=== PATIENT | male | born 1945 | race Caucasian/White ===

== ENCOUNTER 2018-02-18 11:42 | Day surgery (SDC) | payer OTHER ==
--- NOTE | 2018-02-17 13:51 | RAD REPORT ---
EXAM DESCRIPTION: RAD - Chest Pa And Lat (2 Views) - 02/17/2018 1:45 pm CLINICAL HISTORY: Hypertension COMPARISON: None. FINDINGS: The lungs are clear. The heart is mildly to moderately enlarged. Multi lead pacer/defibril lator device is present. No displaced fractures. Anterior thoracic spondylosis. IMPRESSION: Mild cardiomegaly.
[2018-02-17 14:13] LABS: Absolute Lymphocytes (CBC) 2.4 K/uL (0.7-4.9); Absolute Monocytes 0.4 K/uL (0.1-1.3); Absolute Neutrophil 4.1 K/uL (1.8-8.0); Basophils % 0.7 % (0-1.3); Eosinophils % 2.4 % (0-4.4); Hematocrit 45.5 % (39.6-49.0); Lymphocytes % 33.3 % (15.3-44.8); MCH 31.1 pg (27.0-35.0); MCV 91.8 fL (80-100); MPV 9.5 fL (7.6-11.3); Monocytes % 6.3 % (3.3-12.3); RBC Red Blood Cell Count 4.96 M/uL (4.33-5.43)
[2018-02-17 14:38] LABS: Protime INR 1.02
[2018-02-17 14:53] LABS: Urine Appearance CLEAR; Urine Bilirubin NEGATIVE (NEG); Urine Blood NEGATIVE (NEG); Urine Color YELLOW; Urine Glucose NEGATIVE (NEG); Urine Protein NEGATIVE (NEG); Urine Specific Gravity 1.015 (1.005-1.030); Urine Urobilinogen 0.2 mg/dL (0.2-1.0); Urine pH 5.5 (5.0-7.0)
[2018-02-17 14:54] LABS: Potassium 3.2 mEq/L (3.6-5.0)
[2018-02-17 15:02] LABS: Urine Microscopic Reflex NO UMIC
--- NOTE | 2018-02-18 07:00 | EKG ---
Test Date: 2018-02-17 Test Time: 13:35:33 [employer] Truck Mounted: RUDOLPH MEASUREMENT RESULTS: Intervals: Rate: 86 MO: 104 QRSD: 204 QT: 468 QTc: 560 [place]: P: 81 MO: 104 QRS: -85 T: 32 INTERPRETIVE STATEMENTS: Electronic ventricular pacemaker Compared to ECG 01/17/2016 19:42:36 No significant changes Electronically Signed On 02-18-18 07:00:08 CDT by David Whittaker
[2018-02-18] MEDS ORDERED: GENTAMICIN 80 MG/100 ML BAG 80 MG/100 ML BAG IV ONE (12:05)
[2018-02-18] MEDS ORDERED: Ringers Lactate 1,000 ML IV ONE (12:05)
[2018-02-18] MEDS ORDERED: MIDAZOLAM HCL 2 MG/2 ML INJ ONE (13:02)
[2018-02-18] MEDS ORDERED: LIDOCAINE 2% MPF 5 ML VIAL ONE (13:02)
[2018-02-18] MEDS ORDERED: PROPOFOL 200 MG/20 ML VIAL IV ONE (13:02)
[2018-02-18] MEDS ORDERED: FENTANYL CITR 100 MCG/2 ML ONE (13:02)
[2018-02-18] MEDS ORDERED: KETOROLAC 30 MG/ML INJ ONE (13:50)
== END 2018-02-18 16:09 | disposition home or self-care (01) ==
LOC: OR 11:42
PROVIDERS: ATTEND Urology
PROC: 0VT08ZZ Resection of Prostate, Via Natural or Artificial Opening Endoscopic (ICD-10-PCS; principal; 2018-02-18 13:15)
DX: N40.1 Benign prostatic hyperplasia with lower urinary tract symptoms (principal); R35.0 Frequency of micturition; Z95.0 Presence of cardiac pacemaker; N52.9 Male erectile dysfunction, unspecified
CPT/HCPCS: 36415; 52601; 71046; 80048; 81003; 85025; 85610; 85730; 86850; 86900; 86901; 87086; 87088; 88305; 93005; J1580; J2250; J3010

== ENCOUNTER 2019-11-11 09:48 | Inpatient (IN) | payer OTHER ==
--- NOTE | 2019-11-11 10:42 | RAD REPORT ---
EXAM DESCRIPTION: CT - CTHCSPWOC - 11/11/2019 10:32 am CLINICAL HISTORY: Trauma, head and neck injury. fall COMPARISON: No comparisons TECHNIQUE: Axial 5 mm thick images of the head were obtained. Axial 2 mm thick images of the cervical spine were obtained with sagittal and coronal reconstruction images generated and reviewed. All CT scans are performed using dose optimization technique as appropriate and may include automated exposure control or mA/KV adjustment according to patient size. FINDINGS: CT HEAD WITHOUT CONTRAST: No acute hemorrhage, hydrocephalus or extra-axial collection is identified.Moderate generalized brain atrophy is present with moderate periventricular and deep white matter chronic microvascular ischemi c changes.No areas of brain edema or midline shift. The paranasal sinuses and mastoids are clear.The calvarium is intact. CT CERVICAL SPINE WITHOUT CONTRAST: No fracture or subluxation.Prominent degenerative changes present mid cervical spine, ligamentous yoana cification is noted at C3-4.No prevertebral soft tissues swelling is identified. IMPRESSION: No acute intracranial or cervical spine findings.
[2019-11-11 11:29] LABS: Absolute Lymphocytes (CBC) 0.5 K/uL (0.7-4.9); Basophils % 0.2 % (0-1.3); Hematocrit 42.8 % (39.6-49.0); Lymphocytes % 5.6 % (15.3-44.8); MPV 9.2 fL (7.6-11.3); RBC Red Blood Cell Count 4.74 M/uL (4.33-5.43)
--- NOTE | 2019-11-11 11:29 | RAD REPORT ---
EXAM DESCRIPTION: RAD - Hip Left 2 View - 11/11/2019 11:20 am CLINICAL HISTORY: Multiple falls, left hip pain COMPARISON: None. FINDINGS: AP and frogleg views of the left hip were obtained. There is no fracture or dislocation. S ignificant degenerative changes are present. There is sclerotic change to the superior acetabulum wit h marginal spurring. Joint space is narrowed. There is subtle or early flattening of the left femoral head. No degenerative cystic changes confirmed. No fracture of the left hemipelvis. Lower lumbar degenerative changes are present. No soft tissue abnormality. IMPRESSION: Moderate severity left hip joint degenerative change as detailed. No fracture or acute f inding seen.
--- NOTE | 2019-11-11 11:29 | RAD REPORT ---
EXAM DESCRIPTION: RAD - Chest Single View - 11/11/2019 11:20 am CLINICAL HISTORY: Fever COMPARISON: January 2018 TECHNIQUE: AP portable chest image was obtained 1105 hours . FINDINGS: Lung volumes are low accentuating interstitial pattern. This also creates limited assessme nt of the retrocardiac left base. Pacemaker is in place. No focal consolidation seen in the right solitario g field or upper left lung field. Heart size is enlarged. Central vasculature is magnified by shallow inspiration. No measurable pleural effusion and no pneumothorax. No acute bony abnormality seen. No acute aortic findings suspected. IMPRESSION: Limited portable imaging without evidence for pneumonia or acute cardiopulmonary finding .
[2019-11-11 11:30] LABS: Protime INR 1.27
[2019-11-11 11:47] LABS: Albumin 3.9 g/dL (3.4-5.0); Bilirubin Direct 0.3 mg/dL (0-0.2); Bilirubin Total 1.2 mg/dL (0.2-1.0); CKMB Creatine Kinase MB 8.1 ng/mL (0.3-3.6); Protein, Total 6.9 g/dL (6.4-8.2); Troponin (Emerg Dept Use Only) 0.16 ng/mL (0.0-0.045)
[2019-11-11 11:49] LABS: Potassium 2.7 mmol/L (3.5-5.1)
[2019-11-11] MEDS ORDERED: KCL 20 MEQ/100 mL IVPB 20 MEQ/100 ML BAG IV ONE (12:11)
[2019-11-11] MEDS ORDERED: NA CHLORIDE 0.9% 500 ML ONE (12:11)
[2019-11-11 12:53] LABS: Urine Blood 2+ (NEG); Urine Glucose NEGATIVE (NEG); Urine Protein 2+ (NEG); Urine Specific Gravity >1.030 (1.005-1.030)
[2019-11-11 13:02] LABS: Urine Amorphous Sediment 2+ /HPF (NONE SEEN); Urine Bacteria <20 /HPF (NONE SEEN); Urine Culture Reflex Order REFLEXED
--- NOTE | 2019-11-11 13:20 | ER ---
Nurse's Notes [facility] Name: Schuyler Farris Jr Age: 74 yrs Sex: Male : 1945 Arrival Date: 11/11/2019 Time: 09:51 Bed 18 Private MD: Diagnosis: Hypokalemia;Weakness;Fall injury;Elevated troponin;Acute Renal Failure Presentation: 11/11 09:51 Presenting complaint: EMS states: Pt has had repeated falls the past few days, states ph that his knees are "giving out" causing falls, hx of magi knee replacements, lives alone, fell last night and was unable to get up, found family on floor at 0830 this morning, c/o L low back pain, describes as spasm. Transition of care: patient was not received from another setting of care. Onset of symptoms was November 11, 2019. Risk Assessment: Do you want to hurt yourself or someone else? Patient reports no desire to harm self or others. Initial Sepsis Screen: Does the patient meet any 2 criteria? No. Patient's initial sepsis screen is negative. Does the patient have a suspected source of infection? No. Patient's initial sepsis screen is negative. Care prior to arrival: Glucose check: 107. 09:51 Method Of Arrival: EMS: [facility] [place] [facility] ph 09:51 Acuity: JOSE 3 ph Historical: - Allergies: 09:57 Bactrim; ph 09:57 Tetanus Vaccines \\T\\ Toxoid; ph 09:53 Bactrim; rb1 - Home Meds: 09:53 sertraline 25 mg oral tab 1 tab once daily [Active]; labetalol 200 mg oral tab 1 tab 2 rb1 times per day [Active]; metolazone 2.5 mg oral tab 1 tab once daily [Active]; hydrochlorothiazide 25 mg oral tab 1 tab once daily [Active]; meclizine 25 mg oral tab 1 tab two times a week [Active]; baclofen 10 mg oral tab 1 tab 3 times per day [Active]; pravastatin 80 mg oral tab 1 tab once daily [Active]; tamsulosin 0.4 mg oral cp24 1 cap once daily [Active]; amlodipine-benazepril 5-20 mg oral cap 1 cap once daily [Active]; Benigno Aspirin 325 mg oral tab 1 tab once daily [Active]; - PMHx: 09:53 Hypertension; pacemaker/defibrilator; rb1 - PSHx: 09:53 Knee surgery; pacemaker; back; rb1 - Immunization history:: Adult Immunizations up to date. - Social history:: Smoking status: Patient/guardian denies using tobacco. - Ebola Screening: : Patient negative for fever greater than or equal to 101.5 degrees Fahrenheit, and additional compatible Ebola Virus Disease symptoms. Screenin:53 Abuse screen: Denies threats or abuse. Nutritional screening: No deficits noted. rb1 Tuberculosis screening: No symptoms or risk factors identified. Fall Risk Fall in past 12 months (25 points). Secondary diagnosis (15 points) had bilateral knee replacements in the past and pt. reports that both knees give him problems.. No IV (0 pts). Ambulatory Aid- None/Bed Rest/Nurse Assist (0 pts). Gait- Normal/Bed Rest/Wheelchair (0 pts) Mental Status- Oriented to own ability (0 pts). Total Pagan Fall Scale indicates Low Risk Score (25-44 pts). Fall prevention measures have been instituted. Side Rails Up X 2 Placed close to Nursing Station 1:1 attendant Assigned to Pt. Frequent Obs/Assesments occuring As available Patient and Family Educated on Fall Prevention Program and strategies. Assessment: 09:53 General: Appears in no apparent distress. comfortable, Behavior is calm, cooperative, rb1 Denies feeling ill, Pt. reports falling last night around 2200 because his knees gave out. Denies LOC or hitting his head. . Pain: Complains of pain in left low back Pain currently is 4 out of 10 on a pain scale. Quality of pain is described as spasm. Neuro: Level of Consciousness is awake, alert, obeys commands, Oriented to person, place, time, situation. Cardiovascular: Capillary refill < 3 seconds is brisk in bilateral fingers. Respiratory: Airway is patent Respiratory effort is even, unlabored, Respiratory pattern is regular, symmetrical. GI: No signs and/or symptoms were reported involving the gastrointestinal system. : No signs and/or symptoms were reported regarding the genitourinary system. Derm: Skin is pink, warm \\T\\ dry. Musculoskeletal: Range of motion: intact in all extremities. 10:53 Reassessment: Patient appears in no apparent distress at this time. No changes from rb1 previously documented assessment. 11:38 Reassessment: Patient appears in no apparent distress at this time. Patient and/or rb1 family updated on plan of care and expected duration. Pain level reassessed. Patient is alert, oriented x 3, equal unlabored respirations, skin warm/dry/pink. Pt. is slow to respond, but is A \\T\\ O x 4. Family remains at the pt. bedside. Provider aware of pt. condition. 12:35 Reassessment: Patient appears in no apparent distress at this time. No changes from rb1 previously documented assessment. 13:30 Reassessment: Patient appears in no apparent distress at this time. Pt. is resting with rb1 eyes closed, respirations even, unlabored. Call light within reach. 14:30 Reassessment: Patient appears in no apparent distress at this time. Patient and/or rb1 family updated on plan of care and expected duration. Pain level reassessed. Patient is alert, oriented x 3, equal unlabored respirations, skin warm/dry/pink. 15:19 Reassessment: Called report to LIZ Roach. Information from the [facility] was given. All [facility] questions asked and answered. 15:22 Reassessment: Called Jatinder \\Rebel\\ [phone] to inform him that his father was going [facility] upstairs to room 407. 15:29 Reassessment: Patient appears in no apparent distress at this time. No changes from rb1 previously documented assessment. Vital Signs: 09:53 BP 160 / 83; Pulse 78; Resp 19; Temp 100.2(O); Pulse Ox 96% on R/A; Weight 123.83 kg rb1 (R); Height 6 ft. 0 in. (182.88 cm) (R); Pain 4/10; 10:45 BP 127 / 85; Pulse 80; Resp 20; Temp 99.6(O); Pulse Ox 96% ; rb1 11:38 BP 141 / 76; Pulse 73; Resp 26; Temp 99.4(O); Pulse Ox 95% on R/A; rb1 12:35 BP 136 / 52; Pulse 82; Resp 22; Pulse Ox 95% on R/A; rb1 13:30 BP 132 / 81; Pulse 79; Resp 24; Pulse Ox 96% on R/A; rb1 14:30 BP 149 / 71; Pulse 70; Resp 17; Pulse Ox 100% on R/A; rb1 15:30 BP 158 / 73; Pulse 75; Resp 23; Pulse Ox 96% on R/A; rb1 09:53 Body Mass Index 37.03 (123.83 kg, 182.88 cm) rb1 [place] Coma Score: 10:24 Eye Response: spontaneous(4). Verbal Response: oriented(5). Motor Response: obeys la1 commands(6). Total: 15. ED Course: 09:51 Patient arrived in ED. ph 09:52 Shahnaz Eugene, RN is Primary Nurse. rb1 09:53 Patient has correct armband on for positive identification. Bed in low position. Call rb1 light in reach. Side rails up X2. Pulse ox on. NIBP on. 09:53 Arm band placed on right wrist. rb1 09:56 Triage completed. ph 09:59 El Ashby [facility]C [facility] la1 09:59 Herman Byrd MD is Attending Physician. la1 10:28 Flu Sent. rb1 10:32 CT Head C Spine In Process Unspecified. EDMS 10:40 Inserted saline lock: 20 gauge in right antecubital area, using aseptic technique. rb1 Blood collected. 11:14 EKG done, by dental laboratory technician apprentice. reviewed by El EASON. at1 11:21 Chest Single View XRAY In Process Unspecified. EDMS 11:21 Hip Left 2 View XRAY In Process Unspecified. EDMS 12:45 Straight cath inserted, using sterile technique, 16 Fr. Specimen obtained. Returned rb1 anitha urine. Patient tolerated well. 13:18 Pedro Shannon MD is Hospitalizing Provider. la1 15:37 No provider procedures requiring assistance completed. rb1 15:39 Patient admitted, IV remains in place. rb1 Administered Medications: 12:15 Drug: Potassium Chloride 20 mEq Route: IV; Rate: calculated rate; Site: right rb1 antecubital; 14:10 Follow up: Response: No adverse reaction; IV Status: Completed infusion rb1 12:15 Drug: NS 0.9% 500 ml Route: IV; Rate: bolus; Site: right antecubital; rb1 12:52 Follow up: IV Status: Completed infusion rb1 Outcome: 13:19 Decision to Hospitalize by Provider. la1 15:38 Admitted to Tele accompanied by tech, via stretcher, room 407, with chart, Report rb1 called to LIZ Roach 15:38 Condition: stable 15:38 Instructed on the need for admit. 15:39 Patient left the ED. rb1 Signatures: Dispatcher [employer] EDMS Estrella Palencia, halfway house counselor EKG Tat1 El Ashby, HR OPERATIONS ADVISOR-C HR OPERATIONS ADVISOR-Cla1 Roxana Tomlinson, RN RN Shahnaz Eugene, RN RN rb1 Corrections: (The following items were deleted from the chart) 10:04 09:53 General: Appears in no apparent distress. comfortable, Behavior is calm, rb1 cooperative, Denies feeling ill, rb1 13:03 11:38 Reassessment: Patient appears in no apparent distress at this time. Patient rb1 and/or family updated on plan of care and expected duration. Pain level reassessed. Patient is alert, oriented x 3, equal unlabored respirations, skin warm/dry/pink. Family at the bedside. rb1 13: 09:53 Home Meds: sertraline oral oral; rb1 rb1 13: 09:53 Home Meds: Labetalol Oral; rb1 rb1 13: 09:53 Home Meds: metolazone oral oral; rb1 rb1 13: 09:53 Home Meds: Hydrochlorothiazide Oral; rb1 rb1 13: 09:53 Home Meds: amlodipine oral; rb1 rb1 13: 09:53 Home Meds: Meclizine Oral; rb1 rb1 13: 09:53 Home Meds: Baclofen Oral; rb1 rb1 15:38 10:40 Inserted saline lock: 22 gauge in right antecubital area, using aseptic rb1 technique. Blood collected. rb1
--- NOTE | 2019-11-11 13:20 | EDPHYS ---
Physician Documentation [facility] Name: Schuyler Farris Jr Age: 74 yrs Sex: Male : 1945 Arrival Date: 11/11/2019 Time: 09:51 Bed 18 Private MD: ED Physician Herman Byrd HPI: 11/11 10:19 This 74 yrs old Male presents to ER via EMS with complaints of Fall Injury. la1 10:19 Details of fall: The patient fell from an upright position, while standing, and struck la1 wood alejandra. Onset: The symptoms/episode began/occurred today, yesterday. 10:21 Associated injuries: The patient sustained left hip, low back area. Severity of la1 symptoms: At their worst the symptoms were moderate. The patient has experienced similar episodes in the past. Family at bedside reports that the pt has been falling a lot lately, more in the last few months but fell three times yesterday and was on the floor for multiple hours. Pt states he feels like he gets a little dizzy but mostly that he feels like "my knees just give out", pt denies pain in knees. Pt is oriented x 4 but is a little slow to respond.. Historical: - Allergies: 09:57 Bactrim; ph 09:57 Tetanus Vaccines \\T\\ Toxoid; ph 09:53 Bactrim; rb1 - Home Meds: 09:53 sertraline 25 mg oral tab 1 tab once daily [Active]; labetalol 200 mg oral tab 1 tab 2 rb1 times per day [Active]; metolazone 2.5 mg oral tab 1 tab once daily [Active]; hydrochlorothiazide 25 mg oral tab 1 tab once daily [Active]; meclizine 25 mg oral tab 1 tab two times a week [Active]; baclofen 10 mg oral tab 1 tab 3 times per day [Active]; pravastatin 80 mg oral tab 1 tab once daily [Active]; tamsulosin 0.4 mg oral cp24 1 cap once daily [Active]; amlodipine-benazepril 5-20 mg oral cap 1 cap once daily [Active]; Benigno Aspirin 325 mg oral tab 1 tab once daily [Active]; - PMHx: 09:53 Hypertension; pacemaker/defibrilator; rb1 - PSHx: 09:53 Knee surgery; pacemaker; back; rb1 - Immunization history:: Adult Immunizations up to date. - Social history:: Smoking status: Patient/guardian denies using tobacco. - Ebola Screening: : Patient negative for fever greater than or equal to 101.5 degrees Fahrenheit, and additional compatible Ebola Virus Disease symptoms. ROS: 10:23 Eyes: Negative for injury, pain, redness, and discharge, ENT: Negative for injury, la1 pain, and discharge, Neck: Negative for injury, pain, and swelling. 10:23 Cardiovascular: Negative for chest pain, palpitations, and edema, Respiratory: Negative for shortness of breath, cough, wheezing, and pleuritic chest pain, Abdomen/GI: Negative for abdominal pain, nausea, vomiting, diarrhea, and constipation. 10:23 : Negative for injury, bleeding, discharge, and swelling. 10:23 Constitutional: Positive for chills, fever. 10:23 Cardiovascular: 10:23 Back: Positive for pain at rest, of the right low back. 10:23 : 10:23 MS/extremity: Positive for pain, of the left hip. 10:23 Neuro: Positive for dizziness. Exam: 10:24 Constitutional: The patient appears alert, awake, febrile, smells of urine, la1 uncomfortable. 10:24 Head/face: Exam is negative for acute changes, chamorro signs, contusion, deformity, ecchymosis, laceration(s), raccoon eyes. 10:24 Eyes: Periorbital structures: appear normal, Pupils: equal, round, and reactive to light and accomodation, Extraocular movements: intact throughout, Nystagmus: no acute changes. 10:24 ENT: External ear(s): are unremarkable, Nose: is normal. 10:24 Neck: C-spine: no acute changes, vertebral tenderness, is not appreciated, Trachea: is midline with no obvious abnormalities, no acute changes. 10:24 Chest/axilla: Inspection: pacemaker noted. 10:24 Cardiovascular: Rate: normal, Pulses: Pulses are 3+ in right radial artery and left radial artery. 10:24 Respiratory: the patient does not display signs of respiratory distress, Respirations: normal, Breath sounds: are clear throughout, Respiratory rate: 19 10:24 Abdomen/GI: Inspection: obese Bowel sounds: normal, Palpation: abdomen is soft and non-tender, in all quadrants. 10:24 Back: pain, that is moderate, of the low back area and left low back, CVA tenderness, is absent, vertebral tenderness, is not appreciated, muscle spasm, is appreciated in the left low back. 10:24 Neuro: Orientation: to person, place, time \\T\\ situation. Mentation: able to follow commands, slow to respond, Memory: immediate memory is impaired, Cranial nerves: CN II- XII are normal as tested, Facial palsy and sensory deficits are absent. Sensation: is normal. Vital Signs: 09:53 BP 160 / 83; Pulse 78; Resp 19; Temp 100.2(O); Pulse Ox 96% on R/A; Weight 123.83 kg rb1 (R); Height 6 ft. 0 in. (182.88 cm) (R); Pain 4/10; 10:45 BP 127 / 85; Pulse 80; Resp 20; Temp 99.6(O); Pulse Ox 96% ; rb1 11:38 BP 141 / 76; Pulse 73; Resp 26; Temp 99.4(O); Pulse Ox 95% on R/A; rb1 12:35 BP 136 / 52; Pulse 82; Resp 22; Pulse Ox 95% on R/A; rb1 13:30 BP 132 / 81; Pulse 79; Resp 24; Pulse Ox 96% on R/A; rb1 14:30 BP 149 / 71; Pulse 70; Resp 17; Pulse Ox 100% on R/A; rb1 15:30 BP 158 / 73; Pulse 75; Resp 23; Pulse Ox 96% on R/A; rb1 09:53 Body Mass Index 37.03 (123.83 kg, 182.88 cm) rb1 [place] Coma Score: 10:24 Eye Response: spontaneous(4). Verbal Response: oriented(5). Motor Response: obeys la1 commands(6). Total: 15. MDM: 10:00 Patient medically screened. la1 13:17 Data reviewed: vital signs, nurses notes, EKG, radiologic studies, I have discussed the la1 patient's presentation/case with the attending Emergency Department Physician; and as a result, I will admit patient. Data interpreted: Pulse oximetry: on room air is 95 %. Interpretation: acceptable. Counseling: I had a detailed discussion with the patient and/or guardian regarding: the historical points, exam findings, and any diagnostic results supporting the discharge/admit diagnosis, lab results, the need for further work-up and treatment in the hospital. Physician consultation: Pedro Shannon MD was called at 13:17, was contacted at 13:17, regarding admission, and will see patient. 11/11 10:16 Order name: Basic Metabolic Panel; Complete Time: 12:02 11/11 10:16 Order name: Blood Culture Adult (2) 11/11 10:16 Order name: CBC with Diff 11/11 10:16 Order name: Ckmb; Complete Time: 12:02 11/11 10:16 Order name: CPK; Complete Time: 12:02 11/11 10:16 Order name: Lactate; Complete Time: 11:32 11/11 10:16 Order name: LFT's; Complete Time: 12:02 11/11 10:16 Order name: Lipase; Complete Time: 12:02 11/11 10:16 Order name: Procalcitonin; Complete Time: 12:02 11/11 10:16 Order name: Protime (+inr); Complete Time: 11:32 11/11 10:16 Order name: Ptt, Activated; Complete Time: 11:32 11/11 10:16 Order name: Troponin (emerg Dept Use Only); Complete Time: 12:02 11/11 10:16 Order name: Urine Microscopic Only; Complete Time: 13:04 11/11 10:16 Order name: Flu; Complete Time: 11:32 11/11 10:16 Order name: Accucheck; Complete Time: 11:08 11/11 10:16 Order name: Chest Single View XRAY; Complete Time: 11:32 11/11 10:16 Order name: Cardiac monitoring; Complete Time: 10:58 11/11 10:16 Order name: EKG - Nurse/Tech; Complete Time: 11:08 11/11 10:16 Order name: IV Saline Lock - Large Bore; Complete Time: 10:45 11/11 10:16 Order name: Hip Left 2 View XRAY; Complete Time: 11:32 11/11 10:20 Order name: CT Head C Spine; Complete Time: 11:05 /16 10:57 Order name: Glucose, Ancillary Testing; Complete Time: 11:05 EDVT 11/11 11:43 Order name: CBC Smear Scan EDVT 11/11 12:06 Order name: BNP ss 11/11 12:39 Order name: Urine Dipstick--Ancillary (enter results); Complete Time: 13:04 em1 11/11 13:04 Order name: Urine Culture EDVT 11/11 14:39 Order name: CONS Pharmacy Consult [facility] 11/11 10:16 Order name: Labs collected and sent; Complete Time: 10:46 [facility] 11/11 10:16 Order name: O2 Per Protocol; Complete Time: 10:28 [facility] 11/11 10:16 Order name: O2 Sat Monitoring; Complete Time: 10:28 [facility] 11/11 10:16 Order name: Urine Dipstick-Ancillary (obtain specimen); Complete Time: 12:38 [facility] 11/11 13:12 Order name: Straight Cath; Complete Time: 13:12 rb1 Administered Medications: 12:15 Drug: Potassium Chloride 20 mEq Route: IV; Rate: calculated rate; Site: right rb1 antecubital; 14:10 Follow up: Response: No adverse reaction; IV Status: Completed infusion rb1 12:15 Drug: NS 0.9% 500 ml Route: IV; Rate: bolus; Site: right antecubital; rb1 12:52 Follow up: IV Status: Completed infusion rb1 Disposition: 18:30 Co-signature as Attending Physician, Herman Byrd MD. rn Disposition: 11/11/19 13:19 Hospitalization ordered by Pedro Shannon for Inpatient Admission. Preliminary diagnosis are Hypokalemia, Weakness, Fall injury, Elevated troponin, Acute Renal Failure. - Bed requested for Telemetry/MedSurg (Inpatient). - Status is Inpatient Admission. rb1 - Condition is Stable. - Problem is new. - Symptoms are unchanged. UTI on Admission? No Signatures: Dispatcher [employer] [facility] Ita Rangel RN RN kl Nieto, Roman, MD MD rn El Ashby, SHOE DRESSER-C SHOE DRESSER-Cla1 Roxana Tomlinson RN RN ph Barber, Rebecca, RN RN rb1 Corrections: (The following items were deleted from the chart) 10:23 10:17 Head Brain Wo Cont+CT.RAD.BRZ ordered. EDVT EDVT 13: 09:53 Home Meds: sertraline oral oral; rb1 rb1 13:30 09:53 Home Meds: Labetalol Oral; rb1 rb1 13: 09:53 Home Meds: metolazone oral oral; rb1 rb1 13: 09:53 Home Meds: Hydrochlorothiazide Oral; rb1 rb1 13: 09:53 Home Meds: amlodipine oral; rb1 rb1 13: 09:53 Home Meds: Meclizine Oral; rb1 rb1 13: 09:53 Home Meds: Baclofen Oral; rb1 rb1 15:04 13:19 Hospitalization Ordered by Pedro Shannon MD for Inpatient Admission. Preliminary kl diagnosis is Hypokalemia; Weakness; Fall injury; Elevated troponin; Acute Renal Failure. Bed requested for Telemetry/MedSurg (Inpatient). Status is Inpatient Admission. Condition is Stable. Problem is new. Symptoms are unchanged. UTI on Admission? No. la1 15:39 15:04 11/11/2019 13:19 Hospitalization Ordered by Pedro Shannon MD for Inpatient rb1 Admission. Preliminary diagnosis is Hypokalemia; Weakness; Fall injury; Elevated troponin; Acute Renal Failure. Bed requested for Telemetry/MedSurg (Inpatient). Status is Inpatient Admission. Condition is Stable. Problem is new. Symptoms are unchanged. UTI on Admission? No. kl
[2019-11-11 13:24] LABS: Anisocytosis 1+; Blood Morphology Comment NOTED (NOT SEEN); Platelet Estimate DECR; Urine White Blood Cell Casts OK
[2019-11-11] MEDS ORDERED: ONDANSETRON 4 MG/2 ML VIAL IV PRN (14:35)
--- NOTE | 2019-11-11 14:40 | P.HP ---
Certification for Inpatient Patient admitted to: Observation Practitioner: I am a practitioner with admitting privileges, knowledge of patient current condition, hospital course, and medical plan of care. Services: Services provided to patient in accordance with Admission requirements found in Title 42 Section 412.3 of the Code of Federal Regulations Patient History Date of Service: 11/11/19 Reason for admission: Repeated falls History of Present Illness: Mr. Farris is 74-year-old male with a history of hypertension who was brought in by family due to repeated falls. Patient has had mechanical falls in the past. over the past 3 days, patient has had a multiple falls daily. He reported that his legs just gave out on him when he falls. He denies any prodrome. He denies any chest pain. He has had generalized weakness and 3 days of no oral intake. Patient lives alone and was found on the floor today by family . He is currently very drowsy, minimally arousable therefore history was obtained from son who is currently at bedside. Allergies sulfamethoxazole [From Bactrim] Allergy (Unverified 02/17/18 13:15) Unknown tetanus toxoid, adsorbed Allergy (Verified 02/17/18 13:15) unknown trimethoprim [From Bactrim] Allergy (Unverified 02/17/18 13:15) Unknown Home medications list reviewed: Yes (At bedside. Awaiting upload to [facility]) Home Medications: Amlodipine Besylate/Benazepril [Amlodipine-Benazepril 5-20 mg] 1 each PO [id number] 02/17/18 Labetalol HCl [Trandate] 100 mg PO BID 02/17/18 Sertraline [Zoloft] 25 mg PO DAILY 02/17/18 hydroCHLOROthiazide [Hydrodiuril] 25 mg PO DAILY 02/17/18 - Past Medical/Surgical History Diabetic: No -: Cardiomegaly -: Hypertension -: Pacemaker -: Knee replacement - Social History Smoking Status: Unknown if ever smoked Alcohol use: No CD- Drugs: No Place of Residence: Home Review of Systems is unable to be obtained (Mental status) Physical Examination - Vital Signs Blood Pressure: 160/83 Pulse: 78 Respirations: 19 Pulse Ox (%): 96 - Physical Exam General: Obese, Other (Drowsy) HEENT: Atraumatic, PERRLA Neck: Supple, Other (Large neck circumference) Respiratory: Clear to auscultation bilaterally, Diminished Cardiovascular: Normal pulses, No murmurs, Edema (Trace bilateral pitting edema) Capillary refill: <2 Seconds Gastrointestinal: Normal bowel sounds, Soft and benign, Other (Obese) Musculoskeletal: No erythema, Tenderness Integumentary: No rashes Neurological: Other (unable to evaluate. Drowsy) Lymphatics: No axilla or inguinal lymphadenopathy - Studies Laboratory Data (last 24 hrs) 11/11/19 10:45: PT 14.9 H, INR 1.27, APTT 29.2 11/11/19 10:45: WBC 8.6, Hgb 14.7, Hct 42.8, Plt Count 131 L 11/11/19 10:45: Sodium 138, Potassium 2.7 L*, BUN 23 H, Creatinine 1.34 H, Glucose 89, Total Bilirubin 1.2 H, AST 92 H, ALT 50, Alkaline Phosphatase 76, Lipase 55 L Microbiology Data (last 24 hrs): 11/11/19 10:22 Nasopharnyx Influenza Type A Antigen Screen - Final 11/11/19 10:22 Nasopharnyx Influenza Type B Antigen Screen - Final Assessment and Plan - Plan Mr. Farris is 74 y/o male who presented after he was found on the floor. patient has had repeated falls within the past 3 days. #Falls- due to generalized weakness. Denies any prodrome or LOC - CT head is unremarkable for acute intracranial pathology -PT/OT -Treat underlying etiology #Rule out acute infection-Probable UTI- UA weakly positive. Patient with low grade temp on presentation -Urine culture and blood cultures are pending. elevated procal -IV hydration -IV antibiotics pending work up -chest Xray with no evidence of acute infection. will follow closely #Acute rhabdomyolysis- after the fall, patient laid on the floor for hours, until this morning. AST elevated. - UA suggestive. Low grade temp may be 2/2 diagnosis -IV hydration -Trend CK #Hypokalemia- Replace. Check mg #Hypovolemia-poor po intake for 3 days - IV hydration -monitor clinical response #JUANCHO- prerenal azotemia 2/2 hypovolemia. Cannot rule out rhabdo as etiology - IV hydration -trend cr and avoid nephrotoxin #Thrombocytopenia- monitor. #Probably VIKTOR- check ABG to rule out CO2 retention -CPAP at night if tolerable. #Troponin elevation- he denies any chest pain. Elevation is probably due to rhabdomyolysis -Trend troponin. EKG with pace rhythm. 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 - will need outpatient follow up with his pcp. DVT ppx-lovenox Patient is full code per son at bedside. will discuss more once he is awake and able to provide more information - Advance Directives Does patient have a Living Will: No Does patient have a Durable POA for Healthcare: No - Code Status/Comfort Care Code Status Assessed: Yes (addressed with son) Code Status: Full Code
[2019-11-11 16:25] LABS: Absolute Lymphocytes (CBC) 0.5 K/uL (0.7-4.9); Basophils % 0.2 % (0-1.3); Hematocrit 40.1 % (39.6-49.0); Lymphocytes % 7.8 % (15.3-44.8); MPV 8.7 fL (7.6-11.3); RBC Red Blood Cell Count 4.46 M/uL (4.33-5.43)
[2019-11-11] MEDS: CEFTRIAXONE/SWI 1gm 1 GM/10 ML SYR IVP SCH (16:30)
[2019-11-11] MEDS: NA CHLORIDE 0.9% 1,000 ML IV SCH (16:30)
[2019-11-11 16:37] LABS: Arterial Blood Carboxyhemoglob 1.7 % (0-1.5); Blood Gas Oxyhemoglobin 91.1 % (94-97); Blood O2 Saturation 93.3 % (92-98.5)
[2019-11-11 16:46] LABS: Troponin I 0.23 ng/mL (0.0-0.045)
[2019-11-11 16:47] LABS: Magnesium 1.3 mg/dL (1.8-2.4)
[2019-11-11] MEDS ORDERED: MAGNESIUM 50% 3 GM in NA CHLORIDE 0.9% 100 ML IV ONE (18:00)
[2019-11-11] MEDS: KCL 20 MEQ/100 mL IVPB 20 MEQ/100 ML BAG IV SCH ×2 (19:25→22:15)
[2019-11-12] MEDS: KCL 20 MEQ/100 mL IVPB 20 MEQ/100 ML BAG IV SCH ×5 (00:06→15:00)
[2019-11-12 07:54] LABS: Absolute Lymphocytes (CBC) 0.8 K/uL (0.7-4.9); Basophils % 0.4 % (0-1.3); Hematocrit 39.7 % (39.6-49.0); MPV 8.8 fL (7.6-11.3); RBC Red Blood Cell Count 4.39 M/uL (4.33-5.43)
--- NOTE | 2019-11-12 08:10 | EKG ---
Test Date: 2019-11-11 Test Time: 11:08:00 Electromechanical Inspector: MIKEY MEASUREMENT RESULTS: Intervals: Rate: 81 NM: 112 QRSD: 172 QT: 452 QTc: 525 [place]: P: NM: 112 QRS: 256 T: 72 INTERPRETIVE STATEMENTS: Electronic ventricular pacemaker Compared to ECG 02/17/2018 13:35:33 No significant changes Electronically Signed On 11-12-19 08:07:39 CHEMICAL DEPENDENCY COUNSELOR by Suresh Humphries
[2019-11-12 08:39] LABS: Urine White Blood Cell Casts OK
[2019-11-12 08:40] LABS: Blood Morphology Comment NOT SEEN (NOT SEEN); Platelet Estimate ADEQ
[2019-11-12] MEDS ORDERED: POTASSIUM CL SA 10 MEQ TAB PO ONE (08:56)
[2019-11-12] MEDS: CEFTRIAXONE/SWI 1gm 1 GM/10 ML SYR IVP SCH (09:18)
[2019-11-12] MEDS: NA CHLORIDE 0.9% 1,000 ML IV SCH ×3 (09:23→19:00)
--- NOTE | 2019-11-12 10:33 | P.PN ---
Subjective Date of Service: 11/12/19 Chief Complaint: Repeated falls Patient was seen and examined at bedside. He is more awake, slept with CPAP overnight. Now with rigors and chills Physical Examination - Vital Signs Temperature: 97.9 F Blood Pressure: 151/76 Pulse: 58 Respirations: 20 Pulse Ox (%): 97 - Physical Exam General: Alert, Mild distress, Obese HEENT: Atraumatic, Normocephalic, Other (Large neck circumference) Neck: Supple Respiratory: Diminished, Inspiratory wheezes Cardiovascular: Regular rate/rhythm, Normal S1 S2, Edema Capillary refill: <2 Seconds Gastrointestinal: Normal bowel sounds, Non-distended, No ascites Musculoskeletal: No clubbing, No warmth Integumentary: No rashes, No breakdown Neurological: Normal speech - Studies Laboratory Data (last 24 hrs) 11/11/19 10:45: PT 14.9 H, INR 1.27, APTT 29.2 11/11/19 10:45: WBC 8.6, Hgb 14.7, Hct 42.8, Plt Count 131 L 11/11/19 10:45: Sodium 138, Potassium 2.7 L*, BUN 23 H, Creatinine 1.34 H, Glucose 89, Total Bilirubin 1.2 H, AST 92 H, ALT 50, Alkaline Phosphatase 76, Lipase 55 L Microbiology Data (last 24 hrs): 11/11/19 10:55 Blood - Blood Gram Stain - Final 11/11/19 10:45 Blood - Blood Gram Stain - Final 11/11/19 10:22 Nasopharnyx Influenza Type A Antigen Screen - Final 11/11/19 10:22 Nasopharnyx Influenza Type B Antigen Screen - Final Microbiology 11/11/19 10:55 Blood - Blood Gram Stain - Final 11/11/19 10:45 Blood - Blood Gram Stain - Final 11/11/19 10:22 Nasopharnyx Influenza Type A Antigen Screen - Final 11/11/19 10:22 Nasopharnyx Influenza Type B Antigen Screen - Final 11/11/19 12:32 Clean Catch Urine [place] Count - Preliminary 11/11/19 12:32 Clean Catch Urine - Preliminary <10,000 CFU/ML. No growth. 11/11/19 10:55 Blood - Blood Aerobic Blood Culture - Preliminary 11/11/19 10:55 Blood - Blood Anaerobic Blood Culture - Preliminary No growth in 24 hours. 11/11/19 10:45 Blood - Blood Aerobic Blood Culture - Preliminary 11/11/19 10:45 Blood - Blood Anaerobic Blood Culture - Preliminary No growth in 24 hours. Medications List Reviewed: Yes Assessment And Plan - Plan Mr. Farris is 74 y/o male who presented after he was found on the floor. patient has had repeated falls within the past 3 days. #Falls- due to generalized weakness/electrolyte imbalance. Denies any prodrome or LOC - CT head is unremarkable for acute intracranial pathology -PT/OT -Treat underlying etiology #GPC in clusters bacteremia- patient with rigors this a.m. await final report of blood culture -TTE completed. - UA weakly positive. Patient with low grade temp on presentation -elevated procal -IV hydration -escalate abx. -obtain CT chest; repeat blood cx in a.m #Acute rhabdomyolysis- after the fall, patient laid on the floor for hours. AST elevated. - UA suggestive. Low grade temp may be 2/2 diagnosis -IV hydration -Trend CK #Hypokalemia- Replace. mg #Hypovolemia-poor po intake for 3 days - IV hydration -monitor clinical response #JUANCHO- prerenal azotemia 2/2 hypovolemia. Cannot rule out rhabdo as etiology - IV hydration -trend cr and avoid nephrotoxin -resolved #Thrombocytopenia- monitor. #Probably VIKTOR- -CPAP at night if tolerable. #Troponin elevation- he denies any chest pain. Elevation is probably due to rhabdomyolysis -Trend troponin. EKG with pace rhythm. -Pacemaker interrogated. -cardio on consult. 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 - will need outpatient follow up with his pcp. DVT ppx-lovenox Patient is full code per son at bedside. will discuss more once he is awake and able to provide more information
[2019-11-12] MEDS ORDERED: POTASSIUM CL 60 MEQ in NA CHLORIDE 0.9% 500 ML IV SCH (11:00)
[2019-11-12] MEDS ORDERED: VANCOMYCIN 3 GM in NA CHLORIDE 0.9% 500 ML IVPB ONE (11:00)
--- NOTE | 2019-11-12 12:14 | RAD REPORT ---
EXAM DESCRIPTION: CT - Chest Angio - 11/12/2019 11:54 am CLINICAL HISTORY: R/O Pnuthe, shortness of breath COMPARISON: Thorax W/ Con dated 03/03/2016; Chest Single View dated 11/11/2019 TECHNIQUE: Dynamically enhanced 3 mm thick images of the chest were obtained during administration o f approximately 150mL Isovue 370 IV contrast. Coronal and oblique MIP reconstruction images were gene rated and reviewed. Exam utilizes a protocol to evaluate the pulmonary arterial tree. All CT scans are performed using dose optimization technique as appropriate and may include automated exposure control or mA/KV adjustment according to patient size. FINDINGS: No pulmonary emboli are identified. Far peripheral branch assessment is limited due to res piratory motion. Suspicion for pulmonary embolic disease in these branches is very low. The aorta as imaged shows no acute or suspicious finding. Cardiomegaly is present without pericardial thickening or effusion. Left ventricular myocardial hypertrophy is suspected but CT accuracy is limi alex. Follow-up can be obtained as warranted. No focal mass or consolidation. Interstitial pattern is accentuated due to the motion. A mild interst itial edema or infiltrate could be present. Patient could have mild failure or volume overload. No pl eural effusion or pleural thickening. No mediastinal or hilar suspicious masses. No chest wall masses or abnormal axillary lymphadenopathy. Benign granulomatous type calcifications are present in the subcarinal region. IMPRESSION: No pulmonary emboli identified. No focal mass or consolidation. Respiratory motion further accentuates the interstitial pattern. Mild interstitial edema, infiltrate or failure findings are not excluded. Cardiomegaly is present along with suspected left ventricular myocardial hypertrophy.
[2019-11-12] MEDS: CEFEPIME/SWI 1gm 10 ML IV SCH ×2 (13:15→20:52)
[2019-11-12] MEDS ORDERED: MECLIZINE HCL 12.5 MG TAB PO PRN (13:16)
--- NOTE | 2019-11-12 15:14 | CON ---
Date of Consultation: 11/12/[address] Shannon on 11/11/2019. I saw the patient 11/12/2019. Reason For Consultation: Weakness, history of CHF. History Of Present Illness: Mr. Farris is 74 years old. He sees Dr. Garcia at [place]. He has castellanos d a pacemaker defibrillator for about 20 years. He has a history of hypertension and dyslipidemia. According to him, he had normal coronaries. He has never had a bypass surgery. He has idiopathic ca rdiomyopathy. He came in with just severe weakness, was found to have a potassium 2.7. His magnesiu m was low. He had a creatinine of 1.34. CPK was 3235 with MB of 8.1. His pO2 was 59, pCO2 was 27, pH of 7.56. Past Medical History: As stated above. Allergies: INCLUDE SULFA AND TETANUS. Review of Systems: Positive for falling and being unable to get up for hours. Medications: At home include Flomax, Zaroxolyn, hydrochlorothiazide, Pravachol, labetalol, and Lotre l. Physical Examination: General: He appeared to be in no acute distress, but still appeared to be weak. Vital Signs: He was in a paced rhythm. Afebrile. HEENT: Negative. Neck: Supple. No bruit, lymphadenopathy, JVD, or thyromegaly. Chest: Clear to auscultation and percussion. Cardiac: Revealed a paced rhythm. No murmurs, gallops, or rubs. Abdomen: Obese, but benign. Extremities: Revealed trace edema. No clubbing. No cyanosis. Diagnostic Data: As stated earlier. Impression And Plan: 1.Elevated CPK and MB and troponin secondary to rhabdomyolysis. 2.Elevated BNP secondary to rhabdomyolysis and chronic congestive heart failure. 3.Weakness secondary to hypokalemia and hypomagnesemia. 4.Elevated creatinine. 5.Urinary tract infection. 6.Congestive heart failure status post pacemaker, automated implantable cardioverter defibrillator. 7.Hypertension, well controlled. 8.Dyslipidemia, well controlled. Mr. Farris's medications are rather . He should not be on Zaroxolyn and hydrochlorothiazid e and Flomax. The patient will be set up for orthostatic hypotension as well as will be set up for e lectrolyte abnormalities. I would hydrate him gently. I will get an echocardiogram. I will correct his potassium and magnesium. I will stop the Zaroxolyn and hydrochlorothiazide for sure. I will di scuss the case further with the patient and with Dr. Shannon. JEREMY/ROSA Voice ID: [id number] Report ID: [id number]
[2019-11-12] MEDS ORDERED: PIPER/TAZO/NS 3.375gm 3.375 GM/100 ML BAG IVPB SCH (17:00)
[2019-11-12] MEDS: TAMSULOSIN 0.4 MG SR CAP PO SCH (20:52)
[2019-11-13] MEDS: NA CHLORIDE 0.9% 1,000 ML IV SCH ×4 (03:30→17:00)
[2019-11-13 07:26] LABS: Potassium 3.1 mmol/L (3.5-5.1)
[2019-11-13] MEDS: SERTRALINE HCL 50 MG TAB PO SCH (07:57)
[2019-11-13] MEDS: ASPIRIN 81 MG CHEWABLE TABLET PO SCH (07:58)
[2019-11-13] MEDS: CEFEPIME/SWI 1gm 10 ML IV SCH ×2 (08:00→20:30)
[2019-11-13] MEDS ORDERED: VANCOMYCIN 2 GM in NA CHLORIDE 0.9% 500 ML IVPB SCH (09:00)
[2019-11-13] MEDS ORDERED: VANCOMYCIN IVPB SCH (09:00)
[2019-11-13] MEDS ORDERED: NA CHLORIDE 0.9% IVPB SCH (09:00)
[2019-11-13 11:37] LABS: Absolute Lymphocytes (CBC) 1.4 K/uL (0.7-4.9); Basophils % 0.5 % (0-1.3); Hematocrit 41.1 % (39.6-49.0); Lymphocytes % 24.8 % (15.3-44.8); MPV 9.5 fL (7.6-11.3); RBC Red Blood Cell Count 4.52 M/uL (4.33-5.43)
[2019-11-13 11:58] LABS: Blood Morphology Comment NOT SEEN (NOT SEEN); Platelet Estimate DECR
--- NOTE | 2019-11-13 13:32 | P.PN ---
Subjective Date of Service: 11/13/19 Chief Complaint: Repeated falls Subjective: Tolerating diet, Ambulating, Improving Patient was seen and examined at bedside. He is more awake and sitting on the chair. Denies any pain/new symptom. Physical Examination - Vital Signs Temperature: 97.5 F Blood Pressure: 148/62 Pulse: 62 Respirations: 20 Pulse Ox (%): 96 - Physical Exam General: Alert, In no apparent distress, Obese HEENT: Atraumatic, PERRLA, EOMI Neck: Supple, JVD not distended Respiratory: Clear to auscultation bilaterally, Normal air movement Cardiovascular: Regular rate/rhythm, Normal S1 S2 Gastrointestinal: Normal bowel sounds, No tenderness Musculoskeletal: No tenderness Integumentary: No rashes Neurological: Normal speech, Normal tone, Normal affect Lymphatics: No axilla or inguinal lymphadenopathy - Studies Laboratory Tests 11/13/19 11/13/19 11/13/19 05:43 05:43 11:21 WBC 5.8 RBC 4.52 Hgb 13.9 Plt Count 88 L Sodium 140 Potassium 3.1 L BUN 22 H Creatinine 1.08 Calcium 8.8 Creatine Kinase 3085 H* Procalcitonin 1.79 H Microbiology Data (last 24 hrs): Microbiology 11/11/19 12:32 Clean Catch Urine [place] Count - Final 11/11/19 12:32 Clean Catch Urine - Final No growth. 11/11/19 10:55 Blood - Blood Gram Stain - Final 11/11/19 10:45 Blood - Blood Gram Stain - Final 11/11/19 10:55 Blood - Blood Aerobic Blood Culture - Preliminary 11/11/19 10:55 Blood - Blood Anaerobic Blood Culture - Preliminary 11/11/19 10:45 Blood - Blood Aerobic Blood Culture - Preliminary 11/11/19 10:45 Blood - Blood Anaerobic Blood Culture - Preliminary Medications List Reviewed: Yes Assessment And Plan - Plan Mr. Farris is 74 y/o male who presented after he was found on the floor. patient has had repeated falls within the past 3 days. #Falls- due to generalized weakness/electrolyte imbalance. Denies any prodrome or LOC - CT head is unremarkable for acute intracranial pathology -PT/OT -Treat underlying etiology #GPC in clusters bacteremia- patient had rigors, now improved with vancomycin. await final report of blood culture. source is uncertain -TTE completed. report pending - UA weakly positive. Patient with low grade temp on presentation -elevated procal -IV hydration -CT chest could not exclude infiltrates. -repeat Blood cultures pending. #Acute rhabdomyolysis- after the fall, patient laid on the floor for hours. AST elevated. - UA suggestive. Low grade temp may be 2/2 diagnosis -IV hydration -Trend CK #Hypokalemia- Replace. mg #Hypovolemia-poor po intake for 3 days - IV hydration -improved #JUANCHO- prerenal azotemia 2/2 hypovolemia. Cannot rule out rhabdo as etiology - IV hydration -trend cr and avoid nephrotoxin -resolved #Thrombocytopenia- monitor. #Probably VIKTOR- -CPAP at night if tolerable. #Troponin elevation- he denies any chest pain. Elevation is probably due to rhabdomyolysis -Trend troponin. EKG with pace rhythm. -Pacemaker interrogated. -cardio on consult. 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 - will need outpatient follow up with his pcp. DVT ppx-lovenox Patient is full code per son at bedside. will discuss more once he is awake and able to provide more information Dispo-pending repeat blood culture and further work up.
[2019-11-13] MEDS: HYDRALAZINE HCL 20 MG/ML VIAL IV PRN ×2 (16:29→23:26)
[2019-11-13] MEDS ORDERED: NA CHLORIDE 0.9% 1,000 ML IV SCH (17:00)
[2019-11-13] MEDS ORDERED: FUROSEMIDE 40 MG/4 ML VIAL IV ONE (17:00)
[2019-11-13] MEDS: TAMSULOSIN 0.4 MG SR CAP PO SCH (20:30)
[2019-11-13] MEDS ORDERED: HOME MED 1 EA UNK (Pravastatin Sodium [Pravastatin Sodium] 80 MG) PO SCH (21:00)
[2019-11-13] MEDS ORDERED: ATORVASTATIN 10 MG TAB PO SCH (21:00)
[2019-11-14] MEDS: NA CHLORIDE 0.9% 1,000 ML IV SCH ×2 (04:46→05:18)
[2019-11-14 06:28] VITALS: BMI 36.3
[2019-11-14 06:41] LABS: Absolute Lymphocytes (CBC) 1.2 K/uL (0.7-4.9); Basophils % 0.5 % (0-1.3); Hematocrit 38.7 % (39.6-49.0); Lymphocytes % 26.4 % (15.3-44.8); MPV 9.7 fL (7.6-11.3); RBC Red Blood Cell Count 4.34 M/uL (4.33-5.43)
[2019-11-14 07:23] LABS: Potassium 2.7 mmol/L (3.5-5.1)
[2019-11-14] MEDS ORDERED: POTASSIUM CL 60 MEQ in NA CHLORIDE 0.9% 500 ML IV SCH (09:00)
[2019-11-14] MEDS ORDERED: LABETALOL HCL 100 MG PO SCH (09:00)
[2019-11-14] MEDS ORDERED: AMLODIPINE 5 MG TAB PO SCH (09:00)
[2019-11-14] MEDS: ASPIRIN 81 MG CHEWABLE TABLET PO SCH (09:16)
[2019-11-14] MEDS: SERTRALINE HCL 50 MG TAB PO SCH (09:16)
[2019-11-14] MEDS ORDERED: levoFLOXacin 500 MG TAB PO SCH (10:00)
[2019-11-14] MEDS ORDERED: LABETALOL HCL 100 MG TAB PO SCH (10:00)
[2019-11-14] MEDS: KCL 20 MEQ/100 mL IVPB 20 MEQ/100 ML BAG IV SCH ×3 (10:10→15:21)
--- NOTE | 2019-11-14 11:04 | P.PN ---
Subjective Date of Service: 11/14/19 Primary Care Provider: Maris Vasquez NP([place]) ; Cardiology-Dr. Ferris([place]) Chief Complaint: Repeated falls Subjective: Improving Physical Examination - Vital Signs Temperature: 97.5 F Blood Pressure: 196/66 Pulse: 66 Respirations: 17 Pulse Ox (%): 96 - Physical Exam General: Alert, In no apparent distress, Cooperative HEENT: Atraumatic Neck: Supple Respiratory: Clear to auscultation bilaterally, Normal air movement Cardiovascular: Normal pulses, Regular rate/rhythm Neurological: Normal speech, Normal strength at 5/5 x4 extr, Normal tone, Normal affect - Studies Microbiology Data (last 24 hrs): 11/11/19 10:55 Blood - Blood Aerobic Blood Culture - Final Staphylococcus Lugd[place]ensis 11/11/19 10:55 Blood - Blood Gram Stain - Final 11/11/19 10:55 Blood - Blood Anaerobic Blood Culture - Final Staphylococcus Lugdunensis 11/11/19 10:55 Blood - Blood Gram Stain - Final 11/11/19 10:45 Blood - Blood Gram Stain - Final 11/11/19 10:45 Blood - Blood Gram Stain - Final 11/11/19 12:32 Clean Catch Urine [place] Count - Final 11/11/19 12:32 Clean Catch Urine - Final No growth. Medications List Reviewed: Yes Assessment & Plan Discharge Plan: Home Plan to discharge in: 24 Hours Physician Review Additional Text: Impression: Generalized weakness secondary to bacteremia, blood culture positive Staphylococcus Increased falls with acute rhabdomyolysis Acute renal injury with hypokalemia Thrombocytopenia Obstructive sleep apnea Hypertension Hyperlipidemia BPH Depression with anxiety Plan: Generalized weakness secondary to bacteremia, blood culture positive Staphylococcus: Blood cultures reviewed. Will adjust IV antibiotic to oral Levaquin. Continue with physical therapy. Fall precautions in place. Anticipate improvement over the next 24-48 hr. Will consult social sciences lecturer for possible home health and physical therapy at discharge. Likely home as early as tomorrow. Increased falls with acute rhabdomyolysis: CPK improvement. Will hold statin medication. Continue physical therapy. Will monitor closely. Encourage oral intake. Anticipate home with home health and physical therapy at discharge Acute renal injury with hypokalemia: Renal function improved. Electrolyte protocol in place. Medications reviewed and adjusted. Thrombocytopenia: Overall stable likely reactive from bacteremia. Obstructive sleep apnea: Continue with CPAP at night. Hypertension: Home medications reviewed and restarted. Continue monitor closely. Hyperlipidemia: Continue with medication. BPH: Continue with medication. Depression with anxiety: Continue with medication. Time Spent Managing Pts Care (In Minutes): 55
--- NOTE | 2019-11-14 12:57 | P.DS ---
Admission Date: 11/12/19 Discharge Date: 11/14/19 Primary Care Provider: Maris Vasquez NP([place]) ; Cardiology-Dr. Ferris([place]) Disposition: [facility] HOME/HOME HEALTH CARE Discharge Condition: GOOD Reason for Admission: Repeated falls Consultations: Cardiology-Dr. Whittaker Procedures: CT Head: COMPARISON: No comparisons TECHNIQUE: Axial 5 mm thick images of the head were obtained. Axial 2 mm thick images of the cervical spine were obtained with sagittal and coronal reconstruction images generated and reviewed. All CT scans are performed using dose optimization technique as appropriate and may include automated exposure control or mA/KV adjustment according to patient size. FINDINGS: CT HEAD WITHOUT CONTRAST: No acute hemorrhage, hydrocephalus or extra-axial collection is identified.Moderate generalized brain atrophy is present with moderate periventricular and deep white matter chronic microvascular ischemic changes.No areas of brain edema or midline shift. The paranasal sinuses and mastoids are clear.The calvarium is intact. CT CERVICAL SPINE WITHOUT CONTRAST: No fracture or subluxation.Prominent degenerative changes present mid cervical spine, ligamentous calcification is noted at C3-4.No prevertebral soft tissues swelling is identified. IMPRESSION: No acute intracranial or cervical spine findings. CT Chest: COMPARISON: Thorax W/ Con dated 03/03/2016; Chest Single View dated 11/11/2019 TECHNIQUE: Dynamically enhanced 3 mm thick images of the chest were obtained during administration of approximately 150mL Isovue 370 IV contrast. Coronal and oblique MIP reconstruction images were generated and reviewed. Exam utilizes a protocol to evaluate the pulmonary arterial tree. All CT scans are performed using dose optimization technique as appropriate and may include automated exposure control or mA/KV adjustment according to patient size. FINDINGS: No pulmonary emboli are identified. Far peripheral branch assessment is limited due to respiratory motion. Suspicion for pulmonary embolic disease in these branches is very low. The aorta as imaged shows no acute or suspicious finding. Cardiomegaly is present without pericardial thickening or effusion. Left ventricular myocardial hypertrophy is suspected but CT accuracy is limited. Follow-up can be obtained as warranted. No focal mass or consolidation. Interstitial pattern is accentuated due to the motion. A mild interstitial edema or infiltrate could be present. Patient could have mild failure or volume overload. No pleural effusion or pleural thickening. No mediastinal or hilar suspicious masses. No chest wall masses or abnormal axillary lymphadenopathy. Benign granulomatous type calcifications are present in the subcarinal region. IMPRESSION: No pulmonary emboli identified. No focal mass or consolidation. Respiratory motion further accentuates the interstitial pattern. Mild interstitial edema, infiltrate or failure findings are not excluded. Cardiomegaly is present along with suspected left ventricular myocardial hypertrophy. Hip Xray: COMPARISON: None. FINDINGS: AP and frogleg views of the left hip were obtained. There is no fracture or dislocation. Significant degenerative changes are present. There is sclerotic change to the superior acetabulum with marginal spurring. Joint space is narrowed. There is subtle or early flattening of the left femoral head. No degenerative cystic changes confirmed. No fracture of the left hemipelvis. Lower lumbar degenerative changes are present. No soft tissue abnormality. IMPRESSION: Moderate severity left hip joint degenerative change as detailed. No fracture or acute finding seen. Medical Problem List: Generalized weakness secondary to bacteremia, blood culture positive Staphylococcus Increased falls with acute rhabdomyolysis Acute renal injury with hypokalemia Thrombocytopenia likely reactive to infection Obstructive sleep apnea Hypertension Hyperlipidemia BPH Depression with anxiety Hypokalemia likely related to diuretic therapy Brief History of Present Illness: 74-year-old male presented to the emergency room with increased falls and fatigue. Patient was found to have rhabdomyolysis with possible infection. Patient was admitted for further evaluation and treatment. Hospital Course: Patient presented with generalized weakness. He is found to have bacteremia. Blood cultures positive for Staphylococcus. Patient has significantly improved with IV fluids and antibiotic therapy. Patient has been transition to oral Levaquin. Physical therapy has ambulated patient. Patient has done well with physical therapy. Will recommend home health and physical therapy at discharge. At discharge, Patient will continue with Levaquin 500 mg daily for total of 14 days. Patient will continue with home health and physical therapy at discharge as well. Recommend to recheck blood cultures after treatment to monitor resolution. This can be done with the help of his PCP. Fall precautions in place. Recommend follow up with his PCP in 1 week to follow up this hospitalization. As mentioned above patient found to have acute rhabdomyolysis due to increased falls. Patient received IV fluids. CPK has improved. Continue oral intake. Continue with home health and physical therapy at discharge. Recommend to recheck CPK, BMP in 1-2 weeks to monitors progress. Patient had acute renal injury upon admission with hypokalemia. This was likely related to his diuretic therapy. His diuretics were discontinued. Patient received IV fluids. This has improved. At discharge will recommend to discontinue hydrochlorothiazide and Zaroxolyn. Recommend to recheck lab-BMP in 1-2 weeks to monitor his progress. Patient with hypertension. Patient was on multiple medications including diuretic therapy. Patient seen and evaluated by Cardiology. Cardiology recommended to discontinue diuretic therapies. His overall blood pressure medications have been adjusted. Labetalol was decreased. At discharge he will continue with labetalol 100 mg twice daily and Norvasc/benazepril 5/20 mg daily. At discharge he will no longer use hydrochlorothiazide and Zaroxolyn. Patient is to monitor blood pressures daily. Recommend to maintain blood pressures less 150/80. Recommend to follow up with his alley cleaner within 1 week to follow up this hospitalization. Consider checking echocardiogram as an outpatient. Patient with hyperlipidemia. Patient will continue with his current medication pravastatin 80 mg daily. Patient with BPH. At discharge he will continue the medication Flomax 0.4 mg daily. Patient with depression with anxiety. At discharge he will continue with his medication Zoloft 25 mg daily. Other medication that had been discontinued included meclizine and baclofen. This may also contribute to weakness. Patient had hypokalemia. This was likely related to his diuretic therapy. Electrolytes replaced. Diuretic therapy have been discontinued. Vital Signs/Physical Exam: Temp Pulse Resp BP Pulse Ox 97.2 F 72 17 131/64 95 11/14/19 12:00 11/14/19 12:00 11/14/19 12:00 11/14/19 12:00 11/14/19 12:00 General: Alert, In no apparent distress, Oriented x3, Cooperative HEENT: Atraumatic Neck: Supple Respiratory: Clear to auscultation bilaterally, Normal air movement Cardiovascular: Normal pulses, Regular rate/rhythm Gastrointestinal: Normal bowel sounds, Soft and benign, Non-distended, No tenderness, No masses, No rebound, No guarding Musculoskeletal: No erythema, No tenderness, No warmth Integumentary: No tenderness/swelling, No erythema, No warmth, No cyanosis Neurological: Normal speech, Normal strength at 5/5 x4 extr, Normal tone, Normal affect Laboratory Data at Discharge: WBC 4.7 K/uL (4.3-10.9) D 11/14/19 06:16 Hgb 13.4 g/dL (13.6-17.9) L 11/14/19 06:16 Hct 38.7 % (39.6-49.0) L 11/14/19 06:16 Plt Count 95 K/uL (152-406) L 11/14/19 06:16 PT 14.9 SECONDS (9.5-12.5) H 11/11/19 10:45 INR 1.27 11/11/19 10:45 APTT 29.2 SECONDS (24.3-36.9) 11/11/19 10:45 Sodium 139 mmol/L (136-145) 11/14/19 06:16 Potassium 2.7 mmol/L (3.5-5.1) L* 11/14/19 06:16 BUN 16 mg/dL (7-18) 11/14/19 06:16 Creatinine 0.89 mg/dL (0.55-1.3) 11/14/19 06:16 Glucose 97 mg/dL (74-106) 11/14/19 06:16 Magnesium 2.1 mg/dL (1.8-2.4) 11/13/19 11:21 Total Bilirubin 1.2 mg/dL (0.2-1.0) H 11/11/19 10:45 AST 92 U/L (15-37) H 11/11/19 10:45 ALT 50 U/L (12-78) 11/11/19 10:45 Alkaline Phosphatase 76 U/L (45-117) 11/11/19 10:45 Troponin I 0.22 ng/mL (0.0-0.045) H 11/12/19 07:47 Lipase 55 U/L (73-393) L 11/11/19 10:45 Home Medications: Amlodipine Besylate/Benazepril [Amlodipine-Benazepril 5-20 mg] 1 each PO [id number] 02/17/18 Labetalol HCl [Trandate] 100 mg PO BID 02/17/18 Sertraline [Zoloft*] 25 mg PO DAILY 02/17/18 hydroCHLOROthiazide [Hydrodiuril*] 25 mg PO DAILY 02/17/18 Aspirin Chewable [Aspirin Chewable*] 81 mg PO DAILY 11/11/19 Labetalol HCl [Trandate] 200 mg PO BID 11/11/19 Pravastatin Sodium 80 mg PO BEDTIME 11/11/19 Tamsulosin HCl 0.4 mg PO BEDTIME 11/11/19 metOLazone [Zaroxolyn*] 2.5 mg PO DAILY 11/11/19 levoFLOXacin [Levaquin*] 500 mg PO DAILY #12 tab 11/14/19 New Medications: levoFLOXacin [Levaquin*] 500 mg PO DAILY #12 tab Patient Discharge Instructions: 1. Recommend follow up with his PCP in 1 week to follow up this hospitalization. 2. Patient presented with generalized weakness. He is found to have bacteremia. Blood cultures positive for Staphylococcus. Patient has significantly improved with IV fluids and antibiotic therapy. Patient has been transition to oral Levaquin. Physical therapy has ambulated patient. Patient has done well with physical therapy. Will recommend home health and physical therapy at discharge. At discharge, Patient will continue with Levaquin 500 mg daily for total of 14 days. Patient will continue with home health and physical therapy at discharge as well. Recommend to recheck blood cultures after treatment to monitor resolution. This can be done with the help of his PCP. Fall precautions in place. Recommend follow up with his PCP in 1 week to follow up this hospitalization. 3. As mentioned above patient found to have acute rhabdomyolysis due to increased falls. Patient received IV fluids. CPK has improved. Continue oral intake. Continue with home health and physical therapy at discharge. Recommend to recheck CPK, BMP in 1-2 weeks to monitors progress. 4. Patient had acute renal injury upon admission with hypokalemia. This was likely related to his diuretic therapy. His diuretics were discontinued. Patient received IV fluids. This has improved. At discharge will recommend to discontinue hydrochlorothiazide and Zaroxolyn. Recommend to recheck lab-BMP in 1-2 weeks to monitor his progress. 5. Patient with hypertension. Patient was on multiple medications including diuretic therapy. Patient seen and evaluated by Cardiology. Cardiology recommended to discontinue diuretic therapies. His overall blood pressure medications have been adjusted. Labetalol was decreased. At discharge he will continue with labetalol 100 mg twice daily and Norvasc/benazepril 5/20 mg daily. At discharge he will no longer use hydrochlorothiazide and Zaroxolyn. Patient is to monitor blood pressures daily. Recommend to maintain blood pressures less 150/80. Recommend to follow up with his alley cleaner within 1 week to follow up this hospitalization. Consider checking echocardiogram as an outpatient. 6. Patient with hyperlipidemia. Patient will continue with his current medication pravastatin 80 mg daily. 7. Patient with BPH. At discharge he will continue the medication Flomax 0.4 mg daily. 8. Patient with depression with anxiety. At discharge he will continue with his medication Zoloft 25 mg daily. 9. Other medication that had been discontinued included meclizine and baclofen. This may also contribute to weakness. 10. Patient had low potassium. This was replaced. This was likely related to his diuretic therapy. His diuretics have been discontinued. Diet: AHA Activity: Fall precautions Time spent managing pt's care (in minutes): 55
[2019-11-14 13:47] VITALS: O2SAT 95
[2019-11-14 16:18] VITALS: BP 147/76; TEMP 97.4
[2019-11-14] MEDS ORDERED: ENOXAPARIN 30 MG/0.3 ML SQ SCH (17:00)
--- NOTE | 2019-11-14 21:22 | PN ---
Date of Progress Note: 11/13/2019 Mr. Farris had been admitted with severe electrolyte abnormalities including hypokalemia, hypomagnese mela, weakness. Echocardiogram actually showed a normal ejection fraction without any wall motion abn ormalities. His electrolytes have been corrected. He is now off hydrochlorothiazide and Zaroxolyn. I would continue his present regimen. When he does go home, may be have him stay off the hydrochlor othiazide and Zaroxolyn. I am not so sure if he needs much in way of diuresis with his ejection frac tion being the way it is. He will follow up with Dr. Garcia in the near future. JEREMY/ROSA Voice ID: [id number] Report ID: [id number]
[2019-11-15] MEDS ORDERED: BENAZEPRIL 20 MG TAB PO SCH (06:00)
[2019-11-15] MEDS ORDERED: HOME MED 1 EA UNK (Amlodipine Besylate/Benazepril [Amlodipine-Benazepril 5-20 Mg] 1 EACH) PO SCH (06:00)
[2019-11-15] MEDS ORDERED: AMLODIPINE 5 MG TAB PO SCH (06:00)
[2019-11-15] MEDS ORDERED: BENAZEPRIL 10 MG TAB PO SCH (06:00)
--- NOTE | 2019-11-15 08:10 | ECHO ---
HEIGHT: 6 ft 0 in WEIGHT: 268 lb 1.6 oz DATE OF STUDY: 11/12/[address]: 2-DIMENSIONAL: YES M.MODE: YES DOPPLER: YES COLOR FLOW: YES TDS: YES PORTABLE: NO DEFINITY: NO BUBBLE STUDY: NO DIAGNOSIS: CONGESTIVE HEART FAILURE, AICD CARDIAC HISTORY: CATHERIZATION: NO SURGERY: NO PROSTHETIC VALVE: NO PACEMAKER: YES MEASUREMENTS (cm) DIASTOLIC (NORMALS) SYSTOLIC (NORMALS) IVSd 1.3 (0.6-1.2) LA Diam 4.5 (1.9-4.0) LVEF 59% LVIDd 5.1 (3.5-5.7) LVIDs 3.5 (2.0-3.5) %FS 31% LVPWd 1.4 (0.6-1.2) Ao Diam 3.3 (2.0-3.7) 2 DIMENSIONAL ASSESSMENT: RIGHT ATRIUM: NORMAL LEFT ATRIUM: DILATED RIGHT VENTRICLE: NORMAL LEFT VENTRICLE: LEFT VENTRICULAR HYPERTROPHY TRICUSPID VALVE: NORMAL MITRAL VALVE: NORMAL PULMONIC VALVE: NORMAL AORTIC VALVE: NORMAL PERICARDIAL EFFUSION: NONE AORTIC ROOT: NORMAL LEFT VENTRICULAR WALL MOTION: NORMAL DOPPLER/COLOR FLOW: NORMAL COMMENTS: LEFT ATRIAL ENLARGEMENT. LEFT VENTRICULAR HYPERTROPHY. NORMAL LEFT VENTRICULAR EJECTION FRACTION. NO THROMBUS. TECHNOLOGIST: Juanita GASTELUM
== END 2019-11-14 19:13 | disposition home health service (06) | DRG 872 ==
LOC: ER 09:48 → ERHOLD 14:35 → 4TH 15:23 → OBSVTOIN 11-12 11:05
PROVIDERS: ADMIT Hospitalist; ATTEND Hospitalist
DX: R78.81 Bacteremia (principal); M62.82 Rhabdomyolysis; N17.9 Acute kidney failure, unspecified; B95.7 Other staphylococcus as the cause of diseases classified elsewhere; E87.6 Hypokalemia; E86.1 Hypovolemia; E83.42 Hypomagnesemia; D69.6 Thrombocytopenia, unspecified; G47.33 Obstructive sleep apnea (adult) (pediatric); R79.89 Other specified abnormal findings of blood chemistry; I10 Essential (primary) hypertension; G31.84 Mild cognitive impairment of uncertain or unknown etiology; N40.0 Benign prostatic hyperplasia without lower urinary tract symptoms; Z91.81 History of falling; Z88.2 Allergy status to sulfonamides; Z88.7 Allergy status to serum and vaccine
CPT/HCPCS: 36415; 51702; 70450; 71045; 71275; 72125; 80048; 80076; 80202; 81003; 81015; 82550; 82553; 82805; 82947; 83605; 83690; 83735; 83880; 84132; 84145; 84484; 85025; 85610; 85730; 87040; 87077; 87086; 87088; 87186; 87205; 87804; 93280; 93306; 94660; 94760; 96365; 96366; 97112; 97116; 97161; 97530; 99285; G0378; J0360; J0692; J0696; J1940; J3475; J7030; J7040; Q9967

== ENCOUNTER 2019-12-06 13:38 | Inpatient (IN) | payer OTHER ==
--- NOTE | 2019-12-06 15:13 | RAD REPORT ---
EXAM DESCRIPTION: RAD - Lumbar Spine 3 Views - 12/06/2019 2:58 pm CLINICAL HISTORY: PAIN COMPARISON: No comparisons FINDINGS: A three-view lumbar spine examination was performed. Lumbar bodies are normal in height and alignment. No acute compression fractures seen. Patient has si gnificant disc space narrowing at L1-2 and L2-3 with associated large anterior and lateral endplate s purs. Spurring is seen elsewhere throughout the lumbar spine. Posterior L5-S1 disc space narrowing pr esent. There are prominent facet joint degenerative changes throughout the lumbar spine. Patient like ly has spinal stenosis and foraminal stenosis in the mid and lower lumbar spine. No pars defects iden tified. IMPRESSION: Advanced lumbar spine degenerative changes are present as detailed. No acute findings id entifiable.
--- NOTE | 2019-12-06 15:14 | RAD REPORT ---
EXAM DESCRIPTION: RAD - Shoulder Left 2 View - 12/06/2019 2:58 pm CLINICAL HISTORY: PAIN, fall, left-sided shoulder pain COMPARISON: No comparisons TECHNIQUE: Internal and external rotation views of the left shoulder were obtained. FINDINGS: There is no fracture or dislocation. AC joint degenerative changes are present with modera te-sized inferiorly directed clavicle spur. Acromial humeral joint space is narrowed. No acute or gentry picious findings. Pacemaker is seen in the left upper chest. IMPRESSION: Negative two-view left shoulder examination for fracture or dislocation. Moderate severity AC joint degenerative change.
[2019-12-06 15:23] LABS: Hematocrit 36.6 % (39.6-49.0); MPV 8.8 fL (7.6-11.3); RBC Red Blood Cell Count 4.07 M/uL (4.33-5.43)
[2019-12-06 15:37] LABS: Albumin 3.3 g/dL (3.4-5.0); Bilirubin Total 1.1 mg/dL (0.2-1.0); Potassium 3.9 mmol/L (3.5-5.1); Protein, Total 6.3 g/dL (6.4-8.2); Troponin (Emerg Dept Use Only) 0.06 ng/mL (0.0-0.045)
[2019-12-06 17:02] LABS: Albumin 3.2 g/dL (3.4-5.0); Bilirubin Direct 0.3 mg/dL (0-0.2); Bilirubin Total 1.4 mg/dL (0.2-1.0); Magnesium 1.7 mg/dL (1.8-2.4); Potassium 3.7 mmol/L (3.5-5.1); Protein, Total 6.5 g/dL (6.4-8.2)
[2019-12-06 17:04] LABS: CKMB Creatine Kinase MB 16.5 ng/mL (0.3-3.6)
[2019-12-06 17:25] LABS: Absolute Lymphocytes (CBC) 0.8 K/uL (0.7-4.9); Basophils % 0.2 % (0-1.3)
[2019-12-06] MEDS ORDERED: ACETAMINOPHEN 500 MG TAB PO PRN (17:40)
[2019-12-06] MEDS ORDERED: ALBUTEROL 2.5 MG/3 ML NEB SOL NEB PRN (17:40)
[2019-12-06] MEDS ORDERED: ONDANSETRON 4 MG/2 ML VIAL IV PRN (17:40)
--- NOTE | 2019-12-06 19:15 | ER ---
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 he sustained pain on his left flank and weakness on his right leg and pain on his left shoulder. denies LOC. Bgl -111 mg/dl. Transition of care: patient was not received from another setting of care. Onset of symptoms was December 06, 2019. Risk Assessment: Do you want to hurt yourself or someone else? Patient reports no desire to harm self or others. Initial Sepsis Screen: Does the patient meet any 2 criteria? No. Patient's initial sepsis screen is negative. Does the patient have a suspected source of infection? No. Patient's initial sepsis screen is negative. Care prior to arrival: None. 14:03 Acuity: JOSE 3 [facility] 18:35 Mechanism of Injury: Fall out of chair. Trauma event details: Injury occurred in the [address] Triage Assessment: 14:32 General: Appears in no apparent distress. comfortable, Behavior is calm, cooperative. mg2 Pain:. Trauma Activation: Not Applicable Physician: ED Physician; Name: ; Notified At: ; Arrived At: Physician: General Surgeon; Name: ; Notified At: ; Arrived At: Physician: Radiology; Name: ; Notified At: ; Arrived At: Physician: Respiratory; Name: ; Notified At: ; Arrived At: Physician: Lab; Name: ; Notified At: ; Arrived At: Historical: - Allergies: 14:32 Bactrim; mg2 14:32 Tetanus Vaccines \T\ Toxoid; mg2 - Home Meds: 14:32 amlodipine-benazepril 5-20 mg Oral cap 1 cap once daily [Active]; Benigno Aspirin 325 mg mg2 Oral tab 1 tab once daily [Active]; pravastatin 80 mg Oral tab 1 tab once daily [Active]; sertraline 25 mg Oral tab 1 tab once daily [Active]; labetalol 200 mg Oral tab 1 tab 2 times per day [Active]; 18:38 baclofen 10 mg Oral tab 1 tab 3 times per day [Active]; mg2 - PMHx: 14:32 Hypertension; pacemaker/defibrilator; Hyperlipidemia; mg2 - PSHx: 14:32 back, knee and lebow sx; mg2 - Immunization history:: Flu vaccine is up to date. - Coronavirus screen:: The patient has NOT traveled to [place], [place], or [place] in the past 14 days. Proceed with normal triage process as indicated. - Social history:: Patient/guardian denies using The patient lives with family, Smoking status: Patient denies any tobacco usage or history of. Patient/guardian denies using alcohol, street drugs, IV drugs. - Immunization history: Last tetanus immunization: none per patient choice. - Family history:: not pertinent. - Ebola Screening: : No symptoms or risks identified at this time. Screenin:35 Abuse screen: Denies threats or abuse. Denies injuries from another. Nutritional mg2 screening: No deficits noted. Tuberculosis screening: No symptoms or risk factors identified. Fall risk At risk due to prior history of falls. 18:35 Fall Risk Fall in past 12 months (25 points). IV access (20 points). Ambulatory Aid- mg2 None/Bed Rest/Nurse Assist (0 pts). Gait- Normal/Bed Rest/Wheelchair (0 pts). Primary Survey: 14:35 NO uncontrolled hemorrhage observed. A: The patient is alert. Airway: patent. mg2 Breathing/Chest: Respiratory pattern: regular, Respiratory effort: spontaneous, unlabored, Breath sounds: clear, Chest inspection: symmetrical rise and fall of the chest. Circulation: Skin color: pink. Disability Alert. Exposure/Environment: All clothing and personal items were removed. Forensic evidence collection is not deemed to be indicated at this time. Items placed in patient belonging bag. There is no evidence of uncontrolled external bleeding. No obvious injuries are noted at this time. A warming method has been applied: A warm blanket has been provided to the patient. 18:34 Reassessment Airway Airway Patent Oxygen Nasal cannula Breathing/Chest Respiratory mg2 pattern Regular Respiratory effort Spontaneous Unlabored Breath sounds Clear Circulation Heart rhythm Paced Color [place] Disability Alert. Secondary Survey: 14:35 HEENT: No deficits noted. Gastrointestinal: No deficits noted. : No signs and/or mg2 symptoms were reported regarding the genitourinary system. Musculoskeletal: Reports pain in left arm, right leg and back. Assessment: 14:36 General: Appears in no apparent distress. comfortable, Behavior is calm, cooperative. mg2 Pain: Complains of pain in back and right leg and left arm. Neuro: Level of Consciousness is awake, alert, obeys commands, Oriented to person, place, time, situation. EENT: No signs and/or symptoms were reported regarding the EENT system. Cardiovascular: Capillary refill < 3 seconds Patient's skin is warm and dry. Respiratory: Airway is patent Respiratory effort is even, unlabored, Respiratory pattern is regular, symmetrical. GI: No signs and/or symptoms were reported involving the gastrointestinal system. : No signs and/or symptoms were reported regarding the genitourinary system. Derm: Skin is intact, is healthy with good turgor, Skin is pink, warm \T\ dry. normal. Musculoskeletal: Circulation, motion, and sensation intact. Capillary refill < 3 seconds. 19:02 Reassessment: Patient appears in no apparent distress at this time. Patient and/or jb4 family updated on plan of care and expected duration. Pain level reassessed. Patient is alert, oriented x 3, equal unlabored respirations, skin warm/dry/pink. Family is at the bedisde. 19:17 Reassessment: Report called to LIZ Marroquin. Pt reports back pain 08/05, provider tea notified, see MAR for orders. 19:38 Reassessment: Patient appears in no apparent distress at this time. Patient and/or jb4 family updated on plan of care and expected duration. Pain level reassessed. Patient is alert, oriented x 3, equal unlabored respirations, skin warm/dry/pink. Pt transferred to room 201 via stretcher with photo optics technician. Vital Signs: 14:31 BP 152 / 70; Pulse 86; Resp 17; Temp 98.6; Pulse Ox 100% on R/A; Height 6 ft. 0 in. mg2 (182.88 cm); 15:50 BP 146 / 74; Pulse 85; Resp 18; Pulse Ox 98% on 3 lpm NC; mg2 19:00 BP 149 / 102; Pulse 82; Resp 20; Pulse Ox 100% on 2 lpm NC; jb4 19:30 BP 154 / 94; Pulse 92; Resp 19; Temp 99.2(O); Pulse Ox 100% on 2 lpm NC; jb4 [place] Coma Score: 15:50 Eye Response: spontaneous(4). Verbal Response: oriented(5). Motor Response: obeys mg2 commands(6). Total: 15. 19:00 Eye Response: spontaneous(4). Verbal Response: oriented(5). Motor Response: obeys jb4 commands(6). Total: 15. Trauma Score (Adult): 15:50 Eye Response: spontaneous(1); Verbal Response: oriented(1); Motor Response: obeys mg2 commands(2); Systolic BP: > 89 mm Hg(4); Respiratory Rate: 10 to 29 per min(4); Juwan Score: 15; Trauma Score: 12 19:00 Eye Response: spontaneous(1); Verbal Response: oriented(1); Motor Response: obeys jb4 commands(2); Systolic BP: > 89 mm Hg(4); Respiratory Rate: 10 to 29 per min(4); [place]elle Score: 15; Trauma Score: 12 ED Course: 14:03 Patient arrived in ED. rv 14:03 Alexei Acosta MD is Attending Physician. ma2 14:28 Román Aquino RN is Primary Nurse. mg2 14:30 Inserted saline lock: 22 gauge in right antecubital area, using aseptic technique. mg2 Blood collected. 14:31 Triage completed. mg2 14:31 Arm band placed on. mg2 14:36 Patient has correct armband on for positive identification. mg2 14:36 Patient maintains SpO2 saturation greater than 95% on room air. mg2 14:36 No provider procedures requiring assistance completed. mg2 14:57 X-ray completed. Patient tolerated procedure well. Patient moved back from radiology. jb2 16:38 Joselyn Lin MD is Hospitalizing Provider. ma2 18:36 Thermoregulation: warm blanket given to patient. mg2 19:40 Patient admitted, IV remains in place. jb4 Administered Medications: 19:31 Drug: [place] 5 mg-325 mg 1 tabs Route: PO; jb4 19:31 Follow up: Response: Medication administered at discharge. jb4 Intake: 15:50 PO: 0ml; Total: 0ml. mg2 Outcome: 16:38 Decision to Hospitalize by Provider. ma2 19:40 Admitted to Med/surg accompanied by tech, via stretcher, room 201, with oxygen, with jb4 chart, Report called to LIZ Marroquin 19:40 Condition: stable 19:40 Discharge instructions given to patient, family, Instructed on the need for admit, Demonstrated understanding of instructions. 19:42 Patient's length of stay in the Emergency Department was greater than 2 hours. PT jb4 admitted.Patient's length of stay extended due to 19:44 Patient left the ED. jb4 Signatures: Eduardo Summers2 Leonard Alicea, RN RN jb4 Alexei Acosta MD MD ma2 Román Aquino, RN RN mg2 Thad Croft RN RN rv Corrections: (The following items were deleted from the chart) 19:54 19:00 BP 149 / 102; Pulse 82bpm; Resp 20bpm; Pulse Ox 100% RA; jb4 jb4
--- NOTE | 2019-12-06 19:16 | EDPHYS ---
Physician Documentation [facility] Name: Schuyler Farris Jr Age: 74 yrs Sex: Male : 1945 Arrival Date: 12/06/2019 Time: 14:03 Bed 14 Private MD: ED Physician Alexei Acosta HPI: 12/06 14:57 This 74 yrs old Male presents to ER via EMS with complaints of lower back ma2 pain. 14:57 tripped and fell setting on lower back pain . Onset: The symptoms/episode ma2 began/occurred suddenly, 1 hour(s) ago. Severity of symptoms: At their worst the symptoms were mild in the emergency department the symptoms are unchanged. The patient has experienced similar episodes in the past. Historical: - Allergies: 14:32 Bactrim; mg2 14:32 Tetanus Vaccines \T\ Toxoid; mg2 - Home Meds: 14:32 amlodipine-benazepril 5-20 mg Oral cap 1 cap once daily [Active]; Benigno Aspirin 325 mg mg2 Oral tab 1 tab once daily [Active]; pravastatin 80 mg Oral tab 1 tab once daily [Active]; sertraline 25 mg Oral tab 1 tab once daily [Active]; labetalol 200 mg Oral tab 1 tab 2 times per day [Active]; 18:38 baclofen 10 mg Oral tab 1 tab 3 times per day [Active]; mg2 - PMHx: 14:32 Hypertension; pacemaker/defibrilator; Hyperlipidemia; mg2 - PSHx: 14:32 back, knee and lebow sx; mg2 - Immunization history:: Flu vaccine is up to date. - Coronavirus screen:: The patient has NOT traveled to [place], [place], or [place] in the past 14 days. Proceed with normal triage process as indicated. - Social history:: Patient/guardian denies using The patient lives with family, Smoking status: Patient denies any tobacco usage or history of. Patient/guardian denies using alcohol, street drugs, IV drugs. - Immunization history: Last tetanus immunization: none per patient choice. - Family history:: not pertinent. - Ebola Screening: : No symptoms or risks identified at this time. ROS: 14:57 Constitutional: Negative for fever, chills, and weight loss. ma2 14:57 All other systems are negative. Exam: 14:57 Constitutional: This is a well developed, well nourished patient who is awake, alert, ma2 and in no acute distress. Head/Face: Normocephalic, atraumatic. Eyes: Pupils equal round and reactive to light, extra-ocular motions intact. Lids and lashes normal. Conjunctiva and sclera are non-icteric and not injected. Cornea within normal limits. Periorbital areas with no swelling, redness, or edema. ENT: Nares patent. No nasal discharge, no septal abnormalities noted. Tympanic membranes are normal and external auditory canals are clear. Oropharynx with no redness, swelling, or masses, exudates, or evidence of obstruction, uvula midline. Mucous membranes moist. Neck: Trachea midline, no thyromegaly or masses palpated, and no cervical lymphadenopathy. Supple, full range of motion without nuchal rigidity, or vertebral point tenderness. No Meningismus. Chest/axilla: Normal chest wall appearance and motion. Nontender with no deformity. No lesions are appreciated. Cardiovascular: Regular rate and rhythm with a normal S1 and S2. No gallops, murmurs, or rubs. Normal PMI, no JVD. No pulse deficits. Respiratory: Lungs have equal breath sounds bilaterally, clear to auscultation and percussion. No rales, rhonchi or wheezes noted. No increased work of breathing, no retractions or nasal flaring. Abdomen/GI: Soft, non-tender, with normal bowel sounds. No distension or tympany. No guarding or rebound. No evidence of tenderness throughout. Back: No spinal tenderness. No costovertebral tenderness. Full range of motion. Skin: Warm, dry with normal turgor. Normal color with no rashes, no lesions, and no evidence of cellulitis. MS/ Extremity: Pulses equal, no cyanosis. Neurovascular intact. Full, normal range of motion. Neuro: Awake and alert, GCS 15, oriented to person, place, time, and situation. Cranial nerves II-XII grossly intact. Motor strength 5/5 in all extremities. Sensory grossly intact. Cerebellar exam normal. Normal gait. Vital Signs: 14:31 BP 152 / 70; Pulse 86; Resp 17; Temp 98.6; Pulse Ox 100% on R/A; Height 6 ft. 0 in. mg2 (182.88 cm); 15:50 BP 146 / 74; Pulse 85; Resp 18; Pulse Ox 98% on 3 lpm NC; mg2 19:00 BP 149 / 102; Pulse 82; Resp 20; Pulse Ox 100% on 2 lpm NC; jb4 19:30 BP 154 / 94; Pulse 92; Resp 19; Temp 99.2(O); Pulse Ox 100% on 2 lpm NC; jb4 [place] Coma Score: 15:50 Eye Response: spontaneous(4). Verbal Response: oriented(5). Motor Response: obeys mg2 commands(6). Total: 15. 19:00 Eye Response: spontaneous(4). Verbal Response: oriented(5). Motor Response: obeys jb4 commands(6). Total: 15. Trauma Score (Adult): 15:50 Eye Response: spontaneous(1); Verbal Response: oriented(1); Motor Response: obeys mg2 commands(2); Systolic BP: > 89 mm Hg(4); Respiratory Rate: 10 to 29 per min(4); Juwan Score: 15; Trauma Score: 12 19:00 Eye Response: spontaneous(1); Verbal Response: oriented(1); Motor Response: obeys jb4 commands(2); Systolic BP: > 89 mm Hg(4); Respiratory Rate: 10 to 29 per min(4); Juwan Score: 15; Trauma Score: 12 MDM: 14:03 Patient medically screened. ma2 14:57 Differential Diagnosis spine fracture, vs disc prolapse vs muscle sprain . Data ma2 reviewed: vital signs, nurses notes. Counseling: I had a detailed discussion with the patient and/or guardian regarding: the historical points, exam findings, and any diagnostic results supporting the discharge/admit diagnosis, the presence of at least one elevated blood pressure reading (>120/80) during this emergency department visit, radiology results, the need for outpatient follow up. Response to treatment: the patient's symptoms have markedly improved after treatment. 12/06 14:07 Order name: CMP or2 12/06 14:07 Order name: CBC w/o diff or2 12/06 14:07 Order name: Troponin (emerg Dept Use Only) [facility] 12/06 15:24 Order name: CBC without Diff; Complete Time: 15:29 EDMS 12/06 15:38 Order name: Comprehensive Metabolic Panel; Complete Time: 16:02 EDMS 12/06 15:38 Order name: Troponin (Emerg Dept Use Only); Complete Time: 16:02 EDMS 12/06 16:04 Order name: Basic Metabolic Panel or2 12/06 16:04 Order name: CBC with Diff or2 12/06 16:04 Order name: Ckmb or2 12/06 16:04 Order name: CPK or2 12/06 16:04 Order name: Hepatic Function or2 12/06 16:04 Order name: Lipase [facility] 12/06 16:04 Order name: Magnesium or2 12/06 16:04 Order name: Ptt, Activated or2 12/06 14:07 Order name: Lumbar Spine (3 Views) XRAY or2 12/06 14:07 Order name: Shoulder Left (2 View) XRAY or2 12/06 15:44 Order name: RAD; Complete Time: 16:02 EDMS 12/06 15:44 Order name: RAD; Complete Time: 16:02 EDMS 12/06 16:04 Order name: EKG; Complete Time: 16:07 [facility] 12/06 16:04 Order name: Cardiac monitoring; Complete Time: 17:04 or2 12/06 16:04 Order name: EKG - Nurse/Tech; Complete Time: 17:04 or2 12/06 18:54 Order name: PTT, Activated Partial Thromb [facility] 12/06 19:04 Order name: Basic Metabolic Panel [facility] 12/06 19:04 Order name: Liver (Hepatic) Function [facility] 12/06 19:05 Order name: Creatine Phosphokinase [facility] 12/06 19:05 Order name: CKMB Creatine Kinase MB [facility] 12/06 19:05 Order name: Magnesium [facility] 12/06 19:05 Order name: Lipase [facility] 12/06 19:08 Order name: CBC with Automated Diff [facility] 12/06 16:04 Order name: IV Saline Lock; Complete Time: 17:04 or2 12/06 16:04 Order name: Labs collected and sent; Complete Time: 17:04 or2 12/06 16:04 Order name: NPO; Complete Time: 17:04 or2 12/06 16:04 Order name: O2 Per Protocol; Complete Time: 17:04 or2 12/06 16:04 Order name: O2 Sat Monitoring; Complete Time: 17:04 ma2 Administered Medications: 19:31 Drug: [place] 5 mg-325 mg 1 tabs Route: PO; jb4 19:31 Follow up: Response: Medication administered at discharge. jb4 Disposition: 12/06/19 16:38 Hospitalization ordered by Joselyn Lin for Inpatient Admission. Preliminary diagnosis are Syncope and collapse, Low back pain, Non-ST elevation (NSTEMI) myocardial infarction. - Bed requested for Telemetry/MedSurg (Inpatient). - Status is Inpatient Admission. jb4 - Condition is Stable. - Problem is new. - Symptoms are unchanged. Signatures: Dispatcher [employer] EDMS Sol Rivers James, RN RN jb4 Alexei Acosta MD MD ma2 Román Aquino RN RN mg2 Corrections: (The following items were deleted from the chart) 18:46 16:38 Hospitalization Ordered by Joselyn Lin MD for Inpatient Admission. Preliminary bd diagnosis is Syncope and collapse; Low back pain; Non-ST elevation (NSTEMI) myocardial infarction. Bed requested for Telemetry/MedSurg (Inpatient). Status is Inpatient Admission. Condition is Stable. Problem is new. Symptoms are unchanged. ma2 19:44 18:46 12/06/2019 16:38 Hospitalization Ordered by Joselyn Lin MD for Inpatient Admission. jb4 Preliminary diagnosis is Syncope and collapse; Low back pain; Non-ST elevation (NSTEMI) myocardial infarction. Bed requested for Telemetry/MedSurg (Inpatient). Status is Inpatient Admission. Condition is Stable. Problem is new. Symptoms are unchanged. bd
[2019-12-06] MEDS ORDERED: HYDROCODONE/APAP 5/325 MG TAB ONE (19:29)
[2019-12-06] MEDS: NA CHLORIDE 0.9% 1,000 ML IV SCH (20:13)
[2019-12-06] MEDS: ENOXAPARIN 40 MG/0.4 ML SQ SCH (20:13)
[2019-12-06 20:33] LABS: Urine Appearance CLOUDY; Urine Blood 3+ (NEG); Urine Color DK YELLOW; Urine Glucose NEGATIVE (NEG); Urine Protein 2+ (NEG); Urine Specific Gravity 1.025 (1.005-1.030); Urine Urobilinogen 0.2 mg/dL (0.2-1.0); Urine pH 5.5 (5.0-7.0)
[2019-12-06 20:38] LABS: Urine Bilirubin NEGATIVE (NEG); Urine Microscopic Reflex ORDER UMIC
[2019-12-06 20:49] LABS: Urine Amorphous Sediment 2+ /HPF (NONE SEEN); Urine Bacteria >50 /HPF (NONE SEEN); Urine Coarse Granular Casts 0-5 /LPF (NONE SEEN); Urine Culture Reflex Order REFLEXED; Urine Mucus 2+ /HPF (NONE SEEN)
[2019-12-06] MEDS ORDERED: MAGNESIUM SULFATE 1 gm IVPB 1 GM/100 ML BAG IV ONE (22:55)
[2019-12-06] MEDS ORDERED: POTASSIUM CL SA 10 MEQ TAB PO ONE (22:55)
[2019-12-06] MEDS: HYDROCODONE/APAP 10/325 TAB PO PRN (23:35)
--- NOTE | 2019-12-07 03:44 | HP ---
Date of Admission: 12/06/2019 Chief Complaint: Frequent falls. History Of Present Illness: This patient is a 74-year-old male who presented for frequent fall. He is a poor historian and the information is from both the patient and his son. In brief, he has a history of frequent fall, rhabdomyolysis, acute renal failure, bacteremia, hypertension, CHF, and hyperlipidemia. This patient was admitted to our service 1 month ago for weakness and fall. He was found to have rhabdomyolysis and bacteremia at that time. He was treated with IV fluids and IV antibiotics. He got better and was discharged with oral Levaquin 500 mg daily for 2 weeks. Home health with physical therapy was ordered at that time. Family reported the patient continued to experience weakness. He fell 3 times today. He did not loss consciousness. The patient said his knee was out and then he fell. He could not get up by himself. He called 911 early this morning, but he refused to go to the ED initially. He fell another 2 times and then family brought him to the emergency room. He denied fever or chills. No nausea or vomiting. No shortness of breath or chest pain. In the ED, WBC 7, and hemoglobin 12.5. Sodium 138 and potassium 3.9. Creatinine 1.27 and total CK is 4708. He was admitted for fall and rhabdomyolysis. Past Medical History: 1. Hypertension. 2. CHF. 3. Dyslipidemia. 4. Frequent fall. 5. Rhabdomyolysis. 6. Acute renal failure. 7. Bacteremia. 8. UTI. Surgical History: Knee replacement and pacemaker placement. Allergies: THE PATIENT IS ALLERGIC TO SULFA, TETANUS TOXOID, AND BACTRIM. Home Medications: Please see home medication list. Family History: Noncontributory. Social History: The patient has been living with family, with home health. No smoking. No alcohol abuse. Physical Examination: General: Patient is awake and alert, in no acute distress. HEENT: PERRLA. EOMI. Atraumatic. Neck: Supple. No JVD. Chest: Clear to auscultation. No respiratory distress. No wheezing. Heart: Normal S1, S2. Regular rhythm and rate. Pacemaker palpable. Abdomen: Soft, nontender. Bowel sounds present. No tenderness. Extremities: No edema, no cyanosis. Neuro: Patient is awake and alert. Nonfocal. Oriented x2. Skin: No rashes or eczema. Laboratory Data: WBC 7, hemoglobin 12.5, platelet 104. Sodium 138, potassium 3.9, BUN 23, creatinine 1.31, glucose 92, magnesium 1.7, CK_ 4708. Troponin 0.06. Lipase 57. Assessment And Plan: 1. Rhabdomyolysis. This is secondary to fall. The patient has a history of fall and rhabdomyolysis. We started IV hydration. We will follow CK closely. PT was ordered. This patient is not safe to stay at home. Family requested placement to [facility]. security services manager was consulted for SNF placement. 2. Frequent fall. This patient needs intense PT and he is a candidate for SNF. 3. Acute renal insufficiency, Cr 1.31. We started IV hydration. We will closely monitor. 4. Hypertension. Blood pressure is stable. We will resume home BP medications. 5. Congestive heart failure. This appears to be compensated. No fluid retention. We will closely monitor this patient. Blood culture was ordered. security services manager will be consulted for SNF placement. Family agreed with our placement. Actually, the patient's family talked to [facility] for rehab. QT/MODL Voice ID: [id number] MTDD
[2019-12-07] MEDS: NA CHLORIDE 0.9% 1,000 ML IV SCH ×4 (04:00→20:02)
[2019-12-07] MEDS: MORPHINE 2 MG/ML SYR IV PRN ×4 (04:18→23:45)
[2019-12-07] MEDS: HYDROCODONE/APAP 10/325 TAB PO PRN ×3 (05:43→20:03)
[2019-12-07 06:25] LABS: Absolute Lymphocytes (CBC) 0.7 K/uL (0.7-4.9); Basophils % 0.2 % (0-1.3); Lymphocytes % 10.1 % (15.3-44.8); MPV 9.4 fL (7.6-11.3); RBC Red Blood Cell Count 3.87 M/uL (4.33-5.43)
[2019-12-07 06:55] LABS: Albumin 3.1 g/dL (3.4-5.0); Bilirubin Total 1.1 mg/dL (0.2-1.0); Magnesium 1.9 mg/dL (1.8-2.4); Phosphorus 2.4 mg/dL (2.5-4.9); Protein, Total 6.2 g/dL (6.4-8.2); Thyroid Stimulating Hormone 1.19 uIU/mL (0.360-3.740)
--- NOTE | 2019-12-07 07:00 | RAD REPORT ---
EXAM DESCRIPTION: RAD - Chest Single View - 12/07/2019 6:50 am CLINICAL HISTORY: Left Rib pain Chest pain. COMPARISON: Chest Single View dated 11/11/2019; Chest Pa And Lat (2 Views) dated 02/17/2018; Chest Sin gle View dated 03/03/2016; CHEST SINGLE VIEW dated 01/17/2016; Shoulder Left 2 View dated 12/06/2019 FINDINGS: Portable technique limits examination quality. The lungs are underinflated resulting in vascular crowding. Small left pleural effusion suspected. Th e heart is mildly moderately enlarged in size with multilead pacer/defibrillator device present. No d isplaced fractures.
[2019-12-07 08:48] LABS: Blood Morphology Comment NOT SEEN (NOT SEEN); Platelet Estimate DECR; Urine White Blood Cell Casts OK
--- NOTE | 2019-12-07 08:49 | EKG ---
Test Date: 2019-12-06 Test Time: 16:28:20 Track Rider: MEASUREMENT RESULTS: Intervals: Rate: 87 CO: QRSD: 200 QT: 458 QTc: 551 [place]: P: 72 CO: QRS: 229 T: 37 INTERPRETIVE STATEMENTS: Atrial-sensed ventricular-paced rhythm tracking sinus rhythm Abnormal ECG Compared to ECG 11/11/2019 11:08:00 Premature atrial complexes are no longer present Electronically Signed On 12-07-19 08:49:21 [employer] by David Whittaker
[2019-12-07] MEDS: ENOXAPARIN 40 MG/0.4 ML SQ SCH (09:00)
[2019-12-07] MEDS ORDERED: HOME MED 1 EA UNK (Amlodipine Besylate/Benazepril [Amlodipine-Benazepril 5-20 Mg] 1 EACH) PO SCH (09:00)
[2019-12-07] MEDS ORDERED: AMLODIPINE 5 MG TAB PO SCH (09:00)
[2019-12-07] MEDS: POTASS/SODIUM PHOSPHATE 1 PKT POWD.PACK PO SCH ×3 (09:13→11:48)
[2019-12-07] MEDS: ASPIRIN 81 MG CHEWABLE TABLET PO SCH (09:15)
[2019-12-07] MEDS: SERTRALINE HCL 50 MG TAB PO SCH (09:15)
[2019-12-07] MEDS: BENAZEPRIL 20 MG TAB PO SCH (09:22)
[2019-12-07] MEDS: LABETALOL HCL 100 MG TAB PO SCH ×2 (09:22→20:03)
--- NOTE | 2019-12-07 14:50 | P.PN ---
Subjective Date of Service: 12/07/19 Chief Complaint: fall Subjective: No new changes (Patient complained chornic back pain) Review of Systems General: Weakness Eyes: Unremarkable ENT: Unremarkable Respiratory: Unremarkable Cardiovascular: Unremarkable Gastrointestinal: Unremarkable Musculoskeletal: Back Pain, Leg Pain Integumentary: Unremarkable Neurological: Unremarkable Physical Examination - Vital Signs Temperature: 98.4 F Blood Pressure: 153/74 Pulse: 87 Respirations: 18 Pulse Ox (%): 97 - Physical Exam General: Alert, Oriented x2, Cooperative, Mild distress HEENT: Atraumatic, Normocephalic, PERRLA, Mucous membr. moist/pink Neck: Supple, 2+ carotid pulse no bruit Respiratory: Clear to auscultation bilaterally, Normal air movement Cardiovascular: No edema, Normal pulses, Regular rate/rhythm, Normal S1 S2 Gastrointestinal: Normal bowel sounds, Soft and benign, Non-distended, No ascites Musculoskeletal: No clubbing, No swelling Integumentary: No rashes, No breakdown Neurological: Normal strength at 5/5 x4 extr, Normal tone, Sensation intact, Cranial nerves 3-12 intact, Normal affect - Studies Laboratory Data (last 24 hrs) 12/06/19 16:15: APTT 27.5 12/06/19 16:15: Sodium 136, Potassium 3.7, BUN 23 H, Creatinine 1.31 H, Glucose 92, Magnesium 1.7 L, Total Bilirubin 1.4 H, AST 147 H, ALT 43, Alkaline Phosphatase 68, Lipase 57 L 12/06/19 16:04: WBC Cancelled, Hgb Cancelled, Hct Cancelled, Plt Count Cancelled 12/06/19 15:10: WBC 7.0, Hgb 12.5 L, Hct 36.6 L, Plt Count 104 L 12/06/19 15:10: Sodium 138, Potassium 3.9, BUN 23 H, Creatinine 1.27, Glucose 96 , Total Bilirubin 1.1 H, AST 141 H, ALT 42, Alkaline Phosphatase 67 Assessment And Plan - Plan Assessment And Plan: 1. Rhabdomyolysis. This is secondary to fall. The patient has a history of fall and rhabdomyolysis. We started IV hydration. On PT. CK 4708->2734. This patient is not safe to stay at home. Family requested placement to [facility]. manager story was consulted for SNF placement. 2. Frequent fall. This patient needs intense PT and he is a candidate for SNF. manager story was consulted. 3. Acute renal insufficiency, Cr 1.31. We started IV hydration. This is improved. Cr 1.17 4. Hypertension. Blood pressure is stable. C/W home BP meds. 5. Congestive heart failure. This appears to be compensated. No fluid retention. 6. Chronic back pain. On pain med including morphine and [place]. Be cautious in the setting of fall. We will closely monitor this patient. Urine culture pending. manager story will be consulted for SNF placement. Family agreed with our placement. Actually, the patient's family talked to [facility] for rehab. Discharge Plan: [facility] Plan to discharge in: 48 Hours
[2019-12-07 17:58] VITALS: BMI 35.5
[2019-12-07] MEDS: TAMSULOSIN 0.4 MG SR CAP PO SCH (20:03)
[2019-12-08] MEDS ORDERED: HYDROMORPHONE HCL 0.5 MG/0.5 ML INJ IV ONE (00:42)
[2019-12-08] MEDS ORDERED: dexAMETHasone 10 MG/ML VIAL IV ONE (00:42)
[2019-12-08 05:50] LABS: Absolute Lymphocytes (CBC) 0.5 K/uL (0.7-4.9); Basophils % 0.1 % (0-1.3); Hematocrit 31.6 % (39.6-49.0); Lymphocytes % 7.6 % (15.3-44.8); MPV 10.1 fL (7.6-11.3); RBC Red Blood Cell Count 3.53 M/uL (4.33-5.43)
[2019-12-08 06:02] LABS: Phosphorus 2.3 mg/dL (2.5-4.9)
[2019-12-08] MEDS ORDERED: POTASS/SODIUM PHOSPHATE 1 PKT POWD.PACK PO SCH (07:00)
[2019-12-08] MEDS: NA CHLORIDE 0.9% 1,000 ML IV SCH ×2 (07:23→18:03)
[2019-12-08 07:38] LABS: Blood Morphology Comment NOT SEEN (NOT SEEN); Platelet Estimate DECR
[2019-12-08] MEDS: SERTRALINE HCL 50 MG TAB PO SCH (09:09)
[2019-12-08] MEDS: HYDROCODONE/APAP 10/325 TAB PO PRN ×2 (09:09→16:12)
[2019-12-08] MEDS: AMLODIPINE 10 MG TAB PO SCH (09:10)
[2019-12-08] MEDS: ASPIRIN 81 MG CHEWABLE TABLET PO SCH (09:10)
[2019-12-08] MEDS: BENAZEPRIL 20 MG TAB PO SCH (09:11)
[2019-12-08] MEDS: DOCUSATE NA 100 MG CAP PO SCH ×2 (09:11→21:22)
[2019-12-08] MEDS: LABETALOL HCL 100 MG TAB PO SCH ×2 (09:11→21:22)
[2019-12-08] MEDS: POTASS/SODIUM PHOSPHATE 1 PKT POWD.PACK PO SCH ×3 (09:13→11:39)
--- NOTE | 2019-12-08 10:01 | RAD REPORT ---
EXAM DESCRIPTION: CT - Abdomen Pelvis W Contrast - 12/08/2019 8:53 am CLINICAL HISTORY: left flank pain; hematoma;, history of multiple falls COMPARISON: CT ABD PELVIS W CONTRAST dated 01/17/2016 TECHNIQUE: Biphasic, helical CT imaging of the abdomen and pelvis was performed following 100 ml non -ionic IV contrast. Axial reconstruction images were obtained to evaluate the lumbar spine. Axial, sa gittal and coronal 3 mm reformatted images generated and reviewed. Oral contrast was given. All CT scans are performed using dose optimization technique as appropriate and may include automated exposure control or mA/KV adjustment according to patient size. FINDINGS: Cardiomegaly is present without pericardial effusion. Scarring is seen in the lung bases. Liver size is normal with no focal liver lesions identified. No splenomegaly. Splenic granulomatous c alcifications are present. No pancreatic abnormality seen. Gallbladder and biliary tree are also with out suspicious finding. Symmetric renal function is seen with no hydronephrosis or suspicious renal mass. Nonobstructing lou x or parenchymal calcifications are present. In the posterior lower pole left kidney a 2.6 centimeter rounded low-density mass is present. This does not have simple cyst characteristics. Attenuation jayesh ue is 48-51 Hounsfield units. No significant change between arterial and venous phase imaging. Size o f the mass has not changed since 2016 in this would strongly support a benign etiology. In the latera l upper pole left kidney an 8 millimeter exophytic masses present isointense to slightly hypointense to the parenchyma. This was approximately 5-6 mm in 2016. No bladder abnormalities. No adrenal abnorm alities. No prostate gland or seminal vesicle abnormality seen. No dilated bowel loops or bowel wall thickening. No free air, free fluid or inflammatory stranding. No hernia, mass or bulky lymphadenopathy. Arterial calcifications are present. No acute vascular finding. Reconstruction images show prominent anterior and right lateral endplate spurring involving multiple levels. Degenerative disc space narrowing at L1-2 and L2-3. There is degenerative gas in all disc lev els. Advanced facet joint degenerative changes are present. Multilevel bony foraminal stenosis is pre sent. Canal is borderline stenotic at L4-5. No compression fractures are present. No pathologic bone process. IMPRESSION: No hydronephrosis, obstructing calculus or other acute finding identified. No suspici ous finding on this study to explain left flank pain. Patient has punctate nonobstructing peer mid or calyx calculi. A 26 millimeter exophytic low-density mass posterior lower pole left kidney has not changed since 201 6. This does not have simple cyst characteristics but stability over 3 years would strongly support a benign process. A small exophytic 8 mm mass lateral upper pole left kidney is fractionally enlarged. This can be iman tored with a follow-up study in 1 year. Extensive lumbar spine bone and disc degenerative changes are present as detailed. There is no compre ssion fracture. Patient is borderline stenotic at the lower lumbar spine and has multiple levels show ing significant foraminal encroachment.
[2019-12-08] MEDS: MORPHINE 2 MG/ML SYR IV PRN (13:34)
--- NOTE | 2019-12-08 15:36 | P.PN ---
Subjective Date of Service: 12/08/19 Chief Complaint: fall Subjective: No new changes (Pt complained chronic back pain) Review of Systems General: Weakness, Malaise Eyes: Unremarkable ENT: Unremarkable Respiratory: Unremarkable Cardiovascular: Unremarkable Gastrointestinal: Abdominal Pain, Distention Genitourinary: Unremarkable Musculoskeletal: Back Pain, Leg Pain Neurological: Unremarkable Physical Examination - Vital Signs Temperature: 97.9 F Blood Pressure: 140/73 Pulse: 68 Respirations: 18 Pulse Ox (%): 94 - Physical Exam General: Alert, Oriented x3, Cooperative, Mild distress HEENT: Atraumatic, Normocephalic, PERRLA, Mucous membr. moist/pink Neck: Supple, 2+ carotid pulse no bruit, JVD not distended Respiratory: Clear to auscultation bilaterally, Normal air movement Cardiovascular: No edema, Normal pulses, Normal S1 S2, Abnormal S3 Gastrointestinal: Hypoactive, Distended Musculoskeletal: No clubbing, No swelling, Other (tenderness on the back) Integumentary: No rashes, No breakdown Neurological: Normal tone, Sensation intact, Cranial nerves 3-12 intact - Studies Imagings Data: IMPRESSION: No hydronephrosis, obstructing calculus or other acute finding identified. No suspicious finding on this study to explain left flank pain. Patient has punctate nonobstructing peer mid or calyx calculi. A 26 millimeter exophytic low-density mass posterior lower pole left kidney has not changed since 2016. This does not have simple cyst characteristics but stability over 3 years would strongly support a benign process. A small exophytic 8 mm mass lateral upper pole left kidney is fractionally enlarged. This can be monitored with a follow-up study in 1 year. Extensive lumbar spine bone and disc degenerative changes are present as detailed. There is no compression fracture. Patient is borderline stenotic at the lower lumbar spine and has multiple levels showing significant foraminal encroachment. Assessment And Plan - Plan Assessment And Plan: 1. Rhabdomyolysis. This is secondary to fall. The patient has a history of fall and rhabdomyolysis. On IV hydration. On PT. CK 4708->2734->648. This patient is not safe to stay at home. Family requested placement to [facility]. field project manager was consulted for SNF placement. 2. Frequent fall. This patient needs intense PT and he is a candidate for SNF. field project manager was consulted. 3. Acute renal insufficiency, Cr 1.31. We started IV hydration. This is improved. Cr 1.17->1.02 4. Hypertension. Blood pressure is stable. C/W home BP meds. 5. Congestive heart failure. This appears to be compensated. No fluid retention. 6. Chronic back pain. On pain med including morphine and [place]. Be cautious in the setting of fall. 7. Kidney stones. No hydronephrosis or obstruction identified 8. Lower back pain. There is extensive lumbar spine bone and the disc degenerative changes. He is on pain medications. 9. Kidney mass. No change from previous study. This is likely benign. 10. Abdominal pain. Nurse reports abdominal pain. I believe this is due to lower back discomfort. Abdominal CT is unremarkable. We will closely monitor this patient. Urine culture pending. field project manager will be consulted for SNF placement. Family agreed with our placement. Actually, the patient's family talked to [facility] for rehab.
[2019-12-08] MEDS ORDERED: LORazepam 2 MG/ML VIAL IV ONE (19:58)
[2019-12-08] MEDS: TAMSULOSIN 0.4 MG SR CAP PO SCH (21:23)
[2019-12-09] MEDS: HYDROCODONE/APAP 10/325 TAB PO PRN (06:31)
[2019-12-09 06:38] LABS: Albumin 2.5 g/dL (3.4-5.0); Bilirubin Direct 0.3 mg/dL (0-0.2); Bilirubin Total 0.9 mg/dL (0.2-1.0); Potassium 3.8 mmol/L (3.5-5.1); Protein, Total 5.6 g/dL (6.4-8.2)
[2019-12-09] MEDS ORDERED: POTASSIUM CL SA 10 MEQ TAB PO ONE (07:30)
[2019-12-09] MEDS ORDERED: POTASSIUM PHOS IN 0.9 % NACL 15 MMOL/250 ML BAG IV ONE (08:00)
[2019-12-09 08:30] VITALS: O2SAT 93
[2019-12-09] MEDS: DOCUSATE NA 100 MG CAP PO SCH (09:09)
[2019-12-09] MEDS: SERTRALINE HCL 50 MG TAB PO SCH (09:10)
[2019-12-09] MEDS: AMLODIPINE 10 MG TAB PO SCH (09:12)
[2019-12-09] MEDS: BENAZEPRIL 20 MG TAB PO SCH (09:13)
[2019-12-09] MEDS: LABETALOL HCL 100 MG TAB PO SCH (09:15)
[2019-12-09] MEDS: ASPIRIN 81 MG CHEWABLE TABLET PO SCH (09:15)
[2019-12-09] MEDS: POTASS/SODIUM PHOSPHATE 1 PKT POWD.PACK PO SCH ×2 (09:17→10:33)
[2019-12-09 12:58] VITALS: BP 134/77; TEMP 99.5
--- NOTE | 2019-12-09 12:58 | P.PN ---
Subjective Date of Service: 12/09/19 Chief Complaint: fall Subjective: No new changes, Doing well Review of Systems General: Weakness Eyes: Unremarkable ENT: Unremarkable Respiratory: Unremarkable Cardiovascular: Unremarkable Gastrointestinal: Unremarkable Genitourinary: Unremarkable Musculoskeletal: Back Pain Integumentary: Unremarkable Neurological: Unremarkable Lymphatics: Unremarkable Physical Examination - Vital Signs Temperature: 99.5 F Blood Pressure: 134/77 Pulse: 72 Respirations: 20 Pulse Ox (%): 96 - Physical Exam General: Alert, Oriented x3, Mild distress HEENT: Atraumatic, Normocephalic, PERRLA, Mucous membr. moist/pink Neck: Supple, 2+ carotid pulse no bruit, JVD not distended Respiratory: Clear to auscultation bilaterally, Normal air movement Cardiovascular: No edema, Normal pulses, Regular rate/rhythm Gastrointestinal: Hypoactive, Soft and benign, Non-distended Musculoskeletal: No clubbing, Swelling (1+) Integumentary: No rashes, No breakdown Neurological: Normal gait, Normal speech, Normal strength at 5/5 x4 extr, Normal tone External genitalia: No edema, No lesions Assessment And Plan - Plan Assessment And Plan: 1. Rhabdomyolysis. This is secondary to fall. The patient has a history of fall and rhabdomyolysis. On IV hydration. On PT. CK 4708->2734->648->normal. This patient is not safe to stay at home. product marketing programs manager was consulted for SNF placement. 2. Frequent fall. This patient needs intense PT and he is a candidate for SNF. product marketing programs manager was consulted. 3. Acute renal insufficiency, Cr 1.31. We started IV hydration. This is improved. Cr 1.17->1.02 4. Hypertension. Blood pressure is stable. C/W home BP meds. 5. Congestive heart failure. This appears to be compensated. No fluid retention. 6. Chronic back pain. On pain med including morphine and [place]. Be cautious in the setting of fall. 7. Kidney stones. No hydronephrosis or obstruction identified 8. Lower back pain. There is extensive lumbar spine bone and disc degenerative changes. He is on pain medications. 9. Kidney mass. No change from previous study. This is likely benign. 10. Abdominal pain. Nurse reports abdominal pain. I believe this is due to lower back discomfort. Abdominal CT is unremarkable. We will closely monitor this patient. Urine culture pending. product marketing programs manager will be consulted for SNF placement. Family agreed with our placement. Waiting for placement. Discharge Plan: [facility] Plan to discharge in: 24 Hours - Code Status/Comfort Care Code Status Assessed: Yes Code Status: Full Code Time Spent Managing PTS Care (In Minutes): 25
--- NOTE | 2019-12-09 14:06 | P.DS ---
Admission Date: 12/06/19 Discharge Date: 12/09/19 Disposition: TRANSFER TO SNF - MEDICAL Discharge Condition: GOOD Reason for Admission: fall Brief History of Present Illness: This patient is a 74-year-old male who presented for frequent fall. He has a history of frequent fall, rhabdomyolysis, acute renal failure, bacteremia, hypertension, CHF, and hyperlipidemia. This patient was admitted to our service 1 month ago for weakness and fall. He was found to have rhabdomyolysis and bacteremia at that time. He was treated with IV fluids and IV antibiotics. He got better and was discharged with oral Levaquin 500 mg daily for 2 weeks. Home health with physical therapy was ordered at that time. Family reported the patient continued to experience weakness. He fell 3 times today. He did not loss consciousness. The patient said his knee was out and then he fell. He could not get up by himself. He called 911 early this morning, but he refused to go to the ED initially. He fell another 2 times and then family brought him to the emergency room. He denied fever or chills. No nausea or vomiting. No shortness of breath or chest pain. In the ED, WBC 7, and hemoglobin 12.5. Sodium 138 and potassium 3.9. Creatinine 1.27 and total CK is 4708. He was admitted for fall and rhabdomyolysis. Hospital Course: Patient presented for fall. He has a history of frequent fall, rhabdomyolysis, acute renal failure, bacteremia, hypertension, CHF, and hyperlipidemia. This patient was admitted to our service 1 month ago for weakness and fall. He was found to have rhabdomyolysis and bacteremia at that time. He fell 3 times this time on the day of admission. In the ED, WBC 7, and hemoglobin 12.5. Sodium 138 and potassium 3.9. Creatinine 1.27 and total CK is 4708. He was admitted and was treated with IV fluids. Physical therapy was consulted. He is feigning better. He remains weak. He complains of lower back pain and abdominal pain. Abdominal CT demonstrates kidney mass which was found 3 years ago. Total CK returned to normal range. His renal function is back to normal. His vitals stable. He was accepted for SNF placement. There is no indication for antibiotics use at this moment. Vital Signs/Physical Exam: Temp Pulse Resp BP Pulse Ox 99.5 F 72 20 134/77 96 12/09/19 12:58 12/09/19 12:58 12/09/19 12:58 12/09/19 12:58 12/09/19 12:58 General: Alert, Oriented x3, Cooperative HEENT: Atraumatic, Normocephalic, PERRLA, Mucous membr. moist/pink Neck: Supple, 2+ carotid pulse no bruit, JVD not distended Respiratory: Clear to auscultation bilaterally, Normal air movement Cardiovascular: No edema, Normal pulses, Regular rate/rhythm, Normal S1 S2, Abnormal S3 Gastrointestinal: Hypoactive, Soft and benign Musculoskeletal: No clubbing, Swelling Integumentary: No rashes, No breakdown Neurological: Normal strength at 5/5 x4 extr, Sensation intact, Cranial nerves 3 -12 intact, Normal reflexes 2+, Abnormal strength (3/5) Laboratory Data at Discharge: WBC 6.5 K/uL (4.3-10.9) 12/08/19 05:12 Hgb 10.8 g/dL (13.6-17.9) L 12/08/19 05:12 Hct 31.6 % (39.6-49.0) L 12/08/19 05:12 Plt Count 69 K/uL (152-406) L 12/08/19 05:12 APTT 27.5 SECONDS (24.3-36.9) 12/06/19 16:15 Sodium 135 mmol/L (136-145) L 12/09/19 05:51 Potassium 3.8 mmol/L (3.5-5.1) 12/09/19 05:51 BUN 26 mg/dL (7-18) H 12/09/19 05:51 Creatinine 0.97 mg/dL (0.55-1.3) 12/09/19 05:51 Glucose 86 mg/dL (74-106) 12/09/19 05:51 Phosphorus 2.0 mg/dL (2.5-4.9) L 12/09/19 05:51 Magnesium 1.9 mg/dL (1.8-2.4) 12/07/19 05:27 Total Bilirubin 0.9 mg/dL (0.2-1.0) 12/09/19 05:51 AST 63 U/L (15-37) H 12/09/19 05:51 ALT 36 U/L (12-78) 12/09/19 05:51 Alkaline Phosphatase 58 U/L (45-117) 12/09/19 05:51 Lipase 57 U/L (73-393) L 12/06/19 16:15 Imagings Data: Abd CT : No hydronephrosis, obstructing calculus or other acute finding identified. No suspicious finding on this study to explain left flank pain. Patient has punctate nonobstructing peer mid or calyx calculi. A 26 millimeter exophytic low-density mass posterior lower pole left kidney has not changed since 2016. This does not have simple cyst characteristics but stability over 3 years would strongly support a benign process. A small exophytic 8 mm mass lateral upper pole left kidney is fractionally enlarged. This can be monitored with a follow-up study in 1 year. Extensive lumbar spine bone and disc degenerative changes are present as detailed. There is no compression fracture. Patient is borderline stenotic at the lower lumbar spine and has multiple levels showing significant foraminal encroachment. Home Medications: Amlodipine Besylate/Benazepril [Amlodipine-Benazepril 5-20 mg] 1 each PO DAILY 02/17/18 Sertraline [Zoloft*] 25 mg PO DAILY 02/17/18 Aspirin Chewable [Aspirin Chewable*] 81 mg PO DAILY 11/11/19 Labetalol HCl [Trandate] 0.5 mg PO BID 11/11/19 Pravastatin Sodium 80 mg PO BEDTIME 11/11/19 Tamsulosin HCl 0.4 mg PO BEDTIME 11/11/19 Patient Discharge Instructions: Please be compliant with physical therapy at SNF. Please follow-up PCP in 1 week after discharge from SNF. Diet: AHA Activity: Ad kal Time spent managing pt's care (in minutes): 32
== END 2019-12-09 15:48 | DRG 558 ==
LOC: ER 13:38 → ERHOLD 17:41 → 2ND 19:24
PROVIDERS: ADMIT Internal Medicine; ATTEND Internal Medicine
DX: M62.82 Rhabdomyolysis (principal); N17.9 Acute kidney failure, unspecified; N39.0 Urinary tract infection, site not specified; I10 Essential (primary) hypertension; I50.9 Heart failure, unspecified; E78.5 Hyperlipidemia, unspecified; M54.9 Dorsalgia, unspecified; N28.89 Other specified disorders of kidney and ureter; N20.0 Calculus of kidney; R29.6 Repeated falls; Z91.81 History of falling
CPT/HCPCS: 36415; 71045; 72100; 74177; 80048; 80053; 80076; 81003; 81015; 82140; 82550; 82553; 83690; 83735; 84100; 84153; 84443; 84484; 85025; 85730; 87086; 87088; 93005; 94640; 94760; 97112; 97161; 97530; 99285; J1100; J1170; J1650; J2270; J3475; J7030; Q9967

== ENCOUNTER 2019-12-10 12:39 | Emergency (ER) | payer OTHER ==
[2019-12-10 13:07] LABS: Arterial Blood Carboxyhemoglob 1.4 % (0-1.5); Blood Gas Oxyhemoglobin 91.2 % (94-97); Blood O2 Saturation 93.2 % (92-98.5)
[2019-12-10] MEDS ORDERED: IPRATROPIUM BROM 0.5MG/2.5ML ONE (13:15)
[2019-12-10] MEDS ORDERED: LEVALBUTEROL 1.25 MG/3 ML NEB ONE (13:16)
[2019-12-10] MEDS ORDERED: NA CHLORIDE 0.9% 1,000 ML ONE (13:16)
[2019-12-10 13:22] LABS: Absolute Lymphocytes (CBC) 0.7 K/uL (0.7-4.9); Basophils % 0.2 % (0-1.3); Hematocrit 33.2 % (39.6-49.0); Lymphocytes % 7.2 % (15.3-44.8); MPV 9.7 fL (7.6-11.3); RBC Red Blood Cell Count 3.72 M/uL (4.33-5.43)
[2019-12-10 13:24] LABS: Protime INR 1.49
--- NOTE | 2019-12-10 13:32 | EKG ---
Test Date: 2019-12-10 Test Time: 12:41:05 Plasterer Helper: SWG MEASUREMENT RESULTS: Intervals: Rate: 104 NH: 130 QRSD: 36 QT: 286 QTc: 376 [place]: P: 79 NH: 130 QRS: -43 T: 112 INTERPRETIVE STATEMENTS: Atrial-sensed ventricular-paced rhythm with failure to capture the ventricle Abnormal ECG Compared to ECG 12/06/2019 16:28:20 pacemaker failure now present Electronically Signed On 12-10-19 13:32:10 TECHNICAL SUPPORT CONSULTANT by David Whittaker
--- NOTE | 2019-12-10 13:38 | RAD REPORT ---
EXAM DESCRIPTION: RAD - Chest Single View - 12/10/2019 1:31 pm CLINICAL HISTORY: COUGH COMPARISON: Chest Single View dated 12/07/2019; Chest Single View dated 11/11/2019; Abdomen Pelvis W Contrast dated 12/08/2019 TECHNIQUE: AP portable chest image was obtained 12/10/2019 1:31 pm . FINDINGS: Lungs are underinflated. Cardiomegaly is present with vascular engorgement. Interstitial m arkings are prominent. No focal right lung parenchymal finding. No focal abnormality in the upper lef t lung field. Retrocardiac left base is significantly limited by the enlarged heart, supine positioni ng and portable technique. Small left pleural effusion is not excluded though a December 08 CT study showed no pleural effusion or left base in full. No pneumothorax. No acute bony abnormality seen. No acute aortic findings suspected. Left-sided defibrillator in place. IMPRESSION: Mild CHF/volume overload suspected. Chest findings are all accentuated by shallow inspir ation, portable technique and body habitus. Retrocardiac assessment is limited by the same factors.
[2019-12-10 13:48] LABS: Platelet Estimate DECR; Urine White Blood Cell Casts OK
[2019-12-10 13:49] LABS: Albumin 2.3 g/dL (3.4-5.0); Bilirubin Direct 0.6 mg/dL (0-0.2); Bilirubin Total 1.4 mg/dL (0.2-1.0); Blood Morphology Comment NOT SEEN (NOT SEEN); Magnesium 1.9 mg/dL (1.8-2.4); Platelets, Giant FEW; Potassium 3.7 mmol/L (3.5-5.1); Protein, Total 5.6 g/dL (6.4-8.2); Thyroid Stimulating Hormone 0.5 uIU/mL (0.360-3.740); Troponin (Emerg Dept Use Only) 0.09 ng/mL (0.0-0.045)
--- NOTE | 2019-12-10 14:02 | EDPHYS ---
Physician Documentation [facility] Name: Schuyler Farris Jr Age: 74 yrs Sex: Male : 1945 Arrival Date: 12/10/2019 Time: 12:43 Bed 2 Private MD: ED Physician Gabe Khanna HPI: 12/10 12:59 This 74 yrs old Male presents to ER via EMS with complaints of ams and sob. lasha 12:59 The patient has shortness of breath at rest. Onset: The symptoms/episode began/occurred lasha 1 day(s) ago. The patient's shortness of breath has no apparent modifying factors. The patient presents with a history of irregular heart beat. Context: The symptoms occur at rest. The patient presents with trouble concentrating. Historical: - Allergies: 12:49 Bactrim; em 12:49 Tetanus Vaccines \T\ Toxoid; em - PMHx: 12:49 Hyperlipidemia; Hypertension; pacemaker/defibrilator; em - Immunization history:: Adult Immunizations up to date. - Coronavirus screen:: The patient has NOT traveled to [place] in the past 14 days. The patient has NOT had contact with known/suspected case of Coronavirus?. - Social history:: Smoking status: unknown. - Family history:: not pertinent. - Ebola Screening: : Patient negative for fever greater than or equal to 101.5 degrees Fahrenheit, and additional compatible Ebola Virus Disease symptoms Patient denies exposure to infectious person Patient denies travel to an Ebola-affected area in the 21 days before illness onset No symptoms or risks identified at this time. ROS: 12:59 Constitutional: Negative for fever, chills, and weight loss, Eyes: Negative for injury, lasha pain, redness, and discharge, ENT: Negative for injury, pain, and discharge, Neck: Negative for injury, pain, and swelling, Abdomen/GI: Negative for abdominal pain, nausea, vomiting, diarrhea, and constipation, Back: Negative for injury and pain, : Negative for injury, bleeding, discharge, and swelling, MS/Extremity: Negative for injury and deformity, Skin: Negative for injury, rash, and discoloration, Psych: Negative for depression, anxiety, suicide ideation, homicidal ideation, and hallucinations, Allergy/Immunology: Negative for hives, rash, and allergies, Endocrine: Negative for neck swelling, polydipsia, polyuria, polyphagia, and marked weight changes, Hematologic/Lymphatic: Negative for swollen nodes, abnormal bleeding, and unusual bruising. 12:59 Cardiovascular: Positive for palpitations. 12:59 Respiratory: Positive for cough, shortness of breath, at rest. Exam: 12:59 Constitutional: This is a well developed, well nourished patient who is awake, alert, lasha and in no acute distress. Head/Face: Normocephalic, atraumatic. Eyes: Pupils equal round and reactive to light, extra-ocular motions intact. Lids and lashes normal. Conjunctiva and sclera are non-icteric and not injected. Cornea within normal limits. Periorbital areas with no swelling, redness, or edema. ENT: Nares patent. No nasal discharge, no septal abnormalities noted. Tympanic membranes are normal and external auditory canals are clear. Oropharynx with no redness, swelling, or masses, exudates, or evidence of obstruction, uvula midline. Mucous membranes moist. Neck: Trachea midline, no thyromegaly or masses palpated, and no cervical lymphadenopathy. Supple, full range of motion without nuchal rigidity, or vertebral point tenderness. No Meningismus. Chest/axilla: Normal chest wall appearance and motion. Nontender with no deformity. No lesions are appreciated. Abdomen/GI: Soft, non-tender, with normal bowel sounds. No distension or tympany. No guarding or rebound. No evidence of tenderness throughout. Back: No spinal tenderness. No costovertebral tenderness. Full range of motion. Male : Normal genitalia with no discharge or lesions. Skin: Warm, dry with normal turgor. Normal color with no rashes, no lesions, and no evidence of cellulitis. MS/ Extremity: Pulses equal, no cyanosis. Neurovascular intact. Full, normal range of motion. Neuro: Awake and alert, GCS 15, oriented to person, place, time, and situation. Cranial nerves II-XII grossly intact. Motor strength 5/5 in all extremities. Sensory grossly intact. Cerebellar exam normal. Normal gait. Psych: Awake, alert, with orientation to person, place and time. Behavior, mood, and affect are within normal limits. 12:59 Cardiovascular: Rate: bradycardic, Rhythm: irregularly irregular, Pulses: Pulses are 3+ in bilateral radial, brachial, femoral, popliteal, posterior tibial and and dorsalis pedis arteries.. Heart sounds: normal, Edema: 1+ edema to level of left midcalf and right midcalf, JVD: is not appreciated. Vital Signs: 12:41 BP 133 / 57; Pulse 38; Resp 34; Temp 99.1; Pulse Ox 97% on 2 lpm NC; Pain 0/10; em 14:48 BP 142 / 86; Pulse 81; Resp 18; Pulse Ox 99% on 2 lpm NC; em 15:25 BP 98 / 58; Pulse 44; Resp 22; Pulse Ox 97% on 2 lpm NC; em 15:56 BP 118 / 65; Pulse 54; Resp 19; Pulse Ox 96% on 3 lpm NC; em 16:22 BP 155 / 85; Pulse 42; Resp 21 S; Pulse Ox 99% on BiPAP; em 17:06 BP 124 / 85; Pulse 34; Resp 24; Pulse Ox 40% BiPAP; em 17:30 BP 144 / 61; Pulse 33; Resp 20; Pulse Ox 100% on 40% BiPAP; em Juwan Coma Score: 12:41 Eye Response: spontaneous(4). Verbal Response: oriented(5). Motor Response: obeys em commands(6). Total: 15. Ventilator: 16:10 Fi02: 40%; Rate: 12min; em MDM: 12:46 Patient medically screened. [facility] 13:04 Data reviewed: vital signs, nurses notes, lab test result(s), EKG, radiologic studies. [facility] 12/10 12:47 Order name: Basic Metabolic Panel 12/10 12:47 Order name: CBC with Diff 12/10 12:47 Order name: LFT's 12/10 12:47 Order name: Magnesium [facility] 12/10 12:47 Order name: NT PRO-BNP 12/10 12:47 Order name: PT-INR lasha 12/10 12:47 Order name: Troponin (emerg Dept Use Only) [facility] 12/10 12:47 Order name: Blood Culture Adult (2) [facility] 12/10 12:47 Order name: Urine Culture [facility] 12/10 12:48 Order name: TSH 12/10 12:56 Order name: ABG [facility] 12/10 13:08 Order name: ABG Arterial Blood Gas; Complete Time: 13:49 EDMS 12/10 13:24 Order name: CBC with Automated Diff; Complete Time: 14:06 EDKY 12/10 13:29 Order name: Protime (+INR); Complete Time: 13:49 EDKY 12/10 12:47 Order name: XRAY Chest (1 view) [facility] 12/10 12:47 Order name: CT Head Brain wo Cont [facility] 12/10 13:51 Order name: Basic Metabolic Panel; Complete Time: 14:06 EDKY 12/10 13:51 Order name: Liver (Hepatic) Function; Complete Time: 14:06 EDKY 12/10 13:51 Order name: Troponin (Emerg Dept Use Only); Complete Time: 14:06 EDKY 12/10 13:51 Order name: NT PRO-BNP; Complete Time: 14:06 EDKY 12/10 13:51 Order name: Magnesium; Complete Time: 14:06 EDKY 12/10 13:51 Order name: Thyroid Stimulating Hormone; Complete Time: 14:06 EDKY 12/10 13:52 Order name: CBC Smear Scan; Complete Time: 14:06 [facility] 12/10 13:56 Order name: RAD; Complete Time: 14:06 EDKY 12/10 14:21 Order name: CT; Complete Time: 14:45 EDKY 12/10 15:30 Order name: Urine Dipstick--Ancillary (enter results) 12/10 15:37 Order name: Urine Dipstick-Ancillary; Complete Time: 15:47 EDKY 12/10 15:47 Order name: BIPAP [facility] 12/10 12:47 Order name: EKG; Complete Time: 13:04 [facility] 12/10 12:47 Order name: Cardiac monitoring; Complete Time: 12:48 [facility] 12/10 12:47 Order name: EKG - Nurse/Tech; Complete Time: 12:48 [facility] 12/10 12:47 Order name: IV Saline Lock; Complete Time: 13:18 [facility] 12/10 12:47 Order name: Labs collected and sent; Complete Time: 13:18 [facility] 12/10 12:47 Order name: O2 Per Protocol; Complete Time: 12:48 [facility] 12/10 12:47 Order name: O2 Sat Monitoring; Complete Time: 12:49 [facility] 12/10 14:06 Order name: Patel; Complete Time: 14:47 [facility] Administered Medications: 13:35 Drug: NS 0.9% 1000 ml Route: IV; Rate: 125 ml/hr; Site: left antecubital; em 18:06 Follow up: IV Status: Infusion continued upon transfer em 13:35 Drug: Xopenex 2.5 mg Route: Inhalation; em 15:02 Follow up: Response: No adverse reaction em 13:35 Drug: AtroVENT Aerosol 0.5 mg Route: Inhalation; em 15:03 Follow up: Response: No adverse reaction em 14:42 Drug: Lasix 40 mg Route: IVP; Site: left antecubital; em 15:33 Follow up: Response: No adverse reaction em Disposition: 12/10/19 14:00 Transfer ordered to [facility]. Diagnosis are Dyspnea, Altered mental status, unspecified, Unspecified combined systolic (congestive) and diastolic (congestive) heart failure, Bradycardia, unspecified - pacemaker not capturing, Ventricular tachycardia, Dementia in other diseases classified elsewhere, Anemia, unspecified, Unspecified kidney failure - insufficency. - Reason for transfer: Higher level of care. - Accepting physician is nichol rodriguez md. - Condition is Fair. - Problem is new. - Symptoms have improved. Signatures: Dispatcher [employer] EDGabe Saini MD MD cha Munoz, Edgar RN RN em Corrections: (The following items were deleted from the chart) 16:29 14:00 12/10/2019 14:00 Transfer ordered to Other Acute Care Facility. Diagnosis is lasha Dyspnea; Altered mental status, unspecified; Unspecified combined systolic (congestive) and diastolic (congestive) heart failure; Bradycardia, unspecified - pacemaker not capturing. Reason for transfer: Higher level of care. Accepting physician is to [facility]. Condition is Fair. Problem is new. Symptoms have improved. [facility] 16:30 16:29 12/10/2019 14:00 Transfer ordered to Other Acute Care Facility. Diagnosis is lasha Dyspnea; Altered mental status, unspecified; Unspecified combined systolic (congestive) and diastolic (congestive) heart failure; Bradycardia, unspecified - pacemaker not capturing; Ventricular tachycardia; Dementia in other diseases classified elsewhere; Anemia, unspecified; Unspecified kidney failure - insufficency. Reason for transfer: Higher level of care. Accepting physician is to [facility]. Condition is Fair. Problem is new. Symptoms have improved. lasha 18:09 16:30 12/10/2019 14:00 Transfer ordered to [facility]. Diagnosis is em Dyspnea; Altered mental status, unspecified; Unspecified combined systolic (congestive) and diastolic (congestive) heart failure; Bradycardia, unspecified - pacemaker not capturing; Ventricular tachycardia; Dementia in other diseases classified elsewhere; Anemia, unspecified; Unspecified kidney failure - insufficency. Reason for transfer: Higher level of care. Accepting physician is nichol rodriguez md. Condition is Fair. Problem is new. Symptoms have improved. lasha
--- NOTE | 2019-12-10 14:02 | ER ---
Nurse's Notes [facility] Name: Schuyler Farris Jr Age: 74 yrs Sex: Male : 1945 Arrival Date: 12/10/2019 Time: 12:43 Bed 2 Private MD: Diagnosis: Dyspnea;Altered mental status, unspecified;Unspecified combined systolic (congestive) and diastolic (congestive) heart failure;Bradycardia, unspecified-pacemaker not capturing;Ventricular tachycardia;Dementia in other diseases classified elsewhere;Anemia, unspecified;Unspecified kidney failure-insufficency Presentation: 12/10 12:45 Presenting complaint: EMS states: called out for AMS, was last seen normal yesterday at em nursing facility, BGL 127, on scene HR in the 30s, given 1 mg of atropine x 1, A\T\O x3. Transition of care: patient was not received from another setting of care. Onset of symptoms was December 09, 2019. Risk Assessment: Do you want to hurt yourself or someone else? Patient reports no desire to harm self or others. Initial Sepsis Screen: Does the patient meet any 2 criteria? No. Patient's initial sepsis screen is negative. Does the patient have a suspected source of infection? No. Patient's initial sepsis screen is negative. Care prior to arrival: Medication(s) given: atropine 1 mg IVP. 12:45 Method Of Arrival: EMS: [facility] em 12:45 Acuity: JOSE 2 em Historical: - Allergies: 12:49 Bactrim; em 12:49 Tetanus Vaccines \T\ Toxoid; em - PMHx: 12:49 Hyperlipidemia; Hypertension; pacemaker/defibrilator; em - Immunization history:: Adult Immunizations up to date. - Coronavirus screen:: The patient has NOT traveled to [place] in the past 14 days. The patient has NOT had contact with known/suspected case of Coronavirus?. - Social history:: Smoking status: unknown. - Family history:: not pertinent. - Ebola Screening: : Patient negative for fever greater than or equal to 101.5 degrees Fahrenheit, and additional compatible Ebola Virus Disease symptoms Patient denies exposure to infectious person Patient denies travel to an Ebola-affected area in the 21 days before illness onset No symptoms or risks identified at this time. Screenin:41 Abuse screen: Denies threats or abuse. Nutritional screening: No deficits noted. em Tuberculosis screening: No symptoms or risk factors identified. Fall Risk IV access (20 points). Ambulatory Aid- None/Bed Rest/Nurse Assist (0 pts). Mental Status- Overestimates/Forgets Limitations (15 pts.). Total Pagan Fall Scale indicates Low Risk Score (25-44 pts). Side Rails Up X 2 Placed close to Nursing Station Frequent Obs/Assesments occuring. Assessment: 12:41 General: Appears distressed, uncomfortable, obese, Behavior is cooperative, drowsy. em Pain: Denies pain. Neuro: Level of Consciousness is awake, alert, obeys commands, Oriented to person, place, time. Cardiovascular: Denies chest pain, shortness of breath, Capillary refill is sluggish Rhythm is sinus bradycardia. Respiratory: Airway is patent Respiratory effort is even, labored, Respiratory pattern is tachypnea. Derm: Skin is intact, is fragile, Skin is clammy, Skin is normal, Bruising that is yellow, on right midcalf and left midcalf. Musculoskeletal: Capillary refill < 3 seconds. 14:14 Reassessment: spoke with Beth at [facility] to get information of the pt pace maker, em Francis Radha was the car icer who placed the pacemaker in [place], it is a [employer] pacemaker. 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 15:56 Reassessment: RT at bedside. em 16:20 Reassessment: V-fib on monitor, code blue called, pt pacemaker/defibrillator delivered em shock, pt back into paced rhythm that is failing to capture, Dr. Khanna at bedside, pt oriented to baseline, attempting to removed Bi-pap. 16:35 Reassessment: family at bedside. em 16:55 Reassessment: [facility] em 17:49 Reassessment: report given to [facility], [facility] concerned about pt pulling BiPAP off, em request to for pt to be intubated, Dr. Khanna at bedside, pt removed off BiPAP and placed on Venti mask, pt tolerated well. Vital Signs: 12:41 BP 133 / 57; Pulse 38; Resp 34; Temp 99.1; Pulse Ox 97% on 2 lpm NC; Pain 0/10; em 14:48 BP 142 / 86; Pulse 81; Resp 18; Pulse Ox 99% on 2 lpm NC; em 15:25 BP 98 / 58; Pulse 44; Resp 22; Pulse Ox 97% on 2 lpm NC; em 15:56 BP 118 / 65; Pulse 54; Resp 19; Pulse Ox 96% on 3 lpm NC; em 16:22 BP 155 / 85; Pulse 42; Resp 21 S; Pulse Ox 99% on BiPAP; em 17:06 BP 124 / 85; Pulse 34; Resp 24; Pulse Ox 40% BiPAP; em 17:30 BP 144 / 61; Pulse 33; Resp 20; Pulse Ox 100% on 40% BiPAP; em Juwan Coma Score: 12:41 Eye Response: spontaneous(4). Verbal Response: oriented(5). Motor Response: obeys em commands(6). Total: 15. ED Course: 12:41 Arm band placed on. em 12:41 Patient has correct armband on for positive identification. Placed in gown. Bed in low em position. Call light in reach. Side rails up X2. Adult w/ patient. classroom monitor on. Pulse ox on. NIBP on. 12:43 Patient arrived in ED. sg 12:45 Michael Mclaughlin, RN is Primary Nurse. em 12:46 Gabe Khanna MD is Attending Physician. [facility] 12:48 Triage completed. em 13:05 Inserted saline lock: 20 gauge in left antecubital area, using aseptic technique. Blood em collected. 13:05 Initial lab(s) drawn, by me, sent to lab. First set of blood cultures drawn by me. em 13:[address] Jameson called and connected with Dr. Khanna for patient consultation. eb 13:53 Left message on the Spline Rolling Machine Job Setter's cell phone at [facility] eb in attempt to transfer. 14:07 initiated a transfer with Yany the Spline Rolling Machine Job Setter from [facility]. 14:29 Dr. Khanna called and left message with Dr. Francis Cabello for patient transfer eb consultation. 14:40 Patel cath inserted, using sterile technique, 16 Fr., by me, balloon inflated, to em gravity drainage, urine specimen collected. 15:52 initiated a transfer with Adore from the [facility]. 16:07 administrative approval given by Adore Painting RN. / patient has been accepted to [facility] IMU/ Johnathon Chang has accepted the patient in transfer/ report to be called to [phone]. 18:05 No provider procedures requiring assistance completed. Patient transferred, IV remains em in place. Administered Medications: 13:35 Drug: NS 0.9% 1000 ml Route: IV; Rate: 125 ml/hr; Site: left antecubital; em 18:06 Follow up: IV Status: Infusion continued upon transfer em 13:35 Drug: Xopenex 2.5 mg Route: Inhalation; em 15:02 Follow up: Response: No adverse reaction em 13:35 Drug: AtroVENT Aerosol 0.5 mg Route: Inhalation; em 15:03 Follow up: Response: No adverse reaction em 14:42 Drug: Lasix 40 mg Route: IVP; Site: left antecubital; em 15:33 Follow up: Response: No adverse reaction em Intake: 12:30 IV: 100ml; Total: 100ml. em 12:45 IV: 10ml; Total: 110ml. em Output: 15:28 Urine: 650ml; Total: 650ml. 3 18:06 Urine: 600ml (Patel); Total: 1250ml. em Ventilator: 16:10 Fi02: 40%; Rate: 12min; em Outcome: 14:00 ER care complete, transfer ordered by . [facility] 18:05 Transferred by ground EMS to [facility], Transfer form completed. X-rays sent em w/ patient. 18:05 Condition: stable 18:05 Instructed on the need for transfer, Demonstrated understanding of instructions. 18:09 Patient left the ED. em Addendum: 12/13/2019 17:37 Addendum: Culture Results: Positive blood culture. Phone call Attempt #1 faxed culture s s report to [facility] ATTN Yeni. Signatures: Sly Reese, RN LIZ Gabe Khanna MD MD cha Munoz, Edgar, RN RN Diane España RN RN ss Herrera, Deanna [facility] Marie Rosales Corrections: (The following items were deleted from the chart) 12/10 15:32 14:48 BP 142 / 86; Pulse 81bpm; Resp 18bpm; Pulse Ox 99% RA; em em
--- NOTE | 2019-12-10 14:14 | RAD REPORT ---
EXAM DESCRIPTION: CT - Head Brain Wo Cont - 12/10/2019 2:07 pm CLINICAL HISTORY: MENTAL STATUS CHANGE COMPARISON: No comparisons TECHNIQUE: Axial 5 mm thick images of the head were obtained without IV contrast. All CT scans are performed using dose optimization technique as appropriate and may include automated exposure control or mA/KV adjustment according to patient size. FINDINGS: Motion artifacts are present limiting fine detail. No intracranial hemorrhage, mass, edema or shift of mid-line structures. No acute infarction changes seen. No cortical edema or sulcal effacement. Patient has prominent atrophy and moderately prominent chronic ischemic change. Ventricles are in proportion to the amount of volume loss. Arterial and phys iologic calcifications are present. Mastoid air cells and visualized portions of the paranasal sinuses are clear. No acute bony findings. IMPRESSION: Prominent atrophy and moderate chronic ischemic change. No acute intracranial finding.
[2019-12-10] MEDS ORDERED: FUROSEMIDE 40 MG/4 ML VIAL ONE (14:38)
[2019-12-10 15:35] LABS: Urine Blood 1+ (NEG); Urine Glucose NEGATIVE (NEG); Urine Protein 2+ (NEG); Urine Specific Gravity 1.025 (1.005-1.030); Urine pH 5.5 (5.0-7.0)
[2019-12-10 21:52] VITALS: TEMP 99.1
[2019-12-10 22:06] VITALS: BP 144/61; O2SAT 100
--- NOTE | 2019-12-10 23:35 | EKG ---
Test Date: 2019-12-10 Test Time: 12:42:12 Geopolitics Teacher: SWG MEASUREMENT RESULTS: Intervals: Rate: 49 OR: QRSD: 192 QT: 618 QTc: 558 [place]: P: OR: QRS: 38 T: -86 INTERPRETIVE STATEMENTS: Atrial-sensed ventricular-paced rhythm with failure to capture left ventricule Abnormal ECG Compared to ECG 12/10/2019 12:41:05 no significant change from previous ECG Electronically Signed On 12-10-19 23:34:21 JOURNEYMAN ELECTRICIAN by David Whittaker
== END 2019-12-10 18:09 | disposition short-term general hospital (02) ==
LOC: ER 12:39
DX: I50.40 Unspecified combined systolic (congestive) and diastolic (congestive) heart failure (principal); R41.82 Altered mental status, unspecified; R00.1 Bradycardia, unspecified; I47.2 Ventricular tachycardia; D64.9 Anemia, unspecified; N28.9 Disorder of kidney and ureter, unspecified; I10 Essential (primary) hypertension; Z88.1 Allergy status to other antibiotic agents; Z88.7 Allergy status to serum and vaccine; Z95.810 Presence of automatic (implantable) cardiac defibrillator
CPT/HCPCS: 96361; 93005 ×2; 87040 ×2; 87088; 85025; 80048; 36415; 83735; 87205 ×4; 85610; 80076; 84443; 87077 ×2; 87186 ×2; 81003; 84484; 83880; 70450; 71045; 82805; 94660; 51702; 96374; 99285; J1940; J7030; 87086

== ENCOUNTER 2020-02-21 19:40 | Emergency (ER) | payer OTHER ==
--- OUTSIDE RECORDS SUMMARY | 2020-02-21 19:48 | XMS REPORT ---
:1945 Author Organization [facility] t Address [address] [place] [address] Care Team Providers Name Role Phone SARA MANJARREZ Unavailable Unavailable Problems This patient has no known problems. Allergies, Adverse Reactions, Alerts This patient has no known allergies or adverse reactions. Medications This patient has no known medications. Encounters Start End Encounter Admission Attending Care Care Encounter Date/Time Date/Time Type Type Clinicians Facility Department ID 2019-12-10 Inpatient [facility] MED 0045 20:44:00 Results Test Description Test Time Test Comments Text Results Atomic Results Result Comments FUNGUS CULTURE + SMEAR 2020-02-15 17:03:00 Test Item Value Reference Range Comments CULTURE (BEAKER) (test code = 1095) No fungus isolated in 28 day s FUNGUS SMEAR (BEAKER) (test code = 1406) No fungi seen AFB CULTURE + SMEAR (NON-SPUTUM)2020-01-31 13:35:00 Test Item Value Reference Range Comments CULTURE (BEAKER) (test code = No acid-fast bacilli isolated 1095) in 42 days AFB SMEAR (BEAKER) (test code No acid fast bacilli seen = 994) POCT-GLUCOSE [id number] 18:11:00 Test Item Value Reference Range Comments POC-GLUCOSE METER (BEAKER) 112 mg/dL 70-110 : JIMI ALEX AT [place] [id number] [facility] (test code = 1538) [facility], 7 30: 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 leatha ID = [id number] for [place] WATTERSSTE POCT-GLUCOSE [id number] 13:57:00 Test Item Value Reference Range Comments POC-GLUCOSE METER (BEAKER) 128 mg/dL 70-110 : JIMI ALEX AT [facility] [address] [facility] (test code = 1538) [facility], 7 30: 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 leatha ID = [id number] for [place] WATTERS ELESTE [id number] 05:52:00 Test Item Value Reference Range Comments MAGNESIUM (BEAKER) (test code = 627) 2.1 mg/dL 1.6-2.6 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 Mechanic ELLY AWAN LBASIC METABOLIC [id number] 05:52:00 Test Item Value Reference Range Comments SODIUM (BEAKER) (test 148 meq/L 136-145 code = 381) POTASSIUM (BEAKER) (test 3.6 meq/L 3.5-5.1 code = 379) CHLORIDE (BEAKER) (test 119 meq/L 98-107 code = 382) CO2 (BEAKER) (test code = 24 meq/L 22-29 355) BLOOD UREA NITROGEN 23 mg/dL 7-21 (BEAKER) (test code = 354) CREATININE (BEAKER) (test 0.78 mg/dL 0.57-1.25 code = 358) GLUCOSE RANDOM (BEAKER) 123 mg/dL 70-105 (test code = 652) CALCIUM (BEAKER) (test 9.0 mg/dL 8.4-10.2 code = 697) EGFR (BEAKER) (test code 97 mL/min/1.73 sq m EST IMATED GFR IS NOT = 1092) ACCURATE CREA TININE CLEARANCE IN PRE DICTING GLOMERULAR FILTR ATION RATE. ESTIMATED GFR IS NOT APPLICABLE F OR DIALYSIS PATIENT S. 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 Mechanic ELLY AWAN LCBC (HEMOGRAM ONLY)2020-01-27 05:45:00 Test Item Value Reference Range Comments WHITE BLOOD CELL COUNT 4.4 K/ L 3.5-10.5 (BEAKER) (test code = 775) RED BLOOD CELL COUNT (BEAKER) 3.04 M/ L 4.63-6.08 (test code = 761) HEMOGLOBIN (BEAKER) (test 8.2 GM/DL 13.7-17.5 code = 410) HEMATOCRIT (BEAKER) (test 29.4 % 40.1-51.0 code = 411) MEAN CORPUSCULAR VOLUME 96.7 fL 79.0-92.2 Discorda nt MCV results (BEAKER) (test code = 753) ayan red to previous results; clinica l correlation requ ired. MEAN CORPUSCULAR HEMOGLOBIN 27.0 pg 25.7-32.2 (BEAKER) (test code = 751) MEAN CORPUSCULAR HEMOGLOBIN 27.9 GM/DL 32.3-36.5 CONC (BEAKER) (test code = 752) RED CELL DISTRIBUTION WIDTH 16.1 % 11.6-14.4 (BEAKER) (test code = 412) PLATELET COUNT (BEAKER) (test 199 K/CU MM 150-450 code = 756) MEAN PLATELET VOLUME (BEAKER) 9.2 fL 9.4-12.4 (test code = 754) NUCLEATED RED BLOOD CELLS 0 /100 WBC 0-0 (BEAKER) (test code = 413) POCT-GLUCOSE [id number] 03:55:00 Test Item Value Reference Range Comments POC-GLUCOSE METER (BEAKER) 114 mg/dL 70-110 : JIMI ALEX AT [address] (test code = 1538) [facility], 7029: 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 leatha ID = [id number] for MICHELLE DIAS POCT-GLUCOSE [id number] 18:25:00 Test Item Value Reference Range Comments POC-GLUCOSE METER (BEAKER) 88 mg/dL 70-110 : JIMI ALEX AT [address] (test code = 1538) [facility], 7029: 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 leatha ID = [id number] for EMILIANA SCHMIDT POCT-GLUCOSE [id number] 12:51:00 Test Item Value Reference Range Comments POC-GLUCOSE METER (BEAKER) 89 mg/dL 70-110 : JIMI ALEX AT [address] (test code = 1538) [facility], 7 [address]: 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 leatha ID = [id number] for [place] WATTERS BASIC METABOLIC [id number] 06:36:00 Test Item Value Reference Range Comments SODIUM (BEAKER) (test 151 meq/L 136-145 code = 381) POTASSIUM (BEAKER) (test 3.7 meq/L 3.5-5.1 code = 379) CHLORIDE (BEAKER) (test 121 meq/L 98-107 code = 382) CO2 (BEAKER) (test code = 25 meq/L 22-29 355) BLOOD UREA NITROGEN 30 mg/dL 7-21 (BEAKER) (test code = 354) CREATININE (BEAKER) (test 0.83 mg/dL 0.57-1.25 code = 358) GLUCOSE RANDOM (BEAKER) 96 mg/dL 70-105 (test code = 652) CALCIUM (BEAKER) (test 9.2 mg/dL 8.4-10.2 code = 697) EGFR (BEAKER) (test code 90 mL/min/1.73 sq m EST IMATED GFR IS NOT = 1092) ACCURATE CREA TININE CLEARANCE IN PRE DICTING GLOMERULAR FILTR ATION RATE. ESTIMATED GFR IS NOT APPLICABLE F OR DIALYSIS PATIENT S. 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 Mechanic ID - [id number] (HEMOGRAM ONLY)2020-01-26 06:35:00 Test Item Value Reference Range Comments WHITE BLOOD CELL COUNT (BEAKER) (test code = 4.5 K/ L 3.5 -10.5 775) RED BLOOD CELL COUNT (BEAKER) (test code = 761) 3.22 M/ L 4.63-6.08 HEMOGLOBIN (BEAKER) (test code = 410) 9.1 GM/DL 13.7-17.5 HEMATOCRIT (BEAKER) (test code = 411) 32.6 % 40.1-51.0 MEAN CORPUSCULAR VOLUME (BEAKER) (test code = 101.2 fL 79 .0-92.2 753) MEAN CORPUSCULAR HEMOGLOBIN (BEAKER) (test code 28.3 pg 25.7-32.2 = 751) MEAN CORPUSCULAR HEMOGLOBIN CONC (BEAKER) (test 27.9 GM/DL 32.3-36.5 code = 752) RED CELL DISTRIBUTION WIDTH (BEAKER) (test code 16.4 % 11.6-14.4 = 412) PLATELET COUNT (BEAKER) (test code = 756) 199 K/CU MM 150-45 0 MEAN PLATELET VOLUME (BEAKER) (test code = 754) 9.8 fL 9.4-12.4 NUCLEATED RED BLOOD CELLS (BEAKER) (test code = 0 /100 WBC 0-0 413) POCT-GLUCOSE [id number] 00:29:00 Test Item Value Reference Range Comments POC-GLUCOSE METER (BEAKER) 106 mg/dL 70-110 : JIMI ALEX AT [facility] [address] (test code = 1538) [place], [address]: 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 leatha ID = [id number] for TEVIN SOSA TROPONIN [id number] 18:42:00 Test Item Value Reference Range Comments TROPONIN I (BEAKER) (test code = 397) < ng/mL 0.00-0.03 Troponin I (TnI) levels must be interpreted in the context of the presenting symptoms and the clinical findings. Elevated TnI levels indicate myocardial damage, but are not specific for ischemic heart disease. Elevated TnI levels are seen in patients with other cardiac conditions (including myocarditis and congestive heart failure), and slight TnI elevations occur in patients with other conditions, including sepsis, renal failure, acidosis, acute neurological disease, and persistent tachyarrhythmia.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 Mechanic ID - DBPOCT-GLUCOSE METER 2020-01-25 15:50:00 Test Item Value Reference Range Comments POC-GLUCOSE METER ([facility]) 98 mg/dL 70-110 : JIMI WOOD AT [address] (test code = 1538) [facility], 7 30: 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 leatha ID = [id number] for DIAZ ALVAREZ POCT-GLUCOSE [id number] 12:27:00 Test Item Value Reference Range Comments POC-GLUCOSE METER ([facility]) 90 mg/dL 70-110 : JIMI WOOD AT [address] (test code = 1538) [facility], 7 [address]: 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 leatha ID = [id number] for DIAZ ALVAREZ TROPONIN [id number] 09:18:00 Test Item Value Reference Range Comments TROPONIN I ([facility]) (test code = 397) 0.05 ng/mL 0.00-0.03 Troponin I (TnI) levels must be interpreted in the context of the presenting symptoms and the clinical findings. Elevated TnI levels indicate myocardial damage, but are not specific for ischemic heart disease. Elevated TnI levels are seen in patients with other cardiac conditions (including myocarditis and congestive heart failure), and slight TnI elevations occur in patients with other conditions, including sepsis, renal failure, acidosis, acute neurological disease, and persistent tachyarrhythmia.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 Mechanic ID - ADAMARIS MCBC W/PLT COUNT & AUTO [id number] 06:21:00 Test Item Value Reference Range Comments WHITE BLOOD CELL COUNT ([facility]) (test code = 5.3 K/ L 3.5 -10.5 775) RED BLOOD CELL COUNT ([facility]) (test code = 761) 3.23 M/ L 4.63-6.08 HEMOGLOBIN (BEAKER) (test code = 410) 8.8 GM/DL 13.7-17.5 HEMATOCRIT (BEAKER) (test code = 411) 31.8 % 40.1-51.0 MEAN CORPUSCULAR VOLUME (BEAKER) (test code = 98.5 fL 79 .0-92.2 753) MEAN CORPUSCULAR HEMOGLOBIN (BEAKER) (test code 27.2 pg 25.7-32.2 = 751) MEAN CORPUSCULAR HEMOGLOBIN CONC (BEAKER) (test 27.7 GM/DL 32.3-36.5 code = 752) RED CELL DISTRIBUTION WIDTH (BEAKER) (test code 16.7 % 11.6-14.4 = 412) PLATELET COUNT (BEAKER) (test code = 756) 251 K/CU MM 150-45 0 MEAN PLATELET VOLUME (BEAKER) (test code = 754) 9.7 fL 9.4-12.4 NUCLEATED RED BLOOD CELLS (BEAKER) (test code = 0 /100 WBC 0-0 413) NEUTROPHILS RELATIVE PERCENT (BEAKER) (test code 71 % = 429) LYMPHOCYTES RELATIVE PERCENT (BEAKER) (test code 16 % = 430) MONOCYTES RELATIVE PERCENT (BEAKER) (test code = 9 % 431) EOSINOPHILS RELATIVE PERCENT (BEAKER) (test code 2 % = 432) BASOPHILS RELATIVE PERCENT (BEAKER) (test code = 1 % 437) NEUTROPHILS ABSOLUTE COUNT (BEAKER) (test code = 3.76 K/ L 1.78-5.38 670) LYMPHOCYTES ABSOLUTE COUNT (BEAKER) (test code = 0.85 K/ L 1.32-3.57 414) MONOCYTES ABSOLUTE COUNT (BEAKER) (test code = 0.49 K/ L 0 .30-0.82 415) EOSINOPHILS ABSOLUTE COUNT (BEAKER) (test code = 0.11 K/ L 0.04-0.54 416) BASOPHILS ABSOLUTE COUNT (BEAKER) (test code = 0.04 K/ L 0 .01-0.08 417) IMMATURE GRANULOCYTES-RELATIVE PERCENT (BEAKER) 2 % 0-1 (test code = 2801) BASIC METABOLIC [id number] 06:09:00 Test Item Value Reference Range Comments SODIUM (BEAKER) (test 151 meq/L 136-145 code = 381) POTASSIUM (BEAKER) (test 4.1 meq/L 3.5-5.1 Specime n slightly code = 379) hemolyzed CHLORIDE (BEAKER) (test 119 meq/L 98-107 code = 382) CO2 (BEAKER) (test code = 26 meq/L 22-29 355) BLOOD UREA NITROGEN 37 mg/dL 7-21 (BEAKER) (test code = 354) CREATININE (BEAKER) (test 0.94 mg/dL 0.57-1.25 Specim en slightly code = 358) hemolyzed GLUCOSE RANDOM (BEAKER) 116 mg/dL 70-105 (test code = 652) CALCIUM (BEAKER) (test 9.1 mg/dL 8.4-10.2 code = 697) EGFR (BEAKER) (test code 78 mL/min/1.73 sq m EST IMATED GFR IS NOT = 1092) ACCURATE CREA TININE CLEARANCE IN PRE DICTING GLOMERULAR FILTR ATION RATE. ESTIMATED GFR IS NOT APPLICABLE F OR DIALYSIS PATIENT S. 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 Mechanic ID - ADAMARIS MCREATINE KINASE (CK)2020-01-25 06:09:00 Test Item Value Reference Range Comments CREATINE KINASE TOTAL (BEAKER) (test code = 380) 30 U/L 29-200 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 Mechanic ID - ADAMARIS MRAD, CHEST, 1 VIEW, NON [id number] 01:06:00Reason for exam:->r/o ptxShould this be performed at the bedside?->YesFINAL REPORT Chest one view. Clinical history: r/o ptx Comparison: Chest radiograph 01/24/2020. Technique: A single frontal view of the chest was obtained. 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 There is a feeding tube which projects below the diaphragm. Thecardiomediastinal contours are stable. There is a moderate left pleural effusion, not significantly c hanged. There are ill-defined peripheral airspace and interstitial opacities in the right hemithorax. There is no pneumothorax. Signed: Nilton Butterfieldeport Verified Date/Time: 01/25/2020 01:06:33 [id number] 00:53:00 Test Item Value Reference Range Comments TROPONIN I (BEAKER) (test code = 397) 0.06 ng/mL 0.00-0.03 Troponin I (TnI) levels must be interpreted in the context of the presenting symptoms and the clinical findings. Elevated TnI levels indicate myocardial damage, but are not specific for ischemic heart disease. Elevated TnI levels are seen in patients with other cardiac conditions (including myocarditis and congestive heart failure), and slight TnI elevations occur in patients with other conditions, including sepsis, renal failure, acidosis, acute neurological disease, and persistent tachyarrhythmia.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 Mechanic ID - [id number] 00:41:00 Test Item Value Reference Range Comments GLUCOSE RANDOM (BEAKER) (test code = 652) 139 mg/dL 70-105 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 Mechanic ID - [id number], CHEST, 1 VIEW, NON [id number] 16:33:00Reason for exam:->r/o ptxShould this be performed at the bedside?->YesFINAL REPORT Chest dated January 24, 2020 COMPARISON: January 21, 2020 Comment: Since prior examination, there is interval improvement of the pulmonary parenchyma disease on the right. There is opacity in the left hemithorax secondary to layering pleural effusion. No pneumothorax isseen. AICD remains in place. There is interval placement of a nasogastric tube. Signed: Edilberto Gregory Verified Date/Time: 01/24/2020 16:33:08 Reading Location: [address] Radiology Reading Room POCT-GLUCOSE [id number] 15:59:00 Test Item Value Reference Range Comments POC-GLUCOSE METER (BEAKER) 130 mg/dL 70-110 : JIMI ALEX AT [address] (test code = 1538) [facility], [address]: 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 leatha ID = [id number] for TODD CRAWFORD POCT-GLUCOSE [id number] 05:13:00 Test Item Value Reference Range Comments POC-GLUCOSE METER (BEAKER) 89 mg/dL 70-110 : JIMI ALEX AT [address] (test code = 1538) [facility], [address] [address]: 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 leatha ID = [id number] for MSIBI, MNCED [place] [id number] 03:36:00 Test Item Value Reference Range Comments MAGNESIUM (BEAKER) (test code = 627) 2.3 mg/dL 1.6-2.6 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 Mechanic ID - ADAMARIS MBASIC METABOLIC [id number] 03:36:00 Test Item Value Reference Range Comments SODIUM (BEAKER) (test 149 meq/L 136-145 code = 381) POTASSIUM (BEAKER) (test 3.8 meq/L 3.5-5.1 code = 379) CHLORIDE (BEAKER) (test 113 meq/L 98-107 code = 382) CO2 (BEAKER) (test code = 31 meq/L 22-29 355) BLOOD UREA NITROGEN 38 mg/dL 7-21 (BEAKER) (test code = 354) CREATININE (BEAKER) (test 0.79 mg/dL 0.57-1.25 code = 358) GLUCOSE RANDOM (BEAKER) 114 mg/dL 70-105 (test code = 652) CALCIUM (BEAKER) (test 9.7 mg/dL 8.4-10.2 code = 697) EGFR (BEAKER) (test code 95 mL/min/1.73 sq m EST IMATED GFR IS NOT = 1092) ACCURATE CREA TININE CLEARANCE IN PRE DICTING GLOMERULAR FILTR ATION RATE. ESTIMATED GFR IS NOT APPLICABLE F OR DIALYSIS PATIENT S. 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 Mechanic ID - ADAMARIS MCBC (HEMOGRAM ONLY)2020-01-24 03:08:00 Test Item Value Reference Range Comments WHITE BLOOD CELL COUNT (BEAKER) (test code = 6.0 K/ L 3.5 -10.5 775) RED BLOOD CELL COUNT (BEAKER) (test code = 761) 3.14 M/ L 4.63-6.08 HEMOGLOBIN (BEAKER) (test code = 410) 8.9 GM/DL 13.7-17.5 HEMATOCRIT (BEAKER) (test code = 411) 30.6 % 40.1-51.0 MEAN CORPUSCULAR VOLUME (BEAKER) (test code = 97.5 fL 79 .0-92.2 753) MEAN CORPUSCULAR HEMOGLOBIN (BEAKER) (test code 28.3 pg 25.7-32.2 = 751) MEAN CORPUSCULAR HEMOGLOBIN CONC (BEAKER) (test 29.1 GM/DL 32.3-36.5 code = 752) RED CELL DISTRIBUTION WIDTH (BEAKER) (test code 16.5 % 11.6-14.4 = 412) PLATELET COUNT (BEAKER) (test code = 756) 255 K/CU MM 150-45 0 MEAN PLATELET VOLUME (BEAKER) (test code = 754) 9.7 fL 9.4-12.4 NUCLEATED RED BLOOD CELLS (BEAKER) (test code = 0 /100 WBC 0-0 413) BLOOD [id number] 19:00:00 Test Item Value Reference Range Comments CULTURE (BEAKER) (test code = 1095) No growth in 5 days CBC (HEMOGRAM ONLY)2020-01-23 03:58:00 Test Item Value Reference Range Comments WHITE BLOOD CELL COUNT (BEAKER) (test code = 5.7 K/ L 3.5 -10.5 775) RED BLOOD CELL COUNT (BEAKER) (test code = 761) 3.02 M/ L 4.63-6.08 HEMOGLOBIN (BEAKER) (test code = 410) 8.5 GM/DL 13.7-17.5 HEMATOCRIT (BEAKER) (test code = 411) 29.4 % 40.1-51.0 MEAN CORPUSCULAR VOLUME (BEAKER) (test code = 97.4 fL 79 .0-92.2 753) MEAN CORPUSCULAR HEMOGLOBIN (BEAKER) (test code 28.1 pg 25.7-32.2 = 751) MEAN CORPUSCULAR HEMOGLOBIN CONC (BEAKER) (test 28.9 GM/DL 32.3-36.5 code = 752) RED CELL DISTRIBUTION WIDTH (BEAKER) (test code 16.4 % 11.6-14.4 = 412) PLATELET COUNT (BEAKER) (test code = 756) 232 K/CU MM 150-45 0 MEAN PLATELET VOLUME (BEAKER) (test code = 754) 9.8 fL 9.4-12.4 NUCLEATED RED BLOOD CELLS (BEAKER) (test code = 0 /100 WBC 0-0 413) POCT-GLUCOSE [id number] 18:00:00 Test Item Value Reference Range Comments POC-GLUCOSE METER (BEAKER) 119 mg/dL 70-110 : JIMI ALEX AT [place] [address] [facility] (test code = 1538) [facility], 7 30: 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 leatha ID = [id number] for WILLIS BENAVIDES POCT-GLUCOSE [id number] 12:30:00 Test Item Value Reference Range Comments POC-GLUCOSE METER (BEAKER) 119 mg/dL 70-110 : JMII WOOD AT [facility] [address] [facility] (test code = 1538) [facility], [address]: 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 leatha ID = [id number] for WILLIS BENAVIDES POCT-GLUCOSE [id number] 06:24:00 Test Item Value Reference Range Comments POC-GLUCOSE METER (BEAKER) 115 mg/dL 70-110 : JIMI WOOD AT [facility] [address] [facility] (test code = 1538) [facility], 7 [address]: 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 leatha ID = [id number] for CONDONRashawn MENDOZA CBC (HEMOGRAM ONLY)2020-01-22 04:19:00 Test Item Value Reference Range Comments WHITE BLOOD CELL COUNT (BEAKER) (test code = 5.6 K/ L 3.5 -10.5 775) RED BLOOD CELL COUNT (BEAKER) (test code = 761) 2.99 M/ L 4.63-6.08 HEMOGLOBIN (BEAKER) (test code = 410) 8.4 GM/DL 13.7-17.5 HEMATOCRIT (BEAKER) (test code = 411) 28.7 % 40.1-51.0 MEAN CORPUSCULAR VOLUME (BEAKER) (test code = 96.0 fL 79 .0-92.2 753) MEAN CORPUSCULAR HEMOGLOBIN (BEAKER) (test code 28.1 pg 25.7-32.2 = 751) MEAN CORPUSCULAR HEMOGLOBIN CONC (BEAKER) (test 29.3 GM/DL 32.3-36.5 code = 752) RED CELL DISTRIBUTION WIDTH (BEAKER) (test code 16.5 % 11.6-14.4 = 412) PLATELET COUNT (BEAKER) (test code = 756) 215 K/CU MM 150-45 0 MEAN PLATELET VOLUME (BEAKER) (test code = 754) 9.7 fL 9.4-12.4 NUCLEATED RED BLOOD CELLS (BEAKER) (test code = 0 /100 WBC 0-0 413) POCT-GLUCOSE [id number] 23:58:00 Test Item Value Reference Range Comments POC-GLUCOSE METER (BEAKER) 128 mg/dL 70-110 : JIMI ALEX AT [address] (test code = 1538) [facility], [address]: 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 leatha ID = [id number] for Rashawn CONDON POCT-GLUCOSE [id number] 18:10:00 Test Item Value Reference Range Comments POC-GLUCOSE METER (BEAKER) 100 mg/dL 70-110 : JIMI ALEX AT [address] (test code = 1538) [facility], [address]: 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 leatha ID = [id number] for SANDOVAL-FR ANKLIN, AG FUNGUS CULTURE + [id number] 16:25:00 Test Item Value Reference Range Comments CULTURE (BEAKER) (test code = No fungus isolated in 28 days 1095) FUNGUS SMEAR (BEAKER) (test No fungi seen code = 1406) POCT-GLUCOSE [id number] 12:09:00 Test Item Value Reference Range Comments POC-GLUCOSE METER (BEAKER) 119 mg/dL 70-110 : JIMI ALEX AT [address] (test code = 1538) [facility], [address]: 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 leatha ID = [id number] for SANDOVAL-FR ANKLIN, AG BODY FLUID CULTURE + GRAM [id number] 11:52:00 Test Item Value Reference Range Comments CULTURE (BEAKER) (test code = 1095) No growth GRAM STAIN RESULT (BEAKER) (test code = <1+ WBCs 1123) GRAM STAIN RESULT (BEAKER) (test code = No organisms seen 09485) POCT-GLUCOSE [id number] 07:22:00 Test Item Value Reference Range Comments POC-GLUCOSE METER (BEAKER) 122 mg/dL 70-110 : JIMI ALEX AT [address] (test code = 1538) [facility], [address]: 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 leatha ID = [id number] for TAENICO POCT-GLUCOSE [id number] 06:45:00 Test Item Value Reference Range Comments POC-GLUCOSE METER (BEAKER) 103 mg/dL 70-110 : JIMI ALEX AT [address] (test code = 1538) [place], [address]: 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 leatha ID = [id number] for MSIBI, MNCED [place] BASIC METABOLIC [id number] 05:40:00 Test Item Value Reference Range Comments SODIUM (BEAKER) (test 144 meq/L 136-145 code = 381) POTASSIUM (BEAKER) (test 3.9 meq/L 3.5-5.1 code = 379) CHLORIDE (BEAKER) (test 109 meq/L 98-107 code = 382) CO2 (BEAKER) (test code = 30 meq/L 22-29 355) BLOOD UREA NITROGEN 36 mg/dL 7-21 (BEAKER) (test code = 354) CREATININE (BEAKER) (test 0.78 mg/dL 0.57-1.25 code = 358) GLUCOSE RANDOM (BEAKER) 130 mg/dL 70-105 (test code = 652) CALCIUM (BEAKER) (test 9.4 mg/dL 8.4-10.2 code = 697) EGFR (BEAKER) (test code 97 mL/min/1.73 sq m EST IMATED GFR IS NOT = 1092) ACCURATE CREA TININE CLEARANCE IN PRE DICTING GLOMERULAR FILTR ATION RATE. ESTIMATED GFR IS NOT APPLICABLE F OR DIALYSIS PATIENT S. 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 Mechanic ID - PIAYA LCBC (HEMOGRAM ONLY)2020-01-21 05:14:00 Test Item Value Reference Range Comments WHITE BLOOD CELL COUNT (BEAKER) (test code = 5.6 K/ L 3.5 -10.5 775) RED BLOOD CELL COUNT (BEAKER) (test code = 761) 2.88 M/ L 4.63-6.08 HEMOGLOBIN (BEAKER) (test code = 410) 8.0 GM/DL 13.7-17.5 HEMATOCRIT (BEAKER) (test code = 411) 27.1 % 40.1-51.0 MEAN CORPUSCULAR VOLUME (BEAKER) (test code = 94.1 fL 79 .0-92.2 753) MEAN CORPUSCULAR HEMOGLOBIN (BEAKER) (test code 27.8 pg 25.7-32.2 = 751) MEAN CORPUSCULAR HEMOGLOBIN CONC (BEAKER) (test 29.5 GM/DL 32.3-36.5 code = 752) RED CELL DISTRIBUTION WIDTH (BEAKER) (test code 16.4 % 11.6-14.4 = 412) PLATELET COUNT (BEAKER) (test code = 756) 209 K/CU MM 150-45 0 MEAN PLATELET VOLUME (BEAKER) (test code = 754) 10.1 fL 9.4-12.4 NUCLEATED RED BLOOD CELLS (BEAKER) (test code = 0 /100 WBC 0-0 413) RAD, CHEST, 1 VIEW, NON [id number] 04:32:00Reason for exam:->chfShould this be performed at the bedside?->YesFINAL REPORT Chest one view. Clinical history: chf Comparison: Chest radiograph 01/14/2020, 3:53 PM. Technique: A single frontal view of the chest was obtained. Findings:There is a right IJ pacemaker with tip in the right ventricle.The cardiac silhouette is enlarged. There are hazy bilateral airspace opacities compatible with mild pulmonary edema. There is a small left pleuraleffusion, decreased in the interval. There is no pneumothorax. Signed: Nilton Butterfield Verified Date/Time: 01/21/2020 04:32:05 POCT-GLUCOSE [id number] 23:29:00 Test Item Value Reference Range Comments POC-GLUCOSE METER (BEAKER) 125 mg/dL 70-110 : JIMI ALEX AT [facility] [id number] [facility] (test code = 1538) [facility], [address]: 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 leatha ID = [id number] for MSIBI, MNCED [place] POCT-GLUCOSE [id number] 13:27:00 Test Item Value Reference Range Comments POC-GLUCOSE METER (BEAKER) 122 mg/dL 70-110 : JIMI ALEX AT [place] [id number] [facility] (test code = 1538) [facility], [address]: 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 leatha ID = [id number] for TAENICO GIRON IVONE POCT-GLUCOSE [id number] 09:59:00 Test Item Value Reference Range Comments POC-GLUCOSE METER (BEAKER) 141 mg/dL 70-110 : JIMI ALEX AT [place] [id number] [facility] (test code = 1538) [facility], [address]: 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 leatha ID = [id number] for Rashawn CONDON [id number] 06:01:00 Test Item Value Reference Range Comments PROTIME (BEAKER) (test code = 759) 15.9 seconds 11.9-14.2 INR (BEAKER) (test code = 370) 1.3 <=5.9 PARTIAL THROMBOPLASTIN TIME (BEAKER) (test code 33.6 seconds 22.5-36.0 = 760) Effective 03/24/2019: PT Reference Range ChangeNew: 11.9-14.2 Previous: 11.7- 14.7RECOMMENDED COUMADIN/WARFARIN INR THERAPY RANGESSTANDARD DOSE: 2.0-3.0 Includes: PROPHYLAXIS for venous thrombosis, systemic embolization; TREATMENT for venous thrombosis and/or pulmonary embolus.HIGH RISK: Target INR is2.5-3.5 for patients wiht mechanical heart valves.HEPATIC FUNCTION [id number] 05:38:00 Test Item Value Reference Range Comments TOTAL PROTEIN (BEAKER) (test code = 770) 6.1 gm/dL 6.0-8.3 ALBUMIN (BEAKER) (test code = 1145) 2.3 g/dL 3.5-5.0 BILIRUBIN TOTAL (BEAKER) (test code = 377) 0.4 mg/dL 0.2-1 .2 BILIRUBIN DIRECT (BEAKER) (test code = 706) 0.3 mg/dL 0.1- 0.5 ALKALINE PHOSPHATASE (BEAKER) (test code = 346) 93 U/L 40-150 AST (SGOT) (BEAKER) (test code = 353) 21 U/L 5-34 ALT (SGPT) (BEAKER) (test code = 347) 23 U/L 6-55 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 Mechanic ID - ADAMARIS MBASIC METABOLIC [id number] 05:38:00 Test Item Value Reference Range Comments SODIUM (BEAKER) (test 140 meq/L 136-145 code = 381) POTASSIUM (BEAKER) (test 3.6 meq/L 3.5-5.1 code = 379) CHLORIDE (BEAKER) (test 106 meq/L 98-107 code = 382) CO2 (BEAKER) (test code = 28 meq/L 22-29 355) BLOOD UREA NITROGEN 36 mg/dL 7-21 (BEAKER) (test code = 354) CREATININE (BEAKER) (test 0.82 mg/dL 0.57-1.25 code = 358) GLUCOSE RANDOM (BEAKER) 141 mg/dL 70-105 (test code = 652) CALCIUM (BEAKER) (test 9.2 mg/dL 8.4-10.2 code = 697) EGFR (BEAKER) (test code 91 mL/min/1.73 sq m EST IMATED GFR IS NOT = 1092) ACCURATE CREA TININE CLEARANCE IN PRE DICTING GLOMERULAR FILTR ATION RATE. ESTIMATED GFR IS NOT APPLICABLE F OR DIALYSIS PATIENT S. 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 Mechanic ID - [place]IS [facility]2020-01-20 05:20:00 Test Item Value Reference Range Comments WHITE BLOOD CELL COUNT (BEAKER) (test code = 5.4 K/ L 3.5 -10.5 775) RED BLOOD CELL COUNT (BEAKER) (test code = 761) 2.89 M/ L 4.63-6.08 HEMOGLOBIN (BEAKER) (test code = 410) 8.2 GM/DL 13.7-17.5 HEMATOCRIT (BEAKER) (test code = 411) 26.8 % 40.1-51.0 MEAN CORPUSCULAR VOLUME (BEAKER) (test code = 92.7 fL 79 .0-92.2 753) MEAN CORPUSCULAR HEMOGLOBIN (BEAKER) (test code 28.4 pg 25.7-32.2 = 751) MEAN CORPUSCULAR HEMOGLOBIN CONC (BEAKER) (test 30.6 GM/DL 32.3-36.5 code = 752) RED CELL DISTRIBUTION WIDTH (BEAKER) (test code 16.5 % 11.6-14.4 = 412) PLATELET COUNT (BEAKER) (test code = 756) 185 K/CU MM 150-45 0 MEAN PLATELET VOLUME (BEAKER) (test code = 754) 10.3 fL 9.4-12.4 NUCLEATED RED BLOOD CELLS (BEAKER) (test code = 0 /100 WBC 0-0 413) POCT-GLUCOSE [id number] 00:05:00 Test Item Value Reference Range Comments POC-GLUCOSE METER (BEAKER) 130 mg/dL 70-110 : JIMI ALEX AT [address] (test code = 1538) [facility], [address]: 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 leatha ID = [id number] for Rashawn CONDON [id number] 16:41:00Medical Cytology Report Case: [id number] Authorizing Provider: Sara Manjarrez MD Collected: 01/18/2020 04:20 PM Ordering Location: [address] Received: 01/19/2020 09:12 AM Pathologist: Samra Coley MD Specimen: Pleural, Left PLEURAL, LEFT,FLUID (CYTOSPINS): - NEGATIVE FOR MALIGNANCY - INCREASED NEUTROPHILS PRESENT Signing Pathol ogist Direct Phone Line: [phone] signed by Samra Coely MD on 01/19/2020 at 4:41 [id number] pleural effusion; admitted on 01/17/2020 w/ history of HTN, HLD, CAD, obesity, SSS (pacemaker dependent), chronic HFrEF s/p Bi-V ICD (upgrade 2014) who presents from [facility] after aspiration event and for replacement of his pacemakerLEFT PLEURAL FLUIDReceived 800 ml brown fluidPrepared 4 cytospinsCollected: [id number]: [id number] [facility], Department of Pathology, [address] [place] [address], [facility], [address] [place] [address], [facility], [facility] of [facility]ology, [address] [place] [address], U/S, [id number] 12:40:00CELL COUNTLaterality?->LeftReason for exam:->PLEURAL EFFUSIONShould this be performed at the bedside?->YesLabs to be Ordered:- >Body Fluid Culture (w/Gram Stain, C\T\S)Labs to be Ordered:->CytologyLabs to be Ordered:->Fungal CultureLabs to be Ordered:->Glucose+LDH+ProteinLabs to beOrdered:->Other (please add comment)FINAL REPORT Exam: Ultrasound guided thoracentesis Clinical History: Left-sided Pleural Effusion Treating And Pumping Supervisor: Cassidy Parra PA-C Supervising Physician: Marvin Thompson MD Consent: Benefits and risks were explained to the patient who gave consent to the procedure. Complication: None Immediate Procedure: The patient was placed in right lateral decubitus position. Theleft posterior chest was prepped and draped in usual sterile fashion. 2% lidocaine was used as local anesthetic. Under ultrasound guidance, a thoracentesis catheter was inserted into the pleural cavity. Approximately 850 cc of serosanguineous pleural fluid was aspirated. The catheter was removed. The specimen was sent to the laboratory for further analysis. The patient tolerated the procedure well without any adverse reaction. A STAT chest x-ray was ordered. The patient left the department in stablecondition. Impression: Ultrasound guided left-sided thoracentesis. Signed: Marvin Thompson MDReportVerified Date/Time: 01/19/2020 12:40:39 Reading Location: [address] Ultrasound Reading Room E lectronically signed by: MARVIN THOMPSON on 01/19/2020 12:40 PMAPTT 2020-01-19 12:39:00 Test Item Value Reference Range Comments PARTIAL THROMBOPLASTIN TIME (BEAKER) (test code 53.1 seconds 22.5-36.0 = 760) CT, CHEST, WITHOUT [id number] 12:17:00FINAL REPORT CT Chest without contrast History: Pleural effusion Comparison: Technique: serial axial imaging was performed without intravenous contrast as per departmental protocol. Multiplanar images are reconstructed and reviewed when indicated. This CT examination is performed using one or more of the following dose reduction techniques: Automated exposure control, adjustment of the mA and /or kV according to patient size, and/or use of iterative reconstructiontechnique. Findings:No mediastinal lymphadenopathy. Calcified mediastinal and right hilar lymph nodes are consistent with previous granulomatous disease. No definite hilar enlargement. Mild cardiomegaly. Cardiac pacer in place. No pericardial effusion. No thoracic aortic aneurysm. Normal caliber of main pulmonary trunk. Patent central airways. Moderate left and small right pleural effusionsare noted. Assessment of the pulmonary parenchyma is significantly limited by patient motion. Patchy nonspecific groundglass densities are noted, with both central and peripheral involvement. Nasogastric tube terminates within the stomach. A calcified granulomata within the liver and spleen are consistent with previous granulomatous disease. There is a small stable seroma within the left anterior chest wall. No aggressive osseous lesion. Impression: 1. Moderate left and small right pleural effus ions.2. Mild cardiomegaly.3. Patchy bilateral pulmonary groundglass densities, nonspecific. This most likely represents pulmonary edema. Signed: Matthew George MDReport Verified Date/Time: 01/19/202012:17:48 Reading Location: [facility] Mammo Reading Room POCT-GLUCOSE [id number] 06:13:00 Test Item Value Reference Range Comments POC-GLUCOSE METER (BEAKER) 128 mg/dL 70-110 : J[facility] ALEX AT [facility] [address] [facility] (test code = 1538) [facility], [address]: 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 leatha ID = [id number] for RONY BETHEA [id number] 05:43:00 Test Item Value Reference Range Comments MAGNESIUM (BEAKER) (test code = 627) 1.9 mg/dL 1.6-2.6 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 Mechanic ID - ADAMARIS MBASIC METABOLIC [id number] 05:43:00 Test Item Value Reference Range Comments SODIUM (BEAKER) (test 140 meq/L 136-145 code = 381) POTASSIUM (BEAKER) (test 3.7 meq/L 3.5-5.1 code = 379) CHLORIDE (BEAKER) (test 106 meq/L 98-107 code = 382) CO2 (BEAKER) (test code = 27 meq/L 22-29 355) BLOOD UREA NITROGEN 25 mg/dL 7-21 (BEAKER) (test code = 354) CREATININE (BEAKER) (test 0.81 mg/dL 0.57-1.25 code = 358) GLUCOSE RANDOM (BEAKER) 128 mg/dL 70-105 (test code = 652) CALCIUM (BEAKER) (test 9.3 mg/dL 8.4-10.2 code = 697) EGFR (BEAKER) (test code 93 mL/min/1.73 sq m EST IMATED GFR IS NOT = 1092) ACCURATE CREA TININE CLEARANCE IN PRE DICTING GLOMERULAR FILTR ATION RATE. ESTIMATED GFR IS NOT APPLICABLE F OR DIALYSIS PATIENT S. 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 Mechanic ID - ADAMARIS MHEPATIC FUNCTION [id number] 05:43:00 Test Item Value Reference Range Comments TOTAL PROTEIN (BEAKER) (test code = 770) 5.7 gm/dL 6.0-8.3 ALBUMIN (BEAKER) (test code = 1145) 2.2 g/dL 3.5-5.0 BILIRUBIN TOTAL (BEAKER) (test code = 377) 0.4 mg/dL 0.2-1 .2 BILIRUBIN DIRECT (BEAKER) (test code = 706) 0.2 mg/dL 0.1- 0.5 ALKALINE PHOSPHATASE (BEAKER) (test code = 346) 83 U/L 40-150 AST (SGOT) (BEAKER) (test code = 353) 23 U/L 5-34 ALT (SGPT) (BEAKER) (test code = 347) 23 U/L 6-55 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 Mechanic ID - ADAMARIS MCREATINE KINASE (CK)2020-01-19 05:43:00 Test Item Value Reference Range Comments CREATINE KINASE TOTAL (BEAKER) (test code = 380) 22 U/L 29-200 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 Mechanic ID - ADAMARIS MC-REACTIVE [id number] 05:43:00 Test Item Value Reference Range Comments C-REACTIVE PROTEIN (BEAKER) (test code = 676) 9.08 mg/dL 0. 00-0.50 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 Mechanic ID - ADAMARIS [facility] (HEMOGRAM ONLY)2020-01-19 05:24:00 Test Item Value Reference Range Comments WHITE BLOOD CELL COUNT (BEAKER) (test code = 5.3 K/ L 3.5 -10.5 775) RED BLOOD CELL COUNT (BEAKER) (test code = 761) 2.74 M/ L 4.63-6.08 HEMOGLOBIN (BEAKER) (test code = 410) 7.8 GM/DL 13.7-17.5 HEMATOCRIT (BEAKER) (test code = 411) 25.5 % 40.1-51.0 MEAN CORPUSCULAR VOLUME (BEAKER) (test code = 93.1 fL 79 .0-92.2 753) MEAN CORPUSCULAR HEMOGLOBIN (BEAKER) (test code 28.5 pg 25.7-32.2 = 751) MEAN CORPUSCULAR HEMOGLOBIN CONC (BEAKER) (test 30.6 GM/DL 32.3-36.5 code = 752) RED CELL DISTRIBUTION WIDTH (BEAKER) (test code 16.4 % 11.6-14.4 = 412) PLATELET COUNT (BEAKER) (test code = 756) 164 K/CU MM 150-45 0 MEAN PLATELET VOLUME (BEAKER) (test code = 754) 10.3 fL 9.4-12.4 NUCLEATED RED BLOOD CELLS (BEAKER) (test code = 0 /100 WBC 0-0 413) [id number] 05:21:00 Test Item Value Reference Range Comments PROTIME (BEAKER) (test code = 759) 15.9 seconds 11.9-14.2 INR (BEAKER) (test code = 370) 1.3 <=5.9 PARTIAL THROMBOPLASTIN TIME (BEAKER) (test code 58.2 seconds 22.5-36.0 = 760) Effective 03/24/2019: PT Reference Range ChangeNew: 11.9-14.2 Previous: 11.7- 14.7RECOMMENDED COUMADIN/WARFARIN INR THERAPY RANGESSTANDARD DOSE: 2.0-3.0 Includes: PROPHYLAXIS for venous thrombosis, systemic embolization; TREATMENT for venous thrombosis and/or pulmonary embolus.HIGH RISK: Target INR is2.5-3.5 for patients wiht mechanical heart valves.[id number] 23:47:00 Test Item Value Reference Range Comments PARTIAL THROMBOPLASTIN TIME (BEAKER) (test code 59.5 seconds 22.5-36.0 = 760) POCT-GLUCOSE [id number] 23:37:00 Test Item Value Reference Range Comments POC-GLUCOSE METER (BEAKER) 128 mg/dL 70-110 : J[facility] ALEX AT [facility] [address] (test code = 1538) [place], [address]: 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 leatha ID = [id number] for FRANCESRONY PHILLIP BODY FLUID CELL COUNT WITH [id number] 18:12:00 Test Item Value Reference Range Comments APPEARANCE FLUID (BEAKER) (test code = 510) Slightly Cloudy Yolande r COLOR FLUID (BEAKER) (test code = 511) Juliette Colorless , Straw RBC FLUID (BEAKER) (test code = 513) [address] /cu mm <=1 ADJUSTED WBC FLUID (BEAKER) (test code = 901 /cu mm <=5 1691) LINING CELLS (BEAKER) (test code = 1590) 9 /cu mm <=1 NEUTROPHILS FLUID (BEAKER) (test code = 55 % 1656) LYMPHS FLUID (BEAKER) (test code = 488) 27 % MONO/MACROPHAGE FLUID (BEAKER) (test code = 18 % 489) EOSINOPHILS FLUID (BEAKER) (test code = 0 % 491) BASO FLUID (BEAKER) (test code = 492) 0 % CONTAINER BODY FLUID (BEAKER) (test code = EDTA Tube 2873) POCT-GLUCOSE [id number] 17:51:00 Test Item Value Reference Range Comments POC-GLUCOSE METER (BEAKER) 125 mg/dL 70-110 : J[facility] ALEX AT [facility] [address] [facility] (test code = 1538) [facility], [address]: 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 leatha ID = [id number] for AG DIAZ [id number] 17:20:00 Test Item Value Reference Range Comments PARTIAL THROMBOPLASTIN TIME (BEAKER) (test code 35.5 seconds 22.5-36.0 = 760) RAD, CHEST, 1 VIEW, NON [id number] 16:12:00Reason for exam:->post left sided thoracentesisShould this be performed at the bedside?->YesFINAL REPORT RAD, CHEST, 1 VIEW, NON DEPT INDICATION: post left sided thoracentesis COMPARISON: 10 hours prior. FINDINGS: Portable frontal view of the chest. IMPRESSION: Support Lines: No significant change. Lungs and pleura: Moderate to large left pleural-based opacity likely representing combination of pleural effusion and lung consolidation is similar to prior exam. No pne umothorax. Central pulmonary vascular congestion and bilateral interstitial opacities are stable. Low lung volumes.Heart and mediastinum: Stable contours. Additional findings: None. Signed: Alvaro Huerta MDReport Verified Date/Time: 01/18/2020 16:12:43 POCT-GLUCOSE [id number] 12:20:00 Test Item Value Reference Range Comments POC-GLUCOSE METER (BEAKER) 107 mg/dL 70-110 : JIMI ALEX AT [facility] [address] (test code = 1538) [place], [address]: 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 leatha ID = [id number] for AG DIAZ RAD, CHEST, 1 VIEW, NON [id number] 05:28:00Reason for exam:->PLEURAL EFFUSIONShould this be performed at the bedside?->NoFINAL REPORT CLINICAL INDICATION: Pleural effusion Comparison: 12/28/2019 A single view of the chest is submitted. The examination is limited by low lung volumes, rotation to the left and exclusion of the left costophrenic sulcus. The cardiac silhouette is grossly stable in its enlargement size. There is atherosclerotic calcification of the aorta. A right IJ single-lead pacemaker is in place. There is a moderate to large left pleural effusion. There is central vascular congestion. Bilateral pulmonary opacities suggest a combination of atelectasis and edema. Pneumonitis should be excluded clinically. An enteric tube traverses examination to the upper abdomen. Signed: Hiram Burton MDReport Verified Date/Time: 01/18/2020 05:28:26 CREATINE KINASE (CK)2020-01-18 04:58:00 Test Item Value Reference Range Comments CREATINE KINASE TOTAL (BEAKER) (test code = 380) 35 U/L 29-200 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 Mechanic ID - ADAMARIS MLACTATE DEHYDROGENASE (LDH)2020-01-18 04:58:00 Test Item Value Reference Range Comments LACTATE DEHYDROGENASE (BEAKER) (test code = 635) 145 U/L 125-220 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 Mechanic ID - ADAMARIS MBASIC METABOLIC [id number] 04:58:00 Test Item Value Reference Range Comments SODIUM (BEAKER) (test 137 meq/L 136-145 code = 381) POTASSIUM (BEAKER) (test 3.6 meq/L 3.5-5.1 code = 379) CHLORIDE (BEAKER) (test 105 meq/L 98-107 code = 382) CO2 (BEAKER) (test code = 26 meq/L 22-29 355) BLOOD UREA NITROGEN 20 mg/dL 7-21 (BEAKER) (test code = 354) CREATININE (BEAKER) (test 0.77 mg/dL 0.57-1.25 code = 358) GLUCOSE RANDOM (BEAKER) 108 mg/dL 70-105 (test code = 652) CALCIUM (BEAKER) (test 9.0 mg/dL 8.4-10.2 code = 697) EGFR (BEAKER) (test code 98 mL/min/1.73 sq m EST IMATED GFR IS NOT = 1092) ACCURATE CREA TININE CLEARANCE IN PRE DICTING GLOMERULAR FILTR ATION RATE. ESTIMATED GFR IS NOT APPLICABLE F OR DIALYSIS PATIENT S. 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 Mechanic ID - ADAMARIS MHEPATIC FUNCTION [id number] 04:58:00 Test Item Value Reference Range Comments TOTAL PROTEIN (BEAKER) (test code = 770) 5.7 gm/dL 6.0-8.3 ALBUMIN (BEAKER) (test code = 1145) 2.2 g/dL 3.5-5.0 BILIRUBIN TOTAL (BEAKER) (test code = 377) 0.6 mg/dL 0.2-1 .2 BILIRUBIN DIRECT (BEAKER) (test code = 706) 0.3 mg/dL 0.1- 0.5 ALKALINE PHOSPHATASE (BEAKER) (test code = 346) 65 U/L 40-150 AST (SGOT) (BEAKER) (test code = 353) 23 U/L 5-34 ALT (SGPT) (BEAKER) (test code = 347) 24 U/L 6-55 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 Mechanic ID - ADAMARIS [id number] 04:53:00 Test Item Value Reference Range Comments PROTIME (BEAKER) (test code = 759) 16.8 seconds 11.9-14.2 INR (BEAKER) (test code = 370) 1.4 <=5.9 PARTIAL THROMBOPLASTIN TIME (BEAKER) (test 102.5 seconds 22.5- 36.0 code = 760) Effective 03/24/2019: PT Reference Range ChangeNew: 11.9-14.2 Previous: 11.7- 14.7RECOMMENDED COUMADIN/WARFARIN INR THERAPY RANGESSTANDARD DOSE: 2.0-3.0 Includes: PROPHYLAXIS for venous thrombosis, systemic embolization; TREATMENT for venous thrombosis and/or pulmonary embolus.HIGH RISK: Target INR is2.5-3.5 for patients wiht mechanical heart valves.CBC (HEMOGRAM ONLY)2020-01-18 04:31:00 Test Item Value Reference Range Comments WHITE BLOOD CELL COUNT (BEAKER) (test code = 5.0 K/ L 3.5 -10.5 775) RED BLOOD CELL COUNT (BEAKER) (test code = 761) 2.76 M/ L 4.63-6.08 HEMOGLOBIN (BEAKER) (test code = 410) 7.7 GM/DL 13.7-17.5 HEMATOCRIT (BEAKER) (test code = 411) 25.3 % 40.1-51.0 MEAN CORPUSCULAR VOLUME (BEAKER) (test code = 91.7 fL 79 .0-92.2 753) MEAN CORPUSCULAR HEMOGLOBIN (BEAKER) (test code 27.9 pg 25.7-32.2 = 751) MEAN CORPUSCULAR HEMOGLOBIN CONC (BEAKER) (test 30.4 GM/DL 32.3-36.5 code = 752) RED CELL DISTRIBUTION WIDTH (BEAKER) (test code 16.4 % 11.6-14.4 = 412) PLATELET COUNT (BEAKER) (test code = 756) 170 K/CU MM 150-45 0 MEAN PLATELET VOLUME (BEAKER) (test code = 754) 9.8 fL 9.4-12.4 NUCLEATED RED BLOOD CELLS (BEAKER) (test code = 0 /100 WBC 0-0 413) POCT-GLUCOSE [id number] 00:46:00 Test Item Value Reference Range Comments POC-GLUCOSE METER (BEAKER) 107 mg/dL 70-110 : [facility]LEX AT [facility] [address] [facility] (test code = 1538[facility] [place], [address]: 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 leatha ID = [id number] for DIONISIO SHERWOOD [id number] 21:46:00 Test Item Value Reference Range Comments PARTIAL THROMBOPLASTIN TIME (BEAKER) (test code 44.2 seconds 22.5-36.0 = 760) Prior to initiating heparinPLATELET [id number] 21:38:00 Test Item Value Reference Range Comments PLATELET COUNT (BEAKER) (test code = 756) 168 K/CU MM 150-45 0 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 Mechanic ID - [id number]-GLUCOSE [id number] 18:53:00 Test Item Value Reference Range Comments POC-GLUCOSE METER (BEAKER) 119 mg/dL 70-110 : JIMI ALEX AT [address] (test code = 1538) [facility], [address]: 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 leatha ID = [id number] for WILLIS BENAVIDES FUNGUS CULTURE + [id number] 17:59:00 Test Item Value Reference Range Comments CULTURE (BEAKER) (test code = No fungus isolated in 28 days 1095) FUNGUS SMEAR (BEAKER) (test No fungi seen code = 1406) BLOOD [id number] 15:00:00 Test Item Value Reference Range Comments CULTURE (BEAKER) (test code = 1095) No growth in 5 days BLOOD [id number] 15:00:00 Test Item Value Reference Range Comments CULTURE (BEAKER) (test code = 1095) No growth in 5 days POCT-GLUCOSE [id number] 12:40:00 Test Item Value Reference Range Comments POC-GLUCOSE METER (BEAKER) 162 mg/dL 70-110 : JIMI ALEX AT [address] (test code = 1538) [facility], [address]: 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 leatha ID = [id number] for Richmond WATTERS POCT-GLUCOSE [id number] 06:25:00 Test Item Value Reference Range Comments POC-GLUCOSE METER (BEAKER) 152 mg/dL 70-110 : JIMI ALEX AT [address] (test code = 1538) [facility], [address]: 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 leatha ID = [id number] for MACIEJ BERRY CALCIUM, [id number] 05:12:00 Test Item Value Reference Range Comments CALCIUM IONIZED (BEAKER) (test code = 698) 1.24 mmol/L 1.12- 1.27 PH, BLOOD (BEAKER) (test code = 1810) 7.53 [id number] 04:42:00 Test Item Value Reference Range Comments PHOSPHORUS (BEAKER) (test code = 604) 2.9 mg/dL 2.3-4.7 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 Mechanic ID - TRAN [id number] 04:42:00 Test Item Value Reference Range Comments MAGNESIUM (BEAKER) (test code = 627) 2.2 mg/dL 1.6-2.6 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 Mechanic ID - TRAN WCOMPREHENSIVE METABOLIC [id number] 04:42:00 Test Item Value Reference Range Comments TOTAL PROTEIN (BEAKER) 6.1 gm/dL 6.0-8.3 (test code = 770) ALBUMIN (BEAKER) (test 2.0 g/dL 3.5-5.0 code = 1145) ALKALINE PHOSPHATASE 95 U/L 40-150 (BEAKER) (test code = 346) BILIRUBIN TOTAL (BEAKER) 0.5 mg/dL 0.2-1.2 (test code = 377) SODIUM (BEAKER) (test code 151 meq/L 136-145 = 381) POTASSIUM (BEAKER) (test 3.6 meq/L 3.5-5.1 code = 379) CHLORIDE (BEAKER) (test 113 meq/L 98-107 code = 382) CO2 (BEAKER) (test code = 30 meq/L 22-29 355) BLOOD UREA NITROGEN 55 mg/dL 7-21 (BEAKER) (test code = 354) CREATININE (BEAKER) (test 1.40 mg/dL 0.57-1.25 code = 358) GLUCOSE RANDOM (BEAKER) 151 mg/dL 70-105 (test code = 652) CALCIUM (BEAKER) (test 9.4 mg/dL 8.4-10.2 code = 697) AST (SGOT) (BEAKER) (test 38 U/L 5-34 code = 353) ALT (SGPT) (BEAKER) (test 30 U/L 6-55 code = 347) EGFR (BEAKER) (test code = 49 mL/min/1.73 sq m E STIMATED GFR IS NOT 1092) ACCURATE CREA TININE CLEARANCE IN PRE DICTING GLOMERULAR FILTR ATION RATE. ESTIMATED GFR IS NOT APPLICABLE F OR DIALYSIS PATIENT S. 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 Mechanic ID - TRAN [id number] 04:41:00 Test Item Value Reference Range Comments PARTIAL THROMBOPLASTIN TIME (BEAKER) (test code 72.3 seconds 22.5-36.0 = 760) CBC W/PLT COUNT & AUTO [id number] 04:27:00 Test Item Value Reference Range Comments WHITE BLOOD CELL COUNT (BEAKER) (test code = 6.9 K/ L 3.5 -10.5 775) RED BLOOD CELL COUNT (BEAKER) (test code = 761) 2.81 M/ L 4.63-6.08 HEMOGLOBIN (BEAKER) (test code = 410) 8.3 GM/DL 13.7-17.5 HEMATOCRIT (BEAKER) (test code = 411) 26.9 % 40.1-51.0 MEAN CORPUSCULAR VOLUME (BEAKER) (test code = 95.7 fL 79 .0-92.2 753) MEAN CORPUSCULAR HEMOGLOBIN (BEAKER) (test code 29.5 pg 25.7-32.2 = 751) MEAN CORPUSCULAR HEMOGLOBIN CONC (BEAKER) (test 30.9 GM/DL 32.3-36.5 code = 752) RED CELL DISTRIBUTION WIDTH (BEAKER) (test code 15.9 % 11.6-14.4 = 412) PLATELET COUNT (BEAKER) (test code = 756) 252 K/CU MM 150-45 0 MEAN PLATELET VOLUME (BEAKER) (test code = 754) 11.0 fL 9.4-12.4 NUCLEATED RED BLOOD CELLS (BEAKER) (test code = 0 /100 WBC 0-0 413) NEUTROPHILS RELATIVE PERCENT (BEAKER) (test code 78 % = 429) LYMPHOCYTES RELATIVE PERCENT (BEAKER) (test code 14 % = 430) MONOCYTES RELATIVE PERCENT (BEAKER) (test code = 5 % 431) EOSINOPHILS RELATIVE PERCENT (BEAKER) (test code 3 % = 432) BASOPHILS RELATIVE PERCENT (BEAKER) (test code = 0 % 437) NEUTROPHILS ABSOLUTE COUNT (BEAKER) (test code = 5.35 K/ L 1.78-5.38 670) LYMPHOCYTES ABSOLUTE COUNT (BEAKER) (test code = 0.94 K/ L 1.32-3.57 414) MONOCYTES ABSOLUTE COUNT (BEAKER) (test code = 0.32 K/ L 0 .30-0.82 415) EOSINOPHILS ABSOLUTE COUNT (BEAKER) (test code = 0.20 K/ L 0.04-0.54 416) BASOPHILS ABSOLUTE COUNT (BEAKER) (test code = 0.02 K/ L 0 .01-0.08 417) IMMATURE GRANULOCYTES-RELATIVE PERCENT (BEAKER) 1 % 0-1 (test code = 2801) [id number] 23:27:00 Test Item Value Reference Range Comments MAGNESIUM (BEAKER) (test code = 2.3 mg/dL 1.6-2.6 Specimen slightly hemolyzed 627) 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 Mechanic ID - PIANDRA [id number] 23:27:00 Test Item Value Reference Range Comments POTASSIUM (BEAKER) (test code = 3.5 meq/L 3.5-5.1 Specimen slightly hemolyzed 379) 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 Mechanic ID - LV LPOCT-GLUCOSE [id number] 22:08:00 Test Item Value Reference Range Comments POC-GLUCOSE METER (BEAKER) 137 mg/dL 70-110 : JIMI ALEX AT [address] (test code = 1538) [facility], 7 7029: 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 leatha ID = [id number] for MACIEJ BERRY POCT-GLUCOSE [id number] 18:25:00 Test Item Value Reference Range Comments POC-GLUCOSE METER (BEAKER) 138 mg/dL 70-110 : JIIM ALEX AT [address] (test code = 1538) [facility], 7 7029: 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 leatha ID = [id number] for [place] WATTERS BLOOD [id number] 18:00:00 Test Item Value Reference Range Comments CULTURE (BEAKER) (test code = 1095) No growth in 5 days BLOOD [id number] 18:00:00 Test Item Value Reference Range Comments CULTURE (BEAKER) (test code = 1095) No growth in 5 days POCT-GLUCOSE [id number] 12:30:00 Test Item Value Reference Range Comments POC-GLUCOSE METER (BEAKER) 165 mg/dL 70-110 : JIMI ALEX AT [address] (test code = 1538) [facility], 7 7029: 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 leatha ID = [id number] for [place] WATTERS CBC W/PLT COUNT & AUTO [id number] 05:53:00 Test Item Value Reference Range Comments WHITE BLOOD CELL COUNT (BEAKER) (test code = 6.9 K/ L 3.5 -10.5 775) RED BLOOD CELL COUNT (BEAKER) (test code = 761) 2.72 M/ L 4.63-6.08 HEMOGLOBIN (BEAKER) (test code = 410) 8.0 GM/DL 13.7-17.5 HEMATOCRIT (BEAKER) (test code = 411) 25.8 % 40.1-51.0 MEAN CORPUSCULAR VOLUME (BEAKER) (test code = 94.9 fL 79 .0-92.2 753) MEAN CORPUSCULAR HEMOGLOBIN (BEAKER) (test code 29.4 pg 25.7-32.2 = 751) MEAN CORPUSCULAR HEMOGLOBIN CONC (BEAKER) (test 31.0 GM/DL 32.3-36.5 code = 752) RED CELL DISTRIBUTION WIDTH (BEAKER) (test code 15.9 % 11.6-14.4 = 412) PLATELET COUNT (BEAKER) (test code = 756) 251 K/CU MM 150-45 0 MEAN PLATELET VOLUME (BEAKER) (test code = 754) 11.3 fL 9.4-12.4 NUCLEATED RED BLOOD CELLS (BEAKER) (test code = 0 /100 WBC 0-0 413) NEUTROPHILS RELATIVE PERCENT (BEAKER) (test code 81 % = 429) LYMPHOCYTES RELATIVE PERCENT (BEAKER) (test code 13 % = 430) MONOCYTES RELATIVE PERCENT (BEAKER) (test code = 4 % 431) EOSINOPHILS RELATIVE PERCENT (BEAKER) (test code 1 % = 432) BASOPHILS RELATIVE PERCENT (BEAKER) (test code = 0 % 437) NEUTROPHILS ABSOLUTE COUNT (BEAKER) (test code = 5.52 K/ L 1.78-5.38 670) LYMPHOCYTES ABSOLUTE COUNT (BEAKER) (test code = 0.91 K/ L 1.32-3.57 414) MONOCYTES ABSOLUTE COUNT (BEAKER) (test code = 0.29 K/ L 0 .30-0.82 415) EOSINOPHILS ABSOLUTE COUNT (BEAKER) (test code = 0.09 K/ L 0.04-0.54 416) BASOPHILS ABSOLUTE COUNT (BEAKER) (test code = 0.01 K/ L 0 .01-0.08 417) IMMATURE GRANULOCYTES-RELATIVE PERCENT (BEAKER) 1 % 0-1 (test code = 2801) COMPREHENSIVE METABOLIC [id number] 05:32:00 Test Item Value Reference Range Comments TOTAL PROTEIN (BEAKER) 6.2 gm/dL 6.0-8.3 (test code = 770) ALBUMIN (BEAKER) (test 1.9 g/dL 3.5-5.0 code = 1145) ALKALINE PHOSPHATASE 97 U/L 40-150 (BEAKER) (test code = 346) BILIRUBIN TOTAL (BEAKER) 0.7 mg/dL 0.2-1.2 (test code = 377) SODIUM (BEAKER) (test code 149 meq/L 136-145 = 381) POTASSIUM (BEAKER) (test 3.6 meq/L 3.5-5.1 code = 379) CHLORIDE (BEAKER) (test 112 meq/L 98-107 code = 382) CO2 (BEAKER) (test code = 28 meq/L 22-29 355) BLOOD UREA NITROGEN 69 mg/dL 7-21 (BEAKER) (test code = 354) CREATININE (BEAKER) (test 1.78 mg/dL 0.57-1.25 code = 358) GLUCOSE RANDOM (BEAKER) 186 mg/dL 70-105 (test code = 652) CALCIUM (BEAKER) (test 9.0 mg/dL 8.4-10.2 code = 697) AST (SGOT) (BEAKER) (test 39 U/L 5-34 code = 353) ALT (SGPT) (BEAKER) (test 26 U/L 6-55 code = 347) EGFR (BEAKER) (test code = 37 mL/min/1.73 sq m E STIMATED GFR IS NOT 1092) ACCURATE CREA TININE CLEARANCE IN PRE DICTING GLOMERULAR FILTR ATION RATE. ESTIMATED GFR IS NOT APPLICABLE F OR DIALYSIS PATIENT S. 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 Mechanic ID - TRAN [id number] 05:25:00 Test Item Value Reference Range Comments PHOSPHORUS (BEAKER) (test code = 604) 3.7 mg/dL 2.3-4.7 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 Mechanic ID - TRAN [id number] 05:25:00 Test Item Value Reference Range Comments MAGNESIUM (BEAKER) (test code = 627) 2.2 mg/dL 1.6-2.6 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 Mechanic ID Jorge MAYFIELD WB-TYPE NATRIURETIC FACTOR (BNP)2019-12-29 05:14:00 Test Item Value Reference Range Comments B-TYPE NATRIURETIC PEPTIDE (BEAKER) (test code = 562 pg/mL 0-100 700) 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 Mechanic ID - TRAN [id number] 05:02:00 Test Item Value Reference Range Comments PARTIAL THROMBOPLASTIN TIME (BEAKER) (test code 70.5 seconds 22.5-36.0 = 760) CALCIUM, [id number] 04:39:00 Test Item Value Reference Range Comments CALCIUM IONIZED (BEAKER) (test code = 698) 1.19 mmol/L 1.12- 1.27 PH, BLOOD (BEAKER) (test code = 1810) 7.50 [id number] 01:00:00 Test Item Value Reference Range Comments POTASSIUM (BEAKER) (test code = 3.2 meq/L 3.5-5.1 Specimen slightly hemolyzed 379) 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 Mechanic ID - BSPOCT-GLUCOSE [id number] 00:50:00 Test Item Value Reference Range Comments POC-GLUCOSE METER (BEAKER) 130 mg/dL 70-110 : [facility] AT [facility] [address] [facility] (test code = 1538) [facility], 7 7030: 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 leatha ID = [id number] for MACIEJ BERRY POCT-GLUCOSE [id number] 19:07:00 Test Item Value Reference Range Comments POC-GLUCOSE METER (BEAKER) 145 mg/dL 70-110 : J[facility] ALEX AT [address] (test code = 1538) [facility], 7 7030: 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 leatha ID = [id number] for LAWRENCE BOYER BASIC METABOLIC [id number] 17:36:00 Test Item Value Reference Range Comments SODIUM (BEAKER) (test 151 meq/L 136-145 code = 381) POTASSIUM (BEAKER) (test 3.0 meq/L 3.5-5.1 code = 379) CHLORIDE (BEAKER) (test 112 meq/L 98-107 code = 382) CO2 (BEAKER) (test code = 28 meq/L 22-29 355) BLOOD UREA NITROGEN 64 mg/dL 7-21 (BEAKER) (test code = 354) CREATININE (BEAKER) (test 1.89 mg/dL 0.57-1.25 code = 358) GLUCOSE RANDOM (BEAKER) 181 mg/dL 70-105 (test code = 652) CALCIUM (BEAKER) (test 9.8 mg/dL 8.4-10.2 code = 697) EGFR (BEAKER) (test code 35 mL/min/1.73 sq m EST IMATED GFR IS NOT = 1092) ACCURATE CREA TININE CLEARANCE IN PRE DICTING GLOMERULAR FILTR ATION RATE. ESTIMATED GFR IS NOT APPLICABLE F OR DIALYSIS PATIENT S. 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 Mechanic ID - [id number] 17:28:00 Test Item Value Reference Range Comments PARTIAL THROMBOPLASTIN TIME (BEAKER) (test code 87.7 seconds 22.5-36.0 = 760) [id number] 13:09:00 Test Item Value Reference Range Comments PARTIAL THROMBOPLASTIN TIME (BEAKER) (test code 84.3 seconds 22.5-36.0 = 760) BLOOD [id number] 13:00:00 Test Item Value Reference Range Comments CULTURE (BEAKER) (test code = 1095) No growth in 5 days POCT-GLUCOSE [id number] 12:25:00 Test Item Value Reference Range Comments POC-GLUCOSE METER (BEAKER) 158 mg/dL 70-110 : J[facility] ALEX AT [address] (test code = 1538) [facility], 7 [address]30: 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 leatha ID = [id number] for LAWRENCE BOYER RAD, CHEST, 1 VIEW, NON [id number] 12:22:00Reason for exam:- >intubationShould this be performed at the bedside?->YesFINAL REPORT RAD, CHEST, 1 VIEW, NON DEPT INDICATION: intubation COMPARISON: Prior day's exam FINDINGS: Portable frontal view of the chest. IMPRESSION: Support Lines: Stable. Lungs and pleura: Unchanged airspace and pleural opacities. No pneumothorax.Heart and mediastinum: Stable contours. Stable surgical changes.Additional findings: None. Signed: Madeline Casas MDReport Verified Date/Time: 12/28/2019 12:22:37 Reading Location: [facility] Radiology Reading Room BLOOD [id number] 11:00:00 Test Item Value Reference Range Comments CULTURE (BEAKER) (test code = 1095) No growth in 5 days BLOOD [id number] 10:01:00 Test Item Value Reference Range Comments CULTURE (BEAKER) From Aerobic Arron ttle Only (test code = 1095) Same organism has been isolated from cu ltures(s) of the same body site within 3 days. R epeat identification a nd susceptibility t esting performed only a fter consultation wit the [facility].Refer to previous culture of* - staphylococcus l ugdunenisi GRAM STAIN RESULT From aerobic bottle (BEAKER) (test code = only: gram positive 1123) cocci in clusters POCT-GLUCOSE [id number] 06:57:00 Test Item Value Reference Range Comments POC-GLUCOSE METER (BEAKER) 178 mg/dL 70-110 : [facility] ALEX AT [facility] [address] [facility] (test code = 1538) [facility], 7 10: 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 leatha ID = [id number] for MACIEJ BERRY BLOOD GAS, [id number] 05:21:00 Test Item Value Reference Range Comments PH ARTERIAL (BEAKER) (test code = 383) 7.54 7.35-7.45 PCO2 ARTERIAL (BEAKER) (test code = 384) 36 mmHg 35-45 PO2 ARTERIAL (BEAKER) (test code = 385) 159 mmHg 80-90 O2 SATURATION ARTERIAL (BEAKER) (test code = 386) 99.2 % 96.0-97.0 HCO3 ARTERIAL (BEAKER) (test code = 388) 30 mmol/L 21-29 BASE EXCESS ARTERIAL (BEAKER) (test code = 387) 7.0 mmol/L -2.0-3.0 PATIENT TEMPERATURE (BEAKER) (test code = 1818) 37.0 C FIO2 (BEAKER) (test code = 1819) 40.0 % [id number] 05:18:00 Test Item Value Reference Range Comments MAGNESIUM (BEAKER) (test code = 2.4 mg/dL 1.6-2.6 Specimen slightly hemolyzed 627) 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 Mechanic ID Jorge MAYFIELD [id number] 05:18:00 Test Item Value Reference Range Comments PHOSPHORUS (BEAKER) (test code 3.9 mg/dL 2.3-4.7 S pecimen slightly hemolyzed = 604) 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 Mechanic ID Jorge MAYFIELD WCOMPREHENSIVE METABOLIC [id number] 05:18:00 Test Item Value Reference Range Comments TOTAL PROTEIN (BEAKER) 6.4 gm/dL 6.0-8.3 Specimen slightly (test code = 770) hemolyzed ALBUMIN (BEAKER) (test 2.0 g/dL 3.5-5.0 Specimen slightly code = 1145) hemolyzed ALKALINE PHOSPHATASE 95 U/L 40-150 (BEAKER) (test code = 346) BILIRUBIN TOTAL (BEAKER) 0.9 mg/dL 0.2-1.2 Specime n slightly (test code = 377) hemolyzed SODIUM (BEAKER) (test code 149 meq/L 136-145 = 381) POTASSIUM (BEAKER) (test 3.4 meq/L 3.5-5.1 Specime n slightly code = 379) hemolyzed CHLORIDE (BEAKER) (test 113 meq/L 98-107 code = 382) CO2 (BEAKER) (test code = 25 meq/L 22-29 355) BLOOD UREA NITROGEN 57 mg/dL 7-21 (BEAKER) (test code = 354) CREATININE (BEAKER) (test 1.96 mg/dL 0.57-1.25 Specim en slightly code = 358) hemolyzed GLUCOSE RANDOM (BEAKER) 188 mg/dL 70-105 (test code = 652) CALCIUM (BEAKER) (test 9.3 mg/dL 8.4-10.2 code = 697) AST (SGOT) (BEAKER) (test 44 U/L 5-34 Specim en slightly code = 353) hemolyzed ALT (SGPT) (BEAKER) (test 22 U/L 6-55 Specim en slightly code = 347) hemolyzed EGFR (BEAKER) (test code = 33 mL/min/1.73 sq m E STIMATED GFR IS NOT 1092) ACCURATE CREA TININE CLEARANCE IN PRE DICTING GLOMERULAR FILTR ATION RATE. ESTIMATED GFR IS NOT APPLICABLE F OR DIALYSIS PATIENT S. 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 Mechanic ID - TRAN WCBC W/PLT COUNT & AUTO [id number] 05:17:00 Test Item Value Reference Range Comments WHITE BLOOD CELL COUNT (BEAKER) (test code = 8.4 K/ L 3.5 -10.5 775) RED BLOOD CELL COUNT (BEAKER) (test code = 761) 2.79 M/ L 4.63-6.08 HEMOGLOBIN (BEAKER) (test code = 410) 8.3 GM/DL 13.7-17.5 HEMATOCRIT (BEAKER) (test code = 411) 26.2 % 40.1-51.0 MEAN CORPUSCULAR VOLUME (BEAKER) (test code = 93.9 fL 79 .0-92.2 753) MEAN CORPUSCULAR HEMOGLOBIN (BEAKER) (test code 29.7 pg 25.7-32.2 = 751) MEAN CORPUSCULAR HEMOGLOBIN CONC (BEAKER) (test 31.7 GM/DL 32.3-36.5 code = 752) RED CELL DISTRIBUTION WIDTH (BEAKER) (test code 15.9 % 11.6-14.4 = 412) PLATELET COUNT (BEAKER) (test code = 756) 255 K/CU MM 150-45 0 MEAN PLATELET VOLUME (BEAKER) (test code = 754) 11.2 fL 9.4-12.4 NUCLEATED RED BLOOD CELLS (BEAKER) (test code = 0 /100 WBC 0-0 413) NEUTROPHILS RELATIVE PERCENT (BEAKER) (test code 85 % = 429) LYMPHOCYTES RELATIVE PERCENT (BEAKER) (test code 11 % = 430) MONOCYTES RELATIVE PERCENT (BEAKER) (test code = 3 % 431) EOSINOPHILS RELATIVE PERCENT (BEAKER) (test code 1 % = 432) BASOPHILS RELATIVE PERCENT (BEAKER) (test code = 0 % 437) NEUTROPHILS ABSOLUTE COUNT (BEAKER) (test code = 7.08 K/ L 1.78-5.38 670) LYMPHOCYTES ABSOLUTE COUNT (BEAKER) (test code = 0.90 K/ L 1.32-3.57 414) MONOCYTES ABSOLUTE COUNT (BEAKER) (test code = 0.27 K/ L 0 .30-0.82 415) EOSINOPHILS ABSOLUTE COUNT (BEAKER) (test code = 0.04 K/ L 0.04-0.54 416) BASOPHILS ABSOLUTE COUNT (BEAKER) (test code = 0.01 K/ L 0 .01-0.08 417) IMMATURE GRANULOCYTES-RELATIVE PERCENT (BEAKER) 1 % 0-1 (test code = 2801) CALCIUM, [id number] 05:05:00 Test Item Value Reference Range Comments CALCIUM IONIZED (BEAKER) (test code = 698) 1.24 mmol/L 1.12- 1.27 PH, BLOOD (BEAKER) (test code = 1810) 7.53 [id number] 05:03:00 Test Item Value Reference Range Comments PARTIAL THROMBOPLASTIN TIME (BEAKER) (test code 64.3 seconds 22.5-36.0 = 760) POCT-GLUCOSE [id number] 00:13:00 Test Item Value Reference Range Comments POC-GLUCOSE METER (BEAKER) 154 mg/dL 70-110 : JIM[facility] ALEX AT [address] (test code = 1538) [facility], 7 30: 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 leatha ID = [id number] for MACIEJ BERRY [id number] 23:38:00 Test Item Value Reference Range Comments POTASSIUM (BEAKER) (test code = 379) 3.1 meq/L 3.5-5.1 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 Mechanic ID - [id number] 23:38:00 Test Item Value Reference Range Comments MAGNESIUM (BEAKER) (test code = 627) 2.3 mg/dL 1.6-2.6 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 Mechanic ID - DBPOCT-GLUCOSE [id number] 18:39:00 Test Item Value Reference Range Comments POC-GLUCOSE METER (BEAKER) 167 mg/dL 70-110 : JIMI ALEX AT [address] (test code = 1538) [facility], 7 [address]: 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 leatha ID = [id number] for LAWRENCE BOYER CBC W/PLT COUNT & AUTO [id number] 18:12:00 Test Item Value Reference Range Comments WHITE BLOOD CELL COUNT (BEAKER) (test code = 9.5 K/ L 3.5 -10.5 775) RED BLOOD CELL COUNT (BEAKER) (test code = 761) 2.79 M/ L 4.63-6.08 HEMOGLOBIN (BEAKER) (test code = 410) 8.3 GM/DL 13.7-17.5 HEMATOCRIT (BEAKER) (test code = 411) 26.0 % 40.1-51.0 MEAN CORPUSCULAR VOLUME (BEAKER) (test code = 93.2 fL 79 .0-92.2 753) MEAN CORPUSCULAR HEMOGLOBIN (BEAKER) (test code 29.7 pg 25.7-32.2 = 751) MEAN CORPUSCULAR HEMOGLOBIN CONC (BEAKER) (test 31.9 GM/DL 32.3-36.5 code = 752) RED CELL DISTRIBUTION WIDTH (BEAKER) (test code 16.0 % 11.6-14.4 = 412) PLATELET COUNT (BEAKER) (test code = 756) 257 K/CU MM 150-45 0 MEAN PLATELET VOLUME (BEAKER) (test code = 754) 11.3 fL 9.4-12.4 NUCLEATED RED BLOOD CELLS (BEAKER) (test code = 0 /100 WBC 0-0 413) NEUTROPHILS RELATIVE PERCENT (BEAKER) (test code 84 % = 429) LYMPHOCYTES RELATIVE PERCENT (BEAKER) (test code 12 % = 430) MONOCYTES RELATIVE PERCENT (BEAKER) (test code = 3 % 431) EOSINOPHILS RELATIVE PERCENT (BEAKER) (test code 0 % = 432) BASOPHILS RELATIVE PERCENT (BEAKER) (test code = 0 % 437) NEUTROPHILS ABSOLUTE COUNT (BEAKER) (test code = 7.93 K/ L 1.78-5.38 670) LYMPHOCYTES ABSOLUTE COUNT (BEAKER) (test code = 1.09 K/ L 1.32-3.57 414) MONOCYTES ABSOLUTE COUNT (BEAKER) (test code = 0.32 K/ L 0 .30-0.82 415) EOSINOPHILS ABSOLUTE COUNT (BEAKER) (test code = 0.03 K/ L 0.04-0.54 416) BASOPHILS ABSOLUTE COUNT (BEAKER) (test code = 0.01 K/ L 0 .01-0.08 417) IMMATURE GRANULOCYTES-RELATIVE PERCENT (BEAKER) 1 % 0-1 (test code = 2801) [id number] 15:37:00 Test Item Value Reference Range Comments POTASSIUM (BEAKER) (test code = 379) 3.2 meq/L 3.5-5.1 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 Mechanic ID - [id number] 15:37:00 Test Item Value Reference Range Comments MAGNESIUM (BEAKER) (test code = 627) 2.2 mg/dL 1.6-2.6 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 Mechanic ID - BSPOCT-GLUCOSE [id number] 14:19:00 Test Item Value Reference Range Comments POC-GLUCOSE METER (BEAKER) 146 mg/dL 70-110 : [facility] AT [facility] [address] [facility] (test code = 1538) [facility], 7 99: 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 leatha ID = [id number] for LAWRENCE BOYER LACTATE DEHYDROGENASE (LDH), BODY [id number] 10:47:00 Test Item Value Reference Range Comments LACTATE DEHYDROGENASE FLUID (BEAKER) (test code = 235 U/L 634) Absence of reference range indicates that normals have not been defined.Assay performance has not been validated for this type of specimen.POCT-GLUCOSE METER 2019-12-27 06:50:00 Test Item Value Reference Range Comments POC-GLUCOSE METER (BEAKER) 155 mg/dL 70-110 : J[facility] ALEX AT [facility] [address] (test code = 1538) [facility], 7 68: 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 leatha ID = [id number] for MACIEJ BERRY BLOOD GAS, [id number] 05:55:00 Test Item Value Reference Range Comments PH ARTERIAL (BEAKER) (test code = 383) 7.54 7.35-7.45 PCO2 ARTERIAL (BEAKER) (test code = 384) 31 mmHg 35-45 PO2 ARTERIAL (BEAKER) (test code = 385) 191 mmHg 80-90 O2 SATURATION ARTERIAL (BEAKER) (test code = 386) 99.5 % 96.0-97.0 HCO3 ARTERIAL (BEAKER) (test code = 388) 26 mmol/L 21-29 BASE EXCESS ARTERIAL (BEAKER) (test code = 387) 3.4 mmol/L -2.0-3.0 PATIENT TEMPERATURE (BEAKER) (test code = 1818) 37.0 C FIO2 (BEAKER) (test code = 1819) 30.0 % CBC W/PLT COUNT & AUTO [id number] 04:59:00 Test Item Value Reference Range Comments WHITE BLOOD CELL COUNT (BEAKER) (test code = 7.9 K/ L 3.5 -10.5 775) RED BLOOD CELL COUNT (BEAKER) (test code = 761) 2.59 M/ L 4.63-6.08 HEMOGLOBIN (BEAKER) (test code = 410) 7.6 GM/DL 13.7-17.5 HEMATOCRIT (BEAKER) (test code = 411) 24.1 % 40.1-51.0 MEAN CORPUSCULAR VOLUME (BEAKER) (test code = 93.1 fL 79 .0-92.2 753) MEAN CORPUSCULAR HEMOGLOBIN (BEAKER) (test code 29.3 pg 25.7-32.2 = 751) MEAN CORPUSCULAR HEMOGLOBIN CONC (BEAKER) (test 31.5 GM/DL 32.3-36.5 code = 752) RED CELL DISTRIBUTION WIDTH (BEAKER) (test code 16.3 % 11.6-14.4 = 412) PLATELET COUNT (BEAKER) (test code = 756) 231 K/CU MM 150-45 0 MEAN PLATELET VOLUME (BEAKER) (test code = 754) 10.8 fL 9.4-12.4 NUCLEATED RED BLOOD CELLS (BEAKER) (test code = 0 /100 WBC 0-0 413) NEUTROPHILS RELATIVE PERCENT (BEAKER) (test code 84 % = 429) LYMPHOCYTES RELATIVE PERCENT (BEAKER) (test code 11 % = 430) MONOCYTES RELATIVE PERCENT (BEAKER) (test code = 3 % 431) EOSINOPHILS RELATIVE PERCENT (BEAKER) (test code 1 % = 432) BASOPHILS RELATIVE PERCENT (BEAKER) (test code = 0 % 437) NEUTROPHILS ABSOLUTE COUNT (BEAKER) (test code = 6.67 K/ L 1.78-5.38 670) LYMPHOCYTES ABSOLUTE COUNT (BEAKER) (test code = 0.86 K/ L 1.32-3.57 414) MONOCYTES ABSOLUTE COUNT (BEAKER) (test code = 0.22 K/ L 0 .30-0.82 415) EOSINOPHILS ABSOLUTE COUNT (BEAKER) (test code = 0.06 K/ L 0.04-0.54 416) BASOPHILS ABSOLUTE COUNT (BEAKER) (test code = 0.01 K/ L 0 .01-0.08 417) IMMATURE GRANULOCYTES-RELATIVE PERCENT (BEAKER) 1 % 0-1 (test code = 2801) HEMOGLOBIN AND [id number] 04:58:00 Test Item Value Reference Range Comments HEMOGLOBIN (BEAKER) (test code = 410) 7.6 GM/DL 13.7-17.5 HEMATOCRIT (BEAKER) (test code = 411) 24.1 % 40.1-51.0 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 Mechanic ID - [id number] 04:54:00 Test Item Value Reference Range Comments PARTIAL THROMBOPLASTIN TIME (BEAKER) (test code 94.7 seconds 22.5-36.0 = 760) [id number] 04:51:00 Test Item Value Reference Range Comments MAGNESIUM (BEAKER) (test code = 627) 2.3 mg/dL 1.6-2.6 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 Mechanic ID - ADAMARIS MBASIC METABOLIC [id number] 04:51:00 Test Item Value Reference Range Comments SODIUM (BEAKER) (test 147 meq/L 136-145 code = 381) POTASSIUM (BEAKER) (test 3.4 meq/L 3.5-5.1 code = 379) CHLORIDE (BEAKER) (test 114 meq/L 98-107 code = 382) CO2 (BEAKER) (test code = 25 meq/L 22-29 355) BLOOD UREA NITROGEN 64 mg/dL 7-21 (BEAKER) (test code = 354) CREATININE (BEAKER) (test 1.90 mg/dL 0.57-1.25 code = 358) GLUCOSE RANDOM (BEAKER) 166 mg/dL 70-105 (test code = 652) CALCIUM (BEAKER) (test 8.9 mg/dL 8.4-10.2 code = 697) EGFR (BEAKER) (test code 35 mL/min/1.73 sq m EST IMATED GFR IS NOT = 1092) ACCURATE CREA TININE CLEARANCE IN PRE DICTING GLOMERULAR FILTR ATION RATE. ESTIMATED GFR IS NOT APPLICABLE F OR DIALYSIS PATIENT S. 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 Mechanic ID Jorge BAILON MRAD, CHEST, 1 VIEW, NON [id number] 04:19:00Reason for exam:->intubationShould this be performed at the bedside?->YesFINAL REPORT RAD, CHEST, 1 VIEW, NON DEPT INDICATION: intubation COMPARISON: Prior day's exam FINDINGS: Portable frontal view of the chest. IMPRESSION: Support Lines: Stable. Lungs and pleura: Unchanged airspace and pleural opacities. No pneumothorax.Heart and mediastinum: Stable contours. Additional findings: None. Signed: Iraida Henley Verified Date/Time: 12/27/2019 04:19:08 POCT-GLUCOSE [id number] 00:40:00 Test Item Value Reference Range Comments POC-GLUCOSE METER (BEAKER) 136 mg/dL 70-110 : J[facility] ALEX AT [address] (test code = 1538) [facility], 7 [address]: 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 leatha ID = [id number] for AMAURY MILLER [id number] 00:20:00 Test Item Value Reference Range Comments POTASSIUM (BEAKER) (test code = 379) 3.2 meq/L 3.5-5.1 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 Mechanic ID - STACYNHEMOGLOBIN AND [id number] 00:06:00 Test Item Value Reference Range Comments HEMOGLOBIN (BEAKER) (test code = 410) 7.8 GM/DL 13.7-17.5 HEMATOCRIT (BEAKER) (test code = 411) 25.4 % 40.1-51.0 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 Mechanic ID - [id number] 23:02:00 Test Item Value Reference Range Comments PARTIAL THROMBOPLASTIN TIME (BEAKER) (test code 75.0 seconds 22.5-36.0 = 760) [id number] 18:20:00 Test Item Value Reference Range Comments POTASSIUM (BEAKER) (test code = 379) 2.9 meq/L 3.5-5.1 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 Mechanic ID - STACY [id number] 18:20:00 Test Item Value Reference Range Comments MAGNESIUM (BEAKER) (test code = 627) 2.3 mg/dL 1.6-2.6 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 Mechanic ID - STACY NPOCT-GLUCOSE [id number] 17:33:00 Test Item Value Reference Range Comments POC-GLUCOSE METER (BEAKER) 127 mg/dL 70-110 : JMII ALEX AT [address] (test code = 1538) [facility], 7 [address]: 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 leatha ID = [id number] for BARR[place] BRISENO HEMOGLOBIN AND [id number] 14:43:00 Test Item Value Reference Range Comments HEMOGLOBIN (BEAKER) (test code = 410) 7.8 GM/DL 13.7-17.5 HEMATOCRIT (BEAKER) (test code = 411) 25.0 % 40.1-51.0 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 Mechanic ID - [id number]-GLUCOSE [id number] 13:37:00 Test Item Value Reference Range Comments POC-GLUCOSE METER (BEAKER) 123 mg/dL 70-110 : JIMI ALEX AT [address] (test code = 1538) [place], [address]: 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 leatha ID = [id number] for [place] BRISENO BLOOD [id number] 12:41:00 Test Item Value Reference Range Comments CULTURE (BEAKER) (test STAPHYLOCOCCUS From Aero bic And code = 1095) LUGDUNENSIS Anaerobic Bottle s Staphylococcus lugdunensis Clindamycin (test code = 10) Erythromycin (test code = 4) Levofloxacin (test code = 22) Linezolid (test code = 40) Nitrofurantoin (test code = 23) Oxacillin (test code = 14) Rifampin (test code = 43) Tetracycline (test code = 2) Trimethoprim + Sulfamethoxazole (test code = 47) Vancomycin (test code = 13) GRAM STAIN RESULT From aerobic and (BEAKER) (test code = anaerobic bottles: 1123) gram positive cocci in clusters [id number] 09:37:00 Test Item Value Reference Range Comments PARTIAL THROMBOPLASTIN TIME (BEAKER) (test code 97.2 seconds 22.5-36.0 = 760) RAD, CHEST, 1 VIEW, NON [id number] 09:11:00Reason for exam:- >intubationShould this be performed at the bedside?->YesFINAL REPORT Chest, one view HISTORY: Respiratory failure Comparison: 12/25/2019 Findings: Lungs: Stable bibasilar airspace disease. Heart: Stable cardiomegaly. Pleura: No pleuraleffusion or pneumothorax. Bones: Unremarkable. Lines/tubes: Unchanged in position. IMPRESSION: No significant interval change. Signed: Matthew Georgeepspeedy Verified Date/Time: 12/26/2019 09:11:59 R eading Location: [address] Consult Reading Room SPUTUM CULTURE + GRAM STAIN 2019-12-26 09:01:00 Test Item Value Reference Range Comments CULTURE (BEAKER) (test code See comment = 1095) GRAM STAIN RESULT (BEAKER) 1+ WBCs (test code = 1123) GRAM STAIN RESULT (BEAKER) 0-5 epithelial cells (test code = 815835) GRAM STAIN RESULT (BEAKER) <1+ gram positive cocci in pairs (test code = 814785) GRAM STAIN RESULT (BEAKER) <1+ budding yeast (test code = 425755) GRAM STAIN RESULT (BEAKER) <1+ gram variable coccobacilli (test code = 157811) 1+ YeastNo Normal respiratory juan presentHEMOGLOBIN AND [id number] 08:11:00 Test Item Value Reference Range Comments HEMOGLOBIN (BEAKER) (test code = 410) 6.6 GM/DL 13.7-17.5 HEMATOCRIT (BEAKER) (test code = 411) 20.9 % 40.1-51.0 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 Mechanic ID - [id number]-GLUCOSE [id number] 06:39:00 Test Item Value Reference Range Comments POC-GLUCOSE METER (BEAKER) 130 mg/dL 70-110 : JIMI ALEX AT [facility] [address] [facility] (test code = 1538) [facility], [address]: 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 leatha ID = [id number] for MACIEJ BERRY BLOOD GAS, [id number] 05:05:00 Test Item Value Reference Range Comments PH ARTERIAL (BEAKER) (test code = 383) 7.51 7.35-7.45 PCO2 ARTERIAL (BEAKER) (test code = 384) 34 mmHg 35-45 PO2 ARTERIAL (BEAKER) (test code = 385) 105 mmHg 80-90 O2 SATURATION ARTERIAL (BEAKER) (test code = 386) 98.2 % 96.0-97.0 HCO3 ARTERIAL (BEAKER) (test code = 388) 26 mmol/L 21-29 BASE EXCESS ARTERIAL (BEAKER) (test code = 387) 3.0 mmol/L -2.0-3.0 PATIENT TEMPERATURE (BEAKER) (test code = 1818) 37.5 C FIO2 (BEAKER) (test code = 1819) 30.0 % [id number] 03:31:00 Test Item Value Reference Range Comments MAGNESIUM (BEAKER) (test code = 2.1 mg/dL 1.6-2.6 Specimen slightly hemolyzed 627) 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 Mechanic ID - ADAMARIS MBASIC METABOLIC [id number] 03:31:00 Test Item Value Reference Range Comments SODIUM (BEAKER) (test 148 meq/L 136-145 code = 381) POTASSIUM (BEAKER) (test 3.8 meq/L 3.5-5.1 Specime n slightly code = 379) hemolyzed CHLORIDE (BEAKER) (test 117 meq/L 98-107 code = 382) CO2 (BEAKER) (test code = 23 meq/L 22-29 355) BLOOD UREA NITROGEN 66 mg/dL 7-21 (BEAKER) (test code = 354) CREATININE (BEAKER) (test 1.72 mg/dL 0.57-1.25 Specim en slightly code = 358) hemolyzed GLUCOSE RANDOM (BEAKER) 137 mg/dL 70-105 (test code = 652) CALCIUM (BEAKER) (test 8.6 mg/dL 8.4-10.2 code = 697) EGFR (BEAKER) (test code 39 mL/min/1.73 sq m EST IMATED GFR IS NOT = 1092) ACCURATE CREA TININE CLEARANCE IN PRE DICTING GLOMERULAR FILTR ATION RATE. ESTIMATED GFR IS NOT APPLICABLE F OR DIALYSIS PATIENT S. 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 Mechanic ID - ADAMARIS [id number] 03:18:00 Test Item Value Reference Range Comments PARTIAL THROMBOPLASTIN TIME (BEAKER) (test code 79.6 seconds 22.5-36.0 = 760) CBC W/PLT COUNT & AUTO [id number] 03:06:00 Test Item Value Reference Range Comments WHITE BLOOD CELL COUNT (BEAKER) (test code = 8.6 K/ L 3.5 -10.5 775) RED BLOOD CELL COUNT (BEAKER) (test code = 761) 2.25 M/ L 4.63-6.08 HEMOGLOBIN (BEAKER) (test code = 410) 6.6 GM/DL 13.7-17.5 HEMATOCRIT (BEAKER) (test code = 411) 21.6 % 40.1-51.0 MEAN CORPUSCULAR VOLUME (BEAKER) (test code = 96.0 fL 79 .0-92.2 753) MEAN CORPUSCULAR HEMOGLOBIN (BEAKER) (test code 29.3 pg 25.7-32.2 = 751) MEAN CORPUSCULAR HEMOGLOBIN CONC (BEAKER) (test 30.6 GM/DL 32.3-36.5 code = 752) RED CELL DISTRIBUTION WIDTH (BEAKER) (test code 16.8 % 11.6-14.4 = 412) PLATELET COUNT (BEAKER) (test code = 756) 251 K/CU MM 150-45 0 MEAN PLATELET VOLUME (BEAKER) (test code = 754) 10.7 fL 9.4-12.4 NUCLEATED RED BLOOD CELLS (BEAKER) (test code = 0 /100 WBC 0-0 413) NEUTROPHILS RELATIVE PERCENT (BEAKER) (test code 85 % = 429) LYMPHOCYTES RELATIVE PERCENT (BEAKER) (test code 11 % = 430) MONOCYTES RELATIVE PERCENT (BEAKER) (test code = 3 % 431) EOSINOPHILS RELATIVE PERCENT (BEAKER) (test code 1 % = 432) BASOPHILS RELATIVE PERCENT (BEAKER) (test code = 0 % 437) NEUTROPHILS ABSOLUTE COUNT (BEAKER) (test code = 7.30 K/ L 1.78-5.38 670) LYMPHOCYTES ABSOLUTE COUNT (BEAKER) (test code = 0.91 K/ L 1.32-3.57 414) MONOCYTES ABSOLUTE COUNT (BEAKER) (test code = 0.24 K/ L 0 .30-0.82 415) EOSINOPHILS ABSOLUTE COUNT (BEAKER) (test code = 0.07 K/ L 0.04-0.54 416) BASOPHILS ABSOLUTE COUNT (BEAKER) (test code = 0.01 K/ L 0 .01-0.08 417) IMMATURE GRANULOCYTES-RELATIVE PERCENT (BEAKER) 1 % 0-1 (test code = 2801) POCT-GLUCOSE [id number] 00:00:00 Test Item Value Reference Range Comments POC-GLUCOSE METER (BEAKER) 100 mg/dL 70-110 : [facility] AT [facility] [address] [facility] (test code = 1538) [facility], 7 [address]451: 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 leatha ID = [id number] for YE WEILISBET EOSINOPHIL SMEAR, [id number] 20:38:00 Test Item Value Reference Range Comments EOSINOPHIL SMEAR, URINE (BEAKER) (test code = No EOS seen No EOS seen 1850) SODIUM, RANDOM [id number] 20:30:00 Test Item Value Reference Range Comments SODIUM URINE (BEAKER) (test code = 243) < meq/L Reference Range: No NormalsOperator ID - [id number] 20:29:00 Test Item Value Reference Range Comments PARTIAL THROMBOPLASTIN TIME (BEAKER) (test code 56.5 seconds 22.5-36.0 = 760) CREATININE, RANDOM [id number] 19:41:00 Test Item Value Reference Range Comments CREATININE URINE (BEAKER) (test code = 375) 51.6 mg/dL Reference Range: No NormalsOperator ID - KENNPROTEIN, RANDOM [id number] 19:41:00 Test Item Value Reference Range Comments PROTEIN, URINE (BEAKER) (test code = 1569) 22 mg/dL 0-14 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 Mechanic ID - [id number] 18:41:00 Test Item Value Reference Range Comments PARTIAL THROMBOPLASTIN TIME (BEAKER) (test 114.5 seconds 22.5- 36.0 code = 760) POCT-GLUCOSE [id number] 18:24:00 Test Item Value Reference Range Comments POC-GLUCOSE METER (BEAKER) 130 mg/dL 70-110 : [facility] ALEX AT [address] (test code = 1538) [facility], 7 [address]: 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 leatha ID = [id number] for Richmond WATTERSSTE BLOOD [id number] 16:17:00 Test Item Value Reference Range Comments CULTURE (BEAKER) From Anaerobic Bottle Only (test code = 1095) Coagulase neg ative Staphylococcus GRAM STAIN RESULT From anaerobic bottle (BEAKER) (test code only: gram positive = 1123) cocci in clusters BODY FLUID CULTURE + GRAM [id number] 13:20:00 Test Item Value Reference Range Comments CULTURE (BEAKER) (test code = No growth 1095) GRAM STAIN RESULT (BEAKER) (test <1+ White blood cells seen code = 1123) GRAM STAIN RESULT (BEAKER) (test No organisms seen code = 14552) POCT-GLUCOSE [id number] 12:41:00 Test Item Value Reference Range Comments POC-GLUCOSE METER (BEAKER) 143 mg/dL 70-110 : [facility] AT [facility] [address] [facility] (test code = 1538) [facility], 7 [address]: 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 leatha ID = [id number] for Richmond WATTERSSTE [id number] 12:32:00 Test Item Value Reference Range Comments PARTIAL THROMBOPLASTIN TIME (BEAKER) (test code 92.9 seconds 22.5-36.0 = 760) U/S, RENAL, [id number] 10:05:00Reason for exam:->akiFINAL REPORT Comparison: CT of the abdomen and pelvis, 12/17/2019 Discussion:Sonographic evaluation of the kidneys is performed. Exam limited by body habitus and patient's condition. The right kidney measures 13 cm in length, with cortical thickness of 1.4 cm. The left kidney measures 12.5 cm in length, with cortical thickness of 0.2 cm. There is no focal renal mass, hydronephrosis, or shadowing renal calculus. Both kidneys symmetrically mildly increased cortical echogenicity. The known left renal cyst as well as a nonobstructing bilateral renal stones are not well depicted by this ultrasound. Bladder collapsed around a Patel catheter. IMPRESSION: Mild increased renal cortical echogenicity may be due to underlying medical renal disease. No hydronephrosis bilaterally. Signed: Alberto Webster MDReport Verified Date/Time: 12/25/2019 10:05:41 Reading Location: [address] Transitional Reading Room MAGNESIUM 2019-12-25 07:22:00 Test Item Value Reference Range Comments MAGNESIUM (BEAKER) (test code = 2.4 mg/dL 1.6-2.6 Specimen slightly hemolyzed 627) 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 Mechanic ID - JEN [id number] 07:22:00 Test Item Value Reference Range Comments PHOSPHORUS (BEAKER) (test code 3.9 mg/dL 2.3-4.7 S pecimen slightly hemolyzed = 604) 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 Mechanic ID - JEN CCOMPREHENSIVE METABOLIC [id number] 07:22:00 Test Item Value Reference Range Comments TOTAL PROTEIN (BEAKER) 6.2 gm/dL 6.0-8.3 Specimen slightly (test code = 770) hemolyzed ALBUMIN (BEAKER) (test 2.0 g/dL 3.5-5.0 Specimen slightly code = 1145) hemolyzed ALKALINE PHOSPHATASE 86 U/L 40-150 (BEAKER) (test code = 346) BILIRUBIN TOTAL (BEAKER) 0.9 mg/dL 0.2-1.2 Specime n slightly (test code = 377) hemolyzed SODIUM (BEAKER) (test code 147 meq/L 136-145 = 381) POTASSIUM (BEAKER) (test 3.7 meq/L 3.5-5.1 Specime n slightly code = 379) hemolyzed CHLORIDE (BEAKER) (test 117 meq/L 98-107 code = 382) CO2 (BEAKER) (test code = 24 meq/L 22-29 355) BLOOD UREA NITROGEN 57 mg/dL 7-21 (BEAKER) (test code = 354) CREATININE (BEAKER) (test 1.63 mg/dL 0.57-1.25 Specim en slightly code = 358) hemolyzed GLUCOSE RANDOM (BEAKER) 205 mg/dL 70-105 (test code = 652) CALCIUM (BEAKER) (test 9.0 mg/dL 8.4-10.2 code = 697) AST (SGOT) (BEAKER) (test 27 U/L 5-34 Specim en slightly code = 353) hemolyzed ALT (SGPT) (BEAKER) (test 16 U/L 6-55 Specim en slightly code = 347) hemolyzed EGFR (BEAKER) (test code = 41 mL/min/1.73 sq m E STIMATED GFR IS NOT 1092) ACCURATE CREA TININE CLEARANCE IN PRE DICTING GLOMERULAR FILTR ATION RATE. ESTIMATED GFR IS NOT APPLICABLE F OR DIALYSIS PATIENT S. 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 Mechanic ID - JEN CPOCT-GLUCOSE [id number] 06:58:00 Test Item Value Reference Range Comments POC-GLUCOSE METER (BEAKER) 179 mg/dL 70-110 : [facility] AT [facility] [address] [facility] (test code = 1538) [facility], 7 62: 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 leatha ID = [id number] for KIRBY, MANUELITO RAD, CHEST, 1 VIEW, NON [id number] 06:12:00Reason for exam:- >intubationShould this be performed at the bedside?->YesFINAL REPORT RAD, CHEST, 1 VIEW, NON DEPT INDICATION: intubation COMPARISON: Prior day's exam FINDINGS: Portable frontal view of the chest. IMPRESSION: Support Lines: No significant change. Lungs and pleura: Airspace and pleural opacities are unchanged. No pneumothorax.Heart and mediastinum: Stable contours. Additional findings: None. Signed: Alvaro Huerta MDReport Verified Date/Time: 12/25/2019 06:12:41 COMPLEMENT COMPONENT [id number] 05:28:00 Test Item Value Reference Range Comments C4 COMPLEMENT (BEAKER) (test code = 394) 28 mg/dL 15-57 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 Mechanic ID - ADAMARIS MCOMPLEMENT COMPONENT [id number] 05:28:00 Test Item Value Reference Range Comments C3 COMPLEMENT (BEAKER) (test code = 393) 142 mg/dL 82-193 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 Mechanic ID - ADAMARIS MCALCIUM, [id number] 05:24:00 Test Item Value Reference Range Comments CALCIUM IONIZED (BEAKER) (test code = 698) 1.21 mmol/L 1.12- 1.27 PH, BLOOD (BEAKER) (test code = 1810) 7.50 BLOOD GAS, [id number] 05:14:00 Test Item Value Reference Range Comments PH ARTERIAL (BEAKER) (test code = 383) 7.49 7.35-7.45 PCO2 ARTERIAL (BEAKER) (test code = 384) 35 mmHg 35-45 PO2 ARTERIAL (BEAKER) (test code = 385) 165 mmHg 80-90 O2 SATURATION ARTERIAL (BEAKER) (test code = 386) 99.2 % 96.0-97.0 HCO3 ARTERIAL (BEAKER) (test code = 388) 26 mmol/L 21-29 BASE EXCESS ARTERIAL (BEAKER) (test code = 387) 2.5 mmol/L -2.0-3.0 PATIENT TEMPERATURE (BEAKER) (test code = 1818) 36.7 C FIO2 (BEAKER) (test code = 1819) 30.0 % [id number] 05:11:00 Test Item Value Reference Range Comments PARTIAL THROMBOPLASTIN TIME (BEAKER) (test code 67.7 seconds 22.5-36.0 = 760) CBC W/PLT COUNT & AUTO [id number] 05:01:00 Test Item Value Reference Range Comments WHITE BLOOD CELL COUNT (BEAKER) (test code = 10.2 K/ L 3.5 -10.5 775) RED BLOOD CELL COUNT (BEAKER) (test code = 761) 2.48 M/ L 4.63-6.08 HEMOGLOBIN (BEAKER) (test code = 410) 7.3 GM/DL 13.7-17.5 HEMATOCRIT (BEAKER) (test code = 411) 23.9 % 40.1-51.0 MEAN CORPUSCULAR VOLUME (BEAKER) (test code = 96.4 fL 79 .0-92.2 753) MEAN CORPUSCULAR HEMOGLOBIN (BEAKER) (test code 29.4 pg 25.7-32.2 = 751) MEAN CORPUSCULAR HEMOGLOBIN CONC (BEAKER) (test 30.5 GM/DL 32.3-36.5 code = 752) RED CELL DISTRIBUTION WIDTH (BEAKER) (test code 16.6 % 11.6-14.4 = 412) PLATELET COUNT (BEAKER) (test code = 756) 311 K/CU MM 150-45 0 MEAN PLATELET VOLUME (BEAKER) (test code = 754) 10.5 fL 9.4-12.4 NUCLEATED RED BLOOD CELLS (BEAKER) (test code = 0 /100 WBC 0-0 413) NEUTROPHILS RELATIVE PERCENT (BEAKER) (test code 79 % = 429) LYMPHOCYTES RELATIVE PERCENT (BEAKER) (test code 15 % = 430) MONOCYTES RELATIVE PERCENT (BEAKER) (test code = 4 % 431) EOSINOPHILS RELATIVE PERCENT (BEAKER) (test code 1 % = 432) BASOPHILS RELATIVE PERCENT (BEAKER) (test code = 0 % 437) NEUTROPHILS ABSOLUTE COUNT (BEAKER) (test code = 8.09 K/ L 1.78-5.38 670) LYMPHOCYTES ABSOLUTE COUNT (BEAKER) (test code = 1.50 K/ L 1.32-3.57 414) MONOCYTES ABSOLUTE COUNT (BEAKER) (test code = 0.44 K/ L 0 .30-0.82 415) EOSINOPHILS ABSOLUTE COUNT (BEAKER) (test code = 0.06 K/ L 0.04-0.54 416) BASOPHILS ABSOLUTE COUNT (BEAKER) (test code = 0.01 K/ L 0 .01-0.08 417) IMMATURE GRANULOCYTES-RELATIVE PERCENT (BEAKER) 1 % 0-1 (test code = 2801) POCT-GLUCOSE [id number] 01:26:00 Test Item Value Reference Range Comments POC-GLUCOSE METER (BEAKER) 150 mg/dL 70-110 : [facility] AT [facility] [address] [facility] (test code = 1538) [facility], 7 [address]: 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 leatha ID = [id number] for Isaac MARMOLEJO POCT-GLUCOSE [id number] 17:58:00 Test Item Value Reference Range Comments POC-GLUCOSE METER (BEAKER) 166 mg/dL 70-110 : [facility] AT [facility] [address] [facility] (test code = 1538) [facility], 7 [address]: 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 leatha ID = [id number] for [place] WATTERS ELESTE EEG AWAKE AND [id number] 17:26:00Reason for exam:->seizuresCH[facility] [place] [facility] REPORT DATE(s) OF TEST: 12/16/2019DATE OF REPORT: 12/16/2019ACC: [id number]: [id number] time/date: 15:16Stop time/date: 15:37ICD-10: R56.9CPT Code: 88120 HISTORY: 74 year old man with encephalopathy, intubated, cooperative. He has an infected pacemaker pocket. MEDICATIONS THAT COULD AFFECT EEG: Dilaudid TECHNICAL SUMMARY: This is a digital video EEG recorded with 32 input channels reviewed with bipolar and referential montages using the modified combinatorial system nomenclature. Patient was monitored by qualified technologists continuously. DESCRIPTION OF RECORD:During the maximally alert state a 6 Hz posterior dominant rhythm was seen that was symmetric, somewhat reactive to eye opening and poorly regulated. More anteriorly, low voltage frontocentral theta predominated. Central mu rhythm was noted at 7 Hz. Drowsiness was characterized by more slowing but stage 2 sleep was not reached. INTERICTAL EPILEPTIFORM DISCHARGES: NoneEVENTS/SEIZURES: None HV: Hyperventilation was not done. PHOTIC STIMULATION: Photic stimulation was done from 1-33 Hz; no photic driving was seen; photoparoxysmal responses were absent. VIDEO EVENTS RECORDED: None ELECTROCARDIOGRAM EVENTS: Irregular Rhythm with 2 QRS morphologies IMPRESSION: Abnormal Awake and Drowsy EEG1. Slowing of the posterior dominant rhythm2. Generalized theta slowing. CLINICAL CORRELATION: The slowing is consistent with a mild degree of encephalopathy. A nonepileptiform EEG doesnot rule out epilepsy. If the clinical suspicion of epilepsy is high, consider a repeat EEG. PaulC. Marcell M.D., FACNS, FAAN, FAESProfessor of Neurology, [facility] Samaritan HospitalDirector, [facility] Neurophysiology Lab CREATINE KINASE (CK)2019-12-24 12:26:00 Test Item Value Reference Range Comments CREATINE KINASE TOTAL (BEAKER) (test code = 380) 13 U/L 29-200 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 Mechanic ID - PIAYA LPOCT-GLUCOSE [id number] 12:11:00 Test Item Value Reference Range Comments POC-GLUCOSE METER (BEAKER) 155 mg/dL 70-110 : [facility] AT [facility] [address] [facility] (test code = 1538) [facility], 7 30: 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 leatha ID = [id number] for JANENERichmond RICARDAFish RAD, CHEST, 1 VIEW, NON [id number] 10:12:00Reason for exam:- >intubationShould this be performed at the bedside?->YesFINAL REPORT TECHNIQUE: Frontal chest radiographs dated 12/24/2019. CLINICAL HISTORY: Intubation COMPARISON STUDY: Chest radiograph dated 12/23/2019 Impression:Life support tubes and devices are stable. Lungs increased perihilar airspace opacities are suggestive of pulmonary edema. Stable left pleural effusion. No pneumothorax. Cardiomediastinal silhouette is stable in appearance. Degenerative changes are seen in the spine. Signed: Erika Pateleport Verified Date/Time: 12/24/2019 10:12:54 Reading Location: [facility] Transitional Reading Room BASIC METABOLIC [id number] 09:59:00 Test Item Value Reference Range Comments SODIUM (BEAKER) (test 147 meq/L 136-145 code = 381) POTASSIUM (BEAKER) (test 3.7 meq/L 3.5-5.1 code = 379) CHLORIDE (BEAKER) (test 115 meq/L 98-107 code = 382) CO2 (BEAKER) (test code = 24 meq/L 22-29 355) BLOOD UREA NITROGEN 63 mg/dL 7-21 (BEAKER) (test code = 354) CREATININE (BEAKER) (test 1.66 mg/dL 0.57-1.25 code = 358) GLUCOSE RANDOM (BEAKER) 203 mg/dL 70-105 (test code = 652) CALCIUM (BEAKER) (test 8.7 mg/dL 8.4-10.2 code = 697) EGFR (BEAKER) (test code 40 mL/min/1.73 sq m EST IMATED GFR IS NOT = 1092) ACCURATE CREA TININE CLEARANCE IN PRE DICTING GLOMERULAR FILTR ATION RATE. ESTIMATED GFR IS NOT APPLICABLE F OR DIALYSIS PATIENT S. 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 Mechanic ID - LV MCCOYLOOD GAS, [id number] 08:25:00 Test Item Value Reference Range Comments PH ARTERIAL (BEAKER) (test code = 383) 7.46 7.35-7.45 PCO2 ARTERIAL (BEAKER) (test code = 384) 20 mmHg 35-45 PO2 ARTERIAL (BEAKER) (test code = 385) 219 mmHg 80-90 O2 SATURATION ARTERIAL (BEAKER) (test code = 99.5 % 96. 0-97.0 386) HCO3 ARTERIAL (BEAKER) (test code = 388) 14 mmol/L 21-29 BASE EXCESS ARTERIAL (BEAKER) (test code = 387) -9.6 mmol/L -2.0-3.0 PATIENT TEMPERATURE (BEAKER) (test code = 1818) 37.1 C FIO2 (BEAKER) (test code = 1819) 45.0 % POCT-GLUCOSE [id number] 06:32:00 Test Item Value Reference Range Comments POC-GLUCOSE METER (BEAKER) 186 mg/dL 70-110 : [facility] AT [facility] [address] [facility] (test code = 1538) [place], [address]: 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 leatha ID = [id number] for Lutz, Mirand a [id number] 03:57:00 Test Item Value Reference Range Comments MAGNESIUM (BEAKER) (test code = 2.3 mg/dL 1.6-2.6 Specimen slightly hemolyzed 627) 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 Mechanic ID - LV LBASIC METABOLIC [id number] 03:57:00 Test Item Value Reference Range Comments SODIUM (BEAKER) (test 146 meq/L 136-145 code = 381) POTASSIUM (BEAKER) (test 3.8 meq/L 3.5-5.1 Specime n slightly code = 379) hemolyzed CHLORIDE (BEAKER) (test 114 meq/L 98-107 code = 382) CO2 (BEAKER) (test code = 24 meq/L 22-29 355) BLOOD UREA NITROGEN 59 mg/dL 7-21 (BEAKER) (test code = 354) CREATININE (BEAKER) (test 1.72 mg/dL 0.57-1.25 Specim en slightly code = 358) hemolyzed GLUCOSE RANDOM (BEAKER) 242 mg/dL 70-105 (test code = 652) CALCIUM (BEAKER) (test 8.9 mg/dL 8.4-10.2 code = 697) EGFR (BEAKER) (test code 39 mL/min/1.73 sq m EST IMATED GFR IS NOT = 1092) ACCURATE CREA TININE CLEARANCE IN PRE DICTING GLOMERULAR FILTR ATION RATE. ESTIMATED GFR IS NOT APPLICABLE F OR DIALYSIS PATIENT S. 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 Mechanic ELLY AWAN LLACTIC ACID, [id number] 03:44:00 Test Item Value Reference Range Comments LACTATE BLOOD ARTERIAL (2) (BEAKER) (test code = 1.9 mmol/L 0.5-2.2 2874) 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 Mechanic ELLY AWAN LCBC W/PLT COUNT & AUTO [id number] 03:40:00 Test Item Value Reference Range Comments WHITE BLOOD CELL COUNT (BEAKER) (test code = 12.0 K/ L 3.5 -10.5 775) RED BLOOD CELL COUNT (BEAKER) (test code = 761) 2.52 M/ L 4.63-6.08 HEMOGLOBIN (BEAKER) (test code = 410) 7.5 GM/DL 13.7-17.5 HEMATOCRIT (BEAKER) (test code = 411) 23.8 % 40.1-51.0 MEAN CORPUSCULAR VOLUME (BEAKER) (test code = 94.4 fL 79 .0-92.2 753) MEAN CORPUSCULAR HEMOGLOBIN (BEAKER) (test code 29.8 pg 25.7-32.2 = 751) MEAN CORPUSCULAR HEMOGLOBIN CONC (BEAKER) (test 31.5 GM/DL 32.3-36.5 code = 752) RED CELL DISTRIBUTION WIDTH (BEAKER) (test code 16.8 % 11.6-14.4 = 412) PLATELET COUNT (BEAKER) (test code = 756) 307 K/CU MM 150-45 0 MEAN PLATELET VOLUME (BEAKER) (test code = 754) 11.0 fL 9.4-12.4 NUCLEATED RED BLOOD CELLS (BEAKER) (test code = 0 /100 WBC 0-0 413) NEUTROPHILS RELATIVE PERCENT (BEAKER) (test code 82 % = 429) LYMPHOCYTES RELATIVE PERCENT (BEAKER) (test code 13 % = 430) MONOCYTES RELATIVE PERCENT (BEAKER) (test code = 4 % 431) EOSINOPHILS RELATIVE PERCENT (BEAKER) (test code 0 % = 432) BASOPHILS RELATIVE PERCENT (BEAKER) (test code = 0 % 437) NEUTROPHILS ABSOLUTE COUNT (BEAKER) (test code = 9.86 K/ L 1.78-5.38 670) LYMPHOCYTES ABSOLUTE COUNT (BEAKER) (test code = 1.49 K/ L 1.32-3.57 414) MONOCYTES ABSOLUTE COUNT (BEAKER) (test code = 0.48 K/ L 0 .30-0.82 415) EOSINOPHILS ABSOLUTE COUNT (BEAKER) (test code = 0.01 K/ L 0.04-0.54 416) BASOPHILS ABSOLUTE COUNT (BEAKER) (test code = 0.01 K/ L 0 .01-0.08 417) IMMATURE GRANULOCYTES-RELATIVE PERCENT (BEAKER) 1 % 0-1 (test code = 2801) [id number] 02:59:00 Test Item Value Reference Range Comments PARTIAL THROMBOPLASTIN TIME (BEAKER) (test code 88.1 seconds 22.5-36.0 = 760) POCT-GLUCOSE [id number] 00:23:00 Test Item Value Reference Range Comments POC-GLUCOSE METER (BEAKER) 219 mg/dL 70-110 : [facility] [address] [facility] (test code = 1538[facility] [place], [address]: 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 leatha ID = [id number] for Lutz, Mirand a [id number] 20:07:00 Test Item Value Reference Range Comments PARTIAL THROMBOPLASTIN TIME (BEAKER) (test code 70.4 seconds 22.5-36.0 = 760) PET/CT, WHOLE BODY [id number] 19:37:00FINAL REPORT PROCEDURE: FDG PET/CT for inflammation CPT CODE: 56721 INDICATION: FDG PET/CT was obtained localize persistent bacteremia of unknown COMPARISON: None PROTOCOL: 11.6 mCi of F-18 fluorodeoxyglucose (FDG) was injected intravenously via NA. Serum glucose was NA mg/dL prior to injection. Images were begun NA minutes after injection and included the vertex of the skull to the feet. Limited low-dose CT images were also obtained for attenuation correction and anatomic correlation of PET scan abnormalities. Radiographic contrast was not administered. A diagnostic CT scan with contrast agents was not performed. FINDINGS: Due to beam hardeningthe CT scan is of marginal quality. Head and Neck: No abnormal FDG activity within the visualized brain, orbits, paranasal sinuses, pharyngeal soft tissues, and thyroid gland. No FDG-avid cervical lymph nodes. Chest: There is a focus in the right superior anterior mediastinum just deep to the first rib articulation to the sternum. Another focus of increased activity is seen in the mediastinum just anterior to the right bronchus at the ada. There is consolidation, atelectasis in the left lower lobe that shows mild increase intensity. In the right lower lobe as intense focus is several millimeters in size and corresponds to the density. Increased intensity seen in the inferior aspect of the posterior basal segment. Abdomen/Pelvis: No abnormal FDG activity within the liver, gallbladder, spleen, pancreas, kidneys, adrenals, and bowel. No FDG-avid mesenteric or retroperitoneal lymph nodes. No abnormal FDG activity within the pelvis. No FDG- avid pelvic or inguinal lymph nodes. Nonspecific intestinal activity is noted. Musculoskeletal: No FDG-avid skeletal lesions. IMPRESSION: Abnormal exam. T here are two foci noted in the mediastinum increased activity in the right lower lobe consistent with inflammatory processes. Nonspecific bowel activity was seen. Focal inflammation cannot be excluded.Signed: Susan Craig Verified Date/Time: 12/23/2019 19:37:11 POCT-GLUCOSE [id number] 18:31:00 Test Item Value Reference Range Comments POC-GLUCOSE METER (BEAKER) 158 mg/dL 70-110 : [facility] AT [facility] [address] (test code = 1538) [facility], 7 7030: 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 leatha ID = [id number] for LUCY HARRIS RESPIRATORY PANEL [id number] 18:28:00 Test Item Value Reference Range Comments HUMAN METAPNEUMOVIRUS (BEAKER) (test Not detected Not detecte d, Equivocal code = 2683) RHINOVIRUS (BEAKER) (test code = 2684) Not detected Not detec alex, Equivocal INFLUENZA A (BEAKER) (test code = 2685) Not detected Not dete cted, Equivocal INFLUENZA A (NO SUBTYPE) (test code = 3606) INFLUENZA A SUBTYPE H1 (BEAKER) (test code = 2686) INFLUENZA A SUBTYPE H3 (BEAKER) (test code = 2687) INFLUENZA A SUBTYPE H1-2009 (BEAKER) (test code = 3198) INFLUENZA B (BEAKER) (test code = 2688) Not detected Not dete cted, Equivocal RESPIRATORY SYNCYTIAL VIRUS (BEAKER) Not detected Not detecte d, Equivocal (test code = 3199) PARAINFLUENZA VIRUS 1 (BEAKER) (test Not detected Not detecte d, Equivocal code = 2691) PARAINFLUENZA VIRUS 2 (BEAKER) (test Not detected Not detecte d, Equivocal code = 2692) PARAINFLUENZA VIRUS 3 (BEAKER) (test Not detected Not detecte d, Equivocal code = 2693) PARAINFLUENZA VIRUS 4 (BEAKER) (test Not detected Not detecte d, Equivocal code = 3200) ADENOVIRUS (BEAKER) (test code = 2694) Not detected Not detec alex, Equivocal CORONAVIRUS 229E (BEAKER) (test code = Not detected Not detec alex, Equivocal 3201) CORONAVIRUS HKU1 (BEAKER) (test code = Not detected Not detec alex, Equivocal 3202) CORONAVIRUS NL63 (BEAKER) (test code = Not detected Not detec alex, Equivocal 3203) CORONAVIRUS OC43 (BEAKER) (test code = Not detected Not detec alex, Equivocal 3204) BORDETELLA PERTUSSIS (BEAKER) (test Not detected Not detected , Equivocal code = 3205) CHLAMYDOPHILA PNEUMONIAE (BEAKER) (test Not detected Not dete cted, Equivocal code = 3206) MYCOPLASMA PNEUMONIAE (BEAKER) (test Not detected Not detecte d, Equivocal code = 3207) Other viruses and bacteria not targeted by this PCR panel cannot be excluded; therefore clinical correlation and follow up of serology, culture results, and other molecular studies is required. The results are not intended to be used as the sole means for clinical diagnosis or patient management decisions. This sample was tested at the [facility] Molecular Diagnostics Laboratory using the [employer] FilmArray Respiratory Panel. It is FDA cleared and has been verified and approved by the [facility] Molecular Diagnostics Laboratory for clinical use on nasopharyngeal swab specimens.The performance of the FilmArrayRP has not been established in individuals who received influenza vaccine. Recent administration ofa nasal influenza vaccine may cause false positive results for Influenza A and/orInfluenza B.POCT-GLUCOSE [id number] 15:39:00 Test Item Value Reference Range Comments POC-GLUCOSE METER ([facility]) 169 mg/dL 70-110 : Not ified RN/MD: TESTED AT (test code = 1538) [facility] [address] [facility] [place], [address]: 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 Mechanic/ Dairy Feed Mixing Operator ID = [id number] for RAHEL MENDEZ [id number] 14:46:00 Test Item Value Reference Range Comments CORTISOL, TOTAL ([facility]) (test code = 2755) 22.9 ug/dL 3.7- 19.4 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 Mechanic ID - KARL MPOCT-GLUCOSE [id number] 14:29:00 Test Item Value Reference Range Comments POC-GLUCOSE METER ([facility]) 153 mg/dL 70-110 : JIMI ALEX AT [facility] [address] (test code = 1538) [facility], [address]: 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 leatha ID = [id number] for GIL LAINEZ [id number] 14:27:00 Test Item Value Reference Range Comments PARTIAL THROMBOPLASTIN TIME ([facility]) (test code 34.9 seconds 22.5-36.0 = 760) LACTIC ACID, [id number] 14:25:00 Test Item Value Reference Range Comments LACTATE BLOOD ARTERIAL (2) ([facility]) (test code = 1.8 mmol/L 0.5-2.2 2874) 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 Mechanic ID - IBAN FHEMOGLOBIN AND [id number] 14:10:00 Test Item Value Reference Range Comments HEMOGLOBIN (AKER) (test code = 410) 8.2 GM/DL 13.7-17.5 HEMATOCRIT (BEAKER) (test code = 411) 25.7 % 40.1-51.0 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 Mechanic ID - [id number] GAS, [id number] 14:04:00 Test Item Value Reference Range Comments PH ARTERIAL (BEAKER) (test code = 383) 7.49 7.35-7.45 PCO2 ARTERIAL (BEAKER) (test code = 384) 35 mmHg 35-45 PO2 ARTERIAL (BEAKER) (test code = 385) 86 mmHg 80-90 O2 SATURATION ARTERIAL (BEAKER) (test code = 386) 97.0 % 96.0-97.0 HCO3 ARTERIAL (BEAKER) (test code = 388) 26 mmol/L 21-29 BASE EXCESS ARTERIAL (BEAKER) (test code = 387) 3.1 mmol/L -2.0-3.0 PATIENT TEMPERATURE (BEAKER) (test code = 1818) 37.7 C FIO2 (BEAKER) (test code = 1819) 45.0 % [id number] 13:21:00 Test Item Value Reference Range Comments MAGNESIUM (BEAKER) (test code = 2.2 mg/dL 1.6-2.6 Specimen slightly hemolyzed 627) 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 Mechanic ID - KARL MBASIC METABOLIC [id number] 13:21:00 Test Item Value Reference Range Comments SODIUM (BEAKER) (test 147 meq/L 136-145 code = 381) POTASSIUM (BEAKER) (test 3.8 meq/L 3.5-5.1 Specime n slightly code = 379) hemolyzed CHLORIDE (BEAKER) (test 115 meq/L 98-107 code = 382) CO2 (BEAKER) (test code = 26 meq/L 22-29 355) BLOOD UREA NITROGEN 55 mg/dL 7-21 (BEAKER) (test code = 354) CREATININE (BEAKER) (test 1.48 mg/dL 0.57-1.25 Specim en slightly code = 358) hemolyzed GLUCOSE RANDOM (BEAKER) 178 mg/dL 70-105 (test code = 652) CALCIUM (BEAKER) (test 9.0 mg/dL 8.4-10.2 code = 697) EGFR (BEAKER) (test code 46 mL/min/1.73 sq m EST IMATED GFR IS NOT = 1092) ACCURATE CREA TININE CLEARANCE IN PRE DICTING GLOMERULAR FILTR ATION RATE. ESTIMATED GFR IS NOT APPLICABLE F OR DIALYSIS PATIENT S. 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 Mechanic ID - KARL ANTONY [id number] 13:07:00 Test Item Value Reference Range Comments CULTURE (BEAKER) From Aerobic An d Anaerobic (test code = 1095) Bottles Same organism has been isolated fr om cultures(s) of t he same body site within 3 days. Repeat identific ation and susceptibility t esting performed only a fter consultation wit h the [facility] ology laboratory.Refer to previous culture of* - Staphylococcus l ugdunensis GRAM STAIN RESULT From aerobic and (BEAKER) (test code anaerobic bottles: = 1123) gram positive cocci in clusters Previously reported organism is no longer reported. Please contact the Microbiology Department for additional information.CBC W/PLT COUNT & AUTO [id number] 11:03:00 Test Item Value Reference Range Comments WHITE BLOOD CELL COUNT (BEAKER) (test code = 12.0 K/ L 3.5 -10.5 775) RED BLOOD CELL COUNT (BEAKER) (test code = 761) 2.70 M/ L 4.63-6.08 HEMOGLOBIN (BEAKER) (test code = 410) 8.0 GM/DL 13.7-17.5 HEMATOCRIT (BEAKER) (test code = 411) 25.2 % 40.1-51.0 MEAN CORPUSCULAR VOLUME (BEAKER) (test code = 93.3 fL 79 .0-92.2 753) MEAN CORPUSCULAR HEMOGLOBIN (BEAKER) (test code 29.6 pg 25.7-32.2 = 751) MEAN CORPUSCULAR HEMOGLOBIN CONC (BEAKER) (test 31.7 GM/DL 32.3-36.5 code = 752) RED CELL DISTRIBUTION WIDTH (BEAKER) (test code 16.7 % 11.6-14.4 = 412) PLATELET COUNT (BEAKER) (test code = 756) 313 K/CU MM 150-45 0 MEAN PLATELET VOLUME (BEAKER) (test code = 754) 10.9 fL 9.4-12.4 NUCLEATED RED BLOOD CELLS (BEAKER) (test code = 0 /100 WBC 0-0 413) NEUTROPHILS RELATIVE PERCENT (BEAKER) (test code 80 % = 429) LYMPHOCYTES RELATIVE PERCENT (BEAKER) (test code 16 % = 430) MONOCYTES RELATIVE PERCENT (BEAKER) (test code = 4 % 431) EOSINOPHILS RELATIVE PERCENT (BEAKER) (test code 0 % = 432) BASOPHILS RELATIVE PERCENT (BEAKER) (test code = 0 % 437) NEUTROPHILS ABSOLUTE COUNT (BEAKER) (test code = 9.58 K/ L 1.78-5.38 670) LYMPHOCYTES ABSOLUTE COUNT (BEAKER) (test code = 1.86 K/ L 1.32-3.57 414) MONOCYTES ABSOLUTE COUNT (BEAKER) (test code = 0.42 K/ L 0 .30-0.82 415) EOSINOPHILS ABSOLUTE COUNT (BEAKER) (test code = 0.02 K/ L 0.04-0.54 416) BASOPHILS ABSOLUTE COUNT (BEAKER) (test code = 0.01 K/ L 0 .01-0.08 417) IMMATURE GRANULOCYTES-RELATIVE PERCENT (BEAKER) 1 % 0-1 (test code = 2801) [id number] 11:03:00 Test Item Value Reference Range Comments PARTIAL THROMBOPLASTIN TIME (BEAKER) (test 147.2 seconds 22.5- 36.0 code = 760) URINALYSIS W/ REFLEX URINE [id number] 10:00:00 Test Item Value Reference Range Comments COLOR (BEAKER) (test code = 470) Yellow CLARITY (BEAKER) (test code = 469) Clear SPECIFIC GRAVITY UA (BEAKER) (test code = 468) 1.024 1 .001-1.035 PH UA (BEAKER) (test code = 467) 5.5 5.0-8.0 PROTEIN UA (BEAKER) (test code = 464) 20 mg/dL Negative GLUCOSE UA (BEAKER) (test code = 365) Negative Negative KETONES UA (BEAKER) (test code = 371) Negative Negative BILIRUBIN UA (BEAKER) (test code = 462) Negative Negative BLOOD UA (BEAKER) (test code = 461) Trace Negative NITRITE UA (BEAKER) (test code = 465) Negative Negative LEUKOCYTE ESTERASE UA (BEAKER) (test code = 466) Negative Negative UROBILINOGEN UA (BEAKER) (test code = 463) 4.0 mg/dL 0.2-1 .0 RBC UA (BEAKER) (test code = 519) 5 /HPF WBC UA (BEAKER) (test code = 520) 2 /HPF BACTERIA (BEAKER) (test code = 517) Occasional MUCUS (BEAKER) (test code = 1574) Occasional HYALINE CASTS (BEAKER) (test code = 514) 1 /LPF SOURCE(BEAKER) (test code = 2795) 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 Mechanic ID - [auto]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 Mechanic ID - techPOCT-GLUCOSE [id number] 09:32:00 Test Item Value Reference Range Comments POC-GLUCOSE METER (BEAKER) 181 mg/dL 70-110 : JIMI ALEX AT [address] (test code = 1538) [facility], [address]: 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 leatha ID = [id number] for Lutz, Mirand a POCT-GLUCOSE [id number] 09:27:00 Test Item Value Reference Range Comments POC-GLUCOSE METER (BEAKER) 151 mg/dL 70-110 : JIMI ALEX AT [address] (test code = 1538) [facility], [address]: 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 leatha ID = [id number] for MARMOLEJO, G ENESIS BLOOD GAS, [id number] 05:53:00 Test Item Value Reference Range Comments PH ARTERIAL (BEAKER) (test code = 383) 7.49 7.35-7.45 PCO2 ARTERIAL (BEAKER) (test code = 384) 35 mmHg 35-45 PO2 ARTERIAL (BEAKER) (test code = 385) 142 mmHg 80-90 O2 SATURATION ARTERIAL (BEAKER) (test code = 386) 99.0 % 96.0-97.0 HCO3 ARTERIAL (BEAKER) (test code = 388) 26 mmol/L 21-29 BASE EXCESS ARTERIAL (BEAKER) (test code = 387) 2.7 mmol/L -2.0-3.0 PATIENT TEMPERATURE (BEAKER) (test code = 1818) 37.0 C FIO2 (BEAKER) (test code = 1819) 45.0 % [id number] 03:27:00 Test Item Value Reference Range Comments PARTIAL THROMBOPLASTIN TIME (BEAKER) (test 119.7 seconds 22.5- 36.0 code = 760) [id number] 03:01:00 Test Item Value Reference Range Comments MAGNESIUM (BEAKER) (test code = 627) 2.4 mg/dL 1.6-2.6 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 Mechanic ID - PIAYA LBASIC METABOLIC [id number] 03:01:00 Test Item Value Reference Range Comments SODIUM (BEAKER) (test 146 meq/L 136-145 code = 381) POTASSIUM (BEAKER) (test 3.4 meq/L 3.5-5.1 code = 379) CHLORIDE (BEAKER) (test 113 meq/L 98-107 code = 382) CO2 (BEAKER) (test code = 24 meq/L 22-29 355) BLOOD UREA NITROGEN 54 mg/dL 7-21 (BEAKER) (test code = 354) CREATININE (BEAKER) (test 1.42 mg/dL 0.57-1.25 code = 358) GLUCOSE RANDOM (BEAKER) 249 mg/dL 70-105 (test code = 652) CALCIUM (BEAKER) (test 8.7 mg/dL 8.4-10.2 code = 697) EGFR (BEAKER) (test code 48 mL/min/1.73 sq m EST IMATED GFR IS NOT = 1092) ACCURATE CREA TININE CLEARANCE IN PRE DICTING GLOMERULAR FILTR ATION RATE. ESTIMATED GFR IS NOT APPLICABLE F OR DIALYSIS PATIENT S. 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 Mechanic ID - PIAYA LCBC W/PLT COUNT & AUTO [id number] 02:53:00 Test Item Value Reference Range Comments WHITE BLOOD CELL COUNT (BEAKER) (test code = 11.7 K/ L 3.5 -10.5 775) RED BLOOD CELL COUNT (BEAKER) (test code = 761) 2.36 M/ L 4.63-6.08 HEMOGLOBIN (BEAKER) (test code = 410) 6.8 GM/DL 13.7-17.5 HEMATOCRIT (BEAKER) (test code = 411) 22.4 % 40.1-51.0 MEAN CORPUSCULAR VOLUME (BEAKER) (test code = 94.9 fL 79 .0-92.2 753) MEAN CORPUSCULAR HEMOGLOBIN (BEAKER) (test code 28.8 pg 25.7-32.2 = 751) MEAN CORPUSCULAR HEMOGLOBIN CONC (BEAKER) (test 30.4 GM/DL 32.3-36.5 code = 752) RED CELL DISTRIBUTION WIDTH (BEAKER) (test code 16.6 % 11.6-14.4 = 412) PLATELET COUNT (BEAKER) (test code = 756) 311 K/CU MM 150-45 0 MEAN PLATELET VOLUME (BEAKER) (test code = 754) 11.0 fL 9.4-12.4 NUCLEATED RED BLOOD CELLS (BEAKER) (test code = 0 /100 WBC 0-0 413) NEUTROPHILS RELATIVE PERCENT (BEAKER) (test code 81 % = 429) LYMPHOCYTES RELATIVE PERCENT (BEAKER) (test code 14 % = 430) MONOCYTES RELATIVE PERCENT (BEAKER) (test code = 4 % 431) EOSINOPHILS RELATIVE PERCENT (BEAKER) (test code 0 % = 432) BASOPHILS RELATIVE PERCENT (BEAKER) (test code = 0 % 437) NEUTROPHILS ABSOLUTE COUNT (BEAKER) (test code = 9.45 K/ L 1.78-5.38 670) LYMPHOCYTES ABSOLUTE COUNT (BEAKER) (test code = 1.65 K/ L 1.32-3.57 414) MONOCYTES ABSOLUTE COUNT (BEAKER) (test code = 0.46 K/ L 0 .30-0.82 415) EOSINOPHILS ABSOLUTE COUNT (BEAKER) (test code = 0.00 K/ L 0.04-0.54 416) BASOPHILS ABSOLUTE COUNT (BEAKER) (test code = 0.01 K/ L 0 .01-0.08 417) IMMATURE GRANULOCYTES-RELATIVE PERCENT (BEAKER) 1 % 0-1 (test code = 2801) BLOOD GAS, [id number] 02:45:00 Test Item Value Reference Range Comments PH ARTERIAL (BEAKER) (test code = 383) 7.46 7.35-7.45 PCO2 ARTERIAL (BEAKER) (test code = 384) 39 mmHg 35-45 PO2 ARTERIAL (BEAKER) (test code = 385) 220 mmHg 80-90 O2 SATURATION ARTERIAL (BEAKER) (test code = 386) 99.5 % 96.0-97.0 HCO3 ARTERIAL (BEAKER) (test code = 388) 27 mmol/L 21-29 BASE EXCESS ARTERIAL (BEAKER) (test code = 387) 3.1 mmol/L -2.0-3.0 PATIENT TEMPERATURE (BEAKER) (test code = 1818) 37.5 C FIO2 (BEAKER) (test code = 1819) 60.0 % RAD, CHEST, 1 VIEW, NON [id number] 02:01:00Reason for exam:->sobShould this be performed at the bedside?->YesFINAL REPORT RAD, CHEST, 1 VIEW, NON DEPT INDICATION: sob COMPARISON: Prior day's exam FINDINGS: Portable frontal view of the chest. IMPRESSION: Support Lines: Endotracheal tube terminates 4.5 cm above the ada. Enteric tube is seen coursing inferiorly. Otherwise unchanged support apparatus.Lungs and pleura: Unchanged airspace and pleural opacities. No pneumothorax.Heart and mediastinum: Stable contours. Additional findings: None. Signed: Iraida Henley Verified Date/Time: 12/23/2019 02:01:11 BLOOD GAS, [id number] 01:19:00 Test Item Value Reference Range Comments PH ARTERIAL (BEAKER) (test code = 383) 7.63 7.35-7.45 PCO2 ARTERIAL (BEAKER) (test code = 384) 25 mmHg 35-45 PO2 ARTERIAL (BEAKER) (test code = 385) 84 mmHg 80-90 O2 SATURATION ARTERIAL (BEAKER) (test code = 386) 97.8 % 96.0-97.0 HCO3 ARTERIAL (BEAKER) (test code = 388) 25 mmol/L 21-29 BASE EXCESS ARTERIAL (BEAKER) (test code = 387) 4.0 mmol/L -2.0-3.0 PATIENT TEMPERATURE (BEAKER) (test code = 1818) 37.5 C FIO2 (BEAKER) (test code = 1819) 21.0 % POCT-GLUCOSE [id number] 23:42:00 Test Item Value Reference Range Comments POC-GLUCOSE METER (BEAKER) 135 mg/dL 70-110 : JIMI ALEX AT [facility] [address] [facility] (test code = 1538) [place], [address]: 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 leatha ID = [id number] for Lutz, Mirand a [id number] 18:51:00 Test Item Value Reference Range Comments POTASSIUM (BEAKER) (test code = 4.1 meq/L 3.5-5.1 Specimen slightly hemolyzed 379) 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 Mechanic ID - [id number] 18:44:00 Test Item Value Reference Range Comments PARTIAL THROMBOPLASTIN TIME (BEAKER) (test code 50.0 seconds 22.5-36.0 = 760) POCT-GLUCOSE [id number] 18:32:00 Test Item Value Reference Range Comments POC-GLUCOSE METER (BEAKER) 147 mg/dL 70-110 : JIMI ALEX AT [address] (test code = 1538) [facility], [address]: 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 leatha ID = [id number] for EMILIANA SCHMIDT LUCITA RAD, ABDOMEN/KUB, 1 VIEW [id number] 16:39:00Reason for exam:->tube placementShould this be performed at the bedside?->YesFINAL REPORT Abdomen date 12/22/2019 Comment: Frontal view of the abdomen demo nstrates a nasogastric tube present with tip noted in the body of the stomach. Signed: Edilberto Gregoryort Verified Date/Time: 12/22/2019 16:39:35 Reading Location: [address] Consult Reading Room POCT-GLUCOSE [id number] 12:48:00 Test Item Value Reference Range Comments POC-GLUCOSE METER (BEAKER) 141 mg/dL 70-110 : JIMI ALEX AT [address] (test code = 1538) [facility], [address]: 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 leatha ID = [id number] for ROSALIND VAN ESSA [id number] 12:34:00 Test Item Value Reference Range Comments MAGNESIUM (BEAKER) (test code = 2.3 mg/dL 1.6-2.6 Specimen slightly hemolyzed 627) 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 Mechanic ID - [id number] 12:34:00 Test Item Value Reference Range Comments POTASSIUM (BEAKER) (test code = 3.6 meq/L 3.5-5.1 Specimen slightly hemolyzed 379) 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 Mechanic ID - [id number] 12:24:00 Test Item Value Reference Range Comments PARTIAL THROMBOPLASTIN TIME (BEAKER) (test code 45.8 seconds 22.5-36.0 = 760) B-TYPE NATRIURETIC FACTOR (BNP)2019-12-22 10:25:00 Test Item Value Reference Range Comments B-TYPE NATRIURETIC PEPTIDE (BEAKER) (test code = 632 pg/mL 0-100 700) 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 Mechanic ID - DBBLOOD GAS, [id number] 10:04:00 Test Item Value Reference Range Comments PH ARTERIAL (BEAKER) (test code = 383) 7.51 7.35-7.45 PCO2 ARTERIAL (BEAKER) (test code = 384) 37 mmHg 35-45 PO2 ARTERIAL (BEAKER) (test code = 385) 152 mmHg 80-90 O2 SATURATION ARTERIAL (BEAKER) (test code = 386) 99.1 % 96.0-97.0 HCO3 ARTERIAL (BEAKER) (test code = 388) 29 mmol/L 21-29 BASE EXCESS ARTERIAL (BEAKER) (test code = 387) 5.2 mmol/L -2.0-3.0 PATIENT TEMPERATURE (BEAKER) (test code = 1818) 37.0 C FIO2 (BEAKER) (test code = 1819) 30.0 % BLOOD [id number] 10:03:00 Test Item Value Reference Range Comments CULTURE (BEAKER) (test Positive; see code = 1095) gram stain results. Clindamycin (test code = 10) Erythromycin (test code = 4) Levofloxacin (test code = 22) Linezolid (test code = 40) Nitrofurantoin (test code = 23) Oxacillin (test code = 14) Rifampin (test code = 43) Tetracycline (test code = 2) Trimethoprim + Sulfamethoxazole (test code = 47) Vancomycin (test code = 13) Ceftaroline (test code = 236) Daptomycin (test code = Susceptible 0-1 , No 59) Interpretations Established <0 or >1 CULTURE (BEAKER) (test From Aero bic And code = 1095) Anaerobic Bottle s Staphylococcus lugdunensis GRAM STAIN RESULT From aerobic and (BEAKER) (test code = anaerobic 1123) bottles: gram positive cocci in clusters BLOOD CULTURE IDENTIFICATION [id number] 10:00:00 Test Item Value Reference Range Comments LISTERIA MONOCYTOGENES (test Not detected Not detected code = 20160729) STAPHYLOCOCCUS (test code = Detected Not detected Coag ulase negative Staph 20161001) species (CoNS)- methicillin susceptibleFirst -line therapy: Cefazol in or Oxacillin (Oxaci llin preferred if SPECIAL PROJECTS MANAGER involvement) Mec A NOT DETECTEDPossible contamination. T he likelihood of pa thogenicity is increased if the organism is obse rved in multiple blood c ultures obtained from se parate venipunctures.Re ference Range: Not Detec alex STAPHYLOCOCCUS AUREUS (test Not detected Not detected code = 20161002) STREPTOCOCCUS (test code = Not detected Not detected 8298637) STREPTOCOCCUS AGALACTIAE Not detected Not detected (GROUP B) (test code = 1376025) STREPTOCOCCUS PNEUMONIAE Not detected Not detected (test code = 7624021) STREPTOCOCCUS PYOGENES (GROUP Not detected Not detected A) (test code = 0234611) ACINETOBACTER BAUMANNII (test Not detected Not detected code = 0769498) HAEMOPHILUS INFLUENZAE (test Not detected Not detected code = 7680596) NEISSERIA MENINGITIDIS (test Not detected Not detected code = 3809019) ENTEROBACTERIACEAE (test code = 0429927) ENTEROBACTER CLOACOE COMPLEX Not detected Not detected (test code = 6283171) KLEBSIELLA OXYTOCA (test code Not detected Not detected = 6105346) KLEBSIELLA PNEUMONIAE (test Not detected Not detected code = 1650) PROTEUS (test code = 3826746) SERRATIA MARCESCENS (test Not detected Not detected code = 5873787) JAMAL ALBICANS (test code = Not detected Not detected 4155901) JAMAL GLABRATA (test code = Not detected Not detected 6457109) JAMAL KRUSEI (test code = Not detected Not detected 8470317) JAMAL PARAPSILOSIS (test Not detected Not detected code = 3610817) JAMAL TROPICALIS (test code Not detected Not detected = 4468954) ESCHERICHIA COLI (test code = Not detected Not detected 5210833) METHICILLIN-RESISTANCE GENE Not detected Not detected (test code = 0423986) VANCOMYCIN-RESISTANCE GENE (test code = 9180677) CARBAPENEM-RESISTANCE GENE (test code = 8827327) ENTEROCOCCUS-BEAKER (test Not detected Not detected code = 5247584) PSEUDOMONAS AERUGINOSA-BEAKER Not detected Not detected (test code = 3719648) Other bacteria and resistance markers not targeted by this PCR panel cannot be excluded; therefore clinical correlation and follow up of serology, culture results, and other molecular studies is required. The results are not intended to be used as the sole means for clinical diagnosis or patient management decisions. This sample was tested at the [facility] Molecular Diagnostics Laboratory using the [employer] Blood Culture ID Panel. It is FDA cleared and has been verified and approved by the [facility] Molecular Diagnostics Laboratory for clinical use. This laboratory is CLIA-certified and College ofAmerican Pathologists (CAP)-accredited to perform high complexity testing.BLOOD CULTURE 2019-12-22 09:58:00 Test Item Value Reference Range Comments CULTURE (BEAKER) From Aerobic An d Anaerobic (test code = 1095) Bottles Same organism has been isolated fr om cultures(s) of t he same body site and co llection date. Repeat donta ntification and susceptibili ty testing performed only a fter consultation wit h the [facility] laboratory.Refer to previous culture of* - Staphylococcus l ugdunensis GRAM STAIN RESULT From aerobic and (BEAKER) (test code anaerobic bottles: = 1123) gram positive cocci in clusters RAD, CHEST, 1 VIEW, NON [id number] 08:26:00Reason for exam:->sobShould this be performed at the bedside?->YesFINAL REPORT RAD, CHEST, 1 VIEW, NON DEPT INDICATION: sob COMPARISON: Prior day's exam FINDINGS: Portable frontal view of the chest. IMPRESSION: Support Lines: Stable. Lungs and pleura: Unchanged airspace opacities. No pneumothorax.Heart and mediastinum: Stable contours. Stable pacer apparatus.Additional findings: None. Signed: JR Leblanc Robert MDReport Verified Date/Time: 12/22/2019 08:26:26 Reading Location: [facility] Radiology Reading Room APTT 2019-12-22 08:18:00 Test Item Value Reference Range Comments PARTIAL THROMBOPLASTIN TIME (BEAKER) (test 102.7 seconds 22.5- 36.0 code = 760) HEMOGLOBIN AND [id number] 08:01:00 Test Item Value Reference Range Comments HEMOGLOBIN (BEAKER) (test code = 410) 7.8 GM/DL 13.7-17.5 HEMATOCRIT (BEAKER) (test code = 411) 24.5 % 40.1-51.0 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 Mechanic ID - [id number] 06:31:00 Test Item Value Reference Range Comments PARTIAL THROMBOPLASTIN TIME (BEAKER) (test code 95.3 seconds 22.5-36.0 = 760) POCT-GLUCOSE [id number] 06:22:00 Test Item Value Reference Range Comments POC-GLUCOSE METER (BEAKER) 144 mg/dL 70-110 : JIMI ALEX AT [facility] [address] (test code = 1538) [place], [address]: 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 leatha ID = [id number] for LutzAda a [id number] 06:06:00 Test Item Value Reference Range Comments MAGNESIUM (BEAKER) (test code = 2.2 mg/dL 1.6-2.6 Specimen slightly hemolyzed 627) 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 Mechanic ID - ADAMARIS MBASIC METABOLIC [id number] 06:06:00 Test Item Value Reference Range Comments SODIUM (BEAKER) (test 146 meq/L 136-145 code = 381) POTASSIUM (BEAKER) (test 3.6 meq/L 3.5-5.1 Specime n slightly code = 379) hemolyzed CHLORIDE (BEAKER) (test 113 meq/L 98-107 code = 382) CO2 (BEAKER) (test code = 24 meq/L 22-29 355) BLOOD UREA NITROGEN 43 mg/dL 7-21 (BEAKER) (test code = 354) CREATININE (BEAKER) (test 1.23 mg/dL 0.57-1.25 Specim en slightly code = 358) hemolyzed GLUCOSE RANDOM (BEAKER) 150 mg/dL 70-105 (test code = 652) CALCIUM (BEAKER) (test 9.3 mg/dL 8.4-10.2 code = 697) EGFR (BEAKER) (test code 57 mL/min/1.73 sq m EST IMATED GFR IS NOT = 1092) ACCURATE CREA TININE CLEARANCE IN PRE DICTING GLOMERULAR FILTR ATION RATE. ESTIMATED GFR IS NOT APPLICABLE F OR DIALYSIS PATIENT S. 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 ID - ADAMARIS [facility] W/PLT COUNT & AUTO [id number] 04:09:00 Test Item Value Reference Range Comments WHITE BLOOD CELL COUNT (BEAKER) (test code = 13.4 K/ L 3.5 -10.5 775) RED BLOOD CELL COUNT (BEAKER) (test code = 761) 2.46 M/ L 4.63-6.08 HEMOGLOBIN (BEAKER) (test code = 410) 7.1 GM/DL 13.7-17.5 HEMATOCRIT (BEAKER) (test code = 411) 22.9 % 40.1-51.0 MEAN CORPUSCULAR VOLUME (BEAKER) (test code = 93.1 fL 79 .0-92.2 753) MEAN CORPUSCULAR HEMOGLOBIN (BEAKER) (test code 28.9 pg 25.7-32.2 = 751) MEAN CORPUSCULAR HEMOGLOBIN CONC (BEAKER) (test 31.0 GM/DL 32.3-36.5 code = 752) RED CELL DISTRIBUTION WIDTH (BEAKER) (test code 17.0 % 11.6-14.4 = 412) PLATELET COUNT (BEAKER) (test code = 756) 375 K/CU MM 150-45 0 MEAN PLATELET VOLUME (BEAKER) (test code = 754) 11.4 fL 9.4-12.4 NUCLEATED RED BLOOD CELLS (BEAKER) (test code = 0 /100 WBC 0-0 413) NEUTROPHILS RELATIVE PERCENT (BEAKER) (test code 80 % = 429) LYMPHOCYTES RELATIVE PERCENT (BEAKER) (test code 15 % = 430) MONOCYTES RELATIVE PERCENT (BEAKER) (test code = 4 % 431) EOSINOPHILS RELATIVE PERCENT (BEAKER) (test code 0 % = 432) BASOPHILS RELATIVE PERCENT (BEAKER) (test code = 0 % 437) NEUTROPHILS ABSOLUTE COUNT (BEAKER) (test code = 10.64 K/ L 1.78-5.38 670) LYMPHOCYTES ABSOLUTE COUNT (BEAKER) (test code = 1.94 K/ L 1.32-3.57 414) MONOCYTES ABSOLUTE COUNT (BEAKER) (test code = 0.55 K/ L 0 .30-0.82 415) EOSINOPHILS ABSOLUTE COUNT (BEAKER) (test code = 0.02 K/ L 0.04-0.54 416) BASOPHILS ABSOLUTE COUNT (BEAKER) (test code = 0.02 K/ L 0 .01-0.08 417) IMMATURE GRANULOCYTES-RELATIVE PERCENT (BEAKER) 2 % 0-1 (test code = 2801) POCT-GLUCOSE [id number] 00:13:00 Test Item Value Reference Range Comments POC-GLUCOSE METER (BEAKER) 122 mg/dL 70-110 : JIMI ALEX AT [facility] [address] (test code = 1538) [facility], [address]: 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 leatha ID = [id number] for Ada Lutz [id number] 23:33:00 Test Item Value Reference Range Comments PARTIAL THROMBOPLASTIN TIME (BEAKER) (test code 68.4 seconds 22.5-36.0 = 760) U/S, [id number] 19:46:00Laterality?->LeftReason for exam:- >Diagnostic samplingLabs to be Ordered:->Body Fluid Culture (w/Gram Stain, C\T\S)Body fluid cell countLabs to be Ordered:->Glucose+LDH+ProteinLabs to be Ordered:->Other (please add comment)Labs to be Ordered:->Fungal Culture FINAL REPORT Exam: Ultrasound guided thoracentesis Clinical History: Left-sided Pleural Effusion Treating And Pumping Supervisor: Cassidy Parra PA-C Supervising Physician: Luis Miguel Glover MD Consent: Benefits and risks were explained to the patient who gave consent to the procedure. Compli cation: None Immediate Procedure: The patient was placed in right lateral decubitus position. The left posterior chest was prepped and draped in usual sterile fashion. 2% lidocaine was used as local anesthetic. Under ultrasound guidance, a thoracentesis catheter was inserted into the pleural cavity. Approximately 10 cc of serosanguineous pleural fluid was aspirated. The catheter was removed. The specimen was sent to the laboratory for further analysis. The patient tolerated the procedure well without any adverse reaction. A STAT chest x-ray was ordered. The patient left the department in stable condition. Impression: Ultrasound guided left-sided thoracentesis. Signed: Luis Miguel Glover MDReport Verified Date/Time: 12/21/2019 19:46:02 Reading Location: [address] Ultrasound Reading Room BODY FLUID CELL COUNT WITH [id number] 19:01:00 Test Item Value Reference Range Comments APPEARANCE FLUID (BEAKER) (test code = 510) Bloody Yolande r COLOR FLUID (BEAKER) (test code = 511) Red Colorless , Straw RBC FLUID (BEAKER) (test code = 513) 047305 /cu mm <=1 ADJUSTED WBC FLUID (BEAKER) (test code = 799 /cu mm <=5 1691) LINING CELLS (BEAKER) (test code = 1590) 16 /cu mm <=1 NEUTROPHILS FLUID (BEAKER) (test code = 1656) 34 % LYMPHS FLUID (BEAKER) (test code = 488) 50 % MONO/MACROPHAGE FLUID (BEAKER) (test code = 16 % 489) EOSINOPHILS FLUID (BEAKER) (test code = 491) 0 % BASO FLUID (BEAKER) (test code = 492) 0 % CONTAINER BODY FLUID (BEAKER) (test code = EDTA Tube 2873) [id number] 17:13:00 Test Item Value Reference Range Comments PROTIME (BEAKER) (test code = 759) 16.5 seconds 11.9-14.2 INR (BEAKER) (test code = 370) 1.4 <=5.9 PARTIAL THROMBOPLASTIN TIME (BEAKER) (test code 30.3 seconds 22.5-36.0 = 760) Effective 03/24/2019: PT Reference Range ChangeNew: 11.9-14.2 Previous: 11.7- 14.7RECOMMENDED COUMADIN/WARFARIN INR THERAPY RANGESSTANDARD DOSE: 2.0-3.0 Includes: PROPHYLAXIS for venous thrombosis, systemic embolization; TREATMENT for venous thrombosis and/or pulmonary embolus.HIGH RISK: Target INR is2.5-3.5 for patients wiht mechanical heart valves.RAD, CHEST, 1 VIEW, NON [id number] 16:16:00Reason for exam:->post left sided thoracentesisShould this be performed at the bedside?->YesFINAL REPORT History: Status post left-sided thoracentesis Comparison: 12/19/2019 Findings: Status post thoracentesis. No pneumothorax is identified. There is mild pulmonary edema. Left lung base airspace consolidation persists. The left pleural effusion has decreased in size. The heart shadow remains enlarged. Right subclavian transvenous cardiac pacing hardware remains in place, with the lead in the region of the right ventricle. Signed: Radha Marieort Verified Date/Time: 12/21/2019 16:16:44 Reading Location: [facility] Radiology Reading Room ANAEROBIC [id number] 16:14:00 Test Item Value Reference Range Comments CULTURE (BEAKER) (test code = 1095) No anaerobes isolated PROTHROMBIN [id number] 12:46:00 Test Item Value Reference Range Comments PROTIME (BEAKER) (test code = 759) 16.3 seconds 11.9-14.2 INR (BEAKER) (test code = 370) 1.3 <=5.9 Effective 03/24/2019: PT Reference Range ChangeNew: 11.9-14.2 Previous: 11.7- 14.7RECOMMENDED COUMADIN/WARFARIN INR THERAPY RANGESSTANDARD DOSE: 2.0-3.0 Includes: PROPHYLAXIS for venous thrombosis, systemic embolization; TREATMENT for venous thrombosis and/or pulmonary embolus.HIGH RISK: Target INR is2.5-3.5 for patients wiht mechanical heart valves.POCT-GLUCOSE [id number] 12:38:00 Test Item Value Reference Range Comments POC-GLUCOSE METER (BEAKER) 138 mg/dL 70-110 : JIMI ALEX AT [facility] [address] [facility] (test code = 1538) [place], [address]: 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 leatha ID = [id number] for LAWRECNE BOYER [id number] 11:10:00 Test Item Value Reference Range Comments PROTIME (BEAKER) (test code = 759) 16.2 seconds 11.9-14.2 INR (BEAKER) (test code = 370) 1.3 <=5.9 PARTIAL THROMBOPLASTIN TIME (BEAKER) (test code 69.0 seconds 22.5-36.0 = 760) Effective 03/24/2019: PT Reference Range ChangeNew: 11.9-14.2 Previous: 11.7- 14.7RECOMMENDED COUMADIN/WARFARIN INR THERAPY RANGESSTANDARD DOSE: 2.0-3.0 Includes: PROPHYLAXIS for venous thrombosis, systemic embolization; TREATMENT for venous thrombosis and/or pulmonary embolus.HIGH RISK: Target INR is2.5-3.5 for patients wiht mechanical heart valves.SURGICALLY OBTAINED CULTURE + GRAM [id number] 08:57:00 Test Item Value Reference Range Comments CULTURE (BEAKER) (test STAPHYLOCOCCUS 1+ Staphy lococcus code = 1095) LUGDUNENSIS lugdunensis Clindamycin (test code = 10) Erythromycin (test code = 4) Levofloxacin (test code = 22) Linezolid (test code = 40) Nitrofurantoin (test code = 23) Oxacillin (test code = 14) Rifampin (test code = 43) Tetracycline (test code = 2) Trimethoprim + Sulfamethoxazole (test code = 47) Vancomycin (test code = 13) GRAM STAIN RESULT <1+ WBCs (BEAKER) (test code = 1123) GRAM STAIN RESULT <1+ gram positive (BEAKER) (test code = cocci in pairs and 165492) clusters CREATINE KINASE (CK)[id number] 05:56:00 Test Item Value Reference Range Comments CREATINE KINASE TOTAL (BEAKER) (test code = 380) 18 U/L 29-200 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 Mechanic ID - ADAMARIS [id number] 05:43:00 Test Item Value Reference Range Comments MAGNESIUM (BEAKER) (test code = 2.3 mg/dL 1.6-2.6 Specimen slightly hemolyzed 627) 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 Mechanic ID - ADAMARIS MBASIC METABOLIC [id number] 05:43:00 Test Item Value Reference Range Comments SODIUM (BEAKER) (test 146 meq/L 136-145 code = 381) POTASSIUM (BEAKER) (test 3.8 meq/L 3.5-5.1 Specime n slightly code = 379) hemolyzed CHLORIDE (BEAKER) (test 113 meq/L 98-107 code = 382) CO2 (BEAKER) (test code = 26 meq/L 22-29 355) BLOOD UREA NITROGEN 42 mg/dL 7-21 (BEAKER) (test code = 354) CREATININE (BEAKER) (test 1.15 mg/dL 0.57-1.25 Specim en slightly code = 358) hemolyzed GLUCOSE RANDOM (BEAKER) 142 mg/dL 70-105 (test code = 652) CALCIUM (BEAKER) (test 9.2 mg/dL 8.4-10.2 code = 697) EGFR (BEAKER) (test code 62 mL/min/1.73 sq m EST IMATED GFR IS NOT = 1092) ACCURATE CREA TININE CLEARANCE IN PRE DICTING GLOMERULAR FILTR ATION RATE. ESTIMATED GFR IS NOT APPLICABLE F OR DIALYSIS PATIENT S. 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 Mechanic ID - ADAMARIS MCBC W/PLT COUNT & AUTO [id number] 05:17:00 Test Item Value Reference Range Comments WHITE BLOOD CELL COUNT (BEAKER) (test code = 15.4 K/ L 3.5 -10.5 775) RED BLOOD CELL COUNT (BEAKER) (test code = 761) 2.78 M/ L 4.63-6.08 HEMOGLOBIN (BEAKER) (test code = 410) 8.1 GM/DL 13.7-17.5 HEMATOCRIT (BEAKER) (test code = 411) 26.0 % 40.1-51.0 MEAN CORPUSCULAR VOLUME (BEAKER) (test code = 93.5 fL 79 .0-92.2 753) MEAN CORPUSCULAR HEMOGLOBIN (BEAKER) (test code 29.1 pg 25.7-32.2 = 751) MEAN CORPUSCULAR HEMOGLOBIN CONC (BEAKER) (test 31.2 GM/DL 32.3-36.5 code = 752) RED CELL DISTRIBUTION WIDTH (BEAKER) (test code 16.3 % 11.6-14.4 = 412) PLATELET COUNT (BEAKER) (test code = 756) 372 K/CU MM 150-45 0 MEAN PLATELET VOLUME (BEAKER) (test code = 754) 10.7 fL 9.4-12.4 NUCLEATED RED BLOOD CELLS (BEAKER) (test code = 0 /100 WBC 0-0 413) NEUTROPHILS RELATIVE PERCENT (BEAKER) (test code 80 % = 429) LYMPHOCYTES RELATIVE PERCENT (BEAKER) (test code 13 % = 430) MONOCYTES RELATIVE PERCENT (BEAKER) (test code = 4 % 431) EOSINOPHILS RELATIVE PERCENT (BEAKER) (test code 1 % = 432) BASOPHILS RELATIVE PERCENT (BEAKER) (test code = 0 % 437) NEUTROPHILS ABSOLUTE COUNT (BEAKER) (test code = 12.33 K/ L 1.78-5.38 670) LYMPHOCYTES ABSOLUTE COUNT (BEAKER) (test code = 1.94 K/ L 1.32-3.57 414) MONOCYTES ABSOLUTE COUNT (BEAKER) (test code = 0.67 K/ L 0 .30-0.82 415) EOSINOPHILS ABSOLUTE COUNT (BEAKER) (test code = 0.08 K/ L 0.04-0.54 416) BASOPHILS ABSOLUTE COUNT (BEAKER) (test code = 0.02 K/ L 0 .01-0.08 417) IMMATURE GRANULOCYTES-RELATIVE PERCENT (BEAKER) 2 % 0-1 (test code = 2801) [id number] 05:16:00 Test Item Value Reference Range Comments PARTIAL THROMBOPLASTIN TIME (BEAKER) (test code 63.0 seconds 22.5-36.0 = 760) POCT-GLUCOSE [id number] 23:39:00 Test Item Value Reference Range Comments POC-GLUCOSE METER (BEAKER) 162 mg/dL 70-110 : JIMI ALEX AT [address] (test code = 1538) [facility], [address]: 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 leatha ID = [id number] for MICHELLE DIAS BLOOD GAS, [id number] 21:17:00 Test Item Value Reference Range Comments PH ARTERIAL (BEAKER) (test code = 383) 7.58 7.35-7.45 PCO2 ARTERIAL (BEAKER) (test code = 384) 29 mmHg 35-45 PO2 ARTERIAL (BEAKER) (test code = 385) 94 mmHg 80-90 O2 SATURATION ARTERIAL (BEAKER) (test code = 386) 98.2 % 96.0-97.0 HCO3 ARTERIAL (BEAKER) (test code = 388) 27 mmol/L 21-29 BASE EXCESS ARTERIAL (BEAKER) (test code = 387) 5.0 mmol/L -2.0-3.0 PATIENT TEMPERATURE (BEAKER) (test code = 1818) 36.7 C FIO2 (BEAKER) (test code = 1819) 21.0 % POCT-GLUCOSE [id number] 18:36:00 Test Item Value Reference Range Comments POC-GLUCOSE METER (BEAKER) 149 mg/dL 70-110 : JIMI ALEX AT [place] [id number] [facility] (test code = 1538) [facility], [address]: 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 leatha ID = [id number] for LAWRENCE BOYER [id number] 17:13:00 Test Item Value Reference Range Comments PARTIAL THROMBOPLASTIN TIME (BEAKER) (test code 72.8 seconds 22.5-36.0 = 760) POCT-GLUCOSE [id number] 12:29:00 Test Item Value Reference Range Comments POC-GLUCOSE METER (BEAKER) 179 mg/dL 70-110 : JIMI ALEX AT [facility] [address] (test code = 1538) [place], [address]: 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 leatha ID = [id number] for LAWRENCE BOYER [id number] 11:15:00 Test Item Value Reference Range Comments PARTIAL THROMBOPLASTIN TIME (BEAKER) (test code 76.4 seconds 22.5-36.0 = 760) BLOOD GAS, [id number] 10:14:00 Test Item Value Reference Range Comments PH ARTERIAL (BEAKER) (test code = 383) 7.59 7.35-7.45 PCO2 ARTERIAL (BEAKER) (test code = 384) 27 mmHg 35-45 PO2 ARTERIAL (BEAKER) (test code = 385) 67 mmHg 80-90 O2 SATURATION ARTERIAL (BEAKER) (test code = 386) 95.9 % 96.0-97.0 HCO3 ARTERIAL (BEAKER) (test code = 388) 25 mmol/L 21-29 BASE EXCESS ARTERIAL (BEAKER) (test code = 387) 3.3 mmol/L -2.0-3.0 PATIENT TEMPERATURE (BEAKER) (test code = 1818) 37.0 C FIO2 (BEAKER) (test code = 1819) 21.0 % BLOOD [id number] 09:49:00 Test Item Value Reference Range Comments CULTURE (BEAKER) From Aerobic An d Anaerobic (test code = 1095) Bottles Same organism has been isolated fr om cultures(s) of t he same body site within 3 days. Repeat identific ation and susceptibility t esting performed only a fter consultation wit the [facility] laboratory.Refer to previous culture of* - Staphlococcus shon gdunensis GRAM STAIN RESULT From aerobic and (BEAKER) (test code anaerobic bottles: = 1123) gram positive cocci in clusters BLOOD [id number] 09:49:00 Test Item Value Reference Range Comments CULTURE (BEAKER) From Aerobic An d Anaerobic (test code = 1095) Bottles Same organism has been isolated fr om cultures(s) of t he same body site within 3 days. Repeat identific ation and susceptibility t esting performed only a fter consultation wit h the [facility] laboratory.Refer to previous culture of* - Staphlococcus shon gdunensis GRAM STAIN RESULT From aerobic and (BEAKER) (test code anaerobic bottles: = 1123) gram positive cocci in clusters POCT-GLUCOSE [id number] 06:19:00 Test Item Value Reference Range Comments POC-GLUCOSE METER (BEAKER) 202 mg/dL 70-110 : JIMI ALEX AT [facility] [address] [facility] (test code = 1538) [place], [address]: 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 leatha ID = [id number] for JOSEPHINE MEYERS [id number] 04:33:00 Test Item Value Reference Range Comments PARTIAL THROMBOPLASTIN TIME (BEAKER) (test code 53.7 seconds 22.5-36.0 = 760) [id number] 04:27:00 Test Item Value Reference Range Comments MAGNESIUM (BEAKER) (test code = 627) 2.2 mg/dL 1.6-2.6 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 Mechanic ID - TRAN WBASIC METABOLIC [id number] 04:27:00 Test Item Value Reference Range Comments SODIUM (BEAKER) (test 146 meq/L 136-145 code = 381) POTASSIUM (BEAKER) (test 3.4 meq/L 3.5-5.1 code = 379) CHLORIDE (BEAKER) (test 112 meq/L 98-107 code = 382) CO2 (BEAKER) (test code = 26 meq/L 22-29 355) BLOOD UREA NITROGEN 36 mg/dL 7-21 (BEAKER) (test code = 354) CREATININE (BEAKER) (test 1.14 mg/dL 0.57-1.25 code = 358) GLUCOSE RANDOM (BEAKER) 183 mg/dL 70-105 (test code = 652) CALCIUM (BEAKER) (test 8.9 mg/dL 8.4-10.2 code = 697) EGFR (BEAKER) (test code 62 mL/min/1.73 sq m EST IMATED GFR IS NOT = 1092) ACCURATE CREA TININE CLEARANCE IN PRE DICTING GLOMERULAR FILTR ATION RATE. ESTIMATED GFR IS NOT APPLICABLE F OR DIALYSIS PATIENT S. 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 Mechanic ID - TRAN WCBC W/PLT COUNT & AUTO [id number] 04:18:00 Test Item Value Reference Range Comments WHITE BLOOD CELL COUNT (BEAKER) (test code = 14.7 K/ L 3.5 -10.5 775) RED BLOOD CELL COUNT (BEAKER) (test code = 761) 2.82 M/ L 4.63-6.08 HEMOGLOBIN (BEAKER) (test code = 410) 8.4 GM/DL 13.7-17.5 HEMATOCRIT (BEAKER) (test code = 411) 25.8 % 40.1-51.0 MEAN CORPUSCULAR VOLUME (BEAKER) (test code = 91.5 fL 79 .0-92.2 753) MEAN CORPUSCULAR HEMOGLOBIN (BEAKER) (test code 29.8 pg 25.7-32.2 = 751) MEAN CORPUSCULAR HEMOGLOBIN CONC (BEAKER) (test 32.6 GM/DL 32.3-36.5 code = 752) RED CELL DISTRIBUTION WIDTH (BEAKER) (test code 15.9 % 11.6-14.4 = 412) PLATELET COUNT (BEAKER) (test code = 756) 313 K/CU MM 150-45 0 MEAN PLATELET VOLUME (BEAKER) (test code = 754) 11.1 fL 9.4-12.4 NUCLEATED RED BLOOD CELLS (BEAKER) (test code = 0 /100 WBC 0-0 413) NEUTROPHILS RELATIVE PERCENT (BEAKER) (test code 82 % = 429) LYMPHOCYTES RELATIVE PERCENT (BEAKER) (test code 11 % = 430) MONOCYTES RELATIVE PERCENT (BEAKER) (test code = 5 % 431) EOSINOPHILS RELATIVE PERCENT (BEAKER) (test code 0 % = 432) BASOPHILS RELATIVE PERCENT (BEAKER) (test code = 0 % 437) NEUTROPHILS ABSOLUTE COUNT (BEAKER) (test code = 12.07 K/ L 1.78-5.38 670) LYMPHOCYTES ABSOLUTE COUNT (BEAKER) (test code = 1.60 K/ L 1.32-3.57 414) MONOCYTES ABSOLUTE COUNT (BEAKER) (test code = 0.67 K/ L 0 .30-0.82 415) EOSINOPHILS ABSOLUTE COUNT (BEAKER) (test code = 0.05 K/ L 0.04-0.54 416) BASOPHILS ABSOLUTE COUNT (BEAKER) (test code = 0.01 K/ L 0 .01-0.08 417) IMMATURE GRANULOCYTES-RELATIVE PERCENT (BEAKER) 2 % 0-1 (test code = 2801) POCT-GLUCOSE [id number] 23:24:00 Test Item Value Reference Range Comments POC-GLUCOSE METER (BEAKER) 160 mg/dL 70-110 : JIMI ALEX AT [facility] [address] [facility] (test code = 1538) [facility], [address]: 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 leatha ID = [id number] for JOSEPHINE MEYERS [id number] 21:10:00 Test Item Value Reference Range Comments PARTIAL THROMBOPLASTIN TIME (BEAKER) (test code 70.0 seconds 22.5-36.0 = 760) [id number] 13:55:00 Test Item Value Reference Range Comments PARTIAL THROMBOPLASTIN TIME (BEAKER) (test code 70.0 seconds 22.5-36.0 = 760) POCT-GLUCOSE [id number] 12:13:00 Test Item Value Reference Range Comments POC-GLUCOSE METER (BEAKER) 165 mg/dL 70-110 : JIMI ALEX AT [address] (test code = 1538) [facility], [address]: 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 leatha ID = [id number] for JASON URBINA RAD, CHEST, 1 VIEW, NON [id number] 11:54:00Reason for exam:- >tachypneaShould this be performed at the bedside?->YesFINAL REPORT RAD, CHEST, 1 VIEW, NON DEPT INDICATION: tachypnea COMPARISON: December 17, 2019 FINDINGS: Portable frontal view of the chest. IMPRESSION: Support Lines: Pacer device. Lungs and pleura: Left basilar atelectasis and retrocardiac airspace disease No pneumothorax.Heart and mediastinum: Stable contours. Additional findings: None. Signed: Madeline Casas MDReport Verified Date/Time: 12/19/2019 11:54:30 Reading Location: [facility] C013V Neuro Reading Room BLOOD [id number] 11:04:00 Test Item Value Reference Range Comments CULTURE (BEAKER) From Aerobic An d Anaerobic (test code = 1095) Bottles Same organism has been isolated fr om cultures(s) of t he same body site within 3 days. Repeat identific ation and susceptibility t esting performed only a fter consultation wit h the clinical [facility] laboratory.Refer to previous culture of* - Staphylococcus l ugdunensis GRAM STAIN RESULT From aerobic and (BEAKER) (test code anaerobic bottles: = 1123) gram positive cocci in clusters BLOOD [id number] 11:02:00 Test Item Value Reference Range Comments CULTURE (BEAKER) From Aerobic An d Anaerobic (test code = 1095) Bottles Same organism has been isolated fr om cultures(s) of t he same body site within 3 days. Repeat identific ation and susceptibility t esting performed only a fter consultation wit h the clinical [facility] laboratory.Refer to previous culture of* - Staphylococcus l ugdunensis GRAM STAIN RESULT From aerobic and (BEAKER) (test code anaerobic bottles: = 1123) gram positive cocci in clusters [id number] 07:08:00 Test Item Value Reference Range Comments MAGNESIUM (BEAKER) (test code = 2.2 mg/dL 1.6-2.6 Specimen slightly hemolyzed 627) 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 Mechanic ID - DBBASIC METABOLIC [id number] 07:08:00 Test Item Value Reference Range Comments SODIUM (BEAKER) (test 142 meq/L 136-145 code = 381) POTASSIUM (BEAKER) (test 3.8 meq/L 3.5-5.1 Specime n slightly code = 379) hemolyzed CHLORIDE (BEAKER) (test 112 meq/L 98-107 code = 382) CO2 (BEAKER) (test code = 22 meq/L 22-29 355) BLOOD UREA NITROGEN 36 mg/dL 7-21 (BEAKER) (test code = 354) CREATININE (BEAKER) (test 1.17 mg/dL 0.57-1.25 Specim en slightly code = 358) hemolyzed GLUCOSE RANDOM (BEAKER) 190 mg/dL 70-105 (test code = 652) CALCIUM (BEAKER) (test 8.7 mg/dL 8.4-10.2 code = 697) EGFR (BEAKER) (test code 61 mL/min/1.73 sq m EST IMATED GFR IS NOT = 1092) ACCURATE CREA TININE CLEARANCE IN PRE DICTING GLOMERULAR FILTR ATION RATE. ESTIMATED GFR IS NOT APPLICABLE F OR DIALYSIS PATIENT S. 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 Mechanic ID - [id number] 06:41:00 Test Item Value Reference Range Comments PARTIAL THROMBOPLASTIN TIME (BEAKER) (test code 63.5 seconds 22.5-36.0 = 760) CBC W/PLT COUNT & AUTO [id number] 05:29:00 Test Item Value Reference Range Comments WHITE BLOOD CELL COUNT (BEAKER) (test code = 16.7 K/ L 3.5 -10.5 775) RED BLOOD CELL COUNT (BEAKER) (test code = 761) 3.13 M/ L 4.63-6.08 HEMOGLOBIN (BEAKER) (test code = 410) 9.0 GM/DL 13.7-17.5 HEMATOCRIT (BEAKER) (test code = 411) 29.0 % 40.1-51.0 MEAN CORPUSCULAR VOLUME (BEAKER) (test code = 92.7 fL 79 .0-92.2 753) MEAN CORPUSCULAR HEMOGLOBIN (BEAKER) (test code 28.8 pg 25.7-32.2 = 751) MEAN CORPUSCULAR HEMOGLOBIN CONC (BEAKER) (test 31.0 GM/DL 32.3-36.5 code = 752) RED CELL DISTRIBUTION WIDTH (BEAKER) (test code 16.0 % 11.6-14.4 = 412) PLATELET COUNT (BEAKER) (test code = 756) 316 K/CU MM 150-45 0 MEAN PLATELET VOLUME (BEAKER) (test code = 754) 11.2 fL 9.4-12.4 NUCLEATED RED BLOOD CELLS (BEAKER) (test code = 0 /100 WBC 0-0 413) NEUTROPHILS RELATIVE PERCENT (BEAKER) (test code 82 % = 429) LYMPHOCYTES RELATIVE PERCENT (BEAKER) (test code 11 % = 430) MONOCYTES RELATIVE PERCENT (BEAKER) (test code = 5 % 431) EOSINOPHILS RELATIVE PERCENT (BEAKER) (test code 0 % = 432) BASOPHILS RELATIVE PERCENT (BEAKER) (test code = 0 % 437) NEUTROPHILS ABSOLUTE COUNT (BEAKER) (test code = 13.65 K/ L 1.78-5.38 670) LYMPHOCYTES ABSOLUTE COUNT (BEAKER) (test code = 1.80 K/ L 1.32-3.57 414) MONOCYTES ABSOLUTE COUNT (BEAKER) (test code = 0.80 K/ L 0 .30-0.82 415) EOSINOPHILS ABSOLUTE COUNT (BEAKER) (test code = 0.04 K/ L 0.04-0.54 416) BASOPHILS ABSOLUTE COUNT (BEAKER) (test code = 0.01 K/ L 0 .01-0.08 417) IMMATURE GRANULOCYTES-RELATIVE PERCENT (BEAKER) 2 % 0-1 (test code = 2801) [id number] 00:50:00 Test Item Value Reference Range Comments PARTIAL THROMBOPLASTIN TIME (BEAKER) (test code 57.8 seconds 22.5-36.0 = 760) [id number] 18:03:00 Test Item Value Reference Range Comments MAGNESIUM (BEAKER) (test code = 2.1 mg/dL 1.6-2.6 Specimen slightly hemolyzed 627) 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 Mechanic ID - [id number] 18:03:00 Test Item Value Reference Range Comments POTASSIUM (BEAKER) (test code = 3.9 meq/L 3.5-5.1 Specimen slightly hemolyzed 379) 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 Mechanic ID - [id number] 17:58:00 Test Item Value Reference Range Comments PARTIAL THROMBOPLASTIN TIME (BEAKER) (test code 50.8 seconds 22.5-36.0 = 760) HEMOGLOBIN [id number] 12:53:00 Test Item Value Reference Range Comments HEMOGLOBIN A1C (BEAKER) (test code = 368) 5.4 % 4.3-6. 1 [id number] 12:00:00 Test Item Value Reference Range Comments POTASSIUM (BEAKER) (test code = 379) 3.1 meq/L 3.5-5.1 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 Mechanic ID - IBAN [id number] 12:00:00 Test Item Value Reference Range Comments MAGNESIUM (BEAKER) (test code = 627) 2.3 mg/dL 1.6-2.6 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 ID - IBAN FBLOOD [id number] 11:19:00 Test Item Value Reference Range Comments CULTURE (BEAKER) From Aerobic An d Anaerobic (test code = 1095) Bottles Same organism has been isolated fr om cultures(s) of t he same body site and co llection date. Repeat donta ntification and susceptibili ty testing performed only a fter consultation wit h the [facility].Refer to previous culture of* - Staphylococcus l ugdunensis GRAM STAIN RESULT From aerobic and (BEAKER) (test code anaerobic bottles: = 1123) gram positive cocci in clusters BLOOD [id number] 11:17:00 Test Item Value Reference Range Comments CULTURE (BEAKER) (test STAPHYLOCOCCUS From Aero bic And code = 1095) LUGDUNENSIS Anaerobic Bottle s Staphylococcus lugdunensis Clindamycin (test code = 10) Erythromycin (test code = 4) Levofloxacin (test code = 22) Linezolid (test code = 40) Nitrofurantoin (test code = 23) Oxacillin (test code = 14) Rifampin (test code = 43) Tetracycline (test code = 2) Trimethoprim + Sulfamethoxazole (test code = 47) Vancomycin (test code = 13) GRAM STAIN RESULT From aerobic and (BEAKER) (test code = anaerobic bottles: 1123) gram positive cocci in clusters [id number] 10:51:00 Test Item Value Reference Range Comments PARTIAL THROMBOPLASTIN TIME (BEAKER) (test code 32.0 seconds 22.5-36.0 = 760) Prior to initiating heparinCBC W/PLT COUNT & AUTO [id number] 05:41:00 Test Item Value Reference Range Comments WHITE BLOOD CELL COUNT (BEAKER) (test code = 17.4 K/ L 3.5 -10.5 775) RED BLOOD CELL COUNT (BEAKER) (test code = 761) 3.36 M/ L 4.63-6.08 HEMOGLOBIN (BEAKER) (test code = 410) 9.6 GM/DL 13.7-17.5 HEMATOCRIT (BEAKER) (test code = 411) 30.8 % 40.1-51.0 MEAN CORPUSCULAR VOLUME (BEAKER) (test code = 91.7 fL 79 .0-92.2 753) MEAN CORPUSCULAR HEMOGLOBIN (BEAKER) (test code 28.6 pg 25.7-32.2 = 751) MEAN CORPUSCULAR HEMOGLOBIN CONC (BEAKER) (test 31.2 GM/DL 32.3-36.5 code = 752) RED CELL DISTRIBUTION WIDTH (BEAKER) (test code 15.6 % 11.6-14.4 = 412) PLATELET COUNT (BEAKER) (test code = 756) 249 K/CU MM 150-45 0 MEAN PLATELET VOLUME (BEAKER) (test code = 754) 11.5 fL 9.4-12.4 NUCLEATED RED BLOOD CELLS (BEAKER) (test code = 0 /100 WBC 0-0 413) NEUTROPHILS RELATIVE PERCENT (BEAKER) (test code 84 % = 429) LYMPHOCYTES RELATIVE PERCENT (BEAKER) (test code 8 % = 430) MONOCYTES RELATIVE PERCENT (BEAKER) (test code = 5 % 431) EOSINOPHILS RELATIVE PERCENT (BEAKER) (test code 0 % = 432) BASOPHILS RELATIVE PERCENT (BEAKER) (test code = 0 % 437) NEUTROPHILS ABSOLUTE COUNT (BEAKER) (test code = 14.69 K/ L 1.78-5.38 670) LYMPHOCYTES ABSOLUTE COUNT (BEAKER) (test code = 1.38 K/ L 1.32-3.57 414) MONOCYTES ABSOLUTE COUNT (BEAKER) (test code = 0.82 K/ L 0 .30-0.82 415) EOSINOPHILS ABSOLUTE COUNT (BEAKER) (test code = 0.02 K/ L 0.04-0.54 416) BASOPHILS ABSOLUTE COUNT (BEAKER) (test code = 0.02 K/ L 0 .01-0.08 417) IMMATURE GRANULOCYTES-RELATIVE PERCENT (BEAKER) 3 % 0-1 (test code = 2801) [id number] 05:03:00 Test Item Value Reference Range Comments MAGNESIUM (BEAKER) (test code = 2.1 mg/dL 1.6-2.6 Specimen slightly hemolyzed 627) 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 Mechanic ID - ADAMARIS MBASIC METABOLIC [id number] 05:03:00 Test Item Value Reference Range Comments SODIUM (BEAKER) (test 141 meq/L 136-145 code = 381) POTASSIUM (BEAKER) (test 3.5 meq/L 3.5-5.1 Specime n slightly code = 379) hemolyzed CHLORIDE (BEAKER) (test 108 meq/L 98-107 code = 382) CO2 (BEAKER) (test code = 25 meq/L 22-29 355) BLOOD UREA NITROGEN 35 mg/dL 7-21 (BEAKER) (test code = 354) CREATININE (BEAKER) (test 1.20 mg/dL 0.57-1.25 Specim en slightly code = 358) hemolyzed GLUCOSE RANDOM (BEAKER) 183 mg/dL 70-105 (test code = 652) CALCIUM (BEAKER) (test 9.0 mg/dL 8.4-10.2 code = 697) EGFR (BEAKER) (test code 59 mL/min/1.73 sq m EST IMATED GFR IS NOT = 1092) ACCURATE CREA TININE CLEARANCE IN PRE DICTING GLOMERULAR FILTR ATION RATE. ESTIMATED GFR IS NOT APPLICABLE F OR DIALYSIS PATIENT S. 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 Mechanic ID - ADAMARIS MVANCOMYCIN LEVEL, [id number] 19:14:00 Test Item Value Reference Range Comments VANCOMYCIN TROUGH (HAYDEN) (test code = 522) 10.8 ug/mL 10. 0-20.0 CT, CHEST, WITHOUT [id number] 13:42:00FINAL REPORT CT of the Chest, abdomen and pelvis dated 12/17/2019 Clinical inf ormation: pneumonia Comment: Axial images of the chest, abdomen, and pelvis were obtained from thoracic inlet to the pubic symphysis without GI or intravenous contrast. This exam was performed according to our departmental dose-optimization program, which includes automated exposure control, adjustment of the mA and/or kV according to patient size and/or use of interactive reconstruction technique. Heart is enlarged. There is small pericardial effusion. Atherosclerotic calcification is seen in the thoracic aorta and coronary arteries. Great vessels are unremarkable. No adenopathy in the mediast inum or perihilar region. Trachea and mainstem bronchi are patent. Moderate left pleural effusion is present with left lower lobe compressive atelectasis. Subsegmental atelectasis is seen in the rightlung base. The rest of the lungs are clear. No nodular, mass lesion, or airspace disease is seen. Liver and spleen are normal in size. No focal lesion is seen in the liver or the spleen. Gallbladder isdistended. No gallstone or biliary dilatation is noted. Pancreas and adrenals are unremarkable. Bothkidneys are normal in size. Several stones are seen in the left kidney measuring up to 4 mm in size.A 2 mm stone is seen in the midpole right kidney. No hydronephrosis or hydroureter is present. A 1 cm hemorrhagic cyst is seen in the midpole left kidney. A 2.5 cm hemorrhagic cyst is seen in the inferior pole left kidney. Diverticular disease is seen in the large bowel without diverticulitis. Small bowel and appendix are normal in caliber. Prostate is normal in size. The urinary bladder is contracted. Atherosclerotic calcifications is seen in the abdominal aorta, spleen mesenteric, right renal, andbilateral iliac arteries. Impression: 1. Cardiomegaly with small pericardial effusion.2. Left pleural effusion with left lower lobe compressive atelectasis.3. No pneumonia.4. Left hemorrhagic renal cysts and nonobstructive bilateral renal stones.5. Diverticulosis without diverticulitis. Signed: Edilberto Gregory MDReport Verified Date/Time: 12/17/2019 13:42:11 Reading Location: [facility] Body Reading Room CT, [id number] 13:42:00FINAL REPORT CT of the Chest, abdomen and pelvis dated 12/17/2019 Clinical information: pneumonia Comment: Axial images of the chest, abdomen, and pelvis were obtained from thoracic inlet to the pubic symphysis without GI or intravenous contrast. This exam was performed acco rding to our departmental dose-optimization program, which includes automated exposure control, adjustment of the mA and/or kV according to patient size and/or use of interactive reconstruction technique. Heart is enlarged. There is small pericardial effusion. Atherosclerotic calcification is seen in the thoracic aorta and coronary arteries. Great vessels are unremarkable. No adenopathy in the mediastinum or perihilar region. Trachea and mainstem bronchi are patent. Moderate left pleural effusion is present with left lower lobe compressive atelectasis. Subsegmental atelectasis is seen in the rightlung base. The rest of the lungs are clear. No nodular, mass lesion, or airspace disease is seen. Liver and spleen are normal in size. No focal lesion is seen in the liver or the spleen. Gallbladder isdistended. No gallstone or biliary dilatation is noted. Pancreas and adrenals are unremarkable. Bothkidneys are normal in size. Several stones are seen in the left kidney measuring up to 4 mm in size.A 2 mm stone is seen in the midpole right kidney. No hydronephrosis or hydroureter is present. A 1 cm hemorrhagic cyst is seen in the midpole left kidney. A 2.5 cm hemorrhagic cyst is seen in the inferior pole left kidney. Diverticular disease is seen in the large bowel without diverticulitis. Small bowel and appendix are normal in caliber. Prostate is normal in size. The urinary bladder is contracted. Atherosclerotic calcifications is seen in the abdominal aorta, spleen mesenteric, right renal, andbilateral iliac arteries. Impression: 1. Cardiomegaly with small pericardial effusion.2. Left pleural effusion with left lower lobe compressive atelectasis.3. No pneumonia.4. Left hemorrhagic renal cysts and nonobstructive bilateral renal stones.5. Diverticulosis without diverticulitis. Signed: Edilberto Gregory Verified Date/Time: 12/17/2019 13:42:11 Reading Location: [place] [id number] CT Body Reading Room CT, BRAIN, WITHOUT CONTRAST 2019-12-17 11:48:00FINAL REPORT CT, BRAIN, WITHOUT CONTRAST CLINICAL INDICATION: ams COMPARISON: None TECHNIQUE: Noncontrast axial CT imaging of the brain and skull. DOSE REDUCTION: Dose modulation, iterative reconstruction, and/or weight-based adjustment of the mA/kV was utilized to reduce theradiation dose to as low as reasonably achievable. FINDINGS:No intracranial hemorrhage, midline shift or mass effect. Midline structures are normally developed. Mild chronic microvascular ischemic changes of the periventricular and subcortical white matter are present. No hydrocephalus. Orbits are within normal limits. No obstructive paranasal sinus disease. ET tube and nasogastric tube IMPRESSION: No acute intracranial findings If there is persistent clinical concern for intracranial pathology, MR examination is recommended for further characterization. Signed: Madeline Casasort Verified Date/Time: 12/17/2019 11:48:34 Reading Location: [facility] C013V Neuro Reading Room RAD, CHEST, 1 VIEW, NON [id number] 10:42:00Reason for exam:->intubationFINAL REPORT CLINICAL HISTORY: intubation TECHNIQUE: 1 view of the chest. COMPARISON: 12/16/2019 IMPRESSION: An ETT and NGT appear unchanged. Left lung base pleural-parenchymal opacification is unchanged. The cardiomediastinal silhouette is magnified by technique with a pacemaker. Signed: Gil Pastor MDReport Verified Date/Time: 12/17/2019 10:42:15 Reading Location: [facility] Radiology Reading Room URINE [id number] 10:21:00 Test Item Value Reference Range Comments CULTURE (BEAKER) (test code = 1095) No growth [id number] 04:42:00 Test Item Value Reference Range Comments FERRITIN (BEAKER) (test code = 361) 4442 ng/mL 5-275 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 Mechanic ID - ADAMARIS MTSH/FREE T4 IF [id number] 04:41:00 Test Item Value Reference Range Comments THYROID STIMULATING HORMONE (BEAKER) (test code 0.72 uIU/mL 0.35-4.94 = 772) 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 Mechanic ID - ADAMARIS MVITAMIN B12 AND [id number] 04:41:00 Test Item Value Reference Range Comments VITAMIN B12 (BEAKER) (test code = 774) 767 pg/mL 213-816 FOLATE (BEAKER) (test code = 362) 5.1 ng/mL >=7.0 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 Mechanic ID - ADAMARIS BENIGNO, TIBC, % SAT. (WITHOUT FERRITIN)2019-12-17 03:47:00 Test Item Value Reference Range Comments IRON (BEAKER) (test code = 547) 21.0 ug/dL 40.0-160.0 TOTAL IRON BINDING CAPACITY (BEAKER) (test code = 115 ug/dL 250-450 769) IRON % SATURATION (2) (BEAKER) (test code = 2590) 18 % 20-55 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 Mechanic ID - ADAMARIS [id number] 03:46:00 Test Item Value Reference Range Comments MAGNESIUM (BEAKER) (test code = 627) 2.1 mg/dL 1.6-2.6 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 Mechanic ID - ADAMARIS MBASIC METABOLIC [id number] 03:46:00 Test Item Value Reference Range Comments SODIUM (BEAKER) (test 137 meq/L 136-145 code = 381) POTASSIUM (BEAKER) (test 3.7 meq/L 3.5-5.1 code = 379) CHLORIDE (BEAKER) (test 105 meq/L 98-107 code = 382) CO2 (BEAKER) (test code = 24 meq/L 22-29 355) BLOOD UREA NITROGEN 30 mg/dL 7-21 (BEAKER) (test code = 354) CREATININE (BEAKER) (test 1.15 mg/dL 0.57-1.25 code = 358) GLUCOSE RANDOM (BEAKER) 121 mg/dL 70-105 (test code = 652) CALCIUM (BEAKER) (test 8.9 mg/dL 8.4-10.2 code = 697) EGFR (BEAKER) (test code 62 mL/min/1.73 sq m EST IMATED GFR IS NOT = 1092) ACCURATE CREA TININE CLEARANCE IN PRE DICTING GLOMERULAR FILTR ATION RATE. ESTIMATED GFR IS NOT APPLICABLE F OR DIALYSIS PATIENT S. 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 Mechanic ID - ADAMARIS EPATIC FUNCTION [id number] 03:46:00 Test Item Value Reference Range Comments TOTAL PROTEIN (BEAKER) (test code = 770) 5.3 gm/dL 6.0-8.3 ALBUMIN (BEAKER) (test code = 1145) 2.1 g/dL 3.5-5.0 BILIRUBIN TOTAL (BEAKER) (test code = 377) 1.6 mg/dL 0.2-1 .2 BILIRUBIN DIRECT (BEAKER) (test code = 706) 1.1 mg/dL 0.1- 0.5 ALKALINE PHOSPHATASE (BEAKER) (test code = 346) 59 U/L 40-150 AST (SGOT) (BEAKER) (test code = 353) 29 U/L 5-34 ALT (SGPT) (BEAKER) (test code = 347) 15 U/L 6-55 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 Mechanic ID - ADAMARIS MCBC W/PLT COUNT & AUTO [id number] 03:46:00 Test Item Value Reference Range Comments WHITE BLOOD CELL COUNT (BEAKER) (test code = 13.7 K/ L 3.5 -10.5 775) RED BLOOD CELL COUNT (BEAKER) (test code = 761) 3.22 M/ L 4.63-6.08 HEMOGLOBIN (BEAKER) (test code = 410) 9.4 GM/DL 13.7-17.5 HEMATOCRIT (BEAKER) (test code = 411) 29.1 % 40.1-51.0 MEAN CORPUSCULAR VOLUME (BEAKER) (test code = 90.4 fL 79 .0-92.2 753) MEAN CORPUSCULAR HEMOGLOBIN (BEAKER) (test code 29.2 pg 25.7-32.2 = 751) MEAN CORPUSCULAR HEMOGLOBIN CONC (BEAKER) (test 32.3 GM/DL 32.3-36.5 code = 752) RED CELL DISTRIBUTION WIDTH (BEAKER) (test code 15.4 % 11.6-14.4 = 412) PLATELET COUNT (BEAKER) (test code = 756) 180 K/CU MM 150-45 0 MEAN PLATELET VOLUME (BEAKER) (test code = 754) 11.7 fL 9.4-12.4 NUCLEATED RED BLOOD CELLS (BEAKER) (test code = 0 /100 WBC 0-0 413) NEUTROPHILS RELATIVE PERCENT (BEAKER) (test code 79 % = 429) LYMPHOCYTES RELATIVE PERCENT (BEAKER) (test code 11 % = 430) MONOCYTES RELATIVE PERCENT (BEAKER) (test code = 6 % 431) EOSINOPHILS RELATIVE PERCENT (BEAKER) (test code 1 % = 432) BASOPHILS RELATIVE PERCENT (BEAKER) (test code = 0 % 437) NEUTROPHILS ABSOLUTE COUNT (BEAKER) (test code = 10.86 K/ L 1.78-5.38 670) LYMPHOCYTES ABSOLUTE COUNT (BEAKER) (test code = 1.54 K/ L 1.32-3.57 414) MONOCYTES ABSOLUTE COUNT (BEAKER) (test code = 0.80 K/ L 0 .30-0.82 415) EOSINOPHILS ABSOLUTE COUNT (BEAKER) (test code = 0.14 K/ L 0.04-0.54 416) BASOPHILS ABSOLUTE COUNT (BEAKER) (test code = 0.02 K/ L 0 .01-0.08 417) IMMATURE GRANULOCYTES-RELATIVE PERCENT (BEAKER) 2 % 0-1 (test code = 2801) PROTHROMBIN [id number] 03:35:00 Test Item Value Reference Range Comments PROTIME (BEAKER) (test code = 759) 17.6 seconds 11.9-14.2 INR (BEAKER) (test code = 370) 1.5 <=5.9 Effective 03/24/2019: PT Reference Range ChangeNew: 11.9-14.2 Previous: 11.7- 14.7RECOMMENDED COUMADIN/WARFARIN INR THERAPY RANGESSTANDARD DOSE: 2.0-3.0 Includes: PROPHYLAXIS for venous thrombosis, systemic embolization; TREATMENT for venous thrombosis and/or pulmonary embolus.HIGH RISK: Target INR is2.5-3.5 for patients wiht mechanical heart valves.LACTIC ACID, [id number] 03:28:00 Test Item Value Reference Range Comments LACTATE BLOOD VENOUS (2) 1.1 mmol/L 0.5-2.2 Specime n slightly hemolyzed (BEAKER) (test code = 2872) 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 Mechanic ID - ADAMARIS MRETICULOCYTE [id number] 03:21:00 Test Item Value Reference Range Comments RETICULOCYTE COUNT PCT (BEAKER) (test code = 575) 2.1 % 0.5-1.8 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 Mechanic ID - 6000BLOOD GAS, [id number] 03:16:00 Test Item Value Reference Range Comments PH ARTERIAL (BEAKER) (test code = 383) 7.51 7.35-7.45 PCO2 ARTERIAL (BEAKER) (test code = 384) 34 mmHg 35-45 PO2 ARTERIAL (BEAKER) (test code = 385) 154 mmHg 80-90 O2 SATURATION ARTERIAL (BEAKER) (test code = 386) 99.1 % 96.0-97.0 HCO3 ARTERIAL (BEAKER) (test code = 388) 26 mmol/L 21-29 BASE EXCESS ARTERIAL (BEAKER) (test code = 387) 3.6 mmol/L -2.0-3.0 PATIENT TEMPERATURE (BEAKER) (test code = 1818) 38.0 C FIO2 (BEAKER) (test code = 1819) 50.0 % [id number] 00:42:00 Test Item Value Reference Range Comments CORTISOL, TOTAL (BEAKER) (test code = 2755) 16.3 ug/dL 3.7- 19.4 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 Mechanic ID - BSVANCOMYCIN LEVEL, [id number] 21:12:00 Test Item Value Reference Range Comments VANCOMYCIN TROUGH (BEAKER) (test code = 522) 6.1 ug/mL 10. 0-20.0 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 Mechanic ID - [id number] 21:11:00 Test Item Value Reference Range Comments MAGNESIUM (BEAKER) (test code = 1.7 mg/dL 1.6-2.6 Specimen slightly hemolyzed 627) 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 Mechanic ID - [facility] METABOL[facility] [id number] 21:11:00 Test Item Value Reference Range Comments SODIUM (BEAKER) (test 137 meq/L 136-145 code = 381) POTASSIUM (BEAKER) (test 4.0 meq/L 3.5-5.1 Specime n slightly code = 379) hemolyzed CHLORIDE (BEAKER) (test 105 meq/L 98-107 code = 382) CO2 (BEAKER) (test code = 26 meq/L 22-29 355) BLOOD UREA NITROGEN 28 mg/dL 7-21 (BEAKER) (test code = 354) CREATININE (BEAKER) (test 1.13 mg/dL 0.57-1.25 Specim en slightly code = 358) hemolyzed GLUCOSE RANDOM (BEAKER) 111 mg/dL 70-105 (test code = 652) CALCIUM (BEAKER) (test 8.9 mg/dL 8.4-10.2 code = 697) EGFR (BEAKER) (test code 63 mL/min/1.73 sq m EST IMATED GFR IS NOT = 1092) ACCURATE CREA TININE CLEARANCE IN PRE DICTING GLOMERULAR FILTR ATION RATE. ESTIMATED GFR IS NOT APPLICABLE F OR DIALYSIS PATIENT S. 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 Mechanic ID - BSPOCT-GLUCOSE [id number] 18:34:00 Test Item Value Reference Range Comments POC-GLUCOSE METER (BEAKER) 95 mg/dL 70-110 : JIMI ALEX AT [facility] [address] [facility] (test code = 1538) [facility], [address]: 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 leatha ID = [id number] for LAWRENCE BOYER RAD, CHEST, 1 VIEW, NON [id number] 15:48:00Reason for exam:->ett placementShould this be performed at the bedside?->YesFINAL REPORT CHEST ONE VIEW HISTORY: Endotracheal tube placement COMPARISON: N one FINDINGS: Single portable AP examination of the chest was performed. Endotracheal tube tip is 5.5 cm proximal to the ada. Nasogastric tube passes below the diaphragm, with the tip not imaged. Right subclavian transvenous cardiac pacing hardware is present, with a lead in the region of the right ventricle. Right lung clear. No right pleural effusion or pneumothorax. There is increased opacity in the lower left hemithorax, obscuring the left heart border and left diaphragm, suggestive of left lung base airspace consolidation and a left pleural effusion. The cardiac shadow is partially obscured. Signed: Radha Marie MDReport Verified Date/Time: 12/16/2019 15:48:48 Reading Location: [facility] Radiology Reading Room BLOOD CULTURE IDENTIFICATION [id number] 15:32:00 Test Item Value Reference Range Comments LISTERIA MONOCYTOGENES (test Not detected Not detected code = 20160729) STAPHYLOCOCCUS (test code = Detected Not detected Coag ulase negative Staph 20161001) species (CoNS)- methicillin susceptibleFirst -line therapy: Cefazol in or Oxacillin (Oxaci llin preferred if SPECIAL PROJECTS MANAGER involvement) Mec A NOT DETECTEDPossible contamination. T he likelihood of pa thogenicity is increased if the organism is obse rved in multiple blood c ultures obtained from se parate venipunctures.Re ference Range: Not Detec alex STAPHYLOCOCCUS AUREUS (test Not detected Not detected code = 5281533) STREPTOCOCCUS (test code = Not detected Not detected 2189028) STREPTOCOCCUS AGALACTIAE Not detected Not detected (GROUP B) (test code = 2342209) STREPTOCOCCUS PNEUMONIAE Not detected Not detected (test code = 7314060) STREPTOCOCCUS PYOGENES (GROUP Not detected Not detected A) (test code = 4729552) ACINETOBACTER BAUMANNII (test Not detected Not detected code = 7816660) HAEMOPHILUS INFLUENZAE (test Not detected Not detected code = 7994462) NEISSERIA MENINGITIDIS (test Not detected Not detected code = 1583687) ENTEROBACTERIACEAE (test code Not detected Not detected = 3215986) ENTEROBACTER CLOACOE COMPLEX Not detected Not detected (test code = 2515887) KLEBSIELLA OXYTOCA (test code Not detected Not detected = 8043117) KLEBSIELLA PNEUMONIAE (test Not detected Not detected code = 1650) PROTEUS (test code = 5849601) Not detected Not detected SERRATIA MARCESCENS (test Not detected Not detected code = 5696573) JAMAL ALBICANS (test code = Not detected Not detected 3054653) JAMAL GLABRATA (test code = Not detected Not detected 9522682) JAMAL KRUSEI (test code = Not detected Not detected 6694254) JAMAL PARAPSILOSIS (test Not detected Not detected code = 3537983) JAMAL TROPICALIS (test code Not detected Not detected = 5842496) ESCHERICHIA COLI (test code = Not detected Not detected 5525114) METHICILLIN-RESISTANCE GENE Not detected Not detected (test code = 6398389) VANCOMYCIN-RESISTANCE GENE (test code = 6994254) CARBAPENEM-RESISTANCE GENE Not detected Not detected (test code = 8758535) ENTEROCOCCUS-BEAKER (test Not detected Not detected code = 6291998) PSEUDOMONAS AERUGINOSA-BEAKER Not detected Not detected (test code = 7517255) Other bacteria and resistance markers not targeted by this PCR panel cannot be excluded; therefore clinical correlation and follow up of serology, culture results, and other molecular studies is required. The results are not intended to be used as the sole means for clinical diagnosis or patient management decisions. This sample was tested at the [facility] Molecular Diagnostics Laboratory using the [employer] Blood Culture ID Panel. It is FDA cleared and has been verified and approved by the [facility] Molecular Diagnostics Laboratory for clinical use. This laboratory is CLIA-certified and College ofAmerican Pathologists (CAP)-accredited to perform high complexity testing.PHOSPHORUS 2019-12-16 15:18:00 Test Item Value Reference Range Comments PHOSPHORUS (BEAKER) (test code = 604) 4.2 mg/dL 2.3-4.7 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 Mechanic ID - BSCOMPREHENSIVE METABOLIC [id number] 15:18:00 Test Item Value Reference Range Comments TOTAL PROTEIN (BEAKER) 5.2 gm/dL 6.0-8.3 (test code = 770) ALBUMIN (BEAKER) (test 2.1 g/dL 3.5-5.0 code = 1145) ALKALINE PHOSPHATASE 63 U/L 40-150 (BEAKER) (test code = 346) BILIRUBIN TOTAL (BEAKER) 1.6 mg/dL 0.2-1.2 (test code = 377) SODIUM (BEAKER) (test code 137 meq/L 136-145 = 381) POTASSIUM (BEAKER) (test 3.1 meq/L 3.5-5.1 code = 379) CHLORIDE (BEAKER) (test 104 meq/L 98-107 code = 382) CO2 (BEAKER) (test code = 25 meq/L 22-29 355) BLOOD UREA NITROGEN 28 mg/dL 7-21 (BEAKER) (test code = 354) CREATININE (BEAKER) (test 1.19 mg/dL 0.57-1.25 code = 358) GLUCOSE RANDOM (BEAKER) 126 mg/dL 70-105 (test code = 652) CALCIUM (BEAKER) (test 9.0 mg/dL 8.4-10.2 code = 697) AST (SGOT) (BEAKER) (test 33 U/L 5-34 code = 353) ALT (SGPT) (BEAKER) (test 16 U/L 6-55 code = 347) EGFR (BEAKER) (test code = 59 mL/min/1.73 sq m E STIMATED GFR IS NOT 1092) ACCURATE CREA TININE CLEARANCE IN PRE DICTING GLOMERULAR FILTR ATION RATE. ESTIMATED GFR IS NOT APPLICABLE F OR DIALYSIS PATIENT S. 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 Mechanic ID - [id number] 15:09:00 Test Item Value Reference Range Comments AMMONIA (BEAKER) (test code = 348) 30 mol/L 18-72 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 Mechanic ID - [id number] 14:58:00 Test Item Value Reference Range Comments PROTIME (BEAKER) (test code = 759) 20.7 seconds 11.9-14.2 INR (BEAKER) (test code = 370) 1.8 <=5.9 PARTIAL THROMBOPLASTIN TIME (BEAKER) (test code 37.9 seconds 22.5-36.0 = 760) Effective 03/24/2019: PT Reference Range ChangeNew: 11.9-14.2 Previous: 11.7- 14.7RECOMMENDED COUMADIN/WARFARIN INR THERAPY RANGESSTANDARD DOSE: 2.0-3.0 Includes: PROPHYLAXIS for venous thrombosis, systemic embolization; TREATMENT for venous thrombosis and/or pulmonary embolus.HIGH RISK: Target INR is2.5-3.5 for patients wiht mechanical heart valves.[id number] 14:53:00 Test Item Value Reference Range Comments MAGNESIUM (BEAKER) (test code = 627) 1.6 mg/dL 1.6-2.6 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 Mechanic ID - BSLACTIC ACID, [id number] 14:46:00 Test Item Value Reference Range Comments LACTATE BLOOD ARTERIAL (2) (BEAKER) (test code = 1.1 mmol/L 0.5-2.2 7321) 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 Mechanic ID - BSPROTHROMBIN [id number] 14:44:00 Test Item Value Reference Range Comments PROTIME (BEAKER) (test code = 759) 20.6 seconds 11.9-14.2 INR (BEAKER) (test code = 370) 1.8 <=5.9 Effective 03/24/2019: PT Reference Range ChangeNew: 11.9-14.2 Previous: 11.7- 14.7RECOMMENDED COUMADIN/WARFARIN INR THERAPY RANGESSTANDARD DOSE: 2.0-3.0 Includes: PROPHYLAXIS for venous thrombosis, systemic embolization; TREATMENT for venous thrombosis and/or pulmonary embolus.HIGH RISK: Target INR is2.5-3.5 for patients wiht mechanical heart valves.BLOOD GAS, [id number] 14:43:00 Test Item Value Reference Range Comments PH ARTERIAL (BEAKER) (test code = 383) 7.43 7.35-7.45 PCO2 ARTERIAL (BEAKER) (test code = 384) 41 mmHg 35-45 PO2 ARTERIAL (BEAKER) (test code = 385) 102 mmHg 80-90 O2 SATURATION ARTERIAL (BEAKER) (test code = 386) 97.8 % 96.0-97.0 HCO3 ARTERIAL (BEAKER) (test code = 388) 27 mmol/L 21-29 BASE EXCESS ARTERIAL (BEAKER) (test code = 387) 2.1 mmol/L -2.0-3.0 PATIENT TEMPERATURE (BEAKER) (test code = 1818) 37.0 C FIO2 (BEAKER) (test code = 1819) 100.0 % SODIUM NA-STAT [id number] 14:43:00 Test Item Value Reference Range Comments SODIUM (BEAKER) (test code = 381) 134 meq/L 135-148 POTASSIUM-STAT [id number] 14:43:00 Test Item Value Reference Range Comments POTASSIUM (BEAKER) (test code = 379) 3.1 meq/L 3.6-5.5 GLUCOSE-STAT [id number] 14:43:00 Test Item Value Reference Range Comments GLUCOSE RANDOM (BEAKER) (test code = 652) 126 mg/dL 70-110 HGB/HCT (H&H) - STAT [id number] 14:43:00 Test Item Value Reference Range Comments HEMOGLOBIN (BEAKER) (test code = 410) 10.6 g/dL 13.0-16.8 HEMATOCRIT (BEAKER) (test code = 411) 31.0 % 40.0-50.0 CBC (HEMOGRAM ONLY)2019-12-16 14:39:00 Test Item Value Reference Range Comments WHITE BLOOD CELL COUNT 18.3 K/ L 3.5-10.5 (BEAKER) (test code = 775) RED BLOOD CELL COUNT (BEAKER) 3.40 M/ L 4.63-6.08 (test code = 761) HEMOGLOBIN (BEAKER) (test 9.9 GM/DL 13.7-17.5 code = 410) HEMATOCRIT (BEAKER) (test 30.3 % 40.1-51.0 code = 411) MEAN CORPUSCULAR VOLUME 89.1 fL 79.0-92.2 (BEAKER) (test code = 753) MEAN CORPUSCULAR HEMOGLOBIN 29.1 pg 25.7-32.2 (BEAKER) (test code = 751) MEAN CORPUSCULAR HEMOGLOBIN 32.7 GM/DL 32.3-36.5 CONC (BEAKER) (test code = 752) RED CELL DISTRIBUTION WIDTH 15.2 % 11.6-14.4 (BEAKER) (test code = 412) PLATELET COUNT (BEAKER) (test 160 K/CU MM 150-450 Di scordant result compared code = 756) to previous resu lt; clinical correlation requ ired.Patient transfused. MEAN PLATELET VOLUME (BEAKER) 11.8 fL 9.4-12.4 (test code = 754) NUCLEATED RED BLOOD CELLS 0 /100 WBC 0-0 (BEAKER) (test code = 413) CALCIUM, [id number] 14:30:00 Test Item Value Reference Range Comments CALCIUM IONIZED (BEAKER) (test code = 698) 1.22 mmol/L 1.12- 1.27 PH, BLOOD (BEAKER) (test code = 1810) 7.44 BLOOD GAS, [id number] 12:39:00 Test Item Value Reference Range Comments PH ARTERIAL (BEAKER) (test code = 383) 7.43 7.35-7.45 PCO2 ARTERIAL (BEAKER) (test code = 384) 40 mmHg 35-45 PO2 ARTERIAL (BEAKER) (test code = 385) 144 mmHg 80-90 O2 SATURATION ARTERIAL (BEAKER) (test code = 386) 99.0 % 96.0-97.0 HCO3 ARTERIAL (BEAKER) (test code = 388) 26 mmol/L 21-29 BASE EXCESS ARTERIAL (BEAKER) (test code = 387) 1.6 mmol/L -2.0-3.0 PATIENT TEMPERATURE (BEAKER) (test code = 1818) 35.9 C FIO2 (BEAKER) (test code = 1819) 60.0 % SODIUM NA-STAT [id number] 12:39:00 Test Item Value Reference Range Comments SODIUM (BEAKER) (test code = 381) 134 meq/L 135-148 POTASSIUM-STAT [id number] 12:39:00 Test Item Value Reference Range Comments POTASSIUM (BEAKER) (test code = 379) 3.3 meq/L 3.6-5.5 GLUCOSE-STAT [id number] 12:39:00 Test Item Value Reference Range Comments GLUCOSE RANDOM (BEAKER) (test code = 652) 116 mg/dL 70-110 HGB/HCT (H&H) - STAT [id number] 12:39:00 Test Item Value Reference Range Comments HEMOGLOBIN (BEAKER) (test code = 410) 10.9 g/dL 13.0-16.8 HEMATOCRIT (BEAKER) (test code = 411) 32.0 % 40.0-50.0 PROTHROMBIN [id number] 11:28:00 Test Item Value Reference Range Comments PROTIME (BEAKER) (test code = 759) 21.3 seconds 11.9-14.2 INR (BEAKER) (test code = 370) 1.9 <=5.9 Effective 03/24/2019: PT Reference Range ChangeNew: 11.9-14.2 Previous: 11.7- 14.7RECOMMENDED COUMADIN/WARFARIN INR THERAPY RANGESSTANDARD DOSE: 2.0-3.0 Includes: PROPHYLAXIS for venous thrombosis, systemic embolization; TREATMENT for venous thrombosis and/or pulmonary embolus.HIGH RISK: Target INR is2.5-3.5 for patients wiht mechanical heart valves.CALCIUM, [id number] 11:03:00 Test Item Value Reference Range Comments CALCIUM IONIZED (BEAKER) (test code = 698) 1.25 mmol/L 1.12- 1.27 PH, BLOOD (BEAKER) (test code = 1810) 7.48 BLOOD GAS, [id number] 11:03:00 Test Item Value Reference Range Comments PH ARTERIAL (BEAKER) (test code = 383) 7.48 7.35-7.45 PCO2 ARTERIAL (BEAKER) (test code = 384) 39 mmHg 35-45 PO2 ARTERIAL (BEAKER) (test code = 385) 128 mmHg 80-90 O2 SATURATION ARTERIAL (BEAKER) (test code = 386) 98.7 % 96.0-97.0 HCO3 ARTERIAL (BEAKER) (test code = 388) 28 mmol/L 21-29 BASE EXCESS ARTERIAL (BEAKER) (test code = 387) 4.6 mmol/L -2.0-3.0 PATIENT TEMPERATURE (BEAKER) (test code = 1818) 37.3 C FIO2 (BEAKER) (test code = 1819) 55.0 % SODIUM NA-STAT [id number] 11:03:00 Test Item Value Reference Range Comments SODIUM (BEAKER) (test code = 381) 134 meq/L 135-148 POTASSIUM-STAT [id number] 11:03:00 Test Item Value Reference Range Comments POTASSIUM (BEAKER) (test code = 379) 2.8 meq/L 3.6-5.5 GLUCOSE-STAT [id number] 11:03:00 Test Item Value Reference Range Comments GLUCOSE RANDOM (BEAKER) (test code = 652) 115 mg/dL 70-110 HGB/HCT (H&H) - STAT [id number] 11:03:00 Test Item Value Reference Range Comments HEMOGLOBIN (BEAKER) (test code = 410) 10.6 g/dL 13.0-16.8 HEMATOCRIT (BEAKER) (test code = 411) 31.0 % 40.0-50.0 [id number] 08:20:00 Test Item Value Reference Range Comments MAGNESIUM (BEAKER) (test code = 627) 1.7 mg/dL 1.6-2.6 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 Mechanic ID - GALAPBASIC METABOLIC [id number] 08:20:00 Test Item Value Reference Range Comments SODIUM (BEAKER) (test 136 meq/L 136-145 code = 381) POTASSIUM (BEAKER) (test 3.3 meq/L 3.5-5.1 code = 379) CHLORIDE (BEAKER) (test 102 meq/L 98-107 code = 382) CO2 (BEAKER) (test code = 24 meq/L 22-29 355) BLOOD UREA NITROGEN 25 mg/dL 7-21 (BEAKER) (test code = 354) CREATININE (BEAKER) (test 1.03 mg/dL 0.57-1.25 code = 358) GLUCOSE RANDOM (BEAKER) 114 mg/dL 70-105 (test code = 652) CALCIUM (BEAKER) (test 9.1 mg/dL 8.4-10.2 code = 697) EGFR (BEAKER) (test code 70 mL/min/1.73 sq m EST IMATED GFR IS NOT = 1092) ACCURATE CREA TININE CLEARANCE IN PRE DICTING GLOMERULAR FILTR ATION RATE. ESTIMATED GFR IS NOT APPLICABLE F OR DIALYSIS PATIENT S. 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 Mechanic ID - GALAPSpecimen slightly ictericHEPATIC FUNCTION [id number] 08:20:00 Test Item Value Reference Range Comments TOTAL PROTEIN (BEAKER) (test code = 770) 5.9 gm/dL 6.0-8.3 ALBUMIN (BEAKER) (test code = 1145) 2.4 g/dL 3.5-5.0 BILIRUBIN TOTAL (BEAKER) (test code = 377) 2.2 mg/dL 0.2-1 .2 BILIRUBIN DIRECT (BEAKER) (test code = 706) 1.2 mg/dL 0.1- 0.5 ALKALINE PHOSPHATASE (BEAKER) (test code = 346) 74 U/L 40-150 AST (SGOT) (BEAKER) (test code = 353) 36 U/L 5-34 ALT (SGPT) (BEAKER) (test code = 347) 18 U/L 6-55 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 Mechanic ID - GALAPSpecimen slightly ictericPROTHROMBIN [id number] 08:00:00 Test Item Value Reference Range Comments PROTIME (BEAKER) (test code = 759) 23.1 seconds 11.9-14.2 INR (BEAKER) (test code = 370) 2.1 <=5.9 Effective 03/24/2019: PT Reference Range ChangeNew: 11.9-14.2 Previous: 11.7- 14.7RECOMMENDED COUMADIN/WARFARIN INR THERAPY RANGESSTANDARD DOSE: 2.0-3.0 Includes: PROPHYLAXIS for venous thrombosis, systemic embolization; TREATMENT for venous thrombosis and/or pulmonary embolus.HIGH RISK: Target INR is2.5-3.5 for patients wiht mechanical heart valves.POCT-GLUCOSE [id number] 21:37:00 Test Item Value Reference Range Comments POC-GLUCOSE METER (BEAKER) 179 mg/dL 70-110 : JIMI ALEX AT [facility] [address] [facility] (test code = 1538) [facility], [address]: 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 leatha ID = [id number] for Kathy Guerra ia POCT-GLUCOSE [id number] 17:50:00 Test Item Value Reference Range Comments POC-GLUCOSE METER (BEAKER) 121 mg/dL 70-110 : JIMI ALEX AT [place] [id number] [facility] (test code = 1538) [facility], [address]30: 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 leatha ID = [id number] for LATISHA ZAVALETA BLOOD GAS, [id number] 17:25:00 Test Item Value Reference Range Comments PH ARTERIAL (BEAKER) (test code = 383) 7.55 7.35-7.45 PCO2 ARTERIAL (BEAKER) (test code = 384) 32 mmHg 35-45 PO2 ARTERIAL (BEAKER) (test code = 385) 67 mmHg 80-90 O2 SATURATION ARTERIAL (BEAKER) (test code = 386) 95.4 % 96.0-97.0 HCO3 ARTERIAL (BEAKER) (test code = 388) 28 mmol/L 21-29 BASE EXCESS ARTERIAL (BEAKER) (test code = 387) 5.3 mmol/L -2.0-3.0 PATIENT TEMPERATURE (BEAKER) (test code = 1818) 37.1 C FIO2 (BEAKER) (test code = 1819) 32.0 % EEG AWAKE AND [id number] 16:41:00Reason for exam:->amsDATE OF TEST: 12/15/19 DATE OF REPORT: 12/15/19 ACC: [id number] Start: 1603 End: 1624 CPT Code: 07011 ICD-10: R56.9 HISTORY: 74 yo male with HTN, HLD, CAD, Obesity, AVN s/p dual ppm 2007 and cardiomyopathy s/p BIV-ICD upgrade in 2015 who was transferred from [facility] for lead extraction. Patient was admitted to [facility] with change in mental status. Per son, he had positive blood clusters on that admission. He was re-admitted with changes in mental status. TECHNICAL SUMMARY: This is a digital video EEG recorded with 32 input channels reviewed with bipolar and referential montages using themodified combinatorial system nomenclature. MEDICATIONS: Heparin, influenza, pneumoc DESCRIPTIONOF RECORD: During the maximally alert state a 7-8 Hz posterior dominant rhythm was seen that was symmetric, reactive to eye opening and poorly modulated. More anteriorly, low voltage frontocentral betawas seen. There was excessive admixed theta and delta activity seen diffusely. State changes and reactivity were seen but no stage II sleep structures were seen. HV: Hyperventilation was not performed. PHOTIC STIMULATION: Flash stimulation was not performed IMPRESSION: Abnormal Awake and Drowsy EEG Continuous slow, generalized Background slow CLINICAL CORRELATION: This is an abnormal EEG supportive of a mild encephalopathy. No areas of focal dysfunction or epileptiform discharges were seen. An EEG without epileptiform discharges does not exclude the possibility of epilepsy. If the clinical suspicion for epilepsy remains, consider additional EEG recordings. Primitivo Chowdary MD, MS Neurophysiol ogasmita/Epilepsy Attending POCT-GLUCOSE [id number] 14:28:00 Test Item Value Reference Range Comments POC-GLUCOSE METER (BEAKER) 153 mg/dL 70-110 : JIMI WOOD AT [address] (test code = 1538) [facility], [address]: 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 leatha ID = [id number] for LATISHA ZAVALETA POCT-GLUCOSE [id number] 08:55:00 Test Item Value Reference Range Comments POC-GLUCOSE METER (BEAKER) 117 mg/dL 70-110 : JIMI WOOD AT [address] (test code = 1538) [facility], [address]: 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 leatha ID = [id number] for LATISHA ZAVALETA CBC W/PLT COUNT & AUTO [id number] 04:22:00 Test Item Value Reference Range Comments WHITE BLOOD CELL COUNT (BEAKER) (test code = 775) 16.2 K/ L 3.5-10.5 RED BLOOD CELL COUNT (BEAKER) (test code = 761) 3.70 M/ L 4.63-6.08 HEMOGLOBIN (BEAKER) (test code = 410) 11.0 GM/DL 13.7-17.5 HEMATOCRIT (BEAKER) (test code = 411) 31.8 % 40.1-51.0 MEAN CORPUSCULAR VOLUME (BEAKER) (test code = 85.9 fL 79 .0-92.2 753) MEAN CORPUSCULAR HEMOGLOBIN (BEAKER) (test code = 29.7 pg 25.7-32.2 751) MEAN CORPUSCULAR HEMOGLOBIN CONC (BEAKER) (test 34.6 GM/DL 32.3-36.5 code = 752) RED CELL DISTRIBUTION WIDTH (BEAKER) (test code = 14.6 % 11.6-14.4 412) PLATELET COUNT (BEAKER) (test code = 756) 88 K/CU MM 150-45 0 MEAN PLATELET VOLUME (BEAKER) (test code = 754) 12.4 fL 9.4-12.4 NUCLEATED RED BLOOD CELLS (BEAKER) (test code = 0 /100 WBC 0-0 413) NEUTROPHILS RELATIVE PERCENT (BEAKER) (test code 83 % = 429) LYMPHOCYTES RELATIVE PERCENT (BEAKER) (test code 8 % = 430) MONOCYTES RELATIVE PERCENT (BEAKER) (test code = 7 % 431) EOSINOPHILS RELATIVE PERCENT (BEAKER) (test code 0 % = 432) BASOPHILS RELATIVE PERCENT (BEAKER) (test code = 0 % 437) NEUTROPHILS ABSOLUTE COUNT (BEAKER) (test code = 13.36 K/ L 1.78-5.38 670) LYMPHOCYTES ABSOLUTE COUNT (BEAKER) (test code = 1.28 K/ L 1.32-3.57 414) MONOCYTES ABSOLUTE COUNT (BEAKER) (test code = 1.15 K/ L 0 .30-0.82 415) EOSINOPHILS ABSOLUTE COUNT (BEAKER) (test code = 0.05 K/ L 0.04-0.54 416) BASOPHILS ABSOLUTE COUNT (BEAKER) (test code = 0.03 K/ L 0 .01-0.08 417) IMMATURE GRANULOCYTES-RELATIVE PERCENT (BEAKER) 2 % 0-1 (test code = 2801) BASIC METABOLIC [id number] 03:32:00 Test Item Value Reference Range Comments SODIUM (BEAKER) (test 135 meq/L 136-145 code = 381) POTASSIUM (BEAKER) (test 3.1 meq/L 3.5-5.1 code = 379) CHLORIDE (BEAKER) (test 101 meq/L 98-107 code = 382) CO2 (BEAKER) (test code = 24 meq/L 22-29 355) BLOOD UREA NITROGEN 29 mg/dL 7-21 (BEAKER) (test code = 354) CREATININE (BEAKER) (test 1.04 mg/dL 0.57-1.25 code = 358) GLUCOSE RANDOM (BEAKER) 126 mg/dL 70-105 (test code = 652) CALCIUM (BEAKER) (test 9.1 mg/dL 8.4-10.2 code = 697) EGFR (BEAKER) (test code 69 mL/min/1.73 sq m EST IMATED GFR IS NOT = 1092) ACCURATE CREA TININE CLEARANCE IN PRE DICTING GLOMERULAR FILTR ATION RATE. ESTIMATED GFR IS NOT APPLICABLE F OR DIALYSIS PATIENT S. 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 Mechanic ID - DBSpecimen slightly ictericLIPID [id number] 03:32:00 Test Item Value Reference Range Comments TRIGLYCERIDES (BEAKER) (test code = 540) 126 mg/dL CHOLESTEROL (BEAKER) (test code = 631) 90 mg/dL HDL CHOLESTEROL (BEAKER) (test code = 976) 6 mg/dL LDL CHOLESTEROL CALCULATED (BEAKER) (test code = 59 mg/dL 633) Triglyceride Reference Range: Low Risk <150 Borderline 150-199 High Risk 200-499 Very High Risk >=500Cholesterol Reference Range: Low Risk <200 Borderline 200-239 High Risk >240HDL Cholesterol Reference Range: Low Risk >=60 High Risk <40LDL Cholesterol Reference Range: Optimal <100 Near Optimal 100-129 Borderline 130-159 High 160-189 Very High >=190 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 Mechanic ID - DBSpecimen slightly ictericHEPATIC FUNCTION PANEL 2019-12-15 03:32:00 Test Item Value Reference Range Comments TOTAL PROTEIN (BEAKER) (test code = 770) 5.7 gm/dL 6.0-8.3 ALBUMIN (BEAKER) (test code = 1145) 2.5 g/dL 3.5-5.0 BILIRUBIN TOTAL (BEAKER) (test code = 377) 2.8 mg/dL 0.2-1 .2 BILIRUBIN DIRECT (BEAKER) (test code = 706) 1.7 mg/dL 0.1- 0.5 ALKALINE PHOSPHATASE (BEAKER) (test code = 346) 71 U/L 40-150 AST (SGOT) (BEAKER) (test code = 353) 38 U/L 5-34 ALT (SGPT) (BEAKER) (test code = 347) 22 U/L 6-55 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 Mechanic ID - DBSpecimen slightly ictericPROTHROMBIN [id number] 03:09:00 Test Item Value Reference Range Comments PROTIME (BEAKER) (test code = 759) 22.9 seconds 11.9-14.2 INR (BEAKER) (test code = 370) 2.1 <=5.9 Effective 03/24/2019: PT Reference Range ChangeNew: 11.9-14.2 Previous: 11.7- 14.7RECOMMENDED COUMADIN/WARFARIN INR THERAPY RANGESSTANDARD DOSE: 2.0-3.0 Includes: PROPHYLAXIS for venous thrombosis, systemic embolization; TREATMENT for venous thrombosis and/or pulmonary embolus.HIGH RISK: Target INR is2.5-3.5 for patients wiht mechanical heart valves.
--- NOTE | 2020-02-21 20:20 | ER ---
Nurse's Notes [facility] Name: Schuyler Farris Jr Age: 74 yrs Sex: Male : 1945 Arrival Date: 02/21/2020 Time: 19:44 Bed 4 Private MD: Diagnosis: Fall from bed Presentation: 02/20 19:45 Coronavirus screen: Proceed with normal triage. Ebola Screen: Patient negative for [facility] fever greater than or equal to 101.5 degrees Fahrenheit, and additional compatible Ebola Virus Disease symptoms. Initial Sepsis Screen: Does the patient meet any 2 criteria? No. Patient's initial sepsis screen is negative. Does the patient have a suspected source of infection? No. Patient's initial sepsis screen is negative. Risk Assessment: Do you want to hurt yourself or someone else? Patient reports no desire to harm self or others. Onset of symptoms was February 21, 2020. 19:45 Method Of Arrival: EMS: [place] [address] 19:45 Acuity: JOSE 3 [facility] 19:46 Chief complaint: EMS states: "He had an unwitnessed fall today from [address], he is on blood thinners. he is reporting back pain and redness to his left side of his face. he denies LOC. he is normally un ambulatory and was up to get some juice.". 20:05 Care prior to arrival: None. Mechanism of Injury: Fall out of bed. Trauma event rr5 details: Injury occurred in the [facility], Injury occurred: [facility]. Trauma Activation: Alert Physician: ED Physician; Name: Jey; Notified At: 19:38; Arrived At: 19:38 Physician: General Surgeon; Name: ; Notified At: 19:38; Arrived At: Physician: Radiology; Name: Lesley Gordon; Notified At: 19:38; Arrived At: 19:39 Physician: Respiratory; Name: ; Notified At: 19:38; Arrived At: Physician: Lab; Name: ; Notified At: 19:38; Arrived At: Historical: - Allergies: 20:23 Bactrim; bb 20:23 Tetanus Vaccines \\T\\ Toxoid; bb - Home Meds: 20:22 aspirin 81 mg Oral chew 1 tab once daily [Active]; ipratropium-albuterol 0.5 mg-3 bb mg(2.5 mg base)/3 mL Inhl nebu as needed [Active]; lisinopril 10 mg Oral tab 1 tab once daily [Active]; metoprolol tartrate 75 mg Oral tab 1 tab 2 times per day [Active]; Namenda 5 mg oral tab daily [Active]; promethazine 25 mg Oral tab as needed [Active]; quetiapine 25 mg oral tab [Active]; Senna with Docusate Sodium 8.6-50 mg oral tab twice a day [Active]; terazosin 2 mg oral cap 1 cap once daily [Active]; Xarelto 20 mg oral tab 1 tab once daily [Active]; - PMHx: 20:22 Hyperlipidemia; Hypertension; pacemaker/defibrilator; CAD; CHF; Angina; bb - PSHx: 20:22 gastrostomy tube; pacemaker; bb - Immunization history:: Adult Immunizations up to date. - Social history:: Smoking status: Patient/guardian denies using tobacco, but has a distant history of tobacco abuse. - Immunization history: Last tetanus immunization: unknown. Screenin:31 Abuse screen: Denies threats or abuse. Denies injuries from another. Nutritional rr5 screening: No deficits noted. Tuberculosis screening: No symptoms or risk factors identified. Fall Risk Secondary diagnosis (15 points) impaired mobility, Ambulatory Aid- None/Bed Rest/Nurse Assist (0 pts). Gait- Impaired (20 pts.). Total Pagan Fall Scale indicates High Risk Score (45 or more points). Fall prevention measures have been instituted. Side Rails Up X 2 Placed Close to Nursing Station As available patient and family educated on Fall Prevention Program and Strategies. Primary Survey: 19:50 NO uncontrolled hemorrhage observed. A: The patient is alert. Airway: patent, Oxygen rr5 via nasal cannula at 2 liters per minute. Breathing/Chest: Respiratory pattern: regular, Respiratory effort: spontaneous, unlabored, Breath sounds: clear, bilaterally. Chest inspection: symmetrical rise and fall of the chest. Circulation: Heart tones present. Pulses: palpable right radial artery, right dorsalis pedis artery, left radial artery and left dorsalis pedis artery. 19:50 Disability Alert. Exposure/Environment: There is no evidence of uncontrolled external rr5 bleeding. Obvious injury(ies) are noted at this time: redness left side of the face A warming method has been applied: A warm blanket has been provided to the patient. 20:35 Reassessment Airway Airway Patent Breathing/Chest Respiratory pattern Regular rr5 Circulation Heart tones Present Pulses Palpable Color [place] Temperature Warm Dry Disability Alert. Secondary Survey: 19:50 HEENT: Head No injury/deformity Face Other redness left side of the face Eyes: No rr5 injury or deformity noted. to bilateral eyes. Ears: clear bilaterally. Nose: clear to bilateral nares. Throat: is clear with gag reflex present. Gastrointestinal: Abdomen is soft, Other PEG tube noted. : No signs and/or symptoms were reported regarding the genitourinary system. Musculoskeletal: Capillary refill < 3 seconds, abrasion right knee Reports pain in back. Assessment: 20:10 General: Appears in no apparent distress. comfortable, Behavior is calm, cooperative. rr5 Pain: Complains of pain in back Pain currently is 1 out of 10 on a pain scale. Quality of pain is described as aching, Pain began suddenly, Is intermittent. Neuro: Level of Consciousness is awake, alert, obeys commands, Oriented to person, place, time. Cardiovascular: Capillary refill < 3 seconds Patient's skin is warm and dry. Respiratory: Airway is patent Respiratory effort is even, unlabored, Respiratory pattern is regular, symmetrical. GI: PEG tube in place, clamped. Site clean. : No signs and/or symptoms were reported regarding the genitourinary system. EENT: No signs and/or symptoms were reported regarding the EENT system. Derm: redness left side face. abrasion right knee. Musculoskeletal: Capillary refill < 3 seconds. 20:30 Reassessment: Patient appears in no apparent distress at this time. report given to rr5 coral staff from [facility] and informed to arrange transport, patient is for discharge. 21:00 Reassessment: Charge nurse spoke to [facility] and son of the patient, for the rr5 follow up and to arrange transport for the patient. 22:00 Reassessment: Patient appears in no apparent distress at this time. No changes from rr5 previously documented assessment. Patient and/or family updated on plan of care and expected duration. Pain level reassessed. awaiting for transport. 23:21 Reassessment: Patient appears in no apparent distress at this time. No changes from rr5 previously documented assessment. report given ace, awake alert, breathing spontaneously, vitally stable. Vital Signs: 20:05 BP 160 / 84; Pulse 89; Resp 19 S; Temp 98.2(O); Pulse Ox 96% on R/A; Weight 90.72 kg jd3 (R); Height 6 ft. 1 in. (185.42 cm) (R); Pain 1/10; 20:30 BP 159 / 80; Pulse 85; Resp 17; Pulse Ox 100% on R/A; rr5 21:30 BP 155 / 75; Pulse 80; Resp 19; Pulse Ox 98% on 2 lpm NC; rr5 22:30 BP 151 / 80; Pulse 79; Resp 20; Temp 98; Pulse Ox 97% ; rr5 23:10 BP 153 / 89; Pulse 79; Resp 16; Temp 98.3; Pulse Ox 98% ; rr5 20:05 Body Mass Index 26.39 (90.72 kg, 185.42 cm) jd3 [place] Coma Score: 20:10 Eye Response: spontaneous(4). Verbal Response: oriented(5). Motor Response: obeys rr5 commands(6). Total: 15. 20:11 Eye Response: spontaneous(4). Verbal Response: oriented(5). Motor Response: obeys lasha commands(6). Total: 15. Trauma Score (Adult): 20:10 Eye Response: spontaneous(1); Verbal Response: oriented(1); Motor Response: obeys rr5 commands(2); Systolic BP: > 89 mm Hg(4); Respiratory Rate: 10 to 29 per min(4); Juwan Score: 15; Trauma Score: 12 ED Course: 19:44 Patient arrived in ED. bb 19:45 Gabe Khanna MD is Attending Physician. lasha 19:46 Freeman Pack RN is Primary Nurse. rr5 20:00 Inserted saline lock: 18 gauge in right antecubital area, using aseptic technique. ds4 Blood collected. 20:00 Oxygen administration via nasal cannula \\T\\ 2L/min. Thermoregulation: warm blanket given rr5 to patient. 20:05 Triage completed. jd3 20:07 Arm band placed on. jd3 20:10 Patient has correct armband on for positive identification. Placed in gown. Bed in low rr5 position. Call light in reach. Side rails up X2. radiation monitor on. Pulse ox on. NIBP on. 20:32 No provider procedures requiring assistance completed. rr5 23:21 IV discontinued, intact, bleeding controlled, No redness/swelling at site. Pressure rr5 dressing applied. Administered Medications: No medications were administered Intake: 20:37 PO: 0ml; Total: 0ml. rr5 Outcome: 20:19 Discharge ordered by MD. colby 20:37 Discharged to fdc. Report called to coral rr5 20:37 Discharge instructions given to fdc, Instructed on discharge instructions, follow up and referral plans. Demonstrated understanding of instructions, follow-up care. 21:30 Patient's length of stay in the Emergency Department was greater than 2 hours. [facility] r[facility]5 [facility] due to 23:21 Condition: stable rr5 23:24 Patient left the ED. rr5 Signatures: Gabe Khanna MD MD cha Ballard, Brenda, RN RN Pola Mota4 Curly Chahal RN RN jFreeman Richardson RN RN rr5
--- NOTE | 2020-02-21 20:20 | EDPHYS ---
Physician Documentation [facility] Name: Schuyler Farris Jr Age: 74 yrs Sex: Male : 1945 Arrival Date: 02/21/2020 Time: 19:44 Bed 4 Private MD: ED Physician Gabe Khanna HPI: 02/20 20:05 This 74 yrs old Male presents to ER via EMS with complaints of Fall Injury. lasha 20:05 Details of fall: The patient fell from a supine position, out of bed. Onset: The lasha symptoms/episode began/occurred just prior to arrival. Associated injuries: The patient sustained fall to right shoulder.nl rom is normal, denies hitting his head,neck and had no loc. Associated injuries: The patient sustained no obvious injury. Historical: - Allergies: 20:23 Bactrim; bb 20:23 Tetanus Vaccines \T\ Toxoid; bb - Home Meds: 20:22 aspirin 81 mg Oral chew 1 tab once daily [Active]; ipratropium-albuterol 0.5 mg-3 bb mg(2.5 mg base)/3 mL Inhl nebu as needed [Active]; lisinopril 10 mg Oral tab 1 tab once daily [Active]; metoprolol tartrate 75 mg Oral tab 1 tab 2 times per day [Active]; Namenda 5 mg oral tab daily [Active]; promethazine 25 mg Oral tab as needed [Active]; quetiapine 25 mg oral tab [Active]; Senna with Docusate Sodium 8.6-50 mg oral tab twice a day [Active]; terazosin 2 mg oral cap 1 cap once daily [Active]; Xarelto 20 mg oral tab 1 tab once daily [Active]; - PMHx: 20:22 Hyperlipidemia; Hypertension; pacemaker/defibrilator; CAD; CHF; Angina; bb - PSHx: 20:22 gastrostomy tube; pacemaker; bb - Immunization history:: Adult Immunizations up to date. - Social history:: Smoking status: Patient/guardian denies using tobacco, but has a distant history of tobacco abuse. - Immunization history: Last tetanus immunization: unknown. ROS: 20:10 Constitutional: Negative for fever, chills, and weight loss, Eyes: Negative for injury, lasha pain, redness, and discharge, ENT: Negative for injury, pain, and discharge, Neck: Negative for injury, pain, and swelling, Cardiovascular: Negative for chest pain, palpitations, and edema, Respiratory: Negative for shortness of breath, cough, wheezing, and pleuritic chest pain, Abdomen/GI: Negative for abdominal pain, nausea, vomiting, diarrhea, and constipation, Back: Negative for injury and pain, : Negative for injury, bleeding, discharge, and swelling, MS/Extremity: Negative for injury and deformity, Skin: Negative for injury, rash, and discoloration, Neuro: Negative for headache, weakness, numbness, tingling, and seizure, Psych: Negative for depression, anxiety, suicide ideation, homicidal ideation, and hallucinations, Allergy/Immunology: Negative for hives, rash, and allergies, Endocrine: Negative for neck swelling, polydipsia, polyuria, polyphagia, and marked weight changes, Hematologic/Lymphatic: Negative for swollen nodes, abnormal bleeding, and unusual bruising. Exam: 20:11 Constitutional: This is a well developed, well nourished patient who is awake, alert, lasha and in no acute distress. Head/Face: Normocephalic, atraumatic. Eyes: Pupils equal round and reactive to light, extra-ocular motions intact. Lids and lashes normal. Conjunctiva and sclera are non-icteric and not injected. Cornea within normal limits. Periorbital areas with no swelling, redness, or edema. ENT: Nares patent. No nasal discharge, no septal abnormalities noted. Tympanic membranes are normal and external auditory canals are clear. Oropharynx with no redness, swelling, or masses, exudates, or evidence of obstruction, uvula midline. Mucous membranes moist. Neck: Trachea midline, no thyromegaly or masses palpated, and no cervical lymphadenopathy. Supple, full range of motion without nuchal rigidity, or vertebral point tenderness. No Meningismus. Chest/axilla: Normal chest wall appearance and motion. Nontender with no deformity. No lesions are appreciated. Cardiovascular: Regular rate and rhythm with a normal S1 and S2. No gallops, murmurs, or rubs. Normal PMI, no JVD. No pulse deficits. Respiratory: Lungs have equal breath sounds bilaterally, clear to auscultation and percussion. No rales, rhonchi or wheezes noted. No increased work of breathing, no retractions or nasal flaring. Abdomen/GI: Soft, non-tender, with normal bowel sounds. No distension or tympany. No guarding or rebound. No evidence of tenderness throughout. Back: No spinal tenderness. No costovertebral tenderness. Full range of motion. Male : Normal genitalia with no discharge or lesions. Skin: Warm, dry with normal turgor. Normal color with no rashes, no lesions, and no evidence of cellulitis. MS/ Extremity: Pulses equal, no cyanosis. Neurovascular intact. Full, normal range of motion. Neuro: Awake and alert, GCS 15, oriented to person, place, time, and situation. Cranial nerves II-XII grossly intact. Motor strength 5/5 in all extremities. Sensory grossly intact. Cerebellar exam normal. Normal gait. Psych: Awake, alert, with orientation to person, place and time. Behavior, mood, and affect are within normal limits. Vital Signs: 20:05 BP 160 / 84; Pulse 89; Resp 19 S; Temp 98.2(O); Pulse Ox 96% on R/A; Weight 90.72 kg jd3 (R); Height 6 ft. 1 in. (185.42 cm) (R); Pain 1/10; 20:30 BP 159 / 80; Pulse 85; Resp 17; Pulse Ox 100% on R/A; rr5 21:30 BP 155 / 75; Pulse 80; Resp 19; Pulse Ox 98% on 2 lpm NC; rr5 22:30 BP 151 / 80; Pulse 79; Resp 20; Temp 98; Pulse Ox 97% ; rr5 23:10 BP 153 / 89; Pulse 79; Resp 16; Temp 98.3; Pulse Ox 98% ; rr5 20:05 Body Mass Index 26.39 (90.72 kg, 185.42 cm) jd3 [place] Coma Score: 20:10 Eye Response: spontaneous(4). Verbal Response: oriented(5). Motor Response: obeys rr5 commands(6). Total: 15. 20:11 Eye Response: spontaneous(4). Verbal Response: oriented(5). Motor Response: obeys lasha commands(6). Total: 15. Trauma Score (Adult): 20:10 Eye Response: spontaneous(1); Verbal Response: oriented(1); Motor Response: obeys rr5 commands(2); Systolic BP: > 89 mm Hg(4); Respiratory Rate: 10 to 29 per min(4); [place] Score: 15; Trauma Score: 12 MDM: 19:45 Patient medically screened. [facility] 20:13 Differential diagnosis: closed head injury, contusion, sprain, strain. Data reviewed: [facility] vital signs, nurses notes. ED course: pt alert and oriented x 4, denies hitting head or neck , pt is completely lucid, bed 2 feet off floor, shoulder took brunt of soft fall. pt does not want a cat scan and doesn't feel it is necessary, i agree. 20:28 Data interpreted: cardiac monitor: not applicable for this patient encounter. [facility] Administered Medications: No medications were administered Disposition: 02/21/20 20:19 Discharged to Home. Impression: Fall from bed. - Condition is Stable. - Discharge Instructions: Fall Prevention in the Home, Fall Prevention in the Home, [id number]. - Medication Reconciliation Form, Thank You Letter, Antibiotic Education, Prescription Opioid Use, SBAR form form. - Follow up: Private Physician; When: 1 - 2 days; Reason: Recheck today's complaints, Continuance of care, Re-evaluation by your physician. - Problem is new. - Symptoms have improved. Signatures: Gabe Khanna MD MD cha Ballard, Brenda, RN RN Curly Sanchez RN RN jd3 Roque, Raymond, RN RN rr5 Corrections: (The following items were deleted from the chart) 23:17 20:10 Fluid Challenge ordered. [facility] rr5 23:24 20:19 02/21/2020 20:19 Discharged to Home. Impression: Fall from bed. Condition is rr5 Stable. Forms are Medication Reconciliation Form, Thank You Letter, Antibiotic Education, Prescription Opioid Use. Follow up: Private Physician; When: 1 - 2 days; Reason: Recheck today's complaints, Continuance of care, Re-evaluation by your physician. Problem is new. Symptoms have improved. [facility]
[2020-02-21 23:38] VITALS: BP 153/89; TEMP 98.3; O2SAT 98
== END 2020-02-21 23:24 | disposition home or self-care (01) ==
LOC: ER 19:40
DX: S80.211A Abrasion, right knee, initial encounter (principal); W06.XXXA Fall from bed, initial encounter; Y93.89 Activity, other specified; Y92.122 Bedroom in nursing home as the place of occurrence of the external cause; I10 Essential (primary) hypertension; E78.5 Hyperlipidemia, unspecified; Z79.01 Long term (current) use of anticoagulants; Z79.82 Long term (current) use of aspirin; Z88.1 Allergy status to other antibiotic agents; Z88.7 Allergy status to serum and vaccine; Z95.0 Presence of cardiac pacemaker
CPT/HCPCS: 99285

== ENCOUNTER 2020-03-08 06:38 | Observation (INO) | payer OTHER ==
--- OUTSIDE RECORDS SUMMARY | 2020-03-08 06:44 | XMS REPORT | Clinical Summary ---
:1945 Author Organization [facility] Address [address] [place] [address] Care Team Providers Name Role Phone Edilberto Alcala Unavailable Allergies Active Allergy Reactions Severity Noted Date Comments Sulfamethoxazole-Trimethoprim 12/15/2019 Sulfa (Sulfonamide Antibiotics) 0 Tetanus Vaccines And Toxoid 12/15/2019 Medications Medication Sig Dispensed Refills Start End Status Date Date DAPTOmycin Inject 1,000 mg 0 12/29/19 Act keturah (CUBICIN) in intravenously 20 sodium chloride daily. (NS) NON-DEHP 50 ML IVPB ceftaroline Inject 600 mg 0 12/30/19 Acti ve (TEFLARO) MBP 600 intravenously 20 mg in 100 mL NS every 12 (twelve) hours. rivaroxaban Take 1 tablet (15 0 01/28/20 Active (XARELTO) 15 mg mg total) by 20 Tab tablet mouth 2 (two) times daily. zinc Apply 177 g 0 01/27/20 Active oxide-petrolatum topically as 20 (CRITIC-AID) 20-51 needed (perianal % Pste topical excoriation). paste furosemide (LASIX) Take 40 mg by 0 2 Discontinued 40 MG tablet mouth daily. 020 amLODIPine Take 5 mg by 0 2 Discon tinued (NORVASC) 5 MG mouth daily. 020 tablet aspirin 81 MG EC Take 81 mg by 0 2 Discontinued tablet mouth daily. 020 metoprolol Take 25 mg by 0 12/28/2 Disco ntinued (LOPRESSOR) 25 MG mouth. 020 tablet lisinopril Take 20 mg by 0 //2 Disco ntinued (PRINIVIL,ZESTRIL) mouth daily. 020 20 MG tablet pravastatin Take 20 mg by 0 12/28/2 Disc ontinued (PRAVACHOL) 20 MG mouth daily. 020 tablet sertraline Take 50 mg by 0 Disco ntinued (ZOLOFT) 25 MG mouth daily. 020 tablet traMADol (ULTRAM) Take 50 mg by 0 Discontinued 50 mg tablet mouth every 6 020 (six) hours as needed for Pain. tamsulosin Take 0.4 mg by 0 Disc ontinued (FLOMAX) 0.4 mg mouth once at 020 Cap 24 hr capsule bedtime. ondansetron Take 4 mg by 0 Disco ntinued (ZOFRAN-ODT) 4 MG mouth every 8 020 disintegrating (eight) hours as tablet needed for Nausea. acetaminophen Take 650 mg by 0 D iscontinued (TYLENOL) 325 MG mouth every 6 020 tablet (six) hours as needed for Pain. acetaminophen Take 2 tablets 0 12/29/19 E xpired (TYLENOL) 325 MG (650 mg total) by 20 020 tablet mouth every 6 (six) hours as needed for Fever for up to 30 days. aspirin 81 MG Take 1 tablet (81 30 tablet 0 12/30/19 chewable tablet mg total) by 20 020 mouth daily for 30 days. pravastatin Take 1 tablet (20 0 12/29/19 Discontinued (PRAVACHOL) 20 MG mg total) by 20 020 tablet mouth nightly for [address] 1 12 suppository 0 12/29/19 Expir ed (DULCOLAX) 10 mg suppository (10 020 suppository mg total) rectally daily as needed for up to 10 days. ceftaroline Inject 400 mg 0 12/29/19 Disc ontinued (TEFLARO) MBP 400 intravenously 20 020 mg in 100 mL NS every 12 (twelve) hours. heparin infusion Inject 150-3,500 100 mL 0 12/29/19 Discontinued 25,000 units in Units/hr 20 020 dextrose 5% (D5W) intravenously 250 mL (100 continuous. units/mL) honey 100 % Pste Apply 1 0 12/30/19 Exp ired application 20 020 topically daily for 30 days. hydrALAZINE Inject 0.5 mLs 1 mL 0 12/29/19 Exp ired (APRESOLINE) 20 (10 mg total) 20 020 mg/mL injection intravenously every 6 (six) hours as needed for up to 15 days. ipratropium-albute Take 3 mLs by 0 12/29/19 rol (DUO-NEB) 0.5 nebulization 20 020 mg-3 mg(2.5 mg every 6 (six) base)/3 mL hours for 30 nebulizer solution days. levoFLOXacin Inject 150 mLs 0 12/30/19 Di scontinued (LEVAQUIN) IVPB (750 mg total) 20 020 750 mg in dextrose intravenously 5% (D5W) 150 mL every other day. polyethylene Take 17 g by 0 12/30/19 Expi red glycol (GLYCOLAX) mouth daily for 3 20 020 17 gram packet days. senna-docusate Take 1 tablet by 0 12/29/19 (SENOKOT S) 8.6-50 mouth 2 (two) 20 020 mg per tablet times daily for 30 days. sodium chloride, Take 4 mLs by 0 12/29/19 Discontinued hypertonic, nebulization 2 20 020 (HYPER-MERRY) 7 % (two) times daily nebulizer solution for 30 days. terazosin (HYTRIN) Take 1 capsule (2 0 12/29/1912/26 2 MG capsule mg total) by 20 020 mouth nightly for 30 days. promethazine Take 1 tablet 30 tablet 0 01/27/20 Exp ired (PHENERGAN) 12.5 (12.5 mg total) 20 020 MG tablet by mouth every 6 (six) hours as needed for up to 7 days. 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 Encounters Date Type Specialty Care Team Description 01/26/2020 Surgery Gastroenterology Yesenia Crowe UPPER ENDOS COPY,MARIELENA Douglas MD 01/26/2020 Anesthesia Event Gastroenterology Peter Mcdonald MD 01/24/2020 Anesthesia Event Edilberto العراقي MD 01/24/2020 Surgery Brand Mojica, AICD GENERATO R & Niyah Maty, LEADS - INSFish COVARRUBIAS W/ GENERAL ANESTHE DEEJAY (SING/DUAL/MULT ) 01/17/2020 [facility] Cardiac Intensive Care Sara Go MD I nfection and inflammatory reaction due to cardiac device, implant, and graft, subsequent encounter; - Encounter Septic arthriti s, sternal (HCC); 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 Mediastinitis; Pleural effusio n on left; Delirium due to multiple etiologies, persistent, mixed level of activity 12/27/2019 Orders Only General Internal Medicine 12/21/2019 Orders Only Lab Sara Go MD Acute respi ratory failure with hy poxia (HCC) (Primary Dx) 12/17/2019 Outside Orders Lab Nico Frias 12/16/2019 Anesthesia Event Miguelito Cunningham, AA 12/16/2019 Surgery Sujata Kuhn MD LASER EXTRACTION,LEAD 12/15/2019 Orders Only General Internal Medicine 12/15/2019 Travel 12/14/2019 [facility] Cardiac Intensive Care Joanna Go MD Infection of pacemaker pocket, initial e ncounter (HCC); - Encounter Osmani Justice M D Staphylococcal infectious disease; 12/30/2019 [place], Acute hypoxemic respiratory failure (HCC); Tyrone Severe sepsis ( HCC); MD Tommy Infection of pa cemaker pocket, subsequent encounter; Bacteremia due to Staphylococcus; Arm DVT (deep v enous thromboembolism), acute, left (HCC); Acute respirato ry failure with hypoxia (HCC); Respiratory ignacio lure requiring intubation (HCC); Bloodstream inf ection associated with cardiovascular device, unspecified cardiovascular device type, subsequent encounter; Staph aureus in fection; Pneumonia, unsp ecified organism; Acute pulmonary edema (HCC) after 03/08/2019 Immunizations Name Dates Previously Given Next Due INFLUENZA TRIVALENT ADJUVANTED PF IM 12/15/2019 (Deferred: - per family pt already received vaccine) Pneumococcal Conjugate (Prevnar) 01/27/2020, 12/15/2019 (Def erred: - 13-Valent per family pt already received vaccine) Social History Tobacco Use Types Packs/Day Years Used Date Former Smoker Smokeless Tobacco: Never Used Alcohol Use Drinks/Week oz/Week Comments No Alcohol Habits Answer Date Recorded How often do you have a drink containing alcohol? Never 12/15/2019 How many drinks containing alcohol do you have on a typical Not asked day when you are drinking? How often do you have six or more drinks on one occasion? No t asked Sex Assigned at Date Recorded Not on file Job Start Date Occupation Industry Not on file Not on file Not on file Travel History Travel Start Travel End No recent travel history available. 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 ENGRAVER Weight 109.7 kg (241 lb 13.5 oz) 01/27/2020 7: 00 AM CDT Height 193 cm (6' 3.98") 01/27/2020 7:00 AM CDT Body Mass Index 29.45 01/27/2020 7:00 AM CDT Plan of Treatment Not on file Implants Implanted Type Area Paid Search Manager Device Shelf Model / Identifier Expiration Serial / Date Lot Ld Endocardial Df4 Act 55 [id number] - [id number] IMPLANTS Right : MEDTRONIC:CARD 11/25/2021 [id number] / Implanted: Qty: 1 on 01/24/2020 by Niyah Montilla MD Heart RHY:DISEASE MGT [id number] / Lead Tendril Sts 52cm [id number] - [id number] PACEMAKER/IC N/A: S T LOLITA 07/26/2022 / Implanted: Qty: 1 on 12/16/2019 by Sujata Kuhn MD D CHAMBER Heart MED:CARDIAC [id number] / DEVICE RHYM MGMT Lead Attain Performa 88cm [id number] - [id number] PACEMAKER/IC R ight: MEDTRONIC:CARD 11/04/2021 [id number] / Implanted: Qty: 1 on 01/24/2020 by Niyah Montilla MD D CHAMBER Heart RHY:DISEASE MGT [id number] / DEVICE Lead Pacemkr Capsur Novus 45cm [id number] - [id number] PACEMAKER/I C Right: MEDTRONIC:CARD 12/03/2021 [id number] / Implanted: Qty: 1 on 01/24/2020 by Niyah Montilla MD D CHAMBER Heart RHY:DISEASE MGT [id number] / DEVICE Crtd Claria Mri Quad Us Df4 [id number] - [id number] PACEMAKER/I C Right: MEDTRONIC:CARD 05/23/2021 [id number] / Implanted: Qty: 1 on 01/24/2020 by Niyah Montilla MD D CHAMBER Heart RHY:DISEASE MGT [id number] / DEVICE Procedures Procedure Name Priority Date/Time Associated Comments Diagnosis ARRYTHMIA IMPLANT 02/01/2020 10:41 REPORT - SCAN AM CDT CARDIAC CATH REPORT - 01/31/2020 8:40 SCAN AM CDT ARRYTHMIA IMPLANT 01/31/2020 8:40 REPORT - SCAN AM CDT RHYTHM STRIP - SCAN 01/31/2020 8:40 AM CDT POCT-GLUCOSE METER Routine 01/27/2020 5:58 Resul ts for this PM CDT procedure are i n the results section. POCT-GLUCOSE METER Routine 01/27/2020 1:44 Resul ts for this PM CDT procedure are i n the results section. MAGNESIUM Routine 01/27/2020 4:57 Results for this AM CDT procedure are i n the results section. BASIC METABOLIC PANEL Routine 01/27/2020 4:57 Re sults for this (7) AM CDT procedure are i n the results section. CBC (HEMOGRAM ONLY) Routine 01/27/2020 4:57 Resu lts for this AM CDT procedure are i n the results section. POCT-GLUCOSE METER Routine 01/27/2020 3:43 Resul ts for this AM CDT procedure are i n the results section. POCT-GLUCOSE METER Routine 01/26/2020 6:14 Resul ts for this PM CDT procedure are i n the results section. REPORT OF PROCEDURE - 01/26/2020 2:33 ENDOSCOPY URL PM CDT UPPER ENDOSCOPY,PEG 01/26/2020 2:00 Dysphagia, PM CDT unspecified type POCT-GLUCOSE METER Routine 01/26/2020 12:38 Resul ts for this PM CDT procedure are i n the results section. BASIC METABOLIC PANEL Routine 01/26/2020 5:23 Re sults for this (7) AM CDT procedure are i n the results section. CBC (HEMOGRAM ONLY) Routine 01/26/2020 5:23 Resu lts for this AM CDT procedure are i n the results section. POCT-GLUCOSE METER Routine 01/26/2020 12:16 Resul ts for this AM CDT procedure are i n the results section. ECHOCARDIOGRAM REPORT - 01/25/2020 9:10 SCAN PM CDT TROPONIN I Routine 01/25/2020 5:56 Results for this PM CDT procedure are i n the results section. POCT-GLUCOSE METER Routine 01/25/2020 3:32 Resul ts for this PM CDT procedure are i n the results section. POCT-GLUCOSE METER Routine 01/25/2020 12:14 Resul ts for this PM CDT procedure are i n the results section. CBC W/PLT COUNT & AUTO Routine 01/25/2020 5:26 R esults for this DIFFERENTIAL AM CDT procedure are i n the results section. TROPONIN I Routine 01/25/2020 5:26 Results for this AM CDT procedure are i n the results section. BASIC METABOLIC PANEL Routine 01/25/2020 5:26 Re sults for this (7) AM CDT procedure are i n the results section. CBC W/PLT COUNT & AUTO Routine 01/25/2020 5:26 R esults for this DIFFERENTIAL AM CDT procedure are i n the results section. CREATINE KINASE (CK) Routine 01/25/2020 5:26 Res ults for this AM CDT procedure are i n the results section. XR CHEST 1 VIEW Routine 01/25/2020 12:23 Results for this PORTABLE/BEDSIDE AM CDT procedure a re in the results section. GLUCOSE Routine 01/25/2020 12:12 Results for this AM CDT procedure are i n the results section. TROPONIN I Routine 01/25/2020 12:12 Results for this AM CDT procedure are i n the results section. ECG 12-LEAD Routine 01/24/2020 10:42 Results for this PM CDT procedure are i n the results section. LIMITED 2D STAT 01/24/2020 7:00 Results for this ECHOCARDIOGRAM PM CDT procedure are in the results section. XR CHEST 1 VIEW STAT 01/24/2020 4:27 Results for this PORTABLE/BEDSIDE PM CDT procedure a re in the results section. POCT-GLUCOSE METER Routine 01/24/2020 3:43 Resul ts for this PM CDT procedure are i n the results section. ECG 12-LEAD Routine 01/24/2020 3:22 PM CDT Procedure Note - Interface, External Ris In - 01/24/2020 3:25 PM CDT Ventricular Rate 77 BPM Atrial Rate 77 BPM P-R Interval 170 ms QRS Duration 172 ms Q-T Interval 488 ms QTC Calculation(Bazett) 552 ms P Westwood -6 degrees R Westwood 248 degrees T Westwood 38 degrees Electronic ventricular pacem eva When compared with ECG of 10:26, Electronic ventricular pacem eva has replaced Sinus rhythm ECG 12-LEAD STAT 01/24/2020 3:22 Results for this PM CDT procedure are i n the results section. 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 MAGNESIUM Routine 01/24/2020 2:47 Results for this AM CDT procedure are i n the results section. BASIC METABOLIC Routine 01/24/2020 2:47 Results for this PANEL (7) AM CDT procedure are i n the results section. CBC (HEMOGRAM ONLY) Routine 01/24/2020 2:47 Resu lts for this AM CDT procedure are i n the results section. CBC (HEMOGRAM ONLY) Routine 01/23/2020 3:27 Resu lts for this AM CDT procedure are i n the results section. POCT-GLUCOSE METER Routine 01/22/2020 5:48 Resul ts for this PM CDT procedure are i n the results section. POCT-GLUCOSE METER Routine 01/22/2020 12:18 Resul ts for this PM CDT procedure are i n the results section. POCT-GLUCOSE METER Routine 01/22/2020 6:11 Resul ts for this AM CDT procedure are i n the results section. CBC (HEMOGRAM ONLY) Routine 01/22/2020 3:53 Resu lts for this AM CDT procedure are i n the results section. POCT-GLUCOSE METER Routine 01/21/2020 11:45 Resul ts for this PM CDT procedure are i n the results section. POCT-GLUCOSE METER Routine 01/21/2020 5:58 Resul ts for this PM CDT procedure are i n the results section. POCT-GLUCOSE METER Routine 01/21/2020 11:57 Resul ts for this AM CDT procedure are i n the results section. POCT-GLUCOSE METER Routine 01/21/2020 6:25 Resul ts for this AM CDT procedure are i n the results section. CBC (HEMOGRAM ONLY) Routine 01/21/2020 4:42 Resu lts for this AM CDT procedure are i n the results section. BASIC METABOLIC Routine 01/21/2020 4:42 Results for this PANEL (7) AM CDT procedure are i n the results section. XR CHEST 1 VIEW Routine 01/21/2020 3:10 Results for this PORTABLE/BEDSIDE AM CDT procedure a re in the results section. POCT-GLUCOSE METER Routine 01/20/2020 11:16 Resul ts for this PM CDT procedure are i n the results section. POCT-GLUCOSE METER Routine 01/20/2020 6:20 Resul ts for this PM CDT procedure are i n the results section. POCT-GLUCOSE METER Routine 01/20/2020 1:14 Resul ts for this PM CDT procedure are i n the results section. POCT-GLUCOSE METER Routine 01/20/2020 5:33 Resul ts for this AM CDT procedure are i n the results section. CBC (HEMOGRAM ONLY) Routine 01/20/2020 4:57 Resu lts for this AM CDT procedure are i n the results section. PT/APTT Routine 01/20/2020 4:49 Results for this AM CDT procedure are i n the results section. HEPATIC FUNCTION Routine 01/20/2020 4:49 Results for this PANEL AM CDT procedure are i n the results section. BASIC METABOLIC Routine 01/20/2020 4:49 Results for this PANEL (7) AM CDT procedure are i n the results section. POCT-GLUCOSE METER Routine 01/19/2020 11:52 Resul ts for this PM CDT procedure are i n the results section. APTT Routine 01/19/2020 12:22 Results for this PM CDT procedure are i n the results section. CT CHEST WITHOUT IV Routine 01/19/2020 10:53 Resu lts for this CONTRAST AM CDT procedure are i n the results section. POCT-GLUCOSE METER Routine 01/19/2020 5:59 Resul ts for this AM CDT procedure are i n the results section. CBC (HEMOGRAM ONLY) Routine 01/19/2020 4:59 Resu lts for this AM CDT procedure are i n the results section. MAGNESIUM Routine 01/19/2020 4:59 Results for this AM CDT procedure are i n the results section. CREATINE KINASE (CK) Routine 01/19/2020 4:59 Res ults for this AM CDT procedure are i n the results section. C-REACTIVE PROTEIN Routine 01/19/2020 4:59 Resul ts for this AM CDT procedure are i n the results section. PT/APTT Routine 01/19/2020 4:59 Results for this AM CDT procedure are i n the results section. HEPATIC FUNCTION Routine 01/19/2020 4:59 Results for this PANEL AM CDT procedure are i n the results section. BASIC METABOLIC Routine 01/19/2020 4:59 Results for this PANEL (7) AM CDT procedure are i n the results section. APTT Routine 01/18/2020 11:15 Results for this PM CDT procedure are i n the results section. POCT-GLUCOSE METER Routine 01/18/2020 11:14 Resul ts for this PM CDT procedure are i n the results section. POCT-GLUCOSE METER Routine 01/18/2020 5:39 Resul ts for this PM CDT procedure are i n the results section. US THORACENTESIS Routine 01/18/2020 4:56 Results for this PM CDT procedure are i n the results section. APTT Routine 01/18/2020 4:51 Results for this PM CDT procedure are i n the results section. BLOOD CULTURE Routine 01/18/2020 4:50 Results fo r this PM CDT procedure are i n the results section. FUNGUS CULTURE + Routine 01/18/2020 4:21 Results for this SMEAR PM CDT procedure are i n the results section. BODY FLUID CULTURE + Routine 01/18/2020 4:21 Res ults for this GRAM STAIN PM CDT procedure are i n the results section. CYTOLOGY AP Routine 01/18/2020 4:20 Results for this PM CDT procedure are i n the results section. LACTATE Routine 01/18/2020 4:20 Results for this DEHYDROGENASE (LD), PM CDT procedur e are in PLEURAL FLUID the results section. PROTEIN, TOTAL, Routine 01/18/2020 4:20 Results for this PLEURAL FLUID PM CDT procedure are in the results section. GLUCOSE PLEURAL Routine 01/18/2020 4:20 Results for this FLUID PM CDT procedure are i n the results section. BODY FLUID CELL Routine 01/18/2020 4:20 Results for this COUNT WITH PM CDT procedure are i n DIFFERENTIAL the results section. XR CHEST 1 VIEW STAT 01/18/2020 3:53 Results for this PORTABLE/BEDSIDE PM CDT procedure a re in the results section. POCT-GLUCOSE METER Routine 01/18/2020 12:04 Resul ts for this PM CDT procedure are i n the results section. XR CHEST 1 VIEW Routine 01/18/2020 4:56 Results for this PORTABLE/BEDSIDE AM CDT procedure a re in the results section. CBC (HEMOGRAM ONLY) Routine 01/18/2020 4:10 Resu lts for this AM CDT procedure are i n the results section. LACTATE Routine 01/18/2020 4:10 Results for this DEHYDROGENASE (LDH) AM CDT procedur e are in the results section. CREATINE KINASE (CK) Routine 01/18/2020 4:10 Res ults for this AM CDT procedure are i n the results section. PT/APTT Routine 01/18/2020 4:10 Results for this AM CDT procedure are i n the results section. HEPATIC FUNCTION Routine 01/18/2020 4:10 Results for this PANEL AM CDT procedure are i n the results section. BASIC METABOLIC Routine 01/18/2020 4:10 Results for this PANEL (7) AM CDT procedure are i n the results section. POCT-GLUCOSE METER Routine 01/18/2020 12:34 Resul ts for this AM CDT procedure are i n the results section. APTT Routine 01/17/2020 9:22 Results for this PM CDT procedure are i n the results section. PLATELET COUNT Routine 01/17/2020 9:22 Results f or this PM CDT procedure are i n the results section. POCT-GLUCOSE METER Routine 01/17/2020 6:41 Resul ts for this PM CDT procedure are i n the results section. RHYTHM STRIP - SCAN 12/31/2019 2:21 PM DECORATIVE ENGRAVER ARRYTHMIA IMPLANT 12/31/2019 2:21 REPORT - SCAN PM DECORATIVE ENGRAVER POCT-GLUCOSE METER Routine 12/30/2019 12:28 Resul ts for this PM DECORATIVE ENGRAVER procedure are i n the results section. POCT-GLUCOSE METER Routine 12/30/2019 6:13 Resul ts for this AM DECORATIVE ENGRAVER procedure are i n the results section. CBC W/PLT COUNT & Routine 12/30/2019 4:06 Result s for this AUTO DIFFERENTIAL AM DECORATIVE ENGRAVER procedure are in the results section. APTT Routine 12/30/2019 4:06 Results for this AM DECORATIVE ENGRAVER procedure are i n the results section. PHOSPHORUS Routine 12/30/2019 4:06 Results for this AM DECORATIVE ENGRAVER procedure are i n the results section. COMPREHENSIVE Routine 12/30/2019 4:06 Results fo r this METABOLIC PANEL AM DECORATIVE ENGRAVER procedure ar e in the results section. CALCIUM, IONIZED Routine 12/30/2019 4:06 Results for this AM DECORATIVE ENGRAVER procedure are i n the results section. MAGNESIUM Routine 12/30/2019 4:06 Results for this AM DECORATIVE ENGRAVER procedure are i n the results section. CBC W/PLT COUNT & Routine 12/30/2019 4:06 Result s for this AUTO DIFFERENTIAL AM DECORATIVE ENGRAVER procedure are in the results section. POCT-GLUCOSE METER Routine 12/29/2019 9:56 Resul ts for this PM DECORATIVE ENGRAVER procedure are i n the results section. MAGNESIUM Routine 12/29/2019 9:54 Results for this PM DECORATIVE ENGRAVER procedure are i n the results section. POTASSIUM Routine 12/29/2019 9:54 Results for this PM DECORATIVE ENGRAVER procedure are i n the results section. POCT-GLUCOSE METER Routine 12/29/2019 6:13 Resul ts for this PM DECORATIVE ENGRAVER procedure are i n the results section. POCT-GLUCOSE METER Routine 12/29/2019 12:15 Resul ts for this PM DECORATIVE ENGRAVER procedure are i n the results section. APTT Routine 12/29/2019 4:22 Results for this AM DECORATIVE ENGRAVER procedure are i n the results section. CBC W/PLT COUNT & Routine 12/29/2019 4:21 Result s for this AUTO DIFFERENTIAL AM DECORATIVE ENGRAVER procedure are in the results section. B-TYPE NATRIURETIC Routine 12/29/2019 4:21 Resul ts for this FACTOR (BNP) AM DECORATIVE ENGRAVER procedure are i n the results section. PHOSPHORUS Routine 12/29/2019 4:21 Results for this AM DECORATIVE ENGRAVER procedure are i n the results section. COMPREHENSIVE Routine 12/29/2019 4:21 Results fo r this METABOLIC PANEL AM DECORATIVE ENGRAVER procedure ar e in the results section. CALCIUM, IONIZED Routine 12/29/2019 4:21 Results for this AM DECORATIVE ENGRAVER procedure are i n the results section. MAGNESIUM Routine 12/29/2019 4:21 Results for this AM DECORATIVE ENGRAVER procedure are i n the results section. CBC W/PLT COUNT & Routine 12/29/2019 4:21 Result s for this AUTO DIFFERENTIAL AM DECORATIVE ENGRAVER procedure are in the results section. POCT-GLUCOSE METER Routine 12/29/2019 12:38 Resul ts for this AM DECORATIVE ENGRAVER procedure are i n the results section. POTASSIUM Routine 12/29/2019 12:33 Results for this AM DECORATIVE ENGRAVER procedure are i n the results section. POCT-GLUCOSE METER Routine 12/28/2019 6:55 Resul ts for this PM DECORATIVE ENGRAVER procedure are i n the results section. TRANSFUSION SERVICE 12/28/2019 6:13 REPORT - SCAN PM DECORATIVE ENGRAVER APTT Routine 12/28/2019 5:08 Results for this PM DECORATIVE ENGRAVER procedure are i n the results section. BASIC METABOLIC Routine 12/28/2019 5:08 Results for this PANEL (7) PM DECORATIVE ENGRAVER procedure are i n the results section. APTT Routine 12/28/2019 12:29 Results for this PM DECORATIVE ENGRAVER procedure are i n the results section. POCT-GLUCOSE METER Routine 12/28/2019 12:10 Resul ts for this PM DECORATIVE ENGRAVER procedure are i n the results section. POCT-GLUCOSE METER Routine 12/28/2019 6:45 Resul ts for this AM DECORATIVE ENGRAVER procedure are i n the results section. CBC W/PLT COUNT & Routine 12/28/2019 4:35 Result s for this AUTO DIFFERENTIAL AM DECORATIVE ENGRAVER procedure are in the results section. BLOOD GAS, ARTERIAL Routine 12/28/2019 4:35 Resu lts for this AM DECORATIVE ENGRAVER procedure are i n the results section. APTT Routine 12/28/2019 4:35 Results for this AM DECORATIVE ENGRAVER procedure are i n the results section. PHOSPHORUS Routine 12/28/2019 4:35 Results for this AM DECORATIVE ENGRAVER procedure are i n the results section. COMPREHENSIVE Routine 12/28/2019 4:35 Results fo r this METABOLIC PANEL AM DECORATIVE ENGRAVER procedure ar e in the results section. CALCIUM, IONIZED Routine 12/28/2019 4:35 Results for this AM DECORATIVE ENGRAVER procedure are i n the results section. MAGNESIUM Routine 12/28/2019 4:35 Results for this AM DECORATIVE ENGRAVER procedure are i n the results section. CBC W/PLT COUNT & Routine 12/28/2019 4:35 Result s for this AUTO DIFFERENTIAL AM [employer] procedure are in the results section. XR CHEST 1 VIEW Routine 12/28/2019 4:16 Results for this PORTABLE/BEDSIDE AM [employer] procedure a re in the results section. POCT-GLUCOSE METER Routine 12/28/2019 12:01 Resul ts for this AM [employer] procedure are i n the results section. PREPARE STAT 12/27/2019 11:54 Results for this LEUKO-REDUCED RBC PM [employer] procedure are in the results section. POTASSIUM Routine 12/27/2019 11:14 Results for this PM [employer] procedure are i n the results section. MAGNESIUM Routine 12/27/2019 11:14 Results for this PM [employer] procedure are i n the results section. POCT-GLUCOSE METER Routine 12/27/2019 6:23 Resul ts for this PM [employer] procedure are i n the results section. TRANSFUSION SERVICE 12/27/2019 5:51 REPORT - SCAN PM [employer] CBC W/PLT COUNT & Routine 12/27/2019 5:45 Result s for this AUTO DIFFERENTIAL PM [employer] procedure are in the results section. CBC W/PLT COUNT & Routine 12/27/2019 5:45 Result s for this AUTO DIFFERENTIAL PM [employer] procedure are in the results section. MAGNESIUM Routine 12/27/2019 3:14 Results for this PM [employer] procedure are i n the results section. POTASSIUM Routine 12/27/2019 3:14 Results for this PM [employer] procedure are i n the results section. POCT-GLUCOSE METER Routine 12/27/2019 2:07 Resul ts for this PM [employer] procedure are i n the results section. ECG 12-LEAD Routine 12/27/2019 10:26 AM [employer] Procedure Note - Interface, External Ris In - 12/27/2019 10:33 AM [employer] Ventricular Rate 59 BPM Atrial Rate 85 BPM QRS Duration 196 ms Q-T Interval 514 ms QTC Calculation(Bazett) 508 ms R [place] 255 degrees T [place] 55 degrees Suspect arm lead reversal , interpretation assumes no reversal Sinus rhythm with complete h eart block and Wide QRS rhythm Non-specific intra-ventricul ar conduction block Possible Right ventricular h ypertrophy Inferior infarct , age undet ermined Anterolateral infarct , age undetermined Abnormal ECG When compared with ECG of 13:08, Wide QRS rhythm has replaced Electronic ventricular pacemaker Vent. rate has decreased BY 39 BPM ECG 12-LEAD Routine 12/27/2019 10:26 Results for this AM [employer] procedure are i n the results section. PREPARE LEUKO-REDUCED STAT 12/27/2019 7:27 Re sults for this RBC AM [employer] procedure are i n the results section. POCT-GLUCOSE METER Routine 12/27/2019 6:35 Resul ts for this AM [employer] procedure are i n the results section. CBC W/PLT COUNT & AUTO Routine 12/27/2019 4:21 R esults for this DIFFERENTIAL AM [employer] procedure are i n the results section. HEMOGLOBIN AND Routine 12/27/2019 4:21 Results f or this HEMATOCRIT AM [employer] procedure are i n the results section. APTT Routine 12/27/2019 4:21 Results for this AM [employer] procedure are i n the results section. MAGNESIUM Routine 12/27/2019 4:21 Results for this AM [employer] procedure are i n the results section. CBC W/PLT COUNT & AUTO Routine 12/27/2019 4:21 R esults for this DIFFERENTIAL AM [employer] procedure are i n the results section. BASIC METABOLIC PANEL Routine 12/27/2019 4:21 Re sults for this (7) AM [employer] procedure are i n the results section. BLOOD GAS, ARTERIAL Routine 12/27/2019 4:16 Resu lts for this AM [employer] procedure are i n the results section. XR CHEST 1 VIEW Routine 12/27/2019 3:28 Results for this PORTABLE/BEDSIDE AM [employer] procedure a re in the results section. POTASSIUM Routine 12/26/2019 11:59 Results for this PM [employer] procedure are i n the results section. HEMOGLOBIN AND Routine 12/26/2019 11:59 Results f or this HEMATOCRIT PM [employer] procedure are i n the results section. POCT-GLUCOSE METER Routine 12/26/2019 11:57 Resul ts for this PM [employer] procedure are i n the results section. APTT Routine 12/26/2019 10:22 Results for this PM [employer] procedure are i n the results section. POCT-GLUCOSE METER Routine 12/26/2019 5:21 Resul ts for this PM [employer] procedure are i n the results section. MAGNESIUM Routine 12/26/2019 5:16 Results for this PM [employer] procedure are i n the results section. POTASSIUM Routine 12/26/2019 5:16 Results for this PM [employer] procedure are i n the results section. HEMOGLOBIN AND Routine 12/26/2019 2:33 Results f or this HEMATOCRIT PM [employer] procedure are i n the results section. TRANSFUSE STAT 12/26/2019 1:49 LEUKO-REDUCED RED PM [employer] BLOOD CELLS POCT-GLUCOSE METER Routine 12/26/2019 1:20 Resul ts for this PM [employer] procedure are i n the results section. TYPE AND SCREEN, STAT 12/26/2019 9:03 Results for this AUTOMATED AM [employer] procedure are i n the results section. APTT Routine 12/26/2019 9:03 Results for this AM [employer] procedure are i n the results section. HEMOGLOBIN AND Routine 12/26/2019 7:59 Results f or this HEMATOCRIT AM [employer] procedure are i n the results section. POCT-GLUCOSE METER Routine 12/26/2019 6:18 Resul ts for this AM [employer] procedure are i n the results section. XR CHEST 1 VIEW Routine 12/26/2019 6:12 Results for this PORTABLE/BEDSIDE AM [employer] procedure a re in the results section. BLOOD GAS, ARTERIAL Routine 12/26/2019 4:03 Resu lts for this AM [employer] procedure are i n the results section. CBC W/PLT COUNT & AUTO Routine 12/26/2019 2:48 R esults for this DIFFERENTIAL AM [employer] procedure are i n the results section. APTT Routine 12/26/2019 2:48 Results for this AM [employer] procedure are i n the results section. MAGNESIUM Routine 12/26/2019 2:48 Results for this AM [employer] procedure are i n the results section. CBC W/PLT COUNT & AUTO Routine 12/26/2019 2:48 R esults for this DIFFERENTIAL AM [employer] procedure are i n the results section. BASIC METABOLIC PANEL Routine 12/26/2019 2:48 Re sults for this (7) AM [employer] procedure are i n the results section. POCT-GLUCOSE METER Routine 12/25/2019 11:49 Resul ts for this PM [employer] procedure are i n the results section. APTT Routine 12/25/2019 7:35 Results for this PM [employer] procedure are i n the results section. POCT-GLUCOSE METER Routine 12/25/2019 6:13 Resul ts for this PM [employer] procedure are i n the results section. SODIUM, RANDOM URINE Routine 12/25/2019 6:10 Res ults for this PM [employer] procedure are i n the results section. CREATININE, RANDOM Routine 12/25/2019 6:10 Resul ts for this URINE PM [employer] procedure are i n the results section. PROTEIN, RANDOM URINE Routine 12/25/2019 6:10 Re sults for this PM [employer] procedure are i n the results section. EOSINOPHIL SMEAR, Routine 12/25/2019 6:10 Result s for this URINE PM [employer] procedure are i n the results section. APTT Routine 12/25/2019 6:10 Results for this PM [employer] procedure are i n the results section. TRANSFUSION SERVICE 12/25/2019 5:51 REPORT - SCAN PM [employer] BLOOD CULTURE STAT 12/25/2019 1:24 Results fo r this PM [employer] procedure are i n the results section. BLOOD CULTURE STAT 12/25/2019 1:19 Results fo r this PM [employer] procedure are i n the results section. POCT-GLUCOSE METER Routine 12/25/2019 12:28 Resul ts for this PM [employer] procedure are i n the results section. APTT Routine 12/25/2019 12:07 Results for this PM [employer] procedure are i n the results section. POCT-GLUCOSE METER Routine 12/25/2019 6:46 Resul ts for this AM [employer] procedure are i n the results section. PHOSPHORUS Routine 12/25/2019 6:46 Results for this AM [employer] procedure are i n the results section. COMPREHENSIVE Routine 12/25/2019 6:46 Results fo r this METABOLIC PANEL AM [employer] procedure ar e in the results section. MAGNESIUM Routine 12/25/2019 6:46 Results for this AM [employer] procedure are i n the results section. US RENAL COMPLETE Routine 12/25/2019 6:31 Result s for this AM [employer] procedure are i n the results section. APTT Routine 12/25/2019 4:43 Results for this AM [employer] procedure are i n the results section. CBC W/PLT COUNT & AUTO Routine 12/25/2019 4:42 R esults for this DIFFERENTIAL AM [employer] procedure are i n the results section. COMPLEMENT COMPONENT Routine 12/25/2019 4:42 Res ults for this C4 AM [employer] procedure are i n the results section. COMPLEMENT COMPONENT Routine 12/25/2019 4:42 Res ults for this C3 AM [employer] procedure are i n the results section. CALCIUM, IONIZED Routine 12/25/2019 4:42 Results for this AM [employer] procedure are i n the results section. BLOOD GAS, ARTERIAL Routine 12/25/2019 4:42 Resu lts for this AM [employer] procedure are i n the results section. CBC W/PLT COUNT & AUTO Routine 12/25/2019 4:42 R esults for this DIFFERENTIAL AM [employer] procedure are i n the results section. XR CHEST 1 VIEW Routine 12/25/2019 2:59 Results for this PORTABLE/BEDSIDE AM [employer] procedure a re in the results section. POCT-GLUCOSE METER Routine 12/25/2019 1:15 Resul ts for this AM [employer] procedure are i n the results section. PREPARE LEUKO-REDUCED Routine 12/24/2019 11:54 Re sults for this RBC PM [employer] procedure are i n the results section. TRANSFUSION SERVICE 12/24/2019 5:52 REPORT - SCAN PM [employer] POCT-GLUCOSE METER Routine 12/24/2019 5:45 Resul ts for this PM [employer] procedure are i n the results section. EEG AWAKE AND DROWSY Routine 12/24/2019 3:37 Res ults for this PM [employer] procedure are i n the results section. SPUTUM CULTURE + GRAM Routine 12/24/2019 2:05 Re sults for this STAIN PM [employer] procedure are i n the results section. POCT-GLUCOSE METER Routine 12/24/2019 11:58 Resul ts for this AM [employer] procedure are i n the results section. XR CHEST 1 VIEW STAT 12/24/2019 9:50 Results for this PORTABLE/BEDSIDE AM [employer] procedure a re in the results section. CREATINE KINASE (CK) Add-On 12/24/2019 9:29 Res ults for this AM [employer] procedure are i n the results section. BASIC METABOLIC PANEL Routine 12/24/2019 9:29 Re sults for this (7) AM [employer] procedure are i n the results section. BLOOD CULTURE Routine 12/24/2019 9:29 Results fo r this AM [employer] procedure are i n the results section. BLOOD CULTURE Routine 12/24/2019 9:29 Results fo r this AM [employer] procedure are i n the results section. BLOOD GAS, ARTERIAL Routine 12/24/2019 7:34 Resu lts for this AM [employer] procedure are i n the results section. POCT-GLUCOSE METER Routine 12/24/2019 6:19 Resul ts for this AM [employer] procedure are i n the results section. CBC W/PLT COUNT & AUTO Routine 12/24/2019 3:24 R esults for this DIFFERENTIAL AM [employer] procedure are i n the results section. MAGNESIUM Routine 12/24/2019 3:24 Results for this AM [employer] procedure are i n the results section. CBC W/PLT COUNT & AUTO Routine 12/24/2019 3:24 R esults for this DIFFERENTIAL AM [employer] procedure are i n the results section. BASIC METABOLIC PANEL Routine 12/24/2019 3:24 Re sults for this (7) AM [employer] procedure are i n the results section. LACTIC ACID, ARTERIAL Routine 12/24/2019 3:24 Re sults for this AM [employer] procedure are i n the results section. APTT Routine 12/24/2019 2:30 Results for this AM [employer] procedure are i n the results section. POCT-GLUCOSE METER Routine 12/24/2019 12:10 Resul ts for this AM [employer] procedure are i n the results section. APTT Routine 12/23/2019 7:41 Results for this PM [employer] procedure are i n the results section. POCT-GLUCOSE METER Routine 12/23/2019 6:19 Resul ts for this PM [employer] procedure are i n the results section. P.E.T./CT WHOLE BODY Routine 12/23/2019 6:12 Res ults for this PI PM [employer] procedure are i n the results section. POCT-GLUCOSE METER Routine 12/23/2019 3:26 Resul ts for this PM [employer] procedure are i n the results section. POCT-GLUCOSE METER Routine 12/23/2019 1:45 Resul ts for this PM [employer] procedure are i n the results section. BLOOD GAS, ARTERIAL Routine 12/23/2019 1:41 Resu lts for this PM [employer] procedure are i n the results section. LACTIC ACID, ARTERIAL Routine 12/23/2019 1:38 Re sults for this PM [employer] procedure are i n the results section. HEMOGLOBIN AND Routine 12/23/2019 1:37 Results f or this HEMATOCRIT PM [employer] procedure are i n the results section. CORTISOL Routine 12/23/2019 1:37 Results for this PM [employer] procedure are i n the results section. APTT Routine 12/23/2019 1:37 Results for this PM [employer] procedure are i n the results section. RESPIRATORY PANEL SLHS Routine 12/23/2019 1:31 R esults for this PM [employer] procedure are i n the results section. MAGNESIUM Routine 12/23/2019 12:47 Results for this PM [employer] procedure are i n the results section. BASIC METABOLIC PANEL Routine 12/23/2019 12:47 Re sults for this (7) PM [employer] procedure are i n the results section. BLOOD CULTURE Routine 12/23/2019 10:51 Results fo r this AM [employer] procedure are i n the results section. CBC W/PLT COUNT & AUTO Routine 12/23/2019 10:35 R esults for this DIFFERENTIAL AM [employer] procedure are i n the results section. APTT Routine 12/23/2019 10:35 Results for this AM [employer] procedure are i n the results section. CBC W/PLT COUNT & AUTO Routine 12/23/2019 10:35 R esults for this DIFFERENTIAL AM [employer] procedure are i n the results section. BLOOD CULTURE Routine 12/23/2019 9:45 Results fo r this AM [employer] procedure are i n the results section. URINALYSIS W/ REFLEX STAT 12/23/2019 9:21 Res ults for this URINE CULTURE AM [employer] procedure are in the results section. TRANSFUSE Routine 12/23/2019 8:32 LEUKO-REDUCED RED AM [employer] BLOOD CELLS POCT-GLUCOSE METER Routine 12/23/2019 6:47 Resul ts for this AM [employer] procedure are i n the results section. BLOOD GAS, ARTERIAL STAT 12/23/2019 5:29 Resu lts for this AM [employer] procedure are i n the results section. TYPE AND SCREEN, Routine 12/23/2019 3:53 Results for this AUTOMATED AM [employer] procedure are i n the results section. CBC W/PLT COUNT & AUTO Routine 12/23/2019 2:31 R esults for this DIFFERENTIAL AM [employer] procedure are i n the results section. MAGNESIUM Routine 12/23/2019 2:31 Results for this AM [employer] procedure are i n the results section. CBC W/PLT COUNT & AUTO Routine 12/23/2019 2:31 R esults for this DIFFERENTIAL AM [employer] procedure are i n the results section. BASIC METABOLIC PANEL Routine 12/23/2019 2:31 Re sults for this (7) AM [employer] procedure are i n the results section. BLOOD GAS, ARTERIAL STAT 12/23/2019 2:25 Resu lts for this AM [employer] procedure are i n the results section. APTT Routine 12/23/2019 2:24 Results for this AM [employer] procedure are i n the results section. XR CHEST 1 VIEW STAT 12/23/2019 1:29 Results for this PORTABLE/BEDSIDE AM [employer] procedure a re in the results section. POCT-GLUCOSE METER Routine 12/23/2019 1:08 Resul ts for this AM [employer] procedure are i n the results section. BLOOD GAS, ARTERIAL STAT 12/23/2019 12:57 Resu lts for this AM [employer] procedure are i n the results section. POCT-GLUCOSE METER Routine 12/22/2019 11:30 Resul ts for this PM [employer] procedure are i n the results section. POTASSIUM Routine 12/22/2019 6:14 Results for this PM [employer] procedure are i n the results section. APTT Routine 12/22/2019 6:14 Results for this PM [employer] procedure are i n the results section. POCT-GLUCOSE METER Routine 12/22/2019 6:12 Resul ts for this PM [employer] procedure are i n the results section. XR ABDOMEN / KUB 1 Routine 12/22/2019 3:03 Resul ts for this VIEW PM [employer] procedure are i n the results section. POCT-GLUCOSE METER Routine 12/22/2019 12:36 Resul ts for this PM [employer] procedure are i n the results section. POTASSIUM Routine 12/22/2019 12:06 Results for this PM [employer] procedure are i n the results section. MAGNESIUM Routine 12/22/2019 12:06 Results for this PM [employer] procedure are i n the results section. APTT Routine 12/22/2019 12:06 Results for this PM [employer] procedure are i n the results section. BLOOD CULTURE Routine 12/22/2019 10:28 Results fo r this AM [employer] procedure are i n the results section. B-TYPE NATRIURETIC Routine 12/22/2019 9:47 Resul ts for this FACTOR (BNP) AM [employer] procedure are i n the results section. BLOOD GAS, ARTERIAL Routine 12/22/2019 9:46 Resu lts for this AM [employer] procedure are i n the results section. BLOOD CULTURE Routine 12/22/2019 9:39 Results fo r this AM [employer] procedure are i n the results section. XR CHEST 1 VIEW STAT 12/22/2019 8:21 Results for this PORTABLE/BEDSIDE AM [employer] procedure a re in the results section. APTT Routine 12/22/2019 7:56 Results for this AM [employer] procedure are i n the results section. HEMOGLOBIN AND Routine 12/22/2019 7:56 Results f or this HEMATOCRIT AM [employer] procedure are i n the results section. POCT-GLUCOSE METER Routine 12/22/2019 6:10 Resul ts for this AM [employer] procedure are i n the results section. APTT Routine 12/22/2019 6:07 Results for this AM [employer] procedure are i n the results section. MAGNESIUM Routine 12/22/2019 4:59 Results for this AM [employer] procedure are i n the results section. BASIC METABOLIC PANEL Routine 12/22/2019 4:59 Re sults for this (7) AM [employer] procedure are i n the results section. CBC W/PLT COUNT & AUTO Routine 12/22/2019 3:03 R esults for this DIFFERENTIAL AM [employer] procedure are i n the results section. CBC W/PLT COUNT & AUTO Routine 12/22/2019 3:03 R esults for this DIFFERENTIAL AM [employer] procedure are i n the results section. POCT-GLUCOSE METER Routine 12/22/2019 12:02 Resul ts for this AM [employer] procedure are i n the results section. APTT Routine 12/21/2019 11:06 Results for this PM [employer] procedure are i n the results section. GLUCOSE PLEURAL FLUID Routine 12/21/2019 5:36 Acute respirato ry Results for this PM [employer] failure with procedure are i n hypoxia (HCC) the results section. PROTEIN, BODY FLUID Routine 12/21/2019 5:36 Resu lts for this PM [employer] procedure are i n the results section. LACTATE DEHYDROGENASE Routine 12/21/2019 5:36 Re sults for this (LDH), BODY FLUID PM [employer] procedure are in the results section. FUNGUS CULTURE + STAT 12/21/2019 5:36 Results for this SMEAR PM [employer] procedure are i n the results section. BODY FLUID CULTURE + STAT 12/21/2019 5:36 Res ults for this GRAM STAIN PM [employer] procedure are i n the results section. BODY FLUID CELL COUNT Routine 12/21/2019 5:36 Re sults for this WITH DIFFERENTIAL PM [employer] procedure are in the results section. US THORACENTESIS Routine 12/21/2019 4:52 Results for this PM [employer] procedure are i n the results section. PT/APTT Routine 12/21/2019 4:50 Results for this PM [employer] procedure are i n the results section. XR CHEST 1 VIEW STAT 12/21/2019 3:21 Results for this PORTABLE/BEDSIDE PM [employer] procedure a re in the results section. POCT-GLUCOSE METER Routine 12/21/2019 12:25 Resul ts for this PM [employer] procedure are i n the results section. PROTHROMBIN TIME/INR STAT Add-on 12/21/2019 10:51 Res ults for this AM [employer] procedure are i n the results section. PT/APTT Routine 12/21/2019 10:51 Results for this AM [employer] procedure are i n the results section. CBC W/PLT COUNT & AUTO Routine 12/21/2019 4:36 R esults for this DIFFERENTIAL AM [employer] procedure are i n the results section. APTT Routine 12/21/2019 4:36 Results for this AM [employer] procedure are i n the results section. CREATINE KINASE (CK) Routine 12/21/2019 4:36 Res ults for this AM [employer] procedure are i n the results section. MAGNESIUM Routine 12/21/2019 4:36 Results for this AM [employer] procedure are i n the results section. CBC W/PLT COUNT & AUTO Routine 12/21/2019 4:36 R esults for this DIFFERENTIAL AM [employer] procedure are i n the results section. BASIC METABOLIC PANEL Routine 12/21/2019 4:36 Re sults for this (7) AM [employer] procedure are i n the results section. POCT-GLUCOSE METER Routine 12/20/2019 11:27 Resul ts for this PM [employer] procedure are i n the results section. BLOOD GAS, ARTERIAL Routine 12/20/2019 9:09 Resu lts for this PM [employer] procedure are i n the results section. POCT-GLUCOSE METER Routine 12/20/2019 6:24 Resul ts for this PM [employer] procedure are i n the results section. APTT Routine 12/20/2019 4:50 Results for this PM [employer] procedure are i n the results section. BLOOD CULTURE Routine 12/20/2019 1:13 Results fo r this PM [employer] procedure are i n the results section. POCT-GLUCOSE METER Routine 12/20/2019 11:59 Resul ts for this AM [employer] procedure are i n the results section. APTT Routine 12/20/2019 10:51 Results for this AM [employer] procedure are i n the results section. BLOOD CULTURE Routine 12/20/2019 10:47 Results fo r this IDENTIFICATION PANEL AM [employer] procedu re are in the results section. BLOOD CULTURE Routine 12/20/2019 10:47 Results fo r this AM [employer] procedure are i n the results section. BLOOD GAS, ARTERIAL Routine 12/20/2019 9:57 Resu lts for this AM [employer] procedure are i n the results section. POCT-GLUCOSE METER Routine 12/20/2019 5:41 Resul ts for this AM [employer] procedure are i n the results section. CBC W/PLT COUNT & AUTO Routine 12/20/2019 3:43 R esults for this DIFFERENTIAL AM [employer] procedure are i n the results section. APTT Routine 12/20/2019 3:43 Results for this AM [employer] procedure are i n the results section. MAGNESIUM Routine 12/20/2019 3:43 Results for this AM [employer] procedure are i n the results section. CBC W/PLT COUNT & AUTO Routine 12/20/2019 3:43 R esults for this DIFFERENTIAL AM [employer] procedure are i n the results section. BASIC METABOLIC PANEL Routine 12/20/2019 3:43 Re sults for this (7) AM [employer] procedure are i n the results section. POCT-GLUCOSE METER Routine 12/19/2019 11:13 Resul ts for this PM [employer] procedure are i n the results section. APTT Routine 12/19/2019 8:55 Results for this PM [employer] procedure are i n the results section. APTT Routine 12/19/2019 1:07 Results for this PM [employer] procedure are i n the results section. POCT-GLUCOSE METER Routine 12/19/2019 12:00 Resul ts for this PM [employer] procedure are i n the results section. XR CHEST 1 VIEW OLGA 12/19/2019 10:44 Results for this PORTABLE/BEDSIDE AM [employer] procedure a re in the results section. APTT Routine 12/19/2019 6:18 Results for this AM [employer] procedure are i n the results section. MAGNESIUM Routine 12/19/2019 6:18 Results for this AM [employer] procedure are i n the results section. BASIC METABOLIC PANEL Routine 12/19/2019 6:18 Re sults for this (7) AM [employer] procedure are i n the results section. 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 POTASSIUM Routine 12/18/2019 5:39 Results for this PM [employer]ATIVE ENGRAVER procedure are i n the results section. MAGNESIUM Routine 12/18/2019 5:39 Results for this PM [employer]ORATIVE ENGRAVER procedure are i n the results section. BLOOD CULTURE Routine 12/18/2019 1:15 Results fo r this PM [employer]ATIVE ENGRAVER procedure are i n the results section. BLOOD CULTURE Routine 12/18/2019 12:57 Results fo r this PM [employer]ATIVE ENGRAVER procedure are i n the results section. POTASSIUM Routine 12/18/2019 11:12 Results for this AM [employer]ORATIVE ENGRAVER procedure are i n the results section. MAGNESIUM Routine 12/18/2019 11:12 Results for this AM [employer]ORATIVE ENGRAVER procedure are i n the results section. 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 CBC W/PLT COUNT & AUTO Routine 12/18/2019 4:22 R esults for this DIFFERENTIAL AM [employer]ATIVE ENGRAVER procedure are i n the results section. MAGNESIUM Routine 12/18/2019 4:22 Results for this AM [employer]ORATIVE ENGRAVER procedure are i n the results section. CBC W/PLT COUNT & AUTO Routine 12/18/2019 4:22 R esults for this DIFFERENTIAL AM [employer]ATIVE ENGRAVER procedure are i n the results section. BASIC METABOLIC PANEL Routine 12/18/2019 4:22 Re sults for this (7) AM [employer]ATIVE ENGRAVER procedure are i n the results section. HEMOGLOBIN A1C Routine 12/18/2019 4:22 Results f or this AM [employer]ORATIVE ENGRAVER procedure are i n the results section. ECHOCARDIOGRAM REPORT 12/17/2019 9:22 - SCAN PM DECORATIVE ENGRAVER VENOUS DOPPLER ARM, OLGA 12/17/2019 8:10 Resu lts for this LEFT PM [employer]ORATIVE ENGRAVER procedure are i n the results section. TRANSFUSION SERVICE 12/17/2019 6:02 REPORT - SCAN PM [employer]ORATIVE ENGRAVER BLOOD CULTURE Routine 12/17/2019 3:00 Results fo r this PM DECORATIVE ENGRAVER procedure are i n the results section. BLOOD CULTURE Routine 12/17/2019 3:00 Results fo r this PM [employer]ATIVE ENGRAVER procedure are i n the results section. VANCOMYCIN LEVEL, Timed 12/17/2019 2:00 Result s for this TROUGH PM [employer]ATIVE ENGRAVER procedure are i n the results section. CT ABDOMEN/PELVIS Routine 12/17/2019 11:15 Result s for this WITHOUT IV CONTRAST AM DECORATIVE ENGRAVER procedur e are in the results section. CT CHEST WITHOUT IV Routine 12/17/2019 11:15 Resu lts for this CONTRAST AM [employer]ATIVE ENGRAVER procedure are i n the results section. CT BRAIN WITHOUT IV Routine 12/17/2019 11:15 Resu lts for this CONTRAST AM [employer]ATIVE ENGRAVER procedure are i n the results section. LIMITED 2D STAT 12/17/2019 8:25 Results for this ECHOCARDIOGRAM AM [employer]ORATIVE ENGRAVER procedure are in the results section. XR CHEST 1 VIEW Routine 12/17/2019 5:24 Results for this PORTABLE/BEDSIDE AM DECORATIVE ENGRAVER procedure a re in the results section. CBC W/PLT COUNT & AUTO Routine 12/17/2019 3:09 R esults for this DIFFERENTIAL AM [employer]ATIVE ENGRAVER procedure are i n the results section. VITAMIN B12 AND FOLATE Routine 12/17/2019 3:09 R esults for this AM DECORATIVE ENGRAVER procedure are i n the results section. RETICULOCYTE COUNT Routine 12/17/2019 3:09 Resul ts for this AM DECORATIVE ENGRAVER procedure are i n the results section. IRON, TIBC, % SAT. Routine 12/17/2019 3:09 Resul ts for this (WITHOUT FERRITIN) AM [employer]ORATIVE ENGRAVER procedure are in the results section. FERRITIN Routine 12/17/2019 3:09 Results for this AM DECORATIVE ENGRAVER procedure are i n the results section. LACTIC ACID, VENOUS Routine 12/17/2019 3:09 Resu lts for this AM [employer]ATIVE ENGRAVER procedure are i n the results section. TSH/FREE T4 IF Routine 12/17/2019 3:09 Results f or this INDICATED AM [employer]ATIVE ENGRAVER procedure are i n the results section. BLOOD GAS, ARTERIAL Routine 12/17/2019 3:09 Resu lts for this AM [employer]ATIVE ENGRAVER procedure are i n the results section. MAGNESIUM Routine 12/17/2019 3:09 Results for this AM DECORATIVE ENGRAVER procedure are i n the results section. CBC W/PLT COUNT & AUTO Routine 12/17/2019 3:09 R esults for this DIFFERENTIAL AM [employer]ATIVE ENGRAVER procedure are i n the results section. BASIC METABOLIC PANEL Routine 12/17/2019 3:09 Re sults for this (7) AM [employer]ATIVE ENGRAVER procedure are i n the results section. PROTHROMBIN TIME/INR Routine 12/17/2019 3:09 Res ults for this AM [employer]ORATIVE ENGRAVER procedure are i n the results section. HEPATIC FUNCTION PANEL Routine 12/17/2019 3:09 R esults for this AM [employer]ORATIVE ENGRAVER procedure are i n the results section. CORTISOL Routine 12/16/2019 11:34 Results for this PM [employer]ORATIVE ENGRAVER procedure are i n the results section. VANCOMYCIN LEVEL, Timed 12/16/2019 8:15 Result s for this TROUGH PM [employer]ORATIVE ENGRAVER procedure are i n the results section. MAGNESIUM Routine 12/16/2019 8:15 Results for this PM DECORATIVE ENGRAVER procedure are i n the results section. BASIC METABOLIC PANEL Routine 12/16/2019 8:15 Re sults for this (7) PM [employer]ORATIVE ENGRAVER procedure are i n the results section. POCT-GLUCOSE METER Routine 12/16/2019 6:20 Resul ts for this PM [employer]ORATIVE ENGRAVER procedure are i n the results section. TRANSFUSION SERVICE 12/16/2019 5:50 REPORT - SCAN PM DECORATIVE ENGRAVER BLOOD CULTURE Routine 12/16/2019 3:54 Results fo r this PM [employer]ORATIVE ENGRAVER procedure are i n the results section. BLOOD CULTURE Routine 12/16/2019 3:34 Results fo r this PM [employer]ATIVE ENGRAVER procedure are i n the results section. XR CHEST 1 VIEW STAT 12/16/2019 3:24 Results for this PORTABLE/BEDSIDE PM DECORATIVE ENGRAVER procedure a re in the results section. PT/APTT STAT 12/16/2019 2:38 Results for this PM [employer]ORATIVE ENGRAVER procedure are i n the results section. AMMONIA Routine 12/16/2019 2:38 Results for this PM DECORATIVE ENGRAVER procedure are i n the results section. PHOSPHORUS STAT 12/16/2019 2:33 Results for this PM DECORATIVE ENGRAVER procedure are i n the results section. COMPREHENSIVE Routine 12/16/2019 2:33 Results fo r this METABOLIC PANEL PM DECORATIVE ENGRAVER procedure ar e in the results section. HGB/HCT (H&H) - STAT STAT 12/16/2019 2:31 Res ults for this LAB PM [employer]ATIVE ENGRAVER procedure are i n the results section. GLUCOSE-STAT LAB STAT 12/16/2019 2:31 Results for this PM [employer]ORATIVE ENGRAVER procedure are i n the results section. POTASSIUM-STAT LAB STAT 12/16/2019 2:31 Resul ts for this PM [employer]ATIVE ENGRAVER procedure are i n the results section. SODIUM NA-STAT LAB STAT 12/16/2019 2:31 Resul ts for this PM [employer]ORATIVE ENGRAVER procedure are i n the results section. BLOOD GAS, ARTERIAL STAT 12/16/2019 2:31 Resu lts for this PM [employer]ORATIVE ENGRAVER procedure are i n the results section. RRL CRITICAL LABS STAT 12/16/2019 2:31 Result s for this (ABG,NA,K,H&H,GLUCOSE) PM DECORATIVE ENGRAVER proce dure are in the results section. LACTIC ACID, ARTERIAL Routine 12/16/2019 2:26 Re sults for this PM DECORATIVE ENGRAVER procedure are i n the results section. MAGNESIUM STAT 12/16/2019 2:18 Results for this PM [employer]ORATIVE ENGRAVER procedure are i n the results section. CBC (HEMOGRAM ONLY) STAT 12/16/2019 2:18 Resu lts for this PM [employer]ORATIVE ENGRAVER procedure are i n the results section. PROTHROMBIN TIME/INR Routine 12/16/2019 2:18 Res ults for this PM [employer]ORATIVE ENGRAVER procedure are i n the results section. CALCIUM, IONIZED STAT 12/16/2019 2:16 Results for this PM DECORATIVE ENGRAVER procedure are i n the results section. PREPARE LEUKO-REDUCED Routine 12/16/2019 2:01 Re sults for this RBC PM DECORATIVE ENGRAVER procedure are i n the results section. HGB/HCT (H&H) - STAT STAT 12/16/2019 12:25 Res ults for this LAB PM [employer]ATIVE ENGRAVER procedure are i n the results section. GLUCOSE-STAT LAB STAT 12/16/2019 12:25 Results for this PM DECORATIVE ENGRAVER procedure are i n the results section. POTASSIUM-STAT LAB STAT 12/16/2019 12:25 Resul ts for this PM [employer]ORATIVE ENGRAVER procedure are i n the results section. SODIUM NA-STAT LAB STAT 12/16/2019 12:25 Resul ts for this PM DECORATIVE ENGRAVER procedure are i n the results section. BLOOD GAS, ARTERIAL STAT 12/16/2019 12:25 Resu lts for this PM DECORATIVE ENGRAVER procedure are i n the results section. RRL CRITICAL LABS STAT 12/16/2019 12:25 Result s for this (ABG,NA,K,H&H,GLUCOSE) PM DECORATIVE ENGRAVER proce dure are in the results section. SURGICALLY OBTAINED OLGA 12/16/2019 12:21 Resu lts for this CULTURE + GRAM STAIN PM DECORATIVE ENGRAVER procedu re are in the results section. FUNGUS CULTURE + OLGA 12/16/2019 12:21 Results for this SMEAR PM DECORATIVE ENGRAVER procedure are i n the results section. ANAEROBIC CULTURE OLGA 12/16/2019 12:21 Result s for this PM DECORATIVE ENGRAVER procedure are i n the results section. AFB CULTURE + SMEAR OLGA 12/16/2019 12:21 Resu lts for this (NON-SPUTUM) PM DECORATIVE ENGRAVER procedure are i n the results section. HGB/HCT (H&H) - STAT STAT 12/16/2019 10:46 Res ults for this LAB AM [employer]ORATIVE ENGRAVER procedure are i n the results section. GLUCOSE-STAT LAB STAT 12/16/2019 10:46 Results for this AM DECORATIVE ENGRAVER procedure are i n the results section. POTASSIUM-STAT LAB STAT 12/16/2019 10:46 Resul ts for this AM DECORATIVE ENGRAVER procedure are i n the results section. SODIUM NA-STAT LAB STAT 12/16/2019 10:46 Resul ts for this AM DECORATIVE ENGRAVER procedure are i n the results section. BLOOD GAS, ARTERIAL STAT 12/16/2019 10:46 Resu lts for this AM DECORATIVE ENGRAVER procedure are i n the results section. PROTHROMBIN TIME/INR STAT 12/16/2019 10:46 Res ults for this AM DECORATIVE ENGRAVER procedure are i n the results section. CALCIUM, IONIZED STAT 12/16/2019 10:46 Results for this AM DECORATIVE ENGRAVER procedure are i n the results section. RRL CRITICAL LABS STAT 12/16/2019 10:46 Result s for this (ABG,NA,K,H&H,GLUCOSE) AM DECORATIVE ENGRAVER proce dure are in the results section. PROTHROMBIN TIME/INR STAT 12/16/2019 7:40 Res ults for this AM DECORATIVE ENGRAVER procedure are i n the results section. RUPERTO 12/16/2019 7:30 Illness AM DECORATIVE ENGRAVER LASER EXTRACTION,LEAD 12/16/2019 7:30 Illness AM DECORATIVE ENGRAVER MAGNESIUM Routine 12/16/2019 5:44 Results for this AM DECORATIVE ENGRAVER procedure are i n the results section. HEPATIC FUNCTION PANEL Routine 12/16/2019 5:44 R esults for this AM DECORATIVE ENGRAVER procedure are i n the results section. BASIC METABOLIC PANEL Routine 12/16/2019 5:44 Re sults for this (7) AM DEC[employer]ATIVE ENGRAVER procedure are i n the results section. POCT-GLUCOSE METER Routine 12/15/2019 9:24 Resul ts for this PM DECORATIVE ENGRAVER procedure are i n the results section. ECHOCARDIOGRAM REPORT 12/15/2019 9:23 - SCAN PM DECORATIVE ENGRAVER BLOOD GAS, ARTERIAL Routine 12/15/2019 5:12 Resu lts for this PM DECORATIVE ENGRAVER procedure are i n the results section. URINE CULTURE Routine 12/15/2019 5:10 Results fo r this PM DECORATIVE ENGRAVER procedure are i n the results section. ABORH, MANUAL STAT 12/15/2019 5:09 Results fo r this PM DECORATIVE ENGRAVER procedure are i n the results section. POCT-GLUCOSE METER Routine 12/15/2019 5:06 Resul ts for this PM DECORATIVE ENGRAVER procedure are i n the results section. EEG AWAKE AND DROWSY Routine 12/15/2019 4:24 Res ults for this PM DECORATIVE ENGRAVER procedure are i n the results section. 2D ECHO W/ DOPPLER STAT 12/15/2019 2:23 Resul ts for this (CW/PW/COLOR) PM DECORATIVE ENGRAVER procedure are in the results section. POCT-GLUCOSE METER Routine 12/15/2019 2:15 Resul ts for this PM DECORATIVE ENGRAVER procedure are i n the results section. TYPE AND SCREEN, Routine 12/15/2019 2:10 Results for this AUTOMATED PM DECORATIVE ENGRAVER procedure are i n the results section. BLOOD CULTURE Routine 12/15/2019 2:10 Results fo r this IDENTIFICATION PANEL PM DECORATIVE ENGRAVER procedu re are in the results section. BLOOD CULTURE Routine 12/15/2019 2:10 Results fo r this PM DECORATIVE ENGRAVER procedure are i n the results section. BLOOD CULTURE Routine 12/15/2019 2:10 Results fo r this PM DECORATIVE ENGRAVER procedure are i n the results section. ECG 12-LEAD Routine 12/15/2019 1:08 PM DECORATIVE ENGRAVER Procedure Note - Interface, External Ris In - 12/15/2019 1:12 PM DECORATIVE ENGRAVER Ventricular Rate 98 BPM Atrial Rate 98 BPM QRS Duration 166 ms Q-T Interval 482 ms QTC Calculation(Bazett) 615 ms P [place] 62 degrees R [place] 19 degrees T [place] 45 degrees Ventricular-paced rhythm Biventricular pacemaker dete cted Abnormal ECG No previous ECGs available ECG 12-LEAD OLGA 12/15/2019 1:08 PM DECORATIVE ENGRAVER Resu lts for this procedure are i n the results section . POCT-GLUCOSE METER Routine 12/15/2019 7:41 AM DECORATIVE ENGRAVER Results for this procedure are i n the results section . CBC W/PLT COUNT & AUTO Routine 12/15/2019 2:47 AM DECORATIVE ENGRAVER Results for this DIFFERENTIAL procedure are i n the results section . LIPID PANEL Routine 12/15/2019 2:47 AM DECORATIVE ENGRAVER Resu lts for this procedure are i n the results section . CBC W/PLT COUNT & AUTO Routine 12/15/2019 2:47 AM DECORATIVE ENGRAVER Results for this DIFFERENTIAL procedure are i n the results section . PROTHROMBIN TIME/INR Routine 12/15/2019 2:47 AM DECORATIVE ENGRAVER Results for this procedure are i n the results section . HEPATIC FUNCTION PANEL Routine 12/15/2019 2:47 AM DECORATIVE ENGRAVER Results for this procedure are i n the results section . BASIC METABOLIC PANEL (7) Routine 12/15/2019 2:47 AM DECORATIVE ENGRAVER Results for this procedure are i n the results section . after 03/08/2019 Results ARRYTHMIA IMPLANT REPORT - SCAN (02/01/2020 10:41 AM CDT)Only the most recent of 3 resultswithin the time period is included. Narrative Performed At This result has an attachment that is no t available. CARDIAC CATH REPORT - SCAN (01/31/2020 8:40 AM CDT) Narrative Performed At This result has an attachment that is no t available. RHYTHM STRIP - SCAN (01/31/2020 8:40 AM CDT)Only the most recent of2 results within the time period is included. Narrative Performed At This result has an attachment that is no t available. POC-Glucose meter (01/27/2020 5:58 PM CDT)Only the most recent of76 results within the time period is included. POC-Glucose Meter 112 (H)Comment: : TESTED 70 - 110 mg/dL [facility] [address] [place] [address] [facility], [id number]: Tire Builder Operator/Assistant Credit Manager ID = [id number] for LISBET WATTERS Specimen Blood Performing Organization Address City/State/Zipcode Phone Number [address] [phone] CENTER CBC (hemogram only) (01/27/2020 4:57 AM CDT)Only the most recent of10 results within the time period is included. WBC 4.4 3.5 - 10.5 K/L [facility] RBC 3.04 (L) 4.63 - 6.08 M/L [facility] Hemoglobin 8.2 (L) 13.7 - 17.5 GM/DL [facility] Hematocrit 29.4 (L) 40.1 - 51.0 % [facility] MCV 96.7 (H)Comment: Discordant 79.0 - 92.2 fL [facility] MCV results compared to MEDICAL CENTER previous results; clinical correlation required. MCH 27.0 25.7 - 32.2 pg [facility] MCHC 27.9 (L) 32.3 - 36.5 GM/DL [facility] RDW 16.1 (H) 11.6 - 14.4 % [facility] Platelets 199 150 - 450 K/CU MM [facility] MPV 9.2 (L) 9.4 - 12.4 fL [facility] nRBC 0 0 - 0 /100 WBC [facility] Specimen Blood Performing Organization Address City/[facility]/Zipcode Phone Number [facility] [address] [place] [phone] CENTER Magnesium (01/27/2020 4:57 AM CDT)Only the most recent of28 resultswithin the time period is included. Magnesium 2.1 1.6 - 2.6 mg/dL [facility] Specimen Blood Narrative Performed At Tire Builder Operator ID - LV Ramirez [facility] Performing Organization Address City/[facility]/Zipcode Phone Number [address] [address] [place] Basic Metabolic Panel (01/27/2020 4:57 AM CDT)Only the most recent of24 results within the time period is included. Sodium 148 (H) 136 - 145 meq/L [facility] Potassium 3.6 3.5 - 5.1 meq/L [facility] Chloride 119 (H) 98 - 107 meq/L [facility] CO2 24 22 - 29 meq/L [facility] BUN 23 (H) 7 - 21 mg/dL [facility] Creatinine 0.78 0.57 - 1.25 mg/dL [facility] Glucose 123 (H) 70 - 105 mg/dL [facility] Calcium 9.0 8.4 - 10.2 mg/dL [facility] EGFR 97Comment: ESTIMATED GFR IS mL/min/1.73 sq m [facility] NOT ACCURATE CREATININE [facility] CLEARANCE IN PREDICTING GLOMERULAR FILTRATION RATE. ESTIMATED GFR IS NOT APPLICABLE FOR DIALYSIS PATIENTS. Specimen Blood Narrative Performed At Tire Builder Operator ID - LV L [facility] Performing Organization Address City/[facility]/Zipcode Phone Number [address] [address] [place] REPORT OF PROCEDURE - ENDOSCOPY URL (01/26/2020 2:33 PM CDT) Narrative Performed At This result has an attachment that is no t available. ECHOCARDIOGRAM REPORT - SCAN (01/25/2020 9:10 PM CDT) Narrative Performed At This result has an attachment that is no t available. Troponin I (01/25/2020 5:56 PM CDT)Only the most recent of3 resultswithin the time period is included. Troponin I <0.01 0.00 - 0.03 ng/mL [facility] Specimen Blood Narrative Performed At Troponin I (TnI) levels must be interpreted [facility] in the context of the presenting symptoms and the clinical findings. Elevated TnI levels indicate myocardial damage, but are not specific for ischemic heart disease. Elevated TnI levels are seen in patients with other cardiac conditions (including myocarditis and congestive heart failure), and slight TnI elevations occur in patients with other conditions, including sepsis, renal failure, acidosis, acute neurological disease, and persistent tachyarrhythmia. Tire Builder Operator ID - DB Performing Organization Address City/State/Zipcode Phone Number [facility] [address] [place] [address] [place] CBC with platelet count + automated diff (01/25/2020 5:26 AM CDT)Only the most recent of18 resultswithin the time period is included. WBC 5.3 3.5 - 10.5 K/L [facility] H [facility] RBC 3.23 (L) 4.63 - 6.08 M/L [facility] Hemoglobin 8.8 (L) 13.7 - 17.5 GM/DL [facility] Hematocrit 31.8 (L) 40.1 - 51.0 % [facility] MCV 98.5 (H) 79.0 - 92.2 fL [facility] MCH 27.2 25.7 - 32.2 pg [facility] MCHC 27.7 (L) 32.3 - 36.5 GM/DL [facility] RDW 16.7 (H) 11.6 - 14.4 % [facility] Platelets 251 150 - 450 K/CU MM [facility] MPV 9.7 9.4 - 12.4 fL [facility] nRBC 0 0 - 0 /100 WBC [facility] % Neutros 71 % [facility] % Lymphs 16 % [facility] % Monos 9 % [facility] % Eos 2 % [facility] % Baso 1 % [facility] # Neutros 3.76 1.78 - 5.38 K/L [facility] # Lymphs 0.85 (L) 1.32 - 3.57 K/L [facility] # Monos 0.49 0.30 - 0.82 K/L [facility] # Eos 0.11 0.04 - 0.54 K/L [facility] # Baso 0.04 0.01 - 0.08 K/L [facility] Immature Granulocytes-Relative 2 (H) 0 - 1 % C HI [facility] Specimen Blood Performing Organization Address City/[facility] Phone Number [facility] [address] [place] [address] CENTER Creatine Kinase (CK) (01/25/2020 5:26 AM CDT)Only the most recent of5 results within the time period is included. Total CK 30 29 - 200 U/L [facility] Specimen Blood Narrative Performed At T[employer] Operator ELLY - ADAMARIS York [facility]ENTER Performing Organization Address City/[facility]/Zipcode Phone Number [facility] [address] [place] [phone] CENTER XR chest 1 view portable / bedside (01/25/2020 12:23 AM CDT)Only the most recent of16 resultswithin the time period is included. Specimen Narrative Performed At FINAL REPORT [facility] Chest one view. Clinical history: r/o ptx Comparison: Chest radiograph 01/24/2020. Technique: A single frontal view of the chest was obtained. Findings: There is a right-sided AICD with leads u nchanged. There is a feeding tube which projects below the diaphragm. The cardiomediastinal contours are stabl e. There is a moderate left pleural effusion, not significantly verma ged. There are ill-defined peripheral airspace and interstitial opa cities in the right hemithorax. There is no pneumothorax. Signed: Nilton Butterfield MD Report Verified Date/Time:01/25/2020 01:06:33 Procedure Note Interface, External Ris In - 01/25/2020 1:08 AM CDT FINAL REPORT Chest one view. Clinical history: r/o ptx Comparison: Chest radiograph 01/24/2020. Technique: A single frontal view of the chest was obtained. Findings: There is a right-sided AICD with leads u nchanged. There is a feeding tube which projects below the diaphragm. The cardiomediastinal contours are stabl e. There is a moderate left pleural effusion, not significantly verma ged. There are ill-defined peripheral airspace and interstitial opa cities in the right hemithorax. There is no pneumothorax. Signed: Nilton Butterfield MD Report Verified Date/Time: 01/25/2020 0 1:06:33 Performing Organization Address City/State/Zipcode Phone Number RIS Glucose (01/25/2020 12:12 AM CDT) Glucose 139 (H) 70 - 105 mg/dL [facility] Specimen Blood Narrative Performed At Tire Builder Operator ID - [id number] [facility] Performing Organization Address City/State/Zipcode Phone Number [facility] [address] [place] [address] CENTER EKG 12 lead (01/24/2020 10:42 PM CDT)Only the most recent of4 resultswithin the time period is included. Specimen Narrative Performed At Ventricular Rate 77 BPM GE MUSE Atrial Rate 77 BPM P-R Interval 172 ms QRS Duration 164 ms Q-T Interval 446 ms QTC Calculation(Bazett) 504 ms P [place] 5 degrees R [place] 249 degrees T [place] 67 degrees Atrial-sensed ventricular-paced rhythm with occasional Premature ventricular complexes Abnormal ECG Confirmed by MD Stockton Roberto ([id number]) on 2019 3:29:51 PM Procedure Note Interface, External Ris In - 01/27/2020 3:29 PM CDT Ventricular Rate 77 BPM Atrial Rate 77 BPM P-R Interval 172 ms QRS Duration 164 ms Q-T Interval 446 ms QTC Calculation(Bazett) 504 ms P [place] 5 degrees R [place] 249 degrees T [place] 67 degrees Atrial-sensed ventricular-paced rhythm w ith occasional Premature ventricular complexes Abnormal ECG Confirmed by MD Stockton Roberto ([id number]) on 01/27/2020 3:29:51 PM Performing Organization Address City/State/Zipcode Phone Number [employer] 2D Echocardiogram (01/24/2020 7:00 PM CDT) Ejection Fraction [facility] ECHO HEAR TLAB [facility] Specimen Narrative Performed At Transthoracic Echocardiography Report (T TE) [facility] ECHO HEARTLAB [facility] [facility] Demographics Patient Name Renny CHAMBERLAIN of Study 01/24/2020 [id number] Gender Male Visit Number [id number] RaceCauc [id number] Room Number [id number] Number Date of Birth1945 Referring Physician Age74 year(s) Anaesthesiologist Kristina blank Physician Fellow DEEP Rooney Procedure Type of Study TTE procedure:LIMITED 2D ECHOCARDIOGRAM (STAT) Indications:Pericardial effusion. Clinical History HGB 8.9 HCT 30.6 % ARRTHYMIA CHF DM HTN PACEMAKER Contrast Medium: New Item. Height: 76 inches Weight: 105.69 kg (233 lbs) BSA: 2.36 m^2 BMI: 28.36 kg/m^2 HR: 87 bpm BP: 124/64 mmHg Summary A trivial circumferential pericardial effusion is present . It is difficult to accurately assess LV wall motion with available views, but global systolic function is mild to moderately reduced. Left pleural effusion appears [id number] in size. Signature Findings Left Ventricle Mild concentric LV hypertrophy. It is difficult to accurately assess LV wal l motion wi th available views, but global systolic function is mild to moderately reduced. A pacemaker wire is visualized in the LV. Left AtriumLA size is mildly enlarged . Right VentricleThe right ventricular chamber size and systolic fu nction are within normal limits. A pacemaker wire is visualized in the righ t ve ntricle. Right Atrium RA size is moderately dilated. Pa cemaker wire is visualized in RA cavity. Aortic Valve Mild AoV cusp thickening. Mitral Valve Mild MV leaflet thickening. Tricuspid ValveA trace of tricuspid regurgitation. Es timated peak systolic PA pressure is can not be de termined due to inadequate TR velocity s ignal . PericardiumA trivial circumferential pericardial effusion is pr esent . IVC/SVC/PA/PV/PleuralThe estimated RA pressure by IVC dynamics 11-15mmHg . Le ft pleural effusion appears moderate-to- large in si ze. Procedure Note Interface, External Ris In - 01/25/2020 9:10 AM CDT Transthoracic Echocardiography Report (TTE) Demographics Patient Name RENE CHAMBERLAIN e of Study 01/24/2020 Gen micky Male Visit Number [id number] Rac e Ariana m Number [id number] Number Date of 1945 Ref erring Physician Age 74 year(s) Son rojelio Wilkinson Int erpreting Evie Escudero MD Fellow DEEP Dukes Procedure Type of Study TTE procedure:LIMITED 2D ECHO CARDIOGRAM (STAT) Indications:Pericardial effusion. Clinical History HGB 8.9 HCT 30.6 % ARRTHYMIA CHF DM HTN PACEMAKER Contrast Medium: New Item. Height: 76 inches Weight: 105.69 kg (233 lbs) BSA: 2.36 m^2 BMI: 28.36 kg/m^2 HR: 87 bpm BP: 124/64 mmHg Summary A trivial circumferential pericardial e ffusion is present . It is difficult to accurately assess LV wall motion with available views, but global systolic function is mild to moderately reduced. Left pleural effusion appears moderate- to-large in size. Signature Findings Left Ventricle Mild concentric LV hypertrophy. It is difficult to accurately assess LV wall motion with available v iews, but global systolic function is mild to moder ately reduced. A pacemaker wire is visualized in the LV. Left Atrium LA size is mildl y enlarged . Right Ventricle The right ventri cular chamber size and systolic function are wit hin normal limits. A pacemaker wire is visualized in the right ventricle. Right Atrium RA size is moder ately dilated. Pacemaker wire i s visualized in RA cavity. Aortic Valve Mild AoV cusp th ickening. Mitral Valve Mild MV leaflet thickening. Tricuspid Valve A trace of tricu spid regurgitation. Estimated peak s ystolic PA pressure is cannot be determined due t o inadequate TR velocity signal . Pericardium A trivial circum ferential pericardial effusion is present . IVC/SVC/PA/PV/Pleural The estimated RA pressure by IVC dynamics 11-15mmHg . Left pleural eff usion appears oswiinth-rq-[id number] in size. Performing Organization Address City/State/Zipcode Phone Number [facility] CP[facility] PT/aPTT (01/20/2020 4:49 AM CDT)Only the most recent of6 resultswithin the time period is included. Protime 15.9 (H) 11.9 - 14.2 seconds [facility] INR 1.3 <=5.9 [facility] PTT 33.6 22.5 - 36.0 seconds [facility] Specimen Blood Narrative Performed At [facility] 03/24/2019: PT Reference Range [facility] Change New: 11.9-14.2Previous: 11.7-14.7 RECOMMENDED COUMADIN/WARFARIN INR THERAPY RANGES STANDARD DOSE: 2.0-3.0Includes: PROPHYLAXIS for venous thrombosis, systemic embolization; TREATMENT for venous thrombosis and/or pulmonary embolus. HIGH RISK: Target INR is 2.5-3.5 for patients wiht mechanical heart valves. Performing Organization Address City/State/Zipcode Phone Number [address] [address] CENTER Hepatic function panel (01/20/2020 4:49 AM CDT)Only the most recent of6 results within the time period is included. Protein, Total 6.1 6.0 - 8.3 gm/dL [facility] Albumin 2.3 (L) 3.5 - 5.0 g/dL [facility] Total Bilirubin 0.4 0.2 - 1.2 mg/dL [facility] Bilirubin, Direct 0.3 0.1 - 0.5 mg/dL [facility] Alkaline Phosphatase 93 40 - 150 U/L [facility] AST 21 5 - 34 U/L [facility] ALT 23 6 - 55 U/L [facility] Specimen Blood Narrative Performed At Tire Builder Operator ID - ADAMARIS York [facility] Performing Organization Address City/State/Zipcode Phone Number [facility] [address] [place] [address] CENTER aPTT (01/19/2020 12:22 PM CDT)Only the most recent of37 resultswithin the time period is included. PTT 53.1 (H) 22.5 - 36.0 seconds [facility] Specimen Blood Performing Organization Address City/[facility]/Zipcode Phone Number [facility] [address] [place] [address] chest without IV contrast (01/19/2020 10:53 AM CDT)Only the most recent of2 resultswithin the time period is included. Specimen Narrative Performed At FINAL REPORT [facility] CT Chest without contrast History: Pleural effusion Comparison: 12/17/2019 Technique: serial axial imaging was perf ormed without intravenous contrast as per departmental protocol. Multiplanar images are reconstructed and reviewed when indicate d. This CT examination is performed using o ne or more of the following dose reduction techniques: Automated exposure control, adjustment o f the mA and /or kV according to patient size, and/or use of iterative reconstruction technique. Findings: No mediastinal lymphadenopathy.Calci fied mediastinal and right hilar lymph nodes are consistent with pr evious granulomatous disease. No definite hilar enlargement. Mild cardiomegaly. Cardiac pacer in plac e. No pericardial effusion. No thoracic aortic aneurysm.Normal caliber of main pulmonary trunk. Patent central airways.Moderate left and small right pleural effusions are noted.Assessment of th e pulmonary parenchyma is significantly limited by patient motion. Patchy nonspecific groundglass densities are noted, with cesar th central and peripheral involvement. Nasogastric tube terminates within the s tomach. A calcified granulomata within the liver and spleen are consistent with previous granulomatous disease. There is a small stable seroma within th e left anterior chest wall. No aggressive osseous lesion. Impression: 1. Moderate left and small right pleural effusions. 2. Mild cardiomegaly. 3. Patchy bilateral pulmonary groundglas s densities, nonspecific. This most likely represents pulmonary ed mary. Signed: Matthew George MD Report Verified Date/Time:01/19/2020 12:17:48 Reading Location: [facility] Mammo Reading Ro om Procedure Note Interface, External Ris In - 01/19/2020 12:20 PM CDT FINAL REPORT CT Chest without contrast History: Pleural effusion Comparison: 12/17/2019 Technique: serial axial imaging was perf ormed without intravenous contrast as per departmental protocol. Multiplanar images are reconstructed and reviewed when indicate d. This CT examination is performed using o ne or more of the following dose reduction techniques: Automated exposure control, adjustment o f the mA and /or kV according to patient size, and/or use of iterative reconstruction technique. Findings: No mediastinal lymphadenopathy. Calcifi ed mediastinal and right hilar lymph nodes are consistent with pr evious granulomatous disease. No definite hilar enlargement. Mild cardiomegaly. Cardiac pacer in plac e. No pericardial effusion. No thoracic aortic aneurysm. Normal yoana iber of main pulmonary trunk. Patent central airways. Moderate left a nd small right pleural effusions are noted. Assessment of the pulmonary parenchyma is significantly limited by patient motion. Patchy nonspecific groundglass densities are noted, with cesar th central and peripheral involvement. Nasogastric tube terminates within the s tomach. A calcified granulomata within the liver and spleen are consistent with previous granulomatous disease. There is a small stable seroma within th e left anterior chest wall. No aggressive osseous lesion. Impression: 1. Moderate left and small right pleural effusions. 2. Mild cardiomegaly. 3. Patchy bilateral pulmonary groundglas s densities, nonspecific. This most likely represents pulmonary ed mary. Signed: Matthew George MD Report Verified Date/Time: 01/19/2020 1 2:17:48 Reading Location: [facility] Mammo Reading Ro om Performing Organization Address City/State/Zipcode Phone Number RIS C-Reactive Protein (01/19/2020 4:59 AM CDT) CRP 9.08 (H) 0.00 - 0.50 mg/dL [facility] CENTER Specimen Blood Narrative Performed At Tire Builder Operator ID - ADAMARIS York [facility] ICAL CENTER Performing Organization Address City/State/Zipcode Phone Number [facility] [address] [place] [address] CENTER US thoracentesis (01/18/2020 4:56 PM CDT)Only the most recent of2 resultswithin the time period is included. Specimen Narrative Performed At FINAL REPORT [facility] Exam:Ultrasound guided thoracentesis Clinical History:Left-sided Pleural Effusion Contact Center Assistant: Cassidy Parra PA-C Supervising Physician: Jaylen Newton Consent:Benefits and risks were expl ained to the patient who gave consent to the procedure. Complication:None Immediate Procedure:The patient was placed in right lateral decubitus position. The left posterior chest was p repped and draped in usual sterile fashion. 2% lidocaine was used a s local anesthetic. Under ultrasound guidance, a thoracentesis cat heter was inserted into the pleural cavity. Approximately 850 cc of serosanguineous pleural fluid was aspirated. The catheter was removed. The specimen was sent to the laboratory for further analysis. The pat ient tolerated the procedure well without any adverse reaction. A STA T chest x-ray was ordered. The patient left the department in stabl e condition. Impression:Ultrasound guided left-si ded thoracentesis. Signed: Marvin Thompson MD Report Verified Date/Time:01/19/2020 12:40:39 Reading Location: [facility] [id number] [facility] Reading Room Procedure Note Interface, External Ris In - 01/19/2020 12:42 PM CDT FINAL REPORT Exam: Ultrasound guided thoracentesis Clinical History: Left-sided Pleural Ef fusion Contact Center Assistant: Cassidy Parra PA-C Supervising Physician: Jaylen Newton Consent: Benefits and risks were explai dacia to the patient who gave consent to the procedure. Complication: None Immediate Procedure: The patient was placed in [facility] lateral decubitus position. The left posterior chest was p repped and draped in usual sterile fashion. 2% lidocaine was used a s local anesthetic. Under ultrasound guidance, a thoracentesis cat heter was inserted into the pleural cavity. Approximately 850 cc of serosanguineous pleural fluid was aspirated. The catheter was removed. The specimen was sent to the laboratory for further analysis. The pat ient tolerated the procedure well without any adverse reaction. A STA T chest x-ray was ordered. The patient left the department in stabl e condition. Impression: Ultrasound guided left-side d thoracentesis. Signed: Marvin Thompson MD Report Verified Date/Time: 01/19/2020 1 2:40:39 Reading Location: [facility] [id number] [facility] Reading Room Performing Organization Address City/[facility] Phone Number [facility] Blood Culture - Routine (Right Venipuncture) (01/18/2020 4:50 PM CDT)Only the most recent of19 resultswithin the time period is included. Result No growth in 5 days [facility] Specimen Blood Performing Organization Address [facility] Phone Number [address] [address] [place] Body fluid culture + gram stain (01/18/2020 4:21 PM CDT)Only the most recent of 2 resultswithin the time period is included. Result No growth [facility] Gram Stain Result <1+ WBCs [facility] Gram Stain Result No organisms seen [facility] Specimen Body Fluid Performing Organization Address [facility] Phone Number [address] [address] [place] Fungus culture + smear (01/18/2020 4:21 PM CDT)Only the most recent of3 resultswithin the time period is included. Result No fungus isolated in 28 days [facility] Fungus Smear No fungi seen [facility] Specimen Body Fluid Performing Organization Address [facility] Phone Number [facility] MED[facility] [address] [place] [address] CENTER Protein, Total, Pleural Fluid (01/18/2020 4:20 PM CDT) PROTEIN, TOTAL, PLEURAL FLUID 3.5 [facility] Specimen Body Fluid Performing Organization Address [facility] Phone Number [facility] [place] [address] [facility] [id number] Lactate Dehydrogenase (LD), Pleural Fluid (01/18/2020 4:20 PM CDT) Lactate Dehydrogenase 134 See Note: U/L [facility] (LD), Pleural Fluid Comment: [facility] Reference Range: TRANSUDATE:<113 EXUDATE: >113 Specimen Body Fluid Narrative Performed At Performing Lab [facility] EZ [facility] [employer] [address] [place] [address] Winter Encinas MD, PhD, SUZETTE Performing Organization Address [facility] Phone Number [facility] [place] [place] [address] [facility] [id number] [address] Glucose Pleural Fluid (01/18/2020 4:20 PM CDT)Only the most recent of2 results within the time period is included. Glucose, Pleural Fluid 99 mg/dL [facility] Comment: [facility]PORATED Reference range approximates that found in serum . Specimen Body Fluid Narrative Performed At Performing Lab [facility] E[facility] [employer] [address] [place] [address] Winter Encinas MD, PhD, SUZETTE Performing Organization Address [facility] Number [facility] [employer] [place] [address] [facility] [id number] [address] Body fluid cell count with differential (01/18/2020 4:20 PM CDT)Only the most recent of2 resultswithin the time period is included. Appearance Slightly Cloudy (A) Clear [facility] Color Anitha (A) Colorless, Straw [facility] RBCs 29,000 (H) <=1 /cu mm [facility] Adjusted WBC Count 901 (H) <=5 /cu mm [facility] Lining Cells 9 (H) <=1 /cu mm [facility] % Segs 55 % [facility] % Lymphs 27 % [facility] % Monos 18 % [facility] % Eos 0 % [facility] % Baso 0 % [facility] Container Body Fluid EDTA Tube [facility] Specimen Body Fluid Performing Organization Address City/State/Zipcode Phone Number [facility] [address] [place] [address] CENTER Cytology (01/18/2020 4:20 PM CDT) Case Report Medical Cytology Report Case: [id number] [facility] Authorizing Provider:Sara Farfan MD Collected: 01/18/2020 04:20 PM [facility] [address]ing [address]: [address]:01/19/2020 09:12 AM Pathologist: Samra Coley MD Specimen:Pleural, Left DIAGNOSIS PLEURAL, LEFT, FLUID (CYTOSPINS): [facility] - NEGATIVE FOR MALIGNANCY [facility] - INCREASED NEUTROPHILS PRESENT Signing Pathologist Direct Phone Line: CPT Code(s) 8[address]81 [facility] ER CLINICAL DATA Left pleural effusion; [facility] admitted on 01/17/2020 w/ [facility] history of HTN, HLD, CAD, obesity, SSS (pacemaker dependent), chronic HFrEF s/p Bi-V ICD (upgrade 2015) who presents from [facility] after aspiration event and for replacement of his pacemaker SPECIMEN SOURCE LEFT PLEURAL FLUID [facility] ER GROSS DESCRIPTION Received 800 ml brown fluid [facility] Prepared 4 cytospins [facility] Collected: [id number] Received: [id number] STATEMENT OF ADEQUACY Satisfactory [facility] ER Gross assessment was [facility] performed at [place], Department of [facility] Pathology, [address] [place] [address], Technical component was [facility] performed at [place], Department of [facility] Pathology, [address] [place] [address], Professional component was [facility] performed at [place], Department of [facility] Pathology, [address] [place] [address], Specimen Body Fluid Performing Organization Address City/[facility] Phone Number [address] [address] [place] Lactate dehydrogenase (LDH) (01/18/2020 4:10 AM CDT) LDH 145 125 - 220 U/L [facility] Specimen Blood Narrative Performed At Tire Builder Operator ID - ADAMARIS M [facility] Performing Organization Address City/[facility] Phone Number [address] [address] [place] Platelet count (01/17/2020 9:22 PM CDT) Platelets 168 150 - 450 K/CU MM [facility] Specimen Blood Narrative Performed At Tire Builder Operator ID - [id number] [facility] Performing Organization Address City/[facility] Phone Number [address] [address] [place] Calcium, Ionized (12/30/2019 4:06 AM DECORATIVE ENGRAVER)Only the most recent of6 resultswithin the time period is included. Calcium, Ion 1.24 1.12 - 1.27 mmol/L [facility] pH, Blood 7.53 [facility] Specimen Blood Performing Organization Address City/State/Zipcode Phone Number [facility] [address] [place] [address] CENTER Phosphorus (12/30/2019 4:06 AM DECORATIVE ENGRAVER)Only the most recent of5 resultswithin the time period is included. Phosphorus 2.9 2.3 - 4.7 mg/dL [facility] Specimen Blood Narrative Performed At Tire Builder Operator ID - TRAN Hutchison [facility] Performing Organization Address City/State/Zipcode Phone Number [facility] [address] [place] [address] [place] Comprehensive metabolic panel (12/30/2019 4:06 AM DECORATIVE ENGRAVER)Only the most recent of5 resultswithin the time period is included. Protein, Total 6.1 6.0 - 8.3 gm/dL [facility] Albumin 2.0 (L) 3.5 - 5.0 g/dL [facility] Alkaline Phosphatase 95 40 - 150 U/L [facility] ER Total Bilirubin 0.5 0.2 - 1.2 mg/dL [facility] Sodium 151 (H) 136 - 145 meq/L [facility] Potassium 3.6 3.5 - 5.1 meq/L [facility] Chloride 113 (H) 98 - 107 meq/L [facility] CO2 30 (H) 22 - 29 meq/L [facility] BUN 55 (H) 7 - 21 mg/dL [facility] Creatinine 1.40 (H) 0.57 - 1.25 mg/dL [facility] Glucose 151 (H) 70 - 105 mg/dL [facility] Calcium 9.4 8.4 - 10.2 mg/dL [facility] ER AST 38 (H) 5 - 34 U/L [facility] ER ALT 30 6 - 55 U/L [facility] ER EGFR 49Comment: ESTIMATED GFR mL/min/1.73 sq m [facility] IS NOT ACCURATE [facility] CREATININE CLEARANCE IN PREDICTING GLOMERULAR FILTRATION RATE. ESTIMATED GFR IS NOT APPLICABLE FOR DIALYSIS PATIENTS. Specimen Blood Narrative Performed At Tire Builder Operator ID - TRAN W [facility] Performing Organization Address City/[facility]/Zipcode Phone Number [address] [address] [place] Potassium (12/29/2019 9:54 PM DECORATIVE ENGRAVER)Only the most recent of10 resultswithin the time period is included. Potassium 3.5Comment: Specimen slightly 3.5 - 5.1 meq/L [facility] hemolyzed [facility] Specimen Blood Narrative Performed At Tire Builder Operator ID - LV L [facility] Performing Organization Address City/[facility]/Zipcode Phone Number [address] [address] [place] B-type Natriuretic Factor (BNP) (12/29/2019 4:21 AM DECORATIVE ENGRAVER)Only the most recent of 2 resultswithin the time period is included. BNP 562 (H) 0 - 100 pg/mL [facility] Specimen Blood Narrative Performed At Tire Builder Operator ID - TRAN W [facility] Performing Organization Address City/[facility]/Zipcode Phone Number [address] [address] [place] TRANSFUSION SERVICE REPORT - SCAN (12/28/2019 6:13 PM DECORATIVE ENGRAVER)Only the most recent of6 resultswithin the time period is included. Narrative Performed At This result has an attachment that is no t available. Blood gas, arterial (12/28/2019 4:35 AM DECORATIVE ENGRAVER)Only the most recent of17 results within the time period is included. pH, Arterial 7.54 (H) 7.35 - 7.45 [facility] pCO2, Arterial 36 35 - 45 mmHg [facility] pO2, Arterial 159 (H) 80 - 90 mmHg [facility] O2 Sat, Arterial 99.2 (H) 96.0 - 97.0 % [facility] HCO3, Arterial 30 (H) 21 - 29 mmol/L [facility] Base Excess, Arterial 7.0 (H) -2.0 - 3.0 mmol/L [facility] Patient Temperature 37.0 C [facility] FIO2 40.0 % [facility] Specimen Blood, Arterial Performing Organization Address [facility] Phone [place] [address] CENTER Prepare Leuko-Red RBC (12/27/2019 11:54 PM DECORATIVE ENGRAVER)Only the most recent of4 results within the time period is included. CROSSMATCH COMPATIBLE SAFETRACE TX Unit ABO O Pos SAFETRACE TX UNIT NUMBER [id number] SAFETRACE TX Status TX_TIMEINCHART SAFETRACE TX Blood Bank Product RED BLOOD CELLS SAFETRACE TX PRODUCT CODE [id number] [place]ACE [place] Specimen Other Performing Organization Address [facility] Phone Number SAFETRACE TX Hemoglobin and hematocrit (12/27/2019 4:21 AM DECORATIVE ENGRAVER)Only the most recent of6 resultswithin the time period is included. Hemoglobin 7.6 (L) 13.7 - 17.5 GM/DL [facility] Hematocrit 24.1 (L) 40.1 - 51.0 % [facility] Specimen Blood Narrative Performed At Tire Builder Operator ID - [id number] [facility] Performing Organization Address City/[facility] Phone Number [address] [address] CENTER Transfuse Leuko-Red RBC (12/26/2019 1:49 PM DECORATIVE ENGRAVER)Only the most recent of4 resultswithin the time period is included.Type and screen, automated (12/26/2019 9:03 AM DECORATIVE ENGRAVER)Only the most recent of3 resultswithin the time period is included. ABO/RH AUTOMATED (BEAKER) O POSITIVE [facility] Ab Scrn NEGATIVE [facility] Specimen Blood Performing Organization Address [facility] Phone Number [address] [address] Sodium, random urine (12/25/2019 6:10 PM DECORATIVE ENGRAVER) Sodium Urine <20 meq/L [facility] Specimen Urine Narrative Performed At Reference Range: No Normals [facility] Tire Builder Operator ID - KONRAD Performing Organization Address [facility] Phone Number [address] [address] [place] Protein, random urine (12/25/2019 6:10 PM DECORATIVE ENGRAVER) Protein, Urine 22 (H) 0 - 14 mg/dL [facility] Specimen Urine Narrative Performed At Tire Builder Operator ELLY SILVESTRE [facility] Performing Organization Address City/[facility] Phone Number [address] [address] CENTER Creatinine, random urine (12/25/2019 6:10 PM DECORATIVE ENGRAVER) Creatinine, Ur 51.6 mg/dL [facility] Specimen Urine Narrative Performed At Reference Range: No Normals [facility] Tire Builder Operator ID - KONRAD Performing Organization Address [facility]/Zipcode Phone Number [address] [address] CENTER Eosinophil smear (12/25/2019 6:10 PM DECORATIVE ENGRAVER) Eosinophil Smear No EOS seen No EOS seen [facility] Specimen Urine Performing Organization Address City/State/Zipcode Phone Number GLORIA [facility] [address] [place] [address] [place] US renal complete (12/25/2019 6:31 AM DECORATIVE ENGRAVER) Specimen Narrative Performed At FINAL REPORT RIS Comparison: CT of the abdomen and pelvis , 12/17/2019 Discussion: Sonographic evaluation of the kidneys is performed. Exam limited by body habitus and patient's condition. The right kidney measures 13 cm in lengt h, with cortical thickness of 1.4 cm. The left kidney measures 12.5 cm in length, with cortical thickness of 0.2 cm. There is no focal r enal mass, hydronephrosis, or shadowing renal calculus. Both kidneys s ymmetrically mildly increased cortical echogenicity. The known left re nal cyst as well as a nonobstructing bilateral renal stones ar e not well depicted by this ultrasound. Bladder collapsed around a Patel cathete r. IMPRESSION: Mild increased renal cortical echogenici ty may be due to underlying medical renal disease. No hydronephrosis bilaterally. Signed: Alberto Webster MD Report Verified Date/Time:12/25/2019 10:05:41 Reading Location: [address] Reading Room Procedure Note Interface, External Ris In - 12/25/2019 10:07 AM DECORATIVE ENGRAVER FINAL REPORT Comparison: CT of the abdomen and pelvis , 12/17/2019 Discussion: Sonographic evaluation of the kidneys is performed. Exam limited by body habitus and patient's condition. The right kidney measures 13 cm in lengt h, with cortical thickness of 1.4 cm. The left kidney measures 12.5 cm in length, with cortical thickness of 0.2 cm. There is no focal r enal mass, hydronephrosis, or shadowing renal calculus. Both kidneys s ymmetrically mildly increased cortical echogenicity. The known left re nal cyst as well as a nonobstructing bilateral renal stones ar e not well depicted by this ultrasound. Bladder collapsed around a Patel cathete r. IMPRESSION: Mild increased renal cortical echogenici ty may be due to underlying medical renal disease. No hydronephrosis bilaterally. Signed: Alberto Webster MD Report Verified Date/Time: 12/25/2019 1 0:05:41 Reading Location: [address] Reading Room Performing Organization Address City/State/Zipcode Phone Number RIS Complement Component C3 (12/25/2019 4:42 AM DECORATIVE ENGRAVER) C3 Complement 142 82 - 193 mg/dL [facility] Specimen Blood Narrative Performed At Tire Builder Operator [facility] Jaylen [facility] Performing Organization Address City/[facility]/Zipcode Phone Number [address] [address] CENTER Complement Component C4 (12/25/2019 4:42 AM DECORATIVE ENGRAVER) C4 Complement 28 15 - 57 mg/dL [facility] Specimen Blood Narrative Performed At Tire Builder Operator ID - ADAMARIS York [facility] Performing Organization Address City/[facility]code Phone Number [address] [address] CENTER EEG AWAKE AND DROWSY (12/24/2019 3:37 PM DECORATIVE ENGRAVER) Specimen Narrative Performed At [facility] EEG REPORT GE RIS DATE(s) OF TEST: 12/16/2019 DATE OF REPORT: 12/16/2019 ACC: [id number] EMU [id number] Start time/date: 15:16 Stop time/date: 15:37 ICD-10: R56.9 CPT Code: 12581 HISTORY:74 year old man with encepha lopathy, intubated, cooperative.He has an infected pacem eva pocket. MEDICATIONS THAT COULD AFFECT EEG: Margaret culver TECHNICAL SUMMARY: This is a digital video EEG recorded wit h 32 input channels reviewed with bipolar and referential montages us ing the modified combinatorial system nomenclature. Patient was monitored by qualified techn ologists continuously. DESCRIPTION OF RECORD: During the maximally alert state a 6 Hz posterior dominant rhythm was seen that was symmetric, somewhat reacti ve to eye opening and poorly regulated.More anteriorly, low volta ge frontocentral theta predominated. Central mu rhythm was note d at 7 Hz.Drowsiness was characterized by more slowing but stage 2 sleep was no t reached. INTERICTAL EPILEPTIFORM DISCHARGES: None EVENTS/SEIZURES: None HV: Hyperventilation was not done. PHOTIC STIMULATION: Photic stimulation w as done from 1-33 Hz; no photic driving was seen; photoparoxysmal responses were absent. VIDEO EVENTS RECORDED: None ELECTROCARDIOGRAM EVENTS: Irregular Rhyt hm with 2 QRS morphologies IMPRESSION: Abnormal Awake and Drowsy EE G 1.Slowing of the posterior d ominant rhythm 2.Generalized theta slowing. CLINICAL CORRELATION:The slowing is consistent with a mild degree of encephalopathy.A nonepileptiform EEG does not r ule out epilepsy. If the clinical suspicion of epilepsy is high, conside r a repeat EEG. Stanley Jean-Baptiste M.D., FACFAHAD, FAAN, PHONG S Professor of Neurology, [facility] Director, [facility] Comprehensiv e Epilepsy Center Head, Micah [facility] Neurophysiology [facility] Procedure Note Interface, External Ris In - 12/24/2019 5:26 PM DECORATIVE ENGRAVER [facility] EEG REPORT DATE(s) OF TEST: 12/16/2019 DATE OF REPORT: 12/16/2019 ACC: [id number] [facility] [id number] Start time/date: 15:16 Stop time/date: 15:37 ICD-10: R56.9 CPT Code: 34037 HISTORY: 74 year old man with encephalo panda, intubated, cooperative. He has an infected pacemak er pocket. MEDICATIONS THAT COULD AFFECT EEG: Dil audid TECHNICAL SUMMARY: This is a digital video EEG recorded wit h 32 input channels reviewed with bipolar and referential montages us ing the modified combinatorial system nomenclature. Patient was monitored by qualified techn ologists continuously. DESCRIPTION OF RECORD: During the maximally alert state a 6 Hz posterior dominant rhythm was seen that was symmetric, somewhat reacti ve to eye opening and poorly regulated. More anteriorly, low voltage frontocentral theta predominated. Central mu rhythm was note d at 7 Hz. Drowsiness was characterized by more slowing but stage 2 sleep was not reached. INTERICTAL EPILEPTIFORM DISCHARGES: None EVENTS/SEIZURES: None HV: Hyperventilation was not done. PHOTIC STIMULATION: Photic stimulation w as done from 1-33 Hz; no photic driving was seen; photoparoxysmal responses were absent. VIDEO EVENTS RECORDED: None ELECTROCARDIOGRAM EVENTS: Irregular Rhyt hm with 2 QRS morphologies IMPRESSION: Abnormal Awake and Drowsy EE G 1. Slowing of the posterior dominan t rhythm 2. Generalized theta slowing. CLINICAL CORRELATION: The slowing is co nsistent with a mild degree of encephalopathy. A nonepileptiform EE G does not rule out epilepsy. If the clinical suspicion of epilepsy is high, consider a repeat EEG. Stanley Jean-Baptiste M.D., FACFAHAD, DAVIDN, PHONG S Professor of Neurology, [facility] Director, [facility] Epilepsy Center Head, Micah [facility] Neurophysiology Lab Performing Organization Address City/[facility]/Zipcode Phone Number GE RIS Sputum Culture + Gram Stain (12/24/2019 2:05 PM DECORATIVE ENGRAVER) Result See comment [facility] Gram Stain Result 1+ WBCs [facility] Gram Stain Result 0-5 epithelial cells [facility] Gram Stain Result <1+ gram positive cocci in [facility] Gram Stain Result <1+ budding yeast [facility] Gram Stain Result <1+ gram variable coccobacilli [facility] Specimen Sputum Narrative Performed At 1+ Yeast [facility] No Normal respiratory juan present Performing Organization Address City/[facility]/Zipcode Phone Number [facility] [address] [place] [address] CENTER Lactic Acid, Arterial (12/24/2019 3:24 AM DECORATIVE ENGRAVER)Only the most recent of3 results within the time period is included. Lactate, Art 1.9 0.5 - 2.2 mmol/L [facility] Specimen Blood, Arterial Narrative Performed At Tire Builder Operator ID - LV Ramirez [facility] Performing Organization Address City/State/Zipcode Phone Number [facility] [address] [place] [address] CENTER NM PET/CT Whole Body Initial (12/23/2019 6:12 PM DECORATIVE ENGRAVER) Specimen Narrative Performed At FINAL REPORT [employer] PROCEDURE: FDG PET/CT for inflam mation CPT CODE:30492 INDICATION:FDG PET/CT was ob tained localize persistent bacteremia of unknown COMPARISON: None PROTOCOL:11.6 mCi of F-18 fluorodeoxygluco se (FDG) was injected intravenously via NA.Serum glucose w as NA mg/dL prior to injection. Images were begun NA minutes after injec tion and included the vertex of the skull to the feet.Limited low -dose CT images were also obtained for attenuation correction and anatomic correlation of PET scan abnormalities. Radiographic contras t was not administered. A diagnostic CT scan with contrast agents was not performed. FINDINGS: Due to beam hardening the CT scan is of marginal quality. Head and Neck: No abnormal FDG activity within the visualized brain, orbits, paranasal sinuses, pharyngeal so ft tissues, and thyroid gland. No FDG-avid cervical lymph nodes. Chest: There is a focus in the right sup erior anterior mediastinum just deep to the first rib articulation to the sternum. Another focus of increased activity is seen in the med iastinum just anterior to the right bronchus at the ada. There is c onsolidation, atelectasis in the left lower lobe that shows mild incr ease intensity. In the right lower lobe as intense focus is several m illimeters in size and corresponds to the density. Increased in tensity seen in the inferior aspect of the posterior basal segment. Abdomen/Pelvis: No abnormal FDG activity within the liver, gallbladder, spleen, pancreas, kidneys, adrenals, and bowel. No FDG-avid mesenteric or retroperitoneal l ymph nodes. No abnormal FDG activity within the pelvis. No FDG-avid pelvic or inguinal lymph nodes. Nonspecific intestinal activity i s noted. Musculoskeletal: No FDG-avid skeletal le sions. IMPRESSION: Abnormal exam. There are two foci noted in the mediasti num increased activity in the right lower lobe consistent with inflamm atory processes. Nonspecific bowel activity was seen. Foc al inflammation cannot be excluded. Signed: Susan Craig MD Report Verified Date/Time:12/23/2019 19:37:11 Procedure Note Interface, External Ris In - 12/23/2019 7:39 PM DECORATIVE ENGRAVER FINAL REPORT PROCEDURE: FDG PET/CT for inflammati on CPT CODE: 24815 INDICATION: FDG PET/CT was obtained localize persistent bacteremia of unknown COMPARISON: None PROTOCOL: 11.6 mCi of F-18 fluorode oxyglucose (FDG) was injected intravenously via NA. Serum glucose was NA mg/dL prior to injection. Images were begun NA minutes after injec tion and included the vertex of the skull to the feet. Limited low-d ose CT images were also obtained for attenuation correction and anatomic correlation of PET scan abnormalities. Radiographic contras t was not administered. A diagnostic CT scan with contrast agents was not performed. FINDINGS: Due to beam hardening the CT scan is of marginal quality. Head and Neck: No abnormal FDG activity within the visualized brain, orbits, paranasal sinuses, pharyngeal so ft tissues, and thyroid gland. No FDG-avid cervical lymph nodes. Chest: There is a focus in the right sup erior anterior mediastinum just deep to the first rib articulation to the sternum. Another focus of increased activity is seen in the med iastinum just anterior to the right bronchus at the ada. There is c onsolidation, atelectasis in the left lower lobe that shows mild incr ease intensity. In the right lower lobe as intense focus is several m illimeters in size and corresponds to the density. Increased in tensity seen in the inferior aspect of the posterior basal segment. Abdomen/Pelvis: No abnormal FDG activity within the liver, gallbladder, spleen, pancreas, kidneys, adrenals, and bowel. No FDG-avid mesenteric or retroperitoneal l ymph nodes. No abnormal FDG activity within the pelvis. No FDG-avid pelvic or inguinal lymph nodes. Nonspecific intestinal activity i s noted. Musculoskeletal: No FDG-avid skeletal le sions. IMPRESSION: Abnormal exam. There are two foci noted in the mediasti num increased activity in the right lower lobe consistent with inflamm atory processes. Nonspecific bowel activity was seen. Foc al inflammation cannot be excluded. Signed: Susan Craig MD Report Verified Date/Time: 12/23/2019 1 9:37:11 Performing Organization Address City/State/Zipcode Phone Number GE RIS Cortisol (12/23/2019 1:37 PM DECORATIVE ENGRAVER)Only the most recent of2 resultswithin the time period is included. Cortisol, Total 22.9 (H) 3.7 - 19.4 ug/dL [facility] Specimen Blood Narrative Performed At Tire Builder Operator ID - KARL M [facility] Performing Organization Address City/[facility]/Zipcode Phone Number [place] [id number] [place] [address] CENTER Respiratory Panel [facility] (12/23/2019 1:31 PM DECORATIVE ENGRAVER) Human Metapneumovirus Not detected Not detected, [facility] [employer] [facility] Rhinovirus Not detected Not detected, [facility] [employer] [facility] Influenza A Not detected Not detected, [facility] [employer] [facility] INFLUENZA A (NO SUBTYPE) [facility] Influenza A subtype H1 [facility] Influenza A Subtype H3 [facility] Influenza A Subtype H1-2009 [facility] Influenza B Not detected Not detected, [facility] [employer] [facility] Respiratory Syncytial Virus Not detected Not detected, [facility] [employer] [facility] Parainfluenza Virus 1 Not detected Not detected, [facility] [employer] [facility] Parainfluenza Virus 2 Not detected Not detected, [facility] [employer] [facility] Parainfluenza virus 3 Not detected Not detected, [facility] [employer] [facility] Parainfluenza Virus 4 Not detected Not detected, [facility] [employer] [facility] Adenovirus Not detected Not detected, [facility] [employer] [facility] Coronavirus 229E Not detected Not detected, [facility] [employer] [facility] Coronavirus HKU1 Not detected Not detected, [facility] [employer] [facility] Coronavirus NL63 Not detected Not detected, [facility] [employer] [facility] Coronavirus OC43 Not detected Not detected, [facility] Equ[employer]ocal [facility] Bordetella Pertussis Not detected Not detected, [facility] Chlamydophila Pneumoniae Not detected Not detected, [facility] [employer] [facility] Mycoplasma Pneumoniae Not detected Not detected, [facility] [employer] [facility] Specimen Nasopharyngeal Narrative Performed At Other viruses and bacteria not targeted by [facility] this PCR panel cannot be excluded; therefore clinical correlation and follow up of serology, culture results, and other molecular studies is required. The results are not intended to be used as the sole means for clinical diagnosis or patient management decisions. This sample was tested at the [facility] Molecular Diagnostics Laboratory using the [employer] FilmArray Respiratory Panel. It is FDA cleared and has been verified and approved by the [facility] Molecular Diagnostics Laboratory for clinical use on nasopharyngeal swab specimens. The performance of the FilmArray RP has not been established in individuals who received influenza vaccine.Recent administration of a nasal influenza vaccine may cause false positive results for Influenza A and/or Influenza B. Performing Organization Address City/State/Zipcode Phone Number [facility] [address] [place] [address] CENTER Urinalysis w/Microscopic + Reflex to Culture (12/23/2019 9:21 AM DECORATIVE ENGRAVER) Color, UA Yellow [facility] Clarity, UA Clear [facility] Specific [place], UA 1.024 1.001 - 1.035 [facility] pH, UA 5.5 5.0 - 8.[address] [facility] Protein, UA 20 mg/dL (A) Negative [facility] Glucose, UA Negative Negative [facility] Ketones[facility] UA Negative Negative [facility] Bilirubin, UA Negative Negative [facility] Blood, UA Trace (A) Negative [facility] Nitrite, UA Negative Negative [facility] Leukocytes, UA Negative Negative [facility] Urobilinogen, UA 4.0 (H) 0.2 - 1.0 mg/dL [facility] RBC, UA 5 /HPF [facility] WBC, UA 2 /HPF [facility] Bacteria, UA Occasional [facility] Mucus Occasional [facility] Hyaline Casts, UA 1 /LPF [facility] Specimen Source [facility] Specimen Urine Narrative Performed At Tire Builder Operator ID - [auto] [facility] Tire Builder Operator ID - tech Performing Organization Address City/State/Zipcode Phone Number [facility] [address] [place] [address] CENTER XR abdomen / KUB 1 view (12/22/2019 3:03 PM DECORATIVE ENGRAVER) Specimen Narrative Performed At FINAL REPORT GE RIS Abdomen date 12/22/2019 Comment:Frontal view of the abdomen demonstrates a nasogastric tube present with tip noted in the body of th e stomach. Signed: Edilberto Gregory MD Report Verified Date/Time:12/22/2019 16:39:35 Reading Location: [address] Room Procedure Note Interface, External Ris In - 12/22/2019 4:41 PM DECORATIVE ENGRAVER FINAL REPORT Abdomen date 12/22/2019 Comment: Frontal view of the abdomen de monstrates a nasogastric tube present with tip noted in the body of th e stomach. Signed: Edilberto Gregory MD Report Verified Date/Time: 12/22/2019 1 6:39:35 Reading Location: [address] Room Performing Organization Address City/[facility] Phone Number RIS Protein, body fluid (12/21/2019 5:36 PM DECORATIVE ENGRAVER) Protein, Fluid 2.3 g/dL [facility] Specimen Body Fluid Narrative Performed At This result has an attachment that is no t available. Absence of reference range indicates that normals have not been defined. [facility] Assay performance has not been validated for this type of specimen. Performing Organization Address [facility] Phone Number [facility] [address] [place] [address] Lactate dehydrogenase (LDH), body fluid (12/21/2019 5:36 PM DECORATIVE ENGRAVER) LDH, Fluid 235 U/L [facility] [id number] Specimen Body Fluid Narrative Performed At This result has an attachment that is no t available. Absence of reference range indicates that normals have not been defined. [facility] Assay performance has not been validated for this type of specimen. Performing Organization Address [facility] Hospitalcori Phone Number [facility] [address] [place] [address] Prothrombin time/INR (12/21/2019 10:51 AM DECORATIVE ENGRAVER)Only the most recent of6 results within the time period is included. Protime 16.3 (H) 11.9 - 14.2 seconds [facility] INR 1.3 <=5.9 [facility] Specimen Blood Narrative Performed At Effective 03/24/2019: PT Reference Range [facility] Change New: 11.9-14.2Previous: 11.7-14.7 RECOMMENDED COUMADIN/WARFARIN INR THERAPY RANGES STANDARD DOSE: 2.0-3.0Includes: PROPHYLAXIS for venous thrombosis, systemic embolization; TREATMENT for venous thrombosis and/or pulmonary embolus. HIGH RISK: Target INR is 2.5-3.5 for patients wiht mechanical heart valves. Performing Organization Address City/State/Zipcode Phone Number [facility] [address] [place] [address] CENTER Blood Culture Panel(BioFire) (12/20/2019 10:47 AM DECORATIVE ENGRAVER)Only the most recent of2 resultswithin the time period is included. [place] MONOCYTOGENES Not detected Not detected [facility] STAPHYLOCOCCUS Detected (A) Not detected [facility] Comment: [facility] Coagulase negative Staph species (CoNS)- methici llin susceptible CENTER First-line therapy: Cefazoli n or Oxacillin (Oxacillin preferred if GENERAL SURGERY PHYSICIAN ASSISTANT involvement) MecA NOT DETECTED Possible contamination. The likelihood of pathogenicity is increased if the organism is observed in multiple blood cultures obtained from separate venipunctures. Reference Range: Not Detected STAPHYLOCOCCUS AUREUS Not detected Not detected [facility] Streptococcus Not detected Not detected [facility] STREPTOCOCCUS AGALACTIAE Not detected Not detected [facility] (GROUP B) [facility] STREPTOCOCCUS PNEUMONIAE Not detected Not detected [facility] Streptococcus pyogenes (Group Not detected Not detected [facility] A) [facility] ACINETOBACTER BAUMANNII Not detected Not detected [facility] HAEMOPHILUS INFLUENZAE Not detected Not detected [facility] NEISSERIA MENINGITIDIS Not detected Not detected [facility] ENTEROBACTERIACEAE [facility] ENTEROBACTER CLOACOE COMPLEX Not detected Not detected [facility] KLEBSIELLA OXYTOCA Not detected Not detected [facility] KLEBSIELLA PNEUMONIAE Not detected Not detected [facility] PROTEUS [facility] SERRATIA MARCESCENS Not detected Not detected [facility] JAMAL ALBICANS Not detected Not detected [facility] JAMAL GLABRATA Not detected Not detected [facility] JAMAL KRUSEI Not detected Not detected [facility] JAMAL PARAPSILOSIS Not detected Not detected [facility] JAMAL TROPICALIS Not detected Not detected [facility] ESCHERICHIA COLI Not detected Not detected [facility] METHICILLIN-RESISTANCE GENE Not detected Not detected [facility] VANCOMYCIN-RESISTANCE GENE [facility] CARBAPENEM-RESISTANCE GENE [facility] ENTEROCOCCUS Not detected Not detected [facility] PSEUDOMONAS AERUGINOSA Not detected Not detected [facility] Specimen Blood Narrative Performed At Other bacteria and resistance markers not [facility] targeted by this PCR panel cannot be excluded; therefore clinical correlation and follow up of serology, culture results, and other molecular studies is required. The results are not intended to be used as the sole means for clinical diagnosis or patient management decisions. This sample was tested at the [facility] Molecular Diagnostics Laboratory using the [employer]zing[employer] Blood Culture ID Panel. It is FDA cleared and has been verified and approved by the [facility] Molecular Diagnostics Laboratory for clinical use. This laboratory is CLIA-certified and [employer] [place] [employer] (CAP)-accredited to perform high complexity testing. Performing Organization Address City/State/Zipcode Phone Number [facility] [address] [place], [place] [phone] CENTER PERIPHERAL VASCULAR REPORT - SCAN (12/18/2019 9:22 PM DECORATIVE ENGRAVER) Narrative Performed At This result has an attachment that is no t available. Hemoglobin A1c (12/18/2019 4:22 AM DECORATIVE ENGRAVER) Hemoglobin A1C 5.4 4.3 - 6.1 % [facility] Specimen Blood Performing Organization Address City/State/Zipcode Phone Number [place] [phone] [place] [address] CENTER ECHOCARDIOGRAM REPORT - SCAN (12/17/2019 9:22 PM DECORATIVE ENGRAVER) Narrative Performed At This result has an attachment that is no t available. Venous doppler arm, left (12/17/2019 8:10 PM DECORATIVE ENGRAVER) Ejection Fraction [facility] ECHO HEAR TLAB [facility] Specimen Impressions Performed At [facility] ECHO HEARTLAB [facility] Left Impression 1. There is total echolucent deep venous obstruction in the jugular vein. 2. There is no deep venous obstruction in the subclavian, axillary, brachial or radial veins where visualized. 3. The ulnar veins are not visualized. 4. There is total echolucent superficial venous obstruction in the cephalic vein. 5. The superficial basilic vein is not v isualized. Conclusions Summary Venous duplex imaging and compression of the left upper extremity was performed. The veins were difficult to visualize due to edema and patient left arm movement. The left deep venous system was positive with acute thrombosis. The left superficial venous system was positive with acute thrombus. Signature Velocities are measured in cm/s ; Diameters are measured in cm Narrative Performed At PV LAB - Upper Extremities Veins [facility] ECHO HEARTLAB [facility] Demographics Patient Renny Bone of Study 12/17/2019 Age 74 Visit [id number] GenderMale Date of 1945 Referring Peter Montenegro Room Number 6107 Physician LAMONTE Anaesthesiologist Ana Lilia Dyer, RITCHIETPhysician MD Procedure Type of Study: Veins: Upper Extremities Veins, VENOUS DOPPLER ARM, LEFT. Indications for Study:Swelling. Patient Status:OLGA. Study Location:Portable. Technical Quality:Technically Difficult. - Results were reported to:LIZ tian @ 20:10. Risk Factors History of Disease + + + + !Diagnosis!Butch e!Comments ! + + + + !History/Risk Factors:!12/17/2019!Left upper arm swelling ! ! !!Left chest AICD ! + + + + Procedure Note Interface, External Ris In - 12/18/2019 8:45 AM DECORATIVE ENGRAVER PV LAB - Upper Extremities Veins Demographics Patient Name RENE CHAMBERLAIN te of Study 12/17/2019 e 74 Visit Number [id number] Ge nder Male Accession Number [id number] Da te of 1945 Referring Peter Montenegro [facility] Number [id number] Physician LAMONTE Anaesthesiologist Ana Lilia Gregory In terpreting Melony Dyer RVT Ph ysician Procedure Type of Study: Veins: Upper Extremities Veins, VENOUS DOPPLER ARM, LEFT. Indications for Study:Swelling. Patient Status:OLGA. Study Location:Portable. Technical Quality:Technically Difficult. - Results were reported to:RN Eda @ 20:10. Risk Factors History of Disease + + + + !Diagnosis !Date ! Comments ! + + + + !History/Risk Factors: !12/17/2019! Left upper arm swelling ! ! ! ! Left chest AICD ! + + + + Impressions Left Impression 1. There is total echolucent deep venous obstruction in the jugular vein. 2. There is no deep venous obstruction i n the subclavian, axillary, brachial or radial veins where visualized. 3. The ulnar veins are not visualized. 4. There is total echolucent superficial venous obstruction in the cephalic vein. 5. The superficial basilic vein is not v isualized. Conclusions Summary Venous duplex imaging and compression o f the left upper extremity was performed. The veins were difficult to visualize due to edema and patient left arm movement. The left deep venous system was positive with acute thrombosis. The left superficial venous system was positive with acute thrombus. Signature Velocities are measured in cm/s ; Diamet ers are measured in cm Performing Organization Address City/State/Zipcode Phone Number [facility] ECHO HEARTLAB [facility] Vancomycin level, trough (12/17/2019 2:00 PM DECORATIVE ENGRAVER)Only the most recent of2 resultswithin the time period is included. Vancomycin Tr 10.8 10.0 - 20.0 ug/mL [facility] Specimen Blood Performing Organization Address City/[facility]/Zipcode Phone Number [facility] [address] [place] [address] brain without IV contrast (12/17/2019 11:15 AM DECORATIVE ENGRAVER) Specimen Narrative Performed At FINAL REPORT [employer] [facility] CT, BRAIN, WITHOUT CONTRAST CLINICAL INDICATION:ams COMPARISON: None TECHNIQUE:Noncontrast axial CT imagi ng of the brain and skull. DOSE REDUCTION: Dose modulation, iterati ve reconstruction, and/or weight-based adjustment of the mA/kV was utilized to reduce the radiation dose to as low as reasonably a chievable. FINDINGS: No intracranial hemorrhage, midline shif t or mass effect. Midline structures are normally developed. Mild chronic microvascular ischemic changes of the periventricular and subcortical white matter are present. No hydrocephalus. Orbits are within normal limits. No obstructive paranasal sinus disease. ET tube and nasogastric tube IMPRESSION: No acute intracranial findings If there is persistent clinical concern for intracranial pathology, MR examination is recommended for furthe r characterization. Signed: Madeline Casas MD Report Verified Date/Time:12/17/2019 11:48:34 Reading Location: [facility] [address] [place] [address] Procedure Note Interface, External Ris In - 12/17/2019 11:50 AM DECORATIVE ENGRAVER FINAL REPORT CT, BRAIN, WITHOUT CONTRAST CLINICAL INDICATION: ams COMPARISON: None TECHNIQUE: Noncontrast axial CT imaging of the brain and skull. DOSE REDUCTION: Dose modulation, iterati ve reconstruction, and/or weight-based adjustment of the mA/kV was utilized to reduce the radiation dose to as low as reasonably a chievable. FINDINGS: No intracranial hemorrhage, midline shif t or mass effect. Midline structures are normally developed. Mild chronic microvascular ischemic changes of the periventricular and subcortical white matter are present. No hydrocephalus. Orbits are within normal limits. No obstructive paranasal sinus disease. ET tube and nasogastric tube IMPRESSION: No acute intracranial findings If there is persistent clinical concern for intracranial pathology, MR examination is recommended for furthe r characterization. Signed: Madeline Casas MD Report Verified Date/Time: 12/17/2019 1 1:48:34 Reading Location: [facility] [address] [place] [address] Performing Organization Address City/State/Zipcode Phone Number [employer] CT abdomen/pelvis without iv contrast (12/17/2019 11:15 AM DECORATIVE ENGRAVER) Specimen Narrative Performed At FINAL REPORT [employer] CT of the Chest, abdomen and pelvis date d 12/17/2019 Clinical information: pneumonia Comment:Axial images of the chest, a bdomen, and pelvis were obtained from thoracic inlet to the pubi c symphysis without GI or intravenous contrast. This exam was performed according to our departmental dose-optimization program, which include s automated exposure control, adjustment of the mA and/or kV according to patient size and/or use of interactive reconstruction technique. Heart is enlarged. There is small perica rdial effusion. Atherosclerotic calcification is seen in the thoracic aorta and coronary arteries. Great vessels are unr emarkable. No adenopathy in the mediastinum or perihilar region. Tra abisai and mainstem bronchi are patent. Moderate left pleural effusion is presen t with left lower lobe compressive atelectasis. Subsegmental at electasis is seen in the right lung base. The rest of the lungs a re clear. No nodular, mass lesion, or airspace disease is seen. Liver and spleen are normal in size. No focal lesion is seen in the liver or the spleen. Gallbladder is dist ended. No gallstone or biliary dilatation is noted. Pancreas an d adrenals are unremarkable. Both kidneys are normal in size. Several stones are seen in the left kidney measuring up to 4 mm in size. A 2 mm stone is seen in the midpole right kidney. No hydronephrosis or hydroureter is present. A 1 cm hemorrhagic cyst is seen in the mid pole left kidney. A 2.5 cm hemorrhagic cyst is seen in the inferior pole left kidney. Diverticular disease is seen in the larg e bowel without diverticulitis. Small bowel and appendix are normal in caliber. Prostate is normal in size. The urinary bladder is contracted. Atherosclerotic calcifications is seen i n the abdominal aorta, spleen mesenteric, right renal, and bilateral i liac arteries. Impression: 1. Cardiomegaly with small pericardial e ffusion. 2. Left pleural effusion with left lower lobe compressive atelectasis. 3. No pneumonia. 4. Left hemorrhagic renal cysts and nono bstructive bilateral renal stones. 5. Diverticulosis without diverticulitis . Signed: Edilberto Gregory MD Report Verified Date/Time:12/17/2019 13:42:11 Reading Location: [facility] C013Y CT Body R [facility] Room Procedure Note Interface, External Ris In - 12/17/2019 2:54 PM DECORATIVE ENGRAVER FINAL REPORT CT of the Chest, abdomen and pelvis date d 12/17/2019 Clinical information: pneumonia Comment: Axial images of the chest, abd omen, and pelvis were obtained from thoracic inlet to the pubi c symphysis without GI or intravenous contrast. This exam was performed according to our departmental dose-optimization program, which include s automated exposure control, adjustment of the mA and/or kV according to patient size and/or use of interactive reconstruction technique. Heart is enlarged. There is small perica rdial effusion. Atherosclerotic calcification is seen in the thoracic aorta and coronary arteries. Great vessels are unr emarkable. No adenopathy in the mediastinum or perihilar region. Tra abisai and mainstem bronchi are patent. Moderate left pleural effusion is presen t with left lower lobe compressive atelectasis. Subsegmental at electasis is seen in the right lung base. The rest of the lungs a re clear. No nodular, mass lesion, or airspace disease is seen. Liver and spleen are normal in size. No focal lesion is seen in the liver or the spleen. Gallbladder is dist ended. No gallstone or biliary dilatation is noted. Pancreas an d adrenals are unremarkable. Both kidneys are normal in size. Several stones are seen in the left kidney measuring up to 4 mm in size. A 2 mm stone is seen in the midpole right kidney. No hydronephrosis or hydroureter is present. A 1 cm hemorrhagic cyst is seen in the mid pole left kidney. A 2.5 cm hemorrhagic cyst is seen in the inferior pole left kidney. Diverticular disease is seen in the larg e bowel without diverticulitis. Small bowel and appendix are normal in caliber. Prostate is normal in size. The urinary bladder is contracted. Atherosclerotic calcifications is seen i n the abdominal aorta, spleen mesenteric, right renal, and bilateral i liac arteries. Impression: 1. Cardiomegaly with small pericardial e ffusion. 2. Left pleural effusion with left lower lobe compressive atelectasis. 3. No pneumonia. 4. Left hemorrhagic renal cysts and nono bstructive bilateral renal stones. 5. Diverticulosis without diverticulitis . Signed: Edilberto Gregory MD Report Verified Date/Time: 12/17/2019 1 3:42:11 Reading Location: [facility] B1 C013Y CT Body R ding Room Performing Organization Address City/State/Zipcode Phone Number [employer] 2D Echocardiogram (12/17/2019 8:25 AM DECORATIVE ENGRAVER) Ejection Fraction [facility] ECHO HEAR TLAB [email or web address] [facility] Specimen Narrative Performed At Transthoracic Echocardiography Report (T TE) [facility] ECHO HEARTLAB [employer] [facility] Demographics Patient RENE Bone Date of Study 12/17/2019 Male Visit [id number] Room Number 6107 Number Date of 1945Referring Physician Freddie ADAME Age 74 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 Difficult to assess segmental wall motion; overall LV systolic function appears at least moderately reduced based on available views. A trivial circumferential pericardial effusion is present . Signature Findings Left Ventricle The left ventricle is chamber size (by PSLAX di mension) is normal (male - LVIDd 4.2-5.8 cm) . Mi ld concentric LV hypertrophy. Difficult to assess se gmental wall motion; overall LV systolic function ap pears at least moderately reduced based on av ailable views. Left AtriumLA size is mildly enlarged (35-41 ml/m2) . Right VentricleRV chamber size is moderately enlarged . Gl obal RV systolic function is depressed . Right Atrium RA size is dilated. Aortic Valve Mild AoV cusp thickening. Mitral Valve Mild MV leaflet thickening. Tricuspid ValveUnable to estimate peak systolic PA pressure; in adequate TR velocity signal. Pulmonic Valve PV is not well visualized. AortaAortic root size (SInus of Valsalva diameter) i s no rmal . PericardiumA trivial circumferential pericardial effusion is pr esent . IVC/SVC/PA/PV/PleuralA left pleural effusion is noted. Chambers/Structures Left Atrium LA Dimension: 3.95 cmLA Area: 29.49 cm^2 LA Volume: 98.04 ml LA Vol. 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 Difficult to assess segmental wall drea on; overall LV systolic function appears at least moderately reduced bas ed on available views. A trivial circumferential pericardial e ffusion is present . Signature Findings Left Ventricle The left ventric le is chamber size (by PSLAX dimension) is no rmal (male - LVIDd 4.2-5.8cm) . Mild concentric LV hypertrophy. Difficult to assess segmental wall m otion; overall LV systolic function appears at least moderately reduced based on available views. Left Atrium LA size is mildl y enlarged (35-41 ml/m2) . Right Ventricle RV chamber size is moderately enlarged . Global RV systol ic function is depressed . Right Atrium RA size is dilat ed. Aortic Valve Mild AoV cusp th ickening. Mitral Valve Mild MV leaflet thickening. Tricuspid Valve Unable to estima te peak systolic PA pressure; inadequate TR ve locity signal. Pulmonic Valve PV is not well v isualized. Aorta Aortic root size (SInus of Valsalva diameter) is normal . Pericardium A trivial circum ferential pericardial effusion is present . IVC/SVC/PA/PV/Pleural A left pleural e ffusion is noted. Chambers/Structures Left Atrium LA Dimension: 3.95 cm LA Area: 29.49 cm^2 LA Volume: 98.04 ml LA Vol. Index: 41 ml/m^2 Left Ventricle LVIDd: 4.82 cm LV Septum Diastolic: 1.34 cm LV PW Diastolic: 1.29 cm Aorta Ao Root S of Mary.: 3.93 cm Performing Organization Address [facility] Phone Number [facility] CPA Vitamin B12 and Folate (12/17/2019 3:09 AM DECORATIVE ENGRAVER) Vitamin B12 767 213 - 816 pg/mL [facility] Folate 5.1 (L) >=7.0 ng/mL [facility] Specimen Blood Narrative Performed At Tire Builder Operator ID - ADAMARIS York [facility] Performing Organization Address [facility] Phone Number [address] [address] CENTER TSH/Free T4 If Indicated (12/17/2019 3:09 AM DECORATIVE ENGRAVER) TSH 0.72 0.35 - 4.94 uIU/mL [facility] Specimen Blood Narrative Performed At Tire Builder Operator ID - ADAMARIS York [facility] Performing Organization Address [facility] Phone Number [facility] [address] [place] [address] CENTER Iron, TIBC, % sat. (without ferritin) (12/17/2019 3:09 AM DECORATIVE ENGRAVER) Iron 21.0 (L) 40.0 - 160.0 ug/dL [facility] TIBC 115 (L) 250 - 450 ug/dL [facility] Iron % Saturation 18 (L) 20 - 55 % [facility] Specimen Blood Narrative Performed At Tire Builder Operator ID - ADAMARIS M [facility] Performing Organization Address City/State/Zipcode Phone Number [address] [address] [place] Lactic acid, venous (12/17/2019 3:09 AM DECORATIVE ENGRAVER) Lactate, Venous 1.1Comment: Specimen 0.5 - 2.2 mmol/L [facility] slightly hemolyzed [facility] Specimen Blood Narrative Performed At Tire Builder Operator ID - ADAMARIS M [facility] Performing Organization Address City/[facility] Phone Number [address] [address] [place] Reticulocyte count (12/17/2019 3:09 AM DECORATIVE ENGRAVER) % Retic 2.1 (H) 0.5 - 1.8 % [facility] Specimen Blood Narrative Performed At Tire Builder Operator ID - [id number] [facility] Performing Organization Address City/[facility]/Zipcode Phone Number [address] [address] CENTER Ferritin (12/17/2019 3:09 AM DECORATIVE ENGRAVER) Ferritin 4,442 (H) 5 - 275 ng/mL [facility] Specimen Blood Narrative Performed At Tire Builder Operator ID - ADAMARIS M [facility] Performing Organization Address City/[facility]/Zipcode Phone Number [address] [phone] [place] Ammonia (12/16/2019 2:38 PM DECORATIVE ENGRAVER) Ammonia 30 18 - 72 mol/L [facility] Specimen Blood Narrative Performed At Tire Builder Operator ID - BS [facility] Performing Organization Address [facility] Phone Number [address] [address] [place] Potassium-Stat Lab (12/16/2019 2:31 PM DECORATIVE ENGRAVER)Only the most recent of3 results within the time period is included. Potassium 3.1 (L) 3.6 - 5.5 meq/L [facility] Specimen Blood, Arterial Performing Organization Address [facility] [place] [address] [facility] Sodium Na-Stat Lab (12/16/2019 2:31 PM DECORATIVE ENGRAVER)Only the most recent of3 results within the time period is included. Sodium 134 (L) 135 - 148 meq/L [facility] Specimen Blood, Arterial Performing Organization Address [facility] Phone Number [address] [address] [facility] Glucose-Stat Lab (12/16/2019 2:31 PM DECORATIVE ENGRAVER)Only the most recent of3 resultswithin the time period is included. Glucose 126 (H) 70 - 110 mg/dL [facility] Specimen Blood, Arterial Performing Organization Address [facility] Phone Number [address] [address] [facility] HGB/HCT (H&H)-Stat Lab (12/16/2019 2:31 PM DECORATIVE ENGRAVER)Only the most recent of3 resultswithin the time period is included. Hemoglobin 10.6 (L) 13.0 - 16.8 g/dL [facility] Hematocrit 31.0 (L) 40.0 - 50.0 % [facility] Specimen Blood, Arterial Performing Organization Address City/[facility]/Zipcode Phone Number [address] [address] CENTER AFB culture + smear (non-sputum) (12/16/2019 12:21 PM DECORATIVE ENGRAVER) Result No acid-fast bacilli isolated in [facility] 42 days CENTER AFB Smear No acid fast bacilli seen [facility] Specimen Wound Performing Organization Address [facility] Phone Number [address] [address] [facility] Anaerobic culture (12/16/2019 12:21 PM DECORATIVE ENGRAVER) Result No anaerobes isolated [facility] Specimen Wound Performing Organization Address [facility] Phone Number [address] [address] CENTER Surgically obtained culture + gram stain (12/16/2019 12:21 PM DECORATIVE ENGRAVER) Result 1+ Staphylococcus lugdunensis [facility] Gram Stain Result <1+ WBCs [facility] Gram Stain Result <1+ gram positive cocci in [facility] pairs and clusters MEDICAL CENTE R Specimen Wound Organism Antibiotic Method Susceptibility Staphylococcus lugdunensis Clindamycin Resis tant Staphylococcus lugdunensis Erythromycin >=8: Resistant Staphylococcus lugdunensis Levofloxacin <=0.1 2: Susceptible Staphylococcus lugdunensis Linezolid 1: Mccloud sceptible Staphylococcus lugdunensis Oxacillin 2: Mccloud sceptible Staphylococcus lugdunensis Rifampin <=0.5 : Susceptible Staphylococcus lugdunensis Tetracycline >=16: Resistant Staphylococcus lugdunensis Trimethoprim + Sulfamethoxazole <=10: Susceptible Staphylococcus lugdunensis Vancomycin <=0.5 : Susceptible Performing Organization Address [facility] Phone Number [facility] [address] [place] [address] CENTER ECHOCARDIOGRAM REPORT - SCAN (12/15/2019 9:23 PM DECORATIVE ENGRAVER) Narrative Performed At This result has an attachment that is no t available. Urine culture (12/15/2019 5:10 PM DECORATIVE ENGRAVER) Result No growth [facility] Specimen Urine Performing Organization Address City/[facility]/Zipcode Phone Number [facility] [address] [place] [address] CENTER ABORH, manual (12/15/2019 5:09 PM DECORATIVE ENGRAVER) ABO Grouping O [facility] Rh Factor POS [facility] Specimen Blood Performing Organization Address City/[facility]/Zipcode Phone Number [facility] [address] [place], [place] [id number] EEG AWAKE AND DROWSY (12/15/2019 4:24 PM DECORATIVE ENGRAVER) Specimen Narrative Performed At DATE OF TEST: 12/15/19 GE RIS DATE OF REPORT: 12/15/19 ACC: [id number] Start: 1603 End: 1624 CPT Code: 59599 ICD-10: R56.9 HISTORY: 74 yo male with HTN, HLD, CAD, Obesity, AVN s/p dual ppm 2006 and cardiomyopathy s/p BIV-ICD upgrade in who was transferred from [facility] for lead extraction. Patient was ad [facility] with change in mental status. Per son, maurice cobb had positive blood clusters on that admission. He was re-admitted wi th changes in mental status. TECHNICAL SUMMARY: This is a digital video EEG recorded wit h 32 input channels reviewed with bipolar and referential montages us ing the modified combinatorial system nomenclature. MEDICATIONS: Heparin, influenza, pneumoc DESCRIPTION OF RECORD: During the maximally alert state a 7-8 H z posterior dominant rhythm was seen that was symmetric, reactive to eye opening and poorly modulated. More anteriorly, low voltage frontocentral beta was seen. There was excessive admixed theta and de lta activity seen diffusely. State changes and reactivity were seen b ut no stage II sleep structures were seen. HV: Hyperventilation was not performed. PHOTIC STIMULATION: Flash stimulation wa s not performed IMPRESSION: Abnormal Awake and Drowsy EE G Continuous slow, generalized Background slow CLINICAL CORRELATION: This is an abnorma l EEG supportive of a mild encephalopathy. No areas of focal dysfun ction or epileptiform discharges were seen. An EEG without epi leptiform discharges does not exclude the possibility of epilepsy. If the clinical suspicion for epilepsy remains, consider additional EE G recordings. Primitivo Chowdary MD, MS Neurophysiology/Epilepsy Attending Procedure Note Interface, External Ris In - 12/15/2019 4:41 PM DECORATIVE ENGRAVER DATE OF TEST: 12/15/19 DATE OF REPORT: 12/15/19 ACC: [id number] Start: 1603 End: 1624 CPT Code: 63384 ICD-10: R56.9 HISTORY: 74 yo male with HTN, HLD, CAD, Obesity, AVN s/p dual ppm 2006 and cardiomyopathy s/p BIV-ICD upgrade in who was transferred from [facility] for lead extraction. Patient was ad m[facility] with change in mental status. Per son, maurice cobb had positive blood clusters on that admission. He was re-admitted wi th changes in mental status. TECHNICAL SUMMARY: This is a digital video EEG recorded wit h 32 input channels reviewed with bipolar and referential montages us ing the modified combinatorial system nomenclature. MEDICATIONS: Heparin, influenza, pneumoc DESCRIPTION OF RECORD: During the maximally alert state a 7-8 H z posterior dominant rhythm was seen that was symmetric, reactive to eye opening and poorly modulated. More anteriorly, low voltage frontocentral beta was seen. There was excessive admixed theta and de lta activity seen diffusely. State changes and reactivity were seen b ut no stage II sleep structures were seen. HV: Hyperventilation was not performed. PHOTIC STIMULATION: Flash stimulation wa s not performed IMPRESSION: Abnormal Awake and Drowsy EE G Continuous slow, generalized Background slow CLINICAL CORRELATION: This is an abnorma l EEG supportive of a mild encephalopathy. No areas of focal dysfun ction or epileptiform discharges were seen. An EEG without epi leptiform discharges does not exclude the possibility of epilepsy. If the clinical suspicion for epilepsy remains, consider additional EE G recordings. Primitivo Chowdary MD, MS Neurophysiology/Epilepsy Attending Performing Organization Address City/State/Zipcode Phone Number GE RIS 2D Echo W/Doppler(CW/PW/Color) (12/15/2019 2:23 PM DECORATIVE ENGRAVER) Ejection Fraction [facility] ECHO HEAR TLAB [facility] Specimen Narrative Performed At Transthoracic Echocardiography Report (T TE) [facility] ECHO [facility]LAB [facility] Demographics Patient Name Renny CHAMBERLAIN of Study 12/15/2019 [id number] GenderMal e Visit Number [id number] RaceCauc [id number] m Number [id number] Number Date of Birth1945 Referring Physician Niyah Mojica MD Age74 year(s) Anaesthesiologist Kenton Byrd ms [facility] AnalysDanna Hatch,InterpretingStajay Gore [facility] Physician Procedure Type of Study TTE procedure:2DECHO W DOPPLER(CW/PW/COLOR) (STAT) Indications:Endocarditis. 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 Height: 72 inches Weight: 136.08 kg (300 lbs) BSA: 2.53 m^2 BMI: 40.69 kg/m^2 HR: 93 bpm BP: 134/90 mmHg Summary 1. Normal LV size. LV function appears mildly reduced (40-44%). Septal motion is abnormal, likely related to conduction abnormality . The other segments are mildly hypokinetic. 2. Normal RV size and function. 3. Unable to estimate peak systolic PA pressure. 4. The estimated RA pressure by IVC dynamics 5-10mmHg . Previous Study No prior studies available for comparis on. Signature Findings Technical Quality: Technically difficult exam. Left Ventricle LV endocardium is partially visualized with IV ul trasound enhancing agent. The left ventr icle is ch anitha size (by vol index) is normal (mal e - LVED vo l - 34-74ml/m2). Mild concentric LV hype rtrophy. Se ptal motion is abnormal, likely related to co nduction abnormality . The other segment s are mi ldly hypokinetic. Global LV systolic fun ction mi ldly reduced . Estimated LVEF by qualita tive as sessment is mildly reduced (40-44%) . De gree of di astolic dysfunction (LAP assessment) is in conclusive due to arrhythmia . Left AtriumLA is incompletely visualized, size based on l inear me asurement. LA size is mildly enlarged . Right VentricleThe right ventricular chamber size and systolic fu nction are within normal limits. RV pacing wire is visualized . Right Atrium RA size is normal. RA pacing wire is visualized . Aortic Valve Mild AoV cusp thickening. No evidence of aortic regurgitation. Mitral Valve Mild MV leaflet thickening. Tr jose rafael mitral regurgitation. Tricuspid ValveNormal TV structure and function by available view s an d Doppler. Un able to estimate peak systolic PA pressu re; in adequate TR velocity signal. Pulmonic Valve Normal PV structure and function by limited views an d Doppler. AortaAortic root size (Sinus of Valsalva diameter) i s mi ldly dilated. 4.1 cm PericardiumNo pericardial effusion is visualized. IVC/SVC/PA/PV/PleuralThe estimated RA pressure by IVC dynamics 5-10mmHg . Chambers/Structures Left Atrium LA Dimension: 4.57 cm Left Ventricle LVIDd: 5.44 cm LV Septum Diastolic: 1.29 cm LV PW Diastolic: 1.5 cm LVEDV Hendricks's:135.2 ml LVEDVI: 53 ml/m^2 LVOT Diameter: 2.54 cm Aorta Ao Root S of Mary.: 4.15 cm Doppler/Quantitative Measurements Aortic Valve Peak Velocity: 1.41 m/sMean Velocity: 1.01 m/s Peak Gradient: 7.99 mmHg Mean Gradient: 4.56 mmHg AV Area (continuity): 3.91 cm^2 AV VTI: 19.88 cm AV DVI: 0.77 LVOT Peak Velocity: 1.04 m/s Peak Gradient: 4.33 mmHg Mean Velocity: 0.73 m/s Mean Gradient: 2.44 mmHg LVOT Diameter: 2.54 cmLVOT VTI: 15.33 cm LVOT Area: 5.07 cm^2LVOT SV:77.64 ml LVOT CO: 7.22 l/min LVOT CI: 2.85 l/min/m^2 Procedure Note Interface, External Ris In - 12/15/2019 6:11 PM DECORATIVE ENGRAVER Transthoracic Echocardiography Report (TTE) Demographics Patient Name RENE CHAMBERLAIN Date of Study 12/15/2019 Gender Male Visit Number [id number] [address] [place] [address] Number Date of 1945 Referri Physician Niyah Mojica MD Age 74 year(s) 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 Height: 72 inches Weight: 136.08 kg (300 lbs) BSA: 2.53 m^2 BMI: 40.69 kg/m^2 HR: 93 bpm BP: 134/90 mmHg Summary 1. Normal LV size. LV function appears mildly reduced (40-44%). Septal motion is abnormal, likely related to c onduction abnormality . The other segments are mildly hypokinetic. 2. Normal RV size and function. 3. Unable to estimate peak systolic PA pressure. 4. The estimated RA pressure by IVC dyn amics 5-10mmHg . Previous Study No prior studies available for comparis on. Signature Findings Technical Quality: Technically difficult exam. Left Ventricle LV endocardium i s partially visualized with IV ultrasound enhan cing agent. The left ventricle is chamber size (by vol index) is normal (male - LVED vol - 34-74ml/m2 ). Mild concentric LV hypertrophy. Septal motion is abnormal, likely related to conduction abnor mality . The other segments are mildly hypokinet ic. Global LV systolic function mildly reduced . Estimated LVEF by qualitative assessment is mi ldly reduced (40-44%) . Degree of diastolic dysfun ction (LAP assessment) is inconclusive due to arrhythmia . Left Atrium LA is incomplete ly visualized, size based on linear measurement. LA size is mildl y enlarged . Right Ventricle The right ventri cular chamber size and systolic function are wit hin normal limits. RV pacing wire i s visualized . Right Atrium RA size is karen l. RA pacing wire i s visualized . Aortic Valve Mild AoV cusp th ickening. No evidence of a ortic regurgitation. Mitral Valve Mild MV leaflet thickening. Trace mitral reg urgitation. Tricuspid Valve Normal TV struct ure and function by available views and Doppler. Unable to estima te peak systolic PA pressure; inadequate TR ve locity signal. Pulmonic Valve Normal PV struct ure and function by limited views and Doppler. Aorta Aortic root size (Sinus of Valsalva diameter) is mildly dilated. 4.1 cm Pericardium No pericardial e ffusion is visualized. IVC/SVC/PA/PV/Pleural The estimated RA pressure by IVC dynamics 5-10mmHg . Chambers/Structures Left Atrium LA Dimension: 4.57 cm Left Ventricle LVIDd: 5.44 cm LV Septum Diastolic: 1.29 cm LV PW Diastolic: 1.5 cm LVEDV Hendricks's:135.2 ml LVEDVI: 53 ml/m^2 LVOT Diameter: 2.54 cm Aorta Ao Root S of Mary.: 4.15 cm Doppler/Quantitative Measurements Aortic Valve Peak Velocity: 1.41 m/s Mean Velocity: 1.01 m/s Peak Gradient: 7.99 mmHg Mean Gradient: 4.56 mmHg AV Area (continuity): 3.91 cm^2 AV VTI: 19.88 cm AV DVI: 0.77 LVOT Peak Velocity: 1.04 m/s Pea k Gradient: 4.33 mmHg Mean Velocity: 0.73 m/s Yessica n Gradient: 2.44 mmHg LVOT Diameter: 2.54 cm LVO T VTI: 15.33 cm LVOT Area: 5.07 cm^2 LVO T SV:77.64 ml LVOT CO: 7.22 l/min LVO T CI: 2.85 l/min/m^2 Performing Organization Address City/[facility] Phone Number [facility] ECHO HEARTLAB [facility]ACS Lipid panel (12/15/2019 2:47 AM DECORATIVE ENGRAVER) Triglycerides 126 mg/dL [facility] Cholesterol 90 mg/dL [facility] HDL 6 mg/dL [facility] LDL Calculated 59 mg/dL [facility] Specimen Blood Narrative Performed At Triglyceride Reference Range: [facility] Low Risk <150 [id number] High Risk 200-499 Very High Risk>=500 Cholesterol Reference Range: Low Risk <200 Lsiqhrptck240-127 High Risk>240 HDL Cholesterol Reference Range: Low Risk >=60 High Risk <40 LDL Cholesterol Reference Range: Optimal<100 Near Sdeiabj714-809 [id number] Djnd100-656 Very High >=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 Performing Organization Address City/State/Zipcode Phone Number [facility] [address] [place] [address] CENTER after 03/08/2019 Insurance Payer Benefit Plan / Group Subscriber ID Type Phone A ddress MEDICARE MEDICARE A B xxxxxxxxxxx Medicare MCR GENERIC MEDICARE xxxxxxxxx [place] SUPPLEMENT/INDIVIDUAL SUPPLEMENT Advance Directives For more information, please contact:[place] [address] [address] [place], [place] [phone] Code Status Date Activated Date Inactivated Comments DNAR 01/17/2020 7:31 PM 01/28/2020 11:20 AM This code status was determined by: Child Has the consent form been signed? No Have you Written ACP Note: No Full Code 01/17/2020 7:30 PM 01/17/2020 7:31 PM This code status was determined by: Patient DNAR 12/26/2019 7:26 PM 12/30/2019 5:25 PM This code status was determined by: Child Has the consent form been signed? No son is not here Have you Written ACP Note: Yes in progress n ote Full Code 12/15/2019 12:46 AM 12/26/2019 7:26 PM This code status was determined by: Patient
--- OUTSIDE RECORDS SUMMARY | 2020-03-08 06:46 | XMS REPORT | Continuity of Care Document ---
:1945 Author Organization [facility] Care Team Providers Name Role Phone KAY Francis Anne Unavailable Unavailable Insurance Providers Payer name Policy type / Policy ID Covered constitution party ID Policy Hol micky Coverage type MEDICARE PRIMARY MEDICARE [place]: [place] BENEFIT FUND (SECONDARY ON Encounters Encounter Performer Location Date Office Visit Dolly Francis APRN [facility] [place] [facility] ardi[facility] Jul 18, 2014 Allergies, Adverse Reactions, Alerts Type Substance Reaction Status Drug allergy BACTRIM welps, itchiness Active Drug allergy TETANUS TOXOID unknown Active Problems Problem Effective Dates Problem Status CORONARY ARTERY DISEASE Active HYPERTENSION Active HYPERLIPIDEMIA Active PACEMAKER, PERMANENT Aug 03, 2012 Active PRE-OPERATIVE CARDIOVASCULAR EXAMINATION Dec 20, 2013 Inactive ATRIOVENTRICULAR BLOCK, COMPLETE Dec 20, 2013 Active DYSPNEA ON EXERTION Active ASBESTOSIS Jul 07, 2014 Active BODY MASS INDEX 37.0-37.9, ADULT Jul 07, 2014 Active CARDIOMYOPATHY Jul 08, 2014 Active Procedures Date Description Comments Aug 03, 2012 smoking status former smoker Dec 20, 2013 smoking status former smoker Jul 07, 2014 smoking status Former smoker Jul 18, 2014 smoking status Former smoker Medications Medication Instructions Start Date Status PRAVASTATIN SODIUM 40 MG TABS Take two tabs by mouth once Active daily TERAZOSIN HCL 10 MG CAPS Take one tab daily Acti ve LOVAZA 1 GM CAPS Take one tab twice daily Active LOTREL 10-40 MG CAPS Take one tab daily Active HYDROCHLOROTHIAZIDE 25 MG TABS Take one tab daily Active ASPIRIN 81 MG TABS Take one tab by mouth every day Dec 20, 2013 Active ZOLOFT 25 MG TABS one daily Active LABETALOL HCL 200 MG TABS Take 1 tab by mouth twice daily Jun Active PLAVIX 75 MG TABS Take one tab daily (on hold) Dec 20, 2013 I nactive TAMSULOSIN HCL 0.4 MG CAPS 1 tab q hs Jul 18, 2014 Activ e Vital Signs Date Description Test Result Dec 20, 2013 weight E&M - 3141-9 WEIGHT 271 lb Dec 20, 2013 height E&M - 8302-2 HEIGHT 72 in Dec 20, 2013 blood pressure, systolic, sitting, left arm BP S YS SIT L 130 mm Hg Dec 20, 2013 blood pressure, diastolic, sitting, left arm BP KAMALJIT SIT L 80 mm Hg Dec 20, 2013 pulse rate, sitting, left PULSE SIT L 60 /mi n Dec 20, 2013 blood pressure, systolic - 8480-6 BP SYSTOLIC 130 mm Hg Dec 20, 2013 pulse rate E&M - 8867-4 PULSE RATE 60 /min Dec 20, 2013 blood pressure, diastolic - 8462-4 BP DIASTOLIC 80 mm Hg Jul 07, 2014 weight E&M - 3141-9 WEIGHT 274 lb Jul 07, 2014 blood pressure, systolic, sitting, left arm BP S YS SIT L 140 mm Hg Jul 07, 2014 blood pressure, diastolic, sitting, left arm BP KAMALJIT SIT L 90 mm Hg Jul 07, 2014 pulse rate, sitting, left PULSE SIT L 60 /mi n Jul 07, 2014 respiratory rate E&M - 9279-1 RESP RATE 20 /min Jul 07, 2014 temperature E&M TEMPERATURE 98.7 deg f Jul 07, 2014 blood pressure, systolic - 8480-6 BP SYSTOLIC 140 mm Hg Jul 07, 2014 pulse rate E&M - 8867-4 PULSE RATE 60 /min Jul 07, 2014 blood pressure, diastolic - 8462-4 BP DIASTOLIC 90 mm Hg Jul 18, 2014 weight E&M - 3141-9 WEIGHT 266 lb Jul 18, 2014 blood pressure, systolic, sitting, right arm BP SYS SIT R 157 null Jul 18, 2014 blood pressure, diastolic, sitting, right arm BP KAMALJIT SIT R 87 mmHg Jul 18, 2014 blood pressure, systolic, sitting, left arm BP S YS SIT L 154 mm Hg Jul 18, 2014 blood pressure, diastolic, sitting, left arm BP KAMALJIT SIT L 92 mm Hg Jul 18, 2014 pulse rate, sitting, left PULSE SIT L 59 /mi n Jul 18, 2014 pulse rate, sitting, right PULSE SIT R 60 /m in Jul 18, 2014 temperature E&M TEMPERATURE 97.9 deg f Jul 18, 2014 respiratory rate E&M - 9279-1 RESP RATE 16 /min Jul 18, 2014 blood pressure, systolic - 8480-6 BP SYSTOLIC 157 mm Hg Jul 18, 2014 pulse rate E&M - 8867-4 PULSE RATE 59 /min Jul 18, 2014 blood pressure, diastolic - 8462-4 BP DIASTOLIC 87 mm Hg Results Date Description Test Name Value Reference Interpretation Sta tus Jul 07, 2014 hemoglobin, blood HGB 14.1 g/dL 12.3-17.3 Jul 07, 2014 hematocrit, blood HCT 41.2 % 36.7-50.5 Sep 16, 2010 prostate specific PSA 1.45 ng/mL antigen Jul 07, 2014 sodium, serum SODIUM 141 mmol/L 135-143 Jul 07, 2014 potassium, serum POTASSIUM 3.8 mmol/L 3.3-5.0 Jul 07, 2014 urea nitrogen, BUN 15 mg/dL 10-22 blood Jul 07, 2014 creatinine, serum CREATININE 0.96 mg/dL 0.46-1.20 Jul 07, 2014 calcium, serum CALCIUM 10.1 mg/dL 8.6-9.8 High
--- OUTSIDE RECORDS SUMMARY | 2020-03-08 06:46 | XMS REPORT | Continuity of Care Document ---
:1945 Author Organization [facility] Care Team Providers Name Role Phone KAY Francis Anne Unavailable Unavailable Insurance Providers Payer name Policy type / Policy ID Covered alliance party ID Policy Hol micky Coverage type MEDICARE PRIMARY MEDICARE [place]: [employer] BENEFIT FUND (SECONDARY ON Encounters Encounter Performer Location Date Lab Report Dolly Francis APRN [facility] [place] Jul 07, 2014 Allergies, Adverse Reactions, Alerts Type Substance Reaction Status Drug allergy BACTRIM Active Drug allergy TETANUS TOXOID Active Problems Problem Effective Dates Problem Status CORONARY ARTERY DISEASE Active HYPERTENSION Active HYPERLIPIDEMIA Active PACEMAKER, PERMANENT Aug 03, 2012 Active PRE-OPERATIVE CARDIOVASCULAR EXAMINATION Dec 20, 2013 Inactive ATRIOVENTRICULAR BLOCK, COMPLETE Dec 20, 2013 Active DYSPNEA ON EXERTION Active ASBESTOSIS Jul 07, 2014 Active BODY MASS INDEX 37.0-37.9, ADULT Jul 07, 2014 Active Procedures Date Description Comments Aug 03, 2012 smoking status former smoker Dec 20, 2013 smoking status former smoker Jul 07, 2014 smoking status Former smoker Medications Medication [...] (on hold) Dec 20, 2013 I nactive Vital Signs Date Description Test Result Dec [...] - 8462-4 BP DIASTOLIC 90 mm Hg Results Date Description Test Name [...]
--- OUTSIDE RECORDS SUMMARY | 2020-03-08 06:46 | XMS REPORT | Continuity of Care Document ---
:[address] [facility] Care Team Providers Name Role Phone MD Radha, Francis Unavailable Unavailable Insurance Providers Payer name Policy type / Policy ID Covered democrat ID Policy Hol micky Coverage type MEDICARE PRIMARY MEDIC[place]: [employer] BENEFIT FUND (SECONDARY ON Encounters Encounter Performer Location Date Office Visit Francis Garcia MD [facility] [place] May 08, 2015 Cardiology Allergies, Adverse Reactions, Alerts Type Substance Reaction Status Drug allergy BACTRIM welps, itchiness Active Drug allergy TETANUS TOXOID unknown Active Problems Problem Effective Dates Problem Status CORONARY ARTERY DISEASE Active HYPERTENSION Active HYPERLIPIDEMIA Active MECHANICAL COMPLICATION DUE TO AUTOMATIC IMPLANTABLE May 04, 2015 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 PRE-OPERATIVE CARDIOVASCULAR EXAMINATION Dec 20, 2013 Inactive [...] Jul 18, 2014 smoking status Former smoker Jul 08, 2014 echocardiogram, complete Complete Oct 17, 2014 smoking status Former smoker Apr 24, 2015 echocardiogram, complete Complete May 01, 2015 smoking status Former smoker May 08, 2015 smoking status Former smoker Medications Medication Instructions Start Date Status LOVAZA 1 GM CAPS Take one tab twice daily Active ASPIRIN 81 MG TABS Take one tab by mouth every day Dec 20, 2013 Active ZOLOFT 25 MG TABS one daily Active LABETALOL HCL 200 MG TABS Take 1 tab by mouth twice daily Jun Active PLAVIX 75 MG TABS Take one tab daily (on hold) Dec 20, 2013 I nactive METOLAZONE 2.5 MG TABS 1/2 TAB PO DAILY Aug 25, 2014 Active HYDROCHLOROTHIAZIDE 25 MG TABS Take one tab daily Inactive LOTREL 5-20 MG CAPS one by mouth daily Apr 24, 2015 Active HYDROCHLOROTHIAZIDE 25 MG TABS one daily Apr 26, 2015 A ctive SPIRONOLACTONE 25 MG TABS 1 tablet daily Apr 24, 2015 Inacti ve FUROSEMIDE 40 MG TABS one by mouth daily Apr 24, 2015 Inactiv e PRAVASTATIN SODIUM 80 MG TABS one by mouth daily at bedtime Apr 30, 2015 Active TAMSULOSIN HCL 0.4 MG CAPS 1 tablet at bedtime Jul 18, 2014 A ctive TERAZOSIN HCL 10 MG CAPS Take one tab daily Inac tive Vital Signs Date Description Test Result Dec [...] - 8462-4 BP DIASTOLIC 87 mm Hg Oct 17, 2014 weight E&M - 3141-9 WEIGHT 268 lb Oct 17, 2014 temperature E&M TEMPERATURE 98.1 deg f Oct 17, 2014 blood pressure, systolic, sitting, left arm BP S YS SIT L 150 mm Hg Oct 17, 2014 blood pressure, diastolic, sitting, left arm BP KAMALJIT SIT L 87 mm Hg Oct 17, 2014 pulse rate, sitting, left PULSE SIT L 63 /mi n Oct 17, 2014 pulse rate, sitting, right PULSE SIT R 60 /m in Oct 17, 2014 blood pressure, diastolic, sitting, right arm BP KAMALJIT SIT R 89 mmHg Oct 17, 2014 blood pressure, systolic, sitting, right arm BP SYS SIT R 138 null Oct 17, 2014 blood pressure, systolic - 8480-6 BP SYSTOLIC 138 mm Hg Oct 17, 2014 pulse rate E&M - 8867-4 PULSE RATE 63 /min Oct 17, 2014 blood pressure, diastolic - 8462-4 BP DIASTOLIC 89 mm Hg Apr 17, 2015 weight E&M - 3141-9 WEIGHT 267 lb Apr 24, 2015 weight E&M - 3141-9 WEIGHT 271 lb Apr 24, 2015 pulse rate, sitting, left PULSE SIT L 60 /mi n Apr 24, 2015 pulse rate, sitting, right PULSE SIT R 60 /m in Apr 24, 2015 blood pressure, systolic, sitting, left arm BP S YS SIT L 171 mm Hg Apr 24, 2015 blood pressure, diastolic, sitting, left arm BP KAMALJIT SIT L 109 mm Hg Apr 24, 2015 blood pressure, systolic, sitting, right arm BP SYS SIT R 171 null Apr 24, 2015 blood pressure, diastolic, sitting, right arm BP KAMALIJT SIT R 104 mmHg Apr 24, 2015 temperature E&M TEMPERATURE 97.9 deg f Apr 24, 2015 blood pressure, systolic - 8480-6 BP SYSTOLIC 171 mm Hg Apr 24, 2015 pulse rate E&M - 8867-4 PULSE RATE 60 /min Apr 24, 2015 blood pressure, diastolic - 8462-4 BP DIASTOLIC 104 mm Hg May 01, 2015 weight E&M - 3141-9 WEIGHT 270 lb May 01, 2015 temperature E&M TEMPERATURE 98.0 deg f May 01, 2015 blood pressure, systolic, sitting, right arm BP SYS SIT R 143 null May 01, 2015 blood pressure, diastolic, sitting, right arm BP KAMALJIT SIT R 80 mmHg May 01, 2015 pulse rate, sitting, right PULSE SIT R 60 /m in May 01, 2015 blood pressure, systolic - 8480-6 BP SYSTOLIC 143 mm Hg May 01, 2015 pulse rate E&M - 8867-4 PULSE RATE 60 /min May 01, 2015 blood pressure, diastolic - 8462-4 BP DIASTOLIC 80 mm Hg May 08, 2015 weight E&M - 3141-9 WEIGHT 272 lb May 08, 2015 temperature E&M TEMPERATURE 97.8 deg f May 08, 2015 blood pressure, systolic, sitting, right arm BP SYS SIT R 140 null May 08, 2015 blood pressure, diastolic, sitting, right arm BP KAMALJIT SIT R 86 mmHg May 08, 2015 blood pressure, systolic, sitting, left arm BP S YS SIT L 138 mm Hg May 08, 2015 blood pressure, diastolic, sitting, left arm BP KAMALJIT SIT L 74 mm Hg May 08, 2015 pulse rate, sitting, right PULSE SIT R 67 /m in May 08, 2015 blood pressure, systolic - 8480-6 BP SYSTOLIC 140 mm Hg May 08, 2015 pulse rate E&M - 8867-4 PULSE RATE 67 /min May 08, 2015 blood pressure, diastolic - 8462-4 BP DIASTOLIC 86 mm Hg Results Date Description Test Name Value Reference Interpretation Sta tus Jul 07, hemoglobin, blood HGB 14.1 g/dL 12.3-17.3 2013Jul 07, hematocrit, blood HCT 41.2 % 36.7-50.5 2013Apr 24, hemoglobin, blood HGB 14.7 g/dL 12.3-17.3 2014Apr 24, hematocrit, blood HCT 43.9 % 36.7-50.5 2014Sep 16, prostate specific PSA 1.45 ng/mL 2009Jul 07, sodium, serum SODIUM 141 mmol/L [phone] Jul 07, potassium, serum POTASSIUM 3.8 mmol/L 3.3-5.0 2013Jul 07, urea nitrogen, blood BUN 15 mg/dL -2013Jul 07, creatinine, serum CREATININE 0.96 mg/dL 0.46-1.20 2013Jul 07, calcium, serum CALCIUM 10.1 mg/dL 8.6-9.8 High 2013Sep 09, sodium, serum SODIUM 144 mmol/L 135-143 High 2013Sep 09, potassium, serum POTASSIUM 3.6 mmol/L 3.3-5.0 2013Sep 09, urea nitrogen, blood BUN 19 mg/dL -2013Sep 09, creatinine, serum CREATININE 1.09 mg/dL 0.46-1.20 2013Sep 09, calcium, serum CALCIUM 10.8 mg/dL 8.6-9.8 High 2013Apr 24, sodium, serum SODIUM 139 mmol/L [phone] Apr 24, potassium, serum POTASSIUM 3.5 mmol/L 3.3-5.0 2014Apr 24, urea nitrogen, blood BUN 21 mg/dL -2014Apr 24, creatinine, serum CREATININE 0.97 mg/dL 0.46-1.20 2014Apr 24, calcium, serum CALCIUM 10.1 mg/dL 8.6-9.8 High 2014Apr 24, cholesterol, serum CHOLESTEROL 179 mg/dl [phone] Apr 24, HDL cholesterol, HDL 45 mg/dl 26-62 2014Apr 24, LDL cholesterol, LDL 119 mg/dl 0-130 2014Apr 24, albumin, serum ALBUMIN 4.4 g/dL 3.5-5.0 2014Apr 24, alkaline phosphatase, ALK PHOS 59 U/L 32-96 2014Apr 24, aspartate SGOT (AST) 24 U/L 10-42 2014 aminotransferase (SGOT), serum Apr 24, alanine SGPT (ALT) 20 U/L -43 2014 aminotransferase (SGPT), serum Apr 24, magnesium, serum MAGNESIUM 1.9 mg/dL 1.9-2.5 2014May 01, sodium, serum SODIUM 139 mmol/L [phone] May 01, potassium, serum POTASSIUM 3.3 mmol/L 3.3-5.0 2014May 01, urea nitrogen, blood BUN 28 mg/dL -22 High 2014May 01, creatinine, serum CREATININE 1.01 mg/dL 0.46-1.20 2015 Bennie 06, calcium, serum CALCIUM 9.9 mg/dL 8.6-9.8 High 2014Apr 24, international INR 1.05 null 0.8-1.5 2014 normalized ratio (INR) Apr 24, PTT patient PTT PATIENT 27.6 s 22.0-36.0 2014
--- OUTSIDE RECORDS SUMMARY | 2020-03-08 06:46 | XMS REPORT | Continuity of Care Document ---
:1945 Author Organization [facility] Care Team Providers Name Role Phone KAY Francis Anne Unavailable Unavailable Insurance Providers Payer name Policy type / Policy ID Covered libertarian ID Policy Hol micky Coverage type MEDICARE PRIMARY MEDIC[place]: [employer] BENEFIT FUND (SECONDARY ON Encounters Encounter Performer Location Date Lab Report Dolly Francis APRN [facility] May 04, 2014 Allergies, Adverse Reactions, Alerts Type Substance Reaction Status Drug allergy BACTRIM Active Drug allergy TETANUS TOXOID Active Problems Problem Effective Dates Problem Status CORONARY ARTERY DISEASE Active HYPERTENSION Active HYPERLIPIDEMIA Active PACEMAKER, PERMANENT Aug 03, 2012 Active PRE-OPERATIVE CARDIOVASCULAR EXAMINATION Dec 20, 2013 Active ATRIOVENTRICULAR BLOCK, COMPLETE Dec 20, 2013 Active DYSPNEA ON EXERTION Active Procedures Date Description Comments Aug 03, 2012 smoking status former smoker Dec 20, 2013 smoking status former smoker Medications Medication Instructions Start Date Status PRAVASTATIN SODIUM 40 MG TABS Take two tabs by mouth once daily Active SERTRALINE HCL 50 MG TABS Take one tab daily Act [place]ur[place] TERAZOSIN HCL 10 MG CAPS Take one tab daily Acti ve LOVAZA 1 GM CAPS Take one tab twice daily Active LOTREL 10-40 MG CAPS Take one tab daily Active HYDROCHLOROTHIAZIDE 25 MG TABS Take one tab daily Active LABETALOL HCL 200 MG TABS Take 1/2 tab by mouth twice daily Active PLAVIX 75 MG TABS Take one tab daily (on hold) Dec 20, 2013 A ctive ASPIRIN 81 MG TABS Take one tab by mouth every day Dec 20, 2013 Active (on hold) Vital Signs Date Description Test Result Dec 20, 2013 weight E&M WEIGHT 271 lb Dec 20, 2013 height E&M HEIGHT 72 in Dec 20, 2013 blood pressure, systolic, sitting, left arm BP S YS SIT L 130 mm Hg Dec 20, 2013 blood pressure, diastolic, sitting, left arm BP KAMALJIT SIT L 80 mm Hg Dec 20, 2013 pulse rate, sitting, left PULSE SIT L 60 /mi n Dec 20, 2013 blood pressure, systolic BP SYSTOLIC 130 mm Hg Dec 20, 2013 pulse rate E&M PULSE RATE 60 /min Dec 20, 2013 blood pressure, diastolic BP DIASTOLIC 80 mm Hg Results Date Description Test Name Value Reference Interpretation [facility] Sep 16, 2010 prostate specific PSA 1.45 ng/mL antigen
--- OUTSIDE RECORDS SUMMARY | 2020-03-08 06:46 | XMS REPORT | Continuity of Care Document ---
:1945 Author Organization [employer] Care Team Providers Name Role Phone [employer] Unavailable Un available Problems Problem Status Onset Classification Date Comments Sourc e Date Reported NON CAPTURED Active PACEMAKER 020 [place] MECHANICAL Active Condition 05/08/2015 Medic al COMPLICATION DUE TO 015 Group AUTOMATIC IMPLANTABLE CARDIAC DEFIBRILLATOR CARDIOMYOPATHY Active Condition 05/08/2015 [facility] edical 014 Group Cardiomyopathy Active Problem 12/30/2019 Data migra alex from [facility] on 05/31/15. Medical (disorder) 014 Data migrated from [facility] on 03/25/15. Group,[facility] ASBESTOSIS Active Condition 05/08/2015 Medic al 014 Group BODY MASS INDEX Active Condition 05/08/2015 Medical 37.0-37.9, ADULT 014 [place] up Asbestosis Active Problem 12/30/2019 Data Medic al (disorder) 014 migrated Group, from [employer] on 03/25/15. Body mass index 30+ Active Problem 12/30/2019 Data Medical - obesity (finding) 014 migrated Group, from [employer] [facility] [place] on 03/25/15. Discharge 05/06/2014 [place] Diagnosis: 014 [place] Dizziness DIZZINESS Active [place] 014 [place] PRE-OPERATIVE Inactive Condition 05/08/2015 [facility] dical CARDIOVASCULAR 014 Group EXAMINATION ATRIOVENTRICULAR Active Condition 05/08/2015 Medical BLOCK, COMPLETE 014 Grou p Complete Active Problem 12/30/2019 Data migrated from [employer] on 05/31/15. Medical atrioventricular 014 Data migrated from [employer] on 03/25/15. Group, block (disorder) [place] Preoperative Resolved Problem 12/30/2019 Data migrate d from [employer] on 05/13/15. Medical cardiovascular 014 Data migrated f rom [employer] on 05/12/15. Group, examination s t (procedure) Patient with Resolved Problem 12/30/2019 Data migrate d from [employer] on 05/31/15. Medical cardiac pacemaker 012 Data migrate d from [employer] on 05/03/15. Group, (finding) [facility] PACEMAKER, Active Condition 05/01/2015 Medic al PERMANENT 007 Group CORONARY ARTERY Active Condition 05/08/2015 Medical DISEASE Group HYPERTENSION Active Condition 05/08/2015 Med ical Group HYPERLIPIDEMIA Active Condition 05/08/2015 M edical Group DYSPNEA ON EXERTION Active Condition 05/08/2015 Medical Group Biventricular Active Problem 12/30/2019 [facility] dical automatic Group, implantable [facility] t cardioverter defibrillator present (finding) Atherosclerosis of Active Problem 12/30/2019 Data Medical coronary artery migrated ARIANNA Rubin (disorder) from [employer] [facility] on 03/25/15. Dyspnea on exertion Active Problem 12/30/2019 Data migrated from [employer] on 05/31/15. Medical (finding) Data migrated from [employer] on 03/25/15. Group,[facility] Essential Active Problem 12/30/2019 Medica l hypertension Group,M H (disorder) [place] ,[facility] Hypertensive Resolved Problem 12/30/2019 Med ical disorder, systemic [place], arterial (disorder) [place],[facility] Hyperlipidemia Active Problem 12/30/2019 Data migra alex from [employer] on 05/31/15. Medical (disorder) Data migrated from [employer] on 03/25/15. Group, [place] Rhythm from Resolved Problem 12/30/2019 Medi yoana artificial pacing Gr oup, (finding) [place], [facility] ILLNESS, Active UNSPECIFIED [facility] Medications Medication Details Route Status Patient Ordering Order Source Instructions Provider Date Aspirin 81 MG Enteric 81 mg = 1 Active 12/15/ Coated Tablet tab, PO, 2019 [facility] Daily, 0 Refill(s) pravastatin 20 mg 80 mg = 4 Active 12/15/ oral tablet tab, PO, 2019 [facility] Bedtime, 0 Refill(s) sertraline 25 mg oral 50 mg = 2 Active tablet tab, PO, 2019 [facility] Daily, 0 Refill(s) tamsulosin 0.4 mg 0.4 mg = 1 oral capsule cap, PO, 2019 [facility] Bedtime, 0 Refill(s) Acetaminophen 325 MG 100.4 F, 0 Oral Tablet Refill(s) 2019 [facility] amLODIPine 5 mg oral 5 mg = 1 tablet tab, PO, 2019 [facility] Daily, 0 Refill(s) cyclobenzaprine 10 mg 10 mg = 1 Active oral tablet tab, PO, 2019 [facility] Q8H, PRN Muscle Spasms, 0 Refill(s) Docusate Sodium 100 100 mg = 1 H MG Oral Capsule cap, PO, 2019 [facility] BID, 0 Refill(s) Furosemide 40 MG Oral 40 mg = 1 Tablet tab, PO, 2019 [facility] Daily, 0 Refill(s) lisinopril 20 mg oral 20 mg = 1 tablet tab, PO, 2019 [facility] Daily, 0 Refill(s) metoprolol tartrate 25 mg = 1 25 mg oral tablet tab, PO, 2019 [facility] Q12H, 0 Refill(s) metroNIDAZOLE 500 mg = Active intravenous solution 100 mL, 2019 [facility] IVPB, ABXQ8H, 0 Refill(s) ondansetron 2 mg/mL 4 mg = 2 injectable solution mL, IVP, 2019 [facility] Q8H, PRN Nausea & Vomiting, 0 Refill(s) tramadol 50 mg = 1 Active hydrochloride 50 MG tab, PO, 2019 [facility] Oral Tablet Q6H, PRN Pain Score 1-3, 0 Refill(s) cefepime Notes: No Longer (Same As: 2019 [facility] Maxipime) MEDICATION WASTE Product Size: 1000 mg Product Wasted: ___ mg Flagyl Notes: No Longer (Same as: 2019 [facility] Flagyl) Avoid alcohol. Tylenol Notes: Do No Longer not exceed [address] 4 gm/day. (Same as: Tylenol) Potassium Chloride Notes: Inactive (Same as: 2019 [facility] ) "Do Not Crush" Give with food and full glass of water For patients unable to swallow tablet, dissolve in one half glass of water. Allow about 2 minutes for the tablets to disintegrat e. Stir before giving to prepare slurry and administer. Please exclude Patient&#82 17;s with feeding tube less than 14 [place] (Dobhoff, J-tube etc) and pediatric and patients. Potassium Chloride Notes: Inactive (Same as: [facility] ) "Do Not Crush" Give with food and full glass of water For patients unable to swallow tablet, dissolve in one half glass of water. Allow about 2 minutes for the tablets to disintegrat e. Stir before giving to prepare slurry and administer. Please exclude Patient&#82 17;s with feeding tube less than 14 [place] (Dobhoff, J-tube etc) and pediatric and patients. Lasix Notes: No Longer (Same as: 2019 [facility] Lasix) May cause GI upset. Give with food or milk. Potassium Chloride Notes: Inactive (Same as: 2019 [facility] ) "Do Not Crush" Give with food and full glass of water For patients unable to swallow tablet, dissolve in one half glass of water. Allow about 2 minutes for the tablets to disintegrat e. Stir before giving to prepare slurry and administer. Please exclude Patient&#82 17;s with feeding tube less than 14 [place] (Dobhoff, J-tube etc) and pediatric and patients. tramadol Notes: Not No Longer hydrochloride 50 MG to exceed Active 2019 [facility] Oral Tablet 400mg/day. (Same As: Ultram) Flexeril Notes: No Longer (Same As: 2019 [facility] Flexeril) metoprolol tartrate 25 mg, No Longer Route: PO, 2019 [facility] Drug form: TAB, BID, Dosing Weight 122.955, kg, Start date: 12/12/19 9:00:00 DOOR PERSON, Duration: 30 day, Stop date: 01/10/20 17:00:00 CDT metoprolol tartrate Notes: No Longer (Same as: 2019 [facility] Lopressor) Pravastatin Notes: No Longer (Same as: 2019 [facility] Pravachol) tamsulosin Notes: No Longer (Same As: 2019 [facility] Flomax) "Do Not Crush" Lasix Notes: Inactive (Same as: 2019 [facility] Lasix) MEDICATION WASTE Product Size: 40 mg Product Wasted: ___ mg Amlodipine 5 MG / 1 cap, No Longer Benazepril Route: PO, 2019 [facility] hydrochloride 20 MG Drug Form: Oral Capsule CAP, Dosing Weight 122.955, kg, Daily, Start date: 12/11/19 9:00:00 DOOR PERSON, Duration: 30 day, Stop date: 01/09/20 9:00:00 CDT Aspirin 81 MG Enteric Notes: Do No Longer Coated Tablet not crush [facility] or chew. (Same As: Ecotrin) Sertraline Notes: No Longer (Same as: 2019 [facility] Zoloft) Docusate Notes: No Longer (Same as: 2019 [facility] Colace) (Do Not Crush) amLODIPine Notes: No Longer (Same as: 2019 [facility] Norvasc) lisinopril Notes: No Longer (Same as: 2019 [facility] Prinivil, Zestril) Acetaminophen 325 MG Notes: No Longer H / Hydrocodone (Same as: 2019 [facility] Bitartrate 5 MG Oral Louisa Tablet [Louisa 5/325] 325/5) Do not exceed 4gm/day of acetaminoph en. Dextrose 50% Syringe 12.5 gm, 25 No Longer 12/11 (D50W) mL, Route: 2019 [facility] IVP, Drug Form: INJ, Dosing Weight 122.955, kg, PRN, PRN Blood Glucose Results, Start date: 12/10/19 22:10:00 DOOR PERSON, Duration: 30 day, Stop date: 01/09/20 23:09:00 CDT, 0 Glucagon 1 mg, No Longer Route: IM, 2019 [facility] Drug form: PDR/INJ, PRN, Dosing Weight 122.955, kg, PRN Blood Glucose Results, Start date: 12/10/19 22:10:00 DOOR PERSON, Duration: 30 day, Stop date: 01/09/20 23:09:00 CDT, 0 Ondansetron Notes: No Longer (Same as: 2019 [facility] Zofran) MEDICATION WASTE Product Size: 4 mg Product Wasted: ___ mg BD Normal Saline Notes: Same No Longer H Flush as: BD 2019 [facility] Posiflush Sterile Sodium Chloride 0.9% 250 mL, No Longer H IV Route: 2019 [facility] IVPB, Start date: 12/10/19 21:33:00 DOOR PERSON, Duration: 30 day, Stop date: 01/09/20 22:32:00 CDT, PRN Line Flush, 0 Cephalexin 500 MG 500 mg = 1 Active Medical Oral Capsule [Keflex] cap, PO, 2019 [place] QID, X 7 day, # 28 cap, 0 Refill(s), [facility]: [id number] Metolazone 2.5 MG 2.5 mg = 1 Active Medical Oral Tablet tab, PO, 2018 Group Daily, # 30 tab, 3 Refill(s), Pharmacy: [id number] Metolazone 2.5 MG 2.5 mg = 1 No Longer M H Medical Oral Tablet tab, PO, Active 2018 Group Daily, # 30 tab, 3 Refill(s), Pharmacy: [id number] Metolazone 2.5 MG 2.5 mg = 1 Active Medical Oral Tablet tab, PO, 2018 Group Daily, # 30 tab, 6 Refill(s), Pharmacy: [id number] labetalol 100 mg oral 100 mg = 1 Active Medical tablet tab, PO, 2018 Group BID, # 60 tab, 3 Refill(s), other magnesium oxide 400 400 mg = 1 Active H Medical mg oral tablet tab, PO, 2018 Group BID, 0 Refill(s) Hydrochlorothiazide 25 mg, PO, Active H Medical Daily, 0 2018 Group Refill(s) Garlic Oil oral 1,000 mg =, Active M edical capsule PO, Daily, 2017 Group TAKES 1-2 TABLET, 0 Refill(s) Naproxen sodium 220 220 mg = 1 Active H Medical MG Oral Capsule cap, PO, 2017 Group [Aleve] PRN, 0 Refill(s) TERAZOSIN HCL 10 MG Take one No Longer 05/08/ M H Medical CAPS tab daily Active 2014 Group PRAVASTATIN SODIUM 80 one by Active Medical MG TABS mouth daily 2014 Group at bedtime HYDROCHLOROTHIAZIDE one daily Active Medical 25 MG TABS 2014 Group HYDROCHLOROTHIAZIDE one daily Active Medical 25 MG TABS 2014 Group LOTREL 10-40 MG CAPS Take one Active Medical tab daily 2014 Group SPIRONOLACTONE 25 MG 1 tablet No Longer Medical TABS daily Active 2014 Group FUROSEMIDE 40 MG TABS one by Inactive M H Medical mouth daily 2014 Group LOTREL 5-20 MG CAPS one by Active [facility] edical mouth daily 2014 Group SPIRONOLACTONE 25 MG 1 tablet No Longer Medical TABS daily Active 2014 Group FUROSEMIDE 40 MG TABS one by Inactive H Medical mouth daily 2014 Group METOLAZONE 2.5 MG 1/2 TAB PO Active Medical TABS DAILY 2013 Group HYDROCHLOROTHIAZIDE Take one No Longer 08/25/ M H Medical 25 MG TABS tab daily Active 2013 Group METOLAZONE 2.5 MG 1/2 TAB PO Active Medical TABS DAILY 2013 Group METOLAZONE 2.5 MG 1/2 TAB PO Active Medical TABS DAILY 2013 Group HYDROCHLOROTHIAZIDE Take one No Longer 08/25/ M H Medical 25 MG TABS tab daily Active 2013 Group TAMSULOSIN HCL 0.4 MG 1 tablet at Active Medical CAPS bedtime 2013 Group LABETALOL HCL 200 MG Take 1 tab Active Medical TABS by mouth 2013 Group twice daily LABETALOL HCL 200 MG Take 1 tab Active Medical TABS by mouth 2013 Group twice daily tamsulosin 0.4 mg 0 Refill(s) Active [place] oral capsule 2013 [place] sertraline 25 mg oral 0 Refill(s) Active [place] tablet 2013 [place] pravastatin 80 mg 0 Refill(s) Active [place] oral tablet 2013 [place] Lov[place] 0 Refill(s) Active [place] 2013 [place] labetalol 200 mg oral 0 Refill(s) Active [place] tablet 2013 [place] Hydrochlorothiazide 0 Refill(s) Active [place] 2013 [place] Aspirin 81 MG Enteric 0 Refill(s) Active [place] Coated Tablet 2013 [place] Amlodipine 5 MG / 0 Refill(s) Active [place] Benazepril 2013 [place] hydrochloride 20 MG Oral Capsule Aleve 0 Refill(s) Active [place] 2013 [place] Saline Flush 0.9% Notes: Inactive [place] [facility] (Same as: 2013 [place] BD Posiflush) ASPIRIN 81 MG TABS Take one Active 12/20/ MH M edical tab by 2013 Group mouth every day PLAVIX 75 MG TABS Take one No Longer 12/20/ Medical tab daily Active 2013 Group (on hold) PLAVIX 75 MG TABS Take one No Longer 12/20/ Medical tab daily Active 2013 Group (on hold) PRAVASTATIN SODIUM 40 Take two Active M H Medical MG TABS tabs by Group mouth once daily TERAZOSIN HCL 10 MG Take one Active MH Medical CAPS tab daily Group LOVAZA 1 GM CAPS Take one Active MH Med ical tab twice Group daily LOTREL 10-40 MG CAPS Take one Active MH Medical tab daily Group HYDROCHLOROTHIAZIDE Take one Active MH Medical 25 MG TABS tab daily Group ZOLOFT 25 MG TABS one daily Active M edical Group SERTRALINE HCL 50 MG Take one Active MH Medical TABS tab daily Group LOVAZA 1 GM CAPS Take one Active MH Med ical tab twice Group daily LABETALOL HCL 200 MG Take 1/2 Active Medical TABS tab by Group mouth twice daily LOTREL 10-40 MG CAPS Take one Active MH Medical tab daily Group Allergies, Adverse Reactions, Alerts Substance Category Reaction Severity Reaction Status Date Comments S ource type Reported BACTRIM Drug BACTRIM MH allergy Medical Group TETANUS Drug TETANUS TOXOID allergy TOXOID Medical Group sulfamethox Assertion Itching Drug Active Data azole-trime allergy migrated Med ical thoprim<sup from [employer] Grou p >1</sup> [employer] on 02/24/15. Originally documented as BACTRIM. welps, itchiness tetanus Assertion Unsure Drug Active Data toxoid<sup> allergy migrated Med ical 2</sup> from [employer] on 02/24/15. Originally documented as TETANUS TOXOID. unknown Bactrim Assertion Rash Drug Active allergy Medical Group Immunizations Immunization Date Given Site Status Last Updated Comments [facility] r[facility] pneumococcal 12/15/2019 Not Given Med ical 13-valent vaccine Gr oup, [place] influenza virus 12/15/2019 Not Given Medical vaccine, Group, inactivated [place] t Results Order Name Results Value Reference Date Interpretation Comments [facility] Range CHEM PANEL Glucose Lvl 109 70 - 99 12/13 [place] CHEM PANEL BUN 36 7 - 22 12/13 [place] CHEM PANEL Creatinine 1.20 0.50 - 12/13 Lvl 1.40 [place] CHEM PANEL Sodium Lvl 134 135 - 145 12/13 [place] CHEM PANEL Potassium 3.2 3.5 - 5.1 12/13 MH Lvl /2019 [place] CHEM PANEL Chloride Lvl 100 95 - 109 12/13 [place] CHEM PANEL CO2 25 24 - 32 12/13 [facility] CHEM PANEL Calcium Lvl 9.6 8.5 - 10.5 12/13 [facility] CHEM PANEL AGAP 12.2 10.0 - 12/13 MH 20.0 [facility] CHEM PANEL eGFR 58 12/13 Result Comment: The [facility] eGFR is calculated using the CKD-EPI formula. In most young, healthy individuals the eGFR will be >90 mL/min/1.73m2 . The eGFR declines with age. An eGFR of 60-89 may be normal in some populations, particularly the elderly, for whom the CKD-EPI formula has not been extensively validated. Use of the eGFR is not recommended in the following populations:< br/>
Megan viduals with unstable creatinine concentration s, including patients and those with serious co-morbid conditions.<b r/>
Patie nts with extremes in muscle mass or diet.

The data above are obtained from the National Kidney Disease Education Program (NKDEP) which additionally recommends that when the eGFR is used in patients with extremes of body mass index for purposes of drug dosing, the eGFR should be multiplied by the estimated BMI. CHEM PANEL Magnesium 1.9 1.8 - 2.4 / MH Lvl /2019 [facility] HEMATOLOGY WBC 12.2 3.7 - 10.4 12/13 /2019 [facility] HEMATOLOGY RBC 4.03 4.70 - 12/13 MH 6.10 [facility] HEMATOLOGY Hgb 11.9 14.0 - 12/13 MH 18.0 /2019 [facility] HEMATOLOGY Hct 35.8 42.0 - 12/13 MH 54.0 /2019 [facility] HEMATOLOGY MCV 89.0 80.0 - 12/13 MH 94.0 /2019 [facility] HEMATOLOGY MCH 29.6 27.0 - 12/13 MH 31.0 /2019 [facility] MCHC 33.2 32.0 - 12/13 MH 36.0 /2019 [facility] HEMATOLOGY RDW 14.9 11.5 - 12/13 MH 14.5 [facility] HEMATOLOGY Platelet 105 133 - 450 12/13 /2019 [facility] HEMATOLOGY MPV 9.7 7.4 - 10.4 12/13 /2019 [facility] HEMATOLOGY Segs 86.4 45.0 - 12/13 MH 75.0 [facility] HEMATOLOGY Lymphocytes 7.3 20.0 - 12/13 MH 40.0 [facility] HEMATOLOGY Monocytes 5.1 2.0 - 12.0 12/13 /2019 [facility] HEMATOLOGY Eosinophils 0.2 0.0 - 4.0 12/13 /2019 [facility] HEMATOLOGY Basophils 1.0 0.0 - 1.0 12/13 /2019 [facility] HEMATOLOGY Neutrophils 10.5 1.5 - 8.1 12/13 MH # /2019 [facility] HEMATOLOGY Lymphocytes 0.9 1.0 - 5.5 12/13 MH # /2019 [facility] HEMATOLOGY Monocytes # 0.6 0.0 - 0.8 12/13 /2019 [facility] HEMATOLOGY Basophils # 0.1 0.0 - 0.2 12/13 /2019 [facility] SPECIAL Hgb A1C 5.4 <=5.6 % 12/13 CHEMISTRY /2019 [facility] CHEM PANEL Glucose Lvl 120 70 - 99 12/12 /2019 [facility] CHEM PANEL BUN 37 7 - 22 12/12 [facility] CHEM PANEL Creatinine 1.20 0.50 - 12/12 MH Lvl 1.40 [facility] CHEM PANEL Sodium Lvl 135 135 - 145 12/12 [facility] CHEM PANEL Potassium 2.7 3.5 - 5.1 12/12 Result MH Lvl /2019 Comment: [facility] Critical Result(s) called Beatris _ at 12/12/2019 16:50 by js. Read back OK. CHEM PANEL Chloride Lvl 100 95 - 109 12/12 [facility] CHEM PANEL CO2 31 24 - 32 12/12 [facility] CHEM PANEL AGAP 6.7 10.0 - 12/12 MH 20.0 [facility] CHEM PANEL Calcium Lvl 9.4 8.5 - 10.5 12/12 [facility] CHEM PANEL eGFR 58 12/12 Result Comment: The [facility] eGFR is calculated using the CKD-EPI formula. In most young, healthy individuals the eGFR will be >90 mL/min/1.73m2 . The eGFR declines with age. An eGFR of 60-89 may be normal in some populations, particularly the elderly, for whom the CKD-EPI formula has not been extensively validated. Use of the eGFR is not recommended in the following populations:< br/>
Megan viduals with unstable creatinine concentration s, including patients and those with serious co-morbid conditions.<b r/>
Patie nts with extremes in muscle mass or diet.

The data above are obtained from the National Kidney Disease Education Program (NKDEP) which additionally recommends that when the eGFR is used in patients with extremes of body mass index for purposes of drug dosing, the eGFR should be multiplied by the estimated BMI. CHEM PANEL Ammonia 14.0 <=45.0 12/12 MH uMol/L /2019 [facility] HEMATOLOGY WBC 11.3 3.7 - 10.4 12/12 [facility] HEMATOLOGY RBC 4.04 4.70 - 12/12 MH 6.10 [facility] HEMATOLOGY Hgb 11.9 14.0 - 12/12 MH 18.0 [facility] HEMATOLOGY Hct 35.9 42.0 - 12/12 MH 54.0 [facility] HEMATOLOGY MCV 88.8 80.0 - 12/12 MH 94.0 [facility] HEMATOLOGY MCH 29.5 27.0 - 12/12 MH 31.0 [facility] HEMATOLOGY MCHC 33.2 32.0 - 12/12 MH 36.0 [facility] HEMATOLOGY RDW 14.7 11.5 - 12/12 MH 14.5 [facility] HEMATOLOGY Platelet 123 133 - 450 12/12 [facility] HEMATOLOGY MPV 9.8 7.4 - 10.4 12/12 [facility] HEMATOLOGY RBC Morph Normal Normal 12/12 (12/12/19 3:50 PM) /2019 [facility] est HEMATOLOGY Plt Morph Normal Normal 12/12 (12/12/19 3:50 PM) /2019 [facility] est HEMATOLOGY Segs 84.7 45.0 - 12/12 MH 75.0 /2019 [facility] HEMATOLOGY Lymphocytes 7.4 20.0 - 12/12 MH 40.0 /2019 [facility] HEMATOLOGY Monocytes 7.6 2.0 - 12.0 12/12 [facility] HEMATOLOGY Eosinophils 0.3 0.0 - 4.0 12/12 [facility] HEMATOLOGY Basophils 0.0 0.0 - 1.0 12/12 [facility] HEMATOLOGY Neutrophils 9.6 1.5 - 8.1 12/12 MH # /2019 [facility] HEMATOLOGY Lymphocytes 0.8 1.0 - 5.5 12/12 MH # /2019 [facility] HEMATOLOGY Monocytes # 0.9 0.0 - 0.8 12/12 [facility] HEMATOLOGY Eosinophils 0.0 0.0 - 0.5 12/12 MH # /2019 [facility] HEMATOLOGY Basophils # 0.0 0.0 - 0.2 12/12 [facility] Culture: No Growth 12/12 Urine [facility] URINE AND UA Turbidity Slight Clear 12/12 STOOL *ABN* [facility] (12/11/19 8:55 PM) URINE AND UA Spec Grav 1.010 <=1.030 12/12 STOOL [facility] URINE AND UA pH 5.0 5.0 - 8.0 12/12 STOOL [facility] URINE AND UA Protein Negative Negative 12/12 STOOL mg/dL mg/dL [facility] URINE AND UA Glucose Negative Negative 12/12 STOOL mg/dL mg/dL [facility] URINE AND UA Ketones Trace Negative 12/12 STOOL mg/dL mg/dL [facility] URINE AND UA Bili Negative Negative 12/12 STOOL *NA* [facility] (12/11/19 8:55 PM) URINE AND UA Blood Large Negative 12/12 STOOL *ABN* [facility] (12/11/19 8:55 PM) URINE AND UA 4.0 0.1 - 1.0 12/12 STOOL Urobilinogen [facility] URINE AND UA Nitrite Negative Negative 12/12 STOOL (12/11/19 8:55 PM) [facility] est URINE AND UA Leuk Est Negative Negative 12/12 STOOL (12/11/19 8:55 PM) [facility] est URINE AND UA WBC 14 0 - 5 12/12 STOOL [facility] URINE AND UA RBC >182 0 - 2 12/12 STOOL [facility] URINE AND UA Bacteria Occasional None Seen 12/12 STOOL /HPF /HPF [facility] URINE AND UA Mucus Few /LPF None Seen 12/12 STOOL /LPF [facility] URINE AND UA Hyal Cast 1 0 - 2 12/12 STOOL [facility] URINE AND UA Sq Epi None Seen 12/12 STOOL [facility] URINE AND UA Color Yellow 12/12 STOOL [facility] CARDIAC BNP 705 <=100 12/11 ENZYMES pg/mL [facility] CHEM PANEL Glucose Lvl 92 70 - 99 12/11 [facility] CHEM PANEL BUN 29 7 - 22 12/11 [facility] CHEM PANEL Creatinine 1.00 0.50 - 12/11 Lvl 1.40 [facility] CHEM PANEL Sodium Lvl 138 135 - 145 12/11 MH [facility] CHEM PANEL Potassium 3.6 3.5 - 5.1 12/11 Lvl /2019 [facility] CHEM PANEL Chloride Lvl 107 95 - 109 12/11 [facility] CHEM PANEL CO2 21 24 - 32 12/11 MH [facility] CHEM PANEL Calcium Lvl 9.8 8.5 - 10.5 12/11 [facility] CHEM PANEL Total 5.8 6.4 - 8.4 12/11 Protein [facility] CHEM PANEL Albumin Lvl 2.3 3.5 - 5.0 12/11 [facility] CHEM PANEL ALT 34 0 - 65 12/11 MH [facility] CHEM PANEL AST 50 0 - 37 12/11 MH [facility] CHEM PANEL Alk Phos 73 39 - 136 12/11 MH [facility] CHEM PANEL Bili Total 1.2 0.2 - 1.3 12/11 MH [facility] CHEM PANEL AGAP 13.6 10.0 - 02 MH 20.0 /2019 [facility] CHEM PANEL B/C Ratio 29 6 - 25 12/11 MH [facility] CHEM PANEL Globulin 3.5 2.7 - 4.2 12/11 [facility] CHEM PANEL A/G Ratio 0.7 0.7 - 1.6 12/11 [facility] CHEM PANEL eGFR 73 12/11 Result Comment: The [facility] eGFR is calculated using the CKD-EPI formula. In most young, healthy individuals the eGFR will be >90 mL/min/1.73m2 . The eGFR declines with age. An eGFR of 60-89 may be normal in some populations, particularly the elderly, for whom the CKD-EPI formula has not been extensively validated. Use of the eGFR is not recommended in the following populations:< br/>
Megan viduals with unstable creatinine concentration s, including patients and those with serious co-morbid conditions.<b r/>
Patie nts with extremes in muscle mass or diet.

The data above are obtained from the National Kidney Disease Education Program (NKDEP) which additionally recommends that when the eGFR is used in patients with extremes of body mass index for purposes of drug dosing, the eGFR should be multiplied by the estimated BMI. HEMATOLOGY WBC 7.8 3.7 - 10.4 12/11 [facility] HEMATOLOGY RBC 3.88 4.70 - 12/11 MH 6.10 /2019 [facility] HEMATOLOGY Hgb 11.6 14.0 - 12/11 MH 18.0 [facility] HEMATOLOGY Hct 35.3 42.0 - 12/11 MH 54.0 [facility] HEMATOLOGY MCV 91.0 80.0 - 12/11 MH 94.0 [facility] HEMATOLOGY MCH 30.0 27.0 - 12/11 MH 31.0 /2019 [facility] HEMATOLOGY MCHC 33.0 32.0 - 12/11 MH 36.0 [facility] HEMATOLOGY RDW 14.7 11.5 - 12/11 MH 14.5 /2020 [facility] HEMATOLOGY Platelet 117 133 - 450 12/11 [facility] HEMATOLOGY MPV 10.1 7.4 - 10.4 12/11 [facility] HEMATOLOGY Segs 81.9 45.0 - 02 MH 75.0 /2019 [facility] HEMATOLOGY Lymphocytes 10.8 20.0 - 12/11 MH 40.0 /2019 [facility] HEMATOLOGY Monocytes 6.9 2.0 - 12.0 12/11 [facility] HEMATOLOGY Eosinophils 0.2 0.0 - 4.0 12/11 [facility] HEMATOLOGY Basophils 0.2 0.0 - 1.0 12/11 [place] HEMATOLOGY Neutrophils 6.4 1.5 - 8.1 12/11 [place] HEMATOLOGY Lymphocytes 0.8 1.0 - 5.5 12/11 [facility] HEMATOLOGY Monocytes # 0.5 0.0 - 0.8 12/11 [place] HEMATOLOGY Eosinophils 0.0 0.0 - 0.5 12/11 [place] HEMATOLOGY Basophils # 0.0 0.0 - 0.2 12/11 [place] Chemistry SODIUM 139 135 - 143 05/01 Group Chemistry POTASSIUM 3.3 3.3 - 5.0 05/01 Group Chemistry BUN 28 10 - 05/01 Group Chemistry CREATININE 1.01 0.46 - 05/01 Medical 1. Group Chemistry CALCIUM 9.9 8.6 - 9.8 05/01 Group Chemistry SODIUM 139 135 - 143 04/24 Group Chemistry POTASSIUM 3.5 3.3 - 5.0 04/24 Group Chemistry BUN 21 10 - 04/24 Group Chemistry CREATININE 0.97 0.46 - 04/24 Medical . Group Chemistry CALCIUM 10.1 8.6 - 9.8 04/24 Group Chemistry CHOLESTEROL 179 120 - 200 04/24 Group Chemistry HDL 45 26 - 62 04/24 Group Chemistry LDL 119 0 - 130 04/24 Group Chemistry ALBUMIN 4.4 3.5 - 5.0 04/24 Group Chemistry ALK PHOS 59 32 - 96 04/24 Group Chemistry SGOT (AST) 24 10 - 42 04/24 Group Chemistry SGPT (ALT) 20 11 - 43 04/24 Group Chemistry MAGNESIUM 1.9 1.9 - 2.5 04/24 Group Coagulatio INR 1.05 0.8 - 1.5 04/24 Group Coagulatio PTT PATIENT 27.6 22.0 - 04/24 Medica l n 36.0 /2014 Group Coagulatio INR 1.05 0.8 - 1.5 04/24 Group Coagulatio PTT PATIENT 27.6 22.0 - 04/24 Medica l n 36.0 /2014 Group Hematology HGB 14.7 12.3 - 04/24 Medical 17. Group Hematology HCT 43.9 36.7 - 04/24 Medical 50. Group Chemistry SODIUM 144 135 - 143 09/09 Group Chemistry POTASSIUM 3.6 3.3 - 5.0 09/09 Group Chemistry SODIUM 144 135 - 143 09/09 Group Chemistry POTASSIUM 3.6 3.3 - 5.0 09/09 Group Chemistry BUN 19 10 - 22 09/09 Group Chemistry CREATININE 1.09 0.46 - 09/09 Medical 1. Group Chemistry CALCIUM 10.8 8.6 - 9.8 09/09 Group Chemistry SODIUM 141 135 - 143 07/07 Group Chemistry POTASSIUM 3.8 3.3 - 5.0 07/07 Group Chemistry SODIUM 141 135 - 143 07/07 Group Chemistry POTASSIUM 3.8 3.3 - 5.0 07/07 Group Chemistry BUN 15 10 - 22 07/07 Group Chemistry CREATININE 0.96 0.46 - 07/07 Medical 1. Group Chemistry CALCIUM 10.1 8.6 - 9.8 07/07 Group Hematology HGB 14.1 12.3 - 07/07 Medical 17. Group Hematology HCT 41.2 36.7 - 07/07 Medical 50. Group CARDIAC CK MB Index 1.3 0.0 - 2.5 05/03 [place] [facility] CARDIAC Troponin-I 0.02 0.00 - 07 [place] [facility] 0.40 /2013 [facility] CARDIAC CK MB 1.9 0.5 - 3.6 05/03 [place] [facility] CARDIAC Total CK 149 12 - 191 05/03 [place] CHEM PANEL eGFR 68 05/03 <sup>1</sup>R [place] Comment: The eGFR is calculated using the CKD-EPI formula. In most young, healthy individuals the eGFR will be >90 mL/min/1.73m2 . The eGFR declines with age. An eGFR of 60-89 may be normal in some populations, particularly the elderly, for whom the CKD-EPI formula has not been extensively validated. Use of the eGFR is not recommended in the following populations:& lt;br/>
I ndividuals with unstable creatinine concentration s, including patients and those with serious co-morbid conditions.<b r/>
Patie nts with extremes in muscle mass or diet.

The data above are obtained from the National Kidney Disease Education Program (NKDEP) which additionally recommends that when the eGFR is used in patients with extremes of body mass index for purposes of drug dosing, the eGFR should be multiplied by the estimated BMI. CHEM PANEL Sodium Lvl 142 135 - 145 / MH [place] CHEM PANEL Creatinine 1.1 0.5 - 1.4 05/03 [facility] [place] CHEM PANEL BUN 18 7 - 22 05/03 [place] CHEM PANEL Glucose Lvl 90 70 - 99 05/03 <sup>2</sup>I [facility] [place] nterpret[facility] Data: Adult reference range values reflect the clinical guidelines
of the [place] [employer]. CHEM PANEL AGAP 9.4 10.0 - 0708 MH [place] 20.0 [place] CHEM PANEL Calcium Lvl 9.5 8.5 - 10.5 / MH [place] CHEM PANEL Chloride Lvl 107 95 - 109 / [facility] [place] CHEM PANEL CO2 29 24 - 32 / MH [place] CHEM PANEL Potassium 3.4 3.5 - 5.1 /08 [facility] [place] HEMATOLOGY Basophils 0.7 0.0 - 1.0 07/08 [facility] [place] HEMATOLOGY Eosinophils 3.3 0.0 - 4.0 07/08 [facility] [place] HEMATOLOGY Monocytes 8.1 2.0 - 12.0 07/08 [facility] [place] HEMATOLOGY Lymphocytes 31.7 20.0 - 07/08 MH [place] 40.0 /2013 [place] HEMATOLOGY Segs 56.2 45.0 - 07/08 MH [place] 75.0 /2014 [place] HEMATOLOGY Basophils # 0.0 0.0 - 0.2 07/08 [facility] [place] HEMATOLOGY Eosinophils 0.2 0.0 - 0.5 07/08 MH [place] # /2013 [facility] HEMATOLOGY Monocytes # 0.5 0.0 - 0.8 07/ [place] /2013 [facility] HEMATOLOGY Lymphocytes 1.8 1.0 - 5.5 / [place] # /2013 [facility] HEMATOLOGY Segs-Bands # 3.1 1.5 - 8.1 05/03 [place] /2013 [facility] HEMATOLOGY PT 12.9 12.0 - 07/08 [place] 14.7 /2013 [facility] HEMATOLOGY INR 0.98 0.85 - 07/08 <sup>3</sup>I [place] 1.17 /2013 nterpretive [facility] Data: RECOMMENDED RANGES FOR PROTIME INR:
2.0-3.0 for most medical and surgical thromboemboli c states.
2.5-3.5 for artificial heart valves and recurrent embolism.<br/ >
INR SHOULD BE USED ONLY FOR PATIENTS ON STABLE ANTICOAGULANT THERAPY. HEMATOLOGY PTT 28.7 22.9 - 07/08 <sup>4</sup>I [place] 35.8 /2013 nterpretive [facility] Data: Heparin Therapeutic Range: 57 - 92 [facility] HEMATOLOGY Hgb 13.9 14.0 - 07/08 [place] 18.0 /2013 [facility] HEMATOLOGY MCV 91.8 80.0 - 07/08 [place] 94.0 /2013 [facility] HEMATOLOGY Hct 40.8 42.0 - 07/08 [place] 54.0 /2013 [facility] HEMATOLOGY WBC 5.6 3.7 - 10.4 /08 [place] /2013 [facility] HEMATOLOGY RBC 4.45 4.70 - /08 [place] 6.10 /2013 [facility] HEMATOLOGY MCH 31.2 27.0 - 07/08 [place] 31.0 /2013 [facility] HEMATOLOGY RDW 13.2 11.5 - 07/08 [place] 14.5 /2013 [facility] HEMATOLOGY MCHC 34.0 32.0 - 07/08 [place] 36.0 /2013 [facility] HEMATOLOGY Platelet 174 133 - 450 / Sugar [facility] HEMATOLOGY MPV 8.8 7.4 - 10.4 /08 [place] /2013 [facility] Chemistry PSA 1.45 09/16 /2009 Group Chemistry PSA 1.45 09/16 Group Chemistry PSA 1.45 09/16 Group Pathology Reports No Data Provided for This Section Diagnostic Reports Report Value Date Source Chest 1view DX PROCEDURE INFORMATION: 12/13/2019 [facility] est Exam: XR Chest, 1 View Exam date and time: 12/13/2019 2:09 PM Age: 74 years old Clinical indication: Other: Hypoxemia; Additiona l info: Hypoxemia/hypoxemia TECHNIQUE: Imaging protocol: XR of the chest Views: 1 view. COMPARISON: CHEST 1VIEW DX 12/11/2019 7:11 AM FINDINGS: Tubes, catheters and devices: Multi lead left subclavian transvenous pacemaker is in the right heart. Lungs: Mild decreased lung volumes. No right-angel ed consolidation. The retrocardiac portion of the left lung base is ob scured by atelectasis or infiltrate. Pleural space: Opacity in the left lung base is similar to previous exam. The possibility of small effusion is not excluded. N o pneumothorax. Heart/Mediastinum: Cardiac silhouette enlarged. Vasculature: Calcific atherosclerosis of the aor tic arch. Bones/joints: Unremarkable. Other findings: The patient is rotated to the le ft. Shallow inspiration. IMPRESSION: 1. Cardiomegaly. 2. Leftward rotation. 3. Persistent retrocardiac atelectasis or infilt rate on the left. Small effusion not excluded. 4. Pacemaker. Ridge Graham MD On 12/13/2019 14:47:39; VR-SSM [id number] Spine thoracolumbar 2 PROCEDURE INFORMATION: 12/11/2019 [facility] views DX Exam: XR Thoracic Spine, 2 Views Exam date and time: 12/11/2019 2:40 PM Age: 74 years old Clinical indication: /pain TECHNIQUE: Imaging protocol: XR of the thoracic spine, 2 vi ews. Views: AP and Lateral COMPARISON: No relevant prior studies available. FINDINGS: Vertebrae: Mild degenerative disc space narrowin g in several of the mid and lower thoracic disc levels. Vertebral body heigh ts are normal. No acute fracture. The pedicles and endplates are maintai dacia. Soft tissues: No widening of the paraspinous sof t tissue stripe. IMPRESSION: No acute abnormality Alonso Nick MD On 12/11/2019 18:18:18; VR-EGEIB [id number] Spine cervical series DX PROCEDURE INFORMATION: 12/11/2019 [facility] Exam: XR Cervical Spine, 2 or 3 Views Exam date and time: 12/11/2019 2:40 PM Age: 74 years old Clinical indication: /pain TECHNIQUE: Imaging protocol: XR of the cervical spine, 2 or 3 views. Views: AP Lateral Odontoid 3 views COMPARISON: No relevant prior studies available. FINDINGS: Evaluation of the lower cervical spine is very limited due to interference from the patient's shoulders. No gross malalignm ent on lateral and oblique views. Normal disc space and vertebral body heig hts see 1 through C5. IMPRESSION: Limited study, consider CT for further evaluatio n Alonso Nick MD On 12/11/2019 16:21:50; VR-EGEIB [id number] Knee 1-2 Views PROCEDURE INFORMATION: 12/11/2019 [facility] est unilateral DX Exam: XR Right Knee Exam date and time: 12/11/2019 2:40 PM Age: 74 years old Clinical indication: /pain TECHNIQUE: Imaging protocol: XR Right knee. Views: 1 or 2 views. AP and Lateral COMPARISON: No relevant prior studies available. FINDINGS: A total right knee prosthesis is noted in good alignment without loosening or fracture around the components. No evidence of k nee joint effusion. IMPRESSION: No acute finding Alonso Nick MD On 12/11/2019 15:51:54; VR-EGEIB [id number] Brain wo contrast CT Radiation Dose CTDIVOL = 0 (mGy): DLP = 958.83 (mGy-cm) 12/11/2019 [facility] PROCEDURE INFORMATION: Exam: CT Head Without Contrast Exam date and time: 12/11/2019 10:19 AM Age: 74 years old Clinical indication: Altered mental status/memor y loss; Additional info: /altered mental status. TECHNIQUE: Imaging protocol: Computed tomography of the hea d without contrast. Total DLP: 958.83 mGy-cm Radiation optimization: All CT scans at this facility use at least one of these dose optimization techniques: automated exposure control; mA and/or kV adjustment per patient size (includes targeted e xams where dose is matched to clinical indication); or iterative reconstructio n. COMPARISON: No relevant prior studies available. FINDINGS: Brain: No acute territorial infarct or i ntracranial hemorrhage. No mass effect or midline shift. Diffuse cerebral atrophy and a dvanced severe chronic small vessel ischemic change. Ventricles: No ventriculomegaly. Bones/joints: No acute displaced fracture. Sinuses: Mild mucoperiosteal thickening in the ethmoid sinus. No fluid levels. Mastoid air cells: Visualized mastoid air cells are well aerated. Soft tissues: Unremarkable. IMPRESSION: No acute territorial infarct or intracranial hem orrhage detected. COMMENT: If there is further clinical concern for intracr anial pathology, MRI of the brain may be performed for further assessment. Jake Crowe MD On 12/11/2019 10:59:18; VR-JNG [id number] Chest 1view DX PROCEDURE INFORMATION: 12/11/2019 [facility] est Exam: XR Chest, 1 View Exam date and time: 12/11/2019 7:11 AM Age: 74 years old Clinical indication: Shortness of breath; Additi onal info: /sob TECHNIQUE: Imaging protocol: XR of the chest Views: 1 view. COMPARISON: No relevant prior studies available. IMPRESSION: A 4 lead left subclavian pacemaker is seen with the leads in satisfactory position (2 right ventricular, right atrial and coronary sinus leads). The cardiac silhouette is enlarged with pulm onary venous congestion. There is mild left basilar opacity consistent with com pressive atelectasis in the left lower lobe and/or a small effusion . The lungs and pleural spaces are otherwise clear. There are no acute osseous abnormalities. Derek Membreno MD On 12/11/2019 08:19:20; VR-KO [id number] Chest 2 views DX PROCEDURE: [facility]: Hypertension. Comparison: Chest radiograph 05/03/2014. FINDINGS: The chest shows normal lung volumes without interstitial or airspace opacities, pleural effusions or pneumothorax. The cardiac silhouette is en larged. A left subclavian pacemaker is noted. Degenerative change involves the thoracic spine. IMPRESSION: 1. No chest radiographic evidence of acute cardi opulmonary disease. [id number] Consultation Notes No Data Provided for This Section Discharge Summaries No Data Provided for This Section History and Physicals No Data Provided for This Section Vital Signs Vital Sign Value Date Comments Source Heart Rate 98 12/15/2019 [facility] Respitory Rate 20 12/15/2019 [facility] Systolic (mm Hg) 155 12/15/2019 [facility] t Diastolic (mm Hg) 88 12/15/[address] [facility] [address] Heart Rate 91 12/14/2019 [facility] Respitory Rate 20 12/14/2019 [facility] Systolic (mm Hg) 126 12/14/2019 [facility] t Diastolic (mm Hg) 79 12/14/[address] [facility] [address] Heart Rate 73 12/14/2019 [facility] Respitory Rate 20 12/14/2019 [facility] Systolic (mm Hg) 109 12/14/2019 [facility] t Diastolic (mm Hg) 67 12/14/[address] [facility] [address] Temperature Oral (F) 99.9 F 12/11/2019 [facility] Temperature Oral (F) 99.7 F 12/11/2019 [facility] Temperature Oral (F) 98.9 F 12/11/2019 [facility] Height 182.88 cm 12/11/2019 [facility] Weight 122.955 12/11/2019 [facility] BMI Calculated 36.76 12/11/2019 [facility] Weight 126.023 02/11/2019 [facility] BMI Calculated 37.68 02/11/2019 [facility] Height 182.88 cm 02/11/2019 [facility] Systolic (mm Hg) 121 02/11/2019 [facility] Diastolic (mm Hg) 76 02/11/2019 [facility] Temperature Oral (F) 98.2 F 02/11/2019 [facility] Heart Rate 60 02/11/2019 [facility] BMI Calculated 37.51 02/04/2019 [facility] Weight 125.455 02/04/2019 [facility] Height 182.88 cm 02/04/2019 [facility] Heart Rate 62 02/04/2019 [facility] Temperature Oral (F) 98.6 F 02/04/2019 [facility] Systolic (mm Hg) 115 02/04/2019 [facility] Diastolic (mm Hg) 70 02/04/2019 [facility] BMI Calculated 36.83 01/12/2018 [facility] Weight 123.182 01/12/2018 [facility] Height 182.88 cm 01/12/2018 [facility] Systolic (mm Hg) 122 01/12/2018 [facility] Diastolic (mm Hg) 70 01/12/2018 [facility] Heart Rate 62 01/12/2018 [facility] Temperature Oral (F) 98.0 F 01/12/2018 [facility] Weight 272 05/08/2015 [facility] Temperature Oral (F) 97.8 F 05/08/2015 [facility] Systolic (mm Hg) 140 05/08/2015 [facility] Diastolic (mm Hg) 86 05/08/2015 [facility] Heart Rate 67 05/08/2015 [facility] Weight 270 05/01/2015 [facility] Temperature Oral (F) 98.0 F 05/01/2015 [facility] Systolic (mm Hg) 143 05/01/2015 [facility] Diastolic (mm Hg) 80 05/01/2015 [facility] Heart Rate 60 05/01/2015 [facility] Weight 271 04/24/2015 [facility] Heart Rate 60 04/24/2015 [facility] Systolic (mm Hg) 171 04/24/2015 [facility] Diastolic (mm Hg) 109 04/24/2015 [facility] Temperature Oral (F) 97.9 F 04/24/2015 [facility] Weight 267 04/17/2015 [facility] Weight 268 10/17/2014 [facility] Temperature Oral (F) 98.1 F 10/17/2014 [facility] Systolic (mm Hg) 150 10/17/2014 [facility] Diastolic (mm Hg) 87 10/17/2014 [facility] Heart Rate 63 10/17/2014 [facility] Weight 266 07/18/2014 [facility] Systolic (mm Hg) 157 07/18/2014 [facility] Diastolic (mm Hg) 87 07/18/2014 [facility] Heart Rate 59 07/18/2014 [facility] Temperature Oral (F) 97.9 F 07/18/2014 [facility] Respitory Rate 16 07/18/2014 [facility] Weight 274 07/07/2014 [facility] Systolic (mm Hg) 140 07/07/2014 [facility] Diastolic (mm Hg) 90 07/07/2014 [facility] Heart Rate 60 07/07/2014 [facility] Respitory Rate 20 07/07/2014 [facility] Temperature Oral (F) 98.7 F 07/07/2014 [facility] Diastolic (mm Hg) 88 05/03/2014 [place] Heart Rate 62 05/03/2014 [facility] Respitory Rate 16 05/03/2014 [place] Systolic (mm Hg) 156 05/03/2014 [place] Weight 76.818 05/03/2014 [facility] BMI Calculated 22.97 05/03/2014 [place] Height 182.88 cm 05/03/2014 [place] Systolic (mm Hg) 162 05/03/2014 [place] Respitory Rate 16 05/03/2014 [place] Heart Rate 60 05/03/2014 [place] Diastolic (mm Hg) 87 05/03/2014 [place] Temperature Oral (F) 98.1 F 05/03/2014 [place] Weight 271 12/20/2013 [facility] Height 72 12/20/2013 [facility] Systolic (mm Hg) 130 12/20/2013 [facility] Diastolic (mm Hg) 80 12/20/2013 [facility] Heart Rate 60 12/20/2013 [facility] Encounters Location Location Encounter Encounter Reason Attending ADM DC Stat us Source Details Type Number For Provider Date Date Visit [facility] [id number] Derek James 05/03 05/03 Poppy Smith Emergency /2013 [facility] Lab Report [id number] Dolly 05/04 05/04 [facility] [address] [facility], Medical Medical [employer] [facility] - [place] [facility] Lab Report [id number] Dolly 07/07 07/07 [facility] [address] [facility], Medical Medical [employer] [facility] - [place] [facility] South Office [id number] Dolly 07/18 07/18 [place] Medical Visit [address], [facility] APRN [facility] Cardiology [facility] Lab Report [id number] Dolly09/09 [place] Medical [address], /2013 Medica l [facility] [employer] [facility] Cardiology [facility] South Office [id number] Dolly 10/17 10/17 [place] Medical Visit [address], [facility] [employer] [facility] Cardiology [facility] South Office [id number] Francis 04/17 04/17 [place] Medical Visit 4900 Radha, /2014 [facility] MD Group Cardiology [facility] [place] Lab Report [id number] Francis 04/24 04/24 [place] [facility] 5090 Radha, /2014 [facility] MD Group Cardiology [facility] South Office [id number] Francis 04/24 04/24 [place] Medical Visit 2160 Radha, [facility]enn[facility] MD Group Cardiology [facility] Lab Report [id number] Francis 05/01 05/01 [place] Medical 4520 Radha, Dennys [facility] MD Group Cardiology [facility] Office [id number] Francis 05/08 05/08 [place] Medical Visit 1680 Radha, Dennys [facility] MD Group Cardiology Outpatient [id number] FRANCIS 07/31 [facility] [id number] FRANCIS10/30 [facility] Outpatient [id number] FRANCIS10/31 [facility] [place] Outpatient [id number] 05/06 [facility] [place] Outpatient [id number] O[place] DAN 09/02 [facility] MAZEL [facility] Outpatient [id number] FRANCIS08/18 Active [facility] [place] [facility] Phone [id number] 10/01 10/03 Cardiology Message /2016 [facility] Outpatient [id number] 01/12 [facility] [place] [facility] Outpatient [id number] Francis 01/12 01/13 Cardiology Radha /2017 [facility] Outside [id number] 02/04 02/06 Cardiology Medical /2017 [facility] Outpatient [id number] FRANCIS02/09 Active [facility] Luis [facility] Ambulatory [id number] Francis 02/09 02/09 Cardiology Pre-Reg Radha /2017 Med ical [facility] Outpatient [id number] FRANCIS02/16 [facility] [place] [facility] Ambulatory [id number] Francis02/16 Cardiology Pre-Reg Radha /2017 Med ical [facility] MG Phone [id number] 03/03 03/05 Cardiology Message /2017 [facility] Outpatient [id number] FRANCIS 03/16 [facility] [place] [facility] Outpatient [id number] Francis 03/16 03/17 Cardiology Radha /2017 [facility] Phone [id number] 05/12 05/14 Cardiology Message /2017 [facility] Phone [id number] 09/02 09/04 Cardiology Message /2017 [facility] Outpatient [id number] Francis 02/04 Active [facility] Radha [facility] Outpatient [id number] NURSE 02/04 Active [facility] VISIT /2018 [place] [facility] Outpatient [id number] Francis 02/04 02/05 Cardiology Radha /2018 [facility] Outpatient [id number] Francis 02/04 02/05 Radiology Radha /2018 [facility] Outpatient [id number] Fracnis 02/11 Active [facility] Radha Luis [facility] Outpatient [id number] Francis 02/11 02/12 Cardiology Radha /2018 [facility] Phone [id number] 02/26 02/28 Cardiology Message /2018 Medic [facility] Outside [id number] 08/03 08/05 Cardiology Medical /2018 Medic al [facility] MG Outside [id number] 11/01 11/03 Cardiology Medical /2019 Medic al [facility] Phone [phone] 12/10 12/12 Cardiology Message /2019 Medic al [facility] Inpatient [id number] [facility] 12/11 12/15 [facility] Outpatient [id number] L Dolly 12/27 Active [facility] [place] [facility] Ambulatory [id number] L Dolly 12/27 12/27 Cardiology Pre-Reg Mazel /2019 Medic al [facility] Procedures Procedure Code Date Perfomer Comments Source Cryotherapy to skin [id number] 01/08/2018 multiple MH Me dical lesion<sup>1</sup> lesions on Group, MH his face. [facility] Implantation of [id number] 05/04/2015 3.0 years Medica l cardioverter remain - Group, defibrillator with dependent. [place] three electrode leads<sup>2</sup> Implantation of [id number] 05/04/2015 3.0 years MH Medica l cardioverter remain - Group defibrillator with dependent. three electrode leads<sup>1</sup> echocardiogram, 12330 07/08/2014 Complete Medica l complete Group Cardiac [id number] 2009 Medical catheterization, Group, left [facility] heart<sup>3</sup> Implantation of [id number] Medica l defibrillator Group,[facility] Knee joint [id number] Medical operation Group,[facility], Ethel Miscellaneous [id number] Lumbar spine Medica l operations<sup>4</s Group ,MH up> [facility] Cardiac [id number] 2009 Medical catheterization, Group left heart<sup>2</sup> Miscellaneous [id number] Lumbar spine Medica l operations<sup>3</s Group up> Miscellaneous [id number] 1Lumbar spine Ethel operations<sup>1</s up> Assessment and Plan Assessment and Plan Date Source Extracted from:Title: EP progress note 12/15/2019 Jaylen Lyn Karin Author: Sujata Kuhn MD Date: 12/14/19 Impression and Plan 1. Biv ICD -elevated RV threshold. Currently Biv pa leta at maximum output. awaiting to be transferred to medical center for possible laser lead extraction. 2. Altered mental status 3. Back pain 4. Fever: started empiric Abx. Will need ID consult after tr adalgisa. Plan of Care No Data Provided for This Section Social History Social History Date Source Social History TypeResponse 12/11/2019 [facility] Alcohol Current, Type Beer. Frequency: 1-2 time s per year. Alcohol use interferes with work or home: No. Drinks more than intended: No. Others hurt by drinking: No. Ready to change: No. Household alcohol concerns: No. Employment/School Status: Retired. Exercise 1 Substance Abuse Use: None. Smoking Status Former smoker; Previous treatment: None; Ready to change: Yes; Concerns about tobacco use in household: Yes; Exposure to Tobacco Smoke None; Cigarette Smoking Last 365 Days No; Reg Smoking Cessation Cou nseling No; Started at age: [age]; Stopped at age: 49; entered on: 12/10/19 1no regular exercise. Social History TypeResponse 12/11/2019 [facility] Alcohol Current, Type Beer. Frequency: 1-2 time s per year. Alcohol use interferes with work or home: No. Drinks more than intended: No. Others hurt by drinking: No. Ready to change: No. Household alcohol concerns: No. Employment/School Status: Retired. Exercise 1 Substance Abuse Use: None. Smoking Status Former smoker; Previous treatment: None; Ready to change: Yes; Concerns about tobacco use in household: Yes; Exposure to Tobacco Smoke None; Cigarette Smoking Last 365 Days No; Reg Smoking Cessation Cou nseling No; Started at age: 18.0; Stopped at age: 49; entered on: 12/10/19 1no regular exercise. Social History TypeResponse 05/03/2014 Poppy cobian Smoking Status Never smoker, Exposure to Tobacco Smoke None, Cigarette Smoking Last 365 Days No, Reg Smoking Cessation Counseling No Family History No Data Provided for This Section Advance Directives No Data Provided for This Section Functional Status No Data Provided for This Section
--- OUTSIDE RECORDS SUMMARY | 2020-03-08 06:47 | XMS REPORT | Continuity of Care Document ---
:1945 Author Organization [facility] Care Team Providers Name Role Phone MD Radha, Francis Unavailable Unavailable Insurance Providers Payer name Policy type / Policy ID Covered alliance party ID Policy Hol micky Coverage type MEDICARE PRIMARY MEDICARE B-[place]: [employer] BENEFIT FUND (SECONDARY ON Encounters Encounter Performer Location Date Lab Report Francis Garcia MD [facility] [place] Apr 24, 2015 Allergies, Adverse Reactions, Alerts Type Substance Reaction [...] Oct 17, 2014 smoking status Former smoker Medications Medication [...] q hs Jul 18, 2014 Activ e METOLAZONE 2.5 MG TABS 1/2 TAB PO DAILY Aug 25, 2014 Active HYDROCHLOROTHIAZIDE 25 MG TABS Take one tab daily Inactive LOTREL 10-40 MG CAPS Take one tab daily Apr 24, 2015 Active SPIRONOLACTONE 25 MG TABS 1 tablet daily Apr 24, 2015 Active FUROSEMIDE 40 MG TABS one by mouth daily Apr 24, 2015 Active Vital Signs Date Description Test Result Dec 20, 2013 weight Fish&Jaylen - 3141-9 WEIGHT 271 lb Dec 20, 2013 height E&Jaylen - 8302-2 HEIGHT 72 in Dec 20, [...] 80 mm Hg Jul 07, 2014 weight Fish&Jaylen - 3141-9 WEIGHT 274 lb Jul 07, [...] 90 mm Hg Jul 18, 2014 weight Fish&Jaylen - 3141-9 WEIGHT 266 lb Jul 18, [...] 89 mm Hg Apr 17, 2015 weight E&Jaylen - 3141-9 WEIGHT 267 lb Apr 24, [...] blood pressure, diastolic, sitting, left arm BP KAMLAJIT SIT L 109 mm Hg Apr 24, 2015 blood pressure, systolic, sitting, right arm BP SYS SIT R 171 null Apr 24, 2015 blood pressure, diastolic, sitting, right arm BP KAMALJIT SIT R 104 mmHg Apr 24, 2015 temperature E&M TEMPERATURE 97.9 deg f Apr 24, 2015 blood pressure, systolic - 8480-6 BP SYSTOLIC 171 mm Hg Apr 24, 2015 pulse rate E&M - 8867-4 PULSE RATE 60 /min Apr 24, 2015 blood pressure, diastolic - 8462-4 BP DIASTOLIC 104 mm Hg Results Date Description Test Name Value Reference Interpretation Sta tus Jul 07, hemoglobin, blood HGB 14.1 g/dL 12.3-17.3 2013Jul 07, hematocrit, blood HCT 41.2 % 36.7-50.5 2013Apr 24, hemoglobin, blood HGB 14.7 g/dL 12.3-17.3 2014Apr 24, hematocrit, blood HCT 43.9 % 36.7-50.5 2014Sep 16, prostate specific PSA 1.45 ng/mL 2009Jul 07, sodium, serum SODIUM 141 mmol/L [phone] Jul 07, potassium, serum POTASSIUM 3.8 mmol/L [...] 2013Apr 24, sodium, serum SODIUM 139 mmol/L [phone] Apr 24, potassium, serum POTASSIUM 3.5 mmol/L 3.3-5.0 2014Apr 24, urea nitrogen, blood BUN 21 mg/dL -2014Apr 24, creatinine, serum CREATININE 0.97 mg/dL 0.46-1.20 2014Apr 24, calcium, serum CALCIUM 10.1 mg/dL 8.6-9.8 High 2014Apr 24, cholesterol, serum CHOLESTEROL 179 mg/dl [phone] Apr 24, HDL cholesterol, HDL 45 mg/dl 26-62 2014Apr 24, LDL cholesterol, LDL 119 mg/dl 0-130 2014Apr 24, albumin, serum ALBUMIN 4.4 g/dL 3.5-5.0 2014Apr 24, alkaline phosphatase, ALK PHOS 59 U/L 32-96 2014Apr 24, aspartate SGOT (AST) 24 U/L 10-42 2014 aminotransferase (SGOT), serum Apr 24, alanine SGPT (ALT) 20 U/L 2014 aminotransferase (SGPT), serum Apr 24, magnesium, serum MAGNESIUM 1.9 mg/dL 1.9-2.5 2014Apr 24, international INR 1.05 null 0.8-1.5 2014 normalized ratio (INR) Apr 24, PTT patient PTT PATIENT 27.6 s 22.0-36.0 2014
--- OUTSIDE RECORDS SUMMARY | 2020-03-08 06:47 | XMS REPORT | Continuity of Care Document ---
:1945 Author Organization [facility] Care Team Providers Name Role Phone MD Radha, Francis Unavailable Unavailable Insurance Providers Payer name Policy type / Policy ID Covered green party ID Policy Hol micky Coverage type MEDICARE PRIMARY MEDICARE B-[place]: [employer] BENEFIT FUND (SECONDARY ON Encounters Encounter Performer Location Date Office Visit Francis Garcia MD [facility] [place] Apr 24, 2015 Cardiology Allergies, Adverse Reactions, Alerts Type [...] 07, 2014 urea nitrogen, BUN 15 mg/dL 08-17 blood Jul 07, 2014 creatinine, serum CREATININE 0.96 mg/dL 0.46-1.20 Jul 07, 2014 calcium, serum CALCIUM 10.1 mg/dL 8.6-9.8 High Sep 09, 2014 sodium, serum SODIUM 144 mmol/L 135-143 High Sep 09, 2014 potassium, serum POTASSIUM 3.6 mmol/L 3.3-5.0 Sep 09, 2014 urea nitrogen, BUN 19 mg/dL 08-17 blood Sep 09, 2014 creatinine, serum CREATININE 1.09 mg/dL 0.46-1.20 Sep 09, 2014 calcium, serum CALCIUM 10.8 mg/dL 8.6-9.8 High
--- OUTSIDE RECORDS SUMMARY | 2020-03-08 06:47 | XMS REPORT | Continuity of Care Document ---
:1945 Author Organization [facility] Care Team Providers Name Role Phone MD Radha, Francis Unavailable Unavailable Insurance Providers Payer name Policy type / Policy ID Covered green party ID Policy Hol micky Coverage type MEDICARE PRIMARY MEDICARE B-[place]: [employer] BENEFIT FUND (SECONDARY ON Encounters Encounter Performer Location Date Office Visit Francis Garcia MD [facility] [place] Apr 17, 2015 Cardiology Allergies, Adverse Reactions, Alerts Type [...] MG CAPS Take one tab daily Active ASPIRIN 81 [...] MG TABS Take one tab daily Inactive Vital Signs Date Description Test Result Dec 20, 2013 weight Jose - 3141-9 WEIGHT 271 lb Dec 20, [...] weight E&M - 3141-9 WEIGHT 267 lb Results Date Description Test Name Value Reference [...]
--- OUTSIDE RECORDS SUMMARY | 2020-03-08 06:47 | XMS REPORT | Continuity of Care Document ---
:1945 Author Organization [facility] Care Team Providers Name Role Phone KAY Francis Anne Unavailable Unavailable Insurance Providers Payer name Policy type / Policy ID Covered green party ID Policy Hol micky Coverage type MEDICARE PRIMARY MEDICARE B-[place]: [employer] BENEFIT FUND (SECONDARY ON Encounters Encounter Performer Location Date Lab Report Dolly Francis APRN [facility] Medical Harsh Fragoso ardiology Sep 09, 2014 Allergies, Adverse Reactions, Alerts Type Substance [...] smoker Jul 08, 2014 echocardiogram, complete Complete Medications Medication Instructions Start Date Status PRAVASTATIN [...] 90 mm Hg Jul 18, 2014 weight E&Jaylen - 3141-9 WEIGHT 266 lb Jul 18, [...]
--- OUTSIDE RECORDS SUMMARY | 2020-03-08 06:48 | XMS REPORT | Summary of Care ---
:1945 Author Organization [facility] Cardiology [place] Address [address] 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 Coronary atherosclerosis7 Active Dyspnea on exertion8, 9 Active Essential hypertension(Confirmed) Active HTN - Hypertension(Confirmed) Resolved Suilkcuenhwhbm84, 11 Active Hypertensive bkvdellb37, 13 Active Pacemaker rhythm(Confirmed) Resolved Patient with cardiac srvrefnyz09, 15 08/03/12 Resolved Preoperative cardiovascular 12/20/13 Resolved lvsssqdmyey68, 17 1Data migrated from [employer] on 03/25/15.2Data migrated from [employer] on 03/25/15.3Data migrated from [employer] on 05/31/15.4Data migrated from [employer] on 03/25/15.5Data migrated from [employer] on 05/31/15.6Data migrated from [employer] on 03/25/15.7Data migrated from [employer] on 03/25/15.8Data migrated from [employer] on 05/31/15.9Data migrated from [employer] on 03/25/15.10Data migrated from [employer] on 05/31/15.11Data migrated from [employer] on 03/25/15.12Data migrated from [employer] on 05/31/15.13Data migrated from [employer] on 03/25/15.14Data migrated from [employer] on 05/31/15.15Data migrated from [employer] on 05/03/15.16Data migrated from [employer] on 05/13/15.17Data migrated from [employer] on 05/12/15. Allergies, Adverse Reactions, Alerts Substance Reaction Severity Status sulfamethoxazole-trimethoprim1 Itching A ctive tetanus toxoid2 Unsure Active Bactrim Rash Active 1Data migrated from [employer] on 02/24/15. Originally documented as BACTRIM. welps, ydpzymosk8Gvcr migrated from [employer] on 02/24/15. Originally documented as TETANUS TOXOID. unknown Medications No data available for this section Results No data available for this section Immunizations No data available for this section Procedures Procedure Date Related Diagnosis Body Site Implantation of cardioverter defibrillator with 05/04/15 three electrode leads1 Cardiac catheterization, left heart2 Implantation of defibrillator Knee joint operation Miscellaneous operations3 13.0 years remain - dependent.535260Ppqpvx spine Social History Social History Type Response Exercise 1 Employment/School Status: Retired. Alcohol Current, Type Beer. Frequen cy: 1-2 times per year. Smoking Status Former smoker; Previous dajuan tment: None; Ready to change: No; Concerns about tobacco use i n household: No; Exposure to Tobacco Smoke None; Cigarette Smokin g Last 365 Days No; Reg Smoking Cessation Counseling No; Sta rted at age: 18.0; Stopped at age: 49; 1no regular exercise. Assessment and Plan No data available for this section
--- OUTSIDE RECORDS SUMMARY | 2020-03-08 06:48 | XMS REPORT | Summary of Care ---
:1945 Author Organization [facility] Cardiology [place] Address [address] [place] [address]- Encounter HQ Rowan_jodee(FIN) [id number] Date(s): 09/02/18 - 09/03/18 [facility] [address] 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 Originally documented as BACTRIM. welps, obbqzlcie0Octq migrated from [employer] on 02/24/15. Originally documented as TETANUS TOXOID. unknown Medications metolazone 2.5 mg oral tablet 2.5 mg = 1 tab, PO, Daily, # 30 tab, 3 Refill(s), Pharmacy: [facility]/pharmacy #[id number] Start Date: 09/02/18 Status: Ordered Results No data available for this section Immunizations No data available for this section Procedures Procedure Date Related Diagnosis Body Site Status Cryotherapy to skin lesion1 01/08/18 Completed Implantation of cardioverter 05/04/15 Completed defibrillator with three electrode leads2 Cardiac catheterization, left heart3 Completed Implantation of defibrillator Completed Knee joint operation Complet ed Miscellaneous operations4 Co mpleted 1multiple lesions on his face.23.0 years remain - dependent.341842Nkubvh spine Social History Social History Type Response Exercise 1 Employment/School Status: Retired. Alcohol Current, Type Beer. Frequen cy: 1-2 times per year. Smoking Status Former smoker; Previous dajuan tment: None; Ready to change: No; Concerns about tobacco use in household: No; Exposure to Tobacco Smoke None; Cigarette Smoking Last 365 Days No; Reg Smoking Cessation Counseling No; Sta rted at age: 18.0; Stopped a t age: 49; entered on: 02/11/19 1no regular exercise. Assessment and Plan No data available for this section
--- OUTSIDE RECORDS SUMMARY | 2020-03-08 06:48 | XMS REPORT | Continuity of Care Document ---
:1945 Author Organization [facility] Care Team Providers Name Role Phone MD Radha, Francis Unavailable Unavailable Insurance Providers Payer name Policy type / Policy ID Covered green party ID Policy Hol micky Coverage type MEDICARE PRIMARY MEDICARE B-[place]: [employer] BENEFIT FUND (SECONDARY ON Encounters Encounter Performer Location Date Lab Report Francis Garcia MD [facility] [place] Cardiology May 01, 2015 Allergies, Adverse Reactions, Alerts Type Substance Reaction Status Drug allergy BACTRIM welps, itchiness Active Drug allergy TETANUS TOXOID unknown Active Problems Problem Effective Dates Problem Status CORONARY ARTERY DISEASE Active HYPERTENSION Active HYPERLIPIDEMIA Active PACEMAKER, PERMANENT March 03, 2007 Active PRE-OPERATIVE CARDIOVASCULAR EXAMINATION Dec 20, 2013 [...] May 01, 2015 smoking status Former smoker Medications Medication Instructions Start Date Status TERAZOSIN HCL 10 MG CAPS Take one [...] MG TABS Take one tab daily Inactive PRAVASTATIN SODIUM 80 MG TABS one by mouth daily Apr 30, 2015 Active LOTREL 5-20 MG CAPS one by mouth daily Apr 24, 2015 Active HYDROCHLOROTHIAZIDE 25 MG TABS one daily Apr 26, 2015 A ctive SPIRONOLACTONE 25 MG TABS 1 tablet daily Apr 24, 2015 Inacti ve FUROSEMIDE 40 MG TABS one by mouth daily Apr 24, 2015 Inactiv e Vital Signs Date Description Test Result [...] - 8462-4 BP DIASTOLIC 80 mm Hg Results Date Description Test Name Value Reference Interpretation Sta Jul 07, hemoglobin, blood HGB 14.1 g/dL 12.3-17.3 2013Jul 07, hematocrit, blood HCT 41.2 % 36.7-50.5 2013Apr 24, hemoglobin, blood HGB 14.7 g/dL 12.3-17.3 2014Apr 24, hematocrit, blood HCT 43.9 % 36.7-50.5 2014Sep 16, prostate specific PSA 1.45 ng/mL 2009 antigen Jul 07, sodium, serum SODIUM 141 mmol/L [phone] Jul 07, potassium, serum POTASSIUM 3.8 mmol/L 3.3-5.0 2013Jul 07, urea nitrogen, blood BUN 15 mg/dL 08-17Jul 07, creatinine, serum CREATININE 0.96 mg/dL 0.46-1.20 [...] 2013Apr 24, sodium, serum SODIUM 139 mmol/L [phone] Apr 24, potassium, serum POTASSIUM 3.5 mmol/L 3.3-5.0 2014Apr 24, urea nitrogen, blood BUN 21 mg/dL 10-2014Apr 24, creatinine, serum CREATININE 0.97 mg/dL 0.46-1.20 2014Apr 24, calcium, serum CALCIUM 10.1 mg/dL 8.6-9.8 High 2014Apr 24, cholesterol, serum CHOLESTEROL 179 mg/dl [phone] Apr 24, HDL cholesterol, HDL 45 mg/dl 26-62 2014Apr 24, LDL cholesterol, LDL 119 mg/dl 0-130 2014Apr 24, albumin, serum ALBUMIN 4.4 g/dL 3.5-5.0 2014Apr 24, alkaline phosphatase, ALK PHOS 59 U/L 32-96 2014Apr 24, aspartate SGOT (AST) 24 U/L -42 2014 aminotransferase (SGOT), serum Apr 24, alanine SGPT (ALT) 20 U/L 43 2014 aminotransferase (SGPT), serum Apr 24, magnesium, serum MAGNESIUM 1.9 mg/dL 1.9-2.5 2014May 01, sodium, serum SODIUM 139 mmol/L [phone] May 01, potassium, serum POTASSIUM 3.3 mmol/L 3.3-5.0 2014May 01, urea nitrogen, blood BUN 28 mg/dL 10-22 High 2014May 01, creatinine, serum CREATININE 1.01 mg/dL 0.46-1.20 2014May 01, calcium, serum CALCIUM 9.9 mg/dL 8.6-9.8 High 2014Apr 24, international INR 1.05 null 0.8-1.5 2014 normalized ratio (INR) Apr 24, PTT patient PTT PATIENT 27.6 s 22.0-36.0 2014
--- OUTSIDE RECORDS SUMMARY | 2020-03-08 06:48 | XMS REPORT | Continuity of Care Document ---
:1945 Author Organization [facility] Care Team Providers Name Role Phone KAY Francis Anne Unavailable Unavailable Insurance Providers Payer name Policy type / Policy ID Covered green party ID Policy Hol micky Coverage type MEDICARE PRIMARY MEDICARE B-[place]: [employer] BENEFIT FUND (SECONDARY ON Encounters Encounter Performer Location Date Office Visit Dolly Francis APRN [facility] Medical Harsh Fragoso ardiology Oct 17, 2014 Allergies, Adverse Reactions, Alerts Type Substance [...] - 8462-4 BP DIASTOLIC 89 mm Hg Results Date Description Test Name [...]
--- OUTSIDE RECORDS SUMMARY | 2020-03-08 06:49 | XMS REPORT | Summary of Care ---
:1945 Author Organization [facility] Address [address] [place] [id number] Encounter HQ Luz Maria(CHARLIE) [id number] Date(s): 12/10/19 - 12/14/[address] [address]- Discharge Disposition: Acute Care Attending Physician: Dragan Crowe MD Admitting Physician: Dragan Crowe MD Vital Signs Most recent to oldest 1 2 3 [Reference Range]: Height 182.88 cm (12/10/19 8:49 PM) Current Weight 125.909 kg 121.6 kg 122 kg (12/14/19 4:00 AM) (12/13/19 4:14 AM) (12/12/19 5:1 1 AM) Temperature Oral [96.4-99.1 99.9 DegF 99.7 DegF 98.9 DegF DegF] *HI* *HI* (12/11/19 12:00 A M) (12/11/19 8:26 AM) (12/11/19 3:51 AM) Blood Pressure [90-140/60-90 155/88 mmHg 126/79 mmHg 109 /67 mmHg mmHg] *HI* (12/14/19 4:00 PM) (12/14/19 12:00 PM) (12/14/19 8:00 PM) Respiratory Rate [14-20 BRMIN] 20 BRMIN 20 BRMIN 2 0 BRMIN (12/14/19 8:00 PM) (12/14/19 4:00 PM) (12/14/19 12: 00 PM) Peripheral Pulse Rate [60-100 98 bpm 91 bpm 73 bpm bpm] (12/14/19 8:00 PM) (12/14/19 4:00 PM) (12/14/19 12: 00 PM) Weight 122.955 kg (12/10/19 8:49 PM) Body Mass Index 36.76 m2 (12/10/19 8:49 PM) Problem List Condition Effective Dates Status Health Status Informant Asbestosis1 07/07/14 Active 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 Originally documented as BACTRIM. welps, [id number] migrated from [facility] on 02/24/15. Originally documented as TETANUS TOXOID. unknown Medications acetaminophen 325 mg oral tablet 325 mg = 1 tab, PO, Q6H, PRN Pain 1-3/Temp > 100.4 F, 0 Refill(s) Start Date: 12/14/19 Status: OrderedamLODIPine 5 mg, 1 tab, Route: PO, Drug form: TAB, Daily, Start date: 12/11/19 9:00:00 PRODUCTION CONTROL SCHEDULER, Duration: 30 day, Stop date: 01/09/20 9:00:00 CDT, 0 Notes: (Same as: Norvasc) Start Date: 12/11/19 Stop Date: 12/15/19 Status: DiscontinuedamLODIPine 5 mg oral tablet 5 mg = 1 tab, PO, Daily, 0 Refill(s) Start Date: 12/14/19 Status: OrderedamLODIPine-benazepril 5 mg-20 mg oral capsule 1 cap, Route: PO, Drug Form: CAP, Dosing Weight 122.955, kg, Daily, Start date: 12/11/19 9:00:00 PRODUCTION CONTROL SCHEDULER, Duration: 30 day, Stop date: 01/09/20 9:00:00 CDT Start Date: 12/11/19 Stop Date: 12/10/19 Status: Deletedaspirin 81 mg tablet, enteric coated 81 mg, 1 tab, Route: PO, Drug form: ECTAB, Daily, Dosing Weight 122.955, kg, Start date: 12/11/19 9:00:00 PRODUCTION CONTROL SCHEDULER, Duration: 30 day, Stop date: 01/09/20 9:00:00 CDT, 0 Notes: Do not crush or chew.(Same As: Ecotrin) Start Date: 12/11/19 Stop Date: 12/15/19 Status: Discontinuedaspirin 81 mg tablet, enteric coated 81 mg = 1 tab, PO, Daily, 0 Refill(s) Start Date: 12/14/19 Status: OrderedBD Normal Saline Flush 10 mL, Route: IVP, Drug Form: INJ, PRN, PRN Line Flush, Start date: 12/10/19 21:33:00 PRODUCTION CONTROL SCHEDULER, Duration:30 day, Stop date: 01/09/20 22:32:00 CDT, 0 Notes: Same as: BD Posiflush Sterile Start Date: 12/10/19 Stop Date: 12/15/19 Status: Discontinuedcefepime + Sodium Chloride 0.9% IV 100 mL 1 gm, Route: IVPB, ABXQ8H, Dosing Weight 122.955, kg, (CrCl >/= 60 ml/min), Start date: 12/13/19 20:00:00 PRODUCTION CONTROL SCHEDULER, Duration: 7 day, Stop date: 12/20/19 12:00:00 PRODUCTION CONTROL SCHEDULER, ABX Indication: Pneumonia, 0 Notes: (Same As: Maxipime) MEDICATION WASTE Product Size: 1000 mgProduct Wasted: ___ mg Start Date: 12/13/19 Stop Date: 12/15/19 Status: Discontinuedcyclobenzaprine 10 mg oral tablet 10 mg = 1 tab, PO, Q8H, PRN Muscle Spasms, 0 Refill(s) Start Date: 12/14/19 Status: OrderedDextrose 50% Syringe (D50W) 12.5 gm, 25 mL, Route: IVP, Drug Form: INJ, Dosing Weight 122.955, kg, PRN, PRN Blood Glucose Results, Start date: 12/10/19 22:10:00 PRODUCTION CONTROL SCHEDULER, Duration: 30 day, Stop date: 01/09/20 23:09:00 CDT, 0 Start Date: 12/10/19 Stop Date: 12/15/19 Status: DiscontinuedDextrose 50% Syringe (D50W) 25 gm, 50 mL, Route: IVP, Drug Form: INJ, Dosing Weight 122.955, kg, PRN, PRN Blood Glucose Results,Start date: 12/10/19 22:10:00 PRODUCTION CONTROL SCHEDULER, Duration: 30 day, Stop date: 01/09/20 23:09:00 CDT, 0 Start Date: 12/10/19 Stop Date: 12/15/19 Status: Discontinueddocusate 100 mg, 1 cap, Route: PO, Drug form: CAP, BID, Dosing Weight 122.955, kg, Start date: 12/11/19 9:00:00 PRODUCTION CONTROL SCHEDULER, Duration: 30 day, Stop date: 01/09/20 17:00:00 CDT, 0 Notes: (Same as: Colace) (Do Not Crush) Start Date: 12/11/19 Stop Date: 12/15/19 Status: Discontinueddocusate sodium 100 mg oral capsule 100 mg = 1 cap, PO, BID, 0 Refill(s) Start Date: 12/14/19 Status: OrderedFlagyl 500 mg, 100 mL, Route: IVPB, Drug form: INJ, ABXQ8H, Dosing Weight 122.955, kg, Start date: 12/13/2019:00:00 PRODUCTION CONTROL SCHEDULER, Duration: 7 day, Stop date: 12/20/19 12:00:00 PRODUCTION CONTROL SCHEDULER, ABX Indication: Pneumonia, 0 Notes: (Same as: Flagyl) Avoid alcohol. Start Date: 12/13/19 Stop Date: 12/15/19 Status: DiscontinuedFlexeril 10 mg, 1 tab, Route: PO, Drug form: TAB, Q8H, Dosing Weight 122.955, kg, PRN Muscle Spasms, Start date: 12/12/19 16:07:00 PRODUCTION CONTROL SCHEDULER, Duration: 30 day, Stop date: 01/11/20 16:06:00 CDT, 0 Notes: (Same As: Flexeril) Start Date: 12/12/19 Stop Date: 12/15/19 Status: Discontinuedfurosemide 40 mg oral tablet 40 mg = 1 tab, PO, Daily, 0 Refill(s) Start Date: 12/14/19 Status: Orderedglucagon 1 mg, Route: IM, Drug form: PDR/INJ, PRN, Dosing Weight 122.955, kg, PRN Blood Glucose Results, Start date: 12/10/19 22:10:00 PRODUCTION CONTROL SCHEDULER, Duration: 30 day, Stop date: 01/09/20 23:09:00 CDT, 0 Start Date: 12/10/19 Stop Date: 12/15/19 Status: DiscontinuedLasix 40 mg, 4 mL, Route: IV, Drug form: INJ, ONCE, Dosing Weight 122.955, kg, Start date: 12/11/19 11:49:00 PRODUCTION CONTROL SCHEDULER, Stop date: 12/11/19 11:49:00 PRODUCTION CONTROL SCHEDULER, 0 Notes: (Same as: Lasix) MEDICATION WASTE Product Size: 40 mgProduct Wasted: ___ mg Start Date: 12/11/19 Stop Date: 12/11/19 Status: CompletedLasix 40 mg, 1 tab, Route: PO, Drug form: TAB, Daily, Dosing Weight 122.955, kg, Start date: 12/12/19 17:45:00 PRODUCTION CONTROL SCHEDULER, Duration: 30 day, Stop date: 01/11/20 9:00:00 CDT, 0 Notes: (Same as: Lasix) May cause GI upset. Give with food or milk. Start Date: 12/12/19 Stop Date: 12/15/19 Status: Discontinuedlisinopril 20 mg, 1 tab, Route: PO, Drug form: TAB, Daily, Start date: 12/11/19 9:00:00 PRODUCTION CONTROL SCHEDULER, Duration: 30 day, Stop date: 01/09/20 9:00:00 CDT, 0 Notes: (Same as: Prinivil, Zestril) Start Date: 12/11/19 Stop Date: 12/15/19 Status: Discontinuedlisinopril 20 mg oral tablet 20 mg = 1 tab, PO, Daily, 0 Refill(s) Start Date: 12/14/19 Status: Orderedmetoprolol tartrate 25 mg, Route: PO, Drug form: TAB, BID, Dosing Weight 122.955, kg, Start date: 12/12/19 9:00:00 PRODUCTION CONTROL SCHEDULER, Duration: 30 day, Stop date: 01/10/20 17:00:00 CDT Start Date: 12/12/19 Stop Date: 12/11/19 Status: Canceledmetoprolol tartrate 25 mg, 1 tab, Route: PO, Drug form: TAB, Q12H, Dosing Weight 122.955, kg, Start date: 12/11/19 22:00:00 PRODUCTION CONTROL SCHEDULER, Duration: 30 day, Stop date: 01/10/20 21:00:00 CDT, 0 Notes: (Same as: Lopressor) Start Date: 12/11/19 Stop Date: 12/15/19 Status: Discontinuedmetoprolol tartrate 25 mg oral tablet 25 mg = 1 tab, PO, Q12H, 0 Refill(s) Start Date: 12/14/19 Status: OrderedmetroNIDAZOLE intravenous solution 500 mg = 100 mL, IVPB, ABXQ8H, 0 Refill(s) Start Date: 12/14/19 Status: OrderedNorco 5/325 oral tablet 1 tab, Route: PO, Drug Form: TAB, Dosing Weight 122.955, kg, Q4H, PRN Pain Score 1-3, Start date: 12/10/19 22:14:00 PRODUCTION CONTROL SCHEDULER, Duration: 30 day, Stop date: 01/09/20 22:13:00 CDT, 0 Notes: (Same as: [place] 325/5) Do not exceed 4gm/day of acetaminophen. Start Date: 12/10/19 Stop Date: 12/13/19 Status: Discontinuedondansetron 4 mg, 2 mL, Route: IVP, Drug form: INJ, Q8H, Dosing Weight 122.955, kg, PRN Nausea & Vomiting, Start date: 12/10/19 22:10:00 PRODUCTION CONTROL SCHEDULER, Duration: 30 day, Stop date: 01/09/20 22:09:00 CDT, 0 Notes: (Same as: Marcial) MEDICATION WASTE Product Size: 4 mgProduct Wasted: ___ mg Start Date: 12/10/19 Stop Date: 12/15/19 Status: Discontinuedondansetron 2 mg/mL injectable solution 4 mg = 2 mL, IVP, Q8H, PRN Nausea & Vomiting, 0 Refill(s) Start Date: 12/14/19 Status: Orderedpotassium chloride 40 mEq, 2 tab, Route: PO, Drug form: ERTAB, ONCE, Dosing Weight 122.955, kg, Start date: 12/13/19 12:08:00 PRODUCTION CONTROL SCHEDULER, Stop date: 12/13/19 12:08:00 PRODUCTION CONTROL SCHEDULER, 0 Notes: (Same as: K-Dur )"Do Not Crush" Give with food and full glass of waterFor patients unable to swallow tablet, dissolve in one half glass of water. Allow about 2 minutes for the tablets to disintegrate. Stir before giving to prepare slurry and administer.Please exclude Patients with feedingtube less than 14 [place] (Dobhoff, J-tube etc) and pediatric and patients. Start Date: 12/13/19 Stop Date: 12/13/19 Status: Completedpotassium chloride 40 mEq, 2 tab, Route: PO, Drug form: ERTAB, ONCE, Dosing Weight 122.955, kg, Priority: STAT, Start date: 12/12/19 17:23:00 PRODUCTION CONTROL SCHEDULER, Stop date: 12/12/19 17:23:00 PRODUCTION CONTROL SCHEDULER, 0 Notes: (Same as: K-Dur )"Do Not Crush" Give with food and full glass of waterFor patients unable to swallow tablet, dissolve in one half glass of water. Allow about 2 minutes for the tablets to disintegrate. Stir before giving to prepare slurry and administer.Please exclude Patients with feedingtube less than 14 [place] (Dobhoff, J-tube etc) and pediatric and patients. Start Date: 12/12/19 Stop Date: 12/12/19 Status: Completedpotassium chloride 40 mEq, 2 tab, Route: PO, Drug form: ERTAB, ONCE, Dosing Weight 122.955, kg, Start date: 12/12/19 22:00:00 PRODUCTION CONTROL SCHEDULER, Stop date: 12/12/19 22:00:00 PRODUCTION CONTROL SCHEDULER, 0 Notes: (Same as: K-Dur )"Do Not Crush" Give with food and full glass of waterFor patients unable to swallow tablet, dissolve in one half glass of water. Allow about 2 minutes for the tablets to disintegrate. Stir before giving to prepare slurry and administer.Please exclude Patients with feedingtube less than 14 [place] (Dobhoff, J-tube etc) and pediatric and patients. Start Date: 12/12/19 Stop Date: 12/12/19 Status: Completedpravastatin 80 mg, 4 tab, Route: PO, Drug form: TAB, Bedtime, Dosing Weight 122.955, kg, Start date: 12/11/19 21:00:00 PRODUCTION CONTROL SCHEDULER, Duration: 30 day, Stop date: 01/09/20 21:00:00 CDT, 0 Notes: (Same as: Pravachol) Start Date: 12/11/19 Stop Date: 12/15/19 Status: Discontinuedpravastatin 20 mg oral tablet 80 mg = 4 tab, PO, Bedtime, 0 Refill(s) Start Date: 12/14/19 Status: Orderedsertraline 50 mg, 2 tab, Route: PO, Drug form: TAB, Daily, Dosing Weight 122.955, kg, Start date: 12/11/19 9:00:00 PRODUCTION CONTROL SCHEDULER, Duration: 30 day, Stop date: 01/09/20 9:00:00 CDT, 0 Notes: (Same as: Zoloft) Start Date: 12/11/19 Stop Date: 12/15/19 Status: Discontinuedsertraline 25 mg oral tablet 50 mg = 2 tab, PO, Daily, 0 Refill(s) Start Date: 12/14/19 Status: OrderedSodium Chloride 0.9% IV 250 mL, Route: IVPB, Start date: 12/10/19 21:33:00 PRODUCTION CONTROL SCHEDULER, Duration: 30 day, Stop date: 01/09/20 22:32:00 CDT, PRN Line Flush, 0 Start Date: 12/10/19 Stop Date: 12/15/19 Status: Discontinuedtamsulosin 0.4 mg, 1 cap, Route: PO, Drug form: CAP, Bedtime, Dosing Weight 122.955, kg, Start date: 12/11/19 21:00:00 PRODUCTION CONTROL SCHEDULER, Duration: 30 day, Stop date: 01/09/20 21:00:00 CDT, 0 Notes: (Same As: Flomax) "Do Not Crush" Start Date: 12/11/19 Stop Date: 12/15/19 Status: Discontinuedtamsulosin 0.4 mg oral capsule 0.4 mg = 1 cap, PO, Bedtime, 0 Refill(s) Start Date: 12/14/19 Status: Orderedtramadol 50 mg oral tablet 50 mg = 1 tab, PO, Q6H, PRN Pain Score 1-3, 0 Refill(s) Start Date: 12/14/19 Status: Orderedtramadol 50 mg oral tablet 50 mg, 1 tab, Route: PO, Drug form: TAB, Q6H, Dosing Weight 122.955, kg, PRN Pain Score 1-3, Start date: 12/12/19 16:07:00 PRODUCTION CONTROL SCHEDULER, Duration: 30 day, Stop date: 01/11/20 16:06:00 CDT, 0 Notes: Not to exceed 400mg/day. (Same As: Ultram) Start Date: 12/12/19 Stop Date: 12/15/19 Status: DiscontinuedTylenol 325 mg, 1 tab, Route: PO, Drug form: TAB, Q6H, Dosing Weight 122.955, kg, PRN Pain 1-3/Temp > 100.4 F, Start date: 12/13/19 19:32:00 PRODUCTION CONTROL SCHEDULER, Duration: 30 day, Stop date: 01/12/20 19:31:00 CDT, 0 Notes: Do not exceed 4 gm/day. (Same as: Tylenol) Start Date: 12/13/19 Stop Date: 12/15/19 Status: Discontinued Results Most recent to oldest 1 2 3 [Reference Range]: Neutrophils # [1.5-8.1 10.5 K/CMM 9.6 K/CMM 6.4 K/CMM K/CMM] *HI* *HI* (12/11/19 4:14 AM ) (12/13/19 5:51 AM) (12/12/19 3:50 PM) Lymphocytes # [1.0-5.5 0.9 K/CMM 0.8 K/CMM 0.8 K/CMM K/CMM] *LOW* *LOW* *LOW* (12/13/19 5:51 AM) (12/12/19 3:50 PM) (12/11/19 4:1 4 AM) Monocytes # [0.0-0.8 K/CMM] 0.6 K/CMM 0.9 K/CMM 0.5 K/CMM (12/13/19 5:51 AM) *HI* (12/11/19 4:14 AM) (12/12/19 3:50 PM) Eosinophils # [0.0-0.5 0.0 K/CMM 0.0 K/CMM K/CMM] (12/12/19 3:50 PM) (12/11/19 4:14 AM) Basophils # [0.0-0.2 K/CMM] 0.1 K/CMM 0.0 K/CMM 0.0 K/CMM (12/13/19 5:51 AM) (12/12/19 3:50 PM) (12/11/19 4:1 4 AM) BNP [<=100 pg/mL] 705 pg/mL *HI* (12/11/19 4:14 AM) Plt Morph [Normal] Normal (12/12/19 3:50 PM) eGFR 58 mL/min/1.73m2 1 58 mL/min/1.73m2 2 73 mL/min/ 1.73m2 3 *NA* *NA* *NA* (12/13/19 5:51 AM) (12/12/19 3:50 PM) (12/11/19 4:1 4 AM) A/G Ratio [0.7-1.6] 0.7 (12/11/19 4:14 AM) Albumin Lvl [3.5-5.0 g/dL] 2.3 g/dL *LOW* (12/11/19 4:14 AM) Alk Phos [39-136 unit/L] 73 unit/L (12/11/19 4:14 AM) ALT [0-65 unit/L] 34 unit/L (12/11/19 4:14 AM) Ammonia [<=45.0 uMol/L] 14.0 uMol/L (12/12/19 3:50 PM) AGAP [10.0-20.0 mEq/L] 12.2 mEq/L 6.7 mEq/L 13.6 mEq/ L (12/13/19 5:51 AM) *LOW* (12/11/19 4:14 AM) (12/12/19 3:50 PM) AST [0-37 unit/L] 50 unit/L *HI* (12/11/19 4:14 AM) B/C Ratio [6-25] 29 *HI* (12/11/19 4:14 AM) Basophils [0.0-1.0 %] 1.0 % 0.0 % 0.2 % (12/13/19 5:51 AM) (12/12/19 3:50 PM) (12/11/19 4:1 4 AM) BUN [7-22 mg/dL] 36 mg/dL 37 mg/dL 29 mg/dL *HI* *HI* *HI* (12/13/19 5:51 AM) (12/12/19 3:50 PM) (12/11/19 4:1 4 AM) Calcium Lvl [8.5-10.5 mg/dL] 9.6 mg/dL 9.4 mg/dL 9.8 mg/dL (12/13/19 5:51 AM) (12/12/19 3:50 PM) (12/11/19 4:1 4 AM) Chloride Lvl [95-109 mEq/L] 100 mEq/L 100 mEq/L 107 mEq/L (12/13/19 5:51 AM) (12/12/19 3:50 PM) (12/11/19 4:1 4 AM) CO2 [24-32 mEq/L] 25 mEq/L 31 mEq/L 21 mEq/L (12/13/19 5:51 AM) (12/12/19 3:50 PM) *LOW* (12/11/19 4:14 AM ) Creatinine Lvl [0.50-1.40 1.20 mg/dL 1.20 mg/dL 1.00 m g/dL mg/dL] (12/13/19 5:51 AM) (12/12/19 3:50 PM) (12/11/19 4:1 4 AM) Eosinophils [0.0-4.0 %] 0.2 % 0.3 % 0.2 % (12/13/19 5:51 AM) (12/12/19 3:50 PM) (12/11/19 4:1 4 AM) Globulin [2.7-4.2 g/dL] 3.5 g/dL (12/11/19 4:14 AM) Glucose Lvl [70-99 mg/dL] 109 mg/dL 120 mg/dL 92 mg/ dL *HI* *HI* (12/11/19 4:14 AM ) (12/13/19 5:51 AM) (12/12/19 3:50 PM) Hct [42.0-54.0 %] 35.8 % 35.9 % 35.3 % *LOW* *LOW* *LOW* (12/13/19 5:51 AM) (12/12/19 3:50 PM) (12/11/19 4:1 4 AM) Hgb [14.0-18.0 g/dL] 11.9 g/dL 11.9 g/dL 11.6 g/dL *LOW* *LOW* *LOW* (12/13/19 5:51 AM) (12/12/19 3:50 PM) (12/11/19 4:1 4 AM) Hgb A1C [<=5.6 %] 5.4 % (12/13/19 5:51 AM) Potassium Lvl [3.5-5.1 3.2 mEq/L 2.7 mEq/L 4 3.6 mEq/L mEq/L] *LOW* *CRIT* (12/11/19 4:14 AM ) (12/13/19 5:51 AM) (12/12/19 3:50 PM) Lymphocytes [20.0-40.0 %] 7.3 % 7.4 % 10.8 % *LOW* *LOW* *LOW* (12/13/19 5:51 AM) (12/12/19 3:50 PM) (12/11/19 4:1 4 AM) MCH [27.0-31.0 pg] 29.6 pg 29.5 pg 30.0 pg (12/13/19 5:51 AM) (12/12/19 3:50 PM) (12/11/19 4:1 4 AM) MCHC [32.0-36.0 g/dL] 33.2 g/dL 33.2 g/dL 33.0 g/dL (12/13/19 5:51 AM) (12/12/19 3:50 PM) (12/11/19 4:1 4 AM) MCV [80.0-94.0 fL] 89.0 fL 88.8 fL 91.0 fL (12/13/19 5:51 AM) (12/12/19 3:50 PM) (12/11/19 4:1 4 AM) Magnesium Lvl [1.8-2.4 1.9 mg/dL mg/dL] (12/13/19 5:51 AM) Monocytes [2.0-12.0 %] 5.1 % 7.6 % 6.9 % (12/13/19 5:51 AM) (12/12/19 3:50 PM) (12/11/19 4:1 4 AM) MPV [7.4-10.4 fL] 9.7 fL 9.8 fL 10.1 fL (12/13/19 5:51 AM) (12/12/19 3:50 PM) (12/11/19 4:1 4 AM) Sodium Lvl [135-145 mEq/L] 134 mEq/L 135 mEq/L 138 m Eq/L *LOW* (12/12/19 3:50 PM) (12/11/19 4:14 AM) (12/13/19 5:51 AM) Platelet [133-450 K/CMM] 105 K/CMM 123 K/CMM 117 K/C MM *LOW* *LOW* *LOW* (12/13/19 5:51 AM) (12/12/19 3:50 PM) (12/11/19 4:1 4 AM) Segs [45.0-75.0 %] 86.4 % 84.7 % 81.9 % *HI* *HI* *HI* (12/13/19 5:51 AM) (12/12/19 3:50 PM) (12/11/19 4:1 4 AM) Total Protein [6.4-8.4 g/dL] 5.8 g/dL *LOW* (12/11/19 4:14 AM) RBC [4.70-6.10 M/CMM] 4.03 M/CMM 4.04 M/CMM 3.88 M/CMM *LOW* *LOW* *LOW* (12/13/19 5:51 AM) (12/12/19 3:50 PM) (12/11/19 4:1 4 AM) RBC Morph [Normal] Normal (12/12/19 3:50 PM) RDW [11.5-14.5 %] 14.9 % 14.7 % 14.7 % *HI* *HI* *HI* (12/13/19 5:51 AM) (12/12/19 3:50 PM) (12/11/19 4:1 4 AM) Bili Total [0.2-1.3 mg/dL] 1.2 mg/dL (12/11/19 4:14 AM) UA Bacteria [None Seen /HPF] Occasional /HPF *NA* (12/11/19 8:55 PM) UA Bili [Negative] Negative *NA* (12/11/19 8:55 PM) UA Blood [Negative] Large *ABN* (12/11/19 8:55 PM) UA Color Yellow *NA* (12/11/19 8:55 PM) UA Glucose [Negative mg/dL] Negative mg/dL *NA* (12/11/19 8:55 PM) UA Hyal Cast [0-2 /LPF] 1 /LPF (12/11/19 8:55 PM) UA Ketones [Negative mg/dL] Trace mg/dL *ABN* (12/11/19 8:55 PM) UA Leuk Est [Negative] Negative (12/11/19 8:55 PM) UA Mucus [None Seen /LPF] Few /LPF *NA* (12/11/19 8:55 PM) UA Nitrite [Negative] Negative (12/11/19 8:55 PM) UA pH [5.0-8.0] 5.0 (12/11/19 8:55 PM) UA Protein [Negative mg/dL] Negative mg/dL (12/11/19 8:55 PM) UA RBC [0-2 /HPF] >182 /HPF *HI* (12/11/19 8:55 PM) UA Spec Grav [<=1.030] 1.010 (12/11/19 8:55 PM) UA Sq Epi None Seen *NA* (12/11/19 8:55 PM) UA Turbidity [Clear] Slight *ABN* (12/11/19 8:55 PM) UA Urobilinogen [0.1-1.0 4.0 mg/dL mg/dL] *HI* (12/11/19 8:55 PM) UA WBC [0-5 /HPF] 14 /HPF *HI* (12/11/19 8:55 PM) WBC [3.7-10.4 K/CMM] 12.2 K/CMM 11.3 K/CMM 7.8 K/CMM *HI* *HI* (12/11/19 4:14 AM ) (12/13/19 5:51 AM) (12/12/19 3:50 PM) 1Result Comment: The eGFR is calculated using the CKD-EPI formula. In most young, healthy individualsthe eGFR will be >90 mL/min/1.73m2. The eGFR declines with age. An eGFR of 60-89 may be normal insome populations, particularly the elderly, for whom the CKD-EPI formula has not been extensively validated. Use of the eGFR is not recommended in the following populations: Individuals with unstable creatinine concentrations, including patients and those with serious co-morbid conditions. Patients with extremes in muscle mass or diet. The data above are obtained from the National Kidney Disease Education Program (NKDEP) which additionally recommends that when the eGFR is used in patients with extremes of body mass index for purposesof drug dosing, the eGFR should be multiplied by the estimated BMI.2Result Comment: The eGFR is calculated using the CKD-EPI formula. In most young, healthy individualsthe eGFR will be >90 mL/min/1.73m2. The eGFR declines with age. An eGFR of 60-89 may be normal insome populations, particularly the elderly, for whom the CKD-EPI formula has not been extensively validated. Use of the eGFR is not recommended in the following populations: Individuals with unstable creatinine concentrations, including patients and those with serious co-morbid conditions. Patients with extremes in muscle mass or diet. The data above are obtained from the National Kidney Disease Education Program (NKDEP) which additionally recommends that when the eGFR is used in patients with extremes of body mass index for purposesof drug dosing, the eGFR should be multiplied by the estimated BMI.3Result Comment: The eGFR is calculated using the CKD-EPI formula. In most young, healthy individualsthe eGFR will be >90 mL/min/1.73m2. The eGFR declines with age. An eGFR of 60-89 may be normal insome populations, particularly the elderly, for whom the CKD-EPI formula has not been extensively validated. Use of the eGFR is not recommended in the following populations: Individuals with unstable creatinine concentrations, including patients and those with serious co-morbid conditions. Patients with extremes in muscle mass or diet. The data above are obtained from the National Kidney Disease Education Program (NKDEP) which additionally recommends that when the eGFR is used in patients with extremes of body mass index for purposesof drug dosing, the eGFR should be multiplied by the estimated BMI.4Result Comment: Critical Result(s) called Beatris _ at 12/12/2019 16:50 by js. Read back OK.Microbiology Reports TEST:Culture: Urine STATUS:Auth (Verified) BODY SITE: SOURCE:Urine, Clean Catch COLLECTED DATE/TIME:12/12/19 7:54 AMFINAL REPORTNo Growth Immunizations Not Given Vaccine Date Status Refusal Reason pneumococcal 13-valent vaccine 12/14/19 Not Given P arent Or Guardian Refuses influenza virus vaccine, inactivated 12/14/19 Not Given Parent Or Guardian Refuses Procedures Procedure Date Related Diagnosis Body Site Status Cryotherapy to skin lesion1 01/08/18 Completed Implantation of cardioverter 05/04/15 Completed defibrillator with three electrode leads2 Cardiac catheterization, left heart3 Completed Implantation of defibrillator Completed Knee joint operation Complet ed Miscellaneous operations4 Co mpleted 1multiple lesions on his face.23.0 years remain - dependent.[id number] spine Social History Social History Type Response Alcohol Current, Type Beer. Frequen cy: 1-2 times per year. Alcohol use interferes with work or home : No. Drinks more than intended: No. Others hurt by drinking: No . Ready to change: No. Household alcohol concerns: No. Employment/School Status: Retired. Exercise 1 Substance Abuse Use: None. Smoking Status Former smoker; Previous dajuan tment: None; Ready to change: Yes; Concerns about tobacco use in household: Yes; Exposure to Tobacco Smoke None; Cigarette Smoking Last 365 Days No; Reg Smoking Cessation Counseling No; S [age]ed [age] age: 18.0; Stopped at age: 49; entered on: 12/10/19 1no regular exercise. Assessment and Plan Extracted from: Title: EP progress note Author: Sujata Kuhn MD Date: 12/14/19 Impression and Plan 1. Biv ICD -elevated RV threshold. Currently Biv pa leta at maximum output. awaiting to be transferred to medical center for possible laser lead extraction. 2. Altered mental status 3. Back pain 4. Fever: started empiric Abx. Will need ID consult after transfer.
--- OUTSIDE RECORDS SUMMARY | 2020-03-08 06:49 | XMS REPORT | Summary of Care ---
:1945 Author Organization [facility] Cardiology [place] Address [address] 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 Originally documented as BACTRIM. welps, xfjqjnagf5Zyoh migrated from [employer] on 02/24/15. Originally [...] lesions on his face.23.0 years remain - dependent.[id number] spine Social History Social History Type Response [...] Stopped a t age: 49; entered on: 01/12/18 1no regular exercise. Assessment and Plan No data available for this section
--- OUTSIDE RECORDS SUMMARY | 2020-03-08 06:49 | XMS REPORT | Summary of Care ---
:1945 Author Organization [facility] Cardiology [place] Address [address] 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 Originally documented as BACTRIM. welps, sflctnrma3Vtzh migrated from [employer] on 02/24/15. Originally [...] lesions on his face.23.0 years remain - dependent.[id number] spine Social History Social History Type Response [...]
--- OUTSIDE RECORDS SUMMARY | 2020-03-08 06:49 | XMS REPORT | Summary of Care ---
:1945 Author Organization [facility] Cardiology [place] Address [address] [place] [address]- Encounter HQ Leolar_jodee(FIN) [id number] Date(s): 02/16/18 - 02/16/18 [facility] Cardiology [place] [address] [place] [address] [phone] Attending Physician: Francis Garcia MD Vital Signs [...] Essential hypertension(Confirmed) Active HTN - Hypertension(Confirmed) Resolved Snhsnlznicoruk44, 11 Active Hypertensive fdkevblo39, 13 Active Pacemaker rhythm(Confirmed) Resolved Patient with cardiac , 15 08/03/12 Resolved Preoperative cardiovascular 12/20/13 Resolved kazhsolbhrp80, 17 1Data migrated from [employer] on [...] on 02/24/15. Originally documented as BACTRIM. welps, lhcbprdxe6Rmzv migrated from [employer] on 02/24/15. Originally [...] lesions on his face.23.0 years remain - dependent.[id number] spine Social History Social History Type Response [...]
--- OUTSIDE RECORDS SUMMARY | 2020-03-08 06:49 | XMS REPORT | Summary of Care ---
:1945 Author Organization [facility] Cardiology [place] Address [address] [place] [address]- Encounter HQ Dotntr_jodee(FIN) [id number] Date(s): 12/10/19 - 12/11/19 [facility] [address] 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 Originally documented as BACTRIM. welps, rbhfgpkde3Dqfi migrated from [employer] on 02/24/15. Originally [...] lesions on his face.23.0 years remain - dependent.[id number] spine Social History Social History Type Response [...] 12/10/19 1no regular exercise. Assessment and Plan No data available for this section
--- OUTSIDE RECORDS SUMMARY | 2020-03-08 06:49 | XMS REPORT | Summary of Care ---
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 Originally documented as BACTRIM. welps, expfrtcyt5Bwzz migrated from [employer] on 02/24/15. Originally [...] lesions on his face.23.0 years remain - dependent.[id number] spine Social History Social History Type Response [...]
--- OUTSIDE RECORDS SUMMARY | 2020-03-08 06:49 | XMS REPORT | Summary of Care ---
:1945 Author Organization [facility] Cardiology [place] Address [address] [place] [address]- Encounter HQ Rowan_jodee(FIN) [id number] Date(s): 03/16/18 - 03/16/18 [facility] [address] [place] [address] [phone] Discharge Disposition: Home or Self Care Attending Physician: Francis Garcia MD Vital Signs [...] Essential hypertension(Confirmed) Active HTN - Hypertension(Confirmed) Resolved Bpszrctihrpcpz69, 11 Active Hypertensive ubrtyovy54, 13 Active Pacemaker rhythm(Confirmed) Resolved Patient with cardiac vvnoagkeu24, 15 08/03/12 Resolved Preoperative cardiovascular 12/20/13 Resolved wdwxcbddkxy90, 17 1Data migrated from [employer] on [...] on 02/24/15. Originally documented as BACTRIM. welps, vnlmgxrcv3Ufag migrated from [employer] on 02/24/15. Originally [...] lesions on his face.23.0 years remain - dependent.[id number] spine Social History Social History Type Response [...]
--- OUTSIDE RECORDS SUMMARY | 2020-03-08 06:50 | XMS REPORT | Summary of Care ---
:1945 Author Organization [facility] Cardiology [place] Address 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 Originally documented as BACTRIM. welps, ztdspaddu7Hvyx migrated from [employer] on 02/24/15. Originally documented as TETANUS TOXOID. unknown Medications metolazone 2.5 mg oral tablet 2.5 mg = 1 tab, PO, Daily, # 30 tab, 6 Refill(s), Pharmacy: [facility]/pharmacy #[id number] Start Date: 03/03/18 Status: Ordered Results No data available for [...] lesions on his face.23.0 years remain - dependent.[id number] spine Social History Social History Type Response [...]
--- OUTSIDE RECORDS SUMMARY | 2020-03-08 06:50 | XMS REPORT | Summary of Care ---
:1945 Author Organization [facility] Cardiology [place] Address [address] [place] [address]- Encounter HQ Dotntr_jodee(FIN) [id number] Date(s): 08/03/19 - 08/04/19 [facility] [address] 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 Originally documented as BACTRIM. welps, jtmlirqil5Capr migrated from [employer] on 02/24/15. Originally [...] lesions on his face.23.0 years remain - dependent.[id number] spine Social History Social History Type Response Alcohol Current, Type Beer. Frequen cy: 1-2 times per year. Employment/School Status: Retired. Exercise 1 Smoking Status Former smoker; Previous dajuan tment: [...]
--- OUTSIDE RECORDS SUMMARY | 2020-03-08 06:50 | XMS REPORT | Summary of Care ---
:1945 Author Organization [facility] Cardiology [place] Address [address] 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 Originally documented as BACTRIM. welps, olydisrvc5Fnvp migrated from [employer] on 02/24/15. Originally documented as TETANUS TOXOID. unknown Medications metolazone 2.5 mg oral tablet 2.5 mg = 1 tab, PO, Daily, # 30 tab, 6 Refill(s), Pharmacy: [facility]/pharmacy #[id number] Start Date: 03/03/18 Status: Ordered [...] lesions on his face.23.0 years remain - dependent.[id number] spine Social History Social History Type Response [...]
--- OUTSIDE RECORDS SUMMARY | 2020-03-08 06:51 | XMS REPORT | Summary of Care ---
:1945 Author Organization [facility] Cardiology [place] Address [address] [place] [address]- Encounter HQ Luz Maria(FIN) [id number] Date(s): 01/12/18 - 01/12/18 [facility] Cardiology [place] [address] [place] [address] [phone] Discharge Disposition: Home or Self Care Attending Physician: Francis Garcia MD Vital Signs Most recent to oldest [Reference Range]: 1 Height 182.88 cm (01/12/18 11:06 AM) Temperature Oral [96.4-99.1 DegF] 98.0 DegF (01/12/18 11:06 AM) Blood Pressure [90-140/60-90 mmHg] 122/70 mmHg (01/12/18 11:06 AM) Peripheral Pulse Rate [60-100 bpm] 62 bpm (01/12/18 11:06 AM) Weight 123.182 kg (01/12/18 11:06 AM) Body Mass Index 36.83 m2 (01/12/18 11:06 AM) Problem List Condition Effective Dates Status Health Status Informant Asbestosis1 07/07/14 Active 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 on 03/25/15.2Data migrated from [employer] on [...] on 02/24/15. Originally documented as BACTRIM. welps, sgmcnyrez4Jhwi migrated from [employer] on 02/24/15. Originally documented as TETANUS TOXOID. unknown Medications Aleve 220 mg oral capsule 220 mg = 1 cap, PO, PRN, 0 Refill(s) Start Date: 01/12/18 Status: OrderedGarlic Oil oral capsule 1,000 mg =, PO, Daily, TAKES 1-2 TABLET, 0 Refill(s) Start Date: 01/12/18 Status: Orderedhydrochlorothiazide 25 mg, PO, Daily, 0 Refill(s) Start Date: 01/12/18 Status: Orderedlabetalol 100 mg oral tablet 100 mg = 1 tab, PO, BID, # 60 tab, 3 Refill(s), other Start Date: 01/12/18 Stop Date: 05/12/18 Status: Orderedmagnesium oxide 400 mg oral tablet 400 mg = 1 tab, PO, BID, 0 Refill(s) Start Date: 01/12/18 Status: Ordered Results No data available for [...] lesions on his face.23.0 years remain - dependent.[id number] spine Social History Social History Type Response [...]
--- OUTSIDE RECORDS SUMMARY | 2020-03-08 06:51 | XMS REPORT | Summary of Care ---
:1945 Author Organization [facility] Radiology [place] Address [address] [address]- Encounter HQ Leolar_jodee(FIN) [id number] Date(s): 02/04/19 - 02/04/19 [facility] Radiology [place] [address] [place] [address] [phone] Discharge Disposition: Home or Self Care Attending [...] Essential hypertension(Confirmed) Active HTN - Hypertension(Confirmed) Resolved Bdfzwdporqxamk17, 11 Active Hypertensive , 13 Active Pacemaker rhythm(Confirmed) Resolved Patient with cardiac gvtndaepu15, 15 08/03/12 Resolved Preoperative cardiovascular 12/20/13 Resolved timybbzxoeo57, 17 1Data migrated from [employer] on [...] on 02/24/15. Originally documented as BACTRIM. welps, krzghlbpx0Gbjj migrated from [employer] on 02/24/15. Originally [...] lesions on his face.23.0 years remain - dependent.[id number] spine Social History Social History Type Response [...] Stopped a t age: 49; entered on: 02/04/19 1no regular exercise. Assessment and Plan No data available for this section
--- OUTSIDE RECORDS SUMMARY | 2020-03-08 06:51 | XMS REPORT | Summary of Care ---
:1945 Author Organization [facility] Cardiology [place] Address [address] 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 Originally documented as BACTRIM. welps, vxddomdkl5Qbcm migrated from [employer] on 02/24/15. Originally [...] lesions on his face.23.0 years remain - dependent.[id number] spine Social History Social History Type Response [...]
--- OUTSIDE RECORDS SUMMARY | 2020-03-08 06:51 | XMS REPORT | Summary of Care ---
:1945 Author Organization [facility] Cardiology [place] Address [address] [place] [address]- Encounter HQ Luz Maria(FIN) [id number] Date(s): 02/04/19 - 02/04/19 [facility] Cardiology [place] [address] 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 Originally documented as BACTRIM. welps, mltnaqgpy9Mzfo migrated from [employer] on 02/24/15. Originally documented as TETANUS TOXOID. unknown Medications Keflex 500 mg oral capsule 500 mg = 1 cap, PO, QID, X 7 day, # 28 cap, 0 Refill(s), Pharmacy: [facility]/pharmacy #[id number] Start Date: 02/04/19 Stop Date: 02/11/19 Status: Ordered Results No data available for [...] lesions on his face.23.0 years remain - dependent.[id number] spine Social History Social History Type Response [...]
--- OUTSIDE RECORDS SUMMARY | 2020-03-08 06:52 | XMS REPORT | Summary of Care ---
:1945 Author Organization [facility] Cardiology [place] Address [address] [place] [address]- Encounter HQ Rowan_jodee(FIN) [id number] Date(s): 12/28/19 - 12/28/19 [facility] Cardiology [place] [address] 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 Originally documented as BACTRIM. welps, tgkpeeftj3Ryjj migrated from [employer] on 02/24/15. Originally documented as TETANUS TOXOID. unknown Medications No data available for this section Results No data available for this section Immunizations Not Given Vaccine Date Status Refusal [...] lesions on his face.23.0 years remain - dependent.[id number] spine Social History Social History Type Response [...]
--- OUTSIDE RECORDS SUMMARY | 2020-03-08 06:52 | XMS REPORT | Summary of Care ---
:1945 Author Organization [facility] Cardiology [place] Address [address] [address]- Encounter HQ Dotntr_jodee(FIN) [id number] Date(s): 11/01/19 - 11/02/19 [facility] [address] 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 Originally documented as BACTRIM. welps, ssrtkdwhr6Ogql migrated from [employer] on 02/24/15. Originally [...] lesions on his face.23.0 years remain - dependent.[id number] spine Social History Social History Type Response [...]
--- OUTSIDE RECORDS SUMMARY | 2020-03-08 06:52 | XMS REPORT | Summary of Care ---
:1945 Author Encounter DANIEL Loera(CHARLIE) [id number] Date(s): 05/03/14 - 05/03/14 [facility] [address] Discharge Diagnosis: Dizziness Discharge Disposition: Home Physician Attending: Derek James MD Reason for Visit DIZZINESS Vital Signs Most recent to oldest [Reference Range]: 1 2 Height 182.88 cm (05/03/14 9:25 AM) Temperature Oral [96.4-99.1 DegF] 98.1 DegF (05/03/14 9:25 AM) Systolic Blood Pressure [90-140 mmHg] 156 mmHg 16 2 mmHg *HI* *HI* (05/03/14 11:50 AM) (05/03/14 9:25 AM) Diastolic Blood Pressure [60-90 mmHg] 88 mmHg 87 mmHg (05/03/14 11:50 AM) (05/03/14 9:25 AM) Respiratory Rate [14-20 BRMIN] 16 BRMIN 16 BRMIN (05/03/14 11:50 AM) (05/03/14 9:25 AM) Peripheral Pulse Rate [60-100 bpm] 62 bpm 60 bp m (05/03/14 11:50 AM) (05/03/14 9:25 AM) Weight 76.818 kg (05/03/14 9:25 AM) Body Mass Index 22.97 m2 (05/03/14 9:25 AM) Problem List Condition Effective Dates Status Health Status Informant Essential hypertension(Confirmed) Active HTN - Hypertension(Confirmed) Resolved Pacemaker rhythm(Confirmed) Resolved Allergies, Adverse Reactions, Alerts Substance Reaction Severity Status Bactrim Active Medications Aleve 0 Refill(s) Start Date: 05/03/14 Status: OrderedamLODIPine-benazepril 5 mg-20 mg oral capsule 0 Refill(s) Start Date: 05/03/14 Status: Orderedaspirin 81 mg tablet, enteric coated 0 Refill(s) Start Date: 05/03/14 Status: Orderedhydrochlorothiazide 0 Refill(s) Start Date: 05/03/14 Status: Orderedlabetalol 200 mg oral tablet 0 Refill(s) Start Date: 05/03/14 Status: OrderedLovaza 0 Refill(s) Start Date: 05/03/14 Status: Orderedpravastatin 80 mg oral tablet 0 Refill(s) Start Date: 05/03/14 Status: OrderedSaline Flush 0.9% 5 mL, Route: IVP, Drug Form: INJ, Dosing Weight 76.818, kg, PRN, PRN Line Flush, Start date: 05/03/14 9:39:00, Duration: 30 day, Stop date: 06/02/14 9:38:00 Notes: (Same as: BD Posiflush) Start Date: 05/03/14 Stop Date: 05/03/14 Status: Discontinuedsertraline 25 mg oral tablet 0 Refill(s) Start Date: 05/03/14 Status: Orderedtamsulosin 0.4 mg oral capsule 0 Refill(s) Start Date: 05/03/14 Status: Ordered Results ELECTROLYTES Most recent to oldest [Reference Range]: 1 Sodium Lvl [135-145 mEq/L] 142 mEq/L (05/03/14 9:45 AM) Potassium Lvl [3.5-5.1 mEq/L] 3.4 mEq/L *LOW* (05/03/14 9:45 AM) Chloride Lvl [95-109 mEq/L] 107 mEq/L (05/03/14 9:45 AM) CO2 [24-32 mEq/L] 29 mEq/L (05/03/14 9:45 AM) AGAP [10.0-20.0 mEq/L] 9.4 mEq/L *LOW* (05/03/14 9:45 AM) CHEM PANEL Most recent to oldest [Reference Range]: 1 Creatinine Lvl [0.5-1.4 mg/dL] 1.1 mg/dL (05/03/14 9:45 AM) eGFR 68 mL/min/1.73m2 1 *NA* (05/03/14 9:45 AM) BUN [7-22 mg/dL] 18 mg/dL (05/03/14 9:45 AM) Glucose Lvl [70-99 mg/dL] 90 mg/dL 2 (05/03/14 9:45 AM) Calcium Lvl [8.5-10.5 mg/dL] 9.5 mg/dL (05/03/14 9:45 AM) 1Result Comment: The eGFR is calculated using [...] eGFR should be multiplied by the estimated BMI.2Interpretive Data: Adult reference range values reflect the clinical guidelines of the [place] [employer].CARDIAC ENZYMES Most recent to oldest [Reference Range]: 1 Total CK [12-191 unit/L] 149 unit/L (05/03/14 9:45 AM) CK MB [0.5-3.6 ng/mL] 1.9 ng/mL (05/03/14 9:45 AM) CK MB Index [0.0-2.5] 1.3 (05/03/14 9:45 AM) Troponin-I [0.00-0.40 ng/mL] 0.02 ng/mL (05/03/14 9:45 AM) HEMATOLOGY Most recent to oldest [Reference Range]: 1 WBC [3.7-10.4 K/CMM] 5.6 K/CMM (05/03/14 9:45 AM) RBC [4.70-6.10 M/CMM] 4.45 M/CMM *LOW* (05/03/14 9:45 AM) Hgb [14.0-18.0 g/dL] 13.9 g/dL *LOW* (05/03/14 9:45 AM) Hct [42.0-54.0 %] 40.8 % *LOW* (05/03/14 9:45 AM) MCV [80.0-94.0 fL] 91.8 fL (05/03/14 9:45 AM) MCH [27.0-31.0 pg] 31.2 pg *HI* (05/03/14 9:45 AM) MCHC [32.0-36.0 g/dL] 34.0 g/dL (05/03/14 9:45 AM) RDW [11.5-14.5 %] 13.2 % (05/03/14 9:45 AM) Platelet [133-450 K/CMM] 174 K/CMM (05/03/14 9:45 AM) MPV [7.4-10.4 fL] 8.8 fL (05/03/14 9:45 AM) Segs [45.0-75.0 %] 56.2 % (05/03/14 9:45 AM) Lymphocytes [20.0-40.0 %] 31.7 % (05/03/14 9:45 AM) Monocytes [2.0-12.0 %] 8.1 % (05/03/14 9:45 AM) Eosinophils [0.0-4.0 %] 3.3 % (05/03/14 9:45 AM) Basophils [0.0-1.0 %] 0.7 % (05/03/14 9:45 AM) Segs-Bands # [1.5-8.1 K/CMM] 3.1 K/CMM (05/03/14 9:45 AM) Lymphocytes # [1.0-5.5 K/CMM] 1.8 K/CMM (05/03/14 9:45 AM) Monocytes # [0.0-0.8 K/CMM] 0.5 K/CMM (05/03/14 9:45 AM) Eosinophils # [0.0-0.5 K/CMM] 0.2 K/CMM (05/03/14 9:45 AM) Basophils # [0.0-0.2 K/CMM] 0.0 K/CMM (05/03/14 9:45 AM) PT [12.0-14.7 seconds] 12.9 seconds (05/03/14 9:45 AM) INR [0.85-1.17] 0.98 3 (05/03/14 9:45 AM) PTT [22.9-35.8 seconds] 28.7 seconds 4 (05/03/14 9:45 AM) 3Interpretive Data: RECOMMENDED RANGES FOR PROTIME INR: 2.0-3.0 for most medical and surgical thromboembolic states. 2.5-3.5 for artificial heart valves and recurrent embolism. INR SHOULD BE USED ONLY FOR PATIENTS ON STABLE ANTICOAGULANT THERAPY.4 Interpretive Data: Heparin Therapeutic Range: 57 - 92 Seconds Medications Administered During Your Visit No data available for this section Immunizations No data available for this section Procedures Procedure Type Body Site Date of Procedure Related Diagno sis Knee joint operation Miscellaneous operations1 1Lumbar spine Social History Social History Type Response Smoking Status Never smoker, Exposure to To bacco Smoke None, Cigarette Smoking Last 365 Days No, Reg Jono g Cessation Counseling No
--- OUTSIDE RECORDS SUMMARY | 2020-03-08 06:52 | XMS REPORT | Summary of Care ---
:1945 Author Organization [facility] Cardiology [place] Address [address] [place] [address]- Encounter HQ Dotntr_jodee(FIN) [id number] Date(s): 05/12/18 - 05/13/18 [facility] 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 Originally documented as BACTRIM. welps, [id number] migrated from [employer] on 02/24/15. Originally documented as TETANUS TOXOID. unknown Medications metolazone 2.5 mg oral tablet 2.5 mg = 1 tab, PO, Daily, # 30 tab, 3 Refill(s), Pharmacy: [facility]/pharmacy #[id number] Start Date: 05/12/18 Stop Date: 09/02/18 Status: Completed Results No data available for this section [...] lesions on his face.23.0 years remain - dependent.[id number] spine Social History Social History Type Response [...]
--- OUTSIDE RECORDS SUMMARY | 2020-03-08 06:52 | XMS REPORT | Summary of Care ---
:1945 Author Organization [facility] Cardiology [place] Address [address] [place] [address]- Encounter HQ Luz Maria(FIN) [id number] Date(s): 02/11/19 - 02/11/19 [facility] Cardiology [place] [address] 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) Body mass index 30+ - obesity2 07/07/14 Active Cardiomyopathy(Confirmed)3, 4 07/08/14 Active Complete atrioventricular block5, 6 12/20/13 Active Coronary atherosclerosis7 Active Dyspnea on exertion8, 9 Active Essential hypertension(Confirmed) Active HTN - Hypertension(Confirmed) Resolved Drslxdmaxsvqsz71, 11 Active Hypertensive ritvpvzg47, 13 Active Pacemaker rhythm(Confirmed) Resolved Patient with cardiac dkhsvatbl15, 15 08/03/12 Resolved Preoperative cardiovascular 12/20/13 Resolved [id number], 17 1Data migrated from [employer] on 03/25/15.2Data migrated from [employer] on [...] on 02/24/15. Originally documented as BACTRIM. welps, [id number] migrated from [employer] on 02/24/15. Originally documented as TETANUS TOXOID. unknown Medications No Known Medications Results No data available for this section [...] lesions on his face.23.0 years remain - dependent.[id number] spine Social History Social History Type Response [...]
--- OUTSIDE RECORDS SUMMARY | 2020-03-08 06:59 | XMS REPORT ---
:1945 Author Organization [facility] t Address [address] [place] [address] Care Team Providers Name Role Phone SARA MANJARREZ Attending Clinician Unavailable Oumou Francis Attending Clinician Dragan Crowe Attending Clinician Margaret Garcia Attending Clinician Jessica James Attending Clinician JOSSELINE Admitting Clinician Unavailable Tresa Crowe Admitting Clinician Problems This patient has no known problems. Allergies, Adverse Reactions, Alerts This patient has no known allergies or adverse reactions. Medications This patient has no known medications. Procedures This patient has no known procedures. Encounters Start End Encounter Admission Attending Care Care Encounter Source Date/Time Date/Time Type Type Clinicians Facility Department ID 2019-12-10 Inpatient [facility] MED [id number] [facility] W 20:44:00 2019-12-28 2019-12-28 Outpatient Oumou Francis MG [facility] [id number] Memoria 11:15:00 11:15:00 Dolly Smith 2019-12-10 2019-12-14 [facility] [id number] MH 20:44:00 23:10:[address] [facility] l 2019-12-10 2019-12-11 Outpatient [facility] [id number] Memoria 14:46:01 23:59:59 10 oumou Smith 2019-11-01 2019-11-02 Outpatient [facility] [id number] Memoria 09:36:18 23:59:59 09 oumou Smith 2019-08-03 2019-08-04 Outpatient [facility] [id number] Memoria 09:21:35 23:59:59 08 oumou Smith 2019-02-26 2019-02-27 Outpatient [facility] [id number] Memoria 14:14:03 23:59:59 07 oumou Smith 2019-02-11 2019-02-11 Outpatient Radha, [facility] [id number] Memoria 09:00:00 23:59:59 Francis Robles 12 oumou Smith 2019-02-04 2019-02-04 Outpatient Radha, [facility] [id number] Memoria 09:00:00 23:59:59 Francis Robles 11 oumou Smith 2019-02-04 2019-02-04 Outpatient Radha, [facility] [id number] Memoria 08:00:00 23:59:59 Francis Robles 10 oumou Smith 2018-09-02 2018-09-03 Outpatient [facility] [id number] Memoria 09:04:00 23:59:59 06 oumou Smith 2018-05-12 2018-05-13 Outpatient [facility] [id number] Memoria 12:14:00 23:59:59 05 oumou Smith 2018-03-16 2018-03-16 Outpatient Radha, [facility] [id number] Memoria 09:00:00 23:59:59 Francis Robles 09 oumou Smith 2018-03-03 2018-03-04 Outpatient [facility] [id number] Memoria 12:09:00 23:59:59 04 oumou Smith 2018-03-03 2018-03-04 Outpatient [facility] [id number] Memoria 12:09:00 23:59:59 04 oumou Smith 2018-02-16 2018-02-16 Outpatient Radha, [facility] [id number] Memoria 10:30:00 10:30:00 Francis Robles 06 oumou Smith 2018-02-09 2018-02-09 Outpatient Radha, [facility] [id number] Memoria 11:00:00 11:00:00 Francis Robles 08 oumou Smith 2018-02-04 2018-02-05 Outpatient [facility] [id number] Memoria 10:59:00 23:59:59 03 oumou Smith 2018-02-04 2018-02-05 Outpatient [facility] [id number] Memoria 10:59:00 23:59:59 03 oumou Smith 2018-01-12 2018-01-12 Outpatient Radha [facility] [id number] Memoria 11:00:00 23:59:59 Francis Robles 07 oumou Smith 2017-10-01 2017-10-02 Outpatient [facility] [id number] Memoria 13:38:00 23:59:59 02 oumou Smith 2014-05-03 2014-05-03 [facility] [id number] 09:25:00 11:51:00 [place] 01 Results Test Description Test Time Test Comments Results Result Comments Source FUNGUS CULTURE + SMEAR 2020-02-15 17:03:00 Test Item Value Reference Range Interpretation Comme nts CULTURE (BEAKER) (test code = 1095) No fungus isolated in 28 days FUNGUS SMEAR (BEAKER) (test code = 1406) No fungi seen AFB CULTURE + SMEAR (NON-SPUTUM)2020-01-31 13:35:00 Test Item Value Reference Range Interpretation Comments CULTURE (BEAKER) (test No acid-fast bacilli code = 1095) isolated in 42 days AFB SMEAR (BEAKER) No acid fast bacilli (test code = 994) seen POCT-GLUCOSE [id number] 18:11:00 Test Item Value Reference Range Interpretation Comments POC-GLUCOSE METER 112 mg/dL 70-110 H : TESTED A T [facility] 6720 (BEAKER) (test code = [email or web address] [facility], 1538) 41427: Choir Singer/Techni lars ID = [id number] for HE RNANDEZ, LISBET POCT-GLUCOSE [id number] 13:57:00 Test Item Value Reference Range Interpretation Comments POC-GLUCOSE METER 128 mg/dL 70-110 H : TESTED A T [facility] 6720 (BEAKER) (test code = [facility] Parature [facility], 1538) 39201: Choir Singer/Techni lars ID = [id number] for HE RNANDEZ, LISBET [id number] 05:52:00 Test Item Value Reference Range Interpretation Comments MAGNESIUM (BEAKER) (test code = 2.1 mg/dL 1.6-2.6 627) Choir Singer ID - LV LBASIC METABOLIC [id number] 05:52:00 Test Item Value Reference Range Interpretation Comments SODIUM (BEAKER) 148 meq/L 136-145 H (test code = 381) POTASSIUM (BEAKER) 3.6 meq/L 3.5-5.1 (test code = 379) CHLORIDE (BEAKER) 119 meq/L 98-107 H (test code = 382) CO2 (BEAKER) (test 24 meq/L 22-29 code = 355) BLOOD UREA NITROGEN 23 mg/dL 7-21 H (BEAKER) (test code = 354) CREATININE (BEAKER) 0.78 mg/dL 0.57-1.25 (test code = 358) GLUCOSE RANDOM 123 mg/dL 70-105 H (BEAKER) (test code = 652) CALCIUM (BEAKER) 9.0 mg/dL 8.4-10.2 (test code = 697) EGFR (BEAKER) (test 97 mL/min/1.73 ESTIMA NINA GFR IS code = 1092) sq m NOT ACCURATE CREATININE CLEARANCE IN PREDICTING GLOMERULAR FILTRATION RATE . ESTIMATED GFR I S NOT APPLICABLE FOR DIALYSIS PATIEN TS. Choir Singer ID - PIAYA LCBC (HEMOGRAM ONLY)2020-01-27 05:45:00 Test Item Value Reference Range Interpretation Comments WHITE BLOOD CELL COUNT 4.4 K/ L 3.5-10.5 (BEAKER) (test code = 775) RED BLOOD CELL COUNT 3.04 M/ L 4.63-6.08 L (BEAKER) (test code = 761) HEMOGLOBIN (BEAKER) 8.2 GM/DL 13.7-17.5 L (test code = 410) HEMATOCRIT (BEAKER) 29.4 % 40.1-51.0 L (test code = 411) MEAN CORPUSCULAR 96.7 fL 79.0-92.2 H Discordant MCV VOLUME (BEAKER) (test result s compared to code = 753) previous result s; clinical correl ation required. MEAN CORPUSCULAR 27.0 pg 25.7-32.2 HEMOGLOBIN (BEAKER) (test code = 751) MEAN CORPUSCULAR 27.9 GM/DL 32.3-36.5 L HEMOGLOBIN CONC (BEAKER) (test code = 752) RED CELL DISTRIBUTION 16.1 % 11.6-14.4 H WIDTH (BEAKER) (test code = 412) PLATELET COUNT 199 K/CU MM 150-450 (BEAKER) (test code = 756) MEAN PLATELET VOLUME 9.2 fL 9.4-12.4 L (BEAKER) (test code = 754) NUCLEATED RED BLOOD 0 /100 WBC 0-0 CELLS (BEAKER) (test code = 413) POCT-GLUCOSE [id number] 03:55:00 Test Item Value Reference Range Interpretation Comments POC-GLUCOSE METER 114 mg/dL 70-110 H : TESTED A T [facility] 6720 (BEAKER) (test code = [facility], 1538) 23869: Choir Singer/Techni lars ID = [id number] for MICHELLE MATHIS POCT-GLUCOSE [id number] 18:25:00 Test Item Value Reference Range Interpretation Comments POC-GLUCOSE METER 88 mg/dL 70-110 : TESTED A T [facility] 6720 (BEAKER) (test code = [facility], 1538) 07531: Choir Singer/Techni lars ID = [id number] for CRISTIN BROOKS POCT-GLUCOSE [id number] 12:51:00 Test Item Value Reference Range Interpretation Comments POC-GLUCOSE METER 89 mg/dL 70-110 : TESTED A T [facility] 6720 (BEAKER) (test code = [facility], 1538) 05162: Choir Singer/Techni lars ID = [id number] for LISBET SOUZA BASIC METABOLIC [id number] 06:36:00 Test Item Value Reference Range Interpretation Comments SODIUM (BEAKER) 151 meq/L 136-145 H (test code = 381) POTASSIUM (BEAKER) 3.7 meq/L 3.5-5.1 (test code = 379) CHLORIDE (BEAKER) 121 meq/L 98-107 H (test code = 382) CO2 (BEAKER) (test 25 meq/L 22-29 code = 355) BLOOD UREA NITROGEN 30 mg/dL 7-21 H (BEAKER) (test code = 354) CREATININE (BEAKER) 0.83 mg/dL 0.57-1.25 (test code = 358) GLUCOSE RANDOM 96 mg/dL 70-105 (BEAKER) (test code = 652) CALCIUM (BEAKER) 9.2 mg/dL 8.4-10.2 (test code = 697) EGFR (BEAKER) (test 90 mL/min/1.73 ESTIMA NINA GFR IS code = 1092) sq m NOT ACCURATE CREATININE CLEARANCE IN PREDICTING GLOMERULAR FILTRATION RATE . ESTIMATED GFR I S NOT APPLICABLE FOR DIALYSIS PATIEN TS. Choir Singer ID - [id number] (HEMOGRAM ONLY)2020-01-26 06:35:00 Test Item Value Reference Range Interpretation Comments WHITE BLOOD CELL COUNT (BEAKER) 4.5 K/ L 3.5-10.5 (test code = 775) RED BLOOD CELL COUNT (BEAKER) 3.22 M/ L 4.63-6.08 L (test code = 761) HEMOGLOBIN (BEAKER) (test code = 9.1 GM/DL 13.7-17.5 L 410) HEMATOCRIT (BEAKER) (test code = 32.6 % 40.1-51.0 L 411) MEAN CORPUSCULAR VOLUME (BEAKER) 101.2 fL 79.0-92.2 H (test code = 753) MEAN CORPUSCULAR HEMOGLOBIN 28.3 pg 25.7-32.2 (BEAKER) (test code = 751) MEAN CORPUSCULAR HEMOGLOBIN CONC 27.9 GM/DL 32.3-36.5 L (BEAKER) (test code = 752) RED CELL DISTRIBUTION WIDTH 16.4 % 11.6-14.4 H (BEAKER) (test code = 412) PLATELET COUNT (BEAKER) (test 199 K/CU MM 150-450 code = 756) MEAN PLATELET VOLUME (BEAKER) 9.8 fL 9.4-12.4 (test code = 754) NUCLEATED RED BLOOD CELLS 0 /100 WBC 0-0 (BEAKER) (test code = 413) POCT-GLUCOSE [id number] 00:29:00 Test Item Value Reference Range Interpretation Comments POC-GLUCOSE METER 106 mg/dL 70-110 : TESTED A T [facility] 6720 (BEAKER) (test code [facility], = 1538) 51271: Choir Singer/Techni lars ID = [id number] for CARLOS WHITE TROPONIN [id number] 18:42:00 Test Item Value Reference Range Interpretation Comments TROPONIN I (BEAKER) (test code = [...] failure, acidosis, acute neurological disease, and persistent tachyarrhythmia.Choir Singer ID - DBPOCT-GLUCOSE METER 2020-01-25 15:50:00 Test Item Value Reference Range Interpretation Comments POC-GLUCOSE METER 98 mg/dL 70-110 : TESTED A T [facility] 6720 (BEAKER) (test code = [facility], 1538) 31751: Choir Singer/Techni lars ID = [id number] for DANIELLE HDIAZ POCT-GLUCOSE [id number] 12:27:00 Test Item Value Reference Range Interpretation Comments POC-GLUCOSE METER 90 mg/dL 70-110 : TESTED A T [facility] 6720 (BEAKER) (test code = [facility], 1538) 74526: Choir Singer/Techni lars ID = [id number] for DANIELLE HDIAZ TROPONIN [id number] 09:18:00 Test Item Value Reference Range Interpretation Comments TROPONIN I (BEAKER) (test code = 0.05 ng/mL 0.00-0.03 H 397) Troponin I (TnI) levels must be interpreted [...] failure, acidosis, acute neurological disease, and persistent tachyarrhythmia.Choir Singer ID - ADAMARIS MCBC W/PLT COUNT & AUTO [id number] 06:21:00 Test Item Value Reference Range Interpretation Comments WHITE BLOOD CELL COUNT (BEAKER) 5.3 K/ L 3.5-10.5 (test code = 775) RED BLOOD CELL COUNT (BEAKER) 3.23 M/ L 4.63-6.08 L (test code = 761) HEMOGLOBIN (BEAKER) (test code = 8.8 GM/DL 13.7-17.5 L 410) HEMATOCRIT (BEAKER) (test code = 31.8 % 40.1-51.0 L 411) MEAN CORPUSCULAR VOLUME (BEAKER) 98.5 fL 79.0-92.2 H (test code = 753) MEAN CORPUSCULAR HEMOGLOBIN 27.2 pg 25.7-32.2 (BEAKER) (test code = 751) MEAN CORPUSCULAR HEMOGLOBIN CONC 27.7 GM/DL 32.3-36.5 L (BEAKER) (test code = 752) RED CELL DISTRIBUTION WIDTH 16.7 % 11.6-14.4 H (BEAKER) (test code = 412) PLATELET COUNT (BEAKER) (test 251 K/CU MM 150-450 code = 756) MEAN PLATELET VOLUME (BEAKER) 9.7 fL 9.4-12.4 (test code = 754) NUCLEATED RED BLOOD CELLS 0 /100 WBC 0-0 (BEAKER) (test code = 413) NEUTROPHILS RELATIVE PERCENT 71 % (BEAKER) (test code = 429) LYMPHOCYTES RELATIVE PERCENT 16 % (BEAKER) (test code = 430) MONOCYTES RELATIVE PERCENT 9 % (BEAKER) (test code = 431) EOSINOPHILS RELATIVE PERCENT 2 % (BEAKER) (test code = 432) BASOPHILS RELATIVE PERCENT 1 % (BEAKER) (test code = 437) NEUTROPHILS ABSOLUTE COUNT 3.76 K/ L 1.78-5.38 (BEAKER) (test code = 670) LYMPHOCYTES ABSOLUTE COUNT 0.85 K/ L 1.32-3.57 L (BEAKER) (test code = 414) MONOCYTES ABSOLUTE COUNT (BEAKER) 0.49 K/ L 0.30-0.82 (test code = 415) EOSINOPHILS ABSOLUTE COUNT 0.11 K/ L 0.04-0.54 (BEAKER) (test code = 416) BASOPHILS ABSOLUTE COUNT (BEAKER) 0.04 K/ L 0.01-0.08 (test code = 417) IMMATURE GRANULOCYTES-RELATIVE 2 % 0-1 H PERCENT (BEAKER) (test code = 2801) BASIC METABOLIC [id number] 06:09:00 Test Item Value Reference Range Interpretation Comments SODIUM (BEAKER) 151 meq/L 136-145 H (test code = 381) POTASSIUM (BEAKER) 4.1 meq/L 3.5-5.1 Specimen slightly (test code = 379) hemolyzed CHLORIDE (BEAKER) 119 meq/L 98-107 H (test code = 382) CO2 (BEAKER) (test 26 meq/L 22-29 code = 355) BLOOD UREA NITROGEN 37 mg/dL 7-21 H (BEAKER) (test code = 354) CREATININE (BEAKER) 0.94 mg/dL 0.57-1.25 Specimen slightly (test code = 358) hemolyzed GLUCOSE RANDOM 116 mg/dL 70-105 H (BEAKER) (test code = 652) CALCIUM (BEAKER) 9.1 mg/dL 8.4-10.2 (test code = 697) EGFR (BEAKER) (test 78 mL/min/1.73 ESTIMA NINA GFR IS code = 1092) sq m NOT ACCURATE CREATININE CLEARANCE IN PREDICTING GLOMERULAR FILTRATION RATE . ESTIMATED GFR I S NOT APPLICABLE FOR DIALYSIS PATIEN TS. Choir Singer ID - ADAMARIS MCREATINE KINASE (CK)2020-01-25 06:09:00 Test Item Value Reference Range Interpretation Comments CREATINE KINASE TOTAL (BEAKER) (test 30 U/L 29-200 code = 380) Choir Singer ID - ADAMARIS MRAD, CHEST, 1 VIEW, NON [id number] 01:06:00Reason for exam:->r/o ptxShould this be performed [...] hemithorax. There is no pneumothorax. Signed: Nilton Butterfieldepspeedy Verified Date/Time: 01/25/2020 01:06:33 [id number] 00:53:00 Test Item Value Reference Range Interpretation Comments TROPONIN I (BEAKER) (test code = 0.06 ng/mL 0.00-0.03 H 397) Troponin I (TnI) levels must be interpreted [...] failure, acidosis, acute neurological disease, and persistent tachyarrhythmia.Choir Singer ID - [id number] 00:41:00 Test Item Value Reference Range Interpretation Comments GLUCOSE RANDOM (BEAKER) (test code 139 mg/dL 70-105 H = 652) Choir Singer ID - [id number], CHEST, 1 VIEW, NON [id number] 16:33:00Reason for exam:->r/o ptxShould this be performed [...] Gregory Verified Date/Time: 01/24/2020 16:33:08 Reading Location: [address] Radiology Reading Room POCT-GLUCOSE [id number] 15:59:00 Test Item Value Reference Range Interpretation Comments POC-GLUCOSE METER 130 mg/dL 70-110 H : TESTED A T [facility] 6720 ([employer]) (test code = [facility] Parature [facility], 1538) 72218: Choir Singer/Techni lars ID = [id number] for BA TTAD, TODD POCT-GLUCOSE [id number] 05:13:00 Test Item Value Reference Range Interpretation Comments POC-GLUCOSE METER 89 mg/dL 70-110 : TESTED A T [facility] 6720 ([employer]) (test code = [facility] Parature [facility], 1538) 91012: Choir Singer/Techni lars ID = [id number] for MSIB I, MNCEDISI [id number] 03:36:00 Test Item Value Reference Range Interpretation Comments MAGNESIUM (BEAKER) (test code = 2.3 mg/dL 1.6-2.6 627) Choir Singer ELLY BAILON MBASIC METABOLIC [id number] 03:36:00 Test Item Value Reference Range Interpretation Comments SODIUM (BEAKER) 149 meq/L 136-145 H (test code = 381) POTASSIUM (BEAKER) 3.8 meq/L 3.5-5.1 (test code = 379) CHLORIDE (BEAKER) 113 meq/L 98-107 H (test code = 382) CO2 (BEAKER) (test 31 meq/L 22-29 H code = 355) BLOOD UREA NITROGEN 38 mg/dL 7-21 H (BEAKER) (test code = 354) CREATININE (BEAKER) 0.79 mg/dL 0.57-1.25 (test code = 358) GLUCOSE RANDOM 114 mg/dL 70-105 H (BEAKER) (test code = 652) CALCIUM (BEAKER) 9.7 mg/dL 8.4-10.2 (test code = 697) EGFR (BEAKER) (test 95 mL/min/1.73 ESTIMA NINA GFR IS code = 1092) sq m NOT ACCURATE CREATININE CLEARANCE IN PREDICTING GLOMERULAR FILTRATION RATE . ESTIMATED GFR I S NOT APPLICABLE FOR DIALYSIS PATIEN TS. Choir Singer ELLY BAILON MCBC (HEMOGRAM ONLY)2020-01-24 03:08:00 Test Item Value Reference Range Interpretation Comments WHITE BLOOD CELL COUNT (BEAKER) 6.0 K/ L 3.5-10.5 (test code = 775) RED BLOOD CELL COUNT (BEAKER) 3.14 M/ L 4.63-6.08 L (test code = 761) HEMOGLOBIN (BEAKER) (test code = 8.9 GM/DL 13.7-17.5 L 410) HEMATOCRIT (BEAKER) (test code = 30.6 % 40.1-51.0 L 411) MEAN CORPUSCULAR VOLUME (BEAKER) 97.5 fL 79.0-92.2 H (test code = 753) MEAN CORPUSCULAR HEMOGLOBIN 28.3 pg 25.7-32.2 (BEAKER) (test code = 751) MEAN CORPUSCULAR HEMOGLOBIN CONC 29.1 GM/DL 32.3-36.5 L (BEAKER) (test code = 752) RED CELL DISTRIBUTION WIDTH 16.5 % 11.6-14.4 H (BEAKER) (test code = 412) PLATELET COUNT (BEAKER) (test 255 K/CU MM 150-450 code = 756) MEAN PLATELET VOLUME (BEAKER) 9.7 fL 9.4-12.4 (test code = 754) NUCLEATED RED BLOOD CELLS 0 /100 WBC 0-0 (BEAKER) (test code = 413) BLOOD [id number] 19:00:00 Test Item Value Reference Range Interpretation Comments CULTURE (BEAKER) (test No growth in 5 days code = 1095) CBC (HEMOGRAM ONLY)2020-01-23 03:58:00 Test Item Value Reference Range Interpretation Comments WHITE BLOOD CELL COUNT (BEAKER) 5.7 K/ L 3.5-10.5 (test code = 775) RED BLOOD CELL COUNT (BEAKER) 3.02 M/ L 4.63-6.08 L (test code = 761) HEMOGLOBIN (BEAKER) (test code = 8.5 GM/DL 13.7-17.5 L 410) HEMATOCRIT (BEAKER) (test code = 29.4 % 40.1-51.0 L 411) MEAN CORPUSCULAR VOLUME (BEAKER) 97.4 fL 79.0-92.2 H (test code = 753) MEAN CORPUSCULAR HEMOGLOBIN 28.1 pg 25.7-32.2 (BEAKER) (test code = 751) MEAN CORPUSCULAR HEMOGLOBIN CONC 28.9 GM/DL 32.3-36.5 L (BEAKER) (test code = 752) RED CELL DISTRIBUTION WIDTH 16.4 % 11.6-14.4 H (BEAKER) (test code = 412) PLATELET COUNT (BEAKER) (test 232 K/CU MM 150-450 code = 756) MEAN PLATELET VOLUME (BEAKER) 9.8 fL 9.4-12.4 (test code = 754) NUCLEATED RED BLOOD CELLS 0 /100 WBC 0-0 (BEAKER) (test code = 413) POCT-GLUCOSE [id number] 18:00:00 Test Item Value Reference Range Interpretation Comments POC-GLUCOSE METER 119 mg/dL 70-110 H : TESTED A T [facility] 6720 (BEAKER) (test code = [facility], 1538) 61327: Choir Singer/Techni lars ID = [id number] for NUNO LL, WILLIS POCT-GLUCOSE [id number] 12:30:00 Test Item Value Reference Range Interpretation Comments POC-GLUCOSE METER 119 mg/dL 70-110 H : TESTED A T [facility] 6720 (BEAKER) (test code = [facility], 1538) 54856: Choir Singer/Techni lars ID = [id number] for NUNO LL, WILLIS POCT-GLUCOSE [id number] 06:24:00 Test Item Value Reference Range Interpretation Comments POC-GLUCOSE METER 115 mg/dL 70-110 H : TESTED A T [facility] 6720 (BEAKER) (test code = [facility], 1538) 29891: Choir Singer/Techni lars ID = [id number] for PIERRE DEL ROSARIO CBC (HEMOGRAM ONLY)2020-01-22 04:19:00 Test Item Value Reference Range Interpretation Comments WHITE BLOOD CELL COUNT (BEAKER) 5.6 K/ L 3.5-10.5 (test code = 775) RED BLOOD CELL COUNT (BEAKER) 2.99 M/ L 4.63-6.08 L (test code = 761) HEMOGLOBIN (BEAKER) (test code = 8.4 GM/DL 13.7-17.5 L 410) HEMATOCRIT (BEAKER) (test code = 28.7 % 40.1-51.0 L 411) MEAN CORPUSCULAR VOLUME (BEAKER) 96.0 fL 79.0-92.2 H (test code = 753) MEAN CORPUSCULAR HEMOGLOBIN 28.1 pg 25.7-32.2 (BEAKER) (test code = 751) MEAN CORPUSCULAR HEMOGLOBIN CONC 29.3 GM/DL 32.3-36.5 L (BEAKER) (test code = 752) RED CELL DISTRIBUTION WIDTH 16.5 % 11.6-14.4 H (BEAKER) (test code = 412) PLATELET COUNT (BEAKER) (test 215 K/CU MM 150-450 code = 756) MEAN PLATELET VOLUME (BEAKER) 9.7 fL 9.4-12.4 (test code = 754) NUCLEATED RED BLOOD CELLS 0 /100 WBC 0-0 (BEAKER) (test code = 413) POCT-GLUCOSE [id number] 23:58:00 Test Item Value Reference Range Interpretation Comments POC-GLUCOSE METER 128 mg/dL 70-110 H : TESTED A T [facility] 6720 (BEAKER) (test code = [facility], 1538) 86281: Choir Singer/Techni lars ID = [id number] for PIERRE DEL ROSARIO POCT-GLUCOSE [id number] 18:10:00 Test Item Value Reference Range Interpretation Comments POC-GLUCOSE METER 100 mg/dL 70-110 : TESTED A T [facility] 6720 (BEAKER) (test code = [facility], 1538) 99160: Choir Singer/Techni lars ID = [id number] for SANDOVAL-JESSEE SEBLE, AG FUNGUS CULTURE + [id number] 16:25:00 Test Item Value Reference Range Interpretation Comments CULTURE (BEAKER) (test No fungus isolated in code = 1095) 28 days FUNGUS SMEAR ([facility]) No fungi seen (test code = 1406) POCT-GLUCOSE [id number] 12:09:00 Test Item Value Reference Range Interpretation Comments POC-GLUCOSE METER 119 mg/dL 70-110 H : TESTED A T [facility] 6720 (BEAKER) (test code = [facility], 153) 15914: Choir Singer/Techni lars ID = [id number] for SANDOVAL-JESSEE SKINNER, AG BODY FLUID CULTURE + GRAM [id number] 11:52:00 Test Item Value Reference Range Interpretation Comments CULTURE (BEAKER) (test code No growth = 1095) GRAM STAIN RESULT (BEAKER) <1+ WBCs (test code = 1123) GRAM STAIN RESULT (BEAKER) No organisms seen (test code = 79630) POCT-GLUCOSE [id number] 07:22:00 Test Item Value Reference Range Interpretation Comments POC-GLUCOSE METER 122 mg/dL 70-110 H : TESTED A T [facility] 6720 (BEAKER) (test code = [facility], 1538) 91704: Choir Singer/Techni lars ID = [id number] for YUSEF LOWE POCT-GLUCOSE [id number] 06:45:00 Test Item Value Reference Range Interpretation Comments POC-GLUCOSE METER 103 mg/dL 70-110 : TESTED A T [facility] 6720 (BEAKER) (test code = [place], 1538) 44632: Choir Singer/Techni lars ID = [id number] for JUSTINA CHAU BASIC METABOLIC [id number] 05:40:00 Test Item Value Reference Range Interpretation Comments SODIUM (BEAKER) 144 meq/L 136-145 (test code = 381) POTASSIUM (BEAKER) 3.9 meq/L 3.5-5.1 (test code = 379) CHLORIDE (BEAKER) 109 meq/L 98-107 H (test code = 382) CO2 (BEAKER) (test 30 meq/L 22-29 H code = 355) BLOOD UREA NITROGEN 36 mg/dL 7-21 H (BEAKER) (test code = 354) CREATININE (BEAKER) 0.78 mg/dL 0.57-1.25 (test code = 358) GLUCOSE RANDOM 130 mg/dL 70-105 H (BEAKER) (test code = 652) CALCIUM (BEAKER) 9.4 mg/dL 8.4-10.2 (test code = 697) EGFR (BEAKER) (test 97 mL/min/1.73 ESTIMA NINA GFR IS code = 1092) sq m NOT ACCURATE CREATININE CLEARANCE IN PREDICTING GLOMERULAR FILTRATION RATE . ESTIMATED GFR I S NOT APPLICABLE FOR DIALYSIS PATIEN TS. Choir Singer ID - [id number] (HEMOGRAM ONLY)2020-01-21 05:14:00 Test Item Value Reference Range Interpretation Comments WHITE BLOOD CELL COUNT (BEAKER) 5.6 K/ L 3.5-10.5 (test code = 775) RED BLOOD CELL COUNT (BEAKER) 2.88 M/ L 4.63-6.08 L (test code = 761) HEMOGLOBIN (BEAKER) (test code = 8.0 GM/DL 13.7-17.5 L 410) HEMATOCRIT (BEAKER) (test code = 27.1 % 40.1-51.0 L 411) MEAN CORPUSCULAR VOLUME (BEAKER) 94.1 fL 79.0-92.2 H (test code = 753) MEAN CORPUSCULAR HEMOGLOBIN 27.8 pg 25.7-32.2 (BEAKER) (test code = 751) MEAN CORPUSCULAR HEMOGLOBIN CONC 29.5 GM/DL 32.3-36.5 L (BEAKER) (test code = 752) RED CELL DISTRIBUTION WIDTH 16.4 % 11.6-14.4 H (BEAKER) (test code = 412) PLATELET COUNT (BEAKER) (test 209 K/CU MM 150-450 code = 756) MEAN PLATELET VOLUME (BEAKER) 10.1 fL 9.4-12.4 (test code = 754) NUCLEATED RED BLOOD CELLS 0 /100 WBC 0-0 (BEAKER) (test code = 413) RAD, CHEST, 1 VIEW, NON [id number] 04:32:00Reason for exam:->chfShould this be performed at [...] Nilton Butterfield Verified Date/Time: 01/21/2020 04:32:05 POCT-GLUCOSE [id number] 23:29:00 Test Item Value Reference Range Interpretation Comments POC-GLUCOSE METER 125 mg/dL 70-110 H : TESTED A T [facility] ([employer]) (test [facility] = [facility], 1538) [id number]: Choir Singer/Techni lars ID = [id number] for MS IBI, MNCEDISI POCT-GLUCOSE [id number] 13:27:00 Test Item Value Reference Range Interpretation Comments POC-GLUCOSE METER 122 mg/dL 70-110 H : TESTED A T [facility] 67[facility] ([employer]) (test code = [facility], 1538) [id number]: Choir Singer/Techni lars ID = [id number] for DE YUSEF JUAREZ POCT-GLUCOSE [id number] 09:59:00 Test Item Value Reference Range Interpretation Comments POC-GLUCOSE METER 141 mg/dL 70-110 H : TESTED A T [facility] (BEAKER) (test code = [place], 1538) [id number]: Choir Singer/Techni lars ID = [id number] for PIERRE DEL ROSARIO [id number] 06:01:00 Test Item Value Reference Range Interpretation Comments PROTIME (BEAKER) (test code = 15.9 seconds 11.9-14.2 H 759) INR (BEAKER) (test code = 370) 1.3 <=5.9 PARTIAL THROMBOPLASTIN TIME 33.6 seconds 22.5-36.0 (BEAKER) (test code = 760) Effective 03/24/2019: PT Reference Range ChangeNew: 11.9-14.2 Previous: 11.7- 14.7RECOMMENDED COUMADIN/WARFARIN INR THERAPY RANGESSTANDARD DOSE: 2.0-3.0 Includes: PROPHYLAXIS for venous thrombosis, systemic embolization; TREATMENT for venous thrombosis and/or pulmonary embolus.HIGH RISK: Target INR is2.5-3.5 for patients wiht mechanical heart valves.HEPATIC FUNCTION [id number] 05:38:00 Test Item Value Reference Range Interpretation Comments TOTAL PROTEIN (BEAKER) (test code = 6.1 gm/dL 6.0-8.3 770) ALBUMIN (BEAKER) (test code = 1145) 2.3 g/dL 3.5-5.0 L BILIRUBIN TOTAL (BEAKER) (test code 0.4 mg/dL 0.2-1.2 = 377) BILIRUBIN DIRECT (BEAKER) (test 0.3 mg/dL 0.1-0.5 code = 706) ALKALINE PHOSPHATASE (BEAKER) (test 93 U/L 40-150 code = 346) AST (SGOT) (BEAKER) (test code = 21 U/L 5-34 353) ALT (SGPT) (BEAKER) (test code = 23 U/L 6-55 347) Choir Singer ID - ADAMARIS MBASIC METABOLIC [id number] 05:38:00 Test Item Value Reference Range Interpretation Comments SODIUM (BEAKER) 140 meq/L 136-145 (test code = 381) POTASSIUM (BEAKER) 3.6 meq/L 3.5-5.1 (test code = 379) CHLORIDE (BEAKER) 106 meq/L 98-107 (test code = 382) CO2 (BEAKER) (test 28 meq/L 22-29 code = 355) BLOOD UREA NITROGEN 36 mg/dL 7-21 H (BEAKER) (test code = 354) CREATININE (BEAKER) 0.82 mg/dL 0.57-1.25 (test code = 358) GLUCOSE RANDOM 141 mg/dL 70-105 H (BEAKER) (test code = 652) CALCIUM (BEAKER) 9.2 mg/dL 8.4-10.2 (test code = 697) EGFR (BEAKER) (test 91 mL/min/1.73 ESTIMA NINA GFR IS code = 1092) sq m NOT ACCURATE CREATININE CLEARANCE IN PREDICTING GLOMERULAR FILTRATION RATE . ESTIMATED GFR I S NOT APPLICABLE FOR DIALYSIS PATIEN TS. Choir Singer ID - ADAMARIS MC (HEMOGRAM ONLY)2020-01-20 05:20:00 Test Item Value Reference Range Interpretation Comments WHITE BLOOD CELL COUNT (BEAKER) 5.4 K/ L 3.5-10.5 (test code = 775) RED BLOOD CELL COUNT (BEAKER) 2.89 M/ L 4.63-6.08 L (test code = 761) HEMOGLOBIN (BEAKER) (test code = 8.2 GM/DL 13.7-17.5 L 410) HEMATOCRIT (BEAKER) (test code = 26.8 % 40.1-51.0 L 411) MEAN CORPUSCULAR VOLUME (BEAKER) 92.7 fL 79.0-92.2 H (test code = 753) MEAN CORPUSCULAR HEMOGLOBIN 28.4 pg 25.7-32.2 (BEAKER) (test code = 751) MEAN CORPUSCULAR HEMOGLOBIN CONC 30.6 GM/DL 32.3-36.5 L (BEAKER) (test code = 752) RED CELL DISTRIBUTION WIDTH 16.5 % 11.6-14.4 H (BEAKER) (test code = 412) PLATELET COUNT (BEAKER) (test 185 K/CU MM 150-450 code = 756) MEAN PLATELET VOLUME (BEAKER) 10.3 fL 9.4-12.4 (test code = 754) NUCLEATED RED BLOOD CELLS 0 /100 WBC 0-0 (BEAKER) (test code = 413) POCT-GLUCOSE [id number] 00:05:00 Test Item Value Reference Range Interpretation Comments POC-GLUCOSE METER 130 mg/dL 70-110 H : TESTED A T [facility] [address] ([place]) (test code = [place] [facility], 1538) [address]: Choir Singer/Techni lars ID = [id number] for PIERRE DEL ROSARIO [id number] 16:41:00Medical Cytology Report Case: [id number] Authorizing Provider: Sara Manjarrez MD Collected: 01/18/2020 04:20 PM Ordering Location: [address] Received: 01/19/2020 09:12 AM Pathologist: Samra Coley MD Specimen: Pleural, Left PLEURAL, LEFT,FLUID (CYTOSPINS): - NEGATIVE FOR MALIGNANCY - INCREASED NEUTROPHILS PRESENT Signing Pathol ogist Direct Phone Line: [phone] signed by Samra Coley MD on 01/19/2020 at 4:41 [id number] pleural effusion; admitted on 01/17/2020 w/ history of HTN, HLD, CAD, obesity, SSS (pacemaker dependent), chronic HFrEF s/p Bi-V ICD (upgrade 2014) who presents from [facility] after aspiration event and for replacement of his pacemakerLEFT PLEURAL FLUIDReceived 800 ml brown fluidPrepared 4 cytospinsCollected: [id number]: [id number] [facility], Department of Pathology, [address] [place] [address], TcqvieUniversity of California, [facility], [facility] of [facility], [address] [place] [address], XcuphmUniversity of California, [facility], Department of Pathology, [address] [place] [address], G/S, [id number] 12:40:00CELL COUNTLaterality?->LeftReason for exam:->PLEURAL EFFUSIONShould this be performed at the bedside?->YesLabs to be Ordered:- >Body Fluid Culture (w/Gram Stain, C\T\S)Labs to be Ordered:->CytologyLabs to be Ordered:->Fungal CultureLabs to be Ordered:->Glucose+LDH+ProteinLabs to beOrdered:->Other (please add comment)FINAL REPORT Exam: Ultrasound guided thoracentesis Clinical History: Left-sided Pleural Effusion Long Term Care Phlebotomist: Cassidy Parra PA-C Supervising Physician: Marvin Thompson [...] Thompson MDReportVerified Date/Time: 01/19/2020 12:40:39 Reading Location: [address] Ultrasound Reading Room E lectronically signed by: MARVIN THOMPSON on 01/19/2020 12:40 PMAPTT 2020-01-19 12:39:00 Test Item Value Reference Range Interpretation Comments PARTIAL THROMBOPLASTIN TIME 53.1 seconds 22.5-36.0 H (BEAKER) (test code = 760) CT, CHEST, WITHOUT [id number] 12:17:00FINAL REPORT CT Chest without contrast History: [...] George MDReport Verified Date/Time: 01/19/202012:17:48 Reading Location: [facility] Reading Room POCT-GLUCOSE [id number] 06:13:00 Test Item Value Reference Range Interpretation Comments POC-GLUCOSE METER 128 mg/dL 70-110 H : TESTED A T [facility] 67[address] (BEAKER) (test code = [facility], 1538) [address]: Choir Singer/Techni lars ID = [id number] for RONY MTZ [id number] 05:43:00 Test Item Value Reference Range Interpretation Comments MAGNESIUM (BEAKER) (test code = 1.9 mg/dL 1.6-2.6 627) Choir Singer ID - ADAMARIS MBASIC METABOLIC [id number] 05:43:00 Test Item Value Reference Range Interpretation Comments SODIUM (BEAKER) 140 meq/L 136-145 (test code = 381) POTASSIUM (BEAKER) 3.7 meq/L 3.5-5.1 (test code = 379) CHLORIDE (BEAKER) 106 meq/L 98-107 (test code = 382) CO2 (BEAKER) (test 27 meq/L 22-29 code = 355) BLOOD UREA NITROGEN 25 mg/dL 7-21 H (BEAKER) (test code = 354) CREATININE (BEAKER) 0.81 mg/dL 0.57-1.25 (test code = 358) GLUCOSE RANDOM 128 mg/dL 70-105 H (BEAKER) (test code = 652) CALCIUM (BEAKER) 9.3 mg/dL 8.4-10.2 (test code = 697) EGFR (BEAKER) (test 93 mL/min/1.73 ESTIMA NINA GFR IS code = 1092) sq m NOT ACCURATE CREATININE CLEARANCE IN PREDICTING GLOMERULAR FILTRATION RATE . ESTIMATED GFR I S NOT APPLICABLE FOR DIALYSIS PATIEN TS. Choir Singer ID - ADAMARIS EPATIC FUNCTION [id number] 05:43:00 Test Item Value Reference Range Interpretation Comments TOTAL PROTEIN (BEAKER) (test code = 5.7 gm/dL 6.0-8.3 L 770) ALBUMIN (BEAKER) (test code = 1145) 2.2 g/dL 3.5-5.0 L BILIRUBIN TOTAL (BEAKER) (test code 0.4 mg/dL 0.2-1.2 = 377) BILIRUBIN DIRECT (BEAKER) (test 0.2 mg/dL 0.1-0.5 code = 706) ALKALINE PHOSPHATASE (BEAKER) (test 83 U/L 40-150 code = 346) AST (SGOT) (BEAKER) (test code = 23 U/L 5-34 353) ALT (SGPT) (BEAKER) (test code = 23 U/L 6-55 347) Choir Singer ID - ADAMARIS MCREATINE KINASE (CK)2020-01-19 05:43:00 Test Item Value Reference Range Interpretation Comments CREATINE KINASE TOTAL (BEAKER) (test 22 U/L 29-200 L code = 380) Choir Singer ID - ADAMARIS MC-REACTIVE [id number] 05:43:00 Test Item Value Reference Range Interpretation Comments C-REACTIVE PROTEIN (BEAKER) (test 9.08 mg/dL 0.00-0.50 H code = 676) Choir Singer ID - ADAMARIS MCBC (HEMOGRAM ONLY)2020-01-19 05:24:00 Test Item Value Reference Range Interpretation Comments WHITE BLOOD CELL COUNT (BEAKER) 5.3 K/ L 3.5-10.5 (test code = 775) RED BLOOD CELL COUNT (BEAKER) 2.74 M/ L 4.63-6.08 L (test code = 761) HEMOGLOBIN (BEAKER) (test code = 7.8 GM/DL 13.7-17.5 L 410) HEMATOCRIT (BEAKER) (test code = 25.5 % 40.1-51.0 L 411) MEAN CORPUSCULAR VOLUME (BEAKER) 93.1 fL 79.0-92.2 H (test code = 753) MEAN CORPUSCULAR HEMOGLOBIN 28.5 pg 25.7-32.2 (BEAKER) (test code = 751) MEAN CORPUSCULAR HEMOGLOBIN CONC 30.6 GM/DL 32.3-36.5 L (BEAKER) (test code = 752) RED CELL DISTRIBUTION WIDTH 16.4 % 11.6-14.4 H (BEAKER) (test code = 412) PLATELET COUNT (BEAKER) (test 164 K/CU MM 150-450 code = 756) MEAN PLATELET VOLUME (BEAKER) 10.3 fL 9.4-12.4 (test code = 754) NUCLEATED RED BLOOD CELLS 0 /100 WBC 0-0 (BEAKER) (test code = 413) [id number] 05:21:00 Test Item Value Reference Range Interpretation Comments PROTIME (BEAKER) (test code = 15.9 seconds 11.9-14.2 H 759) INR (BEAKER) (test code = 370) 1.3 <=5.9 PARTIAL THROMBOPLASTIN TIME 58.2 seconds 22.5-36.0 H (BEAKER) (test code = 760) Effective 03/24/2019: PT Reference Range ChangeNew: 11.9-14.2 Previous: 11.7- 14.7RECOMMENDED COUMADIN/WARFARIN INR THERAPY RANGESSTANDARD DOSE: 2.0-3.0 Includes: PROPHYLAXIS for venous thrombosis, systemic embolization; TREATMENT for venous thrombosis and/or pulmonary embolus.HIGH RISK: Target INR is2.5-3.5 for patients wiht mechanical heart valves.[id number] 23:47:00 Test Item Value Reference Range Interpretation Comments PARTIAL THROMBOPLASTIN TIME 59.5 seconds 22.5-36.0 H (BEAKER) (test code = 760) POCT-GLUCOSE [id number] 23:37:00 Test Item Value Reference Range Interpretation Comments POC-GLUCOSE METER 128 mg/dL 70-110 H : [facility] ([facility]AKER[facility] (test code = [place], 1538) [address]: Choir Singer/Techni lars ID = [id number] for UE MARTI, RONY BODY FLUID CELL COUNT WITH [id number] 18:12:00 Test Item Value Reference Range Interpretation Comments APPEARANCE FLUID (BEAKER) Slightly Cloudy Clear A (test code = 510) COLOR FLUID (BEAKER) (test Juliette Colorless, Straw A code = 511) RBC FLUID (BEAKER) (test 12276 /cu mm <=1 H code = 513) ADJUSTED WBC FLUID (BEAKER) 901 /cu mm <=5 H (test code = 1691) LINING CELLS (BEAKER) (test 9 /cu mm <=1 H code = 1590) NEUTROPHILS FLUID (BEAKER) 55 % (test code = 1656) LYMPHS FLUID (BEAKER) (test 27 % code = 488) MONO/MACROPHAGE FLUID 18 % (BEAKER) (test code = 489) EOSINOPHILS FLUID (BEAKER) 0 % (test code = 491) BASO FLUID (BEAKER) (test 0 % code = 492) CONTAINER BODY FLUID EDTA Tube (BEAKER) (test code = 2873) POCT-GLUCOSE [id number] 17:51:00 Test Item Value Reference Range Interpretation Comments POC-GLUCOSE METER 125 mg/dL 70-110 H : [facility] ([place]AKER) (test code = [facility], 1538) [address]: Choir Singer/Techni lars ID = [id number] for AG ROBINS [id number] 17:20:00 Test Item Value Reference Range Interpretation Comments PARTIAL THROMBOPLASTIN TIME 35.5 seconds 22.5-36.0 (BEAKER) (test code = 760) RAD, CHEST, 1 VIEW, NON [id number] 16:12:00Reason for exam:->post left sided thoracentesisShould this [...] Huerta MDReport Verified Date/Time: 01/18/2020 16:12:43 POCT-GLUCOSE [id number] 12:20:00 Test Item Value Reference Range Interpretation Comments POC-GLUCOSE METER 107 mg/dL 70-110 : TESTED A T [facility] 67[address] (BEAKER) (test code = [place], 1538) [address]: Choir Singer/Techni lars ID = [id number] for AG ROBINS, CHEST, 1 VIEW, NON [id number] 05:28:00Reason for exam:->PLEURAL EFFUSIONShould this be performed [...] (CK)2020-01-18 04:58:00 Test Item Value Reference Range Interpretation Comments CREATINE KINASE TOTAL (BEAKER) (test 35 U/L 29-200 code = 380) Choir Singer ID - ADAMARIS MLACTATE DEHYDROGENASE (LDH)2020-01-18 04:58:00 Test Item Value Reference Range Interpretation Comments LACTATE DEHYDROGENASE (BEAKER) (test 145 U/L 125-220 code = 635) Choir Singer ID - ADAMARIS MBASIC METABOLIC [id number] 04:58:00 Test Item Value Reference Range Interpretation Comments SODIUM (BEAKER) 137 meq/L 136-145 (test code = 381) POTASSIUM (BEAKER) 3.6 meq/L 3.5-5.1 (test code = 379) CHLORIDE (BEAKER) 105 meq/L 98-107 (test code = 382) CO2 (BEAKER) (test 26 meq/L 22-29 code = 355) BLOOD UREA NITROGEN 20 mg/dL 7-21 (BEAKER) (test code = 354) CREATININE (BEAKER) 0.77 mg/dL 0.57-1.25 (test code = 358) GLUCOSE RANDOM 108 mg/dL 70-105 H (BEAKER) (test code = 652) CALCIUM (BEAKER) 9.0 mg/dL 8.4-10.2 (test code = 697) EGFR (BEAKER) (test 98 mL/min/1.73 ESTIMA NINA GFR IS code = 1092) sq m NOT ACCURATE CREATININE CLEARANCE IN PREDICTING GLOMERULAR FILTRATION RATE . ESTIMATED GFR I S NOT APPLICABLE FOR DIALYSIS PATIEN TS. Choir Singer ID - ADAMARIS MHEPATIC FUNCTION [id number] 04:58:00 Test Item Value Reference Range Interpretation Comments TOTAL PROTEIN (BEAKER) (test code = 5.7 gm/dL 6.0-8.3 L 770) ALBUMIN (BEAKER) (test code = 1145) 2.2 g/dL 3.5-5.0 L BILIRUBIN TOTAL (BEAKER) (test code 0.6 mg/dL 0.2-1.2 = 377) BILIRUBIN DIRECT (BEAKER) (test 0.3 mg/dL 0.1-0.5 code = 706) ALKALINE PHOSPHATASE (BEAKER) (test 65 U/L 40-150 code = 346) AST (SGOT) (BEAKER) (test code = 23 U/L 5-34 353) ALT (SGPT) (BEAKER) (test code = 24 U/L 6-55 347) Choir Singer ID - ADAMARIS MPT/[id number] 04:53:00 Test Item Value Reference Range Interpretation Comments PROTIME (BEAKER) (test code = 16.8 seconds 11.9-14.2 H 759) INR (BEAKER) (test code = 370) 1.4 <=5.9 PARTIAL THROMBOPLASTIN TIME 102.5 seconds 22.5-36.0 H (BEAKER) (test code = 760) Effective 03/24/2019: PT Reference Range ChangeNew: 11.9-14.2 Previous: 11.7- 14.7RECOMMENDED COUMADIN/WARFARIN INR THERAPY RANGESSTANDARD DOSE: 2.0-3.0 Includes: PROPHYLAXIS for venous thrombosis, systemic embolization; TREATMENT for venous thrombosis and/or pulmonary embolus.HIGH RISK: Target INR is2.5-3.5 for patients wiht mechanical heart valves.CBC (HEMOGRAM ONLY)2020-01-18 04:31:00 Test Item Value Reference Range Interpretation Comments WHITE BLOOD CELL COUNT (BEAKER) 5.0 K/ L 3.5-10.5 (test code = 775) RED BLOOD CELL COUNT (BEAKER) 2.76 M/ L 4.63-6.08 L (test code = 761) HEMOGLOBIN (BEAKER) (test code = 7.7 GM/DL 13.7-17.5 L 410) HEMATOCRIT (BEAKER) (test code = 25.3 % 40.1-51.0 L 411) MEAN CORPUSCULAR VOLUME (BEAKER) 91.7 fL 79.0-92.2 (test code = 753) MEAN CORPUSCULAR HEMOGLOBIN 27.9 pg 25.7-32.2 (BEAKER) (test code = 751) MEAN CORPUSCULAR HEMOGLOBIN CONC 30.4 GM/DL 32.3-36.5 L (BEAKER) (test code = 752) RED CELL DISTRIBUTION WIDTH 16.4 % 11.6-14.4 H (BEAKER) (test code = 412) PLATELET COUNT (BEAKER) (test 170 K/CU MM 150-450 code = 756) MEAN PLATELET VOLUME (BEAKER) 9.8 fL 9.4-12.4 (test code = 754) NUCLEATED RED BLOOD CELLS 0 /100 WBC 0-0 (BEAKER) (test code = 413) POCT-GLUCOSE [id number] 00:46:00 Test Item Value Reference Range Interpretation Comments POC-GLUCOSE METER 107 mg/dL 70-110 : TESTED A T [facility] 6720 (BEAKER) (test code [facility], = 1538) [address]: Choir Singer/Techni lars ID = [id number] for ISI IBARRA SAQIB [id number] 21:46:00 Test Item Value Reference Range Interpretation Comments PARTIAL THROMBOPLASTIN TIME 44.2 seconds 22.5-36.0 H (BEAKER) (test code = 760) Prior to initiating heparinPLATELET [id number] 21:38:00 Test Item Value Reference Range Interpretation Comments PLATELET COUNT (BEAKER) (test 168 K/CU MM 150-450 code = 756) Choir Singer ID - [id number]-GLUCOSE [id number] 18:53:00 Test Item Value Reference Range Interpretation Comments POC-GLUCOSE METER 119 mg/dL 70-110 H : TESTED A T [facility] 6720 (BEAKER) (test code = [facility], 153) [address]: Choir Singer/Techni lars ID = [id number] for NUNO LL, WILLIS FUNGUS CULTURE + [id number] 17:59:00 Test Item Value Reference Range Interpretation Comments CULTURE (BEAKER) (test No fungus isolated in code = 1095) 28 days FUNGUS SMEAR (BEAKER) No fungi seen (test code = 1406) BLOOD [id number] 15:00:00 Test Item Value Reference Range Interpretation Comments CULTURE (BEAKER) (test No growth in 5 days code = 1095) BLOOD [id number] 15:00:00 Test Item Value Reference Range Interpretation Comments CULTURE (BEAKER) (test No growth in 5 days code = 1095) POCT-GLUCOSE [id number] 12:40:00 Test Item Value Reference Range Interpretation Comments POC-GLUCOSE METER 162 mg/dL 70-110 H : TESTED A T [facility] 6720 (BEAKER) (test code = [facility], 153) [address]: Choir Singer/Techni lars ID = [id number] for HE OSEASNDEZ, LISBET POCT-GLUCOSE [id number] 06:25:00 Test Item Value Reference Range Interpretation Comments POC-GLUCOSE METER 152 mg/dL 70-110 H : TESTED A T [facility] 6720 (BEAKER) (test code = [facility], 153) [address]: Choir Singer/Techni lars ID = [id number] for JAMAL RAINALISBET CALCIUM, [id number] 05:12:00 Test Item Value Reference Range Interpretation Comments CALCIUM IONIZED (BEAKER) (test 1.24 mmol/L 1.12-1.27 code = 698) PH, BLOOD (BEAKER) (test code = 7.53 1810) [id number] 04:42:00 Test Item Value Reference Range Interpretation Comments PHOSPHORUS (BEAKER) (test code = 2.9 mg/dL 2.3-4.7 604) Choir Singer ELLY [place] [id number] 04:42:00 Test Item Value Reference Range Interpretation Comments MAGNESIUM (BEAKER) (test code = 2.2 mg/dL 1.6-2.6 627) Choir Singer ID Jorge [place] WCOMPREHENSIVE METABOLIC [id number] 04:42:00 Test Item Value Reference Range Interpretation Comments TOTAL PROTEIN 6.1 gm/dL 6.0-8.3 (BEAKER) (test code = 770) ALBUMIN (BEAKER) 2.0 g/dL 3.5-5.0 L (test code = 1145) ALKALINE PHOSPHATASE 95 U/L 40-150 (BEAKER) (test code = 346) BILIRUBIN TOTAL 0.5 mg/dL 0.2-1.2 (BEAKER) (test code = 377) SODIUM (BEAKER) (test 151 meq/L 136-145 H code = 381) POTASSIUM (BEAKER) 3.6 meq/L 3.5-5.1 (test code = 379) CHLORIDE (BEAKER) 113 meq/L 98-107 H (test code = 382) CO2 (BEAKER) (test 30 meq/L 22-29 H code = 355) BLOOD UREA NITROGEN 55 mg/dL 7-21 H (BEAKER) (test code = 354) CREATININE (BEAKER) 1.40 mg/dL 0.57-1.25 H (test code = 358) GLUCOSE RANDOM 151 mg/dL 70-105 H (BEAKER) (test code = 652) CALCIUM (BEAKER) 9.4 mg/dL 8.4-10.2 (test code = 697) AST (SGOT) (BEAKER) 38 U/L 5-34 H (test code = 353) ALT (SGPT) (BEAKER) 30 U/L 6-55 (test code = 347) EGFR (BEAKER) (test 49 mL/min/1.73 ESTIMA NINA GFR IS code = 1092) sq m NOT ACCURATE CREATININE CLEARANCE IN PREDICTING GLOMERULAR FILTRATION RATE . ESTIMATED GFR I S NOT APPLICABLE FOR DIALYSIS PATIEN TS. Choir Singer ID - TRAN [id number] 04:41:00 Test Item Value Reference Range Interpretation Comments PARTIAL THROMBOPLASTIN TIME 72.3 seconds 22.5-36.0 H (BEAKER) (test code = 760) CBC W/PLT COUNT & AUTO [id number] 04:27:00 Test Item Value Reference Range Interpretation Comments WHITE BLOOD CELL COUNT (BEAKER) 6.9 K/ L 3.5-10.5 (test code = 775) RED BLOOD CELL COUNT (BEAKER) 2.81 M/ L 4.63-6.08 L (test code = 761) HEMOGLOBIN (BEAKER) (test code = 8.3 GM/DL 13.7-17.5 L 410) HEMATOCRIT (BEAKER) (test code = 26.9 % 40.1-51.0 L 411) MEAN CORPUSCULAR VOLUME (BEAKER) 95.7 fL 79.0-92.2 H (test code = 753) MEAN CORPUSCULAR HEMOGLOBIN 29.5 pg 25.7-32.2 (BEAKER) (test code = 751) MEAN CORPUSCULAR HEMOGLOBIN CONC 30.9 GM/DL 32.3-36.5 L (BEAKER) (test code = 752) RED CELL DISTRIBUTION WIDTH 15.9 % 11.6-14.4 H (BEAKER) (test code = 412) PLATELET COUNT (BEAKER) (test 252 K/CU MM 150-450 code = 756) MEAN PLATELET VOLUME (BEAKER) 11.0 fL 9.4-12.4 (test code = 754) NUCLEATED RED BLOOD CELLS 0 /100 WBC 0-0 (BEAKER) (test code = 413) NEUTROPHILS RELATIVE PERCENT 78 % (BEAKER) (test code = 429) LYMPHOCYTES RELATIVE PERCENT 14 % (BEAKER) (test code = 430) MONOCYTES RELATIVE PERCENT 5 % (BEAKER) (test code = 431) EOSINOPHILS RELATIVE PERCENT 3 % (BEAKER) (test code = 432) BASOPHILS RELATIVE PERCENT 0 % (BEAKER) (test code = 437) NEUTROPHILS ABSOLUTE COUNT 5.35 K/ L 1.78-5.38 (BEAKER) (test code = 670) LYMPHOCYTES ABSOLUTE COUNT 0.94 K/ L 1.32-3.57 L (BEAKER) (test code = 414) MONOCYTES ABSOLUTE COUNT (BEAKER) 0.32 K/ L 0.30-0.82 (test code = 415) EOSINOPHILS ABSOLUTE COUNT 0.20 K/ L 0.04-0.54 (BEAKER) (test code = 416) BASOPHILS ABSOLUTE COUNT (BEAKER) 0.02 K/ L 0.01-0.08 (test code = 417) IMMATURE GRANULOCYTES-RELATIVE 1 % 0-1 PERCENT (BEAKER) (test code = 2801) [id number] 23:27:00 Test Item Value Reference Range Interpretation Comments MAGNESIUM (BEAKER) 2.3 mg/dL 1.6-2.6 Specimen slightly (test code = 627) hemolyzed Choir Singer ID - PIAYA [id number] 23:27:00 Test Item Value Reference Range Interpretation Comments POTASSIUM (BEAKER) 3.5 meq/L 3.5-5.1 Specimen slightly (test code = 379) hemolyzed Choir Singer ID - LV LPOCT-GLUCOSE [id number] 22:08:00 Test Item Value Reference Range Interpretation Comments POC-GLUCOSE METER 137 mg/dL 70-110 H : TESTED A T [facility] 6720 (BEAKER) (test code = [facility], 1538) [address]: Choir Singer/Techni lars ID = [id number] for MACIEJ BERRY POCT-GLUCOSE [id number] 18:25:00 Test Item Value Reference Range Interpretation Comments POC-GLUCOSE METER 138 mg/dL 70-110 H : TESTED A T [facility] 6720 (BEAKER) (test code = [facility], 1538) [address]: Choir Singer/Techni lars ID = [id number] for LISBET KRAMER BLOOD [id number] 18:00:00 Test Item Value Reference Range Interpretation Comments CULTURE (BEAKER) (test No growth in 5 days code = 1095) BLOOD [id number] 18:00:00 Test Item Value Reference Range Interpretation Comments CULTURE (BEAKER) (test No growth in 5 days code = 1095) POCT-GLUCOSE [id number] 12:30:00 Test Item Value Reference Range Interpretation Comments POC-GLUCOSE METER 165 mg/dL 70-110 H : TESTED A T [facility] 6720 (BEAKER) (test code = [facility], 1538) [id number]: Choir Singer/Techni lars ID = [id number] for LISBET KRAMER CBC W/PLT COUNT & AUTO [id number] 05:53:00 Test Item Value Reference Range Interpretation Comments WHITE BLOOD CELL COUNT (BEAKER) 6.9 K/ L 3.5-10.5 (test code = 775) RED BLOOD CELL COUNT (BEAKER) 2.72 M/ L 4.63-6.08 L (test code = 761) HEMOGLOBIN (BEAKER) (test code = 8.0 GM/DL 13.7-17.5 L 410) HEMATOCRIT (BEAKER) (test code = 25.8 % 40.1-51.0 L 411) MEAN CORPUSCULAR VOLUME (BEAKER) 94.9 fL 79.0-92.2 H (test code = 753) MEAN CORPUSCULAR HEMOGLOBIN 29.4 pg 25.7-32.2 (BEAKER) (test code = 751) MEAN CORPUSCULAR HEMOGLOBIN CONC 31.0 GM/DL 32.3-36.5 L (BEAKER) (test code = 752) RED CELL DISTRIBUTION WIDTH 15.9 % 11.6-14.4 H (BEAKER) (test code = 412) PLATELET COUNT (BEAKER) (test 251 K/CU MM 150-450 code = 756) MEAN PLATELET VOLUME (BEAKER) 11.3 fL 9.4-12.4 (test code = 754) NUCLEATED RED BLOOD CELLS 0 /100 WBC 0-0 (BEAKER) (test code = 413) NEUTROPHILS RELATIVE PERCENT 81 % (BEAKER) (test code = 429) LYMPHOCYTES RELATIVE PERCENT 13 % (BEAKER) (test code = 430) MONOCYTES RELATIVE PERCENT 4 % (BEAKER) (test code = 431) EOSINOPHILS RELATIVE PERCENT 1 % (BEAKER) (test code = 432) BASOPHILS RELATIVE PERCENT 0 % (BEAKER) (test code = 437) NEUTROPHILS ABSOLUTE COUNT 5.52 K/ L 1.78-5.38 H (BEAKER) (test code = 670) LYMPHOCYTES ABSOLUTE COUNT 0.91 K/ L 1.32-3.57 L (BEAKER) (test code = 414) MONOCYTES ABSOLUTE COUNT (BEAKER) 0.29 K/ L 0.30-0.82 L (test code = 415) EOSINOPHILS ABSOLUTE COUNT 0.09 K/ L 0.04-0.54 (BEAKER) (test code = 416) BASOPHILS ABSOLUTE COUNT (BEAKER) 0.01 K/ L 0.01-0.08 (test code = 417) IMMATURE GRANULOCYTES-RELATIVE 1 % 0-1 PERCENT (BEAKER) (test code = 2801) COMPREHENSIVE METABOLIC [id number] 05:32:00 Test Item Value Reference Range Interpretation Comments TOTAL PROTEIN 6.2 gm/dL 6.0-8.3 (BEAKER) (test code = 770) ALBUMIN (BEAKER) 1.9 g/dL 3.5-5.0 L (test code = 1145) ALKALINE PHOSPHATASE 97 U/L 40-150 (BEAKER) (test code = 346) BILIRUBIN TOTAL 0.7 mg/dL 0.2-1.2 (BEAKER) (test code = 377) SODIUM (BEAKER) (test 149 meq/L 136-145 H code = 381) POTASSIUM (BEAKER) 3.6 meq/L 3.5-5.1 (test code = 379) CHLORIDE (BEAKER) 112 meq/L 98-107 H (test code = 382) CO2 (BEAKER) (test 28 meq/L 22-29 code = 355) BLOOD UREA NITROGEN 69 mg/dL 7-21 H (BEAKER) (test code = 354) CREATININE (BEAKER) 1.78 mg/dL 0.57-1.25 H (test code = 358) GLUCOSE RANDOM 186 mg/dL 70-105 H (BEAKER) (test code = 652) CALCIUM (BEAKER) 9.0 mg/dL 8.4-10.2 (test code = 697) AST (SGOT) (BEAKER) 39 U/L 5-34 H (test code = 353) ALT (SGPT) (BEAKER) 26 U/L 6-55 (test code = 347) EGFR (BEAKER) (test 37 mL/min/1.73 ESTIMA NINA GFR IS code = 1092) sq m NOT ACCURATE CREATININE CLEARANCE IN PREDICTING GLOMERULAR FILTRATION RATE . ESTIMATED GFR I S NOT APPLICABLE FOR DIALYSIS PATIEN TS. Choir Singer ID - TRAN [id number] 05:25:00 Test Item Value Reference Range Interpretation Comments PHOSPHORUS (BEAKER) (test code = 3.7 mg/dL 2.3-4.7 604) Choir Singer ID - TRAN [id number] 05:25:00 Test Item Value Reference Range Interpretation Comments MAGNESIUM (BEAKER) (test code = 2.2 mg/dL 1.6-2.6 627) Choir Singer ID Jorge [place]FIELD WB-TYPE NATRIURETIC FACTOR (BNP)2019-12-29 05:14:00 Test Item Value Reference Range Interpretation Comments B-TYPE NATRIURETIC PEPTIDE (BEAKER) 562 pg/mL 0-100 H (test code = 700) Choir Singer ID - TRAN [id number] 05:02:00 Test Item Value Reference Range Interpretation Comments PARTIAL THROMBOPLASTIN TIME 70.5 seconds 22.5-36.0 H (BEAKER) (test code = 760) CALCIUM, [id number] 04:39:00 Test Item Value Reference Range Interpretation Comments CALCIUM IONIZED (BEAKER) (test 1.19 mmol/L 1.12-1.27 code = 698) PH, BLOOD (BEAKER) (test code = 7.50 1810) [id number] 01:00:00 Test Item Value Reference Range Interpretation Comments POTASSIUM (BEAKER) 3.2 meq/L 3.5-5.1 L Specimen slightly (test code = 379) hemolyzed Choir Singer ID - EKATERINAOCT-GLUCOSE [id number] 00:50:00 Test Item Value Reference Range Interpretation Comments POC-GLUCOSE METER 130 mg/dL 70-110 H : TESTED A T [facility] 6720 (BEAKER) (test code = [facility], 1538) 0[address]: Choir Singer/Techni lars ID = [id number] for MACIEJ BERRY POCT-GLUCOSE [id number] 19:07:00 Test Item Value Reference Range Interpretation Comments POC-GLUCOSE METER 145 mg/dL 70-110 H : TESTED A T [facility] 6720 (BEAKER) (test code = [facility], 1538) 09605: Choir Singer/Techni lars ID = [id number] for CAROL ANN OSEGUERA BASIC METABOLIC [id number] 17:36:00 Test Item Value Reference Range Interpretation Comments SODIUM (BEAKER) 151 meq/L 136-145 H (test code = 381) POTASSIUM (BEAKER) 3.0 meq/L 3.5-5.1 L (test code = 379) CHLORIDE (BEAKER) 112 meq/L 98-107 H (test code = 382) CO2 (BEAKER) (test 28 meq/L 22-29 code = 355) BLOOD UREA NITROGEN 64 mg/dL 7-21 H (BEAKER) (test code = 354) CREATININE (BEAKER) 1.89 mg/dL 0.57-1.25 H (test code = 358) GLUCOSE RANDOM 181 mg/dL 70-105 H (BEAKER) (test code = 652) CALCIUM (BEAKER) 9.8 mg/dL 8.4-10.2 (test code = 697) EGFR (BEAKER) (test 35 mL/min/1.73 ESTIMA NINA GFR IS code = 1092) sq m NOT ACCURATE CREATININE CLEARANCE IN PREDICTING GLOMERULAR FILTRATION RATE . ESTIMATED GFR I S NOT APPLICABLE FOR DIALYSIS PATIEN TS. Choir Singer ID - [id number] 17:28:00 Test Item Value Reference Range Interpretation Comments PARTIAL THROMBOPLASTIN TIME 87.7 seconds 22.5-36.0 H (BEAKER) (test code = 760) [id number] 13:09:00 Test Item Value Reference Range Interpretation Comments PARTIAL THROMBOPLASTIN TIME 84.3 seconds 22.5-36.0 H (BEAKER) (test code = 760) BLOOD [id number] 13:00:00 Test Item Value Reference Range Interpretation Comments CULTURE (BEAKER) (test No growth in 5 days code = 1095) POCT-GLUCOSE [id number] 12:25:00 Test Item Value Reference Range Interpretation Comments POC-GLUCOSE METER 158 mg/dL 70-110 H : TESTED A T [facility] 6720 (BEAKER) (test code = [facility], 1538) 27[address]: Choir Singer/Techni lars ID = [id number] for AG ADELADONRLAWRENCECAROL ANN RAD, CHEST, 1 VIEW, NON [id number] 12:22:00Reason for exam:- >intubationShould this be performed at the bedside?->YesFINAL REPORT RAD, CHEST, 1 VIEW, NON DEPT INDICATION: intubation COMPARISON: Prior day's exam FINDINGS: Portable frontal view of the chest. IMPRESSION: Support Lines: Stable. Lungs and pleura: Unchanged airspace and pleural opacities. No pneumothorax.Heart and mediastinum: Stable contours. Stable surgical changes.Additional findings: None. Signed: Madeline Casas MDReport Verified Date/Time: 12/28/2019 12:22:37 [facility] BLOOD [id number] 11:00:00 Test Item Value Reference Range Interpretation Comments CULTURE (BEAKER) (test No growth in 5 days code = 1095) BLOOD [id number] 10:01:00 Test Item Value Reference Range Interpretation Comments CULTURE (BEAKER) A From Aerobi c Bottle (test code = Only Same organ ism has 1095) been isolated f rom cultures(s) of the same body site within 3 days. Repeat identification and susceptibility testing performed only after consultation wi the clinical microb iology laboratory.Refe r to previous cultur e of* - staphylococcus lugdunenisi GRAM STAIN From aerobic RESULT (BEAKER) bottle only: (test code = gram positive 1123) cocci in clusters POCT-GLUCOSE [id number] 06:57:00 Test Item Value Reference Range Interpretation Comments POC-GLUCOSE METER 178 mg/dL 70-110 H : TESTED A T [facility] 6720 (BEAKER) (test code = [facility], 1538) [id number]: Choir Singer/Techni lars ID = [id number] for MACIEJ BERRY BLOOD GAS, [id number] 05:21:00 Test Item Value Reference Range Interpretation Comments PH ARTERIAL (BEAKER) (test code = 7.54 7.35-7.45 H 383) PCO2 ARTERIAL (BEAKER) (test code 36 mmHg 35-45 = 384) PO2 ARTERIAL (BEAKER) (test code = 159 mmHg 80-90 H 385) O2 SATURATION ARTERIAL (BEAKER) 99.2 % 96.0-97.0 H (test code = 386) HCO3 ARTERIAL (BEAKER) (test code 30 mmol/L 21-29 H = 388) BASE EXCESS ARTERIAL (BEAKER) 7.0 mmol/L -2.0-3.0 H (test code = 387) PATIENT TEMPERATURE (BEAKER) (test 37.0 C code = 1818) FIO2 (BEAKER) (test code = 1819) 40.0 % [id number] 05:18:00 Test Item Value Reference Range Interpretation Comments MAGNESIUM (BEAKER) 2.4 mg/dL 1.6-2.6 Specimen slightly (test code = 627) hemolyzed Choir Singer ID Jorge MAYFIELD [id number] 05:18:00 Test Item Value Reference Range Interpretation Comments PHOSPHORUS (BEAKER) 3.9 mg/dL 2.3-4.7 Specimen slightly (test code = 604) hemolyzed Choir Singer ID - TRAN WCOMPREHENSIVE METABOLIC [id number] 05:18:00 Test Item Value Reference Range Interpretation Comments TOTAL PROTEIN 6.4 gm/dL 6.0-8.3 Specimen sligh tly (BEAKER) (test code = hemoly zed 770) ALBUMIN (BEAKER) 2.0 g/dL 3.5-5.0 L Specimen sl ightly (test code = 1145) hemolyzed ALKALINE PHOSPHATASE 95 U/L 40-150 (BEAKER) (test code = 346) BILIRUBIN TOTAL 0.9 mg/dL 0.2-1.2 Specimen sli ghtly (BEAKER) (test code = hemoly zed 377) SODIUM (BEAKER) (test 149 meq/L 136-145 H code = 381) POTASSIUM (BEAKER) 3.4 meq/L 3.5-5.1 L Specimen slightly (test code = 379) hemolyzed CHLORIDE (BEAKER) 113 meq/L 98-107 H (test code = 382) CO2 (BEAKER) (test 25 meq/L 22-29 code = 355) BLOOD UREA NITROGEN 57 mg/dL 7-21 H (BEAKER) (test code = 354) CREATININE (BEAKER) 1.96 mg/dL 0.57-1.25 H Specimen slightly (test code = 358) hemolyzed GLUCOSE RANDOM 188 mg/dL 70-105 H (BEAKER) (test code = 652) CALCIUM (BEAKER) 9.3 mg/dL 8.4-10.2 (test code = 697) AST (SGOT) (BEAKER) 44 U/L 5-34 H Specimen slightly (test code = 353) hemolyzed ALT (SGPT) (BEAKER) 22 U/L 6-55 Specimen slightly (test code = 347) hemolyzed EGFR (BEAKER) (test 33 mL/min/1.73 ESTIMA NINA GFR IS code = 1092) sq m NOT ACCURATE CREATININE CLEARANCE IN PREDICTING GLOMERULAR FILTRATION RATE . ESTIMATED GFR I S NOT APPLICABLE FOR DIALYSIS PATIEN TS. Choir Singer ID - TRAN WCBC W/PLT COUNT & AUTO [id number] 05:17:00 Test Item Value Reference Range Interpretation Comments WHITE BLOOD CELL COUNT (BEAKER) 8.4 K/ L 3.5-10.5 (test code = 775) RED BLOOD CELL COUNT (BEAKER) 2.79 M/ L 4.63-6.08 L (test code = 761) HEMOGLOBIN (BEAKER) (test code = 8.3 GM/DL 13.7-17.5 L 410) HEMATOCRIT (BEAKER) (test code = 26.2 % 40.1-51.0 L 411) MEAN CORPUSCULAR VOLUME (BEAKER) 93.9 fL 79.0-92.2 H (test code = 753) MEAN CORPUSCULAR HEMOGLOBIN 29.7 pg 25.7-32.2 (BEAKER) (test code = 751) MEAN CORPUSCULAR HEMOGLOBIN CONC 31.7 GM/DL 32.3-36.5 L (BEAKER) (test code = 752) RED CELL DISTRIBUTION WIDTH 15.9 % 11.6-14.4 H (BEAKER) (test code = 412) PLATELET COUNT (BEAKER) (test 255 K/CU MM 150-450 code = 756) MEAN PLATELET VOLUME (BEAKER) 11.2 fL 9.4-12.4 (test code = 754) NUCLEATED RED BLOOD CELLS 0 /100 WBC 0-0 (BEAKER) (test code = 413) NEUTROPHILS RELATIVE PERCENT 85 % (BEAKER) (test code = 429) LYMPHOCYTES RELATIVE PERCENT 11 % (BEAKER) (test code = 430) MONOCYTES RELATIVE PERCENT 3 % (BEAKER) (test code = 431) EOSINOPHILS RELATIVE PERCENT 1 % (BEAKER) (test code = 432) BASOPHILS RELATIVE PERCENT 0 % (BEAKER) (test code = 437) NEUTROPHILS ABSOLUTE COUNT 7.08 K/ L 1.78-5.38 H (BEAKER) (test code = 670) LYMPHOCYTES ABSOLUTE COUNT 0.90 K/ L 1.32-3.57 L (BEAKER) (test code = 414) MONOCYTES ABSOLUTE COUNT (BEAKER) 0.27 K/ L 0.30-0.82 L (test code = 415) EOSINOPHILS ABSOLUTE COUNT 0.04 K/ L 0.04-0.54 (BEAKER) (test code = 416) BASOPHILS ABSOLUTE COUNT (BEAKER) 0.01 K/ L 0.01-0.08 (test code = 417) IMMATURE GRANULOCYTES-RELATIVE 1 % 0-1 PERCENT (BEAKER) (test code = 2801) CALCIUM, [id number] 05:05:00 Test Item Value Reference Range Interpretation Comments CALCIUM IONIZED (BEAKER) (test 1.24 mmol/L 1.12-1.27 code = 698) PH, BLOOD (BEAKER) (test code = 7.53 1810) [id number] 05:03:00 Test Item Value Reference Range Interpretation Comments PARTIAL THROMBOPLASTIN TIME 64.3 seconds 22.5-36.0 H (BEAKER) (test code = 760) POCT-GLUCOSE [id number] 00:13:00 Test Item Value Reference Range Interpretation Comments POC-GLUCOSE METER 154 mg/dL 70-110 H : TESTED A T [facility] 6720 (BEAKER) (test code = [facility], 1538) 99476: Choir Singer/Techni lars ID = [id number] for MACIEJ BERRY [id number] 23:38:00 Test Item Value Reference Range Interpretation Comments POTASSIUM (BEAKER) (test code = 3.1 meq/L 3.5-5.1 L 379) Choir Singer ID - [id number] 23:38:00 Test Item Value Reference Range Interpretation Comments MAGNESIUM (BEAKER) (test code = 2.3 mg/dL 1.6-2.6 627) Choir Singer ID - DBPOCT-GLUCOSE [id number] 18:39:00 Test Item Value Reference Range Interpretation Comments POC-GLUCOSE METER 167 mg/dL 70-110 H : TESTED A T [facility] 6720 (BEAKER) (test code = [facility], 1538) 35490: Choir Singer/Techni lars ID = [id number] for AG UILAR CAROL ANN CBC W/PLT COUNT & AUTO [id number] 18:12:00 Test Item Value Reference Range Interpretation Comments WHITE BLOOD CELL COUNT (BEAKER) 9.5 K/ L 3.5-10.5 (test code = 775) RED BLOOD CELL COUNT (BEAKER) 2.79 M/ L 4.63-6.08 L (test code = 761) HEMOGLOBIN (BEAKER) (test code = 8.3 GM/DL 13.7-17.5 L 410) HEMATOCRIT (BEAKER) (test code = 26.0 % 40.1-51.0 L 411) MEAN CORPUSCULAR VOLUME (BEAKER) 93.2 fL 79.0-92.2 H (test code = 753) MEAN CORPUSCULAR HEMOGLOBIN 29.7 pg 25.7-32.2 (BEAKER) (test code = 751) MEAN CORPUSCULAR HEMOGLOBIN CONC 31.9 GM/DL 32.3-36.5 L (BEAKER) (test code = 752) RED CELL DISTRIBUTION WIDTH 16.0 % 11.6-14.4 H (BEAKER) (test code = 412) PLATELET COUNT (BEAKER) (test 257 K/CU MM 150-450 code = 756) MEAN PLATELET VOLUME (BEAKER) 11.3 fL 9.4-12.4 (test code = 754) NUCLEATED RED BLOOD CELLS 0 /100 WBC 0-0 (BEAKER) (test code = 413) NEUTROPHILS RELATIVE PERCENT 84 % (BEAKER) (test code = 429) LYMPHOCYTES RELATIVE PERCENT 12 % (BEAKER) (test code = 430) MONOCYTES RELATIVE PERCENT 3 % (BEAKER) (test code = 431) EOSINOPHILS RELATIVE PERCENT 0 % (BEAKER) (test code = 432) BASOPHILS RELATIVE PERCENT 0 % (BEAKER) (test code = 437) NEUTROPHILS ABSOLUTE COUNT 7.93 K/ L 1.78-5.38 H (BEAKER) (test code = 670) LYMPHOCYTES ABSOLUTE COUNT 1.09 K/ L 1.32-3.57 L (BEAKER) (test code = 414) MONOCYTES ABSOLUTE COUNT (BEAKER) 0.32 K/ L 0.30-0.82 (test code = 415) EOSINOPHILS ABSOLUTE COUNT 0.03 K/ L 0.04-0.54 L (BEAKER) (test code = 416) BASOPHILS ABSOLUTE COUNT (BEAKER) 0.01 K/ L 0.01-0.08 (test code = 417) IMMATURE GRANULOCYTES-RELATIVE 1 % 0-1 PERCENT (BEAKER) (test code = 2801) [id number] 15:37:00 Test Item Value Reference Range Interpretation Comments POTASSIUM (BEAKER) (test code = 3.2 meq/L 3.5-5.1 L 379) Choir Singer ID - [id number] 15:37:00 Test Item Value Reference Range Interpretation Comments MAGNESIUM (BEAKER) (test code = 2.2 mg/dL 1.6-2.6 627) Choir Singer ID - BSPOCT-GLUCOSE [id number] 14:19:00 Test Item Value Reference Range Interpretation Comments POC-GLUCOSE METER 146 mg/dL 70-110 H : TESTED A T [facility] 6720 (BEAKER) (test code = [facility], 1538) 66869: Choir Singer/Techni lars ID = [id number] for AG CAROL ANN LOPEZ LACTATE DEHYDROGENASE (LDH), BODY [id number] 10:47:00 Test Item Value Reference Range Interpretation Comments LACTATE DEHYDROGENASE FLUID (BEAKER) 235 U/L (test code = 634) Absence of reference range indicates that normals have not been defined.Assay performance has not been validated for this type of specimen.POCT-GLUCOSE METER 2019-12-27 06:50:00 Test Item Value Reference Range Interpretation Comments POC-GLUCOSE METER 155 mg/dL 70-110 H : TESTED A T [facility] 6720 (BEAKER) (test code = [facility], 1538) 27128: Choir Singer/Techni lars ID = [id number] for MACIEJ BERRY BLOOD GAS, [id number] 05:55:00 Test Item Value Reference Range Interpretation Comments PH ARTERIAL (BEAKER) (test code = 7.54 7.35-7.45 H 383) PCO2 ARTERIAL (BEAKER) (test code 31 mmHg 35-45 L = 384) PO2 ARTERIAL (BEAKER) (test code = 191 mmHg 80-90 H 385) O2 SATURATION ARTERIAL (BEAKER) 99.5 % 96.0-97.0 H (test code = 386) HCO3 ARTERIAL (BEAKER) (test code 26 mmol/L 21-29 = 388) BASE EXCESS ARTERIAL (BEAKER) 3.4 mmol/L -2.0-3.0 H (test code = 387) PATIENT TEMPERATURE (BEAKER) (test 37.0 C code = 1818) FIO2 (BEAKER) (test code = 1819) 30.0 % CBC W/PLT COUNT & AUTO [id number] 04:59:00 Test Item Value Reference Range Interpretation Comments WHITE BLOOD CELL COUNT (BEAKER) 7.9 K/ L 3.5-10.5 (test code = 775) RED BLOOD CELL COUNT (BEAKER) 2.59 M/ L 4.63-6.08 L (test code = 761) HEMOGLOBIN (BEAKER) (test code = 7.6 GM/DL 13.7-17.5 L 410) HEMATOCRIT (BEAKER) (test code = 24.1 % 40.1-51.0 L 411) MEAN CORPUSCULAR VOLUME (BEAKER) 93.1 fL 79.0-92.2 H (test code = 753) MEAN CORPUSCULAR HEMOGLOBIN 29.3 pg 25.7-32.2 (BEAKER) (test code = 751) MEAN CORPUSCULAR HEMOGLOBIN CONC 31.5 GM/DL 32.3-36.5 L (BEAKER) (test code = 752) RED CELL DISTRIBUTION WIDTH 16.3 % 11.6-14.4 H (BEAKER) (test code = 412) PLATELET COUNT (BEAKER) (test 231 K/CU MM 150-450 code = 756) MEAN PLATELET VOLUME (BEAKER) 10.8 fL 9.4-12.4 (test code = 754) NUCLEATED RED BLOOD CELLS 0 /100 WBC 0-0 (BEAKER) (test code = 413) NEUTROPHILS RELATIVE PERCENT 84 % (BEAKER) (test code = 429) LYMPHOCYTES RELATIVE PERCENT 11 % (BEAKER) (test code = 430) MONOCYTES RELATIVE PERCENT 3 % (BEAKER) (test code = 431) EOSINOPHILS RELATIVE PERCENT 1 % (BEAKER) (test code = 432) BASOPHILS RELATIVE PERCENT 0 % (BEAKER) (test code = 437) NEUTROPHILS ABSOLUTE COUNT 6.67 K/ L 1.78-5.38 H (BEAKER) (test code = 670) LYMPHOCYTES ABSOLUTE COUNT 0.86 K/ L 1.32-3.57 L (BEAKER) (test code = 414) MONOCYTES ABSOLUTE COUNT (BEAKER) 0.22 K/ L 0.30-0.82 L (test code = 415) EOSINOPHILS ABSOLUTE COUNT 0.06 K/ L 0.04-0.54 (BEAKER) (test code = 416) BASOPHILS ABSOLUTE COUNT (BEAKER) 0.01 K/ L 0.01-0.08 (test code = 417) IMMATURE GRANULOCYTES-RELATIVE 1 % 0-1 PERCENT (BEAKER) (test code = 2801) HEMOGLOBIN AND [id number] 04:58:00 Test Item Value Reference Range Interpretation Comments HEMOGLOBIN (BEAKER) (test code = 7.6 GM/DL 13.7-17.5 L 410) HEMATOCRIT (BEAKER) (test code = 24.1 % 40.1-51.0 L 411) Choir Singer ID - [id number] 04:54:00 Test Item Value Reference Range Interpretation Comments PARTIAL THROMBOPLASTIN TIME 94.7 seconds 22.5-36.0 H (BEAKER) (test code = 760) [id number] 04:51:00 Test Item Value Reference Range Interpretation Comments MAGNESIUM (BEAKER) (test code = 2.3 mg/dL 1.6-2.6 627) Choir Singer ID - ADAAMRIS MBASIC METABOLIC [id number] 04:51:00 Test Item Value Reference Range Interpretation Comments SODIUM (BEAKER) 147 meq/L 136-145 H (test code = 381) POTASSIUM (BEAKER) 3.4 meq/L 3.5-5.1 L (test code = 379) CHLORIDE (BEAKER) 114 meq/L 98-107 H (test code = 382) CO2 (BEAKER) (test 25 meq/L 22-29 code = 355) BLOOD UREA NITROGEN 64 mg/dL 7-21 H (BEAKER) (test code = 354) CREATININE (BEAKER) 1.90 mg/dL 0.57-1.25 H (test code = 358) GLUCOSE RANDOM 166 mg/dL 70-105 H (BEAKER) (test code = 652) CALCIUM (BEAKER) 8.9 mg/dL 8.4-10.2 (test code = 697) EGFR (BEAKER) (test 35 mL/min/1.73 ESTIMA NINA GFR IS code = 1092) sq m NOT ACCURATE CREATININE CLEARANCE IN PREDICTING GLOMERULAR FILTRATION RATE . ESTIMATED GFR I S NOT APPLICABLE FOR DIALYSIS PATIEN TS. Choir Singer ID - ADAMARIS MRAD, CHEST, 1 VIEW, NON [id number] 04:19:00Reason for exam:->intubationShould this be performed at the bedside?->YesFINAL REPORT RAD, CHEST, 1 VIEW, NON DEPT INDICATION: intubation COMPARISON: Prior day's exam FINDINGS: Portable frontal view of the chest. IMPRESSION: Support Lines: Stable. Lungs and pleura: Unchanged airspace and pleural opacities. No pneumothorax.Heart and mediastinum: Stable contours. Additional findings: None. Signed: Iraida Henleyeport Verified Date/Time: 12/27/2019 04:19:08 POCT-GLUCOSE [id number] 00:40:00 Test Item Value Reference Range Interpretation Comments POC-GLUCOSE METER 136 mg/dL 70-110 H : TESTED A T [facility] 6720 (BEAKER) (test code [facility], = 1538) [id number]: Choir Singer/Techni lars ID = [id number] for MADELEINE CAMARENA [id number] 00:20:00 Test Item Value Reference Range Interpretation Comments POTASSIUM (BEAKER) (test code = 3.2 meq/L 3.5-5.1 L 379) Choir Singer ID - KENNHEMOGLOBIN AND [id number] 00:06:00 Test Item Value Reference Range Interpretation Comments HEMOGLOBIN (BEAKER) (test code = 7.8 GM/DL 13.7-17.5 L 410) HEMATOCRIT (BEAKER) (test code = 25.4 % 40.1-51.0 L 411) Choir Singer ID - [id number] 23:02:00 Test Item Value Reference Range Interpretation Comments PARTIAL THROMBOPLASTIN TIME 75.0 seconds 22.5-36.0 H (BEAKER) (test code = 760) [id number] 18:20:00 Test Item Value Reference Range Interpretation Comments POTASSIUM (BEAKER) (test code = 2.9 meq/L 3.5-5.1 L 379) Choir Singer ID - STACY [id number] 18:20:00 Test Item Value Reference Range Interpretation Comments MAGNESIUM (BEAKER) (test code = 2.3 mg/dL 1.6-2.6 627) Choir Singer ID - STACY NPOCT-GLUCOSE [id number] 17:33:00 Test Item Value Reference Range Interpretation Comments POC-GLUCOSE METER 127 mg/dL 70-110 H : TESTED A T [facility] 6720 (BEAKER) (test code = [facility], 1538) 86380: Choir Singer/Techni lars ID = [id number] for [place] CULVER HEMOGLOBIN AND [id number] 14:43:00 Test Item Value Reference Range Interpretation Comments HEMOGLOBIN (BEAKER) (test code = 7.8 GM/DL 13.7-17.5 L 410) HEMATOCRIT (BEAKER) (test code = 25.0 % 40.1-51.0 L 411) Choir Singer ID - 6000POCT-GLUCOSE [id number] 13:37:00 Test Item Value Reference Range Interpretation Comments POC-GLUCOSE METER 123 mg/dL 70-110 H : TESTED A T [facility] 6720 (BEAKER) (test code = [facility], 1538) 04522: Choir Singer/Techni lars ID = [id number] for [place] CULVER BLOOD [id number] 12:41:00 Test Item Value Reference Interpretation Comments Range CULTURE (BEAKER) STAPHYLOCOCCUS A From Aero bic And (test code = 1095) LUGDUNENSIS Anaerobic Bottles Staphylococcus lugdunensis Clindamycin (test R code = 10) Erythromycin (test R code = 4) Levofloxacin (test S code = 22) Linezolid (test code S = 40) Nitrofurantoin (test S code = 23) Oxacillin (test code S = 14) Rifampin (test code = S 43) Tetracycline (test R code = 2) Trimethoprim + S Sulfamethoxazole (test code = 47) Vancomycin (test code S = 13) GRAM STAIN RESULT From aerobic and (BEAKER) (test code = anaerobic bottles: 1123) gram positive cocci in clusters [id number] 09:37:00 Test Item Value Reference Range Interpretation Comments PARTIAL THROMBOPLASTIN TIME 97.2 seconds 22.5-36.0 H (BEAKER) (test code = 760) RAD, CHEST, 1 VIEW, NON [id number] 09:11:00Reason for exam:- >intubationShould this be performed at the bedside?->YesFINAL REPORT Chest, one view HISTORY: Respiratory failure Comparison: 12/25/2019 Findings: Lungs: Stable bibasilar airspace disease. Heart: Stable cardiomegaly. Pleura: No pleuraleffusion or pneumothorax. Bones: Unremarkable. Lines/tubes: Unchanged in position. IMPRESSION: No significant interval change. Signed: Matthew Georgeepspeedy Verified Date/Time: 12/26/2019 09:11:59 R eading Location: [facility] C013X Ortho Consult Reading Room SPUTUM CULTURE + GRAM STAIN 2019-12-26 09:01:00 Test Item Value Reference Range Interpretation Comments CULTURE (BEAKER) See comment (test code = 1095) GRAM STAIN RESULT 1+ WBCs (BEAKER) (test code = 1123) GRAM STAIN RESULT 0-5 epithelial cells (BEAKER) (test code = 195904) GRAM STAIN RESULT <1+ gram positive cocci (BEAKER) (test code in pairs = 487697) GRAM STAIN RESULT <1+ budding yeast (BEAKER) (test code = 031197) GRAM STAIN RESULT <1+ gram variable (BEAKER) (test code coccobacilli = 531416) 1+ YeastNo Normal respiratory juan presentHEMOGLOBIN AND [id number] 08:11:00 Test Item Value Reference Range Interpretation Comments HEMOGLOBIN (BEAKER) (test code = 6.6 GM/DL 13.7-17.5 L 410) HEMATOCRIT (BEAKER) (test code = 20.9 % 40.1-51.0 L 411) Choir Singer ID - 6000POCT-GLUCOSE [id number] 06:39:00 Test Item Value Reference Range Interpretation Comments POC-GLUCOSE METER 130 mg/dL 70-110 H : TESTED A T [facility] 6720 (BEAKER) (test code = [place], 1538) 36901: Choir Singer/Techni lars ID = [id number] for YE , WEIPING BLOOD GAS, [id number] 05:05:00 Test Item Value Reference Range Interpretation Comments PH ARTERIAL (BEAKER) (test code = 7.51 7.35-7.45 H 383) PCO2 ARTERIAL (BEAKER) (test code 34 mmHg 35-45 L = 384) PO2 ARTERIAL (BEAKER) (test code = 105 mmHg 80-90 H 385) O2 SATURATION ARTERIAL (BEAKER) 98.2 % 96.0-97.0 H (test code = 386) HCO3 ARTERIAL (BEAKER) (test code 26 mmol/L 21-29 = 388) BASE EXCESS ARTERIAL (BEAKER) 3.0 mmol/L -2.0-3.0 (test code = 387) PATIENT TEMPERATURE (BEAKER) (test 37.5 C code = 1818) FIO2 (BEAKER) (test code = 1819) 30.0 % [id number] 03:31:00 Test Item Value Reference Range Interpretation Comments MAGNESIUM (BEAKER) 2.1 mg/dL 1.6-2.6 Specimen slightly (test code = 627) hemolyzed Choir Singer ID - ADAMARIS MBASIC METABOLIC [id number] 03:31:00 Test Item Value Reference Range Interpretation Comments SODIUM (BEAKER) 148 meq/L 136-145 H (test code = 381) POTASSIUM (BEAKER) 3.8 meq/L 3.5-5.1 Specimen slightly (test code = 379) hemolyzed CHLORIDE (BEAKER) 117 meq/L 98-107 H (test code = 382) CO2 (BEAKER) (test 23 meq/L 22-29 code = 355) BLOOD UREA NITROGEN 66 mg/dL 7-21 H (BEAKER) (test code = 354) CREATININE (BEAKER) 1.72 mg/dL 0.57-1.25 H Specimen slightly (test code = 358) hemolyzed GLUCOSE RANDOM 137 mg/dL 70-105 H (BEAKER) (test code = 652) CALCIUM (BEAKER) 8.6 mg/dL 8.4-10.2 (test code = 697) EGFR (BEAKER) (test 39 mL/min/1.73 ESTIMA NINA GFR IS code = 1092) sq m NOT ACCURATE CREATININE CLEARANCE IN PREDICTING GLOMERULAR FILTRATION RATE . ESTIMATED GFR I S NOT APPLICABLE FOR DIALYSIS PATIEN TS. Choir Singer ID - ADAMARIS [id number] 03:18:00 Test Item Value Reference Range Interpretation Comments PARTIAL THROMBOPLASTIN TIME 79.6 seconds 22.5-36.0 H (BEAKER) (test code = 760) CBC W/PLT COUNT & AUTO [id number] 03:06:00 Test Item Value Reference Range Interpretation Comments WHITE BLOOD CELL COUNT (BEAKER) 8.6 K/ L 3.5-10.5 (test code = 775) RED BLOOD CELL COUNT (BEAKER) 2.25 M/ L 4.63-6.08 L (test code = 761) HEMOGLOBIN (BEAKER) (test code = 6.6 GM/DL 13.7-17.5 L 410) HEMATOCRIT (BEAKER) (test code = 21.6 % 40.1-51.0 L 411) MEAN CORPUSCULAR VOLUME (BEAKER) 96.0 fL 79.0-92.2 H (test code = 753) MEAN CORPUSCULAR HEMOGLOBIN 29.3 pg 25.7-32.2 (BEAKER) (test code = 751) MEAN CORPUSCULAR HEMOGLOBIN CONC 30.6 GM/DL 32.3-36.5 L (BEAKER) (test code = 752) RED CELL DISTRIBUTION WIDTH 16.8 % 11.6-14.4 H (BEAKER) (test code = 412) PLATELET COUNT (BEAKER) (test 251 K/CU MM 150-450 code = 756) MEAN PLATELET VOLUME (BEAKER) 10.7 fL 9.4-12.4 (test code = 754) NUCLEATED RED BLOOD CELLS 0 /100 WBC 0-0 (BEAKER) (test code = 413) NEUTROPHILS RELATIVE PERCENT 85 % (BEAKER) (test code = 429) LYMPHOCYTES RELATIVE PERCENT 11 % (BEAKER) (test code = 430) MONOCYTES RELATIVE PERCENT 3 % (BEAKER) (test code = 431) EOSINOPHILS RELATIVE PERCENT 1 % (BEAKER) (test code = 432) BASOPHILS RELATIVE PERCENT 0 % (BEAKER) (test code = 437) NEUTROPHILS ABSOLUTE COUNT 7.30 K/ L 1.78-5.38 H (BEAKER) (test code = 670) LYMPHOCYTES ABSOLUTE COUNT 0.91 K/ L 1.32-3.57 L (BEAKER) (test code = 414) MONOCYTES ABSOLUTE COUNT (BEAKER) 0.24 K/ L 0.30-0.82 L (test code = 415) EOSINOPHILS ABSOLUTE COUNT 0.07 K/ L 0.04-0.54 (BEAKER) (test code = 416) BASOPHILS ABSOLUTE COUNT (BEAKER) 0.01 K/ L 0.01-0.08 (test code = 417) IMMATURE GRANULOCYTES-RELATIVE 1 % 0-1 PERCENT (BEAKER) (test code = 2801) POCT-GLUCOSE [id number] 00:00:00 Test Item Value Reference Range Interpretation Comments POC-GLUCOSE METER 100 mg/dL 70-110 : [facility] (BEAKER) (test code = [facility], 153) [id number]: Choir Singer/Techni lars ID = [id number] for YE , WEIPING EOSINOPHIL SMEAR, [id number] 20:38:00 Test Item Value Reference Range Interpretation Comments EOSINOPHIL SMEAR, URINE (BEAKER) No EOS seen No EOS seen (test code = 1851) SODIUM, RANDOM [id number] 20:30:00 Test Item Value Reference Range Interpretation Comments SODIUM URINE (BEAKER) (test code = < meq/L 243) Reference Range: No NormalsOperator ID - [id number] 20:29:00 Test Item Value Reference Range Interpretation Comments PARTIAL THROMBOPLASTIN TIME 56.5 seconds 22.5-36.0 H (BEAKER) (test code = 760) CREATININE, RANDOM [id number] 19:41:00 Test Item Value Reference Range Interpretation Comments CREATININE URINE (BEAKER) (test 51.6 mg/dL code = 375) Reference Range: No NormalsOperator ID - KENNPROTEIN, RANDOM [id number] 19:41:00 Test Item Value Reference Range Interpretation Comments PROTEIN, URINE (BEAKER) (test code = 22 mg/dL 0-14 H 1569) Choir Singer ID - [id number] 18:41:00 Test Item Value Reference Range Interpretation Comments PARTIAL THROMBOPLASTIN TIME 114.5 seconds 22.5-36.0 H (BEAKER) (test code = 760) POCT-GLUCOSE [id number] 18:24:00 Test Item Value Reference Range Interpretation Comments POC-GLUCOSE METER 130 mg/dL 70-110 H : TESTED A T [facility] 6720 (BEAKER) (test code = [facility], 153) [address]: Choir Singer/Techni lars ID = [id number] for LISBET KRAMER BLOOD [id number] 16:17:00 Test Item Value Reference Range Interpretation Comments CULTURE A From Anaerobic Bottle (BEAKER) (test Only Coagulas e code = 1095) negative Staphylococcus GRAM STAIN From anaerobic RESULT (BEAKER) bottle only: gram (test code = positive cocci in 1123) clusters BODY FLUID CULTURE + GRAM [id number] 13:20:00 Test Item Value Reference Range Interpretation Comments CULTURE (BEAKER) (test No growth code = 1095) GRAM STAIN RESULT <1+ White blood cells (BEAKER) (test code = seen 1123) GRAM STAIN RESULT No organisms seen (BEAKER) (test code = 72779) POCT-GLUCOSE [id number] 12:41:00 Test Item Value Reference Range Interpretation Comments POC-GLUCOSE METER 143 mg/dL 70-110 H : TESTED A T [facility] 6720 (BEAKER) (test code = [place] [facility], 1538) [address]: Choir Singer/Techni lars ID = [id number] for LISBET KRAMER [id number] 12:32:00 Test Item Value Reference Range Interpretation Comments PARTIAL THROMBOPLASTIN TIME 92.9 seconds 22.5-36.0 H (BEAKER) (test code = 760) U/S, RENAL, [id number] 10:05:00Reason for exam:->akiFINAL REPORT Comparison: CT of [...] disease. No hydronephrosis bilaterally. Signed: Alberto Webster [facility] Verified Date/Time: 12/25/2019 10:05:41 Reading Location: [facility] B1 C013T Transitional Reading Room MAGNESIUM 2019-12-25 07:22:00 Test Item Value Reference Range Interpretation Comments MAGNESIUM (BEAKER) 2.4 mg/dL 1.6-2.6 Specimen slightly (test code = 627) hemolyzed Choir Singer ID - JEN [id number] 07:22:00 Test Item Value Reference Range Interpretation Comments PHOSPHORUS (BEAKER) 3.9 mg/dL 2.3-4.7 Specimen slightly (test code = 604) hemolyzed Choir Singer ID - JEN CCOMPREHENSIVE METABOLIC [id number] 07:22:00 Test Item Value Reference Range Interpretation Comments TOTAL PROTEIN 6.2 gm/dL 6.0-8.3 Specimen sligh tly (BEAKER) (test code = hemoly zed 770) ALBUMIN (BEAKER) 2.0 g/dL 3.5-5.0 L Specimen sl ightly (test code = 1145) hemolyzed ALKALINE PHOSPHATASE 86 U/L 40-150 (BEAKER) (test code = 346) BILIRUBIN TOTAL 0.9 mg/dL 0.2-1.2 Specimen sli ghtly (BEAKER) (test code = hemoly zed 377) SODIUM (BEAKER) (test 147 meq/L 136-145 H code = 381) POTASSIUM (BEAKER) 3.7 meq/L 3.5-5.1 Specimen slightly (test code = 379) hemolyzed CHLORIDE (BEAKER) 117 meq/L 98-107 H (test code = 382) CO2 (BEAKER) (test 24 meq/L 22-29 code = 355) BLOOD UREA NITROGEN 57 mg/dL 7-21 H (BEAKER) (test code = 354) CREATININE (BEAKER) 1.63 mg/dL 0.57-1.25 H Specimen slightly (test code = 358) hemolyzed GLUCOSE RANDOM 205 mg/dL 70-105 H (BEAKER) (test code = 652) CALCIUM (BEAKER) 9.0 mg/dL 8.4-10.2 (test code = 697) AST (SGOT) (BEAKER) 27 U/L 5-34 Specimen slightly (test code = 353) hemolyzed ALT (SGPT) (BEAKER) 16 U/L 6-55 Specimen slightly (test code = 347) hemolyzed EGFR (BEAKER) (test 41 mL/min/1.73 ESTIMA NINA GFR IS code = 1092) sq m NOT ACCURATE CREATININE CLEARANCE IN PREDICTING GLOMERULAR FILTRATION RATE . ESTIMATED GFR I S NOT APPLICABLE FOR DIALYSIS PATIEN TS. Choir Singer ID - JEN CPOCT-GLUCOSE [id number] 06:58:00 Test Item Value Reference Range Interpretation Comments POC-GLUCOSE METER 179 mg/dL 70-110 H : TESTED A T [facility] 6720 (BEAKER) (test code = [place] [facility], 1538) [address]: Choir Singer/Techni lars ID = [id number] for NAZARIO KIRBY ISOL RAD, CHEST, 1 VIEW, NON [id number] 06:12:00Reason for exam:- >intubationShould this be performed [...] MDReport Verified Date/Time: 12/25/2019 06:12:41 COMPLEMENT COMPONENT [id number] 05:28:00 Test Item Value Reference Range Interpretation Comments C4 COMPLEMENT (BEAKER) (test code = 28 mg/dL 15-57 394) Choir Singer ID - ADAMARIS MCOMPLEMENT COMPONENT [id number] 05:28:00 Test Item Value Reference Range Interpretation Comments C3 COMPLEMENT (BEAKER) (test code = 142 mg/dL 82-193 393) Choir Singer ID - ADAMARIS MCALCIUM, [id number] 05:24:00 Test Item Value Reference Range Interpretation Comments CALCIUM IONIZED (BEAKER) (test 1.21 mmol/L 1.12-1.27 code = 698) PH, BLOOD (BEAKER) (test code = 7.50 1810) BLOOD GAS, [id number] 05:14:00 Test Item Value Reference Range Interpretation Comments PH ARTERIAL (BEAKER) (test code = 7.49 7.35-7.45 H 383) PCO2 ARTERIAL (BEAKER) (test code 35 mmHg 35-45 = 384) PO2 ARTERIAL (BEAKER) (test code = 165 mmHg 80-90 H 385) O2 SATURATION ARTERIAL (BEAKER) 99.2 % 96.0-97.0 H (test code = 386) HCO3 ARTERIAL (BEAKER) (test code 26 mmol/L 21-29 = 388) BASE EXCESS ARTERIAL (BEAKER) 2.5 mmol/L -2.0-3.0 (test code = 387) PATIENT TEMPERATURE (BEAKER) (test 36.7 C code = 1818) FIO2 (BEAKER) (test code = 1819) 30.0 % [id number] 05:11:00 Test Item Value Reference Range Interpretation Comments PARTIAL THROMBOPLASTIN TIME 67.7 seconds 22.5-36.0 H (BEAKER) (test code = 760) CBC W/PLT COUNT & AUTO [id number] 05:01:00 Test Item Value Reference Range Interpretation Comments WHITE BLOOD CELL COUNT (BEAKER) 10.2 K/ L 3.5-10.5 (test code = 775) RED BLOOD CELL COUNT (BEAKER) 2.48 M/ L 4.63-6.08 L (test code = 761) HEMOGLOBIN (BEAKER) (test code = 7.3 GM/DL 13.7-17.5 L 410) HEMATOCRIT (BEAKER) (test code = 23.9 % 40.1-51.0 L 411) MEAN CORPUSCULAR VOLUME (BEAKER) 96.4 fL 79.0-92.2 H (test code = 753) MEAN CORPUSCULAR HEMOGLOBIN 29.4 pg 25.7-32.2 (BEAKER) (test code = 751) MEAN CORPUSCULAR HEMOGLOBIN CONC 30.5 GM/DL 32.3-36.5 L (BEAKER) (test code = 752) RED CELL DISTRIBUTION WIDTH 16.6 % 11.6-14.4 H (BEAKER) (test code = 412) PLATELET COUNT (BEAKER) (test 311 K/CU MM 150-450 code = 756) MEAN PLATELET VOLUME (BEAKER) 10.5 fL 9.4-12.4 (test code = 754) NUCLEATED RED BLOOD CELLS 0 /100 WBC 0-0 (BEAKER) (test code = 413) NEUTROPHILS RELATIVE PERCENT 79 % (BEAKER) (test code = 429) LYMPHOCYTES RELATIVE PERCENT 15 % (BEAKER) (test code = 430) MONOCYTES RELATIVE PERCENT 4 % (BEAKER) (test code = 431) EOSINOPHILS RELATIVE PERCENT 1 % (BEAKER) (test code = 432) BASOPHILS RELATIVE PERCENT 0 % (BEAKER) (test code = 437) NEUTROPHILS ABSOLUTE COUNT 8.09 K/ L 1.78-5.38 H (BEAKER) (test code = 670) LYMPHOCYTES ABSOLUTE COUNT 1.50 K/ L 1.32-3.57 (BEAKER) (test code = 414) MONOCYTES ABSOLUTE COUNT (BEAKER) 0.44 K/ L 0.30-0.82 (test code = 415) EOSINOPHILS ABSOLUTE COUNT 0.06 K/ L 0.04-0.54 (BEAKER) (test code = 416) BASOPHILS ABSOLUTE COUNT (BEAKER) 0.01 K/ L 0.01-0.08 (test code = 417) IMMATURE GRANULOCYTES-RELATIVE 1 % 0-1 PERCENT (BEAKER) (test code = 2801) POCT-GLUCOSE [id number] 01:26:00 Test Item Value Reference Range Interpretation Comments POC-GLUCOSE METER 150 mg/dL 70-110 H : TESTED A T [facility] 6720 (BEAKER) (test code = [facility], 1538) [address]: Choir Singer/Techni lars ID = [id number] for RONNY AQUINO LAMIN POCT-GLUCOSE [id number] 17:58:00 Test Item Value Reference Range Interpretation Comments POC-GLUCOSE METER 166 mg/dL 70-110 H : TESTED A T [facility] 6720 (BEAKER) (test code = [facility], 1538) [address]: Choir Singer/Techni lars ID = [id number] for ZAC LISBET COBURN EEG AWAKE AND [id number] 17:26:00Reason for exam:->[facility] DATE(s) OF TEST: 12/16/2019DATE OF REPORT: 12/16/2019ACC: [id number]: 20-0325Start time/date: 15:16Stop time/date: 15:37ICD-10: R56.9CPT Code: 30668 HISTORY: 74 year old man with encephalopathy, [...] Marcell M.D., FACNS, FAAN, FAESProfessor of Neurology, [facility] Memorial HospitalDirector, [facility] CenterHealthsouth [facility] CREATINE KINASE (CK)2019-12-24 12:26:00 Test Item Value Reference Range Interpretation Comments CREATINE KINASE TOTAL (NICOLEAKER) (test 13 U/L 29-200 L code = 380) Choir Singer ID - PIAYA LPOCT-GLUCOSE [id number] 12:11:00 Test Item Value Reference Range Interpretation Comments POC-GLUCOSE METER 155 mg/dL 70-110 H : TESTED A T [facility] 6720 (HAYDEN) (test code = [place], 6544) [address]: Choir Singer/Techni lars ID = [id number] for LISBET KRAMER RAD, CHEST, 1 VIEW, NON [id number] 10:12:00Reason for exam:- >intubationShould this be performed [...] are seen in the spine. Signed: Erika Patel MDReport Verified Date/Time: 12/24/2019 10:12:54 Reading Location: [address] Transitional Reading Room BASIC METABOLIC [id number] 09:59:00 Test Item Value Reference Range Interpretation Comments SODIUM (BEAKER) 147 meq/L 136-145 H (test code = 381) POTASSIUM (BEAKER) 3.7 meq/L 3.5-5.1 (test code = 379) CHLORIDE (BEAKER) 115 meq/L 98-107 H (test code = 382) CO2 (BEAKER) (test 24 meq/L 22-29 code = 355) BLOOD UREA NITROGEN 63 mg/dL 7-21 H (BEAKER) (test code = 354) CREATININE (BEAKER) 1.66 mg/dL 0.57-1.25 H (test code = 358) GLUCOSE RANDOM 203 mg/dL 70-105 H (BEAKER) (test code = 652) CALCIUM (BEAKER) 8.7 mg/dL 8.4-10.2 (test code = 697) EGFR (BEAKER) (test 40 mL/min/1.73 ESTIMA NINA GFR IS code = 1092) sq m NOT ACCURATE CREATININE CLEARANCE IN PREDICTING GLOMERULAR FILTRATION RATE . ESTIMATED GFR I S NOT APPLICABLE FOR DIALYSIS PATIEN TS. Choir Singer ID - PIAYA LBLOOD GAS, [id number] 08:25:00 Test Item Value Reference Range Interpretation Comments PH ARTERIAL (BEAKER) (test code = 7.46 7.35-7.45 H 383) PCO2 ARTERIAL (BEAKER) (test code 20 mmHg 35-45 LL = 384) PO2 ARTERIAL (BEAKER) (test code 219 mmHg 80-90 H = 385) O2 SATURATION ARTERIAL (BEAKER) 99.5 % 96.0-97.0 H (test code = 386) HCO3 ARTERIAL (BEAKER) (test code 14 mmol/L 21-29 L = 388) BASE EXCESS ARTERIAL (BEAKER) -9.6 mmol/L -2.0-3.0 L (test code = 387) PATIENT TEMPERATURE (BEAKER) 37.1 C (test code = 1818) FIO2 (BEAKER) (test code = 1819) 45.0 % POCT-GLUCOSE [id number] 06:32:00 Test Item Value Reference Range Interpretation Comments POC-GLUCOSE METER 186 mg/dL 70-110 H : [facility] (BEAKER) (test code = [place], 1538) [address]: Choir Singer/Techni lars ID = [id number] for Co bb, Genesis [id number] 03:57:00 Test Item Value Reference Range Interpretation Comments MAGNESIUM (BEAKER) 2.3 mg/dL 1.6-2.6 Specimen slightly (test code = 627) hemolyzed Choir Singer ID - LV LBASIC METABOLIC [id number] 03:57:00 Test Item Value Reference Range Interpretation Comments SODIUM (BEAKER) 146 meq/L 136-145 H (test code = 381) POTASSIUM (BEAKER) 3.8 meq/L 3.5-5.1 Specimen slightly (test code = 379) hemolyzed CHLORIDE (BEAKER) 114 meq/L 98-107 H (test code = 382) CO2 (BEAKER) (test 24 meq/L 22-29 code = 355) BLOOD UREA NITROGEN 59 mg/dL 7-21 H (BEAKER) (test code = 354) CREATININE (BEAKER) 1.72 mg/dL 0.57-1.25 H Specimen slightly (test code = 358) hemolyzed GLUCOSE RANDOM 242 mg/dL 70-105 H (BEAKER) (test code = 652) CALCIUM (BEAKER) 8.9 mg/dL 8.4-10.2 (test code = 697) EGFR (BEAKER) (test 39 mL/min/1.73 ESTIMA NINA GFR IS code = 1092) sq m NOT ACCURATE CREATININE CLEARANCE IN PREDICTING GLOMERULAR FILTRATION RATE . ESTIMATED GFR I S NOT APPLICABLE FOR DIALYSIS PATIEN TS. Choir Singer ID - LV LLACTIC ACID, [id number] 03:44:00 Test Item Value Reference Range Interpretation Comments LACTATE BLOOD ARTERIAL (2) 1.9 mmol/L 0.5-2.2 (BEAKER) (test code = 2874) Choir Singer ID - LV LCBC W/PLT COUNT & AUTO [id number] 03:40:00 Test Item Value Reference Range Interpretation Comments WHITE BLOOD CELL COUNT (BEAKER) 12.0 K/ L 3.5-10.5 H (test code = 775) RED BLOOD CELL COUNT (BEAKER) 2.52 M/ L 4.63-6.08 L (test code = 761) HEMOGLOBIN (BEAKER) (test code = 7.5 GM/DL 13.7-17.5 L 410) HEMATOCRIT (BEAKER) (test code = 23.8 % 40.1-51.0 L 411) MEAN CORPUSCULAR VOLUME (BEAKER) 94.4 fL 79.0-92.2 H (test code = 753) MEAN CORPUSCULAR HEMOGLOBIN 29.8 pg 25.7-32.2 (BEAKER) (test code = 751) MEAN CORPUSCULAR HEMOGLOBIN CONC 31.5 GM/DL 32.3-36.5 L (BEAKER) (test code = 752) RED CELL DISTRIBUTION WIDTH 16.8 % 11.6-14.4 H (BEAKER) (test code = 412) PLATELET COUNT (BEAKER) (test 307 K/CU MM 150-450 code = 756) MEAN PLATELET VOLUME (BEAKER) 11.0 fL 9.4-12.4 (test code = 754) NUCLEATED RED BLOOD CELLS 0 /100 WBC 0-0 (BEAKER) (test code = 413) NEUTROPHILS RELATIVE PERCENT 82 % (BEAKER) (test code = 429) LYMPHOCYTES RELATIVE PERCENT 13 % (BEAKER) (test code = 430) MONOCYTES RELATIVE PERCENT 4 % (BEAKER) (test code = 431) EOSINOPHILS RELATIVE PERCENT 0 % (BEAKER) (test code = 432) BASOPHILS RELATIVE PERCENT 0 % (BEAKER) (test code = 437) NEUTROPHILS ABSOLUTE COUNT 9.86 K/ L 1.78-5.38 H (BEAKER) (test code = 670) LYMPHOCYTES ABSOLUTE COUNT 1.49 K/ L 1.32-3.57 (BEAKER) (test code = 414) MONOCYTES ABSOLUTE COUNT (BEAKER) 0.48 K/ L 0.30-0.82 (test code = 415) EOSINOPHILS ABSOLUTE COUNT 0.01 K/ L 0.04-0.54 L (BEAKER) (test code = 416) BASOPHILS ABSOLUTE COUNT (BEAKER) 0.01 K/ L 0.01-0.08 (test code = 417) IMMATURE GRANULOCYTES-RELATIVE 1 % 0-1 PERCENT (BEAKER) (test code = 2801) [id number] 02:59:00 Test Item Value Reference Range Interpretation Comments PARTIAL THROMBOPLASTIN TIME 88.1 seconds 22.5-36.0 H (BEAKER) (test code = 760) POCT-GLUCOSE [id number] 00:23:00 Test Item Value Reference Range Interpretation Comments POC-GLUCOSE METER 219 mg/dL 70-110 H : [facility] (BEAKER) (test code = [facility], 1538) [address]: Choir Singer/Techni lras ID = [id number] for Genesis Potts [id number] 20:07:00 Test Item Value Reference Range Interpretation Comments PARTIAL THROMBOPLASTIN TIME 70.4 seconds 22.5-36.0 H (BEAKER) (test code = 760) PET/CT, WHOLE BODY [id number] 19:37:00FINAL REPORT PROCEDURE: FDG PET/CT for inflammation CPT CODE: 33830 INDICATION: FDG PET/CT was obtained localize persistent [...] Focal inflammation cannot be excluded.Signed: Susan Craig MDReport Verified Date/Time: 12/23/2019 19:37:11 POCT-GLUCOSE [id number] 18:31:00 Test Item Value Reference Range Interpretation Comments POC-GLUCOSE METER 158 mg/dL 70-110 H : TESTED A T [facility] 6720 (BEAKER) (test code = [place] [facility], 1538) [address]: Choir Singer/Techni lars ID = [id number] for NICOLE BONI LUCY RESPIRATORY PANEL [id number] 18:28:00 Test Item Value Reference Range Interpretation Comments HUMAN METAPNEUMOVIRUS Not detected Not detected, (BEAKER) (test code = 2683) Equivocal RHINOVIRUS (BEAKER) (test Not detected Not detected, code = 2684) Equivocal INFLUENZA A (BEAKER) (test Not detected Not detected, code = 2685) Equivocal INFLUENZA A (NO SUBTYPE) (test code = 3606) INFLUENZA A SUBTYPE H1 (BEAKER) (test code = 2686) INFLUENZA A SUBTYPE H3 (BEAKER) (test code = 2687) INFLUENZA A SUBTYPE H1-2009 (BEAKER) (test code = 3198) INFLUENZA B (BEAKER) (test Not detected Not detected, code = 2688) Equivocal RESPIRATORY SYNCYTIAL VIRUS Not detected Not detected, (BEAKER) (test code = 3199) Equivocal PARAINFLUENZA VIRUS 1 Not detected Not detected, (BEAKER) (test code = 2691) Equivocal PARAINFLUENZA VIRUS 2 Not detected Not detected, (BEAKER) (test code = 2692) Equivocal PARAINFLUENZA VIRUS 3 Not detected Not detected, (BEAKER) (test code = 2693) Equivocal PARAINFLUENZA VIRUS 4 Not detected Not detected, (BEAKER) (test code = 3200) Equivocal ADENOVIRUS (BEAKER) (test Not detected Not detected, code = 2694) Equivocal CORONAVIRUS 229E (BEAKER) Not detected Not detected, (test code = 3201) Equivocal CORONAVIRUS HKU1 (BEAKER) Not detected Not detected, (test code = 3202) Equivocal CORONAVIRUS NL63 (BEAKER) Not detected Not detected, (test code = 3203) Equivocal CORONAVIRUS OC43 (BEAKER) Not detected Not detected, (test code = 3204) Equivocal BORDETELLA PERTUSSIS Not detected Not detected, (BEAKER) (test code = 3205) Equivocal CHLAMYDOPHILA PNEUMONIAE Not detected Not detected, (BEAKER) (test code = 3206) Equivocal MYCOPLASMA PNEUMONIAE Not detected Not detected, (BEAKER) (test code = 3207) Equivocal Other viruses and bacteria not targeted by this PCR panel cannot be excluded; therefore clinical correlation and follow up of serology, culture results, and other molecular studies is required. The results are not intended to be used as the sole means for clinical diagnosis or patient management decisions. This sample was tested at the [facility] Molecular Diagnostics Laboratory using the [employer] Communication[employer] Respiratory Panel. It is FDA cleared and has been verified and approved by the [facility]ostics [facility] for clinical use on nasopharyngeal swab specimens.The performance of the FilmArrayRP has not been established in individuals who received influenza vaccine. Recent administration ofa nasal influenza vaccine may cause false positive results for Influenza A and/orInfluenza B.POCT-GLUCOSE [id number] 15:39:00 Test Item Value Reference Range Interpretation Comments POC-GLUCOSE METER 169 mg/dL 70-110 H : Notified RN/MD: ([place]DEN) (test code = TESTED AT [facility] 6720 1538) [facility], [address]: Choir Singer/Techni lars ID = [id number] for RAHEL SALMON [id number] 14:46:00 Test Item Value Reference Range Interpretation Comments CORTISOL, TOTAL (BEAKER) (test 22.9 ug/dL 3.7-19.4 H code = 2755) Choir Singer ID - KARL MPOCT-GLUCOSE [id number] 14:29:00 Test Item Value Reference Range Interpretation Comments POC-GLUCOSE METER 153 mg/dL 70-110 H : TESTED A T [facility] 6720 (BEAKER) (test code = [place] [facility], 1538) [address]: Choir Singer/Techni lars ID = [id number] for BLAIRE AMES [id number] 14:27:00 Test Item Value Reference Range Interpretation Comments PARTIAL THROMBOPLASTIN TIME 34.9 seconds 22.5-36.0 (BEAKER) (test code = 760) LACTIC ACID, [id number] 14:25:00 Test Item Value Reference Range Interpretation Comments LACTATE BLOOD ARTERIAL (2) 1.8 mmol/L 0.5-2.2 (BEAKER) (test code = 2874) Choir Singer ID - IBAN FHEMOGLOBIN AND [id number] 14:10:00 Test Item Value Reference Range Interpretation Comments HEMOGLOBIN (BEAKER) (test code = 8.2 GM/DL 13.7-17.5 L 410) HEMATOCRIT (BEAKER) (test code = 25.7 % 40.1-51.0 L 411) Choir Singer ID - 6000BLOOD GAS, [id number] 14:04:00 Test Item Value Reference Range Interpretation Comments PH ARTERIAL (BEAKER) (test code = 7.49 7.35-7.45 H 383) PCO2 ARTERIAL (BEAKER) (test code 35 mmHg 35-45 = 384) PO2 ARTERIAL (BEAKER) (test code = 86 mmHg 80-90 385) O2 SATURATION ARTERIAL (BEAKER) 97.0 % 96.0-97.0 (test code = 386) HCO3 ARTERIAL (BEAKER) (test code 26 mmol/L 21-29 = 388) BASE EXCESS ARTERIAL (BEAKER) 3.1 mmol/L -2.0-3.0 H (test code = 387) PATIENT TEMPERATURE (BEAKER) (test 37.7 C code = 1818) FIO2 (BEAKER) (test code = 1819) 45.0 % [id number] 13:21:00 Test Item Value Reference Range Interpretation Comments MAGNESIUM (BEAKER) 2.2 mg/dL 1.6-2.6 Specimen slightly (test code = 627) hemolyzed Choir Singer ID - KARL MBASIC METABOLIC [id number] 13:21:00 Test Item Value Reference Range Interpretation Comments SODIUM (BEAKER) 147 meq/L 136-145 H (test code = 381) POTASSIUM (BEAKER) 3.8 meq/L 3.5-5.1 Specimen slightly (test code = 379) hemolyzed CHLORIDE (BEAKER) 115 meq/L 98-107 H (test code = 382) CO2 (BEAKER) (test 26 meq/L 22-29 code = 355) BLOOD UREA NITROGEN 55 mg/dL 7-21 H (BEAKER) (test code = 354) CREATININE (BEAKER) 1.48 mg/dL 0.57-1.25 H Specimen slightly (test code = 358) hemolyzed GLUCOSE RANDOM 178 mg/dL 70-105 H (BEAKER) (test code = 652) CALCIUM (BEAKER) 9.0 mg/dL 8.4-10.2 (test code = 697) EGFR (BEAKER) (test 46 mL/min/1.73 ESTIMA NINA GFR IS code = 1092) sq m NOT ACCURATE CREATININE CLEARANCE IN PREDICTING GLOMERULAR FILTRATION RATE . ESTIMATED GFR I S NOT APPLICABLE FOR DIALYSIS PATIEN TS. Choir Singer ID - KARL MBLOOD [id number] 13:07:00 Test Item Value Reference Range Interpretation Comments CULTURE A From Aerobic An d (BEAKER) (test Anaerobic Bot tles Same code = 1095) organism has be en isolated from cultures(s) of the same body site within 3 days. Repeat identification and susceptibility testing performed only after consultation wi the clinical microb iology laboratory.Refe r to previous cultur e of* - Staphylococcus lugdunensis GRAM STAIN From aerobic and RESULT (BEAKER) anaerobic (test code = bottles: gram 1123) positive cocci in clusters Previously reported organism is no longer reported. Please contact the Microbiology Department for additional information.CBC W/PLT COUNT & AUTO [id number] 11:03:00 Test Item Value Reference Range Interpretation Comments WHITE BLOOD CELL COUNT (BEAKER) 12.0 K/ L 3.5-10.5 H (test code = 775) RED BLOOD CELL COUNT (BEAKER) 2.70 M/ L 4.63-6.08 L (test code = 761) HEMOGLOBIN (BEAKER) (test code = 8.0 GM/DL 13.7-17.5 L 410) HEMATOCRIT (BEAKER) (test code = 25.2 % 40.1-51.0 L 411) MEAN CORPUSCULAR VOLUME (BEAKER) 93.3 fL 79.0-92.2 H (test code = 753) MEAN CORPUSCULAR HEMOGLOBIN 29.6 pg 25.7-32.2 (BEAKER) (test code = 751) MEAN CORPUSCULAR HEMOGLOBIN CONC 31.7 GM/DL 32.3-36.5 L (BEAKER) (test code = 752) RED CELL DISTRIBUTION WIDTH 16.7 % 11.6-14.4 H (BEAKER) (test code = 412) PLATELET COUNT (BEAKER) (test 313 K/CU MM 150-450 code = 756) MEAN PLATELET VOLUME (BEAKER) 10.9 fL 9.4-12.4 (test code = 754) NUCLEATED RED BLOOD CELLS 0 /100 WBC 0-0 (BEAKER) (test code = 413) NEUTROPHILS RELATIVE PERCENT 80 % (BEAKER) (test code = 429) LYMPHOCYTES RELATIVE PERCENT 16 % (BEAKER) (test code = 430) MONOCYTES RELATIVE PERCENT 4 % (BEAKER) (test code = 431) EOSINOPHILS RELATIVE PERCENT 0 % (BEAKER) (test code = 432) BASOPHILS RELATIVE PERCENT 0 % (BEAKER) (test code = 437) NEUTROPHILS ABSOLUTE COUNT 9.58 K/ L 1.78-5.38 H (BEAKER) (test code = 670) LYMPHOCYTES ABSOLUTE COUNT 1.86 K/ L 1.32-3.57 (BEAKER) (test code = 414) MONOCYTES ABSOLUTE COUNT (BEAKER) 0.42 K/ L 0.30-0.82 (test code = 415) EOSINOPHILS ABSOLUTE COUNT 0.02 K/ L 0.04-0.54 L (BEAKER) (test code = 416) BASOPHILS ABSOLUTE COUNT (BEAKER) 0.01 K/ L 0.01-0.08 (test code = 417) IMMATURE GRANULOCYTES-RELATIVE 1 % 0-1 PERCENT (BEAKER) (test code = 2801) [id number] 11:03:00 Test Item Value Reference Range Interpretation Comments PARTIAL THROMBOPLASTIN TIME 147.2 seconds 22.5-36.0 H (BEAKER) (test code = 760) URINALYSIS W/ REFLEX URINE [id number] 10:00:00 Test Item Value Reference Range Interpretation Comments COLOR (BEAKER) (test code = 470) Yellow CLARITY (BEAKER) (test code = 469) Clear SPECIFIC GRAVITY UA (BEAKER) (test 1.024 1.001-1.035 code = 468) PH UA (BEAKER) (test code = 467) 5.5 5.0-8.0 PROTEIN UA (BEAKER) (test code = 20 mg/dL Negative A 464) GLUCOSE UA (BEAKER) (test code = Negative Negative 365) KETONES UA (BEAKER) (test code = Negative Negative 371) BILIRUBIN UA (BEAKER) (test code = Negative Negative 462) BLOOD UA (BEAKER) (test code = Trace Negative A 461) NITRITE UA (BEAKER) (test code = Negative Negative 465) LEUKOCYTE ESTERASE UA (BEAKER) Negative Negative (test code = 466) UROBILINOGEN UA (BEAKER) (test 4.0 mg/dL 0.2-1.0 H code = 463) RBC UA (BEAKER) (test code = 519) 5 /HPF WBC UA (BEAKER) (test code = 520) 2 /HPF BACTERIA (BEAKER) (test code = Occasional 517) MUCUS (BEAKER) (test code = 1574) Occasional HYALINE CASTS (BEAKER) (test code 1 /LPF = 514) SOURCE(BEAKER) (test code = 2795) Choir Singer ID - [auto]Choir Singer ID - techPOCT-GLUCOSE [id number] 09:32:00 Test Item Value Reference Range Interpretation Comments POC-GLUCOSE METER 181 mg/dL 70-110 H : TESTED A T [facility] 6720 (BEAKER) (test code = [place], 1538) [id number]: Choir Singer/Techni lars ID = [id number] for Co bb [employer] POCT-GLUCOSE [id number] 09:27:00 Test Item Value Reference Range Interpretation Comments POC-GLUCOSE METER 151 mg/dL 70-110 H : TESTED A T [facility] 6720 (BEAKER) (test code = [place], 1538) [id number]: Choir Singer/Techni lars ID = [id number] for LAMIN POSADA BLOOD GAS, [id number] 05:53:00 Test Item Value Reference Range Interpretation Comments PH ARTERIAL (BEAKER) (test code = 7.49 7.35-7.45 H 383) PCO2 ARTERIAL (BEAKER) (test code 35 mmHg 35-45 = 384) PO2 ARTERIAL (BEAKER) (test code = 142 mmHg 80-90 H 385) O2 SATURATION ARTERIAL (BEAKER) 99.0 % 96.0-97.0 H (test code = 386) HCO3 ARTERIAL (BEAKER) (test code 26 mmol/L 21-29 = 388) BASE EXCESS ARTERIAL (BEAKER) 2.7 mmol/L -2.0-3.0 (test code = 387) PATIENT TEMPERATURE (BEAKER) (test 37.0 C code = 1818) FIO2 (BEAKER) (test code = 1819) 45.0 % [id number] 03:27:00 Test Item Value Reference Range Interpretation Comments PARTIAL THROMBOPLASTIN TIME 119.7 seconds 22.5-36.0 H (BEAKER) (test code = 760) [id number] 03:01:00 Test Item Value Reference Range Interpretation Comments MAGNESIUM (BEAKER) (test code = 2.4 mg/dL 1.6-2.6 627) Choir Singer ID - PIAYA LBASIC METABOLIC [id number] 03:01:00 Test Item Value Reference Range Interpretation Comments SODIUM (BEAKER) 146 meq/L 136-145 H (test code = 381) POTASSIUM (BEAKER) 3.4 meq/L 3.5-5.1 L (test code = 379) CHLORIDE (BEAKER) 113 meq/L 98-107 H (test code = 382) CO2 (BEAKER) (test 24 meq/L 22-29 code = 355) BLOOD UREA NITROGEN 54 mg/dL 7-21 H (BEAKER) (test code = 354) CREATININE (BEAKER) 1.42 mg/dL 0.57-1.25 H (test code = 358) GLUCOSE RANDOM 249 mg/dL 70-105 H (BEAKER) (test code = 652) CALCIUM (BEAKER) 8.7 mg/dL 8.4-10.2 (test code = 697) EGFR (BEAKER) (test 48 mL/min/1.73 ESTIMA NINA GFR IS code = 1092) sq m NOT ACCURATE CREATININE CLEARANCE IN PREDICTING GLOMERULAR FILTRATION RATE . ESTIMATED GFR I S NOT APPLICABLE FOR DIALYSIS PATIEN TS. Choir Singer ID - PIAYA LCBC W/PLT COUNT & AUTO [id number] 02:53:00 Test Item Value Reference Range Interpretation Comments WHITE BLOOD CELL COUNT (BEAKER) 11.7 K/ L 3.5-10.5 H (test code = 775) RED BLOOD CELL COUNT (BEAKER) 2.36 M/ L 4.63-6.08 L (test code = 761) HEMOGLOBIN (BEAKER) (test code = 6.8 GM/DL 13.7-17.5 L 410) HEMATOCRIT (BEAKER) (test code = 22.4 % 40.1-51.0 L 411) MEAN CORPUSCULAR VOLUME (BEAKER) 94.9 fL 79.0-92.2 H (test code = 753) MEAN CORPUSCULAR HEMOGLOBIN 28.8 pg 25.7-32.2 (BEAKER) (test code = 751) MEAN CORPUSCULAR HEMOGLOBIN CONC 30.4 GM/DL 32.3-36.5 L (BEAKER) (test code = 752) RED CELL DISTRIBUTION WIDTH 16.6 % 11.6-14.4 H (BEAKER) (test code = 412) PLATELET COUNT (BEAKER) (test 311 K/CU MM 150-450 code = 756) MEAN PLATELET VOLUME (BEAKER) 11.0 fL 9.4-12.4 (test code = 754) NUCLEATED RED BLOOD CELLS 0 /100 WBC 0-0 (BEAKER) (test code = 413) NEUTROPHILS RELATIVE PERCENT 81 % (BEAKER) (test code = 429) LYMPHOCYTES RELATIVE PERCENT 14 % (BEAKER) (test code = 430) MONOCYTES RELATIVE PERCENT 4 % (BEAKER) (test code = 431) EOSINOPHILS RELATIVE PERCENT 0 % (BEAKER) (test code = 432) BASOPHILS RELATIVE PERCENT 0 % (BEAKER) (test code = 437) NEUTROPHILS ABSOLUTE COUNT 9.45 K/ L 1.78-5.38 H (BEAKER) (test code = 670) LYMPHOCYTES ABSOLUTE COUNT 1.65 K/ L 1.32-3.57 (BEAKER) (test code = 414) MONOCYTES ABSOLUTE COUNT (BEAKER) 0.46 K/ L 0.30-0.82 (test code = 415) EOSINOPHILS ABSOLUTE COUNT 0.00 K/ L 0.04-0.54 L (BEAKER) (test code = 416) BASOPHILS ABSOLUTE COUNT (BEAKER) 0.01 K/ L 0.01-0.08 (test code = 417) IMMATURE GRANULOCYTES-RELATIVE 1 % 0-1 PERCENT (BEAKER) (test code = 2801) BLOOD GAS, [id number] 02:45:00 Test Item Value Reference Range Interpretation Comments PH ARTERIAL (BEAKER) (test code = 7.46 7.35-7.45 H 383) PCO2 ARTERIAL (BEAKER) (test code 39 mmHg 35-45 = 384) PO2 ARTERIAL (BEAKER) (test code = 220 mmHg 80-90 H 385) O2 SATURATION ARTERIAL (BEAKER) 99.5 % 96.0-97.0 H (test code = 386) HCO3 ARTERIAL (BEAKER) (test code 27 mmol/L 21-29 = 388) BASE EXCESS ARTERIAL (BEAKER) 3.1 mmol/L -2.0-3.0 H (test code = 387) PATIENT TEMPERATURE (BEAKER) (test 37.5 C code = 1818) FIO2 (BEAKER) (test code = 1819) 60.0 % RAD, CHEST, 1 VIEW, NON [id number] 02:01:00Reason for exam:->sobShould this be performed at [...] Henley Verified Date/Time: 12/23/2019 02:01:11 BLOOD GAS, [id number] 01:19:00 Test Item Value Reference Range Interpretation Comments PH ARTERIAL (BEAKER) (test code = 7.63 7.35-7.45 HH 383) PCO2 ARTERIAL (BEAKER) (test code 25 mmHg 35-45 L = 384) PO2 ARTERIAL (BEAKER) (test code = 84 mmHg 80-90 385) O2 SATURATION ARTERIAL (BEAKER) 97.8 % 96.0-97.0 H (test code = 386) HCO3 ARTERIAL (BEAKER) (test code 25 mmol/L 21-29 = 388) BASE EXCESS ARTERIAL (BEAKER) 4.0 mmol/L -2.0-3.0 H (test code = 387) PATIENT TEMPERATURE (BEAKER) (test 37.5 C code = 1818) FIO2 (BEAKER) (test code = 1819) 21.0 % POCT-GLUCOSE [id number] 23:42:00 Test Item Value Reference Range Interpretation Comments POC-GLUCOSE METER 135 mg/dL 70-110 H : TESTED A T [facility] 6720 (BEAKER) (test code = [facility], 1538) [id number]: Choir Singer/Techni lars ID = [id number] for Co bb, [employer] [id number] 18:51:00 Test Item Value Reference Range Interpretation Comments POTASSIUM (BEAKER) 4.1 meq/L 3.5-5.1 Specimen slightly (test code = 379) hemolyzed Choir Singer ID - [id number] 18:44:00 Test Item Value Reference Range Interpretation Comments PARTIAL THROMBOPLASTIN TIME 50.0 seconds 22.5-36.0 H (BEAKER) (test code = 760) POCT-GLUCOSE [id number] 18:32:00 Test Item Value Reference Range Interpretation Comments POC-GLUCOSE METER 147 mg/dL 70-110 H : TESTED A T [facility] 6720 (BEAKER) (test code = [facility], 1538) [address]: Choir Singer/Techni lars ID = [id number] for PE BECKI, CRISTIN RAD, ABDOMEN/KUB, 1 VIEW [id number] 16:39:00Reason for exam:->tube placementShould this be performed at the bedside?->YesFINAL REPORT Abdomen date 12/22/2019 Comment: Frontal view of the abdomen demo nstrates a nasogastric tube present with tip noted in the body of the stomach. Signed: Edilberto Gregory MDReport Verified Date/Time: 12/22/2019 16:39:35 Reading Location: [address] Consult Reading Room POCT-GLUCOSE [id number] 12:48:00 Test Item Value Reference Range Interpretation Comments POC-GLUCOSE METER 141 mg/dL 70-110 H : TESTED A T [facility] 6720 (BEAKER) (test code = [place], 1538) [address]: Choir Singer/Techni lars ID = [id number] for AG CAROL ANN LOPEZ [id number] 12:34:00 Test Item Value Reference Range Interpretation Comments MAGNESIUM (BEAKER) 2.3 mg/dL 1.6-2.6 Specimen slightly (test code = 627) hemolyzed Choir Singer ID - [id number] 12:34:00 Test Item Value Reference Range Interpretation Comments POTASSIUM (BEAKER) 3.6 meq/L 3.5-5.1 Specimen slightly (test code = 379) hemolyzed Choir Singer ID - [id number] 12:24:00 Test Item Value Reference Range Interpretation Comments PARTIAL THROMBOPLASTIN TIME 45.8 seconds 22.5-36.0 H (BEAKER) (test code = 760) B-TYPE NATRIURETIC FACTOR (BNP)2019-12-22 10:25:00 Test Item Value Reference Range Interpretation Comments B-TYPE NATRIURETIC PEPTIDE (BEAKER) 632 pg/mL 0-100 H (test code = 700) Choir Singer ID - DBBLOOD GAS, [id number] 10:04:00 Test Item Value Reference Range Interpretation Comments PH ARTERIAL (BEAKER) (test code = 7.51 7.35-7.45 H 383) PCO2 ARTERIAL (BEAKER) (test code 37 mmHg 35-45 = 384) PO2 ARTERIAL (BEAKER) (test code = 152 mmHg 80-90 H 385) O2 SATURATION ARTERIAL (BEAKER) 99.1 % 96.0-97.0 H (test code = 386) HCO3 ARTERIAL (BEAKER) (test code 29 mmol/L 21-29 = 388) BASE EXCESS ARTERIAL (BEAKER) 5.2 mmol/L -2.0-3.0 H (test code = 387) PATIENT TEMPERATURE (BEAKER) (test 37.0 C code = 1818) FIO2 (BEAKER) (test code = 1819) 30.0 % BLOOD [id number] 10:03:00 Test Item Value Reference Range Interpretation Comments CULTURE (BEAKER) Positive; see A (test code = 1095) gram stain results. Clindamycin (test R code = 10) Erythromycin (test R code = 4) Levofloxacin (test S code = 22) Linezolid (test code S = 40) Nitrofurantoin (test S code = 23) Oxacillin (test code R = 14) Rifampin (test code S = 43) Tetracycline (test R code = 2) Trimethoprim + S Sulfamethoxazole (test code = 47) Vancomycin (test S code = 13) Ceftaroline (test code = 236) Daptomycin (test Susceptible 0-1 , S code = 59) No Interpretations Established <0 or >1 CULTURE (BEAKER) A From Aerobi c And (test code = 1095) Anaerobic Bottles Staphylococcus lugdunensis GRAM STAIN RESULT From aerobic (BEAKER) (test code and anaerobic = 1123) bottles: gram positive cocci in clusters BLOOD CULTURE IDENTIFICATION [id number] 10:00:00 Test Item Value Reference Interpretation Comments Range LISTERIA MONOCYTOGENES Not detected Not detected (test code = 20160729) STAPHYLOCOCCUS (test Detected Not detected A Coagula se negative code = 20161001) Staph specie s (CoNS)- methici llin susceptibleFirs t-seble e therapy: Cefa zolin or Oxacillin (Oxacillin pref erred if CLOTH MERC[employer]IZING SUPERVISOR involvem ent) MecA NOT DETECTEDPossibl e contamination. The likelihood of pathogenicity i s increased if th e organism is obs erved in multiple blo od cultures obtain ed from separate venipunctures.R efere nce Range: Not Detected STAPHYLOCOCCUS AUREUS Not detected Not detected (test code = 20161002) STREPTOCOCCUS (test Not detected Not detected code = 20161003) STREPTOCOCCUS Not detected Not detected AGALACTIAE (GROUP B) (test code = 1236782) STREPTOCOCCUS Not detected Not detected PNEUMONIAE (test code = 3738561) STREPTOCOCCUS PYOGENES Not detected Not detected (GROUP A) (test code = 1095971) ACINETOBACTER BAUMANNII Not detected Not detected (test code = 6827505) HAEMOPHILUS INFLUENZAE Not detected Not detected (test code = 8827588) NEISSERIA MENINGITIDIS Not detected Not detected (test code = 6375355) ENTEROBACTERIACEAE (test code = 0236227) ENTEROBACTER CLOACOE Not detected Not detected COMPLEX (test code = 3451362) KLEBSIELLA OXYTOCA Not detected Not detected (test code = 7072728) KLEBSIELLA PNEUMONIAE Not detected Not detected (test code = 1650) PROTEUS (test code = 8022300) SERRATIA MARCESCENS Not detected Not detected (test code = 2067615) JAMAL ALBICANS (test Not detected Not detected code = 5690587) JAMAL GLABRATA (test Not detected Not detected code = 6889242) JAMAL KRUSEI (test Not detected Not detected code = 6227464) JAMAL PARAPSILOSIS Not detected Not detected (test code = 5379894) JAMAL TROPICALIS Not detected Not detected (test code = 7421541) ESCHERICHIA COLI (test Not detected Not detected code = 3571040) METHICILLIN-RESISTANCE Not detected Not detected GENE (test code = 1025824) VANCOMYCIN-RESISTANCE GENE (test code = 3188390) CARBAPENEM-RESISTANCE GENE (test code = 0512110) ENTEROCOCCUS-BEAKER Not detected Not detected (test code = 5164377) PSEUDOMONAS Not detected Not detected AERUGINOSA-BEAKER (test code = 5631424) Other bacteria and resistance markers not targeted by this PCR panel cannot be excluded; therefore clinical correlation and follow up of serology, culture results, and other molecular studies is required. The results are not intended to be used as the sole means for clinical diagnosis or patient management decisions. This sample was tested at the [facility] using the [employer] Blood Culture ID Panel. It is FDA cleared and has been verified and approved by the [facility] for clinical use. This laboratory is CLIA-certified and College ofAmerican Pathologists (CAP)-accredited to perform high complexity testing.BLOOD CULTURE 2019-12-22 09:58:00 Test Item Value Reference Range Interpretation Comments CULTURE A From Aerobic An d (BEAKER) (test Anaerobic Bot tles Same code = 1095) organism has be en isolated from cultures(s) of the same body site and collection date . Repeat identifi cation and susceptibil ity testing perform ed only after consultat ion with the [facility].Refe r to previous cultur e of* - Staphylococcus lugdunensis GRAM STAIN From aerobic and RESULT (BEAKER) anaerobic (test code = bottles: gram 1123) positive cocci in clusters RAD, CHEST, 1 VIEW, NON [id number] 08:26:00Reason for exam:->sobShould this be performed at the bedside?->YesFINAL REPORT RAD, CHEST, 1 VIEW, NON DEPT INDICATION: sob COMPARISON: Prior day's exam FINDINGS: Portable frontal view of the chest. IMPRESSION: Support Lines: Stable. Lungs and pleura: Unchanged airspace opacities. No pneumothorax.Heart and mediastinum: Stable contours. Stable pacer apparatus.Additional findings: None. Signed: JR Leblanc Robert MDReport Verified Date/Time: 12/22/2019 08:26:26 Reading Location: [facility] Radiology Reading Room APTT 2019-12-22 08:18:00 Test Item Value Reference Range Interpretation Comments PARTIAL THROMBOPLASTIN TIME 102.7 seconds 22.5-36.0 H (BEAKER) (test code = 760) HEMOGLOBIN AND [id number] 08:01:00 Test Item Value Reference Range Interpretation Comments HEMOGLOBIN (BEAKER) (test code = 7.8 GM/DL 13.7-17.5 L 410) HEMATOCRIT (BEAKER) (test code = 24.5 % 40.1-51.0 L 411) Choir Singer ID - [id number] 06:31:00 Test Item Value Reference Range Interpretation Comments PARTIAL THROMBOPLASTIN TIME 95.3 seconds 22.5-36.0 H (BEAKER) (test code = 760) POCT-GLUCOSE [id number] 06:22:00 Test Item Value Reference Range Interpretation Comments POC-GLUCOSE METER 144 mg/dL 70-110 H : TESTED A T [facility] 6720 (BEAKER) (test code = [place], 1538) [address]: Choir Singer/Techni lars ID = [id number] for Co bb, [employer] [id number] 06:06:00 Test Item Value Reference Range Interpretation Comments MAGNESIUM (BEAKER) 2.2 mg/dL 1.6-2.6 Specimen slightly (test code = 627) hemolyzed Choir Singer ID - ADAMARIS MBASIC METABOLIC [id number] 06:06:00 Test Item Value Reference Range Interpretation Comments SODIUM (BEAKER) 146 meq/L 136-145 H (test code = 381) POTASSIUM (BEAKER) 3.6 meq/L 3.5-5.1 Specimen slightly (test code = 379) hemolyzed CHLORIDE (BEAKER) 113 meq/L 98-107 H (test code = 382) CO2 (BEAKER) (test 24 meq/L 22-29 code = 355) BLOOD UREA NITROGEN 43 mg/dL 7-21 H (BEAKER) (test code = 354) CREATININE (BEAKER) 1.23 mg/dL 0.57-1.25 Specimen slightly (test code = 358) hemolyzed GLUCOSE RANDOM 150 mg/dL 70-105 H (BEAKER) (test code = 652) CALCIUM (BEAKER) 9.3 mg/dL 8.4-10.2 (test code = 697) EGFR (BEAKER) (test 57 mL/min/1.73 ESTIMA NINA GFR IS code = 1092) sq m NOT ACCURATE CREATININE CLEARANCE IN PREDICTING GLOMERULAR FILTRATION RATE . ESTIMATED GFR I S NOT APPLICABLE FOR DIALYSIS PATIEN TS. Choir Singer ID - ADAMARIS MCBC W/PLT COUNT & AUTO [id number] 04:09:00 Test Item Value Reference Range Interpretation Comments WHITE BLOOD CELL COUNT (BEAKER) 13.4 K/ L 3.5-10.5 H (test code = 775) RED BLOOD CELL COUNT (BEAKER) 2.46 M/ L 4.63-6.08 L (test code = 761) HEMOGLOBIN (BEAKER) (test code = 7.1 GM/DL 13.7-17.5 L 410) HEMATOCRIT (BEAKER) (test code = 22.9 % 40.1-51.0 L 411) MEAN CORPUSCULAR VOLUME (BEAKER) 93.1 fL 79.0-92.2 H (test code = 753) MEAN CORPUSCULAR HEMOGLOBIN 28.9 pg 25.7-32.2 (BEAKER) (test code = 751) MEAN CORPUSCULAR HEMOGLOBIN CONC 31.0 GM/DL 32.3-36.5 L (BEAKER) (test code = 752) RED CELL DISTRIBUTION WIDTH 17.0 % 11.6-14.4 H (BEAKER) (test code = 412) PLATELET COUNT (BEAKER) (test 375 K/CU MM 150-450 code = 756) MEAN PLATELET VOLUME (BEAKER) 11.4 fL 9.4-12.4 (test code = 754) NUCLEATED RED BLOOD CELLS 0 /100 WBC 0-0 (BEAKER) (test code = 413) NEUTROPHILS RELATIVE PERCENT 80 % (BEAKER) (test code = 429) LYMPHOCYTES RELATIVE PERCENT 15 % (BEAKER) (test code = 430) MONOCYTES RELATIVE PERCENT 4 % (BEAKER) (test code = 431) EOSINOPHILS RELATIVE PERCENT 0 % (BEAKER) (test code = 432) BASOPHILS RELATIVE PERCENT 0 % (BEAKER) (test code = 437) NEUTROPHILS ABSOLUTE COUNT 10.64 K/ L 1.78-5.38 H (BEAKER) (test code = 670) LYMPHOCYTES ABSOLUTE COUNT 1.94 K/ L 1.32-3.57 (BEAKER) (test code = 414) MONOCYTES ABSOLUTE COUNT (BEAKER) 0.55 K/ L 0.30-0.82 (test code = 415) EOSINOPHILS ABSOLUTE COUNT 0.02 K/ L 0.04-0.54 L (BEAKER) (test code = 416) BASOPHILS ABSOLUTE COUNT (BEAKER) 0.02 K/ L 0.01-0.08 (test code = 417) IMMATURE GRANULOCYTES-RELATIVE 2 % 0-1 H PERCENT (BEAKER) (test code = 2801) POCT-GLUCOSE [id number] 00:13:00 Test Item Value Reference Range Interpretation Comments POC-GLUCOSE METER 122 mg/dL 70-110 H : [facility] (BEAKER) (test code = [place], 1538) [address]: Choir Singer/Techni lars ID = [id number] for Co [employer] carson [id number] 23:33:00 Test Item Value Reference Range Interpretation Comments PARTIAL THROMBOPLASTIN TIME 68.4 seconds 22.5-36.0 H (BEAKER) (test code = 760) U/S, [id number] 19:46:00Laterality?->LeftReason for exam:- >Diagnostic samplingLabs to be Ordered:->Body Fluid Culture (w/Gram Stain, C\T\S)Body fluid cell countLabs to be Ordered:->Glucose+LDH+ProteinLabs to be Ordered:->Other (please add comment)Labs to be Ordered:->Fungal Culture FINAL REPORT Exam: Ultrasound guided thoracentesis Clinical History: Left-sided Pleural Effusion Long Term Care Phlebotomist: Cassidy Parra PA-C Supervising Physician: Luis Miguel [...] MDReport Verified Date/Time: 12/21/2019 19:46:02 Reading Location: [address] Ultrasound Reading Room BODY FLUID CELL COUNT WITH [id number] 19:01:00 Test Item Value Reference Range Interpretation Comments APPEARANCE FLUID (BEAKER) Bloody Clear A (test code = 510) COLOR FLUID (BEAKER) (test Red Colorless, Straw A code = 511) RBC FLUID (BEAKER) (test code 238137 /cu mm <=1 H = 513) ADJUSTED WBC FLUID (BEAKER) 799 /cu mm <=5 H (test code = 1691) LINING CELLS (BEAKER) (test 16 /cu mm <=1 H code = 1590) NEUTROPHILS FLUID (BEAKER) 34 % (test code = 1656) LYMPHS FLUID (BEAKER) (test 50 % code = 488) MONO/MACROPHAGE FLUID (BEAKER) 16 % (test code = 489) EOSINOPHILS FLUID (BEAKER) 0 % (test code = 491) BASO FLUID (BEAKER) (test code 0 % = 492) CONTAINER BODY FLUID (BEAKER) EDTA Tube (test code = 2873) [id number] 17:13:00 Test Item Value Reference Range Interpretation Comments PROTIME (BEAKER) (test code = 16.5 seconds 11.9-14.2 H 759) INR (BEAKER) (test code = 370) 1.4 <=5.9 PARTIAL THROMBOPLASTIN TIME 30.3 seconds 22.5-36.0 (BEAKER) (test code = 760) Effective 03/24/2019: PT Reference Range ChangeNew: 11.9-14.2 Previous: 11.7- 14.7RECOMMENDED COUMADIN/WARFARIN INR THERAPY RANGESSTANDARD DOSE: 2.0-3.0 Includes: PROPHYLAXIS for venous thrombosis, systemic embolization; TREATMENT for venous thrombosis and/or pulmonary embolus.HIGH RISK: Target INR is2.5-3.5 for patients wiht mechanical heart valves.RAD, CHEST, 1 VIEW, NON [id number] 16:16:00Reason for exam:->post left sided thoracentesisShould this [...] region of the right ventricle. Signed: Radha Marie MDReport Verified Date/Time: 12/21/2019 16:16:44 Reading Location: [facility] Radiology Reading Room ANAEROBIC [id number] 16:14:00 Test Item Value Reference Range Interpretation Comments CULTURE (BEAKER) (test No anaerobes isolated code = 1095) PROTHROMBIN [id number] 12:46:00 Test Item Value Reference Range Interpretation Comments PROTIME (BEAKER) (test code = 16.3 seconds 11.9-14.2 H 759) INR (BEAKER) (test code = 370) 1.3 <=5.9 Effective 03/24/2019: PT Reference Range ChangeNew: 11.9-14.2 Previous: 11.7- 14.7RECOMMENDED COUMADIN/WARFARIN INR THERAPY RANGESSTANDARD DOSE: 2.0-3.0 Includes: PROPHYLAXIS for venous thrombosis, systemic embolization; TREATMENT for venous thrombosis and/or pulmonary embolus.HIGH RISK: Target INR is2.5-3.5 for patients wiht mechanical heart valves.POCT-GLUCOSE [id number] 12:38:00 Test Item Value Reference Range Interpretation Comments POC-GLUCOSE METER 138 mg/dL 70-110 H : TESTED A T [facility] 6720 (BEAKER) (test code = [address] [facility], 1538) [id number]: Choir Singer/Techni lars ID = [id number] for MIKEY CHAPMANDONDiamond CAROL ANN PT/[id number] 11:10:00 Test Item Value Reference Range Interpretation Comments PROTIME (BEAKER) (test code = 16.2 seconds 11.9-14.2 H 759) INR (BEAKER) (test code = 370) 1.3 <=5.9 PARTIAL THROMBOPLASTIN TIME 69.0 seconds 22.5-36.0 H (BEAKER) (test code = 760) Effective 03/24/2019: PT Reference Range ChangeNew: 11.9-14.2 Previous: 11.7- 14.7RECOMMENDED COUMADIN/WARFARIN INR THERAPY RANGESSTANDARD DOSE: 2.0-3.0 Includes: PROPHYLAXIS for venous thrombosis, systemic embolization; TREATMENT for venous thrombosis and/or pulmonary embolus.HIGH RISK: Target INR is2.5-3.5 for patients wiht mechanical heart valves.SURGICALLY OBTAINED CULTURE + GRAM [id number] 08:57:00 Test Item Value Reference Interpretation Comments Range CULTURE (BEAKER) STAPHYLOCOCCUS A 1+ Staphy lococcus (test code = 1095) GWENDOLYN nagel is Clindamycin (test R code = 10) Erythromycin (test R code = 4) Levofloxacin (test S code = 22) Linezolid (test code S = 40) Nitrofurantoin (test S code = 23) Oxacillin (test code S = 14) Rifampin (test code = S 43) Tetracycline (test R code = 2) Trimethoprim + S Sulfamethoxazole (test code = 47) Vancomycin (test code S = 13) GRAM STAIN RESULT <1+ WBCs (BEAKER) (test code = 1123) GRAM STAIN RESULT <1+ gram positive (BEAKER) (test code = cocci in pairs and [id number]) clusters CREATINE KINASE (CK)2019-12-21 05:56:00 Test Item Value Reference Range Interpretation Comments CREATINE KINASE TOTAL (BEAKER) (test 18 U/L 29-200 L code = 380) Choir Singer ID - ADAMARIS [id number] 05:43:00 Test Item Value Reference Range Interpretation Comments MAGNESIUM (BEAKER) 2.3 mg/dL 1.6-2.6 Specimen slightly (test code = 627) hemolyzed Choir Singer ID - ADAMARIS MBASIC METABOLIC [id number] 05:43:00 Test Item Value Reference Range Interpretation Comments SODIUM (BEAKER) 146 meq/L 136-145 H (test code = 381) POTASSIUM (BEAKER) 3.8 meq/L 3.5-5.1 Specimen slightly (test code = 379) hemolyzed CHLORIDE (BEAKER) 113 meq/L 98-107 H (test code = 382) CO2 (BEAKER) (test 26 meq/L 22-29 code = 355) BLOOD UREA NITROGEN 42 mg/dL 7-21 H (BEAKER) (test code = 354) CREATININE (BEAKER) 1.15 mg/dL 0.57-1.25 Specimen slightly (test code = 358) hemolyzed GLUCOSE RANDOM 142 mg/dL 70-105 H (BEAKER) (test code = 652) CALCIUM (BEAKER) 9.2 mg/dL 8.4-10.2 (test code = 697) EGFR (BEAKER) (test 62 mL/min/1.73 ESTIMA NINA GFR IS code = 1092) sq m NOT ACCURATE CREATININE CLEARANCE IN PREDICTING GLOMERULAR FILTRATION RATE . ESTIMATED GFR I S NOT APPLICABLE FOR DIALYSIS PATIEN TS. Choir Singer ID - ADAMARIS [facility] W/PLT COUNT & AUTO [id number] 05:17:00 Test Item Value Reference Range Interpretation Comments WHITE BLOOD CELL COUNT (BEAKER) 15.4 K/ L 3.5-10.5 H (test code = 775) RED BLOOD CELL COUNT (BEAKER) 2.78 M/ L 4.63-6.08 L (test code = 761) HEMOGLOBIN (BEAKER) (test code = 8.1 GM/DL 13.7-17.5 L 410) HEMATOCRIT (BEAKER) (test code = 26.0 % 40.1-51.0 L 411) MEAN CORPUSCULAR VOLUME (BEAKER) 93.5 fL 79.0-92.2 H (test code = 753) MEAN CORPUSCULAR HEMOGLOBIN 29.1 pg 25.7-32.2 (BEAKER) (test code = 751) MEAN CORPUSCULAR HEMOGLOBIN CONC 31.2 GM/DL 32.3-36.5 L (BEAKER) (test code = 752) RED CELL DISTRIBUTION WIDTH 16.3 % 11.6-14.4 H (BEAKER) (test code = 412) PLATELET COUNT (BEAKER) (test 372 K/CU MM 150-450 code = 756) MEAN PLATELET VOLUME (BEAKER) 10.7 fL 9.4-12.4 (test code = 754) NUCLEATED RED BLOOD CELLS 0 /100 WBC 0-0 (BEAKER) (test code = 413) NEUTROPHILS RELATIVE PERCENT 80 % (BEAKER) (test code = 429) LYMPHOCYTES RELATIVE PERCENT 13 % (BEAKER) (test code = 430) MONOCYTES RELATIVE PERCENT 4 % (BEAKER) (test code = 431) EOSINOPHILS RELATIVE PERCENT 1 % (BEAKER) (test code = 432) BASOPHILS RELATIVE PERCENT 0 % (BEAKER) (test code = 437) NEUTROPHILS ABSOLUTE COUNT 12.33 K/ L 1.78-5.38 H (BEAKER) (test code = 670) LYMPHOCYTES ABSOLUTE COUNT 1.94 K/ L 1.32-3.57 (BEAKER) (test code = 414) MONOCYTES ABSOLUTE COUNT (BEAKER) 0.67 K/ L 0.30-0.82 (test code = 415) EOSINOPHILS ABSOLUTE COUNT 0.08 K/ L 0.04-0.54 (BEAKER) (test code = 416) BASOPHILS ABSOLUTE COUNT (BEAKER) 0.02 K/ L 0.01-0.08 (test code = 417) IMMATURE GRANULOCYTES-RELATIVE 2 % 0-1 H PERCENT (BEAKER) (test code = 2801) [id number] 05:16:00 Test Item Value Reference Range Interpretation Comments PARTIAL THROMBOPLASTIN TIME 63.0 seconds 22.5-36.0 H (BEAKER) (test code = 760) POCT-GLUCOSE [id number] 23:39:00 Test Item Value Reference Range Interpretation Comments POC-GLUCOSE METER 162 mg/dL 70-110 H : TESTED A T [facility] 6720 (BEAKER) (test code = [facility], 1538) [id number]: Choir Singer/Techni lars ID = [id number] for MICHELLE MATHIS BLOOD GAS, [id number] 21:17:00 Test Item Value Reference Range Interpretation Comments PH ARTERIAL (BEAKER) (test code = 7.58 7.35-7.45 H 383) PCO2 ARTERIAL (BEAKER) (test code 29 mmHg 35-45 L = 384) PO2 ARTERIAL (BEAKER) (test code = 94 mmHg 80-90 H 385) O2 SATURATION ARTERIAL (BEAKER) 98.2 % 96.0-97.0 H (test code = 386) HCO3 ARTERIAL (BEAKER) (test code 27 mmol/L 21-29 = 388) BASE EXCESS ARTERIAL (BEAKER) 5.0 mmol/L -2.0-3.0 H (test code = 387) PATIENT TEMPERATURE (BEAKER) (test 36.7 C code = 1818) FIO2 (BEAKER) (test code = 1819) 21.0 % POCT-GLUCOSE [id number] 18:36:00 Test Item Value Reference Range Interpretation Comments POC-GLUCOSE METER 149 mg/dL 70-110 H : TESTED A T [facility] 6720 (BEAKER) (test code = [facility], 1538) [id number]: Choir Singer/Techni lars ID = [id number] for CAROL ANN OSEGUERA [id number] 17:13:00 Test Item Value Reference Range Interpretation Comments PARTIAL THROMBOPLASTIN TIME 72.8 seconds 22.5-36.0 H (BEAKER) (test code = 760) POCT-GLUCOSE [id number] 12:29:00 Test Item Value Reference Range Interpretation Comments POC-GLUCOSE METER 179 mg/dL 70-110 H : TESTED A T [facility] 6720 (BEAKER) (test code = [place], 1538) [id number]: Choir Singer/Techni lars ID = [id number] for CAROL ANN OSEGUERA [id number] 11:15:00 Test Item Value Reference Range Interpretation Comments PARTIAL THROMBOPLASTIN TIME 76.4 seconds 22.5-36.0 H (BEAKER) (test code = 760) BLOOD GAS, [id number] 10:14:00 Test Item Value Reference Range Interpretation Comments PH ARTERIAL (BEAKER) (test code = 7.59 7.35-7.45 H 383) PCO2 ARTERIAL (BEAKER) (test code 27 mmHg 35-45 L = 384) PO2 ARTERIAL (BEAKER) (test code = 67 mmHg 80-90 L 385) O2 SATURATION ARTERIAL (BEAKER) 95.9 % 96.0-97.0 L (test code = 386) HCO3 ARTERIAL (BEAKER) (test code 25 mmol/L 21-29 = 388) BASE EXCESS ARTERIAL (BEAKER) 3.3 mmol/L -2.0-3.0 H (test code = 387) PATIENT TEMPERATURE (BEAKER) (test 37.0 C code = 1818) FIO2 (BEAKER) (test code = 1819) 21.0 % BLOOD [id number] 09:49:00 Test Item Value Reference Range Interpretation Comments CULTURE A From Aerobic An d (BEAKER) (test Anaerobic Bot tles Same code = 1095) organism has be en isolated from cultures(s) of the same body site within 3 days. Repeat identification and susceptibility testing performed only after consultation wi the clinical microb iology laboratory.Refe r to previous cultur e of* - Staphlococcus lugdunensis GRAM STAIN From aerobic and RESULT (BEAKER) anaerobic (test code = bottles: gram 1123) positive cocci in clusters BLOOD [id number] 09:49:00 Test Item Value Reference Range Interpretation Comments CULTURE A From Aerobic An d (BEAKER) (test Anaerobic Bot tles Same code = 1095) organism has be en isolated from cultures(s) of the same body site within 3 days. Repeat identification and susceptibility testing performed only after consultation wi the clinical microb iology laboratory.Refe r to previous cultur e of* - Staphlococcus lugdunensis GRAM STAIN From aerobic and RESULT (BEAKER) anaerobic (test code = bottles: gram 1123) positive cocci in clusters POCT-GLUCOSE [id number] 06:19:00 Test Item Value Reference Range Interpretation Comments POC-GLUCOSE METER 202 mg/dL 70-110 H : TESTED A T [facility] 6720 (BEAKER) (test code = [place], 1538) [id number]: Choir Singer/Techni lars ID = [id number] for AL I, JOSEPHINE [id number] 04:33:00 Test Item Value Reference Range Interpretation Comments PARTIAL THROMBOPLASTIN TIME 53.7 seconds 22.5-36.0 H (BEAKER) (test code = 760) [id number] 04:27:00 Test Item Value Reference Range Interpretation Comments MAGNESIUM (BEAKER) (test code = 2.2 mg/dL 1.6-2.6 627) Choir Singer ID - TRAN WBASIC METABOLIC [id number] 04:27:00 Test Item Value Reference Range Interpretation Comments SODIUM (BEAKER) 146 meq/L 136-145 H (test code = 381) POTASSIUM (BEAKER) 3.4 meq/L 3.5-5.1 L (test code = 379) CHLORIDE (BEAKER) 112 meq/L 98-107 H (test code = 382) CO2 (BEAKER) (test 26 meq/L 22-29 code = 355) BLOOD UREA NITROGEN 36 mg/dL 7-21 H (BEAKER) (test code = 354) CREATININE (BEAKER) 1.14 mg/dL 0.57-1.25 (test code = 358) GLUCOSE RANDOM 183 mg/dL 70-105 H (BEAKER) (test code = 652) CALCIUM (BEAKER) 8.9 mg/dL 8.4-10.2 (test code = 697) EGFR (BEAKER) (test 62 mL/min/1.73 ESTIMA NINA GFR IS code = 1092) sq m NOT ACCURATE CREATININE CLEARANCE IN PREDICTING GLOMERULAR FILTRATION RATE . ESTIMATED GFR I S NOT APPLICABLE FOR DIALYSIS PATIEN TS. Choir Singer ID - TRAN WCBC W/PLT COUNT & AUTO [id number] 04:18:00 Test Item Value Reference Range Interpretation Comments WHITE BLOOD CELL COUNT (BEAKER) 14.7 K/ L 3.5-10.5 H (test code = 775) RED BLOOD CELL COUNT (BEAKER) 2.82 M/ L 4.63-6.08 L (test code = 761) HEMOGLOBIN (BEAKER) (test code = 8.4 GM/DL 13.7-17.5 L 410) HEMATOCRIT (BEAKER) (test code = 25.8 % 40.1-51.0 L 411) MEAN CORPUSCULAR VOLUME (BEAKER) 91.5 fL 79.0-92.2 (test code = 753) MEAN CORPUSCULAR HEMOGLOBIN 29.8 pg 25.7-32.2 (BEAKER) (test code = 751) MEAN CORPUSCULAR HEMOGLOBIN CONC 32.6 GM/DL 32.3-36.5 (BEAKER) (test code = 752) RED CELL DISTRIBUTION WIDTH 15.9 % 11.6-14.4 H (BEAKER) (test code = 412) PLATELET COUNT (BEAKER) (test 313 K/CU MM 150-450 code = 756) MEAN PLATELET VOLUME (BEAKER) 11.1 fL 9.4-12.4 (test code = 754) NUCLEATED RED BLOOD CELLS 0 /100 WBC 0-0 (BEAKER) (test code = 413) NEUTROPHILS RELATIVE PERCENT 82 % (BEAKER) (test code = 429) LYMPHOCYTES RELATIVE PERCENT 11 % (BEAKER) (test code = 430) MONOCYTES RELATIVE PERCENT 5 % (BEAKER) (test code = 431) EOSINOPHILS RELATIVE PERCENT 0 % (BEAKER) (test code = 432) BASOPHILS RELATIVE PERCENT 0 % (BEAKER) (test code = 437) NEUTROPHILS ABSOLUTE COUNT 12.07 K/ L 1.78-5.38 H (BEAKER) (test code = 670) LYMPHOCYTES ABSOLUTE COUNT 1.60 K/ L 1.32-3.57 (BEAKER) (test code = 414) MONOCYTES ABSOLUTE COUNT (BEAKER) 0.67 K/ L 0.30-0.82 (test code = 415) EOSINOPHILS ABSOLUTE COUNT 0.05 K/ L 0.04-0.54 (BEAKER) (test code = 416) BASOPHILS ABSOLUTE COUNT (BEAKER) 0.01 K/ L 0.01-0.08 (test code = 417) IMMATURE GRANULOCYTES-RELATIVE 2 % 0-1 H PERCENT (BEAKER) (test code = 2801) POCT-GLUCOSE [id number] 23:24:00 Test Item Value Reference Range Interpretation Comments POC-GLUCOSE METER 160 mg/dL 70-110 H : TESTED A T [facility] 6720 (BEAKER) (test code = [facility], 1538) [id number]: Choir Singer/Techni lars ID = [id number] for JOSEPHINE MUSE [id number] 21:10:00 Test Item Value Reference Range Interpretation Comments PARTIAL THROMBOPLASTIN TIME 70.0 seconds 22.5-36.0 H (BEAKER) (test code = 760) [id number] 13:55:00 Test Item Value Reference Range Interpretation Comments PARTIAL THROMBOPLASTIN TIME 70.0 seconds 22.5-36.0 H (BEAKER) (test code = 760) POCT-GLUCOSE [id number] 12:13:00 Test Item Value Reference Range Interpretation Comments POC-GLUCOSE METER 165 mg/dL 70-110 H : TESTED A T [facility] 6720 (BEAKER) ([facility] = 1538) [id number]: Choir Singer/Techni lars ID = [id number] for FAHAD SILVA RAD, CHEST, 1 VIEW, NON [id number] 11:54:00Reason for exam:- >tachypneaShould this be performed at the bedside?->YesFINAL REPORT RAD, CHEST, 1 VIEW, NON DEPT INDICATION: tachypnea COMPARISON: December 17, 2019 FINDINGS: Portable frontal view of the chest. IMPRESSION: Support Lines: Pacer device. Lungs and pleura: Left basilar atelectasis and retrocardiac airspace disease No pneumothorax.Heart and mediastinum: Stable contours. Additional findings: None. Signed: Madeline Casas MDRes Verified Date/Time: 12/19/2019 11:54:30 Reading Location: [address] Neuro Reading Room BLOOD [id number] 11:04:00 Test Item Value Reference Range Interpretation Comments CULTURE A From Aerobic An d (BEAKER) (test Anaerobic Bot tles Same code = 1095) organism has be en isolated from cultures(s) of the same body site within 3 days. Repeat identification and susceptibility testing performed only after consultation wi the clinical microb iology laboratory.Refe r to previous cultur e of* - Staphylococcus lugdunensis GRAM STAIN From aerobic and RESULT (BEAKER) anaerobic (test code = bottles: gram 1123) positive cocci in clusters BLOOD [id number] 11:02:00 Test Item Value Reference Range Interpretation Comments CULTURE A From Aerobic An d (BEAKER) (test Anaerobic Bot tles Same code = 1095) organism has be en isolated from cultures(s) of the same body site within 3 days. Repeat identification and susceptibility testing performed only after consultation wi the clinical microb iology laboratory.Refe r to previous cultur e of* - Staphylococcus lugdunensis GRAM STAIN From aerobic and RESULT (BEAKER) anaerobic (test code = bottles: gram 1123) positive cocci in clusters [id number] 07:08:00 Test Item Value Reference Range Interpretation Comments MAGNESIUM (BEAKER) 2.2 mg/dL 1.6-2.6 Specimen slightly (test code = 627) hemolyzed Choir Singer ID - DBBASIC METABOLIC [id number] 07:08:00 Test Item Value Reference Range Interpretation Comments SODIUM (BEAKER) 142 meq/L 136-145 (test code = 381) POTASSIUM (BEAKER) 3.8 meq/L 3.5-5.1 Specimen slightly (test code = 379) hemolyzed CHLORIDE (BEAKER) 112 meq/L 98-107 H (test code = 382) CO2 (BEAKER) (test 22 meq/L 22-29 code = 355) BLOOD UREA NITROGEN 36 mg/dL 7-21 H (BEAKER) (test code = 354) CREATININE (BEAKER) 1.17 mg/dL 0.57-1.25 Specimen slightly (test code = 358) hemolyzed GLUCOSE RANDOM 190 mg/dL 70-105 H (BEAKER) (test code = 652) CALCIUM (BEAKER) 8.7 mg/dL 8.4-10.2 (test code = 697) EGFR (BEAKER) (test 61 mL/min/1.73 ESTIMA NINA GFR IS code = 1092) sq m NOT ACCURATE CREATININE CLEARANCE IN PREDICTING GLOMERULAR FILTRATION RATE . ESTIMATED GFR I S NOT APPLICABLE FOR DIALYSIS PATIEN TS. Choir Singer ID - [id number] 06:41:00 Test Item Value Reference Range Interpretation Comments PARTIAL THROMBOPLASTIN TIME 63.5 seconds 22.5-36.0 H (BEAKER) (test code = 760) CBC W/PLT COUNT & AUTO [id number] 05:29:00 Test Item Value Reference Range Interpretation Comments WHITE BLOOD CELL COUNT (BEAKER) 16.7 K/ L 3.5-10.5 H (test code = 775) RED BLOOD CELL COUNT (BEAKER) 3.13 M/ L 4.63-6.08 L (test code = 761) HEMOGLOBIN (BEAKER) (test code = 9.0 GM/DL 13.7-17.5 L 410) HEMATOCRIT (BEAKER) (test code = 29.0 % 40.1-51.0 L 411) MEAN CORPUSCULAR VOLUME (BEAKER) 92.7 fL 79.0-92.2 H (test code = 753) MEAN CORPUSCULAR HEMOGLOBIN 28.8 pg 25.7-32.2 (BEAKER) (test code = 751) MEAN CORPUSCULAR HEMOGLOBIN CONC 31.0 GM/DL 32.3-36.5 L (BEAKER) (test code = 752) RED CELL DISTRIBUTION WIDTH 16.0 % 11.6-14.4 H (BEAKER) (test code = 412) PLATELET COUNT (BEAKER) (test 316 K/CU MM 150-450 code = 756) MEAN PLATELET VOLUME (BEAKER) 11.2 fL 9.4-12.4 (test code = 754) NUCLEATED RED BLOOD CELLS 0 /100 WBC 0-0 (BEAKER) (test code = 413) NEUTROPHILS RELATIVE PERCENT 82 % (BEAKER) (test code = 429) LYMPHOCYTES RELATIVE PERCENT 11 % (BEAKER) (test code = 430) MONOCYTES RELATIVE PERCENT 5 % (BEAKER) (test code = 431) EOSINOPHILS RELATIVE PERCENT 0 % (BEAKER) (test code = 432) BASOPHILS RELATIVE PERCENT 0 % (BEAKER) (test code = 437) NEUTROPHILS ABSOLUTE COUNT 13.65 K/ L 1.78-5.38 H (BEAKER) (test code = 670) LYMPHOCYTES ABSOLUTE COUNT 1.80 K/ L 1.32-3.57 (BEAKER) (test code = 414) MONOCYTES ABSOLUTE COUNT (BEAKER) 0.80 K/ L 0.30-0.82 (test code = 415) EOSINOPHILS ABSOLUTE COUNT 0.04 K/ L 0.04-0.54 (BEAKER) (test code = 416) BASOPHILS ABSOLUTE COUNT (BEAKER) 0.01 K/ L 0.01-0.08 (test code = 417) IMMATURE GRANULOCYTES-RELATIVE 2 % 0-1 H PERCENT (BEAKER) (test code = 2801) [id number] 00:50:00 Test Item Value Reference Range Interpretation Comments PARTIAL THROMBOPLASTIN TIME 57.8 seconds 22.5-36.0 H (BEAKER) (test code = 760) [id number] 18:03:00 Test Item Value Reference Range Interpretation Comments MAGNESIUM (BEAKER) 2.1 mg/dL 1.6-2.6 Specimen slightly (test code = 627) hemolyzed Choir Singer ID - [id number] 18:03:00 Test Item Value Reference Range Interpretation Comments POTASSIUM (BEAKER) 3.9 meq/L 3.5-5.1 Specimen slightly (test code = 379) hemolyzed Choir Singer ID - [id number] 17:58:00 Test Item Value Reference Range Interpretation Comments PARTIAL THROMBOPLASTIN TIME 50.8 seconds 22.5-36.0 H (BEAKER) (test code = 760) HEMOGLOBIN [id number] 12:53:00 Test Item Value Reference Range Interpretation Comments HEMOGLOBIN A1C (BEAKER) (test code = 5.4 % 4.3-6.1 368) [id number] 12:00:00 Test Item Value Reference Range Interpretation Comments POTASSIUM (BEAKER) (test code = 3.1 meq/L 3.5-5.1 L 379) Choir Singer ID - IBAN [id number] 12:00:00 Test Item Value Reference Range Interpretation Comments MAGNESIUM (BEAKER) (test code = 2.3 mg/dL 1.6-2.6 627) Choir Singer ID - IBAN FBLOOD [id number] 11:19:00 Test Item Value Reference Range Interpretation Comments CULTURE A From Aerobic An d (BEAKER) (test Anaerobic Bot tles Same code = 1095) organism has be en isolated from cultures(s) of the same body site and collection date . Repeat identifi cation and susceptibil ity testing perform ed only after consultat ion with the [facility] microbiology laboratory.Refe r to previous cultur e of* - Staphylococcus lugdunensis GRAM STAIN From aerobic and RESULT (BEAKER) anaerobic (test code = bottles: gram 1123) positive cocci in clusters BLOOD [id number] 11:17:00 Test Item Value Reference Interpretation Comments Range CULTURE (BEAKER) STAPHYLOCOCCUS A From Aero bic And (test code = 1095) LUGDUNENSIS Anaerobic Bottles Staphylococcus lugdunensis Clindamycin (test R code = 10) Erythromycin (test R code = 4) Levofloxacin (test S code = 22) Linezolid (test code S = 40) Nitrofurantoin (test S code = 23) Oxacillin (test code S = 14) Rifampin (test code = S 43) Tetracycline (test R code = 2) Trimethoprim + S Sulfamethoxazole (test code = 47) Vancomycin (test code S = 13) GRAM STAIN RESULT From aerobic and (BEAKER) (test code = anaerobic bottles: 1123) gram positive cocci in clusters [id number] 10:51:00 Test Item Value Reference Range Interpretation Comments PARTIAL THROMBOPLASTIN TIME 32.0 seconds 22.5-36.0 (BEAKER) (test code = 760) Prior to initiating heparinCBC W/PLT COUNT & AUTO [id number] 05:41:00 Test Item Value Reference Range Interpretation Comments WHITE BLOOD CELL COUNT (BEAKER) 17.4 K/ L 3.5-10.5 H (test code = 775) RED BLOOD CELL COUNT (BEAKER) 3.36 M/ L 4.63-6.08 L (test code = 761) HEMOGLOBIN (BEAKER) (test code = 9.6 GM/DL 13.7-17.5 L 410) HEMATOCRIT (BEAKER) (test code = 30.8 % 40.1-51.0 L 411) MEAN CORPUSCULAR VOLUME (BEAKER) 91.7 fL 79.0-92.2 (test code = 753) MEAN CORPUSCULAR HEMOGLOBIN 28.6 pg 25.7-32.2 (BEAKER) (test code = 751) MEAN CORPUSCULAR HEMOGLOBIN CONC 31.2 GM/DL 32.3-36.5 L (BEAKER) (test code = 752) RED CELL DISTRIBUTION WIDTH 15.6 % 11.6-14.4 H (BEAKER) (test code = 412) PLATELET COUNT (BEAKER) (test 249 K/CU MM 150-450 code = 756) MEAN PLATELET VOLUME (BEAKER) 11.5 fL 9.4-12.4 (test code = 754) NUCLEATED RED BLOOD CELLS 0 /100 WBC 0-0 (BEAKER) (test code = 413) NEUTROPHILS RELATIVE PERCENT 84 % (BEAKER) (test code = 429) LYMPHOCYTES RELATIVE PERCENT 8 % (BEAKER) (test code = 430) MONOCYTES RELATIVE PERCENT 5 % (BEAKER) (test code = 431) EOSINOPHILS RELATIVE PERCENT 0 % (BEAKER) (test code = 432) BASOPHILS RELATIVE PERCENT 0 % (BEAKER) (test code = 437) NEUTROPHILS ABSOLUTE COUNT 14.69 K/ L 1.78-5.38 H (BEAKER) (test code = 670) LYMPHOCYTES ABSOLUTE COUNT 1.38 K/ L 1.32-3.57 (BEAKER) (test code = 414) MONOCYTES ABSOLUTE COUNT (BEAKER) 0.82 K/ L 0.30-0.82 (test code = 415) EOSINOPHILS ABSOLUTE COUNT 0.02 K/ L 0.04-0.54 L (BEAKER) (test code = 416) BASOPHILS ABSOLUTE COUNT (BEAKER) 0.02 K/ L 0.01-0.08 (test code = 417) IMMATURE GRANULOCYTES-RELATIVE 3 % 0-1 H PERCENT (BEAKER) (test code = 2801) [id number] 05:03:00 Test Item Value Reference Range Interpretation Comments MAGNESIUM (BEAKER) 2.1 mg/dL 1.6-2.6 Specimen slightly (test code = 627) hemolyzed Choir Singer ID - ADAMARIS MBASIC METABOLIC [id number] 05:03:00 Test Item Value Reference Range Interpretation Comments SODIUM (BEAKER) 141 meq/L 136-145 (test code = 381) POTASSIUM (BEAKER) 3.5 meq/L 3.5-5.1 Specimen slightly (test code = 379) hemolyzed CHLORIDE (BEAKER) 108 meq/L 98-107 H (test code = 382) CO2 (BEAKER) (test 25 meq/L 22-29 code = 355) BLOOD UREA NITROGEN 35 mg/dL 7-21 H (BEAKER) (test code = 354) CREATININE (BEAKER) 1.20 mg/dL 0.57-1.25 Specimen slightly (test code = 358) hemolyzed GLUCOSE RANDOM 183 mg/dL 70-105 H (BEAKER) (test code = 652) CALCIUM (BEAKER) 9.0 mg/dL 8.4-10.2 (test code = 697) EGFR (BEAKER) (test 59 mL/min/1.73 ESTIMA NINA GFR IS code = 1092) sq m NOT ACCURATE CREATININE CLEARANCE IN PREDICTING GLOMERULAR FILTRATION RATE . ESTIMATED GFR I S NOT APPLICABLE FOR DIALYSIS PATIEN TS. Choir Singer ID - ADAMARIS MVANCOMYCIN LEVEL, [id number] 19:14:00 Test Item Value Reference Range Interpretation Comments VANCOMYCIN TROUGH (BEAKER) (test 10.8 ug/mL 10.0-20.0 code = 522) CT, CHEST, WITHOUT [id number] 13:42:00FINAL REPORT CT of the Chest, abdomen [...] MDReport Verified Date/Time: 12/17/2019 13:42:11 Reading Location: [facility] C013Y CT Body Reading Room CT, [id number] 13:42:00FINAL REPORT CT of the Chest, abdomen [...] Gregory Verified Date/Time: 12/17/2019 13:42:11 Reading Location: [address] Body Reading Room CT, BRAIN, WITHOUT [...] Casasort Verified Date/Time: 12/17/2019 11:48:34 Reading Location: [facility] C013V Neuro Reading Room RAD, CHEST, 1 VIEW, NON [id number] 10:42:00Reason for exam:->intubationFINAL REPORT CLINICAL HISTORY: intubation TECHNIQUE: 1 view of the chest. COMPARISON: 12/16/2019 IMPRESSION: An ETT and NGT appear unchanged. Left lung base pleural-parenchymal opacification is unchanged. The cardiomediastinal silhouette is magnified by technique with a pacemaker. Signed: Gil Pastor MDReport Verified Date/Time: 12/17/2019 10:42:15 Reading Location: [facility] Radiology Reading Room URINE [id number] 10:21:00 Test Item Value Reference Range Interpretation Comments CULTURE (BEAKER) (test code = 1095) No growth [id number] 04:42:00 Test Item Value Reference Range Interpretation Comments FERRITIN (BEAKER) (test code = 4442 ng/mL 5-275 H 361) Choir Singer ID - ADAMARIS MTSH/FREE T4 IF [id number] 04:41:00 Test Item Value Reference Range Interpretation Comments THYROID STIMULATING HORMONE 0.72 uIU/mL 0.35-4.94 (BEAKER) (test code = 772) Choir Singer ID - ADAMARIS MVITAMIN B12 AND [id number] 04:41:00 Test Item Value Reference Range Interpretation Comments VITAMIN B12 (BEAKER) (test code = 767 pg/mL 213-816 774) FOLATE (BEAKER) (test code = 362) 5.1 ng/mL >=7.0 L Choir Singer ID - ADAMARIS BENIGNO, TIBC, % SAT. (WITHOUT FERRITIN)2019-12-17 03:47:00 Test Item Value Reference Range Interpretation Comments IRON (BEAKER) (test code = 547) 21.0 ug/dL 40.0-160.0 L TOTAL IRON BINDING CAPACITY 115 ug/dL 250-450 L (BEAKER) (test code = 769) IRON % SATURATION (2) (BEAKER) 18 % 20-55 L (test code = 2590) Choir Singer ID - ADAMARIS [id number] 03:46:00 Test Item Value Reference Range Interpretation Comments MAGNESIUM (BEAKER) (test code = 2.1 mg/dL 1.6-2.6 627) Choir Singer ID - ADAMARIS MBASIC METABOLIC [id number] 03:46:00 Test Item Value Reference Range Interpretation Comments SODIUM (BEAKER) 137 meq/L 136-145 (test code = 381) POTASSIUM (BEAKER) 3.7 meq/L 3.5-5.1 (test code = 379) CHLORIDE (BEAKER) 105 meq/L 98-107 (test code = 382) CO2 (BEAKER) (test 24 meq/L 22-29 code = 355) BLOOD UREA NITROGEN 30 mg/dL 7-21 H (BEAKER) (test code = 354) CREATININE (BEAKER) 1.15 mg/dL 0.57-1.25 (test code = 358) GLUCOSE RANDOM 121 mg/dL 70-105 H (BEAKER) (test code = 652) CALCIUM (BEAKER) 8.9 mg/dL 8.4-10.2 (test code = 697) EGFR (BEAKER) (test 62 mL/min/1.73 ESTIMA NINA GFR IS code = 1092) sq m NOT ACCURATE CREATININE CLEARANCE IN PREDICTING GLOMERULAR FILTRATION RATE . ESTIMATED GFR I S NOT APPLICABLE FOR DIALYSIS PATIEN TS. Choir Singer ID - ADAMARIS EPATIC FUNCTION [id number] 03:46:00 Test Item Value Reference Range Interpretation Comments TOTAL PROTEIN (BEAKER) (test code = 5.3 gm/dL 6.0-8.3 L 770) ALBUMIN (BEAKER) (test code = 1145) 2.1 g/dL 3.5-5.0 L BILIRUBIN TOTAL (BEAKER) (test code 1.6 mg/dL 0.2-1.2 H = 377) BILIRUBIN DIRECT (BEAKER) (test 1.1 mg/dL 0.1-0.5 H code = 706) ALKALINE PHOSPHATASE (BEAKER) (test 59 U/L 40-150 code = 346) AST (SGOT) (BEAKER) (test code = 29 U/L 5-34 353) ALT (SGPT) (BEAKER) (test code = 15 U/L 6-55 347) Choir Singer ID - ADAMARIS [facility] W/PLT COUNT & AUTO [id number] 03:46:00 Test Item Value Reference Range Interpretation Comments WHITE BLOOD CELL COUNT (BEAKER) 13.7 K/ L 3.5-10.5 H (test code = 775) RED BLOOD CELL COUNT (BEAKER) 3.22 M/ L 4.63-6.08 L (test code = 761) HEMOGLOBIN (BEAKER) (test code = 9.4 GM/DL 13.7-17.5 L 410) HEMATOCRIT (BEAKER) (test code = 29.1 % 40.1-51.0 L 411) MEAN CORPUSCULAR VOLUME (BEAKER) 90.4 fL 79.0-92.2 (test code = 753) MEAN CORPUSCULAR HEMOGLOBIN 29.2 pg 25.7-32.2 (BEAKER) (test code = 751) MEAN CORPUSCULAR HEMOGLOBIN CONC 32.3 GM/DL 32.3-36.5 (BEAKER) (test code = 752) RED CELL DISTRIBUTION WIDTH 15.4 % 11.6-14.4 H (BEAKER) (test code = 412) PLATELET COUNT (BEAKER) (test 180 K/CU MM 150-450 code = 756) MEAN PLATELET VOLUME (BEAKER) 11.7 fL 9.4-12.4 (test code = 754) NUCLEATED RED BLOOD CELLS 0 /100 WBC 0-0 (BEAKER) (test code = 413) NEUTROPHILS RELATIVE PERCENT 79 % (BEAKER) (test code = 429) LYMPHOCYTES RELATIVE PERCENT 11 % (BEAKER) (test code = 430) MONOCYTES RELATIVE PERCENT 6 % (BEAKER) (test code = 431) EOSINOPHILS RELATIVE PERCENT 1 % (BEAKER) (test code = 432) BASOPHILS RELATIVE PERCENT 0 % (BEAKER) (test code = 437) NEUTROPHILS ABSOLUTE COUNT 10.86 K/ L 1.78-5.38 H (BEAKER) (test code = 670) LYMPHOCYTES ABSOLUTE COUNT 1.54 K/ L 1.32-3.57 (BEAKER) (test code = 414) MONOCYTES ABSOLUTE COUNT (BEAKER) 0.80 K/ L 0.30-0.82 (test code = 415) EOSINOPHILS ABSOLUTE COUNT 0.14 K/ L 0.04-0.54 (BEAKER) (test code = 416) BASOPHILS ABSOLUTE COUNT (BEAKER) 0.02 K/ L 0.01-0.08 (test code = 417) IMMATURE GRANULOCYTES-RELATIVE 2 % 0-1 H PERCENT (BEAKER) (test code = 2801) PROTHROMBIN [id number] 03:35:00 Test Item Value Reference Range Interpretation Comments PROTIME (BEAKER) (test code = 17.6 seconds 11.9-14.2 H 759) INR (BEAKER) (test code = 370) 1.5 <=5.9 Effective 03/24/2019: PT Reference Range ChangeNew: 11.9-14.2 Previous: 11.7- 14.7RECOMMENDED COUMADIN/WARFARIN INR THERAPY RANGESSTANDARD DOSE: 2.0-3.0 Includes: PROPHYLAXIS for venous thrombosis, systemic embolization; TREATMENT for venous thrombosis and/or pulmonary embolus.HIGH RISK: Target INR is2.5-3.5 for patients wiht mechanical heart valves.LACTIC ACID, [id number] 03:28:00 Test Item Value Reference Range Interpretation Comments LACTATE BLOOD VENOUS 1.1 mmol/L 0.5-2.2 Specime n slightly (2) (BEAKER) (test hemolyzed code = 2872) Choir Singer ID - ADAMARIS MRETICULOCYTE [id number] 03:21:00 Test Item Value Reference Range Interpretation Comments RETICULOCYTE COUNT PCT (BEAKER) (test 2.1 % 0.5-1.8 H code = 575) Choir Singer ID - 6000BLOOD GAS, [id number] 03:16:00 Test Item Value Reference Range Interpretation Comments PH ARTERIAL (BEAKER) (test code = 7.51 7.35-7.45 H 383) PCO2 ARTERIAL (BEAKER) (test code 34 mmHg 35-45 L = 384) PO2 ARTERIAL (BEAKER) (test code = 154 mmHg 80-90 H 385) O2 SATURATION ARTERIAL (BEAKER) 99.1 % 96.0-97.0 H (test code = 386) HCO3 ARTERIAL (BEAKER) (test code 26 mmol/L = 388) BASE EXCESS ARTERIAL (BEAKER) 3.6 mmol/L -2.0-3.0 H (test code = 387) PATIENT TEMPERATURE (BEAKER) (test 38.0 C code = 1818) FIO2 (BEAKER) (test code = 1819) 50.0 % [id number] 00:42:00 Test Item Value Reference Range Interpretation Comments CORTISOL, TOTAL (BEAKER) (test 16.3 ug/dL 3.7-19.4 code = 1462) Choir Singer ID - BSVANCOMYCIN LEVEL, [id number] 21:12:00 Test Item Value Reference Range Interpretation Comments VANCOMYCIN TROUGH (BEAKER) (test 6.1 ug/mL 10.0-20.0 L code = 522) Choir Singer ID - [id number] 21:11:00 Test Item Value Reference Range Interpretation Comments MAGNESIUM (BEAKER) 1.7 mg/dL 1.6-2.6 Specimen slightly (test code = 627) hemolyzed Choir Singer ID - BSBASIC METABOLIC [id number] 21:11:00 Test Item Value Reference Range Interpretation Comments SODIUM (BEAKER) 137 meq/L 136-145 (test code = 381) POTASSIUM (BEAKER) 4.0 meq/L 3.5-5.1 Specimen slightly (test code = 379) hemolyzed CHLORIDE (BEAKER) 105 meq/L 98-107 (test code = 382) CO2 (BEAKER) (test 26 meq/L 22-29 code = 355) BLOOD UREA NITROGEN 28 mg/dL 7-21 H (BEAKER) (test code = 354) CREATININE (BEAKER) 1.13 mg/dL 0.57-1.25 Specimen slightly (test code = 358) hemolyzed GLUCOSE RANDOM 111 mg/dL 70-105 H (BEAKER) (test code = 652) CALCIUM (BEAKER) 8.9 mg/dL 8.4-10.2 (test code = 697) EGFR (BEAKER) (test 63 mL/min/1.73 ESTIMA NINA GFR IS code = 1092) sq m NOT ACCURATE CREATININE CLEARANCE IN PREDICTING GLOMERULAR FILTRATION RATE . ESTIMATED GFR I S NOT APPLICABLE FOR DIALYSIS PATIEN TS. Choir Singer ID - BSPOCT-GLUCOSE [id number] 18:34:00 Test Item Value Reference Range Interpretation Comments POC-GLUCOSE METER 95 mg/dL 70-110 : TESTED A T [facility] 6720 (BEAKER) (test code = [place], 1538) [id number]: Choir Singer/Techni lars ID = [id number] for AKIKO LAR, CAROL ANN RAD, CHEST, 1 VIEW, NON [id number] 15:48:00Reason for exam:->ett placementShould this be performed [...] MDReport Verified Date/Time: 12/16/2019 15:48:48 Reading Location: [facility] Radiology Reading Room BLOOD CULTURE IDENTIFICATION [id number] 15:32:00 Test Item Value Reference Interpretation Comments Range LISTERIA MONOCYTOGENES Not detected Not detected (test code = 20160729) STAPHYLOCOCCUS (test Detected Not detected A Coagula se negative code = 20161001) Staph specie s (CoNS)- methici llin susceptibleFirs t-seble e therapy: Cefa zolin or Oxacillin (Oxacillin pref erred if CLOTH MERCERIZING SUPERVISOR involvem ent) MecA NOT DETECTEDPossibl e contamination. The likelihood of pathogenicity i s increased if th e organism is obs erved in multiple blo od cultures obtain ed from separate venipunctures.R efere nce Range: Not Detected STAPHYLOCOCCUS AUREUS Not detected Not detected (test code = 20161002) STREPTOCOCCUS (test Not detected Not detected code = 1401127) STREPTOCOCCUS Not detected Not detected AGALACTIAE (GROUP B) (test code = 7683367) STREPTOCOCCUS Not detected Not detected PNEUMONIAE (test code = 6912079) STREPTOCOCCUS PYOGENES Not detected Not detected (GROUP A) (test code = 2470402) ACINETOBACTER BAUMANNII Not detected Not detected (test code = 6524226) HAEMOPHILUS INFLUENZAE Not detected Not detected (test code = 3024172) NEISSERIA MENINGITIDIS Not detected Not detected (test code = 3666995) ENTEROBACTERIACEAE Not detected Not detected (test code = 6886697) ENTEROBACTER CLOACOE Not detected Not detected COMPLEX (test code = 7762417) KLEBSIELLA OXYTOCA Not detected Not detected (test code = 2747453) KLEBSIELLA PNEUMONIAE Not detected Not detected (test code = 0) PROTEUS (test code = Not detected Not detected 2155986) SERRATIA MARCESCENS Not detected Not detected (test code = 7690526) JAMAL ALBICANS (test Not detected Not detected code = 1486904) JAMAL GLABRATA (test Not detected Not detected code = 4469698) JAMAL KRUSEI (test Not detected Not detected code = 5769523) JAMAL PARAPSILOSIS Not detected Not detected (test code = 8935340) JAMAL TROPICALIS Not detected Not detected (test code = 1060211) ESCHERICHIA COLI (test Not detected Not detected code = 4101765) METHICILLIN-RESISTANCE Not detected Not detected GENE (test code = 4115825) VANCOMYCIN-RESISTANCE GENE (test code = 3709907) CARBAPENEM-RESISTANCE Not detected Not detected GENE (test code = 3716253) ENTEROCOCCUS-BEAKER Not detected Not detected (test code = 7277645) PSEUDOMONAS Not detected Not detected AERUGINOSA-BEAKER (test code = 5915918) Other bacteria and resistance markers not targeted by this PCR panel cannot be excluded; therefore clinical correlation and follow up of serology, culture results, and other molecular studies is required. The results are not intended to be used as the sole means for clinical diagnosis or patient management decisions. This sample was tested at the [facility] using the [employer] Blood Culture ID Panel. It is FDA cleared and has been verified and approved by the [facility] for clinical use. This laboratory is CLIA-certified and College ofAmerican Pathologists (CAP)-accredited to perform high complexity testing.PHOSPHORUS 2019-12-16 15:18:00 Test Item Value Reference Range Interpretation Comments PHOSPHORUS (BEAKER) (test code = 4.2 mg/dL 2.3-4.7 604) Choir Singer ID - BSCOMPREHENSIVE METABOLIC [id number] 15:18:00 Test Item Value Reference Range Interpretation Comments TOTAL PROTEIN 5.2 gm/dL 6.0-8.3 L (BEAKER) (test code = 770) ALBUMIN (BEAKER) 2.1 g/dL 3.5-5.0 L (test code = 1145) ALKALINE PHOSPHATASE 63 U/L 40-150 (BEAKER) (test code = 346) BILIRUBIN TOTAL 1.6 mg/dL 0.2-1.2 H (BEAKER) (test code = 377) SODIUM (BEAKER) (test 137 meq/L 136-145 code = 381) POTASSIUM (BEAKER) 3.1 meq/L 3.5-5.1 L (test code = 379) CHLORIDE (BEAKER) 104 meq/L 98-107 (test code = 382) CO2 (BEAKER) (test 25 meq/L 22-29 code = 355) BLOOD UREA NITROGEN 28 mg/dL 7-21 H (BEAKER) (test code = 354) CREATININE (BEAKER) 1.19 mg/dL 0.57-1.25 (test code = 358) GLUCOSE RANDOM 126 mg/dL 70-105 H (BEAKER) (test code = 652) CALCIUM (BEAKER) 9.0 mg/dL 8.4-10.2 (test code = 697) AST (SGOT) (BEAKER) 33 U/L 5-34 (test code = 353) ALT (SGPT) (BEAKER) 16 U/L 6-55 (test code = 347) EGFR (BEAKER) (test 59 mL/min/1.73 ESTIMA NINA GFR IS code = 1092) sq m NOT ACCURATE CREATININE CLEARANCE IN PREDICTING GLOMERULAR FILTRATION RATE . ESTIMATED GFR I S NOT APPLICABLE FOR DIALYSIS PATIEN TS. Choir Singer ID - [id number] 15:09:00 Test Item Value Reference Range Interpretation Comments AMMONIA (BEAKER) (test code = 348) 30 mol/L 18-72 Choir Singer ID - [id number] 14:58:00 Test Item Value Reference Range Interpretation Comments PROTIME (BEAKER) (test code = 20.7 seconds 11.9-14.2 H 759) INR (BEAKER) (test code = 370) 1.8 <=5.9 PARTIAL THROMBOPLASTIN TIME 37.9 seconds 22.5-36.0 H (BEAKER) (test code = 760) Effective 03/24/2019: PT Reference Range ChangeNew: 11.9-14.2 Previous: 11.7- 14.7RECOMMENDED COUMADIN/WARFARIN INR THERAPY RANGESSTANDARD DOSE: 2.0-3.0 Includes: PROPHYLAXIS for venous thrombosis, systemic embolization; TREATMENT for venous thrombosis and/or pulmonary embolus.HIGH RISK: Target INR is2.5-3.5 for patients wiht mechanical heart valves.[id number] 14:53:00 Test Item Value Reference Range Interpretation Comments MAGNESIUM (BEAKER) (test code = 1.6 mg/dL 1.6-2.6 627) Choir Singer ID - BSLACTIC ACID, [id number] 14:46:00 Test Item Value Reference Range Interpretation Comments LACTATE BLOOD ARTERIAL (2) 1.1 mmol/L 0.5-2.2 (BEAKER) (test code = 2874) Choir Singer ID - BSPROTHROMBIN [id number] 14:44:00 Test Item Value Reference Range Interpretation Comments PROTIME (BEAKER) (test code = 20.6 seconds 11.9-14.2 H 759) INR (BEAKER) (test code = 370) 1.8 <=5.9 Effective 03/24/2019: PT Reference Range ChangeNew: 11.9-14.2 Previous: 11.7- 14.7RECOMMENDED COUMADIN/WARFARIN INR THERAPY RANGESSTANDARD DOSE: 2.0-3.0 Includes: PROPHYLAXIS for venous thrombosis, systemic embolization; TREATMENT for venous thrombosis and/or pulmonary embolus.HIGH RISK: Target INR is2.5-3.5 for patients wiht mechanical heart valves.BLOOD GAS, [id number] 14:43:00 Test Item Value Reference Range Interpretation Comments PH ARTERIAL (BEAKER) (test code = 7.43 7.35-7.45 383) PCO2 ARTERIAL (BEAKER) (test code 41 mmHg 35-45 = 384) PO2 ARTERIAL (BEAKER) (test code = 102 mmHg 80-90 H 385) O2 SATURATION ARTERIAL (BEAKER) 97.8 % 96.0-97.0 H (test code = 386) HCO3 ARTERIAL (BEAKER) (test code 27 mmol/L 21-29 = 388) BASE EXCESS ARTERIAL (BEAKER) 2.1 mmol/L -2.0-3.0 (test code = 387) PATIENT TEMPERATURE (BEAKER) (test 37.0 C code = 1818) FIO2 (BEAKER) (test code = 1819) 100.0 % SODIUM NA-STAT [id number] 14:43:00 Test Item Value Reference Range Interpretation Comments SODIUM (BEAKER) (test code = 381) 134 meq/L 135-148 L POTASSIUM-STAT [id number] 14:43:00 Test Item Value Reference Range Interpretation Comments POTASSIUM (BEAKER) (test code = 3.1 meq/L 3.6-5.5 L 379) GLUCOSE-STAT [id number] 14:43:00 Test Item Value Reference Range Interpretation Comments GLUCOSE RANDOM (BEAKER) (test code 126 mg/dL 70-110 H = 652) HGB/HCT (H&H) - STAT [id number] 14:43:00 Test Item Value Reference Range Interpretation Comments HEMOGLOBIN (BEAKER) (test code = 10.6 g/dL 13.0-16.8 L 410) HEMATOCRIT (BEAKER) (test code = 31.0 % 40.0-50.0 L 411) CBC (HEMOGRAM ONLY)2019-12-16 14:39:00 Test Item Value Reference Range Interpretation Comments WHITE BLOOD CELL COUNT 18.3 K/ L 3.5-10.5 H (BEAKER) (test code = 775) RED BLOOD CELL COUNT 3.40 M/ L 4.63-6.08 L (BEAKER) (test code = 761) HEMOGLOBIN (BEAKER) 9.9 GM/DL 13.7-17.5 L (test code = 410) HEMATOCRIT (BEAKER) 30.3 % 40.1-51.0 L (test code = 411) MEAN CORPUSCULAR 89.1 fL 79.0-92.2 VOLUME (BEAKER) (test code = 753) MEAN CORPUSCULAR 29.1 pg 25.7-32.2 HEMOGLOBIN (BEAKER) (test code = 751) MEAN CORPUSCULAR 32.7 GM/DL 32.3-36.5 HEMOGLOBIN CONC (BEAKER) (test code = 752) RED CELL DISTRIBUTION 15.2 % 11.6-14.4 H WIDTH (BEAKER) (test code = 412) PLATELET COUNT 160 K/CU MM 150-450 Discordant re sult (BEAKER) (test code = compar ed to previous 756) result; clinica l correlation required.Patien t transfused. MEAN PLATELET VOLUME 11.8 fL 9.4-12.4 (BEAKER) (test code = 754) NUCLEATED RED BLOOD 0 /100 WBC 0-0 CELLS (BEAKER) (test code = 413) CALCIUM, [id number] 14:30:00 Test Item Value Reference Range Interpretation Comments CALCIUM IONIZED (BEAKER) (test 1.22 mmol/L 1.12-1.27 code = 698) PH, BLOOD (BEAKER) (test code = 7.44 1810) BLOOD GAS, [id number] 12:39:00 Test Item Value Reference Range Interpretation Comments PH ARTERIAL (BEAKER) (test code = 7.43 7.35-7.45 383) PCO2 ARTERIAL (BEAKER) (test code 40 mmHg 35-45 = 384) PO2 ARTERIAL (BEAKER) (test code = 144 mmHg 80-90 H 385) O2 SATURATION ARTERIAL (BEAKER) 99.0 % 96.0-97.0 H (test code = 386) HCO3 ARTERIAL (BEAKER) (test code 26 mmol/L 21-29 = 388) BASE EXCESS ARTERIAL (BEAKER) 1.6 mmol/L -2.0-3.0 (test code = 387) PATIENT TEMPERATURE (BEAKER) (test 35.9 C code = 1818) FIO2 (BEAKER) (test code = 1819) 60.0 % SODIUM NA-STAT [id number] 12:39:00 Test Item Value Reference Range Interpretation Comments SODIUM (BEAKER) (test code = 381) 134 meq/L 135-148 L POTASSIUM-STAT [id number] 12:39:00 Test Item Value Reference Range Interpretation Comments POTASSIUM (BEAKER) (test code = 3.3 meq/L 3.6-5.5 L 379) GLUCOSE-STAT [id number] 12:39:00 Test Item Value Reference Range Interpretation Comments GLUCOSE RANDOM (BEAKER) (test code 116 mg/dL 70-110 H = 652) HGB/HCT (H&H) - STAT [id number] 12:39:00 Test Item Value Reference Range Interpretation Comments HEMOGLOBIN (BEAKER) (test code = 10.9 g/dL 13.0-16.8 L 410) HEMATOCRIT (BEAKER) (test code = 32.0 % 40.0-50.0 L 411) PROTHROMBIN [id number] 11:28:00 Test Item Value Reference Range Interpretation Comments PROTIME (BEAKER) (test code = 21.3 seconds 11.9-14.2 H 759) INR (BEAKER) (test code = 370) 1.9 <=5.9 Effective 03/24/2019: PT Reference Range ChangeNew: 11.9-14.2 Previous: 11.7- 14.7RECOMMENDED COUMADIN/WARFARIN INR THERAPY RANGESSTANDARD DOSE: 2.0-3.0 Includes: PROPHYLAXIS for venous thrombosis, systemic embolization; TREATMENT for venous thrombosis and/or pulmonary embolus.HIGH RISK: Target INR is2.5-3.5 for patients wiht mechanical heart valves.CALCIUM, [id number] 11:03:00 Test Item Value Reference Range Interpretation Comments CALCIUM IONIZED (BEAKER) (test 1.25 mmol/L 1.12-1.27 code = 698) PH, BLOOD (BEAKER) (test code = 7.48 1810) BLOOD GAS, [id number] 11:03:00 Test Item Value Reference Range Interpretation Comments PH ARTERIAL (BEAKER) (test code = 7.48 7.35-7.45 H 383) PCO2 ARTERIAL (BEAKER) (test code 39 mmHg 35-45 = 384) PO2 ARTERIAL (BEAKER) (test code = 128 mmHg 80-90 H 385) O2 SATURATION ARTERIAL (BEAKER) 98.7 % 96.0-97.0 H (test code = 386) HCO3 ARTERIAL (BEAKER) (test code 28 mmol/L 21-29 = 388) BASE EXCESS ARTERIAL (BEAKER) 4.6 mmol/L -2.0-3.0 H (test code = 387) PATIENT TEMPERATURE (BEAKER) (test 37.3 C code = 1818) FIO2 (BEAKER) (test code = 1819) 55.0 % SODIUM NA-STAT [id number] 11:03:00 Test Item Value Reference Range Interpretation Comments SODIUM (BEAKER) (test code = 381) 134 meq/L 135-148 L POTASSIUM-STAT [id number] 11:03:00 Test Item Value Reference Range Interpretation Comments POTASSIUM (BEAKER) (test code = 2.8 meq/L 3.6-5.5 L 379) GLUCOSE-STAT [id number] 11:03:00 Test Item Value Reference Range Interpretation Comments GLUCOSE RANDOM (BEAKER) (test code 115 mg/dL 70-110 H = 652) HGB/HCT (H&H) - STAT [id number] 11:03:00 Test Item Value Reference Range Interpretation Comments HEMOGLOBIN (BEAKER) (test code = 10.6 g/dL 13.0-16.8 L 410) HEMATOCRIT (BEAKER) (test code = 31.0 % 40.0-50.0 L 411) [id number] 08:20:00 Test Item Value Reference Range Interpretation Comments MAGNESIUM (BEAKER) (test code = 1.7 mg/dL 1.6-2.6 627) Choir Singer ID - GALAPBASIC METABOLIC [id number] 08:20:00 Test Item Value Reference Range Interpretation Comments SODIUM (BEAKER) 136 meq/L 136-145 (test code = 381) POTASSIUM (BEAKER) 3.3 meq/L 3.5-5.1 L (test code = 379) CHLORIDE (BEAKER) 102 meq/L 98-107 (test code = 382) CO2 (BEAKER) (test 24 meq/L 22-29 code = 355) BLOOD UREA NITROGEN 25 mg/dL 7-21 H (BEAKER) (test code = 354) CREATININE (BEAKER) 1.03 mg/dL 0.57-1.25 (test code = 358) GLUCOSE RANDOM 114 mg/dL 70-105 H (BEAKER) (test code = 652) CALCIUM (BEAKER) 9.1 mg/dL 8.4-10.2 (test code = 697) EGFR (BEAKER) (test 70 mL/min/1.73 ESTIMA NINA GFR IS code = 1092) sq m NOT ACCURATE CREATININE CLEARANCE IN PREDICTING GLOMERULAR FILTRATION RATE . ESTIMATED GFR I S NOT APPLICABLE FOR DIALYSIS PATIEN TS. Choir Singer ID - GALAPSpecimen slightly ictericHEPATIC FUNCTION [id number] 08:20:00 Test Item Value Reference Range Interpretation Comments TOTAL PROTEIN (BEAKER) (test code = 5.9 gm/dL 6.0-8.3 L 770) ALBUMIN (BEAKER) (test code = 1145) 2.4 g/dL 3.5-5.0 L BILIRUBIN TOTAL (BEAKER) (test code 2.2 mg/dL 0.2-1.2 H = 377) BILIRUBIN DIRECT (BEAKER) (test 1.2 mg/dL 0.1-0.5 H code = 706) ALKALINE PHOSPHATASE (BEAKER) (test 74 U/L 40-150 code = 346) AST (SGOT) (BEAKER) (test code = 36 U/L 5-34 H 353) ALT (SGPT) (BEAKER) (test code = 18 U/L 6-55 347) Choir Singer ID - Rosleyn colón ictericPROTHROMBIN [id number] 08:00:00 Test Item Value Reference Range Interpretation Comments PROTIME (BEAKER) (test code = 23.1 seconds 11.9-14.2 H 759) INR (BEAKER) (test code = 370) 2.1 <=5.9 Effective 03/24/2019: PT Reference Range ChangeNew: 11.9-14.2 Previous: 11.7- 14.7RECOMMENDED COUMADIN/WARFARIN INR THERAPY RANGESSTANDARD DOSE: 2.0-3.0 Includes: PROPHYLAXIS for venous thrombosis, systemic embolization; TREATMENT for venous thrombosis and/or pulmonary embolus.HIGH RISK: Target INR is2.5-3.5 for patients wiht mechanical heart valves.POCT-GLUCOSE [id number] 21:37:00 Test Item Value Reference Range Interpretation Comments POC-GLUCOSE METER 179 mg/dL 70-110 H : TESTED A T [facility] 6720 (BEAKER) (test code = Cancer [facility], 1538) [id number]: Choir Singer/Techni lars ID = [id number] for Catrachita Villanueva POCT-GLUCOSE [id number] 17:50:00 Test Item Value Reference Range Interpretation Comments POC-GLUCOSE METER 121 mg/dL 70-110 H : TESTED A T [facility] 6720 (BEAKER) (test code = [employer] [facility], 1538) [address]: Choir Singer/Techni lars ID = [id number] for LATISHA WELCH BLOOD GAS, [id number] 17:25:00 Test Item Value Reference Range Interpretation Comments PH ARTERIAL (BEAKER) (test code = 7.55 7.35-7.45 H 383) PCO2 ARTERIAL (BEAKER) (test code 32 mmHg 35-45 L = 384) PO2 ARTERIAL (BEAKER) (test code = 67 mmHg 80-90 L 385) O2 SATURATION ARTERIAL (BEAKER) 95.4 % 96.0-97.0 L (test code = 386) HCO3 ARTERIAL (BEAKER) (test code 28 mmol/L = 388) BASE EXCESS ARTERIAL (BEAKER) 5.3 mmol/L -2.0-3.0 H (test code = 387) PATIENT TEMPERATURE (BEAKER) (test 37.1 C code = 1818) FIO2 (BEAKER) (test code = 1819) 32.0 % EEG AWAKE AND [id number] 16:41:00Reason for exam:->amsDATE OF TEST: 12/15/19 DATE OF REPORT: 12/15/19 ACC: [id number] Start: 1603 End: 1624 CPT Code: 11370 ICD-10: R56.9 HISTORY: 74 yo male with HTN, HLD, CAD, Obesity, AVN s/p dual ppm 2007 and cardiomyopathy s/p BIV-ICD upgrade in 2014 who was transferred from [facility] for lead extraction. Patient was admitted to [facility] with change in mental status. Per [...] EEG recordings. Primitivo Chowdary MD, MS Neurophysiol ogy/Epilepsy Attending POCT-GLUCOSE [id number] 14:28:00 Test Item Value Reference Range Interpretation Comments POC-GLUCOSE METER 153 mg/dL 70-110 H : TESTED A T [facility] 6720 (BEAKER) (test code = [employer] [facility], 1538) [id number]: Choir Singer/Techni lars ID = [id number] for LATISHA WELCH POCT-GLUCOSE [id number] 08:55:00 Test Item Value Reference Range Interpretation Comments POC-GLUCOSE METER 117 mg/dL 70-110 H : TESTED A T [facility] 6720 (BEAKER) (test code = [employer] [facility], 1538) [id number]: Choir Singer/Techni alrs ID = [id number] for LATISHA WELCH CBC W/PLT COUNT & AUTO [id number] 04:22:00 Test Item Value Reference Range Interpretation Comments WHITE BLOOD CELL COUNT (BEAKER) 16.2 K/ L 3.5-10.5 H (test code = 775) RED BLOOD CELL COUNT (BEAKER) 3.70 M/ L 4.63-6.08 L (test code = 761) HEMOGLOBIN (BEAKER) (test code = 11.0 GM/DL 13.7-17.5 L 410) HEMATOCRIT (BEAKER) (test code = 31.8 % 40.1-51.0 L 411) MEAN CORPUSCULAR VOLUME (BEAKER) 85.9 fL 79.0-92.2 (test code = 753) MEAN CORPUSCULAR HEMOGLOBIN 29.7 pg 25.7-32.2 (BEAKER) (test code = 751) MEAN CORPUSCULAR HEMOGLOBIN CONC 34.6 GM/DL 32.3-36.5 (BEAKER) (test code = 752) RED CELL DISTRIBUTION WIDTH 14.6 % 11.6-14.4 H (BEAKER) (test code = 412) PLATELET COUNT (BEAKER) (test code 88 K/CU MM 150-450 L = 756) MEAN PLATELET VOLUME (BEAKER) 12.4 fL 9.4-12.4 (test code = 754) NUCLEATED RED BLOOD CELLS (BEAKER) 0 /100 WBC 0-0 (test code = 413) NEUTROPHILS RELATIVE PERCENT 83 % (BEAKER) (test code = 429) LYMPHOCYTES RELATIVE PERCENT 8 % (BEAKER) (test code = 430) MONOCYTES RELATIVE PERCENT 7 % (BEAKER) (test code = 431) EOSINOPHILS RELATIVE PERCENT 0 % (BEAKER) (test code = 432) BASOPHILS RELATIVE PERCENT 0 % (BEAKER) (test code = 437) NEUTROPHILS ABSOLUTE COUNT 13.36 K/ L 1.78-5.38 H (BEAKER) (test code = 670) LYMPHOCYTES ABSOLUTE COUNT 1.28 K/ L 1.32-3.57 L (BEAKER) (test code = 414) MONOCYTES ABSOLUTE COUNT (BEAKER) 1.15 K/ L 0.30-0.82 H (test code = 415) EOSINOPHILS ABSOLUTE COUNT 0.05 K/ L 0.04-0.54 (BEAKER) (test code = 416) BASOPHILS ABSOLUTE COUNT (BEAKER) 0.03 K/ L 0.01-0.08 (test code = 417) IMMATURE GRANULOCYTES-RELATIVE 2 % 0-1 H PERCENT (BEAKER) (test code = 2801) BASIC METABOLIC [id number] 03:32:00 Test Item Value Reference Range Interpretation Comments SODIUM (BEAKER) 135 meq/L 136-145 L (test code = 381) POTASSIUM (BEAKER) 3.1 meq/L 3.5-5.1 L (test code = 379) CHLORIDE (BEAKER) 101 meq/L 98-107 (test code = 382) CO2 (BEAKER) (test 24 meq/L 22-29 code = 355) BLOOD UREA NITROGEN 29 mg/dL 7-21 H (BEAKER) (test code = 354) CREATININE (BEAKER) 1.04 mg/dL 0.57-1.25 (test code = 358) GLUCOSE RANDOM 126 mg/dL 70-105 H (BEAKER) (test code = 652) CALCIUM (BEAKER) 9.1 mg/dL 8.4-10.2 (test code = 697) EGFR (BEAKER) (test 69 mL/min/1.73 ESTIMA NINA GFR IS code = 1092) sq m NOT ACCURATE CREATININE CLEARANCE IN PREDICTING GLOMERULAR FILTRATION RATE . ESTIMATED GFR I S NOT APPLICABLE FOR DIALYSIS PATIEN TS. Choir Singer ID - DBSpecimen slightly ictericLIPID [id number] 03:32:00 Test Item Value Reference Range Interpretation Comments TRIGLYCERIDES (BEAKER) (test code = 126 mg/dL 540) CHOLESTEROL (BEAKER) (test code = 90 mg/dL 631) HDL CHOLESTEROL (BEAKER) (test code 6 mg/dL = 976) LDL CHOLESTEROL CALCULATED (BEAKER) 59 mg/dL (test code = 633) Triglyceride Reference Range: Low Risk <150 Borderline 150-199 High Risk 200-499 Very High Risk >=500Cholesterol Reference Range: Low Risk <200 Borderline 200-239 High Risk >240HDL Cholesterol Reference Range: Low Risk >=60 High Risk <40LDL Cholesterol Reference Range: Optimal <100 Near Optimal 100-129 Borderline 130-159 High 160-189 Very High >=190 Choir Singer ID - DBSpecimen slightly ictericHEPATIC FUNCTION PANEL 2019-12-15 03:32:00 Test Item Value Reference Range Interpretation Comments TOTAL PROTEIN (BEAKER) (test code = 5.7 gm/dL 6.0-8.3 L 770) ALBUMIN (BEAKER) (test code = 1145) 2.5 g/dL 3.5-5.0 L BILIRUBIN TOTAL (BEAKER) (test code 2.8 mg/dL 0.2-1.2 H = 377) BILIRUBIN DIRECT (BEAKER) (test 1.7 mg/dL 0.1-0.5 H code = 706) ALKALINE PHOSPHATASE (BEAKER) (test 71 U/L 40-150 code = 346) AST (SGOT) (BEAKER) (test code = 38 U/L 5-34 H 353) ALT (SGPT) (BEAKER) (test code = 22 U/L 6-55 347) Choir Singer ID - DBSpecimen slightly ictericPROTHROMBIN TIME/[id number] 03:09:00 Test Item Value Reference Range Interpretation Comments PROTIME (BEAKER) (test code = 22.9 seconds 11.9-14.2 H 759) INR (BEAKER) (test code = 370) 2.1 <=5.9 Effective 03/24/2019: PT Reference Range ChangeNew: 11.9-14.2 Previous: 11.7- 14.7RECOMMENDED COUMADIN/WARFARIN INR THERAPY RANGESSTANDARD DOSE: 2.0-3.0 Includes: PROPHYLAXIS for venous thrombosis, systemic embolization; TREATMENT for venous thrombosis and/or pulmonary embolus.HIGH RISK: Target INR is2.5-3.5 for patients wiht mechanical heart valves.
--- NOTE | 2020-03-08 09:35 | ER ---
Nurse's Notes [facility] Name: Schuyler Farris Jr Age: 74 yrs Sex: Male : 1945 Arrival Date: 03/08/2020 Time: 06:39 Bed 7 Private MD: Diagnosis: Gastrostomy complications-displaced gastrostomy tube Presentation: 03/08 06:40 Chief complaint: EMS states: "we picked up the pt from [facility] and was jd3 told he has a displaced G tube upon morning rounds. they were unsure when the tube was displaced. they reported that he has only had the G tube for about 3 weeks.". Coronavirus screen: Proceed with normal triage. Ebola Screen: Patient negative for fever greater than or equal to 101.5 degrees Fahrenheit, and additional compatible Ebola Virus Disease symptoms. Initial Sepsis Screen: Does the patient meet any 2 criteria? No. Patient's initial sepsis screen is negative. Does the patient have a suspected source of infection? No. Patient's initial sepsis screen is negative. Risk Assessment: Do you want to hurt yourself or someone else? Patient reports no desire to harm self or others. Onset of symptoms was March 08, 2020. Transition of care: patient was received from another setting of care (long-term care facility), [facility]. 06:40 Method Of Arrival: EMS: [facility] jd3 06:40 Acuity: JOSE 3 jd3 Historical: - Allergies: 06:47 Bactrim; jd3 06:47 Tetanus Vaccines \\T\\ Toxoid; jd3 - Home Meds: 06:49 aspirin 81 mg Oral chew 1 tab once daily [Active]; ipratropium-albuterol 0.5 mg-3 jd3 mg(2.5 mg base)/3 mL Inhl nebu as needed [Active]; lisinopril 10 mg Oral tab 1 tab once daily [Active]; metoprolol tartrate 75 mg Oral tab 1 tab 2 times per day [Active]; Namenda 5 mg Oral tab daily [Active]; promethazine 25 mg Oral tab as needed [Active]; quetiapine 25 mg Oral tab [Active]; Senna with Docusate Sodium 8.6-50 mg Oral tab twice a day [Active]; terazosin 2 mg Oral cap 1 cap once daily [Active]; Xarelto 20 mg Oral tab 1 tab once daily [Active]; - PMHx: 06:47 Hyperlipidemia; pacemaker/defibrilator; Hypertension; CAD; Angina; CHF; jd3 - PSHx: 06:47 gastrostomy tube; pacemaker; jd3 - Immunization history:: Adult Immunizations unknown. - Social history:: Smoking status: Patient/guardian denies using tobacco, but has a distant history of tobacco abuse. Screenin:57 Abuse screen: Denies threats or abuse. Nutritional screening: No deficits noted. jd3 Tuberculosis screening: No symptoms or risk factors identified. Fall Risk Fall in past 12 months (25 points). Mental Status- Overestimates/Forgets Limitations (15 pts.). Total Pagan Fall Scale indicates Low Risk Score (25-44 pts). Fall prevention measures have been instituted. Side Rails Up X 2 Placed close to Nursing Station Frequent Obs/Assesments occuring. Assessment: 06:48 Reassessment: Spoke with day nurse Michell HILL at [facility], reports night ea shift was not sure of the time, the g tube came out and is unable to locate the size of he G tube that was in place. 06:57 Reassessment: Spoke with Michell HILL, reports the will fax the records of the GI doctor olga who placed the tube. 07:45 Reassessment: Patient appears in no apparent distress at this time. No changes from hb previously documented assessment. Patient and/or family updated on plan of care and expected duration. Pain level reassessed. 08:45 Reassessment: Patient appears in no apparent distress at this time. No changes from hb previously documented assessment. Patient and/or family updated on plan of care and expected duration. Pain level reassessed. 10:00 Reassessment: Patient appears in no apparent distress at this time. No changes from tw2 previously documented assessment. Patient and/or family updated on plan of care and expected duration. Pain level reassessed. 11:03 Reassessment: Patient appears in no apparent distress at this time. No changes from tw2 previously documented assessment. Patient and/or family updated on plan of care and expected duration. Pain level reassessed. Vital Signs: 06:45 BP 162 / 109; Pulse 73; Resp 18 S; Temp 97.9(TE); Pulse Ox 97% on R/A; Weight 99.79 kg jd3 (R); Height 6 ft. 0 in. (182.88 cm) (R); Pain 0/10; 07:30 BP 164 / 106; Pulse 85; Resp 16; Pulse Ox 99% on R/A; hb 09:00 BP 168 / 108; Pulse 74; Resp 15; Pulse Ox 99% on R/A; hb 10:00 BP 160 / 77; Pulse 62; Resp 17; Pulse Ox 97% on R/A; tw2 11:02 BP 170 / 86; Pulse 68; Resp 17; Pulse Ox 96% on R/A; tw2 06:45 Body Mass Index 29.84 (99.79 kg, 182.88 cm) jd3 ED Course: 06:39 Patient arrived in ED. sg 06:45 Triage completed. jd3 06:46 Arm band placed on. jd3 06:53 Boaz Geiger PA is PHCP. jr8 06:53 Herman Byrd MD is Attending Physician. jr8 06:57 Patient has correct armband on for positive identification. Placed in gown. Bed in low jd3 position. Call light in reach. Side rails up X2. Pulse ox on. NIBP on. 09:34 Cong Gibson MD is Hospitalizing Provider. jr8 11:04 No provider procedures requiring assistance completed. tw2 Administered Medications: No medications were administered Outcome: 09:34 Decision to Hospitalize by Provider. jr8 11:04 Admitted to Med/surg accompanied by nurse, accompanied by tech, via stretcher, room tw2 204, on monitor, with chart. 11:04 Condition: stable 11:04 Instructed on the need for admit. 12:39 Patient left the ED. Signatures: Sly Reese RN RN Boaz Geiger PA PA jr8 Helen Parikh RN RN Tania Howard RN RN tw2 Isa Long RN RN ea Davies, Jonathon, RN RN jd3 Corrections: (The following items were deleted from the chart) 06:50 06:40 Chief complaint: EMS states: "we picked up the pt from [facility] jd3 and was told he has a displaced G tube upon morning rounds. they were unsure when the tube was displaced. they reported that he has only had the G tube for about 3 weeks." jd3
--- NOTE | 2020-03-08 09:35 | EDPHYS ---
Physician Documentation [facility] Name: Schuyler Farris Jr Age: 74 yrs Sex: Male : 1945 Arrival Date: 03/08/2020 Time: 06:39 Bed 7 Private MD: ED Physician Herman Byrd HPI: 03/08 06:57 This 74 yrs old Male presents to ER via EMS with complaints of Problem With jr8 Feeding Tube. 06:57 Patient accidently pulled gastrostomy tube at some point in the middle of the night. jr8 Was sent this morning after [facility] found that it was out. Patient had it placed about 3 weeks ago per staff at [facility]. Severity of symptoms: At their worst the symptoms were mild. It is unknown whether or not the patient has had similar symptoms in the past. The patient has not recently seen a physician. Historical: - Allergies: 06:47 Bactrim; jd3 06:47 Tetanus Vaccines \T\ Toxoid; jd3 - Home Meds: 06:49 aspirin 81 mg Oral chew 1 tab once daily [Active]; ipratropium-albuterol 0.5 mg-3 jd3 mg(2.5 mg base)/3 mL Inhl nebu as needed [Active]; lisinopril 10 mg Oral tab 1 tab once daily [Active]; metoprolol tartrate 75 mg Oral tab 1 tab 2 times per day [Active]; Namenda 5 mg Oral tab daily [Active]; promethazine 25 mg Oral tab as needed [Active]; quetiapine 25 mg Oral tab [Active]; Senna with Docusate Sodium 8.6-50 mg Oral tab twice a day [Active]; terazosin 2 mg Oral cap 1 cap once daily [Active]; Xarelto 20 mg Oral tab 1 tab once daily [Active]; - PMHx: 06:47 Hyperlipidemia; pacemaker/defibrilator; Hypertension; CAD; Angina; CHF; jd3 - PSHx: 06:47 gastrostomy tube; pacemaker; jd3 - Immunization history:: Adult Immunizations unknown. - Social history:: Smoking status: Patient/guardian denies using tobacco, but has a distant history of tobacco abuse. ROS: 06:57 Unable to obtain ROS due to baseline dementia. jr8 Exam: 06:57 Eyes: Pupils equal round and reactive to light, extra-ocular motions intact. Lids and jr8 lashes normal. Conjunctiva and sclera are non-icteric and not injected. Cornea within normal limits. Periorbital areas with no swelling, redness, or edema. ENT: Nares patent. No nasal discharge, no septal abnormalities noted. Tympanic membranes are normal and external auditory canals are clear. Oropharynx with no redness, swelling, or masses, exudates, or evidence of obstruction, uvula midline. Mucous membranes moist. Respiratory: Lungs have equal breath sounds bilaterally, clear to auscultation and percussion. No rales, rhonchi or wheezes noted. No increased work of breathing, no retractions or nasal flaring. Skin: Warm, dry with normal turgor. Normal color with no rashes, no lesions, and no evidence of cellulitis. MS/ Extremity: Pulses equal, no cyanosis. Neurovascular intact. Full, normal range of motion. 06:57 Constitutional: This is a well developed, well nourished patient who is awake, alert, and in no acute distress. Cardiovascular: Regular rate and rhythm with a normal S1 and S2. No gallops, murmurs, or rubs. Normal PMI, no JVD. No pulse deficits. 06:57 Abdomen/GI: Inspection: obese ostomy site present mid left upper abdomen. No signs of infections present , Bowel sounds: active, all quadrants, Palpation: abdomen is soft and non-tender, in all quadrants. 06:57 Neuro: Orientation: to person, place, Mentation: able to follow commands, confused, Cranial nerves: CN I not tested, CN II- XII are normal as tested, extraocular movements are intact, Facial palsy and sensory deficits are absent. Motor: moves all fours, Sensation: no obvious gross deficits, seizure activity, is not displayed by the patient, Abnormal movements: there are no abnormal movements. Vital Signs: 06:45 BP 162 / 109; Pulse 73; Resp 18 S; Temp 97.9(TE); Pulse Ox 97% on R/A; Weight 99.79 kg jd3 (R); Height 6 ft. 0 in. (182.88 cm) (R); Pain 0/10; 07:30 BP 164 / 106; Pulse 85; Resp 16; Pulse Ox 99% on R/A; hb 09:00 BP 168 / 108; Pulse 74; Resp 15; Pulse Ox 99% on R/A; hb 10:00 BP 160 / 77; Pulse 62; Resp 17; Pulse Ox 97% on R/A; tw2 11:02 BP 170 / 86; Pulse 68; Resp 17; Pulse Ox 96% on R/A; tw2 06:45 Body Mass Index 29.84 (99.79 kg, 182.88 cm) jd3 MDM: 06:53 Patient medically screened. jr8 06:53 ED course: unable to pass gastrostomy tube into stomach. Tube keeps tunneling under jr8 subcutaneous tissue . 06:57 Data reviewed: vital signs, nurses notes. Data interpreted: Pulse oximetry: on room air jr8 is 97 %. Interpretation: normal. 08:27 ED course: Still waiting on Dr. Luevano to call us back. Have called three times. jr8 Talked to office staff who is suppose to be getting a hold of him . 09:28 ED course: We have called [facility] twice requesting information as to where patient had jr8 gastrostomy placed. Best they could tell us is somewhere in [place]. That they received him from a [facility] but unknown where he had tube placed. Stated that they will continue to look for more information . 09:33 ED course: Talked to Dr. Gibson who sees patient. Will admit here and have GI see jr8 patient . 03/08 10:03 Order name: CONS Physician Consult EDMS Administered Medications: No medications were administered Disposition: 03/08/20 09:34 Hospitalization ordered by Cong Gibson for Observation. Preliminary diagnosis is Gastrostomy complications - displaced gastrostomy tube . - Bed requested for Telemetry/MedSurg (observation). - Status is Observation. hb - Condition is Stable. - Problem is new. - Symptoms are unchanged. Addendum: 03/11/2020 06:59 Co-signature as Attending Physician, Herman Byrd MD. r n Signatures: Dispatcher [employer] EDMS Ita Rangel RN Herman Cerrato MD MD rn Roszak, Josh, PA PA jr8 Helen Parikh RN RN Curly Chahal RN RN jd3 Corrections: (The following items were deleted from the chart) 03/08 10:44 09:34 Hospitalization Ordered by Cong Gibson MD for Observation. Preliminary diagnosis kl is Gastrostomy complications - displaced gastrostomy tube . Bed requested for Telemetry/MedSurg (observation). Status is Observation. Condition is Stable. Problem is new. Symptoms are unchanged. jr8 12:39 10:44 03/08/2020 09:34 Hospitalization Ordered by Cong Gibson MD for Observation. hb Preliminary diagnosis is Gastrostomy complications - displaced gastrostomy tube . Bed requested for Telemetry/MedSurg (observation). Status is Observation. Condition is Stable. Problem is new. Symptoms are unchanged. kl
--- NOTE | 2020-03-08 10:04 | P.HP ---
Certification for Inpatient Patient admitted to: Inpatient With expected LOS: >2 Midnights Patient will require the following post-hospital care: None Practitioner: I am a practitioner with admitting privileges, knowledge of patient current condition, hospital course, and medical plan of care. Services: Services provided to patient in accordance with Admission requirements found in Title 42 Section 412.3 of the Code of Federal Regulations Patient History Date of Service: 03/08/20 Primary Care Provider: Paige Reason for admission: PEG tube removal History of Present Illness: Patient is a senior living patient of [facility], in [facility]. He has a history of htn, idiopathic chf with a pacemaker. He has some dementia and dysphagia. Recieves most of his pills and nutrition through his gastric tube. Unfortunately the patient pulled his tube out sometime yesterday. We are not sure at what time. He was sent to the ER where he was seen by Pierre Jensen. He was unable to replace the tube. This is understandable as usually after 20min of being pulled it is very difficult to replace the tube. As the patient recieves all his nutrition and medication through the tube it would not be chand to do the replacement as an outpatient. Will admit the patient for gastrectomy tube replacement Allergies sulfamethoxazole [From Bactrim] Allergy (Verified 12/06/19 20:11) Itching/Hives/Rash tetanus toxoid, adsorbed Allergy (Verified 12/06/19 20:11) unknown trimethoprim [From Bactrim] Allergy (Verified 12/06/19 20:11) Itching/Hives/Rash Home Medications: Amlodipine Besylate/Benazepril [Amlodipine-Benazepril 5-20 mg] 1 each PO DAILY 02/17/18 Sertraline [Zoloft*] 25 mg PO DAILY 02/17/18 Aspirin Chewable [Aspirin Chewable*] 81 mg PO DAILY 11/11/19 Labetalol HCl [Trandate] 0.5 mg PO BID 11/11/19 Pravastatin Sodium 80 mg PO BEDTIME 11/11/19 Tamsulosin HCl 0.4 mg PO BEDTIME 11/11/19 - Past Medical/Surgical History Diabetic: No -: Cardiomegaly -: Hypertension -: Pacemaker -: HLD -: Pacemaker -: Knee replacement -: back sx -: elbow sx left - Family History parents Notes: none as per pt - Social History Alcohol use: No CD- Drugs: No Caffeine use: Yes Review of Systems is unable to be obtained Physical Examination - Physical Exam General: In no apparent distress, Demented (somewhat difficult to wake. however he seems to be at his baseline when awoken) HEENT: Atraumatic, PERRLA, Mucous membr. moist/pink, EOMI, Sclerae nonicteric Neck: Supple, 2+ carotid pulse no bruit, No LAD, Without JVD or thyroid abnormality Respiratory: Clear to auscultation bilaterally, Normal air movement Cardiovascular: Regular rate/rhythm, Normal S1 S2 Gastrointestinal: Normal bowel sounds, No tenderness, Other (patient has the site of his former gastric tube. Closed with clean margins. No tenderness. ) Musculoskeletal: No tenderness Integumentary: No rashes Neurological: Normal gait, Normal speech, Normal strength at 5/5 x4 extr, Normal tone, Normal affect Lymphatics: No axilla or inguinal lymphadenopathy Assessment and Plan - Problems (Diagnosis) (1) PEG (percutaneous endoscopic gastrostomy) adjustment/replacement/removal Current Visit: Yes Status: Acute Plan: will consult Dr. Luevano. See if he can replace the gastric tube in the endoscopy suite (2) CHF (congestive heart failure), NYHA class II Current Visit: Yes Status: Acute Plan: Patient is stable. Will continue home medications. Qualifiers: Congestive heart failure type: systolic Congestive heart failure chr onicity: chronic Qualified Code(s): I50.22 - Chronic systolic (congestive) heart failure (3) HTN (hypertension) Current Visit: Yes Status: Acute Plan: Will monitor and adjust medications. He has not been very well controlled in the past Qualifiers: Hypertension type: essential hypertension Qualified Code(s): I10 - Essential (primary) hypertension (4) Dementia Current Visit: Yes Status: Acute Plan: Patient has waxing and waning mentation. This has been increasing his decline. He has been having difficulty complying with PT. Is asking for pain meds regularly. He is mostly bed bound. Which is worsening his prognosis. Qualifiers: Dementia type: Alzheimer's disease Alzheimer's disease onset: late-onset Dementia behavioral disturbance: without behavioral disturbance Qualified Code(s): G30.1 - Alzheimer's disease with late onset; F02.80 - Dementia in other diseases classified elsewhere without behavioral disturbance (5) Protein-energy malnutrition Current Visit: Yes Status: Acute Plan: Patient was put in the senior living after repeated falls. He has been mostly bed bound. We are working on getting him to transfer. The patient is a fall risk and an aspiration risk. Will hold off on PT at this point. May order it after the gastrectomy tube is placed Qualifiers: Protein-calorie malnutrition severity: severe Qualified Code(s): E43 - Unspecified severe protein-calorie malnutrition (6) Diabetes 1.5, managed as type 2 Current Visit: Yes Status: Acute Plan: Patient has been having normal sugars. He is currently on no medications. Considering he is not eating most likely this is due to malnutrion. We can keep him on a low dose sliding scale and do accuchecks q8 hours. Discharge Plan: Jail Plan to discharge in: 48 Hours - Advance Directives Does patient have a Living Will: Yes Does patient have a Durable POA for Healthcare: Yes - Code Status/Comfort Care Code Status Assessed: No Critical Care: No Time Spent Managing Pts Care (In Minutes): 45
[2020-03-08] MEDS ORDERED: GLUCAGON 1 MG/VIAL IM PRN (12:41)
[2020-03-08] MEDS ORDERED: ONDANSETRON 4 MG/2 ML VIAL IV PRN (12:41)
[2020-03-08] MEDS ORDERED: D50W 25 GM/50 ML SYRINGE/VIAL IV PRN (12:41)
[2020-03-08] MEDS ORDERED: MORPHINE 2 MG/ML SYR IV PRN (12:41)
[2020-03-08] MEDS: INSULIN -REGULAR HUMAN 50 UNIT/0.5 ML ML SQ SCH ×3 (12:41→21:00)
[2020-03-08] MEDS: D5 0.45 NS 1,000 ML IV SCH (13:07)
[2020-03-08] MEDS ORDERED: CEFAZOLIN/SWI 1gm 1 GM/10 ML SYR IVP SCH (13:15)
[2020-03-08] MEDS: HYDRALAZINE HCL 20 MG/ML VIAL IV PRN (16:33)
[2020-03-08] MEDS: ENOXAPARIN 40 MG/0.4 ML SQ SCH (16:35)
[2020-03-08 18:34] VITALS: BMI 29.8
[2020-03-09] MEDS: HYDRALAZINE HCL 20 MG/ML VIAL IV PRN ×4 (00:21→20:26)
[2020-03-09] MEDS: D5 0.45 NS 1,000 ML IV SCH ×3 (03:46→16:47)
[2020-03-09 05:39] LABS: Absolute Lymphocytes (CBC) 1.4 K/uL (0.7-4.9); Hematocrit 31.2 % (39.6-49.0); Lymphocytes % 22.4 % (15.3-44.8)
[2020-03-09 05:41] LABS: Protime INR 1.26
[2020-03-09 05:59] LABS: BUN Blood Urea Nitrogen 12 mg/dL (7-18); Bicarbonate 24 mmol/L (21-32); Glucose Level 120 mg/dL (74-106); Sodium Level 144 mmol/L (136-145)
[2020-03-09] MEDS: INSULIN -REGULAR HUMAN 50 UNIT/0.5 ML ML SQ SCH ×4 (06:00→18:00)
[2020-03-09 06:01] LABS: Potassium 2.8 mmol/L (3.5-5.1)
[2020-03-09] MEDS: KCL 20 MEQ/100 mL IVPB 20 MEQ/100 ML BAG IV SCH ×4 (08:23→22:09)
--- NOTE | 2020-03-09 08:35 | P.PN ---
Subjective Date of Service: 03/09/20 Primary Care Provider: Paige Chief Complaint: PEG tube removal Subjective: New changes (Patient has low potassium) Review of Systems 10-point ROS is otherwise unremarkable Physical Examination - Vital Signs Temperature: 98.4 F Blood Pressure: 180/87 Pulse: 76 Respirations: 20 Pulse Ox (%): 95 - Physical Exam General: Alert, In no apparent distress HEENT: Atraumatic, PERRLA, EOMI Neck: Supple, JVD not distended Respiratory: Clear to auscultation bilaterally, Normal air movement Cardiovascular: Regular rate/rhythm, Normal S1 S2 Gastrointestinal: Normal bowel sounds, No tenderness Musculoskeletal: No tenderness Integumentary: No rashes Neurological: Normal speech, Normal tone, Normal affect Lymphatics: No axilla or inguinal lymphadenopathy Assessment & Plan - Problems (Diagnosis) (1) PEG (percutaneous endoscopic gastrostomy) adjustment/replacement/removal Current Visit: Yes Status: Acute Plan: will consult Dr. Luevano. See if he can replace the gastric tube in the endoscopy suite 03/09 Patient is scheduled for peg replacement today Will replace the potassium (2) CHF (congestive heart failure), NYHA class II Current Visit: Yes Status: Chronic Plan: Patient is stable. Will continue home medications. No pedal edema noted Qualifiers: Congestive heart failure type: systolic Congestive heart failure chronicity: chronic Qualified Code(s): I50.22 - Chronic systolic (congestive) heart failure (3) HTN (hypertension) Current Visit: Yes Status: Acute Plan: Will monitor and adjust medications. He has not been very well controlled in the past Qualifiers: Hypertension type: essential hypertension Qualified Code(s): I10 - Essential (primary) hypertension (4) Dementia Current Visit: Yes Status: Acute Plan: Patient has waxing and waning mentation. This has been increasing his decline. He has been having difficulty complying with PT. Is asking for pain meds regularly. He is mostly bed bound. Which is worsening his prognosis. Qualifiers: Dementia type: Alzheimer's disease Alzheimer's disease onset: late-onset Dementia behavioral disturbance: without behavioral disturbance Qualified Code (s): G30.1 - Alzheimer's disease with late onset; F02.80 - Dementia in other diseases classified elsewhere without behavioral disturbance (5) Protein-energy malnutrition Current Visit: Yes Status: Acute Plan: Patient was put in the [facility] after repeated falls. He has been mostly bed bound. We are working on getting him to transfer. The patient is a fall risk and an aspiration risk. Will hold off on PT at this point. May order it after the gastrectomy tube is placed Qualifiers: Protein-calorie malnutrition severity: severe Qualified Code(s): E43 - Unspecified severe protein-calorie malnutrition (6) Diabetes 1.5, managed as type 2 Current Visit: Yes Status: Acute Plan: Patient has been having normal sugars. He is currently on no medications. Considering he is not eating most likely this is due to malnutrion. We can keep him on a low dose sliding scale and do accuchecks q8 hours. Discharge Plan: Assisted Plan to discharge in: 24 Hours - Code Status/Comfort Care Code Status Assessed: No Code Status: Full Code Physician Review: Patient Assessed, Agree with Above Assessment and Plan Critical Care: No Time Spent Managing Pts Care (In Minutes): 20
[2020-03-09] MEDS ORDERED: CEFAZOLIN/SWI 1gm 1 GM/10 ML SYR ONE (14:26)
[2020-03-09] MEDS ORDERED: NA CHLORIDE 0.9% 500 ML ONE (14:26)
[2020-03-09] MEDS ORDERED: LIDOCAINE 1% MPF 30 ML VIAL ONE (14:37)
[2020-03-09] MEDS ORDERED: propofoL 200 MG/20 ML VIAL IV ONE ×2 (14:37)
[2020-03-09] MEDS: ENOXAPARIN 40 MG/0.4 ML SQ SCH (15:51)
[2020-03-10] MEDS: KCL 20 MEQ/100 mL IVPB 20 MEQ/100 ML BAG IV SCH (00:01)
[2020-03-10] MEDS: D5 0.45 NS 1,000 ML IV SCH (04:41)
[2020-03-10] MEDS: INSULIN -REGULAR HUMAN 50 UNIT/0.5 ML ML SQ SCH ×3 (06:00→12:00)
[2020-03-10 06:28] LABS: BUN Blood Urea Nitrogen 10 mg/dL (7-18); Bicarbonate 22 mmol/L (21-32); Glucose Level 106 mg/dL (74-106); Potassium 3.5 mmol/L (3.5-5.1); Sodium Level 144 mmol/L (136-145)
[2020-03-10] MEDS ORDERED: Pantoprazole (granules) 40 MG/BLIST PACKET FT SCH (07:30)
[2020-03-10] MEDS: HYDRALAZINE HCL 20 MG/ML VIAL IV PRN (07:44)
[2020-03-10] MEDS ORDERED: KCL 20 MEQ/100 mL IVPB 20 MEQ/100 ML BAG IV SCH (08:00)
[2020-03-10 08:51] VITALS: O2SAT 95
[2020-03-10] MEDS ORDERED: hydrOXYzine HCL 25 MG TAB PO PRN (09:23)
--- NOTE | 2020-03-10 09:32 | P.DS ---
Admission Date: 03/08/20 Discharge Date: 03/10/20 Primary Care Provider: Paige Disposition: TRANSFER TO [facility] Discharge Condition: GOOD Reason for Admission: PEG tube removal - Problems (1) PEG (percutaneous endoscopic gastrostomy) adjustment/replacement/removal Current Visit: Yes Status: Acute (2) CHF (congestive heart failure), NYHA class II Current Visit: Yes Status: Chronic Qualifiers: Congestive heart failure type: systolic Congestive heart failure chronicity: chronic Qualified Code(s): I50.22 - Chronic systolic (congestive) heart failure (3) HTN (hypertension) Current Visit: Yes Status: Acute Qualifiers: Hypertension type: essential hypertension Qualified Code(s): I10 - Essential (primary) hypertension (4) Dementia Current Visit: Yes Status: Acute Qualifiers: Dementia type: Alzheimer's disease Alzheimer's disease onset: late-onset Dementia behavioral disturbance: without behavioral disturbance Qualified Code(s): G30.1 - Alzheimer's disease with late onset; F02.80 - Dementia in other diseases classified elsewhere without behavioral disturbance (5) Protein-energy malnutrition Current Visit: Yes Status: Acute Qualifiers: Protein-calorie malnutrition severity: severe Qualified Code(s): E43 - Unspecified severe protein-calorie malnutrition (6) Diabetes 1.5, managed as type 2 Current Visit: Yes Status: Acute Brief History of Present Illness: Patient is a snf patient of [facility]. He has a history of htn, idiopathic chf with a pacemaker. He has some dementia and dysphagia. Recieves most of his pills and nutrition through his gastric tube. Unfortunately the patient pulled his tube out sometime yesterday. We are not sure at what time. He was sent to the ER where he was seen by Pierre Jensen. He was unable to replace the tube. This is understandable as usually after 20min of being pulled it is very difficult to replace the tube. As the patient recieves all his nutrition and medication through the tube it would not be chand to do the replacement as an outpatient. Will admit the patient for gastrectomy tube replacement Hospital Course: Patient was admitted for Peg replacement. He had some hypokalemia. Which was easily corrected. Dr. Luong was able to replace his tube. The patients son was concerned about another surgery. So I did have a discussion with him. Of course he has a right to his concerns. All surgical procedures have risk. However Mr Farris has failed numerous swallow studies with speech therapy. Therefore it would be more dangerous for him to take pills and feeding orally. He is doing well this morning. Only complaints of some tenderness and generalized itching. Will start him on tube feedings. If he does well we can send him back to [facility] Vital Signs/Physical Exam: Temp Pulse Resp BP Pulse Ox 97.4 F 81 18 152/75 H 93 03/10/20 04:00 03/10/20 04:00 03/10/20 04:00 03/10/20 04:00 03/10/20 04:00 General: Alert, In no apparent distress HEENT: Atraumatic, PERRLA, EOMI Neck: Supple, JVD not distended Respiratory: Clear to auscultation bilaterally, Normal air movement Cardiovascular: Regular rate/rhythm, Normal S1 S2 Gastrointestinal: Normal bowel sounds, No tenderness Musculoskeletal: No tenderness Integumentary: No rashes Neurological: Normal speech, Normal tone, Normal affect Lymphatics: No axilla or inguinal lymphadenopathy Laboratory Data at Discharge: WBC 6.0 K/uL (4.3-10.9) 03/09/20 05:06 Hgb 10.1 g/dL (13.6-17.9) L 03/09/20 05:06 Hct 31.2 % (39.6-49.0) L 03/09/20 05:06 Plt Count 255 K/uL (152-406) 03/09/20 05:06 PT 14.8 SECONDS (9.5-12.5) H 03/09/20 05:06 INR 1.26 03/09/20 05:06 APTT 29.2 SECONDS (24.3-36.9) 03/09/20 05:06 Sodium 144 mmol/L (136-145) 03/10/20 05:34 Potassium 3.5 mmol/L (3.5-5.1) 03/10/20 05:34 BUN 10 mg/dL (7-18) 03/10/20 05:34 Creatinine 0.76 mg/dL (0.55-1.3) 03/10/20 05:34 Glucose 106 mg/dL (74-106) 03/10/20 05:34 Home Medications: Aspirin Chewable [Aspirin Chewable*] 81 mg FT DAILY 11/11/19 Buspirone HCl [Buspar] 10 mg FT BID 03/08/20 Cephalexin [Keflex*] 500 mg FT DAILY 03/08/20 Lisinopril [Zestril] 10 mg FT DAILY 03/08/20 Melatonin 6 mg FT BEDTIME 03/08/20 Memantine HCl [Namenda*] 5 mg FT DAILY 03/08/20 Metoprolol Tartrate [Lopressor*] 75 mg FT BID 03/08/20 Nut.tx.gluc Intol,Lf,Soy/Fiber [Glucerna 1.5 Ben Liquid] 60 ml FT CONT 03/08/20 Nystatin 1 tab FT BID 03/08/20 Quetiapine [Seroquel*] 12.5 mg FT BID 03/08/20 Rivaroxaban [Xarelto*] 20 mg FT DAILY 03/08/20 Sennosides/Docusate Sodium [Senna-Docusate Sodium Tablet] 1 tab FT BID 03/08/20 Terazosin HCl 2 mg FT BEDTIME 03/08/20 Tramadol HCl [Ultram] 50 mg PO Q6HP PRN 5 Days #20 tablet 03/10/20 New Medications: Tramadol HCl [Ultram] 50 mg PO Q6HP PRN 5 Days #20 tablet PRN Reason: Pain Scale 5-7 (Moderate) Diet: tube feedings of glucerna 237ml 5times a day Activity: Fall precautions Time spent managing pt's care (in minutes): 30
[2020-03-10] MEDS: GLUCERNA 1.5 CAL 1,000 ML BOT FT SCH ×2 (09:49→13:19)
[2020-03-10] MEDS ORDERED: TRAMADOL HCL 50 MG TAB PO PRN (10:12)
[2020-03-10 12:27] VITALS: BP 111/60; TEMP 98.1
[2020-03-10] MEDS ORDERED: GLUCERNA 1.5 CAL 1,000 ML BOT RTH SCH (15:00)
--- NOTE | 2020-03-10 23:49 | OP ---
Surgeon: Sanjay Luevano MD Procedure To Be Performed: Esophagogastroduodenoscopy with PEG placement. Performing Physician: Sanjay Luevano MD Indication For Procedure: Failure to thrive, dysphagia. Patient pulled out PEG tube. Plan For Anesthesia: Monitored anesthesia care. Complexity: High due to nature of the procedure. Technique: After obtaining informed consent and explaining risks and complications to the patient's healthcare proxy, which include, but are not limited to bleeding, infection, perforation, and anesthe caleb complication, patient was placed in a supine position and sedation was given. Scope was advanced into the mouth and carefully guided up to the second portion of the duodenum, and then gradually sco pe withdrawn while carefully examining the mucosa. After the completion of this examination, PEG tub e was placed, this as detailed below. After completion of examination and therapeutic maneuvers, sco pe withdrawn and procedure terminated in a safe manner. Findings: Esophagus: No gross lesions seen in the upper and mid esophagus. In the distal esophagus , a small hiatal hernia was seen. Stomach; minimal patchy erythema seen in the antrum. In the body, the site of the old PEG was seen. There was some scar tissue visualized, but no evidence of patent stoma. New site for PEG tube placement was identified with good transillumination and one-to-one pre ssure. Then, using a pull guidewire technique and under aseptic precautions and using lidocaine, 4 c c of 1% lidocaine as an anesthetic. [employer] PEG tube was placed via pull guidewi re technique. Position was confirmed with re-endoscopy, external bumper was at 4 cm. Duodenum, the bulb, and second portion appeared normal. Complications: None. Tolerance To Anesthesia: Excellent. Postoperative Diagnoses: Hiatal hernia, mild gastritis, status post PEG placement. Plan: We will add PPI to the current regimen, can restart feeding tomorrow. Keep head of bed elevat ed. Abdominal binder to prevent self removal. US/MODL Voice ID: [id number] Report ID: [id number]
== END 2020-03-10 15:10 ==
LOC: ER 06:38 → SUPCPDRO 06:38 → ERHOLD 10:01 → 2ND 11:18
PROVIDERS: ADMIT Internal Medicine; ATTEND Internal Medicine
PROC: 0DH63UZ Insertion of Feeding Device into Stomach, Percutaneous Approach (ICD-10-PCS; principal; 2020-03-08)
DX: Z43.1 Encounter for attention to gastrostomy (principal); I10 Essential (primary) hypertension; I50.22 Chronic systolic (congestive) heart failure; Z95.0 Presence of cardiac pacemaker; E78.5 Hyperlipidemia, unspecified; G30.1 Alzheimer's disease with late onset; F02.80 Dementia in other diseases classified elsewhere, unspecified severity, without behavioral disturbance, psychotic disturbance, mood disturbance, and anxiety; E43 Unspecified severe protein-calorie malnutrition; Z68.29 Body mass index [BMI] 29.0-29.9, adult; E13.9 Other specified diabetes mellitus without complications; R13.10 Dysphagia, unspecified; E87.6 Hypokalemia; R62.7 Adult failure to thrive; Z11.59 Encounter for screening for other viral diseases
CPT/HCPCS: 43246; 85025; 80048 ×2; 36415 ×3; 84132 ×2; 85610; 82947 ×8; 85730; 83036; 99285; U0002; J0360 ×6; J2704 ×2; J2270; J0690; G0378 ×5; J7799 ×4; J7040

== ENCOUNTER 2020-07-04 11:23 | Emergency (ER) | payer OTHER ==
[2020-07-04] MEDS ORDERED: NA CHLORIDE 0.9% 500 ML ONE (11:59)
--- OUTSIDE RECORDS SUMMARY | 2020-07-04 11:59 | XMS REPORT | Clinical Summary ---
:1945 Author Organization [facility] Address [address] [place] [address] Care Team Providers Name Role Phone Edilberto [...] tablet lisinopril Take 20 mg by 0 /2 Disco ntinued (PRINIVIL,ZESTRIL) mouth daily. 020 20 MG tablet pravastatin Take 20 mg by 0 2 Disc ontinued (PRAVACHOL) 20 MG mouth daily. [...] W/ GENERAL ANESTHE DEEJAY (SING/DUAL/MULT ) 01/17/2020 [facility] Sara Go MD I [...] Only General Internal Medicine 12/15/2019 Travel 12/14/2019 [facility] Joanna Go MD Infection [...] ecified organism; Acute pulmonary edema (HCC) after 07/04/2019 Immunizations Name Dates Previously Given Next Due [...] Inhaled Oxygen Concentration 40% 12/30/2019 8:48 AM SALES PROJECT COORDINATOR Weight 109.7 kg (241 lb 13.5 oz) 01/27/2020 7: 00 AM CDT Height 193 cm (6' 3.98") 01/27/2020 7:00 AM CDT Body Mass Index 29.45 01/27/2020 7:00 AM CDT Plan of Treatment Not on file Implants Implanted Type Area Purchasing Internship Device Shelf Model / Identifier Expiration Serial / Date Lot Ld Endocardial Df4 Act 55 [id number] - [id number] IMPLANTS Right : MEDTRONIC:CARD 11/25/2021 [id number] / Implanted: Qty: 1 on 01/24/2020 by Niyah Montilla MD Heart RHY:DISEASE MGT [id number] / Lead Tendril Sts 52cm [id number] - [id number] PACEMAKER/IC N/A: S T LOLITA 07/26/2022 / Implanted: Qty: 1 on 12/16/2019 by Sujata Kuhn MD D CHAMBER Heart MED:CARDIAC [id number] / DEVICE RHYM MGMT Lead Attain Performa 88cm [id number] - [id number] PACEMAKER/IC R ight: MEDTRONIC:CARD 11/04/2021 [id number] / Implanted: Qty: 1 on 01/24/2020 by Niyah Montilla MD D CHAMBER Heart RHY:DISEASE MGT [id number] / DEVICE Lead Pacemkr Capsur Novus 45cm [id number] - [id number] PACEMAKER/I C Right: MEDTRONIC:CARD 12/03/2021 [id number] / Implanted: Qty: 1 on 01/24/2020 by Niyah Montilla MD D CHAMBER Heart RHY:DISEASE MGT [id number] / DEVICE Crtd Claria Mri Quad Us Df4 [id number] - [id number] PACEMAKER/I C Right: MEDTRONIC:CARD 05/23/2021 [id number] / Implanted: Qty: 1 on 01/24/2020 by Niyah Montilla MD D CHAMBER Heart RHY:DISEASE MGT [id number] / DEVICE Procedures Procedure Name Priority Date/Time [...] 488 ms QTC Calculation(Bazett) 552 ms P [place] -6 degrees R [place] 248 degrees T [place] 38 degrees Electronic ventricular pacem eva When [...] RHYTHM STRIP - SCAN 12/31/2019 2:21 PM SALES PROJECT COORDINATOR ARRYTHMIA IMPLANT 12/31/2019 2:21 REPORT - SCAN PM SALES PROJECT COORDINATOR POCT-GLUCOSE METER Routine 12/30/2019 12:28 Resul ts for this PM SALES PROJECT COORDINATOR procedure are i n the results section. POCT-GLUCOSE METER Routine 12/30/2019 6:13 Resul ts for this AM SALES PROJECT COORDINATOR procedure are i n the results section. CBC W/PLT COUNT & Routine 12/30/2019 4:06 Result s for this AUTO DIFFERENTIAL AM SALES PROJECT COORDINATOR procedure are in the results section. APTT Routine 12/30/2019 4:06 Results for this AM SALES PROJECT COORDINATOR procedure are i n the results section. PHOSPHORUS Routine 12/30/2019 4:06 Results for this AM SALES PROJECT COORDINATOR procedure are i n the results section. COMPREHENSIVE Routine 12/30/2019 4:06 Results fo r this METABOLIC PANEL AM SALES PROJECT COORDINATOR procedure ar e in the results section. CALCIUM, IONIZED Routine 12/30/2019 4:06 Results for this AM SALES PROJECT COORDINATOR procedure are i n the results section. MAGNESIUM Routine 12/30/2019 4:06 Results for this AM SALES PROJECT COORDINATOR procedure are i n the results section. CBC W/PLT COUNT & Routine 12/30/2019 4:06 Result s for this AUTO DIFFERENTIAL AM SALES PROJECT COORDINATOR procedure are in the results section. POCT-GLUCOSE METER Routine 12/29/2019 9:56 Resul ts for this PM SALES PROJECT COORDINATOR procedure are i n the results section. MAGNESIUM Routine 12/29/2019 9:54 Results for this PM SALES PROJECT COORDINATOR procedure are i n the results section. POTASSIUM Routine 12/29/2019 9:54 Results for this PM SALES PROJECT COORDINATOR procedure are i n the results section. POCT-GLUCOSE METER Routine 12/29/2019 6:13 Resul ts for this PM SALES PROJECT COORDINATOR procedure are i n the results section. POCT-GLUCOSE METER Routine 12/29/2019 12:15 Resul ts for this PM SALES PROJECT COORDINATOR procedure are i n the results section. APTT Routine 12/29/2019 4:22 Results for this AM SALES PROJECT COORDINATOR procedure are i n the results section. CBC W/PLT COUNT & Routine 12/29/2019 4:21 Result s for this AUTO DIFFERENTIAL AM SALES PROJECT COORDINATOR procedure are in the results section. B-TYPE NATRIURETIC Routine 12/29/2019 4:21 Resul ts for this FACTOR (BNP) AM SALES PROJECT COORDINATOR procedure are i n the results section. PHOSPHORUS Routine 12/29/2019 4:21 Results for this AM SALES PROJECT COORDINATOR procedure are i n the results section. COMPREHENSIVE Routine 12/29/2019 4:21 Results fo r this METABOLIC PANEL AM SALES PROJECT COORDINATOR procedure ar e in the results section. CALCIUM, IONIZED Routine 12/29/2019 4:21 Results for this AM SALES PROJECT COORDINATOR procedure are i n the results section. MAGNESIUM Routine 12/29/2019 4:21 Results for this AM SALES PROJECT COORDINATOR procedure are i n the results section. CBC W/PLT COUNT & Routine 12/29/2019 4:21 Result s for this AUTO DIFFERENTIAL AM SALES PROJECT COORDINATOR procedure are in the results section. POCT-GLUCOSE METER Routine 12/29/2019 12:38 Resul ts for this AM SALES PROJECT COORDINATOR procedure are i n the results section. POTASSIUM Routine 12/29/2019 12:33 Results for this AM SALES PROJECT COORDINATOR procedure are i n the results section. POCT-GLUCOSE METER Routine 12/28/2019 6:55 Resul ts for this PM SALES PROJECT COORDINATOR procedure are i n the results section. TRANSFUSION SERVICE 12/28/2019 6:13 REPORT - SCAN PM SALES PROJECT COORDINATOR APTT Routine 12/28/2019 5:08 Results for this PM SALES PROJECT COORDINATOR procedure are i n the results section. BASIC METABOLIC Routine 12/28/2019 5:08 Results for this PANEL (7) PM SALES PROJECT COORDINATOR procedure are i n the results section. APTT Routine 12/28/2019 12:29 Results for this PM SALES PROJECT COORDINATOR procedure are i n the results section. POCT-GLUCOSE METER Routine 12/28/2019 12:10 Resul ts for this PM SALES PROJECT COORDINATOR procedure are i n the results section. POCT-GLUCOSE METER Routine 12/28/2019 6:45 Resul ts for this AM SALES PROJECT COORDINATOR procedure are i n the results section. CBC W/PLT COUNT & Routine 12/28/2019 4:35 Result s for this AUTO DIFFERENTIAL AM SALES PROJECT COORDINATOR procedure are in the results section. BLOOD GAS, ARTERIAL Routine 12/28/2019 4:35 Resu lts for this AM SALES PROJECT COORDINATOR procedure are i n the results section. APTT Routine 12/28/2019 4:35 Results for this AM SALES PROJECT COORDINATOR procedure are i n the results section. PHOSPHORUS Routine 12/28/2019 4:35 Results for this AM SALES PROJECT COORDINATOR procedure are i n the results section. COMPREHENSIVE Routine 12/28/2019 4:35 Results fo r this METABOLIC PANEL AM SALES PROJECT COORDINATOR procedure ar e in the results section. CALCIUM, IONIZED Routine 12/28/2019 4:35 Results for this AM SALES PROJECT COORDINATOR procedure are i n the results section. MAGNESIUM Routine 12/28/2019 4:35 Results for this AM SALES PROJECT COORDINATOR procedure are i n the results section. CBC W/PLT COUNT & Routine 12/28/2019 4:35 Result s for this AUTO DIFFERENTIAL AM SALES PROJECT COORDINATOR procedure are in the results section. XR CHEST 1 VIEW Routine 12/28/2019 4:16 Results for this PORTABLE/BEDSIDE AM SALES PROJECT COORDINATOR procedure a re in the results section. POCT-GLUCOSE METER Routine 12/28/2019 12:01 Resul ts for this AM SALES PROJECT COORDINATOR procedure are i n the results section. PREPARE STAT 12/27/2019 11:54 Results for this LEUKO-REDUCED RBC PM SALES PROJECT COORDINATOR procedure are in the results section. POTASSIUM Routine 12/27/2019 11:14 Results for this PM SALES PROJECT COORDINATOR procedure are i n the results section. MAGNESIUM Routine 12/27/2019 11:14 Results for this PM SALES PROJECT COORDINATOR procedure are i n the results section. POCT-GLUCOSE METER Routine 12/27/2019 6:23 Resul ts for this PM SALES PROJECT COORDINATOR procedure are i n the results section. TRANSFUSION SERVICE 12/27/2019 5:51 REPORT - SCAN PM SALES PROJECT COORDINATOR CBC W/PLT COUNT & Routine 12/27/2019 5:45 Result s for this AUTO DIFFERENTIAL PM SALES PROJECT COORDINATOR procedure are in the results section. CBC W/PLT COUNT & Routine 12/27/2019 5:45 Result s for this AUTO DIFFERENTIAL PM SALES PROJECT COORDINATOR procedure are in the results section. MAGNESIUM Routine 12/27/2019 3:14 Results for this PM SALES PROJECT COORDINATOR procedure are i n the results section. POTASSIUM Routine 12/27/2019 3:14 Results for this PM SALES PROJECT COORDINATOR procedure are i n the results section. POCT-GLUCOSE METER Routine 12/27/2019 2:07 Resul ts for this PM SALES PROJECT COORDINATOR procedure are i n the results section. ECG 12-LEAD Routine 12/27/2019 10:26 AM SALES PROJECT COORDINATOR Procedure Note - Interface, External Ris In - 12/27/2019 10:33 AM SALES PROJECT COORDINATOR Ventricular Rate 59 BPM Atrial Rate 85 BPM QRS Duration 196 ms Q-T Interval 514 ms QTC Calculation(Bazett) 508 ms R [place] 255 degrees T [place] 55 degrees Suspect arm lead reversal , [...] Routine 12/27/2019 10:26 Results for this AM SALES PROJECT COORDINATOR procedure are i n the results section. PREPARE LEUKO-REDUCED STAT 12/27/2019 7:27 Re sults for this RBC AM SALES PROJECT COORDINATOR procedure are i n the results section. POCT-GLUCOSE METER Routine 12/27/2019 6:35 Resul ts for this AM SALES PROJECT COORDINATOR procedure are i n the results section. CBC W/PLT COUNT & AUTO Routine 12/27/2019 4:21 R esults for this DIFFERENTIAL AM SALES PROJECT COORDINATOR procedure are i n the results section. HEMOGLOBIN AND Routine 12/27/2019 4:21 Results f or this HEMATOCRIT AM SALES PROJECT COORDINATOR procedure are i n the results section. APTT Routine 12/27/2019 4:21 Results for this AM SALES PROJECT COORDINATOR procedure are i n the results section. MAGNESIUM Routine 12/27/2019 4:21 Results for this AM SALES PROJECT COORDINATOR procedure are i n the results section. CBC W/PLT COUNT & AUTO Routine 12/27/2019 4:21 R esults for this DIFFERENTIAL AM SALES PROJECT COORDINATOR procedure are i n the results section. BASIC METABOLIC PANEL Routine 12/27/2019 4:21 Re sults for this (7) AM SALES PROJECT COORDINATOR procedure are i n the results section. BLOOD GAS, ARTERIAL Routine 12/27/2019 4:16 Resu lts for this AM SALES PROJECT COORDINATOR procedure are i n the results section. XR CHEST 1 VIEW Routine 12/27/2019 3:28 Results for this PORTABLE/BEDSIDE AM SALES PROJECT COORDINATOR procedure a re in the results section. POTASSIUM Routine 12/26/2019 11:59 Results for this PM SALES PROJECT COORDINATOR procedure are i n the results section. HEMOGLOBIN AND Routine 12/26/2019 11:59 Results f or this HEMATOCRIT PM SALES PROJECT COORDINATOR procedure are i n the results section. POCT-GLUCOSE METER Routine 12/26/2019 11:57 Resul ts for this PM SALES PROJECT COORDINATOR procedure are i n the results section. APTT Routine 12/26/2019 10:22 Results for this PM SALES PROJECT COORDINATOR procedure are i n the results section. POCT-GLUCOSE METER Routine 12/26/2019 5:21 Resul ts for this PM SALES PROJECT COORDINATOR procedure are i n the results section. MAGNESIUM Routine 12/26/2019 5:16 Results for this PM SALES PROJECT COORDINATOR procedure are i n the results section. POTASSIUM Routine 12/26/2019 5:16 Results for this PM SALES PROJECT COORDINATOR procedure are i n the results section. HEMOGLOBIN AND Routine 12/26/2019 2:33 Results f or this HEMATOCRIT PM SALES PROJECT COORDINATOR procedure are i n the results section. TRANSFUSE STAT 12/26/2019 1:49 LEUKO-REDUCED RED PM SALES PROJECT COORDINATOR BLOOD CELLS POCT-GLUCOSE METER Routine 12/26/2019 1:20 Resul ts for this PM SALES PROJECT COORDINATOR procedure are i n the results section. TYPE AND SCREEN, STAT 12/26/2019 9:03 Results for this AUTOMATED AM SALES PROJECT COORDINATOR procedure are i n the results section. APTT Routine 12/26/2019 9:03 Results for this AM SALES PROJECT COORDINATOR procedure are i n the results section. HEMOGLOBIN AND Routine 12/26/2019 7:59 Results f or this HEMATOCRIT AM SALES PROJECT COORDINATOR procedure are i n the results section. POCT-GLUCOSE METER Routine 12/26/2019 6:18 Resul ts for this AM SALES PROJECT COORDINATOR procedure are i n the results section. XR CHEST 1 VIEW Routine 12/26/2019 6:12 Results for this PORTABLE/BEDSIDE AM SALES PROJECT COORDINATOR procedure a re in the results section. BLOOD GAS, ARTERIAL Routine 12/26/2019 4:03 Resu lts for this AM SALES PROJECT COORDINATOR procedure are i n the results section. CBC W/PLT COUNT & AUTO Routine 12/26/2019 2:48 R esults for this DIFFERENTIAL AM SALES PROJECT COORDINATOR procedure are i n the results section. APTT Routine 12/26/2019 2:48 Results for this AM SALES PROJECT COORDINATOR procedure are i n the results section. MAGNESIUM Routine 12/26/2019 2:48 Results for this AM SALES PROJECT COORDINATOR procedure are i n the results section. CBC W/PLT COUNT & AUTO Routine 12/26/2019 2:48 R esults for this DIFFERENTIAL AM SALES PROJECT COORDINATOR procedure are i n the results section. BASIC METABOLIC PANEL Routine 12/26/2019 2:48 Re sults for this (7) AM SALES PROJECT COORDINATOR procedure are i n the results section. POCT-GLUCOSE METER Routine 12/25/2019 11:49 Resul ts for this PM SALES PROJECT COORDINATOR procedure are i n the results section. APTT Routine 12/25/2019 7:35 Results for this PM SALES PROJECT COORDINATOR procedure are i n the results section. POCT-GLUCOSE METER Routine 12/25/2019 6:13 Resul ts for this PM SALES PROJECT COORDINATOR procedure are i n the results section. SODIUM, RANDOM URINE Routine 12/25/2019 6:10 Res ults for this PM SALES PROJECT COORDINATOR procedure are i n the results section. CREATININE, RANDOM Routine 12/25/2019 6:10 Resul ts for this URINE PM SALES PROJECT COORDINATOR procedure are i n the results section. PROTEIN, RANDOM URINE Routine 12/25/2019 6:10 Re sults for this PM SALES PROJECT COORDINATOR procedure are i n the results section. EOSINOPHIL SMEAR, Routine 12/25/2019 6:10 Result s for this URINE PM SALES PROJECT COORDINATOR procedure are i n the results section. APTT Routine 12/25/2019 6:10 Results for this PM SALES PROJECT COORDINATOR procedure are i n the results section. TRANSFUSION SERVICE 12/25/2019 5:51 REPORT - SCAN PM SALES PROJECT COORDINATOR BLOOD CULTURE STAT 12/25/2019 1:24 Results fo r this PM SALES PROJECT COORDINATOR procedure are i n the results section. BLOOD CULTURE STAT 12/25/2019 1:19 Results fo r this PM SALES PROJECT COORDINATOR procedure are i n the results section. POCT-GLUCOSE METER Routine 12/25/2019 12:28 Resul ts for this PM SALES PROJECT COORDINATOR procedure are i n the results section. APTT Routine 12/25/2019 12:07 Results for this PM SALES PROJECT COORDINATOR procedure are i n the results section. POCT-GLUCOSE METER Routine 12/25/2019 6:46 Resul ts for this AM SALES PROJECT COORDINATOR procedure are i n the results section. PHOSPHORUS Routine 12/25/2019 6:46 Results for this AM SALES PROJECT COORDINATOR procedure are i n the results section. COMPREHENSIVE Routine 12/25/2019 6:46 Results fo r this METABOLIC PANEL AM SALES PROJECT COORDINATOR procedure ar e in the results section. MAGNESIUM Routine 12/25/2019 6:46 Results for this AM SALES PROJECT COORDINATOR procedure are i n the results section. US RENAL COMPLETE Routine 12/25/2019 6:31 Result s for this AM SALES PROJECT COORDINATOR procedure are i n the results section. APTT Routine 12/25/2019 4:43 Results for this AM SALES PROJECT COORDINATOR procedure are i n the results section. CBC W/PLT COUNT & AUTO Routine 12/25/2019 4:42 R esults for this DIFFERENTIAL AM SALES PROJECT COORDINATOR procedure are i n the results section. COMPLEMENT COMPONENT Routine 12/25/2019 4:42 Res ults for this C4 AM SALES PROJECT COORDINATOR procedure are i n the results section. COMPLEMENT COMPONENT Routine 12/25/2019 4:42 Res ults for this C3 AM SALES PROJECT COORDINATOR procedure are i n the results section. CALCIUM, IONIZED Routine 12/25/2019 4:42 Results for this AM SALES PROJECT COORDINATOR procedure are i n the results section. BLOOD GAS, ARTERIAL Routine 12/25/2019 4:42 Resu lts for this AM SALES PROJECT COORDINATOR procedure are i n the results section. CBC W/PLT COUNT & AUTO Routine 12/25/2019 4:42 R esults for this DIFFERENTIAL AM SALES PROJECT COORDINATOR procedure are i n the results section. XR CHEST 1 VIEW Routine 12/25/2019 2:59 Results for this PORTABLE/BEDSIDE AM SALES PROJECT COORDINATOR procedure a re in the results section. POCT-GLUCOSE METER Routine 12/25/2019 1:15 Resul ts for this AM SALES PROJECT COORDINATOR procedure are i n the results section. PREPARE LEUKO-REDUCED Routine 12/24/2019 11:54 Re sults for this RBC PM SALES PROJECT COORDINATOR procedure are i n the results section. TRANSFUSION SERVICE 12/24/2019 5:52 REPORT - SCAN PM SALES PROJECT COORDINATOR POCT-GLUCOSE METER Routine 12/24/2019 5:45 Resul ts for this PM SALES PROJECT COORDINATOR procedure are i n the results section. EEG AWAKE AND DROWSY Routine 12/24/2019 3:37 Res ults for this PM SALES PROJECT COORDINATOR procedure are i n the results section. SPUTUM CULTURE + GRAM Routine 12/24/2019 2:05 Re sults for this STAIN PM SALES PROJECT COORDINATOR procedure are i n the results section. POCT-GLUCOSE METER Routine 12/24/2019 11:58 Resul ts for this AM SALES PROJECT COORDINATOR procedure are i n the results section. XR CHEST 1 VIEW STAT 12/24/2019 9:50 Results for this PORTABLE/BEDSIDE AM SALES PROJECT COORDINATOR procedure a re in the results section. CREATINE KINASE (CK) Add-On 12/24/2019 9:29 Res ults for this AM SALES PROJECT COORDINATOR procedure are i n the results section. BASIC METABOLIC PANEL Routine 12/24/2019 9:29 Re sults for this (7) AM SALES PROJECT COORDINATOR procedure are i n the results section. BLOOD CULTURE Routine 12/24/2019 9:29 Results fo r this AM SALES PROJECT COORDINATOR procedure are i n the results section. BLOOD CULTURE Routine 12/24/2019 9:29 Results fo r this AM SALES PROJECT COORDINATOR procedure are i n the results section. BLOOD GAS, ARTERIAL Routine 12/24/2019 7:34 Resu lts for this AM SALES PROJECT COORDINATOR procedure are i n the results section. POCT-GLUCOSE METER Routine 12/24/2019 6:19 Resul ts for this AM SALES PROJECT COORDINATOR procedure are i n the results section. CBC W/PLT COUNT & AUTO Routine 12/24/2019 3:24 R esults for this DIFFERENTIAL AM SALES PROJECT COORDINATOR procedure are i n the results section. MAGNESIUM Routine 12/24/2019 3:24 Results for this AM SALES PROJECT COORDINATOR procedure are i n the results section. CBC W/PLT COUNT & AUTO Routine 12/24/2019 3:24 R esults for this DIFFERENTIAL AM SALES PROJECT COORDINATOR procedure are i n the results section. BASIC METABOLIC PANEL Routine 12/24/2019 3:24 Re sults for this (7) AM SALES PROJECT COORDINATOR procedure are i n the results section. LACTIC ACID, ARTERIAL Routine 12/24/2019 3:24 Re sults for this AM SALES PROJECT COORDINATOR procedure are i n the results section. APTT Routine 12/24/2019 2:30 Results for this AM SALES PROJECT COORDINATOR procedure are i n the results section. POCT-GLUCOSE METER Routine 12/24/2019 12:10 Resul ts for this AM SALES PROJECT COORDINATOR procedure are i n the results section. APTT Routine 12/23/2019 7:41 Results for this PM SALES PROJECT COORDINATOR procedure are i n the results section. POCT-GLUCOSE METER Routine 12/23/2019 6:19 Resul ts for this PM SALES PROJECT COORDINATOR procedure are i n the results section. P.E.T./CT WHOLE BODY Routine 12/23/2019 6:12 Res ults for this PI PM SALES PROJECT COORDINATOR procedure are i n the results section. POCT-GLUCOSE METER Routine 12/23/2019 3:26 Resul ts for this PM SALES PROJECT COORDINATOR procedure are i n the results section. POCT-GLUCOSE METER Routine 12/23/2019 1:45 Resul ts for this PM SALES PROJECT COORDINATOR procedure are i n the results section. BLOOD GAS, ARTERIAL Routine 12/23/2019 1:41 Resu lts for this PM SALES PROJECT COORDINATOR procedure are i n the results section. LACTIC ACID, ARTERIAL Routine 12/23/2019 1:38 Re sults for this PM SALES PROJECT COORDINATOR procedure are i n the results section. HEMOGLOBIN AND Routine 12/23/2019 1:37 Results f or this HEMATOCRIT PM SALES PROJECT COORDINATOR procedure are i n the results section. CORTISOL Routine 12/23/2019 1:37 Results for this PM SALES PROJECT COORDINATOR procedure are i n the results section. APTT Routine 12/23/2019 1:37 Results for this PM SALES PROJECT COORDINATOR procedure are i n the results section. RESPIRATORY PANEL SLHS Routine 12/23/2019 1:31 R esults for this PM SALES PROJECT COORDINATOR procedure are i n the results section. MAGNESIUM Routine 12/23/2019 12:47 Results for this PM SALES PROJECT COORDINATOR procedure are i n the results section. BASIC METABOLIC PANEL Routine 12/23/2019 12:47 Re sults for this (7) PM SALES PROJECT COORDINATOR procedure are i n the results section. BLOOD CULTURE Routine 12/23/2019 10:51 Results fo r this AM SALES PROJECT COORDINATOR procedure are i n the results section. CBC W/PLT COUNT & AUTO Routine 12/23/2019 10:35 R esults for this DIFFERENTIAL AM SALES PROJECT COORDINATOR procedure are i n the results section. APTT Routine 12/23/2019 10:35 Results for this AM SALES PROJECT COORDINATOR procedure are i n the results section. CBC W/PLT COUNT & AUTO Routine 12/23/2019 10:35 R esults for this DIFFERENTIAL AM SALES PROJECT COORDINATOR procedure are i n the results section. BLOOD CULTURE Routine 12/23/2019 9:45 Results fo r this AM SALES PROJECT COORDINATOR procedure are i n the results section. URINALYSIS W/ REFLEX STAT 12/23/2019 9:21 Res ults for this URINE CULTURE AM SALES PROJECT COORDINATOR procedure are in the results section. TRANSFUSE Routine 12/23/2019 8:32 LEUKO-REDUCED RED AM SALES PROJECT COORDINATOR BLOOD CELLS POCT-GLUCOSE METER Routine 12/23/2019 6:47 Resul ts for this AM SALES PROJECT COORDINATOR procedure are i n the results section. BLOOD GAS, ARTERIAL STAT 12/23/2019 5:29 Resu lts for this AM SALES PROJECT COORDINATOR procedure are i n the results section. TYPE AND SCREEN, Routine 12/23/2019 3:53 Results for this AUTOMATED AM SALES PROJECT COORDINATOR procedure are i n the results section. CBC W/PLT COUNT & AUTO Routine 12/23/2019 2:31 R esults for this DIFFERENTIAL AM SALES PROJECT COORDINATOR procedure are i n the results section. MAGNESIUM Routine 12/23/2019 2:31 Results for this AM SALES PROJECT COORDINATOR procedure are i n the results section. CBC W/PLT COUNT & AUTO Routine 12/23/2019 2:31 R esults for this DIFFERENTIAL AM SALES PROJECT COORDINATOR procedure are i n the results section. BASIC METABOLIC PANEL Routine 12/23/2019 2:31 Re sults for this (7) AM SALES PROJECT COORDINATOR procedure are i n the results section. BLOOD GAS, ARTERIAL STAT 12/23/2019 2:25 Resu lts for this AM SALES PROJECT COORDINATOR procedure are i n the results section. APTT Routine 12/23/2019 2:24 Results for this AM SALES PROJECT COORDINATOR procedure are i n the results section. XR CHEST 1 VIEW STAT 12/23/2019 1:29 Results for this PORTABLE/BEDSIDE AM SALES PROJECT COORDINATOR procedure a re in the results section. POCT-GLUCOSE METER Routine 12/23/2019 1:08 Resul ts for this AM SALES PROJECT COORDINATOR procedure are i n the results section. BLOOD GAS, ARTERIAL STAT 12/23/2019 12:57 Resu lts for this AM SALES PROJECT COORDINATOR procedure are i n the results section. POCT-GLUCOSE METER Routine 12/22/2019 11:30 Resul ts for this PM SALES PROJECT COORDINATOR procedure are i n the results section. POTASSIUM Routine 12/22/2019 6:14 Results for this PM SALES PROJECT COORDINATOR procedure are i n the results section. APTT Routine 12/22/2019 6:14 Results for this PM SALES PROJECT COORDINATOR procedure are i n the results section. POCT-GLUCOSE METER Routine 12/22/2019 6:12 Resul ts for this PM SALES PROJECT COORDINATOR procedure are i n the results section. XR ABDOMEN / KUB 1 Routine 12/22/2019 3:03 Resul ts for this VIEW PM SALES PROJECT COORDINATOR procedure are i n the results section. POCT-GLUCOSE METER Routine 12/22/2019 12:36 Resul ts for this PM SALES PROJECT COORDINATOR procedure are i n the results section. POTASSIUM Routine 12/22/2019 12:06 Results for this PM SALES PROJECT COORDINATOR procedure are i n the results section. MAGNESIUM Routine 12/22/2019 12:06 Results for this PM SALES PROJECT COORDINATOR procedure are i n the results section. APTT Routine 12/22/2019 12:06 Results for this PM SALES PROJECT COORDINATOR procedure are i n the results section. BLOOD CULTURE Routine 12/22/2019 10:28 Results fo r this AM SALES PROJECT COORDINATOR procedure are i n the results section. B-TYPE NATRIURETIC Routine 12/22/2019 9:47 Resul ts for this FACTOR (BNP) AM SALES PROJECT COORDINATOR procedure are i n the results section. BLOOD GAS, ARTERIAL Routine 12/22/2019 9:46 Resu lts for this AM SALES PROJECT COORDINATOR procedure are i n the results section. BLOOD CULTURE Routine 12/22/2019 9:39 Results fo r this AM SALES PROJECT COORDINATOR procedure are i n the results section. XR CHEST 1 VIEW STAT 12/22/2019 8:21 Results for this PORTABLE/BEDSIDE AM SALES PROJECT COORDINATOR procedure a re in the results section. APTT Routine 12/22/2019 7:56 Results for this AM SALES PROJECT COORDINATOR procedure are i n the results section. HEMOGLOBIN AND Routine 12/22/2019 7:56 Results f or this HEMATOCRIT AM SALES PROJECT COORDINATOR procedure are i n the results section. POCT-GLUCOSE METER Routine 12/22/2019 6:10 Resul ts for this AM SALES PROJECT COORDINATOR procedure are i n the results section. APTT Routine 12/22/2019 6:07 Results for this AM SALES PROJECT COORDINATOR procedure are i n the results section. MAGNESIUM Routine 12/22/2019 4:59 Results for this AM SALES PROJECT COORDINATOR procedure are i n the results section. BASIC METABOLIC PANEL Routine 12/22/2019 4:59 Re sults for this (7) AM SALES PROJECT COORDINATOR procedure are i n the results section. CBC W/PLT COUNT & AUTO Routine 12/22/2019 3:03 R esults for this DIFFERENTIAL AM SALES PROJECT COORDINATOR procedure are i n the results section. CBC W/PLT COUNT & AUTO Routine 12/22/2019 3:03 R esults for this DIFFERENTIAL AM SALES PROJECT COORDINATOR procedure are i n the results section. POCT-GLUCOSE METER Routine 12/22/2019 12:02 Resul ts for this AM SALES PROJECT COORDINATOR procedure are i n the results section. APTT Routine 12/21/2019 11:06 Results for this PM SALES PROJECT COORDINATOR procedure are i n the results section. GLUCOSE PLEURAL FLUID Routine 12/21/2019 5:36 Acute respirato ry Results for this PM SALES PROJECT COORDINATOR failure with procedure are i n hypoxia (HCC) the results section. PROTEIN, BODY FLUID Routine 12/21/2019 5:36 Resu lts for this PM SALES PROJECT COORDINATOR procedure are i n the results section. LACTATE DEHYDROGENASE Routine 12/21/2019 5:36 Re sults for this (LDH), BODY FLUID PM SALES PROJECT COORDINATOR procedure are in the results section. FUNGUS CULTURE + STAT 12/21/2019 5:36 Results for this SMEAR PM SALES PROJECT COORDINATOR procedure are i n the results section. BODY FLUID CULTURE + STAT 12/21/2019 5:36 Res ults for this GRAM STAIN PM SALES PROJECT COORDINATOR procedure are i n the results section. BODY FLUID CELL COUNT Routine 12/21/2019 5:36 Re sults for this WITH DIFFERENTIAL PM SALES PROJECT COORDINATOR procedure are in the results section. US THORACENTESIS Routine 12/21/2019 4:52 Results for this PM SALES PROJECT COORDINATOR procedure are i n the results section. PT/APTT Routine 12/21/2019 4:50 Results for this PM SALES PROJECT COORDINATOR procedure are i n the results section. XR CHEST 1 VIEW STAT 12/21/2019 3:21 Results for this PORTABLE/BEDSIDE PM SALES PROJECT COORDINATOR procedure a re in the results section. POCT-GLUCOSE METER Routine 12/21/2019 12:25 Resul ts for this PM SALES PROJECT COORDINATOR procedure are i n the results section. PROTHROMBIN TIME/INR STAT Add-on 12/21/2019 10:51 Res ults for this AM SALES PROJECT COORDINATOR procedure are i n the results section. PT/APTT Routine 12/21/2019 10:51 Results for this AM SALES PROJECT COORDINATOR procedure are i n the results section. CBC W/PLT COUNT & AUTO Routine 12/21/2019 4:36 R esults for this DIFFERENTIAL AM SALES PROJECT COORDINATOR procedure are i n the results section. APTT Routine 12/21/2019 4:36 Results for this AM SALES PROJECT COORDINATOR procedure are i n the results section. CREATINE KINASE (CK) Routine 12/21/2019 4:36 Res ults for this AM SALES PROJECT COORDINATOR procedure are i n the results section. MAGNESIUM Routine 12/21/2019 4:36 Results for this AM SALES PROJECT COORDINATOR procedure are i n the results section. CBC W/PLT COUNT & AUTO Routine 12/21/2019 4:36 R esults for this DIFFERENTIAL AM SALES PROJECT COORDINATOR procedure are i n the results section. BASIC METABOLIC PANEL Routine 12/21/2019 4:36 Re sults for this (7) AM SALES PROJECT COORDINATOR procedure are i n the results section. POCT-GLUCOSE METER Routine 12/20/2019 11:27 Resul ts for this PM SALES PROJECT COORDINATOR procedure are i n the results section. BLOOD GAS, ARTERIAL Routine 12/20/2019 9:09 Resu lts for this PM SALES PROJECT COORDINATOR procedure are i n the results section. POCT-GLUCOSE METER Routine 12/20/2019 6:24 Resul ts for this PM SALES PROJECT COORDINATOR procedure are i n the results section. APTT Routine 12/20/2019 4:50 Results for this PM SALES PROJECT COORDINATOR procedure are i n the results section. BLOOD CULTURE Routine 12/20/2019 1:13 Results fo r this PM SALES PROJECT COORDINATOR procedure are i n the results section. POCT-GLUCOSE METER Routine 12/20/2019 11:59 Resul ts for this AM SALES PROJECT COORDINATOR procedure are i n the results section. APTT Routine 12/20/2019 10:51 Results for this AM SALES PROJECT COORDINATOR procedure are i n the results section. BLOOD CULTURE Routine 12/20/2019 10:47 Results fo r this IDENTIFICATION PANEL AM SALES PROJECT COORDINATOR procedu re are in the results section. BLOOD CULTURE Routine 12/20/2019 10:47 Results fo r this AM SALES PROJECT COORDINATOR procedure are i n the results section. BLOOD GAS, ARTERIAL Routine 12/20/2019 9:57 Resu lts for this AM SALES PROJECT COORDINATOR procedure are i n the results section. POCT-GLUCOSE METER Routine 12/20/2019 5:41 Resul ts for this AM SALES PROJECT COORDINATOR procedure are i n the results section. CBC W/PLT COUNT & AUTO Routine 12/20/2019 3:43 R esults for this DIFFERENTIAL AM SALES PROJECT COORDINATOR procedure are i n the results section. APTT Routine 12/20/2019 3:43 Results for this AM SALES PROJECT COORDINATOR procedure are i n the results section. MAGNESIUM Routine 12/20/2019 3:43 Results for this AM SALES PROJECT COORDINATOR procedure are i n the results section. CBC W/PLT COUNT & AUTO Routine 12/20/2019 3:43 R esults for this DIFFERENTIAL AM SALES PROJECT COORDINATOR procedure are i n the results section. BASIC METABOLIC PANEL Routine 12/20/2019 3:43 Re sults for this (7) AM SALES PROJECT COORDINATOR procedure are i n the results section. POCT-GLUCOSE METER Routine 12/19/2019 11:13 Resul ts for this PM SALES PROJECT COORDINATOR procedure are i n the results section. APTT Routine 12/19/2019 8:55 Results for this PM SALES PROJECT COORDINATOR procedure are i n the results section. APTT Routine 12/19/2019 1:07 Results for this PM SALES PROJECT COORDINATOR procedure are i n the results section. POCT-GLUCOSE METER Routine 12/19/2019 12:00 Resul ts for this PM SALES PROJECT COORDINATOR procedure are i n the results section. XR CHEST 1 VIEW OLGA 12/19/2019 10:44 Results for this PORTABLE/BEDSIDE AM SALES PROJECT COORDINATOR procedure a re in the results section. APTT Routine 12/19/2019 6:18 Results for this AM SALES PROJECT COORDINATOR procedure are i n the results section. MAGNESIUM Routine 12/19/2019 6:18 Results for this AM SALES PROJECT COORDINATOR procedure are i n the results section. BASIC METABOLIC PANEL Routine 12/19/2019 6:18 Re sults for this (7) AM SALES PROJECT COORDINATOR procedure are i n the results section. CBC W/PLT COUNT & AUTO Routine 12/19/2019 5:15 R esults for this DIFFERENTIAL AM SALES PROJECT COORDINATOR procedure are i n the results section. CBC W/PLT COUNT & AUTO Routine 12/19/2019 5:15 R esults for this DIFFERENTIAL AM SALES PROJECT COORDINATOR procedure are i n the results section. APTT Routine 12/19/2019 12:23 Results for this AM SALES PROJECT COORDINATOR procedure are i n the results section. PERIPHERAL VASCULAR 12/18/2019 9:22 REPORT - SCAN PM SALES PROJECT COORDINATOR APTT Routine 12/18/2019 5:39 Results for this PM SALES PROJECT COORDINATOR procedure are i n the results section. POTASSIUM Routine 12/18/2019 5:39 Results for this PM SALES PROJECT COORDINATOR procedure are i n the results section. MAGNESIUM Routine 12/18/2019 5:39 Results for this PM SALES PROJECT COORDINATOR procedure are i n the results section. BLOOD CULTURE Routine 12/18/2019 1:15 Results fo r this PM SALES PROJECT COORDINATOR procedure are i n the results section. BLOOD CULTURE Routine 12/18/2019 12:57 Results fo r this PM SALES PROJECT COORDINATOR procedure are i n the results section. POTASSIUM Routine 12/18/2019 11:12 Results for this AM SALES PROJECT COORDINATOR procedure are i n the results section. MAGNESIUM Routine 12/18/2019 11:12 Results for this AM SALES PROJECT COORDINATOR procedure are i n the results section. APTT Routine 12/18/2019 10:30 Results for this AM SALES PROJECT COORDINATOR procedure are i n the results section. CBC W/PLT COUNT & AUTO Routine 12/18/2019 4:22 R esults for this DIFFERENTIAL AM SALES PROJECT COORDINATOR procedure are i n the results section. MAGNESIUM Routine 12/18/2019 4:22 Results for this AM SALES PROJECT COORDINATOR procedure are i n the results section. CBC W/PLT COUNT & AUTO Routine 12/18/2019 4:22 R esults for this DIFFERENTIAL AM SALES PROJECT COORDINATOR procedure are i n the results section. BASIC METABOLIC PANEL Routine 12/18/2019 4:22 Re sults for this (7) AM SALES PROJECT COORDINATOR procedure are i n the results section. HEMOGLOBIN A1C Routine 12/18/2019 4:22 Results f or this AM SALES PROJECT COORDINATOR procedure are i n the results section. ECHOCARDIOGRAM REPORT 12/17/2019 9:22 - SCAN PM SALES PROJECT COORDINATOR VENOUS DOPPLER ARM, OLGA 12/17/2019 8:10 Resu lts for this LEFT PM SALES PROJECT COORDINATOR procedure are i n the results section. TRANSFUSION SERVICE 12/17/2019 6:02 REPORT - SCAN PM SALES PROJECT COORDINATOR BLOOD CULTURE Routine 12/17/2019 3:00 Results fo r this PM SALES PROJECT COORDINATOR procedure are i n the results section. BLOOD CULTURE Routine 12/17/2019 3:00 Results fo r this PM SALES PROJECT COORDINATOR procedure are i n the results section. VANCOMYCIN LEVEL, Timed 12/17/2019 2:00 Result s for this TROUGH PM SALES PROJECT COORDINATOR procedure are i n the results section. CT ABDOMEN/PELVIS Routine 12/17/2019 11:15 Result s for this WITHOUT IV CONTRAST AM SALES PROJECT COORDINATOR procedur e are in the results section. CT CHEST WITHOUT IV Routine 12/17/2019 11:15 Resu lts for this CONTRAST AM SALES PROJECT COORDINATOR procedure are i n the results section. CT BRAIN WITHOUT IV Routine 12/17/2019 11:15 Resu lts for this CONTRAST AM SALES PROJECT COORDINATOR procedure are i n the results section. LIMITED 2D STAT 12/17/2019 8:25 Results for this ECHOCARDIOGRAM AM SALES PROJECT COORDINATOR procedure are in the results section. XR CHEST 1 VIEW Routine 12/17/2019 5:24 Results for this PORTABLE/BEDSIDE AM SALES PROJECT COORDINATOR procedure a re in the results section. CBC W/PLT COUNT & AUTO Routine 12/17/2019 3:09 R esults for this DIFFERENTIAL AM SALES PROJECT COORDINATOR procedure are i n the results section. VITAMIN B12 AND FOLATE Routine 12/17/2019 3:09 R esults for this AM SALES PROJECT COORDINATOR procedure are i n the results section. RETICULOCYTE COUNT Routine 12/17/2019 3:09 Resul ts for this AM SALES PROJECT COORDINATOR procedure are i n the results section. IRON, TIBC, % SAT. Routine 12/17/2019 3:09 Resul ts for this (WITHOUT FERRITIN) AM SALES PROJECT COORDINATOR procedure are in the results section. FERRITIN Routine 12/17/2019 3:09 Results for this AM SALES PROJECT COORDINATOR procedure are i n the results section. LACTIC ACID, VENOUS Routine 12/17/2019 3:09 Resu lts for this AM SALES PROJECT COORDINATOR procedure are i n the results section. TSH/FREE T4 IF Routine 12/17/2019 3:09 Results f or this INDICATED AM SALES PROJECT COORDINATOR procedure are i n the results section. BLOOD GAS, ARTERIAL Routine 12/17/2019 3:09 Resu lts for this AM SALES PROJECT COORDINATOR procedure are i n the results section. MAGNESIUM Routine 12/17/2019 3:09 Results for this AM SALES PROJECT COORDINATOR procedure are i n the results section. CBC W/PLT COUNT & AUTO Routine 12/17/2019 3:09 R esults for this DIFFERENTIAL AM SALES PROJECT COORDINATOR procedure are i n the results section. BASIC METABOLIC PANEL Routine 12/17/2019 3:09 Re sults for this (7) AM SALES PROJECT COORDINATOR procedure are i n the results section. PROTHROMBIN TIME/INR Routine 12/17/2019 3:09 Res ults for this AM SALES PROJECT COORDINATOR procedure are i n the results section. HEPATIC FUNCTION PANEL Routine 12/17/2019 3:09 R esults for this AM SALES PROJECT COORDINATOR procedure are i n the results section. CORTISOL Routine 12/16/2019 11:34 Results for this PM SALES PROJECT COORDINATOR procedure are i n the results section. VANCOMYCIN LEVEL, Timed 12/16/2019 8:15 Result s for this TROUGH PM SALES PROJECT COORDINATOR procedure are i n the results section. MAGNESIUM Routine 12/16/2019 8:15 Results for this PM SALES PROJECT COORDINATOR procedure are i n the results section. BASIC METABOLIC PANEL Routine 12/16/2019 8:15 Re sults for this (7) PM SALES PROJECT COORDINATOR procedure are i n the results section. POCT-GLUCOSE METER Routine 12/16/2019 6:20 Resul ts for this PM SALES PROJECT COORDINATOR procedure are i n the results section. TRANSFUSION SERVICE 12/16/2019 5:50 REPORT - SCAN PM SALES PROJECT COORDINATOR BLOOD CULTURE Routine 12/16/2019 3:54 Results fo r this PM SALES PROJECT COORDINATOR procedure are i n the results section. BLOOD CULTURE Routine 12/16/2019 3:34 Results fo r this PM SALES PROJECT COORDINATOR procedure are i n the results section. XR CHEST 1 VIEW STAT 12/16/2019 3:24 Results for this PORTABLE/BEDSIDE PM SALES PROJECT COORDINATOR procedure a re in the results section. PT/APTT STAT 12/16/2019 2:38 Results for this PM SALES PROJECT COORDINATOR procedure are i n the results section. AMMONIA Routine 12/16/2019 2:38 Results for this PM SALES PROJECT COORDINATOR procedure are i n the results section. PHOSPHORUS STAT 12/16/2019 2:33 Results for this PM SALES PROJECT COORDINATOR procedure are i n the results section. COMPREHENSIVE Routine 12/16/2019 2:33 Results fo r this METABOLIC PANEL PM SALES PROJECT COORDINATOR procedure ar e in the results section. HGB/HCT (H&H) - STAT STAT 12/16/2019 2:31 Res ults for this LAB PM SALES PROJECT COORDINATOR procedure are i n the results section. GLUCOSE-STAT LAB STAT 12/16/2019 2:31 Results for this PM SALES PROJECT COORDINATOR procedure are i n the results section. POTASSIUM-STAT LAB STAT 12/16/2019 2:31 Resul ts for this PM SALES PROJECT COORDINATOR procedure are i n the results section. SODIUM NA-STAT LAB STAT 12/16/2019 2:31 Resul ts for this PM SALES PROJECT COORDINATOR procedure are i n the results section. BLOOD GAS, ARTERIAL STAT 12/16/2019 2:31 Resu lts for this PM SALES PROJECT COORDINATOR procedure are i n the results section. RRL CRITICAL LABS STAT 12/16/2019 2:31 Result s for this (ABG,NA,K,H&H,GLUCOSE) PM SALES PROJECT COORDINATOR proce dure are in the results section. LACTIC ACID, ARTERIAL Routine 12/16/2019 2:26 Re sults for this PM SALES PROJECT COORDINATOR procedure are i n the results section. MAGNESIUM STAT 12/16/2019 2:18 Results for this PM SALES PROJECT COORDINATOR procedure are i n the results section. CBC (HEMOGRAM ONLY) STAT 12/16/2019 2:18 Resu lts for this PM SALES PROJECT COORDINATOR procedure are i n the results section. PROTHROMBIN TIME/INR Routine 12/16/2019 2:18 Res ults for this PM SALES PROJECT COORDINATOR procedure are i n the results section. CALCIUM, IONIZED STAT 12/16/2019 2:16 Results for this PM SALES PROJECT COORDINATOR procedure are i n the results section. PREPARE LEUKO-REDUCED Routine 12/16/2019 2:01 Re sults for this RBC PM SALES PROJECT COORDINATOR procedure are i n the results section. HGB/HCT (H&H) - STAT STAT 12/16/2019 12:25 Res ults for this LAB PM SALES PROJECT COORDINATOR procedure are i n the results section. GLUCOSE-STAT LAB STAT 12/16/2019 12:25 Results for this PM SALES PROJECT COORDINATOR procedure are i n the results section. POTASSIUM-STAT LAB STAT 12/16/2019 12:25 Resul ts for this PM SALES PROJECT COORDINATOR procedure are i n the results section. SODIUM NA-STAT LAB STAT 12/16/2019 12:25 Resul ts for this PM SALES PROJECT COORDINATOR procedure are i n the results section. BLOOD GAS, ARTERIAL STAT 12/16/2019 12:25 Resu lts for this PM SALES PROJECT COORDINATOR procedure are i n the results section. RRL CRITICAL LABS STAT 12/16/2019 12:25 Result s for this (ABG,NA,K,H&H,GLUCOSE) PM SALES PROJECT COORDINATOR proce dure are in the results section. SURGICALLY OBTAINED OLGA 12/16/2019 12:21 Resu lts for this CULTURE + GRAM STAIN PM SALES PROJECT COORDINATOR procedu re are in the results section. FUNGUS CULTURE + OLGA 12/16/2019 12:21 Results for this SMEAR PM SALES PROJECT COORDINATOR procedure are i n the results section. ANAEROBIC CULTURE OLGA 12/16/2019 12:21 Result s for this PM SALES PROJECT COORDINATOR procedure are i n the results section. AFB CULTURE + SMEAR OLGA 12/16/2019 12:21 Resu lts for this (NON-SPUTUM) PM SALES PROJECT COORDINATOR procedure are i n the results section. HGB/HCT (H&H) - STAT STAT 12/16/2019 10:46 Res ults for this LAB AM SALES PROJECT COORDINATOR procedure are i n the results section. GLUCOSE-STAT LAB STAT 12/16/2019 10:46 Results for this AM SALES PROJECT COORDINATOR procedure are i n the results section. POTASSIUM-STAT LAB STAT 12/16/2019 10:46 Resul ts for this AM SALES PROJECT COORDINATOR procedure are i n the results section. SODIUM NA-STAT LAB STAT 12/16/2019 10:46 Resul ts for this AM SALES PROJECT COORDINATOR procedure are i n the results section. BLOOD GAS, ARTERIAL STAT 12/16/2019 10:46 Resu lts for this AM SALES PROJECT COORDINATOR procedure are i n the results section. PROTHROMBIN TIME/INR STAT 12/16/2019 10:46 Res ults for this AM SALES PROJECT COORDINATOR procedure are i n the results section. CALCIUM, IONIZED STAT 12/16/2019 10:46 Results for this AM SALES PROJECT COORDINATOR procedure are i n the results section. RRL CRITICAL LABS STAT 12/16/2019 10:46 Result s for this (ABG,NA,K,H&H,GLUCOSE) AM SALES PROJECT COORDINATOR proce dure are in the results section. PROTHROMBIN TIME/INR STAT 12/16/2019 7:40 Res ults for this AM SALES PROJECT COORDINATOR procedure are i n the results section. RUPERTO 12/16/2019 7:30 Illness AM SALES PROJECT COORDINATOR LASER EXTRACTION,LEAD 12/16/2019 7:30 Illness AM SALES PROJECT COORDINATOR MAGNESIUM Routine 12/16/2019 5:44 Results for this AM SALES PROJECT COORDINATOR procedure are i n the results section. HEPATIC FUNCTION PANEL Routine 12/16/2019 5:44 R esults for this AM SALES PROJECT COORDINATOR procedure are i n the results section. BASIC METABOLIC PANEL Routine 12/16/2019 5:44 Re sults for this (7) AM SALES PROJECT COORDINATOR procedure are i n the results section. POCT-GLUCOSE METER Routine 12/15/2019 9:24 Resul ts for this PM SALES PROJECT COORDINATOR procedure are i n the results section. ECHOCARDIOGRAM REPORT 12/15/2019 9:23 - SCAN PM SALES PROJECT COORDINATOR BLOOD GAS, ARTERIAL Routine 12/15/2019 5:12 Resu lts for this PM SALES PROJECT COORDINATOR procedure are i n the results section. URINE CULTURE Routine 12/15/2019 5:10 Results fo r this PM SALES PROJECT COORDINATOR procedure are i n the results section. ABORH, MANUAL STAT 12/15/2019 5:09 Results fo r this PM SALES PROJECT COORDINATOR procedure are i n the results section. POCT-GLUCOSE METER Routine 12/15/2019 5:06 Resul ts for this PM SALES PROJECT COORDINATOR procedure are i n the results section. EEG AWAKE AND DROWSY Routine 12/15/2019 4:24 Res ults for this PM SALES PROJECT COORDINATOR procedure are i n the results section. 2D ECHO W/ DOPPLER STAT 12/15/2019 2:23 Resul ts for this (CW/PW/COLOR) PM SALES PROJECT COORDINATOR procedure are in the results section. POCT-GLUCOSE METER Routine 12/15/2019 2:15 Resul ts for this PM SALES PROJECT COORDINATOR procedure are i n the results section. TYPE AND SCREEN, Routine 12/15/2019 2:10 Results for this AUTOMATED PM SALES PROJECT COORDINATOR procedure are i n the results section. BLOOD CULTURE Routine 12/15/2019 2:10 Results fo r this IDENTIFICATION PANEL PM SALES PROJECT COORDINATOR procedu re are in the results section. BLOOD CULTURE Routine 12/15/2019 2:10 Results fo r this PM SALES PROJECT COORDINATOR procedure are i n the results section. BLOOD CULTURE Routine 12/15/2019 2:10 Results fo r this PM SALES PROJECT COORDINATOR procedure are i n the results section. ECG 12-LEAD Routine 12/15/2019 1:08 PM SALES PROJECT COORDINATOR Procedure Note - Interface, External Ris In - 12/15/2019 1:12 PM SALES PROJECT COORDINATOR Ventricular Rate 98 BPM Atrial Rate 98 BPM QRS Duration 166 ms Q-T Interval 482 ms QTC Calculation(Bazett) 615 ms P [place] 62 degrees R [place] 19 degrees T [place] 45 degrees Ventricular-paced rhythm Biventricular pacemaker dete cted Abnormal ECG No previous ECGs available ECG 12-LEAD OLGA 12/15/2019 1:08 PM SALES PROJECT COORDINATOR Resu lts for this procedure are i n the results section . POCT-GLUCOSE METER Routine 12/15/2019 7:41 AM SALES PROJECT COORDINATOR Results for this procedure are i n the results section . CBC W/PLT COUNT & AUTO Routine 12/15/2019 2:47 AM SALES PROJECT COORDINATOR Results for this DIFFERENTIAL procedure are i n the results section . LIPID PANEL Routine 12/15/2019 2:47 AM SALES PROJECT COORDINATOR Resu lts for this procedure are i n the results section . CBC W/PLT COUNT & AUTO Routine 12/15/2019 2:47 AM SALES PROJECT COORDINATOR Results for this DIFFERENTIAL procedure are i n the results section . PROTHROMBIN TIME/INR Routine 12/15/2019 2:47 AM SALES PROJECT COORDINATOR Results for this procedure are i n the results section . HEPATIC FUNCTION PANEL Routine 12/15/2019 2:47 AM SALES PROJECT COORDINATOR Results for this procedure are i n the results section . BASIC METABOLIC PANEL (7) Routine 12/15/2019 2:47 AM SALES PROJECT COORDINATOR Results for this procedure are i n the results section . after 07/04/2019 Results ARRYTHMIA IMPLANT REPORT - SCAN (02/01/2020 [...] (H)Comment: : TESTED 70 - 110 mg/dL [facility] [address] [place] [address] [facility] [employer], [id number]: City Tax Auditor/Senior Planning Analyst ID = [id number] for LISBET WATTERS Specimen Blood Performing Organization Address City/State/Zipcode Phone Number [address] [phone] CENTER CBC (hemogram only) (01/27/2020 4:57 AM CDT)Only the most recent of10 results within the time period is included. WBC 4.4 3.5 - 10.5 K/L [facility] RBC 3.04 (L) 4.63 - 6.08 M/L [facility] Hemoglobin 8.2 (L) 13.7 - 17.5 GM/DL [facility] Hematocrit 29.4 (L) 40.1 - 51.0 % [facility] MCV 96.7 (H)Comment: Discordant 79.0 - 92.2 fL [facility] MCV results compared to MEDICAL CENTER previous results; clinical correlation required. MCH 27.0 25.7 - 32.2 pg [facility] MCHC 27.9 (L) 32.3 - 36.5 GM/DL [facility] RDW 16.1 (H) 11.6 - 14.4 % [facility] Platelets 199 150 - 450 K/CU MM [facility] MPV 9.2 (L) 9.4 - 12.4 fL [facility] [place] nRBC 0 0 - 0 /100 WBC [facility] Specimen Blood Performing Organization Address City/[facility]/Zipcode Phone Number [facility] [address] [place] [address] CENTER Magnesium (01/27/2020 4:57 AM CDT)Only the most recent of28 resultswithin the time period is included. Magnesium 2.1 1.6 - 2.6 mg/dL [facility] Specimen Blood Narrative Performed At City Tax Auditor ID - LV Ramirez [facility] Performing Organization Address City/[facility]/Zipcode Phone Number [address] [address] [place] Basic Metabolic Panel (01/27/2020 4:57 AM CDT)Only the most recent of24 results within the time period is included. Sodium 148 (H) 136 - 145 meq/L [facility] Potassium 3.6 3.5 - 5.1 meq/L [facility] Chloride 119 (H) 98 - 107 meq/L [facility] CO2 24 22 - 29 meq/L [facility] BUN 23 (H) 7 - 21 mg/dL [facility] Creatinine 0.78 0.57 - 1.25 mg/dL [facility] Glucose 123 (H) 70 - 105 mg/dL [facility] Calcium 9.0 8.4 - 10.2 mg/dL [facility] EGFR 97Comment: ESTIMATED GFR IS mL/min/1.73 sq m [facility] NOT ACCURATE CREATININE [facility] CLEARANCE IN PREDICTING GLOMERULAR FILTRATION RATE. ESTIMATED GFR IS NOT APPLICABLE FOR DIALYSIS PATIENTS. Specimen Blood Narrative Performed At City Tax Auditor ID - LV L [facility] Performing Organization Address City/[facility]/Zipcode Phone Number [address] [address] [place] REPORT OF PROCEDURE - ENDOSCOPY URL (01/26/2020 [...] Troponin I <0.01 0.00 - 0.03 ng/mL [facility] Specimen Blood Narrative Performed At Troponin I (TnI) levels must be interpreted [facility] in the context of the presenting symptoms and the clinical findings. Elevated TnI levels indicate myocardial damage, but are not specific for ischemic heart disease. Elevated TnI levels are seen in patients with other cardiac conditions (including myocarditis and congestive heart failure), and slight TnI elevations occur in patients with other conditions, including sepsis, renal failure, acidosis, acute neurological disease, and persistent tachyarrhythmia. City Tax Auditor ID - DB Performing Organization Address City/State/Zipcode Phone Number [facility] [address] [place] [address] [place] CBC with platelet count + automated diff (01/25/2020 5:26 AM CDT)Only the most recent of18 resultswithin the time period is included. WBC 5.3 3.5 - 10.5 K/L [facility] H [facility] RBC 3.23 (L) 4.63 - 6.08 M/L [facility] Hemoglobin 8.8 (L) 13.7 - 17.5 GM/DL [facility] Hematocrit 31.8 (L) 40.1 - 51.0 % [facility] MCV 98.5 (H) 79.0 - 92.2 fL [facility] MCH 27.2 25.7 - 32.2 pg [facility] MCHC 27.7 (L) 32.3 - 36.5 GM/DL [facility] RDW 16.7 (H) 11.6 - 14.4 % [facility] Platelets 251 150 - 450 K/CU MM [facility] MPV 9.7 9.4 - 12.4 fL [facility] nRBC 0 0 - 0 /100 WBC [facility] % Neutros 71 % [facility] % Lymphs 16 % [facility] % Monos 9 % [facility] % Eos 2 % [facility] % Baso 1 % [facility] # Neutros 3.76 1.78 - 5.38 K/L [facility] # Lymphs 0.85 (L) 1.32 - 3.57 K/L [facility] # Monos 0.49 0.30 - 0.82 K/L [facility] # Eos 0.11 0.04 - 0.54 K/L [facility] # Baso 0.04 0.01 - 0.08 K/L [facility] Immature Granulocytes-Relative 2 (H) 0 - 1 % C HI [facility] Specimen Blood Performing Organization Address City/[facility] Phone Number [facility] [address] [place] [address] CENTER Creatine Kinase (CK) (01/25/2020 5:26 AM CDT)Only the most recent of5 results within the time period is included. Total CK 30 29 - 200 U/L [facility] Specimen Blood Narrative Performed At City Tax Auditor ELLY - ADAMARIS York [facility] MED ICAL CENTER Performing Organization Address City/[facility]/Zipcode Phone Number [facility] [address] [place] [address] CENTER XR chest 1 view portable / bedside (01/25/2020 12:23 AM CDT)Only the most recent of16 resultswithin the time period is included. Specimen Narrative Performed At FINAL REPORT [facility] Chest one view. Clinical history: r/o [...] Glucose 139 (H) 70 - 105 mg/dL [facility] Specimen Blood Narrative Performed At City Tax Auditor ID - [id number] [facility] Performing Organization Address City/State/Zipcode Phone Number [facility] [address] [place] [address] CENTER EKG 12 lead (01/24/2020 10:42 PM CDT)Only the most recent of4 resultswithin the time period is included. Specimen Narrative Performed At Ventricular Rate 77 BPM GE MUSE Atrial Rate 77 BPM P-R Interval 172 ms QRS Duration 164 ms Q-T Interval 446 ms QTC Calculation(Bazett) 504 ms P [place] 5 degrees R [place] 249 degrees T [place] 67 degrees Atrial-sensed ventricular-paced rhythm with occasional Premature ventricular complexes Abnormal ECG Confirmed by MD Stockton Roberto ([id number]) on 2019 3:29:51 PM Procedure Note Interface, External Ris In - 01/27/2020 3:29 PM CDT Ventricular Rate 77 BPM Atrial Rate 77 BPM P-R Interval 172 ms QRS Duration 164 ms Q-T Interval 446 ms QTC Calculation(Bazett) 504 ms P [place] 5 degrees R [place] 249 degrees T [place] 67 degrees Atrial-sensed ventricular-paced rhythm w ith occasional Premature ventricular complexes Abnormal ECG Confirmed by MD Stockton Roberto ([id number]) on 01/27/2020 3:29:51 PM Performing Organization Address City/State/Zipcode Phone Number GE MUSE Limited 2D Echocardiogram (01/24/2020 7:00 PM CDT) Ejection Fraction [facility] ECHO HEAR TLAB MKCKESSON [facility] Specimen Narrative Performed At Transthoracic Echocardiography Report (T TE) [facility] ECHO HEARTLAB MKCKESSON [facility] Demographics Patient Name Renny CHAMBERLAIN of Study 01/24/2020 [id number] Gender Male Visit Number [id number] RaceCauc [id number] Room Number 6108 Number Date of Birth1945 Referring Physician Age74 year(s) 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 Left pleural effusion appears [id number] in size. Signature Findings Left Ventricle Mild [...] Study 01/24/2020 Gen micky Male Visit Number [id number] Rac e Ariana m Number [id number] Number [...] 11-15mmHg . Left pleural eff usion appears [id number] in size. Performing Organization Address City/State/Zipcode Phone Number [facility] ECHO HEARTLAB MKCKESSON CPACS PT/aPTT (01/20/2020 4:49 AM CDT)Only the most recent of6 resultswithin the time period is included. Protime 15.9 (H) 11.9 - 14.2 seconds [facility] INR 1.3 <=5.9 [facility] PTT 33.6 22.5 - 36.0 seconds [facility] Specimen Blood Narrative Performed At [facility] 03/24/2019: PT Reference Range [facility] Change New: 11.9-14.2Previous: 11.7-14.7 RECOMMENDED COUMADIN/WARFARIN INR THERAPY RANGES STANDARD DOSE: 2.0-3.0Includes: PROPHYLAXIS for venous thrombosis, systemic embolization; TREATMENT for venous thrombosis and/or pulmonary embolus. HIGH RISK: Target INR is 2.5-3.5 for patients wiht mechanical heart valves. Performing Organization Address City/State/Zipcode Phone Number [address] [address] C[place] Hepatic function panel (01/20/2020 4:49 AM CDT)Only the most recent of6 results within the time period is included. Protein, Total 6.1 6.0 - 8.3 gm/dL [facility] Albumin 2.3 (L) 3.5 - 5.0 g/dL [facility] Total Bilirubin 0.4 0.2 - 1.2 mg/dL [facility] Bilirubin, Direct 0.3 0.1 - 0.5 mg/dL [facility] Alkaline Phosphatase 93 40 - 150 U/L [facility] AST 21 5 - 34 U/L [facility] ALT 23 6 - 55 U/L [facility] Specimen Blood Narrative Performed At City Tax Auditor ID - ADAMARIS York [facility] CENTER Performing Organization Address City/State/Zipcode Phone Number [facility] [address] [place] [address] CENTER aPTT (01/19/2020 12:22 PM CDT)Only the most recent of37 resultswithin the time period is included. PTT 53.1 (H) 22.5 - 36.0 seconds [facility] Specimen Blood Performing Organization Address City/[facility]/Zipcode Phone Number [facility] [address] [place] [address] chest without IV contrast (01/19/2020 10:53 AM CDT)Only the most recent of2 resultswithin the time period is included. Specimen Narrative Performed At FINAL REPORT [facility] CT Chest without contrast History: Pleural effusion [...] MD Report Verified Date/Time:01/19/2020 12:17:48 Reading Location: [facility] Mammo Reading Ro om Procedure Note Interface, [...] Verified Date/Time: 01/19/2020 1 2:17:48 Reading Location: [facility] Mammo Reading Ro om Performing Organization Address City/State/Zipcode Phone Number RIS C-Reactive Protein (01/19/2020 4:59 AM CDT) CRP 9.08 (H) 0.00 - 0.50 mg/dL [facility] CENTER Specimen Blood Narrative Performed At City Tax Auditor ID - ADAMARIS York [facility] ICAL CENTER Performing Organization Address City/State/Zipcode Phone Number [facility] [address] [place] [address] CENTER US thoracentesis (01/18/2020 4:56 PM CDT)Only the most recent of2 resultswithin the time period is included. Specimen Narrative Performed At FINAL REPORT [facility] Exam:Ultrasound guided thoracentesis Clinical History:Left-sided Pleural Effusion Contact Lens Blocker And Cutter: Cassidy Parra PA-C Supervising Physician: Jaylen Newton [...] MD Report Verified Date/Time:01/19/2020 12:40:39 Reading Location: [facility] [id number] [facility] Reading Room Procedure Note Interface, External Ris In - 01/19/2020 12:42 PM CDT FINAL REPORT Exam: Ultrasound guided thoracentesis Clinical History: Left-sided Pleural Ef fusion Contact Lens Blocker And Cutter: Cassidy Parra PA-C Supervising Physician: Jaylen Newton Consent: Benefits and risks were explai dacia to the patient who gave consent to the procedure. Complication: None Immediate Procedure: The [facility] in [facility] lateral decubitus position. The left posterior chest [...] Verified Date/Time: 01/19/2020 1 2:40:39 Reading Location: [facility] [id number] [facility] Reading Room Performing Organization Address City/[facility] Phone Number [facility] Blood Culture - Routine (Right Venipuncture) (01/18/2020 4:50 PM CDT)Only the most recent of19 resultswithin the time period is included. Result No growth in 5 days [facility] Specimen Blood Performing Organization Address [facility] Phone Number [address] [address] [place] Body fluid culture + gram stain (01/18/2020 4:21 PM CDT)Only the most recent of 2 resultswithin the time period is included. Result No growth [facility] Gram Stain Result <1+ WBCs [facility] Gram Stain Result No organisms seen [facility] Specimen Body Fluid Performing Organization Address [facility] Phone Number [address] [address] [place] Fungus culture + smear (01/18/2020 4:21 PM CDT)Only the most recent of3 resultswithin the time period is included. Result No fungus isolated in [address] [facility] Fungus Smear No fungi seen [facility] Specimen Body Fluid Performing Organization Address [facility] Phone Number [facility] MEDICAL [address] [place] [address] CENTER Protein, Total, Pleural Fluid (01/18/2020 4:20 PM CDT) PROTEIN, TOTAL, PLEURAL FLUID 3.5 QU [facility] Specimen Body Fluid Performing Organization Address [facility] Phone Number [facility] [place] [place] [address] [facility] [address] Lactate Dehydrogenase (LD), Pleural Fluid (01/18/2020 4:20 PM CDT) Lactate Dehydrogenase 134 See Note: U/L [facility] (LD), Pleural Fluid Comment: INC[facility]PORATED Reference Range: TRANSUDATE:<113 EXUDATE: >113 Specimen Body Fluid Narrative Performed At Performing Lab [facility] [employer] [address] [address] [place] [address] Winter Encinas MD, PhD, SUZETTE Performing Organization Address [facility] Phone Number [facility] [place] [place] [address] INCORPORATED [address] [employer] [employer] Glucose Pleural Fluid (01/18/2020 4:20 PM CDT)Only the most recent of2 results within the time period is included. Glucose, Pleural Fluid 99 mg/dL [facility] Comment: INCORPORATED Reference range approximates that found in serum . Specimen Body Fluid Narrative Performed At Performing Lab [facility] [employer] [address] [address] [place] [address] Winter Encinas MD, PhD, SUZETTE Performing Organization Address [facility] Number [facility] [place] [place] [address] [employer]OR[address]ATED [address] [employer] Body fluid cell count with differential (01/18/2020 4:20 PM CDT)Only the most recent of2 resultswithin the time period is included. Appearance Slightly Cloudy (A) Clear [facility] Color Anitha (A) Colorless, Straw [facility] RBCs 29,000 (H) <=1 /cu mm [facility] Adjusted WBC Count 901 (H) <=5 /cu mm [facility] HEALTH [facility] Lining Cells 9 (H) <=1 /cu mm [facility] % Segs 55 % [facility] % Lymphs 27 % [facility] % Monos 18 % [facility] % Eos 0 % [facility] % Baso 0 % [facility] Container Body Fluid EDTA Tube [facility] Specimen Body Fluid Performing Organization Address City/State/Zipcode Phone Number [facility] [address] [place] [address] CENTER Cytology (01/18/2020 4:20 PM CDT) Case Report Medical Cytology Report Case: [id number] [facility] Authorizing Provider:Sara Farfan MD Collected: 01/18/2020 04:20 PM [facility] Order[address]: [address]:01/19/2020 09:12 AM Pathologist: Samra Coley MD Specimen:Pleural, Left DIAGNOSIS PLEURAL, LEFT, FLUID (CYTOSPINS): [facility] - NEGATIVE FOR MALIGNANCY [facility] - INCREASED NEUTROPHILS PRESENT Signing Pathologist Direct Phone Line: CPT Code(s) 60594 [facility] ER CLINICAL DATA Left pleural effusion; [facility] admitted on 01/17/2020 w/ [facility] history of HTN, HLD, CAD, obesity, SSS (pacemaker dependent), chronic HFrEF s/p Bi-V ICD (upgrade 2015) who presents from [facility] after aspiration event and for replacement of his pacemaker SPECIMEN SOURCE LEFT PLEURAL FLUID [facility] ER GROSS DESCRIPTION Received 800 ml brown fluid [facility] Prepared 4 cytospins [facility] Collected: [id number] Received: [id number] STATEMENT OF ADEQUACY Satisfactory [facility] ER Gross assessment was [facility] performed at [place], Department of [facility] MEDIC[facility] Pathology, [address] [place] [address], Technical component was [facility] performed at [place], Department of [facility] Pathology, [address] [place] [address], Professional component was [facility] performed at [place], Department of [facility] Pathology, [address] [place] [address], Specimen Body Fluid Performing Organization Address City/[facility] Centercode Phone Number [address] [address] [place] Lactate dehydrogenase (LDH) (01/18/2020 4:10 AM CDT) LDH 145 125 - 220 U/L [facility] Specimen Blood Narrative Performed At City Tax Auditor ID - ADAMARIS M [facility] Performing Organization Address City/[facility] Centercode Phone Number [address] [address] [place] Platelet count (01/17/2020 9:22 PM CDT) Platelets 168 150 - 450 K/CU MM [facility] Specimen Blood Narrative Performed At City Tax Auditor ID - [id number] [facility] Performing Organization Address City/[facility] Cent[facility]ode Phone Number [address] [address] [place] Calcium, Ionized (12/30/2019 4:06 AM SALES PROJECT COORDINATOR)Only the most recent of6 resultswithin the time period is included. Calcium, Ion 1.24 1.12 - 1.27 mmol/L [facility] pH, Blood 7.53 [facility] Specimen Blood Performing Organization Address City/State/Zipcode Phone Number [facility] [address] [place] [address] CENTER Phosphorus (12/30/2019 4:06 AM SALES PROJECT COORDINATOR)Only the most recent of5 resultswithin the time period is included. Phosphorus 2.9 2.3 - 4.7 mg/dL [facility] Specimen Blood Narrative Performed At City Tax Auditor ID - TRAN [place] [facility] Performing Organization Address City/State/Zipcode Phone Number [facility] [address] [place] [address] [place] Comprehensive metabolic panel (12/30/2019 4:06 AM SALES PROJECT COORDINATOR)Only the most recent of5 resultswithin the time period is included. Protein, Total 6.1 6.0 - 8.3 gm/dL [facility] ER Albumin 2.0 (L) 3.5 - 5.0 g/dL [facility]TH [facility] ER Alkaline Phosphatase 95 40 - 150 U/L [facility] ER Total Bilirubin 0.5 0.2 - 1.2 mg/dL [facility] ER Sodium 151 (H) 136 - 145 meq/L [facility] Potassium 3.6 3.5 - 5.1 meq/L [facility] Chloride 113 (H) 98 - 107 meq/L [facility] ER CO2 30 (H) 22 - 29 meq/L [facility] ER BUN 55 (H) 7 - 21 mg/dL [facility] Creatinine 1.40 (H) 0.57 - 1.25 mg/dL [facility] ER Glucose 151 (H) 70 - 105 mg/dL [facility] ER Calcium 9.4 8.4 - 10.2 mg/dL [facility] H [facility] MEDICAL [facility] ER AST 38 (H) 5 - 34 U/L [facility] HE ALTH [facility] ER ALT 30 6 - 55 U/L [facility] HE ALTH [facility] ER EGFR 49Comment: ESTIMATED GFR mL/min/1.73 sq m [facility] IS NOT ACCURATE [facility] CREATININE CLEARANCE IN PREDICTING GLOMERULAR FILTRATION RATE. ESTIMATED GFR IS NOT APPLICABLE FOR DIALYSIS PATIENTS. Specimen Blood Narrative Performed At City Tax Auditor ID - TRAN W [facility] Performing Organization Address City/[facility]/Zipcode Phone Number [address] [address] [place] Potassium (12/29/2019 9:54 PM SALES PROJECT COORDINATOR)Only the most recent of10 resultswithin the time period is included. Potassium 3.5Comment: Specimen slightly 3.5 - 5.1 meq/L [facility] hemolyzed [facility] Specimen Blood Narrative Performed At City Tax Auditor ID - LV L [facility] Performing Organization Address City/[facility]/Zipcode Phone Number [address] [address] [place] B-type Natriuretic Factor (BNP) (12/29/2019 4:21 AM SALES PROJECT COORDINATOR)Only the most recent of 2 resultswithin the time period is included. BNP 562 (H) 0 - 100 pg/mL [facility] Specimen Blood Narrative Performed At City Tax Auditor ID - TRAN W [facility] Performing Organization Address City/[facility]/Zipcode Phone Number [address] [address] [place] TRANSFUSION SERVICE REPORT - SCAN (12/28/2019 6:13 PM SALES PROJECT COORDINATOR)Only the most recent of6 resultswithin the time period is included. Narrative Performed At This result has an attachment that is no t available. Blood gas, arterial (12/28/2019 4:35 AM SALES PROJECT COORDINATOR)Only the most recent of17 results within the time period is included. pH, Arterial 7.54 (H) 7.35 - 7.45 [facility] pCO2, Arterial 36 35 - 45 mmHg [facility] pO2, Arterial 159 (H) 80 - 90 mmHg [facility] O2 Sat, Arterial 99.2 (H) 96.0 - 97.0 % [facility] HCO3, Arterial 30 (H) 21 - 29 mmol/L [facility] Base Excess, Arterial 7.0 (H) -2.0 - 3.0 mmol/L [facility] Patient Temperature 37.0 C [facility] FIO2 40.0 % [facility] Specimen Blood, Arterial Performing Organization Address [facility] [place] [address] CENTER Prepare Leuko-Red RBC (12/27/2019 11:54 PM SALES PROJECT COORDINATOR)Only the most recent of4 results within the time period is included. CROSSMATCH COMPATIBLE SAFETRACE TX Unit ABO O Pos SAFETRACE TX UNIT NUMBER [id number] SAFETRACE TX Status TX_TIMEINCHART SAFETRACE TX Blood Bank Product RED BLOOD CELLS SAFETRACE TX PRODUCT CODE [id number] SAFETRACE TX Specimen Other Performing Organization Address [facility] Phone Number SAFETRACE TX Hemoglobin and hematocrit (12/27/2019 4:21 AM SALES PROJECT COORDINATOR)Only the most recent of6 resultswithin the time period is included. Hemoglobin 7.6 (L) 13.7 - 17.5 GM/DL [facility] Hematocrit 24.1 (L) 40.1 - 51.0 % [facility] Specimen Blood Narrative Performed At City Tax Auditor ID - [id number] [facility] Performing Organization Address City/[facility] Cent[facility]ode Phone Number [address] [address] CENTER Transfuse Leuko-Red RBC (12/26/2019 1:49 PM SALES PROJECT COORDINATOR)Only the most recent of4 resultswithin the time period is included.Type and screen, automated (12/26/2019 9:03 AM SALES PROJECT COORDINATOR)Only the most recent of3 resultswithin the time period is included. ABO/RH AUTOMATED (BEAKER) O POSITIVE [facility] Ab Scrn NEGATIVE [facility] Specimen Blood Performing Organization Address [facility] Centercode Phone Number [address] [address] Sodium, random urine (12/25/2019 6:10 PM SALES PROJECT COORDINATOR) Sodium Urine <20 meq/L [facility] Specimen Urine Narrative Performed At Reference Range: No Normals [facility] City Tax Auditor ID - KONRAD Performing Organization Address [facility] Centercode Phone Number [address] [address] [place] Protein, random urine (12/25/2019 6:10 PM SALES PROJECT COORDINATOR) Protein, Urine 22 (H) 0 - 14 mg/dL [facility] Specimen Urine Narrative Performed At City Tax Auditor ELLY SILVESTRE [facility] Performing Organization Address City/[facility] Centercode Phone Number [address] [address] CENTER Creatinine, random urine (12/25/2019 6:10 PM SALES PROJECT COORDINATOR) Creatinine, Ur 51.6 mg/dL [facility] Specimen Urine Narrative Performed At Reference Range: No Normals [facility] City Tax Auditor ID - KONRAD Performing Organization Address [facility]/Zipcode Phone Number [address] [address] CENTER Eosinophil smear (12/25/2019 6:10 PM SALES PROJECT COORDINATOR) Eosinophil Smear No EOS seen No EOS seen [facility] Specimen Urine Performing Organization Address City/State/Zipcode Phone Number [facility] [address] [place] [address] [place] US renal complete (12/25/2019 6:31 AM SALES PROJECT COORDINATOR) Specimen Narrative Performed At FINAL REPORT RIS [...] MD Report Verified Date/Time:12/25/2019 10:05:41 Reading Location: [address] Reading Room Procedure Note Interface, External Ris In - 12/25/2019 10:07 AM SALES PROJECT COORDINATOR FINAL REPORT Comparison: CT of the abdomen [...] Verified Date/Time: 12/25/2019 1 0:05:41 Reading Location: [address] Reading Room Performing Organization Address City/State/Zipcode Phone Number RIS Complement Component C3 (12/25/2019 4:42 AM SALES PROJECT COORDINATOR) C3 Complement 142 82 - 193 mg/dL [facility] Specimen Blood Narrative Performed At City Tax Auditor [facility] Jaylen [facility] Performing Organization Address City/[facility]/Zipcode Phone Number [address] [address] CENTER Complement Component C4 (12/25/2019 4:42 AM SALES PROJECT COORDINATOR) C4 Complement 28 15 - 57 mg/dL [facility] Specimen Blood Narrative Performed At City Tax Auditor ID - ADAMARIS York [facility] Performing Organization Address City/[facility] Centercode Phone Number [address] [address] CENTER EEG AWAKE AND DROWSY (12/24/2019 3:37 PM SALES PROJECT COORDINATOR) Specimen Narrative Performed At [facility] EEG REPORT GE RIS DATE(s) OF TEST: 12/16/2019 DATE OF REPORT: 12/16/2019 ACC: [id number] [id number] Start time/date: 15:16 Stop time/date: 15:37 ICD-10: R56.9 CPT Code: 51566 HISTORY:74 year old man with encepha lopathy, [...] FACFAHAD, FAAN, PHONG S Professor of Neurology, [facility] Director, [facility] Comprehensiv e Epilepsy Center Head, Micah Matias Neurophysiology Lab Procedure Note Interface, External Ris In - 12/24/2019 5:26 PM SALES PROJECT COORDINATOR [facility] EEG REPORT DATE(s) OF TEST: 12/16/2019 DATE OF REPORT: 12/16/2019 ACC: [id number] [facility] [id number] Start time/date: 15:16 Stop time/date: 15:37 ICD-10: R56.9 CPT Code: 50564 HISTORY: 74 year old man with encephalo [...] FACFAHAD, DAVIDN, PHONG S Professor of Neurology, [facility] Director, [facility] Epilepsy Center Head, Micah [facility] Neurophysiology Lab Performing Organization Address City/[facility]/Zipcode Phone Number GE RIS Sputum Culture + Gram Stain (12/24/2019 2:05 PM SALES PROJECT COORDINATOR) Result See comment [facility] Gram Stain Result 1+ WBCs [facility] Gram Stain Result 0-5 epithelial cells [facility] Gram Stain Result <1+ gram positive cocci in [facility] Gram Stain Result <1+ budding yeast [facility] Gram Stain Result <1+ gram variable coccobacilli [facility] Specimen Sputum Narrative Performed At 1+ Yeast [facility] No Normal respiratory juan present Performing Organization Address City/[facility]/Zipcode Phone Number [facility] [address] [place] [address] CENTER Lactic Acid, Arterial (12/24/2019 3:24 AM SALES PROJECT COORDINATOR)Only the most recent of3 results within the time period is included. Lactate, Art 1.9 0.5 - 2.2 mmol/L [facility] Specimen Blood, Arterial Narrative Performed At City Tax Auditor ID - LV Ramirez [facility] Performing Organization Address City/State/Zipcode Phone Number [facility] [address] [place] [address] CENTER NM PET/CT Whole Body Initial (12/23/2019 6:12 PM SALES PROJECT COORDINATOR) Specimen Narrative Performed At FINAL REPORT Krossover PROCEDURE: FDG PET/CT for inflam mation CPT CODE:78827 INDICATION:FDG PET/CT was ob tained localize persistent [...] External Ris In - 12/23/2019 7:39 PM SALES PROJECT COORDINATOR FINAL REPORT PROCEDURE: FDG PET/CT for inflammati on CPT CODE: 34721 INDICATION: FDG PET/CT was obtained localize persistent [...] Number GE RIS Cortisol (12/23/2019 1:37 PM SALES PROJECT COORDINATOR)Only the most recent of2 resultswithin the time period is included. Cortisol, Total 22.9 (H) 3.7 - 19.4 ug/dL [facility] Specimen Blood Narrative Performed At City Tax Auditor ID - KARL M [facility] Performing Organization Address City/[facility]/Zipcode Phone Number [place] [phone] [place] [address] CENTER Respiratory Panel [facility] (12/23/2019 1:31 PM SALES PROJECT COORDINATOR) Human Metapneumovirus Not detected Not detected, [facility] [employer] [facility] Rhinovirus Not detected Not detected, [facility] [employer] [facility] MED[facility] Influenza A Not detected Not detected, [facility] [employer] [facility] MED[facility] INFLUENZA A (NO SUBTYPE) [facility] Influ[facility] A subtype H1 [facility] MED[facility] Influenza A [facility]type H3 [facility] MEDICAL [facility] Influenza A Subtype H1-2009 [facility] MEDICAL [facility] Influenza B Not detected Not detected, [facility] [employer] [facility] Respiratory Syncytial Virus Not detected Not detected, [facility] [employer] [facility] MED[facility] Parainfluenza Virus 1 Not detected Not detected, [facility] [employer] [facility] Parainfluenza Virus 2 Not detected Not detected, [facility] [employer] [facility] Parainfluenza virus 3 Not detected Not detected, [facility] [employer] [facility] Parainfluenza Virus 4 Not detected Not detected, [facility] [employer] [facility] Adenovirus Not detected Not detected, [facility] [employer] [facility] Coronavirus 229E Not detected Not detected, [facility] [employer] [facility] Coronavirus HKU1 Not detected Not detected, [facility] [employer] [facility] Coronavirus NL63 Not detected Not detected, [facility] [employer] [facility] Coronavirus OC43 Not detected Not detected, [facility] Bordetella Pertussis Not detected Not detected, [facility] Chlamydophila Pneumoniae Not detected Not detected, [facility] [employer] [facility] Mycoplasma Pneumoniae Not detected Not detected, [facility] [employer] [facility] Specimen Nasopharyngeal Narrative Performed At Other viruses and bacteria not targeted by [facility] this PCR panel cannot be excluded; therefore clinical correlation and follow up of serology, culture results, and other molecular studies is required. The results are not intended to be used as the sole means for clinical diagnosis or patient management decisions. This sample was tested at the [facility] using the [employer] FilmArray Respiratory Panel. It is FDA cleared and has been verified and approved by the [facility] for clinical use on nasopharyngeal swab specimens. The performance of the FilmArray RP has not been established in individuals who received influenza vaccine.Recent administration of a nasal influenza vaccine may cause false positive results for Influenza A and/or Influenza B. Performing Organization Address City/State/Zipcode Phone Number [facility] [address] [place] [address] CENTER Urinalysis w/Microscopic + Reflex to Culture (12/23/2019 9:21 AM SALES PROJECT COORDINATOR) Color, UA Yellow [facility] Clarity, UA Clear [facility] Specific [place], UA 1.024 1.001 - 1.035 [facility] pH, UA 5.5 5.0 - 8.0 [facility] Protein, UA 20 mg/dL (A) Negative [facility] Glucose, UA Negative Negative [facility] Ketones, UA Negative Negative [facility] Bilirubin, UA Negative Negative [facility] Blood, UA Trace (A) Negative [facility] Nitrite, UA Negative Negative [facility] Leukocytes, UA Negative Negative [facility] Urobilinogen, UA 4.0 (H) 0.2 - 1.0 mg/dL [facility] RBC, UA 5 /HPF [facility] WBC, UA 2 /HPF [facility] Bacteria, UA Occasional [facility] Mucus Occasional [facility] Hyaline Casts, UA 1 /LPF [facility] Specimen Source [facility] Specimen Urine Narrative Performed At City Tax Auditor ID - [auto] [facility] City Tax Auditor ID - tech Performing Organization Address City/State/Zipcode Phone Number [facility] [address] [place] [address] CENTER XR abdomen / KUB 1 view (12/22/2019 3:03 PM SALES PROJECT COORDINATOR) Specimen Narrative Performed At FINAL REPORT GE RIS Abdomen date 12/22/2019 Comment:Frontal view of the abdomen demonstrates a nasogastric tube present with tip noted in the body of th e stomach. Signed: Edilberto Gregory MD Report Verified Date/Time:12/22/2019 16:39:35 Reading Location: [address] Room Procedure Note Interface, External Ris In - 12/22/2019 4:41 PM SALES PROJECT COORDINATOR FINAL REPORT Abdomen date 12/22/2019 Comment: Frontal view of the abdomen de monstrates a nasogastric tube present with tip noted in the body of th e stomach. Signed: Edilberto Gregory MD Report Verified Date/Time: 12/22/2019 1 6:39:35 Reading Location: [address] Room Performing Organization Address City/[facility] Centercode Phone Number RIS Protein, body fluid (12/21/2019 5:36 PM SALES PROJECT COORDINATOR) Protein, Fluid 2.3 g/dL [facility] [employer] TORY Specimen Body Fluid Narrative Performed At This result has an attachment that is no t available. Absence of reference range indicates that normals have not been defined. [facility] Assay performance has not been validated for this type of specimen. Performing Organization Address [facility] Centercode Phone Number [facility] [address] [place] [address] Lactate dehydrogenase (LDH), body fluid (12/21/2019 5:36 PM SALES PROJECT COORDINATOR) LDH, Fluid 235 U/L [facility] [employer] Specimen Body Fluid Narrative Performed At This result has an attachment that is no t available. Absence of reference range indicates that normals have not been defined. [facility] Assay performance has not been validated for this type of specimen. Performing Organization Address [facility] Centercoal Phone Number [facility] [address] [address] Prothrombin time/INR (12/21/2019 10:51 AM SALES PROJECT COORDINATOR)Only the most recent of6 results within the time period is included. Protime 16.3 (H) 11.9 - 14.2 seconds [facility] INR 1.3 <=5.9 [facility] Specimen Blood Narrative Performed At Effective 03/24/2019: PT Reference Range [facility] Change New: 11.9-14.2Previous: 11.7-14.7 RECOMMENDED COUMADIN/WARFARIN INR THERAPY RANGES STANDARD DOSE: 2.0-3.0Includes: PROPHYLAXIS for venous thrombosis, systemic embolization; TREATMENT for venous thrombosis and/or pulmonary embolus. HIGH RISK: Target INR is 2.5-3.5 for patients wiht mechanical heart valves. Performing Organization Address City/State/Zipcode Phone Number [facility] [address] [place] [address] CENTER Blood Culture Panel(BioFire) (12/20/2019 10:47 AM SALES PROJECT COORDINATOR)Only the most recent of2 resultswithin the time period is included. LISTERIA MONOCYTOGENES Not detected Not detected [facility] STAPHYLOCOCCUS Detected (A) Not detected [facility] Comment: [facility] Coagulase negative Staph species (CoNS)- methici llin susceptible CENTER First-line therapy: Cefazoli n or Oxacillin (Oxacillin preferred if CHARGE ACCOUNT IDENTIFICATION CLERK involvement) MecA NOT DETECTED Possible contamination. The likelihood of pathogenicity is increased if the organism is observed in multiple blood cultures obtained from separate venipunctures. Reference Range: Not Detected STAPHYLOCOCCUS AUREUS Not detected Not detected [facility] Streptococcus Not detected Not detected [facility] STREPTOCOCCUS AGALACTIAE Not detected Not detected [facility] (GROUP B) [facility] STREPTOCOCCUS PNEUMONIAE Not detected Not detected [facility] Streptococcus pyogenes (Group Not detected Not detected [facility] A) [facility] ACINETOBACTER BAUMANNII Not detected Not detected [facility] HAEMOPHILUS INFLUENZAE Not detected Not detected [facility] NEISSERIA MENINGITIDIS Not detected Not detected [facility] ENTEROBACTERIACEAE [facility] ENTEROBACTER CLOACOE COMPLEX Not detected Not detected [facility] KLEBSIELLA OXYTOCA Not detected Not detected [facility] KLEBSIELLA PNEUMONIAE Not detected Not detected [facility] PROTEUS [facility] SERRATIA MARCESCENS Not detected Not detected [facility] JAMAL ALBICANS Not detected Not detected [facility] JAMAL GLABRATA Not detected Not detected [facility] JAMAL KRUSEI Not detected Not detected [facility] JAMAL PARAPSILOSIS Not detected Not detected [facility] JAMAL TROPICALIS Not detected Not detected [facility] ESCHERICHIA COLI Not detected Not detected [facility] METHICILLIN-RESISTANCE GENE Not detected Not detected [facility] VANCOMYCIN-RESISTANCE GENE [facility] CARBAPENEM-RESISTANCE GENE [facility] ENTEROCOCCUS Not detected Not detected [facility] PSEUDOMONAS AERUGINOSA Not detected Not detected [facility] Specimen Blood Narrative Performed At Other bacteria and resistance markers not [facility] targeted by this PCR panel cannot be excluded; therefore clinical correlation and follow up of serology, culture results, and other molecular studies is required. The results are not intended to be used as the sole means for clinical diagnosis or patient management decisions. This sample was tested at the [facility] using the [employer] Blood Culture ID Panel. It is FDA cleared and has been verified and approved by the [facility] for clinical use. This laboratory is CLIA-certified and [employer] (CAP)-accredited to perform high complexity testing. Performing Organization Address City/State/Zipcode Phone Number [facility] [address] [place], [place] [phone] CENTER PERIPHERAL VASCULAR REPORT - SCAN (12/18/2019 9:22 PM SALES PROJECT COORDINATOR) Narrative Performed At This result has an attachment that is no t available. Hemoglobin A1c (12/18/2019 4:22 AM SALES PROJECT COORDINATOR) Hemoglobin A1C 5.4 4.3 - 6.1 % [facility] Specimen Blood Performing Organization Address City/State/Zipcode Phone Number [place] [address] [phone] [place] [address] CENTER ECHOCARDIOGRAM REPORT - SCAN (12/17/2019 9:22 PM SALES PROJECT COORDINATOR) Narrative Performed At This result has an attachment that is no t available. Venous doppler arm, left (12/17/2019 8:10 PM SALES PROJECT COORDINATOR) Ejection Fraction [facility] ECHO HEAR TLAB [facility] Specimen Impressions Performed At [facility] ECHO HEARTLAB [facility] Left Impression 1. There is [...] At PV LAB - Upper Extremities Veins [facility] ECHO HEARTLAB [facility] Demographics Patient Renny Bone of Study 12/17/2019 Age 74 Visit [id number] GenderMale Date of 1945 Referring Peter Montenegro Room Number 6107 Physician LAMONTE Model Engine Mechanic Ana Lilia Dyer, RITCHIETPhysician MD Procedure Type [...] External Ris In - 12/18/2019 8:45 AM SALES PROJECT COORDINATOR PV LAB - Upper Extremities Veins Demographics Patient Name RENE CHAMBERLAIN te of Study 12/17/2019 e 74 Visit Number [id number] Ge nder Male Accession Number [id number] Da te of 1945 Referring Peter Montenegro [facility] Number [id number] Physician LAMONTE Model Engine Mechanic Ana Lilia Gregory In terpreting Melony Dyer [...] CPACS Vancomycin level, trough (12/17/2019 2:00 PM SALES PROJECT COORDINATOR)Only the most recent of2 resultswithin the time period is included. Vancomycin Tr 10.8 10.0 - 20.0 ug/mL [facility] Specimen Blood Performing Organization Address City/[facility]/Zipcode Phone Number [facility] [address] [place] [address] brain without IV contrast (12/17/2019 11:15 AM SALES PROJECT COORDINATOR) Specimen Narrative Performed At FINAL REPORT [email or web address] [facility] CT, BRAIN, WITHOUT CONTRAST CLINICAL INDICATION:ams COMPARISON: [...] MD Report Verified Date/Time:12/17/2019 11:48:34 Reading Location: [facility] [address] [place] [address] Procedure Note Interface, External Ris In - 12/17/2019 11:50 AM SALES PROJECT COORDINATOR FINAL REPORT CT, BRAIN, WITHOUT CONTRAST CLINICAL [...] Verified Date/Time: 12/17/2019 1 1:48:34 Reading Location: [facility] [address] [place] [address] Performing Organization Address City/State/Zipcode Phone Number [facility] CT abdomen/pelvis without iv contrast (12/17/2019 11:15 AM SALES PROJECT COORDINATOR) Specimen Narrative Performed At FINAL REPORT [facility] CT of the Chest, abdomen and pelvis [...] MD Report Verified Date/Time:12/17/2019 13:42:11 Reading Location: [facility] C013Y CT Body R [facility] Room Procedure Note Interface, External Ris In - 12/17/2019 2:54 PM SALES PROJECT COORDINATOR FINAL REPORT CT of the Chest, abdomen [...] Verified Date/Time: 12/17/2019 1 3:42:11 Reading Location: [facility] B1 C013Y [address] Body R ding Room Performing Organization Address City/State/Zipcode Phone Number [employer] 2D Echocardiogram (12/17/2019 8:25 AM SALES PROJECT COORDINATOR) Ejection Fraction [facility] ECHO HEAR TLAB [facility] Specimen Narrative Performed At Transthoracic Echocardiography Report (T TE) [facility] ECHO HEARTLAB [facility] [employer] [facility] Demographics Patient RENE Bone Date of Study 12/17/2019 Male Visit [id number] Room Number 6107 Number Date of 1945Referring Physician Freddie ADAME Age 74 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 Clinical History HGB 9.4 HCT 29.1 % HTN, HLD, CAD, OBESITY, AVN DUAL PPM (2006), SUPERVISOR TAPING, BIV-ICD UPGRADE 2015 Height: 72 inches Weight: [...] External Ris In - 12/17/2019 12:21 PM SALES PROJECT COORDINATOR Transthoracic Echocardiography Report (TTE) Demographics Patient Name RENE CHAMBERLAIN Date of S jim 12/17/2019 Gender Male Visit Number [id number] Race Room Numb er 6107 Number Date of 1945 Referring Physician Freddie ADAME Age 74 year(s) Sonograph er Kenton Olivier [facility] Sidewalk Repairer Adan Alaniz Interpret ing Jake Flor MD Physician Procedure Type of Study TTE procedure:LIMITED 2D ECHO CARDIOGRAM (STAT) Indications:Suspected Pericardial condit ions. Clinical History HGB 9.4 HCT 29.1 % HTN, HLD, CAD, OBESITY, AVN DUAL PPM (15 05), SUPERVISOR TAPING, BIV-ICD UPGRADE 2014 Height: 72 inches Weight: [...] of Mary.: 3.93 cm Performing Organization Address [facility] Phone Number [facility] CPA Vitamin B12 and Folate (12/17/2019 3:09 AM SALES PROJECT COORDINATOR) Vitamin B12 767 213 - 816 pg/mL [facility] Folate 5.1 (L) >=7.0 ng/mL [facility] Specimen Blood Narrative Performed At City Tax Auditor ID - ADAMARIS [place] [facility] Performing Organization Address [facility] Phone Number [address] [address] CENTER TSH/Free T4 If Indicated (12/17/2019 3:09 AM SALES PROJECT COORDINATOR) TSH 0.72 0.35 - 4.94 uIU/mL [facility] Specimen Blood Narrative Performed At City Tax Auditor ID - ADAMARIS [place] [facility] Performing Organization Address [facility] Phone Number [facility] [address] [place] [address] CENTER Iron, TIBC, % sat. (without ferritin) (12/17/2019 3:09 AM SALES PROJECT COORDINATOR) Iron 21.0 (L) 40.0 - 160.0 ug/dL [facility] TIBC 115 (L) 250 - 450 ug/dL [facility] Iron % Saturation 18 (L) 20 - 55 % [facility] Specimen Blood Narrative Performed At City Tax Auditor ID - ADAMARIS M [facility] Performing Organization Address City/State/Zipcode Phone Number [address] [address] [place] Lactic acid, venous (12/17/2019 3:09 AM SALES PROJECT COORDINATOR) Lactate, Venous 1.1Comment: Specimen 0.5 - 2.2 mmol/L [facility] slightly hemolyzed [facility] R Specimen Blood Narrative Performed At City Tax Auditor ID - ADAMARIS M [facility] Performing Organization Address City/[facility] Phone Number [address] [address] [place] Reticulocyte count (12/17/2019 3:09 AM SALES PROJECT COORDINATOR) % Retic 2.1 (H) 0.5 - 1.8 % [facility] Specimen Blood Narrative Performed At City Tax Auditor ID - [id number] [facility] Performing Organization Address City/[facility]/Zipcode Phone Number [address] [address] CENTER Ferritin (12/17/2019 3:09 AM SALES PROJECT COORDINATOR) Ferritin 4,442 (H) 5 - 275 ng/mL [facility] Specimen Blood Narrative Performed At City Tax Auditor ID - ADAMARIS M [facility] Performing Organization Address City/[facility]/Zipcode Phone Number [address] [id number] [place] Ammonia (12/16/2019 2:38 PM SALES PROJECT COORDINATOR) Ammonia 30 18 - 72 mol/L [facility] Specimen Blood Narrative Performed At City Tax Auditor ID - BS [facility] Performing Organization Address [facility] Phone Number [address] [address] [place] Potassium-Stat Lab (12/16/2019 2:31 PM SALES PROJECT COORDINATOR)Only the most recent of3 results within the time period is included. Potassium 3.1 (L) 3.6 - 5.5 meq/L [facility] Specimen Blood, Arterial Performing Organization Address [facility] [place] [address] [place] Sodium Na-Stat Lab (12/16/2019 2:31 PM SALES PROJECT COORDINATOR)Only the most recent of3 results within the time period is included. Sodium 134 (L) 135 - 148 meq/L [facility] Specimen Blood, Arterial Performing Organization Address [facility] Phone Number [address] [address] [place] Glucose-Stat Lab (12/16/2019 2:31 PM SALES PROJECT COORDINATOR)Only the most recent of3 resultswithin the time period is included. Glucose 126 (H) 70 - 110 mg/dL [facility] Specimen Blood, Arterial Performing Organization Address [facility] Phone Number [address] [address] [place] HGB/HCT (H&H)-Stat Lab (12/16/2019 2:31 PM SALES PROJECT COORDINATOR)Only the most recent of3 resultswithin the time period is included. Hemoglobin 10.6 (L) 13.0 - 16.8 g/dL [facility] Hematocrit 31.0 (L) 40.0 - 50.0 % [facility] Specimen Blood, Arterial Performing Organization Address City/[facility]/Zipcode Phone Number [address] [address] CENTER AFB culture + smear (non-sputum) (12/16/2019 12:21 PM SALES PROJECT COORDINATOR) Result No acid-fast bacilli isolated in [facility] 42 days CENTER AFB Smear No acid fast bacilli seen [facility] Specimen Wound Performing Organization Address [facility] Phone Number [address] [address] [place] Anaerobic culture (12/16/2019 12:21 PM SALES PROJECT COORDINATOR) Result No anaerobes isolated [facility] Specimen Wound Performing Organization Address [facility] Phone Number [address] [address] CENTER Surgically obtained culture + gram stain (12/16/2019 12:21 PM SALES PROJECT COORDINATOR) Result 1+ Staphylococcus lugdunensis [facility] Gram Stain Result <1+ WBCs [facility] Gram Stain Result <1+ gram positive cocci in [facility] pairs and clusters MEDICAL [...] Vancomycin <=0.5 : Susceptible Performing Organization Address [facility] Cent[facility]ode Phone Number [facility] [address] [place] [address] CENTER ECHOCARDIOGRAM REPORT - SCAN (12/15/2019 9:23 PM SALES PROJECT COORDINATOR) Narrative Performed At This result has an attachment that is no t available. Urine culture (12/15/2019 5:10 PM SALES PROJECT COORDINATOR) Result No growth [facility] Specimen Urine Performing Organization Address City/[facility]/Zipcode Phone Number [facility] [address] [place] [address] CENTER ABORH, manual (12/15/2019 5:09 PM SALES PROJECT COORDINATOR) ABO Grouping O [facility] Rh Factor POS [facility] Specimen Blood Performing Organization Address City/[facility]/Zipcode Phone Number [facility] [address] [place], [place] [id number] EEG AWAKE AND DROWSY (12/15/2019 4:24 PM SALES PROJECT COORDINATOR) Specimen Narrative Performed At DATE OF TEST: 12/15/19 GE RIS DATE OF REPORT: 12/15/19 ACC: [id number] Start: 1603 End: 1624 CPT Code: 55669 ICD-10: R56.9 HISTORY: 74 yo male with HTN, HLD, CAD, Obesity, AVN s/p dual ppm 2006 and cardiomyopathy s/p BIV-ICD upgrade in who was transferred from [email or web address] for lead extraction. Patient was ad mitted to [facility] with change in mental status. Per [...] External Ris In - 12/15/2019 4:41 PM SALES PROJECT COORDINATOR DATE OF TEST: 12/15/19 DATE OF REPORT: 12/15/19 ACC: [id number] Start: 1603 End: 1624 CPT Code: 44501 ICD-10: R56.9 HISTORY: 74 yo male with HTN, HLD, CAD, Obesity, AVN s/p dual ppm 2006 and cardiomyopathy s/p BIV-ICD upgrade in who was transferred from [facility] [[email or web address] for lead extraction. Patient was ad mitted to [facility] with change in mental status. Per [...] RIS 2D Echo W/Doppler(CW/PW/Color) (12/15/2019 2:23 PM SALES PROJECT COORDINATOR) Ejection Fraction [facility] ECHO HEAR TLAB [facility] Specimen Narrative Performed At Transthoracic Echocardiography Report (T TE) [facility] Demographics Patient Name Renny CHAMBERLAIN of Study 12/15/2019 [id number] GenderMal e Visit Number [id number] [place]uc [id number] m Number 1430 Number Date of Birth1945 Referring Physician Niyah Mojica MD Age74 year(s) 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, HTN, HLD, CAD, OBESITY, AVN, DUAL P [...] T CI: 2.85 l/min/m^2 Performing Organization Address City/[facility] Phone Number [facility] CPACS Lipid panel (12/15/2019 2:47 AM SALES PROJECT COORDINATOR) Triglycerides 126 mg/dL [facility] Cholesterol 90 mg/dL [facility] HDL 6 mg/dL [facility] LDL Calculated 59 mg/dL [facility] Specimen Blood Narrative Performed At Triglyceride Reference Range: [facility] Low Risk <150 [id number] High Risk 200-499 Very High Risk>=500 Cholesterol Reference Range: Low Risk <200 [id number] High Risk>240 HDL Cholesterol Reference Range: Low Risk >=60 High Risk <40 LDL Cholesterol Reference Range: Optimal<100 Near [id number] Pkspvocmto213-256 [id number] Very High >=190 City Tax Auditor ID - DB Specimen slightly icteric Performing Organization Address City/State/Zipcode Phone Number [facility] [address] [place] [address] CENTER after 07/04/2019 Insurance Payer Benefit Plan / Group Subscriber ID Type Phone A ddress MEDICARE MEDICARE A B xxxxxxxxxxx Medicare MCR GENERIC MEDICARE xxxxxxxxx [employer] SUPPLEMENT/INDIVIDUAL SUPPLEMENT Advance Directives For more information, please contact:[place] [address] [place], [place] [phone] Code Status Date Activated Date Inactivated Comments [...]
--- OUTSIDE RECORDS SUMMARY | 2020-07-04 12:01 | XMS REPORT | Continuity of Care Document ---
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 Medical (disorder) 014 Data migrated from [employer] on 03/25/15. Group, [place] CARDIOMYOPATHY Active Condition 05/08/2015 [facility] edical 014 Group Asbestosis Active Problem 12/30/2019 Data Medic al (disorder) 014 migrated Group, from [employer] on 03/25/15. Body mass index 30+ Active Problem 12/30/2019 Data Medical - obesity (finding) 014 migrated Group, from [facility] on 03/25/15. ASBESTOSIS Active Condition 05/08/2015 Medic al 014 Group BODY MASS INDEX Active Condition 05/08/2015 Medical 37.0-37.9, ADULT 014 Apple up Discharge 05/06/2014 [place] Diagnosis: 014 [place] Dizziness DIZZINESS Active [place] 014 [place] Complete Active Problem 12/30/2019 Data migrated from [employer] on 05/31/15. Medical atrioventricular 014 Data migrated from [employer] on 03/25/15. Group, block (disorder) [place] [facility] Preoperative Resolved Problem 12/30/2019 Data migrate d from [employer] on 05/13/15. Medical cardiovascular 014 Data migrated f rom [employer] on 05/12/15. Group, examination [place] t (procedure) PRE-OPERATIVE Inactive Condition 05/08/2015 [facility] dical CARDIOVASCULAR 014 Group EXAMINATION ATRIOVENTRICULAR Active Condition 05/08/2015 Medical BLOCK, COMPLETE 014 Grou p Patient with Resolved Problem 12/30/2019 Data migrate d from [employer] on 05/31/15. Medical cardiac pacemaker 012 Data migrate d from [employer] on 05/03/15. Group, (finding) [facility] PACEMAKER, Active Condition 05/01/2015 Medic al PERMANENT 007 Group Biventricular Active Problem 12/30/2019 [facility] dical automatic Group, implantable [facility] t cardioverter defibrillator present (finding) Atherosclerosis of Active Problem 12/30/2019 Data Medical coronary artery migrated [place], (disorder) from [employer] [facility] Centricity on 03/25/15. Dyspnea on exertion Active Problem 12/30/2019 Data migrated from [employer] on 05/31/15. Medical (finding) Data migrated from [employer] on 03/25/15. Group,[facility] Essential Active Problem 12/30/2019 Medica l hypertension Group,M H (disorder) [place] ,[facility] Hypertensive Resolved Problem 12/30/2019 Med ical disorder, systemic G roup, arterial (disorder) [place],[facility] Hyperlipidemia Active Problem 12/30/2019 Data migra alex from [employer] [facility] on 05/31/15. Medical (disorder) Data migrated from [employer] on 03/25/15. Group,[facility] Rhythm from Resolved Problem 12/30/2019 Medi yoana artificial pacing Gr lul, (finding) [facility], M [facility] CORONARY ARTERY Active Condition 05/08/2015 Medical DISEASE Group HYPERTENSION Active Condition 05/08/2015 Med ical Group HYPERLIPIDEMIA Active Condition 05/08/2015 M edical Group DYSPNEA ON EXERTION Active Condition 05/08/2015 Medical Group ILLNESS, Active UNSPECIFIED [facility] Medications Medication Details Route Status Patient Ordering Order Source Instructions Provider Date Aspirin 81 MG Enteric 81 mg = 1 Active 12/15/ Coated Tablet tab, PO, 2019 [facility] Daily, 0 Refill(s) pravastatin 20 mg 80 mg = 4 Active oral tablet tab, PO2019 [facility] Bedtime, 0 Refill(s) sertraline 25 mg oral 50 mg = 2 Active tablet tab, PO, 2019 [facility] Daily, 0 Refill(s) tamsulosin 0.4 mg 0.4 mg = 1 oral capsule cap, PO, 2019 [facility] Bedtime, 0 Refill(s) Acetaminophen 325 MG 100.4 F, 0 Oral Tablet Refill(s) 2019 [facility] amLODIPine 5 mg oral 5 mg = 1 tablet tab, PO, 2019 [facility] Daily, 0 Refill(s) cyclobenzaprine 10 mg 10 mg = 1 Active oral tablet tab, PO, 2019 [facility] Q8H, PRN Muscle Spasms, 0 Refill(s) Docusate Sodium 100 100 mg = 1 H MG Oral Capsule cap, PO, 2019 [facility] BID, 0 Refill(s) Furosemide 40 MG Oral 40 mg = 1 Tablet tab, PO, 2019 [facility] Daily, 0 Refill(s) lisinopril 20 mg oral 20 mg = 1 tablet tab, PO, 2019 [facility] Daily, 0 Refill(s) metoprolol tartrate 25 mg = 1 25 mg oral tablet tab, PO, 2019 [facility] Q12H, 0 Refill(s) metroNIDAZOLE 500 mg = Active intravenous solution 100 mL, 2019 [facility] IVPB, ABXQ8H, 0 Refill(s) ondansetron 2 mg/mL 4 mg = 2 injectable solution mL, IVP, 2019 [facility] Q8H, PRN Nausea & Vomiting, 0 Refill(s) tramadol 50 mg = 1 Active hydrochloride 50 MG tab, PO, 2019 [facility] Oral Tablet Q6H, PRN Pain Score 1-3, 0 Refill(s) cefepime Notes: No Longer (Same As: 2019 [facility] Maxipime) MEDICATION WASTE Product Size: 1000 mg Product Wasted: ___ mg Flagyl Notes: No Longer (Same as: 2019 [facility] Flagyl) Avoid alcohol. Tylenol Notes: Do No Longer not exceed [address] 4 gm/day. (Same as: Tylenol) Potassium Chloride Notes: Inactive (Same as: 2019 [facility] ) "Do Not Crush" Give with food and full glass of water For patients unable to swallow tablet, dissolve in one half glass of water. Allow about 2 minutes for the tablets to disintegrat e. Stir before giving to prepare slurry and administer. Please exclude Patient&#82 17;s with feeding tube less than 14 [place] (Dobhoff, J-tube etc) and pediatric and patients. Potassium Chloride Notes: Inactive (Same as: 2019 [facility] "Do Not Crush" Give with food and full glass of water For patients unable to swallow tablet, dissolve in one half glass of water. Allow about 2 minutes for the tablets to disintegrat e. Stir before giving to prepare slurry and administer. Please exclude Patient&#82 17;s with feeding tube less than 14 [place] (Dobhoff, J-tube etc) and pediatric and patients. Lasix Notes: No Longer (Same as: 2019 [facility] Lasix) May cause GI upset. Give with food or milk. Potassium Chloride Notes: Inactive (Same as: 2019 [facility] ) "Do Not Crush" Give with food and full glass of water For patients unable to swallow tablet, dissolve in one half glass of water. Allow about 2 minutes for the tablets to disintegrat e. Stir before giving to prepare slurry and administer. Please exclude Patient&#82 17;s with feeding tube less than 14 [place] (Dobhoff, J-tube etc) and pediatric and patients. tramadol Notes: Not No Longer hydrochloride 50 MG to exceed Active 2019 [facility] Oral Tablet 400mg/day. (Same As: Ultram) Flexeril Notes: No Longer (Same As: 2019 [facility] Flexeril) metoprolol tartrate 25 mg, No Longer Route: PO, 2019 [facility] Drug form: TAB, BID, Dosing Weight 122.955, kg, Start date: 12/12/19 9:00:00 CLAIMS COUNSEL, Duration: 30 day, Stop date: 01/10/20 17:00:00 CDT metoprolol tartrate Notes: No Longer (Same as: 2019 [facility] Lopressor) Pravastatin Notes: No Longer (Same as: 2019 [facility] Pravachol) tamsulosin Notes: No Longer (Same As: 2019 [facility] Flomax) "Do Not Crush" Lasix Notes: Inactive (Same as: 2019 [facility] Lasix) MEDICATION WASTE Product Size: 40 mg Product Wasted: ___ mg Amlodipine 5 MG / 1 cap, No Longer Benazepril Route: PO, 2019 [facility] hydrochloride 20 MG Drug Form: Oral Capsule CAP, Dosing Weight 122.955, kg, Daily, Start date: 12/11/19 9:00:00 CLAIMS COUNSEL, Duration: 30 day, Stop date: 01/09/20 9:00:00 CDT Aspirin 81 MG Enteric Notes: Do No Longer Coated Tablet not crush [facility] or [facility]w. (Same As: Ecotrin) Sertraline Notes: No Longer (Same as: 2019 [facility] Zoloft) Docusate Notes: No Longer (Same as: 2019 [facility] Colace) (Do Not Crush) amLODIPine Notes: No Longer (Same as: 2019 [facility] Norvasc) lisinopril Notes: No Longer (Same as: 2019 [facility] Prinivil, Zestril) Acetaminophen 325 MG Notes: No Longer H / Hydrocodone (Same as: [facility] Bitartrate 5 MG Oral [place] Tablet [[place] 5/325] 325/5) Do not exceed 4gm/day of acetaminoph en. Dextrose 50% Syringe 12.5 gm, 25 No Longer 12/11 (D50W) mL, Route: 2019 [facility] IVP, Drug Form: INJ, Dosing Weight 122.955, kg, PRN, PRN Blood Glucose Results, Start date: 12/10/19 22:10:00 CLAIMS COUNSEL, Duration: 30 day, Stop date: 01/09/20 23:09:00 CDT, 0 Glucagon 1 mg, No Longer Route: IM, 2019 [facility] Drug form: PDR/INJ, PRN, Dosing Weight 122.955, kg, PRN Blood Glucose Results, Start date: 12/10/19 22:10:00 CLAIMS COUNSEL, Duration: 30 day, Stop date: 01/09/20 23:09:00 CDT, 0 Ondansetron Notes: No Longer (Same as: 2019 [facility] Zofran) MEDICATION WASTE Product Size: 4 mg Product Wasted: ___ mg BD Normal Saline Notes: Same No Longer H Flush as: BD 2019 [facility] Posiflush Sterile Sodium Chloride 0.9% 250 mL, No Longer H IV Route: 2019 [facility] IVPB, Start date: 12/10/19 21:33:00 CLAIMS COUNSEL, Duration: 30 day, Stop date: 01/09/20 22:32:00 [...] LOTREL 5-20 MG CAPS one by Active [facility] edical mouth daily 2014 Group SPIRONOLACTONE 25 [...] ZOLOFT 25 MG TABS one daily Active MH M edical Group SERTRALINE HCL 50 MG Take one Active MH Medical TABS tab daily Group LOVAZA 1 GM CAPS Take one Active MH Med ical tab twice Group daily LABETALOL HCL 200 MG Take 1/2 Active MH Medical TABS tab by Group mouth twice daily LOTREL 10-40 MG CAPS Take one Active MH Medical tab daily Group Allergies, Adverse Reactions, Alerts Substance Category Reaction Severity Reaction Status Date Comments S ource type Reported sulfamethox Assertion Itching Drug Active Data MH azole-trime allergy migrated Med ical thoprim<sup from GE Grou p >1</sup> Cent[facility]ity on 02/24/15. Originally documented as BACTRIM. welps, itchiness tetanus Assertion Unsure Drug Active Data toxoid<sup> allergy migrated Med ical 2</sup> from Group [facility] on 02/24/15. Originally documented as TETANUS TOXOID. unknown Bactrim Assertion Rash Drug Active allergy Medical Group BACTRIM Drug BACTRIM allergy Medical Group TETANUS Drug TETANUS TOXOID allergy TOXOID Medical Group Immunizations Immunization Date Given Site [...] Sodium Lvl 134 135 - 145 12/13 [facility] CHEM PANEL Potassium 3.2 3.5 - 5.1 12/13 [facility] [place] CHEM PANEL Chloride Lvl 100 95 - 109 12/13 [facility] CHEM PANEL CO2 25 24 - 32 12/13 [facility] CHEM PANEL Calcium Lvl 9.6 8.5 - 10.5 12/13 [facility] CHEM PANEL AGAP 12.2 10.0 - 12/13 MH 20.0 [facility] CHEM PANEL eGFR 58 12/13 Result Comment: The [facility] eGFR is calculated using the CKD-EPI formula. [...] 1.8 - 2.4 / MH Lvl /2019 [facility] HEMATOLOGY WBC 12.2 3.7 - 10.4 12/13 /2019 [facility] HEMATOLOGY RBC 4.03 4.70 - 12/13 MH 6.10 [facility] HEMATOLOGY Hgb 11.9 14.0 - 12/13 MH 18.0 /2019 [facility] HEMATOLOGY Hct 35.8 42.0 - 12/13 MH 54.0 /2019 [facility] HEMATOLOGY MCV 89.0 80.0 - 12/13 MH 94.0 /2019 [facility] HEMATOLOGY MCH 29.6 27.0 - 12/13 MH 31.0 /2019 [facility] MCHC 33.2 32.0 - 12/13 MH 36.0 /2019 [facility] HEMATOLOGY RDW 14.9 11.5 - 12/13 MH 14.5 [facility] HEMATOLOGY Platelet 105 133 - 450 12/13 /2019 [facility] HEMATOLOGY MPV 9.7 7.4 - 10.4 12/13 /2019 [facility] HEMATOLOGY Segs 86.4 45.0 - 12/13 MH 75.0 [facility] HEMATOLOGY Lymphocytes 7.3 20.0 - 12/13 MH 40.0 [facility] HEMATOLOGY Monocytes 5.1 2.0 - 12.0 12/13 /2019 [facility] HEMATOLOGY Eosinophils 0.2 0.0 - 4.0 12/13 /2019 [facility] HEMATOLOGY Basophils 1.0 0.0 - 1.0 12/13 /2019 [facility] HEMATOLOGY Neutrophils 10.5 1.5 - 8.1 12/13 MH # /2019 [facility] HEMATOLOGY Lymphocytes 0.9 1.0 - 5.5 12/13 MH # /2019 [facility] HEMATOLOGY Monocytes # 0.6 0.0 - 0.8 12/13 /2019 [facility] HEMATOLOGY Basophils # 0.1 0.0 - 0.2 12/13 /2019 [facility] SPECIAL Hgb A1C 5.4 <=5.6 % 12/13 CHEMISTRY /2019 [facility] CHEM PANEL Glucose Lvl 120 70 - 99 12/12 /2019 [facility] CHEM PANEL BUN 37 7 - 22 12/12 [facility] CHEM PANEL Creatinine 1.20 0.50 - 12/12 MH Lvl 1.40 [facility] CHEM PANEL Sodium Lvl 135 135 - 145 12/12 [facility] CHEM PANEL Potassium 2.7 3.5 - 5.1 12/12 Result MH Lvl /2019 Comment: [facility] Critical Result(s) called Beatris _ at 12/12/2019 16:50 by js. Read back OK. CHEM PANEL Chloride Lvl 100 95 - 109 12/12 [facility] CHEM PANEL CO2 31 24 - 32 12/12 [facility] CHEM PANEL AGAP 6.7 10.0 - 12/12 MH 20.0 [facility] CHEM PANEL Calcium Lvl 9.4 8.5 - 10.5 12/12 [facility] CHEM PANEL eGFR 58 12/12 Result Comment: The [facility] eGFR is calculated using the CKD-EPI formula. [...] Ammonia 14.0 <=45.0 12/12 MH uMol/L /2019 [facility] HEMATOLOGY WBC 11.3 3.7 - 10.4 12/12 [facility] HEMATOLOGY RBC 4.04 4.70 - 12/12 MH 6.10 [facility] HEMATOLOGY Hgb 11.9 14.0 - 12/12 MH 18.0 [facility] HEMATOLOGY Hct 35.9 42.0 - 12/12 MH 54.0 [facility] HEMATOLOGY MCV 88.8 80.0 - 12/12 MH 94.0 [facility] HEMATOLOGY MCH 29.5 27.0 - 12/12 MH 31.0 [facility] HEMATOLOGY MCHC 33.2 32.0 - 12/12 MH 36.0 [facility] HEMATOLOGY RDW 14.7 11.5 - 12/12 MH 14.5 [facility] HEMATOLOGY Platelet 123 133 - 450 12/12 [facility] HEMATOLOGY MPV 9.8 7.4 - 10.4 12/12 [facility] HEMATOLOGY RBC Morph Normal Normal 12/12 (12/12/19 3:50 PM) /2019 [facility] est HEMATOLOGY Plt Morph Normal Normal 12/12 (12/12/19 3:50 PM) /2019 [facility] est HEMATOLOGY Segs 84.7 45.0 - 12/12 MH 75.0 /2019 [facility] HEMATOLOGY Lymphocytes 7.4 20.0 - 12/12 MH 40.0 /2019 [facility] HEMATOLOGY Monocytes 7.6 2.0 - 12.0 12/12 [facility] HEMATOLOGY Eosinophils 0.3 0.0 - 4.0 12/12 [facility] HEMATOLOGY Basophils 0.0 0.0 - 1.0 12/12 [facility] HEMATOLOGY Neutrophils 9.6 1.5 - 8.1 12/12 MH # /2019 [facility] HEMATOLOGY Lymphocytes 0.8 1.0 - 5.5 12/12 MH # /2019 [facility] HEMATOLOGY Monocytes # 0.9 0.0 - 0.8 12/12 [facility] HEMATOLOGY Eosinophils 0.0 0.0 - 0.5 12/12 MH # /2019 [facility] HEMATOLOGY Basophils # 0.0 0.0 - 0.2 12/12 [facility] Culture: No Growth 12/12 Urine [facility] URINE AND UA Turbidity Slight Clear 12/12 STOOL *ABN* [facility] (12/11/19 8:55 PM) URINE AND UA Spec Grav 1.010 <=1.030 12/12 STOOL [facility] URINE AND UA pH 5.0 5.0 - 8.0 12/12 STOOL [facility] URINE AND UA Protein Negative Negative 12/12 STOOL mg/dL mg/dL [facility] URINE AND UA Glucose Negative Negative 12/12 STOOL mg/dL mg/dL [facility] URINE AND UA Ketones Trace Negative 12/12 STOOL mg/dL mg/dL [facility] URINE AND UA Bili Negative Negative 12/12 STOOL *NA* [facility] (12/11/19 8:55 PM) URINE AND UA Blood Large Negative 12/12 STOOL *ABN* [facility] (12/11/19 8:55 PM) URINE AND UA 4.0 0.1 - 1.0 12/12 STOOL Urobilinogen [facility] URINE AND UA Nitrite Negative Negative 12/12 STOOL (12/11/19 8:55 PM) [facility] est URINE AND UA Leuk Est Negative Negative 12/12 STOOL (12/11/19 8:55 PM) [facility] est URINE AND UA WBC 14 0 - 5 12/12 STOOL [facility] URINE AND UA RBC >182 0 - 2 12/12 STOOL [facility] URINE AND UA Bacteria Occasional None Seen 12/12 STOOL /HPF /HPF [facility] URINE AND UA Mucus Few /LPF None Seen 12/12 STOOL /LPF [facility] URINE AND UA Hyal Cast 1 0 - 2 12/12 STOOL [facility] URINE AND UA Sq Epi None Seen 12/12 STOOL [facility] URINE AND UA Color Yellow 12/12 STOOL [facility] CARDIAC BNP 705 <=100 12/11 ENZYMES pg/mL [facility] CHEM PANEL Glucose Lvl 92 70 - 99 12/11 [facility] CHEM PANEL BUN 29 7 - 22 12/11 [facility] CHEM PANEL Creatinine 1.00 0.50 - 12/11 Lvl 1.40 [facility] CHEM PANEL Sodium Lvl 138 135 - 145 12/11 MH [facility] CHEM PANEL Potassium 3.6 3.5 - 5.1 12/11 Lvl /2019 [facility] CHEM PANEL Chloride Lvl 107 95 - 109 12/11 [facility] CHEM PANEL CO2 21 24 - 32 12/11 MH [facility] CHEM PANEL Calcium Lvl 9.8 8.5 - 10.5 12/11 [facility] CHEM PANEL Total 5.8 6.4 - 8.4 12/11 Protein [facility] CHEM PANEL Albumin Lvl 2.3 3.5 - 5.0 12/11 [facility] CHEM PANEL ALT 34 0 - 65 12/11 MH [facility] CHEM PANEL AST 50 0 - 37 12/11 MH [facility] CHEM PANEL Alk Phos 73 39 - 136 12/11 MH [facility] CHEM PANEL Bili Total 1.2 0.2 - 1.3 12/11 MH [facility] CHEM PANEL AGAP 13.6 10.0 - 02 MH 20.0 /2019 [facility] CHEM PANEL B/C Ratio 29 6 - 25 12/11 MH [facility] CHEM PANEL Globulin 3.5 2.7 - 4.2 12/11 [facility] CHEM PANEL A/G Ratio 0.7 0.7 - 1.6 12/11 [facility] CHEM PANEL eGFR 73 12/11 Result Comment: The [facility] eGFR is calculated using the CKD-EPI formula. [...] HEMATOLOGY WBC 7.8 3.7 - 10.4 12/11 [facility] HEMATOLOGY RBC 3.88 4.70 - 12/11 MH 6.10 /2019 [facility] HEMATOLOGY Hgb 11.6 14.0 - 12/11 MH 18.0 [facility] HEMATOLOGY Hct 35.3 42.0 - 12/11 MH 54.0 [facility] HEMATOLOGY MCV 91.0 80.0 - 12/11 MH 94.0 [facility] HEMATOLOGY MCH 30.0 27.0 - 12/11 MH 31.0 /2019 [facility] HEMATOLOGY MCHC 33.0 32.0 - 12/11 MH 36.0 [facility] HEMATOLOGY RDW 14.7 11.5 - 12/11 MH 14.5 /2020 [facility] HEMATOLOGY Platelet 117 133 - 450 12/11 [facility] HEMATOLOGY MPV 10.1 7.4 - 10.4 12/11 [facility] HEMATOLOGY Segs 81.9 45.0 - 02 MH 75.0 /2019 [facility] HEMATOLOGY Lymphocytes 10.8 20.0 - 12/11 MH 40.0 /2019 [facility] HEMATOLOGY Monocytes 6.9 2.0 - 12.0 12/11 [facility] HEMATOLOGY Eosinophils 0.2 0.0 - 4.0 12/11 [facility] HEMATOLOGY Basophils 0.2 0.0 - 1.0 12/11 [facility] HEMATOLOGY Neutrophils 6.4 1.5 - 8.1 12/11 [facility] HEMATOLOGY Lymphocytes 0.8 1.0 - 5.5 12/11 [facility] HEMATOLOGY Monocytes # 0.5 0.0 - 0.8 [...] 1.3 0.0 - 2.5 05/03 [facility]ZYM[facility] CARDIAC Troponin-I 0.02 0.00 - 07 [facility] ENZYMES 0.40 /2013 [facility] CARDIAC CK MB 1.9 0.5 - 3.6 05/03 [facility] ENZYMES [facility] CARDIAC Total CK 149 12 - 191 [...] - 99 05/03 <sup>2</sup>I MH [place] nterpretive [facility] Data: Adult reference range values reflect the clinical guidelines
of the [place] [employer]. CHEM PANEL AGAP 9.4 10.0 [...] 0.5 07/08 MH S[place] r # /2013 [facility] HEMATOLOGY Monocytes # 0.5 0.0 - 0.8 07/ [place] r /2013 [facility] HEMATOLOGY Lymphocytes 1.8 1.0 - 5.5 / [place] # /2013 [facility] HEMATOLOGY Segs-Bands # 3.1 1.5 - 8.1 05/03 [place] ar /2013 [facility] HEMATOLOGY PT 12.9 12.0 - 07/08 [place] 14.7 /2013 [facility] HEMATOLOGY INR 0.98 0.85 - 07/08 <sup>3</sup>I [place] r 1.17 /2013 nterpretive [facility] Data: RECOMMENDED RANGES FOR PROTIME INR:
2.0-3.0 for most medical and surgical thromboemboli c states.
2.5-3.5 for artificial heart valves and recurrent embolism.<br/ >
INR SHOULD BE USED ONLY FOR PATIENTS ON STABLE ANTICOAGULANT THERAPY. HEMATOLOGY PTT 28.7 22.9 - 07/08 <sup>4</sup>I S[place] r 35.8 /2013 nterpretive [facility] Data: Heparin Therapeutic Range: 57 - 92 Seconds HEMATOLOGY Hgb 13.9 14.0 - 07/08 [facility] 18.0 /2013 [facility] HEMATOLOGY MCV 91.8 80.0 - 07/08 [facility] 94.0 /2013 [facility] HEMATOLOGY Hct 40.8 42.0 - 07/08 [facility] 54.0 /2013 [facility] HEMATOLOGY WBC 5.6 3.7 - 10.4 /08 [place] /2013 [facility] HEMATOLOGY RBC 4.45 4.70 - /08 [facility] 6.10 /2013 [facility] HEMATOLOGY MCH 31.2 27.0 - 07/08 [facility] 31.0 /2013 [facility] HEMATOLOGY RDW 13.2 11.5 - 07/08 [facility] 14.5 /2013 [facility] HEMATOLOGY MCHC 34.0 32.0 - 07/08 [facility] 36.0 /2013 [facility] HEMATOLOGY Platelet 174 133 - 450 / Sugar [facility] HEMATOLOGY MPV 8.8 7.4 - 10.4 /08 [place] /2013 [facility] Chemistry PSA 1.45 09/16 /2009 Group Chemistry PSA 1.45 09/16 Group Chemistry PSA 1.45 09/16 Group Pathology Reports No Data Provided for This Section Diagnostic Reports Report Value Date Source Chest 1view DX PROCEDURE INFORMATION: 12/13/2019 [facility] est Exam: XR Chest, 1 [...] Ridge Graham MD On 12/13/2019 14:47:39; VR-SSM [id number] Spine thoracolumbar 2 PROCEDURE INFORMATION: 12/11/2019 [facility] views DX Exam: XR Thoracic Spine, [...] Alonso Nick MD On 12/11/2019 18:18:18; VR-EGEIB [id number] Spine cervical series DX PROCEDURE INFORMATION: 12/11/2019 [facility] Exam: XR Cervical Spine, 2 or [...] Alonso Nick MD On 12/11/2019 16:21:50; VR-EGEIB [id number] Knee 1-2 Views PROCEDURE INFORMATION: 12/11/2019 [facility] est unilateral DX Exam: XR [...] Alonso Nick MD On 12/11/2019 15:51:54; VR-EGEIB [id number] Brain wo contrast CT Radiation Dose CTDIVOL = 0 (mGy): DLP = 958.83 (mGy-cm) 12/11/2019 [facility] PROCEDURE INFORMATION: Exam: CT Head Without [...] Jake Crowe MD On 12/11/2019 10:59:18; VR-JNG [id number] Chest 1view DX PROCEDURE INFORMATION: 12/11/2019 [facility] est Exam: XR Chest, 1 [...] Derek Membreno MD On 12/11/2019 08:19:20; VR-KO [id number] Chest 2 views DX PROCEDURE: Chest Radiograph. 02/04/2019 [facility] Clinical Indication: Hypertension. Comparison: Chest radiograph 05/03/2014. FINDINGS: The chest shows normal lung volumes without interstitial or airspace opacities, pleural effusions or pneumothorax. The cardiac silhouette is en larged. A left subclavian pacemaker is noted. Degenerative change involves the thoracic spine. IMPRESSION: 1. No chest radiographic evidence of acute cardi opulmonary disease. [id number] Consultation Notes No Data Provided for This Section Discharge Summaries No Data Provided for This Section History and Physicals No Data Provided for This Section Vital Signs Vital Sign Value Date Comments Source Heart Rate 98 12/15/2019 [facility] Respitory Rate 20 12/15/2019 [facility] Systolic (mm Hg) 155 12/15/2019 [facility] t Diastolic (mm Hg) 88 12/15/[address] [facility] [address] Heart Rate 91 12/14/2019 [facility] Respitory Rate 20 12/14/2019 [facility] Systolic (mm Hg) 126 12/14/2019 [facility] t Diastolic (mm Hg) 79 12/14/[address] [facility] [address] Heart Rate 73 12/14/2019 [facility] Respitory Rate 20 12/14/2019 [facility] Systolic (mm Hg) 109 12/14[facility] [facility] Diastolic (mm Hg) 67 12/14/2019 [facility] st Temperature Oral (F) 99.9 F 12/11/2019 [place] Temperature Oral (F) 99.7 F 12/11/2019 [place] Temperature Oral (F) 98.9 F 12/11/2019 [place] Height 182.88 cm 12/11/2019 [facility] Weight 122.955 12/11/2019 [facility] BMI Calculated 36.76 12/11/2019 [facility] Weight 126.023 02/11/2019 [facility] Grou p [...] [place] and Heart Rate 62 05/03/2014 [place] Respitory Rate 16 05/03/2014 [place] Systolic (mm Hg) 156 05/03/2014 [place] Weight 76.818 05/03/2014 [place] BMI Calculated 22.97 05/03/2014 [place] Height 182.88 cm 05/03/2014 [place] Systolic (mm Hg) 162 05/03/2014 [place] Resp[place] Rate 16 05/03/2014 [place] Heart Rate 60 05/03/2014 [place] Diastolic (mm Hg) 87 05/03/2014 [place] [...] Type Number For Provider Date Date Visit [facility] [id number] Derek James 05/03 05/03 Poppy Smith Emergency /2013 [facility] [place] [facility] Lab Report [id number] Dolly 05/04 05/04 [facility] [address] [facility], Medical Medical [facility] [employer] [facility] [place] [facility] Lab Report [id number] Dolly 07/07 07/07 [facility] [address] [facility], Medical Medical [employer] [facility] [place] [facility] [place] Office [id number] Dolly 07/18 07/18 [place] Medical Visit [address], [facility] APRN Group Cardiology [facility] Lab Report [id number] Dolly09/09 [place] Medical 58[address], /2013 Medica l [facility]arsh STRIP CUTTER Group Cardiology [facility] South Office [id number] Dolly 10/17 10/17 [place] Medical Visit 8470 Maz[place], [facility] STRIP CUTTER Group Cardiology [facility] South Office [id number] Francis 04/17 04/17 [place] Medical Visit 4900 Radha, /2014 [facility] MD Group Cardiology [facility] [place] Lab Report [id number] Francis 04/24 04/24 [place] 5090 Radha, /2014 [facility]enn[facility] MD Group Cardiology [facility] [place] Office [id number] Francis 04/24 04/24 [place] Medical Visit 2160 Radha, Dennys [facility] MD Group Cardiology [facility] Lab Report [id number] Francis 05/01 05/01 [place] Medical 4520 Radha, Dennys [facility] MD Group Cardiology [facility] Office [id number] Francis 05/08 05/08 [place] Medical Visit 1680 Radha, Dennys [facility] MD Group Cardiology Outpatient [id number] FRANCIS 07/31 [facility] [place] Outpatient [id number] FRANCIS10/30 [facility] Outpatient [id number] FRANCIS10/31 [facility] [place] Outpatient [id number] 05/06 [facility] [place] Outpatient [id number] [place] DAN 09/02 [facility] MAZEL [place] Outpatient [id number] FRANCIS08/18 Active [facility] RADHA Luis [facility] Phone [id number] 10/01 10/03 Cardiology Message /2016 Medic al [facility] Outpatient [id number] 01/12 [facility] [place] [facility] Outpatient [id number] Francis 01/12 01/13 Cardiology Radha /2017 Medi yoana [facility] MG Outside [id number] 02/04 02/06 Cardiology Medical /2017 Medic al [employer] [facility] Outpatient [id number] FRANCIS02/09 [facility] RADHA [place] [facility] Ambulatory [id number] Francis 02/09 02/09 Cardiology Pre-Reg Radha /2017 Med ical [facility] Outpatient [id number] FRANCIS02/16 Active [facility] RADHA Luis [facility] Ambulatory [id number] Francis02/16 Cardiology Pre-Reg Radha /2017 Med ical [facility] MG Phone [id number] 03/03 03/05 Cardiology Message /2017 [facility] [employer] Outpatient [id number] FRANCIS 03/16 [facility] RADHA [place] [facility] Outpatient [id number] Francis 03/16 03/17 Cardiology Radha /2017 Medi yoana [employer] [facility] Phone [id number] 05/12 05/14 Cardiology Message /2017 Medic al [facility] Phone [id number] 09/02 09/04 Cardiology Message /2017 Medic [facility] [employer] [facility] Outpatient [id number] Francis 02/04 Active [facility] Radha Luis Outpatient [id number] NURSE 02/04 Active [facility] VISIT /2018 [place] [facility] Outpatient [id number] Francis 02/04 02/05 Cardiology Radha /2018 Medi yoana [employer] [facility] Outpatient [id number] Francis 02/04 02/05 Radiology Radha /2018 Medic [facility] [employer] [facility] Outpatient [id number] Francis 02/[address] [facility] Radha [place] [facility] Outpatient [id number] Francis 02/11 02/12 Cardiology Radha /2018 Medi yoana [employer] [facility] Phone [id number] 02/26 02/28 Cardiology Message /2018 Medic al [facility] Outside [id number] 08/03 08/05 Cardiology Medical /2018 Medic al [facility] Outside [id number] 11/01 11/03 Cardiology Medical /2019 Medic al [employer] [facility] Phone [id number] 12/10 12/12 Cardiology Message /2019 Medic [facility] [employer] [facility] Inpatient [id number] [employer] 12/11 12/15 [facility] Outpatient [id number] L Dolly 12/[address] [facility] Mazel Luis [facility] Ambulatory [id number] L Dolly 12/27 12/27 Cardiology Pre-Reg Mazel /2019 Medic al [facility] Procedures Procedure Code Date Perfomer Comments Source Cryotherapy to skin [id number] 01/08/2018 multiple [facility] Me dical lesion<sup>1</sup> lesions on Group, MH his face. [facility] Implantation of [id number] 05/04/2015 3.0 years Medica l cardioverter remain - Group, defibrillator with dependent. [place] three electrode leads<sup>2</sup> Implantation of [id number] 05/04/2015 3.0 years MH Medica l cardioverter remain - Group defibrillator with dependent. three electrode leads<sup>1</sup> echocardiogram, [id number] 07/08/2014 Complete Medica l complete Group Cardiac [id number] 2009 Medical catheterization, Group, left [facility] heart<sup>3</sup> Implantation of [id number] Medica l defibrillator Group,[facility] Knee joint [id number] Medical operation Group,[facility], [place] Miscellaneous [id number] Lumbar spine Medica l operations<sup>4</s Group ,MH up> [facility] Cardiac [id number] 2009 Medical catheterization, Group left heart<sup>2</sup> Miscellaneous [id number] Lumbar spine Medica l operations<sup>3</s Group up> Miscellaneous [id number] 1Lumbar spine [place] operations<sup>1</s up> Assessment and Plan Assessment and [...] 1no regular exercise. Social History TypeResponse 12/11/2019 [facility] Alcohol Current, Type Beer. Frequency: 1-2 [...]
--- OUTSIDE RECORDS SUMMARY | 2020-07-04 12:10 | XMS REPORT | Continuity of Care Document ---
:1945 Author Organization [facility] t Address [address] [place] [address] [address]. [address] [place] [address] Care Team Providers Name Role Phone SARA MANJARREZ Attending Clinician Unavailable Josseline VIZCARRA, Sara Attending Clinician Tamara VIZCARRA, Peter Sanderson Attending Clinician Misael Crowe MD Attending Clinician Toney العراقي MD Attending Clinician Maty Montilla MD Attending Clinician [phone] Vinh VIZCARRA Attending Clinician Tommy Driscoll MD Attending Clinician Penny Attending Clinician Rodriguez Attending Clinician Unavailable Joanna Olivia Attending Clinician Unavailable Bam VIZCARRA Attending Clinician Tresa Crowe Attending Clinician Margaret Garcia Attending Clinician Jessica James Attending Clinician JOSSELINE Admitting Clinician Unavailable Tresa Crowe Admitting Clinician Payers Payer Name Policy Policy Number Effective Expiration Source Type Date Date MEDICAREMEDICARE A xxxxxxxxxxx [facility] Problems Condition Condition Condition Status Onset Resolution Last Treating Co mments Source Name Details Category Date Date Treatment Clinician Date 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 MECHANICAL Condition Active 2015-05-08 Memoria COMPLICATI 05-04 11:44:02 l ON DUE TO 00:00: Luis AUTOMATIC MECHANICAL 00 IMPLANTABL COMPLICATI E CARDIAC ON DUE TO DEFIBRILLA AUTOMATIC TOR IMPLANTABL E CARDIAC DEFIBRILLA TOR Active 05/04/2015 [facility] Cardiomyop Problem Active 2019-12-30 M emoria athy 07-08 22:35:18 l (disorder) 00:00: Kameron n Cardiomyop 00 athy (disorder) Active 07/08/2014 Problem 12/30/2019 Data migrated from GE Centricity on 05/31/15.Butch a migrated from GE Bactestcity on 03/25/15. [facility] Condition Active 2015-05-08 Memoria ATHY 07-08 11:44:02 l 00:00: [place] CARDIOMYOP 00 ATHY Active 07/08/2014 Condition 5 [facility] Group Asbestosis Problem Active 2019-12-30 M emoria (disorder) 07-07 22:35:18 l 00:00: Luis Asbestosis 00 (disorder) Active 07/07/2014 Problem 12/30/2019 Data migrated from GE [employer] on 03/25/15. [facility] Body mass Problem Active 2019-12-30 Me moria index 30+ 9-11 22:35:18 l - obesity Body 00:00: Luis (finding) mass index 00 30+ - obesity (finding) Active 07/07/2014 Problem 12/30/2019 Data migrated from FindIt on 03/25/15. Medical Group,[facility] ASBESTOSIS Condition Active 2015-05-08 Memoria 9-11 11:44:02 l 00:00: Luis ASBESTOSIS 00 Active 07/07/2014 Condition 5 [facility] BODY MASS Condition Active 2015-05-08 Memoria INDEX 9-11 11:44:02 l 37.0-37.9, BODY 00:00: Kameron n ADULT MASS INDEX 00 37.0-37.9, ADULT Active 07/07/2014 [facility] 5 [facility] DIZZINESS Diagnosis Active 2014-05-03 Memoria 7-08 11:52:00 l 00:00: [place] DIZZINESS 00 Active 05/03/2014 [place] Complete Problem Active 2019-12-30 Mem oria atrioventr 2-24 22:35:18 l icular Complete 00:00: Kameron n block atrioventr 00 (disorder) icular block (disorder) Active 12/20/2013 Problem 12/30/2019 Data migrated from FindIt on 05/31/15.Butch a migrated from FindIt on 03/25/15. Medical Group,[facility] ATRIOVENTR Condition Active 2015-05-08 Memoria ICULAR 2-24 11:44:02 l BLOCK, 00:00: [place] COMPLETE ATRIOVENTR 00 ICULAR BLOCK, COMPLETE Active 12/20/2013 Condition 5 [facility] PACEMAKER, Condition Active 2015-05-01 Memoria PERMANENT 03-03 09:14:00 l 00:00: Luis PACEMAKER, 00 PERMANENT Active 03/03/2007 Condition 5 [facility] Group Hypertensi Problem Resolve 2019-12-30 Memoria ve d 22:35:18 l disorder, Luis systemic Hypertensi arterial ve (disorder) disorder, systemic arterial (disorder) Resolved Problem 12/30/2019 Medical Group,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 [facility] Dyspnea on Problem Active 2019-12-30 M emoria exertion 22:35:18 l (finding) Dyspnea Herm natasha on exertion (finding) Active Problem 12/30/2019 Data migrated from GE Centric[employer] on 05/31/15.Butch a migrated from [employer] on 03/25/15. [facility] Essential Problem Active 2019-12-30 Me moria hypertensi 22:35:18 l on [place] (disorder) Essential hypertensi on (disorder) Active Problem 12/30/2019 Medical Group,[facility] [place] Hyperlipid Problem Active 2019-12-30 M emoria emia 22:35:18 l (disorder) Kameron n Hyperlipid emia (disorder) Active Problem 12/30/2019 Data migrated from [employer] on 05/31/15.Butch a migrated from [employer] on 03/25/15. [facility] CORONARY Condition Active 2015-05-08 M emoria ARTERY 11:44:02 l DISEASE CORONARY Cata nn ARTERY DISEASE Active Condition 05/08/2015 Medical Group HYPERTENSI Condition Active 2015-05-08 Memoria ON 11:44:02 l [place] HYPERTENSI ON Active Condition 05/08/2015 Medical Group HYPERLIPID Condition Active 2015-05-08 Memoria EMIA 11:44:02 l [place] HYPERLIPID EMIA Active Condition 05/08/2015 Medical Group DYSPNEA ON Condition Active 2015-05-08 Memoria EXERTION 11:44:02 l DYSPNEA [place] ON EXERTION Active Condition 05/08/2015 Medical Group ILLNESS, Diagnosis Active 2019-12-20 M emoria UNSPECIFIE 21:58:00 l D ILLNESS, Kameron n UNSPECIFIE D Active [facility] Discharge Problem 2014-05-06 2014-05-06 Memoria Diagnosis: 7-08 03:20:30 03:20:30 l Dizziness 05:00: Luis Discharge 00 Diagnosis: Dizziness 05/03/2014 05/06/2014 [place] History of Past Illness Condition Condition Condition Status Onset Resolution Last Treating Co mments Source Name Details Category Date Date Treatment Clinician Date Preoperati Problem Resolve 2019-12-30 2019-12-30 Memoria ve d 2-24 22:35:18 22:35:18 l cardiovasc 00:00: Kameron huang ular Preoperati 00 examinatio ve n cardiovasc (procedure ular ) examinatio n (procedure ) Resolved 12/20/2013 Problem 12/30/2019 Data migrated from [employer] on 05/13/15.Da ta migrated from [employer] on 05/12/15. Medical Group,[facility] Patient Problem Resolve 2011-102019-12-30 2019-12-30 Memoria with d 0-08 22:35:18 22:35:18 l cardiac Patient 00:00: Kameron huang pacemaker with 00 (finding) cardiac pacemaker (finding) Resolved 08/03/2012 Problem 12/30/2019 Data migrated from [employer] on 05/31/15.Butch a migrated from [employer] Cent[employer] on 05/03/15. Medical Group,[facility] PRE-OPERAT Condition Inactiv 2015-05-08 2015-05-08 Memoria HAYLEY e 24 11:44:02 11:44:02 l CARDIOVASC 00:00: Kameron huang ULAR PRE-OPERAT 00 EXAMINATIO HAYLEY N CARDIOVASC ULAR EXAMINATIO N Inactive 12/20/2013 Condition 5 [facility] Allergies, Adverse Reactions, Alerts Allergy Allergy Status Severity Reaction(s) Onset Inactive Treating Comm ents Source Name Type Date Date Clinician Sulfamet Propensi Active [facility] hoxazole ty to 2-19 [facility] - -Trimeth adverse 00:00: Medical oprim reaction 00 Center s Sulfa Propensi Active 2020-[address] [facility] (Sulfona ty to 219 [facility] - mide adverse 00:00: Medical Antibiot reaction 00 Center ics) s Tetanus Propensi Active 2020-[address] [facility] [address] Vaccines ty to 2-19 [facility] - And adverse 00:00: Medical Toxoid reaction 00 Center s tetanus tetanus Active Memoria toxoid<s toxoid<s l up>2</parker up>2</parker Kameron n p> p> Bactrim Bactrim Active Memoria l Luis BACTRIM BACTRIM Active Memoria l Luis TETANUS TETANUS Active Memoria TOXOID TOXOID l [place] Social History Social Habit Start Date Stop Date Quantity Comments Source History [facility] Alcohol [facility] Std Drinks [facility] History [facility] Alcohol [facility] Binge [facility] Sex Assigned At [facility] History [facility] Alcohol 2019-12-15 2019-12-[address] [facility] - Frequency 00:00:00 00:00:00 [facility] Social History 2019-12-11 2019-12-11 [facility] 03:44:19 03:44:19 Smoking Status Start Date Stop Date Source Former smoker 2020-02-01 00:00:00 2020-02-01 00:00:00 [facility] Medications Ordered Filled Start Stop Current Ordering Indication Dosage Frequency Signature Comments Components Source Medication Medication Date Date Medication? Clinician (SIG) Name Name rivaroxaban 2019- Yes 15mg Q.5D Take [address] [facility] (XARELTO) 4-03 tablet (15 Luke s - 15 mg Tab 00:00: mg total) Med ical tablet 00 by mouth 2 Center (two) times daily. zinc 2019-0 Yes 177g Apply [address] [facility] [address] oxide-bautista 4-02 g [facility] - latum 00:00: topically Medical (CRITIC-AID [address] ) 20-51 % (perianal Pste excoriatio topical n). paste promethazin 2019-0 2020- No 12.5mg Take [address] e 4-02 04-09 tablet [facility] - (PHENERGAN) 00:00: 23:59 (12.5 mg M edical 12.5 MG 00 :00 total) by Center tablet mouth every 6 (six) hours as needed for up to 7 days. ceftaroline 2019-0 Yes 600mg Inject [address] (TEFLARO) 3-05 mg [facility] - MBP 600 mg 00:00: intravenou M edical in 100 mL 00 sly every Cente r NS 12 (twelve) hours. aspirin 81 0 2020- No 81mg QD Take [address] [facility] [address] MG chewable 12-29 tablet (81 L ukes - tablet 00:00: 23:59 mg total) Medic al 00 :00 by mouth Center daily for 30 days. honey 100 % 2019- No 1{appli QD Apply [address] [facility] Pste 12-29 cation} applicatio [facility] - 00:00: 23:59 n Medical 00 :00 topically Center daily for 30 days. levoFLOXaci 2019- No 750mg Inject [address] n 12-29-02 mLs (750 [facility] - (LEVAQUIN) 00:00: 00:00 mg total) M edical IVPB 750 mg 00 :00 intravenou Ce nter in dextrose sly every 5% (D5W) other day. 150 mL polyethylen 2019- No 17g QD Take [address] e glycol 12-29-08 by mouth [facility] - (GLYCOLAX) 00:00: 23:59 daily for M edical 17 gram 00 :00 3 days. [place] packet furosemide 2019- No 40mg QD Take [address] (LASIX) 40 12-28-04 by mouth Luke s - MG tablet 14:54: 00:00 daily. Medic al 31 :00 [place] amLODIPine 2020- No 5mg QD Take [address] (NORVASC) 5 12-28-04 by mouth Pinky es - MG tablet 14:54: 00:00 daily. Medic al 31 :00 [place] aspirin 81 2019-0 2020- No 81mg QD Take [address] MG EC 12-28-04 by mouth [facility] - tablet 14:54: 00:00 daily. Medical 31 :00 [place] metoprolol 2019-0 2020- No 25mg Take [address] [facility] (LOPRESSOR) 12-28-04 by mouth. Raul kes - 25 MG 14:54: 00:00 Medical tablet 31 :00 [place] lisinopril 2020- No 20mg QD Take [address] [facility] (PRINIVIL,Z 12-28-04 by mouth Pinky es - ESTRIL) 20 14:54: 00:00 daily. Medi yoana MG tablet 31 :00 [place] pravastatin 2020- No 20mg QD Take [address] [facility] (PRAVACHOL) 12-28-04 by mouth Pinky es - 20 MG 14:54: 00:00 daily. Medical tablet 31 :00 [place] sertraline 0 2020- No 50mg QD Take [address] (ZOLOFT) 25 12-28-04 by mouth Pinky es - MG tablet 14:54: 00:00 daily. Medic al 31 :00 [place] traMADol 2020- No 50mg Take [address] (ULTRAM) 50 12-28-04 by mouth Pinky es - mg tablet 14:54: 00:00 every 6 Medi yoana 31 :00 (six) Center hours as needed for Pain. tamsulosin 2020- No .4mg Take 0.[address] (FLOMAX) 12-28 03-04 mg by [facility] - 0.4 mg Cap 14:54: 00:00 mouth once Medical 24 hr 31 :00 at Center capsule bedtime. ondansetron 2019- No 4mg Take [address] [facility] (ZOFRAN-ODT 12-28-04 by mouth Pinky es - ) 4 MG 14:54: 00:00 every 8 Medical disintegrat 31 :00 (eight) Cente r ing tablet hours as needed for Nausea. acetaminoph 2019- No 650mg Take [address] en - 03-04 mg by [facility] - (TYLENOL) 14:54: 00:00 mouth Medica l 325 MG 31 :00 every 6 Center tablet (six) hours as needed for Pain. DAPTOmycin 2019-0 Yes 1000mg Q24H Inject [facility] (CUBICIN) 3-04 1,000 mg [facility] - in sodium 00:00: intravenou Me dical chloride 00 sly daily. Cente r (NS) NON-DEHP 50 ML IVPB acetaminoph 2019-0 2020- No 650mg Take [address] en 3-04 04-03 tablets [facility] - (TYLENOL) 00:00: 23:59 (650 mg Medi yoana 325 MG 00 :00 total) by Center tablet mouth every 6 (six) hours as needed for Fever for up to 30 days. ipratropium 2019- No 3mL Take [address] -albuterol 12-28-03 by Michael - (DUO-NEB) 00:00: 23:59 nebulizati M edical 0.5 mg-3 00 :00 on every 6 Cente r mg(2.5 mg (six) base)/3 mL hours for nebulizer 30 days. solution senna-docus 2019- No 1{tbl} Q.5D Take [address] ate 12-28- tablet by Michael - (SENOKOT S) 00:00: 23:59 mouth 2 Me dical 8.6-50 mg 00 :00 (two) Center per tablet times daily for 30 days. terazosin 2019- No 2mg QD Take 1 [facility] (HYTRIN) 2 12-28 capsule (2 Raul kes - MG capsule 00:00: 23:59 mg total) M edical 00 :00 by mouth Center nightly for 30 days. pravastatin 2019- No 20mg QD Take [address] [facility] (PRAVACHOL) 12-28 tablet (20 L ukes - 20 MG 00:00: 00:00 mg total) Medica l tablet 00 :00 by mouth Center nightly for 30 days. heparin 2019- No 150U/h Inject [facility] t infusion 12-28 150-3,500 Raulkes - 25,000 00:00: 00:00 Units/hr Medica l units in 00 :00 intravenou Cente r dextrose 5% sly (D5W) 250 continuous mL (100 . units/mL) sodium 2019-2019- No 4mL Q.5D Take [address] [facility] chloride, 12-28 by Michael - hypertonic, 00:00: 00:00 nebulizati Medical (HYPER-MERRY) 00 :00 on 2 (two) Ce nter 7 % times nebulizer daily for solution 30 days. hydrALAZINE 2019- No 10mg Inject 0.[address] (APRESOLINE 12-28 03-19 mLs (10 mg L ukes - ) 20 mg/mL 00:00: 23:59 total) Medi yoana injection 00 :00 intravenou Cent er sly every 6 (six) hours as needed for up to 15 days. bisacodyl 2020-0 2020- No 10mg Place [address] [facility] (DULCOLAX) 3- 03-14 suppositor Raul kes - 10 mg 00:00: 23:59 y (10 mg Medical suppository 00 :00 total) Center rectally daily as needed for up to 10 days. ceftaroline 2020-0 2020- No 400mg Inject [address] (TEFLARO) 3- 03-05 mg [facility] - MBP 400 mg 00:00: 00:00 intravenou Medical in 100 mL 00 :00 sly every Cente r NS 12 (twelve) hours. Aspirin 81 2020-0 Yes 81 mg = 1 Me moria MG Enteric 2-19 tab, PO, l Coated 01:34: Daily, 0 Luis Tablet 00 Refill(s) pravastatin 2020-0 Yes 80 mg = 4 M emoria 20 mg oral 2-19 tab, PO, l tablet 01:34: Bedtime, 0 Cata nn 00 Refill(s) sertraline 2020-0 Yes 50 mg = 2 Me moria 25 mg oral 2-19 tab, PO, l tablet 01:34: Daily, 0 Luis 00 Refill(s) tamsulosin 2020-0 Yes 0.4 mg = 1 M emoria 0.4 mg oral 2-19 cap, PO, l capsule 01:34: Bedtime, 0 Herm natasha 00 Refill(s) Acetaminoph 2020-0 Yes 100.4 F, M emoria en 325 MG 2-19 0 l Oral Tablet 01:34: Refill(s) H ermann 00 amLODIPine 2020-0 Yes 5 mg = 1 Mem oria 5 mg oral 2-19 tab, PO, l tablet 01:34: Daily, 0 [place] 00 Refill(s) cyclobenzap 2020-0 Yes 10 mg = 1 M emoria rine 10 mg 2-19 tab, PO, l oral tablet 01:34: Q8H, PRN He rmann 00 Muscle Spasms, 0 Refill(s) Docusate 2020-0 Yes 100 mg = 1 Mem oria Sodium 100 2-19 cap, PO, l MG Oral 01:34: BID, 0 [place] Capsule 00 Refill(s) Furosemide 2020-0 Yes 40 mg = 1 Me moria 40 MG Oral 2-19 tab, PO, l Tablet 01:34: Daily, 0 [place] 00 Refill(s) lisinopril 2020-0 Yes 20 mg = 1 Me moria 20 mg oral 2-19 tab, PO, l tablet 01:34: Daily, 0 Luis 00 Refill(s) metoprolol 2020-0 Yes 25 mg = 1 Me moria tartrate 25 2-19 tab, PO, l mg oral 01:34: Q12H, 0 Luis tablet 00 Refill(s) metroNIDAZO 2020-0 Yes 500 mg = Me moria LE 2-19 100 mL, l intravenous 01:34: IVPB, Cata nn solution 00 ABXQ8H, 0 Refill(s) ondansetron 2020-0 Yes 4 mg = 2 Me moria 2 mg/mL 2-19 mL, IVP, l injectable 01:34: Q8H, PRN Her bui solution 00 Nausea & Vomiting, 0 Refill(s) tramadol 2019-0 Yes 50 mg = 1 Mike richelle hydrochlori 2-19 tab, PO, l de 50 MG 01:34: Q6H, PRN Cata nn Oral Tablet 00 Pain Score 1-3, 0 Refill(s) cefepime 2019-0 No Notes: Memoria 2-18 (Same As: l 02:00: Maxipime) Luis MEDICATION WASTE Product Size: 1000 mg Product Wasted: ___ mg Flagyl 2019-0 No Notes: Memoria 2-18 (Same as: l 02:00: Flagyl) [place] 00 Avoid alcohol. Tylenol 2019-0 No Notes: Do Memor ia 2-18 not exceed l 01:32: 4 gm/day. [place] (Same as: Tylenol) Potassium 2019-0 No Notes: Memori a Chloride 2-17 (Same as: l 18:08: K-Dur 20) Luis 00 "Do Not Crush" Give with food and full glass of water For patients unable to swallow tablet, dissolve in one half glass of water. Allow about 2 minutes for the tablets to disintegra te. Stir before giving to prepare slurry and administer . Please exclude Patient s with feeding tube less than 14 [place] (Dwain J-tube etc) and pediatric and patients. Potassium 2020-0 No Notes: Memori a Chloride 2-17 (Same as: l 04:00: K-Dur 20) "Do Not Crush" Give with food and full glass of water For patients unable to swallow tablet, dissolve in one half glass of water. Allow about 2 minutes for the tablets to disintegra te. Stir before giving to prepare slurry and administer . Please exclude Patient s with feeding tube less than 14 [place] (Dobhoff, J-tube etc) and pediatric and patients. Lasix 2020-0 No Notes: Memoria 2-16 (Same as: l 23:45: Lasix) May cause GI upset. Give with food or milk. Potassium 2020-0 No Notes: Memori a Chloride 2-16 (Same as: l 23:23: K-Dur 20) "Do Not Crush" Give with food and full glass of water For patients unable to swallow tablet, dissolve in one half glass of water. Allow about 2 minutes for the tablets to disintegra te. Stir before giving to prepare slurry and administer . Please exclude Patient s with feeding tube less than 14 [place] (Dobhoff, J-tube etc) and pediatric and patients. tramadol 2019-0 No Notes: Not Mem oria hydrochlori 2-16 to exceed l de 50 MG 22:07: 400mg/day. 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 OPERATOR, Duration: 30 day, Stop date: 01/10/20 17:00:00 CDT metoprolol 2019-0 No Notes: Memor ia tartrate 2-16 (Same as: l 04:00: Lopressor) Pravastatin 2019-0 No Notes: Mike richelle 2-16 (Same as: l 03:00: Pravachol) tamsulosin 2019-0 No Notes: Memor ia 2-16 (Same As: l 03:00: Flomax) Luis "Do Not Crush" Lasix 0 No Notes: Memoria 2-15 (Same as: l 17:49: Lasix) Luis MEDICATION WASTE Product Size: 40 mg Product Wasted: ___ mg Amlodipine 0 No 1 cap, Memor ia 5 MG / 2-15 Route: PO, l Benazepril 15:00: Drug Form: H ermann hydrochlori 00 CAP, de 20 MG Dosing Oral Weight Capsule 122.955, kg, Daily, Start date: 12/11/19 9:00:00 ROSS FURNACE OPERATOR, Duration: 30 day, Stop date: 01/09/20 9:00:00 CDT Aspirin 81 0 No Notes: Do Me moria MG Enteric 2-15 not crush l Coated 15:00: or chew. Luis Tablet 00 (Same As: Ecotrin) Sertraline No Notes: Memor ia 2-15 (Same as: l 15:00: Zoloft) Luis Docusate 0 No Notes: Memoria 2-15 (Same as: l 15:00: Colace) [place] (Do Not Crush) amLODIPine No Notes: Memor ia 2-15 (Same as: l 15:00: Norvasc) [place] lisinopril 0 No Notes: Memor ia 2-15 (Same as: l 15:00: Prinivil, [place] 00 Zestril) Acetaminoph No Notes: Mike richelle en 325 MG / 2-15 (Same as: l Hydrocodone 04:14: [place] Cata nn Bitartrate 00 325/5) Do 5 MG Oral not exceed Tablet 4gm/day of [[place] acetaminop 5/325] hen. Dextrose No 12.5 gm, Memor ia 50% Syringe 2-15 25 mL, l (D50W) 04:10: Route: [place] 00 IVP, Drug Form: INJ, Dosing Weight 122.955, kg, PRN, PRN Blood Glucose Results, Start date: 12/10/19 22:10:00 ROSS FURNACE OPERATOR, Duration: 30 day, Stop date: 01/09/20 23:09:00 CDT, 0 Glucagon 2020-0 No 1 mg, Memoria 2-15 Route: IM, l 04:10: Drug form: PDR/INJ, PRN, Dosing Weight 122.955, kg, PRN Blood Glucose Results, Start date: 12/10/19 22:10:00 ROSS FURNACE OPERATOR, Duration: 30 day, Stop date: 01/09/20 23:09:00 CDT, 0 Ondansetron 2019-0 No Notes: Mike richelle 2-15 (Same as: l 04:10: Zofran) MEDICATION WASTE Product Size: 4 mg Product Wasted: ___ mg BD Normal 2019-0 No Notes: Memori a Saline 2-15 Same as: l Flush 03:33: BD Posiflush Sterile Sodium 2019-0 No 250 mL, Memoria Chloride 2-15 Route: l 0.9% IV 03:33: IVPB, Start date: 12/10/19 21:33:00 ROSS FURNACE OPERATOR, Duration: 30 day, Stop date: 01/09/20 22:32:00 CDT, PRN Line Flush, 0 Cephalexin Yes 500 mg = 1 M emoria 500 MG Oral 4-11 cap, PO, l Capsule 13:43: QID, X 7 Kameron n [Keflex] 00 day, # 28 cap, 0 Refill(s), Pharmacy: [id number] Metolazone 2017- Yes 2.5 mg = 1 M emoria 2.5 MG Oral 1-07 tab, PO, l Tablet 15:10: Daily, # 30 tab, 3 Refill(s), Pharmacy: [id number] Metolazone 2017- No 2.5 mg = 1 M emoria 2.5 MG Oral 7-17 tab, PO, l Tablet 17:38: Daily, # 30 tab, 3 Refill(s), Pharmacy: [id number] Metolazone 2017- Yes 2.5 mg = 1 M emoria 2.5 MG Oral 5-08 tab, PO, l Tablet 17:57: Daily, # 30 tab, 6 Refill(s), Pharmacy: [id number] labetalol Yes 100 mg = 1 Me moria 100 mg oral 3-19 tab, PO, l tablet 17:14: BID, # 60 Kameron n 00 tab, 3 Refill(s), other magnesium Yes 400 mg = 1 Me moria oxide 400 3-19 tab, PO, l mg oral 16:37: BID, 0 [place] tablet 00 Refill(s) Hydrochloro Yes 25 mg, PO, Memoria thiazide 3-19 Daily, 0 l 16:36: Refill(s) [place] Garlic Oil Yes 1,000 mg Mem oria oral 3-19 =, PO, l capsule 16:35: Daily, Luis 00 TAKES 1-2 TABLET, 0 Refill(s) Naproxen Yes 220 mg = 1 Mem oria sodium 220 3-19 cap, PO, l MG Oral 16:15: PRN, 0 [place] Capsule 00 Refill(s) [Aleve] LOVAZA 1 GM Yes Take one Me moria CAPS 7-13 tab twice l 11:44: daily Luis ZOLOFT 25 Yes one daily Mem oria MG TABS 7-13 l 11:44: Luis TERAZOSIN No Take one Mike richelle HCL 10 MG 7-13 tab daily l CAPS 00:00: TERAZOSIN Yes Take one Mike richelle HCL 10 MG 7-06 tab daily l CAPS 09:14: PRAVASTATIN Yes one by Mike richelle SODIUM 80 7-05 mouth l MG TABS 00:00: daily at Kameron bedtime HYDROCHLORO Yes one daily M emoria THIAZIDE 25 7-01 l MG TABS 00:00: HYDROCHLORO Yes one daily M emoria THIAZIDE 25 7-01 l MG TABS 00:00: PRAVASTATIN Yes Take two Me moria SODIUM 40 6-29 tabs by l MG TABS 11:03: mouth once Herm natasha daily LOTREL Yes Take one Memoria 10-40 MG 6-29 tab daily l CAPS 00:00: SPIRONOLACT No 1 tablet Me moria ONE 25 MG 6-29 daily l TABS 00:00: FUROSEMIDE 2014-0 No one by Memor ia 40 MG TABS 6-29 mouth l 00:00: daily LOTREL 5-20 2014-0 Yes one by Mike richelle MG CAPS 6-29 mouth l 00:00: daily SPIRONOLACT 2014-0 No 1 tablet Me moria ONE 25 MG 6-29 daily l TABS 00:00: FUROSEMIDE 2014-0 No one by Memor ia 40 MG TABS 6-29 mouth l 00:00: daily LOTREL Yes Take one Memoria 10-40 MG 6-22 tab daily l CAPS 08:21: LOTREL 2013-10 Yes Take one Memoria 10-40 MG 2-22 tab daily l CAPS 08:47: METOLAZONE 2013-10 Yes 1/2 TAB PO M emoria 2.5 MG TABS 0-30 DAILY l 00:00: HYDROCHLORO 2013-10 No Take one Me moria THIAZIDE 25 0-30 tab daily l MG TABS 00:00: METOLAZONE 2013-10 Yes 1/2 TAB PO M emoria 2.5 MG TABS 0-30 DAILY l 00:00: METOLAZONE 2013-10 Yes 1/2 TAB PO M emoria 2.5 MG TABS 0-30 DAILY l 00:00: HYDROCHLORO 2013-10 No Take one Me moria THIAZIDE 25 0-30 tab daily l MG TABS 00:00: HYDROCHLORO 2013-0 Yes Take one Me moria THIAZIDE 25 9-22 tab daily l MG TABS 09:50: TAMSULOSIN 2013- Yes 1 tablet Mem oria HCL 0.4 MG 9-22 at bedtime l CAPS 00:00: LABETALOL 0 Yes Take 1 tab Me moria HCL 200 MG 9-11 by mouth l TABS 00:00: twice daily LABETALOL 2013-0 Yes Take 1 tab Me moria HCL 200 MG 9-11 by mouth l TABS 00:00: twice daily SERTRALINE 2013-0 Yes Take one Mem oria HCL 50 MG 7-09 tab daily l TABS 06:16: LOVAZA 1 GM Yes Take one Me moria CAPS 7-09 tab twice l 06:16: daily Luis 00 LABETALOL Yes Take 1/2 Mike richelle HCL 200 MG 7-09 tab by l TABS 06:16: mouth Suring twice daily tamsulosin Yes 0 Memoria 0.4 mg oral 7-08 Refill(s) l capsule 15:19: sertraline Yes 0 Memoria 25 mg oral 7-08 Refill(s) l tablet 15:19: pravastatin Yes 0 Memori a 80 mg oral 7-08 Refill(s) l tablet 15:19: Lovaza Yes 0 Memoria 7-08 Refill(s) l 15:19: labetalol Yes 0 [facility] 200 mg oral 7-08 Refill(s) l tablet 15:19: Hydrochloro Yes 0 Memori a thiazide 7-08 Refill(s) l 15:18: Aspirin 81 Yes 0 Memoria MG Enteric 7-08 Refill(s) l Coated 15:18: Tablet 00 Amlodipine Yes 0 Memoria 5 MG / 7-08 Refill(s) l Benazepril 15:18: hydrochlori 00 de 20 MG Oral Capsule Aleve Yes 0 Memoria 7-08 Refill(s) l 15:17: Saline No Notes: Memoria Flush 0.9% 708 (Same as: l 14:39: BD Posiflush) ASPIRIN 81 Yes Take one Mem oria MG TABS 2-24 tab by l 00:00: mouth Suring 00 every day PLAVIX 75 No Take one Mike richelel MG TABS 2-24 tab daily l 00:00: (on hold) PLAVIX 75 No Take one Mike richelle MG TABS 2-24 tab daily l 00:00: (on hold) Immunizations Ordered Immunization Filled Immunization Date Status Commen ts Source Name Name Pneumococcal 2020-01-[address] [facility] Vital Signs Vital Name Observation Time Observation Value Comments Source Systolic blood 2020-01-27 23:30:00 136 mm[Hg] [facility] Diastolic blood 2020-01-27 23:30:00 78 mm[Hg] [facility] Heart rate 2020-01-27 23:30:00 63 /min [facility] Respiratory rate 2020-01-27 23:30:00 15 /min [facility] Oxygen saturation in 2020-01-27 23:30:00 98 /min [facility] - Arterial blood by Medical Ce nter Pulse oximetry Body temperature 2020-01-27 19:00:00 36.67 Reji [facility] Body height 2020-01-27 07:00:00 193 cm [facility] Body weight Measured 2020-01-27 07:00:00 109.7 kg [facility] BMI 2020-01-27 07:00:00 29.45 kg/m2 [facility] Heart Rate 2019-12-15 02:00:00 [facility] Respitory Rate 2019-12-15 02:00:00 Memori al Luis Systolic (mm Hg) 2019-12-15 02:00:00 Mike rial [place] Diastolic (mm Hg) 2019-12-15 02:00:00 Mem orial Luis Heart Rate 2019-12-14 22:00:00 [facility] Respitory Rate 2019-12-14 22:00:00 Memori al Luis Systolic (mm Hg) 2019-12-14 22:00:00 Mike rial Suring Diastolic (mm Hg) 2019-12-14 22:00:00 Mem orial [facility]uring Heart Rate 2019-12-14 18:00:00 [facility] Respitory Rate 2019-12-14 18:00:00 Memori al [facility]uring Systolic (mm Hg) 2019-12-14 18:00:00 Mike rial Suring Diastolic (mm Hg) 2019-12-14 18:00:00 Mem orial Luis Temperature Oral (F) 2019-12-11 14:26:00 99.9 F [facility] Temperature Oral (F) 2019-12-11 09:51:00 99.7 F [facility] Temperature Oral (F) 2019-12-11 06:00:00 98.9 F [facility] Height 2019-12-11 02:49:00 182.88 cm [facility] Weight 2019-12-11 02:49:00 [facility] BMI Calculated 2019-12-11 02:49:00 Memori al Luis Weight 2019-02-11 13:55:00 [facility] BMI Calculated 2019-02-11 13:55:00 Memori al Luis Height 2019-02-11 13:55:00 182.88 cm [facility] Systolic (mm Hg) 2019-02-11 13:55:00 Mike rial Luis Diastolic (mm Hg) 2019-02-11 13:55:00 Mem orial Luis Temperature Oral (F) 2019-02-11 13:55:00 98.2 F [facility] Heart Rate 2019-02-11 13:55:00 [facility] BMI Calculated 2019-02-04 13:05:00 Robinaori al Suring Weight 2019-02-04 13:05:00 [facility] Height 2019-02-04 13:05:00 182.88 cm [facility] Heart Rate 2019-02-04 13:05:00 [facility] Temperature Oral (F) 2019-02-04 13:05:00 98.6 F [facility] Systolic (mm Hg) 2019-02-04 13:05:00 Mike rial Suring Diastolic (mm Hg) 2019-02-04 13:05:00 Mem orial Suring BMI Calculated 2018-01-12 16:06:00 Robinaori al Luis Weight 2018-01-12 16:06:00 [facility] Height 2018-01-12 16:06:00 182.88 cm [facility] Systolic (mm Hg) 2018-01-12 16:06:00 Mike rial Suring Diastolic (mm Hg) 2018-01-12 16:06:00 Mem orial Luis Heart Rate 2018-01-12 16:06:00 [facility] Temperature Oral (F) 2018-01-12 16:06:00 98.0 F [facility] Weight 2015-05-08 16:44:02 [facility] Temperature Oral (F) 2015-05-08 16:44:02 97.8 F [facility] Systolic (mm Hg) 2015-05-08 16:44:02 Mike rial Suring Diastolic (mm Hg) 2015-05-08 16:44:02 Mem orial Luis Heart Rate 2015-05-08 16:44:02 [facility] Weight 2015-05-01 12:43:22 [facility] Temperature Oral (F) 2015-05-01 12:43:22 98.0 F [facility] Systolic (mm Hg) 2015-05-01 12:43:22 Mike rial Luis Diastolic (mm Hg) 2015-05-01 12:43:22 Mem orial Suring Heart Rate 2015-05-01 12:43:22 [facility] Weight 2015-04-24 13:12:52 [facility] Heart Rate 2015-04-24 13:12:52 [facility] Systolic (mm Hg) 2015-04-24 13:12:52 Mike rial Luis Diastolic (mm Hg) 2015-04-24 13:12:52 Mem orial Suring Temperature Oral (F) 2015-04-24 13:12:52 97.9 F [facility] Weight 2015-04-17 13:21:41 [facility] Weight 2014-10-17 14:47:31 [facility] Temperature Oral (F) 2014-10-17 14:47:31 98.1 F [facility] Systolic (mm Hg) 2014-10-17 14:47:31 Mike rial Luis Diastolic (mm Hg) 2014-10-17 14:47:31 Mem orial Suring Heart Rate 2014-10-17 14:47:31 [facility] Weight 2014-07-18 14:50:00 [facility] Systolic (mm Hg) 2014-07-18 14:50:00 Mike rial Suring Diastolic (mm Hg) 2014-07-18 14:50:00 Mem orial Suring Heart Rate 2014-07-18 14:50:00 [facility] Temperature Oral (F) 2014-07-18 14:50:00 97.9 F [facility] Respitory Rate 2014-07-18 14:50:00 Memori al Suring Weight 2014-07-07 15:11:22 [facility] Systolic (mm Hg) 2014-07-07 15:11:22 Mike rial Luis Diastolic (mm Hg) 2014-07-07 15:11:22 Mem orial Luis Heart Rate 2014-07-07 15:11:22 [facility] Respitory Rate 2014-07-07 15:11:22 Memori al Suring Temperature Oral (F) 2014-07-07 15:11:22 98.7 F [facility] Diastolic (mm Hg) 2014-05-03 16:50:00 Mem orial Luis Heart Rate 2014-05-03 16:50:00 [facility] Respitory Rate 2014-05-03 16:50:00 Memori al Suring Systolic (mm Hg) 2014-05-03 16:50:00 Mike rial Luis Weight 2014-05-03 14:25:00 [facility] BMI Calculated 2014-05-03 14:25:00 Memori al Suring Height 2014-05-03 14:25:00 182.88 cm [facility] Systolic (mm Hg) 2014-05-03 14:25:00 Mike rial Suring Respitory Rate 2014-05-03 14:25:00 Memori al Suring Heart Rate 2014-05-03 14:25:00 [facility] Diastolic (mm Hg) 2014-05-03 14:25:00 Mem orial Luis Temperature Oral (F) 2014-05-03 14:25:00 98.1 F [facility] Weight 2013-12-20 17:14:00 [facility] Height 2013-12-20 17:14:00 [facility] Systolic (mm Hg) 2013-12-20 17:14:00 Mike rial Luis Diastolic (mm Hg) 2013-12-20 17:14:00 Mem orial Suring Heart Rate 2013-12-20 17:14:00 [facility] Procedures Procedure Date / Time Performing Clinician Source Performed ARRYTHMIA IMPLANT REPORT 2020-02-01 10:41:12 Provider, Default [facility] CARDIAC CATH REPORT - 2020-01-31 08:40:25 Provider, Default [facility] - [facility] Center ARRYTHMIA IMPLANT REPORT 2020-01-31 08:40:23 Provider, Default [facility] RHYTHM STRIP - SCAN 2020-01-31 08:40:18 Provider, Default [facility] POCT-GLUCOSE METER 2020-01-27 17:58:00 Sara Manjarrez [facility] POCT-GLUCOSE METER 2020-01-27 13:44:00 Josseline merly [facility] CBC (HEMOGRAM ONLY) 2020-01-27 04:57:00 Sara Manjarrez [facility] BASIC METABOLIC PANEL (7) 2020-01-27 04:57:00 Lyn Phipps [facility] MAGNESIUM 2020-01-27 04:57:00 Lyn Phipps [facility] POCT-GLUCOSE METER 2020-01-27 03:43:00 Josseline merly [facility] POCT-GLUCOSE METER 2020-01-26 18:14:00 Josseline [facility] REPORT OF PROCEDURE - 2020-01-26 14:33:29 [facility] UPPER ENDOSCOPY,PEG 2020-01-26 14:00:00 Yesenia Crowe [facility] POCT-GLUCOSE METER 2020-01-26 12:38:00 Sara Manjarrez [facility] CBC (HEMOGRAM ONLY) 2020-01-26 05:23:00 Sara Manjarrez [facility] BASIC METABOLIC PANEL (7) 2020-01-26 05:23:00 Sara Manjarrez [facility] POCT-GLUCOSE METER 2020-01-26 00:16:00 Josseline merly [facility] ECHOCARDIOGRAM REPORT - 2020-01-25 21:10:30 Provider, Donna [facility] TROPONIN I 2020-01-25 17:56:00 Josseline merly [facility] POCT-GLUCOSE METER 2020-01-25 15:32:00 Josseline [facility] POCT-GLUCOSE METER 2020-01-25 12:14:00 Josseline [facility] CREATINE KINASE (CK) 2020-01-25 05:26:00 Karuna Weeks [facility] BASIC METABOLIC PANEL (7) 2020-01-25 05:26:00 Sara Manjarrez [facility] TROPONIN I 2020-01-25 05:26:00 Sara Manjarrez [facility] CBC W/PLT COUNT & AUTO 2020-01-25 05:26:00 Sara Manjarrez [facility] XR CHEST 1 VIEW 2020-01-25 00:23:00 Niyah Montilla [facility] - PORTABLE/BEDSIDE [facility] TROPONIN I 2020-01-25 00:12:00 Sara Manjarrez [facility] GLUCOSE 2020-01-25 00:12:00 Sara Manjarrez [facility] ECG 12-LEAD 2020-01-24 22:42:36 Sunday Mojica Niyah [facility] LIMITED 2D ECHOCARDIOGRAM 2020-01-24 19:00:54 Russell Montilla [facility] XR CHEST 1 VIEW 2020-01-24 16:27:00 Niyha Montilla [facility] - PORTABLE/BEDSIDE [facility] POCT-GLUCOSE METER 2020-01-24 15:43:00 Sara Manjarrez [facility] ECG 12-LEAD 2020-01-24 15:22:15 Unknown, Hl7 Doctor [facility] AICD GENERATOR & LEADS - 2020-01-24 10:46:00 Phan Montilla cia [facility] - INSERTION W/ GENERAL [facility] ter ANESTHESIA (SING/DUAL/MULT) POCT-GLUCOSE METER 2020-01-24 04:52:00 Sara Manjarrez [facility] CBC (HEMOGRAM ONLY) 2020-01-24 02:47:00 Sara Manjarrez [facility] BASIC METABOLIC PANEL (7) 2020-01-24 02:47:00 Juanita Almodovar [facility] MAGNESIUM 2020-01-24 02:47:00 Scooby Juanita Amish [facility] CBC (HEMOGRAM ONLY) 2020-01-23 03:27:00 Josseline [facility] POCT-GLUCOSE METER 2020-01-22 17:48:00 Josseline [facility] POCT-GLUCOSE METER 2020-01-22 12:18:00 Josseline, [facility] POCT-GLUCOSE METER 2020-01-22 06:11:00 Josseline [facility] CBC (HEMOGRAM ONLY) 2020-01-22 03:53:00 Josseline [facility] POCT-GLUCOSE METER 2020-01-21 23:45:00 Josseline [facility] POCT-GLUCOSE METER 2020-01-21 17:58:00 Josseline [facility] POCT-GLUCOSE METER 2020-01-21 11:57:00 Josseline [facility] POCT-GLUCOSE METER 2020-01-21 06:25:00 Josseline, [facility] BASIC METABOLIC PANEL (7) 2020-01-21 04:42:00 Sara Manjarrez [facility] CBC (HEMOGRAM ONLY) 2020-01-21 04:42:00 Josseline [facility] XR CHEST 1 VIEW 2020-01-21 03:10:00 [facility] POCT-GLUCOSE METER 2020-01-20 23:16:00 Josseline [facility] POCT-GLUCOSE METER 2020-01-20 18:20:00 Josseline, [facility] POCT-GLUCOSE METER 2020-01-20 13:14[facility]SE [facility] 2020-01-20 05:33:00 Josseline [facility] CBC (HEMOGRAM ONLY) 2020-01-20 04:57:00 Josseline [facility] BASIC METABOLIC PANEL (7) 2020-01-20 04:49:00 Sara Manjarrez [facility] HEPATIC FUNCTION PANEL 2020-01-20 04:49:00 [facility] 2020-01-20 04:49:00 Josseline [facility] POCT-GLUCOSE METER 2020-01-19 23:52:00 Josseline [facility] APTT 2020-01-19 12:22:[address] [facility] CT CHEST WITHOUT IV 2020-01-19 10:53:00 Narendra [facility] POCT-GLUCOSE METER 2020-01-19 05:59:00 Josseline [facility] BASIC METABOLIC PANEL (7) 2020-01-19 04:59:00 Sara Manjarrez [facility] HEPATIC FUNCTION PANEL 2020-01-19 04:59:00 Josseline [facility] PT/APTT 2020-01-19 04:59:00 Josseline [facility] C-REACTIVE PROTEIN 2020-01-19 04:59:00 Narendra [facility] CREATINE KINASE (CK) 2020-01-19 04:59:00 Narendra [facility] MAGNESIUM 2020-01-19 04:59:00 Josseline [facility] CBC (HEMOGRAM ONLY) 2020-01-19 04:59:00 Josseline [facility] APTT 2020-01-18 23:15:00 Josseline [facility] POCT-GLUCOSE METER 2020-01-18 23:14:00 Josseline [facility] POCT-GLUCOSE METER 2020-01-18 17:39:00 [facility] THORACENTESIS 2020-01-18 16:56:00 Josseline [facility] APTT 2020-01-18 16:51:00 Sara Manjarrez [facility] BLOOD CULTURE 2020-01-18 16:50:00 Ajith Mackey [facility] BODY FLUID CULTURE + GRAM 2020-01-18 16:21:00 Sara Manjarrez [facility] FUNGUS CULTURE + SMEAR 2020-01-18 16:21:00 [facility] BODY FLUID CELL COUNT 2020-01-18 16:20:00 Sara Manjarrez [facility] WITH DIFFERENTIAL [facility] Center GLUCOSE PLEURAL FLUID 2020-01-18 16:20:00 [facility] PROTEIN, TOTAL, PLEURAL 2020-01-18 16:20:00 [facility] LACTATE DEHYDROGENASE 2020-01-18 16:20:00 Sara Manjarrez [facility] (LD), PLEURAL FLUID Medical [facility] er CYTOLOGY 2020-01-18 16:20:00 Sara Manjarrez [facility] XR CHEST 1 VIEW 2020-01-18 15:53:00 Cassidy Parra [facility] - PORTABLE/BEDSIDE [facility] POCT-GLUCOSE METER 2020-01-18 12:04:00 Sara Manjarrez [facility] XR CHEST 1 VIEW 2020-01-18 04:56:00 Sara Manjarrez [facility] PORTABLE/BEDSIDE [facility] BASIC METABOLIC PANEL (7) 2020-01-18 04:10:00 Sara Manjarrez [facility] HEPATIC FUNCTION PANEL 2020-01-18 04:10:00 Sara Manjarrez [facility] PT/APTT 2020-01-18 04:10:00 [facility] CREATINE KINASE (CK) 2020-01-18 04:10:00 Josseline [facility] LACTATE DEHYDROGENASE 2020-01-18 04:10:00 Sara Manjarrez [facility] ([facility]) [facility] CBC (HEMOGRAM ONLY) 2020-01-18 04:10:00 Sara Manjarrez [facility] POCT-GLUCOSE METER 2020-01-18 00:34:00 Josseline [facility] PLATELET COUNT 2020-01-17 21:22:00 Josseline [facility] APTT 2020-01-17 21:22:00 Josseline [facility] POCT-GLUCOSE METER 2020-01-17 18:41:00 Josseline [facility] RHYTHM STRIP - SCAN 2019-12-31 14:21:46 Provider, Default [facility] ARRYTHMIA IMPLANT REPORT 2019-12-31 14:21:35 Provider, Default [facility] POCT-GLUCOSE METER 2019-12-30 12:28:00 [facility] POCT-GLUCOSE METER 2019-12-30 06:13:00 Americo [facility] MAGNESIUM 2019-12-30 04:06:00 Carmen [facility] CALCIUM, IONIZED 2019-12-30 04:06:00 [facility] COMPREHENSIVE METABOLIC 2019-12-30 04:06:00 [facility] PHOSPHORUS 2019-12-30 04:06:00 [facility] APTT 2019-12-30 04:06:00 Dylan Leach [facility] CBC W/PLT COUNT & AUTO 2019-12-30 04:06:00 Carmen [facility] POCT-GLUCOSE METER 2019-12-29 21:56:00 Americo [facility] POTASSIUM 2019-12-29 21:54:00 Carmen [facility] MAGNESIUM 2019-12-29 21:54:00 Carmen [facility] POCT-GLUCOSE METER 2019-12-29 18:13:00 Tyrone Driscoll [facility] POCT-GLUCOSE METER 2019-12-29 12:15:00 Tyrone Driscoll [facility] APTT 2019-12-29 04:22:00 Dylan Leach [facility] MAGNESIUM 2019-12-29 04:21:00 Carmen [facility] CALCIUM, IONIZED 2019-12-29 04:21:[address] [facility] COMPREHENSIVE METABOLIC 2019-12-29 04:21:[address] [facility] PHOSPHORUS 2019-12-29 04:21:00 [facility]co [facility] B-TYPE NATRIURETIC FACTOR 2019-12-29 04:21:00 Francesco [facility] (BNP) [facility] CBC W/PLT COUNT & AUTO 2019-12-29 04:21:00 Carmen [facility] DIFFERENTIAL [facility] POCT-GLUCOSE METER 2019-12-29 00:38:00 Tyrone Driscoll [facility] POTASSIUM 2019-12-29 00:33:00 Carmen [facility] POCT-GLUCOSE METER 2019-12-28 18:55:00 Americo [facility] TRANSFUSION SERVICE 2019-12-28 18:13:35 Jai [facility] REPORT - SCAN [facility] BASIC METABOLIC PANEL (7) 2019-12-28 17:08:00 Peter Montenegro [facility] APTT 2019-12-28 17:08:00 Hany [facility] APTT 2019-12-28 12:29:00 Hany [facility] POCT-GLUCOSE METER 2019-12-28 12:10:00 Americo [facility] POCT-GLUCOSE METER 2019-12-28 06:45:00 Osmani Justice [facility] MAGNESIUM 2019-12-28 04:35:00 Carmen [facility] CALCIUM, IONIZED 2019-12-28 04:35:[address] [facility] COMPREHENSIVE METABOLIC 2019-12-28 04:35:[address] [facility] PHOSPHORUS 2019-12-28 04:35:00 [facility] 2019-12-28 04:35:00 Dylan Leach [facility] BLOOD GAS, ARTERIAL 2019-12-28 04:35:[address] [facility] CBC W/PLT COUNT & AUTO 2019-12-28 04:35:00 Carmen [facility] DIFFERENTIAL [facility] XR CHEST 1 VIEW 2019-12-28 04:16:00 Carmen [facility] - PORTABLE/BEDSIDE [facility] POCT-GLUCOSE METER 2019-12-28 00:01:00 Osmani Justice [facility] PREPARE LEUKO-REDUCED RBC 2019-12-27 23:54:00 Kacy Whelan CH, I [facility] MAGNESIUM 2019-12-27 23:14:00 Carmen [facility] POTASSIUM 2019-12-27 23:14:00 Carmen [facility] POCT-GLUCOSE METER 2019-12-27 18:23:00 Osmani Justice [facility] TRANSFUSION SERVICE 2019-12-27 17:51:23 Jai, Donna [facility] REPORT - SCAN Scanning [facility] CBC W/PLT COUNT & AUTO 2019-12-27 17:45:[address] [facility] DIFFERENTIAL [facility] POTASSIUM 2019-12-27 15:14:00 Carmen [facility] MAGNESIUM 2019-12-27 15:14:00 Carmen [facility] POCT-GLUCOSE METER 2019-12-27 14:07:00 Osmani Justice [facility] ECG 12-LEAD 2019-12-27 10:26:23 Unknown, Hl7 Doctor [facility] PREPARE LEUKO-REDUCED RBC 2019-12-27 07:27:00 Kacy Whelan [facility] POCT-GLUCOSE METER 2019-12-27 06:35:00 Osmani Justice [facility] BASIC METABOLIC PANEL (7) 2019-12-27 04:21:00 Joyce Morales [facility] MAGNESIUM 2019-12-27 04:21:00 [facility] 2019-12-27 04:21:00 Hany [facility] HEMOGLOBIN AND HEMATOCRIT 2019-12-27 04:21:00 Kacy Whelan [facility] CBC W/PLT COUNT & AUTO 2019-12-27 04:21:00 [facility] BLOOD GAS, ARTERIAL 2019-12-27 04:16:00 Osmani Justice [facility] XR CHEST 1 VIEW 2019-12-27 03:28:00 [facility] HEMOGLOBIN AND HEMATOCRIT 2019-12-26 23:59:00 Kacy Whelan [facility] POTASSIUM 2019-12-26 23:59:00 [facility] POCT-GLUCOSE METER 2019-12-26 23:57:00 Osmani Justice [facility] APTT 2019-12-26 22:22:00 Dylan Leach [facility] POCT-GLUCOSE METER 2019-12-26 17:21:00 Osmani Justice [facility] POTASSIUM 2019-12-26 17:16:00 [facility]UM 2019-12-26 17:16:00 Carmen [facility] HEMOGLOBIN AND HEMATOCRIT 2019-12-26 14:33:00 [facility] TRANSFUSE LEUKO-REDUCED 2019-12-26 13:49:29 Tip [facility] RED BLOOD CELLS [facility] POCT-GLUCOSE METER 2019-12-26 13:20:00 Vinh [facility] APTT 2019-12-26 09:03:00 Hany [facility] TYPE AND SCREEN, 2019-12-26 09:03:00 Tip [facility] AUTOMATED [facility] HEMOGLOBIN AND HEMATOCRIT 2019-12-26 07:59:00 Tip [facility] POCT-GLUCOSE METER 2019-12-26 06:18:00 Vinh [facility] XR CHEST 1 VIEW 2019-12-26 06:12:00 Carmen [facility] PORTABLE/BEDSIDE [facility] BLOOD GAS, ARTERIAL 2019-12-26 04:03:00 Carmen [facility] BASIC METABOLIC PANEL (7) 2019-12-26 02:48:00 Joyce Morales [facility] MAGNESIUM 2019-12-26 02:48:00 Carmen [facility] APTT 2019-12-26 02:48:00 Hany [facility] CBC W/PLT COUNT & AUTO 2019-12-26 02:48:00 [facility] DIFFERENTIAL [facility] POCT-GLUCOSE METER 2019-12-25 23:49:00 Vinh [facility] APTT 2019-12-25 19:35:00 Hany [facility] POCT-GLUCOSE METER 2019-12-25 18:13:00 Vinh [facility] APTT 2019-12-25 18:10:00 Hany [facility] EOSINOPHIL SMEAR, URINE 2019-12-25 18:10:00 Toney Alicea [facility] PROTEIN, RANDOM URINE 2019-12-25 18:10:00 Toney Alicea [facility] CREATININE, RANDOM URINE 2019-12-25 18:10:00 Toney Alicea [facility] SODIUM, RANDOM URINE 2019-12-25 18:10:00 Toney Alicea [facility] TRANSFUSION SERVICE 2019-12-25 17:51:33 Jai [facility] BLOOD CULTURE 2019-12-25 13:24:00 Tip [facility] BLOOD CULTURE 2019-12-25 13:19:00 Tip [facility] POCT-GLUCOSE METER 2019-12-25 12:28:00 Osmani Justice [facility] APTT 2019-12-25 12:07:00 Hany [facility] MAGNESIUM 2019-12-25 06:46:00 Carmen [facility] COMPREHENSIVE METABOLIC 2019-12-25 06:46:[address] [facility] PHOSPHORUS 2019-12-25 06:46:00 Francesco [facility] POCT-GLUCOSE METER 2019-12-25 06:46:00 Osmani Justice [facility] US RENAL COMPLETE 2019-12-25 06:31:00 Francesco [facility] APTT 2019-12-25 04:43:00 Hany [facility] BLOOD GAS, ARTERIAL 2019-12-25 04:42:00 Carmen [facility] CALCIUM, IONIZED 2019-12-25 04:42:[address] [facility] COMPLEMENT COMPONENT C4 2019-12-25 04:42:00 [facility] CBC W/PLT COUNT & AUTO 2019-12-25 04:42:00 Carmen [facility] XR CHEST 1 VIEW 2019-12-25 02:59:00 Joyce Morales [facility] [facility] - PORTABLE/BEDSIDE [facility] POCT-GLUCOSE METER 2019-12-25 01:15:00 Osmani Justice [facility] PREPARE LEUKO-REDUCED RBC 2019-12-24 23:54:00 Richmond Montano [facility] TRANSFUSION SERVICE 2019-12-24 17:52:21 Donna Vergara [facility] - SCAN [facility] POCT-GLUCOSE METER 2019-12-24 17:45:00 Vinh [facility] EEG AWAKE AND DROWSY 2019-12-24 15:37:00 Sara Manjarrez [facility] SPUTUM CULTURE + GRAM 2019-12-24 14:05:[address] [facility] STAIN [facility] POCT-GLUCOSE METER 2019-12-24 11:58:00 Osmani Justice [facility] XR CHEST 1 VIEW 2019-12-24 09:50:[address] [facility] PORTABLE/BEDSIDE [facility] BLOOD CULTURE 2019-12-24 09:29:00 Carmen [facility] BASIC METABOLIC PANEL (7) 2019-12-24 09:29:00 Joyce Morales [facility] CREATINE KINASE (CK) 2019-12-24 09:29:00 Cristela De Jesus [facility] BLOOD GAS, ARTERIAL 2019-12-24 07:34:00 Carmen [facility] POCT-GLUCOSE METER 2019-12-24 06:19:00 Vinh [facility] LACTIC ACID, ARTERIAL 2019-12-24 03:24:00 Carmen [facility] BASIC METABOLIC PANEL (7) 2019-12-24 03:24:00 Joyce Morales [facility] MAGNESIUM 2019-12-24 03:24:00 [place], [facility] CBC W/PLT COUNT & AUTO 2019-12-24 03:24:00 Carmen [facility] APTT 2019-12-24 02:30:00 Hany [facility] POCT-GLUCOSE METER 2019-12-24 00:10:00 Vinh [facility] APTT 2019-12-23 19:41:00 Hany [facility] POCT-GLUCOSE METER 2019-12-23 18:19:00 iVnh [facility] P.E.T./CT WHOLE BODY PI 2019-12-23 18:12:00 [facility] POCT-[facility]SE METER 2019-12-23 15:26:00 Vinh [facility] POCT-GLUCOSE METER 2019-12-23 13:45:00 Vinh [facility] BLOOD GAS, ARTERIAL 2019-12-23 13:41:00 Carmen [facility] LACTIC ACID, ARTERIAL 2019-12-23 13:38:00 Carmen [facility] APTT 2019-12-23 13:37:00 Hany [facility] CORTISOL 2019-12-23 13:37:00 Carmen [facility] HEMOGLOBIN AND HEMATOCRIT 2019-12-23 13:37:00 Joyce Morales [facility] RESPIRATORY PANEL [facility] 2019-12-23 13:31:00 MaritodaNelly ag [facility] BASIC METABOLIC PANEL (7) 2019-12-23 12:47:00 Joyce Morales [facility] MAGNESIUM 2019-12-23 12:47:00 Carmen [facility] BLOOD CULTURE 2019-12-23 10:51:00 [facility] 2019-12-23 10:35:00 Dylan Leach [facility] CBC W/PLT COUNT & AUTO 2019-12-23 10:35:00 Joyce Morales [facility] DIFFERENTIAL [facility] BLOOD CULTURE 2019-12-23 09:45:00 Natty [facility] URINALYSIS W/ REFLEX 2019-12-23 09:21:00 Natty [facility] URINE CULTURE [facility] TRANSFUSE LEUKO-REDUCED 2019-12-23 08:32:45 [facility] - RED BLOOD CELLS [facility] POCT-GLUCOSE METER 2019-12-23 06:47:00 Osmani Justice [facility] BLOOD GAS, ARTERIAL 2019-12-23 05:29:00 Tyrone Hernandez [facility] TYPE AND SCREEN, 2019-12-23 03:53:00 Charmaine [facility] es - AUTOMATED [facility] BASIC METABOLIC PANEL (7) 2019-12-23 02:31:00 Joyce Morales [facility] MAGNESIUM 2019-12-23 02:31:00 Joyce Morales [facility] CBC W/PLT COUNT & AUTO 2019-12-23 02:31:00 [facility] DI[facility]ENTIAL [facility] BLOOD GAS, ARTERIAL 2019-12-23 02:25:00 Charmaine [facility] APTT 2019-12-23 02:24:00 [facility] XR CHEST 1 VIEW 2019-12-23 01:29:00 Charmaine [facility] - PORTABLE/BEDSIDE [facility] POCT-GLUCOSE METER 2019-12-23 01:08:00 Osmani Justice [facility] BLOOD GAS, ARTERIAL 2019-12-23 00:57:00 Charmaine [facility] POCT-GLUCOSE METER 2019-12-22 23:30:00 Osmani Justice [facility] APTT 2019-12-22 18:14:00 Hany [facility] POTASSIUM 2019-12-22 18:14:00 Carmen [facility] POCT-GLUCOSE METER 2019-12-22 18:12:00 Osmani Justice [facility] XR ABDOMEN / KUB 1 VIEW 2019-12-22 15:03:00 Carmen [facility] POCT-GLUCOSE METER 2019-12-22 12:36:00 Osmani Justice [facility] APTT 2019-12-22 12:06:00 Hany [facility] MAGNESIUM 2019-12-22 12:06:[address] [facility] 2019-12-22 12:06:00 Carmen [facility] BLOOD CULTURE 2019-12-22 10:28:00 Maxi [facility] B-TYPE NATRIURETIC FACTOR 2019-12-22 09:47:00 Joyce Morales [facility] (BNP) [facility] BLOOD GAS, ARTERIAL 2019-12-22 09:46:00 [facility] BLO[facility] 2019-12-22 09:39:00 Maxi [facility] XR CHEST 1 VIEW 2019-12-22 08:21:00 [facility] HEMOGLOBIN AND HEMATOCRIT 2019-12-22 07:56:00 Joyce Morales [facility] APTT 2019-12-22 07:56:00 [facility] POCT-GLUCOSE METER 2019-12-22 06:10:00 Josseline, Amer [facility] APTT 2019-12-22 06:07:00 Hany [facility] BASIC METABOLIC PANEL (7) 2019-12-22 04:59:00 Joyce Morales [facility] MAGNESIUM 2019-12-22 04:59:00 [facility] W/PLT COUNT & AUTO 2019-12-22 03:03:00 [facility] POCT-GLUCOSE METER 2019-12-22 00:02:00 Sara Manjarrez [facility] APTT 2019-12-21 23:06:00 Hany [facility] BODY FLUID CELL COUNT 2019-12-21 17:36:00 [facility] BODY FLUID CULTURE + GRAM 2019-12-21 17:36:[address] [facility] STAIN [facility] FUNGUS CULTURE + SMEAR 2019-12-21 17:36:00 [facility] LACTATE DEHYDROGENASE 2019-12-21 17:36:00 Sara Manjarrez [facility] (LDH)[facility] PROTEIN, BODY FLUID 2019-12-21 17:36:00 Sara Manjarrez [facility] GLUCOSE PLEURAL FLUID 2019-12-21 17:36:00 Sara Manjarrez [facility] US THORACENTESIS 2019-12-21 16:52:00 Johnson Luz [facility] PT/APTT 2019-12-21 16:50:00 Osmani Justice [facility] XR CHEST 1 VIEW 2019-12-21 15:21:00 Cassidy Parra [facility] - PORTABLE/BEDSIDE [facility] POCT-GLUCOSE METER 2019-12-21 12:25:00 Sara Manjarrez [facility] PROTHROMBIN TIME/INR 2019-12-21 10:51:00 Osmani Justice [facility] BASIC METABOLIC PANEL (7) 2019-12-21 04:36:00 Joyce Morales [facility] MAGNESIUM 2019-12-21 04:36:[address] [facility] CREATINE KINASE (CK) 2019-12-21 04:36:00 Woc-HallieSaranya hallman [facility] APTT 2019-12-21 04:36:00 Hany [facility] CBC W/PLT COUNT & AUTO 2019-12-21 04:36:00 [facility] POCT-GLUCOSE METER 2019-12-20 23:27:00 Sara Manjarrez [facility] BLOOD GAS, ARTERIAL 2019-12-20 21:09:00 Tye Weinberg [facility] POCT-GLUCOSE METER 2019-12-20 18:24:00 Sara Manjarrez [facility] APTT 2019-12-20 16:50:00 Hany [facility] BLOOD CULTURE 2019-12-20 13:13:00 Maxi [facility] POCT-GLUCOSE METER 2019-12-20 11:59:00 Sara Manjarrez [facility] APTT 2019-12-20 10:51:00 Hany [facility] BLOOD CULTURE 2019-12-20 10:47:00 Maxi [facility] BLOOD CULTURE 2019-12-20 10:47:[address] [facility] [address] BLOOD GAS, ARTERIAL 2019-12-20 09:57:00 Dylan Leach [facility] POCT-GLUCOSE METER 2019-12-20 05:41:00 Josseline merly [facility] BASIC METABOLIC PANEL (7) 2019-12-20 03:43:00 Joyce Morales [facility] MAGNESIUM 2019-12-20 03:43:00 Joyce Morales [facility] APTT 2019-12-20 03:43:00 Hany [facility] CBC W/PLT COUNT & AUTO 2019-12-20 03:43:00 Joyce Morales [facility] DIFFERENTIAL [facility] POCT-GLUCOSE METER 2019-12-19 23:13:00 Sara Manjarrez [facility] APTT 2019-12-19 20:55:00 Hany [facility] APTT 2019-12-19 13:07:00 Hany [facility] POCT-GLUCOSE METER 2019-12-19 12:00:00 Sara Manjarrez [facility] XR CHEST 1 VIEW 2019-12-19 10:44:00 Tyrone Driscoll [facility] - PORTABLE/BEDSIDE [facility] BASIC METABOLIC PANEL (7) 2019-12-19 06:18:00 Joyce Morales [facility] MAGNESIUM 2019-12-19 06:18:00 Linda Moralesolette [facility] APTT 2019-12-19 06:18:00 Hany [facility] CBC W/PLT COUNT & AUTO 2019-12-19 05:15:00 Joyce Morales [facility] DIFFERENTIAL [facility] APTT 2019-12-19 00:23:00 Hany [facility] PERIPHERAL VASCULAR 2019-12-18 21:22:05 Donna Vergara [facility] REPORT SCAN [facility] MAGNESIUM 2019-12-18 17:39:00 Joyce Morales [facility] POTASSIUM 2019-12-18 17:39:[address] [facility] 2019-12-18 17:39:00 Quiambao [facility] BLOOD CULTURE 2019-12-18 13:15:[address] [facility] BLOOD CULTURE 2019-12-18 12:57:[address] [facility] MAGNESIUM 2019-12-18 11:12:00 Carmen [facility] POTASSIUM 2019-12-18 11:12:00 Carmen [facility] APTT 2019-12-18 10:30:00 Hany [facility] HEMOGLOBIN A1C 2019-12-18 04:22:00 Carmen [facility] BASIC METABOLIC PANEL (7) 2019-12-18 04:22:00 Joyce Morales [facility] MAGNESIUM 2019-12-18 04:22:00 Carmen [facility] CBC W/PLT COUNT & AUTO 2019-12-18 04:22:00 Carmen [facility] ECHOCARDIOGRAM REPORT - 2019-12-17 21:22:31 Provider, Default [facility] VENOUS DOPPLER ARM, LEFT 2019-12-17 20:10:00 [facility] TRANSFUSION SERVICE 2019-12-17 18:02:27 Provider, Default [facility] BLOOD CULTURE 2019-12-17 15:00:00 KondaNelly ag [facility] VANCOMYCIN LEVEL, TROUGH 2019-12-17 14:00:00 Kym Geronimo [facility] CT BRAIN WITHOUT IV 2019-12-17 11:15:00 Sara Manjarrez [facility] CT CHEST WITHOUT IV 2019-12-17 11:15:00 Sara Manjarrez [facility] CT ABDOMEN/PELVIS WITHOUT 2019-12-17 11:15:[address] [facility] LIMITED 2D ECHOCARDIOGRAM 2019-12-17 08:25:06 Freddie Garcia I [facility] XR CHEST 1 VIEW 2019-12-17 05:24:00 [facility]/BEDSIDE [facility] HEPATIC FUNCTION PANEL 2019-12-17 03:09:00 Sara Manjarrez [facility] PROTHROMBIN TIME/INR 2019-12-17 03:09:00 Sara Manjarrez [facility] BASIC METABOLIC PANEL (7) 2019-12-17 03:09:00 Joyce Morales [facility] MAGNESIUM 2019-12-17 03:09:00 Carmen [facility] BLOOD GAS, ARTERIAL 2019-12-17 03:09:00 Carmen [facility] TSH/FREE T4 IF INDICATED 2019-12-17 03:09:00 Joyce Morales [facility] LACTIC ACID, VENOUS 2019-12-17 03:09:00 Carmen [facility] FERRITIN 2019-12-17 03:09:00 Michael [facility] IRON, TIBC, % SAT. 2019-12-17 03:09:00 [facility]UL[facility] 2019-12-17 03:09:00 [facility] B12 AND FOLATE 2019-12-17 03:09:00 Michael [facility] CBC W/PLT COUNT & AUTO 2019-12-17 03:09:00 Carmen [facility] CORTISOL 2019-12-16 23:34:00 Carmen [facility] BASIC METABOLIC PANEL (7) 2019-12-16 20:15:00 Joyce Morales [facility] MAGNESIUM 2019-12-16 20:15:00 Carmen, Joyce [facility] VANCOMYCIN LEVEL, TROUGH 2019-12-16 20:15:00 rAt-Saranya Sterling [facility] POCT-GLUCOSE METER 2019-12-16 18:20:00 Josseline [facility] TRANSFUSION SERVICE 2019-12-16 17:50:27 Donna Vergara [facility] REPORT - SCAN Scanning [facility] BLOOD CULTURE 2019-12-16 15:54:00 Freddie Garcia [facility] BLOOD CULTURE 2019-12-16 15:34:00 Radha [facility] XR CHEST 1 VIEW 2019-12-16 15:24:00 Mehrdad Gillespie [facility] PORTABLE/BEDSIDE Medical Center AMMONIA 2019-12-16 14:38:00 Josseline [facility] PT/APTT 2019-12-16 14:38:00 Mehrdad Gillespie [facility] COMPREHENSIVE METABOLIC 2019-12-16 14:33:00 Mehrdad Gillespie [facility] PHOSPHORUS 2019-12-16 14:33:00 Mehrdad Gillespie [facility] BLOOD GAS, ARTERIAL 2019-12-16 14:31:00 Mehrdad Gillespie [facility] SODIUM NA-STAT LAB 2019-12-16 14:31:00 Mehrdad Gillespie [facility] POTASSIUM-STAT LAB 2019-12-16 14:31:00 Mehrdad Gillespie [facility] GLUCOSE-STAT LAB 2019-12-16 14:31:00 Mehrdad Gillespie [facility] HGB/HCT (H&H) - STAT LAB 2019-12-16 14:31:00 Mehrdad Gillespie [facility] LACTIC ACID, ARTERIAL 2019-12-16 14:26:00 Mehrdad Gillespie [facility] PROTHROMBIN TIME/INR 2019-12-16 14:18:00 [facility] ([facility] ONLY[facility] 2019-12-16 14:18:00 Mehrdad Gillespie [facility] MAGNESIUM 2019-12-16 14:18:00 Mehrdad Gillespie [facility] CALCIUM, IONIZED 2019-12-16 14:16:00 Mehrdad Gillespie [facility] PREPARE LEUKO-REDUCED RBC 2019-12-16 14:01:00 Freddie Garcia [facility] BLOOD GAS, ARTERIAL 2019-12-16 12:25:39 Jake Neal [facility] SODIUM NA-STAT LAB 2019-12-16 12:25:39 Jake Neal [facility] POTASSIUM-STAT LAB 2019-12-16 12:25:39 Jake Neal [facility] GLUCOSE-STAT LAB 2019-12-16 12:25:39 Jake Neal [facility] HGB/HCT (H&H) - STAT LAB 2019-12-16 12:25:39 Jake Neal [facility] AFB CULTURE + SMEAR 2019-12-16 12:21:26 [facility] (NON-SPUTUM) [facility] ANAEROBIC CULTURE 2019-12-16 12:21:26 [facility] FUNGUS CULTURE + SMEAR 2019-12-16 12:21:26 Kuhn [facility] SURGICALLY OBTAINED 2019-12-16 12:21:26 Kuhn [facility] - CULTURE + GRAM STAIN [facility] [address] CALCIUM, IONIZED 2019-12-16 10:46:12 Jake Neal [facility] PROTHROMBIN TIME/INR 2019-12-16 10:46:12 Jake Neal [facility] BLOOD GAS, ARTERIAL 2019-12-16 10:46:12 Jake Neal [facility] SODIUM NA-STAT LAB 2019-12-16 10:46:12 Jake Neal [facility] POTASSIUM-STAT LAB 2019-12-16 10:46:12 Jake Neal [facility] GLUCOSE-STAT LAB 2019-12-16 10:46:12 Creo, Jake Perfecto [facility] HGB/HCT (H&H) - STAT LAB 2019-12-16 10:46:12 Jake Neal to [facility] PROTHROMBIN TIME/INR 2019-12-16 07:40:00 Jake Neal C [facility] LASER EXTRACTION,LEAD 2019-12-16 07:30:00 Sujata Kuhn [facility] RUPERTO 2019-12-16 07:30:00 Sujata Kuhn [facility] BASIC METABOLIC PANEL (7) 2019-12-16 05:44:00 Sara Manjarrez [facility] HEPATIC FUNCTION PANEL 2019-12-16 05:44:00 Sara Manjarrez [facility] MAGNESIUM 2019-12-16 05:44:00 Josseline [facility] POCT-GLUCOSE METER 2019-12-15 21:24:00 Josseline [facility] ECHOCARDIOGRAM REPORT - 2019-12-15 21:23:08 Donna Vergara [facility] BLOOD GAS, ARTERIAL 2019-12-15 17:12:00 Josseline [facility] URINE CULTURE 2019-12-15 17:10:00 Josseline merly [facility] ABORH, MANUAL 2019-12-15 17:09:00 Juanita Davis [facility] POCT-GLUCOSE METER 2019-12-15 17:06:00 Josseline merly [facility] EEG AWAKE AND DROWSY 2019-12-15 16:24:00 Josseline, merly [facility] 2D ECHO W/ DOPPLER 2019-12-15 14:23:52 Niyah Montilla [facility] (CW/PW/COLOR) [facility] POCT-GLUCOSE METER 2019-12-15 14:15:00 Josseline merly [facility] BLOOD CULTURE 2019-12-15 14:10:00 Niyah Montilla [facility] BLOOD CULTURE 2019-12-15 14:10:00 Niyah Montilla [facility] - IDENTIFICATION PANEL [facility] ter TYPE AND SCREEN, 2019-12-15 14:10:00 Niyah Montilla [facility] - AUTOMATED [facility] ECG 12-LEAD 2019-12-15 13:08:00 Unknown, Hl7 Doctor [facility] POCT-GLUCOSE METER 2019-12-15 07:41:00 Sara Manjarrez [facility] BASIC METABOLIC PANEL (7) 2019-12-15 02:47:00 Sara Manjarrez I [facility] HEPATIC FUNCTION PANEL 2019-12-15 02:47:00 Sara Manjarrez [facility] PROTHROMBIN TIME/INR 2019-12-15 02:47:00 Josseline merly [facility] LIPID PANEL 2019-12-15 02:47:00 Sara Manjarrez [facility] CBC W/PLT COUNT & AUTO 2019-12-15 02:47:00 Sara Manjarrez [facility] Cryotherapy to skin 2018-01-08 05:00:00 [facility] lesion<sup>1</sup> Implantation of 2015-05-04 05:00:00 [facility] cardioverter defibrillator with three electrode leads<sup>2</sup> echocardiogram, complete 2014-07-08 05:00:00 Mem orial Luis Cardiac catheterization, Elijah coello Luis left heart<sup>3</sup> Implantation of [facility] defibrillator Knee joint operation [facility] Miscellaneous [facility] Suring operations<sup>4</sup> Encounters Start End Encounter Admission Attending Care Care Encounter Source Date/Time Date/Time Type Type Clinicians Facility Department ID 2019-12-10 Inpatient SW MED [id number] [facility] W 20:44:00 2019-12-28 2019-12-28 Outpatient James Francis [facility] [id number] 11:15:00 11:15:00 [place] 2019-12-10 2019-12-14 [id number] 20:44:00 23:10:[address] 2019-12-10 2019-12-11 Outpatient [facility] [id number] 14:46:01 23:59:59 10 2019-11-01 2019-11-02 Outpatient [facility] [id number] 09:36:18 23:59:59 09 2019-08-03 2019-08-04 Outpatient [facility] [id number] 09:21:35 23:59:59 08 2019-02-26 2019-02-27 Outpatient [facility] [id number] 14:14:03 23:59:59 07 2019-02-11 2019-02-11 Outpatient Radha, [facility] [id number] 09:00:00 23:59:59 Francis Robles 12 2019-02-04 2019-02-04 Outpatient Radha, [facility] [id number] 09:00:00 23:59:59 Francis Robles 2019-02-04 2019-02-04 Outpatient Radha, [facility] [id number] 08:00:00 23:59:59 Francis Robles 10 2018-09-02 2018-09-03 Outpatient [facility] [id number] 09:04:00 23:59:59 06 2018-05-12 2018-05-13 Outpatient [facility] [id number] 12:14:00 23:59:59 05 2018-03-16 2018-03-16 Outpatient Radha, [facility] [id number] 09:00:00 23:59:59 Francis Robles 2018-03-03 2018-03-04 Outpatient [facility] [id number] 12:09:00 23:59:59 04 2018-03-03 2018-03-04 Outpatient [facility] [id number] 12:09:00 23:59:59 04 2018-02-16 2018-02-16 Outpatient Radha, [facility] [id number] 10:30:00 10:30:00 Francis Robles 06 2018-02-09 2018-02-09 Outpatient Radha, [facility] [id number] 11:00:00 11:00:00 Francis Robles 08 2018-02-04 2018-02-05 Outpatient [facility] [id number] 10:59:00 23:59:59 03 2018-02-04 2018-02-05 Outpatient [facility] [id number] 10:59:00 23:59:59 03 2018-01-12 2018-01-12 Outpatient Radha [facility] [id number] 11:00:00 23:59:59 Francis Robles 2017-10-01 2017-10-02 Outpatient [facility] [id number] 13:38:00 23:59:59 02 2014-05-03 2014-05-03 Outpatient Radha James [facility] [id number] 09:25:00 11:51:00 [place] 01 Results Test Description Test Time Test Comments Results Result Comments Source Fungus culture + smear 2020-02-15 17:03:00 Test Item Value Reference Range Interpretation Comme nts Result (test code = 6463-4) No fungus isolated in 28 days Fungus Smear (test code = 1406) No fungi seen [facility] [id number] 17:03:00 Test Item Value Reference Range Interpretation Comments CULTURE (BEAKER) (test No fungus isolated in code = 1095) 28 days FUNGUS SMEAR (BEAKER) No fungi seen (test code = 1406) AFB culture + smear (non-sputum)2020-01-31 13:35:00 Test Item Value Reference Range Interpretation Comments Result (test code = No acid-fast bacilli 6463-4) isolated in 42 days AFB Smear (test code = No acid fast bacilli 61908-4) seen [facility] + SMEAR (NON-SPUTUM)2020-01-31 13:35:00 Test Item Value Reference Range Interpretation Comments CULTURE (BEAKER) (test No acid-fast bacilli code = 1095) isolated in 42 days AFB SMEAR (BEAKER) No acid fast bacilli (test code = 994) seen POC-Glucose [id number] 18:11:00 Test Item Value Reference Range Interpretation Comments POC-Glucose Meter (test 112 mg/dL 70-110 H : TE STED AT [facility] code = 1538) [address] [facility], 770 30: Truck Bench Mechanic/Techni lars ID = [id number] for MADELINE WATTERS ESTEFANIA Lab Interpretation (test Abnormal code = 25318-9) [facility] [id number] 18:11:00 Test Item Value Reference Range Interpretation Comments POC-GLUCOSE METER 112 mg/dL 70-110 H : TESTED A T [facility] 6720 ([place]) (test code = PITER Fields [facility], 1538) [address]: Truck Bench Mechanic/Techni lars ID = [id number] for LISBET KRAMER EKG 12 [id number] 15:29:52Interface, External Ris In - 01/27/2020 3:29 PM CDTVentricular Rate 77 BPMAtrial Rate 77 BPMP-R Interval 172 msQRS Duration 164 msQ-T Interval 446 msQTC Calculation(Bazett) 504 msP Manson 5 degreesR Manson 249 degreesT Manson 67 degreesAtrial-sensed ventricular-paced rhythm with occasional Premature ventricular complexesAbnormal ECGConfirmed by MD Stockton Roberto ([id number]) on 01/27/2020 3:29:51 [facility] [id number] 13:57:00 Test Item Value Reference Range Interpretation Comments POC-GLUCOSE METER 128 mg/dL 70-110 H : TESTED A T [facility] 6720 ([place]) (test code = [address] [place], 1538) [address]: Truck Bench Mechanic/Techni lars ID = [id number] for LISBET KRAMER Basic Metabolic [id number] 05:52:00 Test Item Value Reference Range Interpretation Comments Sodium (test code = 148 meq/L 136-145 H 2951-2) Potassium (test code = 3.6 meq/L 3.5-5.1 2823-3) Chloride (test code = 119 meq/L 98-107 H 2075-0) CO2 (test code = 24 meq/L 22-29 2028-9) BUN (test code = 23 mg/dL 7-21 H 3094-0) Creatinine (test code 0.78 mg/dL 0.57-1.25 = 2160-0) Glucose (test code = 123 mg/dL 70-105 H 2345-7) Calcium (test code = 9.0 mg/dL 8.4-10.2 77741-4) EGFR (test code = 97 mL/min/1.73 sq m [facility] [address]-6) NOT ACCURATE CREATININE CLEARANCE IN PREDICTING GLOMERULAR FILTRATION RATE . ESTIMATED GFR I S NOT APPLICABLE FOR DIALYSIS PATIENTS. DMITRIY (test code = DMITRIY) Truck Bench Mechanic ID - LV L Lab Interpretation Abnormal (test code = 79204-6) [facility]2020-04-02 05:52:00 Test Item Value Reference Range Interpretation Comments Magnesium (test code = 2.1 mg/dL 1.6-2.6 81099-6) DMITRIY (test code = DMITRIY) Truck Bench Mechanic ID - LV L Lab Interpretation (test Normal code = 60807-2) [facility]2020-04-02 05:52:00 Test Item Value Reference Range Interpretation Comments MAGNESIUM (BEAKER) (test code = 2.1 mg/dL 1.6-2.6 627) Truck Bench Mechanic ID - LV LBASIC METABOLIC [id number] 05:52:00 Test Item Value Reference Range Interpretation [...] S NOT APPLICABLE FOR DIALYSIS PATIEN TS. Truck Bench Mechanic ID - PIAYA LCBC (hemogram only)2020-01-27 05:45:00 Test Item Value Reference Range Interpretation Comments WBC (test code = 6690-2) 4.4 3.5- 10.5 K/L RBC (test code = 789-8) 3.04 4.63- 6.08 M/L L MCHC (test code = 786-4) 27.9 32.3- 36.5 GM/DL L Hematocrit (test code = 29.4 % 40.1-51 L 4544-3) MCV (test code = 787-2) 96.7 fL 79-92.2 H Disc ordant MCV results compare d to previous result s; clinical correl ation required. MCH (test code = 785-6) 27.0 pg 25.7-32.2 RDW (test code = 788-0) 16.1 % 11.6-14.4 H Platelets (test code = 199 150- 450 K/CU MM 777-3) MPV (test code = 9.2 fL 9.4-12.4 L 91413-6) nRBC (test code = 413) 0 0- 0 /100 WBC Lab Interpretation (test Abnormal code = 12247-0) [facility] (HEMOGRAM ONLY)2020-01-27 05:45:00 Test Item Value Reference [...] CELLS (BEAKER) (test code = 413) POCT-GLUCOSE [id number] 03:55:00 Test Item Value Reference Range Interpretation Comments POC-GLUCOSE METER 114 mg/dL 70-110 H : TESTED A T [facility] 6720 (BEAKER) (test code = [facility], 1538) 20327: Truck Bench Mechanic/Techni lars ID = [id number] for MICHELLE MATHIS POCT-GLUCOSE [id number] 18:25:00 Test Item Value Reference Range Interpretation Comments POC-GLUCOSE METER 88 mg/dL 70-110 : TESTED A T [facility] 6720 (BEAKER) (test code = [facility], 1538) 71582: Truck Bench Mechanic/Techni lars ID = [id number] for TRINY EDGAREMILIANALE POCT-GLUCOSE [id number] 12:51:00 Test Item Value Reference Range Interpretation Comments POC-GLUCOSE METER 89 mg/dL 70-110 : TESTED A T [facility] 6720 (BEAKER) (test code = [facility], 1538) 39910: Truck Bench Mechanic/Techni lars ID = [id number] for NÉSTORLISBET LICONA BASIC METABOLIC [id number] 06:36:00 Test Item Value Reference Range Interpretation [...] S NOT APPLICABLE FOR DIALYSIS PATIEN TS. Truck Bench Mechanic ID - LMCBC (HEMOGRAM ONLY)2020-01-26 06:35:00 [...] 0-0 (BEAKER) (test code = 413) POCT-GLUCOSE [id number] 00:29:00 Test Item Value Reference Range Interpretation Comments POC-GLUCOSE METER 106 mg/dL 70-110 : [facility] (test code [facility], = 1538) 29290: Truck Bench Mechanic/Techni lars ID = [id number] for CARLOS WHITE Troponin [id number] 18:42:00 Test Item Value Reference Range Interpretation Comments Troponin I (test code = <0.01 0-0.03 27850-2) DMITRIY (test code = DMITRIY) Troponin I (TnI) levels must be interpreted [...] failure, acidosis, acute neurological disease, and persistent tachyarrhythmia.Opera tor ID - DB Lab Interpretation (test Normal code = 09317-9) [facility] CenterTR[facility]IT[facility] [id number] 18:42:00 Test Item Value Reference Range Interpretation [...] failure, acidosis, acute neurological disease, and persistent tachyarrhythmia.Truck Bench Mechanic ID - DBPOCT-GLUCOSE METER 2020-01-25 15:50:00 Test Item Value Reference Range Interpretation Comments POC-GLUCOSE METER 98 mg/dL 70-110 : TESTED A T [facility] 6720 (BEAKER) (test code = [facility], 1538) 47872: Truck Bench Mechanic/Techni lars ID = [id number] for DANIELLE H, DIAZ POCT-GLUCOSE [id number] 12:27:00 Test Item Value Reference Range Interpretation Comments POC-GLUCOSE METER 90 mg/dL 70-110 : TESTED A T [facility] 6720 (BEAKER) (test code = [facility], 1538) 72397: Truck Bench Mechanic/Techni lars ID = [id number] for DANIELLE H, DIAZ TROPONIN [id number] 09:18:00 Test Item Value Reference Range Interpretation [...] failure, acidosis, acute neurological disease, and persistent tachyarrhythmia.Truck Bench Mechanic ID - ADAMARIS MLimited 2D [id number] 09:10:49Ejection FractionSLEH ECHO HEARTLAB MKCKESSON CPACSInterface, External Ris In - 01/25/2020 9:10 AM CDTTransthoracic Echocardiography Report (TTE) Demographics Patient Name RENE CHAMBERLAIN Dateof Study 01/24/2020 Gender Male Visit Number [id number] Race Room Number 6108 Number Date of 1945 Referring Physician Age 74 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 It is difficult to accurately assess LV wall motion with available views, but global systolic function is mild to moderately reduced. Left pleural effusion appears tpbgmfsk-pz-jvomx in size. Signature ---- Findings Left Ventricle Mild concentric LV hypertrophy. It is difficult to accurately assess LV wall motion with available views,but global systolic function is mild to moderately reduced. A pacemaker wire is visualized in the LV. Left Atrium LA size is mildly enlarged .Right Ventricle The right ventricular chamber size and systolic function are within normal limits. A pacemaker wire is visualized in the right ventricle. Right Atrium RA size is moderately dilated. Pacemaker wire is visualized in RA cavity. Aortic Valve Mild AoV cusp thickening. Mi tral Valve Mild MV leaflet thickening. Tricuspid Valve A trace of tricuspid regurgitation. Estimated peak systolic PA pressure is cannot be determined due to inadequate TR velocity signal . Pericardium A trivial circumferential pericardial effusion is present . IVC/SVC/PA/PV/Pleural The estimated RA pressure by IVC dynamics 11-15mmHg . Left pleural effusion appears bqjdyjdn-uw-inteq in size.[facility] CenterCBC with platelet count + automated [id number] 06:21:00 Test Item Value Reference Range Interpretation Comments WBC (test code = 6690-2) 5.3 3.5- 10.5 K/L RBC (test code = 789-8) 3.23 4.63- 6.08 M/L L MCHC (test code = 786-4) 27.7 32.3- 36.5 GM/DL L Hematocrit (test code = 4544-3) 31.8 % 40.1-51 L MCV (test code = 787-2) 98.5 fL 79-92.2 H MCH (test code = 785-6) 27.2 pg 25.7-32.2 RDW (test code = 788-0) 16.7 % 11.6-14.4 H Platelets (test code = 777-3) 251 150- 450 K/CU MM MPV (test code = 93283-8) 9.7 fL 9.4-12.4 nRBC (test code = 413) 0 0- 0 /100 WBC % Neutros (test code = 429) 71 % % Lymphs (test code = 430) 16 % % Monos (test code = 431) 9 % % Eos (test code = 432) 2 % % Baso (test code = 437) 1 % # Neutros (test code = 670) 3.76 1.78- 5.38 K/L # Lymphs (test code = 414) 0.85 1.32- 3.57 K/L L # Monos (test code = 415) 0.49 0.30- 0.82 K/L # Eos (test code = 416) 0.11 0.04- 0.54 K/L # Baso (test code = 417) 0.04 0.01- 0.08 K/L Immature Granulocytes-Relative 2 % 0-1 H (test code = 2801) Lab Interpretation (test code = Abnormal 81100-3) [facility] W/PLT COUNT & AUTO [id number] 06:21:00 Test Item Value Reference Range Interpretation [...] H PERCENT (BEAKER) (test code = 2801) Creatine Kinase (CK)2020-01-25 06:09:00 Test Item Value Reference Range Interpretation Comments Total CK (test code = 30 U/L 29-200 2157-6) DMITRIY (test code = DMITRIY) Truck Bench Mechanic ID - ADAMARIS M Lab Interpretation (test Normal code = 21832-2) [facility] METABOLIC [id number] 06:09:00 Test Item Value Reference Range Interpretation [...] S NOT APPLICABLE FOR DIALYSIS PATIEN TS. Truck Bench Mechanic ID - ADAMARIS MCREATINE KINASE (CK)2020-01-25 06:09:00 Test Item Value Reference Range Interpretation Comments CREATINE KINASE TOTAL (BEAKER) (test 30 U/L 29-200 code = 380) Truck Bench Mechanic ID - ADAMARIS MRAD, CHEST, 1 VIEW, NON [id number] 01:06:00Reason for exam:->r/o ptxShould this be performed [...] no pneumothorax. Signed: Nilton Butterfield Verified Date/Time: 01/25/2020 01:06:33 XR chest 1 view portable / [id number] 01:06:00Interface, External Ris In - 01/25/2020 1:08 AM CDTFINAL REPORT Chest one view. Clinical history: r/o ptx Comparison: Chest radiograph 01/24/2020. Technique: A single frontal view of the chest was obtained. 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 There is a feeding tube which projects below the diaphragm. The cardiomediastinal contours are stable. There is a moderate left pleural effusion, not significantly changed. There are ill-defined peripheral airspace and interstitial opacities in the right hemithorax. There is no pneumothorax. Signed: Nilton Butterfield Verified Date/Time: 01/25/2020 01:06:33 [facility] [id number] 00:53:00 Test Item Value Reference Range Interpretation [...] failure, acidosis, acute neurological disease, and persistent tachyarrhythmia.Truck Bench Mechanic ID - [id number] 00:41:00 Test Item Value Reference Range Interpretation Comments Glucose (test code = 139 mg/dL 70-105 H 2345-7) DMITRIY (test code = DMITRIY) Truck Bench Mechanic ID - [id number] Lab Interpretation (test Abnormal code = 02975-6) [facility] CenterGLUCOSE2020-03-31 00:41:00 Test Item Value Reference Range Interpretation Comments GLUCOSE RANDOM (BEAKER) (test code 139 mg/dL 70-105 H = 652) Truck Bench Mechanic ID - [id number], CHEST, 1 VIEW, NON [id number] 16:33:00Reason for exam:->r/o ptxShould this be performed [...] Gregory Verified Date/Time: 01/24/2020 16:33:08 Reading Location: [address] Radiology Reading Room POCT-GLUCOSE [id number] 15:59:00 Test Item Value Reference Range Interpretation Comments POC-GLUCOSE METER 130 mg/dL 70-110 H : TESTED A T [facility] 6720 (BEAKER) (test code = [facility] [place], 1538) 49619: Truck Bench Mechanic/Techni lars ID = [id number] for TODD THURSTON POCT-GLUCOSE [id number] 05:13:00 Test Item Value Reference Range Interpretation Comments POC-GLUCOSE METER 89 mg/dL 70-110 : TESTED A T [facility] 6720 (BEAKER) (test code = [facility], 1538) 18948: Truck Bench Mechanic/Techni lars ID = [id number] for MSIB IJERAMIEISI [id number] 03:36:00 Test Item Value Reference Range Interpretation Comments MAGNESIUM (BEAKER) (test code = 2.3 mg/dL 1.6-2.6 627) Truck Bench Mechanic ID - ADAMARIS MBASIC METABOLIC [id number] 03:36:00 Test Item Value Reference Range Interpretation [...] S NOT APPLICABLE FOR DIALYSIS PATIEN TS. Truck Bench Mechanic ID - ADAMARIS MCBC (HEMOGRAM ONLY)2020-01-24 [...] WBC 0-0 (BEAKER) (test code = 413) Blood Culture - Routine (Right Venipuncture)2020-01-23 19:00:00 Test Item Value Reference Range Interpretation Comments Result (test code = No growth in 5 days 6463-4) [facility] CenterBLOOD [id number] 19:00:00 Test Item Value Reference Range Interpretation [...] 0-0 (BEAKER) (test code = 413) POCT-GLUCOSE [id number] 18:00:00 Test Item Value Reference Range Interpretation Comments POC-GLUCOSE METER 119 mg/dL 70-110 H : TESTED A T [facility] 6720 (BEAKER) (test code = [facility], 1538) 94946: Truck Bench Mechanic/Techni lars ID = [id number] for NUNO LL, WILLIS POCT-GLUCOSE [id number] 12:30:00 Test Item Value Reference Range Interpretation Comments POC-GLUCOSE METER 119 mg/dL 70-110 H : TESTED A T [facility] 6720 (BEAKER) (test code = [facility], 1538) 34424: Truck Bench Mechanic/Techni lars ID = [id number] for NUNO LL, WILLIS POCT-GLUCOSE [id number] 06:24:00 Test Item Value Reference Range Interpretation Comments POC-GLUCOSE METER 115 mg/dL 70-110 H : TESTED A T [facility] 6720 (BEAKER) (test code = [facility], 1538) 69584: Truck Bench Mechanic/Techni lars ID = [id number] for DO ZAVALETAPIERRE CBC (HEMOGRAM ONLY)2020-01-22 04:19:00 Test Item Value [...] 0-0 (BEAKER) (test code = 413) POCT-GLUCOSE [id number] 23:58:00 Test Item Value Reference Range Interpretation Comments POC-GLUCOSE METER 128 mg/dL 70-110 H : TESTED A T [facility] 6720 (BEAKER) (test code = [facility], 1538) 67095: Truck Bench Mechanic/Techni lars ID = [id number] for PIERRE DEL ROSARIO POCT-GLUCOSE [id number] 18:10:00 Test Item Value Reference Range Interpretation Comments POC-GLUCOSE METER 100 mg/dL 70-110 : TESTED A T [facility] 6720 (BEAKER) (test code = [facility], 1538) 58610: Truck Bench Mechanic/Techni lars ID = [id number] for AG ROBINS Lactate Dehydrogenase (LD), Pleural [id number] 16:41:00 Test Item Value Reference Range Interpretation Comments Lactate 134 U/L See Note: Reference Dehydrogenase (LD), Range:TR ANSUDATE Pleural Fluid (test : <113E XUDATE: code = 44363-4) >113 DMITRIY (test code = Performing Lab DMITRIY) [employer] [address] [place] [address] Winter Encinas MD, PhD, SUZETTE [facility] CenterGlucose Pleural [id number] 16:35:00 Test Item Value Reference Range Interpretation Comments Glucose, 99 mg/dL Reference rang e Pleural Fluid approximates t hat (test code = found in serum. 2346-5) DMITRIY (test code Performing Lab = DMITRIY) EZ [employer] [place] [address] [place] [address] Winter Encinas MD, PhD, SUZETTE [facility] CenterFUNGUS CULTURE + [id number] 16:25:00 Test Item Value Reference Range Interpretation Comments CULTURE (BEAKER) (test No fungus isolated in code = 1095) 28 days FUNGUS SMEAR (BEAKER) No fungi seen (test code = 1406) POCT-GLUCOSE [id number] 12:09:00 Test Item Value Reference Range Interpretation Comments POC-GLUCOSE METER 119 mg/dL 70-110 H : TESTED A T [facility] 6720 (BEAKER) (test code = [facility], 153) 24647: Truck Bench Mechanic/Techni lars ID = [id number] for AG ROBINS Body fluid culture + gram [id number] 11:52:00 Test Item Value Reference Range Interpretation Comments Result (test code = 6463-4) No growth Gram Stain Result (test No organisms seen code = 1123) [facility] CenterBODY FLUID CULTURE + GRAM [id number] 11:52:00 Test Item Value Reference Range Interpretation Comments CULTURE (BEAKER) (test code No growth = 1095) GRAM STAIN RESULT (BEAKER) <1+ WBCs (test code = 1123) GRAM STAIN RESULT (BEAKER) No organisms seen (test code = 97866) POCT-GLUCOSE [id number] 07:22:00 Test Item Value Reference Range Interpretation Comments POC-GLUCOSE METER 122 mg/dL 70-110 H : TESTED A T [facility] 6720 (BEAKER) (test code = [facility], 1538) 32770: Truck Bench Mechanic/Techni lars ID = [id number] for DE YUSEF JUAREZ POCT-GLUCOSE [id number] 06:45:00 Test Item Value Reference Range Interpretation Comments POC-GLUCOSE METER 103 mg/dL 70-110 : TESTED A T [facility] 6720 (BEAKER) (test code = [facility], 1538) 91491: Truck Bench Mechanic/Techni lars ID = [id number] for MS IBI, MNCEDISI BASIC METABOLIC [id number] 05:40:00 Test Item Value Reference Range Interpretation [...] S NOT APPLICABLE FOR DIALYSIS PATIEN TS. Truck Bench Mechanic ID - PIAYA LCBC (HEMOGRAM ONLY)2020-01-21 [...] = 413) RAD, CHEST, 1 VIEW, NON [id number] 04:32:00Reason for exam:->chfShould this be performed at [...] Nilton Butterfield Verified Date/Time: 01/21/2020 04:32:05 POCT-GLUCOSE [id number] 23:29:00 Test Item Value Reference Range Interpretation Comments POC-GLUCOSE METER 125 mg/dL 70-110 H : TESTED A T [facility] 6720 (BEAKER) (test code = [facility], 1538) 96438: Truck Bench Mechanic/Techni lars ID = [id number] for MS JUSTINA DE LEÓN POCT-GLUCOSE [id number] 13:27:00 Test Item Value Reference Range Interpretation Comments POC-GLUCOSE METER 122 mg/dL 70-110 H : TESTED A T [facility] 6720 (BEAKER) (test code = [facility], 1538) 42243: Truck Bench Mechanic/Techni lars ID = [id number] for YUSEF LOWE POCT-GLUCOSE [id number] 09:59:00 Test Item Value Reference Range Interpretation Comments POC-GLUCOSE METER 141 mg/dL 70-110 H : TESTED A T [facility] 6720 (BEAKER) (test code = [facility], 1538) 40138: Truck Bench Mechanic/Techni lars ID = [id number] for PIERRE ZAVALETA [id number] 06:01:00 Test Item Value Reference Range Interpretation Comments Protime (test code = 15.9 11.9- 14.2 H 5902-2) seconds INR (test code = 1.3 <=5.9 6301-6) PTT (test code = 33.6 22.5- 36.0 00720-7) seconds DMITRIY (test code = DMITRIY) Effective 03/24/2019: PT Reference Range ChangeNew: 11.9-14.2 Previous: 11.7-14.7 RECOMMENDED COUMADIN/WARFARIN INR THERAPY RANGESSTANDARD DOSE: 2.0-3.0 Includes: PROPHYLAXIS for venous thrombosis, systemic embolization; TREATMENT for venous thrombosis and/or pulmonary embolus.HIGH RISK: Target INR is 2.5-3.5 for patients wiht mechanical heart valves. Lab Interpretation Abnormal (test code = 51767-4) [facility] CenterPT/[id number] 06:01:00 Test Item Value Reference Range Interpretation [...] INR is2.5-3.5 for patients wiht mechanical heart valves.Hepatic function [id number] 05:38:00 Test Item Value Reference Range Interpretation Comments Protein, Total (test code 6.1 6.0- 8.3 gm/dL = 2885-2) Albumin (test code = 2.3 g/dL 3.5-5 L 37227-4) Total Bilirubin (test code 0.4 mg/dL 0.2-1.2 = 1975-2) Bilirubin, Direct (test 0.3 mg/dL 0.1-0.5 code = 1968-7) Alkaline Phosphatase (test 93 U/L 40-150 code = 6768-6) AST (test code = 1920-8) 21 U/L 5-34 ALT (test code = 1742-6) 23 U/L 6-55 DMITRIY (test code = DMITRIY) Truck Bench Mechanic ID - ADAMARIS [place] Lab Interpretation (test Abnormal code = 20105-7) [facility] CenterHEPATIC FUNCTION [id number] 05:38:00 Test Item Value Reference Range Interpretation [...] (test code = 23 U/L 6-55 347) Truck Bench Mechanic ELLY - ADAMARIS MBASIC METABOLIC [id number] 05:38:00 Test Item Value Reference Range Interpretation [...] S NOT APPLICABLE FOR DIALYSIS PATIEN TS. Truck Bench Mechanic ID - ADAMARIS MCBC (HEMOGRAM ONLY)2020-01-20 05:20:00 Test Item Value Reference [...] 0-0 (BEAKER) (test code = 413) POCT-GLUCOSE [id number] 00:05:00 Test Item Value Reference Range Interpretation Comments POC-GLUCOSE METER 130 mg/dL 70-110 H : [facility]ED [facility] T [facility] (test code = [facility] [place] 1538) 95218: Truck Bench Mechanic/Techni lars ID = [id number] for PIERRE DEL ROSARIO [id number] 16:41:00 Test Item Value Reference Range Interpretation Comments Case Report (test code Medical Cytology = 104) Report Case: [id number] Authorizing Provider: Sara Manjarrez MD Collected: 01/18/2020 04:20 PM Ordering Location: [address] Received: 01/19/2020 09:12 AM Pathologist: Samra Coley MD Specimen: Pleural, Left DIAGNOSIS (test code = l1tltORuRVWme5gbORPrnE 3220) FuZzEwMzNcZnRuYmpcdWMx ZEnkmjFrREahe3FpL7MqEk AwMFxhbnNpXGRlZmxhbmcx ELNpPMX1fdJkJAUcBWpaDU LyKUcwTh6adDLlnHnbRmSx XWHxn0azjpTFykhreDp5q5 vrEJMbAcW3tHVtJIxlF9rn lbBfpUMcWOHzHMm9wR65JD JimT8vaFBmMDoucfRcEsB9 AEwoJVSiNgU1DRCgiZVkII BiS2ikCGIqBUqeLUOeUTiw qSOiPOI4bZnuc4A1aETheU FtrZczJpNqPzBvTWUIe9Nw CWw9aYhzF9ScRSVnMhW1xW QgUGFyYWdyYXBoIEZvbnQ7 uQ04XBgivqL4pYTes9Ley0 2eq618xV5dkLYeAEN8ZSRy MZWqeDNcHHGwNEL3HXNbkD CuE1i1XuLkzDHwI9I5AjDw fOYnJ4Q6UeEdwMGeY8I5Fa KqvNPxMMRmtOZiNr2exDXe cIFchr4dyy82HTQ0h7CtzT vxLJO1QEO7MaBjDo3qmGDo ABWlLC2jBkXehTXnFIUyxj 27qHwxHEcprwJqfM4fXnMg FOGlyHBvZKMvDZ8pmNMyJM PscQ0kpghfHKTsRxKoubal WKFwgPrcfsObVp3puGvpVZ D2ESlkI5ezwH8sEcO4NEwm M8gfxF5sNXe9ZGqpaZU4LU DjcX8dJN9pwbwbf7ojRgOd ZF3duzjfs9mdOhRaMF7gnz r8a9bnThFaCJ3tuxely3vd NzIwXGhlYWRlcnkwXGZvb3 CljwftSGSms2RtP6JazIly S87jlUeiN44mRSCywHqlxS 8zvQvlpB4qNoMkHfJnIHey bFxwbGFpblxmMVxmczIwXG fkqmxuXLLrMSiyN7dsZxAo NSYrqSedILhoy7CpCTNgDB ZzMjAgUExFVVJBTCwgTEVG QNpaBfqTOGDwIVCQGY0MTB zRXlp2ANAwwgYsQMDyZM7U E2VAYMXYIGBNZiINDUeLU8 5BTkNZIFxwYXIgICAgLSBJ TkNSRUFTRUQgTkVVVFJPUE rFZVDkCNVEF4XRGRzcBFC9 c3obbORlWVCftJVzDIMsMV xhbnNpXGRlZmxhbmcxMDMz CUU9hwAfTQYdZYgcCLSzKO leLi9wvKFqgFiwWeUcGIFq j5rmpuOEvogdhPs0s0cdFI IyGeP4vXXkFFglK9htrxTp kOFdXAChQXl1cL87EOLimU 5guHAfVXysvmEwYoR9GIrx PMQzNdF7JTWmgEAgGURlO1 xyZWQwXGdyZWVuMFxibHVl XJG7sBvrm2F5kYKtdOUytR mtIlKbGgZqAsLTu9CsBFw0 sHofW8NyLDXvNqV6zJClTU HqRCizHSAtQQXpmbL2jG24 WIbggmK9pYYmh4Uhn12dw6 70tQ2vaAYvMPR4TEWlWRUk vLJbANOjATA0XXVjtWPjF7 jcQZZxJQ2vqxvbAKcgWVuj KRJikWR6GUXdlDGoS1WgVN YfDWliRIAvsfw1NoJmAw2j fHEhxUhuKTpgg6ksf3lpcN AfVlk3UXBiWkZrSpqvPVgi f3Piw8aoPFAefp9sIMV0aW CueNizn2E0bDZbCEGmpONy HZVxHE3yeJHyUFSgaN9kjp xjXHBnYnJkcmhlYWRccGdi uuHzQg5ogQhuOMB6GEynX5 nrlF1fOaO3OGydA2vxzO2r KQg7PIedSLZgfHP0kmH1RZ XsoJIrE3DmdQ2eLWDjWQ8g rwc9u8yeRFJ2APlbIPLcLl U9pzY4NYOrqWNmEGEnnKvx ZQkdg859VFA4CgEdTXNze0 XxG5NruQwqW10qaQizH24v YDDfsCfcfK7zfNzzeQ8zLm ToVpKqXFfsnGwvAK8rCRHy V8tskNKlGKVbMKFjF8akTy MlcR2mjKhdFVkjceWeCBAa Waj3IOEwdYZgIUOhAyb3JF KhCVXsH99koonyJSP7pT3r t5ilw0HhMNeeGKA6XAQxy7 6wOSazezQ3OVlpFc2mJqXq QXV9GMmvtFKzoS0= CPT Code(s) (test code w2yrlYBqDVCjxLHbKcGhMG = 3357) WwZKFuy4niYVCzgBPjCiWj MzNcZnRuYmpcdWMxXGRlZm Vjc1sdy031rSEjr9ecGWDb KqO0tKYuKQXnrAWfB965d1 wip6eyjcNwxJQ5JFQnPSR0 PAuqxeQzchG6DPljlZAgFj T5YYlfbvMvRVygwoJnhkPc Dqj1SFZhZ665NMI8tTlfi6 ppSBB0TARfQTXcPfUxVe3y xIQmX115UBMvNNNISCKqeY k9PQRhkvArnyVfqOVMz026 X118u9fyHWFbxlDsdHaZzn cuc2nuQ388LSNjeMGekmYr GlGoHKGkeGAdeEK5LNLzVK 0lzoqfNdWjCB5hhcpgHxBo LE1guug3IkDnVA7xcccwHu UgQOowLTVftclwMCNbf4Ot efppYT5iA3Rar4X8bU7ksH RxNCQunTBcXjVyZUIryw2q zESpIPfod3AoETX3lhT4mZ LfmMPhHOGxJV62Mqzmi0Fp AysbJMC5DPJxdhNsl0Sne2 idAtSiusUxX1zlD7WfHXXm LIOkMXNnBoXfdhWaw3Obj4 JsxWTfdYg0v0anFAPrDQWh cSgfe5qdQGE5HFXkI9J0uN Tef3nbBBhxIFUkdZF0fubq GUgxRAGuqsB4ixhnGBivIH EqaNG9tonbNUtzSWLaXqG6 zvryWXbbDVJqBRZ0PGfnj2 67PSZ4EMrfVdryFMygSSAp bmNvbnRccGduZGVjXHBsYW luXHBsYWluXGYwXGZzMjRc rQthtTftuO5yOpKsWcBhYS sdXI8jHRPeA0pivPIrFMNb LNEvR8guGfBjgZ5qbMohGN cxnxPhEAe0OSF9RHUers9= CLINICAL DATA (test h5rksDMzEEXvpJTtBlSuUO code = 3355) KwSSPry9aeGTTtkBTbXdSg MzNcZnRuYmpcdWMxXGRlZm Mjx0urm767vUYdw6ahNZFo KcG6qIAlOMJfaUJuC954LI SzQHsxl3nxh1ShEXPeoGUf d6Y5RMKOssfjiHl2rWwwB8 4en0H7HqclS5ojKALeRSTn K4BeIT6fCHXkJar4TZG2PK W7MPXtYYSbW3CfOC9aACOk yRVvDNo5f5qhxWubXUYmUG S4d9gyOScujvZcGD6pxl0x mYr7v5qiudKkNVGgJVGbzN BFTVBsD3YxqSapGe8kcNe3 mToaMseuFPO4Pap4FA9yra 91qml9oCizIDDvrcspBeC3 IIvnYOLllrskTZu9IDmdWY JnbDcyMFxtYXJncjcyMFxt YXJndDcyMFxtYXJnYjcyMF jfPZVjCTQ6FCryg080XLI0 UQvov1gei0upqMCkWju9LX LfZrCqXqfnXBvgt8Kve9xx YHWnnj8cEWP2vRRcvPure6 Y0vCTgOLVbcZHrikNoWBDa RmT4TPgzHG9jhp97ZLGvZC B1sn7foVFhrEqfbvQekJVs WZxyB6VdGZYsl601LASuB8 HsSPEop1C5dmPlHjThHYUu tIJ1evA7PYXvCIw4eXLzuo U9tdBhiHNeY7wruR47EvBu cPGbP4ZduH51EwDjyONkV8 FnwB19EkUinDBfS4MfcL93 GoSljLQdYARwrSAgWz3hfV UhdIRiw3KotBAmZJuhI22w z371RDFqyvWkE0bthFCghh igsPSrmzeeVUtkqmN2EPMn XHBsYWluXGYxXGZzMjBcbG FuZzEwMzNcaGljaFxmMVxk MzCoPFJwDCuxT8jmBnHbQt VrRLZGQVF4HHZxRHGxDJeq GWDwjEMdp524AHi+YWRtaX I4VYFnn22dTi1jGc1uUDWe YK09ZkZxjOF9g7S9OW0xCK nPOugaEVnLZLUZBCBbNB7h ZXNpdHksIFNTUyAocGFjZW 4fk9OjUFNomTIxLDJyoMon PDTuhs3rsCMqZCXqPAPxmr 3bQYTxQXXiWAPYRIu6zQze YWRlIDIwMTUpIHdobyBwcm DsDZ12qeXlgs4lJRqvufFu GPWnKS0xuDc8AOsoPPU6AP IgYXNwaXJhdGlvbiBldmVu cCSyouLxMx0xOZSoaTklU7 SpMI18DA2kJEydqyEoANSu bWFrZXJccGFyfQ== SPECIMEN SOURCE (test r8nfhMDqNDEskHNqHeYhBW code = 3377) PsDNIfu5akFERboVBfIuDh MzNcZnRuYmpcdWMxXGRlZm Tje9hvm493xEOki6udDMRc BsP9yQKvEVDsgNDqP236m0 apg2qebbKllXX2SKTaKTI8 IKqjcyDucxO4FIfkcFYxYj X1VTubszGoPPuirqNfwcXu Qli4VYMqP307IYJ2tBlor9 rxNVL4GHPjGFNzNcAvHn0o cYMyH793FNMgPNHMUXBufO u0KMImeiOlukHtxJOPv691 X996m3juQRJmsnMkuTeGko xjg8pvG877XDOvbESmjmUo JrCdGEJmjSGyxBN1BQAjIJ 1lnotkDkAdKF7ejslkMoCo LK1eakx8AxJyQZ1wpuqwHm EmKXppOLJllbijQRPgg5Zj odofAB2bF8Wom4R5iK4whU OcYQPqtUNrLmFcMKRssb5j iBLaHDgwb4RmZVP9ztQ7zO QarHZwHPBhZF22Choft5Qw EykxFMZ6RTUaxpOlx3Ykm3 apElGpatSlK1ocW4PgIMVv RLGfIYHsUoKnncJpb1Cwc6 RsxHNaoCd4m9jnANOhLZRp aUbng5uaGIL8OPGcV4K4wO Bmc1pjLQslGPBidRB9hhxj VZrzKAJerzG7nzrwHCpdAZ KacAW0xdjfSGycAHHtWmU4 womlIEazYKQyWIF4ZZddf1 08KZS6YRkuAmteNNkuYIQc bmNvbnRccGduZGVjXHBsYW luXHBsYWluXGYwXGZzMjRc fFydsHfugJ1dEcTcLbNiVG qcZT9uVJMrA8scmPAeQJJn XSYxR7wbIrJcqG3ieUnjCA xmczIwIExFRlQgUExFVVJB TCBGTFVJRFxwYXJ9 GROSS DESCRIPTION (test h1oxrLXkZPQkxITyQzMxJE code = 3366) SlJLMnv6xbHPYdiFGdPgTr MzNcZnRuYmpcdWMxXGRlZm Bzj7csb485pJQex0bhDOCu GaO5jHPxISQrcOAuN671ZH BvZReil0ohb6WrJWRiaMXx y3A3FNUYhevuzBm9rKhpV4 5ea9G1NfejO5gtQPGaNKAt K7UyUZ2uOPTbLzq9ZLM2JA D3IGBpPNIgB6EfLC4iLXWl yRHpIGh8g2crmXrzJOPcRW O6a3gxYHxrxnQcFB5vij2y xUr4m3cohsLgUWWcAOOwvK REJJMvM4FkxFibLd7afRo3 dOpnKvofJHF1Cky8RZ4knf 15wrz7fDuvYBVmcmkqQrU2 UZliHVWqiqztFLy3JYmjHX JnbDcyMFxtYXJncjcyMFxt YXJndDcyMFxtYXJnYjcyMF hoQPCwEJK6HCgqh839FBY8 UZzze8vxy9fjbIVwAsq7LW FqBjMoWksgSZppw2Cmy6mu CMBsgo9kYBE9eUIcgLuog6 W5iLIuRKPvzPRlizIpSPBq MsD8QUgbST8pqo48LATdGJ N5yz2rfRWufXxntuBjdSLn LJtlX5BvZQMok361PIWgB0 JwPFXxk6J0qtAvUjTsJGNy kBI1tnK2DUWhCTm1eOQgvs M4ifOhsIXxF8phbK89NpNz tIOjN2AzlV40BoXpyZMnY8 BriY07NbJqvTFrA3NqaI65 LpZvhTEtTDRgeMMeHl0fvF QprJHfs4CqxQRuRNwtR82u c243MWAwuxBtK9zmiTFmlo ookEEwzfcoPEqixeR4BTMg XHBsYWluXGYxXGZzMjJcbG FuZzEwMzNcaGljaFxmMVxk TgHgXAYlNBsbN3toWpUzRf HcAoWIQNEmqWQjYIL0RVHn iHzbZgSgy61vNkq1wFPhyC TgNWLmMAXjoiElGWXvT9y7 k2CqgQ2lOFRfmaYTz9grFU T8MAC3HYRgYlFbJUtaCUQw KhPnTGr1WVA9XSRjRkNnDT xwYXJ9 STATEMENT OF ADEQUACY Satisfactory (test code = 2757) Gross assessment was [facility] performed at ([facility], = 2777) Department of Pathology, [address] [place] [address], Technical component was [facility] performed at ([facility], = 6385) Department of Pathology, [address] [place] [address] 34027, Professional component [facility] was performed at ([facility], code = 2779) Department of Pathology, [address] [place] [address], [facility] 16:41:00Medical Cytology Report Case: [id number] Aut horizing Provider: Sara Manjarrez MD Collected: 01/18/2020 04:20 PM Ordering Location: [address] Received: 01/19/2020 09:12 AM Pathologist: Samra Coley MD Specimen: Pleural, Left PLEURAL, LEFT,FLUID (CYTOSPINS): - NEGATIVE FOR MALIGNANCY - INCREASED NEUTROPHILS PRESENT Signing Pathologist Direct Phone Line: [phone] signed by Samra Coley MD on 01/19/2020 at 4:41 [id number] pleural effusion; admitted on 01/17/2020 w/ history of HTN, HLD, CAD, obesity, SSS (pacemaker dependent), chronic HFrEF s/p Bi-V ICD (upgrade 2014) who presents from [facility] after aspiration event and for replacement of his pacemakerLEFT PLEURAL FLUIDReceived 800 ml brown fluidPrepared 4 cytospinsCollected: [id number]: [id number] [facility], Department of Pathology, [address] [place] [address], [facility], Department of Pathology, [address] [place] [address], [facility]qfjvnBakersfield [facility], Department of Pathology, [address] [place] [address], C/S, [id number] 12:40:00CELL COUNTLaterality?->LeftReason for exam:->PLEURAL EFFUSIONShould this be performed at the bedside?->YesLabs to be Ordered:- >Body Fluid Culture (w/Gram Stain, C\\T\\S)Labs to be Ordered:->CytologyLabs to be Ordered:->Fungal CultureLabs to be Ordered:- >Glucose+LDH+ProteinLabs to beOrdered:->Other (please add comment)FINAL REPORT Exam: Ultrasound guided thoracentesis Clinical History: Left-sided Pleural Effusion Aviation Survival Technician: Cassidy Parra PA-C Supervising Physician: Gregorio Thompson MD Consent: Benefits and risks were explained to the patient who gave consent to the procedure. Complication: None Immediate Procedure: The patient was placed in right lateral decubitus position. Theleft posterior chest was prepped and draped in usual sterile fashion. 2% lidocaine was used as localanesthetic. Under ultrasound guidance, a thoracentesis catheter was [...] stablecondition. Impression: Ultrasound guided left-sided thoracentesis. Signed: Gregorio Thompson Verified Date/Time: 01/19/2020 12:40:39 Reading Location: [address] Ultrasound Reading Room [id number] 12:40:00Interface, External Ris In - 01/19/2020 12:42 PM CDTFINAL REPORT Exam: Ultrasound guided thoracentesis Clinical History: Left-sided Pleural Effusion Aviation Survival Technician: Cassidy Parra PA-C Supervising Physician: Gregorio Thompson MD Consent: Benefits and risks were explained tothe patient who gave consent to the procedure. Complication: None Immediate Procedure: The patientwas placed in right lateral decubitus position. The left posterior chest was prepped and draped in usual sterile fashion. 2% lidocaine was used as local anesthetic. Under ultrasound guidance, a thoracentesis catheter was inserted into the pleural cavity. Approximately 850 cc of serosanguineous pleuralfluid was aspirated. The catheter was removed. The specimen was sent to the laboratory for further analysis. The patient tolerated the procedure well without any adverse reaction. A STAT chest x-ray was ordered. The patient left the department in stable condition. Impression: Ultrasound guided left-sided thoracentesis. Signed: Gregorio Thompson MDRes Verified Date/Time: 01/19/2020 12:40:39 ReadingLocation: [place] [id number] Ultrasound Reading Room [facility] [id number] 12:39:00 Test Item Value Reference Range Interpretation Comments PTT (test code = 65680-3) 53.1 22.5- 36.0 seconds H Lab Interpretation (test code = Abnormal 19021-3) [facility] 12:39:00 Test Item Value Reference Range Interpretation Comments PARTIAL THROMBOPLASTIN TIME 53.1 seconds 22.5-36.0 H (BEAKER) (test code = 760) CT, CHEST, WITHOUT [id number] 12:17:00FINAL REPORT CT Chest without contrast History: [...] George MDReport Verified Date/Time: 01/19/202012:17:48 Reading Location: [facility] Mammo Reading Room CT chest without IV [id number] 12:17:00Interface, External Ris In - 01/19/2020 12:[address] Chest without contrast History: Pleural effusion Comparison: 12/17/2019 Technique: serial axial imaging was performed without intravenous contrast as per departmental protocol. Multiplanar images are reconstructed and reviewed when indicated. This CT examination is performed using one or more of the followingdose reduction techniques: Automated exposure control, adjustment of the mA and /or kV according to patient size, and/or use of iterative reconstruction technique. Findings:No mediastinal lymphadenopathy. Calcified mediastinal and right hilar lymph nodes are consistent with previous granulomatous disease. No definite hilar enlargement. Mild cardiomegaly. Cardiac pacer in place. No pericardial effusion. No thoracic aortic aneurysm. Normal caliber of main pulmonary trunk. Patent central airways. Moderate left and small right pleural effusions are noted. Assessment [...] 1. Moderate left and small right pleural effusions.2. Mild cardiomegaly.3. Patchy bilateral pulmonary groundglass densities, nonspecific. This most likely represents pulmonary edema. Signed: Matthew George [facility]epfult[facility] Verified Date/Time: 01/19/2020 12:17:48 Reading Location: [facility] Mammo Reading [facility] [id number] 06:13:00 Test Item Value Reference Range Interpretation Comments POC-GLUCOSE METER 128 mg/dL 70-110 H : TESTED A T [facility] 6720 (BEAKER) (test code = [address] [facility], 1538) [address]: Truck Bench Mechanic/Techni lars ID = [id number] for RONY MTZ C-Reactive [id number] 05:43:00 Test Item Value Reference Range Interpretation Comments CRP (test code = 676) 9.08 mg/dL 0-0.5 H DMITRIY (test code = DMITRIY) Truck Bench Mechanic ID - ADAMARIS [place] Lab Interpretation (test Abnormal code = 93468-3) [facility] 05:43:00 Test Item Value Reference Range Interpretation Comments MAGNESIUM (BEAKER) (test code = 1.9 mg/dL 1.6-2.6 627) Truck Bench Mechanic ID - ADAMARIS MBASIC METABOLIC [id number] 05:43:00 Test Item Value Reference Range Interpretation [...] S NOT APPLICABLE FOR DIALYSIS PATIEN TS. Truck Bench Mechanic ID Jorge BAILON MHEPATIC FUNCTION [id number] 05:43:00 Test Item Value Reference Range Interpretation [...] (test code = 23 U/L 6-55 347) Truck Bench Mechanic ID - ADAMARIS MCREATINE KINASE (CK)2020-01-19 05:43:00 Test Item Value Reference Range Interpretation Comments CREATINE KINASE TOTAL (BEAKER) (test 22 U/L 29-200 L code = 380) Truck Bench Mechanic ID - ADAMARIS MC-REACTIVE [id number] 05:43:00 Test Item Value Reference Range Interpretation Comments C-REACTIVE PROTEIN (BEAKER) (test 9.08 mg/dL 0.00-0.50 H code = 676) Truck Bench Mechanic ID - ADAMARIS MCBC (HEMOGRAM ONLY)2020-01-19 [...] WBC 0-0 (BEAKER) (test code = 413) [id number] 05:21:00 Test Item Value Reference Range Interpretation [...] INR is2.5-3.5 for patients wiht mechanical heart valves.[id number] 23:47:00 Test Item Value Reference Range Interpretation Comments PARTIAL THROMBOPLASTIN TIME 59.5 seconds 22.5-36.0 H (NICOLEAKER) (test code = 760) POCT-GLUCOSE [id number] 23:37:00 Test Item Value Reference Range Interpretation Comments POC-GLUCOSE METER 128 mg/dL 70-110 H : TESTED A T [facility] 6720 (HAYDEN) (test code = [place], 1538) [address]: Truck Bench Mechanic/Techni lars ID = [id number] for UE MARTI, RONY Protein, Total, Pleural [id number] 22:11:00 Test Item Value Reference Range Interpretation Comments PROTEIN, TOTAL, PLEURAL FLUID (test 3.5 code = 2882-9) [facility] Center[facility] fluid cell count with [id number] 18:12:00 Test Item Value Reference Range Interpretation Comments Appearance (test code = Slightly Cloudy Clear A 9335-1) Color (test code = 6824-7) Juliette Colorless, Straw A RBCs (test code = 46117-6) 10709 <=1 /cu mm H Adjusted WBC Count (test 901 <=5 /cu mm H code = 63110-4) Lining Cells (test code = 9 <=1 /cu mm H 35368-3) % Segs (test code = 34526-2) 55 % % Lymphs (test code = 27 % 75974-1) % Monos (test code = 18 % 46204-6) % Eos (test code = 91056-5) 0 % % Baso (test code = 75117-6) 0 % Container Body Fluid (test EDTA Tube code = 2873) Lab Interpretation (test Abnormal code = 42592-5) [facility] CenterBODY FLUID CELL COUNT WITH [id number] 18:12:00 Test Item Value Reference Range Interpretation Comments APPEARANCE FLUID (BEAKER) Slightly Cloudy Clear A (test code = 510) COLOR FLUID (BEAKER) (test Juliette Colorless, Straw A code = 511) RBC FLUID (BEAKER) (test 01654 /cu mm <=1 H code = 513) [...] Tube (BEAKER) (test code = 2873) POCT-GLUCOSE [id number] 17:51:00 Test Item Value Reference Range Interpretation Comments POC-GLUCOSE METER 125 mg/dL 70-110 H : TESTED A T [facility] 6720 (BEAKER) (test code = [place] [facility], 1538) 52602: Truck Bench Mechanic/Techni lars ID = [id number] for AG ROBINS [id number] 17:20:00 Test Item Value Reference Range Interpretation Comments PARTIAL THROMBOPLASTIN TIME 35.5 seconds 22.5-36.0 (BEAKER) (test code = 760) RAD, CHEST, 1 VIEW, NON [id number] 16:12:00Reason for exam:->post left sided thoracentesisShould this [...] Huerta MDReport Verified Date/Time: 01/18/2020 16:12:43 POCT-GLUCOSE [id number] 12:20:00 Test Item Value Reference Range Interpretation Comments POC-GLUCOSE METER 107 mg/dL 70-110 : TESTED A T [facility] 6720 (BEAKER) (test code = [place], 1538) 85[address]: Truck Bench Mechanic/Techni lars ID = [id number] for AG ROBINS, CHEST, 1 VIEW, NON [id number] 05:28:00Reason for exam:->PLEURAL EFFUSIONShould this be performed [...] Hiram Burton MDReport Verified Date/Time: 01/18/2020 05:28:26 Lactate dehydrogenase (LDH)2020-01-18 04:58:00 Test Item Value Reference Range Interpretation Comments LDH (test code = 2532-0) 145 U/L 125-220 DMITRIY (test code = DMITRIY) Truck Bench Mechanic ID - ADAMARIS [place] Lab Interpretation (test Normal code = 52473-4) [facility] CenterCREATINE KINASE (CK)2020-01-18 04:58:00 Test Item Value Reference Range Interpretation Comments CREATINE KINASE TOTAL (BEAKER) (test 35 U/L 29-200 code = 380) Truck Bench Mechanic ELLY BAILON MLACTATE DEHYDROGENASE (LDH)2020-01-18 04:58:00 Test Item Value Reference Range Interpretation Comments LACTATE DEHYDROGENASE (BEAKER) (test 145 U/L 125-220 code = 635) Truck Bench Mechanic ID - ADAMARIS MBASIC METABOLIC [id number] 04:58:00 Test Item Value Reference Range Interpretation [...] S NOT APPLICABLE FOR DIALYSIS PATIEN TS. Truck Bench Mechanic ID - ADAMARIS MHEPATIC FUNCTION [id number] 04:58:00 Test Item Value Reference Range Interpretation [...] (test code = 24 U/L 6-55 347) Truck Bench Mechanic ID - ADAMARIS [id number] 04:53:00 Test Item Value Reference Range Interpretation [...] 0-0 (BEAKER) (test code = 413) POCT-GLUCOSE [id number] 00:46:00 Test Item Value Reference Range Interpretation Comments POC-GLUCOSE METER 107 mg/dL 70-110 : TESTED A T [facility] 6720 (BEAKER) (test code [facility], = 1538) 40405: Truck Bench Mechanic/Techni lars ID = [id number] for SAQIB BAKER [id number] 21:46:00 Test Item Value Reference Range Interpretation Comments PARTIAL THROMBOPLASTIN TIME 44.2 seconds 22.5-36.0 H (BEAKER) (test code = 760) Prior to initiating heparinPlatelet [id number] 21:38:00 Test Item Value Reference Range Interpretation Comments Platelets (test code = 168 150- 450 K/CU MM 777-3) DMITRIY (test code = DMITRIY) Truck Bench Mechanic ID - [id number] Lab Interpretation (test Normal code = 49147-9) [facility] CenterPLATELET [id number] 21:38:00 Test Item Value Reference Range Interpretation Comments PLATELET COUNT (BEAKER) (test 168 K/CU MM 150-450 code = 756) Truck Bench Mechanic ID - [id number]-GLUCOSE [id number] 18:53:00 Test Item Value Reference Range Interpretation Comments POC-GLUCOSE METER 119 mg/dL 70-110 H : TESTED A T [facility] 6720 (BEAKER) (test code = [facility], 1538) 05851: Truck Bench Mechanic/Techni lars ID = [id number] for WILLIS OREILLY FUNGUS CULTURE + [id number] 17:59:00 Test Item Value Reference Range Interpretation Comments CULTURE (BEAKER) (test No fungus isolated in code = 1095) 28 days FUNGUS SMEAR (BEAKER) No fungi seen (test code = 1406) BLOOD [id number] 15:00:00 Test Item Value Reference Range Interpretation Comments CULTURE (BEAKER) (test No growth in 5 days code = 1095) BLOOD [id number] 15:00:00 Test Item Value Reference Range Interpretation Comments CULTURE (BEAKER) (test No growth in 5 days code = 1095) POCT-GLUCOSE [id number] 12:40:00 Test Item Value Reference Range Interpretation Comments POC-GLUCOSE METER 162 mg/dL 70-110 H : TESTED A T [facility] 6720 (BEAKER) (test code = [facility], 1538) 59714: Truck Bench Mechanic/Techni lars ID = [id number] for LISBET KRAMER POCT-GLUCOSE [id number] 06:25:00 Test Item Value Reference Range Interpretation Comments POC-GLUCOSE METER 152 mg/dL 70-110 H : TESTED A T [facility] 6720 (BEAKER) (test code = [place], 1538) 79[address]: Truck Bench Mechanic/Techni lars ID = [id number] for MACIEJ BERRY Calcium, [id number] 05:12:00 Test Item Value Reference Range Interpretation Comments Calcium, Ion (test code = 1993-3) 1.24 mmol/L 1.12-1.27 pH, Blood (test code = 16635-6) 7.53 [facility], [id number] 05:12:00 Test Item Value Reference Range Interpretation Comments CALCIUM IONIZED (BEAKER) (test 1.24 mmol/L 1.12-1.27 code = 698) PH, BLOOD (BEAKER) (test code = 7.53 1810) Comprehensive metabolic [id number] 04:42:00 Test Item Value Reference Range Interpretation Comments Protein, Total (test 6.1 6.0- 8.3 gm/dL code = 2885-2) Albumin (test code = 2.0 g/dL 3.5-5 L 26209-9) Alkaline Phosphatase 95 U/L 40-150 (test code = 6768-6) Total Bilirubin (test 0.5 mg/dL 0.2-1.2 code = 1975-2) Sodium (test code = 151 meq/L 136-145 H 2951-2) Potassium (test code = 3.6 meq/L 3.5-5.1 2823-3) Chloride (test code = 113 meq/L 98-107 H 2075-0) CO2 (test code = 30 meq/L 22-29 H 2028-9) BUN (test code = 55 mg/dL 7-21 H 3094-0) Creatinine (test code 1.40 mg/dL 0.57-1.25 H = 2160-0) Glucose (test code = 151 mg/dL 70-105 H 2345-7) Calcium (test code = 9.4 mg/dL 8.4-10.2 97092-6) AST (test code = 38 U/L 5-34 H 1920-8) ALT (test code = 30 U/L 6-55 1742-6) EGFR (test code = 49 mL/min/1.73 [place] [address]-2) NOT ACCURATE CREATININE CLEARANCE IN PREDICTING GLOMERULAR FILTRATION RATE . ESTIMATED GFR I S NOT APPLICABLE FOR DIALYSIS PATIENTS. DMITRIY (test code = DMITRIY) Truck Bench Mechanic ID Jorge MAYFIELD W Lab Interpretation Abnormal (test code = 71824-6) [facility] CenterPhosphorus2020-03-[facility] 04:42:00 Test Item Value Reference Range Interpretation Comments Phosphorus (test code = 2.9 mg/dL 2.3-4.7 2777-1) DMITRIY (test code = DMITRIY) Truck Bench Mechanic ID Jorge MAYFIELD W Lab Interpretation (test Normal code = 81427-8) [facility] CenterPHOSPHORUS2020-03-05 04:42:00 Test Item Value Reference Range Interpretation Comments PHOSPHORUS (BEAKER) (test code = 2.9 mg/dL 2.3-4.7 604) Truck Bench Mechanic ID Jorge MAYFIELD [id number] 04:42:00 Test Item Value Reference Range Interpretation Comments MAGNESIUM (BEAKER) (test code = 2.2 mg/dL 1.6-2.6 627) Truck Bench Mechanic ID Jorge MAYFIELD WCOMPREHENSIVE METABOLIC [id number] 04:42:00 Test Item Value Reference Range Interpretation [...] S NOT APPLICABLE FOR DIALYSIS PATIEN TS. Truck Bench Mechanic ID - TRAN [id number] 04:41:00 Test Item Value Reference Range Interpretation Comments PARTIAL THROMBOPLASTIN TIME 72.3 seconds 22.5-36.0 H (BEAKER) (test code = 760) CBC W/PLT COUNT & AUTO [id number] 04:27:00 Test Item Value Reference Range Interpretation [...] 0-1 PERCENT (BEAKER) (test code = 2801) [id number] 23:27:00 Test Item Value Reference Range Interpretation Comments Potassium (test code = 3.5 meq/L 3.5-5.1 Speci men 2823-3) slightly hemolyzed DMITRIY (test code = DMITRIY) Truck Bench Mechanic ID - PIAYA L Lab Interpretation Normal (test code = 87009-7) [facility] CenterMAGNESIUM2020-03-04 23:27:00 Test Item Value Reference Range Interpretation Comments MAGNESIUM (BEAKER) 2.3 mg/dL 1.6-2.6 Specimen slightly (test code = 627) hemolyzed Truck Bench Mechanic ID - PIAYA [id number] 23:27:00 Test Item Value Reference Range Interpretation Comments POTASSIUM (BEAKER) 3.5 meq/L 3.5-5.1 Specimen slightly (test code = 379) hemolyzed Truck Bench Mechanic ID - SANAAYA LPOCT-GLUCOSE [id number] 22:08:00 Test Item Value Reference Range Interpretation Comments POC-GLUCOSE METER 137 mg/dL 70-110 H : TESTED A T [facility] 6720 (BEAKER) (test code = [facility], 1538) 95103: Truck Bench Mechanic/Techni lars ID = [id number] for MACIEJ BERRY POCT-GLUCOSE [id number] 18:25:00 Test Item Value Reference Range Interpretation Comments POC-GLUCOSE METER 138 mg/dL 70-110 H : TESTED A T [facility] 6720 (BEAKER) (test code = [facility], 1538) 14413: Truck Bench Mechanic/Techni lars ID = [id number] for MARCELLUS KRAMERE BLOOD [id number] 18:00:00 Test Item Value Reference Range Interpretation Comments CULTURE (BEAKER) (test No growth in 5 days code = 1095) BLOOD [id number] 18:00:00 Test Item Value Reference Range Interpretation Comments CULTURE (BEAKER) (test No growth in 5 days code = 1095) POCT-GLUCOSE [id number] 12:30:00 Test Item Value Reference Range Interpretation Comments POC-GLUCOSE METER 165 mg/dL 70-110 H : TESTED A T [facility] 6720 (BEAKER) (test code = [facility], 1538) 38998: Truck Bench Mechanic/Techni lars ID = [id number] for REJI KRAMERESTE CBC W/PLT COUNT & AUTO [id number] 05:53:00 Test Item Value Reference Range Interpretation [...] (BEAKER) (test code = 2801) COMPREHENSIVE METABOLIC [id number] 05:32:00 Test Item Value Reference Range Interpretation [...] S NOT APPLICABLE FOR DIALYSIS PATIEN TS. Truck Bench Mechanic ID Jorge MAYFIELD [id number] 05:25:00 Test Item Value Reference Range Interpretation Comments PHOSPHORUS (BEAKER) (test code = 3.7 mg/dL 2.3-4.7 604) Truck Bench Mechanic ID - TRAN [id number] 05:25:00 Test Item Value Reference Range Interpretation Comments MAGNESIUM (BEAKER) (test code = 2.2 mg/dL 1.6-2.6 627) Truck Bench Mechanic ID Jorge MAYFIELD WB-type Natriuretic Factor (BNP)2019-12-29 05:14:00 Test Item Value Reference Range Interpretation Comments BNP (test code = 76280-1) 562 pg/mL 0-100 H DMITRIY (test code = DMITRIY) Truck Bench Mechanic ID Jorge MAYFIELD W Lab Interpretation (test Abnormal code = 78646-6) [facility] CenterB-[facility] NATRIURETIC FACTOR (BNP)2019-12-29 05:14:00 Test Item Value Reference Range Interpretation Comments B-TYPE NATRIURETIC PEPTIDE (BEAKER) 562 pg/mL 0-100 H (test code = 700) Truck Bench Mechanic ID Jorge TRAN [id number] 05:02:00 Test Item Value Reference Range Interpretation Comments PARTIAL THROMBOPLASTIN TIME 70.5 seconds 22.5-36.0 H (BEAKER) (test code = 760) CALCIUM, [id number] 04:39:00 Test Item Value Reference Range Interpretation Comments CALCIUM IONIZED (BEAKER) (test 1.19 mmol/L 1.12-1.27 code = 698) PH, BLOOD (BEAKER) (test code = 7.50 1810) [id number] 01:00:00 Test Item Value Reference Range Interpretation Comments POTASSIUM (BEAKER) 3.2 meq/L 3.5-5.1 L Specimen slightly (test code = 379) hemolyzed Truck Bench Mechanic ID - BSPOCT-GLUCOSE [id number] 00:50:00 Test Item Value Reference Range Interpretation Comments POC-GLUCOSE METER 130 mg/dL 70-110 H : TESTED A T [facility] 6720 (BEAKER) (test code = [facility] [employer] [facility], 1538) 80565: Truck Bench Mechanic/Techni lars ID = [id number] for MACIEJ BERRY POCT-GLUCOSE [id number] 19:07:00 Test Item Value Reference Range Interpretation Comments POC-GLUCOSE METER 145 mg/dL 70-110 H : TESTED A T [facility] 6720 (BEAKER) (test code = [employer] [facility], 1538) 39614: Truck Bench Mechanic/Techni lars ID = [id number] for AG CAROL ANN LOPEZ BASIC METABOLIC [id number] 17:36:00 Test Item Value Reference Range Interpretation [...] S NOT APPLICABLE FOR DIALYSIS PATIEN TS. Truck Bench Mechanic ID - [id number] 17:28:00 Test Item Value Reference Range Interpretation Comments PARTIAL THROMBOPLASTIN TIME 87.7 seconds 22.5-36.0 H (BEAKER) (test code = 760) [id number] 13:09:00 Test Item Value Reference Range Interpretation Comments PARTIAL THROMBOPLASTIN TIME 84.3 seconds 22.5-36.0 H (BEAKER) (test code = 760) BLOOD [id number] 13:00:00 Test Item Value Reference Range Interpretation Comments CULTURE (BEAKER) (test No growth in 5 days code = 1095) POCT-GLUCOSE [id number] 12:25:00 Test Item Value Reference Range Interpretation Comments POC-GLUCOSE METER 158 mg/dL 70-110 H : TESTED A T [facility] 6720 (BEAKER) (test code = [place], 1538) 17786: Truck Bench Mechanic/Techni lars ID = [id number] for AG CAROL ANN LOPEZ RAD, CHEST, 1 VIEW, NON [id number] 12:22:00Reason for exam:- >intubationShould this be performed at the bedside?->YesFINAL REPORT RAD, CHEST, 1 VIEW, NON DEPT INDICATION: intubation COMPARISON: Prior day's exam FINDINGS: Portable frontal view of the chest. IMPRESSION: Support Lines: Stable. Lungs and pleura: Unchanged airspace and pleural opacities. No pneumothorax.Heart and mediastinum: Stable contours. Stable surgical changes.Additional findings: None. Signed: Madeline Casasepspeedy Verified Date/Time: 12/28/2019 12:22:37 Reading Location: [facility] Radiology Reading Room BLOOD [id number] 11:00:00 Test Item Value Reference Range Interpretation Comments CULTURE (BEAKER) (test No growth in 5 days code = 1095) BLOOD [id number] 10:01:00 Test Item Value Reference Range Interpretation [...] gram positive 1123) cocci in clusters POCT-GLUCOSE [id number] 06:57:00 Test Item Value Reference Range Interpretation Comments POC-GLUCOSE METER 178 mg/dL 70-110 H : TESTED A T [facility] 6720 (BEAKER) (test code = PITER Fields [facility], 1538) 42866: Truck Bench Mechanic/Techni lars ID = [id number] for MACIEJ BERRY Blood gas, [id number] 05:21:00 Test Item Value Reference Range Interpretation Comments pH, Arterial (test code = 2744-1) 7.54 7.35-7.45 H pCO2, Arterial (test code = 36 35- 45 mmHg 2018-8) pO2, Arterial (test code = 2703-7) 159 80- 90 mmHg H O2 Sat, Arterial (test code = 99.2 % 96-97 H 2708-6) HCO3, Arterial (test code = 30 mmol/L 21-29 H 1960-4) Base Excess, Arterial (test code = 7.0 mmol/L -2-3 H 1925-7) Patient Temperature (test code = 37.0 C 8310-5) FIO2 (test code = 1819) 40 % Lab Interpretation (test code = Abnormal 08907-6) [facility], [id number] 05:21:00 Test Item Value Reference Range Interpretation [...] (BEAKER) (test code = 1819) 40.0 % [id number] 05:18:00 Test Item Value Reference Range Interpretation Comments MAGNESIUM (BEAKER) 2.4 mg/dL 1.6-2.6 Specimen slightly (test code = 627) hemolyzed Truck Bench Mechanic ID - TRAN [id number] 05:18:00 Test Item Value Reference Range Interpretation Comments PHOSPHORUS (BEAKER) 3.9 mg/dL 2.3-4.7 Specimen slightly (test code = 604) hemolyzed Truck Bench Mechanic ID - TRAN WCOMPREHENSIVE METABOLIC [id number] 05:18:00 Test Item Value Reference Range Interpretation [...] S NOT APPLICABLE FOR DIALYSIS PATIEN TS. Truck Bench Mechanic ID - TRAN WCBC W/PLT COUNT & AUTO [id number] 05:17:00 Test Item Value Reference Range Interpretation [...] PERCENT (BEAKER) (test code = 2801) CALCIUM, [id number] 05:05:00 Test Item Value Reference Range Interpretation Comments CALCIUM IONIZED (BEAKER) (test 1.24 mmol/L 1.12-1.27 code = 698) PH, BLOOD (BEAKER) (test code = 7.53 1810) [id number] 05:03:00 Test Item Value Reference Range Interpretation Comments PARTIAL THROMBOPLASTIN TIME 64.3 seconds 22.5-36.0 H (BEAKER) (test code = 760) POCT-GLUCOSE [id number] 00:13:00 Test Item Value Reference Range Interpretation Comments POC-GLUCOSE METER 154 mg/dL 70-110 H : TESTED A T [facility] 6720 (BEAKER) (test code = [place], 1538) [address]: Truck Bench Mechanic/Techni lars ID = [id number] for JAMAL MACIEJ Prepare Leuko-Red [id number] 23:54:00 Test Item Value Reference Range Interpretation Comments CROSSMATCH (test code = 2264) COMPATIBLE Unit ABO (test code = O Pos 1378231) UNIT NUMBER (test code = [id number] 934-0) Status (test code = 4046673) TX_TIMEINCHART Blood Bank Product (test code RED BLOOD CELLS = 2263) PRODUCT CODE (test code = L4898D22 933-2) [facility] Center[facility]OTASSIUM2020-[facility]-02 23:38:00 Test Item Value Reference Range Interpretation Comments POTASSIUM (BEAKER) (test code = 3.1 meq/L 3.5-5.1 L 379) Truck Bench Mechanic ID - [id number] 23:38:00 Test Item Value Reference Range Interpretation Comments MAGNESIUM (BEAKER) (test code = 2.3 mg/dL 1.6-2.6 627) Truck Bench Mechanic ID - DBPOCT-GLUCOSE [id number] 18:39:00 Test Item Value Reference Range Interpretation Comments POC-GLUCOSE METER 167 mg/dL 70-110 H : TESTED A T [facility] 6720 (BEAKER) (test code = [place], 1538) [address]: Truck Bench Mechanic/Techni lars ID = [id number] for AG UILAR, CAROL ANN CBC W/PLT COUNT & AUTO [id number] 18:12:00 Test Item Value Reference Range Interpretation [...] 0-1 PERCENT (BEAKER) (test code = 2801) [id number] 15:37:00 Test Item Value Reference Range Interpretation Comments POTASSIUM (BEAKER) (test code = 3.2 meq/L 3.5-5.1 L 379) Truck Bench Mechanic ID - [id number] 15:37:00 Test Item Value Reference Range Interpretation Comments MAGNESIUM (BEAKER) (test code = 2.2 mg/dL 1.6-2.6 627) Truck Bench Mechanic ID - BSPOCT-GLUCOSE [id number] 14:19:00 Test Item Value Reference Range Interpretation Comments POC-GLUCOSE METER 146 mg/dL 70-110 H : TESTED A T [facility] 6720 (BEAKER) (test code = PITER Fields [facility], 1538) 26352: Truck Bench Mechanic/Techni lars ID = [id number] for AG ADELALARNOMANA Lactate dehydrogenase (LDH), body [id number] 10:47:00 Test Item Value Reference Range Interpretation Comments LDH, Fluid (test 235 U/L code = 58917-3) DMITRIY (test code = Absence of reference DMITRIY) range indicates that normals have not been defined.Assay performance has not been validated for this type of specimen. [facility] CenterLACTATE DEHYDROGENASE (LDH), BODY [id number] 10:47:00 Test Item Value Reference Range Interpretation Comments LACTATE DEHYDROGENASE FLUID (BEAKER) 235 U/L (test code = 634) Absence of reference range indicates that normals have not been defined.Assay performance has not been validated for this type of specimen.POCT-GLUCOSE METER 2019-12-27 06:50:00 Test Item Value Reference Range Interpretation Comments POC-GLUCOSE METER 155 mg/dL 70-110 H : TESTED A T [facility] 6720 (BEAKER) (test code = [place], 1538) 46077: Truck Bench Mechanic/Techni lars ID = [id number] for MACIEJ BERRY BLOOD GAS, [id number] 05:55:00 Test Item Value Reference Range Interpretation [...] 30.0 % CBC W/PLT COUNT & AUTO [id number] 04:59:00 Test Item Value Reference Range Interpretation [...] 0-1 PERCENT (BEAKER) (test code = 2801) Hemoglobin and [id number] 04:58:00 Test Item Value Reference Range Interpretation Comments Hemoglobin (test code = 7.6 13.7- 17.5 GM/DL L 786-4) Hematocrit (test code = 24.1 % 40.1-51 L 4544-3) DMITRIY (test code = DMITRIY) Truck Bench Mechanic ID - [id number] Lab Interpretation (test Abnormal code = 88484-1) [facility] CenterHEMOGLOBIN AND [id number] 04:58:00 Test Item Value Reference Range Interpretation Comments HEMOGLOBIN (BEAKER) (test code = 7.6 GM/DL 13.7-17.5 L 410) HEMATOCRIT (BEAKER) (test code = 24.1 % 40.1-51.0 L 411) Truck Bench Mechanic ID - [id number] 04:54:00 Test Item Value Reference Range Interpretation Comments PARTIAL THROMBOPLASTIN TIME 94.7 seconds 22.5-36.0 H (BEAKER) (test code = 760) [id number] 04:51:00 Test Item Value Reference Range Interpretation Comments MAGNESIUM (BEAKER) (test code = 2.3 mg/dL 1.6-2.6 627) Truck Bench Mechanic ID - ADAMARIS MBASIC METABOLIC [id number] 04:51:00 Test Item Value Reference Range Interpretation [...] S NOT APPLICABLE FOR DIALYSIS PATIEN TS. Truck Bench Mechanic ID - ADAMARIS MRAD, CHEST, 1 VIEW, NON [id number] 04:19:00Reason for exam:->intubationShould this be performed at the bedside?->YesFINAL REPORT RAD, CHEST, 1 VIEW, NON DEPT INDICATION: intubation COMPARISON: Prior day's exam FINDINGS: Portable frontal view of the chest. IMPRESSION: Support Lines: Stable. Lungs and pleura: Unchanged airspace and pleural opacities. No pneumothorax.Heart and mediastinum: Stable contours. Additional findings: None. Signed: Iraida Henleyeport Verified Date/Time: 12/27/2019 04:19:08 POCT-GLUCOSE [id number] 00:40:00 Test Item Value Reference Range Interpretation Comments POC-GLUCOSE METER 136 mg/dL 70-110 H : TESTED A T [facility] 6720 (BEAKER) (test code NAE [facility], = 1538) 49786: Truck Bench Mechanic/Techni lars ID = [id number] for MADELEINE CAMARENA [id number] 00:20:00 Test Item Value Reference Range Interpretation Comments POTASSIUM (BEAKER) (test code = 3.2 meq/L 3.5-5.1 L 379) Truck Bench Mechanic ID - STACYNHEMOGLOBIN AND [id number] 00:06:00 Test Item Value Reference Range Interpretation Comments HEMOGLOBIN (BEAKER) (test code = 7.8 GM/DL 13.7-17.5 L 410) HEMATOCRIT (BEAKER) (test code = 25.4 % 40.1-51.0 L 411) Truck Bench Mechanic ID - [id number] 23:02:00 Test Item Value Reference Range Interpretation Comments PARTIAL THROMBOPLASTIN TIME 75.0 seconds 22.5-36.0 H (BEAKER) (test code = 760) [id number] 18:20:00 Test Item Value Reference Range Interpretation Comments POTASSIUM (BEAKER) (test code = 2.9 meq/L 3.5-5.1 L 379) Truck Bench Mechanic ID - STACY [id number] 18:20:00 Test Item Value Reference Range Interpretation Comments MAGNESIUM (BEAKER) (test code = 2.3 mg/dL 1.6-2.6 627) Truck Bench Mechanic ID - STACY NPOCT-GLUCOSE [id number] 17:33:00 Test Item Value Reference Range Interpretation Comments POC-GLUCOSE METER 127 mg/dL 70-110 H : TESTED A T [facility] 6720 (BEAKER) (test code = PITER Fields [facility], 1538) 34387: Truck Bench Mechanic/Techni lars ID = [id number] for BARR[place] CULVER HEMOGLOBIN AND [id number] 14:43:00 Test Item Value Reference Range Interpretation Comments HEMOGLOBIN (BEAKER) (test code = 7.8 GM/DL 13.7-17.5 L 410) HEMATOCRIT (BEAKER) (test code = 25.0 % 40.1-51.0 L 411) Truck Bench Mechanic ID - [id number]-GLUCOSE [id number] 13:37:00 Test Item Value Reference Range Interpretation Comments POC-GLUCOSE METER 123 mg/dL 70-110 H : [facility] (BEAKER) (test code = [place], 1538) 17688: Truck Bench Mechanic/Techni lars ID = [id number] for B[place] CULVER BLOOD [id number] 12:41:00 Test Item Value Reference Interpretation Comments [...] bottles: 1123) gram positive cocci in clusters Type and screen, [id number] 09:51:00 Test Item Value Reference Range Interpretation Comments ABO/RH AUTOMATED (BEAKER) (test O POSITIVE code = 2260) Ab Scrn (test code = 890-4) NEGATIVE [facility] 09:37:00 Test Item Value Reference Range Interpretation Comments PARTIAL THROMBOPLASTIN TIME 97.2 seconds 22.5-36.0 H (BEAKER) (test code = 760) RAD, CHEST, 1 VIEW, NON [id number] 09:11:00Reason for exam:- >intubationShould this be performed at the bedside?->YesFINAL REPORT Chest, one view HISTORY: Respiratory failure Comparison: 12/25/2019 Findings: Lungs: Stable bibasilar airspace disease. Heart: Stable cardiomegaly. Pleura: No pleuraleffusion or pneumothorax. Bones: Unremarkable. Lines/tubes: Unchanged in position. IMPRESSION: No significant interval change. Signed: Matthew George MDReport Verified Date/Time: 12/26/2019 09:11:59 R eading Location: [facility] B1 C013X Ortho Consult Reading Room Sputum Culture + Gram Stain 2019-12-26 09:01:00 Test Item Value Reference Range Interpretation Comments Result (test code = See comment 6463-4) Gram Stain Result <1+ gram variable (test code = 1123) coccobacilli DMITRIY (test code = 1+ YeastNo Normal DMITRIY) respiratory juan present [facility]AM [id number] 09:01:00 Test Item Value Reference Range Interpretation Comments CULTURE (BEAKER) See comment (test code = 1095) GRAM STAIN RESULT 1+ WBCs (BEAKER) (test code = 1123) GRAM STAIN RESULT 0-5 epithelial cells (BEAKER) (test code = 645524) GRAM STAIN RESULT <1+ gram positive cocci (BEAKER) (test code in pairs = 311259) GRAM STAIN RESULT <1+ budding yeast (BEAKER) (test code = 510499) GRAM STAIN RESULT <1+ gram variable (BEAKER) (test code coccobacilli = 358678) 1+ YeastNo Normal respiratory juan presentHEMOGLOBIN AND [id number] 08:11:00 Test Item Value Reference Range Interpretation Comments HEMOGLOBIN (BEAKER) (test code = 6.6 GM/DL 13.7-17.5 L 410) HEMATOCRIT (BEAKER) (test code = 20.9 % 40.1-51.0 L 411) Truck Bench Mechanic ID - [id number]-GLUCOSE [id number] 06:39:00 Test Item Value Reference Range Interpretation Comments POC-GLUCOSE METER 130 mg/dL 70-110 H : [facility] (BEAKER) (test code = [place], 1538) 13527: Truck Bench Mechanic/Techni lars ID = [id number] for MACIEJ BERRY BLOOD GAS, [id number] 05:05:00 Test Item Value Reference Range Interpretation [...] (BEAKER) (test code = 1819) 30.0 % [id number] 03:31:00 Test Item Value Reference Range Interpretation Comments MAGNESIUM (BEAKER) 2.1 mg/dL 1.6-2.6 Specimen slightly (test code = 627) hemolyzed Truck Bench Mechanic ID - ADAMARIS MBASIC METABOLIC [id number] 03:31:00 Test Item Value Reference Range Interpretation [...] S NOT APPLICABLE FOR DIALYSIS PATIEN TS. Truck Bench Mechanic ID - ADAMARIS [id number] 03:18:00 Test Item Value Reference Range Interpretation Comments PARTIAL THROMBOPLASTIN TIME 79.6 seconds 22.5-36.0 H (BEAKER) (test code = 760) CBC W/PLT COUNT & AUTO [id number] 03:06:00 Test Item Value Reference Range Interpretation [...] % 0-1 PERCENT (BEAKER) (test code = 6991) POCT-GLUCOSE [id number] 00:00:00 Test Item Value Reference Range Interpretation Comments POC-GLUCOSE METER 100 mg/dL 70-110 : TESTED A T [facility] 6720 (BEAKER) (test code = [place], 1538) 68200: Truck Bench Mechanic/Techni lars ID = [id number] for MACIEJ BERRY Eosinophil [id number] 20:38:00 Test Item Value Reference Range Interpretation Comments Eosinophil Smear (test code = No EOS seen No EOS seen 00843-3) Lab Interpretation (test code = Normal 93228-6) [facility] CenterEOSINOPHIL SMEAR, [id number] 20:38:00 Test Item Value Reference Range Interpretation Comments EOSINOPHIL SMEAR, URINE (BEAKER) No EOS seen No EOS seen (test code = 1851) Sodium, random [id number] 20:30:00 Test Item Value Reference Range Interpretation Comments Sodium Urine (test <20 meq/L code = 2955-3) DMITRIY (test code = Reference Range: No DMITRIY) NormalsOperator ID - KONRAD [facility] HospitalODIUM, RANDOM [id number] 20:30:00 Test Item Value Reference Range Interpretation Comments SODIUM URINE (BEAKER) (test code = < meq/L 243) Reference Range: No NormalsOperator ID - [id number] 20:29:00 Test Item Value Reference Range Interpretation Comments PARTIAL THROMBOPLASTIN TIME 56.5 seconds 22.5-36.0 H (BEAKER) (test code = 760) Creatinine, random [id number] 19:41:00 Test Item Value Reference Range Interpretation Comments Creatinine, Ur 51.6 mg/dL (test code = 2161-8) DMITRIY (test code = Reference Range: No DMITRIY) NormalsOperator ID - KONRAD [facility] CenterProtein, random [id number] 19:41:00 Test Item Value Reference Range Interpretation Comments Protein, Urine (test code 22 mg/dL 0-14 H = 2888-6) DMITRIY (test code = DMITRIY) Truck Bench Mechanic ID - KONRAD Lab Interpretation (test Abnormal code = 59874-6) [facility] CenterCREATININE, RANDOM [id number] 19:41:00 Test Item Value Reference Range Interpretation Comments CREATININE URINE (BEAKER) (test 51.6 mg/dL code = 375) Reference Range: No NormalsOperator ID - KENNPROTEIN, RANDOM [id number] 19:41:00 Test Item Value Reference Range Interpretation Comments PROTEIN, URINE (BEAKER) (test code = 22 mg/dL 0-14 H 1569) Truck Bench Mechanic ID - [id number] 18:41:00 Test Item Value Reference Range Interpretation Comments PARTIAL THROMBOPLASTIN TIME 114.5 seconds 22.5-36.0 H (BEAKER) (test code = 760) POCT-GLUCOSE [id number] 18:24:00 Test Item Value Reference Range Interpretation Comments POC-GLUCOSE METER 130 mg/dL 70-110 H : TESTED A T [facility] 6720 (BEAKER) (test code = [facility], 1538) 96474: Truck Bench Mechanic/Techni lars ID = [id number] for ZAC FAROOQNDANASTASIA, LISBET BLOOD [id number] 16:17:00 Test Item Value Reference Range Interpretation Comments CULTURE A From Anaerobic Bottle (BEAKER) (test Only Coagulas e code = 1095) negative Staphylococcus GRAM STAIN From anaerobic RESULT (BEAKER) bottle only: gram (test code = positive cocci in 1123) clusters BODY FLUID CULTURE + GRAM [id number] 13:20:00 Test Item Value Reference Range Interpretation Comments CULTURE (BEAKER) (test No growth code = 1095) GRAM STAIN RESULT <1+ White blood cells (BEAKER) (test code = seen 1123) GRAM STAIN RESULT No organisms seen (BEAKER) (test code = 76118) POCT-GLUCOSE [id number] 12:41:00 Test Item Value Reference Range Interpretation Comments POC-GLUCOSE METER 143 mg/dL 70-110 H : TESTED A T [facility] 6720 (BEAKER) (test code = [facility], 1538) 18227: Truck Bench Mechanic/Techni lars ID = [id number] for ZAC RNANDANASTASIA, LISBET [id number] 12:32:00 Test Item Value Reference Range Interpretation Comments PARTIAL THROMBOPLASTIN TIME 92.9 seconds 22.5-36.0 H (BEAKER) (test code = 760) U/S, RENAL, [id number] 10:05:00Reason for exam:->akiFINAL REPORT Comparison: CT of [...] MDReport Verified Date/Time: 12/25/2019 10:05:41 Reading Location: [facility] C0[facility] Transitional Reading Room US renal [id number] 10:05:00Interface, External Ris In - 12/25/2019 10:07 AM CSTFINAL REPORT Comparison:CT of the abdomen and pelvis, 12/17/2019 Discussion: Sonographic evaluation of the kidneys [...] cortical echogenicity may be due to underlying medicalrenal disease. No hydronephrosis bilaterally. Signed: Alberto Webster MDReport Verified Date/Time: 12/25/2019 10:05:41 Reading Location: [facility] C0[facility] Transitional Reading Room [facility] CenterMAGNESIUM2020-02-29 07:22:00 Test Item Value Reference Range Interpretation Comments MAGNESIUM (BEAKER) 2.4 mg/dL 1.6-2.6 Specimen slightly (test code = 627) hemolyzed Truck Bench Mechanic ID - JEN [id number] 07:22:00 Test Item Value Reference Range Interpretation Comments PHOSPHORUS (BEAKER) 3.9 mg/dL 2.3-4.7 Specimen slightly (test code = 604) hemolyzed Truck Bench Mechanic ID - JEN CCOMPREHENSIVE METABOLIC [id number] 07:22:00 Test Item Value Reference Range Interpretation [...] slightly (test code = 347) hemolyzed EGFR (HAYDEN) (test 41 mL/min/1.73 ESTIMA NINA GFR IS code = 1092) sq m NOT ACCURATE CREATININE CLEARANCE IN PREDICTING GLOMERULAR FILTRATION RATE . ESTIMATED GFR I S NOT APPLICABLE FOR DIALYSIS PATIEN TS. Truck Bench Mechanic ID - JEN CPOCT-GLUCOSE [id number] 06:58:00 Test Item Value Reference Range Interpretation Comments POC-GLUCOSE METER 179 mg/dL 70-110 H : TESTED A T [facility] 6720 ([place]AYDEN) (test code = PITER Fields [facility], 1538) 50098: Truck Bench Mechanic/Techni lars ID = [id number] for KIRBY, MAR ISOL RAD, CHEST, 1 VIEW, NON [id number] 06:12:00Reason for exam:- >intubationShould this be performed at the bedside?->YesFINAL REPORT RAD, CHEST, 1 VIEW, NON DEPT INDICATION: intubation COMPARISON: Prior day's exam FINDINGS: Portable frontal view of the chest. IMPRESSION: Support Lines: No significant change. Lungs and pleura: Airspace and pleural opacities are unchanged. No pneumothorax.Heart and mediastinum: Stable contours. Additional findings: None. Signed: Alvaro Huerta MDReport Verified Date/Time: 12/25/2019 06:12:41 Complement Component [id number] 05:28:00 Test Item Value Reference Range Interpretation Comments C4 Complement (test code = 28 mg/dL 15-57 92243-7) DMITRIY (test code = DMITRIY) Truck Bench Mechanic ID - ADAMARIS M Lab Interpretation (test Normal code = 78586-2) [facility] CenterComplement Component [id number] 05:28:00 Test Item Value Reference Range Interpretation Comments C3 Complement (test code = 142 mg/dL 82-193 4487-5) DMITRIY (test code = DMITRIY) Truck Bench Mechanic ID - ADAMARIS M Lab Interpretation (test Normal code = 10734-8) [facility] CenterCOMPLEMENT COMPONENT [id number] 05:28:00 Test Item Value Reference Range Interpretation Comments C4 COMPLEMENT (HAYDEN) (test code = 28 mg/dL 15-57 394) Truck Bench Mechanic ID - ADAMARIS MCOMPLEMENT COMPONENT [id number] 05:28:00 Test Item Value Reference Range Interpretation Comments C3 COMPLEMENT (BEAKER) (test code = 142 mg/dL 82-193 393) Truck Bench Mechanic ID - ADAMARIS MCALCIUM, [id number] 05:24:00 Test Item Value Reference Range Interpretation Comments CALCIUM IONIZED (BEAKER) (test 1.21 mmol/L 1.12-1.27 code = 698) PH, BLOOD (BEAKER) (test code = 7.50 1810) BLOOD GAS, [id number] 05:14:00 Test Item Value Reference Range Interpretation [...] (BEAKER) (test code = 1819) 30.0 % [id number] 05:11:00 Test Item Value Reference Range Interpretation Comments PARTIAL THROMBOPLASTIN TIME 67.7 seconds 22.5-36.0 H (BEAKER) (test code = 760) CBC W/PLT COUNT & AUTO [id number] 05:01:00 Test Item Value Reference Range Interpretation [...] PERCENT (BEAKER) (test code = 2801) POCT-GLUCOSE [id number] 01:26:00 Test Item Value Reference Range Interpretation Comments POC-GLUCOSE METER 150 mg/dL 70-110 H : TESTED Joanna Luque [facility] 6720 (BEAKER) (test code = [place], 1538) 16952: Truck Bench Mechanic/Techni lars ID = [id number] for LAMIN POSADA POCT-GLUCOSE [id number] 17:58:00 Test Item Value Reference Range Interpretation Comments POC-GLUCOSE METER 166 mg/dL 70-110 H : TESTED Joanna Luque [facility] 6720 ([place]) (test code = [place], 1538) 728[address]: Truck Bench Mechanic/Techni lars ID = [id number] for LISBET KRAMER EEG AWAKE AND [id number] 17:26:00Reason for exam:->[facility]uresCH[facility] DATE(s) OF TEST: 12/16/2019DATE OF REPORT: 12/16/2019ACC: [id number] time/date: 15:16Stop time/date: 15:37ICD-10: R56.9CPT Code: 59775 HISTORY: 74 year old man with encephalopathy, [...] Marcell M.D., FACNS, FAAN, FAESProfessor of Neurology, [facility]aritan HospitalDirector, [facility] Epilepsy CenterOhio Valley HospitalMicah [facility] EEG AWAKE AND [id number] 17:26:00Interface, External Ris In - 12/24/2019 5:26 PM [facility] EEG REPORT DATE(s) OF TEST: 12/16/2019DATE OF REPORT: 12/16/2019ACC: [id number] time/date: 15:16Stop time/date: 15:37ICD-10: R56.9CPT Code: 26736 HISTORY: 74 year old man with encephalopathy, intubated, cooperative. He has an infected pacemaker pocket. MEDICATIONS THAT COULD AFFECT EEG: Dilaudid TECHNICAL S UMMARY: This is a digital video EEG recorded [...] predominated. Central mu rhythm was noted at 7Hz. Drowsiness was characterized by more slowing but stage 2 sleep was not reached. INTERICTALEPILEPTIFORM DISCHARGES: NoneEVENTS/SEIZURES: None HV: Hyperventilation was not done. PHOTIC STIMULATION: Photic stimulation was done from 1-33 Hz; no photic driving was seen; photoparoxysmal responses were absent. VIDEO EVENTS RECORDED: None ELECTROCARDIOGRAM EVENTS: Irregular Rhythm with 2 QRSmorphologies IMPRESSION: Abnormal Awake and Drowsy EEG1. Slowing of the posterior dominant rhythm2. Generalized theta slowing. CLINICAL CORRELATION: The slowing is consistent with a mild degree of encephalopathy. A nonepileptiform EEG does not rule out epilepsy. If the clinical suspicion of epilepsy is high, consider a repeat EEG. Stanley Jean-Baptiste M.D., FACNS, FAAN, FAESProfessor ofNeurology, [facility] of [facility] HospitalDirector, [facility] Comprehensive Epilepsy CenterMicah Hair Neurophysiology Lab [facility] AngelesCREATINE KINASE (CK)2019-12-24 12:26:00 Test Item Value Reference Range Interpretation Comments CREATINE KINASE TOTAL (BEAKER) (test 13 U/L 29-200 L code = 380) Truck Bench Mechanic ID - PIAYA LPOCT-GLUCOSE [id number] 12:11:00 Test Item Value Reference Range Interpretation Comments POC-GLUCOSE METER 155 mg/dL 70-110 H : TESTED Joanna Luque [facility] 6720 (BEAKER) (test code = [place], 1538) 07371: Truck Bench Mechanic/Techni lars ID = [id number] for LISBET KRAMER RAD, CHEST, 1 VIEW, NON [id number] 10:12:00Reason for exam:- >intubationShould this be performed [...] [place] Verified Date/Time: 12/24/2019 10:12:54 Reading Location: [address] Transitional Reading Room BASIC METABOLIC [id number] 09:59:00 Test Item Value Reference Range Interpretation [...] S NOT APPLICABLE FOR DIALYSIS PATIEN TS. Truck Bench Mechanic ID Jorge MCCOYLOOD GAS, [id number] 08:25:00 Test Item Value Reference Range Interpretation [...] (test code = 1819) 45.0 % POCT-GLUCOSE [id number] 06:32:00 Test Item Value Reference Range Interpretation Comments POC-GLUCOSE METER 186 mg/dL 70-110 H : TESTED A T [facility] 6720 (BEAKER) (test code = PITER Fields [facility], 1538) [address]: Truck Bench Mechanic/Techni lars ID = [id number] for Co bb, Genesis [id number] 03:57:00 Test Item Value Reference Range Interpretation Comments MAGNESIUM (BEAKER) 2.3 mg/dL 1.6-2.6 Specimen slightly (test code = 627) hemolyzed Truck Bench Mechanic ID - LV LBASIC METABOLIC [id number] 03:57:00 Test Item Value Reference Range Interpretation [...] S NOT APPLICABLE FOR DIALYSIS PATIEN TS. Truck Bench Mechanic ID - LV LLactic Acid, [id number] 03:44:00 Test Item Value Reference Range Interpretation Comments Lactate, Art (test code = 1.9 mmol/L 0.5-2.2 2874) DMITRIY (test code = DMITRIY) Truck Bench Mechanic ID - LV L Lab Interpretation (test Normal code = 38770-1) [facility], [id number] 03:44:00 Test Item Value Reference Range Interpretation Comments LACTATE BLOOD ARTERIAL (2) 1.9 mmol/L 0.5-2.2 (BEAKER) (test code = 2874) Truck Bench Mechanic ID - LV LCBC W/PLT COUNT & AUTO [id number] 03:40:00 Test Item Value Reference Range Interpretation [...] 0-1 PERCENT (BEAKER) (test code = 2801) [id number] 02:59:00 Test Item Value Reference Range Interpretation Comments PARTIAL THROMBOPLASTIN TIME 88.1 seconds 22.5-36.0 H (BEAKER) (test code = 760) POCT-GLUCOSE [id number] 00:23:00 Test Item Value Reference Range Interpretation Comments POC-GLUCOSE METER 219 mg/dL 70-110 H : TESTED A T [facility] 6720 (BEAKER) (test code = [place], 1538) [address]: Truck Bench Mechanic/Techni lars ID = [id number] for Genesis Potts [id number] 20:07:00 Test Item Value Reference Range Interpretation Comments PARTIAL THROMBOPLASTIN TIME 70.4 seconds 22.5-36.0 H (BEAKER) (test code = 760) PET/CT, WHOLE BODY [id number] 19:37:00FINAL REPORT PROCEDURE: FDG PET/CT for inflammation CPT CODE: 61397 INDICATION: FDG PET/CT was obtained localize persistent [...] Susan Craig MDReport Verified Date/Time: 12/23/2019 19:37:11 NM PET/CT Whole Body [id number] 19:37:00Interface, External Ris In - 12/23/2019 7:39 PM CSTFINAL REPORT PROCEDURE: FDG PET/CT for inflammation CPT CODE: 52569 INDICATION: FDG PET/CT was obtained localize persistent bacteremia of unknown COMPARISON: None PROTOCOL: 11.6 mCi of F-18 fluorodeoxyglucose (FDG) was injected intravenously via NA. Serum glucose was NA mg/dL prior to injection. Imageswere begun NA minutes after injection and included [...] of the posterior basal segment. Abdomen/Pelvis: No abnormalFDG activity within the liver, gallbladder, spleen, pancreas, kidneys, adrenals, and bowel. No FDG-avid mesenteric or retroperitoneal lymph nodes. No abnormal FDG activity within the pelvis. No FDG-avid pelvic or inguinal lymph nodes. Nonspecific intestinal activity is noted. Musculoskeletal: No FDG-avid skeletal lesions. IMPRESSION: Abnormal exam. There are two foci noted in the mediastinum increased activity in the right lower lobe consistent with inflammatory processes. Nonspecific bowel activity was seen. Focal inflammation cannot be excluded. Signed: Susan Craig MDReport Verified Date/Time: 12/23/2019 19:37:11 [facility]CT[facility] [id number] 18:31:00 Test Item Value Reference Range Interpretation Comments POC-GLUCOSE METER 158 mg/dL 70-110 H : TESTED A T [facility] 6720 (BEAKER) (test code = [place], 1538) [address]: Truck Bench Mechanic/Techni lars ID = [id number] for LUCY HENDRIX Respiratory Panel [id number] 18:28:00 Test Item Value Reference Range Interpretation Comments Human Metapneumovirus Not detected Not detected, (test code = 03835-5) Equivocal Rhinovirus (test code = Not detected Not detected, 23703-5) Equivocal INFLUENZA A (NO Not detected Not detected, SUBTYPE) (test code = Equivocal 67734-8) Influenza A subtype H1 (test code = 64739-4) Influenza A Subtype H3 (test code = 47381-4) Influenza A Subtype H1-2009 (test code = 71485-6) Influenza B (test code Not detected Not detected, = 20527-4) Equivocal Respiratory Syncytial Not detected Not detected, Virus (test code = Equivocal 71783-4) Parainfluenza Virus 1 Not detected Not detected, (test code = 98508-5) Equivocal Parainfluenza Virus 2 Not detected Not detected, (test code = 35846-4) Equivocal Parainfluenza virus 3 Not detected Not detected, (test code = 30497-8) Equivocal Parainfluenza Virus 4 Not detected Not detected, (test code = 82569-2) Equivocal Adenovirus (test code = Not detected Not detected, 50490-4) Equivocal Coronavirus 229E (test Not detected Not detected, code = 73230-6) Equivocal Coronavirus HKU1 (test Not detected Not detected, code = 08046-9) Equivocal Coronavirus NL63 (test Not detected Not detected, code = 48264-2) Equivocal Coronavirus OC43 (test Not detected Not detected, code = 39231-8) Equivocal Bordetella Pertussis Not detected Not detected, (test code = 22097-5) Equivocal Chlamydophila Not detected Not detected, Pneumoniae (test code = Equivocal 46217-7) Mycoplasma Pneumoniae Not detected Not detected, (test code = 04770-5) Equivocal DMITRIY (test code = DMITRIY) Other viruses and bacteria not targeted by this PCR panel cannot be excluded; therefore clinical correlation and follow up of serology, culture results, and other molecular studies is required. The results are not intended to be used as the sole means for clinical diagnosis or patient management decisions. This sample was tested at the [facility]ostics Laboratory using the Bio[employer] FilmArray Respiratory Panel. It is FDA cleared and has been verified and approved by the [facility] for clinical use on nasopharyngeal swab specimens. The performance of the FilmArray RP has not been established in individuals who received influenza vaccine. Recent administration of a nasal influenza vaccine may cause false positive results for Influenza A and/orInfluenza B. [facility] [id number] 18:28:00 Test Item Value Reference Range Interpretation [...] Equivocal MYCOPLASMA PNEUMONIAE Not detected Not detected, (NICOLEAKER) (test code = 3207) Equivocal Other viruses and bacteria not targeted by this PCR panel cannot be excluded; therefore clinical correlation and follow up of serology, culture results, and other molecular studies is required. The results are not intended to be used as the sole means for clinical diagnosis or patient management decisions. This sample was tested at the [facility] Diagnostics Laboratory using the [employer] FilmArray Respiratory Panel. It is FDA cleared and has been verified and approved by the [facility] for clinical use on nasopharyngeal swab specimens.The performance of the FilmArrayRP has not been established in individuals who received influenza vaccine. Recent administration ofa nasal influenza vaccine may cause false positive results for Influenza A and/orInfluenza B.POCT-GLUCOSE [id number] 15:39:00 Test Item Value Reference Range Interpretation Comments POC-GLUCOSE METER 169 mg/dL 70-110 H : Notified RN/MD: (HAYDEN) (test code = TESTED AT [place] [address] 1537) [facility], [address]: Truck Bench Mechanic/Techni lars ID = [id number] for RAHEL SALMON [id number] 14:46:00 Test Item Value Reference Range Interpretation Comments Cortisol, Total (test code 22.9 ug/dL 3.7-19.4 H = 2755) DMITRIY (test code = DMITRIY) Truck Bench Mechanic ID - KARL M Lab Interpretation (test Abnormal code = 52473-9) [facility] CenterCORTISOL2020-02-27 14:46:00 Test Item Value Reference Range Interpretation Comments CORTISOL, TOTAL (HAYDEN) (test 22.9 ug/dL 3.7-19.4 H code = 2755) Truck Bench Mechanic ID - KARL MPOCT-GLUCOSE [id number] 14:29:00 Test Item Value Reference Range Interpretation Comments POC-GLUCOSE METER 153 mg/dL 70-110 H : TESTED A T [facility] 67 [facility] (test code = PITER Fields [facility], 153) [address]: Truck Bench Mechanic/Techni lars ID = [id number] for KRYSTIN PHILIPPEDANIELE MarshallBLAIRE [id number] 14:27:00 Test Item Value Reference Range Interpretation Comments PARTIAL THROMBOPLASTIN TIME 34.9 seconds 22.5-36.0 (HAYDEN) (test code = 760) LACTIC ACID, [id number] 14:25:00 Test Item Value Reference Range Interpretation Comments LACTATE BLOOD ARTERIAL (2) 1.8 mmol/L 0.5-2.2 (BEAKER) (test code = 2874) Truck Bench Mechanic ID - IBAN FHEMOGLOBIN AND [id number] 14:10:00 Test Item Value Reference Range Interpretation Comments HEMOGLOBIN (BEAKER) (test code = 8.2 GM/DL 13.7-17.5 L 410) HEMATOCRIT (BEAKER) (test code = 25.7 % 40.1-51.0 L 411) Truck Bench Mechanic ID - JanBLOOD GAS, [id number] 14:04:00 Test Item Value Reference Range Interpretation [...] (BEAKER) (test code = 1819) 45.0 % [id number] 13:21:00 Test Item Value Reference Range Interpretation Comments MAGNESIUM (BEAKER) 2.2 mg/dL 1.6-2.6 Specimen slightly (test code = 627) hemolyzed Truck Bench Mechanic ID - KARL MBASIC METABOLIC [id number] 13:21:00 Test Item Value Reference Range Interpretation [...] S NOT APPLICABLE FOR DIALYSIS PATIEN TS. Truck Bench Mechanic ID - KARL ANTONY [id number] 13:07:00 Test Item Value Reference Range Interpretation Comments CULTURE A From Aerobic An d (BEAKER) (test Anaerobic Bot tles Same code = 1095) organism has be en isolated from cultures(s) of the same body site within 3 days. Repeat identification and susceptibility testing performed only after consultation wi th the clinical microb iology laboratory.Refe r to previous cultur e of* - Staphylococcus lugdunensis GRAM STAIN From aerobic and RESULT (BEAKER) anaerobic (test code = bottles: gram 1123) positive cocci in clusters Previously reported organism is no longer reported. Please contact the Microbiology Department for additional information.CBC W/PLT COUNT & AUTO [id number] 11:03:00 Test Item Value Reference Range Interpretation [...] 0-1 PERCENT (BEAKER) (test code = 2801) [id number] 11:03:00 Test Item Value Reference Range Interpretation Comments PARTIAL THROMBOPLASTIN TIME 147.2 seconds 22.5-36.0 H (BEAKER) (test code = 760) Urinalysis w/Microscopic + Reflex to [id number] 10:00:00 Test Item Value Reference Range Interpretation Comments Color, UA (test code = Yellow 5778-6) Clarity, UA (test code = Clear 5767-9) Specific [place], UA 1.024 1.001-1.035 (test code = 5811-5) pH, UA (test code = 5.5 5.0-8.0 5803-2) Protein, UA (test code = 20 mg/dL Negative A 64385-4) Glucose, UA (test code = Negative Negative 365) Ketones, UA (test code = Negative Negative 2514-8) Bilirubin, UA (test code Negative Negative = 86194-1) Blood, UA (test code = Trace Negative A 59508-3) Nitrite, UA (test code = Negative Negative 5802-4) Leukocytes, UA (test code Negative Negative = 5799-2) Urobilinogen, UA (test 4.0 mg/dL 0.2-1 H code = 44581-1) RBC, UA (test code = 5 /HPF 63898-1) WBC, UA (test code = 2 /HPF 5821-4) Bacteria, UA (test code = Occasional 71325-9) Mucus (test code = Occasional 8247-9) Hyaline Casts, UA (test 1 /LPF code = 12169-6) Specimen Source (test code = 2795) DMITRIY (test code = DMITRIY) Truck Bench Mechanic ID - [auto]Truck Bench Mechanic ID - tech Lab Interpretation (test Abnormal code = 35560-2) [facility] CenterURINALYSIS W/ REFLEX URINE [id number] 10:00:00 Test Item Value Reference Range Interpretation [...] = 514) SOURCE(BEAKER) (test code = 2795) Truck Bench Mechanic ID - [auto]Truck Bench Mechanic ID - techPOCT-GLUCOSE [id number] 09:32:00 Test Item Value Reference Range Interpretation Comments POC-GLUCOSE METER 181 mg/dL 70-110 H : TESTED A T [facility] 6720 (BEAKER) (test code = [facility] [place], 1538) [address]: Truck Bench Mechanic/Techni lars ID = [id number] for Co Genesis carson POCT-GLUCOSE [id number] 09:27:00 Test Item Value Reference Range Interpretation Comments POC-GLUCOSE METER 151 mg/dL 70-110 H : TESTED A T [facility] 6720 (BEAKER) (test code = [facility], 1538) [address]: Truck Bench Mechanic/Techni lars ID = [id number] for AR MILES, LAMIN BLOOD GAS, [id number] 05:53:00 Test Item Value Reference Range Interpretation [...] (BEAKER) (test code = 1819) 45.0 % [id number] 03:27:00 Test Item Value Reference Range Interpretation Comments PARTIAL THROMBOPLASTIN TIME 119.7 seconds 22.5-36.0 H (BEAKER) (test code = 760) [id number] 03:01:00 Test Item Value Reference Range Interpretation Comments MAGNESIUM (BEAKER) (test code = 2.4 mg/dL 1.6-2.6 627) Truck Bench Mechanic ID - LV LBASIC METABOLIC [id number] 03:01:00 Test Item Value Reference Range Interpretation [...] S NOT APPLICABLE FOR DIALYSIS PATIEN TS. Truck Bench Mechanic ID - PIAYA LCBC W/PLT COUNT & AUTO [id number] 02:53:00 Test Item Value Reference Range Interpretation [...] (BEAKER) (test code = 2801) BLOOD GAS, [id number] 02:45:00 Test Item Value Reference Range Interpretation [...] 60.0 % RAD, CHEST, 1 VIEW, NON [id number] 02:01:00Reason for exam:->sobShould this be performed at [...] Henley Verified Date/Time: 12/23/2019 02:01:11 BLOOD GAS, [id number] 01:19:00 Test Item Value Reference Range Interpretation [...] (test code = 1819) 21.0 % POCT-GLUCOSE [id number] 23:42:00 Test Item Value Reference Range Interpretation Comments POC-GLUCOSE METER 135 mg/dL 70-110 H : [facility] (BE[facility]ER[facility] (test code = [place], 1538) [address]: Truck Bench Mechanic/Techni lars ID = [id number] for Co bb, Genesis [id number] 18:51:00 Test Item Value Reference Range Interpretation Comments POTASSIUM (BEAKER) 4.1 meq/L 3.5-5.1 Specimen slightly (test code = 379) hemolyzed Truck Bench Mechanic ID - [id number] 18:44:00 Test Item Value Reference Range Interpretation Comments PARTIAL THROMBOPLASTIN TIME 50.0 seconds 22.5-36.0 H (BEAKER) (test code = 760) POCT-GLUCOSE [id number] 18:32:00 Test Item Value Reference Range Interpretation Comments POC-GLUCOSE METER 147 mg/dL 70-110 H : TESTED A T [facility] 6720 (HAYDEN) (test code = [place] [facility], 1538) [address]: Truck Bench Mechanic/Techni lars ID = [id number] for PE BECKICRISTIN RAD, ABDOMEN/KUB, 1 VIEW [id number] 16:39:00Reason for exam:->tube placementShould this be performed at the bedside?->YesFINAL REPORT Abdomen date 12/22/2019 Comment: Frontal view of the abdomen demo nstrates a nasogastric tube present with tip noted in the body of the stomach. Signed: Edilberto Gregoryeport Verified Date/Time: 12/22/2019 16:39:35 Reading Location: [address] Consult Reading Room XR abdomen / KUB 1 [id number] 16:39:00 Interface, External Ris In - 12/22/2019 4:41 PM CSTFINAL REPORT Abdomen date12/22/2019 Comment: Frontal view of the abdomen demonstrates a nasogastric tube present with tip noted in the body of the stomach. Signed: Edilberto Gregoryort Verified Date/Time: 12/22/2019 16:39:35 R eading Location: [facility] C013W Consult Reading Room Electronically signed by: EDILBERTO GREGORY M.D.on 12/22/2019 04:39 [facility] [id number] 12:48:00 Test Item Value Reference Range Interpretation Comments POC-GLUCOSE METER 141 mg/dL 70-110 H : TESTED A T [facility] 6720 (BEPARESH) (test code = [place], 1538) [address]: Truck Bench Mechanic/Techni lars ID = [id number] for AG LAWRENCE LOPEZESSA [id number] 12:34:00 Test Item Value Reference Range Interpretation Comments MAGNESIUM (BEAKER) 2.3 mg/dL 1.6-2.6 Specimen slightly (test code = 627) hemolyzed Truck Bench Mechanic ID - [id number] 12:34:00 Test Item Value Reference Range Interpretation Comments POTASSIUM (BEAKER) 3.6 meq/L 3.5-5.1 Specimen slightly (test code = 379) hemolyzed Truck Bench Mechanic ID - [id number] 12:24:00 Test Item Value Reference Range Interpretation Comments PARTIAL THROMBOPLASTIN TIME 45.8 seconds 22.5-36.0 H (BEAKER) (test code = 760) Protein, body [id number] 12:20:00 Test Item Value Reference Range Interpretation Comments Protein, Fluid (test 2.3 g/dL code = 2881-1) DMITRIY (test code = Absence of reference DMITRIY) range indicates that normals have not been defined.Assay performance has not been validated for this type of specimen. [facility] CenterB-TYPE NATRIURETIC FACTOR (BNP)2019-12-22 10:25:00 Test Item Value Reference Range Interpretation Comments B-TYPE NATRIURETIC PEPTIDE (BEAKER) 632 pg/mL 0-100 H (test code = 700) Truck Bench Mechanic ID - DBBLOOD GAS, [id number] 10:04:00 Test Item Value Reference Range Interpretation [...] (test code = 1819) 30.0 % BLOOD [id number] 10:03:00 Test Item Value Reference Range Interpretation [...] 1123) bottles: gram positive cocci in clusters Blood Culture Panel([employer])2019-12-22 10:00:00 Test Item Value Reference Interpretation Comments Range LISTERIA MONOCYTOGENES Not detected Not detected (test code = 98638-6) STAPHYLOCOCCUS (test Detected Not detected A Coagula se negative code = 86877-9) Staph specie s (CoNS)- methici llin susceptibleFirs t-li ne therapy: Cefazolin or Oxacillin (Oxacillin preferred if CN S involvement) Me cA NOT DETECTEDPossibl e contamination. The likelihood of pathogenicity i s increased if th e organism is observed in multiple blood cultures obtain ed from separate venipunctures.R efer ence Range: Not Detected STAPHYLOCOCCUS AUREUS Not detected Not detected (test code = 33734-7) Streptococcus (test Not detected Not detected code = 72475-3) STREPTOCOCCUS Not detected Not detected AGALACTIAE (GROUP B) (test code = 10211-6) STREPTOCOCCUS Not detected Not detected PNEUMONIAE (test code = 49361-1) Streptococcus pyogenes Not detected Not detected (Group A) (test code = 28751-5) ACINETOBACTER Not detected Not detected BAUMANNII (test code = 32221-2) HAEMOPHILUS INFLUENZAE Not detected Not detected (test code = 57823-1) NEISSERIA MENINGITIDIS Not detected Not detected (test code = 05432-8) ENTEROBACTERIACEAE (test code = 86426-4) ENTEROBACTER CLOACOE Not detected Not detected COMPLEX (test code = 21797-9) KLEBSIELLA OXYTOCA Not detected Not detected (test code = 77873-5) KLEBSIELLA PNEUMONIAE Not detected Not detected (test code = 66834-4) PROTEUS (test code = 98618-9) SERRATIA MARCESCENS Not detected Not detected (test code = 41319-8) JAMAL ALBICANS (test Not detected Not detected code = 87126-7) JAMAL GLABRATA (test Not detected Not detected code = 85279-3) JAMAL KRUSEI (test Not detected Not detected code = 32314-8) JAMAL PARAPSILOSIS Not detected Not detected (test code = 10852-0) JAMAL TROPICALIS Not detected Not detected (test code = 47982-8) ESCHERICHIA COLI (test Not detected Not detected code = 30549-2) METHICILLIN-RESISTANCE Not detected Not detected GENE (test code = 20993-4) VANCOMYCIN-RESISTANCE GENE (test code = 10317-5) CARBAPENEM-RESISTANCE GENE (test code = 83629-8) ENTEROCOCCUS (test Not detected Not detected code = 05025-6) PSEUDOMONAS AERUGINOSA Not detected Not detected (test code = 37889-0) DMITRIY (test code = DMITRIY) Other bacteria and resistance markers not targeted by this PCR panel cannot be excluded; therefore clinical correlation and follow up of serology, culture results, and other molecular studies is required. The results are not intended to be used as the sole means for clinical diagnosis or patient management decisions. This sample was tested at the [facility] Diagnostics Laboratory using the DestinationRXArray Blood Culture ID Panel. It is FDA cleared and has been verified and approved by the [facility] for clinical use. This laboratory is CLIA-certified and [employer] (CAP)-accredited to perform high complexity testing. Lab Interpretation Abnormal (test code = 79046-9) [facility] CenterBLOOD CULTURE IDENTIFICATION [id number] 10:00:00 Test Item Value Reference Interpretation Comments Range LISTERIA MONOCYTOGENES Not detected Not detected (test code = 5630240) STAPHYLOCOCCUS (test Detected Not detected A Coagula se negative code = 5988777) Staph specie s (CoNS)- methici llin susceptibleFirs t-seble e therapy: Cefa zolin or Oxacillin (Oxacillin pref erred if SIDE STITCHING MACHINE OPERATOR involvem ent) MecA NOT DETECTEDPossibl e contamination. The likelihood of pathogenicity i s increased if th e organism is obs erved in multiple blo od cultures obtain ed from separate venipunctures.R efere nce Range: Not Detected STAPHYLOCOCCUS AUREUS Not detected Not detected (test code = 3666153) STREPTOCOCCUS (test Not detected Not detected code = 2689841) STREPTOCOCCUS Not detected Not detected AGALACTIAE (GROUP B) (test code = 6648000) STREPTOCOCCUS Not detected Not detected PNEUMONIAE (test code = 7051293) STREPTOCOCCUS PYOGENES Not detected Not detected (GROUP A) (test code = 6081564) ACINETOBACTER BAUMANNII Not detected Not detected (test code = 3835355) HAEMOPHILUS INFLUENZAE Not detected Not detected (test code = 9178652) NEISSERIA MENINGITIDIS Not detected Not detected (test code = 8699507) ENTEROBACTERIACEAE (test code = 7588262) ENTEROBACTER CLOACOE Not detected Not detected COMPLEX (test code = 6958278) KLEBSIELLA OXYTOCA Not detected Not detected (test code = 9398961) KLEBSIELLA PNEUMONIAE Not detected Not detected (test code = 1650) PROTEUS (test code = 1016652) SERRATIA MARCESCENS Not detected Not detected (test code = 7251074) JAMAL ALBICANS (test Not detected Not detected code = 0110694) JAMAL GLABRATA (test Not detected Not detected code = 7999892) JAMAL KRUSEI (test Not detected Not detected code = 5768358) JAMAL PARAPSILOSIS Not detected Not detected (test code = 4158637) JAMAL TROPICALIS Not detected Not detected (test code = 2427583) ESCHERICHIA COLI (test Not detected Not detected code = 2110574) METHICILLIN-RESISTANCE Not detected Not detected GENE (test code = 0570054) VANCOMYCIN-RESISTANCE GENE (test code = 1861523) CARBAPENEM-RESISTANCE GENE (test code = 0198619) ENTEROCOCCUS-BEAKER Not detected Not detected (test code = 2265047) PSEUDOMONAS Not detected Not detected AERUGINOSA-BEAKER (test code = 2128096) Other bacteria and resistance markers not targeted by this PCR panel cannot be excluded; therefore clinical correlation and follow up of serology, culture results, and other molecular studies is required. The results are not intended to be used as the sole means for clinical diagnosis or patient management decisions. This sample was tested at the [facility]ostics Laboratory using the [employer] Blood Culture ID Panel. It is FDA cleared and has been verified and approved by the [facility] for clinical use. [...] ed only after consultat ion with the [facility] microbiology laboratory.Refe r to previous cultur e of* - Staphylococcus lugdunensis GRAM STAIN From aerobic and RESULT (BEAKER) anaerobic (test code = bottles: gram 1123) positive cocci in clusters RAD, CHEST, 1 VIEW, NON [id number] 08:26:00Reason for exam:->sobShould this be performed at the bedside?->YesFINAL REPORT RAD, CHEST, 1 VIEW, NON DEPT INDICATION: sob COMPARISON: Prior day's exam FINDINGS: Portable frontal view of the chest. IMPRESSION: Support Lines: Stable. Lungs and pleura: Unchanged airspace opacities. No pneumothorax.Heart and mediastinum: Stable contours. Stable pacer apparatus.Additional findings: None. Signed: JR Deana, Carlos Eduardo Holt Verified Date/Time: 12/22/2019 08:26:26 Reading Location: [facility] Radiology Reading Room APTT 2019-12-22 08:18:00 Test Item Value Reference Range Interpretation Comments PARTIAL THROMBOPLASTIN TIME 102.7 seconds 22.5-36.0 H (BEAKER) (test code = 760) HEMOGLOBIN AND [id number] 08:01:00 Test Item Value Reference Range Interpretation Comments HEMOGLOBIN (BEAKER) (test code = 7.8 GM/DL 13.7-17.5 L 410) HEMATOCRIT (BEAKER) (test code = 24.5 % 40.1-51.0 L 411) Truck Bench Mechanic ID - [id number] 06:31:00 Test Item Value Reference Range Interpretation Comments PARTIAL THROMBOPLASTIN TIME 95.3 seconds 22.5-36.0 H (BEAKER) (test code = 760) POCT-GLUCOSE [id number] 06:22:00 Test Item Value Reference Range Interpretation Comments POC-GLUCOSE METER 144 mg/dL 70-110 H : TESTED A T [facility] 6720 (BEAKER) (test code = [place], 1538) [address]: Truck Bench Mechanic/Techni lars ID = [id number] for [employer] casron [id number] 06:06:00 Test Item Value Reference Range Interpretation Comments MAGNESIUM (BEAKER) 2.2 mg/dL 1.6-2.6 Specimen slightly (test code = 627) hemolyzed Truck Bench Mechanic ID - ADAMARIS MBASIC METABOLIC [id number] 06:06:00 Test Item Value Reference Range Interpretation [...] S NOT APPLICABLE FOR DIALYSIS PATIEN TS. Truck Bench Mechanic ID - ADAMARIS MCBC W/PLT COUNT & AUTO [id number] 04:09:00 Test Item Value Reference Range Interpretation [...] 0-1 H PERCENT (BEAKER) (test code = 2807) POCT-GLUCOSE [id number] 00:13:00 Test Item Value Reference Range Interpretation Comments POC-GLUCOSE METER 122 mg/dL 70-110 H : TESTED A T [facility] 6720 (BEAKER) (test code = [place], 1538) [address]: Truck Bench Mechanic/Techni lars ID = [id number] for Co [employer] carson [id number] 23:33:00 Test Item Value Reference Range Interpretation Comments PARTIAL THROMBOPLASTIN TIME 68.4 seconds 22.5-36.0 H (BEAKER) (test code = 760) U/S, [id number] 19:46:00Laterality?->LeftReason for exam:- >Diagnostic samplingLabs to be Ordered:->Body Fluid Culture (w/Gram Stain, C\\T\\S)Body fluid cell countLabs to be Ordered:->Glucose+LDH+ProteinLabs to be Ordered:->Other (please add comment)Labs to be Ordered:->Fungal Culture FINAL REPORT Exam: Ultrasound guided thoracentesis Clinical History: Left-sided Pleural Effusion Aviation Survival Technician: Cassidy Parra PA-C Supervising Physician: Luis Miguel [...] MDReport Verified Date/Time: 12/21/2019 19:46:02 Reading Location: [address] Ultrasound Reading Room BODY FLUID CELL COUNT WITH [id number] 19:01:00 Test Item Value Reference Range Interpretation Comments APPEARANCE FLUID (BEAKER) Bloody Clear A (test code = 510) COLOR FLUID (BEAKER) (test Red Colorless, Straw A code = 511) RBC FLUID (BEAKER) (test code 203006 /cu mm <=1 H = 513) ADJUSTED [...] (BEAKER) EDTA Tube (test code = 2873) PT/[id number] 17:13:00 Test Item Value Reference Range Interpretation [...] mechanical heart valves.RAD, CHEST, 1 VIEW, NON [id number] 16:16:00Reason for exam:->post left sided thoracentesisShould this [...] MDReport Verified Date/Time: 12/21/2019 16:16:44 Reading Location: [facility] Radiology Reading Room Anaerobic [id number] 16:14:00 Test Item Value Reference Range Interpretation Comments Result (test code = No anaerobes isolated 6463-4) [facility] [id number] 16:14:00 Test Item Value Reference Range Interpretation Comments CULTURE (BEAKER) (test No anaerobes isolated code = 1095) Prothrombin time/[id number] 12:46:00 Test Item Value Reference Range Interpretation Comments Protime (test code = 16.3 11.9- 14.2 H 5902-2) seconds INR (test code = 1.3 <=5.9 6301-6) DMITRIY (test code = DMITRIY) Effective 03/24/2019: PT Reference Range ChangeNew: 11.9-14.2 Previous: 11.7-14.7 RECOMMENDED COUMADIN/WARFARIN INR THERAPY RANGESSTANDARD DOSE: 2.0-3.0 Includes: PROPHYLAXIS for venous thrombosis, systemic embolization; TREATMENT for venous thrombosis and/or pulmonary embolus.HIGH RISK: Target INR is 2.5-3.5 for patients wiht mechanical heart valves. Lab Interpretation Abnormal (test code = 01626-5) [facility] CenterPROTHROMBIN TIME/[id number] 12:46:00 Test Item Value Reference Range Interpretation [...] is2.5-3.5 for patients wiht mechanical heart valves.POCT-GLUCOSE [id number] 12:38:00 Test Item Value Reference Range Interpretation Comments POC-GLUCOSE METER 138 mg/dL 70-110 H : TESTED A T [facility] 6720 (BEAKER) (test code = [place], 1538) [address]: Truck Bench Mechanic/Techni lars ID = [id number] for CAROL ANN OSEGUERA PT/[id number] 11:10:00 Test Item Value Reference Range Interpretation [...] mechanical heart valves.SURGICALLY OBTAINED CULTURE + GRAM [id number] 08:57:00 Test Item Value Reference Interpretation Comments Range CULTURE (BEAKER) STAPHYLOCOCCUS A 1+ Staphy lococcus (test code = 1095) RAULGDUNENSIS deepaunens is Clindamycin (test R code = 10) [...] (test code = cocci in pairs and 838986) clusters CREATINE KINASE (CK)2019-12-21 05:56:00 Test Item Value Reference Range Interpretation Comments CREATINE KINASE TOTAL (BEAKER) (test 18 U/L 29-200 L code = 380) Truck Bench Mechanic ID - ADAMARIS [id number] 05:43:00 Test Item Value Reference Range Interpretation Comments MAGNESIUM (BEAKER) 2.3 mg/dL 1.6-2.6 Specimen slightly (test code = 627) hemolyzed Truck Bench Mechanic ID - ADAMARIS MBASIC METABOLIC [id number] 05:43:00 Test Item Value Reference Range Interpretation [...] S NOT APPLICABLE FOR DIALYSIS PATIEN TS. Truck Bench Mechanic ID - ADAMARIS MCBC W/PLT COUNT & AUTO [id number] 05:17:00 Test Item Value Reference Range Interpretation [...] H PERCENT (BEAKER) (test code = 2801) [id number] 05:16:00 Test Item Value Reference Range Interpretation Comments PARTIAL THROMBOPLASTIN TIME 63.0 seconds 22.5-36.0 H (BEAKER) (test code = 760) POCT-GLUCOSE [id number] 23:39:00 Test Item Value Reference Range Interpretation Comments POC-GLUCOSE METER 162 mg/dL 70-110 H : [facility] ([facility]ER) (test [facility] = [facility], 1538) [address]: Truck Bench Mechanic/Techni lars ID = [id number] for MICHELLE MATHIS BLOOD GAS, [id number] 21:17:00 Test Item Value Reference Range Interpretation [...] (test code = 1819) 21.0 % POCT-GLUCOSE [id number] 18:36:00 Test Item Value Reference Range Interpretation Comments POC-GLUCOSE METER 149 mg/dL 70-110 H : TESTED A T [facility] 6720 (BEAKER) (test code = [facility], 1538) [address]: Truck Bench Mechanic/Techni lars ID = [id number] for AG UILAR CAROL ANN [id number] 17:13:00 Test Item Value Reference Range Interpretation Comments PARTIAL THROMBOPLASTIN TIME 72.8 seconds 22.5-36.0 H (BEAKER) (test code = 760) POCT-GLUCOSE [id number] 12:29:00 Test Item Value Reference Range Interpretation Comments POC-GLUCOSE METER 179 mg/dL 70-110 H : TESTED A T [facility] 6720 (BEAKER) (test code = [facility], 1538) [address]: Truck Bench Mechanic/Techni lars ID = [id number] for AG UILAR CAROL ANN [id number] 11:15:00 Test Item Value Reference Range Interpretation Comments PARTIAL THROMBOPLASTIN TIME 76.4 seconds 22.5-36.0 H (BEAKER) (test code = 760) BLOOD GAS, [id number] 10:14:00 Test Item Value Reference Range Interpretation [...] (test code = 1819) 21.0 % BLOOD [id number] 09:49:00 Test Item Value Reference Range Interpretation [...] gram 1123) positive cocci in clusters BLOOD [id number] 09:49:00 Test Item Value Reference Range Interpretation [...] gram 1123) positive cocci in clusters POCT-GLUCOSE [id number] 06:19:00 Test Item Value Reference Range Interpretation Comments POC-GLUCOSE METER 202 mg/dL 70-110 H : TESTED A T [facility] 6720 [facility] (test code = [place] Fields [facility], 1538) [address]: Truck Bench Mechanic/Techni lars ID = [id number] for AL I, JOSEPHINE [id number] 04:33:00 Test Item Value Reference Range Interpretation Comments PARTIAL THROMBOPLASTIN TIME 53.7 seconds 22.5-36.0 H (BEAKER) (test code = 760) [id number] 04:27:00 Test Item Value Reference Range Interpretation Comments MAGNESIUM (BEAKER) (test code = 2.2 mg/dL 1.6-2.6 627) Truck Bench Mechanic ID - TRAN WBASIC METABOLIC [id number] 04:27:00 Test Item Value Reference Range Interpretation [...] S NOT APPLICABLE FOR DIALYSIS PATIEN TS. Truck Bench Mechanic ID - TRAN WCBC W/PLT COUNT & AUTO [id number] 04:18:00 Test Item Value Reference Range Interpretation [...] PERCENT (BEAKER) (test code = 2801) POCT-GLUCOSE [id number] 23:24:00 Test Item Value Reference Range Interpretation Comments POC-GLUCOSE METER 160 mg/dL 70-110 H : TESTED A T [facility] 6720 (BEAKER) (test code = [place], 1538) [address]: Truck Bench Mechanic/Techni lars ID = [id number] for AL JOSEPHINE Max [id number] 21:10:00 Test Item Value Reference Range Interpretation Comments PARTIAL THROMBOPLASTIN TIME 70.0 seconds 22.5-36.0 H (BEAKER) (test code = 760) [id number] 13:55:00 Test Item Value Reference Range Interpretation Comments PARTIAL THROMBOPLASTIN TIME 70.0 seconds 22.5-36.0 H (BEAKER) (test code = 760) POCT-GLUCOSE [id number] 12:13:00 Test Item Value Reference Range Interpretation Comments POC-GLUCOSE METER 165 mg/dL 70-110 H : TESTED A T [facility] 6720 (BEAKER) (test code [facility], = 1538) [address]: Truck Bench Mechanic/Techni lars ID = [id number] for FAHAD SILVA RAD, CHEST, 1 VIEW, NON [id number] 11:54:00Reason for exam:- >tachypneaShould this be performed at the bedside?->YesFINAL REPORT RAD, CHEST, 1 VIEW, NON DEPT INDICATION: tachypnea COMPARISON: December 17, 2019 FINDINGS: Portable frontal view of the chest. IMPRESSION: Support Lines: Pacer device. Lungs and pleura: Left basilar atelectasis and retrocardiac airspace disease No pneumothorax.Heart and mediastinum: Stable contours. Additional findings: None. Signed: Madeline Casas Verified Date/Time: 12/19/2019 11:54:30 Reading Location: [address] Neuro Reading Room BLOOD [id number] 11:04:00 Test Item Value Reference Range Interpretation [...] gram 1123) positive cocci in clusters BLOOD [id number] 11:02:00 Test Item Value Reference Range Interpretation [...] bottles: gram 1123) positive cocci in clusters [id number] 07:08:00 Test Item Value Reference Range Interpretation Comments MAGNESIUM (BEAKER) 2.2 mg/dL 1.6-2.6 Specimen slightly (test code = 627) hemolyzed Truck Bench Mechanic ID - DBBASIC METABOLIC [id number] 07:08:00 Test Item Value Reference Range Interpretation [...] S NOT APPLICABLE FOR DIALYSIS PATIEN TS. Truck Bench Mechanic ID - [id number] 06:41:00 Test Item Value Reference Range Interpretation Comments PARTIAL THROMBOPLASTIN TIME 63.5 seconds 22.5-36.0 H (BEAKER) (test code = 760) CBC W/PLT COUNT & AUTO [id number] 05:29:00 Test Item Value Reference Range Interpretation [...] H PERCENT (BEAKER) (test code = 2801) [id number] 00:50:00 Test Item Value Reference Range Interpretation Comments PARTIAL THROMBOPLASTIN TIME 57.8 seconds 22.5-36.0 H (BEAKER) (test code = 760) [id number] 18:03:00 Test Item Value Reference Range Interpretation Comments MAGNESIUM (BEAKER) 2.1 mg/dL 1.6-2.6 Specimen slightly (test code = 627) hemolyzed Truck Bench Mechanic ID - [id number] 18:03:00 Test Item Value Reference Range Interpretation Comments POTASSIUM (BEAKER) 3.9 meq/L 3.5-5.1 Specimen slightly (test code = 379) hemolyzed Truck Bench Mechanic ID - [id number] 17:58:00 Test Item Value Reference Range Interpretation Comments PARTIAL THROMBOPLASTIN TIME 50.8 seconds 22.5-36.0 H (BEAKER) (test code = 760) Hemoglobin [id number] 12:53:00 Test Item Value Reference Range Interpretation Comments Hemoglobin A1C (test code = 4548-4) 5.4 % 4.3-6.1 Lab Interpretation (test code = Normal 74348-6) [facility] CenterHEMOGLOBIN [id number] 12:53:00 Test Item Value Reference Range Interpretation Comments HEMOGLOBIN A1C (BEAKER) (test code = 5.4 % 4.3-6.1 368) [id number] 12:00:00 Test Item Value Reference Range Interpretation Comments POTASSIUM (BEAKER) (test code = 3.1 meq/L 3.5-5.1 L 379) Truck Bench Mechanic ID - IBAN [id number] 12:00:00 Test Item Value Reference Range Interpretation Comments MAGNESIUM (BEAKER) (test code = 2.3 mg/dL 1.6-2.6 627) Truck Bench Mechanic ID - IBAN FBLOOD [id number] 11:19:00 Test Item Value Reference Range Interpretation Comments CULTURE A From Aerobic An d (BEAKER) (test Anaerobic Bot tles Same code = 1095) organism has be en isolated from cultures(s) of the same body site and collection date . Repeat identifi cation and susceptibil ity testing perform ed only after consultat ion with the [facility] microbiology laboratory.Refe r to previous cultur e of* - Staphylococcus lugdunensis GRAM STAIN From aerobic and RESULT (BEAKER) anaerobic (test code = bottles: gram 1123) positive cocci in clusters BLOOD [id number] 11:17:00 Test Item Value Reference Interpretation Comments [...] 13) GRAM STAIN RESULT From aerobic and (NICOLEAKER) (test code = anaerobic bottles: 1123) gram positive cocci in clusters [id number] 10:51:00 Test Item Value Reference Range Interpretation Comments PARTIAL THROMBOPLASTIN TIME 32.0 seconds 22.5-36.0 (BEAKER) (test code = 760) Prior to initiating heparinVenous doppler arm, [id number] 08:45:05Ejection FractionSLEH ECHO HEARTLAB MKCKESSON CPACS Left Impression1. There is total echolucent deepvenous obstruction in the jugular vein.2. There is no deep venous obstruction in the subclavian, axillary, brachialor radial veins where visualized.3. The ulnar veins are not visualized.4. There is total echolucent superficial venous obstruction in the cephalicvein.5. The superficial basilic vein is not visualized. Conclusions Summary Venous duplex imaging and compression of the left upper extremity was performed. The veins were difficult to visualize due to edema and patient left arm movement. The left deep venous system was positive with acute thrombosis. The left superficial venous system waspositive with acute thrombus. Signature --- Velocities are measured in cm/s ; Diameters are measured in cm Interface, External Ris In - 12/18/2019 8:45 AM CSTPV LAB - Upper Extremities Veins Demographics Patient Name RENE CHAMBERLAIN Date of Study 12/17/2019 Age 74 Visit Number [id number] Gender Male Accession Number [id number] Date of 1945 Referring Peter Montenegro Room Number 6107 Physician LAMONTE Equipment Superintendent Ana Lilia Gregory Interpreting Melony Dyer T Physician ProcedureType of Study: Veins: Upper Extremities Veins, VENOUS DOPPLER ARM, LEFT. Indications for Study:Swelling.Patient Status:OLGA.Study Location:Portable.Technical Quality:Technically Difficult. - Results were reported to:LIZ Veras @ 20:10.Risk FactorsHistory of Disease+ + + +!Diagnosis !Date !Comments !+ + + +!H istory/Risk Factors: !12/17/2019!Left upper arm swelling !! ! !Left chest AICD !+ + + +ImpressionsLeft Impression1. There is total echolucent deep venous obstruction in the jugular vein.2. There is no deep venous obstruction in the subclavian, axillary, brachialorradial veins where visualized.3. The ulnar veins are not visualized.4. There is total echolucent superficial venous obstruction in the cephalicvein.5. The superficial basilic vein is not visualized. Conclusions Summary Venous duplex imaging and compression of the left upper extremity was performed. The veins were difficult to visualize due to edema and patient left arm movement. The left deep venous system was positive with acute thrombosis. The left superficial venous system was positive with acute thrombus. Signature Velocities are measured in cm/s ; Diameters are measuredin [facility] W/PLT COUNT & AUTO [id number] 05:41:00 Test Item Value Reference Range Interpretation [...] H PERCENT (BEAKER) (test code = 2801) [id number] 05:03:00 Test Item Value Reference Range Interpretation Comments MAGNESIUM (BEAKER) 2.1 mg/dL 1.6-2.6 Specimen slightly (test code = 627) hemolyzed Truck Bench Mechanic ID - ADAMARIS MBASIC METABOLIC [id number] 05:03:00 Test Item Value Reference Range Interpretation [...] S NOT APPLICABLE FOR DIALYSIS PATIEN TS. Truck Bench Mechanic ID - ADAMARIS MVancomycin level, [id number] 19:14:00 Test Item Value Reference Range Interpretation Comments Vancomycin Tr (test code = 4092-3) 10.8 ug/mL 10-20 Lab Interpretation (test code = Normal 22702-7) [facility] CenterVANCOMYCIN LEVEL, [id number] 19:14:00 Test Item Value Reference Range Interpretation Comments VANCOMYCIN TROUGH (BEAKER) (test 10.8 ug/mL 10.0-20.0 code = 522) CT, CHEST, WITHOUT [id number] 13:42:00FINAL REPORT CT of the Chest, abdomen [...] Date/Time: 12/17/2019 13:42:11 Reading Location: [facility] C0[facility] CT Body Reading Room CT, [id number] 13:42:00FINAL REPORT CT of the Chest, abdomen [...] Date/Time: 12/17/2019 13:42:11 Reading Location: [facility] C013Y CT Body Reading Room CT abdomen/pelvis without iv [id number] 13:42:00Interface, External Ris In - 12/17/2019 2:[address] of the Chest, abdomen and [...] technique. Heart is enlarged. There is small pericardialeffusion. Atherosclerotic calcification is seen in the thoracic aorta and coronary arteries. Great vessels are unremarkable. No adenopathy in the mediastinum or perihilar region. Trachea and mainstem bronchi are patent. Moderate left pleural effusion is present with left lower lobe compressive atelectasis. Subsegmental atelectasis is seen in the right lung base. The rest of the lungs are clear. No nodular, mass lesion, or airspace disease is seen. Liver and spleen are normal in size. No focal lesion is seen in the liver or the spleen. Gallbladder is distended. No gallstone or biliary dilatation isnoted. Pancreas and adrenals are unremarkable. Both kidneys are normal in size. Several stones are seen in the left kidney measuring up to 4 mm in size. A 2 mm stone is seen in the midpole right kidney. No hydronephrosis or hydroureter is present. A 1 cm hemorrhagic cyst is seen in the midpole left kid javed. A 2.5 cm hemorrhagic cyst is seen in the inferior pole left kidney. Diverticular disease is seen in the large bowel without diverticulitis. Small bowel and appendix are normal in caliber. Prostateis normal in size. The urinary bladder is contracted. Atherosclerotic calcifications is seen in the abdominal aorta, spleen mesenteric, right renal, and bilateral iliac arteries. Impression: 1. Cardiomegaly with small pericardial effusion.2. Left pleural effusion with left lower lobe compressive atelectasis.3. No pneumonia.4. Left hemorrhagic renal cysts and nonobstructive bilateral renal stones.5. Diverticulosis without diverticulitis. 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 Difficult to assess segmental wall motion; overall LV systolic function appears at least moderately reduced based on available views. A trivial circumferential pericardial effusion is present . Signature Findings Left Ventricle The left ventricle is chamber size (by PSLAX dimension) is normal (male - LVIDd 4.2-5.8cm) . Mild concentric LV hypertrophy. Difficult to assess segmental wall motion; overall LV systolic function appears atleast moderately reduced based on available views. Left Atrium LAsize is mildly enlarged (35-41 ml/m2) . Right Ventricle RV chamber size is moderately enlarged . Global RV systolic function is depressed . Right Atrium RA size is dilated. Aortic Valve Mild AoV cusp thickening. Mitral Valve Mild MV leafle t thickening. Tricuspid Valve Unable to estimate peak systolic PA pressure; inadequate TR velocity signal. Pulmonic Valve PV is not well visualized. Aorta Aortic root size (SInus of Valsalva diameter) is normal . Pericardium A trivial circumferential pericardial effusion is present . IV C/SVC/PA/PV/Pleural A left pleural effusion is noted. Chambers/Structures Left Atrium LA Dimension: 3.95 cm LA Area: 29.49 cm^2 LA Volume: 98.04 ml LA Vol. Index: 41 ml/m^2 Left Ventricle LVIDd: 4.82 cm LV Septum Diastolic: 1.34 cm LV PW Diastolic: 1.29 cm Aorta Ao Root S of Mary.: 3.93 [facility] [id number] 11:48:00FINAL REPORT CT, BRAIN, WITHOUT CONTRAST CLINICAL [...] disease. ET tube and nasogastric tube IMPRESSION: N o acute intracranial findings If there is persistent clinical concern for intracranial pathology, MRexamination is recommended for further characterization. Signed: Madeline Casas Verified Date/Time: 12/17/2019 11:48:34 Reading Location: [address] Neuro Reading Room [facility] brain without IV [id number] 11:48:00Interface, External Ris In - 12/17/2019 11:[address], BRAIN, WITHOUT CONTRAST CLINICAL INDICATION: ams COMPARISON: None TECHNIQUE: Noncontrast axial CT imaging of the brain and skull. DOSE REDUCTION: Dose modulation, iterative reconstruction, and/or weight-based adjustment of the mA/kV was utilized to reduce the radiation dose to as low as reasonably achievable. FINDINGS:No intracranial hemorrhage, midline shift or mass effect. Midline structures are normallydeveloped. Mild chronic microvascular ischemic changes of the periventricular and subcortical white matter are present. No hydrocephalus. Orbits are within normal limits. No obstructive paranasal sinusdisease. ET tube and nasogastric tube IMPRESSION: No acute intracranial findings If there is persistent clinical concern for intracranial pathology, MR examination is recommended for further characterization. Signed: Madeline Casas Verified Date/Time: 12/17/2019 11:48:34 Reading Location: [facility] C013 Neuro Reading Room 11:48 [facility], NON DEPT 2019-12-17 10:42:00Reason for exam:->intubationFINAL REPORT CLINICAL HISTORY: intubation TECHNIQUE: 1 view of the chest. COMP ARISON: 12/16/2019 IMPRESSION: An ETT and NGT appear unchanged. Left lung base pleural-parenchymal opacification is unchanged. The cardiomediastinal silhouette is magnified by technique with a pacemaker. Signed: Gil Pastor MDReport Verified Date/Time: 12/17/2019 10:42:15 Reading Location: [facility] Radiology Reading Room Urine [id number] 10:21:00 Test Item Value Reference Range Interpretation Comments Result (test code = 6463-4) No growth [facility] CenterURINE [id number] 10:21:00 Test Item Value Reference Range Interpretation Comments CULTURE (BEAKER) (test code = 1095) No growth [id number] 04:42:00 Test Item Value Reference Range Interpretation Comments Ferritin (test code = 4442 ng/mL 5-275 H 2276-4) DMITRIY (test code = DMITRIY) Truck Bench Mechanic ID - ADAMARIS M Lab Interpretation (test Abnormal code = 88847-4) [facility] CenterFERRITIN2020-02-21 04:42:00 Test Item Value Reference Range Interpretation Comments FERRITIN (BEAKER) (test code = 4442 ng/mL 5-275 H 361) Truck Bench Mechanic ID - ADAMARIS MTSH/Free T4 If [id number] 04:41:00 Test Item Value Reference Range Interpretation Comments TSH (test code = 68142-5) 0.72 0.35- 4.94 uIU/mL DMITRIY (test code = DMITRIY) Truck Bench Mechanic ID - ADAMARIS M Lab Interpretation (test Normal code = 85107-8) [facility] CenterVitamin B12 and [id number] 04:41:00 Test Item Value Reference Range Interpretation Comments Vitamin B12 (test code = 767 pg/mL 124-503 7807-9) Folate (test code = 5.1 ng/mL >=7.0 L 2284-8) DMITRIY (test code = DMITRIY) Truck Bench Mechanic ID - ADAMARIS M Lab Interpretation (test Abnormal code = 62472-8) [facility] CenterTSH/FREE T4 IF [id number] 04:41:00 Test Item Value Reference Range Interpretation Comments THYROID STIMULATING HORMONE 0.72 uIU/mL 0.35-4.94 (BEAKER) (test code = 772) Truck Bench Mechanic ID Jorge BAILON MVITAMIN B12 AND [id number] 04:41:00 Test Item Value Reference Range Interpretation Comments VITAMIN B12 (BEAKER) (test code = 767 pg/mL 213-816 774) FOLATE (BEAKER) (test code = 362) 5.1 ng/mL >=7.0 L Truck Bench Mechanic ID - ADAMARIS Jamie, TIBC, % sat. (without ferritin)2019-12-17 03:47:00 Test Item Value Reference Range Interpretation Comments Iron (test code = 2498-4) 21.0 ug/dL 40-160 L TIBC (test code = 2500-7) 115 ug/dL 250-450 L Iron % Saturation (test 18 % 20-55 L code = 2502-3) DMITRIY (test code = DMITRIY) Truck Bench Mechanic ID Jorge BAILON M Lab Interpretation (test Abnormal code = 01825-0) [facility], TIBC, % SAT. (WITHOUT FERRITIN)2019-12-17 03:47:00 Test Item Value Reference Range Interpretation Comments IRON (BEAKER) (test code = 547) 21.0 ug/dL 40.0-160.0 L TOTAL IRON BINDING CAPACITY 115 ug/dL 250-450 L (BEAKER) (test code = 769) IRON % SATURATION (2) (BEAKER) 18 % 20-55 L (test code = 2590) Truck Bench Mechanic ID - ADAMARIS [id number] 03:46:00 Test Item Value Reference Range Interpretation Comments MAGNESIUM (BEAKER) (test code = 2.1 mg/dL 1.6-2.6 627) Truck Bench Mechanic ID - ADAMARIS MBASIC METABOLIC [id number] 03:46:00 Test Item Value Reference Range Interpretation [...] S NOT APPLICABLE FOR DIALYSIS PATIEN TS. Truck Bench Mechanic ID - ADAMARIS EPATIC FUNCTION [id number] 03:46:00 Test Item Value Reference Range Interpretation [...] (test code = 15 U/L 6-55 347) Truck Bench Mechanic ID - ADAMARIS MCBC W/PLT COUNT & AUTO [id number] 03:46:00 Test Item Value Reference Range Interpretation [...] PERCENT (BEAKER) (test code = 2801) PROTHROMBIN [id number] 03:35:00 Test Item Value Reference Range Interpretation [...] INR is2.5-3.5 for patients wiht mechanical heart valves.Lactic acid, [id number] 03:28:00 Test Item Value Reference Range Interpretation Comments Lactate, Venous (test 1.1 mmol/L 0.5-2.2 Specim en code = 2872) slightly hemolyzed DMITRIY (test code = DMITRIY) Truck Bench Mechanic ID - ADAMARIS M Lab Interpretation Normal (test code = 38248-9) [facility] [id number] 03:28:00 Test Item Value Reference Range Interpretation Comments LACTATE BLOOD VENOUS 1.1 mmol/L 0.5-2.2 Specime n slightly (2) (BEAKER) (test hemolyzed code = 2872) Truck Bench Mechanic ID - ADAMARIS MReticulocyte [id number] 03:21:00 Test Item Value Reference Range Interpretation Comments % Retic (test code = 2.1 % 0.5-1.8 H 19341-2) DMITRIY (test code = DMITRIY) Truck Bench Mechanic ID - [id number] Lab Interpretation (test Abnormal code = 99298-8) [facility]RETICULOCYTE [id number] 03:21:00 Test Item Value Reference Range Interpretation Comments RETICULOCYTE COUNT PCT (BEAKER) (test 2.1 % 0.5-1.8 H code = 575) Truck Bench Mechanic ID - 6000BLOOD GAS, [id number] 03:16:00 Test Item Value Reference Range Interpretation [...] 21-29 = 388) BASE EXCESS ARTERIAL (BEAKER) 3.6 mmol/L -2.0-3.0 H (test code = 387) PATIENT TEMPERATURE (BEAKER) (test 38.0 C code = 1818) FIO2 (BEAKER) (test code = 1819) 50.0 % [id number] 00:42:00 Test Item Value Reference Range Interpretation Comments CORTISOL, TOTAL (BEAKER) (test 16.3 ug/dL 3.7-19.4 code = 2755) Truck Bench Mechanic ID - BSVANCOMYCIN LEVEL, [id number] 21:12:00 Test Item Value Reference Range Interpretation Comments VANCOMYCIN TROUGH (BEAKER) (test 6.1 ug/mL 10.0-20.0 L code = 522) Truck Bench Mechanic ID - [id number] 21:11:00 Test Item Value Reference Range Interpretation Comments MAGNESIUM (BEAKER) 1.7 mg/dL 1.6-2.6 Specimen slightly (test code = 627) hemolyzed Truck Bench Mechanic ID - BSBASIC METABOLIC [id number] 21:11:00 Test Item Value Reference Range Interpretation [...] S NOT APPLICABLE FOR DIALYSIS PATIEN TS. Truck Bench Mechanic ID - BSPOCT-GLUCOSE [id number] 18:34:00 Test Item Value Reference Range Interpretation Comments POC-GLUCOSE METER 95 mg/dL 70-110 : TESTED A T [facility] 6720 (BEAKER) (test code = [place], 1538) [address]: Truck Bench Mechanic/Techni lars ID = [id number] for AKIKO LAR, CAROL ANN RAD, CHEST, 1 VIEW, NON [id number] 15:48:00Reason for exam:->ett placementShould this be performed [...] MDReport Verified Date/Time: 12/16/2019 15:48:48 Reading Location: [facility] Radiology Reading Room BLOOD CULTURE IDENTIFICATION [id number] 15:32:00 Test Item Value Reference Interpretation Comments Range LISTERIA MONOCYTOGENES Not detected Not detected (test code = 20160729) STAPHYLOCOCCUS (test Detected Not detected A Coagula se negative code = 20161001) Staph specie s (CoNS)- methici llin susceptibleFirs t-seble e therapy: Cefa zolin or Oxacillin (Oxacillin pref erred if SIDE STITCHING MACHINE OPERATOR involvem ent) MecA NOT DETECTEDPossibl e contamination. The likelihood of pathogenicity i s increased if th e organism is obs erved in multiple blo od cultures obtain ed from separate venipunctures.R efere nce Range: Not Detected STAPHYLOCOCCUS AUREUS Not detected Not detected (test code = 0440227) STREPTOCOCCUS (test Not detected Not detected code = 8879909) STREPTOCOCCUS Not detected Not detected AGALACTIAE (GROUP B) (test code = 5358667) STREPTOCOCCUS Not detected Not detected PNEUMONIAE (test code = 8159478) STREPTOCOCCUS PYOGENES Not detected Not detected (GROUP A) (test code = 6625765) ACINETOBACTER BAUMANNII Not detected Not detected (test code = 8119261) HAEMOPHILUS INFLUENZAE Not detected Not detected (test code = 6263805) NEISSERIA MENINGITIDIS Not detected Not detected (test code = 1160204) ENTEROBACTERIACEAE Not detected Not detected (test code = 2263180) ENTEROBACTER CLOACOE Not detected Not detected COMPLEX (test code = 6501748) KLEBSIELLA OXYTOCA Not detected Not detected (test code = 6066169) KLEBSIELLA PNEUMONIAE Not detected Not detected (test code = 1650) PROTEUS (test code = Not detected Not detected 0293467) SERRATIA MARCESCENS Not detected Not detected (test code = 3897072) JAMAL ALBICANS (test Not detected Not detected code = 7362473) JAMAL GLABRATA (test Not detected Not detected code = 0884718) JAMAL KRUSEI (test Not detected Not detected code = 0586771) JAMAL PARAPSILOSIS Not detected Not detected (test code = 7405640) JAMAL TROPICALIS Not detected Not detected (test code = 8717301) ESCHERICHIA COLI (test Not detected Not detected code = 3966448) METHICILLIN-RESISTANCE Not detected Not detected GENE (test code = 7968153) VANCOMYCIN-RESISTANCE GENE (test code = 9009611) CARBAPENEM-RESISTANCE Not detected Not detected GENE (test code = 0969286) ENTEROCOCCUS-BEAKER Not detected Not detected (test code = 6879859) PSEUDOMONAS Not detected Not detected AERUGINOSA-BEAKER (test code = 4463145) Other bacteria and resistance markers not targeted by this PCR panel cannot be excluded; therefore clinical correlation and follow up of serology, culture results, and other molecular studies is required. The results are not intended to be used as the sole means for clinical diagnosis or patient management decisions. This sample was tested at the [facility] using the [employer] Blood Culture ID Panel. It is FDA cleared and has been verified and approved by the [facility] for clinical use. This laboratory is CLIA-certified and College ofAmerican Pathologists (CAP)-accredited to perform high complexity testing.PHOSPHORUS 2019-12-16 15:18:00 Test Item Value Reference Range Interpretation Comments PHOSPHORUS (BEAKER) (test code = 4.2 mg/dL 2.3-4.7 604) Truck Bench Mechanic ID - BSCOMPREHENSIVE METABOLIC [id number] 15:18:00 Test Item Value Reference Range Interpretation [...] S NOT APPLICABLE FOR DIALYSIS PATIEN TS. Truck Bench Mechanic ID - [id number] 15:09:00 Test Item Value Reference Range Interpretation Comments Ammonia (test code = 30 18- 72 mol/L 51748-0) DMITRIY (test code = DMITRIY) Truck Bench Mechanic ID - BS Lab Interpretation (test Normal code = 66367-3) [facility] 15:09:00 Test Item Value Reference Range Interpretation Comments AMMONIA (BEAKER) (test code = 348) 30 mol/L 18-72 Truck Bench Mechanic ID - BSPT/[id number] 14:58:00 Test Item Value Reference Range Interpretation [...] INR is2.5-3.5 for patients wiht mechanical heart valves.[id number] 14:53:00 Test Item Value Reference Range Interpretation Comments MAGNESIUM (BEAKER) (test code = 1.6 mg/dL 1.6-2.6 627) Truck Bench Mechanic ID - BSLACTIC ACID, [id number] 14:46:00 Test Item Value Reference Range Interpretation Comments LACTATE BLOOD ARTERIAL (2) 1.1 mmol/L 0.5-2.2 (BEAKER) (test code = 2874) Truck Bench Mechanic ID - BSPROTHROMBIN TIME/[id number] 14:44:00 Test Item Value Reference Range Interpretation [...] INR is2.5-3.5 for patients wiht mechanical heart valves.HGB/HCT (H&H)-Stat [id number] 14:43:00 Test Item Value Reference Range Interpretation Comments Hemoglobin (test code = 786-4) 10.6 g/dL 13-16.8 L Hematocrit (test code = 4544-3) 31.0 % 40-50 L Lab Interpretation (test code = Abnormal 58781-5) [facility] [id number] 14:43:00 Test Item Value Reference Range Interpretation Comments Glucose (test code = 2345-7) 126 mg/dL 70-110 H Lab Interpretation (test code = Abnormal 22182-5) [facility] [id number] 14:43:00 Test Item Value Reference Range Interpretation Comments Sodium (test code = 2951-2) 134 meq/L 135-148 L Lab Interpretation (test code = Abnormal 52230-2) [facility]Potassium[facility]Stat [id number] 14:43:00 Test Item Value Reference Range Interpretation Comments Potassium (test code = 2823-3) 3.1 meq/L 3.6-5.5 L Lab Interpretation (test code = Abnormal 93240-6) [facility] CenterBLOOD GAS, [id number] 14:43:00 Test Item Value Reference Range Interpretation [...] code = 1819) 100.0 % SODIUM NA-STAT [id number] 14:43:00 Test Item Value Reference Range Interpretation Comments SODIUM (BEAKER) (test code = 381) 134 meq/L 135-148 L POTASSIUM-STAT [id number] 14:43:00 Test Item Value Reference Range Interpretation Comments POTASSIUM (BEAKER) (test code = 3.1 meq/L 3.6-5.5 L 379) GLUCOSE-STAT [id number] 14:43:00 Test Item Value Reference Range Interpretation Comments GLUCOSE RANDOM (BEAKER) (test code 126 mg/dL 70-110 H = 652) HGB/HCT (H&H) - STAT [id number] 14:43:00 Test Item Value Reference Range Interpretation [...] CELLS (BEAKER) (test code = 413) CALCIUM, [id number] 14:30:00 Test Item Value Reference Range Interpretation Comments CALCIUM IONIZED (BEAKER) (test 1.22 mmol/L 1.12-1.27 code = 698) PH, BLOOD (BEAKER) (test code = 7.44 1810) BLOOD GAS, [id number] 12:39:00 Test Item Value Reference Range Interpretation [...] code = 1819) 60.0 % SODIUM NA-STAT [id number] 12:39:00 Test Item Value Reference Range Interpretation Comments SODIUM (BEAKER) (test code = 381) 134 meq/L 135-148 L POTASSIUM-STAT [id number] 12:39:00 Test Item Value Reference Range Interpretation Comments POTASSIUM (BEAKER) (test code = 3.3 meq/L 3.6-5.5 L 379) GLUCOSE-STAT [id number] 12:39:00 Test Item Value Reference Range Interpretation Comments GLUCOSE RANDOM (BEAKER) (test code 116 mg/dL 70-110 H = 652) HGB/HCT (H&H) - STAT [id number] 12:39:00 Test Item Value Reference Range Interpretation Comments HEMOGLOBIN (BEAKER) (test code = 10.9 g/dL 13.0-16.8 L 410) HEMATOCRIT (BEAKER) (test code = 32.0 % 40.0-50.0 L 411) PROTHROMBIN [id number] 11:28:00 Test Item Value Reference Range Interpretation [...] is2.5-3.5 for patients wiht mechanical heart valves.CALCIUM, [id number] 11:03:00 Test Item Value Reference Range Interpretation Comments CALCIUM IONIZED (BEAKER) (test 1.25 mmol/L 1.12-1.27 code = 698) PH, BLOOD (BEAKER) (test code = 7.48 1810) BLOOD GAS, [id number] 11:03:00 Test Item Value Reference Range Interpretation [...] code = 1819) 55.0 % SODIUM NA-STAT [id number] 11:03:00 Test Item Value Reference Range Interpretation Comments SODIUM (BEAKER) (test code = 381) 134 meq/L 135-148 L POTASSIUM-STAT [id number] 11:03:00 Test Item Value Reference Range Interpretation Comments POTASSIUM (BEAKER) (test code = 2.8 meq/L 3.6-5.5 L 379) GLUCOSE-STAT [id number] 11:03:00 Test Item Value Reference Range Interpretation Comments GLUCOSE RANDOM (BEAKER) (test code 115 mg/dL 70-110 H = 652) HGB/HCT (H&H) - STAT [id number] 11:03:00 Test Item Value Reference Range Interpretation Comments HEMOGLOBIN (BEAKER) (test code = 10.6 g/dL 13.0-16.8 L 410) HEMATOCRIT (BEAKER) (test code = 31.0 % 40.0-50.0 L 411) [id number] 08:20:00 Test Item Value Reference Range Interpretation Comments MAGNESIUM (BEAKER) (test code = 1.7 mg/dL 1.6-2.6 627) Truck Bench Mechanic ID - GALAPBASIC METABOLIC [id number] 08:20:00 Test Item Value Reference Range Interpretation [...] S NOT APPLICABLE FOR DIALYSIS PATIEN TS. Truck Bench Mechanic ID - GALAPSpecimen slightly ictericHEPATIC FUNCTION [id number] 08:20:00 Test Item Value Reference Range Interpretation [...] (test code = 18 U/L 6-55 347) Truck Bench Mechanic ID - GALAPSpecimen slightly ictericPROTHROMBIN TIME/[id number] 08:00:00 Test Item Value Reference Range Interpretation [...] is2.5-3.5 for patients wiht mechanical heart valves.POCT-GLUCOSE [id number] 21:37:00 Test Item Value Reference Range Interpretation Comments POC-GLUCOSE METER 179 mg/dL 70-110 H : TESTED A T [facility] 6720 (BEAKER) (test code = [employer] [facility], 1538) [address]: Truck Bench Mechanic/Techni lars ID = [id number] for Catrachita Villanueva POCT-GLUCOSE [id number] 17:50:00 Test Item Value Reference Range Interpretation Comments POC-GLUCOSE METER 121 mg/dL 70-110 H : TESTED A T [facility] 6720 (BEAKER) (test code = [employer] [place], 1538) [address]: Truck Bench Mechanic/Techni lars ID = [id number] for LATISHA WELCH, [id number] 17:45:00 Test Item Value Reference Range Interpretation Comments ABO Grouping (test code = 2588) O Rh Factor (test code = 2589) POS [facility] CenterBL[facility], [id number] 17:25:00 Test Item Value Reference Range Interpretation [...] 21-29 = 388) BASE EXCESS ARTERIAL (BEAKER) 5.3 mmol/L -2.0-3.0 H (test code = 387) PATIENT TEMPERATURE (BEAKER) (test 37.1 C code = 1818) FIO2 (BEAKER) (test code = 1819) 32.0 % 2D Echo W/Doppler(CW/PW/Color)2019-12-15 16:42:26Ejection FractionSLEH ECHO HEARTLAB MKCKESSON CPACSInterface, External Ris In - 12/15/2019 6:11 PM C STTransthoracic Echocardiography Report (TTE) Demographics Patient Name RENE CHAMBERLAIN Date of Study 12/15/2019 Gender Male Visit Number [id number] Race Room Number 1430 Number Date of 1945 Referring Physician Niyah Mojica MD Age 74 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 Normal LV size. LVfunction appears mildly reduced (40-44%). Septal motion is abnormal, likely related to conduction abnormality . The other segments are mildly hypokinetic. 2. Normal RV size and function. 3. Unable toestimate peak systolic PA pressure. 4. The estimated RA pressure by IVC dynamics 5-10mmHg . Previous Study No prior studies available for comparison. Signature Electronically signed by Doris Gore MD(Interpreting physician)on 12/15/2019 06:11 PM Findings Mann hnical Quality: Technically difficult exam. Left Ventricle LV endocardium is partially visualized with IV ultrasound enhancing agent. The left ventricle is chamber size (by vol index) is normal (male - LVED vol - 34-74ml/m2).Mild concentric LV hypertrophy. Septal motion is abnormal, likely related to conduction abnormality . The other segments are mildly hypokinetic. Global LV systolic function mildly reduced . Estimated LVEF by qualitative assessment is mildly reduced (40-44%) . Degree of diastolic dysfunction (LAP assessment) is inconclusive due to arrhythmia . Left Atrium LA is incompletely visualized, size based on linear measurement. LA size is mildly enlarged . Right Ventricle The right ventricular chamber size and systolic function are within normal limits. RV pacing wire is visualized . Right Atrium RA size is normal. RA pacing wire is visualized . Aortic Valve Mild AoV cusp thickening. No evidence of aortic regurgitation. Mitral Valve Mild MV leaflet thickening. Trace mitral regurgitation. Tricuspid Valve Normal TV structure andfunction by available views and Doppler. Unable to estimate peak systolic PA pressure; inadequate TR velocity signal. Pulmonic Valve Normal PV structure and function by limited views and Doppler. Aorta Aortic root size (Sinus of Valsalva diameter) is mildly dilated. 4.1 cm Pericardium No pericardial effusion is visualized. IVC/SVC/PA/PV/Pleural The estimated RA pressure [...] Mean Gradient: 2.44 mmHg LVOT Diameter: 2.54 cm LVOT VTI: 15.33 cm LVOT Area: 5.07 cm^2 LVOT SV:77.64 ml LVOT CO: 7.22 l/min LVOT CI: 2.85 l/min/m^2[facility] AWAKE AND [id number] 16:41:00Reason for exam:->amsDATE OF TEST: 12/15/19 DATE OF REPORT: 12/15/19 ACC: [id number] Start: 1603 End: 1624 CPT Code: 84250 ICD-10: R56.9 HISTORY: 74 yo male with HTN, HLD, CAD, Obesity, AVN s/p dual ppm 2007 and cardiomyopathy s/p BIV-ICD upgrade in 2014 who was transferred from [facility] for lead extraction. Patient was admitted to [facility] with change in mental status. Per [...] Primitivo Chowdary MD, MS Neurophysiol ogy/Epilepsy Attending EEG AWAKE AND [id number] 16:41:00Interface, External Ris In - 12/15/2019 4:41 PM CSTDATE OF TEST: 12/15/19 DATE OF REPORT: 12/15/19 ACC: [id number] Start: 1603 End: 1624 CPT Code: 56407 ICD-10: R56.9 HISTORY: 74 yo male with HTN, HLD,CAD, Obesity, AVN s/p dual ppm 2007 and cardiomyopathy s/p BIV-ICD upgrade in 2014 who was transferred from [facility] for lead extraction. Patient was admitted to [facility] with change in mental status. Per son, he had positive blood clusters on that admission. He was re-admitted with changes in mental status. TECHNICAL SUMMARY: This is a digital video EEG recorded with 32 input channels reviewed with bipolar and referential montages using the modified combinatorial system nomenclature. MEDICATIONS: Heparin, [...] additional EEG recordings. Primitivo Chowdary MD, MS Neurophysiology/Epilepsy Attending [facility] AngelesPO[facility]GLU[facility]SE [id number] 14:28:00 Test Item Value Reference Range Interpretation Comments POC-GLUCOSE METER 153 mg/dL 70-110 H : TESTED A T [facility] 6720 (BEAKER) (test code = [employer] [facility], 1538) [address]: Truck Bench Mechanic/Techni lars ID = [id number] for LATI NKHUSHBOOA POCT-GLUCOSE [id number] 08:55:00 Test Item Value Reference Range Interpretation Comments POC-GLUCOSE METER 117 mg/dL 70-110 H : TESTED A T [facility] 6720 (BEAKER) (test code = [employer] [facility], 1538) [address]: Truck Bench Mechanic/Techni lars ID = [id number] for LATI N, LATISHA CBC W/PLT COUNT & AUTO [id number] 04:22:00 Test Item Value Reference Range Interpretation [...] H PERCENT (BEAKER) (test code = 2801) Lipid [id number] 03:32:00 Test Item Value Reference Range Interpretation Comments Triglycerides (test 126 mg/dL code = 2571-8) Cholesterol (test code 90 mg/dL = 2093-3) HDL (test code = 6 mg/dL 2085-9) LDL Calculated (test 59 mg/dL code = 40024-4) DMITRIY (test code = DMITRIY) Triglyceride Reference Range: Low Risk <150 Borderline 150-199 High Risk 200-499 Very High Risk >=500 Cholesterol Reference Range: Low Risk <200 Borderline 200-239 High Risk >240 HDL Cholesterol Reference Range: Low Risk >=60 High Risk <40 LDL Cholesterol Reference Range: Optimal <100 Near Optimal 100-129 Borderline 130-159 High 160-189 Very High >=190 Truck Bench Mechanic ID - DBSpecimen slightly icteric [facility] METABOLIC [id number] 03:32:00 Test Item Value Reference Range Interpretation [...] S NOT APPLICABLE FOR DIALYSIS PATIEN TS. Truck Bench Mechanic ID - DBSpecimen slightly ictericLIPID [id number] 03:32:00 Test Item Value Reference Range Interpretation [...] Borderline 130-159 High 160-189 Very High >=190 Truck Bench Mechanic ID - DBSpecimen slightly ictericHEPATIC FUNCTION [...] (test code = 22 U/L 6-55 347) Truck Bench Mechanic ID - DBSpecimen slightly ictericPROTHROMBIN TIME/[id number] 03:09:00 Test Item Value Reference Range Interpretation [...] INR is2.5-3.5 for patients wiht mechanical heart valves.CHEM [id number] 11:51:37412 [facility]annCHEM [id number] 11:51:0036[facility]annCHEM PANEL 2019-12-13 11:51:001.20[facility]annCHEM FDSJX7367-10-57 11:51:61986Dtahahcr HermannCHEM ZBUOL9776-75-04 11:51:003.2[facility]annCHEM CKETT1231-12-08 11:51:55544Smkiqlpa HermannCHEM PHNMT5633-49-01 11:51:0025[facility] HermannCHEM JANRD4513-25-00 11:51:009.6[facility]annCHEM FQANK4121-56-50 11:51:0012.2 [facility]annCHEM [id number] 11:51:0058[facility]annCHEM PANEL 2019-12-13 11:51:001.9[facility] DezvhnlBCDHWSOTAB5578-65-39 11:51:0012.2[facility] JgauhbqOXYWIDNFUH0435-43-70 11:51:004.03[facility] IdebqucPTORJDBXHD4316-33-85 11:51:0011.9[facility] YfkdmaqVALQSVDKRA2719-58-58 11:51:0035.8[facility] Suring UFBVOHAPFL1959-67-37 11:51:0089.0[facility] DhzogcoKRKONCJCNC3618-86-95 11:51:00 Test Item Value Reference Range Interpretation Comments MCH (test code = MCH) 29.6 pg 27.0-31.0 [facility] TqoxbwvXTMVGXTLWV9485-43-47 11:51:0033.2[facility]annHEMATOLOGY 2019-12-13 11:51:0014.9[facility] LjhezjtMJAFUXMAUL6723-94-06 11:51:40272Jwdaysnb OgzmfraHPRHDSKXUW9599-21-60 11:51:009.7[facility] JfwyfqtHHXFYIVCBS8129-52-45 11:51:0086.4[facility] PtqwxllTACUWXIYSH1606-36-09 11:51:007.3[facility] Luis UMNDBJPJDP2377-72-73 11:51:005.1[facility] DhgvlseKJCMQGGHEL0231-12-40 11:51:000.2 [facility] BrofenoIHUHJYUFCN5128-05-38 11:51:001.0[facility]annHEMATOLOGY 2019-12-13 11:51:0010.5[facility] GspcynrXMBFUTRXPQ4904-90-48 11:51:000.9[facility] CovyjiyEFRENGSTBH6157-89-72 11:51:000.6[facility] JcoiwqeFVFINYWDLT1539-32-44 11:51:000.1[facility] HermannSPECIAL MFZGQXRNN0576-34-30 11:51:005.4[facility] HermannCHEM QQLNK4023-97-67 21:50:17254Ymqexvpu HermannCHEM LTTOV4569-30-50 21:50:0037[facility] HermannCHEM GDZDS4581-12-26 21:50:001.20[facility] HermannCHEM RQZPB0118-09-29 21:50:15596Czbhvwgp HermannCHEM EIMFW0224-10-36 21:50:002.7 [facility]annCHEM EWKBZ7964-28-45 21:50:01448Uvvcaaqj HermannCHEM PANEL 2019-12-12 21:50:0031[facility] HermannCHEM VOUHT3264-35-73 21:50:006.7[facility] HermannCHEM DVMDL1556 21:50:009.4[facility] HermannCHEM CDXFG7276-89-64 21:50:0058[facility] HermannCHEM ZNFBT2665-74-33 21:50:0014.0[facility] Suring BOAULKOTVI4851-27-90 21:50:0011.3[facility] CpvjsjiDYQWOKCBTY9141-83-18 21:50:00 4.04[facility] LmqvupxJRNGGALFWH7096-42-22 21:50:0011.9[facility] HermannHEMATOLOGY 2019-12-12 21:50:0035.9[facility] DhtolhhKJHLRVBGZK8817-13-48 21:50:0088.8[facility] MgoxuoyGFTRLNAVCW3232-32-16 21:50:00 Test Item Value Reference Range Interpretation Comments MCH (test code = MCH) 29.5 pg 27.0-31.0 Memorial HqmhwmqJJADSVWKZB8167-88-46 21:50:0033.2[facility]annHEMATOLOGY 2019-12-12 21:50:0014.7[facility] GowstwnHVGCIPFZQQ0550-31-47 21:50:16196Lwqofmez EqwpaebGDVEHSHZGB0475-35-25 21:50:009.8[facility] KglngxtQQFICQGTMN5293-91-99 21:50:00Normal (12/12/19 3:50 PM)[facility] UifyffgHMFETGYFWT2177-99-10 21:50:00 Normal (12/12/19 3:50 PM)[facility] YmshdaaSMURPLPETV7990-30-08 21:50:0084.7 [facility] UtuxvieCXAWUKTHEG2159-29-64 21:50:007.4[facility] HermannHEMATOLOGY 2019-12-12 21:50:007.6[facility] YkxdobdKTVICOEFJK9190-42-33 21:50:000.3[facility] IasulfjBIPSSEJMWC2126-97-29 21:50:000.0[facility] AywymejJAQXBWPHBX2889-82-35 21:50:009.6[facility] FxzmplvRUDONYJWTJ6987-71-60 21:50:000.8[facility] XRVNKMEPHF9802-71-53 21:50:000.9[facility] TnitcfmBTEIOTQSPP1938-96-67 21:50:000.0 [facility] VntgdlnYLTPWFZZBQ4696-31-90 21:50:000.0[facility] 2019-12-12 02:55:00Slight *ABN*(12/11/19 8:55 PM)[facility] 2019-12-12 02:55:00 Test Item Value Reference Range Interpretation Comments UA Spec Grav (test code = UA Spec 1.010 1 Grav) [facility] JRTNX9964-65-56 02:55:00 Test Item Value Reference Range Interpretation Comments UA pH (test code = UA pH) 5.0 1 5.0-8.0 [facility] HSUQN2440-03-67 02:55:00Negative *NA*(12/11/19 8:55 PM) [facility] VELSG3175-32-59 02:55:00Large *ABN*(12/11/19 8:55 PM) [facility] JJXEJ2633-42-94 02:55:004.0[facility] VOANF4178-18-35 02:55:00Negative (12/11/19 8:55 PM)[facility] KJSFK4216-06-14 02:55:00Negative (12/11/19 8:55 PM)[facility] MCPKU6975-10-47 02:55:0014[facility] VCODM0636-55-73 02:55:00 >182[facility] LMYGU0355-63-19 02:55:001[facility] CARDIAC VOHXQWQ8030-68-99 10:14:29379Gixforgw HermannCHEM ZWXUY3082-88-53 10:14:0092[facility]annCHEM DIIPQ8763-77-44 10:14:0029[facility]annCHEM KWQEG2466-52-87 10:14:001.00[facility]annCHEM FXKPB7151-10-35 10:14:15530 [facility] DVESA6651-53-25 10:14:003.6[facility]annCHEM PANEL 2019-12-11 10:14:62051Kegmzdve HermannCHEM RAQFN4762-39-59 10:14:0021[facility]annCHE[facility] CQEIW1877-61-17 10:14:009.8[facility]annCHE[facility] FWASF7254-62-82 10:14:005.8[facility]annCHEM IXNZW5293-77-24 10:14:002.3[facility]annCHEM RDBMH4539-45-12 10:14:0034[facility]annCHEM UNIOV4221-46-91 10:14:0050 [facility] XYGQP2601-72-70 10:14:0073[facility]annCHEM PANEL 2019-12-11 10:14:001.2[facility]annCHEM ESYUB1787-25-05 10:14:0013.6[facility]annCHEM TYHUN9188-50-96 10:14:00 Test Item Value Reference Range Interpretation Comments B/C Ratio (test code = B/C Ratio) 29 1 6-25 [facility] UWGAX1480-90-59 10:14:003.5[facility]annCHEM PANEL 2019-12-11 10:14:00 Test Item Value Reference Range Interpretation Comments A/G Ratio (test code = A/G Ratio) 0.7 1 0.7-1.6 [facility] VIPKF8764-99-70 10:14:0073[facility]annHEMATOLOGY 2019-12-11 10:14:007.8[facility] TkvczxbHABZCRCBKC0740-44-75 10:14:003.88[facility] RlwrarsDPLOJBHDJC4872-89-07 10:14:0011.6[facility] ElbjwtmDREZYOMRPU3306-49-66 10:14:0035.3[facility] BllryyxUOLNRZLHVE6649-53-08 10:14:0091.0[facility] OLFYONTMLQ7276-58-49 10:14:00 Test Item Value Reference Range Interpretation Comments MCH (test code = MCH) 30.0 pg 27.0-31.0 [facility] GgukkxuZTOBEZJSRK9665-30-34 10:14:0033.0[facility]annHEMATOLOGY 2019-12-11 10:14:0014.7[facility] XeulsnkRVGVDANBJL9066-19-36 10:14:37632Euegtmjc OrgckktBSXZHCOOBP3172-56-87 10:14:0010.1[facility] KgpbjawHCIVMFFUSH2706-49-10 10:14:0081.9[facility] AxafwmgUYZBRMRHZF1339-71-61 10:14:0010.8[facility] GROITOIXPZ3624-99-25 10:14:006.9[facility] FvwsnmkCNQLTUZRRG9391-02-21 10:14:000.2 [facility] VmvcbqsCQNBHQVWRZ2195-74-20 10:14:000.2[facility]annHEMATOLOGY 2019-12-11 10:14:006.4[facility] QqekcyxRNGPZEEEZY4836-65-98 10:14:000.8[facility] NzyytmnQRSNRPSLBQ9184-28-51 10:14:000.5[facility] KmacdpzFJDAXLDHYD4022-46-58 10:14:000.0[facility] BbveuzaFYLHHQKWRB0564-51-53 10:14:000.0[facility] Luis Ktmtdgddn0868-83-33 14:14:20950Zqsqexxy UvvtxdeVomvopcgm6603-26-42 14:14:003.3 [facility] DkpycphIyujrjtfj9375-18-19 14:14:0028[facility] HermannChemistry 2015-05-01 14:14:001.01[facility] GaloynmXtagiaafx7656-04-09 14:14:009.9[facility] CwonagxTkvqihzvi1924-06-32 16:03:15535Teryxpiz WlzmsvpAtfoqvgod2365-44-36 16:03:003.5[facility] CnhiwqsDbtsnclyk6928-89-14 16:03:0021[facility] Mtfabfkfa5535-16-71 16:03:000.97[facility] ZdxruywFdaowrhuf2690-79-85 16:03:0010.1 [facility] OdyefqnWgmdcjrfe1734-10-63 16:03:78179Mqigjcmz HermannChemistry 2015-04-24 16:03:0045[facility] KpfebzmPnjwqazeo4572-31-94 16:03:66694Qvyzmemb DktxskhSldizmimt7565-11-93 16:03:004.4[facility] EmcqpqdHlfgyhigv8387-88-14 16:03:0059[facility] BwbypiiUnegwnglt4323-24-98 16:03:0024[facility] Bwbcykxaf8437-09-14 16:03:0020[facility] OidfyaxNsizxmehz0230-36-77 16:03:001.9 [facility] CqddfmgHsnzvnzahoh6585-54-46 16:03:00 Test Item Value Reference Range Interpretation Comments INR (test code = INR) 1.05 1 0.8-1.5 [facility] HwlumkqMkvpcjnvkne8925-88-37 16:03:00 Test Item Value Reference Range Interpretation Comments PTT PATIENT (test code = PTT PATIENT) 27.6 s 22.0-36.0 [facility] UqaxkdhGxciwfwdffz1015-70-31 16:03:00 Test Item Value Reference Range Interpretation Comments INR (test code = INR) 1.05 1 0.8-1.5 [facility] KiukbopVmbpltwclvj6019-44-12 16:03:00 Test Item Value Reference Range Interpretation Comments PTT PATIENT (test code = PTT PATIENT) 27.6 s 22.0-36.0 [facility] ByqwsbqYhllvgzyqx3177-44-87 16:03:0014.7[facility] HermannHematology 2015-04-24 16:03:0043.9[facility] FfbsywcMubvgldbm2934-18-27 16:27:59901Tpfclknr ZlojfpkGdpttbmvu0112-06-94 16:27:003.6[facility] DsdfimtZzfpwvtnh3406-20-17 16:27:26241Lwlpcfzf MrpabujWjpnmrcua1756-08-85 16:27:003.6[facility] Yqsygekop9315-82-53 16:27:0019[facility] WvjiptaVoysqycjp3005-60-91 16:27:001.09 [facility] RhiythkBjvlofvhm9887-35-44 16:27:0010.8[facility] HermannChemistry 2014-07-07 16:17:32155Gsjpkocu CudczcgHgrsbirbz1553-27-26 16:17:003.8[facility] CumwehuAftsqthgu2405-74-97 16:17:30540Kejvtiya AedmbupTcpbfdnna4967-94-71 16:17:003.8[facility] SkmfftnEvfdlufbm8112-34-99 16:17:0015[facility] Slzgxpjbu9755-77-04 16:17:000.96[facility] IttvgwkTpwyopxsx9353-55-71 16:17:0010.1 [facility] BkueazlUvykdgczxu2030-81-64 16:17:0014.1[facility] HermannHematology 2014-07-07 16:17:0041.2[facility] HermannCARDIAC GZBDDFB1763-51-33 14:45:001.3 [facility]annCARDIAC PJBQMRZ2323-65-17 14:45:000.02[facility]annCARDIAC HLSOYOL9419-72-27 14:45:001.9[facility]annCARDIAC WDBCYRT1913-49-35 14:45:00 149[facility] HermannCHEM OZJZJ5671-40-93 14:45:0068[facility] HermannCHEM PANEL 2014-05-03 14:45:14098Yzxohqwf HermannCHEM KCQNE1171-27-10 14:45:001.1[facility] HermannCHEM KUACR0162-53-98 14:45:0018[facility] HermannCHEM SQHKU9682-58-91 14:45:0090[facility] HermannCHEM DSPHE4658-35-79 14:45:009.4[facility] HermannCHEM JAOKT2431-32-60 14:45:009.5[facility] HermannCHEM QMWWF7199-04-26 14:45:69006 [facility]annCHEM IVSRG1531-52-59 14:45:0029[facility]annCHEM PANEL 2014-05-03 14:45:003.4[facility] BndbuasUGIIFSSDOT0788-24-91 14:45:000.7[facility] NkulrskWNUACFXMKL4601-93-29 14:45:003.3[facility] JvbhmajKHKJFZCNIN7415-36-10 14:45:008.1[facility] TyhcnanESKWVNCHCR4887-07-57 14:45:0031.7[facility] KERMVZCIIC8249-47-75 14:45:0056.2[facility] VeavifaHXPTCASNFL6903-16-91 14:45:00 0.0[facility] VreajfnKZHBGGXREK2021-59-71 14:45:000.2[facility] HermannHEMATOLOGY 2014-05-03 14:45:000.5[facility] XmtnlrbATWEGQTQNI1496-23-68 14:45:001.8[facility] ZsrjmaiINUVPZCWHI9275-44-62 14:45:003.1[facility] GeycbfdGSZUOKQDIG2904-07-63 14:45:00 Test Item Value Reference Range Interpretation Comments PT (test code = PT) 12.9 s 12.0-14.7 [facility] ZahadnxTSULZDTECR2242-34-57 14:45:000.98[facility] HermannHEMATOLOGY 2014-05-03 14:45:00 Test Item Value Reference Range Interpretation Comments PTT (test code = PTT) 28.7 s 22.9-35.8 [facility] JzhpzutYYCTVPZLEP2035-02-52 14:45:0013.9[facility] HermannHEMATOLOGY 2014-05-03 14:45:0091.8[facility] BbgjpfkYFCZYVKBZF1953-92-38 14:45:0040.8[facility] DvsnsdfSDTDXEAPUH3412-94-42 14:45:005.6[facility] BlmlubvGGLNKQXVYM1008-81-07 14:45:004.45[facility] WmhlrlxBNPACVAFCO7297-02-87 14:45:00 Test Item Value Reference Range Interpretation Comments MCH (test code = MCH) 31.2 pg 27.0-31.0 [facility] PbtpnhqAZNBTYKXUU0145-21-49 14:45:0013.2[facility] HermannHEMATOLOGY 2014-05-03 14:45:0034.0[facility] AahgdznRKMDNEOQMI0031-89-18 14:45:36735Llqbcphk ThgiukuGHLUBVFCMP6988-65-62 14:45:008.8[facility] DjxttfzSmujmfzwe4572-67-07 22:30:481.45[facility] HiyytpnClzpinoqn0230-34-04 22:30:481.45[facility] Xgmgadpzx4639-83-27 22:30:481.45[facility]
[2020-07-04 12:18] LABS: Absolute Lymphocytes (CBC) 1.5 K/uL (0.7-4.9); Basophils % 0.6 % (0-1.3); Hematocrit 37.4 % (39.6-49.0); Lymphocytes % 18.7 % (15.3-44.8); MPV 8.1 fL (7.6-11.3); RBC Red Blood Cell Count 4.36 M/uL (4.33-5.43)
[2020-07-04 12:25] LABS: Protime INR 1.11
[2020-07-04 12:42] LABS: Potassium 3.9 mmol/L (3.5-5.1); Troponin (Emerg Dept Use Only) 0.04 ng/mL (0.0-0.045)
[2020-07-04 13:20] LABS: Urine Bacteria NONE SEEN /HPF (NONE SEEN); Urine Culture Reflex Order NOT NEEDED
[2020-07-04 13:21] LABS: Urine Blood TRACE (NEG); Urine Glucose NEGATIVE (NEG); Urine Protein NEGATIVE (NEG); Urine Specific Gravity 1.015 (1.005-1.030)
--- NOTE | 2020-07-04 13:40 | RAD REPORT ---
EXAM DESCRIPTION: RAD - Chest Single View - 07/04/2020 1:32 pm CLINICAL HISTORY: COUGH, weakness, hypotension, history of CHF and coronary artery disease COMPARISON: Portable December 10 TECHNIQUE: AP portable chest image was obtained 07/04/2020 1:32 pm . FINDINGS: Lung volumes are low accentuating the baseline interstitial pattern. Calcified granuloma s een in the medial right lung base. Heart size is upper normal. Pericardial fat pads accentuate the he art size along with the affects of shallow inspiration. Patient is left-sided pacemaker has been removed with a right-sided defibrillator/pacemaker now in pl jose rafael. No measurable pleural effusion and no pneumothorax. No acute bony abnormality seen. No acute aor tic findings suspected. IMPRESSION: Limited shallow inspiration chest without peripheral mass or consolidation. No significant failure or volume overload findings.
--- NOTE | 2020-07-04 14:29 | EDPHYS ---
Physician Documentation [facility] Name: Schuyler Farris Jr Age: 74 yrs Sex: Male : 1945 Arrival Date: 07/04/2020 Time: 11:28 Bed 8 Private MD: ED Physician Herman Byrd HPI: 07/04 13:10 This 74 yrs old Male presents to ER via EMS with complaints of General rn Weakness, Hypotension. 13:10 Reports generalized weakness, told by [facility] that has low blood pressure, reports rn eating and drinking ok, no fever/cough/chest pain/abd pain/vomiting/diarrhea/urinary symptoms. No intervention by EMS, and BP improved. . Onset: The symptoms/episode began/occurred today. Severity of symptoms: At their worst the symptoms were moderate in the emergency department the symptoms have improved. It is unknown whether or not the patient has had similar symptoms in the past. Historical: - Allergies: 11:37 Bactrim; jr10 11:37 Tetanus Vaccines \T\ Toxoid; jr10 - PMHx: 11:37 Angina; CAD; CHF; Hyperlipidemia; Hypertension; pacemaker/defibrilator; jr10 - Immunization history:: Adult Immunizations up to date. - Social history:: Smoking status: unknown. - Family history:: not pertinent. - Hospitalizations: : No recent hospitalization is reported. ROS: 13:10 Constitutional: Negative for fever, chills, and weight loss, Eyes: Negative for injury, rn pain, redness, and discharge, Cardiovascular: Negative for chest pain, palpitations, and edema, Respiratory: Negative for shortness of breath, wheezing, and pleuritic chest pain, Abdomen/GI: Negative for abdominal pain, nausea, vomiting, diarrhea, and constipation, Back: Negative for injury and pain, : Negative for injury, bleeding, discharge, and swelling, MS/Extremity: Negative for injury and deformity, Skin: Negative for injury, rash, and discoloration, Neuro: Negative for headache, numbness, tingling, and seizure. Exam: 13:10 Constitutional: This is a well developed, well nourished patient who is awake, alert, rn and in no acute distress. Head/Face: Normocephalic, atraumatic. Cardiovascular: Regular rate and rhythm. No pulse deficits. Respiratory: No increased work of breathing, no retractions or nasal flaring. Abdomen/GI: soft, non-tender Skin: Warm, dry MS/ Extremity: Pulses equal, no cyanosis. Neuro: Awake and alert, GCS 15 14:26 ECG was reviewed by the Attending Physician. rn Vital Signs: 11:33 BP 128 / 68; Pulse 80; Resp 22; Pulse Ox 99% on 2 lpm NC; Weight 95.25 kg; Pain 0/10; jr10 12:38 BP 118 / 77; Pulse 77; Resp 17; Temp 98.7(O); Pulse Ox 100% on 2 lpm NC; jr10 13:19 BP 131 / 89; Pulse 78; Resp 22; Pulse Ox 98% ; jr10 15:01 BP 127 / 75; Pulse 82; Resp 20; Pulse Ox 100% on 1 lpm NC; jr10 15:59 BP 133 / 86; Pulse 75; Resp 22; Pulse Ox 99% on R/A; jr10 16:36 BP 118 / 99; Pulse 71; Resp 22; Pulse Ox 96% on R/A; jr10 MDM: 11:28 Patient medically screened. rn 14:26 Differential Diagnosis COVID, dehydration, UTI, sepsis, pneumonia. Data reviewed: vital rn signs, nurses notes, lab test result(s), EKG, radiologic studies, plain films, and as a result, I will discharge patient. Counseling: I had a detailed discussion with the patient and/or guardian regarding: the historical points, exam findings, and any diagnostic results supporting the discharge/admit diagnosis, lab results, radiology results, the need for outpatient follow up, to return to the emergency department if symptoms worsen or persist or if there are any questions or concerns that arise at home. Response to treatment: the patient's symptoms have markedly improved after treatment, the patient's condition has returned to base line, the patient is now symptom free, patient is well hydrated. and as a result, I will discharge patient. Special discussion: I discussed with the patient/guardian in detail that at this point there is no indication for admission to the hospital. It is understood, however, that if the symptoms persist or worsen the patient needs to return immediately for re-evaluation. ED course: Pt states feels much better after fluids, neg procal and lactate, no acute findings on UA or cxr, no COVID contacts, but sent anyway. States feels good and would like to go back to [facility]. Return precautions given and understood. . 07/04 11:31 Order name: Urine Culture rn 07/04 11:31 Order name: Basic Metabolic Panel; Complete Time: 13:56 rn 07/04 11:31 Order name: Blood Culture Adult (2) rn 07/04 11:31 Order name: CBC with Diff; Complete Time: 13:56 rn 07/04 11:31 Order name: Lactate; Complete Time: 13:56 rn 07/04 11:31 Order name: Procalcitonin; Complete Time: 13:56 rn 07/04 11:31 Order name: Protime (+inr); Complete Time: 13:56 rn 07/04 11:31 Order name: Ptt, Activated; Complete Time: 13:56 rn 07/04 11:31 Order name: Troponin (emerg Dept Use Only); Complete Time: 13:56 rn 07/04 11:31 Order name: Urine Microscopic Only; Complete Time: 13:56 rn 07/04 11:31 Order name: Chest Single View XRAY; Complete Time: 13:56 rn 07/04 11:31 Order name: COVID-19 rn 07/04 13:08 Order name: Urine Dipstick--Ancillary (enter results); Complete Time: 13:56 em1 07/04 11:31 Order name: Cardiac monitoring; Complete Time: 11:43 rn 07/04 11:31 Order name: EKG - Nurse/Tech; Complete Time: 12:11 rn 07/04 11:31 Order name: IV Saline Lock - Large Bore; Complete Time: 12:23 rn 07/04 11:31 Order name: Labs collected and sent; Complete Time: 12:11 rn 07/04 11:31 Order name: O2 Per Protocol; Complete Time: 11:43 rn 07/04 11:31 Order name: O2 Sat Monitoring; Complete Time: 11:44 rn 07/04 11:31 Order name: Urine Dipstick-Ancillary (obtain specimen); Complete Time: 13:04 rn 07/04 13:25 Order name: EKG Electrocardiogram EDMS EC:26 Rate is 80 beats/min. Rhythm is regular. QRS interval is prolonged. T waves are Normal. rn No ST changes noted. Clinical impression: Ventricular pacemaker. Interpreted by me. Reviewed by me. Administered Medications: 12:23 Drug: NS 0.9% 500 ml Route: IV; Rate: bolus; Site: left antecubital; jr10 12:57 Follow up: Response: No adverse reaction; IV Status: Completed infusion jr10 Disposition: 07/04/20 14:28 Discharged to Home. Impression: Hypotension, unspecified, Dehydration. - Condition is Stable. - Discharge Instructions: Dehydration, Adult, Hypotension. - Medication Reconciliation Form, Thank You Letter, Antibiotic Education, Prescription Opioid Use, SBAR form form. - Follow up: Private Physician; When: As needed; Reason: Recheck today's complaints, Re-evaluation by your physician. - Problem is new. - Symptoms have improved. Signatures: Dispatcher [employer] EDMS Herman Byrd MD MD rn Rivera, Jessica, RN RN jr10 Corrections: (The following items were deleted from the chart) 13:36 11:31 Accucheck ordered. rn jr10 17:09 14:28 07/04/2020 14:28 Discharged to Home. Impression: Hypotension, unspecified; jr10 Dehydration. Condition is Stable. Forms are Medication Reconciliation Form, Thank You Letter, Antibiotic Education, Prescription Opioid Use. Follow up: Private Physician; When: As needed; Reason: Recheck today's complaints, Re-evaluation by your physician. Problem is new. Symptoms have improved. rn
--- NOTE | 2020-07-04 14:29 | ER ---
Nurse's Notes [facility] Name: Schuyler Farris Jr Age: 74 yrs Sex: Male : 1945 Arrival Date: 07/04/2020 Time: 11:28 Bed 8 Private MD: Diagnosis: Hypotension, unspecified;Dehydration Presentation: 07/04 11:33 Chief complaint: EMS states: pt presents via EMS from [facility] with reports of jr10 generalized weakness and hypotension. Coronavirus screen: Client denies travel out of the [place] in the last 14 days. At this time, the client does not indicate any symptoms associated with coronavirus-19. Ebola Screen: No symptoms or risks identified at this time. Initial Sepsis Screen: Does the patient meet any 2 criteria? RR > 20 per min. No. Patient's initial sepsis screen is negative. Does the patient have a suspected source of infection? No. Patient's initial sepsis screen is negative. Risk Assessment: Do you want to hurt yourself or someone else? Patient reports no desire to harm self or others. Onset of symptoms was July 04, 2020. 11:33 Method Of Arrival: EMS: [facility] jr10 11:33 Acuity: JOSE 3 jr10 Historical: - Allergies: 11:37 Bactrim; jr10 11:37 Tetanus Vaccines \T\ Toxoid; jr10 - PMHx: 11:37 Angina; CAD; CHF; Hyperlipidemia; Hypertension; pacemaker/defibrilator; jr10 - Immunization history:: Adult Immunizations up to date. - Social history:: Smoking status: unknown. - Family history:: not pertinent. - Hospitalizations: : No recent hospitalization is reported. Screenin:38 Abuse screen: Denies threats or abuse. Denies injuries from another. Nutritional jr10 screening: No deficits noted. Tuberculosis screening: No symptoms or risk factors identified. Fall Risk Fall in past 12 months (25 points). Secondary diagnosis (15 points) impaired mobility, IV access (20 points). Ambulatory Aid- None/Bed Rest/Nurse Assist (0 pts). Gait- Weak (10 pts.). Mental Status- Overestimates/Forgets Limitations (15 pts.). Assessment: 11:39 General: Appears in no apparent distress. Behavior is calm, cooperative, appropriate jr10 for age. Pain: Denies pain. Neuro: No deficits noted. Level of Consciousness is awake, alert, obeys commands, Oriented to Appropriate for age. Cardiovascular: No deficits noted. Denies chest pain, palpitations, shortness of breath, Patient's skin is warm and dry. Pulses are all present. Edema is absent. Rhythm is atrial pacer. Respiratory: No deficits noted. Reports cough that is productive, Airway is patent Respiratory effort is even, unlabored, Respiratory pattern is regular, tachypnea Breath sounds are clear bilaterally. Denies shortness of breath pain with respiration, pain with cough. GI: No signs and/or symptoms were reported involving the gastrointestinal system. Abdomen is PEG tube noted to mid-abd; pt reports that it was placed earlier this year, unsure why, denies hx of CVA; reports that he enjoys food by mouth at present Patient currently denies diarrhea, nausea, vomiting. : No deficits noted. No signs and/or symptoms were reported regarding the genitourinary system. EENT: No deficits noted. No signs and/or symptoms were reported regarding the EENT system. Derm: No deficits noted. No signs and/or symptoms reported regarding the dermatologic system. Musculoskeletal: No deficits noted. Reports weakness in generalized. 13:00 Reassessment: Patient and/or family updated on plan of care and expected duration. Pain jr10 level reassessed. Patient is alert, oriented x 3, equal unlabored respirations, skin warm/dry/pink. 14:30 Reassessment: Patient and/or family updated on plan of care and expected duration. Pain jr10 level reassessed. Patient is alert, oriented x 3, equal unlabored respirations, skin warm/dry/pink. spoke with pt about d/c plans, awaiting transportation to be set up by [facility]-way facility. 14:57 Reassessment: Spoke with Angeline JOHNSON of [facility] and she stated that she would call and have [facility] come and get the pt but it could be hours. 15:08 Reassessment: The social studies department chair from [facility] and she was asking about transportation to get the pt back to the [place]. Informed her that he does not meet requirements for us to send him back to the half-way and they will have to arrange transportation. I gave her the phone numbers to [facility] and [facility]. 15:41 Reassessment: Spoke with GAVINO at [facility], to follow up with transportation for the pt. Transferred me to another number with no answer. 15:43 Reassessment: Spoke with Rodri El at [facility] and she stated that [facility] will come to get the pt. Vital Signs: 11:33 BP 128 / 68; Pulse 80; Resp 22; Pulse Ox 99% on 2 lpm NC; Weight 95.25 kg; Pain 0/10; jr10 12:38 BP 118 / 77; Pulse 77; Resp 17; Temp 98.7(O); Pulse Ox 100% on 2 lpm NC; jr10 13:19 BP 131 / 89; Pulse 78; Resp 22; Pulse Ox 98% ; jr10 15:01 BP 127 / 75; Pulse 82; Resp 20; Pulse Ox 100% on 1 lpm NC; jr10 15:59 BP 133 / 86; Pulse 75; Resp 22; Pulse Ox 99% on R/A; jr10 16:36 BP 118 / 99; Pulse 71; Resp 22; Pulse Ox 96% on R/A; jr10 ED Course: 11:28 Patient arrived in ED. rn 11:28 Herman Byrd MD is Attending Physician. rn 11:33 Janet Osullivan, LIZ is Primary Nurse. jr10 11:36 Triage completed. jr10 11:38 Arm band placed on right wrist. jr10 11:39 Patient has correct armband on for positive identification. Bed in low position. Call jr10 light in reach. Side rails up X2. monitoring manager on. Pulse ox on. NIBP on. 12:20 Inserted saline lock: 20 gauge in left antecubital area, using aseptic technique. IV is jr10 patent, is intact, with fluids infusing freely, with good blood return, Flushed. 12:37 No provider procedures requiring assistance completed. jr10 13:32 Chest Single View XRAY In Process Unspecified. EDMS 13:37 Urine collected: straight cath specimen, clear. Straight cath inserted, using sterile mh5 technique, 16 Fr. Specimen obtained. 13:38 Urine Culture Sent. [facility] 17:08 IV discontinued, intact, bleeding controlled, No redness/swelling at site. Pressure jr10 dressing applied. Administered Medications: 12:23 Drug: NS 0.9% 500 ml Route: IV; Rate: bolus; Site: left antecubital; jr10 12:57 Follow up: Response: No adverse reaction; IV Status: Completed infusion jr10 Outcome: 14:28 Discharge ordered by . rn 17:08 Discharged to half-way. via [facility] jr10 17:08 Condition: stable 17:08 Discharge instructions given to patient, EMS, Instructed on discharge instructions, follow up and referral plans. Demonstrated understanding of instructions, follow-up care. 17:09 Patient left the ED. jr10 Signatures: Dispatcher [employer] EDDoris Wynn RN RN sv Nieto, Roman, MD MD rn Martinez, Maria [facility] Janet Osullivan RN RN jr10 Corrections: (The following items were deleted from the chart) 12:41 12:38 BP 118 / 77; Pulse 77bpm; Resp 17bpm; Pulse Ox 100% 2 lpm Nasal Cannula; jr10 jr10 16:04 15:41 Reassessment: Spoke with DON at [facility], to follow up with transportation for the sv pt. sv
--- NOTE | 2020-07-04 19:59 | EKG ---
Test Date: 2020-07-04 Test Time: 11:38:23 Attorney Recruiter: RADHIKA MEASUREMENT RESULTS: Intervals: Rate: 80 CO: 180 QRSD: 180 QT: 468 QTc: 539 [place]: P: -13 CO: 180 QRS: 267 T: 64 INTERPRETIVE STATEMENTS: Electronic ventricular pacemaker Compared to ECG 12/10/2019 12:42:12 Atrial-sensed ventricular-paced complex(es) or rhythm no longer present Failure to Capture no longer present Electronically Signed On 07-04-20 19:59:14 CDT by Suresh Humphries
[2020-07-04 20:28] VITALS: TEMP 98.7
[2020-07-04 20:32] VITALS: BP 118/99; O2SAT 96
== END 2020-07-04 17:09 | disposition home or self-care (01) ==
LOC: ER 11:23
DX: E86.0 Dehydration (principal); Z20.828 Contact with and (suspected) exposure to other viral communicable diseases; I95.9 Hypotension, unspecified; Z95.0 Presence of cardiac pacemaker; Z88.1 Allergy status to other antibiotic agents; Z88.7 Allergy status to serum and vaccine
CPT/HCPCS: 93005; 87040 ×2; 87088; 85025; 87086; 80048; 36415; 87205; 85610; 83605; 85730; 84484; 84145; 71045; 51702; 96360; 99284; U0002; J7040; 81003; 81015

== ENCOUNTER 2020-07-08 09:32 | Inpatient (IN) | payer OTHER ==
--- OUTSIDE RECORDS SUMMARY | 2020-07-08 09:37 | XMS REPORT | Clinical Summary ---
:1945 Author Organization [facility] Address [address] [place] [address] Care Team Providers Name Role Phone Edilberto [...] W/ GENERAL ANESTHE DEEJAY (SING/DUAL/MULT ) 01/17/2020 [facility] Sara Go MD [...] Only General Internal Medicine 12/15/2019 Travel 12/14/2019 [facility] Joanna Go MD [...] ecified organism; Acute pulmonary edema (HCC) after 07/08/2019 Immunizations Name Dates Previously Given Next Due [...] Inhaled Oxygen Concentration 40% 12/30/2019 8:48 AM SCIENTIFIC SOFTWARE ENGINEER Weight 109.7 kg (241 lb 13.5 oz) 01/27/2020 7: 00 AM CDT Height 193 cm (6' 3.98") 01/27/2020 7:00 AM CDT Body Mass Index 29.45 01/27/2020 7:00 AM CDT Plan of Treatment Health Maintenance Due Date Last Done Comments MEDICARE ANNUAL WELLNESS (YEAR 2 or FIRST YEAR if no 05/28/2006 IPPE) PNEUMOCOCCAL 65+ LOW/MEDIUM RISK (1 of 2 - PCV13) 2008 INFLUENZA VACCINE (#1) 2020 Implants Implanted Type Area Metal Filer Device Shelf Model / Identifier Expiration Serial / Date Lot Ld Endocardial Df4 Act 55 [id number] - [id number] IMPLANTS Right : [employer]:CARD 11/25/2021 [id number] / Implanted: Qty: 1 on 01/24/2020 by Niyah Montilla MD Heart RHY:DISEASE MGT [id number] / Lead Tendril Sts 52cm [id number] - [id number] PACEMAKER/IC N/A: S T LOLITA 07/26/2022 / Implanted: Qty: 1 on 12/16/2019 by Sujata Kuhn MD D CHAMBER Heart MED:CARDIAC [id number] / DEVICE RHYM MGMT Lead Attain Performa 88cm [id number] - [id number] PACEMAKER/IC R ight: MEDTR[employer]:CARD 11/04/2021 [id number] / Implanted: Qty: 1 on 01/24/2020 by Niyah Montilla MD D CHAMBER Heart RHY:DISEASE MGT [id number] / DEVICE Lead Pacemkr [place] 45cm [id number] - [id number] PACEMAKER/I C Right: MEDTR[employer]IC:CARD 12/03/2021 [id number] / Implanted: Qty: 1 on 01/24/2020 by Niayh Montilla MD D CHAMBER Heart RHY:DISEASE MGT [id number] / DEVICE Crtd Claria Mri Quad Us Df4 [id number] - [id number] PACEMAKER/I C Right: [employer]:CARD 05/23/2021 [id number] / Implanted: Qty: 1 on 01/24/2020 by Niyah Montilla MD D CHAMBER Heart RHY:DISEASE MGT [id number] / DEVICE Procedures Procedure Name Priority Date/Time [...] 488 ms QTC Calculation(Bazett) 552 ms P [place] -6 degrees R [place] 248 degrees T [place] 38 degrees Electronic ventricular pacem eva When [...] RHYTHM STRIP - SCAN 12/31/2019 2:21 PM SCIENTIFIC SOFTWARE ENGINEER ARRYTHMIA IMPLANT 12/31/2019 2:21 REPORT - SCAN PM SCIENTIFIC SOFTWARE ENGINEER POCT-GLUCOSE METER Routine 12/30/2019 12:28 Resul ts for this PM SCIENTIFIC SOFTWARE ENGINEER procedure are i n the results section. POCT-GLUCOSE METER Routine 12/30/2019 6:13 Resul ts for this AM SCIENTIFIC SOFTWARE ENGINEER procedure are i n the results section. CBC W/PLT COUNT & Routine 12/30/2019 4:06 Result s for this AUTO DIFFERENTIAL AM SCIENTIFIC SOFTWARE ENGINEER procedure are in the results section. APTT Routine 12/30/2019 4:06 Results for this AM SCIENTIFIC SOFTWARE ENGINEER procedure are i n the results section. PHOSPHORUS Routine 12/30/2019 4:06 Results for this AM SCIENTIFIC SOFTWARE ENGINEER procedure are i n the results section. COMPREHENSIVE Routine 12/30/2019 4:06 Results fo r this METABOLIC PANEL AM SCIENTIFIC SOFTWARE ENGINEER procedure ar e in the results section. CALCIUM, IONIZED Routine 12/30/2019 4:06 Results for this AM SCIENTIFIC SOFTWARE ENGINEER procedure are i n the results section. MAGNESIUM Routine 12/30/2019 4:06 Results for this AM SCIENTIFIC SOFTWARE ENGINEER procedure are i n the results section. CBC W/PLT COUNT & Routine 12/30/2019 4:06 Result s for this AUTO DIFFERENTIAL AM SCIENTIFIC SOFTWARE ENGINEER procedure are in the results section. POCT-GLUCOSE METER Routine 12/29/2019 9:56 Resul ts for this PM SCIENTIFIC SOFTWARE ENGINEER procedure are i n the results section. MAGNESIUM Routine 12/29/2019 9:54 Results for this PM SCIENTIFIC SOFTWARE ENGINEER procedure are i n the results section. POTASSIUM Routine 12/29/2019 9:54 Results for this PM SCIENTIFIC SOFTWARE ENGINEER procedure are i n the results section. POCT-GLUCOSE METER Routine 12/29/2019 6:13 Resul ts for this PM SCIENTIFIC SOFTWARE ENGINEER procedure are i n the results section. POCT-GLUCOSE METER Routine 12/29/2019 12:15 Resul ts for this PM SCIENTIFIC SOFTWARE ENGINEER procedure are i n the results section. APTT Routine 12/29/2019 4:22 Results for this AM SCIENTIFIC SOFTWARE ENGINEER procedure are i n the results section. CBC W/PLT COUNT & Routine 12/29/2019 4:21 Result s for this AUTO DIFFERENTIAL AM SCIENTIFIC SOFTWARE ENGINEER procedure are in the results section. B-TYPE NATRIURETIC Routine 12/29/2019 4:21 Resul ts for this FACTOR (BNP) AM SCIENTIFIC SOFTWARE ENGINEER procedure are i n the results section. PHOSPHORUS Routine 12/29/2019 4:21 Results for this AM SCIENTIFIC SOFTWARE ENGINEER procedure are i n the results section. COMPREHENSIVE Routine 12/29/2019 4:21 Results fo r this METABOLIC PANEL AM SCIENTIFIC SOFTWARE ENGINEER procedure ar e in the results section. CALCIUM, IONIZED Routine 12/29/2019 4:21 Results for this AM SCIENTIFIC SOFTWARE ENGINEER procedure are i n the results section. MAGNESIUM Routine 12/29/2019 4:21 Results for this AM SCIENTIFIC SOFTWARE ENGINEER procedure are i n the results section. CBC W/PLT COUNT & Routine 12/29/2019 4:21 Result s for this AUTO DIFFERENTIAL AM SCIENTIFIC SOFTWARE ENGINEER procedure are in the results section. POCT-GLUCOSE METER Routine 12/29/2019 12:38 Resul ts for this AM SCIENTIFIC SOFTWARE ENGINEER procedure are i n the results section. POTASSIUM Routine 12/29/2019 12:33 Results for this AM SCIENTIFIC SOFTWARE ENGINEER procedure are i n the results section. POCT-GLUCOSE METER Routine 12/28/2019 6:55 Resul ts for this PM SCIENTIFIC SOFTWARE ENGINEER procedure are i n the results section. TRANSFUSION SERVICE 12/28/2019 6:13 REPORT - SCAN PM SCIENTIFIC SOFTWARE ENGINEER APTT Routine 12/28/2019 5:08 Results for this PM SCIENTIFIC SOFTWARE ENGINEER procedure are i n the results section. BASIC METABOLIC Routine 12/28/2019 5:08 Results for this PANEL (7) PM SCIENTIFIC SOFTWARE ENGINEER procedure are i n the results section. APTT Routine 12/28/2019 12:29 Results for this PM SCIENTIFIC SOFTWARE ENGINEER procedure are i n the results section. POCT-GLUCOSE METER Routine 12/28/2019 12:10 Resul ts for this PM SCIENTIFIC SOFTWARE ENGINEER procedure are i n the results section. POCT-GLUCOSE METER Routine 12/28/2019 6:45 Resul ts for this AM SCIENTIFIC SOFTWARE ENGINEER procedure are i n the results section. CBC W/PLT COUNT & Routine 12/28/2019 4:35 Result s for this AUTO DIFFERENTIAL AM SCIENTIFIC SOFTWARE ENGINEER procedure are in the results section. BLOOD GAS, ARTERIAL Routine 12/28/2019 4:35 Resu lts for this AM SCIENTIFIC SOFTWARE ENGINEER procedure are i n the results section. APTT Routine 12/28/2019 4:35 Results for this AM SCIENTIFIC SOFTWARE ENGINEER procedure are i n the results section. PHOSPHORUS Routine 12/28/2019 4:35 Results for this AM SCIENTIFIC SOFTWARE ENGINEER procedure are i n the results section. COMPREHENSIVE Routine 12/28/2019 4:35 Results fo r this METABOLIC PANEL AM SCIENTIFIC SOFTWARE ENGINEER procedure ar e in the results section. CALCIUM, IONIZED Routine 12/28/2019 4:35 Results for this AM SCIENTIFIC SOFTWARE ENGINEER procedure are i n the results section. MAGNESIUM Routine 12/28/2019 4:35 Results for this AM SCIENTIFIC SOFTWARE ENGINEER procedure are i n the results section. CBC W/PLT COUNT & Routine 12/28/2019 4:35 Result s for this AUTO DIFFERENTIAL AM SCIENTIFIC SOFTWARE ENGINEER procedure are in the results section. XR CHEST 1 VIEW Routine 12/28/2019 4:16 Results for this PORTABLE/BEDSIDE AM SCIENTIFIC SOFTWARE ENGINEER procedure a re in the results section. POCT-GLUCOSE METER Routine 12/28/2019 12:01 Resul ts for this AM SCIENTIFIC SOFTWARE ENGINEER procedure are i n the results section. PREPARE STAT 12/27/2019 11:54 Results for this LEUKO-REDUCED RBC PM SCIENTIFIC SOFTWARE ENGINEER procedure are in the results section. POTASSIUM Routine 12/27/2019 11:14 Results for this PM SCIENTIFIC SOFTWARE ENGINEER procedure are i n the results section. MAGNESIUM Routine 12/27/2019 11:14 Results for this PM SCIENTIFIC SOFTWARE ENGINEER procedure are i n the results section. POCT-GLUCOSE METER Routine 12/27/2019 6:23 Resul ts for this PM SCIENTIFIC SOFTWARE ENGINEER procedure are i n the results section. TRANSFUSION SERVICE 12/27/2019 5:51 REPORT - SCAN PM SCIENTIFIC SOFTWARE ENGINEER CBC W/PLT COUNT & Routine 12/27/2019 5:45 Result s for this AUTO DIFFERENTIAL PM SCIENTIFIC SOFTWARE ENGINEER procedure are in the results section. CBC W/PLT COUNT & Routine 12/27/2019 5:45 Result s for this AUTO DIFFERENTIAL PM SCIENTIFIC SOFTWARE ENGINEER procedure are in the results section. MAGNESIUM Routine 12/27/2019 3:14 Results for this PM SCIENTIFIC SOFTWARE ENGINEER procedure are i n the results section. POTASSIUM Routine 12/27/2019 3:14 Results for this PM SCIENTIFIC SOFTWARE ENGINEER procedure are i n the results section. POCT-GLUCOSE METER Routine 12/27/2019 2:07 Resul ts for this PM SCIENTIFIC SOFTWARE ENGINEER procedure are i n the results section. ECG 12-LEAD Routine 12/27/2019 10:26 AM SCIENTIFIC SOFTWARE ENGINEER Procedure Note - Interface, External Ris In - 12/27/2019 10:33 AM SCIENTIFIC SOFTWARE ENGINEER Ventricular Rate 59 BPM Atrial Rate 85 BPM QRS Duration 196 ms Q-T Interval 514 ms QTC Calculation(Bazett) 508 ms R [place] 255 degrees T [place] 55 degrees Suspect arm lead reversal , [...] Routine 12/27/2019 10:26 Results for this AM SCIENTIFIC SOFTWARE ENGINEER procedure are i n the results section. PREPARE LEUKO-REDUCED STAT 12/27/2019 7:27 Re sults for this RBC AM SCIENTIFIC SOFTWARE ENGINEER procedure are i n the results section. POCT-GLUCOSE METER Routine 12/27/2019 6:35 Resul ts for this AM SCIENTIFIC SOFTWARE ENGINEER procedure are i n the results section. CBC W/PLT COUNT & AUTO Routine 12/27/2019 4:21 R esults for this DIFFERENTIAL AM SCIENTIFIC SOFTWARE ENGINEER procedure are i n the results section. HEMOGLOBIN AND Routine 12/27/2019 4:21 Results f or this HEMATOCRIT AM SCIENTIFIC SOFTWARE ENGINEER procedure are i n the results section. APTT Routine 12/27/2019 4:21 Results for this AM SCIENTIFIC SOFTWARE ENGINEER procedure are i n the results section. MAGNESIUM Routine 12/27/2019 4:21 Results for this AM SCIENTIFIC SOFTWARE ENGINEER procedure are i n the results section. CBC W/PLT COUNT & AUTO Routine 12/27/2019 4:21 R esults for this DIFFERENTIAL AM SCIENTIFIC SOFTWARE ENGINEER procedure are i n the results section. BASIC METABOLIC PANEL Routine 12/27/2019 4:21 Re sults for this (7) AM SCIENTIFIC SOFTWARE ENGINEER procedure are i n the results section. BLOOD GAS, ARTERIAL Routine 12/27/2019 4:16 Resu lts for this AM SCIENTIFIC SOFTWARE ENGINEER procedure are i n the results section. XR CHEST 1 VIEW Routine 12/27/2019 3:28 Results for this PORTABLE/BEDSIDE AM SCIENTIFIC SOFTWARE ENGINEER procedure a re in the results section. POTASSIUM Routine 12/26/2019 11:59 Results for this PM SCIENTIFIC SOFTWARE ENGINEER procedure are i n the results section. HEMOGLOBIN AND Routine 12/26/2019 11:59 Results f or this HEMATOCRIT PM SCIENTIFIC SOFTWARE ENGINEER procedure are i n the results section. POCT-GLUCOSE METER Routine 12/26/2019 11:57 Resul ts for this PM SCIENTIFIC SOFTWARE ENGINEER procedure are i n the results section. APTT Routine 12/26/2019 10:22 Results for this PM SCIENTIFIC SOFTWARE ENGINEER procedure are i n the results section. POCT-GLUCOSE METER Routine 12/26/2019 5:21 Resul ts for this PM SCIENTIFIC SOFTWARE ENGINEER procedure are i n the results section. MAGNESIUM Routine 12/26/2019 5:16 Results for this PM SCIENTIFIC SOFTWARE ENGINEER procedure are i n the results section. POTASSIUM Routine 12/26/2019 5:16 Results for this PM SCIENTIFIC SOFTWARE ENGINEER procedure are i n the results section. HEMOGLOBIN AND Routine 12/26/2019 2:33 Results f or this HEMATOCRIT PM SCIENTIFIC SOFTWARE ENGINEER procedure are i n the results section. TRANSFUSE STAT 12/26/2019 1:49 LEUKO-REDUCED RED PM SCIENTIFIC SOFTWARE ENGINEER BLOOD CELLS POCT-GLUCOSE METER Routine 12/26/2019 1:20 Resul ts for this PM SCIENTIFIC SOFTWARE ENGINEER procedure are i n the results section. TYPE AND SCREEN, STAT 12/26/2019 9:03 Results for this AUTOMATED AM SCIENTIFIC SOFTWARE ENGINEER procedure are i n the results section. APTT Routine 12/26/2019 9:03 Results for this AM SCIENTIFIC SOFTWARE ENGINEER procedure are i n the results section. HEMOGLOBIN AND Routine 12/26/2019 7:59 Results f or this HEMATOCRIT AM SCIENTIFIC SOFTWARE ENGINEER procedure are i n the results section. POCT-GLUCOSE METER Routine 12/26/2019 6:18 Resul ts for this AM SCIENTIFIC SOFTWARE ENGINEER procedure are i n the results section. XR CHEST 1 VIEW Routine 12/26/2019 6:12 Results for this PORTABLE/BEDSIDE AM SCIENTIFIC SOFTWARE ENGINEER procedure a re in the results section. BLOOD GAS, ARTERIAL Routine 12/26/2019 4:03 Resu lts for this AM SCIENTIFIC SOFTWARE ENGINEER procedure are i n the results section. CBC W/PLT COUNT & AUTO Routine 12/26/2019 2:48 R esults for this DIFFERENTIAL AM SCIENTIFIC SOFTWARE ENGINEER procedure are i n the results section. APTT Routine 12/26/2019 2:48 Results for this AM SCIENTIFIC SOFTWARE ENGINEER procedure are i n the results section. MAGNESIUM Routine 12/26/2019 2:48 Results for this AM SCIENTIFIC SOFTWARE ENGINEER procedure are i n the results section. CBC W/PLT COUNT & AUTO Routine 12/26/2019 2:48 R esults for this DIFFERENTIAL AM SCIENTIFIC SOFTWARE ENGINEER procedure are i n the results section. BASIC METABOLIC PANEL Routine 12/26/2019 2:48 Re sults for this (7) AM SCIENTIFIC SOFTWARE ENGINEER procedure are i n the results section. POCT-GLUCOSE METER Routine 12/25/2019 11:49 Resul ts for this PM SCIENTIFIC SOFTWARE ENGINEER procedure are i n the results section. APTT Routine 12/25/2019 7:35 Results for this PM SCIENTIFIC SOFTWARE ENGINEER procedure are i n the results section. POCT-GLUCOSE METER Routine 12/25/2019 6:13 Resul ts for this PM SCIENTIFIC SOFTWARE ENGINEER procedure are i n the results section. SODIUM, RANDOM URINE Routine 12/25/2019 6:10 Res ults for this PM SCIENTIFIC SOFTWARE ENGINEER procedure are i n the results section. CREATININE, RANDOM Routine 12/25/2019 6:10 Resul ts for this URINE PM SCIENTIFIC SOFTWARE ENGINEER procedure are i n the results section. PROTEIN, RANDOM URINE Routine 12/25/2019 6:10 Re sults for this PM SCIENTIFIC SOFTWARE ENGINEER procedure are i n the results section. EOSINOPHIL SMEAR, Routine 12/25/2019 6:10 Result s for this URINE PM SCIENTIFIC SOFTWARE ENGINEER procedure are i n the results section. APTT Routine 12/25/2019 6:10 Results for this PM SCIENTIFIC SOFTWARE ENGINEER procedure are i n the results section. TRANSFUSION SERVICE 12/25/2019 5:51 REPORT - SCAN PM SCIENTIFIC SOFTWARE ENGINEER BLOOD CULTURE STAT 12/25/2019 1:24 Results fo r this PM SCIENTIFIC SOFTWARE ENGINEER procedure are i n the results section. BLOOD CULTURE STAT 12/25/2019 1:19 Results fo r this PM SCIENTIFIC SOFTWARE ENGINEER procedure are i n the results section. POCT-GLUCOSE METER Routine 12/25/2019 12:28 Resul ts for this PM SCIENTIFIC SOFTWARE ENGINEER procedure are i n the results section. APTT Routine 12/25/2019 12:07 Results for this PM SCIENTIFIC SOFTWARE ENGINEER procedure are i n the results section. POCT-GLUCOSE METER Routine 12/25/2019 6:46 Resul ts for this AM SCIENTIFIC SOFTWARE ENGINEER procedure are i n the results section. PHOSPHORUS Routine 12/25/2019 6:46 Results for this AM SCIENTIFIC SOFTWARE ENGINEER procedure are i n the results section. COMPREHENSIVE Routine 12/25/2019 6:46 Results fo r this METABOLIC PANEL AM SCIENTIFIC SOFTWARE ENGINEER procedure ar e in the results section. MAGNESIUM Routine 12/25/2019 6:46 Results for this AM SCIENTIFIC SOFTWARE ENGINEER procedure are i n the results section. US RENAL COMPLETE Routine 12/25/2019 6:31 Result s for this AM SCIENTIFIC SOFTWARE ENGINEER procedure are i n the results section. APTT Routine 12/25/2019 4:43 Results for this AM SCIENTIFIC SOFTWARE ENGINEER procedure are i n the results section. CBC W/PLT COUNT & AUTO Routine 12/25/2019 4:42 R esults for this DIFFERENTIAL AM SCIENTIFIC SOFTWARE ENGINEER procedure are i n the results section. COMPLEMENT COMPONENT Routine 12/25/2019 4:42 Res ults for this C4 AM SCIENTIFIC SOFTWARE ENGINEER procedure are i n the results section. COMPLEMENT COMPONENT Routine 12/25/2019 4:42 Res ults for this C3 AM SCIENTIFIC SOFTWARE ENGINEER procedure are i n the results section. CALCIUM, IONIZED Routine 12/25/2019 4:42 Results for this AM SCIENTIFIC SOFTWARE ENGINEER procedure are i n the results section. BLOOD GAS, ARTERIAL Routine 12/25/2019 4:42 Resu lts for this AM SCIENTIFIC SOFTWARE ENGINEER procedure are i n the results section. CBC W/PLT COUNT & AUTO Routine 12/25/2019 4:42 R esults for this DIFFERENTIAL AM SCIENTIFIC SOFTWARE ENGINEER procedure are i n the results section. XR CHEST 1 VIEW Routine 12/25/2019 2:59 Results for this PORTABLE/BEDSIDE AM SCIENTIFIC SOFTWARE ENGINEER procedure a re in the results section. POCT-GLUCOSE METER Routine 12/25/2019 1:15 Resul ts for this AM SCIENTIFIC SOFTWARE ENGINEER procedure are i n the results section. PREPARE LEUKO-REDUCED Routine 12/24/2019 11:54 Re sults for this RBC PM SCIENTIFIC SOFTWARE ENGINEER procedure are i n the results section. TRANSFUSION SERVICE 12/24/2019 5:52 REPORT - SCAN PM SCIENTIFIC SOFTWARE ENGINEER POCT-GLUCOSE METER Routine 12/24/2019 5:45 Resul ts for this PM SCIENTIFIC SOFTWARE ENGINEER procedure are i n the results section. EEG AWAKE AND DROWSY Routine 12/24/2019 3:37 Res ults for this PM SCIENTIFIC SOFTWARE ENGINEER procedure are i n the results section. SPUTUM CULTURE + GRAM Routine 12/24/2019 2:05 Re sults for this STAIN PM SCIENTIFIC SOFTWARE ENGINEER procedure are i n the results section. POCT-GLUCOSE METER Routine 12/24/2019 11:58 Resul ts for this AM SCIENTIFIC SOFTWARE ENGINEER procedure are i n the results section. XR CHEST 1 VIEW STAT 12/24/2019 9:50 Results for this PORTABLE/BEDSIDE AM SCIENTIFIC SOFTWARE ENGINEER procedure a re in the results section. CREATINE KINASE (CK) Add-On 12/24/2019 9:29 Res ults for this AM SCIENTIFIC SOFTWARE ENGINEER procedure are i n the results section. BASIC METABOLIC PANEL Routine 12/24/2019 9:29 Re sults for this (7) AM SCIENTIFIC SOFTWARE ENGINEER procedure are i n the results section. BLOOD CULTURE Routine 12/24/2019 9:29 Results fo r this AM SCIENTIFIC SOFTWARE ENGINEER procedure are i n the results section. BLOOD CULTURE Routine 12/24/2019 9:29 Results fo r this AM SCIENTIFIC SOFTWARE ENGINEER procedure are i n the results section. BLOOD GAS, ARTERIAL Routine 12/24/2019 7:34 Resu lts for this AM SCIENTIFIC SOFTWARE ENGINEER procedure are i n the results section. POCT-GLUCOSE METER Routine 12/24/2019 6:19 Resul ts for this AM SCIENTIFIC SOFTWARE ENGINEER procedure are i n the results section. CBC W/PLT COUNT & AUTO Routine 12/24/2019 3:24 R esults for this DIFFERENTIAL AM SCIENTIFIC SOFTWARE ENGINEER procedure are i n the results section. MAGNESIUM Routine 12/24/2019 3:24 Results for this AM SCIENTIFIC SOFTWARE ENGINEER procedure are i n the results section. CBC W/PLT COUNT & AUTO Routine 12/24/2019 3:24 R esults for this DIFFERENTIAL AM SCIENTIFIC SOFTWARE ENGINEER procedure are i n the results section. BASIC METABOLIC PANEL Routine 12/24/2019 3:24 Re sults for this (7) AM SCIENTIFIC SOFTWARE ENGINEER procedure are i n the results section. LACTIC ACID, ARTERIAL Routine 12/24/2019 3:24 Re sults for this AM SCIENTIFIC SOFTWARE ENGINEER procedure are i n the results section. APTT Routine 12/24/2019 2:30 Results for this AM SCIENTIFIC SOFTWARE ENGINEER procedure are i n the results section. POCT-GLUCOSE METER Routine 12/24/2019 12:10 Resul ts for this AM SCIENTIFIC SOFTWARE ENGINEER procedure are i n the results section. APTT Routine 12/23/2019 7:41 Results for this PM SCIENTIFIC SOFTWARE ENGINEER procedure are i n the results section. POCT-GLUCOSE METER Routine 12/23/2019 6:19 Resul ts for this PM SCIENTIFIC SOFTWARE ENGINEER procedure are i n the results section. P.E.T./CT WHOLE BODY Routine 12/23/2019 6:12 Res ults for this PI PM SCIENTIFIC SOFTWARE ENGINEER procedure are i n the results section. POCT-GLUCOSE METER Routine 12/23/2019 3:26 Resul ts for this PM SCIENTIFIC SOFTWARE ENGINEER procedure are i n the results section. POCT-GLUCOSE METER Routine 12/23/2019 1:45 Resul ts for this PM SCIENTIFIC SOFTWARE ENGINEER procedure are i n the results section. BLOOD GAS, ARTERIAL Routine 12/23/2019 1:41 Resu lts for this PM SCIENTIFIC SOFTWARE ENGINEER procedure are i n the results section. LACTIC ACID, ARTERIAL Routine 12/23/2019 1:38 Re sults for this PM SCIENTIFIC SOFTWARE ENGINEER procedure are i n the results section. HEMOGLOBIN AND Routine 12/23/2019 1:37 Results f or this HEMATOCRIT PM SCIENTIFIC SOFTWARE ENGINEER procedure are i n the results section. CORTISOL Routine 12/23/2019 1:37 Results for this PM SCIENTIFIC SOFTWARE ENGINEER procedure are i n the results section. APTT Routine 12/23/2019 1:37 Results for this PM SCIENTIFIC SOFTWARE ENGINEER procedure are i n the results section. RESPIRATORY PANEL SLHS Routine 12/23/2019 1:31 R esults for this PM SCIENTIFIC SOFTWARE ENGINEER procedure are i n the results section. MAGNESIUM Routine 12/23/2019 12:47 Results for this PM SCIENTIFIC SOFTWARE ENGINEER procedure are i n the results section. BASIC METABOLIC PANEL Routine 12/23/2019 12:47 Re sults for this (7) PM SCIENTIFIC SOFTWARE ENGINEER procedure are i n the results section. BLOOD CULTURE Routine 12/23/2019 10:51 Results fo r this AM SCIENTIFIC SOFTWARE ENGINEER procedure are i n the results section. CBC W/PLT COUNT & AUTO Routine 12/23/2019 10:35 R esults for this DIFFERENTIAL AM SCIENTIFIC SOFTWARE ENGINEER procedure are i n the results section. APTT Routine 12/23/2019 10:35 Results for this AM SCIENTIFIC SOFTWARE ENGINEER procedure are i n the results section. CBC W/PLT COUNT & AUTO Routine 12/23/2019 10:35 R esults for this DIFFERENTIAL AM SCIENTIFIC SOFTWARE ENGINEER procedure are i n the results section. BLOOD CULTURE Routine 12/23/2019 9:45 Results fo r this AM SCIENTIFIC SOFTWARE ENGINEER procedure are i n the results section. URINALYSIS W/ REFLEX STAT 12/23/2019 9:21 Res ults for this URINE CULTURE AM SCIENTIFIC SOFTWARE ENGINEER procedure are in the results section. TRANSFUSE Routine 12/23/2019 8:32 LEUKO-REDUCED RED AM SCIENTIFIC SOFTWARE ENGINEER BLOOD CELLS POCT-GLUCOSE METER Routine 12/23/2019 6:47 Resul ts for this AM SCIENTIFIC SOFTWARE ENGINEER procedure are i n the results section. BLOOD GAS, ARTERIAL STAT 12/23/2019 5:29 Resu lts for this AM SCIENTIFIC SOFTWARE ENGINEER procedure are i n the results section. TYPE AND SCREEN, Routine 12/23/2019 3:53 Results for this AUTOMATED AM SCIENTIFIC SOFTWARE ENGINEER procedure are i n the results section. CBC W/PLT COUNT & AUTO Routine 12/23/2019 2:31 R esults for this DIFFERENTIAL AM SCIENTIFIC SOFTWARE ENGINEER procedure are i n the results section. MAGNESIUM Routine 12/23/2019 2:31 Results for this AM SCIENTIFIC SOFTWARE ENGINEER procedure are i n the results section. CBC W/PLT COUNT & AUTO Routine 12/23/2019 2:31 R esults for this DIFFERENTIAL AM SCIENTIFIC SOFTWARE ENGINEER procedure are i n the results section. BASIC METABOLIC PANEL Routine 12/23/2019 2:31 Re sults for this (7) AM SCIENTIFIC SOFTWARE ENGINEER procedure are i n the results section. BLOOD GAS, ARTERIAL STAT 12/23/2019 2:25 Resu lts for this AM SCIENTIFIC SOFTWARE ENGINEER procedure are i n the results section. APTT Routine 12/23/2019 2:24 Results for this AM SCIENTIFIC SOFTWARE ENGINEER procedure are i n the results section. XR CHEST 1 VIEW STAT 12/23/2019 1:29 Results for this PORTABLE/BEDSIDE AM SCIENTIFIC SOFTWARE ENGINEER procedure a re in the results section. POCT-GLUCOSE METER Routine 12/23/2019 1:08 Resul ts for this AM SCIENTIFIC SOFTWARE ENGINEER procedure are i n the results section. BLOOD GAS, ARTERIAL STAT 12/23/2019 12:57 Resu lts for this AM [employer] procedure are i n the results section. POCT-GLUCOSE METER Routine 12/22/2019 11:30 Resul ts for this PM [employer] SOFTWARE [employer] procedure are i n the results section. POTASSIUM Routine 12/22/2019 6:14 Results for this PM [employer] procedure are i n the results section. APTT Routine 12/22/2019 6:14 Results for this PM [employer] procedure are i n the results section. POCT-GLUCOSE METER Routine 12/22/2019 6:12 Resul ts for this PM [employer] procedure are i n the results section. XR ABDOMEN / KUB 1 Routine 12/22/2019 3:03 Resul ts for this VIEW PM [employer] procedure are i n the results section. POCT-GLUCOSE METER Routine 12/22/2019 12:36 Resul ts for this PM [employer] procedure are i n the results section. POTASSIUM Routine 12/22/2019 12:06 Results for this PM [employer] procedure are i n the results section. MAGNESIUM Routine 12/22/2019 12:06 Results for this PM [employer] procedure are i n the results section. APTT Routine 12/22/2019 12:06 Results for this PM [employer] procedure are i n the results section. BLOOD CULTURE Routine 12/22/2019 10:28 Results fo r this AM [employer] procedure are i n the results section. B-TYPE NATRIURETIC Routine 12/22/2019 9:47 Resul ts for this FACTOR (BNP) AM [employer] procedure are i n the results section. BLOOD GAS, ARTERIAL Routine 12/22/2019 9:46 Resu lts for this AM [employer] procedure are i n the results section. BLOOD CULTURE Routine 12/22/2019 9:39 Results fo r this AM [employer] procedure are i n the results section. XR CHEST 1 VIEW STAT 12/22/2019 8:21 Results for this PORTABLE/BEDSIDE AM [employer] procedure a re in the results section. APTT Routine 12/22/2019 7:56 Results for this AM [employer] procedure are i n the results section. HEMOGLOBIN AND Routine 12/22/2019 7:56 Results f or this HEMATOCRIT AM [employer] procedure are i n the results section. POCT-GLUCOSE METER Routine 12/22/2019 6:10 Resul ts for this AM [employer] procedure are i n the results section. APTT Routine 12/22/2019 6:07 Results for this AM [employer] procedure are i n the results section. MAGNESIUM Routine 12/22/2019 4:59 Results for this AM [employer] procedure are i n the results section. BASIC METABOLIC PANEL Routine 12/22/2019 4:59 Re sults for this (7) AM [employer] procedure are i n the results section. CBC W/PLT COUNT & AUTO Routine 12/22/2019 3:03 R esults for this DIFFERENTIAL AM [employer] procedure are i n the results section. CBC W/PLT COUNT & AUTO Routine 12/22/2019 3:03 R esults for this DIFFERENTIAL AM [employer] procedure are i n the results section. POCT-GLUCOSE METER Routine 12/22/2019 12:02 Resul ts for this AM [employer] procedure are i n the results section. APTT Routine 12/21/2019 11:06 Results for this PM [employer] procedure are i n the results section. GLUCOSE PLEURAL FLUID Routine 12/21/2019 5:36 Acute respirato ry Results for this PM [employer] failure with procedure are i n hypoxia (HCC) the results section. PROTEIN, BODY FLUID Routine 12/21/2019 5:36 Resu lts for this PM [employer] procedure are i n the results section. LACTATE DEHYDROGENASE Routine 12/21/2019 5:36 Re sults for this (LDH), BODY FLUID PM [employer] procedure are in the results section. FUNGUS CULTURE + STAT 12/21/2019 5:36 Results for this SMEAR PM [employer] procedure are i n the results section. BODY FLUID CULTURE + STAT 12/21/2019 5:36 Res ults for this GRAM STAIN PM [employer] procedure are i n the results section. BODY FLUID CELL COUNT Routine 12/21/2019 5:36 Re sults for this WITH DIFFERENTIAL PM [employer] procedure are in the results section. US THORACENTESIS Routine 12/21/2019 4:52 Results for this PM [employer] procedure are i n the results section. PT/APTT Routine 12/21/2019 4:50 Results for this PM [employer] procedure are i n the results section. XR CHEST 1 VIEW STAT 12/21/2019 3:21 Results for this PORTABLE/BEDSIDE PM [employer] procedure a re in the results section. POCT-GLUCOSE METER Routine 12/21/2019 12:25 Resul ts for this PM [employer] procedure are i n the results section. PROTHROMBIN TIME/INR STAT Add-on 12/21/2019 10:51 Res ults for this AM [employer] procedure are i n the results section. PT/APTT Routine 12/21/2019 10:51 Results for this AM [employer] procedure are i n the results section. CBC W/PLT COUNT & AUTO Routine 12/21/2019 4:36 R esults for this DIFFERENTIAL AM [employer] procedure are i n the results section. APTT Routine 12/21/2019 4:36 Results for this AM [employer] procedure are i n the results section. CREATINE KINASE (CK) Routine 12/21/2019 4:36 Res ults for this AM [employer] procedure are i n the results section. MAGNESIUM Routine 12/21/2019 4:36 Results for this AM [employer] procedure are i n the results section. CBC W/PLT COUNT & AUTO Routine 12/21/2019 4:36 R esults for this DIFFERENTIAL AM [employer] procedure are i n the results section. BASIC METABOLIC PANEL Routine 12/21/2019 4:36 Re sults for this (7) AM [employer] procedure are i n the results section. POCT-GLUCOSE METER Routine 12/20/2019 11:27 Resul ts for this PM [employer] procedure are i n the results section. BLOOD GAS, ARTERIAL Routine 12/20/2019 9:09 Resu lts for this PM [employer] procedure are i n the results section. POCT-GLUCOSE METER Routine 12/20/2019 6:24 Resul ts for this PM [employer] procedure are i n the results section. APTT Routine 12/20/2019 4:50 Results for this PM [employer] procedure are i n the results section. BLOOD CULTURE Routine 12/20/2019 1:13 Results fo r this PM [employer] procedure are i n the results section. POCT-GLUCOSE METER Routine 12/20/2019 11:59 Resul ts for this AM [employer] procedure are i n the results section. APTT Routine 12/20/2019 10:51 Results for this AM [employer] procedure are i n the results section. BLOOD CULTURE Routine 12/20/2019 10:47 Results fo r this IDENTIFICATION PANEL AM [employer] SOFTWARE [employer]INE[employer] procedu re are in the results section. BLOOD CULTURE Routine 12/20/2019 10:47 Results fo r this AM [employer] procedure are i n the results section. BLOOD GAS, ARTERIAL Routine 12/20/2019 9:57 Resu lts for this AM [employer] procedure are i n the results section. POCT-GLUCOSE METER Routine 12/20/2019 5:41 Resul ts for this AM [employer] procedure are i n the results section. CBC W/PLT COUNT & AUTO Routine 12/20/2019 3:43 R esults for this DIFFERENTIAL AM [employer] procedure are i n the results section. APTT Routine 12/20/2019 3:43 Results for this AM [employer] procedure are i n the results section. MAGNESIUM Routine 12/20/2019 3:43 Results for this AM [employer] procedure are i n the results section. CBC W/PLT COUNT & AUTO Routine 12/20/2019 3:43 R esults for this DIFFERENTIAL AM [employer] procedure are i n the results section. BASIC METABOLIC PANEL Routine 12/20/2019 3:43 Re sults for this (7) AM [employer] procedure are i n the results section. POCT-GLUCOSE METER Routine 12/19/2019 11:13 Resul ts for this PM [employer] procedure are i n the results section. APTT Routine 12/19/2019 8:55 Results for this PM [employer] procedure are i n the results section. APTT Routine 12/19/2019 1:07 Results for this PM [employer] procedure are i n the results section. POCT-GLUCOSE METER Routine 12/19/2019 12:00 Resul ts for this PM [employer] procedure are i n the results section. XR CHEST 1 VIEW OLGA 12/19/2019 10:44 Results for this PORTABLE/BEDSIDE AM [employer]INE[employer] procedure a re in the results section. APTT Routine 12/19/2019 6:18 Results for this AM [employer] procedure are i n the results section. MAGNESIUM Routine 12/19/2019 6:18 Results for this AM [employer] procedure are i n the results section. BASIC METABOLIC PANEL Routine 12/19/2019 6:18 Re sults for this (7) AM [employer] procedure are i n the results section. CBC W/PLT COUNT & AUTO Routine 12/19/2019 5:15 R esults for this DIFFERENTIAL AM [employer] procedure are i n the results section. CBC W/PLT COUNT & AUTO Routine 12/19/2019 5:15 R esults for this DIFFERENTIAL AM [employer] procedure are i n the results section. APTT Routine 12/19/2019 12:23 Results for this AM [employer] procedure are i n the results section. 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 POTASSIUM Routine 12/18/2019 5:39 Results for this PM [employer] procedure are i n the results section. MAGNESIUM Routine 12/18/2019 5:39 Results for this PM [employer] procedure are i n the results section. BLOOD CULTURE Routine 12/18/2019 1:15 Results fo r this PM [employer] procedure are i n the results section. BLOOD CULTURE Routine 12/18/2019 12:57 Results fo r this PM [employer] procedure are i n the results section. POTASSIUM Routine 12/18/2019 11:12 Results for this AM [employer]INE[employer] procedure are i n the results section. MAGNESIUM Routine 12/18/2019 11:12 Results for this AM [employer] procedure are i n the results section. APTT Routine 12/18/2019 10:30 Results for this AM [employer]INE[employer] procedure are i n the results section. CBC W/PLT COUNT & AUTO Routine 12/18/2019 4:22 R esults for this DIFFERENTIAL AM [employer] procedure are i n the results section. MAGNESIUM Routine 12/18/2019 4:22 Results for this AM [employer] SOFTWARE [employer] procedure are i n the results section. CBC W/PLT COUNT & AUTO Routine 12/18/2019 4:22 R esults for this DIFFERENTIAL AM [employer] procedure are i n the results section. BASIC METABOLIC PANEL Routine 12/18/2019 4:22 Re sults for this (7) AM [employer] procedure are i n the results section. HEMOGLOBIN A1C Routine 12/18/2019 4:22 Results f or this AM [employer] procedure are i n the results section. ECHOCARDIOGRAM REPORT 12/17/2019 9:22 - SCAN PM [employer] SOFTWARE ENGINEER VENOUS DOPPLER ARM, OLGA 12/17/2019 8:10 Resu lts for this LEFT PM [employer] ENGINEER procedure are i n the results section. TRANSFUSION SERVICE 12/17/2019 6:02 REPORT - SCAN PM [employer] SOFTWARE ENGINEER BLOOD CULTURE Routine 12/17/2019 3:00 Results fo r this PM [employer] procedure are i n the results section. BLOOD CULTURE Routine 12/17/2019 3:00 Results fo r this PM [employer] SOFTWARE [employer] procedure are i n the results section. VANCOMYCIN LEVEL, Timed 12/17/2019 2:00 Result s for this TROUGH PM [employer] procedure are i n the results section. CT ABDOMEN/PELVIS Routine 12/17/2019 11:15 Result s for this WITHOUT IV CONTRAST AM [employer]INE[employer] procedur e are in the results section. CT CHEST WITHOUT IV Routine 12/17/2019 11:15 Resu lts for this CONTRAST AM [employer]INE[employer] procedure are i n the results section. CT BRAIN WITHOUT IV Routine 12/17/2019 11:15 Resu lts for this CONTRAST AM [employer] procedure are i n the results section. LIMITED 2D STAT 12/17/2019 8:25 Results for this ECHOCARDIOGRAM AM [employer] SOFTWARE [employer]INEER procedure are in the results section. XR CHEST 1 VIEW Routine 12/17/2019 5:24 Results for this PORTABLE/BEDSIDE AM [employer] SOFTWARE [employer]INE[employer] procedure a re in the results section. CBC W/PLT COUNT & AUTO Routine 12/17/2019 3:09 R esults for this DIFFERENTIAL AM [employer] procedure are i n the results section. VITAMIN B12 AND FOLATE Routine 12/17/2019 3:09 R esults for this AM [employer] procedure are i n the results section. RETICULOCYTE COUNT Routine 12/17/2019 3:09 Resul ts for this AM [employer] procedure are i n the results section. IRON, TIBC, % SAT. Routine 12/17/2019 3:09 Resul ts for this (WITHOUT FERRITIN) AM [employer] procedure are in the results section. FERRITIN Routine 12/17/2019 3:09 Results for this AM [employer] procedure are i n the results section. LACTIC ACID, VENOUS Routine 12/17/2019 3:09 Resu lts for this AM [employer] procedure are i n the results section. TSH/FREE T4 IF Routine 12/17/2019 3:09 Results f or this INDICATED AM [employer] procedure are i n the results section. BLOOD GAS, ARTERIAL Routine 12/17/2019 3:09 Resu lts for this AM [employer] procedure are i n the results section. MAGNESIUM Routine 12/17/2019 3:09 Results for this AM [employer] procedure are i n the results section. CBC W/PLT COUNT & AUTO Routine 12/17/2019 3:09 R esults for this DIFFERENTIAL AM [employer] procedure are i n the results section. BASIC METABOLIC PANEL Routine 12/17/2019 3:09 Re sults for this (7) AM [employer] procedure are i n the results section. PROTHROMBIN TIME/INR Routine 12/17/2019 3:09 Res ults for this AM [employer] procedure are i n the results section. HEPATIC FUNCTION PANEL Routine 12/17/2019 3:09 R esults for this AM [employer] ENG[employer] procedure are i n the results section. CORTISOL Routine 12/16/2019 11:34 Results for this PM [employer] procedure are i n the results section. VANCOMYCIN LEVEL, Timed 12/16/2019 8:15 Result s for this TROUGH PM [employer] procedure are i n the results section. MAGNESIUM Routine 12/16/2019 8:15 Results for this PM [employer]INE[employer] procedure are i n the results section. BASIC METABOLIC PANEL Routine 12/16/2019 8:15 Re sults for this (7) PM [employer] procedure are i n the results section. POCT-GLUCOSE METER Routine 12/16/2019 6:20 Resul ts for this PM [employer] procedure are i n the results section. TRANSFUSION SERVICE 12/16/2019 5:50 REPORT - SCAN PM [employer] SOFTWARE ENGINEER BLOOD CULTURE Routine 12/16/2019 3:54 Results fo r this PM [employer]INE[employer] procedure are i n the results section. BLOOD CULTURE Routine 12/16/2019 3:34 Results fo r this PM [employer] procedure are i n the results section. XR CHEST 1 VIEW STAT 12/16/2019 3:24 Results for this PORTABLE/BEDSIDE PM [employer]INE[employer] procedure a re in the results section. PT/APTT STAT 12/16/2019 2:38 Results for this PM [employer] procedure are i n the results section. AMMONIA Routine 12/16/2019 2:38 Results for this PM [employer]INE[employer] procedure are i n the results section. PHOSPHORUS STAT 12/16/2019 2:33 Results for this PM [employer] procedure are i n the results section. COMPREHENSIVE Routine 12/16/2019 2:33 Results fo r this METABOLIC PANEL PM [employer] procedure ar e in the results section. HGB/HCT (H&H) - STAT STAT 12/16/2019 2:31 Res ults for this LAB PM [employer] procedure are i n the results section. GLUCOSE-STAT LAB STAT 12/16/2019 2:31 Results for this PM [employer]INE[employer] procedure are i n the results section. POTASSIUM-STAT LAB STAT 12/16/2019 2:31 Resul ts for this PM [employer]INE[employer] procedure are i n the results section. SODIUM NA-STAT LAB STAT 12/16/2019 2:31 Resul ts for this PM [employer]INE[employer] procedure are i n the results section. BLOOD GAS, ARTERIAL STAT 12/16/2019 2:31 Resu lts for this PM [employer] procedure are i n the results section. RRL CRITICAL LABS STAT 12/16/2019 2:31 Result s for this (ABG,NA,K,H&H,GLUCOSE) PM [employer]INE[employer] proce dure are in the results section. LACTIC ACID, ARTERIAL Routine 12/16/2019 2:26 Re sults for this PM [employer] procedure are i n the results section. MAGNESIUM STAT 12/16/2019 2:18 Results for this PM [employer] procedure are i n the results section. CBC (HEMOGRAM ONLY) STAT 12/16/2019 2:18 Resu lts for this PM [employer] procedure are i n the results section. PROTHROMBIN TIME/INR Routine 12/16/2019 2:18 Res ults for this PM [employer] procedure are i n the results section. CALCIUM, IONIZED STAT 12/16/2019 2:16 Results for this PM [employer] procedure are i n the results section. PREPARE LEUKO-REDUCED Routine 12/16/2019 2:01 Re sults for this RBC PM [employer] procedure are i n the results section. HGB/HCT (H&H) - STAT STAT 12/16/2019 12:25 Res ults for this LAB PM [employer] procedure are i n the results section. GLUCOSE-STAT LAB STAT 12/16/2019 12:25 Results for this PM [employer] procedure are i n the results section. POTASSIUM-STAT LAB STAT 12/16/2019 12:25 Resul ts for this PM [employer] procedure are i n the results section. SODIUM NA-STAT LAB STAT 12/16/2019 12:25 Resul ts for this PM [employer]INE[employer] procedure are i n the results section. BLOOD GAS, ARTERIAL STAT 12/16/2019 12:25 Resu lts for this PM [employer]INE[employer] procedure are i n the results section. RRL CRITICAL LABS STAT 12/16/2019 12:25 Result s for this (ABG,NA,K,H&H,GLUCOSE) PM [employer]INE[employer] proce dure are in the results section. SURGICALLY OBTAINED OLGA 12/16/2019 12:21 Resu lts for this CULTURE + GRAM STAIN PM [employer]INE[employer] procedu re are in the results section. FUNGUS CULTURE + OLGA 12/16/2019 12:21 Results for this SMEAR PM [employer]INE[employer] procedure are i n the results section. ANAEROBIC CULTURE OLGA 12/16/2019 12:21 Result s for this PM [employer] SOFTWARE ENGINEER procedure are i n the results section. AFB CULTURE + SMEAR OLGA 12/16/2019 12:21 Resu lts for this (NON-SPUTUM) PM [employer] SOFTWARE ENGINE[employer] procedure are i n the results section. HGB/HCT (H&H) - STAT STAT 12/16/2019 10:46 Res ults for this LAB AM [employer] procedure are i n the results section. GLUCOSE-STAT LAB STAT 12/16/2019 10:46 Results for this AM [employer] procedure are i n the results section. POTASSIUM-STAT LAB STAT 12/16/2019 10:46 Resul ts for this AM [employer] procedure are i n the results section. SODIUM NA-STAT LAB STAT 12/16/2019 10:46 Resul ts for this AM [employer] procedure are i n the results section. BLOOD GAS, ARTERIAL STAT 12/16/2019 10:46 Resu lts for this AM [employer] procedure are i n the results section. PROTHROMBIN TIME/INR STAT 12/16/2019 10:46 Res ults for this AM [employer] procedure are i n the results section. CALCIUM, IONIZED STAT 12/16/2019 10:46 Results for this AM [employer] procedure are i n the results section. RRL CRITICAL LABS STAT 12/16/2019 10:46 Result s for this (ABG,NA,K,H&H,GLUCOSE) AM [employer] proce dure are in the results section. PROTHROMBIN TIME/INR STAT 12/16/2019 7:40 Res ults for this AM [employer] SOFTWARE [employer]INE[employer] procedure are i n the results section. RUPERTO 12/16/2019 7:30 Illness AM [employer] SOFTWARE ENGINEER LASER EXTRACTION,LEAD 12/16/2019 7:30 Illness AM [employer] SOFTWARE ENGINEER MAGNESIUM Routine 12/16/2019 5:44 Results for this AM [employer] SOFTWARE ENGINEER procedure are i n the results section. HEPATIC FUNCTION PANEL Routine 12/16/2019 5:44 R esults for this AM [employer] SOFTWARE ENGINE[employer] procedure are i n the results section. BASIC METABOLIC PANEL Routine 12/16/2019 5:44 Re sults for this (7) AM [employer] procedure are i n the results section. POCT-GLUCOSE METER Routine 12/15/2019 9:24 Resul ts for this PM [employer]INE[employer] procedure are i n the results section. ECHOCARDIOGRAM REPORT 12/15/2019 9:23 - SCAN PM [employer] SOFTWARE ENGINEER BLOOD GAS, ARTERIAL Routine 12/15/2019 5:12 Resu lts for this PM [employer] SOFTWARE [employer]INE[employer] procedure are i n the results section. URINE CULTURE Routine 12/15/2019 5:10 Results fo r this PM [employer] ENGINE[employer] procedure are i n the results section. ABORH, MANUAL STAT 12/15/2019 5:09 Results fo r this PM [employer] procedure are i n the results section. POCT-GLUCOSE METER Routine 12/15/2019 5:06 Resul ts for this PM [employer] procedure are i n the results section. EEG AWAKE AND DROWSY Routine 12/15/2019 4:24 Res ults for this PM [employer] ENG[employer] procedure are i n the results section. 2D ECHO W/ DOPPLER STAT 12/15/2019 2:23 Resul ts for this (CW/PW/COLOR) PM [employer] procedure are in the results section. POCT-GLUCOSE METER Routine 12/15/2019 2:15 Resul ts for this PM [employer] ENG[employer] procedure are i n the results section. TYPE AND SCREEN, Routine 12/15/2019 2:10 Results for this AUTOMATED PM [employer] SOFTWARE ENGINE[employer] procedure are i n the results section. BLOOD CULTURE Routine 12/15/2019 2:10 Results fo r this IDENTIFICATION PANEL PM [employer] SOFTWARE [employer]INE[employer] procedu re are in the results section. BLOOD CULTURE Routine 12/15/2019 2:10 Results fo r this PM [employer]INE[employer] procedure are i n the results section. BLOOD CULTURE Routine 12/15/2019 2:10 Results fo r this PM [employer] SOFTWARE ENGINE[employer] procedure are i n the results section. ECG 12-LEAD Routine 12/15/2019 1:08 PM [employer]IFIC SOFTWARE ENGINEER Procedure Note - Interface, External Ris In - 12/15/2019 1:12 PM [employer] SOFTWARE ENGINEER Ventricular Rate 98 BPM Atrial Rate 98 BPM QRS Duration 166 ms Q-T Interval 482 ms QTC Calculation(Bazett) 615 ms P [place] 62 degrees R [place] 19 degrees T [place] 45 degrees Ventricular-paced rhythm Biventricular pacemaker dete cted Abnormal ECG No previous ECGs available ECG 12-LEAD OLGA 12/15/2019 1:08 PM [employer]IFIC SOFTWARE ENGINEER Resu lts for this procedure are i n the results section . POCT-GLUCOSE METER Routine 12/15/2019 7:41 AM [employer] SOFTWARE ENGINEER Results for this procedure are i n the results section . CBC W/PLT COUNT & AUTO Routine 12/15/2019 2:47 AM [employer] SOFTWARE ENGINEER Results for this DIFFERENTIAL procedure are i n the results section . LIPID PANEL Routine 12/15/2019 2:47 AM [employer] SOFTWARE ENGINEER Resu lts for this procedure are i n the results section . CBC W/PLT COUNT & AUTO Routine 12/15/2019 2:47 AM [employer] SOFTWARE ENGINEER Results for this DIFFERENTIAL procedure are i n the results section . PROTHROMBIN TIME/INR Routine 12/15/2019 2:47 AM [employer] SOFTWARE ENGINEER Results for this procedure are i n the results section . HEPATIC FUNCTION PANEL Routine 12/15/2019 2:47 AM [employer] SOFTWARE ENGINEER Results for this procedure are i n the results section . BASIC METABOLIC PANEL (7) Routine 12/15/2019 2:47 AM [employer]IFIC SOFTWARE ENGINEER Results for this procedure are i n the results section . after 07/08/2019 Results ARRYTHMIA IMPLANT REPORT - SCAN (02/01/2020 [...] (H)Comment: : TESTED 70 - 110 mg/dL [facility] AT [address], [id number]: Ice [employer] Vendor/[employer] Professor ID = [id number] for LISBET WATTERS Specimen Blood Performing Organization Address [facility] Hospital/Zipcode Phone Number [address] [phone] CENTER CBC (hemogram only) (01/27/2020 4:57 AM CDT)Only the most recent of10 results within the time period is included. WBC 4.4 3.5 - 10.5 K/L [facility] RBC 3.04 (L) 4.63 - 6.08 M/L [facility] Hemoglobin 8.2 (L) 13.7 - 17.5 GM/DL [facility] Hematocrit 29.4 (L) 40.1 - 51.0 % [facility] MCV 96.7 (H)Comment: Discordant 79.0 - 92.2 fL [facility] MCV results compared to MEDICAL CENTER previous results; clinical correlation required. MCH 27.0 25.7 - 32.2 pg [facility] MCHC 27.9 (L) 32.3 - 36.5 GM/DL [facility] RDW 16.1 (H) 11.6 - 14.4 % [facility] Platelets 199 150 - 450 K/CU MM [facility] MPV 9.2 (L) 9.4 - 12.4 fL [facility] nRBC 0 0 - 0 /100 WBC [facility] Specimen Blood Performing Organization Address City/[facility]/Zipcode Phone Number [facility] [address] [place] [address] CENTER Magnesium (01/27/2020 4:57 AM CDT)Only the most recent of28 resultswithin the time period is included. Magnesium 2.1 1.6 - 2.6 mg/dL [facility] Specimen Blood Narrative Performed At Ice Cream Vendor ID - PIAYA L [facility] Performing Organization Address City/[facility]/Zipcode Phone Number [address] [address] CENTER Basic Metabolic Panel (01/27/2020 4:57 AM CDT)Only the most recent of24 results within the time period is included. Sodium 148 (H) 136 - 145 meq/L [facility] Potassium 3.6 3.5 - 5.1 meq/L [facility] Chloride 119 (H) 98 - 107 meq/L [facility] CO2 24 22 - 29 meq/L [facility] BUN 23 (H) 7 - 21 mg/dL [facility] Creatinine 0.78 0.57 - 1.25 mg/dL [facility] Glucose 123 (H) 70 - 105 mg/dL [facility] Calcium 9.0 8.4 - 10.2 mg/dL [facility] EGFR 97Comment: ESTIMATED GFR IS mL/min/1.73 sq m [facility] NOT ACCURATE CREATININE [facility] CLEARANCE IN PREDICTING GLOMERULAR FILTRATION RATE. ESTIMATED GFR IS NOT APPLICABLE FOR DIALYSIS PATIENTS. Specimen Blood Narrative Performed At Ice Cream Vendor ID - PIAYA L [facility] MED ICAL [facility]ENTER Performing Organization Address City/State/Zipcode Phone Number [facility] [address] [place] [address] CENTER REPORT OF PROCEDURE - ENDOSCOPY URL (01/26/2020 [...] Troponin I <0.01 0.00 - 0.03 ng/mL [facility] Specimen Blood Narrative Performed At Troponin I (TnI) levels must be interpreted [facility] in the context of the [...] acidosis, acute neurological disease, and persistent tachyarrhythmia. Ice Cream Vendor ID - [id number] Performing Organization Address [facility]/Zipcode Phone Number [address] [address] CENTER CBC with platelet count + automated diff (01/25/2020 5:26 AM CDT)Only the most recent of18 resultswithin the time period is included. WBC 5.3 3.5 - 10.5 K/L [facility] RBC 3.23 (L) 4.63 - 6.08 M/L [facility] Hemoglobin 8.8 (L) 13.7 - 17.5 GM/DL [facility] Hematocrit 31.8 (L) 40.1 - 51.0 % [facility] MCV 98.5 (H) 79.0 - 92.2 fL [facility] MCH 27.2 25.7 - 32.2 pg [facility] MCHC 27.7 (L) 32.3 - 36.5 GM/DL [facility] RDW 16.7 (H) 11.6 - 14.4 % [facility] Platelets 251 150 - 450 K/CU MM [facility] MPV 9.7 9.4 - 12.4 fL [facility] nRBC 0 0 - 0 /100 WBC [facility] % Neutros 71 % [facility] % Lymphs 16 % [facility] % Monos 9 % [facility] % Eos 2 % [facility] % Baso 1 % [facility] # Neutros 3.76 1.78 - 5.38 K/L [facility] # Lymphs 0.85 (L) 1.32 - 3.57 K/L [facility] # Monos 0.49 0.30 - 0.82 K/L [facility] # Eos 0.11 0.04 - 0.54 K/L [facility] # Baso 0.04 0.01 - 0.08 K/L [facility] Immature Granulocytes-Relative 2 (H) 0 - 1 % C HI [facility] Specimen Blood Performing Organization Address City/State/Zipcode Phone Number [facility] [address] [place] [address] CENTER Creatine Kinase (CK) (01/25/2020 5:26 AM CDT)Only the most recent of5 results within the time period is included. Total CK 30 29 - 200 U/L [facility] CENTER Specimen Blood Narrative Performed At Ice Cream Vendor ID - ADAMARIS Berkowitz [facility] Performing Organization Address City/State/Zipcode Phone Number [facility] MEDICAL [address] [place] [address] CENTER XR chest 1 view portable / bedside (01/25/2020 12:23 AM CDT)Only the most recent of16 resultswithin the time period is included. Specimen Narrative Performed At FINAL REPORT GE RIS Chest one view. Clinical history: r/o ptx [...] Glucose 139 (H) 70 - 105 mg/dL [facility] Specimen Blood Narrative Performed At Ice Cream Vendor ID - [id number] [facility]AL [facility] Performing Organization Address City/State/Zipcode Phone Number [facility] MEDICAL [address] [place] [address] CENTER EKG 12 lead (01/24/2020 10:42 PM CDT)Only the most recent of4 resultswithin the time period is included. Specimen Narrative Performed At Ventricular Rate 77 BPM GE MUSE Atrial Rate 77 BPM P-R Interval 172 ms QRS Duration 164 ms Q-T Interval 446 ms QTC Calculation(Bazett) 504 ms P [place] 5 degrees R [place] 249 degrees T [place] 67 degrees Atrial-sensed ventricular-paced rhythm with occasional Premature ventricular complexes Abnormal ECG Confirmed by MD Stockton Roberto ([id number]) on 2019 3:29:51 PM Procedure Note Interface, External Ris In - 01/27/2020 3:29 PM CDT Ventricular Rate 77 BPM Atrial Rate 77 BPM P-R Interval 172 ms QRS Duration 164 ms Q-T Interval 446 ms QTC Calculation(Bazett) 504 ms P [place] 5 degrees R [place] 249 degrees T [place] 67 degrees Atrial-sensed ventricular-paced rhythm w ith occasional Premature ventricular complexes Abnormal ECG Confirmed by MD Stockton Roberto ([id number]) on 01/27/2020 3:29:51 PM Performing Organization Address City/[facility] Phone Number GE MUSE Limited 2D Echocardiogram (01/24/2020 7:00 PM CDT) Ejection Fraction [facility] ECHO HEAR TLAB [facility] Specimen Narrative Performed At Transthoracic Echocardiography Report (T TE) [facility] ECHO HEARTLAB [facility] Demographics Patient Name Renny CHAMBERLAIN of Study 01/24/2020 [id number] Gender Male Visit Number [id number] [id number] [id number] Room Number [id number] Number Date of Birth1945 Referring Physician Age74 year(s) Graphics Coordinator Abed Minh Jacquelyn blank Physician Fellow DEEP Rooney Procedure Type [...] to moderately reduced. Left pleural effusion appears ewdalypm-td-vteop in size. Signature Findings Left Ventricle Mild [...] Report (TTE) Demographics Patient Name RENE CHAMBERLAIN of Study 01/24/2020 Gen micky Male Visit Number [id number] Rac e Ariana berkowitz Number [id number] Number Date of 1945 Ref [...] 11-15mmHg . Left pleural eff usion appears efaivksi-ze-antuh in size. Performing Organization Address [facility] Centercotx Phone Number [facility] ECHO HEARTLAB MKCKESSON CPACS PT/aPTT (01/20/2020 4:49 AM CDT)Only the most recent of6 resultswithin the time period is included. Protime 15.9 (H) 11.9 - 14.2 seconds [facility] INR 1.3 <=5.9 [facility] PTT 33.6 22.5 - 36.0 seconds [facility] Specimen Blood Narrative Performed At [facility] 03/24/2019: PT Reference Range [facility] Change New: 11.9-14.2Previous: 11.7-14.7 RECOMMENDED COUMADIN/WARFARIN INR THERAPY RANGES STANDARD DOSE: 2.0-3.0Includes: PROPHYLAXIS for venous thrombosis, systemic embolization; TREATMENT for venous thrombosis and/or pulmonary embolus. HIGH RISK: Target INR is 2.5-3.5 for patients wiht mechanical heart valves. Performing Organization Address [facility] Centercotx Phone Number [address] [address] CENTER Hepatic function panel (01/20/2020 4:49 AM CDT)Only the most recent of6 results within the time period is included. Protein, Total 6.1 6.0 - 8.3 gm/dL [facility] Albumin 2.3 (L) 3.5 - 5.0 g/dL [facility] Total Bilirubin 0.4 0.2 - 1.2 mg/dL [facility] Bilirubin, Direct 0.3 0.1 - 0.5 mg/dL [facility] Alkaline Phosphatase 93 40 - 150 U/L [facility] AST 21 5 - 34 U/L [facility] ALT 23 6 - 55 U/L [facility] Specimen Blood Narrative Performed At Ice Cream Vendor ID - ADAMARIS M [facility]AL [facility] Performing Organization Address City/[facility]/Zipcode Phone Number [address] [address] CENTER aPTT (01/19/2020 12:22 PM CDT)Only the most recent of37 resultswithin the time period is included. PTT 53.1 (H) 22.5 - 36.0 seconds [facility] Specimen Blood Performing Organization Address City/[facility] Centercode Phone Number [address] chest without IV contrast (01/19/2020 10:53 AM CDT)Only the most recent of2 resultswithin the time period is included. Specimen Narrative Performed At FINAL REPORT [facility] CT Chest without contrast History: Pleural effusion [...] MD Report Verified Date/Time:01/19/2020 12:17:48 Reading Location: [facility] Mammo Reading Ro om Procedure Note Interface, [...] Verified Date/Time: 01/19/2020 1 2:17:48 Reading Location: [facility] Mammo Reading Ro om Performing Organization Address City/State/Zipcode Phone Number [facility] C-Reactive Protein (01/19/2020 4:59 AM CDT) CRP 9.08 (H) 0.00 - 0.50 mg/dL [facility] Specimen Blood Narrative Performed At Ice Cream Vendor ID - ADAMARIS Berkowitz [facility] Performing Organization Address City/[facility]/Zipcode Phone Number [facility] MED[facility] [address] [place] [address] CENTER US thoracentesis (01/18/2020 4:56 PM CDT)Only the most recent of2 resultswithin the time period is included. Specimen Narrative Performed At FINAL REPORT [employer] Exam:Ultrasound guided thoracentesis Clinical History:Left-sided Pleural Effusion Contact Representative: Cassidy Parra PA-C Supervising Physician: Jaylen Newton [...] MD Report Verified Date/Time:01/19/2020 12:40:39 Reading Location: [facility] P006J [facility] Reading Room Procedure Note Interface, External Ris In - 01/19/2020 12:42 PM CDT FINAL REPORT Exam: Ultrasound guided thoracentesis Clinical History: Left-sided Pleural Ef fusion Contact Representative: Cassidy Parra PA-C Supervising Physician: Jaylen Newton Consent: Benefits and risks were explai dacia to the patient who gave consent to the procedure. Complication: None Immediate Procedure: The patient was placed in [facility] lateral decubitus position. The left posterior [...] Verified Date/Time: 01/19/2020 1 2:40:39 Reading Location: [facility] P006J [facility] Reading Room Performing Organization Address City/[facility] Phone Number [facility] Blood Culture - Routine (Right Venipuncture) (01/18/2020 4:50 PM CDT)Only the most recent of19 resultswithin the time period is included. Result No growth in 5 days [facility] Specimen Blood Performing Organization Address [facility] Centercotx Phone Number [address] [address] CENTER Body fluid culture + gram stain (01/18/2020 4:21 PM CDT)Only the most recent of 2 resultswithin the time period is included. Result No growth [facility] Gram Stain Result <1+ WBCs [facility] Gram Stain Result No organisms seen [facility] Specimen Body Fluid Performing Organization Address [facility] Centercotx Phone Number [address] [address] CENTER Fungus culture + smear (01/18/2020 4:21 PM CDT)Only the most recent of3 resultswithin the time period is included. Result No fungus isolated in 28 days [facility] Fungus Smear No fungi seen [facility] Specimen Body Fluid Performing Organization Address City/[facility] Centercode Phone Number [facility] [address] [place] [address] CENTER Protein, Total, Pleural Fluid (01/18/2020 4:20 PM CDT) PROTEIN, TOTAL, PLEURAL FLUID 3.5 [facility] Specimen Body Fluid Performing Organization Address [facility]ercotx Phone Number [facility] [place] [address] [address] [facility] Lactate Dehydrogenase (LD), Pleural Fluid (01/18/2020 4:20 PM CDT) Lactate Dehydrogenase 134 See Note: U/L [facility] (LD), Pleural Fluid Comment: [facility] Reference Range: TRANSUDATE:<113 EXUDATE: >113 Specimen Body Fluid Narrative Performed At Performing Lab [facility] [employer] [id number] [place] [address] Winter Encinas MD, PhD, SUZETTE Performing Organization Address [facility] Phone Number [facility] [employer] [place] [address] [address] Glucose Pleural Fluid (01/18/2020 4:20 PM CDT)Only the most recent of2 results within the time period is included. Glucose, Pleural Fluid 99 mg/dL [facility] Comment: [facility]POR[facility] Reference range approximates that found in serum . Specimen Body Fluid Narrative Performed At Performing Lab [facility] [employer] [address] [place] [address] Winter Encinas MD, PhD, SUZETTE Performing Organization Address [facility] Phone Number [facility] [employer] [place] [address] [facility] [address] Body fluid cell count with differential (01/18/2020 4:20 PM CDT)Only the most recent of2 resultswithin the time period is included. Appearance Slightly Cloudy (A) Clear [facility] Color Anitha (A) Colorless, Straw [facility] H [facility] RBCs 29,000 (H) <=1 /cu mm [facility] Adjusted WBC Count 901 (H) <=5 /cu mm [facility] Lining Cells 9 (H) <=1 /cu mm [facility] % Segs 55 % [facility] % Lymphs 27 % [facility] % Monos 18 % [facility] % Eos 0 % [facility] % Baso 0 % [facility] Container Body Fluid EDTA Tube [facility] Specimen Body Fluid Performing Organization Address City/State/Zipcode Phone Number [address] [address] CENTER Cytology (01/18/2020 4:20 PM CDT) Case Report Medical Cytology Report Case: [id number] [facility] Authorizing Provider:Sara Farfan MD Collected: 01/18/2020 04:20 PM [facility] Ordering Location: [address]:01/19/2020 09:12 AM Pathologist: Samra Coley MD Specimen:Pleural, Left DIAGNOSIS PLEURAL, LEFT, FLUID (CYTOSPINS): [facility] - NEGATIVE FOR MALIGNANCY [facility] - INCREASED NEUTROPHILS PRESENT Signing Pathologist Direct Phone Line: CPT Code(s) 18294 [facility] CLINICAL DATA Left pleural effusion; [facility] admitted on 01/17/2020 w/ [facility] CENTER history of HTN, HLD, CAD, obesity, SSS (pacemaker dependent), chronic HFrEF s/p Bi-V ICD (upgrade 2014) who presents from [facility] after aspiration event and for replacement of his pacemaker SPECIMEN SOURCE LEFT PLEURAL FLUID [facility] ER GROSS DESCRIPTION Received 800 ml brown fluid [facility] Prepared 4 cytospins [facility] Collected: [id number] Received: 850360 STATEMENT OF ADEQUACY Satisfactory [facility] Gross assessment was [facility] C HI [facility] performed at [place], Department of [facility], [address] [place] [address], Technical component was [facility] performed at [place], Department of [facility] Pathology, [address] [place] [address], Professional component was [facility] performed at [place], Department of [facility] Pathology, [address] [place] [address], Specimen Body Fluid Performing Organization Address City/[facility] Centercode Phone Number [address] [address] [place] Lactate dehydrogenase (LDH) (01/18/2020 4:10 AM CDT) LDH 145 125 - 220 U/L [facility] Specimen Blood Narrative Performed At Ice Cream Vendor ID - ADAMARIS M [facility] Performing Organization Address City/[facility] Centercode Phone Number [address] [address] [place] Platelet count (01/17/2020 9:22 PM CDT) Platelets 168 150 - 450 K/CU MM [facility] Specimen Blood Narrative Performed At Ice Cream Vendor ID - [id number] [facility] Performing Organization Address [facility]/Zipcode Phone Number [address] [address] CENTER Calcium, Ionized (12/30/2019 4:06 AM [employer]INE[employer])Only the most recent of6 resultswithin the time period is included. Calcium, Ion 1.24 1.12 - 1.27 mmol/L [facility] pH, Blood 7.53 [facility] Specimen Blood Performing Organization Address City/[facility]/Zipcode Phone Number [address] [address] CENTER Phosphorus (12/30/2019 4:06 AM SCIENTIFIC SOFTWARE ENGINEER)Only the most recent of5 resultswithin the time period is included. Phosphorus 2.9 2.3 - 4.7 mg/dL [facility] Specimen Blood Narrative Performed At Ice Cream Vendor ID - TRAN [place] [facility]ENTER Performing Organization Address City/State/Zipcode Phone Number [address] [address] CENTER Comprehensive metabolic panel (12/30/2019 4:06 AM SCIENTIFIC SOFTWARE ENGINEER)Only the most recent of5 resultswithin the time period is included. Protein, Total 6.1 6.0 - 8.3 gm/dL [facility] ER Albumin 2.0 (L) 3.5 - 5.0 g/dL [facility] ER Alkaline Phosphatase 95 40 - 150 U/L [facility] Total Bilirubin 0.5 0.2 - 1.2 mg/dL [facility] Sodium 151 (H) 136 - 145 meq/L [facility] ER Potassium 3.6 3.5 - 5.1 meq/L [facility] ER Chloride 113 (H) 98 - 107 meq/L [facility] ER CO2 30 (H) 22 - 29 meq/L [facility] ER BUN 55 (H) 7 - 21 mg/dL [facility] ER Creatinine 1.40 (H) 0.57 - 1.25 mg/dL [facility] ER Glucose 151 (H) 70 - 105 mg/dL [facility] ER Calcium 9.4 8.4 - 10.2 mg/dL [facility] H [facility] ER AST 38 (H) 5 - 34 U/L [facility] ER ALT 30 6 - 55 U/L [facility] ER EGFR 49Comment: ESTIMATED GFR mL/min/1.[address] [facility] IS NOT ACCURATE [facility] CREATININE CLEARANCE IN PREDICTING GLOMERULAR FILTRATION RATE. ESTIMATED GFR IS NOT APPLICABLE FOR DIALYSIS PATIENTS. Specimen Blood Narrative Performed At Ice Cream Vendor ID - TRAN W [facility] Performing Organization Address City/[facility]/Zipcode Phone Number [address] [address] CENTER Potassium (12/29/2019 9:54 PM SCIENTIFIC SOFTWARE ENGINEER)Only the most recent of10 resultswithin the time period is included. Potassium 3.5Comment: Specimen slightly 3.5 - 5.1 meq/L [facility] hemolyzed [facility] Specimen Blood Narrative Performed At Ice Cream Vendor ID - SANAANDRA L [facility] Performing Organization Address City/[facility] Centercode Phone Number [address] [address] CENTER B-type Natriuretic Factor (BNP) (12/29/2019 4:21 AM SCIENTIFIC SOFTWARE ENGINEER)Only the most recent of 2 resultswithin the time period is included. BNP 562 (H) 0 - 100 pg/mL [facility] Specimen Blood Narrative Performed At Ice Cream Vendor ID - TRAN W [facility] Performing Organization Address City/[facility]/Zipcode Phone Number [address] [address] [place] TRANSFUSION SERVICE REPORT - SCAN (12/28/2019 6:13 PM SCIENTIFIC SOFTWARE ENGINEER)Only the most recent of6 resultswithin the time period is included. Narrative Performed At This result has an attachment that is no t available. Blood gas, arterial (12/28/2019 4:35 AM SCIENTIFIC SOFTWARE ENGINEER)Only the most recent of17 results within the time period is included. pH, Arterial 7.54 (H) 7.35 - 7.45 [facility] pCO2, Arterial 36 35 - 45 mmHg [facility] pO2, Arterial 159 (H) 80 - 90 mmHg [facility] O2 Sat, Arterial 99.2 (H) 96.0 - 97.0 % [facility] HCO3, Arterial 30 (H) 21 - 29 mmol/L [facility] Base Excess, Arterial 7.0 (H) -2.0 - 3.0 mmol/L [facility] Patient Temperature 37.0 C [facility] FIO2 40.0 % [facility] Specimen Blood, Arterial Performing Organization Address City/[facility]/Zipcode Phone Number [address] [address] CENTER Prepare Leuko-Red RBC (12/27/2019 11:54 PM SCIENTIFIC SOFTWARE ENGINEER)Only the most recent of4 results within the time period is included. CROSSMATCH COMPATIBLE SAFETRACE TX Unit ABO O Pos SAFETRACE TX UNIT NUMBER [id number] SAFETRACE TX Status TX_TIMEINCHART SAFETRACE TX Blood Bank Product RED BLOOD CELLS SAFETRACE TX PRODUCT CODE [id number] [place] Specimen Other Performing Organization Address City/[facility]/Zipcode Phone Number SAFETRACE TX Hemoglobin and hematocrit (12/27/2019 4:21 AM SCIENTIFIC SOFTWARE ENGINEER)Only the most recent of6 resultswithin the time period is included. Hemoglobin 7.6 (L) 13.7 - 17.5 GM/DL [facility] Hematocrit 24.1 (L) 40.1 - 51.0 % [facility] Specimen Blood Narrative Performed At Ice Cream Vendor ID - [id number] [facility] Performing Organization Address [facility] Phone Number [address] [address] CENTER Transfuse Leuko-Red RBC (12/26/2019 1:49 PM SCIENTIFIC SOFTWARE ENGINEER)Only the most recent of4 resultswithin the time period is included.Type and screen, automated (12/26/2019 9:03 AM SCIENTIFIC SOFTWARE ENGINEER)Only the most recent of3 resultswithin the time period is included. ABO/RH AUTOMATED (BEAKER) O POSITIVE [facility] Ab Scrn NEGATIVE [facility] Specimen Blood Performing Organization Address [facility] Phone Number [address] [address] Sodium, random urine (12/25/2019 6:10 PM SCIENTIFIC SOFTWARE ENGINEER) Sodium Urine <20 meq/L [facility] Specimen Urine Narrative Performed At Reference Range: No Normals [facility] Ice Cream Vendor ID - KONRAD Performing Organization Address [facility] Phone Number [address] [address] CENTER Protein, random urine (12/25/2019 6:10 PM SCIENTIFIC SOFTWARE ENGINEER) Protein, Urine 22 (H) 0 - 14 mg/dL [facility] Specimen Urine Narrative Performed At Ice Cream Vendor ID - KONRAD [facility] Performing Organization Address [facility] Phone Number [address] [address] CENTER Creatinine, random urine (12/25/2019 6:10 PM SCIENTIFIC SOFTWARE ENGINEER) Creatinine, Ur 51.6 mg/dL [facility] Specimen Urine Narrative Performed At Reference Range: No Normals [facility] Ice Cream Vendor ID - KONRAD Performing Organization Address City/[facility]/Zipcode Phone Number [facility] [address] [place] [id number] [place] Eosinophil smear (12/25/2019 6:10 PM SCIENTIFIC SOFTWARE ENGINEER) Eosinophil Smear No EOS seen No EOS seen [facility] Specimen Urine Performing Organization Address City/[facility]/Zipcode Phone Number [address] [phone] [place] US renal complete (12/25/2019 6:31 AM SCIENTIFIC SOFTWARE ENGINEER) Specimen Narrative Performed At FINAL REPORT [facility] Comparison: CT of the abdomen and pelvis [...] MD Report Verified Date/Time:12/25/2019 10:05:41 Reading Location: [facility] B1 C013T [facility] Reading Room Procedure Note Interface, External Ris In - 12/25/2019 10:07 AM SCIENTIFIC SOFTWARE ENGINEER FINAL REPORT Comparison: CT of the abdomen [...] Verified Date/Time: 12/25/2019 1 0:05:41 Reading Location: [address] Reading Room Performing Organization Address City/[facility]/Zipcode Phone Number [facility] Complement Component C3 (12/25/2019 4:42 AM SCIENTIFIC SOFTWARE ENGINEER) C3 Complement 142 82 - 193 mg/dL [facility] Specimen Blood Narrative Performed At Ice Cream Vendor ID - [facility] Performing Organization Address City/[facility]/Zipcode Phone Number [address] [address] [place] Complement Component C4 (12/25/2019 4:42 AM SCIENTIFIC SOFTWARE ENGINEER) C4 Complement 28 15 - 57 mg/dL [facility] Specimen Blood Narrative Performed At Ice Cream Vendor ID [facility] Performing Organization Address [facility]/Zipcode Phone Number [address] [address] CENTER EEG AWAKE AND DROWSY (12/24/2019 3:37 PM SCIENTIFIC SOFTWARE ENGINEER) Specimen Narrative Performed At [facility] EEG REPORT GE RIS DATE(s) OF TEST: 12/16/2019 DATE OF REPORT: 12/16/2019 ACC: [id number] [id number] Start time/date: 15:16 Stop time/date: 15:37 ICD-10: R56.9 CPT Code: 36250 HISTORY:74 year old man with encepha lopathy, intubated, cooperative.He has an infected pacem eva pocket. MEDICATIONS THAT COULD AFFECT EEG: D ilaudid TECHNICAL SUMMARY: This is a digital video [...] FACFAHAD, FAAN, PHONG S Professor of Neurology, [facility] Medicine Director, [facility] e Epilepsy Center Head, [facility] Neuro[facility] Lab Procedure Note Interface, External Ris In - 12/24/2019 5:26 PM SCIENTIFIC SOFTWARE ENGINEER [facility] EEG REPORT DATE(s) OF TEST: 12/16/2019 DATE OF REPORT: 12/16/2019 ACC: [id number] [facility] [id number] Start time/date: 15:16 Stop time/date: 15:37 ICD-10: R56.9 CPT Code: 59348 HISTORY: 74 year old man with encephalo [...] repeat EEG. Stanley Jean-Baptiste M.D., FACNS, FAAN, PHONG S Professor of Neurology, [facility] Medicine Director, [facility] Epilepsy [place] Head, [facility] Neurophysiology Lab Performing Organization Address City/State/Zipcode Phone Number GE RIS Sputum Culture + Gram Stain (12/24/2019 2:05 PM SCIENTIFIC SOFTWARE ENGINEER) Result See comment [facility] Gram Stain Result 1+ WBCs [facility] Gram Stain Result 0-[address] [facility] Gram Stain Result <1+ gram positive cocci in [facility] Gram Stain Result <1+ budding yeast [facility] Gram Stain Result <1+ gram variable coccobacilli [facility] Specimen Sputum Narrative Performed At 1+ Yeast [facility] No Normal respiratory juan present Performing Organization Address City/State/Zipcode Phone Number [facility] [address] [place] [address] [place] Lactic Acid, Arterial (12/24/2019 3:24 AM SCIENTIFIC SOFTWARE ENGINEER)Only the most recent of3 results within the time period is included. Lactate, Art 1.9 0.5 - 2.2 mmol/L [facility] Specimen Blood, Arterial Narrative Performed At Ice Cream Vendor ID - SANAANDRA L [facility] ICAL [place] Performing Organization Address City/[facility]/Zipcode Phone Number [facility] [address] [place] [address] [place] NM PET/CT Whole Body Initial (12/23/2019 6:12 PM SCIENTIFIC SOFTWARE ENGINEER) Specimen Narrative Performed At FINAL REPORT [facility] PROCEDURE: FDG PET/CT for inflam mation CPT CODE:78482 INDICATION:FDG PET/CT was ob tained localize persistent [...] External Ris In - 12/23/2019 7:39 PM SCIENTIFIC SOFTWARE ENGINEER FINAL REPORT PROCEDURE: FDG PET/CT for inflammati on CPT CODE: 74220 INDICATION: FDG PET/CT was obtained localize persistent [...] 9:37:11 Performing Organization Address City/State/Zipcode Phone Number [facility] Cortisol (12/23/2019 1:37 PM SCIENTIFIC SOFTWARE ENGINEER)Only the most recent of2 resultswithin the time period is included. Cortisol, Total 22.9 (H) 3.7 - 19.4 ug/dL [facility] Specimen Blood Narrative Performed At Ice Cream Vendor ID - KARL M [facility] Performing Organization Address City/State/Zipcode Phone Number [place] [phone] [place] [address] CENTER Respiratory Panel [facility] (12/23/2019 1:31 PM SCIENTIFIC SOFTWARE ENGINEER) Human Metapneumovirus Not detected Not detected, [facility] Equivocal [facility] MEDICAL [facility] ER Rhinovirus Not detected Not detected, [facility] Equivocal [facility] MEDICAL [facility] ER Influenza A Not detected Not detected, [facility] Equivocal [facility] ER INFLUENZA A (NO SUBTYPE) [facility] ER Influenza A subtype H1 [facility] MED[facility] ER Influenza A [facility]type H3 [facility] MEDICAL [facility] ER Influenza A Subtype H1-2009 [facility] MEDICAL [facility] ER Influenza B Not detected Not detected, [facility] Equivocal [facility] MEDICAL [facility] ER Respiratory Syncytial Virus Not detected Not detected, [facility] Equivocal [facility] ER Parainfluenza Virus 1 Not detected Not detected, [facility] Equivocal [facility] Parainfluenza Virus 2 Not detected Not detected, [facility] Equivocal [facility] Parainfluenza virus 3 Not detected Not detected, [facility] Equ[employer]ocal [facility] Parainfluenza Virus 4 Not detected Not detected, [facility] Equ[employer]ocal [facility] Adenovirus Not detected Not detected, [facility] Equivocal [facility] Coronavirus 229E Not detected Not detected, [facility] Equivocal [facility] Coronavirus HKU1 Not detected Not detected, [facility] Equivocal [facility] Coronavirus NL63 Not detected Not detected, [facility] Equivocal [facility] Coronavirus OC43 Not detected Not detected, [facility] Equivocal [facility] Bordetella Pertussis Not detected Not detected, [facility] Equivocal [facility] Chlamydophila Pneumoniae Not detected Not detected, [facility] Equivocal [facility] Mycoplasma Pneumoniae Not detected Not detected, [facility] Equivocal [facility] Specimen Nasopharyngeal Narrative Performed At Other viruses and bacteria not targeted by [facility] this PCR panel cannot be excluded; therefore clinical correlation and follow up of serology, culture results, and other molecular studies is required. The results are not intended to be used as the sole means for clinical diagnosis or patient management decisions. This sample was tested at the [facility] Molecular Diagnostics Laboratory using the [employer] FilmArray Respiratory Panel. It is FDA cleared and has been verified and approved by the [facility] Molecular Diagnostics Laboratory for clinical use on nasopharyngeal swab specimens. The performance of the FilmArray RP has not been established in individuals who received influenza vaccine.Recent administration of a nasal influenza vaccine may cause false positive results for Influenza A and/or Influenza B. Performing Organization Address City/State/Zipcode Phone Number [facility] [address] [place] [address] CENTER Urinalysis w/Microscopic + Reflex to Culture (12/23/2019 9:21 AM SCIENTIFIC SOFTWARE ENGINEER) Color, UA Yellow [facility] Clarity, UA Clear [facility] Specific [place], UA 1.024 1.001 - 1.035 [facility] pH, UA 5.5 5.0 - 8.0 [facility] Protein, UA 20 mg/dL (A) Negative [facility] Glucose, UA Negative Negative [facility] Ketones, UA Negative Negative [facility] Bilirubin, UA Negative Negative [facility] Blood, UA Trace (A) Negative [facility] Nitrite, UA Negative Negative [facility] Leukocytes, UA Negative Negative [facility] Urobilinogen, UA 4.0 (H) 0.2 - 1.0 mg/dL [facility] RBC, UA 5 /HPF [facility] WBC, UA 2 /HPF [facility] Bacteria, UA Occasional [facility] Mucus Occasional [facility] Hyaline Casts, UA 1 /LPF [facility] Specimen Source [facility] Specimen Urine Narrative Performed At Ice Cream Vendor ID - [auto] [facility] Ice Cream Vendor ID - tech Performing Organization Address City/State/Zipcode Phone Number [facility] [address] [place] [address] CENTER XR abdomen / KUB 1 view (12/22/2019 3:03 PM SCIENTIFIC SOFTWARE ENGINEER) Specimen Narrative Performed At FINAL REPORT GE RIS Abdomen date 12/22/2019 Comment:Frontal view of the abdomen demonstrates a nasogastric tube present with tip noted in the body of th e stomach. Signed: Edilberto Gregory MD Report Verified Date/Time:12/22/2019 16:39:35 Reading Location: [facility] B1 C013W Consult R eading Room Procedure Note Interface, External Ris In - 12/22/2019 4:41 PM SCIENTIFIC SOFTWARE ENGINEER FINAL REPORT Abdomen date 12/22/2019 Comment: Frontal view of the abdomen de monstrates a nasogastric tube present with tip noted in the body of th e stomach. Signed: Edilberto Gregory MD Report Verified Date/Time: 12/22/2019 1 6:39:35 Reading Location: [facility] B1 C013W Consult R eading Room Performing Organization Address City/[facility] Phone Number GE RIS Protein, body fluid (12/21/2019 5:36 PM SCIENTIFIC SOFTWARE ENGINEER) Protein, Fluid 2.3 g/dL [facility] Peer[employer] TORY Specimen Body Fluid Narrative Performed At This result has an attachment that is no t available. Absence of reference range indicates that normals have not been defined. [facility] Assay performance has not been validated for this type of specimen. Performing Organization Address City/[facility] Phone Number [facility] [address] [place] [address] Lactate dehydrogenase (LDH), body fluid (12/21/2019 5:36 PM SCIENTIFIC SOFTWARE ENGINEER) LDH, Fluid 235 U/L [facility] [employer] TOR Specimen Body Fluid Narrative Performed At This result has an attachment that is no t available. Absence of reference range indicates that normals have not been defined. [facility] Assay performance has not been validated for this type of specimen. Performing Organization Address [facility] Cent[facility]ode Phone Number [facility] [address] [place] [address] Prothrombin time/INR (12/21/2019 10:51 AM SCIENTIFIC SOFTWARE ENGINEER)Only the most recent of6 results within the time period is included. Protime 16.3 (H) 11.9 - 14.2 seconds [facility] INR 1.3 <=5.9 [facility] Specimen Blood Narrative Performed At Effective 03/24/2019: PT Reference Range [facility] Change New: 11.9-14.2Previous: 11.7-14.7 RECOMMENDED COUMADIN/WARFARIN INR THERAPY RANGES STANDARD DOSE: 2.0-3.0Includes: PROPHYLAXIS for venous thrombosis, systemic embolization; TREATMENT for venous thrombosis and/or pulmonary embolus. HIGH RISK: Target INR is 2.5-3.5 for patients wiht mechanical heart valves. Performing Organization Address City/State/Zipcode Phone Number [facility] [address] [place] [address] CENTER Blood Culture Panel(BioFire) (12/20/2019 10:47 AM SCIENTIFIC SOFTWARE ENGINEER)Only the most recent of2 resultswithin the time period is included. [place]ISTERIA MONOCYTOGENES Not detected Not detected [facility] STAPHYLOCOCCUS Detected (A) Not detected [facility] Comment: [facility] Coagulase negative Staph species (CoNS)- methici llin susceptible CENTER First-line therapy: Cefazoli n or Oxacillin (Oxacillin preferred if CHAPLAINCY involvement) MecA NOT DETECTED Possible contamination. The likelihood of pathogenicity is increased if the organism is observed in multiple blood cultures obtained from separate venipunctures. Reference Range: Not Detected STAPHYLOCOCCUS AUREUS Not detected Not detected [facility] Streptococcus Not detected Not detected [facility] STREPTOCOCCUS AGALACTIAE Not detected Not detected [facility] (GROUP B) [facility] STREPTOCOCCUS PNEUMONIAE Not detected Not detected [facility] Streptococcus pyogenes (Group Not detected Not detected [facility] A) [facility] ACINETOBACTER BAUMANNII Not detected Not detected [facility] HAEMOPHILUS INFLUENZAE Not detected Not detected [facility] NEISSERIA MENINGITIDIS Not detected Not detected [facility] ENTEROBACTERIACEAE [facility] ENTEROBACTER CLOACOE COMPLEX Not detected Not detected [facility] KLEBSIELLA OXYTOCA Not detected Not detected [facility] KLEBSIELLA PNEUMONIAE Not detected Not detected [facility] PROTEUS [facility] SERRATIA MARCESCENS Not detected Not detected [facility] JAMAL ALBICANS Not detected Not detected [facility] JAMAL GLABRATA Not detected Not detected [facility] JAMAL KRUSEI Not detected Not detected [facility] JAMAL PARAPSILOSIS Not detected Not detected [facility] JAMAL TROPICALIS Not detected Not detected [facility] ESCHERICHIA COLI Not detected Not detected [facility] METHICILLIN-RESISTANCE GENE Not detected Not detected [facility] VANCOMYCIN-RESISTANCE GENE [facility] CARBAPENEM-RESISTANCE GENE [facility] ENTEROCOCCUS Not detected Not detected [facility] PSEUDOMONAS AERUGINOSA Not detected Not detected [facility] Specimen Blood Narrative Performed At Other bacteria and resistance markers not [facility] targeted by this PCR panel cannot be excluded; therefore clinical correlation and follow up of serology, culture results, and other molecular studies is required. The results are not intended to be used as the sole means for clinical diagnosis or patient management decisions. This sample was tested at the [facility] Molecular Diagnostics Laboratory using the [employer] FilmArray Blood Culture ID Panel. It is FDA cleared and has been verified and approved by the [facility] Molecular Diagnostics Laboratory for clinical use. This laboratory is CLIA-certified and [employer] (CAP)-accredited to perform high complexity testing. Performing Organization Address City/State/Zipcode Phone Number [facility] [address] [place] [address] CENTER PERIPHERAL VASCULAR REPORT - SCAN (12/18/2019 9:22 PM SCIENTIFIC SOFTWARE ENGINEER) Narrative Performed At This result has an attachment that is no t available. Hemoglobin A1c (12/18/2019 4:22 AM SCIENTIFIC SOFTWARE ENGINEER) Hemoglobin A1C 5.4 4.3 - 6.1 % [facility] Specimen Blood Performing Organization Address City/State/Zipcode Phone Number [facility] [address] [place] [address] CENTER ECHOCARDIOGRAM REPORT - SCAN (12/17/2019 9:22 PM SCIENTIFIC SOFTWARE ENGINEER) Narrative Performed At This result has an attachment that is no t available. Venous doppler arm, left (12/17/2019 8:10 PM SCIENTIFIC SOFTWARE ENGINEER) Ejection Fraction [facility] ECHO HEAR TLAB [facility] Specimen Impressions Performed At [facility] ECHO HEARTLAB [facility] Left Impression 1. There is total echolucent [...] At PV LAB - Upper Extremities Veins [facility] ECHO HEARTLAB MK[facility]ON [facility] Demographics Patient Renny Bone of Study 12/17/2019 Age 74 Visit [id number] GenderMale Date of 1945 Referring Peter Montenegro Room Number [id number] Physician LAMONTE Graphics Coordinator Ana Lilia GregoryInterpreAlfonso Ferrer MD Procedure Type of Study: Veins: Upper [...] External Ris In - 12/18/2019 8:45 AM SCIENTIFIC SOFTWARE ENGINEER PV LAB - Upper Extremities Veins Demographics Patient Name RENE CHAMBERLAIN Da te of Study 12/17/2019 Ag e 74 Visit Number [id number] Ge nder Male Accession Number [id number] Da te of 1945 Referring Peter Montenegro om Number [id number] Physician LAMONTE Graphics Coordinator Ana Lilia Gregory In terpreting Melony Dyer RVT Ph ysician Procedure Type of Study: Veins: Upper Extremities Veins, VENOUS DOPPLER ARM, LEFT. Indications for Study:Swelling. Patient Status:OLGA. Study Location:Portable. Technical Quality:Technically Difficult. - Results were reported to:LIZ Veras @ 20:10. Risk Factors History of Disease [...] are measured in cm Performing Organization Address City/[facility] Cent[facility]ode Phone Number [facility] ECHO HEARTLAB [facility]ACS Vancomycin level, trough (12/17/2019 2:00 PM SCIENTIFIC SOFTWARE ENGINEER)Only the most recent of2 resultswithin the time period is included. Vancomycin Tr 10.8 10.0 - 20.0 ug/mL [facility] Specimen Blood Performing Organization Address City/[facility] [place] [address] brain without IV contrast (12/17/2019 11:15 AM SCIENTIFIC SOFTWARE ENGINEER) Specimen Narrative Performed At FINAL REPORT [facility], BRAIN, WITHOUT CONTRAST CLINICAL INDICATION:ams COMPARISON: [...] MD Report Verified Date/Time:12/17/2019 11:48:34 Reading Location: [facility] C013[facility] Procedure Note Interface, External Ris In - 12/17/2019 11:50 AM SCIENTIFIC SOFTWARE ENGINEER FINAL REPORT CT, BRAIN, WITHOUT CONTRAST CLINICAL [...] Verified Date/Time: 12/17/2019 1 1:48:34 Reading Location: [facility] [address] [place] [address] Performing Organization Address City/State/Zipcode Phone Number [facility] CT abdomen/pelvis without iv contrast (12/17/2019 11:15 AM SCIENTIFIC SOFTWARE ENGINEER) Specimen Narrative Performed At FINAL REPORT [facility] CT of the Chest, abdomen and pelvis [...] MD Report Verified Date/Time:12/17/2019 13:42:11 Reading Location: [facility] C013Y CT Body R [facility] Room Procedure Note Interface, External Ris In - 12/17/2019 2:54 PM SCIENTIFIC SOFTWARE ENGINEER FINAL REPORT CT of the Chest, abdomen [...] Verified Date/Time: 12/17/2019 1 3:42:11 Reading Location: [facility] B1 C013Y CT Body R eading Room Performing Organization Address City/State/Zipcode Phone Number [employer] 2D Echocardiogram (12/17/2019 8:25 AM SCIENTIFIC SOFTWARE ENGINEER) Ejection Fraction [facility] ECHO HEAR TLAB [employer] [facility] Specimen Narrative Performed At Transthoracic Echocardiography Report (T TE) [facility] ECHO HEARTLAB MKCKESSON CPA Demographics Patient NameRENE CHAMBERLAIN Date of Study 12/17/2019 Male Visit [id number] Room Number [id number] Number Date of 1945Referring Physician Freddie ADAME Age 74 year(s)Graphics Coordinator Kenton Olivier [facility] Germination Worker Adan YipJomarina Flor MD Physician Procedure Type of Study TTE procedure:LIMITED 2D ECHOCARDIOGRAM (STAT) Indications:Suspected Pericardial condit ions. 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, BIV-ICD UPGRADE 2014 Height: 72 inches Weight: [...] External Ris In - 12/17/2019 12:21 PM SCIENTIFIC SOFTWARE ENGINEER Transthoracic Echocardiography Report (TTE) Demographics Patient Name RENE CHAMBERLAIN Date of S sierrady 12/17/2019 Gender Male Visit Number [id number] Race Room Numb er 6107 Number Date of 1945 Referring Physician Freddie ADAME Age 74 year(s) Sonograph er Kenton [facility] Germination Worker Adan Alaniz Interpret ing Jake Flor MD Physician Procedure Type of Study TTE procedure:LIMITED 2D ECHO CARDIOGRAM (STAT) Indications:Suspected Pericardial condit ions. 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 Folate 5.1 (L) >=7.0 ng/mL [facility] Specimen Blood Narrative Performed At Ice Cream Vendor ID - ADAMARIS [facility] Performing Organization Address City/State/Zipcode Phone Number [facility] [address] [place] [address] CENTER TSH/Free T4 If Indicated (12/17/2019 3:09 AM SCIENTIFIC SOFTWARE ENGINEER) TSH 0.72 0.35 - 4.94 uIU/mL [facility] Specimen Blood Narrative Performed At Ice Cream Vendor ID - ADAMARIS M [facility] Performing Organization Address City/[facility]/Zipcode Phone Number [address] [address] CENTER Iron, TIBC, % sat. (without ferritin) (12/17/2019 3:09 AM SCIENTIFIC SOFTWARE ENGINEER) Iron 21.0 (L) 40.0 - 160.0 ug/dL [facility] TIBC 115 (L) 250 - 450 ug/dL [facility] Iron % Saturation 18 (L) 20 - 55 % [facility] Specimen Blood Narrative Performed At Ice Cream Vendor ID - ADAMARIS Berkowitz [facility] Performing Organization Address City/[facility] Cent[facility] Phone Number [address] [address] CENTER Lactic acid, venous (12/17/2019 3:09 AM SCIENTIFIC SOFTWARE ENGINEER) Lactate, Venous 1.1Comment: Specimen 0.5 - 2.2 mmol/L [facility] slightly hemolyzed [facility] R Specimen Blood Narrative Performed At Ice Cream Vendor ID - ADAMARIS Berkowitz [facility] Performing Organization Address City/[facility] Centercode Phone Number [address] [address] CENTER Reticulocyte count (12/17/2019 3:09 AM SCIENTIFIC SOFTWARE ENGINEER) % Retic 2.1 (H) 0.5 - 1.8 % [facility] Specimen Blood Narrative Performed At Ice Cream Vendor ID - [id number] [facility] Performing Organization Address City/[facility]/Zipcode Phone Number [address] [address] CENTER Ferritin (12/17/2019 3:09 AM SCIENTIFIC SOFTWARE ENGINEER) Ferritin 4,442 (H) 5 - 275 ng/mL [facility] Specimen Blood Narrative Performed At Ice Cream Vendor ID - ADAMARIS Berkowitz [facility] Performing Organization Address City/[facility]/Zipcode Phone Number [address] [address] [place] Ammonia (12/16/2019 2:38 PM SCIENTIFIC SOFTWARE ENGINEER) Ammonia 30 18 - 72 mol/L [facility] Specimen Blood Narrative Performed At Ice Cream Vendor ID - BS [facility] Performing Organization Address City/[facility] Centercotx Phone Number [address] [address] [place] Potassium-Stat Lab (12/16/2019 2:31 PM SCIENTIFIC SOFTWARE ENGINEER)Only the most recent of3 results within the time period is included. Potassium 3.1 (L) 3.6 - 5.5 meq/L [facility] Specimen Blood, Arterial Performing Organization Address [facility] Phone Number [address] [address] [place] Sodium Na-Stat Lab (12/16/2019 2:31 PM SCIENTIFIC SOFTWARE ENGINEER)Only the most recent of3 results within the time period is included. Sodium 134 (L) 135 - 148 meq/L [facility] Specimen Blood, Arterial Performing Organization Address City/[facility] Phone Number [address] [address] [place] Glucose-Stat Lab (12/16/2019 2:31 PM SCIENTIFIC SOFTWARE ENGINEER)Only the most recent of3 resultswithin the time period is included. Glucose 126 (H) 70 - 110 mg/dL [facility] Specimen Blood, Arterial Performing Organization Address City/[facility] Cent[facility]x Phone Number [address] [address] [place] HGB/HCT (H&H)-Stat Lab (12/16/2019 2:31 PM SCIENTIFIC SOFTWARE ENGINEER)Only the most recent of3 resultswithin the time period is included. Hemoglobin 10.6 (L) 13.0 - 16.8 g/dL [facility] Hematocrit 31.0 (L) 40.0 - 50.0 % [facility] Specimen Blood, Arterial Performing Organization Address City/[facility]/Zipcode Phone Number [address] [address] CENTER AFB culture + smear (non-sputum) (12/16/2019 12:21 PM SCIENTIFIC SOFTWARE ENGINEER) Result No acid-fast bacilli isolated in [facility] 42 days CENTER AFB Smear No acid fast bacilli seen [facility] Specimen Wound Performing Organization Address City/[facility]/Zipcode Phone Number [address] [address] [place] Anaerobic culture (12/16/2019 12:21 PM SCIENTIFIC SOFTWARE ENGINEER) Result No anaerobes isolated [facility] Specimen Wound Performing Organization Address City/[facility] Centercode Phone Number [address] [address] [place] Surgically obtained culture + gram stain (12/16/2019 12:21 PM SCIENTIFIC SOFTWARE ENGINEER) Result 1+ Staphylococcus lugdunensis [facility] I [facility] Gram Stain Result <1+ WBCs [facility] Gram Stain Result <1+ gram positive cocci in [facility] pairs and clusters [facility]ICAL [facility]ENT[facility] R Specimen [...] Vancomycin <=0.5 : Susceptible Performing Organization Address City/[facility]/Zipcode Phone Number [address] [address] CENTER ECHOCARDIOGRAM REPORT - SCAN (12/15/2019 9:23 PM SCIENTIFIC SOFTWARE ENGINEER) Narrative Performed At This result has an attachment that is no t available. Urine culture (12/15/2019 5:10 PM SCIENTIFIC SOFTWARE ENGINEER) Result No growth [facility] Specimen Urine Performing Organization Address [facility] Centercode Phone Number [address] [address] CENTER ABORH, manual (12/15/2019 5:09 PM SCIENTIFIC SOFTWARE ENGINEER) ABO Grouping O [facility] Rh Factor POS [facility] Specimen Blood Performing Organization Address City/[facility] Centercode Phone Number [address] [address] EEG AWAKE AND DROWSY (12/15/2019 4:24 PM SCIENTIFIC SOFTWARE ENGINEER) Specimen Narrative Performed At DATE OF TEST: 12/15/19 GE RIS DATE OF REPORT: 12/15/19 ACC: [id number] Start: 1603 End: 1624 CPT Code: 14677 ICD-10: R56.9 HISTORY: 74 yo male with HTN, HLD, CAD, Obesity, AVN s/p dual ppm 2006 and cardiomyopathy s/p BIV-ICD upgrade in who was transferred from [facility] for lead extraction. Patient was ad mitted to [facility] with change in mental status. Per [...] External Ris In - 12/15/2019 4:41 PM SCIENTIFIC SOFTWARE ENGINEER DATE OF TEST: 12/15/19 DATE OF REPORT: 12/15/19 ACC: [id number] Start: 1603 End: 1624 CPT Code: 79444 ICD-10: R56.9 HISTORY: 74 yo male with HTN, HLD, CAD, Obesity, AVN s/p dual ppm 2006 and cardiomyopathy s/p BIV-ICD upgrade in who was transferred from [facility] for lead extraction. Patient was ad mitted to [facility] with change in mental status. Per [...] Attending Performing Organization Address City/State/Zipcode Phone Number [employer] 2D Echo W/Doppler(CW/PW/Color) (12/15/2019 2:23 PM SCIENTIFIC SOFTWARE ENGINEER) Ejection Fraction [facility] ECHO HEAR TLAB [employer]CK[employer]ycle[employer]ON [facility] Specimen Narrative Performed At Transthoracic Echocardiography Report (T TE) [facility] ECHO HEARTLAB [facility] Demographics Patient Name Renny CHAMBERLAIN of Study 12/15/2019 [id number] GenderMal e Visit Number [id number] RaceCauc [id number] m Number 1430 Number Date of Birth1945 Referring Physician Niyah Mojica MD Age74 year(s) Graphics Coordinator Kenton Byrd ms [facility] AnalysDanna Hatch,InterpretingSouth [place], [place] Physician Procedure Type of Study TTE procedure:2DECHO W DOPPLER(CW/PW/COLOR) (STAT) Indications:Endocarditis. 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 Cholesterol 90 mg/dL [facility] HDL 6 mg/dL [facility] LDL Calculated 59 mg/dL [facility] Specimen Blood Narrative Performed At Triglyceride Reference Range: [facility] Low Risk <150 [id number] High Risk 200-499 Very High Risk>=500 Cholesterol Reference Range: Low Risk <200 [id number] High Risk>240 HDL Cholesterol Reference Range: Low Risk >=60 High Risk <40 LDL Cholesterol Reference Range: Optimal<100 Near [id number] Very High >=190 Ice Cream Vendor ID - [id number] Specimen slightly icteric Performing Organization Address [facility] Centercode Phone Number [facility] [address] [place] [address] CENTER after 07/08/2019 Insurance Payer Benefit Plan / Group Subscriber ID Type Phone A ddress MEDICARE MEDICARE A B xxxxxxxxxxx Medicare MCR GENERIC MEDICARE xxxxxxxxx Medigap SUPPLEMENT/INDIVIDUAL SUPPLEMENT Advance Directives For more information, please contact:[address] [phone] Code Status Date Activated Date Inactivated Comments [...]
--- OUTSIDE RECORDS SUMMARY | 2020-07-08 09:38 | XMS REPORT | Continuity of Care Document ---
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 Medical (disorder) 014 Data migrated from [facility] on 03/25/15. Group, [place] CARDIOMYOPATHY Active Condition 05/08/2015 [facility] edical 014 Group Asbestosis Active Problem 12/30/2019 Data Medic al (disorder) 014 migrated Group, from [facility] on 03/25/15. Body mass index 30+ Active Problem 12/30/2019 Data Medical - obesity (finding) 014 migrated Group, from [employer] [facility] on 03/25/15. ASBESTOSIS Active Condition 05/08/2015 Medic al 014 Group BODY MASS INDEX Active Condition 05/08/2015 Medical 37.0-37.9, ADULT 014 Apple up Discharge 05/06/2014 [place] Diagnosis: 014 Land Dizziness DIZZINESS Active [place] 014 [place] Complete Active Problem 12/30/2019 Data migrated from [facility] on 05/31/15. Medical atrioventricular 014 Data migrated from [facility] on 03/25/15. Group, block (disorder) [place] Preoperative Resolved Problem 12/30/2019 Data migrate d from [employer] [facility] on 05/13/15. Medical cardiovascular 014 Data migrated f rom [facility] on 05/12/15. Group, examination [place] t (procedure) PRE-OPERATIVE Inactive Condition 05/08/2015 [facility] dical CARDIOVASCULAR 014 Group EXAMINATION ATRIOVENTRICULAR Active Condition 05/08/2015 Medical BLOCK, COMPLETE 014 Grou p Patient with Resolved Problem 12/30/2019 Data migrate d from [employer] [facility] on 05/31/15. Medical cardiac pacemaker 012 Data migrate d from [employer] [facility] on 05/03/15. Group, (finding) [facility] PACEMAKER, Active Condition 05/01/2015 Medic al PERMANENT 007 Group Biventricular Active Problem 12/30/2019 [facility] dical automatic Group, [facility] cardio[facility]ill[facility] present (finding) Atherosclerosis of Active Problem 12/30/2019 Data Medical coronary artery migrated [place], (disorder) from [employer] [facility] on 03/25/15. Dyspnea on exertion Active Problem 12/30/2019 Data migrated from [facility] on 05/31/15. Medical (finding) Data migrated from [employer] on 03/25/15. Group,[facility] Essential Active Problem 12/30/2019 Medica l hypertension Group,M H (disorder) [place] [facility] Hypertensive Resolved Problem 12/30/2019 Med ical disorder, systemic G roup, arterial (disorder) [place],[facility] Hyperlipidemia Active Problem 12/30/2019 Data migra alex from [employer] [facility] on 05/31/15. Medical (disorder) Data migrated from [facility] on 03/25/15. Group,[facility] Rhythm from Resolved Problem 12/30/2019 Medi yoana artificial pacing Gr lul, (finding) [facility], [facility] CORONARY ARTERY Active Condition 05/08/2015 Medical DISEASE Group HYPERTENSION Active Condition 05/08/2015 Med ical Group HYPERLIPIDEMIA Active Condition 05/08/2015 M edical Group DYSPNEA ON EXERTION Active Condition 05/08/2015 Medical Group ILLNESS, Active UNSPECIFIED [facility] Medications Medication Details Route Status Patient Ordering Order Source Instructions Provider Date Aspirin 81 MG Enteric 81 mg = 1 Active 12/15/ Coated Tablet tab, PO, 2019 [facility] Daily, 0 Refill(s) pravastatin 20 mg 80 mg = 4 Active oral tablet tab, PO2019 [facility] Bedtime, 0 Refill(s) sertraline 25 mg oral 50 mg = 2 Active tablet tab, PO, 2019 [facility] Daily, 0 Refill(s) tamsulosin 0.4 mg 0.4 mg = 1 oral capsule cap, PO, 2019 [facility] Bedtime, 0 Refill(s) Acetaminophen 325 MG 100.4 F, 0 Oral Tablet Refill(s) 2019 [facility] amLODIPine 5 mg oral 5 mg = 1 tablet tab, PO, 2019 [facility] Daily, 0 Refill(s) cyclobenzaprine 10 mg 10 mg = 1 Active oral tablet tab, PO, 2019 [facility] Q8H, PRN Muscle Spasms, 0 Refill(s) Docusate Sodium 100 100 mg = 1 H MG Oral Capsule cap, PO, 2019 [facility] BID, 0 Refill(s) Furosemide 40 MG Oral 40 mg = 1 Tablet tab, PO, 2019 [facility] Daily, 0 Refill(s) lisinopril 20 mg oral 20 mg = 1 tablet tab, PO, 2019 [facility] Daily, 0 Refill(s) metoprolol tartrate 25 mg = 1 25 mg oral tablet tab, PO, 2019 [facility] Q12H, 0 Refill(s) metroNIDAZOLE 500 mg = Active intravenous solution 100 mL, 2019 [facility] IVPB, ABXQ8H, 0 Refill(s) ondansetron 2 mg/mL 4 mg = 2 injectable solution mL, IVP, 2019 [facility] Q8H, PRN Nausea & Vomiting, 0 Refill(s) tramadol 50 mg = 1 Active hydrochloride 50 MG tab, PO, 2019 [facility] Oral Tablet Q6H, PRN Pain Score 1-3, 0 Refill(s) cefepime Notes: No Longer (Same As: 2019 [facility] Maxipime) MEDICATION WASTE Product Size: 1000 mg Product Wasted: ___ mg Flagyl Notes: No Longer (Same as: 2019 [facility] Flagyl) Avoid alcohol. Tylenol Notes: Do No Longer not exceed [address] 4 gm/day. (Same as: Tylenol) Potassium Chloride Notes: Inactive (Same as: 2019 [facility] ) "Do Not Crush" Give with food and full glass of water For patients unable to swallow tablet, dissolve in one half glass of water. Allow about 2 minutes for the tablets to disintegrat e. Stir before giving to prepare slurry and administer. Please exclude Patient&#82 17;s with feeding tube less than 14 [place] (Dobhoff, J-tube etc) and pediatric and patients. Potassium Chloride Notes: Inactive ([facility]: [facility] "Do Not Crush" Give with food and full glass of water For patients unable to swallow tablet, dissolve in one half glass of water. Allow about 2 minutes for the tablets to disintegrat e. Stir before giving to prepare slurry and administer. Please exclude Patient&#82 17;s with feeding tube less than 14 [place] (Dobhoff, J-tube etc) and pediatric and patients. Lasix Notes: No Longer (Same as: 2019 [facility] Lasix) May cause GI upset. Give with food or milk. Potassium Chloride Notes: Inactive (Same as: 2019 [facility] ) "Do Not Crush" Give with food and full glass of water For patients unable to swallow tablet, dissolve in one half glass of water. Allow about 2 minutes for the tablets to disintegrat e. Stir before giving to prepare slurry and administer. Please exclude Patient&#82 17;s with feeding tube less than 14 [place] (Dobhoff, J-tube etc) and pediatric and patients. tramadol Notes: Not No Longer hydrochloride 50 MG to exceed Active 2019 [facility] Oral Tablet 400mg/day. (Same As: Ultram) Flexeril Notes: No Longer (Same As: 2019 [facility] Flexeril) metoprolol tartrate 25 mg, No Longer Route: PO, 2019 [facility] Drug form: TAB, BID, Dosing Weight 122.955, kg, Start date: 12/12/19 9:00:00 GUIDE VISITOR, Duration: 30 day, Stop date: 01/10/20 17:00:00 CDT metoprolol tartrate Notes: No Longer (Same as: 2019 [facility] Lopressor) Pravastatin Notes: No Longer (Same as: 2019 [facility] Pravachol) tamsulosin Notes: No Longer (Same As: 2019 [facility] Flomax) "Do Not Crush" Lasix Notes: Inactive (Same as: 2019 [facility] Lasix) MEDICATION WASTE Product Size: 40 mg Product Wasted: ___ mg Amlodipine 5 MG / 1 cap, No Longer Benazepril Route: PO, 2019 [facility] hydrochloride 20 MG Drug Form: Oral Capsule CAP, Dosing Weight 122.955, kg, Daily, Start date: 12/11/19 9:00:00 GUIDE VISITOR, Duration: 30 day, Stop date: 01/09/20 9:00:00 CDT Aspirin 81 MG Enteric Notes: Do No Longer Coated Tablet not crush [facility] or [facility]. (Same As: Ecotrin) Sertraline Notes: No Longer (Same as: 2019 [facility] Zoloft) Docusate Notes: No Longer (Same as: 2019 [facility] Colace) (Do Not Crush) amLODIPine Notes: No Longer (Same as: 2019 [facility] Norvasc) lisinopril Notes: No Longer (Same as: 2019 [facility] Prinivil, Zestril) Acetaminophen 325 MG Notes: No Longer H / Hydrocodone (Same as: 2019 [facility] t Bitartrate 5 MG Oral Winslow Tablet [Winslow 5/325] 325/5) Do not exceed 4gm/day of acetaminoph en. Dextrose 50% Syringe 12.5 gm, 25 No Longer 12/11 (D50W) mL, Route: 2019 [facility] IVP, Drug Form: INJ, Dosing Weight 122.955, kg, PRN, PRN Blood Glucose Results, Start date: 12/10/19 22:10:00 GUIDE VISITOR, Duration: 30 day, Stop date: 01/09/20 23:09:00 CDT, 0 Glucagon 1 mg, No Longer Route: IM, 2019 [facility] Drug form: PDR/INJ, PRN, Dosing Weight 122.955, kg, PRN Blood Glucose Results, Start date: 12/10/19 22:10:00 GUIDE VISITOR, Duration: 30 day, Stop date: 01/09/20 23:09:00 CDT, 0 Ondansetron Notes: No Longer (Same as: 2019 [facility] Zofran) MEDICATION WASTE Product Size: 4 mg Product Wasted: ___ mg BD Normal Saline Notes: Same No Longer H Flush as: BD 2019 [facility] Posiflush Sterile Sodium Chloride 0.9% 250 mL, No Longer H IV Route: 2019 [facility] IVPB, Start date: 12/10/19 21:33:00 GUIDE VISITOR, Duration: 30 day, Stop date: 01/09/20 22:32:00 [...] LOTREL 5-20 MG CAPS one by Active [facility] edical mouth daily 2014 Group SPIRONOLACTONE [...] Sodium Lvl 134 135 - 145 12/13 [facility] CHEM PANEL Potassium 3.2 3.5 - 5.1 12/13 Lvl [place] CHEM PANEL Chloride Lvl 100 95 - 109 12/13 [facility] CHEM PANEL CO2 25 24 - 32 12/13 [facility] CHEM PANEL Calcium Lvl 9.6 8.5 - 10.5 12/13 [facility] CHEM PANEL AGAP 12.2 10.0 - 12/13 MH 20.0 [facility] CHEM PANEL eGFR 58 12/13 Result Comment: The [facility] eGFR is calculated using the CKD-EPI [...] 1.8 - 2.4 / MH Lvl /2019 [facility] HEMATOLOGY WBC 12.2 3.7 - 10.4 12/13 /2019 [facility] HEMATOLOGY RBC 4.03 4.70 - 12/13 MH 6.10 [facility] HEMATOLOGY Hgb 11.9 14.0 - 12/13 MH 18.0 /2019 [facility] HEMATOLOGY Hct 35.8 42.0 - 12/13 MH 54.0 /2019 [facility] HEMATOLOGY MCV 89.0 80.0 - 12/13 MH 94.0 /2019 [facility] HEMATOLOGY MCH 29.6 27.0 - 12/13 MH 31.0 /2019 [facility] MCHC 33.2 32.0 - 12/13 MH 36.0 /2019 [facility] HEMATOLOGY RDW 14.9 11.5 - 12/13 MH 14.5 [facility] HEMATOLOGY Platelet 105 133 - 450 12/13 /2019 [facility] HEMATOLOGY MPV 9.7 7.4 - 10.4 12/13 /2019 [facility] HEMATOLOGY Segs 86.4 45.0 - 12/13 MH 75.0 [facility] HEMATOLOGY Lymphocytes 7.3 20.0 - 12/13 MH 40.0 [facility] HEMATOLOGY Monocytes 5.1 2.0 - 12.0 12/13 /2019 [facility] HEMATOLOGY Eosinophils 0.2 0.0 - 4.0 12/13 /2019 [facility] HEMATOLOGY Basophils 1.0 0.0 - 1.0 12/13 /2019 [facility] HEMATOLOGY Neutrophils 10.5 1.5 - 8.1 12/13 MH # /2019 [facility] HEMATOLOGY Lymphocytes 0.9 1.0 - 5.5 12/13 MH # /2019 [facility] HEMATOLOGY Monocytes # 0.6 0.0 - 0.8 12/13 /2019 [facility] HEMATOLOGY Basophils # 0.1 0.0 - 0.2 12/13 /2019 [facility] SPECIAL Hgb A1C 5.4 <=5.6 % 12/13 CHEMISTRY /2019 [facility] CHEM PANEL Glucose Lvl 120 70 - 99 12/12 /2019 [facility] CHEM PANEL BUN 37 7 - 22 12/12 [facility] CHEM PANEL Creatinine 1.20 0.50 - 12/12 MH Lvl 1.40 [facility] CHEM PANEL Sodium Lvl 135 135 - 145 12/12 [facility] CHEM PANEL Potassium 2.7 3.5 - 5.1 12/12 Result MH Lvl /2019 Comment: [facility] Critical Result(s) called Beatris _ at 12/12/2019 16:50 by js. Read back OK. CHEM PANEL Chloride Lvl 100 95 - 109 12/12 [facility] CHEM PANEL CO2 31 24 - 32 12/12 [facility] CHEM PANEL AGAP 6.7 10.0 - 12/12 MH 20.0 [facility] CHEM PANEL Calcium Lvl 9.4 8.5 - 10.5 12/12 [facility] CHEM PANEL eGFR 58 12/12 Result Comment: The [facility] eGFR is calculated using the CKD-EPI [...] Ammonia 14.0 <=45.0 12/12 MH uMol/L /2019 [facility] HEMATOLOGY WBC 11.3 3.7 - 10.4 12/12 [facility] HEMATOLOGY RBC 4.04 4.70 - 12/12 MH 6.10 [facility] HEMATOLOGY Hgb 11.9 14.0 - 12/12 MH 18.0 [facility] HEMATOLOGY Hct 35.9 42.0 - 12/12 MH 54.0 [facility] HEMATOLOGY MCV 88.8 80.0 - 12/12 MH 94.0 [facility] HEMATOLOGY MCH 29.5 27.0 - 12/12 MH 31.0 [facility] HEMATOLOGY MCHC 33.2 32.0 - 12/12 MH 36.0 [facility] HEMATOLOGY RDW 14.7 11.5 - 12/12 MH 14.5 [facility] HEMATOLOGY Platelet 123 133 - 450 12/12 [facility] HEMATOLOGY MPV 9.8 7.4 - 10.4 12/12 [facility] HEMATOLOGY RBC Morph Normal Normal 12/12 (12/12/19 3:50 PM) /2019 [facility] est HEMATOLOGY Plt Morph Normal Normal 12/12 (12/12/19 3:50 PM) /2019 [facility] est HEMATOLOGY Segs 84.7 45.0 - 12/12 MH 75.0 /2019 [facility] HEMATOLOGY Lymphocytes 7.4 20.0 - 12/12 MH 40.0 /2019 [facility] HEMATOLOGY Monocytes 7.6 2.0 - 12.0 12/12 [facility] HEMATOLOGY Eosinophils 0.3 0.0 - 4.0 12/12 [facility] HEMATOLOGY Basophils 0.0 0.0 - 1.0 12/12 [facility] HEMATOLOGY Neutrophils 9.6 1.5 - 8.1 12/12 MH # /2019 [facility] HEMATOLOGY Lymphocytes 0.8 1.0 - 5.5 12/12 MH # /2019 [facility] HEMATOLOGY Monocytes # 0.9 0.0 - 0.8 12/12 [facility] HEMATOLOGY Eosinophils 0.0 0.0 - 0.5 12/12 MH # /2019 [facility] HEMATOLOGY Basophils # 0.0 0.0 - 0.2 12/12 [facility] Culture: No Growth 12/12 Urine [facility] URINE AND UA Turbidity Slight Clear 12/12 STOOL *ABN* [facility] (12/11/19 8:55 PM) URINE AND UA Spec Grav 1.010 <=1.030 12/12 STOOL [facility] URINE AND UA pH 5.0 5.0 - 8.0 12/12 STOOL [facility] URINE AND UA Protein Negative Negative 12/12 STOOL mg/dL mg/dL [facility] URINE AND UA Glucose Negative Negative 12/12 STOOL mg/dL mg/dL [facility] URINE AND UA Ketones Trace Negative 12/12 STOOL mg/dL mg/dL [facility] URINE AND UA Bili Negative Negative 12/12 STOOL *NA* [facility] (12/11/19 8:55 PM) URINE AND UA Blood Large Negative 12/12 STOOL *ABN* [facility] (12/11/19 8:55 PM) URINE AND UA 4.0 0.1 - 1.0 12/12 STOOL Urobilinogen [facility] URINE AND UA Nitrite Negative Negative 12/12 STOOL (12/11/19 8:55 PM) [facility] est URINE AND UA Leuk Est Negative Negative 12/12 STOOL (12/11/19 8:55 PM) [facility] est URINE AND UA WBC 14 0 - 5 12/12 STOOL [facility] URINE AND UA RBC >182 0 - 2 12/12 STOOL [facility] URINE AND UA Bacteria Occasional None Seen 12/12 STOOL /HPF /HPF [facility] URINE AND UA Mucus Few /LPF None Seen 12/12 STOOL /LPF [facility] URINE AND UA Hyal Cast 1 0 - 2 12/12 STOOL [facility] URINE AND UA Sq Epi None Seen 12/12 STOOL [facility] URINE AND UA Color Yellow 12/12 STOOL [facility] CARDIAC BNP 705 <=100 12/11 ENZYMES pg/mL [facility] CHEM PANEL Glucose Lvl 92 70 - 99 12/11 [facility] CHEM PANEL BUN 29 7 - 22 12/11 [facility] CHEM PANEL Creatinine 1.00 0.50 - 12/11 Lvl 1.40 [facility] CHEM PANEL Sodium Lvl 138 135 - 145 12/11 MH [facility] CHEM PANEL Potassium 3.6 3.5 - 5.1 12/11 Lvl /2019 [facility] CHEM PANEL Chloride Lvl 107 95 - 109 12/11 [facility] CHEM PANEL CO2 21 24 - 32 12/11 MH [facility] CHEM PANEL Calcium Lvl 9.8 8.5 - 10.5 12/11 [facility] CHEM PANEL Total 5.8 6.4 - 8.4 12/11 Protein [facility] CHEM PANEL Albumin Lvl 2.3 3.5 - 5.0 12/11 [facility] CHEM PANEL ALT 34 0 - 65 12/11 MH [facility] CHEM PANEL AST 50 0 - 37 12/11 MH [facility] CHEM PANEL Alk Phos 73 39 - 136 12/11 MH [facility] CHEM PANEL Bili Total 1.2 0.2 - 1.3 12/11 MH [facility] CHEM PANEL AGAP 13.6 10.0 - 02 MH 20.0 /2019 [facility] CHEM PANEL B/C Ratio 29 6 - 25 12/11 MH [facility] CHEM PANEL Globulin 3.5 2.7 - 4.2 12/11 [facility] CHEM PANEL A/G Ratio 0.7 0.7 - 1.6 12/11 [facility] CHEM PANEL eGFR 73 12/11 Result Comment: The [facility] eGFR is calculated using the CKD-EPI [...] HEMATOLOGY WBC 7.8 3.7 - 10.4 12/11 [facility] HEMATOLOGY RBC 3.88 4.70 - 12/11 MH 6.10 /2019 [facility] HEMATOLOGY Hgb 11.6 14.0 - 12/11 MH 18.0 [facility] HEMATOLOGY Hct 35.3 42.0 - 12/11 MH 54.0 [facility] HEMATOLOGY MCV 91.0 80.0 - 12/11 MH 94.0 [facility] HEMATOLOGY MCH 30.0 27.0 - 12/11 MH 31.0 /2019 [facility] HEMATOLOGY MCHC 33.0 32.0 - 12/11 MH 36.0 [facility] HEMATOLOGY RDW 14.7 11.5 - 12/11 MH 14.5 /2020 [facility] HEMATOLOGY Platelet 117 133 - 450 12/11 [facility] HEMATOLOGY MPV 10.1 7.4 - 10.4 12/11 [facility] HEMATOLOGY Segs 81.9 45.0 - 02 MH 75.0 /2019 [facility] HEMATOLOGY Lymphocytes 10.8 20.0 - 12/11 MH 40.0 /2019 [facility] HEMATOLOGY Monocytes 6.9 2.0 - 12.0 12/11 [facility] HEMATOLOGY Eosinophils 0.2 0.0 - 4.0 12/11 [facility] HEMATOLOGY Basophils 0.2 0.0 - 1.0 12/11 [place] HEMATOLOGY Neutrophils 6.4 1.5 - 8.1 12/11 [place] HEMATOLOGY Lymphocytes 0.8 1.0 - 5.5 12/11 [facility] HEMATOLOGY Monocytes # 0.5 0.0 - [...] 0.0 - 2.5 05/03 [place] ENZYMES [facility] CARDIAC Troponin-I 0.02 0.00 - 07 [place] ENZYMES 0.40 /2013 [facility] CARDIAC CK MB 1.9 0.5 - 3.6 05/03 [place] ENZYMES [facility] CARDIAC Total CK 149 12 - 191 [...] 99 05/03 <sup>2</sup>I MH [place] nterpretive [facility] Data: Adult reference range values reflect the clinical guidelines
of the [place] [employer]. CHEM PANEL AGAP 9.4 10.0 [...] 07/08 MH [place] r # /2013 [facility] HEMATOLOGY Monocytes # 0.5 0.0 - 0.8 07/ [place] r /2013 [facility] HEMATOLOGY Lymphocytes 1.8 1.0 - 5.5 / [place] # /2013 [facility] HEMATOLOGY Segs-Bands # 3.1 1.5 - 8.1 05/03 [place] ar /2013 [facility] HEMATOLOGY PT 12.9 12.0 - 07/08 [place] 14.7 /2013 [facility] HEMATOLOGY INR 0.98 0.85 - 07/08 <sup>3</sup>I [place] r 1.17 /2013 nterpretive [facility] Data: RECOMMENDED RANGES FOR PROTIME INR:
2.0-3.0 for most medical and surgical thromboemboli c states.
2.5-3.5 for artificial heart valves and recurrent embolism.<br/ >
INR SHOULD BE USED ONLY FOR PATIENTS ON STABLE ANTICOAGULANT THERAPY. HEMATOLOGY PTT 28.7 22.9 - 07/08 <sup>4</sup>I [place] r 35.8 /2013 nterpretive [facility] Data: Heparin Therapeutic Range: 57 - 92 Seconds HEMATOLOGY Hgb 13.9 14.0 - 07/08 [place] 18.0 /2013 [facility] HEMATOLOGY MCV 91.8 80.0 - 07/08 [place] 94.0 /2013 [facility] HEMATOLOGY Hct 40.8 42.0 - 07/08 [place] 54.0 /2013 [facility] HEMATOLOGY WBC 5.6 3.7 - 10.4 /08 [place] /2013 [facility] HEMATOLOGY RBC 4.45 4.70 - /08 [place] 6.10 /2013 [facility] HEMATOLOGY MCH 31.2 27.0 - 07/08 [place] 31.0 /2013 [facility] HEMATOLOGY RDW 13.2 11.5 - 07/08 [place] 14.5 /2013 [facility] HEMATOLOGY MCHC 34.0 32.0 - 07/08 [place] 36.0 /2013 [facility] HEMATOLOGY Platelet 174 133 - 450 / Sugar [facility] HEMATOLOGY MPV 8.8 7.4 - 10.4 /08 [place] /2013 [facility] Chemistry PSA 1.45 09/16 /2009 Group Chemistry PSA 1.45 09/16 Group Chemistry PSA 1.45 09/16 Group Pathology Reports No Data Provided for This Section Diagnostic Reports Report Value Date Source Chest 1view DX PROCEDURE INFORMATION: 12/13/2019 [facility] est Exam: XR Chest, 1 [...] Ridge Graham MD On 12/13/2019 14:47:39; VR-SSM [id number] Spine thoracolumbar 2 PROCEDURE INFORMATION: 12/11/2019 [facility] views DX Exam: XR Thoracic Spine, 2 [...] Alonso Nick MD On 12/11/2019 18:18:18; VR-EGEIB [id number] Spine cervical series DX PROCEDURE INFORMATION: 12/11/2019 [facility] Exam: XR Cervical Spine, 2 or 3 [...] Alonso Nick MD On 12/11/2019 16:21:50; VR-EGEIB [id number] Knee 1-2 Views PROCEDURE INFORMATION: 12/11/2019 [facility] est unilateral DX Exam: XR [...] Alonso Nick MD On 12/11/2019 15:51:54; VR-EGEIB [id number] Brain wo contrast CT Radiation Dose CTDIVOL = 0 (mGy): DLP = 958.83 (mGy-cm) 12/11/2019 [facility] PROCEDURE INFORMATION: Exam: CT Head Without Contrast [...] Jake Crowe MD On 12/11/2019 10:59:18; VR-JNG [id number] Chest 1view DX PROCEDURE INFORMATION: 12/11/2019 [facility] est Exam: XR Chest, 1 [...] Derek Membreno MD On 12/11/2019 08:19:20; VR-KO [id number] Chest 2 views DX PROCEDURE: [facility]: Hypertension. Comparison: Chest radiograph 05/03/2014. FINDINGS: The chest shows normal lung volumes without interstitial or airspace opacities, pleural effusions or pneumothorax. The cardiac silhouette is en larged. A left subclavian pacemaker is noted. Degenerative change involves the thoracic spine. IMPRESSION: 1. No chest radiographic evidence of acute cardi opulmonary disease. [id number] Consultation Notes No Data Provided for This Section Discharge Summaries No Data Provided for This Section History and Physicals No Data Provided for This Section Vital Signs Vital Sign Value Date Comments Source Heart Rate 98 12/15/2019 [facility] Respitory Rate 20 12/15/2019 [facility] Systolic (mm Hg) 155 12/15/2019 [facility] t Diastolic (mm Hg) 88 12/15/2019 [facility] [place] [facility] Heart Rate 91 12/14/2019 [facility] [facility] Respitory Rate 20 12/14/2019 [facility] Systolic (mm Hg) 126 12/14/2019 [facility] t Diastolic (mm Hg) 79 12/14/2019 [facility] [place] [facility] Heart Rate 73 12/14/2019 [facility] Respitory Rate 20 12/14/2019 [facility] Systolic (mm Hg) 109 12/14/2019 [facility] t Diastolic (mm Hg) 67 12/14/2019 [facility] [place] [facility] Temperature Oral (F) 99.9 F 12/11/2019 [facility] Temperature Oral (F) 99.7 F 12/11/2019 [facility] Temperature Oral (F) 98.9 F 12/11/2019 [facility] Height 182.88 cm 12/11/2019 [facility] Weight 122.955 12/11/2019 [facility] BMI Calculated 36.76 12/11/2019 [facility] Weight 126.023 02/11/2019 [facility] BMI [...] [place] [facility] Heart Rate 62 05/03/2014 [place] Respitory Rate 16 05/03/2014 [place] Systolic (mm Hg) 156 05/03/2014 [place] Weight 76.818 05/03/2014 [place] BMI Calculated 22.97 05/03/2014 [place] [facility] Height 182.88 cm 05/03/2014 [place] Systolic (mm Hg) 162 05/03/2014 [place] Rate 16 05/03/2014 [place] Heart Rate 60 05/03/2014 [place] Diastolic (mm Hg) 87 05/03/2014 [place] [...] Type Number For Provider Date Date Visit [facility] [id number] Derek James 05/03 05/03 Poppy Smith Emergency /2013 [facility] [place] [facility] Lab Report [id number] Dolly 05/04 05/04 [facility] [address] [facility], Medical Medical [employer] - [place] [facility] Lab Report [id number] Dolly 07/07 07/07 [facility] 1440 [facility], Medical Medical [employer] Group - [place] [facility] South Office [id number] Dolly 07/18 07/18 [place] Medical Visit [address], [facility] APRN Group Cardiology [facility] Lab Report [id number] Dolly09/09 [place] Medical 58[address], /2013 Medica l Harsh [employer] Group Cardiology [facility] South Office [id number] Dolly 10/17 10/17 [place] Medical Visit 8470 Mazel, [facility] [employer] Group Cardiology [facility] South Office [id number] Francis 04/17 04/17 [place] Medical Visit 4900 Radha, /2014 Dennys [facility] MD Group Cardiology [facility] [place] Lab Report [id number] Francis 04/24 04/24 [place] 5090 Radha, /2014 Dennys [facility] MD Group Cardiology [facility] [place] Office [id number] Francis 04/24 04/24 [place] Medical Visit 2160 Radha, Dennys [facility] MD Group Cardiology [facility] Lab Report [id number] Francis 05/01 05/01 [place] Medical 4520 Radha, Dennys House MD Group Cardiology [facility] Office [id number] Francis 05/08 05/08 [place] Medical Visit 1680 Radha, Dennys [facility] MD Group Cardiology Outpatient [id number] FRANCIS 07/31 [facility] Outpatient [id number] FRANCIS10/30 [facility] Mcgraws Outpatient [id number] FRANCIS10/31 [facility] RAD[facility] Outpatient [id number] 05/06 [facility] RADHA Mcgraws Outpatient [id number] [place] DAN 09/02 [facility] MAZEL Luis Outpatient [id number] FRANCIS08/18 [facility] RADHA Luis [facility] Phone [id number] 10/01 10/03 Cardiology Message /2016 [facility] [place] [facility] Outpatient [id number] 01/12 [facility] RADHA Luis [facility] Outpatient [id number] Francis 01/12 01/13 Cardiology Radha /2017 [facility] [place] [facility] MG Outside [id number] 02/04 02/06 Cardiology Medical /2017 [facility] [place] [facility] Outpatient [id number] FRANCIS02/09 [facility] RADHA Luis [facility] Ambulatory [id number] Francis 02/09 02/09 Cardiology Pre-Reg Radha /2017 Med [facility] [place] [facility] Outpatient [id number] FRANCIS02/16 [facility] RADHA Mcgraws [facility] Ambulatory [id number] Francis02/16 Cardiology Pre-Reg Radha /2017 Med [facility] [place] [facility] MG Phone [id number] 03/03 03/05 Cardiology Message /2017 [facility] Outpatient [id number] FRANCIS 03/16 [facility] RADHA Mcgraws [facility] Outpatient [id number] Francis 03/16 03/17 Cardiology Radha /2017 [facility]i [facility] Phone [id number] 05/12 05/14 Cardiology Message /2017 [facility] [place] [facility] Phone [id number] 09/02 09/04 Cardiology Message /2017 [facility] [place] [facility] Outpatient [id number] Francis 02/04 [facility] Radha Mcgraws Outpatient [id number] NURSE 02/04 [facility] VISIT /2018 Mcgraws [facility] Outpatient [id number] Francis 02/04 02/05 Cardiology Radha /2018 [facility] [place] [facility] Outpatient [id number] Francis 02/04 02/05 Radiology Radha /2018 [facility] [place] [facility] Outpatient [id number] Francis 02/11 Active [facility] Radha Mcgraws [facility] Outpatient [id number] Francis 02/11 02/12 Cardiology Radha /2018 [facility] [place] [facility] Phone [id number] 02/26 02/28 Cardiology Message /2018 [facility] [place] MG Outside [id number] 08/03 08/05 Cardiology Medical /2018 [facility] [place] [facility] MG Outside [id number] 11/01 11/03 Cardiology Medical /2019 [facility] [place] [facility] Phone [id number] 12/10 12/12 Cardiology Message /2019 [facility] Inpatient [id number] [facility] 12/11 12/15 [facility] [place] /2019 [facility] Outpatient [id number] L Dolly 12/27 Active [facility] Mazel Luis [facility] Ambulatory [id number] L Dolly 12/27 12/27 Cardiology Pre-Reg Mazel /2019 [facility] [place] [facility] Procedures Procedure Code Date Perfomer Comments Source Cryotherapy to skin [id number] 01/08/2018 multiple [facility] Me dical lesion<sup>1</sup> lesions on Group, MH his face. [facility] Implantation of [id number] 05/04/2015 3.0 years Medica l cardioverter remain - Group, defibrillator with dependent. [place] three electrode leads<sup>2</sup> Implantation of [id number] 05/04/2015 3.0 years MH Medica l cardioverter remain - Group defibrillator with dependent. three electrode leads<sup>1</sup> echocardiogram, [id number] 07/08/2014 Complete Medica l complete Group Cardiac [id number] 2009 Medical catheterization, Group, left [facility] heart<sup>3</sup> Implantation of [id number] Medica l defibrillator Group,[facility] Knee joint [id number] Medical operation Group,[facility], [place] Miscellaneous [id number] Lumbar spine Medica l operations<sup>4</s Group ,MH up> [facility] Cardiac [id number] 2009 Medical catheterization, Group left heart<sup>2</sup> Miscellaneous [id number] Lumbar spine Medica l operations<sup>3</s Group up> Miscellaneous [id number] 1Lumbar spine [place] operations<sup>1</s up> Assessment and Plan Assessment and [...] 1no regular exercise. Social History TypeResponse 12/11/2019 [facility] Alcohol Current, Type Beer. Frequency: 1-2 time [...]
--- OUTSIDE RECORDS SUMMARY | 2020-07-08 09:48 | XMS REPORT | Continuity of Care Document ---
:1945 Author Organization [facility] t Address [address] [place] [address] [address] [place] [address] Care Team Providers Name Role Phone SARA MANJARREZ Attending Clinician Unavailable Josseline VIZCARRA, Sara Attending Clinician Tamara VIZCARRA, Peter Sanderson Attending Clinician Amrita VIZCARRA, Misael Attending Clinician Toney العراقي MD Attending Clinician Sunday Mojica MD, Maty Attending Clinician [phone] Vinh VIZCARRA Attending Clinician Tommy Driscoll MD Attending Clinician Penny Attending Clinician Rodriguez Attending Clinician Unavailable Joanna Olivia Attending Clinician Unavailable Bam VIZCARRA Attending Clinician Tresa Crowe Attending Clinician Margaret Garcia Attending Clinician Jessica James Attending Clinician JOSSELINE Admitting Clinician Unavailable Tresa Crowe Admitting Clinician Payers Payer Name Policy Policy Number Effective Expiration Source Type Date Date [facility]EDIC[facility] Problems Condition Condition Condition Status Onset Resolution Last Treating Co mments Source Name Details Category Date Date Treatment Clinician Date 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 3-23 Ratna kes - is is 00:00: Medical 00 [...] NON Diagnosis Active 2019-12-20 Mem oria CAPTURED -14 21:58:00 l PACEMAKER NON 00:00: Luis CAPTURED 00 PACEMAKER Active 12/10/2019 [facility] MECHANICAL Condition Active 2015-05-08 Memoria COMPLICATI [...] 07/08/2014 Problem 12/30/2019 Data migrated from [employer] on 05/31/15.Butch a migrated from [employer] on 03/25/15. [facility] CARDI[facility] Condition Active 2015-05-08 Memoria ATHY 07-08 11:44:02 l 00:00: [place] CARDIOMYOP 00 ATHY Active 07/08/2014 Condition 5 Medical Group Asbestosis Problem Active 2019-12-30 M emoria (disorder) 07-07 22:35:18 l 00:00: Luis Asbestosis 00 (disorder) Active 07/07/2014 Problem 12/30/2019 Data migrated from [employer] on 03/25/15. [facility] Body mass Problem Active 2019-12-30 Me moria index 30+ 9- 22:35:18 l - obesity Body 00:00: Luis (finding) mass index 00 30+ - obesity (finding) Active 07/07/2014 Problem 12/30/2019 Data migrated from [employer] on 03/25/15. Medical Group,[facility] ASBESTOSIS Condition Active 2015-05-08 Memoria 9-11 11:44:02 l 00:00: [place] ASBESTOSIS 00 Active 07/07/2014 Condition 5 Medical Group BODY MASS Condition Active 2015-05-08 Memoria INDEX 9- 11:44:02 l 37.0-37.9, BODY 00:00: Kamer[place] n ADULT MASS INDEX 00 37.0-37.9, ADULT Active 07/07/2014 Condition 5 Medical Group DIZZINESS Diagnosis Active 2014-05-03 Memoria 05-03 11:52:00 l 00:00: [place] DIZZINESS 00 Active 05/03/2014 [place] Complete Problem Active 2019-12-30 Mem oria atrioventr 2-24 22:35:18 l icular Complete 00:00: Kameron n block atrioventr 00 (disorder) icular block (disorder) Active 12/20/2013 Problem 12/30/2019 Data migrated from [employer] on 05/31/15.Butch a migrated from [employer] on 03/25/15. Medical Group,[facility] ATRIOVENTR Condition Active 2015-05-08 Memoria ICULAR 2-24 11:44:02 l BLOCK, 00:00: Luis COMPLETE ATRIOVENTR 00 ICULAR BLOCK, COMPLETE Active 12/20/2013 Condition 5 Medical Group PACEMAKER, Condition Active 2015-05-01 Memoria PERMANENT 03-03 09:14:00 l 00:00: [place] PACEMAKER, 00 PERMANENT Active 03/03/2007 Condition 5 Medical Group Hypertensi Problem Resolve 2019-12-30 Memoria ve d 22:35:18 l disorder, Luis systemic Hypertensi arterial ve (disorder) disorder, systemic arterial (disorder) Resolved Problem 12/30/2019 Medical Group,[facility], [place] Rhythm Problem Resolve 2019-12-30 Mike richelle from d 22:35:18 l artificial Rhythm Herm natasha pacing from (finding) artificial pacing (finding) Resolved Problem 12/30/2019 Medical Group,[facility] [place] 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 [facility] Dyspnea on Problem Active 2019-12-30 M emoria exertion 22:35:18 l (finding) Dyspnea Herm natasha on exertion (finding) Active Problem 12/30/2019 Data migrated from [employer] on 05/31/15.Butch a migrated from [employer] on 03/25/15. [facility] Essential Problem Active 2019-12-30 Me moria hypertensi 22:35:18 l on [place] (disorder) Essential hypertensi on (disorder) Active Problem 12/30/2019 Medical Group,[facility] [place] Hyperlipid Problem Active 2019-12-30 M emoria emia 22:35:18 l (disorder) [place] n Hyperlipid emia (disorder) Active Problem 12/30/2019 Data migrated from [employer] on 05/31/15.Butch a migrated from [employer] on 03/25/15. [facility] CORONARY Condition Active 2015-05-08 M emoria ARTERY 11:44:02 l DISEASE CORONARY Cata nn ARTERY DISEASE Active Condition 05/08/2015 Medical Group HYPERTENSI Condition Active 2015-05-08 Memoria ON 11:44:02 l [place] HYPERTENSI ON Active Condition 05/08/2015 Medical Group HYPERLIPID Condition Active 2015-05-08 Memoria EMIA 11:44:02 l Luis HYPERLIPID EMIA Active Condition 05/08/2015 Medical Group DYSPNEA ON Condition Active 2015-05-08 Memoria EXERTION 11:44:02 l DYSPNEA Luis ON EXERTION Active Condition 05/08/2015 Medical Group ILLNESS, Diagnosis Active 2019-12-20 M emoria UNSPECIFIE 21:58:00 l D ILLNESS, [place]ameron n UNSPECIFIE D Active [facility] Discharge Problem 2014-05-06 2014-05-06 Memoria Diagnosis: 7-08 03:20:30 03:20:30 l Dizziness 05:00: [place] Discharge 00 Diagnosis: Dizziness 05/03/2014 05/06/2014 [facility] History of Past Illness Condition Condition Condition [...] migrated from [employer] on 05/12/15. Medical Group,[facility] Patient Problem Resolve 2011-102019-12-30 2019-12-30 Memoria with d 0-08 22:35:18 22:35:18 l cardiac Patient 00:00: Kameron huang pacemaker with 00 (finding) cardiac pacemaker (finding) Resolved 08/03/2012 Problem 12/30/2019 Data migrated from [employer] on 05/31/15.Butch a migrated from [employer] on 05/03/15. Medical Group,[facility] PRE-OPERAT Condition Inactiv 2015-05-08 2015-05-08 Memoria HAYLEY e - 11:44:02 11:44:02 l CARDIOVASC 00:00: Kameron huang [...] reaction 00 Center s Sulfa Propensi Active [facility] (Sulfona ty to 2-19 [facility] - mide adverse 00:00: Medical Antibiot reaction 00 Center ics) s Tetanus Propensi Active 2020-[address] [facility] [address] Vaccines ty to 2-19 [facility] - And adverse 00:00: Medical Toxoid reaction 00 Center s tetanus tetanus Active Memoria toxoid<s toxoid<s l up>2</parker up>2</parker K[place] n p> p> Bactrim Bactrim Active Memoria l [place] BACTRIM BACTRIM Active Memoria l [place] TETANUS TETANUS Active Memoria TOXOID TOXOID l Luis Social History Social Habit Start Date Stop Date Quantity Comments Source History [facility] Alcohol [facility] Std Drinks [facility] History [place] Alcohol [facility] - Binge [facility] Sex Assigned At [facility] History SDOH Alcohol 2019-12-15 2019-12-[address] [facility] - Frequency 00:00:00 00:00:00 [facility] Social History 2019-12-11 2019-12-11 [facility] 03:44:19 03:44:19 Smoking Status Start Date Stop Date Source Former smoker 2020-02-01 00:00:00 2020-02-01 00:00:00 [facility] Social [facility] Medications Ordered Filled Start Stop Current Ordering Indication Dosage Frequency Signature Comments Components Source Medication Medication Date Date Medication? Clinician (SIG) Name Name rivaroxaban 2020-0 Yes 15mg Q.5D Take [address] [facility] (XARELTO) 4-03 tablet (15 [facility] - 15 mg Tab 00:00: mg total) Med ical tablet 00 by mouth 2 Center (two) times daily. zinc 2020-0 Yes 177g Apply [address] [facility] oxide-bautista 4-02 g [facility] - latum 00:00: topically Medical (CRITIC-AID [address] ) 20-51 % (perianal Pste excoriatio topical n). paste promethazin 2020-0 2020- No 12.5mg Take [address] e 4-02 04-09 tablet [facility] - (PHENERGAN) 00:00: 23:59 (12.5 mg M edical 12.5 MG 00 :00 total) by Center tablet mouth every 6 (six) hours as needed for up to 7 days. ceftaroline 2020-0 Yes 600mg Inject [address] (TEFLARO) 3-05 mg [facility] - MBP 600 mg 00:00: intravenou M edical in 100 mL 00 sly every Cente r NS 12 (twelve) hours. aspirin 81 2019- No 81mg QD Take [address] [facility] [facility] [...] No 750mg Inject [address] [facility] n 12-29 mLs (750 [facility] - (LEVAQUIN) 00:00: 00:00 mg total) M edical IVPB 750 mg 00 :00 intravenou Ce nter in dextrose sly every 5% (D5W) other day. 150 mL polyethylen 2019- No 17g QD Take [address] [facility] e glycol 12-29-08 by mouth [facility] - (GLYCOLAX) 00:00: 23:59 daily for M edical 17 gram 00 :00 3 days. [place] packet furosemide 2019- No 40mg QD Take [address] [facility] (LASIX) 40 12-28-04 by mouth Luke s - MG tablet 14:54: 00:00 daily. Medic al 31 :00 [place] amLODIPine 2019- No 5mg QD Take [address] (NORVASC) 5 12-28-04 by mouth Pinky es - MG tablet 14:54: 00:00 daily. Medic al 31 :00 Center aspirin 81 2020- No 81mg QD Take [address] MG EC 12-28-04 by mouth [facility] - tablet 14:54: 00:00 daily. Medical 31 :00 Center metoprolol 2019- No 25mg Take [address] [facility] (LOPRESSOR) 12-28-04 by mouth. Ratna kes - 25 MG 14:54: 00:00 Medical tablet 31 :00 [place] lisinopril 2020- No 20mg QD Take [address] [facility] (PRINIVIL,Z 12-28-04 by mouth Pinky es - ESTRIL) 20 14:54: 00:00 daily. Medi yoana MG tablet 31 :00 [place] pravastatin 2019-0 2020- No 20mg QD Take [address] [facility] (PRAVACHOL) 12-28 03-04 by mouth Pinky es - 20 MG 14:54: 00:00 daily. Medical tablet 31 :00 [place] sertraline 2019-0 2020- No 50mg QD Take [address] [facility] (ZOLOFT) 25 12-28-04 by mouth Pinky es - MG tablet 14:54: 00:00 daily. Medic al 31 :00 [place] traMADol 2019-0 2020- No 50mg Take [address] (ULTRAM) 50 12-28-04 by mouth Pinky es - mg tablet 14:54: 00:00 every 6 Medi yoana 31 :00 (six) Center hours as needed for Pain. tamsulosin 2019-0 2020- No .4mg Take 0.[address] (FLOMAX) - 03-04 mg by [facility] - 0.4 mg Cap 14:54: 00:00 mouth once Medical 24 hr 31 :00 at Center capsule bedtime. ondansetron 0 2020- No 4mg Take [address] [facility] (ZOFRAN-ODT 12-28-04 by mouth Pinky es - ) 4 MG 14:54: 00:00 every 8 Medical disintegrat 31 :00 (eight) Cente r ing tablet hours as needed for Nausea. acetaminoph 2019-0 2020- No 650mg Take [address] en - 03-04 mg by [facility] - (TYLENOL) 14:54: 00:00 mouth Medica l 325 MG 31 :00 every 6 Center tablet (six) hours as needed for Pain. DAPTOmycin 2020-0 Yes 1000mg Q24H Inject [facility] (CUBICIN) [...] Q.5D Take [address] ate 12-28 tablet by Michael - (SENOKOT S) 00:00: 23:59 mouth 2 Me dical 8.6-50 mg 00 :00 (two) Center per tablet times daily for 30 days. terazosin 2019- No 2mg QD Take 1 [facility] (HYTRIN) 2 12-28- capsule (2 Ratna kes - MG capsule 00:00: 23:59 mg total) M edical 00 :00 by mouth Center nightly for 30 days. pravastatin 2019- No 20mg QD Take [address] [facility] (PRAVACHOL) 12-28- tablet (20 L ukes - 20 MG 00:00: 00:00 mg total) Medica l tablet 00 :00 by mouth Center nightly for 30 days. heparin 2019-2019- No 150U/h Inject [facility] infusion 12-28 150-3,500 [facility] - 25,000 00:00: 00:00 Units/hr Medica l [...] [address] [facility] (DULCOLAX) 3- 03-14 suppositor Ratna kes - 10 mg 00:00: 23:59 y (10 mg Medical suppository 00 :00 total) Center rectally daily as needed for up to 10 days. ceftaroline 2020-0 2020- No 400mg Inject [address] (TEFLARO) 3-04 03-05 mg [facility] - MBP 400 mg 00:00: 00:00 intravenou Medical in 100 mL 00 :00 sly every Cente r NS 12 (twelve) hours. Aspirin 81 2020-0 Yes 81 mg = 1 Me moria MG Enteric 2-19 tab, PO, l Coated 01:34: Daily, 0 [place] Tablet 00 Refill(s) pravastatin 2020-0 Yes 80 [...] tab, PO, l tablet 01:34: Daily, 0 [place] 00 Refill(s) cyclobenzap 2020-0 Yes 10 mg = 1 M emoria rine 10 mg 2-19 tab, PO, l oral tablet 01:34: Q8H, PRN He rmann 00 Muscle Spasms, 0 Refill(s) Docusate 2020-0 Yes 100 mg = 1 Mem oria Sodium 100 2-19 cap, PO, l MG Oral 01:34: BID, 0 [place] Capsule 00 Refill(s) Furosemide 2020-0 Yes 40 mg = 1 Me moria 40 MG Oral 2-19 tab, PO, l Tablet 01:34: Daily, 0 [place] 00 Refill(s) lisinopril 2020-0 Yes 20 mg [...] Memoria 2-18 (Same As: l 02:00: Maxipime) MEDICATION WASTE Product Size: 1000 mg Product Wasted: ___ mg Flagyl 2019-0 No Notes: Memoria 2-18 (Same as: l 02:00: Flagyl) Avoid alcohol. Tylenol 2019-0 No Notes: Do Memor ia 2-18 not exceed l 01:32: 4 gm/day. Luis (Same as: Tylenol) Potassium 2019-0 No Notes: Memori a Chloride 2-17 (Same as: l 18:08: K-Dur 20) [place] 00 "Do Not Crush" Give with food and full glass of water For patients unable to swallow tablet, dissolve in one half glass of water. Allow about 2 minutes for the tablets to disintegra te. Stir before giving to prepare slurry and administer . Please exclude Patient s with feeding tube less than 14 Sami (Dobhoff, J-tube etc) and pediatric and patients. Potassium 2019-0 No Notes: Memori a Chloride [...] s with feeding tube less than 14 Sami (Dobhoff, J-tube etc) and pediatric and patients. Lasix 2019-0 No Notes: Memoria 2-16 (Same as: l 23:45: Lasix) May cause GI upset. Give with food or milk. Potassium 2019-0 No Notes: Memori a Chloride 2-16 (Same [...] s with feeding tube less than 14 Sami (Dobhoff, J-tube etc) and pediatric and patients. tramadol No Notes: Not Mem oria hydrochlori 2-16 to exceed l de 50 MG 22:07: 400mg/day. Her bui Oral Tablet 00 (Same As: Ultram) Flexeril No Notes: Memoria 2-16 (Same As: l 22:07: Flexeril) metoprolol No 25 mg, Memor ia tartrate 2-16 Route: PO, l 15:00: Drug form: TAB, BID, Dosing Weight 122.955, kg, Start date: 12/12/19 9:00:00 [employer], Duration: 30 day, Stop date: 01/10/20 17:00:00 CDT metoprolol No Notes: Memor ia tartrate 2-16 (Same as: l 04:00: Lopressor) Pravastatin No Notes: Mike richelle 2-16 (Same as: l 03:00: Pravachol) tamsulosin No Notes: Memor ia 2-16 (Same As: l 03:00: Flomax) Luis 00 "Do Not Crush" Lasix 2019-0 No Notes: Memoria 2-15 (Same as: l 17:49: Lasix) [place] MEDICATION WASTE Product Size: 40 mg Product Wasted: ___ mg Amlodipine 2019-0 No 1 cap, Memor ia 5 MG / 2-15 Route: PO, l Benazepril 15:00: Drug Form: H ermann hydrochlori 00 CAP, de 20 MG Dosing Oral Weight Capsule 122.955, kg, Daily, Start date: 12/11/19 9:00:00 [employer] MANAGER, Duration: 30 day, Stop date: 01/09/20 9:00:00 CDT Aspirin 81 0 No Notes: Do Me moria MG Enteric 2-15 not crush l Coated 15:00: or chew. [place] Tablet 00 (Same As: Ecotrin) Sertraline No Notes: Memor ia 2-15 (Same as: l 15:00: Zoloft) Luis Docusate 0 No Notes: Memoria 2-15 (Same as: l 15:00: Colace) Luis (Do Not Crush) amLODIPine No Notes: Memor ia 2-15 (Same as: l 15:00: Norvasc) [place] lisinopril 0 No Notes: Memor ia 2-15 (Same as: l 15:00: Prinivil, Luis 00 Zestril) Acetaminoph 0 No Notes: Mike richelle en 325 MG / 2-15 (Same as: l Hydrocodone 04:14: [place] Cata nn Bitartrate 00 325/5) Do 5 MG Oral not exceed Tablet 4gm/day of [[place] acetaminop 5/325] hen. Dextrose No 12.5 gm, Memor ia 50% Syringe 2-15 25 mL, l (D50W) 04:10: Route: [place] 00 IVP, Drug Form: INJ, Dosing Weight 122.955, kg, PRN, PRN Blood Glucose Results, Start date: 12/10/19 22:10:00 [employer]GER, Duration: 30 day, Stop date: 01/09/20 23:09:00 CDT, 0 Glucagon 2020-0 No 1 mg, Memoria 2-15 Route: IM, l 04:10: Drug form: PDR/INJ, PRN, Dosing Weight 122.955, kg, PRN Blood Glucose Results, Start date: 12/10/19 22:10:00 [employer] MANAGER, Duration: 30 day, Stop date: 01/09/20 23:09:00 CDT, 0 Ondansetron 2019- No Notes: Mike richelle 2-15 (Same as: l 04:10: Zofran) MEDICATION WASTE Product Size: 4 mg Product Wasted: ___ mg BD Normal 2019-0 No Notes: Memori a Saline 2-15 Same as: l Flush 03:33: BD Posiflush Sterile Sodium 2019- No 250 mL, Memoria Chloride 2-15 Route: l 0.9% IV 03:33: IVPB, Start date: 12/10/19 21:33:00 [employer] MA[employer]GER, Duration: 30 day, Stop date: 01/09/20 22:32:00 CDT, PRN Line Flush, 0 Cephalexin Yes 500 mg = 1 M emoria 500 MG Oral 4-11 cap, PO, l Capsule 13:43: QID, X 7 Kameron n [Keflex] 00 day, # 28 cap, 0 Refill(s), Pharmacy: [id number] Metolazone 2017-10 Yes 2.5 mg = 1 M emoria 2.5 MG Oral 1-07 tab, PO, l Tablet 15:10: Daily, # 30 tab, 3 Refill(s), [facility]acy: [id number] Metolazone 2017- No 2.5 mg = 1 M emoria 2.5 MG Oral 7-17 tab, PO, l Tablet 17:38: Daily, # 30 tab, 3 Refill(s), Pharmacy: [id number] Metolazone 2017- Yes 2.5 mg = 1 M emoria 2.5 MG Oral 5-08 tab, PO, l Tablet 17:57: Daily, # [place] 00 30 tab, 6 Refill(s), Pharmacy: [id number] labetalol Yes 100 mg = 1 Me moria 100 mg oral 3-19 tab, PO, l tablet 17:14: BID, # 60 Kameron n 00 tab, 3 Refill(s), other magnesium Yes 400 mg = 1 Me moria oxide 400 3-19 tab, PO, l mg oral 16:37: BID, 0 Luis tablet 00 Refill(s) Hydrochloro Yes 25 mg, PO, Memoria thiazide 3-19 Daily, 0 l 16:36: Refill(s) [place] Garlic Oil Yes 1,000 mg Mem oria oral 3-19 =, PO, l capsule 16:35: Daily, Luis 00 TAKES 1-2 TABLET, 0 Refill(s) Naproxen Yes 220 mg = 1 Mem oria sodium 220 3-19 cap, PO, l MG Oral 16:15: PRN, 0 Luis Capsule 00 Refill(s) [Aleve] LOVAZA 1 GM Yes Take one Me moria CAPS 7-13 tab twice l 11:44: daily Luis ZOLOFT 25 Yes one daily Mem oria MG TABS 7-13 l 11:44: [place] TERAZOSIN No Take one Mike richelle HCL [...] THIAZIDE 25 7-01 l MG TABS 00:00: Luis 00 PRAVASTATIN Yes Take two Me moria SODIUM 40 6-29 tabs by l MG TABS 11:03: mouth once Herm natasha daily LOTREL Yes Take one Memoria 10-40 MG 6-29 tab daily l CAPS 00:00: SPIRONOLACT No 1 tablet Me moria ONE 25 MG 6-29 daily l TABS 00:00: [place] 00 FUROSEMIDE 2014-0 No one by Memor ia 40 MG TABS 6-29 mouth l 00:00: daily LOTREL 5-20 2014-0 Yes one by Mike richelle MG CAPS 6-29 mouth l 00:00: daily SPIRONOLACT 2014-0 No 1 tablet Me moria ONE 25 MG 6-29 daily l TABS 00:00: FUROSEMIDE 2014-0 No one by Memor ia 40 MG TABS 6-29 mouth l 00:00: daily LOTREL 0 Yes Take one Memoria 10-40 MG 6-22 [...] tab daily l MG TABS 00:00: HYDROCHLORO 0 Yes Take one Me moria THIAZIDE 25 9-22 tab daily l MG TABS 09:50: TAMSULOSIN 2013- Yes 1 tablet Mem oria HCL 0.4 MG 9-22 at bedtime l CAPS 00:00: LABETALOL Yes Take 1 tab Me moria HCL 200 MG 9-11 by mouth l TABS 00:00: twice daily LABETALOL 2013- Yes Take 1 tab Me moria HCL 200 MG 9-11 by mouth l TABS 00:00: twice daily SERTRALINE 2013- Yes Take one Mem oria HCL 50 MG 7-09 tab daily l TABS 06:16: LOVAZA 1 GM Yes Take one Me moria CAPS 7-09 tab twice l 06:16: daily Luis 00 LABETALOL Yes Take 1/2 Mike richelle HCL 200 MG 7-09 tab by l TABS 06:16: mouth Luis twice daily tamsulosin Yes 0 Memoria 0.4 mg oral 7-08 Refill(s) l capsule 15:19: [place] 00 sertraline Yes 0 Memoria 25 mg oral 7-08 Refill(s) l tablet 15:19: [place] 00 pravastatin Yes 0 Memori a 80 mg oral 7-08 Refill(s) l tablet 15:19: [place] 00 Lovaza Yes 0 Memoria 7-08 Refill(s) l 15:19: Luis 00 labetalol Yes 0 Memoria 200 mg oral 7-08 Refill(s) l tablet 15:19: Luis 00 Hydrochloro Yes 0 Memori a thiazide 7-08 Refill(s) l 15:18: Luis 00 Aspirin 81 Yes 0 Memoria MG Enteric 7-08 Refill(s) l Coated 15:18: Tablet 00 Amlodipine Yes 0 Memoria 5 MG / 7-08 Refill(s) l Benazepril 15:18: hydrochlori 00 de 20 MG Oral Capsule Aleve Yes 0 Memoria 7-08 Refill(s) l 15:17: 00 Saline No Notes: Memoria Flush 0.9% 708 (Same as: l 14:39: BD Posiflush) ASPIRIN 81 Yes Take one Mem oria MG TABS 2-24 tab by l 00:00: mouth [place] 00 every day PLAVIX 75 No Take one Mike richelle MG TABS 2-24 tab daily l 00:00: (on hold) Luis PLAVIX 75 No Take one Mike richelle MG TABS 2-24 tab daily l 00:00: (on hold) Immunizations Ordered Immunization Filled Immunization Date Status Commen ts Source Name Name Pneumococcal 2020-01-[address] [facility] (Pre[facility]ar) [facility] Vital Signs Vital Name Observation Time Observation Value Comments Source Systolic blood 2020-01-27 23:30:00 136 mm[Hg] [facility] Diastolic blood 2020-01-27 23:30:00 78 mm[Hg] [facility] Heart rate 2020-01-27 23:30:00 63 /min [facility] Respiratory rate 2020-01-27 23:30:00 15 /min [facility] Oxygen saturation in 2020-01-27 23:30:00 98 /min [facility] - Arterial blood by Medical Ce nter Pulse oximetry Body temperature 2020-01-27 19:00:00 36.67 Reji [facility] Body height 2020-01-27 07:00:00 193 cm [facility] Body weight Measured 2020-01-27 07:00:00 109.7 kg [facility] BMI 2020-01-27 07:00:00 29.45 kg/m2 [facility] Heart Rate 2019-12-15 02:00:00 [facility] Respitory Rate 2019-12-15 02:00:00 Memori al Luis Systolic (mm Hg) 2019-12-15 02:00:00 Mike rial [place] Diastolic (mm Hg) 2019-12-15 02:00:00 Mem orial [place] Heart Rate 2019-12-14 22:00:00 [facility] Luis Respitory Rate 2019-12-14 22:00:00 Memori al Luis Systolic (mm Hg) 2019-12-14 22:00:00 Mike rial [place] Diastolic (mm Hg) 2019-12-14 22:00:00 Mem orial Luis Heart Rate 2019-12-14 18:00:00 [facility] Luis Respitory Rate 2019-12-14 18:00:00 Memori al Luis Systolic (mm Hg) 2019-12-14 18:00:00 Mike rial Luis Diastolic (mm Hg) 2019-12-14 18:00:00 Mem orial [place] Temperature Oral (F) 2019-12-11 14:26:00 99.9 F [facility] Luis Temperature Oral (F) 2019-12-11 09:51:00 99.7 F [facility] Luis Temperature Oral (F) 2019-12-11 06:00:00 98.9 F [facility] [place] Height 2019-12-11 02:49:00 182.88 cm [facility] [place] Weight 2019-12-11 02:49:00 [facility] Luis BMI Calculated 2019-12-11 02:49:00 Memori al Luis Weight 2019-02-11 13:55:00 [facility] [place] BMI Calculated 2019-02-11 13:55:00 Memori al [place] Height 2019-02-11 13:55:00 182.88 cm [facility] [place] Systolic (mm Hg) 2019-02-11 13:55:00 Mike rial [place] Diastolic (mm Hg) 2019-02-11 13:55:00 Mem orial Luis Temperature Oral (F) 2019-02-11 13:55:00 98.2 F [facility] [place] Heart Rate 2019-02-11 13:55:00 [facility] Luis BMI Calculated 2019-02-04 13:05:00 Memori al [place] Weight 2019-02-04 13:05:00 [facility] [place] Height 2019-02-04 13:05:00 182.88 cm [facility] [place] Heart Rate 2019-02-04 13:05:00 [facility] [place] Temperature Oral (F) 2019-02-04 13:05:00 98.6 F [facility] Luis Systolic (mm Hg) 2019-02-04 13:05:00 Mike rial [place] Diastolic (mm Hg) 2019-02-04 13:05:00 Mem orial Luis BMI Calculated 2018-01-12 16:06:00 Memori al Luis Weight 2018-01-12 16:06:00 [facility] Luis Height 2018-01-12 16:06:00 182.88 cm [facility] Luis Systolic (mm Hg) 2018-01-12 16:06:00 Mike rial [place] Diastolic (mm Hg) 2018-01-12 16:06:00 Mem orial Luis Heart Rate 2018-01-12 16:06:00 [facility] Luis Temperature Oral (F) 2018-01-12 16:06:00 98.0 F [facility] [place] Weight 2015-05-08 16:44:02 [facility] [place] Temperature Oral (F) 2015-05-08 16:44:02 97.8 F [facility] [place] Systolic (mm Hg) 2015-05-08 16:44:02 Mike rial [place] Diastolic (mm Hg) 2015-05-08 16:44:02 Mem orial [place] Heart Rate 2015-05-08 16:44:02 [facility] [place] Weight 2015-05-01 12:43:22 [facility] Luis Temperature Oral (F) 2015-05-01 12:43:22 98.0 F [facility] [place] Systolic (mm Hg) 2015-05-01 12:43:22 Mike rial Luis Diastolic (mm Hg) 2015-05-01 12:43:22 Mem orial [place] Heart Rate 2015-05-01 12:43:22 [facility] Luis Weight 2015-04-24 13:12:52 [facility] [place] Heart Rate 2015-04-24 13:12:52 [facility] Luis Systolic (mm Hg) 2015-04-24 13:12:52 Mike rial Luis Diastolic (mm Hg) 2015-04-24 13:12:52 Mem orial [place] Temperature Oral (F) 2015-04-24 13:12:52 97.9 F [facility] Luis Weight 2015-04-17 13:21:41 [facility] [place] Weight 2014-10-17 14:47:31 [facility] Luis Temperature Oral (F) 2014-10-17 14:47:31 98.1 F Memorial [place] Systolic (mm Hg) 2014-10-17 14:47:31 Mike rial Luis Diastolic (mm Hg) 2014-10-17 14:47:31 Mem orial Luis Heart Rate 2014-10-17 14:47:31 [facility] [place] Weight 2014-07-18 14:50:00 [facility] [place] Systolic (mm Hg) 2014-07-18 14:50:00 Mike rial [place] Diastolic (mm Hg) 2014-07-18 14:50:00 Mem orial [place] Heart Rate 2014-07-18 14:50:00 [facility] Temperature Oral (F) 2014-07-18 14:50:00 97.9 F [facility] Respitory Rate 2014-07-18 14:50:00 Memori al Luis Weight 2014-07-07 15:11:22 [facility] Systolic (mm Hg) 2014-07-07 15:11:22 Mike rial [place] Diastolic (mm Hg) 2014-07-07 15:11:22 Mem orial Luis Heart Rate 2014-07-07 15:11:22 [facility] [place] Respitory Rate 2014-07-07 15:11:22 Memori al [place] Temperature Oral (F) 2014-07-07 15:11:22 98.7 F [facility] [place] Diastolic (mm Hg) 2014-05-03 16:50:00 Mem orial [place] Heart Rate 2014-05-03 16:50:00 [facility] Respitory Rate 2014-05-03 16:50:00 Memori al [place] Systolic (mm Hg) 2014-05-03 16:50:00 Mike rial [place] Weight 2014-05-03 14:25:00 [facility] BMI Calculated 2014-05-03 14:25:00 Memori al Luis Height 2014-05-03 14:25:00 182.88 cm [facility] [place] Systolic (mm Hg) 2014-05-03 14:25:00 Mike rial Luis Respitory Rate 2014-05-03 14:25:00 Memori al Luis Heart Rate 2014-05-03 14:25:00 [facility] Diastolic (mm Hg) 2014-05-03 14:25:00 Mem orial [place] Temperature Oral (F) 2014-05-03 14:25:00 98.1 F [facility] Weight 2013-12-20 17:14:00 [facility] [place] Height 2013-12-20 17:14:00 [facility] Systolic (mm Hg) 2013-12-20 17:14:00 Mike rial [place] Diastolic (mm Hg) 2013-12-20 17:14:00 Mem orial Luis Heart Rate 2013-12-20 17:14:00 [facility] Procedures Procedure Date / Time Performing Clinician Source Performed ARRYTHMIA IMPLANT REPORT 2020-02-01 10:41:12 Provider, Default [facility] CARDIAC CATH REPORT - 2020-01-31 08:40:25 Provider, Default [facility] SCAN [facility] ARRYTHMIA IMPLANT REPORT 2020-01-31 08:40:23 Provider, Default [facility] RHYTHM STRIP - SCAN 2020-01-31 08:40:18 Provider, Default [facility] POCT-GLUCOSE METER 2020-01-27 17:58:00 Sara Manjarrez [facility] POCT-GLUCOSE METER 2020-01-27 13:44:00 Sara Manjarrez [facility] CBC (HEMOGRAM ONLY) 2020-01-27 04:57:00 Sara Manjarrez [facility] BASIC METABOLIC PANEL (7) 2020-01-27 04:57:00 Lyn Phipps [facility] MAGNESIUM 2020-01-27 04:57:00 Moise Lyn Gillen [facility] POCT-GLUCOSE METER 2020-01-27 03:43:00 Josseline merly [facility] POCT-GLUCOSE METER 2020-01-26 18:14:00 Josseline [facility] REPORT OF PROCEDURE - 2020-01-26 14:33:29 Yesenia Crowe [facility] ENDOSCOPY [facility] UPPER ENDOSCOPY,PEG 2020-01-26 14:00:00 Amrita [facility] POCT-GLUCOSE METER 2020-01-26 12:38:00 Sara Manjarrez [facility] CBC (HEMOGRAM ONLY) 2020-01-26 05:23:00 Josseline merly [facility] BASIC METABOLIC PANEL (7) 2020-01-26 05:23:00 Sara Manjarrez [facility] POCT-GLUCOSE METER 2020-01-26 00:16:00 Josseline merly [facility] ECHOCARDIOGRAM REPORT - 2020-01-25 21:10:30 Provider, Default [facility] TROPONIN I 2020-01-25 17:56:00 Josseline merly [place] POCT-GLUCOSE METER 2020-01-25 15:32:00 Josseline, [facility] POCT-GLUCOSE METER 2020-01-25 12:14:00 Josseline, [facility] CREATINE KINASE (CK) 2020-01-25 05:26:00 Karuna Weeks [place] BASIC METABOLIC PANEL (7) 2020-01-25 05:26:00 Sara Manjarrez CH, I [facility] TROPONIN I 2020-01-25 05:26:00 Sara Manjarrez [place] CBC W/PLT COUNT & AUTO 2020-01-25 05:26:00 Sara Manjarrez [facility] XR CHEST 1 VIEW 2020-01-25 00:23:00 Niyah Montilla [facility] - PORTABLE/BEDSIDE [facility] TROPONIN I 2020-01-25 00:12:00 Sara Manjarrez [place] GLUCOSE 2020-01-25 00:12:00 Sara Manjarrez [place] ECG 12-LEAD 2020-01-24 22:42:36 Sunday Mojica Niyah [facility] LIMITED 2D ECHOCARDIOGRAM 2020-01-24 19:00:54 Russell Montilla [facility] XR CHEST 1 VIEW 2020-01-24 16:27:00 Niyah Montilla [facility] - PORTABLE/BEDSIDE [facility] POCT-GLUCOSE METER 2020-01-24 15:43:00 Sara Manjarrez [facility] ECG 12-LEAD 2020-01-24 15:22:15 Unknown, Hl7 Doctor [facility] AICD GENERATOR & LEADS - 2020-01-24 10:46:00 Phan Montilla cia [facility] - INSERTION W/ GENERAL [facility] ter ANESTHESIA (SING/DUAL/MULT) POCT-GLUCOSE METER 2020-01-24 04:52:00 Sara Manjarrez [facility] CBC (HEMOGRAM ONLY) 2020-01-24 02:47:00 Sara Manjarrez [facility] BASIC METABOLIC PANEL (7) 2020-01-24 02:47:00 Juanita Almodovar [place] MAGNESIUM 2020-01-24 02:47:00 Scooby Juanita Amish [facility] CBC (HEMOGRAM ONLY) 2020-01-23 03:27:00 Josseline [facility] POCT-GLUCOSE METER 2020-01-22 17:48:00 Josseline [facility] POCT-GLUCOSE METER 2020-01-22 12:18:00 Josseline [facility] POCT-GLUCOSE METER 2020-01-22 06:11:00 Josseline [facility] CBC (HEMOGRAM ONLY) 2020-01-22 03:53:00 Josseline [facility] POCT-GLUCOSE METER 2020-01-21 23:45:00 Josseline [facility] POCT-GLUCOSE METER 2020-01-21 17:58:00 Josseline [facility] POCT-GLUCOSE METER 2020-01-21 11:57:00 Josseline [facility] POCT-GLUCOSE METER 2020-01-21 06:25:00 Josseline [facility] BASIC METABOLIC PANEL (7) 2020-01-21 04:42:00 Sara Manjarrez [facility] CBC (HEMOGRAM ONLY) 2020-01-21 04:42:00 Josseline [facility] XR CHEST 1 VIEW 2020-01-21 03:10:00 [facility] [place] POCT-GLUCOSE METER 2020-01-20 23:16:00 Josseline [facility] POCT-GLUCOSE METER 2020-01-20 18:20:00 Josseline [facility] POCT-GLUCOSE METER 2020-01-20 13:14:00 Josseline [facility] POCT-GLUCOSE METER 2020-01-20 05:33:00 Josseline, [facility] CBC (HEMOGRAM ONLY) 2020-01-20 04:57:00 Josseline [facility] BASIC METABOLIC PANEL (7) 2020-01-20 04:49:00 Sara Manjarrez [facility] HEPATIC FUNCTION PANEL 2020-01-20 04:49:00 [facility]APTT 2020-01-20 04:49:00 Josseline [facility] POCT-GLUCOSE METER 2020-01-19 23:52:00 Josseline [facility] APTT 2020-01-19 12:22:00 Josseline [facility] CHEST WITHOUT IV 2020-01-19 10:53:00 Narendra [facility] POCT-GLUCOSE METER 2020-01-19 05:59:00 Josseline [facility] BASIC METABOLIC PANEL (7) 2020-01-19 04:59:00 Sara Manjarrez [facility] HEPATIC FUNCTION PANEL 2020-01-19 04:59:00 [facility] PT/APTT 2020-01-19 04:59:00 Josseline [facility] C-REACTIVE PROTEIN 2020-01-19 04:59:00 Narendra [facility] CREATINE KINASE (CK) 2020-01-19 04:59:00 Narendra [facility] MAGNESIUM 2020-01-19 04:59:00 Josseline [facility] CBC (HEMOGRAM ONLY) 2020-01-19 04:59:00 Josseline [facility] APTT 2020-01-18 23:15:00 Josseline [facility] POCT-GLUCOSE METER 2020-01-18 23:14:00 Josseline [facility] POCT-GLUCOSE METER 2020-01-18 17:39:00 Josseline [facility] US THORACENTESIS 2020-01-18 16:56:00 Josseline [facility] APTT 2020-01-18 16:51:00 Josseline [facility] BLOOD CULTURE 2020-01-18 16:50:00 Ajith Mackey [place] BODY FLUID CULTURE + GRAM 2020-01-18 16:21:00 Sara Manjarrez [facility] FUNGUS CULTURE + SMEAR 2020-01-18 16:21:00 [facility] B[facility] CELL COUNT 2020-01-18 16:20:00 Sara Manjarrez [facility] WITH DIFFERENTIAL [facility] GLUCOSE PLEURAL FLUID 2020-01-18 16:20:00 [facility] PROTEIN, TOTAL, PLEURAL 2020-01-18 16:20:00 Josseline [facility] LACTATE DEHYDROGENASE 2020-01-18 16:20:00 Sara Manjarrez [facility] (LD) PLEURAL FLUID [facility] CYTOLOGY 2020-01-18 16:20:00 [facility] 1 VIEW 2020-01-18 15:53:00 Cassidy Parra [facility] - PORTABLE/BEDSIDE [facility] POCT-GLUCOSE METER 2020-01-18 12:04:00 [facility] 2020-01-18 04:56:00 Sara Manjarrez [facility] PORTABLE/BEDSIDE [facility] BASIC METABOLIC PANEL (7) 2020-01-18 04:10:00 Sara Manjarrez [facility] HEPATIC FUNCTION PANEL 2020-01-18 04:10:00 Sara Manjarrez [facility] PT/APTT 2020-01-18 04:10:00 Sara Manjarrez [place] CREATINE KINASE (CK) 2020-01-18 04:10:00 Josseline [facility] LACTATE DEHYDROGENASE 2020-01-18 04:10:00 [facility] CBC (HEMOGRAM ONLY) 2020-01-18 04:10:00 Sara Manjarrez [facility] POCT-GLUCOSE METER 2020-01-18 00:34:00 Josseline, [facility] PLATELET COUNT 2020-01-17 21:22:00 Josseline [facility] APTT 2020-01-17 21:22:00 Josseline [facility] POCT-GLUCOSE METER 2020-01-17 18:41:00 Josseline [facility] RHYTHM STRIP - SCAN 2019-12-31 14:21:46 Provider, Default [facility] ARRYTHMIA IMPLANT REPORT 2019-12-31 14:21:35 Provider, Default C [facility] POCT-GLUCOSE METER 2019-12-30 12:28:00 [facility] POCT-[facility]UCOSE METER 2019-12-30 06:13:00 Americo [facility] MAGNESIUM 2019-12-30 04:06:00 Carmen [facility] CALCIUM, IONIZED 2019-12-30 04:06:00 [facility] COMPREHENSIVE METABOLIC 2019-12-30 04:06:00 [facility] PHOSPHORUS 2019-12-30 04:06:00 [facility] APTT 2019-12-30 04:06:00 Dylan Leach [facility] CBC W/PLT COUNT & AUTO 2019-12-30 04:06:00 Carmen [facility] DIFFERENTIAL [facility] [place] POCT-GLUCOSE METER 2019-12-29 21:56:00 Americo [facility] POTASSIUM 2019-12-29 21:54:00 Carmen [facility] MAGNESIUM 2019-12-29 21:54:00 Carmen [facility] POCT-GLUCOSE METER 2019-12-29 18:13:00 Americo [facility] POCT-GLUCOSE METER 2019-12-29 12:15:00 Tyrone Driscoll [facility] APTT 2019-12-29 04:22:00 [facility] MAGNESIUM 2019-12-29 04:21:00 Carmen [facility] CALCIUM, IONIZED 2019-12-29 04:21:00 Francesco [facility] COMPREHENSIVE METABOLIC 2019-12-29 04:21:00 Francesco [facility] PHOSPHORUS 2019-12-29 04:21:00 Francesco [facility] B-TYPE NATRIURETIC FACTOR 2019-12-29 04:21:00 [facility] ([facility] CBC W/PLT COUNT & AUTO 2019-12-29 04:21:00 Carmen [facility] DIFFERENTIAL [facility] [place] POCT-GLUCOSE METER 2019-12-29 00:38:00 Tyrone Driscoll [facility] POTASSIUM 2019-12-29 00:33:00 Carmen [facility] POCT-GLUCOSE METER 2019-12-28 18:55:00 [facility]en [facility] TRANSFUSION SERVICE 2019-12-28 18:13:35 aJi [facility] REPORT - SCAN Scanning [facility] BASIC METABOLIC PANEL (7) 2019-12-28 17:08:00 Peter Montenegro CH [facility] APTT 2019-12-28 17:08:00 Dylan Leach [facility] APTT 2019-12-28 12:29:00 Hany [facility] POCT-GLUCOSE METER 2019-12-28 12:10:00 Americo [facility] POCT-GLUCOSE METER 2019-12-28 06:45:00 Osmani Justice [facility] MAGNESIUM 2019-12-28 04:35:00 Carmen [facility] CALCIUM, IONIZED 2019-12-28 04:35:00 Francesco [facility] COMPREHENSIVE METABOLIC 2019-12-28 04:35:00 Francesco [facility] PHOSPHORUS 2019-12-28 04:35:00 Francesco [facility] APTT 2019-12-28 04:35:00 Dylan Leach [facility] BLOOD GAS, ARTERIAL 2019-12-28 04:35:00 Tyrone Driscoll [facility] CBC W/PLT COUNT & AUTO 2019-12-28 04:35:00 Carmen [facility] DIFFERENTIAL [facility] [place] XR CHEST 1 VIEW 2019-12-28 04:16:00 Carmen [facility] PORTABLE/BEDSIDE [facility] [place] POCT-GLUCOSE METER 2019-12-28 00:01:00 Osmani Justice [facility] PREPARE LEUKO-REDUCED RBC 2019-12-27 23:54:00 Kacy Whelan CH, I [facility] MAGNESIUM 2019-12-27 23:14:00 Carmen [facility] POTASSIUM 2019-12-27 23:14:00 Carmen [facility] POCT-GLUCOSE METER 2019-12-27 18:23:00 Osmani Justice [facility] TRANSFUSION SERVICE 2019-12-27 17:51:23 Donna Vregara [facility] - REPORT - SCAN [facility] CBC W/PLT COUNT & AUTO 2019-12-27 17:45:[address] [facility] DIFFERENTIAL [facility] POTASSIUM 2019-12-27 15:14:00 Carmen [facility] MAGNESIUM 2019-12-27 15:14:00 Carmen [facility] POCT-GLUCOSE METER 2019-12-27 14:07:00 Osmani Justice [facility] ECG 12-LEAD 2019-12-27 10:26:23 Unknown, Hl7 [facility] PREPARE LEUKO-REDUCED RBC 2019-12-27 07:27:00 Kacy Whelan [facility] POCT-GLUCOSE METER 2019-12-27 06:35:00 Osmani Justice [facility] BASIC METABOLIC PANEL (7) 2019-12-27 04:21:[address] [facility] MAGNESIUM 2019-12-27 04:21:00 [facility] APTT 2019-12-27 04:21:00 Quiambreji [facility] HEMOGLOBIN AND HEMATOCRIT 2019-12-27 04:21:00 Kacy Whelan [facility] CBC W/PLT COUNT & AUTO 2019-12-27 04:21:00 [facility] BLOOD GAS, ARTERIAL 2019-12-27 04:16:00 Osmani Justice [facility] XR CHEST 1 VIEW 2019-12-27 03:28:00 [facility] [place] HEMOGLOBIN AND HEMATOCRIT 2019-12-26 23:59:00 Kacy Whelan [facility] POTASSIUM 2019-12-26 23:59:00 [facility] POCT-GLUCOSE METER 2019-12-26 23:57:00 Osmani Justice [facility] APTT 2019-12-26 22:22:00 Hany [facility] POCT-GLUCOSE METER 2019-12-26 17:21:00 Osmani Justice [facility] POTASSIUM 2019-12-26 17:16:[address] [facility] MAGNESIUM 2019-12-26 17:16:00 Carmen [facility] HEMOGLOBIN AND HEMATOCRIT 2019-12-26 14:33:00 Tip, [facility] TRANSFUSE LEUKO-REDUCED 2019-12-26 13:49:29 Tip [facility] RED BLOOD CELLS [facility] POCT-GLUCOSE METER 2019-12-26 13:20:00 Vinh [facility] APTT 2019-12-26 09:03:00 Hany [facility] TYPE AND SCREEN, 2019-12-26 09:03:00 Tip [facility] AUTOMATED [facility] HEMOGLOBIN AND HEMATOCRIT 2019-12-26 07:59:00 Tip [facility] POCT-GLUCOSE METER 2019-12-26 06:18:00 Vinh [facility] XR CHEST 1 VIEW 2019-12-26 06:12:00 Carmen [facility] PORTABLE/BEDSIDE [facility] [place] BLOOD GAS, ARTERIAL 2019-12-26 04:03:00 Carmen [facility] BASIC METABOLIC PANEL (7) 2019-12-26 02:48:00 Joyce Morales [facility] MAGNESIUM 2019-12-26 02:48:00 Carmen [facility] APTT 2019-12-26 02:48:00 Hany [facility] CBC W/PLT COUNT & AUTO 2019-12-26 02:48:00 Carmen [facility] DIFFERENTIAL [facility] [place] POCT-GLUCOSE METER 2019-12-25 23:49:00 Vinh [facility] APTT 2019-12-25 19:35:00 Hany [facility] POCT-GLUCOSE METER 2019-12-25 18:13:00 Vinh [facility] APTT 2019-12-25 18:10:00 Hany [facility] EOSINOPHIL SMEAR, URINE 2019-12-25 18:10:00 Toney Alicea CH, I [facility] PROTEIN, RANDOM URINE 2019-12-25 18:10:00 Toney Alicea [facility] CREATININE, RANDOM URINE 2019-12-25 18:10:00 Toney Alicea [facility] SODIUM, RANDOM URINE 2019-12-25 18:10:00 Toney Alicea [facility] TRANSFUSION SERVICE 2019-12-25 17:51:33 Jai [facility] BLOOD CULTURE 2019-12-25 13:24:00 Tip [facility] BLOOD CULTURE 2019-12-25 13:19:00 Tip [facility] POCT-GLUCOSE METER 2019-12-25 12:28:00 Vinh [facility] APTT 2019-12-25 12:07:00 Hany [facility] MAGNESIUM 2019-12-25 06:46:00 Carmen [facility] COMPREHENSIVE METABOLIC 2019-12-25 06:46:00 Francesco [facility] PHOSPHORUS 2019-12-25 06:46:00 Francesco [facility] POCT-GLUCOSE METER 2019-12-25 06:46:00 Osmani Justice [facility] US RENAL COMPLETE 2019-12-25 06:31:00 Francesco [facility] APTT 2019-12-25 04:43:00 Hany [facility] BLOOD GAS, ARTERIAL 2019-12-25 04:42:00 Carmen [facility] CALCIUM, IONIZED 2019-12-25 04:42:00 Francesco [facility] COMPLEMENT COMPONENT C4 2019-12-25 04:42:00 Francesco [facility] CBC W/PLT COUNT & AUTO 2019-12-25 04:42:[address] [facility] XR CHEST 1 VIEW 2019-12-25 02:59:00 Joyce Morales [facility] - PORTABLE/BEDSIDE [facility] [place] POCT-GLUCOSE METER 2019-12-25 01:15:00 Osmani Justice [facility] PREPARE LEUKO-REDUCED RBC 2019-12-24 23:54:[address] [facility] TRANSFUSION SERVICE 2019-12-24 17:52:21 Donna Vergara [facility] REPORT - SCAN [facility] POCT-GLUCOSE METER 2019-12-24 17:45:00 Osmani Justice [facility] EEG AWAKE AND DROWSY 2019-12-24 15:37:00 Sara Manjarrez [place] SPUTUM CULTURE + GRAM 2019-12-24 14:05:00 Joyce Morales [facility] POCT-GLUCOSE METER 2019-12-24 11:58:00 Osmani Justice [facility] XR CHEST 1 VIEW 2019-12-24 09:50:00 Joyce Morales [facility] PORTABLE/BEDSIDE [facility] [place] BLOOD CULTURE 2019-12-24 09:29:00 Carmen [facility] BASIC METABOLIC PANEL (7) 2019-12-24 09:29:[address] [facility] CREATINE KINASE (CK) 2019-12-24 09:29:00 Cristela De Jesus [place] BLOOD GAS, ARTERIAL 2019-12-24 07:34:00 [facility] POCT-GLUCOSE METER 2019-12-24 06:19:00 Vinh [facility] LACTIC ACID, ARTERIAL 2019-12-24 03:24:00 Carmen [facility] BASIC METABOLIC PANEL (7) 2019-12-24 03:24:[address] [facility] MAGNESIUM 2019-12-24 03:24:00 Carmen [facility] CBC W/PLT COUNT & AUTO 2019-12-24 03:24:[address] [facility] APTT 2019-12-24 02:30:00 Hany [facility] POCT-GLUCOSE METER 2019-12-24 00:10:00 Vinh [facility] APTT 2019-12-23 19:41:00 Hany [facility] POCT-GLUCOSE METER 2019-12-23 18:19:00 Vinh [facility] P.E.T./CT WHOLE BODY PI 2019-12-23 18:12:00 Vinh [facility] POCT-GLUCOSE METER 2019-12-23 15:26:00 [facility] POCT-GLUCOSE METER 2019-12-23 13:45:00 Vinh [facility] BLOOD GAS, ARTERIAL 2019-12-23 13:41:00 Carmen [facility] LACTIC ACID, ARTERIAL 2019-12-23 13:38:00 Carmen [facility] APTT 2019-12-23 13:37:00 Hany [facility] CORTISOL 2019-12-23 13:37:[address] [facility] HEMOGLOBIN AND HEMATOCRIT 2019-12-23 13:37:[address] [facility] RESPIRATORY PANEL [facility] 2019-12-23 13:31:00 MaritodaNelly ag [facility] BASIC METABOLIC PANEL (7) 2019-12-23 12:47:00 Joyce Morales [facility] MAGNESIUM 2019-12-23 12:47:00 Carmen [facility] BLOOD CULTURE 2019-12-23 10:51:00 Gudavalli, [facility] APTT 2019-12-23 10:35:00 Dylan Leach [facility] CBC W/PLT COUNT & AUTO 2019-12-23 10:35:00 Joyce Morales [facility] DIFFERENTIAL [facility] [place] BLOOD CULTURE 2019-12-23 09:45:00 Natty [facility] URINALYSIS W/ REFLEX 2019-12-23 09:21:00 Natty [facility] URINE CULTURE [facility] TRANSFUSE LEUKO-REDUCED 2019-12-23 08:32:45 [facility] - RED BLOOD CELLS [facility] POCT-GLUCOSE METER 2019-12-23 06:47:00 Osmani Justice [facility] BLOOD GAS, ARTERIAL 2019-12-23 05:29:00 Tyrone Hernandez [facility] TYPE AND SCREEN, 2019-12-23 03:53:00 Charmaine [facility] es - AUTOMATED [facility] BASIC METABOLIC PANEL (7) 2019-12-23 02:31:[address] [facility] MAGNESIUM 2019-12-23 02:31:[address] [facility] CBC W/PLT COUNT & AUTO 2019-12-23 02:31:00 [facility] [place] BLOOD GAS, ARTERIAL 2019-12-23 02:25:00 Charmaine [facility] APTT 2019-12-23 02:24:00 [facility] XR CHEST 1 VIEW 2019-12-23 01:29:00 Charmaine [facility] - PORTABLE/BEDSIDE [facility] POCT-GLUCOSE METER 2019-12-23 01:08:00 Osmani Justice [facility] BLOOD GAS, ARTERIAL 2019-12-23 00:57:00 [facility] POCT-GLUCOSE METER 2019-12-22 23:30:00 Osmani Justice [facility] APTT 2019-12-22 18:14:00 Hany [facility] POTASSIUM 2019-12-22 18:14:00 Carmen [facility] POCT-GLUCOSE METER 2019-12-22 18:12:00 Osmani Justice [facility] XR ABDOMEN / KUB 1 VIEW 2019-12-22 15:03:00 Carmen [facility] POCT-GLUCOSE METER 2019-12-22 12:36:00 Osmani Justice [facility] APTT 2019-12-22 12:06:00 Hany [facility] MAGNESIUM 2019-12-22 12:06:[address] [facility] POTASSIUM 2019-12-22 12:06:00 Carmen [facility] BLOOD CULTURE 2019-12-22 10:28:00 Maxi Portneuf [facility] B-TYPE NATRIURETIC FACTOR 2019-12-22 09:47:00 Joyce Morales [facility] (BNP) [facility] ([place], [place]) BLOOD GAS, ARTERIAL 2019-12-22 09:46:00 Carmen [facility] BLOOD CULTURE 2019-12-22 09:39:00 Maxi [facility] XR CHEST 1 VIEW 2019-12-22 08:21:00 [facility] ([place], [place]) HEMOGLOBIN AND HEMATOCRIT 2019-12-22 07:56:[address] [facility] APTT 2019-12-22 07:56[facility] POCT-[facility]SE METER 2019-12-22 06:10:00 Sara Manjarrez [facility] APTT 2019-12-22 06:07:00 Dylan Leach [facility] BASIC METABOLIC PANEL (7) 2019-12-22 04:59:[address] [facility] MAGNESIUM 2019-12-22 04:59:[address] [facility] CBC W/PLT COUNT & AUTO 2019-12-22 03:03:00 [facility] ([place], [place]) POCT-GLUCOSE METER 2019-12-22 00:02:00 Sara Manjarrez [facility] APTT 2019-12-21 23:06:00 Hany [facility] BODY FLUID CELL COUNT 2019-12-21 17:36:00 [facility] WITH DIFFERENTIAL [facility] BODY FLUID CULTURE + GRAM 2019-12-21 17:36:00 [facility] FUNGUS CULTURE + SMEAR 2019-12-21 17:36:00 [facility] LACTATE DEHYDROGENASE 2019-12-21 17:36:00 Sara Manjarrez [facility] (LDH)[facility] PROTEIN, BODY FLUID 2019-12-21 17:36:00 Sara Manjarrez [facility] GLUCOSE PLEURAL FLUID 2019-12-21 17:36:00 Sara Manjarrez [place] US THORACENTESIS 2019-12-21 16:52:00 Johnson Luz [facility] PT/APTT 2019-12-21 16:50:00 Osmani Justice [place] [facility] XR CHEST 1 VIEW 2019-12-21 15:21:00 Cassidy Parra [facility] - PORTABLE/BEDSIDE [facility] POCT-GLUCOSE METER 2019-12-21 12:25:00 Sara Manjarrez [facility] PROTHROMBIN TIME/INR 2019-12-21 10:51:00 Osmani Justice [facility] BASIC METABOLIC PANEL (7) 2019-12-21 04:36:[address] [facility] MAGNESIUM 2019-12-21 04:36:00 Carmen [facility] CREATINE KINASE (CK) 2019-12-21 04:36:00 Worichmond-Saranya Sterling [facility] APTT 2019-12-21 04:36:00 Hany [facility] CBC W/PLT COUNT & AUTO 2019-12-21 04:36:00 [facility] POCT-GLUCOSE METER 2019-12-20 23:27:00 Josseline [facility] BLOOD GAS, ARTERIAL 2019-12-20 21:09:00 Tye Weinberg [facility] POCT-GLUCOSE METER 2019-12-20 18:24:00 Josseline [facility] APTT 2019-12-20 16:50:00 Hany [facility] BLOOD CULTURE 2019-12-20 13:13:00 Maxi [facility] POCT-GLUCOSE METER 2019-12-20 11:59:00 Josseline [facility] APTT 2019-12-20 10:51:00 Hany [facility] BLOOD CULTURE 2019-12-20 10:47:00 Maxi [facility] BLOOD CULTURE 2019-12-20 10:47:[address] [facility] [address] BLOOD GAS, ARTERIAL 2019-12-20 09:57:00 Dylan Leach [facility] POCT-GLUCOSE METER 2019-12-20 05:41:00 Josseline [facility] BASIC METABOLIC PANEL (7) 2019-12-20 03:43:[address] [facility] MAGNESIUM 2019-12-20 03:43:[address] [facility] APTT 2019-12-20 03:43:00 Hany [facility] CBC W/PLT COUNT & AUTO 2019-12-20 03:43:00 Joyce Morales [facility] DIFFERENTIAL [facility] ([place], [place]) POCT-GLUCOSE METER 2019-12-19 23:13:00 Sara Manjarrez [facility] APTT 2019-12-19 20:55:00 Hany [facility] APTT 2019-12-19 13:07:00 Hany [facility] POCT-GLUCOSE METER 2019-12-19 12:00:00 Sara Manjarrez [facility] XR CHEST 1 VIEW 2019-12-19 10:44:00 Tyrone Driscoll [facility] - PORTABLE/BEDSIDE [facility] BASIC METABOLIC PANEL (7) 2019-12-19 06:18:[address] [facility] MAGNESIUM 2019-12-19 06:18:00 Carmen [facility] APTT 2019-12-19 06:18:00 Hany [facility] CBC W/PLT COUNT & AUTO 2019-12-19 05:15:00 Joyce Morales [facility] DIFFERENTIAL [facility] ([place], [place]) APTT 2019-12-19 00:23:00 Hany [facility] PERIPHERAL VASCULAR 2019-12-18 21:22:05 Donna Vergara [facility] REPORT - SCAN [facility] MAGNESIUM 2019-12-18 17:39:[address] [facility] POTASSIUM 2019-12-18 17:39:00 [facility] APTT 2019-12-18 17:39:00 Quchio [facility] BLOOD CULTURE 2019-12-18 13:15:00 Jesus Muir [facility] BLOOD CULTURE 2019-12-18 12:57:00 Nicko Gentile [facility] [facility] MAGNESIUM 2019-12-18 11:12:00 Carmen [facility] POTASSIUM 2019-12-18 11:12:00 Carmen [facility] APTT 2019-12-18 10:30:00 Hany [facility] HEMOGLOBIN A1C 2019-12-18 04:22:00 Carmen [facility] BASIC METABOLIC PANEL (7) 2019-12-18 04:22:00 Joyce Morales [facility] MAGNESIUM 2019-12-18 04:22:00 Carmen [facility] CBC W/PLT COUNT & AUTO 2019-12-18 04:22:[address] [facility] ECHOCARDIOGRAM REPORT - 2019-12-17 21:22:31 Provider, Default [facility] VENOUS DOPPLER ARM, LEFT 2019-12-17 20:10:00 Peter Montenegro [facility] TRANSFUSION SERVICE 2019-12-17 18:02:27 Provider, Default [facility] BLOOD CULTURE 2019-12-17 15:00:00 MaritodaNelly ag [facility] VANCOMYCIN LEVEL, TROUGH 2019-12-17 14:00:[address] [place] [address] BRAIN WITHOUT IV 2019-12-17 11:15:00 Sara Manjarrez [facility] CHEST WITHOUT IV 2019-12-17 11:15:00 Sara Manjarrez [facility] CT ABDOMEN/PELVIS WITHOUT 2019-12-17 11:15:00 Randolph Driscoll [facility] - IV CONTRAST [facility] LIMITED 2D ECHOCARDIOGRAM 2019-12-17 08:25:06 RadhaFreddie I [facility] XR CHEST 1 VIEW 2019-12-17 05:24:00 [facility]IDE [facility] ([place], [place]) HEPATIC FUNCTION PANEL 2019-12-17 03:09:00 [facility]/INR 2019-12-17 03:09:00 Josseline [facility] BASIC METABOLIC PANEL (7) 2019-12-17 03:09:[address] [facility] MAGNESIUM 2019-12-17 03:09:00 Carmen [facility] BLOOD GAS, ARTERIAL 2019-12-17 03:09:00 Carmen [facility] TSH/FREE T4 IF INDICATED 2019-12-17 03:09:00 Joyce Morales [facility] LACTIC ACID, VENOUS 2019-12-17 03:09:00 Carmen [facility] FERRITIN 2019-12-17 03:09:00 [facility] IRON, TIBC, % SAT. 2019-12-17 03:09:00 [facility] RETICULOCYTE COUNT 2019-12-17 03:09:00 [facility] VITAMIN B12 AND FOLATE 2019-12-17 03:09:00 Michael [facility] CBC W/PLT COUNT & AUTO 2019-12-17 03:09:00 Carmen [facility] DIFFERENTIAL [facility] ([place], [place]) CORTISOL 2019-12-16 23:34:00 Carmen [facility] BASIC METABOLIC PANEL (7) 2019-12-16 20:15:[address] [facility] MAGNESIUM 2019-12-16 20:15:[address] [facility] VANCOMYCIN LEVEL, TROUGH 2019-12-16 20:15:00 Worichmond-Saranya Sterling [facility] POCT-GLUCOSE METER 2019-12-16 18:20:00 Josseline [facility] TRANSFUSION SERVICE 2019-12-16 17:50:27 ProviderDonna [facility] REPORT - SCAN Scanning [facility] BLOOD CULTURE 2019-12-16 15:54:00 Freddie Garcia [facility] BLOOD CULTURE 2019-12-16 15:34:00 Freddie Garcia [place] XR CHEST 1 VIEW 2019-12-16 15:24:00 Mehrdad Gillespie [facility] PORTABLE/BEDSIDE Medical Center AMMONIA 2019-12-16 14:38:00 Josseline [facility] PT/APTT 2019-12-16 14:38:00 Mehrdad Gillespie [facility] COMPREHENSIVE METABOLIC 2019-12-16 14:33:[address] [facility] PHOSPHORUS 2019-12-16 14:33:00 Mehrdad Gillespie [facility] [facility] BLOOD GAS, ARTERIAL 2019-12-16 14:31:00 Mehrdad Gillespie [facility] SODIUM NA-STAT LAB 2019-12-16 14:31:00 Mehrdad Gillespie [facility] POTASSIUM-STAT LAB 2019-12-16 14:31:00 Mehrdad Gillespie [facility] [facility] GLUCOSE-STAT LAB 2019-12-16 14:31:00 Mehrdad Gillespie [facility] HGB/HCT (H&H) - STAT LAB 2019-12-16 14:31:00 Mehrdad Gillespie [facility] LACTIC ACID, ARTERIAL 2019-12-16 14:26:00 Mehrdad Gillespie [facility] PROTHROMBIN TIME/INR 2019-12-16 14:18:00 [facility] (HEMO[facility] ONLY) 2019-12-16 14:18:00 Mehrdad Gillespie [facility] MAGNESIUM 2019-12-16 14:18:00 Mehrdad Gillespie [facility] CALCIUM, IONIZED 2019-12-16 14:16:00 Mehrdad Gillespie [facility] PREPARE LEUKO-REDUCED RBC 2019-12-16 14:01:00 Freddie Garcia [facility] BLOOD GAS, ARTERIAL 2019-12-16 12:25:39 Jake Neal [facility] SODIUM NA-STAT LAB 2019-12-16 12:25:39 CreJake jennings [facility] [facility] POTASSIUM-STAT LAB 2019-12-16 12:25:39 Jake Neal [facility] GLUCOSE-STAT LAB 2019-12-16 12:25:39 Jake Neal [facility] HGB/HCT (H&H) - STAT LAB 2019-12-16 12:25:39 Jake Neal [facility] [employer] CULTURE + SMEAR 2019-12-16 12:21:[address] Kuhn [facility] (NON-SPUTUM) [facility] ANAEROBIC CULTURE 2019-12-16 12:21:26 [facility] FUNGUS CULTURE + SMEAR 2019-12-16 12:21:26 Bam [facility] SURGICALLY OBTAINED 2019-12-16 12:21:26 Bam [facility] - CULTURE + GRAM STAIN Medical [facility] ter CALCIUM, IONIZED 2019-12-16 10:46:12 Jake Neal [facility] PROTHROMBIN TIME/INR 2019-12-16 10:46:12 Jake Neal [facility] BLOOD GAS, ARTERIAL 2019-12-16 10:46:12 Jake Neal [facility] SODIUM NA-STAT LAB 2019-12-16 10:46:12 Jake Neal [facility] POTASSIUM-STAT LAB 2019-12-16 10:46:12 Jake Neal [facility] GLUCOSE-STAT LAB 2019-12-16 10:46:12 Jake Neal [facility] HGB/HCT (H&H) - STAT LAB 2019-12-16 10:46:12 Jake Neal to [facility] PROTHROMBIN TIME/INR 2019-12-16 07:40:00 Jake Neal C [facility] LASER EXTRACTION,LEAD 2019-12-16 07:30:00 Sujata Kuhn [place] [facility] RUPERTO 2019-12-16 07:30:00 Sujata Kuhn [facility] BASIC METABOLIC PANEL (7) 2019-12-16 05:44:00 Sara Manjarrez [facility] HEPATIC FUNCTION PANEL 2019-12-16 05:44:00 Sara Manjarrez [facility] MAGNESIUM 2019-12-16 05:44:00 Sara Manjarrez [facility] POCT-GLUCOSE METER 2019-12-15 21:24:00 Josseline merly [facility] ECHOCARDIOGRAM REPORT - 2019-12-15 21:23:08 Provider, Donna SIN [facility] BLOOD GAS, ARTERIAL 2019-12-15 17:12:00 [facility]INE C[facility]URE 2019-12-15 17:10:00 Sara Manjarrez [place] ABORH, MANUAL 2019-12-15 17:09:00 Juanita Davis [facility] POCT-GLUCOSE METER 2019-12-15 17:06:00 Sara Manjarrez [facility] EEG AWAKE AND DROWSY 2019-12-15 16:24:00 Josseline merly [place] 2D ECHO W/ DOPPLER 2019-12-15 14:23:52 Niyah Montilla [facility] (CW/PW/COLOR) [facility] POCT-GLUCOSE METER 2019-12-15 14:15:00 Sara Manjarrez [facility] BLOOD CULTURE 2019-12-15 14:10:00 Niyah Montilla [facility] BLOOD CULTURE 2019-12-15 14:10:00 Niyah Montilla [facility] - IDENTIFICATION PANEL [facility] ter TYPE AND SCREEN, 2019-12-15 14:10:00 Niyah Montilla [facility] - AUTOMATED [facility] ECG 12-LEAD 2019-12-15 13:08:00 Unknown, Hl7 [facility] POCT-GLUCOSE METER 2019-12-15 07:41:00 Sara Manjarrez [facility] BASIC METABOLIC PANEL (7) 2019-12-15 02:47:00 Sara Manjarrez I [facility] HEPATIC FUNCTION PANEL 2019-12-15 02:47:00 Sara Manjarrez [facility] PROTHROMBIN TIME/INR 2019-12-15 02:47:00 Sara Manjarrez [facility] LIPID PANEL 2019-12-15 02:47:00 Sara Manjarrez [facility] CBC W/PLT COUNT & AUTO 2019-12-15 02:47:00 Saar Manjarrez [facility] Cryotherapy to skin 2018-01-08 05:00:00 [facility] lesion<sup>1</sup> Implantation of 2015-05-04 05:00:00 [facility] cardioverter defibrillator with three electrode leads<sup>2</sup> echocardiogram, complete 2014-07-08 05:00:00 [facility] orial [place] Cardiac catheterization, [facility] l [place] left heart<sup>3</sup> [facility] Knee joint operation [facility] Miscellaneous [facility] operations<sup>4</sup> Plan of Care Planned Activity Planned Date Details Comments Source Future Scheduled 2020-06-27 INFLUENZA VACCINE (#1) [facility] 00:[facility]:00 [code = INFLUENZA Medical Ce nter VACCINE (#1)] Future Scheduled 2008 PNEUMOCOCCAL [address] Test 00:00:00 LOW/MEDIUM RISK (1 of [facility] 2 - PCV13) [code = PNEUMOCOCCAL 65+ LOW/MEDIUM RISK (1 of 2 - PCV13)] Future Scheduled 2006-05-[address] [facility] - Test 00:00:00 WELLNESS (YEAR 2 or Medical Center FIRST YEAR if no IPPE) [code = MEDICARE ANNUAL WELLNESS (YEAR 2 or FIRST YEAR if no IPPE)] Encounters Start End Encounter Admission Attending Care Care Encounter Source Date/Time Date/Time Type Type Clinicians Facility Department ID 2019-12-10 Inpatient [facility] MED [id number] [facility] W 20:44:00 2019-12-28 2019-12-28 Outpatient James Francis [facility] [id number] 11:15:00 11:15:00 Dolly 13 2019-12-10 2019-12-14 [id number] 20:44:00 23:10:00 Dragan Goeloc 2019-12-10 2019-12-11 Outpatient [facility] [id number] 14:46:01 23:59:59 10 2019-11-01 2019-11-02 Outpatient [facility] [id number] 09:36:18 23:59:59 09 2019-08-03 2019-08-04 Outpatient [facility] [id number] 09:21:35 23:59:59 08 2019-02-26 2019-02-27 Outpatient [facility] [id number] 14:14:03 23:59:59 07 2019-02-11 2019-02-11 Outpatient Radha, [facility] [id number] 09:00:00 23:59:59 Francis Robles 12 2019-02-04 2019-02-04 Outpatient Radha, [facility] [id number] 09:00:00 23:59:59 Francis Robles 11 2019-02-04 2019-02-04 Outpatient Radha, [facility] [id number] 08:00:00 23:59:59 Francis Robles 10 2018-09-02 2018-09-03 Outpatient [facility] [id number] 09:04:00 23:59:59 06 2018-05-12 2018-05-13 Outpatient [facility] [id number] 12:14:00 23:59:59 05 2018-03-16 2018-03-16 Outpatient Radha, [facility] [id number] 09:00:00 23:59:59 Francis Robles 09 2018-03-03 2018-03-04 Outpatient [facility] [id number] 12:09:00 23:59:59 04 2018-03-03 2018-03-04 Outpatient [facility] [id number] 12:09:00 23:59:59 04 2018-02-16 2018-02-16 [facility] [id number] 10:30:00 10:30:00 Francis D 2018-02-09 2018-02-09 Outpatient Radha [facility] [id number] 11:00:00 11:00:00 Francis D 2018-02-04 2018-02-05 Outpatient [facility] [id number] 10:59:00 23:59:59 03 2018-02-04 2018-02-05 Outpatient [facility] [id number] 10:59:00 23:59:59 03 2018-01-12 2018-01-12 Outpatient Radha [facility] [id number] 11:00:00 23:59:59 Francis D 2017-10-01 2017-10-02 Outpatient [facility] [id number] 13:38:00 23:59:59 02 2014-05-03 2014-05-03 [id number] 09:25:00 11:51:00 Jessica 01 Results Test Description Test Time Test Comments Results Result Comments Source Fungus culture + smear 2020-02-15 17:03:00 Test Item Value Reference Range Interpretation Comme nts Result (test code = 6463-4) No fungus isolated in 28 days Fungus Smear (test code = 1406) No fungi seen [place] [facility] + [id number] 17:03:00 Test Item Value Reference Range Interpretation [...] (test code = No acid fast bacilli 81956-0) seen [facility] C[facility] + SMEAR (NON-SPUTUM)2020-01-31 13:35:00 Test Item Value Reference Range Interpretation Comments CULTURE ([facility]) (test No acid-fast bacilli code = 1095) isolated in 42 days AFB SMEAR ([facility]) No acid fast bacilli (test code = 994) seen POC-Glucose [id number] 18:11:00 Test Item Value Reference Range Interpretation Comments POC-Glucose Meter (test 112 mg/dL 70-110 H : TE STED AT [facility] code = 1538) [address] [facility], 770 30: Enterprise Software Developer/Techni lars ID = [id number] for MADELINE WATTERS ESTEFANIA Lab Interpretation (test Abnormal code = 31485-3) [place] [facility]POCT-GLUCOSE [id number] 18:11:00 Test Item Value Reference Range Interpretation Comments POC-GLUCOSE METER 112 mg/dL 70-110 H : [facility]) (test code = [facility], 1538) 07699: Enterprise Software Developer/Techni lars ID = [id number] for LISBET KRAMER EKG 12 [id number] 15:29:52Interface, External Ris In - 01/27/2020 3:29 PM CDTVentricular Rate 77 BPMAtrial Rate 77 BPMP-R Interval 172 msQRS Duration 164 msQ-T Interval 446 msQTC Calculation([place]ett) 504 msP [place] 5 degreesR [place] 249 degreesT [place] 67 degreesAtrial-sensed ventricular-paced rhythm with occasional Premature ventricular complexesAbnormal ECGConfirmed by MD Stockton Roberto ([id number]) on 01/27/2020 3:29:51 [facility] [id number] 13:57:00 Test Item Value Reference Range Interpretation Comments POC-GLUCOSE METER 128 mg/dL 70-110 H : TESTED A T [facility] 6720 [facility] (test code = [facility], 1538) 47233: Enterprise Software Developer/Techni lars ID = [id number] for LISBET KRAMER Basic Metabolic [id number] 05:52:00 Test Item Value Reference Range Interpretation Comments Sodium (test code = 148 meq/L 136-145 H 2951-2) Potassium (test code = 3.6 meq/L 3.5-5.1 2823-3) Chloride (test code = 119 meq/L 98-107 H 2075-0) CO2 (test code = 24 meq/L 22-29 8-9) BUN (test code = 23 mg/dL 7-21 H 3094-0) Creatinine (test code 0.78 mg/dL 0.57-1.25 = 2160-0) Glucose (test code = 123 mg/dL 70-105 H 2345-7) Calcium (test code = 9.0 mg/dL 8.4-10.2 66463-8) EGFR (test code = 97 mL/min/1.73 [place] [address]-2) NOT ACCURATE CREATININE CLEARANCE IN PREDICTING GLOMERULAR FILTRATION RATE . ESTIMATED GFR I S NOT APPLICABLE FOR DIALYSIS PATIENTS. DMITRIY (test code = DMITRIY) Enterprise Software Developer ID - PIAYA L Lab Interpretation Abnormal (test code = 10774-6) [facility] 05:52[facility]00 Test Item Value Reference Range Interpretation Comments Magnesium (test code = 2.1 mg/dL 1.6-2.6 66490-3) DMITRIY (test code = DMITRIY) Enterprise Software Developer ID - PIAYA L Lab Interpretation (test Normal code = 18505-0) [facility]2020-04-02 05:52:00 Test Item Value Reference Range Interpretation Comments MAGNESIUM (BEAKER) (test code = 2.1 mg/dL 1.6-2.6 627) Enterprise Software Developer ID - PIAYA LBASIC METABOLIC [id number] 05:52:00 Test Item Value Reference Range Interpretation Comments SODIUM (BEAKER) 148 meq/L 136-145 H (test code = 381) POTASSIUM (BEAKER) 3.6 meq/L 3.5-5.1 (test code = 379) CHLORIDE (BEAKER) 119 meq/L 98-107 H (test code = 382) CO2 (BEAKER) (test 24 meq/L -29 code = 355) BLOOD UREA NITROGEN 23 [...] S NOT APPLICABLE FOR DIALYSIS PATIEN TS. Enterprise Software Developer ID - PIAYA [facility] (hemogram only)2020-01-27 05:45:00 Test Item Value Reference [...] (test code = 9.2 fL 9.4-12.4 L 83174-1) nRBC (test code = 413) 0 0- 0 /100 WBC Lab Interpretation (test Abnormal code = 83790-4) [facility] (HEMOGRAM ONLY)2020-01-27 05:45:00 Test Item Value Reference [...] CELLS (BEAKER) (test code = 413) POCT-GLUCOSE [id number] 03:55:00 Test Item Value Reference Range Interpretation Comments POC-GLUCOSE METER 114 mg/dL 70-110 H : TESTED A T [facility] 6720 (BEAKER) (test code = [facility], 153) 71111: Enterprise Software Developer/Techni lars ID = [id number] for MICHELLE MATHIS POCT-GLUCOSE [id number] 18:25:00 Test Item Value Reference Range Interpretation Comments POC-GLUCOSE METER 88 mg/dL 70-110 : TESTED A T [facility] 6720 (BEAKER) (test code = [facility], 1538) 94509: Enterprise Software Developer/Techni lars ID = [id number] for CRISTIN BROOKS POCT-GLUCOSE [id number] 12:51:00 Test Item Value Reference Range Interpretation Comments POC-GLUCOSE METER 89 mg/dL 70-110 : TESTED A T [facility] 6720 (BEAKER) (test code = [facility], 1538) 83948: Enterprise Software Developer/Techni lars ID = [id number] for LISBET SOUZA BASIC METABOLIC [id number] 06:36:00 Test Item Value Reference Range Interpretation [...] S NOT APPLICABLE FOR DIALYSIS PATIEN TS. Enterprise Software Developer ID - [id number] (HEMOGRAM ONLY)2020-01-26 06:35:00 Test [...] 0-0 (BEAKER) (test code = 413) POCT-GLUCOSE [id number] 00:29:00 Test Item Value Reference Range Interpretation Comments POC-GLUCOSE METER 106 mg/dL 70-110 : TESTED A T [facility] 6720 (BEAKER) (test code [facility], = 1538) 94658: Enterprise Software Developer/Techni lars ID = [id number] for CARLOS WHITE Troponin [id number] 18:42:00 Test Item Value Reference Range Interpretation Comments Troponin I (test code = <0.01 0-0.03 43708-6) DMITRIY (test code = DMITRIY) Troponin I [...] DB Lab Interpretation (test Normal code = 25905-9) [facility] ValleyTROPONIN [id number] 18:42:00 Test Item Value Reference Range Interpretation [...] failure, acidosis, acute neurological disease, and persistent tachyarrhythmia.Enterprise Software Developer ID - DBPOCT-GLUCOSE METER 2020-01-25 15:50:00 Test Item Value Reference Range Interpretation Comments POC-GLUCOSE METER 98 mg/dL 70-110 : TESTED A T [facility] 6720 (BEAKER) (test code = [facility], 1538) 53974: Enterprise Software Developer/Techni lars ID = [id number] for DIAZ LAST POCT-GLUCOSE [id number] 12:27:00 Test Item Value Reference Range Interpretation Comments POC-GLUCOSE METER 90 mg/dL 70-110 : TESTED A T [facility] 6720 (BEAKER) (test code = [facility], 1538) 04353: Enterprise Software Developer/Techni lars ID = [id number] for DIAZ LAST TROPONIN [id number] 09:18:00 Test Item Value Reference Range Interpretation Comments TROPONIN I (HAYDEN) (test code = 0.05 ng/mL 0.00-0.03 H [...] failure, acidosis, acute neurological disease, and persistent tachyarrhythmia.Enterprise Software Developer ID - ADAMARIS Howard 2D [id number] 09:10:49Ejection FractionSSAINT [facility] ECHO HEARTLAB MKCKESSON CPACSInterface, External Ris In - 01/25/2020 9:10 AM CDTTransthoracic Echocardiography Report (TTE) Demographics Patient Name RENE CHAMBERLAIN Dateof Study 01/24/2020 Gender Male Visit Number [id number] Race Room Number 6108 Number Date of 1945 Referring Physician Age 74 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 Left pleural effusion appears cgoknngo-nj-ongnn in size. Signature ---- Findings Left Ventricle [...] dynamics 11-15mmHg . Left pleural effusion appears utthgxbf-nm-aelwo in size.[facility] with platelet count + automated [id number] 06:21:00 Test Item Value Reference Range Interpretation [...] 450 K/CU MM MPV (test code = 26395-5) 9.7 fL 9.4-12.4 nRBC (test code = [...] 2801) Lab Interpretation (test code = Abnormal 47576-1) [facility] W/PLT COUNT & AUTO [id number] 06:21:00 Test Item Value Reference Range Interpretation [...] 29-200 2157-6) DMITRIY (test code = DMITRIY) Enterprise Software Developer ID - ADAMARIS M Lab Interpretation (test Normal code = 16942-4) [facility] ValleyBASI METABOLIC [id number] 06:09:00 Test Item Value Reference Range Interpretation [...] hemolyzed GLUCOSE RANDOM 116 mg/dL 70-105 H (HAYDEN) (test code = 652) CALCIUM (NICOLEAKER) 9.1 mg/dL 8.4-10.2 (test code = 697) EGFR (HAYDEN) (test 78 mL/min/1.73 ESTIMA NINA GFR IS code = 1092) sq m NOT ACCURATE CREATININE CLEARANCE IN PREDICTING GLOMERULAR FILTRATION RATE . ESTIMATED GFR I S NOT APPLICABLE FOR DIALYSIS PATIEN TS. Enterprise Software Developer ID - ADAMARIS MCREATINE KINASE (CK)2020-01-25 06:09:00 Test Item Value Reference Range Interpretation Comments CREATINE KINASE TOTAL (HAYDEN) (test 30 U/L 29-200 code = 380) Enterprise Software Developer ID - ADAMARIS MRAD, CHEST, 1 VIEW, NON [id number] 01:06:00Reason for exam:->r/o ptxShould this be performed [...] Signed: Nilton Butterfieldeport Verified Date/Time: 01/25/2020 01:06:33 XR chest 1 view portable / [id number] 01:06:00Interface, External Ris In - 01/25/2020 1:08 [...] There is no pneumothorax. Signed: Nilton Butterfield MDRepspeedy Verified Date/Time: 01/25/2020 01:06:33 [id number] 00:53:00 Test Item Value Reference Range Interpretation [...] failure, acidosis, acute neurological disease, and persistent tachyarrhythmia.Enterprise Software Developer ID - [id number] 00:41:00 Test Item Value Reference Range Interpretation Comments Glucose (test code = 139 mg/dL 70-105 H 2345-7) DMITRIY (test code = DMITRIY) Enterprise Software Developer ID - [id number] Lab Interpretation (test Abnormal code = 83313-3) [facility] ValleyGLUCOSE2020-03-31 00:41:00 Test Item Value Reference Range Interpretation Comments GLUCOSE RANDOM (BEAKER) (test code 139 mg/dL 70-105 H = 652) Enterprise Software Developer ID - [id number], CHEST, 1 VIEW, NON [id number] 16:33:00Reason for exam:->r/o ptxShould this be performed [...] Gregory Verified Date/Time: 01/24/2020 16:33:08 Reading Location: [address] Radiology Reading Room POCT-GLUCOSE [id number] 15:59:00 Test Item Value Reference Range Interpretation Comments POC-GLUCOSE METER 130 mg/dL 70-110 H : TESTED A T [facility] 6720 (BEAKER) (test code = VEGAWV Diamond [facility], 1538) 51391: Enterprise Software Developer/Techni lars ID = [id number] for BA KRISTYNDALANAN POCT-GLUCOSE [id number] 05:13:00 Test Item Value Reference Range Interpretation Comments POC-GLUCOSE METER 89 mg/dL 70-110 : TESTED A T [facility] 6720 (BEAKER) (test code = [facility], 1538) 37133: Enterprise Software Developer/Techni lars ID = [id number] for MSIB I MNCEDISI [id number] 03:36:00 Test Item Value Reference Range Interpretation Comments MAGNESIUM (BEAKER) (test code = 2.3 mg/dL 1.6-2.6 627) Enterprise Software Developer ID - ADAMARIS MBASIC METABOLIC [id number] 03:36:00 Test Item Value Reference Range Interpretation [...] S NOT APPLICABLE FOR DIALYSIS PATIEN TS. Enterprise Software Developer ID - ADAMARIS MCBC (HEMOGRAM ONLY)2020-01-24 03:08:00 [...] = No growth in 5 days 6463-4) [facility] ValleyBLOOD [id number] 19:00:00 Test Item Value Reference Range Interpretation [...] 0-0 (BEAKER) (test code = 413) POCT-GLUCOSE [id number] 18:00:00 Test Item Value Reference Range Interpretation Comments POC-GLUCOSE METER 119 mg/dL 70-110 H : TESTED A T [facility] 6720 (BEAKER) (test code = [facility], 1538) 96912: Enterprise Software Developer/Techni lars ID = [id number] for NUNO LL, WILLIS POCT-GLUCOSE [id number] 12:30:00 Test Item Value Reference Range Interpretation Comments POC-GLUCOSE METER 119 mg/dL 70-110 H : TESTED A T [facility] 6720 (BEAKER) (test code = [facility], 1538) 94949: Enterprise Software Developer/Techni lars ID = [id number] for NUNO LL, WILLIS POCT-GLUCOSE [id number] 06:24:00 Test Item Value Reference Range Interpretation Comments POC-GLUCOSE METER 115 mg/dL 70-110 H : TESTED A T [facility] 6720 (BEAKER) (test code = [facility], 1538) 76879: Enterprise Software Developer/Techni lars ID = [id number] for PIERRE DEL ROSARIO CBC (HEMOGRAM ONLY)2020-01-22 [...] 0-0 (BEAKER) (test code = 413) POCT-GLUCOSE [id number] 23:58:00 Test Item Value Reference Range Interpretation Comments POC-GLUCOSE METER 128 mg/dL 70-110 H : TESTED A T [facility] 6720 (BEAKER) (test code = [facility], 153) 54469: Enterprise Software Developer/Techni lars ID = [id number] for DO ZAVALETA PIERRE POCT-GLUCOSE [id number] 18:10:00 Test Item Value Reference Range Interpretation Comments POC-GLUCOSE METER 100 mg/dL 70-110 : TESTED A T [facility] 6720 (BEAKER) (test code = [facility], 153) 70240: Enterprise Software Developer/Techni lars ID = [id number] for AG ROBINS Lactate Dehydrogenase (LD), Pleural [id number] 16:41:00 Test Item Value Reference Range Interpretation Comments Lactate 134 U/L See Note: Reference Dehydrogenase (LD), Range:TR ANSUDATE Pleural Fluid (test : <113E XUDATE: code = 27771-4) >113 DMITRIY (test code = Performing Lab DMITRIY) [employer] [address] [place] [address] Winter Encinas MD, PhD, SUZETTE [facility] ValleyGlucose Pleural [id number] 16:35:00 Test Item Value Reference Range Interpretation Comments Glucose, 99 mg/dL Reference rang e Pleural Fluid approximates t hat (test code = found in serum. 2346-5) DMITRIY (test code Performing Lab = DMITRIY) EZ [facility] [address] [place] [address] Winter Encinas MD, PhD, SUZETTE [facility] ValleyFUNGUS CULTURE + [id number] 16:25:00 Test Item Value Reference Range Interpretation Comments CULTURE (BEAKER) (test No fungus isolated in code = 1095) 28 days FUNGUS SMEAR (BEAKER) No fungi seen (test code = 1406) POCT-GLUCOSE [id number] 12:09:00 Test Item Value Reference Range Interpretation Comments POC-GLUCOSE METER 119 mg/dL 70-110 H : TESTED A T [facility] 6720 (BEAKER) (test code = [facility] [place] [facility], 1538) 38859: Enterprise Software Developer/Techni lars ID = [id number] for LORIJorgeJESSEE SKINNER, AG Body fluid culture + gram [id number] 11:52:00 Test Item Value Reference Range Interpretation Comments Result (test code = 6463-4) No growth Gram Stain Result (test No organisms seen code = 1123) [facility] ValleyBODY FLUID CULTURE + GRAM [id number] 11:52:00 Test Item Value Reference Range Interpretation Comments CULTURE (BEAKER) (test code No growth = 1095) GRAM STAIN RESULT (BEAKER) <1+ WBCs (test code = 1123) GRAM STAIN RESULT (BEAKER) No organisms seen (test code = 41061) POCT-GLUCOSE [id number] 07:22:00 Test Item Value Reference Range Interpretation Comments POC-GLUCOSE METER 122 mg/dL 70-110 H : TESTED A T [facility] 6720 (BEAKER) (test code = [facility] [place] [facility], 1538) 89245: Enterprise Software Developer/Techni lars ID = [id number] for YUSEF LOWE POCT-GLUCOSE [id number] 06:45:00 Test Item Value Reference Range Interpretation Comments POC-GLUCOSE METER 103 mg/dL 70-110 : TESTED A T [facility] 6720 (BEAKER) (test code = [place], 1538) 58382: Enterprise Software Developer/Techni lars ID = [id number] for JUSTINA CHAU BASIC METABOLIC [id number] 05:40:00 Test Item Value Reference Range Interpretation [...] S NOT APPLICABLE FOR DIALYSIS PATIEN TS. Enterprise Software Developer ID - PIAYA LCBC (HEMOGRAM ONLY)2020-01-21 05:14:00 [...] = 413) RAD, CHEST, 1 VIEW, NON [id number] 04:32:00Reason for exam:->chfShould this be performed at [...] Nilton Butterfield Verified Date/Time: 01/21/2020 04:32:05 POCT-GLUCOSE [id number] 23:29:00 Test Item Value Reference Range Interpretation Comments POC-GLUCOSE METER 125 mg/dL 70-110 H : TESTED A T [facility] 6720 (Cognitive [employer]) (test code = [facility], 1538) 58444: Enterprise Software Developer/Techni lars ID = [id number] for MS IBI, MNCEDISI POCT-GLUCOSE [id number] 13:27:00 Test Item Value Reference Range Interpretation Comments POC-GLUCOSE METER 122 mg/dL 70-110 H : TESTED A T [facility] 6720 (BEZQGame) (test code = [facility], 1538) 65766: Enterprise Software Developer/Techni lars ID = [id number] for DE YUSEF JUAREZ POCT-GLUCOSE [id number] 09:59:00 Test Item Value Reference Range Interpretation Comments POC-GLUCOSE METER 141 mg/dL 70-110 H : TESTED A T [facility] 6720 (BEAKER) (test code = [place], 1538) 26897: Enterprise Software Developer/Techni lars ID = [id number] for PIERRE DEL ROSARIO [id number] 06:01:00 Test Item Value Reference Range Interpretation Comments Protime (test code = 15.9 11.9- 14.2 H 5902-2) seconds INR (test code = 1.3 <=5.9 6301-6) PTT (test code = 33.6 22.5- 36.0 11763-7) seconds DMITRIY (test code = DMITRIY) Effective 03/24/2019: PT Reference Range ChangeNew: 11.9-14.2 Previous: 11.7-14.7 RECOMMENDED COUMADIN/WARFARIN INR THERAPY RANGESSTANDARD DOSE: 2.0-3.0 Includes: PROPHYLAXIS for venous thrombosis, systemic embolization; TREATMENT for venous thrombosis and/or pulmonary embolus.HIGH RISK: Target INR is 2.5-3.5 for patients wiht mechanical heart valves. Lab Interpretation Abnormal (test code = 49883-6) [facility] ValleyPT/[id number] 06:01:00 Test Item Value Reference Range Interpretation [...] for patients wiht mechanical heart valves.Hepatic function [id number] 05:38:00 Test Item Value Reference Range Interpretation Comments Protein, Total (test code 6.1 6.0- 8.3 gm/dL = 2885-2) Albumin (test code = 2.3 g/dL 3.5-5 L 08225-8) Total Bilirubin (test code 0.4 mg/dL 0.2-1.2 = 1975-2) Bilirubin, Direct (test 0.3 mg/dL 0.1-0.5 code = 1968-7) Alkaline Phosphatase (test 93 U/L 40-150 code = 6768-6) AST (test code = 1920-8) 21 U/L 5-34 ALT (test code = 1742-6) 23 U/L 6-55 DMITRIY (test code = DMITRIY) Enterprise Software Developer ID - ADAMARIS M Lab Interpretation (test Abnormal code = 31629-3) [facility] ValleyHEPATIC FUNCTION [id number] 05:38:00 Test Item Value Reference Range Interpretation [...] (test code = 23 U/L 6-55 347) Enterprise Software Developer ID - ADAMARIS MBASIC METABOLIC [id number] 05:38:00 Test Item Value Reference Range Interpretation [...] S NOT APPLICABLE FOR DIALYSIS PATIEN TS. Enterprise Software Developer ID - ADAMARIS MC (HEMOGRAM ONLY)2020-01-20 05:20:00 [...] 0-0 (BEAKER) (test code = 413) POCT-GLUCOSE [id number] 00:05:00 Test Item Value Reference Range Interpretation Comments POC-GLUCOSE METER 130 mg/dL 70-110 H : TESTED Joanna T [facility] 6720 (BEAKER) (test code = [place], 1538) 41155: Enterprise Software Developer/Techni lars ID = [id number] for PIERRE ZAVALETA [id number] 16:41:00 Test Item Value Reference Range Interpretation Comments Case Report (test code Medical Cytology = 104) Report Case: [id number] Authorizing Provider: Sara Manjarrez MD Collected: 01/18/2020 04:20 PM Ordering Location: [address] Received: 01/19/2020 09:12 AM Pathologist: Samra Coley MD Specimen: Pleural, Left DIAGNOSIS (test code = z2omxKVkRZDmj0chCDClcA 3220) FuZzEwMzNcZnRuYmpcdWMx QIczvvShXLqqp7VxK1VdLg AwMFxhbnNpXGRlZmxhbmcx KIJuNWU2afMhYISjMOihMK IkWXljRz9lsBTpbEqrQaLp MFPje7fjphWCvsfmbYo1y0 oyZCDbRnB0tZTrITarK4gs qvNplMAyGAEtZTl8nG53JU JscU2rlQGeQCfncvAlVlJ4 PRqxWRLeBkF4RDVdxGNkEW TbF4tnRNTxEMxiCMCxOFym fDFxKRP9hStcl5N8zPSwwH ZfsQouZcRcGcUfLRLTi0Sg KEf4gUsrP6YrFQTlAtZ2wN QgUGFyYWdyYXBoIEZvbnQ7 eV23PRmcxlV4kBTqt2Ice1 3mg870wK5djOAvCHY8BJDx UEBzePPmSQSgVJK8XLWzgE SxA3o9KwPokCZhY0L0EpXj vYClJ4A9OuFemNPhV0U9Sw JsjJItNRSrlYLdWh4fdSKn mJHgdv2ell65PDJ3h4BktJ dfEZU6BDL0FyQjMr6eeAIt KYXlIB0uBdHslHKjFOIxcq 10yBcoCApbznThmB6dNlVr SWJvyRLaNYGzKG9pqKPoVC DakA4ukuxoQNCoIbSsswrq ZBUyqFvtlqZlEn7csTrkLA N1ZRgpR0ogcW2lBrJ5JHso E6qonO0vAMi0VAfugXH7VW DihG2vVC3wgyadn9cqHzKj TM7xwwknd3soLdWhQJ7wii s4f8ruLbRpGX8dcdqeu6es NzIwXGhlYWRlcnkwXGZvb3 NfwshhXTYfp3MeH8JswExm N67uxXupN62zMDCshCzyvP 3pbPulbJ8jLeIrCpYfCNxf bFxwbGFpblxmMVxmczIwXG fjpqhmEOPoILvnX6ydDtOr UZZaxNicOIzea3UfCWBmCZ ZzMjAgUExFVVJBTCwgTEVG BWyeKsaMIKHiHFNPUE3GKJ iWWnk4DOOowxBoPGNxCH3G I3IUHBXVYBKYWzCEVEcTA8 5BTkNZIFxwYXIgICAgLSBJ TkNSRUFTRUQgTkVVVFJPUE sEIYZoQBZUE4WXWYfjLEW0 d0aeqCPaYRKvdNYsDVDmRS xhbnNpXGRlZmxhbmcxMDMz XOW9bmVzDEHzXMwvKRFeCK wbZv3dfJJopIpqDdKsHEUg j8xtefEAcnddoFi5q7cxSH UbBoE7qEOkGMonB0mndcHx hSOtJNOnWMm3pU34JXWymI 3tlPEmSIgntyUgZoO3TTfr BCPpFhP9XQQfdJAfXYMpS6 xyZWQwXGdyZWVuMFxibHVl BTN5jHjst7K1xLItxMCmyR nvBjUtXtHuTiOSv1VtVFv3 fWuaP2ZkMMZnEqU1cPFpCW RuLVhoQGUzMNUmutE0hN02 ATlsvnI5wUPoa7Gnk64ry1 94wT5yrLUkPND4EYNwJQXw jORrDJMnFIC9CQZeoISjV1 igNGVrRN5ealklJLmhTOrc EXQehGD9HDSepQBpO8YeKJ BdXLfhJNSfuif7CnKsKi4z fFExfBcsRMiab0wsz6ssjA QuBox8ZLOqAaHnCiblFBwu e0Knz2cqXIWcjl5qEDD6bO SgsLnhm3N4sTKcXXXnbEAc YKFfVT9goQZkCKDzyA0aba xjXHBnYnJkcmhlYWRccGdi ljKdPd8rwVruGCD1YLhuD1 sqxH2oTqT2OSuiL1ryyH3z LXg9XJheRBWvjSR1teZ3GQ HppKUmU5YpvX0xTHWeJP0s iob4z3aoDER2BPvbBBSnCm V2iqQ5EMPasOGkVZEdaJoh HCadx610JAI6MoPdRFVyx6 EtI2SdnYlhN71szDpqX36y ZPJilTmmrK8ijTknnC1dGc AgMxIqHLncvGliVK2uBHPl K7agzYReDBIfIRSaD4wqHr FacP5ecYqfCMlqqjAeWEWq Eim5JUJrxLRmDFMnDhw8YF ScRQHxB84bohulXZD4nM7q p3ewq5HeTViuCOH2WPOrk0 0iQUtforF8WQxrQx2eVxAj BET4BEqdkZJwvU9= CPT Code(s) (test code j6kzlZCkGCKxhJZdUrOxGQ = 3357) ZdEPBxc0jzUKGmsFIcVcWp MzNcZnRuYmpcdWMxXGRlZm Ejn9yvl561kLTgs8kaGKZp QaE1iBTnHRArmZAdL613g6 ylf2whqsSfmSH9MFKoWED4 MCkxudJcxgU9WRcylPJuSf J3BBobspAcPBbkteJbfnMh Qkh5OJUjT765UHX2iOtgi2 zlLHF6NEYqSGPjYyHoUh2q nMDiT925INUbQVDFCYIumQ l6IJRzirSrzfBbcXHHg730 E472r6ggBNBgziZunUaMdo wvv1loQ584SBOzsVLgqhWi EtWiCTEnqKFbzCW3SPOpIG 3xfcfxDhYtNC9qwralDlPn QY2qokg7DbMxDL4vbrwyPb GcXVcyACTblfctKBRun9Dw rwkvJW4sY4Ijp0S4aL0xlZ ZqOBSqgKJaEzHbDPQltl2q vIMbLYwng2MjCLA4xoQ8dF IyqSSiNCXwND07Jclrl6Ev BtzdMLE1NBVrbyRjn4Ifq8 vtBmKldfZyJ2bzT0NuEUAp QQKyNTEvQvJymgPtd3Wcl7 XfsCZymZs5s9lyXZPtYGKy rTzyr8lyYJN3RRCmJ1M0kN Zvl4poCVdlFHYprWY1rcin CNjcNQRcygD8nytxSCruRQ NioDV0bbpfDCjlGVViEfC4 lwybVSjmLXAlZSY9NXlsu7 57AKJ2HIiaQppqTHscMGFx bmNvbnRccGduZGVjXHBsYW luXHBsYWluXGYwXGZzMjRc nPkdwPaywD7xMwVxKjWpHA fnAW1aERBjZ3pshXGqCNTh DFNcL0pgCmKzxR2qmQzxXC kdsgXkLWn1FKD6JDKoll4= CLINICAL DATA (test r1jtdUNxRHInbPZeTbGiAU code = 3350) VuSXIda0qaCLAjoRSyUaVs MzNcZnRuYmpcdWMxXGRlZm Lyi6lha404iVBth2dpNAKp YzS5kWUrDJIyqAEcZ232ZS GaMVfcs5gql6MxDGYdbZKf v4S9WBRDcrjtyVw9yHrzP6 1nt7F1NjptN0vvCQGgBKKe A4JwGV1pYEDoSxq3NII7DP Q6VQUrRGXfD5BrIE8tKPQe tLRqRKf8v7zymNreAODjDB J7b2yhNMyqkcUsPL4ieb6a tSi0h1zaybNuKNYqVDSztX KRPYXqQ2DwtGeqZl7hhHy2 fStuHsoxJBA2Szl9JN9hal 92xjs7xCdyLYNmbsznDfA3 VShhBIKuozbwNWy3XEawDK JnbDcyMFxtYXJncjcyMFxt YXJndDcyMFxtYXJnYjcyMF ylSNUwDOZ2INbww687ZRD2 LYwlw6waj5cttOFgZcg8TY QbRwVzXedvMCcpo2Ngy8kq MFTopj4lBDA5sHBgnHwzk4 M2tSKcOYWmvPJwheYkIAMn ChU9FZezLQ2vvf53MSZtJJ W2le4mgKNgnBhyujVpsKNa UYuuW9CzRDLkt344DASxD4 MkDIDhp3X6xhAoPrEdMMGz pCN9tnX9ZRZyMMj1oVGgmr L6zxEhcGXvY3dhxE99GgAy uYMaW3NrgL01QjOsrUTdK8 XwiJ07UdKaeVHsJ8LvqZ93 VfDpmQFxNRNheYZnEy9ygK FogOQyy6GehJMpBUwxS44z k652MTAztyBdK3xglFCvhs xxgNXrgmfqICkvceF9FDBo XHBsYWluXGYxXGZzMjBcbG FuZzEwMzNcaGljaFxmMVxk SrBpCQHaROuvK1qiHxJaOz PmHUHCSTD0EGVcPYHeIAng CLInoYUzo833TTx+YWRtaX B2LOUfw31fXi7kRg2gBFRe BG79NgXgeMN3s2D2EC4iZV zPFfysXObQZCUOODTfAI0y ZXNpdHksIFNTUyAocGFjZW 7sc3SqTHGnkBEiHUGewDmc EZDjwu0fpRImSJAuXVIlzc 8lTNZbLQZgTMSLJYz4fOdl YWRlIDIwMTUpIHdobyBwcm PgGY23drQbdo8kDHguyzTe SMMlIY4msVf8JTldXVT1BD IgYXNwaXJhdGlvbiBldmVu wWQmmdVaGb2eHHUthZymH9 YvWY70HK3yVDksvoIfEGVw bWFrZXJccGFyfQ== SPECIMEN SOURCE (test c9aacFGmFEVvaXKaBcYrYE code = 3377) CaYMBam1ryURMlnZDlGtTa MzNcZnRuYmpcdWMxXGRlZm Tch4cxh784yNOeq8keVRBw XnF8aHHfNAFwbXDkE382h3 zoo6nsvhTzhTH5FYKyIPE5 OTyvugOzwoO0OLlgxTPhOb M0SDpzfyXeGKmfdcYychWr Zjj9VDXlD661FTP6zBspu0 lnUDA4FBUrXZPcPsIvEs7m uXLdL594BKTdKMSDQKNcyT n3JASnxpBmszHbwKCTy094 J503l9tjXKXyolScrVwMmq csi1huV377BLCidQJqnkGj CrTcNEWenAOytDP9OBAtLF 6ttuytGbBtKN1janchYwEm SY5aqgr7MrRsLJ7hzgqdWj SkHQjhCNTtffsjIFSqt1Ku iqfnVU3cM2Nkq0E8eZ4dnO OrIEHkfFIsVoRiTNWlyu4u pCKwOHxzr2LyIOD3zoH1zF VanXUmNPWaYX24Ecowl8Xf TmqqSJM4VZZxitWex3Fca7 cnDgOnfrCzE5quO5XgUSFr MCFgJSKuCuZdhiBym7Xgu4 IkpZGbdWm3q3ztWFKsNCDj aMdwi2guGID1UCEoU7A1mA Pqu5wnUVwmOBUydWS2bhrl JXuiHPJcirI9gnbgMOpmCL GrgPW8mdlkMEkcITUbQoP2 odbqHVliLLZaHVJ4JUpui0 65EJI2SFzxOilyEWyiMUXb bmNvbnRccGduZGVjXHBsYW luXHBsYWluXGYwXGZzMjRc yIbtuVspcM6pXkWaUiLmOX frRX9hOOWlU1kjnWNeOEDs MGWrU0kjEcJfoR3mdGjbJB xmczIwIExFRlQgUExFVVJB TCBGTFVJRFxwYXJ9 GROSS DESCRIPTION (test u7zbvXJjWBNryBQoPdTpFO code = 3366) UeEFWkh6riYXQajZBzTjMu MzNcZnRuYmpcdWMxXGRlZm Pbe0kst654yOVzz2uyFGHv QuF1lIQhJEEvaDNiZ529WF NtNWgck7miy7JoXELnlRBr r9F9IOZYjjxjgSl5ySrqP3 9og9U6VccbF6lrLQEzZWZg V1EeHI5oAMAwMsj6NLG0CT G4AHFmSDPsV3PjSU8iBAVn qOLiRPe6k9cipQyaMPVoCI S6a4meAMdaooHzFQ2bsl3v bCd0f7gohfAtKBXjXARjhK LZKVSaH8KkcExcEp4jtRj9 hNgwNqsnXKI4Osz4MW3uhm 44wfs1sTirCSHxdygdBmX0 JBawYPRqcadwEAj9XZgbLQ JnbDcyMFxtYXJncjcyMFxt YXJndDcyMFxtYXJnYjcyMF lyFQSrUTK4CZgon550COQ6 DSgoo0swi6ydsEImPzl6MA LlEkQnVbqaACmgr5Ulp6mi JCFmps0aQVX7nDRbbFqhf6 W7hPOkQDFhzONuftLdOZHa MsJ7VNbqBE4llr52VJRnCN U2bp2mrBFllYtgbyOaqTTn ITmcA0DiICFnq841RKBwM7 WoFSAzh6Z4vmSlLlGwTZMx lPS3dgQ8HRSlXMs5bIDqav I6tcUqiRAhO2hfpE38SxXi fYNtM1EygH30UoLxqBPvJ9 GbfN23FzQapPYuD4WlsJ07 ZsCfnVLgKBYalUXpDn7qtD OucFDsl5BdoOIaQMnhV41r l614BERkqdMsU2pukHNcjq cdaIIutaqzDWzkrcN9AQHn XHBsYWluXGYxXGZzMjJcbG FuZzEwMzNcaGljaFxmMVxk QyZnQIHbCTiuU2mlTeLmPt VvUaNGDTHkuKJiSMT5QFCl qMifLnLjv31xGbn0eOIgdK FzTLTaNIPtijIoJJUhW1i3 m4EifL3kTIFvogWZw0lnOD A7HLR9VPKhMjBhAEotNLQp VlRaNXh6QRB2XACuLkGaTM xwYXJ9 STATEMENT OF ADEQUACY Satisfactory (test code = 2757) Gross assessment was [facility] performed at ([facility], = 2777) Department of Pathology, [address] [place] [address], Technical component was [facility] performed at ([facility], = 2778) Department of Pathology, [address] [place] [address], Professional component [facility] was performed at ([facility], code = 2779) Department of Pathology, [address] [place] [address], [facility]2020[facility] 16:41:00Medical Cytology Report Case: [id number] Aut horizing Provider: Sara Manjarrez MD Collected: 01/18/2020 04:20 PM Ordering Location: [address] Received: 01/19/2020 09:12 AM Pathologist: Samra Coley MD Specimen: Pleural, Left PLEURAL, LEFT, FLUID (CYTOSPINS): - NEGATIVE FOR MALIGNANCY - INCREASED NEUTROPHILS PRESENT Signing Pathologist Direct Phone Line: [phone] signed by Samra Coley MD on 01/19/2020 at 4:41 [id number] pleural effusion; admitted on 01/17/2020 w/ history of HTN, HLD, CAD, obesity, SSS (pacemaker dependent), chronic HFrEF s/p Bi-V ICD (upgrade 2014) who presents from [facility] after aspiration event and for replacement of his pacemakerLEFT PLEURAL FLUIDReceived 800 ml brown fluidPrepared 4 cytospinsCollected: [id number]: [id number] [facility], Department of Pathology, [address] [place] [address], [facility], [address] [place] [address], [facility], Department of [facility]ology, [address] [place] [address], J/S, [id number] 12:40:00CELL COUNTLaterality?->LeftReason for exam:->PLEURAL EFFUSIONShould this be performed at the bedside?->YesLabs to be Ordered:- >Body Fluid Culture (w/Gram Stain, C\\T\\S)Labs to be Ordered:->CytologyLabs to be Ordered:->Fungal CultureLabs to be Ordered:->Glucose+LDH+ProteinLabs to beOrdered:->Other (please add comment)FINAL REPORT Exam: Ultrasound guided thoracentesis Clinical History: Left-sided Pleural Effusion Porcelain Enameler: Cassidy Parra PA-C Supervising Physician: Gregorio Thompson [...] Ultrasound guided left-sided thoracentesis. Signed: Gregorio Thompson MDReportVerified Date/Time: 01/19/2020 12:40:39 Reading Location: [address] Ultrasound Reading Room E lectronically signed by: GREGORIO THOMPSON on 01/19/2020 12:40 PMUS [id number] 12:40:00Interface, External Ris In - 01/19/2020 12:42 PM CDTFINAL REPORT Exam: Ultrasound guided thoracentesis Clinical History: Left-sided Pleural Effusion Porcelain Enameler: Cassidy medina PA-C Supervising Physician: Gregorio Thompson MD Consent: [...] Ultrasound guided left-sided thoracentesis. Signed: Gregorio Thompson MDReport Verified Date/Time: 01/19/2020 12:40:39 ReadingLocation: [facility] B1 [id number] [facility]trasound [facility] 12:39:00 Test Item Value Reference Range Interpretation Comments PTT (test code = 95127-7) 53.1 22.5- 36.0 seconds H Lab Interpretation (test code = Abnormal 06678-8) [facility] 12:39:00 Test Item Value Reference Range Interpretation Comments PARTIAL THROMBOPLASTIN TIME 53.1 seconds 22.5-36.0 H (BEAKER) (test code = 760) CT, CHEST, WITHOUT [id number] 12:17:00FINAL REPORT CT Chest without contrast History: [...] George MDReport Verified Date/Time: 01/19/202012:17:48 Reading Location: [facility] Mammo Reading Room CT chest without IV [id number] 12:17:00Interface, External Ris In - 01/19/2020 12:20 [...] edema. Signed: Matthew George MDReport Verified Date/Time: 01/19/2020 12:17:48 Reading Location: [facility] Mammo Reading Room [facility]-GLUCOSE [id number] 06:13:00 Test Item Value Reference Range Interpretation Comments POC-GLUCOSE METER 128 mg/dL 70-110 H : [facility] ([facility]ER) (test code = [place], 1538) [address]: Enterprise Software Developer/Techni lars ID = [id number] for RONY MTZ C-Reactive [id number] 05:43:00 Test Item Value Reference Range Interpretation Comments CRP (test code = 676) 9.08 mg/dL 0-0.5 H DMITRIY (test code = DMITRIY) Enterprise Software Developer ID - ADAMARIS [facility] Interpretation (test Abnormal code = 62715-2) [facility]-25 05:43:00 Test Item Value Reference Range Interpretation Comments MAGNESIUM (BEAKER) (test code = 1.9 mg/dL 1.6-2.6 627) Enterprise Software Developer ID - ADAMARIS MBASIC METABOLIC [id number] 05:43:00 Test Item Value Reference Range Interpretation [...] S NOT APPLICABLE FOR DIALYSIS PATIEN TS. Enterprise Software Developer ID - ADAMARIS MHEPATIC FUNCTION [id number] 05:43:00 Test Item Value Reference Range Interpretation [...] (test code = 23 U/L 6-55 347) Enterprise Software Developer ID - ADAMARIS MCREATINE KINASE (CK)2020-01-19 05:43:00 Test Item Value Reference Range Interpretation Comments CREATINE KINASE TOTAL (BEAKER) (test 22 U/L 29-200 L code = 380) Enterprise Software Developer ID - ADAMARIS MC-REACTIVE [id number] 05:43:00 Test Item Value Reference Range Interpretation Comments C-REACTIVE PROTEIN (BEAKER) (test 9.08 mg/dL 0.00-0.50 H code = 676) Enterprise Software Developer ID - ADAMARIS MCBC (HEMOGRAM ONLY)2020-01-19 05:24:00 [...] WBC 0-0 (BEAKER) (test code = 413) [id number] 05:21:00 Test Item Value Reference Range Interpretation [...] INR is2.5-3.5 for patients wiht mechanical heart valves.[id number] 23:47:00 Test Item Value Reference Range Interpretation Comments PARTIAL THROMBOPLASTIN TIME 59.5 seconds 22.5-36.0 H (BEAKER) (test code = 760) POCT-GLUCOSE [id number] 23:37:00 Test Item Value Reference Range Interpretation Comments POC-GLUCOSE METER 128 mg/dL 70-110 H : TESTED A T [facility] 6720 (BEAKER) (test code = PITER Fields [facility], 1538) 04495: Enterprise Software Developer/Techni lars ID = [id number] for UE MARTI, RONY Protein, Total, Pleural [id number] 22:11:00 Test Item Value Reference Range Interpretation Comments PROTEIN, TOTAL, PLEURAL FLUID (test 3.5 code = 2882-9) [facility] ValleyBody fluid cell count with [id number] 18:12:00 Test Item Value Reference Range Interpretation Comments Appearance (test code = Slightly Cloudy Clear A 9335-1) Color (test code = 6824-7) Juliette Colorless, Straw A RBCs (test code = 35709-4) 95001 <=1 /cu mm H Adjusted WBC Count (test 901 <=5 /cu mm H code = 12233-1) Lining Cells (test code = 9 <=1 /cu mm H 28482-3) % Segs (test code = 13516-7) 55 % % Lymphs (test code = 27 % 10822-7) % Monos (test code = 18 % 86244-0) % Eos (test code = 69715-4) 0 % % Baso (test code = 44660-5) 0 % Container Body Fluid (test EDTA Tube code = 2873) Lab Interpretation (test Abnormal code = 14807-0) [facility] ValleyBODY FLUID CELL COUNT WITH [id number] 18:12:00 Test Item Value Reference Range Interpretation Comments APPEARANCE FLUID (BEAKER) Slightly Cloudy Clear A (test code = 510) COLOR FLUID (BEAKER) (test Juliette Colorless, Straw A code = 511) RBC FLUID (BEAKER) (test 71374 /cu mm <=1 H code = 513) [...] Tube (BEAKER) (test code = 2873) POCT-GLUCOSE [id number] 17:51:00 Test Item Value Reference Range Interpretation Comments POC-GLUCOSE METER 125 mg/dL 70-110 H : TESTED A T [facility] 6720 (BEAKER) (test code = [place], 1538) [address]: Enterprise Software Developer/Techni lars ID = [id number] for LORIJorgeJESSEE SKINNER AG [id number] 17:20:00 Test Item Value Reference Range Interpretation Comments PARTIAL THROMBOPLASTIN TIME 35.5 seconds 22.5-36.0 (BEAKER) (test code = 760) RAD, CHEST, 1 VIEW, NON [id number] 16:12:00Reason for exam:->post left sided thoracentesisShould this [...] Stable contours. Additional findings: None. Signed: Alvaro Huertaort Verified Date/Time: 01/18/2020 16:12:43 POCT-GLUCOSE [id number] 12:20:00 Test Item Value Reference Range Interpretation Comments POC-GLUCOSE METER 107 mg/dL 70-110 : TESTED A T [facility] 6720 ([employer]) (test code = PITER Fields [facility], 1538) 65826: Enterprise Software Developer/Techni lars ID = [id number] for AG ROBINS RAD, CHEST, 1 VIEW, NON [id number] 05:28:00Reason for exam:->PLEURAL EFFUSIONShould this be performed [...] to the upper abdomen. Signed: Hiram Burton Verified Date/Time: 01/18/2020 05:28:26 Lactate dehydrogenase (LDH)2020-01-18 04:58:00 Test Item Value Reference Range Interpretation Comments LDH (test code = 2532-0) 145 U/L 125-220 DMITRIY (test code = DMITRIY) Enterprise Software Developer ID - ADAMARIS [place] Lab Interpretation (test Normal code = 25100-0) [facility] ValleyCREATINE KINASE (CK)2020-01-18 04:58:00 Test Item Value Reference Range Interpretation Comments CREATINE KINASE TOTAL (BEAKER) (test 35 U/L 29-200 code = 380) Enterprise Software Developer ID - ADAMARIS MLACTATE DEHYDROGENASE (LDH)2020-01-18 04:58:00 Test Item Value Reference Range Interpretation Comments LACTATE DEHYDROGENASE (BEAKER) (test 145 U/L 125-220 code = 635) Enterprise Software Developer ID - ADAMARIS MBASIC METABOLIC [id number] 04:58:00 Test Item Value Reference Range Interpretation [...] S NOT APPLICABLE FOR DIALYSIS PATIEN TS. Enterprise Software Developer ID - ADAMARIS MHEPATIC FUNCTION [id number] 04:58:00 Test Item Value Reference Range Interpretation [...] (test code = 24 U/L 6-55 347) Enterprise Software Developer ID - ADAMARIS MPT/[id number] 04:53:00 Test Item Value Reference Range Interpretation [...] 0-0 (BEAKER) (test code = 413) POCT-GLUCOSE [id number] 00:46:00 Test Item Value Reference Range Interpretation Comments POC-GLUCOSE METER 107 mg/dL 70-110 : TESTED A T [facility] 6720 (BEAKER) (test code [facility], = 1538) 76452: Enterprise Software Developer/Techni lars ID = [id number] for SAQIB BAKER [id number] 21:46:00 Test Item Value Reference Range Interpretation Comments PARTIAL THROMBOPLASTIN TIME 44.2 seconds 22.5-36.0 H (BEAKER) (test code = 760) Prior to initiating heparinPlatelet [id number] 21:38:00 Test Item Value Reference Range Interpretation Comments Platelets (test code = 168 150- 450 K/CU MM 777-3) DMITRIY (test code = DMITRIY) Enterprise Software Developer ID - [id number] Lab Interpretation (test Normal code = 62614-4) [facility] ValleyPLATELET [id number] 21:38:00 Test Item Value Reference Range Interpretation Comments PLATELET COUNT (BEAKER) (test 168 K/CU MM 150-450 code = 756) Enterprise Software Developer ID - [id number]-GLUCOSE [id number] 18:53:00 Test Item Value Reference Range Interpretation Comments POC-GLUCOSE METER 119 mg/dL 70-110 H : TESTED A T [facility] 6720 (BEAKER) (test code = PITER Fields [facility], 1538) 31113: Enterprise Software Developer/Techni lars ID = [id number] for WILLIS OREILLY FUNGUS CULTURE + [id number] 17:59:00 Test Item Value Reference Range Interpretation Comments CULTURE (BEAKER) (test No fungus isolated in code = 1095) 28 days FUNGUS SMEAR (BEAKER) No fungi seen (test code = 1406) BLOOD [id number] 15:00:00 Test Item Value Reference Range Interpretation Comments CULTURE (BEAKER) (test No growth in 5 days code = 1095) BLOOD [id number] 15:00:00 Test Item Value Reference Range Interpretation Comments CULTURE (BEAKER) (test No growth in 5 days code = 1095) POCT-GLUCOSE [id number] 12:40:00 Test Item Value Reference Range Interpretation Comments POC-GLUCOSE METER 162 mg/dL 70-110 H : TESTED A T [facility] 6720 (BEAKER) (test code = [facility], 1538) 67447: Enterprise Software Developer/Techni lars ID = [id number] for LISBET KRAMER POCT-GLUCOSE [id number] 06:25:00 Test Item Value Reference Range Interpretation Comments POC-GLUCOSE METER 152 mg/dL 70-110 H : TESTED A T [facility] 6720 (BEAKER) (test code = [facility], 1538) 18310: Enterprise Software Developer/Techni lars ID = [id number] for MACIEJ BERRY Calcium, [id number] 05:12:00 Test Item Value Reference Range Interpretation Comments Calcium, Ion (test code = 1993-) 1.24 mmol/L 1.12-1.27 pH, Blood (test code = 74601-4) 7.53 [facility], [id number] 05:12:00 Test Item Value Reference Range Interpretation Comments CALCIUM IONIZED (BEAKER) (test 1.24 mmol/L 1.12-1.27 code = 698) PH, BLOOD (BEAKER) (test code = 7.53 1810) Comprehensive metabolic [id number] 04:42:00 Test Item Value Reference Range Interpretation Comments Protein, Total (test 6.1 6.0- 8.3 gm/dL code = 2885-2) Albumin (test code = 2.0 g/dL 3.5-5 L 33203-6) Alkaline Phosphatase 95 U/L 40-150 (test code [...] Calcium (test code = 9.4 mg/dL 8.4-10.2 41718-2) AST (test code = 38 U/L 5-34 H 1920-8) ALT (test code = 30 U/L 6-55 1742-6) EGFR (test code = 49 mL/min/1.73 [place] [address]-3) NOT ACCURATE CREATININE CLEARANCE IN PREDICTING GLOMERULAR FILTRATION RATE . ESTIMATED GFR I S NOT APPLICABLE FOR DIALYSIS PATIENTS. DMITRIY (test code = DMITRIY) Enterprise Software Developer ELLY MAYFIELD W Lab Interpretation Abnormal (test code = 50370-3) [facility] ValleyPhosphorus2020-03-05 04:42:00 Test Item Value Reference Range Interpretation Comments Phosphorus (test code = 2.9 mg/dL 2.3-4.7 2777-1) DMITRIY (test code = DMITRIY) Enterprise Software Developer ID Jorge MAYFIELD W Lab Interpretation (test Normal code = 72134-7) [facility] ValleyPHOSPHORUS2020-03-05 04:42:00 Test Item Value Reference Range Interpretation Comments PHOSPHORUS (BEAKER) (test code = 2.9 mg/dL 2.3-4.7 604) Enterprise Software Developer ID Jorge MANCIANA [id number] 04:42:00 Test Item Value Reference Range Interpretation Comments MAGNESIUM (BEAKER) (test code = 2.2 mg/dL 1.6-2.6 627) Enterprise Software Developer ID Jorge MANCIANA WCOMPREHENSIVE METABOLIC [id number] 04:42:00 Test Item Value Reference Range Interpretation [...] S NOT APPLICABLE FOR DIALYSIS PATIEN TS. Enterprise Software Developer ID - TRAN [id number] 04:41:00 Test Item Value Reference Range Interpretation Comments PARTIAL THROMBOPLASTIN TIME 72.3 seconds 22.5-36.0 H (BEAKER) (test code = 760) CBC W/PLT COUNT & AUTO [id number] 04:27:00 Test Item Value Reference Range Interpretation [...] 0-1 PERCENT (BEAKER) (test code = 2801) [id number] 23:27:00 Test Item Value Reference Range Interpretation Comments Potassium (test code = 3.5 meq/L 3.5-5.1 Speci men 2823-3) slightly hemolyzed DMITRIY (test code = DMITRIY) Enterprise Software Developer ID - PIAYA L Lab Interpretation Normal (test code = 01715-8) [facility] ValleyMAGNESIUM2020-03-04 23:27:00 Test Item Value Reference Range Interpretation Comments MAGNESIUM (BEAKER) 2.3 mg/dL 1.6-2.6 Specimen slightly (test code = 627) hemolyzed Enterprise Software Developer ID - LV [id number] 23:27:00 Test Item Value Reference Range Interpretation Comments POTASSIUM (BEAKER) 3.5 meq/L 3.5-5.1 Specimen slightly (test code = 379) hemolyzed Enterprise Software Developer ID - LV LPOCT-GLUCOSE [id number] 22:08:00 Test Item Value Reference Range Interpretation Comments POC-GLUCOSE METER 137 mg/dL 70-110 H : TESTED A T [facility] 6720 (BEAKER) (test code = [facility], 1538) 38106: Enterprise Software Developer/Techni lars ID = [id number] for MACIEJ BERRY POCT-GLUCOSE [id number] 18:25:00 Test Item Value Reference Range Interpretation Comments POC-GLUCOSE METER 138 mg/dL 70-110 H : TESTED A T [facility] 6720 (BEAKER) (test code = [facility], 1538) 75621: Enterprise Software Developer/Techni lars ID = [id number] for ZAC COBURN, LISBET BLOOD [id number] 18:00:00 Test Item Value Reference Range Interpretation Comments CULTURE (BEAKER) (test No growth in 5 days code = 1095) BLOOD [id number] 18:00:00 Test Item Value Reference Range Interpretation Comments CULTURE (BEAKER) (test No growth in 5 days code = 1095) POCT-GLUCOSE [id number] 12:30:00 Test Item Value Reference Range Interpretation Comments POC-GLUCOSE METER 165 mg/dL 70-110 H : TESTED A T [facility] 6720 (BEAKER) (test code = [facility], 1538) 69820: Enterprise Software Developer/Techni lars ID = [id number] for ZAC FAROOQNDEZ, LISBET CBC W/PLT COUNT & AUTO [id number] 05:53:00 Test Item Value Reference Range Interpretation [...] (BEAKER) (test code = 2801) COMPREHENSIVE METABOLIC [id number] 05:32:00 Test Item Value Reference Range Interpretation [...] S NOT APPLICABLE FOR DIALYSIS PATIEN TS. Enterprise Software Developer ID - TRAN [id number] 05:25:00 Test Item Value Reference Range Interpretation Comments PHOSPHORUS (BEAKER) (test code = 3.7 mg/dL 2.3-4.7 604) Enterprise Software Developer ID - TRAN [id number] 05:25:00 Test Item Value Reference Range Interpretation Comments MAGNESIUM (BEAKER) (test code = 2.2 mg/dL 1.6-2.6 627) Enterprise Software Developer ID - TRAN WB-type Natriuretic Factor (BNP)2019-12-29 05:14:00 Test Item Value Reference Range Interpretation Comments BNP (test code = 53952-5) 562 pg/mL 0-100 H DMITRIY (test code = DMITRIY) Enterprise Software Developer ID - TRAN W Lab Interpretation (test Abnormal code = 50980-9) [facility] ValleyB-TYPE NATRIURETIC FACTOR (BNP)2019-12-29 05:14:00 Test Item Value Reference Range Interpretation Comments B-TYPE NATRIURETIC PEPTIDE (BEAKER) 562 pg/mL 0-100 H (test code = 700) Enterprise Software Developer ID Jorge MAYFIELD [id number] 05:02:00 Test Item Value Reference Range Interpretation Comments PARTIAL THROMBOPLASTIN TIME 70.5 seconds 22.5-36.0 H (BEAKER) (test code = 760) CALCIUM, [id number] 04:39:00 Test Item Value Reference Range Interpretation Comments CALCIUM IONIZED (BEAKER) (test 1.19 mmol/L 1.12-1.27 code = 698) PH, BLOOD (BEAKER) (test code = 7.50 1810) [id number] 01:00:00 Test Item Value Reference Range Interpretation Comments POTASSIUM (BEAKER) 3.2 meq/L 3.5-5.1 L Specimen slightly (test code = 379) hemolyzed Enterprise Software Developer ID - BSPOCT-GLUCOSE [id number] 00:50:00 Test Item Value Reference Range Interpretation Comments POC-GLUCOSE METER 130 mg/dL 70-110 H : TESTED A T [facility] 6720 (BEAKER) (test code = [facility], 1538) 17376: Enterprise Software Developer/Techni lars ID = [id number] for MACIEJ BERRY POCT-GLUCOSE [id number] 19:07:00 Test Item Value Reference Range Interpretation Comments POC-GLUCOSE METER 145 mg/dL 70-110 H : TESTED A T [facility] 6720 (BEAKER) (test code = [facility], 1538) 42163: Enterprise Software Developer/Techni lars ID = [id number] for AG CAROL ANN LOPEZ BASIC METABOLIC [id number] 17:36:00 Test Item Value Reference Range Interpretation [...] S NOT APPLICABLE FOR DIALYSIS PATIEN TS. Enterprise Software Developer ID - [id number] 17:28:00 Test Item Value Reference Range Interpretation Comments PARTIAL THROMBOPLASTIN TIME 87.7 seconds 22.5-36.0 H (BEAKER) (test code = 760) [id number] 13:09:00 Test Item Value Reference Range Interpretation Comments PARTIAL THROMBOPLASTIN TIME 84.3 seconds 22.5-36.0 H (BEAKER) (test code = 760) BLOOD [id number] 13:00:00 Test Item Value Reference Range Interpretation Comments CULTURE (BEAKER) (test No growth in 5 days code = 1095) POCT-GLUCOSE [id number] 12:25:00 Test Item Value Reference Range Interpretation Comments POC-GLUCOSE METER 158 mg/dL 70-110 H : TESTED A T [facility] 6720 (BEAKER) (test code = PITER [place] [facility], 1538) 88046: Enterprise Software Developer/Techni lars ID = [id number] for AG UILAR, CAROL ANN RAD, CHEST, 1 VIEW, NON [id number] 12:22:00Reason for exam:- >intubationShould this be performed at the bedside?->YesFINAL REPORT RAD, CHEST, 1 VIEW, NON DEPT INDICATION: intubation COMPARISON: Prior day's exam FINDINGS: Portable frontal view of the chest. IMPRESSION: Support Lines: Stable. Lungs and pleura: Unchanged airspace and pleural opacities. No pneumothorax.Heart and mediastinum: Stable contours. Stable surgical changes.Additional findings: None. Signed: Madeline Casas MDReport Verified Date/Time: 12/28/2019 12:22:37 Reading Location: [facility] Reading Room BLOOD [id number] 11:00:00 Test Item Value Reference Range Interpretation Comments CULTURE (BEAKER) (test No growth in 5 days code = 1095) BLOOD [id number] 10:01:00 Test Item Value Reference Range Interpretation [...] gram positive 1123) cocci in clusters POCT-GLUCOSE [id number] 06:57:00 Test Item Value Reference Range Interpretation Comments POC-GLUCOSE METER 178 mg/dL 70-110 H : TESTED A T [facility] 6720 (BEAKER) (test code = [place], 1538) [address]: Enterprise Software Developer/Techni lars ID = [id number] for MACIEJ BERRY Blood gas, [id number] 05:21:00 Test Item Value Reference Range Interpretation Comments pH, Arterial (test code = 2744-1) 7.54 7.35-7.45 H pCO2, Arterial (test code = 36 35- 45 mmHg 2019-05) pO2, Arterial (test code = 2703-7) 159 80- 90 mmHg H O2 Sat, Arterial (test code = 99.2 % 96-97 H 2707-6) HCO3, Arterial (test code = 30 mmol/L 21-29 H 1959-) Base Excess, Arterial (test code = 7.0 mmol/L -2-3 H 1924-7) Patient Temperature (test code = 37.0 C 8310-5) FIO2 (test code = 1819) 40 % Lab Interpretation (test code = Abnormal 60614-9) [facility] ValleyBLOOD GAS, [id number] 05:21:00 Test Item Value Reference Range Interpretation [...] (BEAKER) (test code = 1819) 40.0 % [id number] 05:18:00 Test Item Value Reference Range Interpretation Comments MAGNESIUM (BEAKER) 2.4 mg/dL 1.6-2.6 Specimen slightly (test code = 627) hemolyzed Enterprise Software Developer ID - TRAN [id number] 05:18:00 Test Item Value Reference Range Interpretation Comments PHOSPHORUS (BEAKER) 3.9 mg/dL 2.3-4.7 Specimen slightly (test code = 604) hemolyzed Enterprise Software Developer ID - TRAN WCOMPREHENSIVE METABOLIC [id number] 05:18:00 Test Item Value Reference Range Interpretation [...] S NOT APPLICABLE FOR DIALYSIS PATIEN TS. Enterprise Software Developer ID - TRAN WCBC W/PLT COUNT & AUTO [id number] 05:17:00 Test Item Value Reference Range Interpretation [...] PERCENT (BEAKER) (test code = 2801) CALCIUM, [id number] 05:05:00 Test Item Value Reference Range Interpretation Comments CALCIUM IONIZED (BEAKER) (test 1.24 mmol/L 1.12-1.27 code = 698) PH, BLOOD (BEAKER) (test code = 7.53 1810) [id number] 05:03:00 Test Item Value Reference Range Interpretation Comments PARTIAL THROMBOPLASTIN TIME 64.3 seconds 22.5-36.0 H (BEAKER) (test code = 760) POCT-GLUCOSE [id number] 00:13:00 Test Item Value Reference Range Interpretation Comments POC-GLUCOSE METER 154 mg/dL 70-110 H : TESTED A T [facility] 6720 (BEAKER) (test code = [place], 1538) [address]: Enterprise Software Developer/Techni lars ID = [id number] for YE MACIEJ Prepare Leuko-Red [id number] 23:54:00 Test Item Value Reference Range Interpretation Comments CROSSMATCH (test code = 2264) COMPATIBLE Unit ABO (test code = O Pos 8136722) UNIT NUMBER (test code = [id number] 934-0) Status (test code = 7592368) [facility] Blood Bank Product (test code RED BLOOD CELLS = 2263) PRODUCT CODE (test code = Y4348V92 933-2) [facility] ValleyPOTASSIUM2020-03-02 23:38:00 Test Item Value Reference Range Interpretation Comments POTASSIUM (BEAKER) (test code = 3.1 meq/L 3.5-5.1 L 379) Enterprise Software Developer ID - [id number] 23:38:00 Test Item Value Reference Range Interpretation Comments MAGNESIUM (BEAKER) (test code = 2.3 mg/dL 1.6-2.6 627) Enterprise Software Developer ID - DBPOCT-GLUCOSE [id number] 18:39:00 Test Item Value Reference Range Interpretation Comments POC-GLUCOSE METER 167 mg/dL 70-110 H : TESTED A T [facility] 6720 (BEAKER) (test code = [place], 1538) [address]: Enterprise Software Developer/Techni lars ID = [id number] for AG UILAR, CAROL ANN CBC W/PLT COUNT & AUTO [id number] 18:12:00 Test Item Value Reference Range Interpretation [...] 0-1 PERCENT (BEAKER) (test code = 2801) [id number] 15:37:00 Test Item Value Reference Range Interpretation Comments POTASSIUM (BEAKER) (test code = 3.2 meq/L 3.5-5.1 L 379) Enterprise Software Developer ID - [id number] 15:37:00 Test Item Value Reference Range Interpretation Comments MAGNESIUM (BEAKER) (test code = 2.2 mg/dL 1.6-2.6 627) Enterprise Software Developer ID - BSPOCT-GLUCOSE [id number] 14:19:00 Test Item Value Reference Range Interpretation Comments POC-GLUCOSE METER 146 mg/dL 70-110 H : TESTED A T [facility] 6720 (BEAKER) (test code = [place], 1538) [address]: Enterprise Software Developer/Techni lars ID = [id number] for AG UILAR, CAROL ANN Lactate dehydrogenase (LDH), body [id number] 10:47:00 Test Item Value Reference Range Interpretation Comments LDH, Fluid (test 235 U/L code = 33014-0) DMITRIY (test code = Absence of reference DMITRIY) range indicates that normals have not been defined.Assay performance has not been validated for this type of specimen. [facility] ValleyLACTATE DEHYDROGENASE (LDH), BODY [id number] 10:47:00 Test Item Value Reference Range Interpretation Comments LACTATE DEHYDROGENASE FLUID (BEAKER) 235 U/L (test code = 634) Absence of reference range indicates that normals have not been defined.Assay performance has not been validated for this type of specimen.POCT-GLUCOSE METER 2019-12-27 06:50:00 Test Item Value Reference Range Interpretation Comments POC-GLUCOSE METER 155 mg/dL 70-110 H : TESTED A T [facility] 6720 (BEAKER) (test code = [place], 1538) 65[address]: Enterprise Software Developer/Techni lasr ID = [id number] for MACIEJ BERRY BLOOD GAS, [id number] 05:55:00 Test Item Value Reference Range Interpretation [...] 30.0 % CBC W/PLT COUNT & AUTO [id number] 04:59:00 Test Item Value Reference Range Interpretation [...] (BEAKER) (test code = 2801) Hemoglobin and [id number] 04:58:00 Test Item Value Reference Range Interpretation Comments Hemoglobin (test code = 7.6 13.7- 17.5 GM/DL L 786-4) Hematocrit (test code = 24.1 % 40.1-51 L 4544-3) DMITRIY (test code = DMITRIY) Enterprise Software Developer ID - [id number] Lab Interpretation (test Abnormal code = 57298-0) [facility] ValleyHEMOGLOBIN AND [id number] 04:58:00 Test Item Value Reference Range Interpretation Comments HEMOGLOBIN (BEAKER) (test code = 7.6 GM/DL 13.7-17.5 L 410) HEMATOCRIT (BEAKER) (test code = 24.1 % 40.1-51.0 L 411) Enterprise Software Developer ID - [id number] 04:54:00 Test Item Value Reference Range Interpretation Comments PARTIAL THROMBOPLASTIN TIME 94.7 seconds 22.5-36.0 H (BEAKER) (test code = 760) [id number] 04:51:00 Test Item Value Reference Range Interpretation Comments MAGNESIUM (BEAKER) (test code = 2.3 mg/dL 1.6-2.6 627) Enterprise Software Developer ID - ADAMARIS MBASIC METABOLIC [id number] 04:51:00 Test Item Value Reference Range Interpretation [...] S NOT APPLICABLE FOR DIALYSIS PATIEN TS. Enterprise Software Developer ID - ADAMARIS MRAD, CHEST, 1 VIEW, NON [id number] 04:19:00Reason for exam:->intubationShould this be performed at the bedside?->YesFINAL REPORT RAD, CHEST, 1 VIEW, NON DEPT INDICATION: intubation COMPARISON: Prior day's exam FINDINGS: Portable frontal view of the chest. IMPRESSION: Support Lines: Stable. Lungs and pleura: Unchanged airspace and pleural opacities. No pneumothorax.Heart and mediastinum: Stable contours. Additional findings: None. Signed: Iraida Henley Verified Date/Time: 12/27/2019 04:19:08 POCT-GLUCOSE [id number] 00:40:00 Test Item Value Reference Range Interpretation Comments POC-GLUCOSE METER 136 mg/dL 70-110 H : TESTED A T [facility] 6720 (BEAKER) (test code [facility], = 1538) 32280: Enterprise Software Developer/Techni lars ID = [id number] for MADELEINE CAMARENA [id number] 00:20:00 Test Item Value Reference Range Interpretation Comments POTASSIUM (BEAKER) (test code = 3.2 meq/L 3.5-5.1 L 379) Enterprise Software Developer ID - KENNHEMOGLOBIN AND [id number] 00:06:00 Test Item Value Reference Range Interpretation Comments HEMOGLOBIN (BEAKER) (test code = 7.8 GM/DL 13.7-17.5 L 410) HEMATOCRIT (BEAKER) (test code = 25.4 % 40.1-51.0 L 411) Enterprise Software Developer ID - [id number] 23:02:00 Test Item Value Reference Range Interpretation Comments PARTIAL THROMBOPLASTIN TIME 75.0 seconds 22.5-36.0 H (BEAKER) (test code = 760) [id number] 18:20:00 Test Item Value Reference Range Interpretation Comments POTASSIUM (BEAKER) (test code = 2.9 meq/L 3.5-5.1 L 379) Enterprise Software Developer ID - STACY [id number] 18:20:00 Test Item Value Reference Range Interpretation Comments MAGNESIUM (BEAKER) (test code = 2.3 mg/dL 1.6-2.6 627) Enterprise Software Developer ID - STACY NPOCT-GLUCOSE [id number] 17:33:00 Test Item Value Reference Range Interpretation Comments POC-GLUCOSE METER 127 mg/dL 70-110 H : TESTED A T [facility] 6720 (BEAKER) (test code = [facility] Diamond [facility], 1538) 07269: Enterprise Software Developer/Techni lars ID = [id number] for [place] CULVER HEMOGLOBIN AND [id number] 14:43:00 Test Item Value Reference Range Interpretation Comments HEMOGLOBIN (BEAKER) (test code = 7.8 GM/DL 13.7-17.5 L 410) HEMATOCRIT (BEAKER) (test code = 25.0 % 40.1-51.0 L 411) Enterprise Software Developer ID - [id number]-GLUCOSE [id number] 13:37:00 Test Item Value Reference Range Interpretation Comments POC-GLUCOSE METER 123 mg/dL 70-110 H : TESTED A T [facility] 6720 (BEAKER) (test code = PITER Fields [facility], 1538) 67328: Enterprise Software Developer/Techni lars ID = [id number] for [place] CULVER BLOOD [id number] 12:41:00 Test Item Value Reference Interpretation Comments [...] positive cocci in clusters Type and screen, [id number] 09:51:00 Test Item Value Reference Range Interpretation Comments ABO/RH AUTOMATED (BEAKER) (test O POSITIVE code = 2260) Ab Scrn (test code = 890-4) NEGATIVE [facility] 09[facility]37[facility]00 Test Item Value Reference Range Interpretation Comments PARTIAL THROMBOPLASTIN TIME 97.2 seconds 22.5-36.0 H (BEAKER) (test code = 760) RAD, CHEST, 1 VIEW, NON [id number] 09:11:00Reason for exam:- >intubationShould this be performed at the bedside?->YesFINAL REPORT Chest, one view HISTORY: Respiratory failure Comparison: 12/25/2019 Findings: Lungs: Stable bibasilar airspace disease. Heart: Stable cardiomegaly. Pleura: No pleuraleffusion or pneumothorax. Bones: Unremarkable. Lines/tubes: Unchanged in position. IMPRESSION: No significant interval change. Signed: Matthew George MDReport Verified Date/Time: 12/26/2019 09:11:59 R eading Location: [address] Ortho Consult Reading Room Sputum Culture + Gram Stain 2019-12-26 09:01:00 Test Item Value Reference Range Interpretation Comments Result (test code = See comment 6463-4) Gram Stain Result <1+ gram variable (test code = 1123) coccobacilli DMITRIY (test code = 1+ YeastNo Normal DMITRIY) respiratory [facility]an present [facility] + GRAM [id number] 09:01:00 Test Item Value Reference Range Interpretation Comments CULTURE (BEAKER) See comment (test code = 1095) GRAM STAIN RESULT 1+ WBCs (BEAKER) (test code = 1123) GRAM STAIN RESULT 0-5 epithelial cells (BEAKER) (test code = 383688) GRAM STAIN RESULT <1+ gram positive cocci (BEAKER) (test code in pairs = 649448) GRAM STAIN RESULT <1+ budding yeast (BEAKER) (test code = 884954) GRAM STAIN RESULT <1+ gram variable (BEAKER) (test code coccobacilli = 919479) 1+ YeastNo Normal respiratory juan presentHEMOGLOBIN AND [id number] 08:11:00 Test Item Value Reference Range Interpretation Comments HEMOGLOBIN (BEAKER) (test code = 6.6 GM/DL 13.7-17.5 L 410) HEMATOCRIT (BEAKER) (test code = 20.9 % 40.1-51.0 L 411) Enterprise Software Developer ID - 6000POCT-GLUCOSE [id number] 06:39:00 Test Item Value Reference Range Interpretation Comments POC-GLUCOSE METER 130 mg/dL 70-110 H : TESTED A T [facility] 6720 (BEAKER) (test code = [place], 1538) [address]: Enterprise Software Developer/Techni lars ID = [id number] for MACIEJ BERRY BLOOD GAS, [id number] 05:05:00 Test Item Value Reference Range Interpretation [...] (BEAKER) (test code = 1819) 30.0 % [id number] 03:31:00 Test Item Value Reference Range Interpretation Comments MAGNESIUM (BEAKER) 2.1 mg/dL 1.6-2.6 Specimen slightly (test code = 627) hemolyzed Enterprise Software Developer ID - ADAMARIS MBASIC METABOLIC [id number] 03:31:00 Test Item Value Reference Range Interpretation [...] I S NOT APPLICABLE FOR DIALYSIS PATIEN TSElver Enterprise Software Developer ID - ADAMARIS [id number] 03:18:00 Test Item Value Reference Range Interpretation Comments PARTIAL THROMBOPLASTIN TIME 79.6 seconds 22.5-36.0 H (BEAKER) (test code = 760) CBC W/PLT COUNT & AUTO [id number] 03:06:00 Test Item Value Reference Range Interpretation [...] PERCENT (BEAKER) (test code = 2801) POCT-GLUCOSE [id number] 00:00:00 Test Item Value Reference Range Interpretation Comments POC-GLUCOSE METER 100 mg/dL 70-110 : TESTED A T [facility] 6720 (BEAKER) (test code = PITER [place] [facility], 1538) [address]: Enterprise Software Developer/Techni lars ID = [id number] for YE WEIPING Eosinophil [id number] 20:38:00 Test Item Value Reference Range Interpretation Comments Eosinophil Smear (test code = No EOS seen No EOS seen 57209-1) Lab Interpretation (test code = Normal 11236-0) [facility] ValleyEOSINOPHIL SMEAR, [id number] 20:38:00 Test Item Value Reference Range Interpretation Comments EOSINOPHIL SMEAR, URINE (BEAKER) No EOS seen No EOS seen (test code = 1851) Sodium, random [id number] 20:30:00 Test Item Value Reference Range Interpretation Comments Sodium Urine (test <20 meq/L code = 2955-3) DMITRIY (test code = Reference Range: No DMITRIY) NormalsOperator ID - KONRAD [facility] CenterODIUM, RANDOM [id number] 20:30:00 Test Item Value Reference Range Interpretation Comments SODIUM URINE (BEAKER) (test code = < meq/L 243) Reference Range: No NormalsOperator ID - [id number] 20:29:00 Test Item Value Reference Range Interpretation Comments PARTIAL THROMBOPLASTIN TIME 56.5 seconds 22.5-36.0 H (BEAKER) (test code = 760) Creatinine, random [id number] 19:41:00 Test Item Value Reference Range Interpretation Comments Creatinine, Ur 51.6 mg/dL (test code = 2161-8) DMITRIY (test code = Reference Range: No DMITRIY) NormalsOperator ID - KONRAD Kern ValleyProtein, random [id number] 19:41:00 Test Item Value Reference Range Interpretation Comments Protein, Urine (test code 22 mg/dL 0-14 H = 2888-6) DMITRIY (test code = DMITRIY) Enterprise Software Developer ID - KONRAD Lab Interpretation (test Abnormal code = 78310-2) [place] ValleyCREATININE, RANDOM [id number] 19:41:00 Test Item Value Reference Range Interpretation Comments CREATININE URINE (BEAKER) (test 51.6 mg/dL code = 375) Reference Range: No NormalsOperator ID - STACYNPROTEIN, RANDOM [id number] 19:41:00 Test Item Value Reference Range Interpretation Comments PROTEIN, URINE (BEAKER) (test code = 22 mg/dL 0-14 H 1569) Enterprise Software Developer ID - [id number] 18:41:00 Test Item Value Reference Range Interpretation Comments PARTIAL THROMBOPLASTIN TIME 114.5 seconds 22.5-36.0 H (BEAKER) (test code = 760) POCT-GLUCOSE [id number] 18:24:00 Test Item Value Reference Range Interpretation Comments POC-GLUCOSE METER 130 mg/dL 70-110 H : TESTED A T [facility] 6720 (BEAKER) (test code = [place] [facility], 1538) [address]: Enterprise Software Developer/Techni lars ID = [id number] for ZAC REJI COBURNESTE BLOOD [id number] 16:17:00 Test Item Value Reference Range Interpretation Comments CULTURE A From Anaerobic Bottle (BEAKER) (test Only Coagulas e code = 1095) negative Staphylococcus GRAM STAIN From anaerobic RESULT (BEAKER) bottle only: gram (test code = positive cocci in 1123) clusters BODY FLUID CULTURE + GRAM [id number] 13:20:00 Test Item Value Reference Range Interpretation Comments CULTURE (BEAKER) (test No growth code = 1095) GRAM STAIN RESULT <1+ White blood cells (BEAKER) (test code = seen 1123) GRAM STAIN RESULT No organisms seen (BEAKER) (test code = 79787) POCT-GLUCOSE [id number] 12:41:00 Test Item Value Reference Range Interpretation Comments POC-GLUCOSE METER 143 mg/dL 70-110 H : TESTED A [facility]bel [facility] 67[address] (HAYDEN) (test code = [place], 1538) [address]: Enterprise Software Developer/Techni lars ID = [id number] for LISBET KRAMER [id number] 12:32:00 Test Item Value Reference Range Interpretation Comments PARTIAL THROMBOPLASTIN TIME 92.9 seconds 22.5-36.0 H (HAYDEN) (test code = 760) U/S, RENAL, [id number] 10:05:00Reason for exam:->akiFINAL REPORT Comparison: CT of [...] MDReport Verified Date/Time: 12/25/2019 10:05:41 Reading Location: [address] Transitional Reading Room US renal [id number] 10:05:00Interface, External Ris In - 12/25/2019 10:07 [...] MDReport Verified Date/Time: 12/25/2019 10:05:41 Reading Location: [address] Transitional [facility] 07:22[facility]00 Test Item Value Reference Range Interpretation Comments MAGNESIUM (BEAKER) 2.4 mg/dL 1.6-2.6 Specimen slightly (test code = 627) hemolyzed Enterprise Software Developer ID - JEN [id number] 07:22:00 Test Item Value Reference Range Interpretation Comments PHOSPHORUS (BEAKER) 3.9 mg/dL 2.3-4.7 Specimen slightly (test code = 604) hemolyzed Enterprise Software Developer ID - JEN CCOMPREHENSIVE METABOLIC [id number] 07:22:00 Test Item Value Reference Range Interpretation [...] S NOT APPLICABLE FOR DIALYSIS PATIEN TS. Enterprise Software Developer ID - JEN CPOCT-GLUCOSE [id number] 06:58:00 Test Item Value Reference Range Interpretation Comments POC-GLUCOSE METER 179 mg/dL 70-110 H : TESTED A T [facility] [address] (BEAKER) (test code = [place], 1538) [address]: Enterprise Software Developer/Techni lars ID = [id number] for NAZARIO KIRBY RAD, CHEST, 1 VIEW, NON [id number] 06:12:00Reason for exam:- >intubationShould this be performed [...] MDReport Verified Date/Time: 12/25/2019 06:12:41 Complement Component [id number] 05:28:00 Test Item Value Reference Range Interpretation Comments C4 Complement (test code = 28 mg/dL 15-57 51916-7) DMITRIY (test code = DMITRIY) Enterprise Software Developer ID - ADAMARIS M Lab Interpretation (test Normal code = 89194-7) [facility] ValleyComplement Component [id number] 05:28:00 Test Item Value Reference Range Interpretation Comments C3 Complement (test code = 142 mg/dL 82-193 4487-5) DMITRIY (test code = DMITRIY) Enterprise Software Developer ID - ADAMARIS M Lab Interpretation (test Normal code = 48783-2) [facility] ValleyCOMPLEMENT COMPONENT [id number] 05:28:00 Test Item Value Reference Range Interpretation Comments C4 COMPLEMENT (BEAKER) (test code = 28 mg/dL 15-57 394) Enterprise Software Developer ID - ADAMARIS MCOMPLEMENT COMPONENT [id number] 05:28:00 Test Item Value Reference Range Interpretation Comments C3 COMPLEMENT (BEAKER) (test code = 142 mg/dL 82-193 393) Enterprise Software Developer ID - ADAMARIS MCALCIUM, [id number] 05:24:00 Test Item Value Reference Range Interpretation Comments CALCIUM IONIZED (BEAKER) (test 1.21 mmol/L 1.12-1.27 code = 698) PH, BLOOD (BEAKER) (test code = 7.50 1810) BLOOD GAS, [id number] 05:14:00 Test Item Value Reference Range Interpretation [...] (BEAKER) (test code = 1819) 30.0 % [id number] 05:11:00 Test Item Value Reference Range Interpretation Comments PARTIAL THROMBOPLASTIN TIME 67.7 seconds 22.5-36.0 H (BEAKER) (test code = 760) CBC W/PLT COUNT & AUTO [id number] 05:01:00 Test Item Value Reference Range Interpretation [...] PERCENT (BEAKER) (test code = 2801) POCT-GLUCOSE [id number] 01:26:00 Test Item Value Reference Range Interpretation Comments POC-GLUCOSE METER 150 mg/dL 70-110 H : TESTED A T [facility] 6720 (BEAKER) (test code = PITER Fields [facility], 1538) [address]: Enterprise Software Developer/Techni lars ID = [id number] for LAMIN POSADA POCT-GLUCOSE [id number] 17:58:00 Test Item Value Reference Range Interpretation Comments POC-GLUCOSE METER 166 mg/dL 70-110 H : TESTED A T [facility] 6720 (BEAKER) (test code = [facility], 1538) [address]: Enterprise Software Developer/Techni lars ID = [id number] for LISBET KRAMER EEG AWAKE AND [id number] 17:26:00Reason for exam:->seizuresCHI [facility] REPORT DATE(s) OF TEST: 12/16/2019DATE OF REPORT: 12/16/2019ACC: [id number] time/date: 15:16Stop time/date: 15:37ICD-10: R56.9CPT Code: 80202 HISTORY: 74 year old man with encephalopathy, [...] consider a repeat EEG. PaulC. Marcell M.D., FACFAHAD, FAAN, FAESProfessor of Neurology, [facility] CamarilloDirector, [facility] Ep[facility] CenterSt[facility] Neuro[facility] EEG AWAKE AND [id number] 17:26:00Interface, External Ris In - 12/24/2019 5:26 PM [facility] EEG REPORT DATE(s) OF TEST: 12/16/2019DATE OF REPORT: 12/16/2019ACC: [id number] time/date: 15:16Stop time/date: 15:37ICD-10: R56.9CPT Code: 34758 HISTORY: 74 year old man with encephalopathy, [...] Stanley Jean-Baptiste M.D., FACNS, FAAN, FAESProfessor ofNeurology, [facility]arilloDirector, [facility] Epilepsy [facility]ah [facility] Neurophysiology Lab [facility] CenterCREATINE KINASE (CK)2019-12-24 12:26:00 Test Item Value Reference Range Interpretation Comments CREATINE KINASE TOTAL (BEAKER) (test 13 U/L 29-200 L code = 380) Enterprise Software Developer ID - PIAYA LPOCT-GLUCOSE [id number] 12:11:00 Test Item Value Reference Range Interpretation Comments POC-GLUCOSE METER 155 mg/dL 70-110 H : TESTED A T [facility] 6720 (BEAKER) (test code = PITER Fields [facility], 1538) [address]: Enterprise Software Developer/Techni lars ID = [id number] for LISBET KRAMER RAD, CHEST, 1 VIEW, NON [id number] 10:12:00Reason for exam:- >intubationShould this be performed [...] seen in the spine. Signed: Erika Patel Verified Date/Time: 12/24/2019 10:12:54 Reading Location: [address] Reading Room BASIC METABOLIC [id number] 09:59:00 Test Item Value Reference Range Interpretation [...] S NOT APPLICABLE FOR DIALYSIS PATIEN TS. Enterprise Software Developer ID - PIAYA LBLOOD GAS, [id number] 08:25:00 Test Item Value Reference Range Interpretation [...] (test code = 1819) 45.0 % POCT-GLUCOSE [id number] 06:32:00 Test Item Value Reference Range Interpretation Comments POC-GLUCOSE METER 186 mg/dL 70-110 H : TESTED A T [facility] [address] (BEAKER) (test code = [place], 1538) [address]: Enterprise Software Developer/Techni lars ID = [id number] for Co bb, [employer] [id number] 03:57:00 Test Item Value Reference Range Interpretation Comments MAGNESIUM (BEAKER) 2.3 mg/dL 1.6-2.6 Specimen slightly (test code = 627) hemolyzed Enterprise Software Developer ID Jorge AWAN LBASIC METABOLIC [id number] 03:57:00 Test Item Value Reference Range Interpretation [...] S NOT APPLICABLE FOR DIALYSIS PATIEN TS. Enterprise Software Developer ID Jorge AWAN LLactic Acid, [id number] 03:44:00 Test Item Value Reference Range Interpretation Comments Lactate, Art (test code = 1.9 mmol/L 0.5-2.2 4) DMITRIY (test code = DMITRIY) Enterprise Software Developer ID - LV L Lab Interpretation (test Normal code = 83801-9) [facility] AreaLACTIC ACID, [id number] 03:44:00 Test Item Value Reference Range Interpretation Comments LACTATE BLOOD ARTERIAL (2) 1.9 mmol/L 0.5-2.2 (BEAKER) (test code = 2874) Enterprise Software Developer ID Jorge AWAN LCBC W/PLT COUNT & AUTO [id number] 03:40:00 Test Item Value Reference Range Interpretation [...] 0-1 PERCENT (BEAKER) (test code = 2801) [id number] 02:59:00 Test Item Value Reference Range Interpretation Comments PARTIAL THROMBOPLASTIN TIME 88.1 seconds 22.5-36.0 H (BEAKER) (test code = 760) POCT-GLUCOSE [id number] 00:23:00 Test Item Value Reference Range Interpretation Comments POC-GLUCOSE METER 219 mg/dL 70-110 H : TESTED A T [facility] [address] (HAYDEN) (test code = [place], 1538) [address]: Enterprise Software Developer/Techni lars ID = [id number] for Co Genesis carson [id number] 20:07:00 Test Item Value Reference Range Interpretation Comments PARTIAL THROMBOPLASTIN TIME 70.4 seconds 22.5-36.0 H (BEAKER) (test code = 760) PET/CT, WHOLE BODY [id number] 19:37:00FINAL REPORT PROCEDURE: FDG PET/CT for inflammation CPT CODE: 57997 INDICATION: FDG PET/CT was obtained localize persistent [...] Date/Time: 12/23/2019 19:37:11 NM PET/CT Whole Body [id number] 19:37:00Interface, External Ris In - 12/23/2019 7:39 PM CSTFINAL REPORT PROCEDURE: FDG PET/CT for inflammation CPT CODE: 78815 INDICATION: FDG PET/CT was obtained localize persistent [...] Susan Craig MDReport Verified Date/Time: 12/23/2019 19:37:11 [facility] CenterPOCT- GLUCOSE [id number] 18:31:00 Test Item Value Reference Range Interpretation Comments POC-GLUCOSE METER 158 mg/dL 70-110 H : TESTED A T [facility] 6720 (BEAKER) (test code = [place], 1538) [address]: Enterprise Software Developer/Techni lars ID = [id number] for LUCY HENDRIX Respiratory Panel [id number] 18:28:00 Test Item Value Reference Range Interpretation Comments Human Metapneumovirus Not detected Not detected, (test code = 72013-2) Equivocal Rhinovirus (test code = Not detected Not detected, 55238-6) Equivocal INFLUENZA A (NO Not detected Not detected, SUBTYPE) (test code = Equivocal 31767-2) Influenza A subtype H1 (test code = 68503-3) Influenza A Subtype H3 (test code = 84116-7) Influenza A Subtype H1-2009 (test code = 49811-1) Influenza B (test code Not detected Not detected, = 78170-1) Equivocal Respiratory Syncytial Not detected Not detected, Virus (test code = Equivocal 52344-7) Parainfluenza Virus 1 Not detected Not detected, (test code = 05444-1) Equivocal Parainfluenza Virus 2 Not detected Not detected, (test code = 03109-9) Equivocal Parainfluenza virus 3 Not detected Not detected, (test code = 53121-2) Equivocal Parainfluenza Virus 4 Not detected Not detected, (test code = 84229-7) Equivocal Adenovirus (test code = Not detected Not detected, 03336-7) Equivocal Coronavirus 229E (test Not detected Not detected, code = 09672-3) Equivocal Coronavirus HKU1 (test Not detected Not detected, code = 05039-6) Equivocal Coronavirus NL63 (test Not detected Not detected, code = 73783-3) Equivocal Coronavirus OC43 (test Not detected Not detected, code = 27615-6) Equivocal Bordetella Pertussis Not detected Not detected, (test code = 53447-4) Equivocal Chlamydophila Not detected Not detected, Pneumoniae (test code = Equivocal 95987-7) Mycoplasma Pneumoniae Not detected Not detected, (test code = 36293-9) Equivocal DMITRIY (test code = DMITRIY) Other viruses and bacteria not targeted by this PCR panel cannot be excluded; therefore clinical correlation and follow up of serology, culture results, and other molecular studies is required. The results are not intended to be used as the sole means for clinical diagnosis or patient management decisions. This sample was tested at the [facility] Molecular Diagnostics Laboratory using the [employer] Respiratory Panel. It is FDA cleared and has been verified and approved by the [facility]ostics [facility] for clinical use on nasopharyngeal swab specimens. The performance of the FilmArray RP has not been established in individuals who received influenza vaccine. Recent administration of a nasal influenza vaccine may cause false positive results for Influenza A and/orInfluenza B. [facility] ValleyRESPIRATORY PANEL [id number] 18:28:00 Test Item Value Reference Range Interpretation [...] decisions. This sample was tested at the [facility] Molecular Diagnostics Laboratory using the [employer] FilmArray Respiratory Panel. It is FDA cleared and has been verified and approved by the [facility] Molecular Diagnostics [facility] for clinical use on nasopharyngeal swab specimens.The performance of the FilmArrayRP has not been established in individuals who received influenza vaccine. Recent administration ofa nasal influenza vaccine may cause false positive results for Influenza A and/orInfluenza B.POCT-GLUCOSE [id number] 15:39:00 Test Item Value Reference Range Interpretation Comments POC-GLUCOSE METER 169 mg/dL 70-110 H : Notified RN/MD: (HAYDEN) (test code = TESTED AT [facility] 67[address] 1538) [facility], [address]: Enterprise Software Developer/Techni lars ID = [id number] for RAHEL SALMON [id number] 14:46:00 Test Item Value Reference Range Interpretation Comments Cortisol, Total (test code 22.9 ug/dL 3.7-19.4 H = 2755) DMITRIY (test code = DMITRIY) Enterprise Software Developer ID - KARL [place] Lab Interpretation (test Abnormal code = 27722-5) [facility] ValleyCORTISOL2020-02-27 14:46:00 Test Item Value Reference Range Interpretation Comments CORTISOL, TOTAL (BEAKER) (test 22.9 ug/dL 3.7-19.4 H code = 2755) Enterprise Software Developer ID - KARL MPOCT-GLUCOSE [id number] 14:29:00 Test Item Value Reference Range Interpretation Comments POC-GLUCOSE METER 153 mg/dL 70-110 H : TESTED A T [facility] 6720 (BEAKER) (test code = [place], 1538) [address]: Enterprise Software Developer/Techni lars ID = [id number] for PA LMA, BLAIRE [id number] 14:27:00 Test Item Value Reference Range Interpretation Comments PARTIAL THROMBOPLASTIN TIME 34.9 seconds 22.5-36.0 (BEAKER) (test code = 760) LACTIC ACID, [id number] 14:25:00 Test Item Value Reference Range Interpretation Comments LACTATE BLOOD ARTERIAL (2) 1.8 mmol/L 0.5-2.2 (BEAKER) (test code = 2874) Enterprise Software Developer ID - IBAN FHEMOGLOBIN AND [id number] 14:10:00 Test Item Value Reference Range Interpretation Comments HEMOGLOBIN (BEAKER) (test code = 8.2 GM/DL 13.7-17.5 L 410) HEMATOCRIT (BEAKER) (test code = 25.7 % 40.1-51.0 L 411) Enterprise Software Developer ID - [id number] GAS, [id number] 14:04:00 Test Item Value Reference Range Interpretation [...] (BEAKER) (test code = 1819) 45.0 % [id number] 13:21:00 Test Item Value Reference Range Interpretation Comments MAGNESIUM (BEAKER) 2.2 mg/dL 1.6-2.6 Specimen slightly (test code = 627) hemolyzed Enterprise Software Developer ID - KARL MBASIC METABOLIC [id number] 13:21:00 Test Item Value Reference Range Interpretation [...] S NOT APPLICABLE FOR DIALYSIS PATIEN TS. Enterprise Software Developer ID - KARL MBLOOD [id number] 13:07:00 Test Item Value Reference Range Interpretation [...] for additional information.CBC W/PLT COUNT & AUTO [id number] 11:03:00 Test Item Value Reference Range Interpretation [...] 0-1 PERCENT (BEAKER) (test code = 2801) [id number] 11:03:00 Test Item Value Reference Range Interpretation Comments PARTIAL THROMBOPLASTIN TIME 147.2 seconds 22.5-36.0 H (BEAKER) (test code = 760) Urinalysis w/Microscopic + Reflex to [id number] 10:00:00 Test Item Value Reference Range Interpretation Comments Color, UA (test code = Yellow 5778-6) Clarity, UA (test code = Clear 5767-9) Specific [place], UA 1.024 1.001-1.035 (test code = 5811-5) pH, UA (test code = 5.5 5.0-8.0 5803-2) Protein, UA (test code = 20 mg/dL Negative A 29687-7) Glucose, UA (test code = Negative Negative 365) Ketones, UA (test code = Negative Negative 2514-8) Bilirubin, UA (test code Negative Negative = 32873-5) Blood, UA (test code = Trace Negative A 55440-0) Nitrite, UA (test code = Negative Negative 5802-4) Leukocytes, UA (test code Negative Negative = 5799-2) Urobilinogen, UA (test 4.0 mg/dL 0.2-1 H code = 46505-1) RBC, UA (test code = 5 /HPF 64792-9) WBC, UA (test code = 2 /HPF 5821-4) Bacteria, UA (test code = Occasional 24930-4) Mucus (test code = Occasional 8247-9) Hyaline Casts, UA (test 1 /LPF code = 43379-9) Specimen Source (test code = 2795) DMITRIY (test code = DMITRIY) Enterprise Software Developer ID - [auto]Enterprise Software Developer ID - tech Lab Interpretation (test Abnormal code = 93294-0) [facility] ValleyURINALYSIS W/ REFLEX URINE [id number] 10:00:00 Test Item Value Reference Range Interpretation [...] = 514) SOURCE(BEAKER) (test code = 2795) Enterprise Software Developer ID - [auto]Enterprise Software Developer ID - techPOCT-GLUCOSE [id number] 09:32:00 Test Item Value Reference Range Interpretation Comments POC-GLUCOSE METER 181 mg/dL 70-110 H : TESTED A T [facility] 6720 (BEAKER) (test code = [facility], 1538) [address]: Enterprise Software Developer/Techni lars ID = [id number] for Co bb, [employer] POCT-GLUCOSE [id number] 09:27:00 Test Item Value Reference Range Interpretation Comments POC-GLUCOSE METER 151 mg/dL 70-110 H : TESTED A T [facility] 6720 (BEAKER) (test code = [facility], 1538) [address]: Enterprise Software Developer/Techni lars ID = [id number] for LAMIN POSADA BLOOD GAS, [id number] 05:53:00 Test Item Value Reference Range Interpretation [...] (BEAKER) (test code = 1819) 45.0 % [id number] 03:27:00 Test Item Value Reference Range Interpretation Comments PARTIAL THROMBOPLASTIN TIME 119.7 seconds 22.5-36.0 H (BEAKER) (test code = 760) [id number] 03:01:00 Test Item Value Reference Range Interpretation Comments MAGNESIUM (BEAKER) (test code = 2.4 mg/dL 1.6-2.6 627) Enterprise Software Developer ID - PIAYA LBASIC METABOLIC [id number] 03:01:00 Test Item Value Reference Range Interpretation [...] S NOT APPLICABLE FOR DIALYSIS PATIEN TS. Enterprise Software Developer ID - PIAYA LCBC W/PLT COUNT & AUTO [id number] 02:53:00 Test Item Value Reference Range Interpretation [...] (BEAKER) (test code = 2801) BLOOD GAS, [id number] 02:45:00 Test Item Value Reference Range Interpretation [...] 60.0 % RAD, CHEST, 1 VIEW, NON [id number] 02:01:00Reason for exam:->sobShould this be performed at [...] Stable contours. Additional findings: None. Signed: Iraida Helney [facility] Verified Date/Time: 12/23/2019 02:01:11 BLOOD GAS, [id number] 01:19:00 Test Item Value Reference Range Interpretation [...] (test code = 1819) 21.0 % POCT-GLUCOSE [id number] 23:42:00 Test Item Value Reference Range Interpretation Comments POC-GLUCOSE METER 135 mg/dL 70-110 H : TESTED A T [facility] 6720 ([employer]) (test code = PITER Fields [facility], 1538) [address]: Enterprise Software Developer/Techni lars ID = [id number] for Co [employer] carson [id number] 18:51:00 Test Item Value Reference Range Interpretation Comments POTASSIUM (BEAKER) 4.1 meq/L 3.5-5.1 Specimen slightly (test code = 379) hemolyzed Enterprise Software Developer ID - [id number] 18:44:00 Test Item Value Reference Range Interpretation Comments PARTIAL THROMBOPLASTIN TIME 50.0 seconds 22.5-36.0 H (BEAKER) (test code = 760) POCT-GLUCOSE [id number] 18:32:00 Test Item Value Reference Range Interpretation Comments POC-GLUCOSE METER 147 mg/dL 70-110 H : TESTED A T [facility] 6720 ([place]) (test code = PITER Fields [facility], 1538) 85686: Enterprise Software Developer/Techni lars ID = [id number] for PE BECKI CRISTIN RAD, ABDOMEN/KUB, 1 VIEW [id number] 16:39:00Reason for exam:->tube placementShould this be performed at the bedside?->YesFINAL REPORT Abdomen date 12/22/2019 Comment: Frontal view of the abdomen demo nstrates a nasogastric tube present with tip noted in the body of the stomach. Signed: Edilberto Gregory MDReport Verified Date/Time: 12/22/2019 16:39:35 Reading Location: [facility] C0[facility] Consult Reading Room XR abdomen / KUB 1 [id number] 16:39:00 Interface, External Ris In - 12/22/2019 4:41 PM CSTFINAL REPORT Abdomen date12/22/2019 Comment: Frontal view of the abdomen demonstrates a nasogastric tube present with tip noted in the body of the stomach. Signed: Edilberto Gregory MDReport Verified Date/Time: 12/22/2019 16:39:35 R abraham Location: [facility] C013W Consult Reading Room Electronically signed by: EDILBERTO GREGORY M.D.on 12/22/2019 04:39 [facility] [id number] 12:48:00 Test Item Value Reference Range Interpretation Comments POC-GLUCOSE METER 141 mg/dL 70-110 H : TESTED A T [facility] 6720 (BEAKER) (test code = PITER [place], 1538) [address]: Enterprise Software Developer/Techni lars ID = [id number] for AG ELVIRARNOMANA [id number] 12:34:00 Test Item Value Reference Range Interpretation Comments MAGNESIUM (BEAKER) 2.3 mg/dL 1.6-2.6 Specimen slightly (test code = 627) hemolyzed Enterprise Software Developer ID - [id number] 12:34:00 Test Item Value Reference Range Interpretation Comments POTASSIUM (BEAKER) 3.6 meq/L 3.5-5.1 Specimen slightly (test code = 379) hemolyzed Enterprise Software Developer ID - [id number] 12:24:00 Test Item Value Reference Range Interpretation Comments PARTIAL THROMBOPLASTIN TIME 45.8 seconds 22.5-36.0 H (BEAKER) (test code = 760) Protein, body [id number] 12:20:00 Test Item Value Reference Range Interpretation Comments Protein, Fluid (test 2.3 g/dL code = 2881-1) DMITRIY (test code = Absence of reference DMITRIY) range indicates that normals have not been defined.Assay performance has not been validated for this type of specimen. [facility] ValleyB-TYPE NATRIURETIC FACTOR (BNP)2019-12-22 10:25:00 Test Item Value Reference Range Interpretation Comments B-TYPE NATRIURETIC PEPTIDE (BEAKER) 632 pg/mL 0-100 H (test code = 700) Enterprise Software Developer ID - DBBLOOD GAS, [id number] 10:04:00 Test Item Value Reference Range Interpretation [...] (test code = 1819) 30.0 % BLOOD [id number] 10:03:00 Test Item Value Reference Range Interpretation [...] gram positive cocci in clusters Blood Culture Panel([employer])2019-12-22 10:00:00 Test Item Value Reference Interpretation Comments Range LISTERIA MONOCYTOGENES Not detected Not detected (test code = 10777-2) STAPHYLOCOCCUS (test Detected Not detected A Coagula se negative code = 16072-2) Staph specie s (CoNS)- methici llin susceptibleFirs t-li ne therapy: Cefazolin or Oxacillin (Oxacillin preferred if CN S involvement) Me cA NOT DETECTEDPossibl e contamination. The likelihood of pathogenicity i s increased if th e organism is observed in multiple blood cultures obtain ed from separate venipunctures.R efer ence Range: Not Detected STAPHYLOCOCCUS AUREUS Not detected Not detected (test code = 30374-7) Streptococcus (test Not detected Not detected code = 25478-9) STREPTOCOCCUS Not detected Not detected AGALACTIAE (GROUP B) (test code = 92029-3) STREPTOCOCCUS Not detected Not detected PNEUMONIAE (test code = 20105-2) Streptococcus pyogenes Not detected Not detected (Group A) (test code = 72330-9) ACINETOBACTER Not detected Not detected BAUMANNII (test code = 58073-1) HAEMOPHILUS INFLUENZAE Not detected Not detected (test code = 28835-8) NEISSERIA MENINGITIDIS Not detected Not detected (test code = 09313-3) ENTEROBACTERIACEAE (test code = 50566-0) ENTEROBACTER CLOACOE Not detected Not detected COMPLEX (test code = 62985-3) KLEBSIELLA OXYTOCA Not detected Not detected (test code = 13076-2) KLEBSIELLA PNEUMONIAE Not detected Not detected (test code = 81632-0) PROTEUS (test code = 68591-1) SERRATIA MARCESCENS Not detected Not detected (test code = 53686-4) JAMAL ALBICANS (test Not detected Not detected code = 47149-4) JAMAL GLABRATA (test Not detected Not detected code = 16113-7) JAMAL KRUSEI (test Not detected Not detected code = 93733-4) JAMAL PARAPSILOSIS Not detected Not detected (test code = 82105-1) JAMAL TROPICALIS Not detected Not detected (test code = 92747-6) ESCHERICHIA COLI (test Not detected Not detected code = 80102-2) METHICILLIN-RESISTANCE Not detected Not detected GENE (test code = 49207-7) VANCOMYCIN-RESISTANCE GENE (test code = 52706-3) CARBAPENEM-RESISTANCE GENE (test code = 23038-1) ENTEROCOCCUS (test Not detected Not detected code = 70193-6) PSEUDOMONAS AERUGINOSA Not detected Not detected (test code = 80319-8) DMITRIY (test code = DMITRIY) Other bacteria and resistance markers not targeted by this PCR panel cannot be excluded; therefore clinical correlation and follow up of serology, culture results, and other molecular studies is required. The results are not intended to be used as the sole means for clinical diagnosis or patient management decisions. This sample was tested at the [facility] Molecular Diagnostics Laboratory using the [employer] Blood Culture ID Panel. It is FDA cleared and has been verified and approved by the [facility] for clinical use. This laboratory is CLIA-certified and [employer] (CAP)-accredited to perform high complexity testing. Lab Interpretation Abnormal (test code = 52665-4) [facility] ValleyBLOOD CULTURE IDENTIFICATION [id number] 10:00:00 Test Item Value Reference Interpretation Comments Range LISTERIA MONOCYTOGENES Not detected Not detected (test code = 3960630) STAPHYLOCOCCUS (test Detected Not detected A Coagula se negative code = 20161001) Staph specie s (CoNS)- methici llin susceptibleFirs t-seble e therapy: Cefa zolin or Oxacillin (Oxacillin pref erred if SANDWICH BOARD CARRIER involvem ent) MecA NOT DETECTEDPossibl e contamination. The likelihood of pathogenicity i s increased if th e organism is obs erved in multiple blo od cultures obtain ed from separate venipunctures.R efere nce Range: Not Detected STAPHYLOCOCCUS AUREUS Not detected Not detected (test code = 2685553) STREPTOCOCCUS (test Not detected Not detected code = 4689960) STREPTOCOCCUS Not detected Not detected AGALACTIAE (GROUP B) (test code = 1320687) STREPTOCOCCUS Not detected Not detected PNEUMONIAE (test code = 7466672) STREPTOCOCCUS PYOGENES Not detected Not detected (GROUP A) (test code = 8844571) ACINETOBACTER BAUMANNII Not detected Not detected (test code = 4334646) HAEMOPHILUS INFLUENZAE Not detected Not detected (test code = 8203976) NEISSERIA MENINGITIDIS Not detected Not detected (test code = 3137973) ENTEROBACTERIACEAE (test code = 3532103) ENTEROBACTER CLOACOE Not detected Not detected COMPLEX (test code = 2051026) KLEBSIELLA OXYTOCA Not detected Not detected (test code = 5892722) KLEBSIELLA PNEUMONIAE Not detected Not detected (test code = 1650) PROTEUS (test code = 2917255) SERRATIA MARCESCENS Not detected Not detected (test code = 3622052) JAMAL ALBICANS (test Not detected Not detected code = 9162617) JAMAL GLABRATA (test Not detected Not detected code = 4923532) JAMAL KRUSEI (test Not detected Not detected code = 2861528) JAMAL PARAPSILOSIS Not detected Not detected (test code = 7693613) JAMAL TROPICALIS Not detected Not detected (test code = 8778894) ESCHERICHIA COLI (test Not detected Not detected code = 4063028) METHICILLIN-RESISTANCE Not detected Not detected GENE (test code = 2087875) VANCOMYCIN-RESISTANCE GENE (test code = 3770249) CARBAPENEM-RESISTANCE GENE (test code = 5467069) ENTEROCOCCUS-BEAKER Not detected Not detected (test code = 0279366) PSEUDOMONAS Not detected Not detected AERUGINOSA-BEAKER (test code = 2599919) Other bacteria and resistance markers not targeted by this PCR panel cannot be excluded; therefore clinical correlation and follow up of serology, culture results, and other molecular studies is required. The results are not intended to be used as the sole means for clinical diagnosis or patient management decisions. This sample was tested at the [facility] Molecular Diagnostics Laboratory using the [employer] Blood Culture ID Panel. It is FDA cleared and has been verified and approved by the [facility] Molecular Diagnostics Laboratory for clinical [...] ed only after consultat ion with the [facility] microbiology laboratory.Refe r to previous cultur e of* - Staphylococcus lugdunensis GRAM STAIN From aerobic and RESULT (BEAKER) anaerobic (test code = bottles: gram 1123) positive cocci in clusters RAD, CHEST, 1 VIEW, NON [id number] 08:26:00Reason for exam:->sobShould this be performed at the bedside?->YesFINAL REPORT RAD, CHEST, 1 VIEW, NON DEPT INDICATION: sob COMPARISON: Prior day's exam FINDINGS: Portable frontal view of the chest. IMPRESSION: Support Lines: Stable. Lungs and pleura: Unchanged airspace opacities. No pneumothorax.Heart and mediastinum: Stable contours. Stable pacer apparatus.Additional findings: None. Signed: JR Leblanc Robert MDReport Verified Date/Time: 12/22/2019 08:26:26 Reading Location: [facility] Radiology Reading Room APTT 2019-12-22 08:18:00 Test Item Value Reference Range Interpretation Comments PARTIAL THROMBOPLASTIN TIME 102.7 seconds 22.5-36.0 H (BEAKER) (test code = 760) HEMOGLOBIN AND [id number] 08:01:00 Test Item Value Reference Range Interpretation Comments HEMOGLOBIN (BEAKER) (test code = 7.8 GM/DL 13.7-17.5 L 410) HEMATOCRIT (BEAKER) (test code = 24.5 % 40.1-51.0 L 411) Enterprise Software Developer ID - [id number] 06:31:00 Test Item Value Reference Range Interpretation Comments PARTIAL THROMBOPLASTIN TIME 95.3 seconds 22.5-36.0 H (BEAKER) (test code = 760) POCT-GLUCOSE [id number] 06:22:00 Test Item Value Reference Range Interpretation Comments POC-GLUCOSE METER 144 mg/dL 70-110 H : TESTED A T [facility] 6720 (BEAKER) (test code = [place], 1538) [address]: Enterprise Software Developer/Techni lars ID = [id number] for Co bb, [employer] [id number] 06:06:00 Test Item Value Reference Range Interpretation Comments MAGNESIUM (BEAKER) 2.2 mg/dL 1.6-2.6 Specimen slightly (test code = 627) hemolyzed Enterprise Software Developer ID - ADAMARIS MBASIC METABOLIC [id number] 06:06:00 Test Item Value Reference Range Interpretation [...] S NOT APPLICABLE FOR DIALYSIS PATIEN TS. Enterprise Software Developer ID - ADAMARIS MCBC W/PLT COUNT & AUTO [id number] 04:09:00 Test Item Value Reference Range Interpretation [...] PERCENT (BEAKER) (test code = 2801) POCT-GLUCOSE [id number] 00:13:00 Test Item Value Reference Range Interpretation Comments POC-GLUCOSE METER 122 mg/dL 70-110 H : TESTED A T [facility] 6720 (BEAKER) (test code = PITER Fields [facility], 1538) 10681: Enterprise Software Developer/Techni lars ID = [id number] for Co bb, [employer] [id number] 23:33:00 Test Item Value Reference Range Interpretation Comments PARTIAL THROMBOPLASTIN TIME 68.4 seconds 22.5-36.0 H (BEAKER) (test code = 760) U/S, [id number] 19:46:00Laterality?->LeftReason for exam:- >Diagnostic samplingLabs to be Ordered:->Body Fluid Culture (w/Gram Stain, C\\T\\S)Body fluid cell countLabs to be Ordered:->Glucose+LDH+ProteinLabs to be Ordered:->Other (please add comment)Labs to be Ordered:->Fungal Culture FINAL REPORT Exam: Ultrasound guided thoracentesis Clinical History: Left-sided Pleural Effusion Porcelain Enameler: Cassidy Parra PA-C Supervising Physician: Luis Miguel [...] guided left-sided thoracentesis. Signed: Luis Miguel Glover MDRammonort Verified Date/Time: 12/21/2019 19:46:02 Reading Location: [address] Ultrasound Reading Room BODY FLUID CELL COUNT WITH [id number] 19:01:00 Test Item Value Reference Range Interpretation Comments APPEARANCE FLUID (BEAKER) Bloody Clear A (test code = 510) COLOR FLUID (BEAKER) (test Red Colorless, Straw A code = 511) RBC FLUID (BEAKER) (test code 535600 /cu mm <=1 H = 513) ADJUSTED [...] (BEAKER) EDTA Tube (test code = 2873) [id number] 17:13:00 Test Item Value Reference Range Interpretation [...] mechanical heart valves.RAD, CHEST, 1 VIEW, NON [id number] 16:16:00Reason for exam:->post left sided thoracentesisShould this [...] MDReport Verified Date/Time: 12/21/2019 16:16:44 Reading Location: [facility] Radiology Reading Room Anaerobic [id number] 16:14:00 Test Item Value Reference Range Interpretation Comments Result (test code = No anaerobes isolated 6463-4) [facility] ValleyANAEROBIC [id number] 16:14:00 Test Item Value Reference Range Interpretation Comments CULTURE (BEAKER) (test No anaerobes isolated code = 1095) Prothrombin time/[id number] 12:46:00 Test Item Value Reference Range Interpretation [...] valves. Lab Interpretation Abnormal (test code = 93772-2) [facility] ValleyPROTHROMBIN TIME/[id number] 12:46:00 Test Item Value Reference Range Interpretation [...] is2.5-3.5 for patients wiht mechanical heart valves.POCT-GLUCOSE [id number] 12:38:00 Test Item Value Reference Range Interpretation Comments POC-GLUCOSE METER 138 mg/dL 70-110 H : TESTED A T [facility] 6720 (BEAKER) (test code = PITER Fields [facility], 1538) [address]: Enterprise Software Developer/Techni lars ID = [id number] for CAROL ANN OSEGUERA PT/[id number] 11:10:00 Test Item Value Reference Range Interpretation [...] mechanical heart valves.SURGICALLY OBTAINED CULTURE + GRAM [id number] 08:57:00 Test Item Value Reference Interpretation Comments Range CULTURE (BEAKER) STAPHYLOCOCCUS A 1+ Staphy lococcus (test code = 1095) SHONAIS shona is Clindamycin (test R code = 10) [...] (test code = cocci in pairs and 728646) clusters CREATINE KINASE (CK)2019-12-21 05:56:00 Test Item Value Reference Range Interpretation Comments CREATINE KINASE TOTAL (BEAKER) (test 18 U/L 29-200 L code = 380) Enterprise Software Developer ID - ADAMARIS [id number] 05:43:00 Test Item Value Reference Range Interpretation Comments MAGNESIUM (BEAKER) 2.3 mg/dL 1.6-2.6 Specimen slightly (test code = 627) hemolyzed Enterprise Software Developer ID - ADAMARIS MBASIC METABOLIC [id number] 05:43:00 Test Item Value Reference Range Interpretation [...] S NOT APPLICABLE FOR DIALYSIS PATIEN TS. Enterprise Software Developer ID - ADAMARIS MCBC W/PLT COUNT & AUTO [id number] 05:17:00 Test Item Value Reference Range Interpretation [...] H PERCENT (BEAKER) (test code = 2801) [id number] 05:16:00 Test Item Value Reference Range Interpretation Comments PARTIAL THROMBOPLASTIN TIME 63.0 seconds 22.5-36.0 H (BEAKER) (test code = 760) POCT-GLUCOSE [id number] 23:39:00 Test Item Value Reference Range Interpretation Comments POC-GLUCOSE METER 162 mg/dL 70-110 H : TESTED A T [facility] 6720 (BEAKER) (test code = [facility], 1538) [address]: Enterprise Software Developer/Techni lars ID = [id number] for MICHELLE MATHIS BLOOD GAS, [id number] 21:17:00 Test Item Value Reference Range Interpretation [...] (test code = 1819) 21.0 % POCT-GLUCOSE [id number] 18:36:00 Test Item Value Reference Range Interpretation Comments POC-GLUCOSE METER 149 mg/dL 70-110 H : TESTED A T [facility] 6720 (BEAKER) (test code = [facility], 1538) [address]3047: Enterprise Software Developer/Techni lars ID = [id number] for AG UILAR, CAROL ANN [id number] 17:13:00 Test Item Value Reference Range Interpretation Comments PARTIAL THROMBOPLASTIN TIME 72.8 seconds 22.5-36.0 H (BEAKER) (test code = 760) POCT-GLUCOSE [id number] 12:29:00 Test Item Value Reference Range Interpretation Comments POC-GLUCOSE METER 179 mg/dL 70-110 H : TESTED A T [facility] 6720 (BEAKER) (test code = [facility], 1538) [address]: Enterprise Software Developer/Techni lars ID = [id number] for AG UILAR, CAROL ANN [id number] 11:15:00 Test Item Value Reference Range Interpretation Comments PARTIAL THROMBOPLASTIN TIME 76.4 seconds 22.5-36.0 H (BEAKER) (test code = 760) BLOOD GAS, [id number] 10:14:00 Test Item Value Reference Range Interpretation [...] (test code = 1819) 21.0 % BLOOD [id number] 09:49:00 Test Item Value Reference Range Interpretation [...] gram 1123) positive cocci in clusters BLOOD [id number] 09:49:00 Test Item Value Reference Range Interpretation [...] gram 1123) positive cocci in clusters POCT-GLUCOSE [id number] 06:19:00 Test Item Value Reference Range Interpretation Comments POC-GLUCOSE METER 202 mg/dL 70-110 H : TESTED A T [facility] 6720 (BEAKER) (test code = [place], 1538) [address]: Enterprise Software Developer/Techni lars ID = [id number] for JOSEPHINE MUSE [id number] 04:33:00 Test Item Value Reference Range Interpretation Comments PARTIAL THROMBOPLASTIN TIME 53.7 seconds 22.5-36.0 H (BEAKER) (test code = 760) [id number] 04:27:00 Test Item Value Reference Range Interpretation Comments MAGNESIUM (BEAKER) (test code = 2.2 mg/dL 1.6-2.6 627) Enterprise Software Developer ID - TRAN WBASIC METABOLIC [id number] 04:27:00 Test Item Value Reference Range Interpretation [...] S NOT APPLICABLE FOR DIALYSIS PATIEN TS. Enterprise Software Developer ID - TRAN WCBC W/PLT COUNT & AUTO [id number] 04:18:00 Test Item Value Reference Range Interpretation [...] PERCENT (BEAKER) (test code = 2801) POCT-GLUCOSE [id number] 23:24:00 Test Item Value Reference Range Interpretation Comments POC-GLUCOSE METER 160 mg/dL 70-110 H : TESTED A T [facility] 67[address] (BEAKER) (test code = [place], 1538) [address]: Enterprise Software Developer/Techni lars ID = [id number] for JOSEPHINE MUSE [id number] 21:10:00 Test Item Value Reference Range Interpretation Comments PARTIAL THROMBOPLASTIN TIME 70.0 seconds 22.5-36.0 H (BEAKER) (test code = 760) [id number] 13:55:00 Test Item Value Reference Range Interpretation Comments PARTIAL THROMBOPLASTIN TIME 70.0 seconds 22.5-36.0 H (BEAKER) (test code = 760) POCT-GLUCOSE [id number] 12:13:00 Test Item Value Reference Range Interpretation Comments POC-GLUCOSE METER 165 mg/dL 70-110 H : TESTED A T [facility] 6720 (BEAKER) (test code [facility], = 1538) 14425: Enterprise Software Developer/Techni lars ID = [id number] for FAHAD SILVA RAD, CHEST, 1 VIEW, NON [id number] 11:54:00Reason for exam:- >tachypneaShould this be performed [...] MDReport Verified Date/Time: 12/19/2019 11:54:30 Reading Location: [address] Neuro Reading Room BLOOD [id number] 11:04:00 Test Item Value Reference Range Interpretation [...] gram 1123) positive cocci in clusters BLOOD [id number] 11:02:00 Test Item Value Reference Range Interpretation [...] bottles: gram 1123) positive cocci in clusters [id number] 07:08:00 Test Item Value Reference Range Interpretation Comments MAGNESIUM (BEAKER) 2.2 mg/dL 1.6-2.6 Specimen slightly (test code = 627) hemolyzed Enterprise Software Developer ID - DBBASIC METABOLIC [id number] 07:08:00 Test Item Value Reference Range Interpretation [...] S NOT APPLICABLE FOR DIALYSIS PATIEN TS. Enterprise Software Developer ID - [id number] 06:41:00 Test Item Value Reference Range Interpretation Comments PARTIAL THROMBOPLASTIN TIME 63.5 seconds 22.5-36.0 H (BEAKER) (test code = 760) CBC W/PLT COUNT & AUTO [id number] 05:29:00 Test Item Value Reference Range Interpretation [...] H PERCENT (BEAKER) (test code = 2801) [id number] 00:50:00 Test Item Value Reference Range Interpretation Comments PARTIAL THROMBOPLASTIN TIME 57.8 seconds 22.5-36.0 H (BEAKER) (test code = 760) [id number] 18:03:00 Test Item Value Reference Range Interpretation Comments MAGNESIUM (BEAKER) 2.1 mg/dL 1.6-2.6 Specimen slightly (test code = 627) hemolyzed Enterprise Software Developer ID - [id number] 18:03:00 Test Item Value Reference Range Interpretation Comments POTASSIUM (BEAKER) 3.9 meq/L 3.5-5.1 Specimen slightly (test code = 379) hemolyzed Enterprise Software Developer ID - [id number] 17:58:00 Test Item Value Reference Range Interpretation Comments PARTIAL THROMBOPLASTIN TIME 50.8 seconds 22.5-36.0 H (BEAKER) (test code = 760) Hemoglobin [id number] 12:53:00 Test Item Value Reference Range Interpretation Comments Hemoglobin A1C (test code = 4548-4) 5.4 % 4.3-6.1 Lab Interpretation (test code = Normal 14843-4) [facility] ValleyHEMOGLOBIN [id number] 12:53:00 Test Item Value Reference Range Interpretation Comments HEMOGLOBIN A1C (BEAKER) (test code = 5.4 % 4.3-6.1 368) [id number] 12:00:00 Test Item Value Reference Range Interpretation Comments POTASSIUM (BEAKER) (test code = 3.1 meq/L 3.5-5.1 L 379) Enterprise Software Developer ID - IBAN [id number] 12:00:00 Test Item Value Reference Range Interpretation Comments MAGNESIUM (BEAKER) (test code = 2.3 mg/dL 1.6-2.6 627) Enterprise Software Developer ID - IBAN FBLOOD [id number] 11:19:00 Test Item Value Reference Range Interpretation Comments CULTURE A From Aerobic An d (BEAKER) (test Anaerobic Bot tles Same code = 1095) organism has be en isolated from cultures(s) of the same body site and collection date . Repeat identifi cation and susceptibil ity testing perform ed only after consultat ion with the [facility] microbiology laboratory.Refe r to previous cultur e of* - Staphylococcus lugdunensis GRAM STAIN From aerobic and RESULT (BEAKER) anaerobic (test code = bottles: gram 1123) positive cocci in clusters BLOOD [id number] 11:17:00 Test Item Value Reference Interpretation Comments [...] bottles: 1123) gram positive cocci in clusters [id number] 10:51:00 Test Item Value Reference Range Interpretation Comments PARTIAL THROMBOPLASTIN TIME 32.0 seconds 22.5-36.0 (BEAKER) (test code = 760) Prior to initiating heparinVenous doppler arm, [id number] 08:45:05Ejection FractionSLE ECHO HEARTLAB MKCKESSON CPACS Left Impression1. 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 Ana Lilia Gregory Interpreting Melony Dyer T [...] measured in cm/s ; Diameters are measuredin [facility] W/PLT COUNT & AUTO [id number] 05:41:00 Test Item Value Reference Range Interpretation [...] H PERCENT (BEAKER) (test code = 2807) [id number] 05:03:00 Test Item Value Reference Range Interpretation Comments MAGNESIUM (BEAKER) 2.1 mg/dL 1.6-2.6 Specimen slightly (test code = 627) hemolyzed Enterprise Software Developer ID - ADAMARIS MBASIC METABOLIC [id number] 05:03:00 Test Item Value Reference Range Interpretation [...] S NOT APPLICABLE FOR DIALYSIS PATIEN TS. Enterprise Software Developer ID - ADAMARIS MVancomycin level, [id number] 19:14:00 Test Item Value Reference Range Interpretation Comments Vancomycin Tr (test code = 4092-3) 10.8 ug/mL 10-20 Lab Interpretation (test code = Normal 69324-6) [facility] ValleyVANCOMYCIN LEVEL, [id number] 19:14:00 Test Item Value Reference Range Interpretation Comments VANCOMYCIN TROUGH (BEAKER) (test 10.8 ug/mL 10.0-20.0 code = 522) CT, CHEST, WITHOUT [id number] 13:42:00FINAL REPORT CT of the Chest, abdomen [...] stones.5. Diverticulosis without diverticulitis. Signed: Edilberto Gregory [facility] Verified Date/Time: 12/17/2019 13:42:11 Reading Location: [facility] C013Y CT Body Reading Room [facility], [id number] 13:42:00FINAL REPORT CT of the Chest, abdomen [...] MDReport Verified Date/Time: 12/17/2019 13:42:11 Reading Location: [address] Body Reading Room CT abdomen/pelvis without iv [id number] 13:42:00Interface, External Ris In - 12/17/2019 2:54 [...] Verified Date/Time: 12/17/2019 13: 42:11 Reading Location: [facility] B1 C013Y CT Body Reading [facility] Xojsrmcfmjvjpa8058-30-41 12:20:59Ejection FractionSLEH ECHO HEARTLAB MKCKESSON CPACSInterface, External Ris In - 12/17/2019 12:21 PM C STTransthoracic Echocardiography Report (TTE) Demographics Patient Name RENE CHAMBERLAIN Date of Study 12/17/2019 Gender Male Visit Number [id number] Race Room Number 6107 Number Date of 1945 Referring Physician Freddie ADAME Age 74 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 Signed: Madeline Casas MDReport Verified Date/Time: 12/17/2019 11:48:34 Reading Location: [address] Neuro Reading [facility] without IV [id number] 11:48:00Interface, External Ris In - 12/17/2019 11:50 [...] Casas Verified Date/Time: 12/17/2019 11:48:34 Reading Location: [facility] C013V Neuro Reading [facility] NON [facility]PT 2019-12-17 10:42:00Reason for exam:->intubationFINAL REPORT CLINICAL HISTORY: intubation TECHNIQUE: 1 view of the chest. COMP ARISON: 12/16/2019 IMPRESSION: An ETT and NGT appear unchanged. Left lung base pleural-parenchymal opacification is unchanged. The cardiomediastinal silhouette is magnified by technique with a pacemaker. Signed: Gil Pastor Verified Date/Time: 12/17/2019 10:42:15 Reading Location: [facility] Radiology Reading Room Urine [id number] 10:21:00 Test Item Value Reference Range Interpretation Comments Result (test code = 6463-4) No growth [facility] ValleyURINE [id number] 10:21:00 Test Item Value Reference Range Interpretation Comments CULTURE (BEAKER) (test code = 1095) No growth [id number] 04:42:00 Test Item Value Reference Range Interpretation Comments Ferritin (test code = 4442 ng/mL 5-275 H 2276-4) DMITRIY (test code = DMITRIY) Enterprise Software Developer ID - ADAMARIS M Lab Interpretation (test Abnormal code = 83132-2) [facility] ValleyFERRITIN2020-02-21 04:42:00 Test Item Value Reference Range Interpretation Comments FERRITIN (BEAKER) (test code = 4442 ng/mL 5-275 H 361) Enterprise Software Developer ID - ADAMARIS MTSH/Free T4 If Anqhzkfrf7524-10-12 04:41:00 Test Item Value Reference Range Interpretation Comments TSH (test code = 56468-1) 0.72 0.35- 4.94 uIU/mL DMITRIY (test code = DMITRIY) Enterprise Software Developer ID - ADAMARIS M Lab Interpretation (test Normal code = 31578-4) [facility] ValleyVitamin B12 and [id number] 04:41:00 Test Item Value Reference Range Interpretation Comments Vitamin B12 (test code = 767 pg/mL 330-299 9715-9) Folate (test code = 5.1 ng/mL >=7.0 L 2284-8) DMITRIY (test code = DMITRIY) Enterprise Software Developer ID - ADAMARIS M Lab Interpretation (test Abnormal code = 04753-2) [place] ValleyTSH/FREE T4 IF [id number] 04:41:00 Test Item Value Reference Range Interpretation Comments THYROID STIMULATING HORMONE 0.72 uIU/mL 0.35-4.94 (BEAKER) (test code = 772) Enterprise Software Developer ID - ADAMARIS MVITAMIN B12 AND [id number] 04:41:00 Test Item Value Reference Range Interpretation Comments VITAMIN B12 (BEAKER) (test code = 767 pg/mL 213-816 774) FOLATE (BEAKER) (test code = 362) 5.1 ng/mL >=7.0 L Enterprise Software Developer ID - ADAMARIS Jamie, TIBC, % sat. (without ferritin)2019-12-17 03:47:00 Test Item Value Reference Range Interpretation Comments Iron (test code = 2498-4) 21.0 ug/dL 40-160 L TIBC (test code = 2500-7) 115 ug/dL 250-450 L Iron % Saturation (test 18 % 20-55 L code = 2502-3) DMITRIY (test code = DMITRIY) Enterprise Software Developer ID - ADAMARIS M Lab Interpretation (test Abnormal code = 18190-9) [place] ValleyIRON, TIBC, % SAT. (WITHOUT FERRITIN)2019-12-17 03:47:00 Test Item Value Reference Range Interpretation Comments IRON (BEAKER) (test code = 547) 21.0 ug/dL 40.0-160.0 L TOTAL IRON BINDING CAPACITY 115 ug/dL 250-450 L (BEAKER) (test code = 769) IRON % SATURATION (2) (BEAKER) 18 % 20-55 L (test code = 2590) Enterprise Software Developer ID - ADAMARIS [id number] 03:46:00 Test Item Value Reference Range Interpretation Comments MAGNESIUM (BEAKER) (test code = 2.1 mg/dL 1.6-2.6 627) Enterprise Software Developer ID - ADAMARIS MBASIC METABOLIC [id number] 03:46:00 Test Item Value Reference Range Interpretation [...] S NOT APPLICABLE FOR DIALYSIS PATIEN TS. Enterprise Software Developer ID - ADAMARIS EPATIC FUNCTION [id number] 03:46:00 Test Item Value Reference Range Interpretation [...] (test code = 15 U/L 6-55 347) Enterprise Software Developer ID - ADAMARIS MCBC W/PLT COUNT & AUTO [id number] 03:46:00 Test Item Value Reference Range Interpretation [...] PERCENT (BEAKER) (test code = 2801) PROTHROMBIN TIME/[id number] 03:35:00 Test Item Value Reference Range Interpretation [...] for patients wiht mechanical heart valves.Lactic acid, mimnny7334-22-05 03:28:00 Test Item Value Reference Range Interpretation Comments Lactate, Venous (test 1.1 mmol/L 0.5-2.2 Specim en code = 2872) slightly hemolyzed DMITRIY (test code = DMITRIY) Enterprise Software Developer ID - ADAMARIS M Lab Interpretation Normal (test code = 76881-8) [facility] ValleyLACTIC ACID, [id number] 03:28:00 Test Item Value Reference Range Interpretation Comments LACTATE BLOOD VENOUS 1.1 mmol/L 0.5-2.2 Specime n slightly (2) (BEAKER) (test hemolyzed code = 2872) Enterprise Software Developer ID - ADAMARIS MReticulocyte [id number] 03:21:00 Test Item Value Reference Range Interpretation Comments % Retic (test code = 2.1 % 0.5-1.8 H 71810-9) DMITRIY (test code = DMITRIY) Enterprise Software Developer ID - [id number] Lab Interpretation (test Abnormal code = 39595-2) [facility] ValleyRETICULOCYTE [id number] 03:21:00 Test Item Value Reference Range Interpretation Comments RETICULOCYTE COUNT PCT (BEAKER) (test 2.1 % 0.5-1.8 H code = 575) Enterprise Software Developer ID - 6000BLOOD GAS, [id number] 03:16:00 Test Item Value Reference Range Interpretation [...] (BEAKER) (test code = 1819) 50.0 % [id number] 00:42:00 Test Item Value Reference Range Interpretation Comments CORTISOL, TOTAL (BEAKER) (test 16.3 ug/dL 3.7-19.4 code = 2755) Enterprise Software Developer ID - BSVANCOMYCIN LEVEL, [id number] 21:12:00 Test Item Value Reference Range Interpretation Comments VANCOMYCIN TROUGH (BEAKER) (test 6.1 ug/mL 10.0-20.0 L code = 522) Enterprise Software Developer ID - NFYBQXTSFGF1387-48-05 21:11:00 Test Item Value Reference Range Interpretation Comments MAGNESIUM (BEAKER) 1.7 mg/dL 1.6-2.6 Specimen slightly (test code = 627) hemolyzed Enterprise Software Developer ID - BSBASIC METABOLIC [id number] 21:11:00 Test Item Value Reference Range Interpretation [...] mg/dL 8.4-10.2 (test code = 697) EGFR (HAYDEN) (test 63 mL/min/1.73 ESTIMA NINA GFR IS code = 1092) sq m NOT ACCURATE CREATININE CLEARANCE IN PREDICTING GLOMERULAR FILTRATION RATE . ESTIMATED GFR I S NOT APPLICABLE FOR DIALYSIS PATIEN TS. Enterprise Software Developer ID - BSPOCT-GLUCOSE [id number] 18:34:00 Test Item Value Reference Range Interpretation Comments POC-GLUCOSE METER 95 mg/dL 70-110 : [facility] ([facility] (test code = [place], 1538) [address]: Enterprise Software Developer/Techni lars ID = [id number] for AKIKO LARCAROL ANN RAD, CHEST, 1 VIEW, NON [id number] 15:48:00Reason for exam:->ett placementShould this be performed [...] MDReport Verified Date/Time: 12/16/2019 15:48:48 Reading Location: [facility] Radiology Reading Room BLOOD CULTURE IDENTIFICATION [id number] 15:32:00 Test Item Value Reference Interpretation Comments Range LISTERIA MONOCYTOGENES Not detected Not detected (test code = 0932911) STAPHYLOCOCCUS (test Detected Not detected A Coagula se negative code = 7208965) Staph specie s (CoNS)- methici llin susceptibleFirs t-seble e therapy: Cefa zolin or Oxacillin (Oxacillin pref erred if SANDWICH BOARD CARRIER involvem ent) MecA NOT DETECTEDPossibl e contamination. The likelihood of pathogenicity i s increased if th e organism is obs erved in multiple blo od cultures obtain ed from separate venipunctures.R efere nce Range: Not Detected STAPHYLOCOCCUS AUREUS Not detected Not detected (test code = 5996087) STREPTOCOCCUS (test Not detected Not detected code = 0462994) STREPTOCOCCUS Not detected Not detected AGALACTIAE (GROUP B) (test code = 3394711) STREPTOCOCCUS Not detected Not detected PNEUMONIAE (test code = 6498119) STREPTOCOCCUS PYOGENES Not detected Not detected (GROUP A) (test code = 4507757) ACINETOBACTER BAUMANNII Not detected Not detected (test code = 5717640) HAEMOPHILUS INFLUENZAE Not detected Not detected (test code = 0039961) NEISSERIA MENINGITIDIS Not detected Not detected (test code = 5817526) ENTEROBACTERIACEAE Not detected Not detected (test code = 5952464) ENTEROBACTER CLOACOE Not detected Not detected COMPLEX (test code = 6501358) KLEBSIELLA OXYTOCA Not detected Not detected (test code = 7081426) KLEBSIELLA PNEUMONIAE Not detected Not detected (test code = 1650) PROTEUS (test code = Not detected Not detected 5659891) SERRATIA MARCESCENS Not detected Not detected (test code = 4578223) JAMAL ALBICANS (test Not detected Not detected code = 5254069) JAMAL GLABRATA (test Not detected Not detected code = 5591714) JAMAL KRUSEI (test Not detected Not detected code = 9216724) JAMAL PARAPSILOSIS Not detected Not detected (test code = 9162514) JAMAL TROPICALIS Not detected Not detected (test code = 0894590) ESCHERICHIA COLI (test Not detected Not detected code = 8665684) METHICILLIN-RESISTANCE Not detected Not detected GENE (test code = 0195701) VANCOMYCIN-RESISTANCE GENE (test code = 9016501) CARBAPENEM-RESISTANCE Not detected Not detected GENE (test code = 2207949) ENTEROCOCCUS-BEAKER Not detected Not detected (test code = 2540563) PSEUDOMONAS Not detected Not detected AERUGINOSA-BEAKER (test code = 5362149) Other bacteria and resistance markers not targeted by this PCR panel cannot be excluded; therefore clinical correlation and follow up of serology, culture results, and other molecular studies is required. The results are not intended to be used as the sole means for clinical diagnosis or patient management decisions. This sample was tested at the [facility] Molecular Diagnostics [facility] using the MocoSpaceArray Blood Culture ID Panel. It is FDA cleared and has been verified and approved by the [facility] for clinical use. This laboratory is CLIA-certified and College ofAmerican Pathologists (CAP)-accredited to perform high complexity testing.PHOSPHORUS 2019-12-16 15:18:00 Test Item Value Reference Range Interpretation Comments PHOSPHORUS (BEAKER) (test code = 4.2 mg/dL 2.3-4.7 604) Enterprise Software Developer ID - BSCOMPREHENSIVE METABOLIC [id number] 15:18:00 Test Item Value Reference Range Interpretation [...] S NOT APPLICABLE FOR DIALYSIS PATIEN TS. Enterprise Software Developer ID - JWXdjaqhd1130-35-79 15:09:00 Test Item Value Reference Range Interpretation Comments Ammonia (test code = 30 18- 72 mol/L 91458-0) DMITRIY (test code = DMITRIY) Enterprise Software Developer ID - BS Lab Interpretation (test Normal code = 75560-1) [facility] ValleyAMMONIA2020-02-20 15:09:00 Test Item Value Reference Range Interpretation Comments AMMONIA (BEAKER) (test code = 348) 30 mol/L 18-72 Enterprise Software Developer ID - BSPT/FZNN0531-22-02 14:58:00 Test Item Value Reference Range Interpretation [...] INR is2.5-3.5 for patients wiht mechanical heart valves.[id number] 14:53:00 Test Item Value Reference Range Interpretation Comments MAGNESIUM (BEAKER) (test code = 1.6 mg/dL 1.6-2.6 627) Enterprise Software Developer ID - BSLACTIC ACID, [id number] 14:46:00 Test Item Value Reference Range Interpretation Comments LACTATE BLOOD ARTERIAL (2) 1.1 mmol/L 0.5-2.2 (BEAKER) (test code = 2874) Enterprise Software Developer ID - BSPROTHROMBIN TIME/[id number] 14:44:00 Test Item Value Reference Range Interpretation [...] for patients wiht mechanical heart valves.HGB/HCT (H&H)-Stat [id number] 14:43:00 Test Item Value Reference Range Interpretation Comments Hemoglobin (test code = 786-4) 10.6 g/dL 13-16.8 L Hematocrit (test code = 4544-3) 31.0 % 40-50 L Lab Interpretation (test code = Abnormal 38115-3) [facility] ValleyGlucose-Stat [id number] 14:43:00 Test Item Value Reference Range Interpretation Comments Glucose (test code = 2345-7) 126 mg/dL 70-110 H Lab Interpretation (test code = Abnormal 82923-4) [facility] [id number] 14:43:00 Test Item Value Reference Range Interpretation Comments Sodium (test code = 2951-2) 134 meq/L 135-148 L Lab Interpretation (test code = Abnormal 30465-4) [facility] ValleyPotassium-Stat [id number] 14:43:00 Test Item Value Reference Range Interpretation Comments Potassium (test code = 2823-3) 3.1 meq/L 3.6-5.5 L Lab Interpretation (test code = Abnormal 77675-7) [facility] ValleyBLOOD GAS, [id number] 14:43:00 Test Item Value Reference Range Interpretation [...] code = 1819) 100.0 % SODIUM NA-STAT [id number] 14:43:00 Test Item Value Reference Range Interpretation Comments SODIUM (BEAKER) (test code = 381) 134 meq/L 135-148 L POTASSIUM-STAT [id number] 14:43:00 Test Item Value Reference Range Interpretation Comments POTASSIUM (BEAKER) (test code = 3.1 meq/L 3.6-5.5 L 379) GLUCOSE-STAT [id number] 14:43:00 Test Item Value Reference Range Interpretation Comments GLUCOSE RANDOM (BEAKER) (test code 126 mg/dL 70-110 H = 652) HGB/HCT (H&H) - STAT [id number] 14:43:00 Test Item Value Reference Range Interpretation [...] CELLS (BEAKER) (test code = 413) CALCIUM, [id number] 14:30:00 Test Item Value Reference Range Interpretation Comments CALCIUM IONIZED (BEAKER) (test 1.22 mmol/L 1.12-1.27 code = 698) PH, BLOOD (BEAKER) (test code = 7.44 1810) BLOOD GAS, [id number] 12:39:00 Test Item Value Reference Range Interpretation [...] code = 1819) 60.0 % SODIUM NA-STAT [id number] 12:39:00 Test Item Value Reference Range Interpretation Comments SODIUM (BEAKER) (test code = 381) 134 meq/L 135-148 L POTASSIUM-STAT [id number] 12:39:00 Test Item Value Reference Range Interpretation Comments POTASSIUM (BEAKER) (test code = 3.3 meq/L 3.6-5.5 L 379) GLUCOSE-STAT [id number] 12:39:00 Test Item Value Reference Range Interpretation Comments GLUCOSE RANDOM (BEAKER) (test code 116 mg/dL 70-110 H = 652) HGB/HCT (H&H) - STAT [id number] 12:39:00 Test Item Value Reference Range Interpretation Comments HEMOGLOBIN (BEAKER) (test code = 10.9 g/dL 13.0-16.8 L 410) HEMATOCRIT (BEAKER) (test code = 32.0 % 40.0-50.0 L 411) PROTHROMBIN TIME/[id number] 11:28:00 Test Item Value Reference Range Interpretation [...] is2.5-3.5 for patients wiht mechanical heart valves.CALCIUM, [id number] 11:03:00 Test Item Value Reference Range Interpretation Comments CALCIUM IONIZED (BEAKER) (test 1.25 mmol/L 1.12-1.27 code = 698) PH, BLOOD (BEAKER) (test code = 7.48 1810) BLOOD GAS, [id number] 11:03:00 Test Item Value Reference Range Interpretation [...] code = 1819) 55.0 % SODIUM NA-STAT [id number] 11:03:00 Test Item Value Reference Range Interpretation Comments SODIUM (BEAKER) (test code = 381) 134 meq/L 135-148 L POTASSIUM-STAT [id number] 11:03:00 Test Item Value Reference Range Interpretation Comments POTASSIUM (BEAKER) (test code = 2.8 meq/L 3.6-5.5 L 379) GLUCOSE-STAT [id number] 11:03:00 Test Item Value Reference Range Interpretation Comments GLUCOSE RANDOM (BEAKER) (test code 115 mg/dL 70-110 H = 652) HGB/HCT (H&H) - STAT [id number] 11:03:00 Test Item Value Reference Range Interpretation Comments HEMOGLOBIN (BEAKER) (test code = 10.6 g/dL 13.0-16.8 L 410) HEMATOCRIT (BEAKER) (test code = 31.0 % 40.0-50.0 L 411) [id number] 08:20:00 Test Item Value Reference Range Interpretation Comments MAGNESIUM (BEAKER) (test code = 1.7 mg/dL 1.6-2.6 627) Enterprise Software Developer ID - GALAPBASIC METABOLIC [id number] 08:20:00 Test Item Value Reference Range Interpretation [...] S NOT APPLICABLE FOR DIALYSIS PATIEN TS. Enterprise Software Developer ID - GALAPSpecimen slightly ictericHEPATIC FUNCTION [id number] 08:20:00 Test Item Value Reference Range Interpretation [...] (test code = 18 U/L 6-55 347) Enterprise Software Developer ID - GALAPSpecimen slightly ictericPROTHROMBIN TIME/[id number] 08:00:00 Test Item Value Reference Range Interpretation [...] is2.5-3.5 for patients wiht mechanical heart valves.POCT-GLUCOSE [id number] 21:37:00 Test Item Value Reference Range Interpretation Comments POC-GLUCOSE METER 179 mg/dL 70-110 H : TESTED A T [facility] 6720 (BEAKER) (test code = [employer] [facility], 1538) [address]80: Enterprise Software Developer/Techni lars ID = [id number] for Lukas ariel Catrachita POCT-GLUCOSE [id number] 17:50:00 Test Item Value Reference Range Interpretation Comments POC-GLUCOSE METER 121 mg/dL 70-110 H : TESTED A T [facility] 6720 (BEAKER) (test code = [facility] [place] [facility], 1538) 33225: Enterprise Software Developer/Techni lasr ID = [id number] for LATISHA WELCH ABORH, [id number] 17:45:00 Test Item Value Reference Range Interpretation Comments ABO Grouping (test code = 2588) O Rh Factor (test code = 2589) POS [facility] ValleyBLOOD GAS, [id number] 17:25:00 Test Item Value Reference Range Interpretation [...] of Study 12/15/2019 Gender Male Visit Number [id number] Race Room Number 1430 Number Date of 1945 Referring Physician Niyah Mojica MD Age 74 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 [facility] 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 Thelma Hatch, Interpreting Doris Gore [facility] Physician Procedure Type of Study TTE procedure:2DECHO W DOPPLER(CW/PW/COLOR) (STAT) Indications:Endocarditis.Clinical HistoryHGB 11.0HCT 31.8 %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 [facility] with change in mental status. Per son, [...] MS Neurophysiol ogy/Epilepsy Attending EEG AWAKE AND [id number] 16:41:00Interface, External Ris In - 12/15/2019 4:41 PM CSTDATE OF TEST: 12/15/19 DATE OF REPORT: 12/15/19 ACC: [id number] Start: 1603 End: 1624 CPT Code: 14388 ICD-10: R56.9 HISTORY: 74 yo male with HTN, HLD,CAD, Obesity, AVN s/p dual ppm 2006 and cardiomyopathy s/p BIV-ICD upgrade in 2014 who was transferred from [facility] for lead extraction. Patient was [facility] to [facility] with change in mental status. Per son, [...] recordings. Primitivo Chowdary MD, MS Neurophysiology/Epilepsy Attending [facility]PO[facility]SE [id number] 14:28:00 Test Item Value Reference Range Interpretation Comments POC-GLUCOSE METER 153 mg/dL 70-110 H : TESTED A T [facility] 6720 (BEAKER) (test code = [facility], 1538) 04758: Enterprise Software Developer/Techni lars ID = [id number] for LATISHA WELCH POCT-GLUCOSE [id number] 08:55:00 Test Item Value Reference Range Interpretation Comments POC-GLUCOSE METER 117 mg/dL 70-110 H : TESTED A T [facility] 6720 (BEAKER) (test code = [facility], 1538) 98089: Enterprise Software Developer/Techni lars ID = [id number] for LATISHA WELCH CBC W/PLT COUNT & AUTO [id number] 04:22:00 Test Item Value Reference Range Interpretation [...] PERCENT (BEAKER) (test code = 2801) Lipid [id number] 03:32:00 Test Item Value Reference Range Interpretation Comments Triglycerides (test 126 mg/dL code = 2571-8) Cholesterol (test code 90 mg/dL = 2093-3) HDL (test code = 6 mg/dL 5-9) LDL Calculated (test 59 mg/dL code = 29604-6) DMITRIY (test code = DMITRIY) Triglyceride Reference Range: Low Risk <150 Borderline 150-199 High Risk 200-499 Very High Risk >=500 Cholesterol Reference Range: Low Risk <200 Borderline 200-239 High Risk >240 HDL Cholesterol Reference Range: Low Risk >=60 High Risk <40 LDL Cholesterol Reference Range: Optimal <100 Near Optimal 100-129 Borderline 130-159 High 160-189 Very High >=190 Enterprise Software Developer ID - DBSpecimen slightly icteric [facility] METABOLIC [id number] 03:32:00 Test Item Value Reference Range Interpretation [...] S NOT APPLICABLE FOR DIALYSIS PATIEN TS. Enterprise Software Developer ID - DBSpecimen slightly ictericLIPID [id number] 03:32:00 Test Item Value Reference Range Interpretation [...] Borderline 130-159 High 160-189 Very High >=190 Enterprise Software Developer ID - DBSpecimen slightly ictericHEPATIC FUNCTION PANEL [...] (test code = 22 U/L 6-55 347) Enterprise Software Developer ID - DBSpecimen slightly ictericPROTHROMBIN TIME/[id number] 03:09:00 Test Item Value Reference Range Interpretation Comments PROTIME (HAYDEN) (test code = 22.9 seconds 11.9-14.2 H 759) INR (HAYDEN) (test code = 370) 2.1 <=5.9 Effective 03/24/2019: PT Reference Range ChangeNew: 11.9-14.2 Previous: 11.7- 14.7RECOMMENDED COUMADIN/WARFARIN INR THERAPY RANGESSTANDARD DOSE: 2.0-3.0 Includes: PROPHYLAXIS for venous thrombosis, systemic embolization; TREATMENT for venous thrombosis and/or pulmonary embolus.HIGH RISK: Target INR is2.5-3.5 for patients wiht mechanical heart valves.CHEM [id number] 11:51:20190 [facility]annCHEM [id number] 11:51:0036[facility] HermannCHEM PANEL 2019-12-13 11:51:001.20[facility]annCHEM [id number] 11:51:04592Trzkndgb HermannCHEM [id number] 11:51:003.2[facility]annCHEM [id number] 11:51:73259Btybqqjb HermannCHEM [id number] 11:51:0025[facility] HermannCHEM [id number] 11:51:009.6[facility] HermannCHEM VNALV5031-49-64 11:51:0012.2 [facility] TJYAX2907-11-47 11:51:0058[facility]annCHEM PANEL 2019-12-13 11:51:001.9[facility] XssopixWUFIIGFCNT2990-92-18 11:51:0012.2[facility] GmdogdaAALFALTAYB7468-97-94 11:51:004.03[facility] JvzylxfPRVQWBQXPP5351-87-57 11:51:0011.9[facility] FaolusvYUJXPOOAJB8473-85-92 11:51:0035.8[facility] ZSWDQHEJEB2916-37-19 11:51:0089.0[facility] RnqovryDWMRBWUWQM9763-03-02 11:51:00 Test Item Value Reference Range Interpretation Comments MCH (test code = MCH) 29.6 pg 27.0-31.0 [facility] VzfyetlVALMULWOPD4707-06-64 11:51:0033.2[facility]annHEMATOLOGY 2019-12-13 11:51:0014.9[facility] RcwmmljQAXMCEALSL8617-16-24 11:51:68576Sviyntxf QqsmelkGQBNGXVCEF4899-55-86 11:51:009.7[facility] ZqswitvJNRGTMJMNA8394-45-14 11:51:0086.4[facility] TsbrpbqZCRQKUDOJT1190-41-16 11:51:007.3[facility] VWELKEVPNS4846-67-08 11:51:005.1[facility] GitnangALYRKTWAXX3023-42-82 11:51:000.2 [facility] VcqhdwpRYQYOBJEYE3003-09-85 11:51:001.0[facility]annHEMATOLOGY 2019-12-13 11:51:0010.5[facility] BjnaaxxWBXTCSZPJF5485-78-75 11:51:000.9[facility] CchylypGWAZGVCKDP9247-09-32 11:51:000.6[facility] VipjkxeMQVIHMJSYH6260-89-05 11:51:000.1[facility]annSPECIAL JEZOJKLHN1168-05-16 11:51:005.4[facility]annCHEM IYFEX6790-07-16 21:50:68755Sevhnrvc HermannCHEM SDSMY9314-30-93 21:50:0037[facility]annCHE[facility] XKDHN3578-69-16 21:50:001.20[facility]annCHE[facility] LUSFW5652-81-37 21:50:40673Xrxsftvj HermannCHEM RVUPT8790-83-40 21:50:002.7 [facility] YTIAQ9741-68-71 21:50:45774Rtcfjeii HermannCHEM PANEL 2019-12-12 21:50:0031[facility]annCHE[facility] OPGCJ5971-71-00 21:50:006.7[facility]annCHE[facility] LVNAG0048-86-16 21:50:009.4[facility]annCHE[facility] AVLZW0242-27-71 21:50:0058[facility] YBQIM4605-20-26 21:50:0014.0[facility] YLKHZJPTHU8230-76-43 21:50:0011.3[facility] NjztsskZNPGYTRCKG5099-20-16 21:50:00 4.04[facility] KjaaqiiQELEIAVNZH9517-09-62 21:50:0011.9[facility]annHEMATOLOGY 2019-12-12 21:50:0035.9[facility] CcxoqlaQFXMBCDOTC1826-38-19 21:50:0088.8[facility] TwglcfyDAMAQQTNYG7174-91-17 21:50:00 Test Item Value Reference Range Interpretation Comments MCH (test code = MCH) 29.5 pg 27.0-31.0 [facility] EhjijudEOTZPGFANP5913-09-32 21:50:0033.2[facility]annHEMATOLOGY 2019-12-12 21:50:0014.7[facility] ZsdiqevIECDMZGSWM9769-27-75 21:50:92264Hdasbivt EisdkzrQIJGPOXAJR7752-75-65 21:50:009.8[facility] UvbtsgeVQMEFSCUCZ5615-88-53 21:50:00Normal (12/12/19 3:50 PM)[facility] NuesmckGGDMBUFXUC3892-17-23 21:50:00 Normal (12/12/19 3:50 PM)[facility] OshtcqtSOZWRFJRMS4178-35-62 21:50:0084.7 [facility] EnfzgyaSOBLTXSVLG7588-14-04 21:50:007.4[facility]annHEMATOLOGY 2019-12-12 21:50:007.6[facility] QbgqpmvANVWETWSJZ6174-85-68 21:50:000.3[facility] QlegaseTIZEBPWRSM7755-74-45 21:50:000.0[facility] ObkgyalXUJXRRWKHD9530-58-97 21:50:009.6[facility] UpokjycYVSXYGYMFU5791-44-38 21:50:000.8[facility] Lusi UGCJHPMJBU2574-32-55 21:50:000.9[facility] HxzidugEWQQTGXILU4236-31-64 21:50:000.0 [facility] IlnphlgDKPWBGIUBN4979-59-10 21:50:000.0[facility]URINE AND STOOL 2019-12-12 02:55:00Slight *ABN*(12/11/19 8:55 PM)[facility] 2019-12-12 02:55:00 Test Item Value Reference Range Interpretation Comments UA Spec Grav (test code = UA Spec 1.010 1 Grav) [facility] WJKNO6442-59-21 02:55:00 Test Item Value Reference Range Interpretation Comments UA pH (test code = UA pH) 5.0 1 5.0-8.0 [facility] MEGST3624-88-58 02:55:00Negative *NA*(12/11/19 8:55 PM) [facility] NGQDK0703-88-62 02:55:00Large *ABN*(12/11/19 8:55 PM) [facility] XLEZY7458-73-37 02:55:004.0[facility] XYAWU1216-85-21 02:55:00Negative (12/11/19 8:55 PM)[facility] OOJEG0258-45-99 02:55:00Negative (12/11/19 8:55 PM)[facility] AAFBL5903-62-31 02:55:0014[facility] NOYDQ2267-63-33 02:55:00 >182[facility] APWKK0830-06-25 02:55:001[facility] CARDIAC CCMUOWA2731-04-41 10:14:49564Xsdujedc HermannCHEM IZVCT5453-10-81 10:14:0092[facility]annCHEM KQRID3736-49-49 10:14:0029[facility]annCHEM MGVIH9296-31-71 10:14:001.00[facility]annCHE[facility] HWNIF0934-96-06 10:14:53398 [facility] AMZGH0730-29-20 10:14:003.6[facility]annCHEM PANEL 2019-12-11 10:14:74758Wuuhfipn HermannCHEM OYRHP2313-91-22 10:14:0021[facility]annCHE[facility] JIQRK1896-76-89 10:14:009.8[facility]annCHE[facility] QSCHT2019-89-39 10:14:005.8[facility]annCHE[facility] RYTVZ4811-60-49 10:14:002.3[facility]annCHEM WDACH8504-82-89 10:14:0034[facility]annCHE[facility] JGNHA6950-06-74 10:14:0050 [facility] AYLBB1701-61-13 10:14:0073[facility]annCHEM PANEL 2019-12-11 10:14:001.2[facility]annCHEM EOZYM6778-73-46 10:14:0013.6[facility]annCHEM WHIOO5201-23-43 10:14:00 Test Item Value Reference Range Interpretation Comments B/C Ratio (test code = B/C Ratio) 29 1 6-25 [facility] VVNJU2811-71-60 10:14:003.5[facility]annCHEM PANEL 2019-12-11 10:14:00 Test Item Value Reference Range Interpretation Comments A/G Ratio (test code = A/G Ratio) 0.7 1 0.7-1.6 [facility] CJIHZ5532-22-53 10:14:0073[facility]annHEMATOLOGY 2019-12-11 10:14:007.8[facility] CwzessxFEQOQKTWPI5592-16-76 10:14:003.88[facility] BipoqmsXKLGKDEDDF5604-87-95 10:14:0011.6[facility] YtceljhBQXHIHOPQL7824-37-00 10:14:0035.3[facility] FzcvyorFFWOKZNBMO3185-31-64 10:14:0091.0[facility] [place] JCRDAXHZZE3201-00-75 10:14:00 Test Item Value Reference Range Interpretation Comments MCH (test code = MCH) 30.0 pg 27.0-31.0 [facility] SmbdrcpNDIPMRAQYE3149-86-32 10:14:0033.0[facility]annHEMATOLOGY 2019-12-11 10:14:0014.7[facility] ZftsutcLGZJQHQUKD3465-15-99 10:14:72992Krjrxtew FayjopsBSWDYKXXZR4810-75-58 10:14:0010.1[facility] LqeugaxULGOVVKCEB6250-43-86 10:14:0081.9[facility] XmvoassSAUMSUPCHF7559-10-51 10:14:0010.8[facility] JNIVHKQTIL2311-09-28 10:14:006.9[facility] LlzakhpIWOYZESKFF6728-22-96 10:14:000.2 [facility] FtluvcxFKQVUCWCXG7823-85-37 10:14:000.2[facility]annHEMATOLOGY 2019-12-11 10:14:006.4[facility] IzibrxnJTKYATKDDV7573-01-16 10:14:000.8[facility] QggkungADCDTIDYTW2567-87-88 10:14:000.5[facility] GjhljpcPHBNZNAFOB0031-39-38 10:14:000.0[facility] DvqqhkqHXIIEMSVAK9788-19-86 10:14:000.0[facility] Vykmrulqx1798-13-13 14:14:28617Mekvvnxk LlurhqcZracdaayn9632-36-43 14:14:003.3 [facility] XdpqxwiOhkilszoa6296-85-56 14:14:0028[facility]annChemistry 2015-05-01 14:14:001.01[facility] FomvzikAwojqntav9827-01-06 14:14:009.9[facility] XjytddlKqzhqlmuu6317-50-40 16:03:92545Qsodaoam VtbwcryDdntlqfwm1774-09-88 16:03:003.5[facility] WttvmtgAehmfqglu3152-18-64 16:03:0021[facility] Qdobeobek3729-00-81 16:03:000.97[facility] XcodpdnCembkpxyl2196-20-88 16:03:0010.1 [facility] KritktgAwjkicelq3021-22-32 16:03:24477Licaqspw HermannChemistry 2015-04-24 16:03:0045[facility] RobstrdYrqjwehko8492-83-96 16:03:68177Usbwiohg QxxklxtDhgcaitet6252-13-05 16:03:004.4[facility] MtjouumYjnnuiwvd3061-41-29 16:03:0059[facility] VavtwmqZjobkfcgs3060-37-35 16:03:0024[facility] [place] Fhokjmnxv3128-30-18 16:03:0020[facility] LkszsffXpanffsyv9775-98-81 16:03:001.9 [facility] OfnbovrEiabdlgtvfs0393-99-96 16:03:00 Test Item Value Reference Range Interpretation Comments INR (test code = INR) 1.05 1 0.8-1.5 [facility] EybevsoTnlafomwpes2240-59-25 16:03:00 Test Item Value Reference Range Interpretation Comments PTT PATIENT (test code = PTT PATIENT) 27.6 s 22.0-36.0 [facility] BwdhoqeNchqptlbyhx1217-56-55 16:03:00 Test Item Value Reference Range Interpretation Comments INR (test code = INR) 1.05 1 0.8-1.5 [facility] QezuyghJpthtmjwtma8322-10-14 16:03:00 Test Item Value Reference Range Interpretation Comments PTT PATIENT (test code = PTT PATIENT) 27.6 s 22.0-36.0 [facility] TezosxyEchqspvojp2422-48-56 16:03:0014.7[facility] HermannHematology 2015-04-24 16:03:0043.9[facility] CvkiqyiAjsdnrizk7456-20-03 16:27:08122Lyycnysn McfdnrwDqzzihctv8322-56-07 16:27:003.6[facility] KtbaxtfPiwwsamwb4294-19-98 16:27:72302Wmapxmgf UhhackyPhrfrwirl2614-26-35 16:27:003.6[facility] [place] Erfsnwhne3212-68-05 16:27:0019[facility] GmzqljeUvrnwbiwa3424-69-59 16:27:001.09 [facility] QrmpdiyGjeixcwdt6701-27-92 16:27:0010.8[facility]annChemistry 2014-07-07 16:17:16337Smwwbwjc DmvlbnxIfsaozzrk1587-10-37 16:17:003.8[facility] FtbrodpVbhfalwnn8323-36-21 16:17:65751Ulhxlkmh QlddskiMdlqvpjgv6667-65-74 16:17:003.8[facility] IfnomikLvtltffwk6718-41-39 16:17:0015[facility] [place] Mjuqfiuhs2850-46-32 16:17:000.96[facility] CloijuuRqttgrglf8242-85-75 16:17:0010.1 [facility] YnehcjkLaoqxfcjvx7618-72-72 16:17:0014.1[facility] HermannHematology 2014-07-07 16:17:0041.2[facility] HermannCARDIAC AAXMBWX4945-17-84 14:45:001.3 [facility]annCARDIAC YVUPEOL2193-59-04 14:45:000.02[facility]annCARDIAC KTXQFVY0759-98-86 14:45:001.9[facility]annCARDIAC PFIXKSI7290-78-20 14:45:00 149[facility] HermannCHEM BGKOS6981-33-76 14:45:0068[facility]annCHEM PANEL 2014-05-03 14:45:40418Stprqmvz HermannCHEM LANNM5722-61-44 14:45:001.1[facility]annCHEM BTWKV6790-39-33 14:45:0018[facility]annCHEM MWGYJ9854-28-15 14:45:0090[facility]annCHEM XJHRQ2783-06-12 14:45:009.4[facility]annCHEM BIMSY9687-25-48 14:45:009.5[facility]annCHEM XMGCE0010-69-15 14:45:20048 [facility]annCHEM GSOLO1081-95-46 14:45:0029[facility]annCHEM PANEL 2014-05-03 14:45:003.4[facility] FqlqfkxAKRFSNHSPV2489-46-38 14:45:000.7[facility] MwkgougQBVLFFVATY1908-43-09 14:45:003.3[facility] LnqeorkTKQVYDFGBO2425-70-42 14:45:008.1[facility] LpxoertXTZINKKGBQ8453-80-99 14:45:0031.7[facility] PSBGOODQVI0123-09-32 14:45:0056.2[facility] KprynkwPJLGKNYWBB3089-65-69 14:45:00 0.0[facility] WkqtzipNLHJJYIPJT5935-19-26 14:45:000.2[facility] HermannHEMATOLOGY 2014-05-03 14:45:000.5[facility] PuicnmhYFTLFTMGPH8878-81-79 14:45:001.8[facility] TimwixrPXRDFBPYPF2223-76-24 14:45:003.1[facility] YblvqmuTFNAFUPJUR6498-32-13 14:45:00 Test Item Value Reference Range Interpretation Comments PT (test code = PT) 12.9 s 12.0-14.7 [facility] MdbsrtaDBLZHQVLRF9589-64-55 14:45:000.98[facility]annHEMATOLOGY 2014-05-03 14:45:00 Test Item Value Reference Range Interpretation Comments PTT (test code = PTT) 28.7 s 22.9-35.8 [facility] XjlbagrKKFBLNWOUO8130-36-86 14:45:0013.9[facility]annHEMATOLOGY 2014-05-03 14:45:0091.8[facility] YhsfxjwQLCLDEPMPK8498-87-64 14:45:0040.8[facility] DobjhggTSKMKTIRSV1058-99-05 14:45:005.6[facility] PmlyhawIAYGAYVGXI2076-42-08 14:45:004.45[facility] HfnmelvCTKQQXOMNW3831-23-69 14:45:00 Test Item Value Reference Range Interpretation Comments MCH (test code = MCH) 31.2 pg 27.0-31.0 [facility] EadsbonTGSQQDQEMN2202-24-51 14:45:0013.2[facility] HermannHEMATOLOGY 2014-05-03 14:45:0034.0[facility] KavlfdqRLCZTEUVZU7364-06-65 14:45:50890Rudosbjv KexqfbpAZIUNCIDZY2624-49-22 14:45:008.8[facility] GfgcfzyXwblistuh9398-50-45 22:30:481.45[facility] SvbkqqtDlhfwfjyz9928-57-00 22:30:481.45[facility] [place] Gfmxzxbtt4251-55-90 22:30:481.45[facility]
[2020-07-08 09:51] LABS: Basophils % 0.9 % (0-1.3); Hematocrit 35.9 % (39.6-49.0); Lymphocytes % 31.8 % (15.3-44.8); MPV 8.4 fL (7.6-11.3); RBC Red Blood Cell Count 4.12 M/uL (4.33-5.43)
[2020-07-08] MEDS ORDERED: ASPIRIN 81 MG CHEWABLE TABLET ONE (09:54)
[2020-07-08] MEDS ORDERED: NA CHLORIDE 0.9% 1,000 ML ONE ×2 (09:54→21:48)
[2020-07-08 10:20] LABS: ALT/SGPT < 6 U/L (12-78); AST/SGOT 10 U/L (15-37); Albumin 2.8 g/dL (3.4-5.0); Alkaline Phosphatase 82 U/L (45-117); BUN Blood Urea Nitrogen 27 mg/dL (7-18); Bicarbonate 26 mmol/L (21-32); Bilirubin Direct 0.1 mg/dL (0-0.2); Bilirubin Total 0.5 mg/dL (0.2-1.0); Glucose Level 138 mg/dL (74-106); Lipase 70 U/L (73-393); NT PRO-BNP 21544 pg/mL (<450); Potassium 3.4 mmol/L (3.5-5.1); Protein, Total 7.3 g/dL (6.4-8.2); Sodium Level 143 mmol/L (136-145); Troponin (Emerg Dept Use Only) 0.24 ng/mL (0.0-0.045)
[2020-07-08] MEDS ORDERED: HEPARIN 5000 UNIT/ML 1 ML VIAL ONE ×2 (10:48→20:00)
[2020-07-08] MEDS ORDERED: HEPARIN/D5W 25,000 UNIT/500 ML BAG IV ONE (10:48)
[2020-07-08] MEDS ORDERED: FAMOTIDINE 20 MG/2 ML VIAL IV ONE (10:59)
[2020-07-08] MEDS ORDERED: POTASSIUM 25 MEQ EFFERV TAB ONE (10:59)
--- NOTE | 2020-07-08 11:03 | ER ---
Nurse's Notes [facility] Name: Schuyler Farris Jr Age: 74 yrs Sex: Male : 1945 Arrival Date: 07/08/2020 Time: 09:33 Bed 4 Private MD: Diagnosis: Other chest pain;Dyspnea;Bradycardia, unspecified;Hypotension;Unspecified combined systolic (congestive) and diastolic (congestive) heart failure Presentation: 07/08 09:30 Chief complaint: EMS states: pt from [facility], call for low HR, pacemaker failure to tw2 capture, we gave 1 mg total of atropine and 1 mg Epi. Coronavirus screen: At this time, the client does not indicate any symptoms associated with coronavirus-19. Ebola Screen: Patient denies travel to an Ebola-affected area in the 21 days before illness onset. Initial Sepsis Screen: Does the patient meet any 2 criteria? No. Patient's initial sepsis screen is negative. Does the patient have a suspected source of infection? No. Patient's initial sepsis screen is negative. Risk Assessment: Do you want to hurt yourself or someone else? Patient reports no desire to harm self or others. Note provider at bedside at this time. Onset of symptoms was July 08, 2020. 09:30 Method Of Arrival: EMS: [facility] tw2 09:30 Acuity: JOSE 2 tw2 Triage Assessment: 09:45 General: Appears in no apparent distress. Behavior is calm, cooperative, appropriate tw2 for age. Pain: Complains of pain in chest. Historical: - Allergies: 09:55 Bactrim; em 09:55 Tetanus Vaccines \T\ Toxoid; em - Home Meds: 11:22 acetaminophen 325 mg Oral tab 2 tabs every 6 hours [Active]; aspirin 81 mg Oral chew 1 em tab once daily [Active]; buspirone 10 mg Oral tab 2 tabs 2 times per day [Active]; Lasix 10 mg Oral 1 tab once daily [Active]; Levaquin 500 mg Oral tab 1 tab once daily [Active]; lisinopril 20 mg Oral tab 1 tab once daily [Active]; melatonin 3 mg Oral tab twice a day [Active]; metoprolol tartrate 12.5 mg Oral tab 1 tab once daily [Active]; Namenda 10 mg oral tab 1 tab 2 times per day [Active]; potassium chloride 20 mEq Oral TbER 1 tab once daily [Active]; promethazine 12.5 mg Oral tab 1 tab every 6 hours [Active]; Spironolactone 12.5 mg Oral 1 tab once daily [Active]; terazosin 1 mg oral cap 1 cap nightly [Active]; - PMHx: 09:55 Angina; CAD; CHF; Hyperlipidemia; Hypertension; pacemaker/defibrilator; em - Immunization history:: Adult Immunizations up to date. - Family history:: not pertinent. - Social history:: Smoking status: Patient denies any tobacco usage or history of. Screenin:52 Abuse screen: Denies threats or abuse. no apparent signs noted. Nutritional screening: em No deficits noted. Tuberculosis screening: No symptoms or risk factors identified. Fall Risk None identified. Assessment: 09:30 General: Appears in no apparent distress. comfortable, Behavior is calm, cooperative, em appropriate for age, Reports fatigue for >3 days, Denies fever. Pain: Complains of pain in chest Pain began since Friday. Neuro: Level of Consciousness is awake, alert, obeys commands, Oriented to person, place, time, situation, Appropriate for age. Cardiovascular: Rhythm is ventricular pacer. Respiratory: Reports shortness of breath at rest Airway is patent Respiratory effort is even, unlabored, Respiratory pattern is regular, symmetrical. GI: Abdomen is flat, PEG tube in place, Site clean. Patient currently denies nausea, vomiting. Derm: Skin is intact, is fragile, is thin, Skin is. Musculoskeletal: Capillary refill < 3 seconds, Range of motion: intact in all extremities. 10:53 Reassessment: Patient appears in no apparent distress at this time. Patient and/or em family updated on plan of care and expected duration. Pain level reassessed. Patient is alert, oriented x 3, equal unlabored respirations, skin warm/dry/pink. Patient states feeling better. Patient states symptoms have improved. 12:00 Reassessment: Patient appears in no apparent distress at this time. Patient and/or em family updated on plan of care and expected duration. Pain level reassessed. Patient is alert, oriented x 3, equal unlabored respirations, skin warm/dry/pink. 13:00 Reassessment: Patient appears in no apparent distress at this time. Patient and/or em family updated on plan of care and expected duration. Pain level reassessed. Patient is alert, oriented x 3, equal unlabored respirations, skin warm/dry/pink. 13:52 Reassessment: Patient appears in no apparent distress at this time. Patient and/or em family updated on plan of care and expected duration. Pain level reassessed. Patient is alert, oriented x 3, equal unlabored respirations, skin warm/dry/pink. Vital Signs: 09:30 BP 74 / 54; Pulse 79; Resp 18; Temp 97.8(O); Pulse Ox 94% on 3 lpm NC; Weight 88 kg (R);tw2 10:00 BP 81 / 55; Pulse 76; em 10:18 BP 87 / 58; Pulse 79; Resp 24; Pulse Ox 95% on 3 lpm NC; em 10:52 BP 94 / 78; Pulse 76; Resp 20; Pulse Ox 93% on 3 lpm NC; em 12:00 BP 115 / 92; Pulse 81; Resp 20; Pulse Ox 97% on R/A; em 13:00 BP 120 / 80; Pulse 80; Resp 18; Pulse Ox 94% on 3 lpm NC; em 13:48 BP 119 / 82; Pulse 83; Resp 18; Pulse Ox 94% on 3 lpm NC; em ED Course: 09:30 Maintain EMS IV. Dressing intact. Good blood return noted. Site clean \T\ dry. Gauge \T\ em site: 20 right wrist . 09:33 Patient arrived in ED. [facility] 09:33 Gabe Khanna MD is Attending Physician. [facility] 09:45 Triage completed. tw2 09:45 Arm band placed on. EKG completed in triage. Results shown to MD. tw2 09:45 Patient has correct armband on for positive identification. Placed in gown. Bed in low em position. Call light in reach. Side rails up X2. color television console monitor on. Pulse ox on. NIBP on. 09:45 Initial lab(s) drawn, by me, sent to lab. Inserted saline lock: 20 gauge in right em antecubital area, using aseptic technique. Blood collected. 09:46 Michael Mclaughlin, LIZ is Primary Nurse. em 10:22 XRAY Chest (1 view) In Process Unspecified. EDMS 11:01 Alexei Dubois MD is Hospitalizing Provider. [facility] 11:03 called [phone] [place] [facility] who will page out out local rep eb Moustapha to come interrogate his pacemaker. 11:20 connected Tania the rep station engineer main line for [facility] with Dr. Khanna for patient eb consultation. 15:17 No provider procedures requiring assistance completed. Patient admitted, IV remains in em place. Administered Medications: 09:46 Drug: Aspirin 162 mg Route: PO; em 10:32 Follow up: Response: No adverse reaction em 09:46 Drug: NS 0.9% 500 ml Route: IV; Rate: bolus; Site: right wrist; em 10:31 Follow up: IV Status: Completed infusion; IV Intake: 500ml em 10:19 Drug: NS 0.9% 500 ml Route: IV; Rate: bolus; Site: right wrist; em 10:57 Follow up: IV Status: Completed infusion; IV Intake: 500ml em 10:44 Drug: Heparin (ID-Bolus No thrombolytic) - HEParin 60 units/kg {Co-Signature: tw2 (Tania Howard RN).} Route: IVP; Site: right wrist; 12:31 Follow up: Response: No adverse reaction em 10:44 Drug: Heparin (ID Drip) 12 units/kg/hr - (HEParin 67838 units, D5W 500 ml) em {Co-Signature: alfonso2 (Tania Howard RN).} Route: IV; Rate: calculated rate; Site: right wrist; 10:51 Drug: Pepcid 20 mg Route: IVP; Site: right wrist; em 12:30 Follow up: Response: No adverse reaction em 10:51 Drug: Potassium Effervescent Tablet 25 mEq Route: PO; em 12:31 Follow up: Response: No adverse reaction em 10:52 Drug: NS 0.9% 1000 ml Route: IV; Rate: 125 ml/hr; Site: right wrist; em Intake: 10:31 IV: 500ml; Total: 500ml. em 10:57 IV: 500ml; Total: 1000ml. em Outcome: 11:02 Decision to Hospitalize by Provider. lasha 15:11 Patient left the ED. hb 15:17 Admitted to ICU accompanied by nurse, via stretcher, room ER 10, with oxygen, on em monitor, with chart. 15:17 Condition: improved 15:17 Instructed on the need for admit, Demonstrated understanding of instructions. Signatures: Dispatcher [employer] Gabe Wagner MD MD cha Munoz, Edgar RN RN em Helen Parikh RN RN hb Wise, Tara, RN RN tw2 Marie Rosales RN tw2 Corrections: (The following items were deleted from the chart) 11 11:20 Diet: eb eb 12:17 12:00 BP 115 / 92; Pulse 81bpm; Resp 87bpm; Pulse Ox 97% RA; em em
--- NOTE | 2020-07-08 11:03 | EDPHYS ---
Physician Documentation [facility] Name: Schuyler Farris Jr Age: 74 yrs Sex: Male : 1945 Arrival Date: 07/08/2020 Time: 09:33 Bed 4 Private MD: ED Physician Gabe Khanna HPI: 07/08 09:38 This 74 yrs old Male presents to ER via Unassigned with complaints of chest lasha pain, weakness and sob. 09:38 The patient has shortness of breath at rest. Onset: The symptoms/episode began/occurred lasha 5 day(s) ago. Duration: The symptoms are intermittent, with no pattern. The patient's shortness of breath has no apparent modifying factors. The patient or guardian reports chest pain that is located primarily in the anterior chest wall, left. Onset: 5 day(s) ago. The pain does not radiate. Associated signs and symptoms: Pertinent positives: non-productive cough. Severity of symptoms: At their worst the symptoms were mild moderate in the emergency department the symptoms are unchanged. The chest pain is described as aching, sharp. Historical: - Allergies: 09:55 Bactrim; em 09:55 Tetanus Vaccines \T\ Toxoid; em - Home Meds: 11:22 acetaminophen 325 mg Oral tab 2 tabs every 6 hours [Active]; aspirin 81 mg Oral chew 1 em tab once daily [Active]; buspirone 10 mg Oral tab 2 tabs 2 times per day [Active]; Lasix 10 mg Oral 1 tab once daily [Active]; Levaquin 500 mg Oral tab 1 tab once daily [Active]; lisinopril 20 mg Oral tab 1 tab once daily [Active]; melatonin 3 mg Oral tab twice a day [Active]; metoprolol tartrate 12.5 mg Oral tab 1 tab once daily [Active]; Namenda 10 mg oral tab 1 tab 2 times per day [Active]; potassium chloride 20 mEq Oral TbER 1 tab once daily [Active]; promethazine 12.5 mg Oral tab 1 tab every 6 hours [Active]; Spironolactone 12.5 mg Oral 1 tab once daily [Active]; terazosin 1 mg oral cap 1 cap nightly [Active]; - PMHx: 09:55 Angina; CAD; CHF; Hyperlipidemia; Hypertension; pacemaker/defibrilator; em - Immunization history:: Adult Immunizations up to date. - Family history:: not pertinent. - Social history:: Smoking status: Patient denies any tobacco usage or history of. ROS: 09:38 Constitutional: Negative for fever, chills, and weight loss, Eyes: Negative for injury, lasha pain, redness, and discharge, ENT: Negative for injury, pain, and discharge, Neck: Negative for injury, pain, and swelling, Abdomen/GI: Negative for abdominal pain, nausea, vomiting, diarrhea, and constipation, Back: Negative for injury and pain, : Negative for injury, bleeding, discharge, and swelling, MS/Extremity: Negative for injury and deformity, Skin: Negative for injury, rash, and discoloration, Neuro: Negative for headache, weakness, numbness, tingling, and seizure, Psych: Negative for depression, anxiety, suicide ideation, homicidal ideation, and hallucinations, Allergy/Immunology: Negative for hives, rash, and allergies, Endocrine: Negative for neck swelling, polydipsia, polyuria, polyphagia, and marked weight changes, Hematologic/Lymphatic: Negative for swollen nodes, abnormal bleeding, and unusual bruising. 09:38 Cardiovascular: Positive for chest pain. 09:38 Respiratory: Positive for cough, shortness of breath. Exam: 09:35 ECG was reviewed by the Attending Physician. lasha 09:38 Constitutional: This is a well developed, well nourished patient who is awake, alert, lasha and in no acute distress. Head/Face: Normocephalic, atraumatic. Eyes: Pupils equal round and reactive to light, extra-ocular motions intact. Lids and lashes normal. Conjunctiva and sclera are non-icteric and not injected. Cornea within normal limits. Periorbital areas with no swelling, redness, or edema. ENT: Nares patent. No nasal discharge, no septal abnormalities noted. Tympanic membranes are normal and external auditory canals are clear. Oropharynx with no redness, swelling, or masses, exudates, or evidence of obstruction, uvula midline. Mucous membranes moist. Neck: Trachea midline, no thyromegaly or masses palpated, and no cervical lymphadenopathy. Supple, full range of motion without nuchal rigidity, or vertebral point tenderness. No Meningismus. Chest/axilla: Normal chest wall appearance and motion. Nontender with no deformity. No lesions are appreciated. Respiratory: Lungs have equal breath sounds bilaterally, clear to auscultation and percussion. No rales, rhonchi or wheezes noted. No increased work of breathing, no retractions or nasal flaring. Abdomen/GI: Soft, non-tender, with normal bowel sounds. No distension or tympany. No guarding or rebound. No evidence of tenderness throughout. Back: No spinal tenderness. No costovertebral tenderness. Full range of motion. Male : Normal genitalia with no discharge or lesions. Skin: Warm, dry with normal turgor. Normal color with no rashes, no lesions, and no evidence of cellulitis. MS/ Extremity: Pulses equal, no cyanosis. Neurovascular intact. Full, normal range of motion. Neuro: Awake and alert, GCS 15, oriented to person, place, time, and situation. Cranial nerves II-XII grossly intact. Motor strength 5/5 in all extremities. Sensory grossly intact. Cerebellar exam normal. Normal gait. Psych: Awake, alert, with orientation to person, place and time. Behavior, mood, and affect are within normal limits. 09:38 Cardiovascular: Rate: normal, Rhythm: regular, Pulses: Pulses are 3+ in bilateral radial, brachial, femoral, popliteal, posterior tibial and and dorsalis pedis arteries.. Heart sounds: normal, Edema: is not appreciated, JVD: is not appreciated. Vital Signs: 09:30 BP 74 / 54; Pulse 79; Resp 18; Temp 97.8(O); Pulse Ox 94% on 3 lpm NC; Weight 88 kg (R);tw2 10:00 BP 81 / 55; Pulse 76; em 10:18 BP 87 / 58; Pulse 79; Resp 24; Pulse Ox 95% on 3 lpm NC; em 10:52 BP 94 / 78; Pulse 76; Resp 20; Pulse Ox 93% on 3 lpm NC; em 12:00 BP 115 / 92; Pulse 81; Resp 20; Pulse Ox 97% on R/A; em 13:00 BP 120 / 80; Pulse 80; Resp 18; Pulse Ox 94% on 3 lpm NC; em 13:48 BP 119 / 82; Pulse 83; Resp 18; Pulse Ox 94% on 3 lpm NC; em MDM: 09:33 Patient medically screened. lasha 09:42 Differential diagnosis: Anemia CHF exacerbation, abnormal EKG, acute myocardial lasha infarction, congestive heart failure pancreatitis, pleurisy, pneumonia, pulmonary embolus, stable angina, unstable angina, Myocardial Infarction Psychogenic Pulmonary Embolism reactive airway disease, Unstable Angina. Antibiotic administration: Not indicated. HEART Score: History: Highly Suspicious (2), ECG: Non specific repolarization disturbance / LBTB / PM (1), Age: > or = 65 years (2), Risk Factors: > or = 3 Risk factors for atherosclerotic disease (2), [Hypercholesterolemia] [Hypertension] [+ Family HX] [Obesity]. The patient was given aspirin in the Emergency Department. The patient's Wells Deep Vein Thrombosis Score was calculated as follows: Total Score: 0. This patient was found to be at low risk for a deep vein thrombosis by using the Well's assessment criteria Total Score: 0-2 Pts- Low Risk. The patient's pulmonary embolism risk score was calculated as follows: Total Score: 0-2 points. This patient was found to be at low risk for a pulmonary embolism by using the Well's assessment criteria. CAMILLE Risk Score: 1 - patient's age is greater or equal to 65 years, 1 - Three or more CAD risk factors, 1- Known CAD, 1 - ASA use in past 7 days, TOTAL SCORE = 4. Immunization status: Pneumococcal vaccine: Influenza vaccine: Data reviewed: vital signs, nurses notes, lab test result(s), EKG, radiologic studies, plain films. Data interpreted: equipment monitor phototypesetting: rate is 78 beats/min, rhythm is regular, Pulse oximetry: on room air is 94 %. 09:44 Test interpretation: by ED physician or midlevel provider: ECG, plain radiologic lasha studies. 10:52 ED course: to icu , dr beasley, consult cardiology. 07/08 09:35 Order name: Basic Metabolic Panel; Complete Time: 10:29 07/08 09:35 Order name: CBC with Diff; Complete Time: 10:29 07/08 09:35 Order name: LFT's; Complete Time: 10:29 07/08 09:35 Order name: Magnesium; Complete Time: 10:29 07/08 09:35 Order name: NT PRO-BNP; Complete Time: 10:29 07/08 09:35 Order name: Troponin (emerg Dept Use Only); Complete Time: 10:29 07/08 09:35 Order name: Lipase; Complete Time: 10:29 [facility] 07/08 12:06 Order name: CBC with Automated Diff EDMS 07/08 12:06 Order name: CBC with Automated Diff EDMS 07/08 12:06 Order name: Comprehensive Metabolic Panel EDMS 07/08 12:06 Order name: Comprehensive Metabolic Panel EDMA 07/08 12:06 Order name: Lactate EDMS 07/08 12:06 Order name: Lactate EDMS 07/08 12:06 Order name: Magnesium EDMS 07/08 09:35 Order name: XRAY Chest (1 view) [facility] 07/08 12:06 Order name: Magnesium EDMS 07/08 12:06 Order name: NT PRO-BNP EDMA 07/08 12:06 Order name: NT PRO-BNP EDMA 07/08 12:06 Order name: Phosphorus EDMS 07/08 12:06 Order name: Phosphorus EDMS 07/08 12:06 Order name: Troponin I EDMA 07/08 12:06 Order name: Troponin I EDMA 07/08 12:06 Order name: Troponin I [facility] 07/08 09:35 Order name: EKG; Complete Time: 09:35 [facility] 07/08 09:35 Order name: Cardiac monitoring; Complete Time: 10: [facility] 07/08 09:35 Order name: EKG - Nurse/Tech; Complete Time: 10: [facility] 07/08 09:35 Order name: IV Saline Lock; Complete Time: 10: [facility] 07/08 09:35 Order name: Labs collected and sent; Complete Time: 10: [facility] 07/08 09:35 Order name: O2 Per Protocol; Complete Time: 10: [facility] 07/08 09:35 Order name: O2 Sat Monitoring; Complete Time: 10: [facility] 07/08 12:06 Order name: Heart Healthy EDMS EC:35 Rate is 82 beats/min. Rhythm is regular. QRS [place] is Normal. [place] interval is normal. QRS lasha interval is normal. QT interval is normal. No Q waves. T waves are Normal. No ST changes noted. Interpreted by me. Reviewed by me. Administered Medications: 09:46 Drug: Aspirin 162 mg Route: PO; em 10:32 Follow up: Response: No adverse reaction em 09:46 Drug: NS 0.9% 500 ml Route: IV; Rate: bolus; Site: right wrist; em 10:31 Follow up: IV Status: Completed infusion; IV Intake: 500ml em 10:19 Drug: NS 0.9% 500 ml Route: IV; Rate: bolus; Site: right wrist; em 10:57 Follow up: IV Status: Completed infusion; IV Intake: 500ml em 10:44 Drug: Heparin (WI-Bolus No thrombolytic) - HEParin 60 units/kg {Co-Signature: tw2 (Tania Howard RN).} Route: IVP; Site: right wrist; 12:31 Follow up: Response: No adverse reaction em 10:44 Drug: Heparin ([place] Drip) 12 units/kg/hr - (HEParin 68287 units, D5W 500 ml) em {Co-Signature: tw2 (Tania Howard RN).} Route: IV; Rate: calculated rate; Site: right wrist; 10:51 Drug: Pepcid 20 mg Route: IVP; Site: right wrist; em 12:30 Follow up: Response: No adverse reaction em 10:51 Drug: Potassium Effervescent Tablet 25 mEq Route: PO; em 12:31 Follow up: Response: No adverse reaction em 10:52 Drug: NS 0.9% 1000 ml Route: IV; Rate: 125 ml/hr; Site: right wrist; em Disposition: 07/08/20 11:02 Hospitalization ordered by Alexei Beasley for Inpatient Admission. Preliminary diagnosis are Other chest pain, Dyspnea, Bradycardia, unspecified, Hypotension, Unspecified combined systolic (congestive) and diastolic (congestive) heart failure. - Bed requested for Intensive Care Unit. - Status is Inpatient Admission. hb - Condition is Fair. - Problem is new. - Symptoms have improved. Signatures: Dispatcher [employer] Gabe Wagner MD MD cha Munoz, Edgar, RN RN Helen Parikh RN RN hb Tara Wise RN tw2 Corrections: (The following items were deleted from the chart) 15:11 11:02 Hospitalization Ordered by Alexei Beasley MD for Inpatient Admission. Preliminary hb diagnosis is Other chest pain; Dyspnea; Bradycardia, unspecified; Hypotension; Unspecified combined systolic (congestive) and diastolic (congestive) heart failure. Bed requested for Intensive Care Unit. Status is Inpatient Admission. Condition is Fair. Problem is new. Symptoms have improved. lasha
--- NOTE | 2020-07-08 11:40 | RAD REPORT ---
EXAM DESCRIPTION: RAD - Chest Single View - 07/08/2020 10:22 am CLINICAL HISTORY: DYSPNEA, shortness of breath COMPARISON: July 04 TECHNIQUE: AP portable chest image was obtained 07/08/2020 10:22 am . FINDINGS: Resuscitation paddle and cardiac leads overlie the left chest. Right-sided pacemaker/defib rillator remains in place. No additional tube, line or external device. No acute lung parenchymal process. Left pericardial fat pad is again noted. Heart and vasculature are normal. No measurable pleural effusion and no pneumothorax. No acute bony abnormality seen. No acute aortic findings suspected. IMPRESSION: No acute cardiopulmonary process. No suspicious change from comparison.
[2020-07-08] MEDS ORDERED: ACETAMINOPHEN 500 MG TAB PO PRN (12:03)
[2020-07-08] MEDS ORDERED: ONDANSETRON 4 MG/2 ML VIAL IV PRN (12:03)
[2020-07-08] MEDS: NA CHLORIDE 0.9% 1,000 ML IV SCH ×2 (13:00→21:39)
[2020-07-08] MEDS ORDERED: HEPARIN/D5W 25,000 UNIT/500 ML BAG IV SCH (18:00)
[2020-07-08 18:18] LABS: Potassium 4.1 mmol/L (3.5-5.1)
[2020-07-08 19:59] VITALS: BMI 26.2
[2020-07-08] MEDS: PANTOPRAZOLE 40MG TABLET PO SCH (22:46)
[2020-07-08] MEDS ORDERED: PANTOPRAZOLE 40MG TABLET PO ONE (22:54)
[2020-07-09 03:52] LABS: Absolute Lymphocytes (CBC) 2.4 K/uL (0.7-4.9); Basophils % 0.7 % (0-1.3); MPV 8.2 fL (7.6-11.3); RBC Red Blood Cell Count 3.85 M/uL (4.33-5.43)
[2020-07-09 04:13] LABS: Albumin 2.8 g/dL (3.4-5.0); Bilirubin Total 0.5 mg/dL (0.2-1.0); Magnesium 1.9 mg/dL (1.8-2.4); Potassium 3.7 mmol/L (3.5-5.1); Protein, Total 6.9 g/dL (6.4-8.2); Troponin I 0.32 ng/mL (0.0-0.045)
[2020-07-09] MEDS ORDERED: PANTOPRAZOLE 40MG TABLET PO ONE (04:24)
[2020-07-09] MEDS ORDERED: POTASSIUM CL SA 10 MEQ TAB PO ONE ×2 (04:36→04:53)
[2020-07-09] MEDS ORDERED: HEPARIN 5000 UNIT/ML 1 ML VIAL ONE (04:53)
[2020-07-09] MEDS: PANTOPRAZOLE 40MG TABLET PO SCH (05:45)
[2020-07-09] MEDS ORDERED: PANTOPRAZOLE 40MG TABLET PO SCH (06:30)
[2020-07-09] MEDS: NA CHLORIDE 0.9% 1,000 ML IV SCH (09:00)
[2020-07-09] MEDS ORDERED: ENOXAPARIN 40 MG/0.4 ML SQ SCH (09:00)
--- NOTE | 2020-07-09 09:46 | EKG ---
Test Date: 2020-07-08 Test Time: 09:35:06 School Physical Therapist: OZZIE MEASUREMENT RESULTS: Intervals: Rate: 82 TN: 80 QRSD: 170 QT: 490 QTc: 572 [place]: P: 74 TN: 80 QRS: 64 T: 242 INTERPRETIVE STATEMENTS: Demand pacemaker, interpretation is based on intrinsic rhythm Sinus rhythm with fusion complexes [id number] Abnormal ECG Compared to ECG 07/04/2020 11:38:23 Fusion complex(es) now present Ventricular preexcitation now present Electronically Signed On 07-09-20 09:44:26 CDT by Suresh Humphries
[2020-07-09] MEDS ORDERED: ENOXAPARIN 40 MG/0.4 ML SQ ONE (10:51)
[2020-07-09] MEDS ORDERED: TRAMADOL HCL 50 MG TAB PO PRN (12:59)
[2020-07-09] MEDS ORDERED: ALBUTEROL SULFATE PO PRN (12:59)
[2020-07-09] MEDS ORDERED: ACETAMINOPHEN 325 MG TABLET PO PRN (12:59)
[2020-07-09] MEDS ORDERED: IPRATROPIUM PO PRN (12:59)
[2020-07-09] MEDS ORDERED: [UNRECOGNIZED DRUG - OTHER] PO PRN (12:59)
[2020-07-09] MEDS: GLUCERNA 1.2 CAL 1,000 ML BOT FT SCH ×3 (13:00→20:53)
[2020-07-09] MEDS ORDERED: IPRATROPIUM BROM 0.5MG/2.5ML IH PRN (13:27)
[2020-07-09] MEDS ORDERED: ALBUTEROL 2.5 MG/3 ML NEB SOL NEB PRN (13:28)
--- NOTE | 2020-07-09 17:33 | P.HP ---
Certification for Inpatient Patient admitted to: Inpatient With expected LOS: >2 Midnights Patient will require the following post-hospital care: None Practitioner: I am a practitioner with admitting privileges, knowledge of patient current condition, hospital course, and medical plan of care. Services: Services provided to patient in accordance with Admission requirements found in Title 42 Section 412.3 of the Code of Federal Regulations Patient History Date of Service: 07/08/20 Reason for admission: Hypotension/ventricular bigeminy History of Present Illness: Patient is a 74-year-old gentleman who came to the hospital with chest discomfort and shortness of breath. Patient was also having ventricular bigeminy on the monitor. Patient has a longstanding history of cardiac disease and has pacemaker defibrillator. This was interrogated. Results pending per Cardiology. Patient states the chest pain was in the anterior chest wall and it was mild but did not radiate. He has also had a nonproductive cough. His troponins are mildly elevated. He was more concerned because he was having some bigeminy. He came into the emergency room for further evaluation. In the emergency room he was found to be hypotensive. Patient was started on IV hydration. His blood pressure improved from 70/52 to 90/50s. Will monitor patient in the intensive care unit. Allergies sulfamethoxazole [From Bactrim] Allergy (Verified 12/06/19 20:11) Itching/Hives/Rash tetanus toxoid, adsorbed Allergy (Verified 12/06/19 20:11) unknown trimethoprim [From Bactrim] Allergy (Verified 12/06/19 20:11) Itching/Hives/Rash Home Medications: Aspirin Chewable [Aspirin Chewable*] 81 mg FT DAILY 11/11/19 Buspirone HCl [Buspar] 10 mg FT BID 03/08/20 Cephalexin [Keflex*] 500 mg FT DAILY 03/08/20 Lisinopril [Zestril] 10 mg FT DAILY 03/08/20 Melatonin 6 mg FT BEDTIME 03/08/20 Memantine HCl [Namenda*] 5 mg FT DAILY 03/08/20 Metoprolol Tartrate [Lopressor*] 75 mg FT BID 03/08/20 Nut.tx.gluc Intol,Lf,Soy/Fiber [Glucerna 1.5 Ben Liquid] 60 ml FT CONT 03/08/20 Nystatin 1 tab FT BID 03/08/20 Quetiapine [Seroquel*] 12.5 mg FT BID 03/08/20 Rivaroxaban [Xarelto*] 20 mg FT DAILY 03/08/20 Sennosides/Docusate Sodium [Senna-Docusate Sodium Tablet] 1 tab FT BID 03/08/20 Terazosin HCl 2 mg FT BEDTIME 03/08/20 Tramadol HCl [Ultram] 50 mg PO Q6HP PRN 5 Days #20 tablet 03/10/20 Acetaminophen 650 mg PO Q6HP PRN 07/08/20 Aspirin [Aspirin EC 81 MG] 81 mg PO DAILY 07/08/20 Furosemide 10 mg PO DAILY 07/08/20 Glucerna 1.2 [Glucerna 1.2*] 1 can PO Q4HR 07/08/20 Ipratropium/Albuterol Sulfate [Iprat-Albut 0.5-3(2.5) mg/3 ml] 1 puff PO Q8HP PRN 07/08/20 Levofloxacin [Levaquin] 500 mg PO DAILY 07/08/20 Lisinopril [Zestril] 20 mg PO DAILY 07/08/20 Melatonin 6 mg PO BEDTIME 07/08/20 Memantine HCl 10 mg PO BID 07/08/20 Metoprolol Tartrate [Lopressor*] 12.5 mg PO DAILY 07/08/20 - Past Medical/Surgical History Has patient received pneumonia vaccine in the past: Yes Diabetic: No -: Cardiomegaly -: Hypertension -: Pacemaker -: HLD -: chf -: Pacemaker -: Knee replacement -: back sx -: elbow sx left -: gtube - Family History parents History Unknown: Yes Notes: none as per pt - Social History Smoking Status: Former smoker Alcohol use: No CD- Drugs: No Caffeine use: No Place of Residence: [place] Review of Systems 10-point ROS is otherwise unremarkable Physical Examination - Vital Signs Temperature: 97.4 F Blood Pressure: 151/89 Pulse: 84 Respirations: 18 Pulse Ox (%): 94 - Physical Exam General: Alert, In no apparent distress, Oriented x3 HEENT: Atraumatic, PERRLA, Mucous membr. moist/pink, EOMI, Sclerae nonicteric Neck: Supple, 2+ carotid pulse no bruit, No LAD, Without JVD or thyroid abnormality Respiratory: Clear to auscultation bilaterally, Normal air movement Cardiovascular: Regular rate/rhythm, Normal S1 S2, Systolic murmur Gastrointestinal: Normal bowel sounds, Soft and benign, Non-distended, No tenderness Musculoskeletal: No clubbing, No tenderness, Swelling Integumentary: No rashes Neurological: Normal gait, Normal speech, Normal strength at 5/5 x4 extr, Normal tone, Sensation intact, Cranial nerves 3-12 intact, Normal affect Lymphatics: No axilla or inguinal lymphadenopathy Assessment & Plan - Problems (Diagnosis) (1) Chest pain, rule out acute myocardial infarction Current Visit: Yes Status: Acute (2) Hypotension Current Visit: Yes Status: Acute (3) Elevated troponin Current Visit: Yes Status: Acute (4) History of diabetes mellitus Current Visit: Yes Status: Acute (5) History of hypertension Current Visit: Yes Status: Acute (6) Ventricular bigeminy Current Visit: Yes Status: Acute - Plan Plan: 1. Hydration 2. Interrogation of pacemaker/defibrillator 3. Cardiac consultation 4. Monitor hemodynamics closely in ICU 5. Echocardiogram 6. Monitor electrolytes 7. Serial troponins and EKG 8. Anti-platelet therapy, anti coagulation, beta-diaz, statin, and O2 as needed 9. Strict blood sugar control 10. GI and DVT prophylaxis Discharge Plan: Home Plan to discharge in: Greater than 2 days - Advance Directives Does patient have a Living Will: No Does patient have a Durable POA for Healthcare: No - Code Status/Comfort Care Code Status Assessed: Yes Code Status: Full Code Critical Care: Yes Time Spent Managing PTS Care (In Minutes): 45
[2020-07-09] MEDS: MELATONIN 3 MG TABLET PO SCH (20:52)
[2020-07-09] MEDS ORDERED: BUSPIRONE HCL 5 MG TABLET FT SCH (21:00)
[2020-07-09] MEDS ORDERED: TERAZOSIN HCL 1 MG CAP FT SCH (21:00)
[2020-07-09] MEDS ORDERED: NYSTATIN FT SCH (21:00)
[2020-07-09] MEDS ORDERED: METOPROLOL TAR 25 MG TAB FT SCH (21:00)
[2020-07-09] MEDS ORDERED: DOCUSATE NA/SENNA CONC 1 TAB FT SCH (21:00)
[2020-07-10] MEDS: GLUCERNA 1.2 CAL 1,000 ML BOT FT SCH (01:00)
[2020-07-10 04:47] LABS: Potassium 3.7 mmol/L (3.5-5.1)
[2020-07-10] MEDS: GLUCERNA SHAKE 237 ML CAN PO SCH ×3 (05:00→13:00)
[2020-07-10] MEDS ORDERED: POTASSIUM CL SA 10 MEQ TAB PO ONE (06:00)
--- NOTE | 2020-07-10 06:05 | P.PN ---
Subjective Date of Service: 07/09/20 Subjective: No new changes, No C/O voiced, Improving Patient states that he has some muscle weakness. 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 But then a week ago he had some upper extremity weakness. He has been able to use a walker and has not been walking with therapy since then. He wants to try to get stronger. He does not know why his muscles keeping weak. Evaluation pending. Review of Systems 10-point ROS is otherwise unremarkable Physical Examination - Vital Signs Temperature: 97.9 F Blood Pressure: 144/72 Pulse: 60 Respirations: 20 Pulse Ox (%): 97 - Physical Exam General: Alert, In no apparent distress, Oriented x3 Respiratory: Clear to auscultation bilaterally, Normal air movement Cardiovascular: Regular rate/rhythm, Normal S1 S2, No murmurs Gastrointestinal: Normal bowel sounds, Soft and benign, Non-distended, No tenderness Musculoskeletal: No clubbing, No swelling, No tenderness Neurological: Normal strength at 5/5 x4 extr, Normal tone, Sensation intact, Cranial nerves 3-12 intact - Studies Medications List Reviewed: Yes Assessment & Plan - Problems (Diagnosis) (1) Chest pain, rule out acute myocardial infarction Current Visit: Yes Status: Acute (2) Hypotension Current Visit: Yes Status: Acute (3) Elevated troponin Current Visit: Yes Status: Acute (4) History of diabetes mellitus Current Visit: Yes Status: Acute (5) History of hypertension Current Visit: Yes Status: Acute (6) Ventricular bigeminy Current Visit: Yes Status: Acute - Plan Plan: 1. Will Hep-Lock IV. Transferred to general medical floor 2. s/p interrogation of pacemaker/defibrillator in ICU; transmitted to pacemaker company from room; awaiting results 3. Cardiac consultation pending 4. Monitor hemodynamics closely in ICU 5. Echocardiogram pending 6. Monitor electrolytes 7. high troponins were fairly stable. No significant elevation. 8. resume cardiac meds 9. Strict blood sugar control 10. Physical therapy evaluation. Check sed rate. 11. GI and DVT prophylaxis Discharge Plan: Home Plan to discharge in: 48 Hours - Advance Directives Does patient have a Living Will: No Does patient have a Durable POA for Healthcare: No - Code Status/Comfort Care Code Status: Full Code Critical Care: No Time Spent Managing PTS Care (In Minutes): 35
[2020-07-10] MEDS: PANTOPRAZOLE 40MG TABLET PO SCH (06:06)
[2020-07-10 08:40] LABS: Absolute Lymphocytes (CBC) 1.8 K/uL (0.7-4.9); Basophils % 0.9 % (0-1.3); Hematocrit 30.9 % (39.6-49.0); Lymphocytes % 30.2 % (15.3-44.8); MPV 8.4 fL (7.6-11.3); RBC Red Blood Cell Count 3.61 M/uL (4.33-5.43)
[2020-07-10] MEDS: MEMANTINE HCL 10 MG TABLET PO SCH (08:56)
[2020-07-10] MEDS: ASPIRIN 81 MG CHEWABLE TABLET PO SCH (08:56)
[2020-07-10] MEDS: lisinopriL 10 MG TAB PO SCH (08:57)
[2020-07-10] MEDS: BUSPIRONE HCL 5 MG TABLET PO SCH ×2 (08:57→20:20)
[2020-07-10] MEDS: FUROSEMIDE 20 MG TABLET PO SCH (08:57)
[2020-07-10] MEDS: DOCUSATE NA/SENNA CONC 1 TAB PO SCH ×2 (08:57→20:27)
[2020-07-10] MEDS: METOPROLOL TAR 25 MG TAB PO SCH ×2 (08:58→20:20)
[2020-07-10] MEDS: CEPHALEXIN 500 MG CAP PO SCH (08:58)
[2020-07-10] MEDS ORDERED: RIVAROXABAN 10 MG TABLET FT SCH (09:00)
[2020-07-10] MEDS ORDERED: MEMANTINE HCL 10 MG TABLET FT SCH (09:00)
[2020-07-10] MEDS ORDERED: RIVAROXABAN 10 MG TABLET PO SCH (09:00)
[2020-07-10] MEDS ORDERED: ASPIRIN 81 MG CHEWABLE TABLET FT SCH (09:00)
[2020-07-10] MEDS ORDERED: lisinopriL 10 MG TAB FT SCH (09:00)
[2020-07-10] MEDS: NYSTATIN PWDR 100000 UNIT/GM TOP SCH ×2 (09:00→20:21)
[2020-07-10] MEDS ORDERED: CEPHALEXIN 500 MG CAP FT SCH (09:00)
--- NOTE | 2020-07-10 12:14 | CON ---
Date of Consultation: 07/10/2020 Reason For Consultation: Shortness of breath and borderline elevated troponin. History Of Present Illness: A 74-year-old gentleman comes into the hospital because of generalized w eakness and shortness of breath, lower extremity edema. No orthopnea. The patient apparently has a pacemaker and an ICD. He is a poor historian, unable to tell me if he had any cardiac history other than just telling me that he has a pacemaker. Past Medical History: Hypertension, dyslipidemia, congestive heart failure, pacemaker, and ICD place ment. Medication: Refer to reconciliation sheet for detailed list. Allergies: SULFA, TETANUS, AND TRIMETHOPRIM. Family History: No premature coronary artery disease or cancer. Review of Systems: All systems reviewed and they were negative except for mentioned in the HPI. Physical Examination: Vital Signs: Temperature 98.6, pulse 73, breathing at 18, blood pressure 136/89, saturating 95% on 2 L. General: This is an elderly male, in no distress. Head and Neck: Pupils are equal, react to light. Intact eye movements. No JVD. No cyanosis. Neck: Supple. Thyroid is not enlarged. Lungs: Positive bilateral air entry with crackles on both bases. No accessory muscle use or muscle retraction. Heart: Regular rate and rhythm. No extra sounds. Abdomen: Soft, nontender. Bowel sounds positive. No organomegaly. No masses or hernia. No rigidi ty or rebound. Extremities: No clubbing, cyanosis. Trace edema. SKIN: No rashes. Neurologic: Alert, awake, oriented x3. No acute focal deficits appreciated. Investigations: Troponin was 0.34 and then 0.32. Creatinine 1.3. White blood cell count 6.1, hemog lobin 10.3. Assessment/plan: 1.Elevated troponin. The patient does not have chest pain. Discussed with the primary hospitalist team and recommend a nuclear stress test. Further evaluate and/or obtain any recent history. The shad lagos said he had a cardiac cath in the past that was negative. 2.Questionable myocardial infarction. There is no chest pain. Trend troponins and obtain echo. 3.Heart failure with acute exacerbation. Recommend IV diuresis. SR/MODL Voice ID: [id number] Report ID: [id number]
--- NOTE | 2020-07-10 13:55 | ECHO ---
HEIGHT: 6 ft 0 in WEIGHT: 193 lb 6 oz DATE OF STUDY: 07/10/[address]: Alexei Dubois MD 2-DIMENSIONAL: YES M.MODE: YES DOPPLER: YES COLOR FLOW: YES TDS: YES PORTABLE: NO DEFINITY: NO BUBBLE STUDY: NO DIAGNOSIS: CHEST PAIN/ DYSPNEA CARDIAC HISTORY: CATHERIZATION: NO SURGERY: NO PROSTHETIC VALVE: NO PACEMAKER: YES MEASUREMENTS (cm) DIASTOLIC (NORMALS) SYSTOLIC (NORMALS) IVSd 1.4 (0.6-1.2) LA Diam 3.7 (1.9-4.0) LVEF 54% LVIDd 3.9 (3.5-5.7) LVIDs 2.8 (2.0-3.5) %FS 27% LVPWd 1.5 (0.6-1.2) Ao Diam 3.1 (2.0-3.7) 2 DIMENSIONAL ASSESSMENT: RIGHT ATRIUM: NORMAL LEFT ATRIUM: NORMAL RIGHT VENTRICLE: PACEMAKER WIRE, DILATED LEFT VENTRICLE: DEPRESSED EJECTION FRACTION TRICUSPID VALVE: MILD TRICUSPID REGURGITATION MITRAL VALVE: NORMAL PULMONIC VALVE: NORMAL AORTIC VALVE: NORMAL PERICARDIAL EFFUSION: NONE AORTIC ROOT: NORMAL LEFT VENTRICULAR WALL MOTION: GLOBAL MILD TO MODERATE HYPOKINESIS. DOPPLER/COLOR FLOW: PULMONARY HYPERTENSION WITH DIASTOLIC DYSFUNCTION. COMMENTS: MILD TO MODERATELY DEPRESSED LEFT VENRICULAR EJECTION FRACTION 35-40%. GLOBAL MILD HYPOKINSIS. DILATED RIGHT VENTRICLE, DEPRESSED RIGHT VENTRICULAR FUNCTION. RIGHT VENTRICLE PACEMAKE WIRE. MILD TRICUSPID REGURGITATION. PULMONARY HYPERTENSION WITH RIGHT VENTRICULAR SYSTOLIC PRESSURE OF 35 PLUS RIGHT ATRIAL PESSSURE. TECHNOLOGIST: JESSICA GASTELUM
[2020-07-10] MEDS ORDERED: GLUCERNA SHAKE 237 ML CAN PO PRN (14:51)
--- NOTE | 2020-07-10 15:33 | P.PN ---
Subjective Date of Service: 07/10/20 Chief Complaint: Hypotension/ventricular bigeminy Subjective: Improving Physical Examination - Vital Signs Temperature: 97.6 F Blood Pressure: 120/69 Pulse: 51 Respirations: 16 Pulse Ox (%): 99 - Physical Exam General: Alert HEENT: Atraumatic Neck: Supple Respiratory: Clear to auscultation bilaterally, Normal air movement Cardiovascular: Normal pulses, Regular rate/rhythm Gastrointestinal: Normal bowel sounds Integumentary: No erythema, No warmth, No cyanosis Neurological: Normal speech, Normal strength at 5/5 x4 extr, Normal tone, Normal affect - Studies Medications List Reviewed: Yes Assessment & Plan Discharge Plan: Intermediate Plan to discharge in: 24 Hours Physician Review Additional Text: Impression: Chest pain with elevated troponin suspect underlying CAD with history of pacemaker defibrillator Diabetes mellitus type 2 Pulmonary hypertension with diastolic CHF Depression GERD Plan: Continue monitor closely. Will have pacemaker defibrillator interrogated. Case discussed with cardiology. Cardiology recommends cardiac stress test to further evaluate. This will be done tomorrow. Will continue with physical therapy. Continue to adjust medications. Obtain echocardiogram to further evaluate. Will monitor closely. Continue lab. Anticipate improvement over the next 24 hr with possible discharge tomorrow. Time Spent Managing Pts Care (In Minutes): 55
[2020-07-10] MEDS: MELATONIN 3 MG TABLET PO SCH (20:20)
[2020-07-10] MEDS: QUETIAPINE 25 MG TAB PO SCH (20:21)
[2020-07-10] MEDS ORDERED: QUETIAPINE 25 MG TAB FT SCH (21:00)
[2020-07-10] MEDS ORDERED: TERAZOSIN HCL 1 MG CAP PO SCH (21:00)
[2020-07-11 04:12] LABS: Basophils % 0.6 % (0-1.3); Hematocrit 30.7 % (39.6-49.0); Lymphocytes % 29.2 % (15.3-44.8); MPV 8.4 fL (7.6-11.3); RBC Red Blood Cell Count 3.58 M/uL (4.33-5.43)
[2020-07-11 04:19] LABS: Potassium 3.8 mmol/L (3.5-5.1)
[2020-07-11] MEDS: PANTOPRAZOLE 40MG TABLET PO SCH (05:51)
[2020-07-11] MEDS ORDERED: REGADENOSON 0.4 MG/5 ML SYR IV ONE (08:20)
[2020-07-11] MEDS: METOPROLOL TAR 25 MG TAB PO SCH (08:30)
[2020-07-11] MEDS: FUROSEMIDE 20 MG TABLET PO SCH (08:47)
[2020-07-11] MEDS: DOCUSATE NA/SENNA CONC 1 TAB PO SCH (08:47)
[2020-07-11] MEDS: ASPIRIN 81 MG CHEWABLE TABLET PO SCH (08:48)
[2020-07-11] MEDS: lisinopriL 10 MG TAB PO SCH (08:48)
[2020-07-11] MEDS: QUETIAPINE 25 MG TAB PO SCH (08:48)
[2020-07-11] MEDS: BUSPIRONE HCL 5 MG TABLET PO SCH (08:48)
[2020-07-11] MEDS: CEPHALEXIN 500 MG CAP PO SCH (08:49)
[2020-07-11] MEDS: MEMANTINE HCL 10 MG TABLET PO SCH (08:49)
[2020-07-11] MEDS ORDERED: POTASSIUM CL SA 10 MEQ TAB PO ONE (09:00)
[2020-07-11] MEDS: NYSTATIN PWDR 100000 UNIT/GM TOP SCH (09:00)
[2020-07-11] MEDS ORDERED: RIVAROXABAN 20 MG TABLET PO SCH (09:00)
--- NOTE | 2020-07-11 11:56 | RAD REPORT ---
EXAM DESCRIPTION: NM - Rest Stress Cardiac Imaging - 07/11/2020 11:30 am CLINICAL HISTORY: Chest pain. COMPARISON: None. TECHNIQUE: The patient was administered approximately 10mCi of Tc 99m Sestamibi prior to resting SPE CT imaging of the heart. The patient was then administered approximately 30 mCi of Tc 99m Sestamibi f ollowing exercise or pharmacologic stress. Multiplanar SPECT images were reviewed. FINDINGS: There is uniformity of radiotracer uptake involving the entire left ventricular myocardiu m on rest and stress images. The left ventricular ejection fraction equals 39% IMPRESSION: Negative for a myocardial perfusion defect
--- NOTE | 2020-07-11 14:34 | P.DS ---
Admission Date: 07/08/20 Discharge Date: 07/11/20 Primary Care Provider: senior living Disposition: TRANSFER TO JAIL Discharge Condition: GOOD Reason for Admission: Hypotension/ventricular bigeminy Consultations: cardiology-Dr. Silvestre Procedures: ECHO: EF 54% LEFT VENTRICULAR WALL MOTION: GLOBAL MILD TO MODERATE HYPOKINESIS. DOPPLER/COLOR FLOW: PULMONARY HYPERTENSION WITH DIASTOLIC DYSFUNCTION. COMMENTS: MILD TO MODERATELY DEPRESSED LEFT VENRICULAR EJECTION FRACTION 35-40%. GLOBAL MILD HYPOKINSIS. DILATED RIGHT VENTRICLE, DEPRESSED RIGHT VENTRICULAR FUNCTION. RIGHT VENTRICLE PACEMAKE WIRE. MILD TRICUSPID REGURGITATION. PULMONARY HYPERTENSION WITH RIGHT VENTRICULAR SYSTOLIC PRESSURE OF 35 PLUS RIGHT ATRIAL PESSSURE. Cardiac Stress test: FINDINGS: There is uniformity of radiotracer uptake involving the entire left ventricular myocardium on rest and stress images. The left ventricular ejection fraction equals 39% IMPRESSION: Negative for a myocardial perfusion defect Medical problem list: Chest pain with elevated troponin suspect underlying CAD with history of pacemaker defibrillator status post negative cardiac stress test Diabetes mellitus type 2 Hypertension Pulmonary hypertension with acute on chronic diastolic CHF Depression with anxiety GERD History of dysphagia and failure to thrive now with feeding tube Chronic anti coagulation therapy suspect with hx of A fib in past now with pacemaker/defibrillator Brief History of Present Illness: 74-year-old male with multiple medical problems presented to the emergency room with chest pain. Patient was admitted for further evaluation. Patient with multiple underlying medical problems. Hospital Course: Patient presented with chest pain and noted elevated troponin. Patient with multiple medical problems including hypertension, diabetes, pulmonary hypertension, diastolic CHF, depression, and GERD. Patient was evaluated by Cardiology. Cardiology recommended cardiac stress test. Cardiac stress test sh owed no stress-induced ischemia. Echocardiogram shows diastolic dysfunction. Patient was treated with diuresis. Pacemaker evaluated. Cardiology recommends no further intervention at this time. Patient currently stable at this time. Patient will continue with 1500 cc per day fluid restriction and low-salt diet. At discharge patient will continue with Lasix 10 mg daily. Other medications include Xarelto 20 mg daily, lisinopril 10 mg daily, to or as this in 2 mg daily, metoprolol 25 mg 1 pill twice daily. Patient will also continue with aspirin 81 mg daily. Patient will return back to the [place] [facility] for further care. Patient with history of diabetes mellitus type 2. Patient not on any type of medication. Patient with history of dysphasia now with PEG tube. Patient will continue with Glucerna 1 can every 4 hr. Other medications to be continued Buspar 10 mg 1 pill twice daily, Namenda 5 mg daily, Seroquel 12.5 mg twice daily. Vital Signs/Physical Exam: Temp Pulse Resp BP Pulse Ox 98 F 73 22 H 120/84 97 07/11/20 12:00 07/11/20 12:00 07/11/20 12:00 07/11/20 12:00 07/11/20 12:00 General: Alert, In no apparent distress, Oriented x3, Cooperative HEENT: Atraumatic Neck: Supple Respiratory: Clear to auscultation bilaterally, Normal air movement Cardiovascular: Normal pulses, Regular rate/rhythm Gastrointestinal: No tenderness, No masses, No rebound, No guarding Neurological: Normal speech, Normal strength at 5/5 x4 extr, Normal tone, Normal affect Laboratory Data at Discharge: WBC 6.9 K/uL (4.3-10.9) 07/11/20 03:41 Hgb 10.2 g/dL (13.6-17.9) L 07/11/20 03:41 Hct 30.7 % (39.6-49.0) L 07/11/20 03:41 Plt Count 167 K/uL (152-406) 07/11/20 03:41 APTT Cancelled 07/09/20 13:00 Sodium 142 mmol/L (136-145) 07/11/20 03:41 Potassium 3.8 mmol/L (3.5-5.1) 07/11/20 03:41 BUN 20 mg/dL (7-18) H 07/11/20 03:41 Creatinine 1.36 mg/dL (0.55-1.3) H 07/11/20 03:41 Glucose 105 mg/dL (74-106) 07/11/20 03:41 Phosphorus 3.0 mg/dL (2.5-4.9) 07/09/20 03:43 Magnesium 2.0 mg/dL (1.8-2.4) 07/11/20 03:41 Total Bilirubin 0.5 mg/dL (0.2-1.0) 07/09/20 03:43 AST 8 U/L (15-37) L 07/09/20 03:43 ALT 7 U/L (12-78) L 07/09/20 03:43 Alkaline Phosphatase 81 U/L (45-117) 07/09/20 03:43 Troponin I 0.32 ng/mL (0.0-0.045) H 07/09/20 03:43 Lipase 70 U/L (73-393) L 07/08/20 09:35 Home Medications: Aspirin Chewable [Aspirin Chewable*] 81 mg FT DAILY 11/11/19 Buspirone HCl [Buspar] 10 mg FT BID 03/08/20 Lisinopril [Zestril] 10 mg FT DAILY 03/08/20 Melatonin 6 mg FT BEDTIME 03/08/20 Memantine HCl [Namenda*] 5 mg FT DAILY 03/08/20 Nystatin 1 tab FT BID 03/08/20 Quetiapine [Seroquel*] 12.5 mg FT BID 03/08/20 Rivaroxaban [Xarelto*] 20 mg FT DAILY 03/08/20 Sennosides/Docusate Sodium [Senna-Docusate Sodium Tablet] 1 tab FT BID 03/08/20 Terazosin HCl 2 mg FT BEDTIME 03/08/20 Tramadol HCl [Ultram] 50 mg PO Q6HP PRN 5 Days #20 tablet 03/10/20 Acetaminophen 650 mg PO Q6HP PRN 07/08/20 Furosemide 10 mg PO DAILY 07/08/20 Glucerna 1.2 [Glucerna 1.2*] 1 can PO Q4HR 07/08/20 Ipratropium/Albuterol Sulfate [Iprat-Albut 0.5-3(2.5) mg/3 ml] 1 puff PO Q8HP PRN 07/08/20 Metoprolol Tartrate [Lopressor*] 25 mg PO BID #60 tab 07/11/20 New Medications: Metoprolol Tartrate [Lopressor*] 25 mg PO BID #60 tab Patient Discharge Instructions: Patient to return back to the [place] [facility]. Continue with current plan of care. Patient presented with chest pain and noted elevated troponin. Patient with multiple medical problems including hypertension, diabetes, pulmonary hypertension, diastolic CHF, depression, and GERD. Patient was evaluated by Cardiology. Cardiology recommended cardiac stress test. Cardiac stress test showed no stress-induced ischemia. Echocardiogram shows diastolic dysfunction. Patient was treated with diuresis. Pacemaker evaluated. Cardiology recommends no further intervention at this time. Patient currently stable at this time. Patient will continue with 1500 cc per day fluid restriction and low-salt diet. At discharge patient will continue with Lasix 10 mg daily. Other medications include Xarelto 20 mg daily, lisinopril 10 mg daily, to or as this in 2 mg daily, metoprolol 25 mg 1 pill twice daily. Patient will also continue with aspirin 81 mg daily. Patient will return back to the [place] [facility] for further care. Patient with history of diabetes mellitus type 2. Patient not on any type of medication. Patient with history of dysphasia now with PEG tube. Patient will continue with Glucerna 1 can every 4 hr. Other medications to be continued Buspar 10 mg 1 pill twice daily, Namenda 5 mg daily, Seroquel 12.5 mg twice daily. Diet: Per PEG tube/Glucerna Activity: Fall precautions Time spent managing pt's care (in minutes): 55
--- NOTE | 2020-07-11 14:42 | P.PN ---
Subjective Date of Service: 07/11/20 Primary Care Provider: shelter Chief Complaint: Hypotension/ventricular bigeminy Subjective: Improving Physical Examination - Vital Signs Temperature: 98 F Blood Pressure: 120/84 Pulse: 73 Respirations: 22 Pulse Ox (%): 97 - Physical Exam General: Alert, Cooperative HEENT: Atraumatic Neck: Supple Respiratory: Clear to auscultation bilaterally, Normal air movement Cardiovascular: Normal pulses, Regular rate/rhythm Gastrointestinal: Normal bowel sounds Neurological: Normal speech, Normal strength at 5/5 x4 extr, Normal tone, Normal affect - Studies Medications List Reviewed: Yes Assessment & Plan Discharge Plan: Snf Plan to discharge in: 24 Hours Physician Review Additional Text: Impression: Chest pain with elevated troponin suspect underlying CAD with history of pacemaker defibrillator status post negative cardiac stress test Diabetes mellitus type 2 Hypertension Pulmonary hypertension with acute on chronic diastolic CHF Depression with anxiety GERD History of dysphagia and failure to thrive now with feeding tube Chronic anti coagulation therapy suspect with hx of A fib in past now with pacem eva/defibrillator Plan: Continue with current medications. This includes medication for hypertension, CHF, depression and GERD. Patient with feeding tube getting nutrition. Cardiac stress tests unremarkable. Waiting for pacemaker defibrillator to be interrogated. Will discuss with Cardiology. Possible discharge to [facility] as early as today if no further cardiac workup required. Time Spent Managing Pts Care (In Minutes): 55
[2020-07-11 17:58] VITALS: O2SAT 93
[2020-07-11 20:09] VITALS: BP 125/71; TEMP 100
--- NOTE | 2020-07-12 08:30 | TREADPHA ---
DX: EVALUATED TROPONIN, CONGESTIVE HEART FAILURE Date of Study: 07/11/2020 Ht: 6' 0 " Wt: 193 lb 6 oz Consulting Physician: MICHELE MEDICATIONS: TYLENOL, PROVENTIL, ASPIRIN, BUSPAR, KEFLEX, LASIX, PRINIVIL, NAMENDA, LOPRESSOR, SEROQUEL, XARELTO, ULTRAM, HYTRIN HISTORY: 74 YEAR OLD MALE WITH ELEVATED TROPONIN. MEDICAL HISTORY: CONGESTIVE HEART FAILURE. PHYSICIAL EXAMINATION: RESTING B.P.: 93/55 RESTING H.R.: 68 RESTING EKG: PACED RHYTHM PROTOCOL: PHARMACOLOGIC EXERCISE TIME: 3:30 B.P. AT PEAK STRESS: 94/60 IMPRESSION: LEXISCAN INJECTED, CARDIOLITE INJECTED PER PROTOCOL. SEE NUCLEAR MEDICINE REPORT. NO SUPRAVENTRICULAR TACHYCARDIA. NO VENTRICULAR TACHYCARDIA. NO CHEST PAIN JUST SHORTNESS OF BREATH. BIGEMINY RHYTHM.
== END 2020-07-11 19:50 | DRG 302 ==
LOC: ER 09:32 → ERHOLD 12:03 → 4TH 07-09 15:38
PROVIDERS: ADMIT Hospitalist; ATTEND Family Medicine
DX: I25.10 Atherosclerotic heart disease of native coronary artery without angina pectoris (principal); I50.33 Acute on chronic diastolic (congestive) heart failure; I11.0 Hypertensive heart disease with heart failure; I95.9 Hypotension, unspecified; F41.8 Other specified anxiety disorders; I48.91 Unspecified atrial fibrillation; K21.9 Gastro-esophageal reflux disease without esophagitis; I27.20 Pulmonary hypertension, unspecified; R79.89 Other specified abnormal findings of blood chemistry; R00.8 Other abnormalities of heart beat; Z88.1 Allergy status to other antibiotic agents; Z88.7 Allergy status to serum and vaccine; Z79.82 Long term (current) use of aspirin; Z79.01 Long term (current) use of anticoagulants; Z79.899 Other long term (current) drug therapy; Z93.1 Gastrostomy status; Z96.659 Presence of unspecified artificial knee joint; Z87.891 Personal history of nicotine dependence; Z95.810 Presence of automatic (implantable) cardiac defibrillator; Z20.828 Contact with and (suspected) exposure to other viral communicable diseases
CPT/HCPCS: 36415; 71045; 78452; 80048; 80053; 80076; 83605; 83690; 83735; 83880; 84100; 84484; 85025; 85652; 85730; 86140; 93005; 93017; 93306; 96361; 96374; 96375; 97110; 97112; 97161; 97530; 99285; A9500; J1644; J1650; J2785; J7030; U0002

== ENCOUNTER 2021-04-18 10:57 | Inpatient (IN) | payer OTHER ==
--- NOTE | 2021-04-18 12:58 | R.PREADM ---
PRE-ADMISSION SCREENING FORM SCREENING DATE AND TIME 04/18/2021 11:11 (CDT) ANTICIPATED REHAB ADMISSION DATE 04/20/2021 REFERRING FACILITY [facility] REFERRAL DATE AND TIME 04/16/2021 05:00 (CDT) REFERRAL ROOM# NIMU 11 ACUTE ADMIT DATE 04/07/2021 Previous Rehabilitation(s): No. 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 Tristin Joy M.D. MR# [id number] NAME RENE CHAMBERLAIN ADDRESS [address] [place] [address] PHONE [facility] [id number] DATE OF 1945 AGE 75 SSN# [id number] GENDER male MARITAL STATUS RACE white PREF. LANGUAGE (IF NON-IRISH) Hungarian ADMIT FROM 01 - Home (private home/apt. board/care, assisted living, [facility], transitional living) PRE-HOSPITAL LIVING SETTING 01 - Home (private home/apt. board/care, assisted living, [facility], transitional living) HOME TYPE AND DETAILS Type of home: single family house # of steps within the residence: 0 # of steps to enter the residence: 0 # of levels in the residence: 1 PRE-HOSPITAL LIVING WITH Alone FAMILY SUPPORT No PRIMARY FAMILY CONTACT NAME Darrel Mendoza PRIMARY FAMILY CONTACT PHONE PRIMARY FAMILY CONTACT RELATIONSHIP unknown IS PRIMARY FAMILY CONTACT AUTH. REP.? no 1ST EMERGENCY CONTACT Darrel Mendoza 1ST CONTACT PHONE 1ST CONTACT RELATIONSHIP unknown IS 1ST CONTACT AUTH. REP.? no PHONE 2ND CONTACT ON ADM.? no PATIENT EMPLOYMENT STATUS Retired (for age) PATIENT EMPLOYER No Employer PAYOR INFORMATION: 1ST PAYOR NAME MEDICARE 1ST PAYOR PHONE 1ST PAYOR INJURY/ILLNESS DUE TO ACCIDENT? 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 No PRIMARY REHAB/ACUTE DIAGNOSIS: thoracic vertebral fracture ONSET DATE 04/07/2021 REHAB IMPAIRMENT CATEGORY (THUY): 04 Traumatic spinal cord injury (TSCI) MEETS 60% rule PRIMARY DIAGNOSIS-RELATED SURGERIES: Emergency Fusion of T6-T12 - performed by Dr Mir on 04/13/2021 RISK FOR COMPLICATIONS: - N/A Injusry/SX to Thoracic Spine - TLSO Acute Hypoxemic respiratory failure acute diastolic heart failure HLD HTN - CAD CAD acute encephalopathy automatic cardioverter/defibrillator present - Arrhythmia hyperlipidemia JUANCHO SUMMARY OF ACUTE HOSPITALIZATION: Pt. is a 75 yo Right-handed white male. On 04/07/2021 he was admitted to [facility] and underwent emergency surgery for thoracic vert ebral fracture (Fusion of T6-T12 ) by Dr Mir. Pre-morbidly, Pt. was independent/mod-I in Transfers Control and Locomotion; and he had good Balance, Safety Awareness, Self-Care, Social Cognition, Sphincter Control, and Communication. Currently, he has deficits of Transfers Control, Balance, Locomotion, Safety Awareness, Self-Care, So cial Cognition, Sphincter Control, and Communication. Pt. is now referred to [facility] for acute in-patient rehabilitation in order to maximize patient's functional independence in activities of daily living, strength, ROM, and mobi lity. Patient has realistic goal of being discharged at assistance level 6-[place] to reside at Home with Fri [facility]. PAST MEDICAL HISTORY HTN HLD CAD MEDICATION ALLERGIES: bactrim tetanus toxoid ENVIRONMENTAL ALLERGIES: None Known - Substance Allergies None Known - Other Allergies None Known CODE STATUS: Full code WEIGHT/HEIGHT/BMI: WEIGHT 6'0 HEIGHT 193 BMI 0.1 DIET: - Diet Type Regular - Diet - Solid Texture Regular - Diet - Liquid Texture Regular - Tube Feed N/A SKIN DIAGRAM: Incision on Back; extent - small; stage - NS(Not Stageable). Treatment - Per Physician's Orders. REVIEW OF SYSTEMS: - Gen Alert and awake Lying in bed No apparent distress Oriented to: person, time, and place - Vital Signs Vital signs stable, afebrile - CVS RRR VITAL SIGNS Temperature: 97.8 F SBP/DBP: 129/71 Pulse: 64 Resp: 21 Vital signs stable, afebrile MEDICATIONS/TREATMENT: Other- See attached MAR (Medication Administration Record). CURRENT SPHINCTER CONTROL: Pre-hospital bladder status: incontinent # of bladder accidents in the last 7 days prior to screenin Pre-hospital bowel status: incontinent # of bowel accidents in the last 7 days prior to screenin CURRENT LOCOMOTION STATUS: distance walked 8 feet DETAILED CURRENT FUNCTIONAL STATUS: - Bladder Bladder control device used: diaper - Bowel Bowel control device used: diaper - Walking score based on distance walked: 1(<=50ft) QI SCORES: - Self-Care A. Eating 04-Supervision or touching assistance B. Oral hygiene 04-Supervision or touching assistance C. Toileting hygiene 03-Partial/moderate assistance E. Shower/bathe self 03-Partial/moderate assistance F. Upper body dressing 03-Partial/moderate assistance G. Lower body dressing 03-Partial/moderate assistance H. Putting on/taking off footwear 02-Substantial/maximal assistance - Mobility A. Roll left and right 03-Partial/moderate assistance B. Sit to lying 03-Partial/moderate assistance C. Lying to sitting on side of bed 03-Partial/moderate assistance D. Sit to stand 03-Partial/moderate assistance E. Chair/[id number]-[id number] transfer 03-Partial/moderate assistance F. Toilet transfer 03-Partial/moderate assistance G. Car transfer 10-Not attempted due to environmental limitations I. Walk 10 feet 88-Not attempted due to medical condition or safety concerns J. Walk 50 feet with two turns 88-Not attempted due to medical condition or safety concerns K. Walk 150 feet 88-Not attempted due to medical condition or safety concerns L. Walking 10 feet on uneven surfaces 88-Not attempted due to medical condition or safety concerns M. 1 step (curb) 88-Not attempted due to medical condition or safety concerns N. 4 steps 88-Not attempted due to medical condition or safety concerns O. 12 steps 88-Not attempted due to medical condition or safety concerns P. Picking up object 88-Not attempted due to medical condition or safety concerns - Bladder and Bowel Bladder continence 4-Always incontinent Bowel continence 3-Always incontinent - Endurance Poor - Balance Poor - Safety Awareness Poor CURRENT FUNC. DEFICITS: Self-Care, Mobility, Endurance, Balance, and Safety Awareness HISTORY OF FALLS. HAS THE PATIENT HAD TWO OR MORE FALLS IN THE PAST YEAR OR ANY FALL WITH INJURY IN T HE PAST YEAR?: Yes PRIOR SURGERY. DID THE PATIENT HAVE MAJOR SURGERY DURING THE 100 DAYS PRIOR TO ADMISSION?: Yes THERAPY NOTES FROM ACUTE CARE: Attached. SPECIAL NEEDS: - Safety Concerns Skin breakdown precautions needed due to skin breakdown risk PRECAUTIONS: - N/A Thoracic Precautions PATIENT NEEDS ACTIVE AND ONGOING THERAPEUTIC INTERVENTION OF MULTIPLE THERAPY DISCIPLINES, INCLUDING: - Orthotics/Prosthetics Orthotic Evaluation. Splinting/Casting. - Dietary and Nutrition Adequate Nutrition. Nutritional Education. Nutritional Supplements. PATIENT NEEDS CLOSE MEDICAL SUPERVISION BY A REHABILITATION PHYSICIAN FOR: Coordination of Treatment Team Post-Op Complications Wound Care PATIENT REQUIRES 24X7 REHAB NURSING FOR MEDICAL AND FUNCTIONAL MGT. OF THE FOLLOWING DEFICITS: Disease Management Medication Management Patient/Family Education Providing Safe Environment Skin Integrity PATIENT REQUIRES INTENSIVE, COORDINATED INTERDISCIPLINARY APPROACH TO REHAB: Arranging Home Equipment/Services Discharge Planning Family Intervention/Training Medical Psychotherapist/Case Management PATIENT REHAB POTENTIAL: Ean CHAMBERLAIN is able and expected to receive 3 hours of individualized therapy daily on at least 5 of ev tonie 7 days Ean GUERREROs prognosis for significant practical improvement within a reasonable period of time appear s Good Expected level of measurable improvement will be of a practical value to Ean CHAMBERLAIN's functional capac ity or adaptations to impairments Has a viable Discharge Plan Medically appropriate; condition is sufficiently stable to participate in intensive rehab program DISCHARGE PLAN: - Estimated Length of Stay (days) 27. - Consensus on plan Discharge plan has been discussed with primary caregiver. Patient/Family is in agreement with the tierra n. Primary caregiver is in agreement with the plan. - Patient/Family Goals Return home independently. ADDITIONAL DISCHARGE COMMENTS: [email or web address] RECOMMENDED CARE LEVEL: IRF RECOMMENDATION DETAILS: Recommended Admission to Comprehensive Rehabilitation Program to Increase Functional [place] SCREENER'S COMPLETENESS CONFIRMATION: - Screening Confirmation The patient data collection on this preadmission screening form is finished PHYSICIANS REVIEW AND ADMISSION DETERMINATION Admit - Based on my review of the Pre-Admission Screening results, in my medical judgment and experie nce, I concur with the findings and recommend admission to [facility], as this patient requires an IRF level of care. SIGNATURE PANEL: Parish Nurse - [electronically] signed by Bethanie Garay Method Consultant on 04/18/2021 at 11:52 (CD T) Clinical Liaison - [electronically] signed by Olamide Cosby OT on 04/18/2021 at 12:21 (CDT) Physician Reviewer - [electronically] signed by Dr. Tristin Joy M.D. on 04/18/2021 at 12:58 (CDT )
--- OUTSIDE RECORDS SUMMARY | 2021-04-18 16:57 | XMS REPORT | Continuity of Care Document ---
:1945 Author Organization [facility] t Address [address] [place] [address] Care Team Providers Name Role Phone SARA MANJARREZ Attending Clinician Unavailable SARA MANJARREZ Admitting Clinician Unavailable Problems Condition Condition Condition Status Onset Resolution [...] 00:00: Medi yoana pocket pocket 00 Center MECHANICAL Condition Active 2015-05-08 Memoria COMPLICATI 7 11:44:02 l ON DUE TO 00:00: [place] AUTOMATIC MECHANICAL 00 IMPLANTABL COMPLICATI E CARDIAC ON DUE TO DEFIBRILLA AUTOMATIC TOR IMPLANTABL E CARDIAC DEFIBRILLA TOR Active 05/04/2015 [facility] CARDIOMYOP Condition Active 2015-05-08 Memoria ATHY 07-08 11:44:02 l 00:00: [place] CARDIOMYOP 00 ATHY Active 07/08/2014 Condition [facility] ASBESTOSIS Condition Active 2015-05-08 Memoria 07-07 11:44:02 l 00:00: [place] ASBESTOSIS 00 Active 07/07/2014 Condition [facility] BODY MASS Condition Active 2015-05-08 Memoria INDEX 07-07 11:44:02 l 37.0-37.9, BODY 00:00: Kameron huang ADULT MASS INDEX 00 37.0-37.9, ADULT Active 07/07/2014 Condition [facility] ATRIOVENTR Condition Active 2015-05-08 Memoria ICULAR 24 11:44:02 l BLOCK, 00:00: Luis COMPLETE ATRIOVENTR 00 ICULAR BLOCK, COMPLETE Active 12/20/2013 Condition [facility] PACEMAKER, Condition Active 2015-05-01 Memoria PERMANENT 03-03 09:14:00 l 00:00: [place] PACEMAKER, 00 PERMANENT Active 03/03/2007 [facility] CORONARY Condition Active 2015-05-08 M emoria ARTERY 11:44:02 l DISEASE CORONARY Cata nn ARTERY DISEASE Active Condition 05/08/2015 Medical Group HYPERTENSI Condition Active 2015-05-08 Memoria ON 11:44:02 l Luis HYPERTENSI ON Active Condition 05/08/2015 Medical Group HYPERLIPID Condition Active 2015-05-08 Memoria EMIA 11:44:02 l [facility] HYPERLIPID EMIA Active Condition 05/08/2015 Medical Group DYSPNEA ON Condition Active 2015-05-08 Memoria EXERTION 11:44:02 l DYSPNEA [place] ON EXERTION Active Condition 05/08/2015 Medical Group History of Past Illness Condition Condition Condition Status Onset Resolution Last Treating Co mments Source Name Details Category Date Date Treatment Clinician Date PRE-OPERAT Condition Inactiv 2015-05-08 2015-05-08 Memoria HAYLEY e 12-20 11:44:02 11:44:02 l CARDIOVASC 00:00: Kameron huang ULRONNY PRE-OPERAT 00 EXAMINATIO HAYLEY N CARDIOVASC ULAR [...] 00 Center ics) s Tetanus Propensi Active 2019-[address] [facility] Vaccines ty to 2-19 [facility] - And adverse 00:00: Medical Toxoid reaction 00 Center s BACTRIM BACTRIM Active Memoria l [place] TETANUS TETANUS Active Memoria TOXOID TOXOID l [place] Social History Social Habit Start Date Stop Date Quantity Comments Source History SDOH [facility] Std Drinks Medica l Center History SDRI [facility] - Alcohol Binge Medical Cassidy ter Sex Assigned At [facility] St kes [facility] Tobacco use and 2020-02-01 2020-02-[address] [facility] Ratna kes - exposure 00:00:00 00:00:00 [facility] Alcohol intake 2020-02-01 2020-02-[address] [facility] Pinky es - 00:00:00 00:00:00 non-drinker of Medical Ce nter alcohol (finding) History SDOH 2019-12-15 2019-12-[address] [facility] - Alcohol Frequency 00:00:00 00:00:00 [facility] Smoking Status Start Date Stop Date Source Former smoker 2020-02-01 00:00:00 2020-02-01 00:00:00 [facility] Medications Ordered Filled Start Stop Current [...] % (perianal Pste excoriatio topical n). paste ceftaroline 2020-0 Yes 600mg Inject [address] [facility] (TEFLARO) 3-05 mg [facility] - MBP 600 mg 00:00: intravenou M edical in 100 mL 00 sly every Cente r NS 12 (twelve) hours. DAPTOmycin 2020-0 Yes 1000mg Q24H Inject [facility] (CUBICIN) 3-04 1,000 mg [facility] - in sodium 00:00: intravenou Me dical chloride 00 sly daily. Cente r (NS) NON-DEHP 50 ML IVPB LOVAZA 1 GM Yes Take one Me moria CAPS 7-13 tab twice l 11:44: daily ZOLOFT 25 Yes one daily Mem oria MG TABS 7-13 l 11:44: TERAZOSIN No Take one Mike richelle HCL 10 MG 7-13 tab daily l CAPS 00:00: TERAZOSIN Yes Take one Mike richelle HCL 10 MG 7-06 tab daily l CAPS 09:14: PRAVASTATIN Yes one by Mike richelle SODIUM 80 7-05 mouth l MG TABS 00:00: daily at [facility] 00 bedtime HYDROCHLORO Yes one daily M emoria THIAZIDE 25 7-01 l MG TABS 00:00: HYDROCHLORO Yes one daily M emoria THIAZIDE 25 7-01 l MG TABS 00:00: PRAVASTATIN Yes Take two Me moria SODIUM 40 6-29 tabs by l MG TABS 11:03: mouth once Herm daily LOTREL Yes Take one Memoria 10-40 MG 6-29 tab daily l CAPS 00:00: SPIRONOLACT No 1 tablet Me moria ONE 25 MG 6-29 daily l TABS 00:00: FUROSEMIDE No one by Memor ia 40 MG TABS 6-29 mouth l 00:00: daily LOTREL -20 Yes one by Mike richelle MG CAPS 6-29 mouth l 00:00: daily SPIRONOLACT No 1 tablet Me moria ONE 25 MG 6-29 daily l TABS 00:00: FUROSEMIDE No one by Memor ia 40 MG TABS 6-29 mouth l 00:00: daily LOTREL Yes Take one Memoria 10-40 MG 6-22 tab daily l CAPS 08:21: [place] 41 LOTREL 2013-10 Yes Take one Memoria 10-40 [...] MG TABS 0-30 DAILY l 00:00: HYDROCHLORO Yes Take one Me moria THIAZIDE 25 9-22 tab daily l MG TABS 09:50: TAMSULOSIN Yes 1 tablet Mem oria HCL 0.4 MG 9-22 at bedtime l CAPS 00:00: LABETALOL Yes Take 1 tab Me moria HCL 200 MG 9-11 by mouth l TABS 00:00: twice daily LABETALOL Yes Take 1 tab Me moria HCL 200 MG 9-11 by mouth l TABS 00:00: twice daily SERTRALINE Yes Take one Mem oria HCL 50 MG 7-09 tab daily l TABS 06:16: LOVAZA 1 GM Yes Take one Me moria CAPS 7-09 tab twice l 06:16: daily LABETALOL Yes Take 1/2 Mike richelle HCL 200 MG 7-09 tab by l TABS 06:16: mouth twice daily PLAVIX 75 No Take one Mike richelle MG TABS 2-24 tab daily l 00:00: (on hold) ASPIRIN 81 Yes Take one Mem oria MG TABS 2-24 tab by l 00:00: mouth Luis every day PLAVIX 75 No Take one Mike richelle MG TABS 2-24 tab daily l 00:00: (on hold) Immunizations Ordered Immunization Filled Immunization Date Status Commen ts Source Name Name Pneumococcal 2020-01-[address] [facility] - Conjugate (Pre[facility]ar) [facility] Vital Signs Vital Name Observation Time Observation Value Comments Source Temperature Oral (F) 2015-05-08 16:44:02 97.8 F [facility] [place] Systolic (mm Hg) 2015-05-08 16:44:02 Mike rial [place] Diastolic (mm Hg) 2015-05-08 16:44:02 Mem orial [place] Heart Rate 2015-05-08 16:44:02 [facility] [place] Weight 2015-05-08 16:44:02 [facility] [place] Weight 2015-05-01 12:43:22 [facility] Temperature Oral (F) 2015-05-01 12:43:22 98.0 F [facility] Systolic (mm Hg) 2015-05-01 12:43:22 Mike rial [place] Diastolic (mm Hg) 2015-05-01 12:43:22 Mem orial Luis Heart Rate 2015-05-01 12:43:22 [facility] Weight 2015-04-24 13:12:52 [facility] [place] Heart Rate 2015-04-24 13:12:52 [facility] Systolic (mm Hg) 2015-04-24 13:12:52 Mike rial Luis Diastolic (mm Hg) 2015-04-24 13:12:52 Mem [facility]rial [place] Temperature Oral (F) 2015-04-24 13:12:52 97.9 F [facility] [place] Weight 2015-04-17 13:21:41 [facility] Weight 2014-10-17 14:47:31 [facility] Temperature Oral (F) 2014-10-17 14:47:31 98.1 F [facility] Systolic (mm Hg) 2014-10-17 14:47:31 Mike rial Luis Diastolic (mm Hg) 2014-10-17 14:47:31 Mem orial Luis Heart Rate 2014-10-17 14:47:31 [facility] Weight 2014-07-18 14:50:00 [facility] [place] Systolic (mm Hg) 2014-07-18 14:50:00 Mike rial Luis Diastolic (mm Hg) 2014-07-18 14:50:00 Mem orial [place] Heart Rate 2014-07-18 14:50:00 [facility] [place] Temperature Oral (F) 2014-07-18 14:50:00 97.9 F [facility] [place] Respitory Rate 2014-07-18 14:50:00 Memori al Luis Weight 2014-07-07 15:11:22 [facility] Systolic (mm Hg) 2014-07-07 15:11:22 Mike rial Luis Diastolic (mm Hg) 2014-07-07 15:11:22 Mem orial [place] Heart Rate 2014-07-07 15:11:22 [facility] [place] Respitory Rate 2014-07-07 15:11:22 Memori al Luis Temperature Oral (F) 2014-07-07 15:11:22 98.7 F [facility] Weight 2013-12-20 17:14:00 [facility] Height 2013-12-20 17:14:00 [facility] Systolic (mm Hg) 2013-12-20 17:14:00 Mike rial [place] Diastolic (mm Hg) 2013-12-20 17:14:00 Mem orial Luis Heart Rate 2013-12-20 17:14:00 [facility] Procedures Procedure Date / Time Performed Performing Clinician [facility] e echocardiogram, complete 2014-07-08 05:00:00 Mem orial Luis Plan of Care Planned Activity Planned Date Details Comments Source Future Scheduled 2020-10-[address] [facility] - Test 00:00:00 (12+) [code = Medical Center DEPRESSION SCREENING (12+)] Future Scheduled 2020-06-[address] [facility] - Test 00:00:00 (#1) [code = Medical Center INFLUENZA VACCINE (#1)] Future Scheduled 2006-05-[address] [facility] - Test 00:00:00 WELLNESS (YEAR 2 or Medical Center FIRST YEAR if no IPPE) [code = MEDICARE ANNUAL WELLNESS (YEAR 2 or FIRST YEAR if no IPPE)] Future Scheduled 1993 SHINGLES VACCINES ([address] [facility] - Test 00:00:00 of 2) [code = Medical Center SHINGLES VACCINES (1 of 2)] Future Scheduled 1962 DTAP/TDAP/TD VACCINES [facility] Test 00:[facility]:00 (1 - Tdap) [code = Medical C enter DTAP/TDAP/TD VACCINES (1 - Tdap)] Future Scheduled 1961 HEPATITIS C [facility]CRE[facility]ING [facility] 00:[facility]:00 [code = HEPATITIS C Medical Center SCREENING] Encounters Start End Encounter Admission Attending Care Care Encounter Source Date/Time Date/Time Type Type Clinicians Facility Department ID 2019-12-10 Inpatient [facility] MED 0045 [facility] W 20:44:00 Results Test Description Test Time Test [...] bacilli (test code = 994) seen POCT-GLUCOSE [id number] 18:11:00 Test Item Value Reference Range Interpretation Comments POC-GLUCOSE METER 112 mg/dL 70-110 H : TESTED A T [facility] 6720 (BEAKER) (test code = [facility], 1538) 68445: Printing Specialist/Techni lars ID = [id number] for HE RNANDEZ, LISBET POCT-GLUCOSE [id number] 13:57:00 Test Item Value Reference Range Interpretation Comments POC-GLUCOSE METER 128 mg/dL 70-110 H : TESTED A T [facility] 6720 (BEAKER) (test code = [facility], 1538) 70272: Printing Specialist/Techni lars ID = [id number] for HE RNANDEZ, LISBET [id number] 05:52:00 Test Item Value Reference Range Interpretation Comments MAGNESIUM (BEAKER) (test code = 2.1 mg/dL 1.6-2.6 627) Printing Specialist ID - PIAYA LBASIC METABOLIC [id number] 05:52:00 Test Item Value Reference Range Interpretation [...] S NOT APPLICABLE FOR DIALYSIS PATIEN TS. Printing Specialist ID - PIAYA LCBC (HEMOGRAM ONLY)2020-01-27 05:45:00 [...] CELLS (BEAKER) (test code = 413) POCT-GLUCOSE [id number] 03:55:00 Test Item Value Reference Range Interpretation Comments POC-GLUCOSE METER 114 mg/dL 70-110 H : TESTED A T [facility] 6720 (BEAKER) (test code = [facility], 1538) 00940: Printing Specialist/Techni lars ID = [id number] for MICHELLE MATHIS POCT-GLUCOSE [id number] 18:25:00 Test Item Value Reference Range Interpretation Comments POC-GLUCOSE METER 88 mg/dL 70-110 : TESTED A T [facility] 6720 (BEAKER) (test code = [facility], 1538) 55559: Printing Specialist/Techni lars ID = [id number] for CRISTIN BROOKS POCT-GLUCOSE [id number] 12:51:00 Test Item Value Reference Range Interpretation Comments POC-GLUCOSE METER 89 mg/dL 70-110 : TESTED A T [facility] 6720 (BEAKER) (test code = [facility], 1538) 78585: Printing Specialist/Techni lars ID = [id number] for NÉSTORLISBET LICONA BASIC METABOLIC [id number] 06:36:00 Test Item Value Reference Range Interpretation [...] S NOT APPLICABLE FOR DIALYSIS PATIEN TS. Printing Specialist ID - LMCBC (HEMOGRAM ONLY)2020-01-26 06:35:00 Test [...] 0-0 (BEAKER) (test code = 413) POCT-GLUCOSE [id number] 00:29:00 Test Item Value Reference Range Interpretation Comments POC-GLUCOSE METER 106 mg/dL 70-110 : TESTED A T [facility] 6720 (BEAKER) (test code [facility], = 1538) 40411: Printing Specialist/Techni lars ID = [id number] for CARLOS WHITE TROPONIN [id number] 18:42:00 Test Item Value Reference Range Interpretation [...] failure, acidosis, acute neurological disease, and persistent tachyarrhythmia.Printing Specialist ID - DBPOCT-GLUCOSE METER 2020-01-25 15:50:00 Test Item Value Reference Range Interpretation Comments POC-GLUCOSE METER 98 mg/dL 70-110 : TESTED A T [facility] 6720 (BEAKER) (test code = [facility], 1538) 40593: Printing Specialist/Techni lars ID = [id number] for DANIELLE DIAZ Lyn POCT-GLUCOSE [id number] 12:27:00 Test Item Value Reference Range Interpretation Comments POC-GLUCOSE METER 90 mg/dL 70-110 : TESTED A T [facility] 6720 (BEAKER) (test code = [facility], 1538) 14074: Printing Specialist/Techni lars ID = [id number] for DANIELLE HDIAZ TROPONIN [id number] 09:18:00 Test Item Value Reference Range Interpretation [...] failure, acidosis, acute neurological disease, and persistent tachyarrhythmia.Printing Specialist ID - ADAMARIS MCBC W/PLT COUNT & AUTO [id number] 06:21:00 Test Item Value Reference Range Interpretation [...] (BEAKER) (test code = 2801) BASIC METABOLIC [id number] 06:09:00 Test Item Value Reference Range Interpretation [...] hemolyzed GLUCOSE RANDOM 116 mg/dL 70-105 H (NICOLEAKER) (test code = 652) CALCIUM (BEAKER) 9.1 mg/dL 8.4-10.2 (test code = 697) EGFR (BEAKER) (test 78 mL/min/1.73 ESTIMA NINA GFR IS code = 1092) sq m NOT ACCURATE CREATININE CLEARANCE IN PREDICTING GLOMERULAR FILTRATION RATE . ESTIMATED GFR I S NOT APPLICABLE FOR DIALYSIS PATIEN TS. Printing Specialist ID - ADAMARIS MCREATINE KINASE (CK)2020-01-25 06:09:00 Test Item Value Reference Range Interpretation Comments CREATINE KINASE TOTAL (HAYDEN) (test 30 U/L 29-200 code = 380) Printing Specialist ID - ADAMARIS MRAD, CHEST, 1 VIEW, NON [id number] 01:06:00Reason for exam:->r/o ptxShould this be performed [...] Signed: Nilton Butterfieldeport Verified Date/Time: 01/25/2020 01:06:33 KOTROPONISeven [id number] 00:53:00 Test Item Value Reference Range Interpretation Comments TROPONIN I (HAYDEN) (test code = 0.06 ng/mL 0.00-0.03 H [...] failure, acidosis, acute neurological disease, and persistent tachyarrhythmia.Printing Specialist ID - [id number] 00:41:00 Test Item Value Reference Range Interpretation Comments GLUCOSE RANDOM (BEAKER) (test code 139 mg/dL 70-105 H = 652) Printing Specialist ID - [id number], CHEST, 1 VIEW, NON [id number] 16:33:00Reason for exam:->r/o ptxShould this be performed [...] Gregory Verified Date/Time: 01/24/2020 16:33:08 Reading Location: [address] Radiology Reading Room POCT-GLUCOSE [id number] 15:59:00 Test Item Value Reference Range Interpretation Comments POC-GLUCOSE METER 130 mg/dL 70-110 H : TESTED A T [facility] 6720 (BEAKER) (test code = [facility], 1538) 40957: Printing Specialist/Techni lars ID = [id number] for BA TTAD, TODD POCT-GLUCOSE [id number] 05:13:00 Test Item Value Reference Range Interpretation Comments POC-GLUCOSE METER 89 mg/dL 70-110 : TESTED A T [facility] 6720 (BEAKER) (test code = [facility], 1538) 99615: Printing Specialist/Techni lars ID = [id number] for MSIB I, MNCEDISI [id number] 03:36:00 Test Item Value Reference Range Interpretation Comments MAGNESIUM (BEAKER) (test code = 2.3 mg/dL 1.6-2.6 627) Printing Specialist ID - ADAMARIS MBASIC METABOLIC [id number] 03:36:00 Test Item Value Reference Range Interpretation [...] S NOT APPLICABLE FOR DIALYSIS PATIEN TS. Printing Specialist ID - ADAMARIS MCBC (HEMOGRAM ONLY)2020-01-24 03:08:00 [...] 0-0 (BEAKER) (test code = 413) BLOOD [id number] 19:00:00 Test Item Value Reference Range Interpretation [...] 0-0 (BEAKER) (test code = 413) POCT-GLUCOSE [id number] 18:00:00 Test Item Value Reference Range Interpretation Comments POC-GLUCOSE METER 119 mg/dL 70-110 H : TESTED A T [facility] 6720 (BEAKER) (test code = [place], 1538) 33845: Printing Specialist/Techni lars ID = [id number] for WILLIS OREILLY POCT-GLUCOSE [id number] 12:30:00 Test Item Value Reference Range Interpretation Comments POC-GLUCOSE METER 119 mg/dL 70-110 H : TESTED A T [facility] 6720 (BEAKER) (test code = [facility], 1538) 11384: Printing Specialist/Techni lars ID = [id number] for WILLIS OREILLY POCT-GLUCOSE [id number] 06:24:00 Test Item Value Reference Range Interpretation Comments POC-GLUCOSE METER 115 mg/dL 70-110 H : TESTED A T [facility] 6720 (BEAKER) (test code = [facility], 153) 64437: Printing Specialist/Techni lars ID = [id number] for PIERRE DEL ROSARIO CBC (HEMOGRAM ONLY)2020-01-22 [...] 0-0 (BEAKER) (test code = 413) POCT-GLUCOSE [id number] 23:58:00 Test Item Value Reference Range Interpretation Comments POC-GLUCOSE METER 128 mg/dL 70-110 H : TESTED A T [facility] 6720 (BEAKER) (test code = [facility], 1538) 60565: Printing Specialist/Techni lars ID = [id number] for PIERRE DEL ROSARIO POCT-GLUCOSE [id number] 18:10:00 Test Item Value Reference Range Interpretation Comments POC-GLUCOSE METER 100 mg/dL 70-110 : TESTED A T [facility] 6720 (BEAKER) (test code = [facility], 153) 38214: Printing Specialist/Techni lars ID = [id number] for AG ROBINS FUNGUS CULTURE + [id number] 16:25:00 Test Item Value Reference Range Interpretation Comments CULTURE (BEAKER) (test No fungus isolated in code = 1095) 28 days FUNGUS SMEAR (BEAKER) No fungi seen (test code = 1406) POCT-GLUCOSE [id number] 12:09:00 Test Item Value Reference Range Interpretation Comments POC-GLUCOSE METER 119 mg/dL 70-110 H : TESTED A T [facility] 6720 (BEAKER) (test code = [facility], 153) 02902: Printing Specialist/Techni lars ID = [id number] for AG ROBINS BODY FLUID CULTURE + GRAM [id number] 11:52:00 Test Item Value Reference Range Interpretation Comments CULTURE (BEAKER) (test code No growth = 1095) GRAM STAIN RESULT (BEAKER) <1+ WBCs (test code = 1123) GRAM STAIN RESULT (BEAKER) No organisms seen (test code = 71434) POCT-GLUCOSE [id number] 07:22:00 Test Item Value Reference Range Interpretation Comments POC-GLUCOSE METER 122 mg/dL 70-110 H : TESTED A T [facility] 6720 (BEAKER) (test code = [facility], 153) 16947: Printing Specialist/Techni lars ID = [id number] for DE NNYUSEF VILLEDA POCT-GLUCOSE [id number] 06:45:00 Test Item Value Reference Range Interpretation Comments POC-GLUCOSE METER 103 mg/dL 70-110 : TESTED A T [facility] 6720 (BEAKER) (test code = [facility], 153) 98504: Printing Specialist/Techni lars ID = [id number] for MS IBI, MNCEDISI BASIC METABOLIC [id number] 05:40:00 Test Item Value Reference Range Interpretation [...] S NOT APPLICABLE FOR DIALYSIS PATIEN TS. Printing Specialist ID - PIAYA LCBC (HEMOGRAM ONLY)2020-01-21 05:14:00 [...] = 413) RAD, CHEST, 1 VIEW, NON [id number] 04:32:00Reason for exam:->chfShould this be performed at [...] [place] Verified Date/Time: 01/21/2020 04:32:05 POCT-GLUCOSE [id number] 23:29:00 Test Item Value Reference Range Interpretation Comments POC-GLUCOSE METER 125 mg/dL 70-110 H : TESTED A T [facility] 6720 (BEAKER) (test code = [facility], 153) 12532: Printing Specialist/Techni lars ID = [id number] for JUSTINA CHAU POCT-GLUCOSE [id number] 13:27:00 Test Item Value Reference Range Interpretation Comments POC-GLUCOSE METER 122 mg/dL 70-110 H : TESTED A T [facility] 6720 (BEAKER) (test code = [facility], 1538) 37456: Printing Specialist/Techni lars ID = [id number] for DE YUSEF JUAREZ POCT-GLUCOSE [id number] 09:59:00 Test Item Value Reference Range Interpretation Comments POC-GLUCOSE METER 141 mg/dL 70-110 H : TESTED A T [facility] 6720 (BEAKER) (test code = [facility], 153) 31900: Printing Specialist/Techni lars ID = [id number] for PIERRE ZAVALETA [id number] 06:01:00 Test Item Value Reference Range Interpretation [...] for patients wiht mechanical heart valves.HEPATIC FUNCTION [id number] 05:38:00 Test Item Value Reference Range Interpretation [...] (test code = 23 U/L 6-55 347) Printing Specialist ID - ADAMARIS MBASIC METABOLIC [id number] 05:38:00 Test Item Value Reference Range Interpretation [...] S NOT APPLICABLE FOR DIALYSIS PATIEN TS. Printing Specialist ID - ADAMARIS [facility] (HEMOGRAM ONLY)2020-01-20 05:20:00 Test Item Value Reference [...] 0-0 (BEAKER) (test code = 413) POCT-GLUCOSE [id number] 00:05:00 Test Item Value Reference Range Interpretation Comments POC-GLUCOSE METER 130 mg/dL 70-110 H : TESTED A T [facility] 6720 (BEAKER) (test code = [place], 1538) 69422: Printing Specialist/Techni lars ID = [id number] for PIERRE DEL ROSAROI [id number] 16:41:00Medical Cytology Report Case: [id number] Authorizing Provider: Sara Manjarrez MD Collected: 01/18/2020 04:20 PM Ordering Location: [address] Received: 01/19/2020 09:12 AM Pathologist: Samra Coley MD Specimen: Pleural, Left PLEURAL, LEFT,FLUID (CYTOSPINS): - NEGATIVE FOR MALIGNANCY - INCREASED NEUTROPHILS PRESENT Signing Pathol ogist Direct Phone Line: [phone] signed by Samra Coley MD on 01/19/2020 at 4:41 [id number] pleural effusion; admitted on 01/17/2020 w/ history of HTN, HLD, CAD, obesity, SSS (pacemaker dependent), chronic HFrEF s/p Bi-V ICD (upgrade 2014) who presents from [facility] after aspiration event and for replacement of his pacemakerLEFT PLEURAL FLUIDReceived 800 ml brown fluidPrepared 4 cytospinsCollected: [id number]: [id number] [facility], Department of Pathology, [address] [place] [address], [facility] [place], [facility] of [facility]ology, [address] [place] [address], [facility] [place], Department of Pathology, [address] [place] [address], A/S, [id number] 12:40:00CELL COUNTLaterality?->LeftReason for exam:->PLEURAL EFFUSIONShould this be performed at the bedside?->YesLabs to be Ordered:- >Body Fluid Culture (w/Gram Stain, C\T\S)Labs to be Ordered:->CytologyLabs to be Ordered:->Fungal CultureLabs to be Ordered:->Glucose+LDH+ProteinLabs to beOrdered:->Other (please add comment)FINAL REPORT Exam: Ultrasound guided thoracentesis Clinical History: Left-sided Pleural Effusion Dice Spotter: Cassidy Parra PA-C Supervising Physician: Marvin Thompson [...] Thompson MDReportVerified Date/Time: 01/19/2020 12:40:39 Reading Location: [facility] [id number] Ultrasound Reading Room E lectronically signed by: MARVIN THOMPSON on 01/19/2020 12:40 PMAPTT 2020-01-19 12:39:00 Test Item Value Reference Range Interpretation Comments PARTIAL THROMBOPLASTIN TIME 53.1 seconds 22.5-36.0 H (BEAKER) (test code = 760) CT, CHEST, WITHOUT [id number] 12:17:00FINAL REPORT CT Chest without contrast History: [...] George MDReport Verified Date/Time: 01/19/202012:17:48 Reading Location: [facility] Reading Room POCT-GLUCOSE [id number] 06:13:00 Test Item Value Reference Range Interpretation Comments POC-GLUCOSE METER 128 mg/dL 70-110 H : TESTED A T [facility] 6720 (BEAKER) (test code = [place], 1538) 39582: Printing Specialist/Techni lars ID = [id number] for RONY MTZ [id number] 05:43:00 Test Item Value Reference Range Interpretation Comments MAGNESIUM (BEAKER) (test code = 1.9 mg/dL 1.6-2.6 627) Printing Specialist ID - ADAMARIS MBASIC METABOLIC [id number] 05:43:00 Test Item Value Reference Range Interpretation [...] S NOT APPLICABLE FOR DIALYSIS PATIEN TS. Printing Specialist ID - ADAMARIS MHEPATIC FUNCTION [id number] 05:43:00 Test Item Value Reference Range Interpretation [...] (test code = 23 U/L 6-55 347) Printing Specialist ID - ADAMARIS MCREATINE KINASE (CK)2020-01-19 05:43:00 Test Item Value Reference Range Interpretation Comments CREATINE KINASE TOTAL (BEAKER) (test 22 U/L 29-200 L code = 380) Printing Specialist ID - ADAMARIS MC-REACTIVE [id number] 05:43:00 Test Item Value Reference Range Interpretation Comments C-REACTIVE PROTEIN (BEAKER) (test 9.08 mg/dL 0.00-0.50 H code = 676) Printing Specialist ID - ADAMARIS [facility]BC (HEMOGRAM ONLY)2020-01-19 05:24:00 [...] WBC 0-0 (BEAKER) (test code = 413) [id number] 05:21:00 Test Item Value Reference Range Interpretation [...] INR is2.5-3.5 for patients wiht mechanical heart valves.[id number] 23:47:00 Test Item Value Reference Range Interpretation Comments PARTIAL THROMBOPLASTIN TIME 59.5 seconds 22.5-36.0 H (BEAKER) (test code = 760) POCT-GLUCOSE [id number] 23:37:00 Test Item Value Reference Range Interpretation Comments POC-GLUCOSE METER 128 mg/dL 70-110 H : TESTED A T [facility] 6720 (BEAKER) (test code = [facility], 1538) 27[address]: Printing Specialist/Techni lars ID = [id number] for URONY SADLER BODY FLUID CELL COUNT WITH [id number] 18:12:00 Test Item Value Reference Range Interpretation Comments APPEARANCE FLUID (BEAKER) Slightly Cloudy Clear A (test code = 510) COLOR FLUID (BEAKER) (test Juliette Colorless, Straw A code = 511) RBC FLUID (BEAKER) (test 56301 /cu mm <=1 H code = 513) [...] Tube (BEAKER) (test code = 2873) POCT-GLUCOSE [id number] 17:51:00 Test Item Value Reference Range Interpretation Comments POC-GLUCOSE METER 125 mg/dL 70-110 H : TESTED A T [facility] 6720 (BEAKER) (test code = [place], 1538) [address]: Printing Specialist/Techni lars ID = [id number] for AG ROBINS [id number] 17:20:00 Test Item Value Reference Range Interpretation Comments PARTIAL THROMBOPLASTIN TIME 35.5 seconds 22.5-36.0 (BEAKER) (test code = 760) RAD, CHEST, 1 VIEW, NON [id number] 16:12:00Reason for exam:->post left sided thoracentesisShould this [...] Alvaro Huertaort Verified Date/Time: 01/18/2020 16:12:43 POCT-GLUCOSE [id number] 12:20:00 Test Item Value Reference Range Interpretation Comments POC-GLUCOSE METER 107 mg/dL 70-110 : TESTED A T [facility] 6720 (BEAKER) (test code = [place], 1538) [address]: Printing Specialist/Techni lars ID = [id number] for AG ROBINS, CHEST, 1 VIEW, NON [id number] 05:28:00Reason for exam:->PLEURAL EFFUSIONShould this be performed [...] to the upper abdomen. Signed: Hiram Burton MDRort Verified Date/Time: 01/18/2020 05:28:26 CREATINE KINASE (CK)2020-01-18 04:58:00 Test Item Value Reference Range Interpretation Comments CREATINE KINASE TOTAL (BEAKER) (test 35 U/L 29-200 code = 380) Printing Specialist ID - ADAMARIS MLACTATE DEHYDROGENASE (LDH)2020-01-18 04:58:00 Test Item Value Reference Range Interpretation Comments LACTATE DEHYDROGENASE (BEAKER) (test 145 U/L 125-220 code = 635) Printing Specialist ID - ADAMARIS MBASIC METABOLIC [id number] 04:58:00 Test Item Value Reference Range Interpretation [...] S NOT APPLICABLE FOR DIALYSIS PATIEN TS. Printing Specialist ID - ADAMARIS MHEPATIC FUNCTION [id number] 04:58:00 Test Item Value Reference Range Interpretation [...] (test code = 24 U/L 6-55 347) Printing Specialist ID - ADAMARIS [id number] 04:53:00 Test Item Value Reference Range Interpretation [...] 0-0 (BEAKER) (test code = 413) POCT-GLUCOSE [id number] 00:46:00 Test Item Value Reference Range Interpretation Comments POC-GLUCOSE METER 107 mg/dL 70-110 : TESTED A T [facility] 6720 (BEAKER) (test code [facility], = 1538) [address]59[address]: Printing Specialist/Techni lars ID = [id number] for SAQIB BAKER [id number] 21:46:00 Test Item Value Reference Range Interpretation Comments PARTIAL THROMBOPLASTIN TIME 44.2 seconds 22.5-36.0 H (BEAKER) (test code = 760) Prior to initiating heparinPLATELET [id number] 21:38:00 Test Item Value Reference Range Interpretation Comments PLATELET COUNT (BEAKER) (test 168 K/CU MM 150-450 code = 756) Printing Specialist ID - 6000POCT-GLUCOSE [id number] 18:53:00 Test Item Value Reference Range Interpretation Comments POC-GLUCOSE METER 119 mg/dL 70-110 H : TESTED A T [facility] 6720 (BEAKER) (test code = [facility], 1538) 43184: Printing Specialist/Techni lars ID = [id number] for WILLIS OREILLY FUNGUS CULTURE + [id number] 17:59:00 Test Item Value Reference Range Interpretation Comments CULTURE (BEAKER) (test No fungus isolated in code = 1095) 28 days FUNGUS SMEAR (BEAKER) No fungi seen (test code = 1406) BLOOD [id number] 15:00:00 Test Item Value Reference Range Interpretation Comments CULTURE (BEAKER) (test No growth in 5 days code = 1095) BLOOD [id number] 15:00:00 Test Item Value Reference Range Interpretation Comments CULTURE (BEAKER) (test No growth in 5 days code = 1095) POCT-GLUCOSE [id number] 12:40:00 Test Item Value Reference Range Interpretation Comments POC-GLUCOSE METER 162 mg/dL 70-110 H : TESTED A T [facility] 6720 (BEAKER) (test code = [facility], 1538) 648[address]: Printing Specialist/Techni lars ID = [id number] for ZAC REJI COBURNESTE POCT-GLUCOSE [id number] 06:25:00 Test Item Value Reference Range Interpretation Comments POC-GLUCOSE METER 152 mg/dL 70-110 H : TESTED A T [facility] 6720 (BEAKER) (test code = [facility], 1538) 58860: Printing Specialist/Techni lars ID = [id number] for JAMAL RAINALISBET CALCIUM, [id number] 05:12:00 Test Item Value Reference Range Interpretation Comments CALCIUM IONIZED (BEAKER) (test 1.24 mmol/L 1.12-1.27 code = 698) PH, BLOOD (BEAKER) (test code = 7.53 1810) [id number] 04:42:00 Test Item Value Reference Range Interpretation Comments PHOSPHORUS (BEAKER) (test code = 2.9 mg/dL 2.3-4.7 604) Printing Specialist ID - TRAN [id number] 04:42:00 Test Item Value Reference Range Interpretation Comments MAGNESIUM (BEAKER) (test code = 2.2 mg/dL 1.6-2.6 627) Printing Specialist ID - TRAN WCOMPREHENSIVE METABOLIC [id number] 04:42:00 Test Item Value Reference Range Interpretation [...] S NOT APPLICABLE FOR DIALYSIS PATIEN TS. Printing Specialist ID - TRAN [id number] 04:41:00 Test Item Value Reference Range Interpretation Comments PARTIAL THROMBOPLASTIN TIME 72.3 seconds 22.5-36.0 H (BEAKER) (test code = 760) CBC W/PLT COUNT & AUTO [id number] 04:27:00 Test Item Value Reference Range Interpretation [...] 0-1 PERCENT (BEAKER) (test code = 2801) [id number] 23:27:00 Test Item Value Reference Range Interpretation Comments MAGNESIUM (BEAKER) 2.3 mg/dL 1.6-2.6 Specimen slightly (test code = 627) hemolyzed Printing Specialist ID - PIAYA [id number] 23:27:00 Test Item Value Reference Range Interpretation Comments POTASSIUM (BEAKER) 3.5 meq/L 3.5-5.1 Specimen slightly (test code = 379) hemolyzed Printing Specialist ID - PIAYA LPOCT-GLUCOSE [id number] 22:08:00 Test Item Value Reference Range Interpretation Comments POC-GLUCOSE METER 137 mg/dL 70-110 H : TESTED A T [facility] 6720 (BEAKER) (test code = [facility], 153) 28688: Printing Specialist/Techni lars ID = [id number] for MACIEJ BERRY POCT-GLUCOSE [id number] 18:25:00 Test Item Value Reference Range Interpretation Comments POC-GLUCOSE METER 138 mg/dL 70-110 H : TESTED A T [facility] 6720 (BEAKER) (test code = [facility], 1538) 95349: Printing Specialist/Techni lars ID = [id number] for ZAC RNANDEZ, LISBET BLOOD [id number] 18:00:00 Test Item Value Reference Range Interpretation Comments CULTURE (BEAKER) (test No growth in 5 days code = 1095) BLOOD [id number] 18:00:00 Test Item Value Reference Range Interpretation Comments CULTURE (BEAKER) (test No growth in 5 days code = 1095) POCT-GLUCOSE [id number] 12:30:00 Test Item Value Reference Range Interpretation Comments POC-GLUCOSE METER 165 mg/dL 70-110 H : TESTED A T [facility] 6720 (BEAKER) (test code = [facility], 1538) 40771: Printing Specialist/Techni lars ID = [id number] for ZAC RNANDEZ, LISBET CBC W/PLT COUNT & AUTO [id number] 05:53:00 Test Item Value Reference Range Interpretation [...] (BEAKER) (test code = 2801) COMPREHENSIVE METABOLIC [id number] 05:32:00 Test Item Value Reference Range Interpretation [...] S NOT APPLICABLE FOR DIALYSIS PATIEN TS. Printing Specialist ID - TRAN [id number] 05:25:00 Test Item Value Reference Range Interpretation Comments PHOSPHORUS (BEAKER) (test code = 3.7 mg/dL 2.3-4.7 604) Printing Specialist ID - TRAN [id number] 05:25:00 Test Item Value Reference Range Interpretation Comments MAGNESIUM (BEAKER) (test code = 2.2 mg/dL 1.6-2.6 627) Printing Specialist ID - TRAN WB-TYPE NATRIURETIC FACTOR (BNP)2019-12-29 05:14:00 Test Item Value Reference Range Interpretation Comments B-TYPE NATRIURETIC PEPTIDE (BEAKER) 562 pg/mL 0-100 H (test code = 700) Printing Specialist ID - TRAN [id number] 05:02:00 Test Item Value Reference Range Interpretation Comments PARTIAL THROMBOPLASTIN TIME 70.5 seconds 22.5-36.0 H (BEAKER) (test code = 760) CALCIUM, [id number] 04:39:00 Test Item Value Reference Range Interpretation Comments CALCIUM IONIZED (BEAKER) (test 1.19 mmol/L 1.12-1.27 code = 698) PH, BLOOD (BEAKER) (test code = 7.50 1810) [id number] 01:00:00 Test Item Value Reference Range Interpretation Comments POTASSIUM (BEAKER) 3.2 meq/L 3.5-5.1 L Specimen slightly (test code = 379) hemolyzed Printing Specialist ID - BSPOCT-GLUCOSE [id number] 00:50:00 Test Item Value Reference Range Interpretation Comments POC-GLUCOSE METER 130 mg/dL 70-110 H : TESTED A T [facility] 6720 (BEAKER) (test code = [facility], 1538) 42526: Printing Specialist/Techni lars ID = [id number] for MACIEJ BERRY POCT-GLUCOSE [id number] 19:07:00 Test Item Value Reference Range Interpretation Comments POC-GLUCOSE METER 145 mg/dL 70-110 H : TESTED A T [facility] 6720 (BEAKER) (test code = [facility], 1538) 05542: Printing Specialist/Techni lars ID = [id number] for CAROL ANN OSEGUERA BASIC METABOLIC [id number] 17:36:00 Test Item Value Reference Range Interpretation [...] S NOT APPLICABLE FOR DIALYSIS PATIEN TS. Printing Specialist ID - [id number] 17:28:00 Test Item Value Reference Range Interpretation Comments PARTIAL THROMBOPLASTIN TIME 87.7 seconds 22.5-36.0 H (BEAKER) (test code = 760) [id number] 13:09:00 Test Item Value Reference Range Interpretation Comments PARTIAL THROMBOPLASTIN TIME 84.3 seconds 22.5-36.0 H (BEAKER) (test code = 760) BLOOD [id number] 13:00:00 Test Item Value Reference Range Interpretation Comments CULTURE (BEAKER) (test No growth in 5 days code = 1095) POCT-GLUCOSE [id number] 12:25:00 Test Item Value Reference Range Interpretation Comments POC-GLUCOSE METER 158 mg/dL 70-110 H : [facility] (BEAKER) (test code = [place] [facility], 1538) 43803: Printing Specialist/Techni lars ID = [id number] for AG UILAR, CAROL ANN RAD, CHEST, 1 VIEW, NON [id number] 12:22:00Reason for exam:- >intubationShould this be performed at the bedside?->YesFINAL REPORT RAD, CHEST, 1 VIEW, NON DEPT INDICATION: intubation COMPARISON: Prior day's exam FINDINGS: Portable frontal view of the chest. IMPRESSION: Support Lines: Stable. Lungs and pleura: Unchanged airspace and pleural opacities. No pneumothorax.Heart and mediastinum: Stable contours. Stable surgical changes.Additional findings: None. Signed: Madeline Casas Verified Date/Time: 12/28/2019 12:22:37 Reading Location: [facility] Radiology Reading Room BLOOD [id number] 11:00:00 Test Item Value Reference Range Interpretation Comments CULTURE (BEAKER) (test No growth in 5 days code = 1095) BLOOD [id number] 10:01:00 Test Item Value Reference Range Interpretation [...] gram positive 1123) cocci in clusters POCT-GLUCOSE [id number] 06:57:00 Test Item Value Reference Range Interpretation Comments POC-GLUCOSE METER 178 mg/dL 70-110 H : TESTED A T [facility] 6720 (BEAKER) (test code = [place], 1538) 22[address]: Printing Specialist/Techni lars ID = [id number] for MACIEJ BERRY BLOOD GAS, [id number] 05:21:00 Test Item Value Reference Range Interpretation [...] (BEAKER) (test code = 1819) 40.0 % [id number] 05:18:00 Test Item Value Reference Range Interpretation Comments MAGNESIUM (BEAKER) 2.4 mg/dL 1.6-2.6 Specimen slightly (test code = 627) hemolyzed Printing Specialist ID - TRAN [id number] 05:18:00 Test Item Value Reference Range Interpretation Comments PHOSPHORUS (BEAKER) 3.9 mg/dL 2.3-4.7 Specimen slightly (test code = 604) hemolyzed Printing Specialist ELLY [place]FIELD WCOMPREHENSIVE METABOLIC [id number] 05:18:00 Test Item Value Reference Range Interpretation [...] S NOT APPLICABLE FOR DIALYSIS PATIEN TS. Printing Specialist ELLY [place]FIELD WCBC W/PLT COUNT & AUTO [id number] 05:17:00 Test Item Value Reference Range Interpretation [...] PERCENT (BEAKER) (test code = 2801) CALCIUM, [id number] 05:05:00 Test Item Value Reference Range Interpretation Comments CALCIUM IONIZED (BEAKER) (test 1.24 mmol/L 1.12-1.27 code = 698) PH, BLOOD (BEAKER) (test code = 7.53 1810) [id number] 05:03:00 Test Item Value Reference Range Interpretation Comments PARTIAL THROMBOPLASTIN TIME 64.3 seconds 22.5-36.0 H (BEAKER) (test code = 760) POCT-GLUCOSE [id number] 00:13:00 Test Item Value Reference Range Interpretation Comments POC-GLUCOSE METER 154 mg/dL 70-110 H : TESTED A T [facility] 6720 (BEAKER) (test code = [facility], 1538) 74653: Printing Specialist/Techni lars ID = [id number] for MACIEJ BERRY [id number] 23:38:00 Test Item Value Reference Range Interpretation Comments POTASSIUM (BEAKER) (test code = 3.1 meq/L 3.5-5.1 L 379) Printing Specialist ID - [id number] 23:38:00 Test Item Value Reference Range Interpretation Comments MAGNESIUM (BEAKER) (test code = 2.3 mg/dL 1.6-2.6 627) Printing Specialist ID - DBPOCT-GLUCOSE [id number] 18:39:00 Test Item Value Reference Range Interpretation Comments POC-GLUCOSE METER 167 mg/dL 70-110 H : TESTED A T [facility] 6720 (BEAKER) (test code = [facility], 1538) 93594: Printing Specialist/Techni lars ID = [id number] for AG UILAR, CAROL ANN CBC W/PLT COUNT & AUTO [id number] 18:12:00 Test Item Value Reference Range Interpretation [...] 0-1 PERCENT (BEAKER) (test code = 2801) [id number] 15:37:00 Test Item Value Reference Range Interpretation Comments POTASSIUM (BEAKER) (test code = 3.2 meq/L 3.5-5.1 L 379) Printing Specialist ID - [id number] 15:37:00 Test Item Value Reference Range Interpretation Comments MAGNESIUM (BEAKER) (test code = 2.2 mg/dL 1.6-2.6 627) Printing Specialist ID - BSPOCT-GLUCOSE [id number] 14:19:00 Test Item Value Reference Range Interpretation Comments POC-GLUCOSE METER 146 mg/dL 70-110 H : TESTED A T [facility] 6720 (BEAKER) (test code = [facility], 1538) 71084: Printing Specialist/Techni lars ID = [id number] for CAROL ANN OSEGUERA LACTATE DEHYDROGENASE (LDH), BODY [id number] 10:47:00 Test Item Value Reference Range Interpretation [...] [facility], 1538) 10819: Printing Specialist/Techni lars ID = [id number] for MACIEJ BERRY BLOOD GAS, [id number] 05:55:00 Test Item Value Reference Range Interpretation [...] 30.0 % CBC W/PLT COUNT & AUTO [id number] 04:59:00 Test Item Value Reference Range Interpretation [...] (BEAKER) (test code = 2801) HEMOGLOBIN AND [id number] 04:58:00 Test Item Value Reference Range Interpretation Comments HEMOGLOBIN (BEAKER) (test code = 7.6 GM/DL 13.7-17.5 L 410) HEMATOCRIT (BEAKER) (test code = 24.1 % 40.1-51.0 L 411) Printing Specialist ID - [id number] 04:54:00 Test Item Value Reference Range Interpretation Comments PARTIAL THROMBOPLASTIN TIME 94.7 seconds 22.5-36.0 H (BEAKER) (test code = 760) [id number] 04:51:00 Test Item Value Reference Range Interpretation Comments MAGNESIUM (BEAKER) (test code = 2.3 mg/dL 1.6-2.6 627) Printing Specialist ID - ADAMARIS MBASIC METABOLIC [id number] 04:51:00 Test Item Value Reference Range Interpretation [...] S NOT APPLICABLE FOR DIALYSIS PATIEN TS. Printing Specialist ID - ADAMARIS MRAD, CHEST, 1 VIEW, NON [id number] 04:19:00Reason for exam:->intubationShould this be performed at the bedside?->YesFINAL REPORT RAD, CHEST, 1 VIEW, NON DEPT INDICATION: intubation COMPARISON: Prior day's exam FINDINGS: Portable frontal view of the chest. IMPRESSION: Support Lines: Stable. Lungs and pleura: Unchanged airspace and pleural opacities. No pneumothorax.Heart and mediastinum: Stable contours. Additional findings: None. Signed: Iraida Henley Verified Date/Time: 12/27/2019 04:19:08 POCT-GLUCOSE [id number] 00:40:00 Test Item Value Reference Range Interpretation Comments POC-GLUCOSE METER 136 mg/dL 70-110 H : TESTED A T [facility] 6720 (BEAKER) (test code [facility], = 1538) 97369: Printing Specialist/Techni lars ID = [id number] for MADELEINE CAMARENA [id number] 00:20:00 Test Item Value Reference Range Interpretation Comments POTASSIUM (BEAKER) (test code = 3.2 meq/L 3.5-5.1 L 379) Printing Specialist ID - KENNHEMOGLOBIN AND [id number] 00:06:00 Test Item Value Reference Range Interpretation Comments HEMOGLOBIN (BEAKER) (test code = 7.8 GM/DL 13.7-17.5 L 410) HEMATOCRIT (BEAKER) (test code = 25.4 % 40.1-51.0 L 411) Printing Specialist ID - [id number] 23:02:00 Test Item Value Reference Range Interpretation Comments PARTIAL THROMBOPLASTIN TIME 75.0 seconds 22.5-36.0 H (BEAKER) (test code = 760) [id number] 18:20:00 Test Item Value Reference Range Interpretation Comments POTASSIUM (BEAKER) (test code = 2.9 meq/L 3.5-5.1 L 379) Printing Specialist ID - STACY [id number] 18:20:00 Test Item Value Reference Range Interpretation Comments MAGNESIUM (BEAKER) (test code = 2.3 mg/dL 1.6-2.6 627) Printing Specialist ID - STACY NPOCT-GLUCOSE [id number] 17:33:00 Test Item Value Reference Range Interpretation Comments POC-GLUCOSE METER 127 mg/dL 70-110 H : TESTED A T [facility] 6720 (BEAKER) (test code = [facility], 1538) 57319: Printing Specialist/Techni lars ID = [id number] for B[place] CULVER HEMOGLOBIN AND [id number] 14:43:00 Test Item Value Reference Range Interpretation Comments HEMOGLOBIN (BEAKER) (test code = 7.8 GM/DL 13.7-17.5 L 410) HEMATOCRIT (BEAKER) (test code = 25.0 % 40.1-51.0 L 411) Printing Specialist ID - [id number]-GLUCOSE [id number] 13:37:00 Test Item Value Reference Range Interpretation Comments POC-GLUCOSE METER 123 mg/dL 70-110 H : TESTED A T [facility] 6720 (BEAKER) (test code = [facility] [place] [facility], 1538) 70344: Printing Specialist/Techni lars ID = [id number] for B[place] CULVER BLOOD [id number] 12:41:00 Test Item Value Reference Interpretation Comments [...] bottles: 1123) gram positive cocci in clusters [id number] 09:37:00 Test Item Value Reference Range Interpretation Comments PARTIAL THROMBOPLASTIN TIME 97.2 seconds 22.5-36.0 H (BEAKER) (test code = 760) RAD, CHEST, 1 VIEW, NON [id number] 09:11:00Reason for exam:- >intubationShould this be performed at the bedside?->YesFINAL REPORT Chest, one view HISTORY: Respiratory failure Comparison: 12/25/2019 Findings: Lungs: Stable bibasilar airspace disease. Heart: Stable cardiomegaly. Pleura: No pleuraleffusion or pneumothorax. Bones: Unremarkable. Lines/tubes: Unchanged in position. IMPRESSION: No significant interval change. Signed: Matthew George MDReport Verified Date/Time: 12/26/2019 09:11:59 R eading Location: [facility] B1 C013X Ortho Consult Reading Room SPUTUM CULTURE + GRAM STAIN 2019-12-26 09:01:00 Test Item Value Reference Range Interpretation Comments CULTURE (BEAKER) See comment (test code = 1095) GRAM STAIN RESULT 1+ WBCs (BEAKER) (test code = 1123) GRAM STAIN RESULT 0-5 epithelial cells (BEAKER) (test code = 398509) GRAM STAIN RESULT <1+ gram positive cocci (BEAKER) (test code in pairs = 335196) GRAM STAIN RESULT <1+ budding yeast (BEAKER) (test code = 695880) GRAM STAIN RESULT <1+ gram variable (BEAKER) (test code coccobacilli = 397683) 1+ YeastNo Normal respiratory juan presentHEMOGLOBIN AND [id number] 08:11:00 Test Item Value Reference Range Interpretation Comments HEMOGLOBIN (BEAKER) (test code = 6.6 GM/DL 13.7-17.5 L 410) HEMATOCRIT (BEAKER) (test code = 20.9 % 40.1-51.0 L 411) Printing Specialist ID - 6000POCT-GLUCOSE [id number] 06:39:00 Test Item Value Reference Range Interpretation Comments POC-GLUCOSE METER 130 mg/dL 70-110 H : TESTED A T [facility] 6720 (BEAKER) (test code = [place], 1538) 738[address]: Printing Specialist/Techni lars ID = [id number] for MACIEJ BERRY BLOOD GAS, [id number] 05:05:00 Test Item Value Reference Range Interpretation [...] (BEAKER) (test code = 1819) 30.0 % [id number] 03:31:00 Test Item Value Reference Range Interpretation Comments MAGNESIUM (BEAKER) 2.1 mg/dL 1.6-2.6 Specimen slightly (test code = 627) hemolyzed Printing Specialist ID - ADAMARIS MBASIC METABOLIC [id number] 03:31:00 Test Item Value Reference Range Interpretation [...] S NOT APPLICABLE FOR DIALYSIS PATIEN TS. Printing Specialist ID - ADAMARIS [id number] 03:18:00 Test Item Value Reference Range Interpretation Comments PARTIAL THROMBOPLASTIN TIME 79.6 seconds 22.5-36.0 H (BEAKER) (test code = 760) CBC W/PLT COUNT & AUTO [id number] 03:06:00 Test Item Value Reference Range Interpretation [...] PERCENT (BEAKER) (test code = 2801) POCT-GLUCOSE [id number] 00:00:00 Test Item Value Reference Range Interpretation Comments POC-GLUCOSE METER 100 mg/dL 70-110 : TESTED A T [facility] 6720 (BEAKER) (test code = [place] [facility], 1538) 44293: Printing Specialist/Techni lars ID = [id number] for MACIEJ BERRY EOSINOPHIL SMEAR, [id number] 20:38:00 Test Item Value Reference Range Interpretation Comments EOSINOPHIL SMEAR, URINE (BEAKER) No EOS seen No EOS seen (test code = 1851) SODIUM, RANDOM [id number] 20:30:00 Test Item Value Reference Range Interpretation Comments SODIUM URINE (BEAKER) (test code = < meq/L 243) Reference Range: No NormalsOperator ID - [id number] 20:29:00 Test Item Value Reference Range Interpretation Comments PARTIAL THROMBOPLASTIN TIME 56.5 seconds 22.5-36.0 H (BEAKER) (test code = 760) CREATININE, RANDOM [id number] 19:41:00 Test Item Value Reference Range Interpretation Comments CREATININE URINE (BEAKER) (test 51.6 mg/dL code = 375) Reference Range: No NormalsOperator ID - KENNPROTEIN, RANDOM [id number] 19:41:00 Test Item Value Reference Range Interpretation Comments PROTEIN, URINE (BEAKER) (test code = 22 mg/dL 0-14 H 1569) Printing Specialist ID - [id number] 18:41:00 Test Item Value Reference Range Interpretation Comments PARTIAL THROMBOPLASTIN TIME 114.5 seconds 22.5-36.0 H (BEAKER) (test code = 760) POCT-GLUCOSE [id number] 18:24:00 Test Item Value Reference Range Interpretation Comments POC-GLUCOSE METER 130 mg/dL 70-110 H : TESTED A T [facility] 6720 (BEAKER) (test code = [place] [facility], 1538) 60024: Printing Specialist/Techni lars ID = [id number] for ZAC LISBET [place] BLOOD [id number] 16:17:00 Test Item Value Reference Range Interpretation Comments CULTURE A From Anaerobic Bottle (BEAKER) (test Only Coagulas e code = 1095) negative Staphylococcus GRAM STAIN From anaerobic RESULT (BEAKER) bottle only: gram (test code = positive cocci in 1123) clusters BODY FLUID CULTURE + GRAM [id number] 13:20:00 Test Item Value Reference Range Interpretation Comments CULTURE (BEAKER) (test No growth code = 1095) GRAM STAIN RESULT <1+ White blood cells (BEAKER) (test code = seen 1123) GRAM STAIN RESULT No organisms seen (BEAKER) (test code = 86502) POCT-GLUCOSE [id number] 12:41:00 Test Item Value Reference Range Interpretation Comments POC-GLUCOSE METER 143 mg/dL 70-110 H : TESTED A T [facility] 6720 (BEAKER) (test code = [place], 1538) [id number]: Printing Specialist/Techni lars ID = [id number] for LISBET KRAMER [id number] 12:32:00 Test Item Value Reference Range Interpretation Comments PARTIAL THROMBOPLASTIN TIME 92.9 seconds 22.5-36.0 H (BEAKER) (test code = 760) U/S, RENAL, [id number] 10:05:00Reason for exam:->akiFINAL REPORT Comparison: CT of [...] MDReport Verified Date/Time: 12/25/2019 10:05:41 Reading Location: [facility] Transitional Reading Room MAGNESIUM 2019-12-25 07:22:00 Test Item Value Reference Range Interpretation Comments MAGNESIUM (BEAKER) 2.4 mg/dL 1.6-2.6 Specimen slightly (test code = 627) hemolyzed Printing Specialist ID - JEN [id number] 07:22:00 Test Item Value Reference Range Interpretation Comments PHOSPHORUS (BEAKER) 3.9 mg/dL 2.3-4.7 Specimen slightly (test code = 604) hemolyzed Printing Specialist ID - JEN CCOMPREHENSIVE METABOLIC [id number] 07:22:00 Test Item Value Reference Range Interpretation [...] S NOT APPLICABLE FOR DIALYSIS PATIEN TS. 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 IMPRESSION: Support Lines: No significant change. Lungs and pleura: Airspace and pleural opacities are unchanged. No pneumothorax.Heart and mediastinum: Stable contours. Additional findings: None. Signed: Alvaro Huerta MDRepcoxhealth Verified Date/Time: 12/25/2019 06:12:41 COMPLEMENT COMPONENT [id number] 05:28:00 Test Item Value Reference Range Interpretation Comments C4 COMPLEMENT (BEAKER) (test code = 28 mg/dL 15-57 394) Printing Specialist ID - ADAMARIS MCOMPLEMENT COMPONENT [id number] 05:28:00 Test Item Value Reference Range Interpretation Comments C3 COMPLEMENT (BEAKER) (test code = 142 mg/dL 82-193 393) Printing Specialist ID - ADAMARIS MCALCIUM, [id number] 05:24:00 Test Item Value Reference Range Interpretation Comments CALCIUM IONIZED (BEAKER) (test 1.21 mmol/L 1.12-1.27 code = 698) PH, BLOOD (BEAKER) (test code = 7.50 1810) BLOOD GAS, [id number] 05:14:00 Test Item Value Reference Range Interpretation [...] (BEAKER) (test code = 1819) 30.0 % [id number] 05:11:00 Test Item Value Reference Range Interpretation Comments PARTIAL THROMBOPLASTIN TIME 67.7 seconds 22.5-36.0 H (BEAKER) (test code = 760) CBC W/PLT COUNT & AUTO [id number] 05:01:00 Test Item Value Reference Range Interpretation [...] PERCENT (BEAKER) (test code = 2801) POCT-GLUCOSE [id number] 01:26:00 Test Item Value Reference Range Interpretation Comments POC-GLUCOSE METER 150 mg/dL 70-110 H : TESTED A T [facility] 6720 (BEAKER) (test code = [facility], 1538) [address]: Printing Specialist/Techni lars ID = [id number] for LAMIN POSADA POCT-GLUCOSE [id number] 17:58:00 Test Item Value Reference Range Interpretation Comments POC-GLUCOSE METER 166 mg/dL 70-110 H : TESTED A T [facility] 6720 (BEAKER) (test code = [facility], 1538) [address]: Printing Specialist/Techni lars ID = [id number] for ZAC COBURNLISBET EEG AWAKE AND [id number] 17:26:00Reason for exam:->[facility]uresCH[facility] RE[facility] DATE(s) OF TEST: 12/16/2019DATE OF REPORT: 12/16/2019ACC: [id number]: 20-0325Start time/date: 15:16Stop time/date: 15:37ICD-10: R56.9CPT Code: 93579 HISTORY: 74 year old man with encephalopathy, [...] Marcell M.D., FACNS, FAAN, FAESProfessor of Neurology, Mission Bernal campusDirector, [facility] Epilepsy [facility] Neurophysiology Lab CREATINE KINASE (CK)2019-12-24 12:26:00 Test Item Value Reference Range Interpretation Comments CREATINE KINASE TOTAL (BEAKER) (test 13 U/L 29-200 L code = 380) Printing Specialist ID - PIAYA LPOCT-GLUCOSE [id number] 12:11:00 Test Item Value Reference Range Interpretation Comments POC-GLUCOSE METER 155 mg/dL 70-110 H : TESTED A T [facility] 6720 (BEAKER) (test code = [place], 1538) [address]: Printing Specialist/Techni lars ID = [id number] for LISBET KRAMER RAD, CHEST, 1 VIEW, NON [id number] 10:12:00Reason for exam:- >intubationShould this be performed [...] MDReport Verified Date/Time: 12/24/2019 10:12:54 Reading Location: [address] Transitional Reading Room BASIC METABOLIC [id number] 09:59:00 Test Item Value Reference Range Interpretation [...] S NOT APPLICABLE FOR DIALYSIS PATIEN TS. Printing Specialist ID - PIAYA LBLOOD GAS, [id number] 08:25:00 Test Item Value Reference Range Interpretation [...] (test code = 1819) 45.0 % POCT-GLUCOSE [id number] 06:32:00 Test Item Value Reference Range Interpretation Comments POC-GLUCOSE METER 186 mg/dL 70-110 H : TESTED A T [facility] 6720 (BEAKER) (test code = [place], 1538) [address]: Printing Specialist/Techni lars ID = [id number] for Co bb, Genesis [id number] 03:57:00 Test Item Value Reference Range Interpretation Comments MAGNESIUM (BEAKER) 2.3 mg/dL 1.6-2.6 Specimen slightly (test code = 627) hemolyzed Printing Specialist ID - PIAYA LBASIC METABOLIC [id number] 03:57:00 Test Item Value Reference Range Interpretation [...] S NOT APPLICABLE FOR DIALYSIS PATIEN TS. Printing Specialist ID - PIAYA LLACTIC ACID, [id number] 03:44:00 Test Item Value Reference Range Interpretation Comments LACTATE BLOOD ARTERIAL (2) 1.9 mmol/L 0.5-2.2 (BEAKER) (test code = 2874) Printing Specialist ID - PIAYA LCBC W/PLT COUNT & AUTO [id number] 03:40:00 Test Item Value Reference Range Interpretation [...] 0-1 PERCENT (BEAKER) (test code = 2801) [id number] 02:59:00 Test Item Value Reference Range Interpretation Comments PARTIAL THROMBOPLASTIN TIME 88.1 seconds 22.5-36.0 H (BEAKER) (test code = 760) POCT-GLUCOSE [id number] 00:23:00 Test Item Value Reference Range Interpretation Comments POC-GLUCOSE METER 219 mg/dL 70-110 H : TESTED A T [facility] 6720 (HAYDEN) (test code = [facility], 1538) [address]: Printing Specialist/Techni lars ID = [id number] for Genesis Potts [id number] 20:07:00 Test Item Value Reference Range Interpretation Comments PARTIAL THROMBOPLASTIN TIME 70.4 seconds 22.5-36.0 H (BEAKER) (test code = 760) PET/CT, WHOLE BODY [id number] 19:37:00FINAL REPORT PROCEDURE: FDG PET/CT for inflammation CPT CODE: 76580 INDICATION: FDG PET/CT was obtained localize persistent [...] seen. Focal inflammation cannot be excluded.Signed: Susan Craigort Verified Date/Time: 12/23/2019 19:37:11 POCT-GLUCOSE [id number] 18:31:00 Test Item Value Reference Range Interpretation Comments POC-GLUCOSE METER 158 mg/dL 70-110 H : TESTED A T [facility] 6720 (BEAKER) (test code = [facility], 1538) [address]: Printing Specialist/Techni lars ID = [id number] for NICOLE PLATA LUCY RESPIRATORY PANEL [id number] 18:28:00 Test Item Value Reference Range Interpretation [...] decisions. This sample was tested at the [facility] Molecular Diagnostics Laboratory using the [employer] FilmArray Respiratory Panel. It is FDA cleared and has been verified and approved by the [facility] Diagnostics [facility] for clinical use on nasopharyngeal swab specimens.The performance of the FilmArrayRP has not been established in individuals who received influenza vaccine. Recent administration ofa nasal influenza vaccine may cause false positive results for Influenza A and/orInfluenza B.POCT-GLUCOSE [id number] 15:39:00 Test Item Value Reference Range Interpretation Comments POC-GLUCOSE METER 169 mg/dL 70-110 H : Notified RN/MD: (HAYDEN) (test code = TESTED AT [facility] 6720 1538) NAE [facility], [address]: Printing Specialist/Techni lars ID = [id number] for RAHEL SALMON [id number] 14:46:00 Test Item Value Reference Range Interpretation Comments CORTISOL, TOTAL (HAYDEN) (test 22.9 ug/dL 3.7-19.4 H code = 2755) Printing Specialist ID - KARL MPOCT-GLUCOSE [id number] 14:29:00 Test Item Value Reference Range Interpretation Comments POC-GLUCOSE METER 153 mg/dL 70-110 H : TESTED A T [facility] 6720 (BEAKER) (test code = [place], 1538) [address]: Printing Specialist/Techni lars ID = [id number] for PA LMA, BLAIRE [id number] 14:27:00 Test Item Value Reference Range Interpretation Comments PARTIAL THROMBOPLASTIN TIME 34.9 seconds 22.5-36.0 (BEAKER) (test code = 760) LACTIC ACID, [id number] 14:25:00 Test Item Value Reference Range Interpretation Comments LACTATE BLOOD ARTERIAL (2) 1.8 mmol/L 0.5-2.2 (BEAKER) (test code = 2874) Printing Specialist ID - IBAN FHEMOGLOBIN AND [id number] 14:10:00 Test Item Value Reference Range Interpretation Comments HEMOGLOBIN (BEAKER) (test code = 8.2 GM/DL 13.7-17.5 L 410) HEMATOCRIT (BEAKER) (test code = 25.7 % 40.1-51.0 L 411) Printing Specialist ID - JanBLOOD GAS, [id number] 14:04:00 Test Item Value Reference Range Interpretation [...] (BEAKER) (test code = 1819) 45.0 % [id number] 13:21:00 Test Item Value Reference Range Interpretation Comments MAGNESIUM (BEAKER) 2.2 mg/dL 1.6-2.6 Specimen slightly (test code = 627) hemolyzed Printing Specialist ID - KARL MBASIC METABOLIC [id number] 13:21:00 Test Item Value Reference Range Interpretation [...] S NOT APPLICABLE FOR DIALYSIS PATIEN TS. Printing Specialist ID - KARL MBLOOD [id number] 13:07:00 Test Item Value Reference Range Interpretation [...] for additional information.CBC W/PLT COUNT & AUTO [id number] 11:03:00 Test Item Value Reference Range Interpretation [...] 0-1 PERCENT (BEAKER) (test code = 2801) [id number] 11:03:00 Test Item Value Reference Range Interpretation Comments PARTIAL THROMBOPLASTIN TIME 147.2 seconds 22.5-36.0 H (BEAKER) (test code = 760) URINALYSIS W/ REFLEX URINE [id number] 10:00:00 Test Item Value Reference Range Interpretation [...] = 514) SOURCE(BEAKER) (test code = 2795) Printing Specialist ID - [auto]Printing Specialist ID - techPOCT-GLUCOSE [id number] 09:32:00 Test Item Value Reference Range Interpretation Comments POC-GLUCOSE METER 181 mg/dL 70-110 H : TESTED A T [facility] 6720 (BEAKER) (test code = [facility], 1538) [address]: Printing Specialist/Techni lars ID = [id number] for Co bb, Genesis POCT-GLUCOSE [id number] 09:27:00 Test Item Value Reference Range Interpretation Comments POC-GLUCOSE METER 151 mg/dL 70-110 H : TESTED A T [facility] 6720 (BEAKER) (test code = [facility], 1538) [address]: Printing Specialist/Techni lars ID = [id number] for AR LAMIN AQUINO BLOOD GAS, [id number] 05:53:00 Test Item Value Reference Range Interpretation [...] (BEAKER) (test code = 1819) 45.0 % [id number] 03:27:00 Test Item Value Reference Range Interpretation Comments PARTIAL THROMBOPLASTIN TIME 119.7 seconds 22.5-36.0 H (BEAKER) (test code = 760) [id number] 03:01:00 Test Item Value Reference Range Interpretation Comments MAGNESIUM (BEAKER) (test code = 2.4 mg/dL 1.6-2.6 627) Printing Specialist ID - PIAYA LBASIC METABOLIC [id number] 03:01:00 Test Item Value Reference Range Interpretation [...] S NOT APPLICABLE FOR DIALYSIS PATIEN TS. Printing Specialist ID - PIAYA LCBC W/PLT COUNT & AUTO [id number] 02:53:00 Test Item Value Reference Range Interpretation [...] (BEAKER) (test code = 2801) BLOOD GAS, [id number] 02:45:00 Test Item Value Reference Range Interpretation [...] 60.0 % RAD, CHEST, 1 VIEW, NON [id number] 02:01:00Reason for exam:->sobShould this be performed at [...] contours. Additional findings: None. Signed: Iraida Henley MDReport Verified Date/Time: 12/23/2019 02:01:11 BLOOD GAS, [id number] 01:19:00 Test Item Value Reference Range Interpretation [...] (test code = 1819) 21.0 % POCT-GLUCOSE [id number] 23:42:00 Test Item Value Reference Range Interpretation Comments POC-GLUCOSE METER 135 mg/dL 70-110 H : TESTED A T [facility] 6720 (BEAKER) (test code = [facility], 1538) [address]: Printing Specialist/Techni lars ID = [id number] for Co bb, Genesis [id number] 18:51:00 Test Item Value Reference Range Interpretation Comments POTASSIUM (BEAKER) 4.1 meq/L 3.5-5.1 Specimen slightly (test code = 379) hemolyzed Printing Specialist ID - [id number] 18:44:00 Test Item Value Reference Range Interpretation Comments PARTIAL THROMBOPLASTIN TIME 50.0 seconds 22.5-36.0 H (BEAKER) (test code = 760) POCT-GLUCOSE [id number] 18:32:00 Test Item Value Reference Range Interpretation Comments POC-GLUCOSE METER 147 mg/dL 70-110 H : TESTED A T [facility] 6720 (BEAKER) (test code = [facility], 1538) [address]: Printing Specialist/Techni lars ID = [id number] for PE BECKI, CRISTIN RAD, ABDOMEN/KUB, 1 VIEW [id number] 16:39:00Reason for exam:->tube placementShould this be performed at the bedside?->YesFINAL REPORT Abdomen date 12/22/2019 Comment: Frontal view of the abdomen demo nstrates a nasogastric tube present with tip noted in the body of the stomach. Signed: Edilberto Gregory MDReport Verified Date/Time: 12/22/2019 16:39:35 Reading Location: [facility] B1 C013W Consult Reading Room POCT-GLUCOSE [id number] 12:48:00 Test Item Value Reference Range Interpretation Comments POC-GLUCOSE METER 141 mg/dL 70-110 H : [facility] (BEAKER[facility] (test code = [place], 1538) [address]: Printing Specialist/Techni lars ID = [id number] for AG NOMAN LOPEZA [id number] 12:34:00 Test Item Value Reference Range Interpretation Comments MAGNESIUM (BEAKER) 2.3 mg/dL 1.6-2.6 Specimen slightly (test code = 627) hemolyzed Printing Specialist ID - [id number] 12:34:00 Test Item Value Reference Range Interpretation Comments POTASSIUM (BEAKER) 3.6 meq/L 3.5-5.1 Specimen slightly (test code = 379) hemolyzed Printing Specialist ID - [id number] 12:24:00 Test Item Value Reference Range Interpretation Comments PARTIAL THROMBOPLASTIN TIME 45.8 seconds 22.5-36.0 H (BEAKER) (test code = 760) B-TYPE NATRIURETIC FACTOR (BNP)2019-12-22 10:25:00 Test Item Value Reference Range Interpretation Comments B-TYPE NATRIURETIC PEPTIDE (BEAKER) 632 pg/mL 0-100 H (test code = 700) Printing Specialist ID - DBBLOOD GAS, [id number] 10:04:00 Test Item Value Reference Range Interpretation [...] (test code = 1819) 30.0 % BLOOD [id number] 10:03:00 Test Item Value Reference Range Interpretation [...] positive cocci in clusters BLOOD CULTURE IDENTIFICATION [id number] 10:00:00 Test Item Value Reference Interpretation Comments Range LISTERIA MONOCYTOGENES Not detected Not detected (test code = 20160729) STAPHYLOCOCCUS (test Detected Not detected A Coagula se negative code = 20161001) Staph specie s (CoNS)- methici llin susceptibleFirs t-seble e therapy: Cefa zolin or Oxacillin (Oxacillin pref erred if FLIGHT ATTENDANT involvem ent) MecA NOT DETECTEDPossibl e contamination. The likelihood of pathogenicity i s increased if th e organism is obs erved in multiple blo od cultures obtain ed from separate venipunctures.R efere nce Range: Not Detected STAPHYLOCOCCUS AUREUS Not detected Not detected (test code = 8709899) STREPTOCOCCUS (test Not detected Not detected code = 0953320) STREPTOCOCCUS Not detected Not detected AGALACTIAE (GROUP B) (test code = 5127976) STREPTOCOCCUS Not detected Not detected PNEUMONIAE (test code = 7593815) STREPTOCOCCUS PYOGENES Not detected Not detected (GROUP A) (test code = 5706663) ACINETOBACTER BAUMANNII Not detected Not detected (test code = 8247449) HAEMOPHILUS INFLUENZAE Not detected Not detected (test code = 2236782) NEISSERIA MENINGITIDIS Not detected Not detected (test code = 4725956) ENTEROBACTERIACEAE (test code = 0423275) ENTEROBACTER CLOACOE Not detected Not detected COMPLEX (test code = 7294229) KLEBSIELLA OXYTOCA Not detected Not detected (test code = 3756793) KLEBSIELLA PNEUMONIAE Not detected Not detected (test code = 1650) PROTEUS (test code = 6118160) SERRATIA MARCESCENS Not detected Not detected (test code = 2605250) JAMAL ALBICANS (test Not detected Not detected code = 2548655) JAMAL GLABRATA (test Not detected Not detected code = 0713236) JAMAL KRUSEI (test Not detected Not detected code = 4607347) JAMAL PARAPSILOSIS Not detected Not detected (test code = 0456954) JAMAL TROPICALIS Not detected Not detected (test code = 8876988) ESCHERICHIA COLI (test Not detected Not detected code = 3428976) METHICILLIN-RESISTANCE Not detected Not detected GENE (test code = 4526245) VANCOMYCIN-RESISTANCE GENE (test code = 4869476) CARBAPENEM-RESISTANCE GENE (test code = 5785988) ENTEROCOCCUS-BEAKER Not detected Not detected (test code = 2765673) PSEUDOMONAS Not detected Not detected AERUGINOSA-BEAKER (test code = 3241409) Other bacteria and resistance markers not targeted by this PCR panel cannot be excluded; therefore clinical correlation and follow up of serology, culture results, and other molecular studies is required. The results are not intended to be used as the sole means for clinical diagnosis or patient management decisions. This sample was tested at the [facility] Molecular Diagnostics Laboratory using the [employer] Blood Culture ID Panel. It is FDA cleared and has been verified and approved by the [facility] Molecular Diagnostics Laboratory for clinical use. [...] ed only after consultat ion with the [facility] microbiology laboratory.Refe r to previous cultur e of* - Staphylococcus lugdunensis GRAM STAIN From aerobic and RESULT (BEAKER) anaerobic (test code = bottles: gram 1123) positive cocci in clusters RAD, CHEST, 1 VIEW, NON [id number] 08:26:00Reason for exam:->sobShould this be performed at the bedside?->YesFINAL REPORT RAD, CHEST, 1 VIEW, NON DEPT INDICATION: sob COMPARISON: Prior day's exam FINDINGS: Portable frontal view of the chest. IMPRESSION: Support Lines: Stable. Lungs and pleura: Unchanged airspace opacities. No pneumothorax.Heart and mediastinum: Stable contours. Stable pacer apparatus.Additional findings: None. Signed: JR Leblanc Robert MDReport Verified Date/Time: 12/22/2019 08:26:26 Reading Location: [facility] Radiology Reading Room APTT 2019-12-22 08:18:00 Test Item Value Reference Range Interpretation Comments PARTIAL THROMBOPLASTIN TIME 102.7 seconds 22.5-36.0 H (BEAKER) (test code = 760) HEMOGLOBIN AND [id number] 08:01:00 Test Item Value Reference Range Interpretation Comments HEMOGLOBIN (BEAKER) (test code = 7.8 GM/DL 13.7-17.5 L 410) HEMATOCRIT (BEAKER) (test code = 24.5 % 40.1-51.0 L 411) Printing Specialist ID - [id number] 06:31:00 Test Item Value Reference Range Interpretation Comments PARTIAL THROMBOPLASTIN TIME 95.3 seconds 22.5-36.0 H (BEAKER) (test code = 760) POCT-GLUCOSE [id number] 06:22:00 Test Item Value Reference Range Interpretation Comments POC-GLUCOSE METER 144 mg/dL 70-110 H : TESTED A T [facility] 6720 (BEAKER) (test code = [place] [facility], 1538) [address]: Printing Specialist/Techni lars ID = [id number] for Co bb, Genesis [id number] 06:06:00 Test Item Value Reference Range Interpretation Comments MAGNESIUM (BEAKER) 2.2 mg/dL 1.6-2.6 Specimen slightly (test code = 627) hemolyzed Printing Specialist ID - ADAMARIS MBASIC METABOLIC [id number] 06:06:00 Test Item Value Reference Range Interpretation [...] S NOT APPLICABLE FOR DIALYSIS PATIEN TS. Printing Specialist ID - ADAMARIS MCBC W/PLT COUNT & AUTO [id number] 04:09:00 Test Item Value Reference Range Interpretation [...] PERCENT (BEAKER) (test code = 2801) POCT-GLUCOSE [id number] 00:13:00 Test Item Value Reference Range Interpretation Comments POC-GLUCOSE METER 122 mg/dL 70-110 H : TESTED A T [facility] 6720 (BEAKER) (test code = [place], 1538) [address]: Printing Specialist/Techni lars ID = [id number] for Co alliGenesis [id number] 23:33:00 Test Item Value Reference Range Interpretation Comments PARTIAL THROMBOPLASTIN TIME 68.4 seconds 22.5-36.0 H (BEAKER) (test code = 760) U/S, [id number] 19:46:00Laterality?->LeftReason for exam:- >Diagnostic samplingLabs to be Ordered:->Body Fluid Culture (w/Gram Stain, C\T\S)Body fluid cell countLabs to be Ordered:->Glucose+LDH+ProteinLabs to be Ordered:->Other (please add comment)Labs to be Ordered:->Fungal Culture FINAL REPORT Exam: Ultrasound guided thoracentesis Clinical History: Left-sided Pleural Effusion Dice Spotter: Cassidy Parra PA-C Supervising Physician: Luis Miguel [...] MDReport Verified Date/Time: 12/21/2019 19:46:02 Reading Location: [address] Ultrasound Reading Room BODY FLUID CELL COUNT WITH [id number] 19:01:00 Test Item Value Reference Range Interpretation Comments APPEARANCE FLUID (BEAKER) Bloody Clear A (test code = 510) COLOR FLUID (BEAKER) (test Red Colorless, Straw A code = 511) RBC FLUID (BEAKER) (test code 420850 /cu mm <=1 H = 513) ADJUSTED [...] (BEAKER) EDTA Tube (test code = 2873) [id number] 17:13:00 Test Item Value Reference Range Interpretation [...] mechanical heart valves.RAD, CHEST, 1 VIEW, NON [id number] 16:16:00Reason for exam:->post left sided thoracentesisShould this [...] of the right ventricle. Signed: Radha Marie Verified Date/Time: 12/21/2019 16:16:44 Reading Location: [facility] Radiology Reading Room ANAEROBIC [id number] 16:14:00 Test Item Value Reference Range Interpretation Comments CULTURE (BEAKER) (test No anaerobes isolated code = 1095) PROTHROMBIN [id number] 12:46:00 Test Item Value Reference Range Interpretation [...] is2.5-3.5 for patients wiht mechanical heart valves.POCT-GLUCOSE [id number] 12:38:00 Test Item Value Reference Range Interpretation Comments POC-GLUCOSE METER 138 mg/dL 70-110 H : TESTED A T [facility] 6720 (BEAKER) (test code = [place] [facility], 1538) [address]: Printing Specialist/Techni lars ID = [id number] for CAROL ANN OSEGUERA [id number] 11:10:00 Test Item Value Reference Range Interpretation [...] mechanical heart valves.SURGICALLY OBTAINED CULTURE + GRAM [id number] 08:57:00 Test Item Value Reference Interpretation Comments [...] (test code = cocci in pairs and 709189) clusters CREATINE KINASE (CK)2019-12-21 05:56:00 Test Item Value Reference Range Interpretation Comments CREATINE KINASE TOTAL (BEAKER) (test 18 U/L 29-200 L code = 380) Printing Specialist ID - ADAMARIS [id number] 05:43:00 Test Item Value Reference Range Interpretation Comments MAGNESIUM (BEAKER) 2.3 mg/dL 1.6-2.6 Specimen slightly (test code = 627) hemolyzed Printing Specialist ID - ADAMARIS MBASIC METABOLIC [id number] 05:43:00 Test Item Value Reference Range Interpretation [...] S NOT APPLICABLE FOR DIALYSIS PATIEN TS. Printing Specialist ID - ADAMARIS MCBC W/PLT COUNT & AUTO [id number] 05:17:00 Test Item Value Reference Range Interpretation [...] H PERCENT (BEAKER) (test code = 2801) [id number] 05:16:00 Test Item Value Reference Range Interpretation Comments PARTIAL THROMBOPLASTIN TIME 63.0 seconds 22.5-36.0 H (BEAKER) (test code = 760) POCT-GLUCOSE [id number] 23:39:00 Test Item Value Reference Range Interpretation Comments POC-GLUCOSE METER 162 mg/dL 70-110 H : TESTED A T [facility] 6720 (BEAKER) (test code = [facility], 1538) [address]: Printing Specialist/Techni lars ID = [id number] for MICHELLE MATHIS BLOOD GAS, [id number] 21:17:00 Test Item Value Reference Range Interpretation [...] (test code = 1819) 21.0 % POCT-GLUCOSE [id number] 18:36:00 Test Item Value Reference Range Interpretation Comments POC-GLUCOSE METER 149 mg/dL 70-110 H : TESTED A T [facility] 6720 (BEAKER) (test code = [facility], 153) [address]: Printing Specialist/Techni lars ID = [id number] for AG UILAR, CAROL ANN [id number] 17:13:00 Test Item Value Reference Range Interpretation Comments PARTIAL THROMBOPLASTIN TIME 72.8 seconds 22.5-36.0 H (BEAKER) (test code = 760) POCT-GLUCOSE [id number] 12:29:00 Test Item Value Reference Range Interpretation Comments POC-GLUCOSE METER 179 mg/dL 70-110 H : TESTED A T [facility] 6720 (BEAKER) (test code = [facility], 153) [address]: Printing Specialist/Techni lars ID = [id number] for AG UILAR, CAROL ANN [id number] 11:15:00 Test Item Value Reference Range Interpretation Comments PARTIAL THROMBOPLASTIN TIME 76.4 seconds 22.5-36.0 H (BEAKER) (test code = 760) BLOOD GAS, [id number] 10:14:00 Test Item Value Reference Range Interpretation [...] (test code = 1819) 21.0 % BLOOD [id number] 09:49:00 Test Item Value Reference Range Interpretation [...] gram 1123) positive cocci in clusters BLOOD [id number] 09:49:00 Test Item Value Reference Range Interpretation [...] gram 1123) positive cocci in clusters POCT-GLUCOSE [id number] 06:19:00 Test Item Value Reference Range Interpretation Comments POC-GLUCOSE METER 202 mg/dL 70-110 H : TESTED A T [facility] 6720 (BEAKER) (test code = [place], 4212) [address]: Printing Specialist/Techni lars ID = [id number] for JOSEPHINE MUSE [id number] 04:33:00 Test Item Value Reference Range Interpretation Comments PARTIAL THROMBOPLASTIN TIME 53.7 seconds 22.5-36.0 H (BEAKER) (test code = 760) [id number] 04:27:00 Test Item Value Reference Range Interpretation Comments MAGNESIUM (BEAKER) (test code = 2.2 mg/dL 1.6-2.6 627) Printing Specialist ID Jorge MAYFIELD WBASIC METABOLIC [id number] 04:27:00 Test Item Value Reference Range Interpretation [...] S NOT APPLICABLE FOR DIALYSIS PATIEN TS. Printing Specialist ID Jorge MAYFIELD WCBC W/PLT COUNT & AUTO [id number] 04:18:00 Test Item Value Reference Range Interpretation [...] PERCENT (BEAKER) (test code = 2801) POCT-GLUCOSE [id number] 23:24:00 Test Item Value Reference Range Interpretation Comments POC-GLUCOSE METER 160 mg/dL 70-110 H : TESTED Joanna Luque [facility] 6720 (BEAKER) (test code = [place], 1538) [address]: Printing Specialist/Techni lars ID = [id number] for JOSEPHINE MUSE [id number] 21:10:00 Test Item Value Reference Range Interpretation Comments PARTIAL THROMBOPLASTIN TIME 70.0 seconds 22.5-36.0 H (BEAKER) (test code = 760) [id number] 13:55:00 Test Item Value Reference Range Interpretation Comments PARTIAL THROMBOPLASTIN TIME 70.0 seconds 22.5-36.0 H (BEAKER) (test code = 760) POCT-GLUCOSE [id number] 12:13:00 Test Item Value Reference Range Interpretation Comments POC-GLUCOSE METER 165 mg/dL 70-110 H : TESTED A T [facility] 6720 (BEAKER) (test code NAE [facility], = 1538) 13[address]: Printing Specialist/Techni lars ID = [id number] for FAHAD SILVA RAD, CHEST, 1 VIEW, NON [id number] 11:54:00Reason for exam:- >tachypneaShould this be performed at the bedside?->YesFINAL REPORT RAD, CHEST, 1 VIEW, NON DEPT INDICATION: tachypnea COMPARISON: December 17, 2019 FINDINGS: Portable frontal view of the chest. IMPRESSION: Support Lines: Pacer device. Lungs and pleura: Left basilar atelectasis and retrocardiac airspace disease No pneumothorax.Heart and mediastinum: Stable contours. Additional findings: None. Signed: Madeline Casas Verified Date/Time: 12/19/2019 11:54:30 Reading Location: [address] Neuro Reading Room BLOOD [id number] 11:04:00 Test Item Value Reference Range Interpretation [...] gram 1123) positive cocci in clusters BLOOD [id number] 11:02:00 Test Item Value Reference Range Interpretation [...] bottles: gram 1123) positive cocci in clusters [id number] 07:08:00 Test Item Value Reference Range Interpretation Comments MAGNESIUM (BEAKER) 2.2 mg/dL 1.6-2.6 Specimen slightly (test code = 627) hemolyzed Printing Specialist ID - DBBASIC METABOLIC [id number] 07:08:00 Test Item Value Reference Range Interpretation [...] S NOT APPLICABLE FOR DIALYSIS PATIEN TS. Printing Specialist ID - [id number] 06:41:00 Test Item Value Reference Range Interpretation Comments PARTIAL THROMBOPLASTIN TIME 63.5 seconds 22.5-36.0 H (BEAKER) (test code = 760) CBC W/PLT COUNT & AUTO [id number] 05:29:00 Test Item Value Reference Range Interpretation [...] 0-1 H PERCENT (BEAKER) (test code = 8421) [id number] 00:50:00 Test Item Value Reference Range Interpretation Comments PARTIAL THROMBOPLASTIN TIME 57.8 seconds 22.5-36.0 H (BEAKER) (test code = 760) [id number] 18:03:00 Test Item Value Reference Range Interpretation Comments MAGNESIUM (BEAKER) 2.1 mg/dL 1.6-2.6 Specimen slightly (test code = 627) hemolyzed Printing Specialist ID - [id number] 18:03:00 Test Item Value Reference Range Interpretation Comments POTASSIUM (BEAKER) 3.9 meq/L 3.5-5.1 Specimen slightly (test code = 379) hemolyzed Printing Specialist ID - [id number] 17:58:00 Test Item Value Reference Range Interpretation Comments PARTIAL THROMBOPLASTIN TIME 50.8 seconds 22.5-36.0 H (BEAKER) (test code = 760) HEMOGLOBIN [id number] 12:53:00 Test Item Value Reference Range Interpretation Comments HEMOGLOBIN A1C (BEAKER) (test code = 5.4 % 4.3-6.1 368) [id number] 12:00:00 Test Item Value Reference Range Interpretation Comments POTASSIUM (BEAKER) (test code = 3.1 meq/L 3.5-5.1 L 379) Printing Specialist ID - IBAN [id number] 12:00:00 Test Item Value Reference Range Interpretation Comments MAGNESIUM (BEAKER) (test code = 2.3 mg/dL 1.6-2.6 627) Printing Specialist ID - IBAN FBLOOD [id number] 11:19:00 Test Item Value Reference Range Interpretation Comments CULTURE A From Aerobic An d (BEAKER) (test Anaerobic Bot tles Same code = 1095) organism has be en isolated from cultures(s) of the same body site and collection date . Repeat identifi cation and susceptibil ity testing perform ed only after consultat ion with the [facility] microbiology laboratory.Refe r to previous cultur e of* - Staphylococcus lugdunensis GRAM STAIN From aerobic and RESULT (BEAKER) anaerobic (test code = bottles: gram 1123) positive cocci in clusters BLOOD [id number] 11:17:00 Test Item Value Reference Interpretation Comments [...] bottles: 1123) gram positive cocci in clusters [id number] 10:51:00 Test Item Value Reference Range Interpretation Comments PARTIAL THROMBOPLASTIN TIME 32.0 seconds 22.5-36.0 (BEAKER) (test code = 760) Prior to initiating heparinCBC W/PLT COUNT & AUTO [id number] 05:41:00 Test Item Value Reference Range Interpretation [...] H PERCENT (BEAKER) (test code = 2801) [id number] 05:03:00 Test Item Value Reference Range Interpretation Comments MAGNESIUM (BEAKER) 2.1 mg/dL 1.6-2.6 Specimen slightly (test code = 627) hemolyzed Printing Specialist ID - ADAMARIS MBASIC METABOLIC [id number] 05:03:00 Test Item Value Reference Range Interpretation [...] S NOT APPLICABLE FOR DIALYSIS PATIEN TS. Printing Specialist ID - ADAMARIS MVANCOMYCIN LEVEL, [id number] 19:14:00 Test Item Value Reference Range Interpretation Comments VANCOMYCIN TROUGH ([place]) (test 10.8 ug/mL 10.0-20.0 code = 522) CT, CHEST, WITHOUT [id number] 13:42:00FINAL REPORT CT of the Chest, abdomen [...] MDReport Verified Date/Time: 12/17/2019 13:42:11 Reading Location: [place] [address] CT Body Reading Room CT, [id number] 13:42:00FINAL REPORT CT of the Chest, abdomen [...] Gregory Verified Date/Time: 12/17/2019 13:42:11 Reading Location: [place] [address] CT Body Reading Room CT, BRAIN, WITHOUT [...] Casas Verified Date/Time: 12/17/2019 11:48:34 Reading Location: [facility] C013V Neuro Reading Room RAD, CHEST, 1 VIEW, NON [id number] 10:42:00Reason for exam:->intubationFINAL REPORT CLINICAL HISTORY: intubation TECHNIQUE: 1 view of the chest. COMPARISON: 12/16/2019 IMPRESSION: An ETT and NGT appear unchanged. Left lung base pleural-parenchymal opacification is unchanged. The cardiomediastinal silhouette is magnified by technique with a pacemaker. Signed: Gil Pastor Verified Date/Time: 12/17/2019 10:42:15 Reading Location: [facility] Radiology Reading Room URINE [id number] 10:21:00 Test Item Value Reference Range Interpretation Comments CULTURE (BEAKER) (test code = 1095) No growth [id number] 04:42:00 Test Item Value Reference Range Interpretation Comments FERRITIN (BEAKER) (test code = 4442 ng/mL 5-275 H 361) Printing Specialist ID - ADAMARIS MTSH/FREE T4 IF [id number] 04:41:00 Test Item Value Reference Range Interpretation Comments THYROID STIMULATING HORMONE 0.72 uIU/mL 0.35-4.94 (BEAKER) (test code = 772) Printing Specialist ID - ADAMARIS MVITAMIN B12 AND [id number] 04:41:00 Test Item Value Reference Range Interpretation Comments VITAMIN B12 (BEAKER) (test code = 767 pg/mL 213-816 774) FOLATE (BEAKER) (test code = 362) 5.1 ng/mL >=7.0 L Printing Specialist ID - ADAMARIS BENIGNO, TIBC, % SAT. (WITHOUT FERRITIN)2019-12-17 03:47:00 Test Item Value Reference Range Interpretation Comments IRON (BEAKER) (test code = 547) 21.0 ug/dL 40.0-160.0 L TOTAL IRON BINDING CAPACITY 115 ug/dL 250-450 L (BEAKER) (test code = 769) IRON % SATURATION (2) (BEAKER) 18 % 20-55 L (test code = 2590) Printing Specialist ID - ADAMARIS [id number] 03:46:00 Test Item Value Reference Range Interpretation Comments MAGNESIUM (BEAKER) (test code = 2.1 mg/dL 1.6-2.6 627) Printing Specialist ID - ADAMARIS MBASIC METABOLIC [id number] 03:46:00 Test Item Value Reference Range Interpretation [...] S NOT APPLICABLE FOR DIALYSIS PATIEN TS. Printing Specialist ID - ADAMARIS MHEPATIC FUNCTION [id number] 03:46:00 Test Item Value Reference Range Interpretation [...] (test code = 15 U/L 6-55 347) Printing Specialist ID - ADAMARIS MCBC W/PLT COUNT & AUTO [id number] 03:46:00 Test Item Value Reference Range Interpretation [...] PERCENT (BEAKER) (test code = 2801) PROTHROMBIN [id number] 03:35:00 Test Item Value Reference Range Interpretation [...] for patients wiht mechanical heart valves.LACTIC ACID, [id number] 03:28:00 Test Item Value Reference Range Interpretation Comments LACTATE BLOOD VENOUS 1.1 mmol/L 0.5-2.2 Specime n slightly (2) (BEAKER) (test hemolyzed code = 3843) Printing Specialist ID - ADAMARIS MRETICULOCYTE [id number] 03:21:00 Test Item Value Reference Range Interpretation Comments RETICULOCYTE COUNT PCT (BEAKER) (test 2.1 % 0.5-1.8 H code = 575) Printing Specialist ID - 6000BLOOD GAS, [id number] 03:16:00 Test Item Value Reference Range Interpretation [...] (BEAKER) (test code = 1819) 50.0 % [id number] 00:42:00 Test Item Value Reference Range Interpretation Comments CORTISOL, TOTAL (BEAKER) (test 16.3 ug/dL 3.7-19.4 code = 7295) Printing Specialist ID - BSVANCOMYCIN LEVEL, [id number] 21:12:00 Test Item Value Reference Range Interpretation Comments VANCOMYCIN TROUGH (BEAKER) (test 6.1 ug/mL 10.0-20.0 L code = 522) Printing Specialist ID - [id number] 21:11:00 Test Item Value Reference Range Interpretation Comments MAGNESIUM (BEAKER) 1.7 mg/dL 1.6-2.6 Specimen slightly (test code = 627) hemolyzed Printing Specialist ID - BSBASIC METABOLIC [id number] 21:11:00 Test Item Value Reference Range Interpretation [...] S NOT APPLICABLE FOR DIALYSIS PATIEN TS. Printing Specialist ID - BSPOCT-GLUCOSE [id number] 18:34:00 Test Item Value Reference Range Interpretation Comments POC-GLUCOSE METER 95 mg/dL 70-110 : TESTED A T [facility] 6720 (BEAKER) (test code = [place] [facility], 1538) 40[address]: Printing Specialist/Techni lars ID = [id number] for CAROL ANN RAE RAD, CHEST, 1 VIEW, NON [id number] 15:48:00Reason for exam:->ett placementShould this be performed [...] MDReport Verified Date/Time: 12/16/2019 15:48:48 Reading Location: [facility] Radiology Reading Room BLOOD CULTURE IDENTIFICATION [id number] 15:32:00 Test Item Value Reference Interpretation Comments Range LISTERIA MONOCYTOGENES Not detected Not detected (test code = 20160729) STAPHYLOCOCCUS (test Detected Not detected A Coagula se negative code = 20161001) Staph specie s (CoNS)- methici llin susceptibleFirs t-seble e therapy: Cefa zolin or Oxacillin (Oxacillin pref erred if FLIGHT ATTENDANT involvem ent) MecA NOT DETECTEDPossibl e contamination. The likelihood of pathogenicity i s increased if th e organism is obs erved in multiple blo od cultures obtain ed from separate venipunctures.R efere nce Range: Not Detected STAPHYLOCOCCUS AUREUS Not detected Not detected (test code = 4201623) STREPTOCOCCUS (test Not detected Not detected code = 2876603) STREPTOCOCCUS Not detected Not detected AGALACTIAE (GROUP B) (test code = 4687266) STREPTOCOCCUS Not detected Not detected PNEUMONIAE (test code = 1255423) STREPTOCOCCUS PYOGENES Not detected Not detected (GROUP A) (test code = 3876855) ACINETOBACTER BAUMANNII Not detected Not detected (test code = 7131638) HAEMOPHILUS INFLUENZAE Not detected Not detected (test code = 8830019) NEISSERIA MENINGITIDIS Not detected Not detected (test code = 6514036) ENTEROBACTERIACEAE Not detected Not detected (test code = 5369936) ENTEROBACTER CLOACOE Not detected Not detected COMPLEX (test code = 7520991) KLEBSIELLA OXYTOCA Not detected Not detected (test code = 5346357) KLEBSIELLA PNEUMONIAE Not detected Not detected (test code = 1650) PROTEUS (test code = Not detected Not detected 4523775) SERRATIA MARCESCENS Not detected Not detected (test code = 6249848) JAMAL ALBICANS (test Not detected Not detected code = 7608960) JAMAL GLABRATA (test Not detected Not detected code = 8962604) JAMAL KRUSEI (test Not detected Not detected code = 0274285) JAMAL PARAPSILOSIS Not detected Not detected (test code = 7094733) JAMAL TROPICALIS Not detected Not detected (test code = 7955838) ESCHERICHIA COLI (test Not detected Not detected code = 0397532) METHICILLIN-RESISTANCE Not detected Not detected GENE (test code = 5622003) VANCOMYCIN-RESISTANCE GENE (test code = 6162478) CARBAPENEM-RESISTANCE Not detected Not detected GENE (test code = 0152019) ENTEROCOCCUS-BEAKER Not detected Not detected (test code = 9820774) PSEUDOMONAS Not detected Not detected AERUGINOSA-BEAKER (test code = 2081408) Other bacteria and resistance markers not targeted by this PCR panel cannot be excluded; therefore clinical correlation and follow up of serology, culture results, and other molecular studies is required. The results are not intended to be used as the sole means for clinical diagnosis or patient management decisions. This sample was tested at the [facility] Molecular Diagnostics Laboratory using the [employer] Blood Culture ID Panel. It is FDA cleared and has been verified and approved by the [facility] Molecular Diagnostics Laboratory for clinical use. This laboratory is CLIA-certified and College ofAmerican Pathologists (CAP)-accredited to perform high complexity testing.PHOSPHORUS 2019-12-16 15:18:00 Test Item Value Reference Range Interpretation Comments PHOSPHORUS (BEAKER) (test code = 4.2 mg/dL 2.3-4.7 604) Printing Specialist ID - BSCOMPREHENSIVE METABOLIC [id number] 15:18:00 Test Item Value Reference Range Interpretation [...] S NOT APPLICABLE FOR DIALYSIS PATIEN TS. Printing Specialist ID - [id number] 15:09:00 Test Item Value Reference Range Interpretation Comments AMMONIA (BEAKER) (test code = 348) 30 mol/L 18-72 Printing Specialist ID - [id number]/[id number] 14:58:00 Test Item Value Reference Range Interpretation [...] INR is2.5-3.5 for patients wiht mechanical heart valves.[id number] 14:53:00 Test Item Value Reference Range Interpretation Comments MAGNESIUM (BEAKER) (test code = 1.6 mg/dL 1.6-2.6 627) Printing Specialist ID - BSLACTIC ACID, [id number] 14:46:00 Test Item Value Reference Range Interpretation Comments LACTATE BLOOD ARTERIAL (2) 1.1 mmol/L 0.5-2.2 (BEAKER) (test code = 2874) Printing Specialist ID - BSPROTHROMBIN TIME/[id number] 14:44:00 Test Item Value Reference Range Interpretation [...] for patients wiht mechanical heart valves.BLOOD GAS, [id number] 14:43:00 Test Item Value Reference Range Interpretation [...] code = 1819) 100.0 % SODIUM NA-STAT [id number] 14:43:00 Test Item Value Reference Range Interpretation Comments SODIUM (BEAKER) (test code = 381) 134 meq/L 135-148 L POTASSIUM-STAT [id number] 14:43:00 Test Item Value Reference Range Interpretation Comments POTASSIUM (BEAKER) (test code = 3.1 meq/L 3.6-5.5 L 379) GLUCOSE-STAT [id number] 14:43:00 Test Item Value Reference Range Interpretation Comments GLUCOSE RANDOM (BEAKER) (test code 126 mg/dL 70-110 H = 652) HGB/HCT (H&H) - STAT [id number] 14:43:00 Test Item Value Reference Range Interpretation [...] CELLS (BEAKER) (test code = 413) CALCIUM, [id number] 14:30:00 Test Item Value Reference Range Interpretation Comments CALCIUM IONIZED (BEAKER) (test 1.22 mmol/L 1.12-1.27 code = 698) PH, BLOOD (BEAKER) (test code = 7.44 1810) BLOOD GAS, [id number] 12:39:00 Test Item Value Reference Range Interpretation [...] code = 1819) 60.0 % SODIUM NA-STAT [id number] 12:39:00 Test Item Value Reference Range Interpretation Comments SODIUM (BEAKER) (test code = 381) 134 meq/L 135-148 L POTASSIUM-STAT [id number] 12:39:00 Test Item Value Reference Range Interpretation Comments POTASSIUM (BEAKER) (test code = 3.3 meq/L 3.6-5.5 L 379) GLUCOSE-STAT [id number] 12:39:00 Test Item Value Reference Range Interpretation Comments GLUCOSE RANDOM (BEAKER) (test code 116 mg/dL 70-110 H = 652) HGB/HCT (H&H) - STAT [id number] 12:39:00 Test Item Value Reference Range Interpretation Comments HEMOGLOBIN (BEAKER) (test code = 10.9 g/dL 13.0-16.8 L 410) HEMATOCRIT (BEAKER) (test code = 32.0 % 40.0-50.0 L 411) PROTHROMBIN TIME/[id number] 11:28:00 Test Item Value Reference Range Interpretation [...] is2.5-3.5 for patients wiht mechanical heart valves.CALCIUM, [id number] 11:03:00 Test Item Value Reference Range Interpretation Comments CALCIUM IONIZED (BEAKER) (test 1.25 mmol/L 1.12-1.27 code = 698) PH, BLOOD (BEAKER) (test code = 7.48 1810) BLOOD GAS, [id number] 11:03:00 Test Item Value Reference Range Interpretation [...] code = 1819) 55.0 % SODIUM NA-STAT [id number] 11:03:00 Test Item Value Reference Range Interpretation Comments SODIUM (BEAKER) (test code = 381) 134 meq/L 135-148 L POTASSIUM-STAT [id number] 11:03:00 Test Item Value Reference Range Interpretation Comments POTASSIUM (BEAKER) (test code = 2.8 meq/L 3.6-5.5 L 379) GLUCOSE-STAT [id number] 11:03:00 Test Item Value Reference Range Interpretation Comments GLUCOSE RANDOM (BEAKER) (test code 115 mg/dL 70-110 H = 652) HGB/HCT (H&H) - STAT [id number] 11:03:00 Test Item Value Reference Range Interpretation Comments HEMOGLOBIN (BEAKER) (test code = 10.6 g/dL 13.0-16.8 L 410) HEMATOCRIT (BEAKER) (test code = 31.0 % 40.0-50.0 L 411) [id number] 08:20:00 Test Item Value Reference Range Interpretation Comments MAGNESIUM (BEAKER) (test code = 1.7 mg/dL 1.6-2.6 627) Printing Specialist ID - GALAPBASIC METABOLIC [id number] 08:20:00 Test Item Value Reference Range Interpretation [...] S NOT APPLICABLE FOR DIALYSIS PATIEN TS. Printing Specialist ID - GALAPSpecimen slightly ictericHEPATIC FUNCTION [id number] 08:20:00 Test Item Value Reference Range Interpretation [...] (test code = 18 U/L 6-55 347) Printing Specialist ID - GALAPSpecimen slightly ictericPROTHROMBIN [id number] 08:00:00 Test Item Value Reference Range Interpretation [...] is2.5-3.5 for patients wiht mechanical heart valves.POCT-GLUCOSE [id number] 21:37:00 Test Item Value Reference Range Interpretation Comments POC-GLUCOSE METER 179 mg/dL 70-110 H : TESTED A T [facility] 6720 (BEAKER) (test code = [employer] [facility], 1538) [address]: Printing Specialist/Techni lars ID = [id number] for Catrachita Villanueva POCT-GLUCOSE [id number] 17:50:00 Test Item Value Reference Range Interpretation Comments POC-GLUCOSE METER 121 mg/dL 70-110 H : TESTED A T [facility] 6720 (BEAKER) (test code = [place], 1538) [address]: Printing Specialist/Techni lars ID = [id number] for LATISHA WELCH BLOOD GAS, [id number] 17:25:00 Test Item Value Reference Range Interpretation [...] = 1819) 32.0 % EEG AWAKE AND [id number] 16:41:00Reason for exam:->amsDATE OF TEST: 12/15/19 DATE OF REPORT: 12/15/19 ACC: [id number] Start: 1603 End: 1624 CPT Code: 00464 ICD-10: R56.9 HISTORY: 74 yo male with HTN, HLD, CAD, Obesity, AVN s/p dual ppm 2006 and cardiomyopathy s/p BIV-ICD upgrade in 2014 who was transferred from [facility] for lead extraction. Patient was admitted to [facility] with change in mental status. Per [...] Chowdary MD, MS Neurophysiol ogy/Epilepsy Attending POCT-GLUCOSE [id number] 14:28:00 Test Item Value Reference Range Interpretation Comments POC-GLUCOSE METER 153 mg/dL 70-110 H : TESTED A T [facility] 6720 ([employer]) (test code = [employer] [facility], 1538) 52902: Printing Specialist/Techni lars ID = [id number] for LATISHA WELCH POCT-GLUCOSE [id number] 08:55:00 Test Item Value Reference Range Interpretation Comments POC-GLUCOSE METER 117 mg/dL 70-110 H : TESTED A T [facility] 6720 ([employer]) (test code = [employer] [employer] [facility], 1538) 145[address]: Printing Specialist/Techni lars ID = [id number] for LATISHA WELCH CBC W/PLT COUNT & AUTO [id number] 04:22:00 Test Item Value Reference Range Interpretation [...] (BEAKER) (test code = 2801) BASIC METABOLIC [id number] 03:32:00 Test Item Value Reference Range Interpretation [...] S NOT APPLICABLE FOR DIALYSIS PATIEN TS. Printing Specialist ID - DBSpecimen slightly ictericLIPID [id number] 03:32:00 Test Item Value Reference Range Interpretation [...] Borderline 130-159 High 160-189 Very High >=190 Printing Specialist ID - DBSpecimen slightly ictericHEPATIC FUNCTION PANEL [...] (test code = 22 U/L 6-55 347) Printing Specialist ID - DBSpecimen slightly ictericPROTHROMBIN TIME/[id number] 03:09:00 Test Item Value Reference Range Interpretation [...] INR is2.5-3.5 for patients wiht mechanical heart valves.Xcrvkujit5501-32-09 14:14:62248 [facility] AdwsdzzDdawvngjn7104-92-16 14:14:003.3[facility] 2015-05-01 14:14:0028[facility] WlaflceIpwodkkna0427-37-45 14:14:001.01[facility] WcyijxyNiyrxlevk0704-94-83 14:14:009.9[facility] AbborwbWnbuqluqc3603-39-95 16:03:25451Kiwcxqxp LfkfzveMobmvnacv5640-89-71 16:03:003.5[facility] Mceuezfvn5237-85-31 16:03:0021[facility] PmkqusgQfiuhfpph7365-61-08 16:03:000.97 [facility] HhwhuchPhkkdwuub5314-25-62 16:03:0010.1[facility] 2015-04-24 16:03:45488Muxjobks GjxkuwfDxlwapgle2585-52-41 16:03:0045[facility] ZxmftvjAnjprajxp7507-00-23 16:03:63807Lbnzefzv ZxzexutHstpijleu5781-19-56 16:03:004.4[facility] RwdaoraYuyirhcps0927-69-54 16:03:0059[facility] Luis Szabhnoza3949-47-08 16:03:0024[facility] PnaibulYranghfxu1710-03-37 16:03:0020 [facility] ZamwynaGaembcitk7567-46-12 16:03:001.9[facility] 2015-04-24 16:03:00 Test Item Value Reference Range Interpretation Comments INR (test code = INR) 1.05 1 0.8-1.5 [facility] CiftxedBjqgxqdqqgw3441-58-61 16:03:00 Test Item Value Reference Range Interpretation Comments PTT PATIENT (test code = PTT PATIENT) 27.6 s 22.0-36.0 [facility] ByvthjqJpfwvqfsfli5909-48-58 16:03:00 Test Item Value Reference Range Interpretation Comments INR (test code = INR) 1.05 1 0.8-1.5 [facility] EumjrssBfasakxalmv1297-56-83 16:03:00 Test Item Value Reference Range Interpretation Comments PTT PATIENT (test code = PTT PATIENT) 27.6 s 22.0-36.0 [facility] YqvwicvIsuibippeo7298-43-01 16:03:0014.7[facility] 2015-04-24 16:03:0043.9[facility] IljbuhxOoifmmmos6704-87-00 16:27:64386Qixwnysg CgcianrIbbxiweja9047-49-40 16:27:003.6[facility] ZmroqrmBhjwgkixn6951-72-14 16:27:60151Ejtthaqk DuwkfmoTgcnyacjs5243-42-48 16:27:003.6[facility] Mpgpmvexb6330-97-83 16:27:0019[facility] RhaclqvFmhfbhvgf4985-63-63 16:27:001.09 [facility] RillqhwYfpnkcgag9462-66-93 16:27:0010.8[facility] 2014-07-07 16:17:26359Wvgmhren SjynidtOfuykovue6032-98-33 16:17:003.8[facility] OvwsgsrMbbplcexd3040-19-51 16:17:29090Efivfzhz DuadxbrGmtxzhjqy8262-24-88 16:17:003.8[facility] MdhsjulSxrtbbywo5704-76-01 16:17:0015[facility] [place] [id number] 16:17:000.96[facility] [id number] 16:17:0010.1 [facility] [id number] 16:17:0014.1[facility] 2014-07-07 16:17:0041.2[facility] [id number] 22:30:481.45[facility] [id number] 22:30:481.45[facility] ZaxuutfVusnaepqd2334-45-83 22:30:481.45[facility]
[2021-04-18] MEDS ORDERED: OXYCODONE HCL 5 MG TAB PO PRN (19:06)
[2021-04-18] MEDS: HEPARIN 5000 UNIT/ML 1 ML VIAL SQ SCH (19:21)
[2021-04-18] MEDS ORDERED: GABAPENTIN 100 MG CAP PO SCH (21:00)
[2021-04-18] MEDS: HYDRALAZINE HCL 10 MG TABLET PO SCH (22:26)
[2021-04-18] MEDS: ATORVASTATIN 20 MG TAB PO SCH (22:26)
[2021-04-19] MEDS: carvediloL 12.5 MG TAB PO SCH ×2 (05:20→17:14)
[2021-04-19 05:35] LABS: Urine Appearance CLEAR (Clear); Urine Bilirubin NEGATIVE (Negative); Urine Blood NEGATIVE (Negative); Urine Color YELLOW (Yellow); Urine Glucose NEGATIVE (Negative); Urine Protein NEGATIVE (Negative); Urine Urobilinogen >=8.0 mg/dL (0.2-1.0); Urine pH 7.5 (5.0-7.0)
[2021-04-19] MEDS: HEPARIN 5000 UNIT/ML 1 ML VIAL SQ SCH ×2 (06:15→20:00)
[2021-04-19 06:21] LABS: Urine Bacteria <20 /HPF (NONE SEEN); Urine RBC NONE SEEN /HPF (NONE SEEN)
[2021-04-19 06:44] LABS: Absolute Lymphocytes (CBC) 2.4 K/uL (0.7-4.9); Basophils % 0.6 % (0-1.3); Hematocrit 36.8 % (39.6-49.0); Lymphocytes % 25.4 % (15.3-44.8); RBC Red Blood Cell Count 4.14 M/uL (4.33-5.43)
[2021-04-19 07:09] LABS: Albumin 2.7 g/dL (3.4-5.0); BUN Blood Urea Nitrogen 22 mg/dL (7-18); Bicarbonate 29 mmol/L (21-32); Glucose Level 108 mg/dL (74-106); Magnesium 1.9 mg/dL (1.8-2.4); Potassium 4.1 mmol/L (3.5-5.1); Sodium Level 135 mmol/L (136-145)
[2021-04-19] MEDS ORDERED: AMLODIPINE 10 MG TAB PO SCH (08:00)
[2021-04-19] MEDS: lisinopriL 10 MG TAB PO SCH (08:00)
[2021-04-19] MEDS: LIDOCAINE 4% PATCH TOP SCH (08:09)
[2021-04-19] MEDS: ASPIRIN EC 81 MG TAB PO SCH (08:10)
[2021-04-19] MEDS: FUROSEMIDE 20 MG TABLET PO SCH (08:11)
[2021-04-19] MEDS: ACETAMINOPHEN 500 MG TAB PO PRN ×2 (08:11→15:32)
[2021-04-19] MEDS: HYDRALAZINE HCL 10 MG TABLET PO SCH ×3 (09:00→20:08)
--- NOTE | 2021-04-19 16:53 | R.HP ---
HISTORY AND PHYSICAL FACILITY: [facility] ENCOUNTER DATE AND TIME: 04/19/2021 16:47 (CDT) MR#: [id number] NAME RENE CHAMBERLAIN ADDRESS: [address] [place] [address] RO[address] [facility] CITY: [place]IP [id number] PHONE: DATE OF : 1945 AGE: 75 SSN# [id number] GENDER: Male DEXTERITY Right-handed MARITAL STATUS RACE White PRE-HOSPITAL LIVING SETTING 01 - Home (private home/apt. board/care, assisted living, mcc, transitional living) PRE-HOSPITAL LIVING WITH Alone ENCOUNTER PHYSICIAN: Dr. Tristin Joy M.D. REFERRING DOCTOR: Magui Sosa DATE OF ADMISSION: 04/18/2021 16:50 (CDT) REFERRING FACILITY [facility] HOME TYPE AND DETAILS: Type of home: single family house # of steps within the residence: 0 # of steps to enter the residence: 0 # of levels in the residence: 1 ONSET DATE: 04/07/2021 PRIMARY DIAGNOSIS-RELATED SURGERIES: Emergency Fusion of T6-T12 - performed by Dr Mir on 04/13/2021 HISTORY OF PRESENT ILLNESS (HPI): Pt. is a 75 yo Right-handed white male. On 04/07/2021 he was admitted to [facility] and underwent emergency surgery for thoracic vert ebral fracture (Fusion of T6-T12 ) by Dr Mir. Pre-morbidly, Pt. was independent/mod-I in Transfers Control and Locomotion; and he had good Balance, Safety Awareness, Self-Care, Social Cognition, Sphincter Control, and Communication. Currently, he has deficits of Transfers Control, Balance, Locomotion, Safety Awareness, Self-Care, So cial Cognition, Sphincter Control, and Communication. Pt. is now referred to [facility] for acute in-patient rehabilitation in order to maximize patient's functional independence in activities of daily living, strength, ROM, and mobi lity. Patient has realistic goal of being discharged at assistance level 6-Irving to reside at Home with Fri ends. MEDICATION ALLERGIES: bactrim tetanus toxoid ENVIRONMENTAL ALLERGIES: None Known - Substance Allergies None Known - Other Allergies None Known PAST MEDICAL HISTORY: HTN HLD CAD SOCIAL HISTORY: - Home Living Alone REVIEW OF SYSTEMS: - Gen No Chills Fatigue No Fever - Eyes No Double Vision No itchiness - ENMT Difficulty Swallowing - CVS No Chest Discomfort No Chest Pain No Fatigue No Weight Gain - Resp No Cough No Shortness of Breath - GI Continent No Abdominal Pain No Constipation No Diarrhea - Continent No Kidney Pain No Painful Urination No Urinary Urgency - MSK Joint Pain Muscle Cramps Stiffness - Skin No Itching No Rash No Suspicious Lesions - Neuro Coordination Difficulty No Difficulty with Concentration No Memory Loss No Seizures Weakness - Psych No Anxiety No Depression No HIV Exposure No Persistent Infections No Seasonal Allergies - Endo No Cold/Heat Intolerance No Excessive Hunger No Excessive Thirst No Excessive Urination PHYSICAL EXAM - Gen Alert and awake Lying in bed No apparent distress Oriented to: person, time, and place - Skin No breakdown Normacephalic - Eyes No abnormalities - ENMT No abnormalities - Neck No abnormalities - CVS RRR - Chest Turtle shell is in place. - Resp Clear to auscultation - Abd + bowel sounds - GI Soft Deferred - No abnormalities - Ext No significant edema. - MSK 4+/5 weakness in both lower extremities. - Neuro No focal deficits - Psych No abnormalities VITAL SIGNS Temperature: 97.8 F SBP/DBP: 116/56 Pulse: 72 Resp: 16 NURSING: - Shower allowing shower - Bladder care per protocol - Skin care per protocol PRECAUTIONS: - N/A Thoracic Precautions ACTIVITIES OOB only with supervision QI SCORES: - Self-Care A. Eating 04-Supervision or touching assistance B. Oral hygiene 04-Supervision or touching assistance C. Toileting hygiene 03-Partial/moderate assistance E. Shower/bathe self 03-Partial/moderate assistance F. Upper body dressing 03-Partial/moderate assistance G. Lower body dressing 03-Partial/moderate assistance H. Putting on/taking off footwear 02-Substantial/maximal assistance - Mobility A. Roll left and right 03-Partial/moderate assistance B. Sit to lying 03-Partial/moderate assistance C. Lying to sitting on side of bed 03-Partial/moderate assistance D. Sit to stand 03-Partial/moderate assistance E. Chair/xre-yn-ybnpn transfer 03-Partial/moderate assistance F. Toilet transfer 03-Partial/moderate assistance G. Car transfer 10-Not attempted due to environmental limitations I. Walk 10 feet 88-Not attempted due to medical condition or safety concerns J. Walk 50 feet with two turns 88-Not attempted due to medical condition or safety concerns K. Walk 150 feet 88-Not attempted due to medical condition or safety concerns L. Walking 10 feet on uneven surfaces 88-Not attempted due to medical condition or safety concerns M. 1 step (curb) 88-Not attempted due to medical condition or safety concerns N. 4 steps 88-Not attempted due to medical condition or safety concerns O. 12 steps 88-Not attempted due to medical condition or safety concerns P. Picking up object 88-Not attempted due to medical condition or safety concerns - Bladder and Bowel Bladder continence 4-Always incontinent Bowel continence 3-Always incontinent - Endurance Poor - Balance Poor - Safety Awareness Poor CURRENT FUNC. DEFICITS: Self-Care, Mobility, Endurance, Balance, and Safety Awareness MEDICATIONS: - Other See attached MAR (Medication Administration Record) ASSESSMENT: Pt. is a 75 yo Right-handed white male.On 04/07/2021 he was admitted to [facility] and [facility] emergency surgery for thoracic vertebral fracture (Fusion of T6-T12 ) by Dr Mir.Pre-morbidly , Pt. was independent/mod-I in Transfers Control and Locomotion; and he had good Balance, Safety Awar eness, Self-Care, Social Cognition, Sphincter Control, and Communication.Currently, he has deficits o f Transfers Control, Balance, Locomotion, Safety Awareness, Self-Care, Social Cognition, Sphincter Co ntrol, and Communication.Pt. is now referred to [facility] for acute in-patien t rehabilitation in order to maximize patient's functional independence in activities of daily living , strength, ROM, and mobility.- Rehab Goal Patient has realistic goal of being discharged at assistance level 6-Irving to reside at Home with Fri ends. REHAB PLAN: - Physical Therapy Gait dysfunction - to improve, our physical therapists will perform initial evaluation of pt's status upon admission and devise an individualized program for Gait Training, and Wheel Chair mobility Inability to transfer - to improve, our physical therapists will perform initial evaluation of pt's s tatus upon admission and devise an individualized program for Bed mobility Need for home safety evaluation - to improve, our physical therapists will perform initial evaluation of pt's status upon admission and devise an individualized program for Home Evaluation Need in caregiver upon discharge - to improve, our physical therapists will perform initial evaluatio n of pt's status upon admission and devise an individualized program for Caregiver Training Edema - to improve, our physical therapists will perform initial evaluation of pt's status upon admi ssion and devise an individualized program for Elevation Training, and Lymphedema Therapy New precaution - to improve, our physical therapists will perform initial evaluation of pt's status u tiffanie admission and devise an individualized program for Patient precaution education Poor balance - to improve, our physical therapists will perform initial evaluation of pt's status upo n admission and devise an individualized program for Balance Training Weakness - to improve, our physical therapists will perform initial evaluation of pt's status upon ad mission and devise an individualized program for Aquatic Therapy, Neuromuscular Reeducation, and Stre ngthening Achieving independence - to improve, our physical therapists will perform initial evaluation of pt's status upon admission and devise an individualized program for Community Reintegration Activities - Occupational Therapy ADL deficits - to improve, our occupation therapists will perform initial evaluation of pt's status u tiffanie admission and devise an individualized program for Bathing, Bed mobility, Community Reintegration , Cooking, Dressing, Eating, Fine Motor Skills, Grooming, Homemaking, Kitchen Mobility, Laundry, Gila ent Education, Safety Awareness, Splinting - Positioning, Transfers(Toilet, Tub, Shower), and Wheel C hair Management Cognitive deficits - to improve, our occupation therapists will perform initial evaluation of pt's st atus upon admission and devise an individualized program for Cognition - orientation Need for child care teacher - to improve, our occupation therapists will perform initial evaluation of pt's s tatus upon admission and devise an individualized program for Caregiver Training Weakness - to improve, our occupation therapists will perform initial evaluation of pt's status upon admission and devise an individualized program for Aquatic Therapy, Balance, Endurance, UE ROM, and U E strengthening MEDICAL PLAN: - Diet Type Start Regular - Diet - Liquid Texture Start Regular - Tube Feed Start N/A - Bladder care per protocol - N/A Thoracic Precautions - Skin care per protocol - Other See attached MAR (Medication Administration Record) - Diet - Solid Texture Regular - Shower shower DISCHARGE PLAN: - Estimated Length of Stay (days) 27. - Consensus on plan Discharge plan has been discussed with primary caregiver. Patient/Family is in agreement with the tierra n. Primary caregiver is in agreement with the plan. - Patient/Family Goals Return home independently. SIGNATURE PANEL: (CDT)
--- NOTE | 2021-04-19 16:54 | PAPE ---
POST ADMISSION PHYSICIAN EVALUATION PATIENT: [facility] MR# [id number] REFERRING DOCTOR Magui Sosa EVALUATION DATE AND TIME 04/19/2021 16:53 (CDT) NAME RENE CHAMBERLAIN DATE OF 1945 AGE 75 PHONE SSN# [id number] GENDER male EVALUATING PHYSICIAN Dr. Tristin Joy M.D. ADMISSION DIAGNOSIS: thoracic vertebral fracture ONSET DATE 04/07/2021 POST-ADMISSION FUNCTIONAL/MEDICAL STATUS: - Bladder Same Bladder control device used: diaper - Bowel Same Bowel control device used: diaper - Walking Same score based on distance walked: 1(<=50ft) STATUS CHANGE EVALUATION: No change in Functional or Medical Status is identified compared with Pre-Admission screening. PATIENT NEEDS CLOSE MEDICAL SUPERVISION BY A REHABILITATION PHYSICIAN FOR: Coordination of Treatment Team Post-Op Complications Wound Care PATIENT REQUIRES 24X7 REHAB NURSING FOR MEDICAL AND FUNCTIONAL MGT. OF THE FOLLOWING DEFICITS: Disease Management Medication Management Patient/Family Education Providing Safe Environment Skin Integrity PATIENT REQUIRES INTENSIVE, COORDINATED INTERDISCIPLINARY APPROACH TO REHAB: Arranging Home Equipment/Services Discharge Planning Family Intervention/Training Soa Integration Developer/Case Management LIST OF IDENTIFIED AND POTENTIAL PROBLEMS: Alteration in leisure activities Bladder, Incontinence Bowel, Incontinence Infection, Actual or Potential Mobility Impaired Pain, Alteration in Comfort Self Care Deficit Skin Integrity, Actual or Potential Urinary Tract Infection (UTI), Actual or Potential RISK FOR COMPLICATIONS - N/A Injusry/SX to Thoracic Spine - TLSO. Acute Hypoxemic respiratory failure. acute diastolic heart failu re. HLD. HTN. - CAD CAD. acute encephalopathy. automatic cardioverter/defibrillator present. - Arrhythmia hyperlipidemia. JUANCHO. PATIENT COULD BE AT RISK FOR COMPLICATIONS FROM ADVERSE MEDICAL CONDITIONS DUE TO HIS/HER COMORBIDITI ES AND THE RIGORS OF THE INTENSIVE REHABILLITATION PROGRAM. METHODS OR INTERVENTIONS TO AVOID COMPLIC ATIONS INCLUDE: - Bleeding Assess lab values and manage abnormalities. Nursing to teach precautions for anti-coagulation therapy . Wound to be assessed every shift. - Infection Clinical staff to assess and manage the signs and symptoms of infection including fever, redness, war mth, etc. - Urinary Tract Infection - Falls Patient will be evaluated for Fall Precautions and will be placed on Fall Precautions as indicated pe r protocol. - Skin Breakdown Nursing will assess skin daily using assessment tool and will place on Skin Breakdown Precautions as indicated per protocol. - Pain Clinical staff may employ non-medication methods such as massage, distraction, decrease stimulus, etc . as needed. Clinical staff will assess patient's pain level every shift per protocol to assess and e nsure pain management effectiveness. Medications will be given and the pain level re-assessed. PRELIMINARY PLAN OF CARE: - Physical Therapy Patient needs Physical Therapy for a daily minimum of 1.5 hours at least 5 out of 7 days, to improve: Mobility, Strengthening, Transfers, Stretching, ROM, Endurance, Ability to manage stairs, Gait, and Balance. - Speech Therapy Patient needs Speech Therapy for a daily minimum of 0.5 hours at least 5 out of 7 days, to improve: S wallowing, Cognition, Language Skills, and Compensatory Strategies. - Rehabilitation Nursing Patient requires 24x7 Rehabilitation Nursing for: Pain Issues, Identifying and preventing risk factor s, Monitoring and reporting current medical conditions, Assisting with ambulation and transfer, Flor ting with all ADL-s, Teaching patients about disease process and medications, Family teaching, Provid ing safe environment, Bowel and Bladder Issues, Skin Integrity, and Medication Management. Patient needs Soa Integration Developer and/or Case Management for: Discharge Planning, Arranging Home Equipmen t or Services, and Family Interventions. - Dietary and Nutrition Services Patient needs Dietary and Nutrition Services for: Adequate Nutrition, Nutritional Supplements, and Nu tritional Education. - Occupational Therapy Patient needs Occupational Therapy for a daily minimum of 1.5 hours at least 5 out of 7 days, to impr ove Activities of Daily Living, including: Eating, Grooming, Bathing, Dressing, Toileting, Toilet Tra nsfers, Community Reintegration, Higher functional activities, Adaptive Equipment, Splinting, Househo ld Tasks, and Other activities as determined. QI SCORES: - Self-Care A. Eating 04-Supervision or touching assistance B. Oral hygiene 04-Supervision or touching assistance C. Toileting hygiene 03-Partial/moderate assistance E. Shower/bathe self 03-Partial/moderate assistance F. Upper body dressing 03-Partial/moderate assistance G. Lower body dressing 03-Partial/moderate assistance H. Putting on/taking off footwear 02-Substantial/maximal assistance - Mobility A. Roll left and right 03-Partial/moderate assistance B. Sit to lying 03-Partial/moderate assistance C. Lying to sitting on side of bed 03-Partial/moderate assistance D. Sit to stand 03-Partial/moderate assistance E. Chair/msh-sp-kzcmw transfer 03-Partial/moderate assistance F. Toilet transfer 03-Partial/moderate assistance G. Car transfer 10-Not attempted due to environmental limitations I. Walk 10 feet 88-Not attempted due to medical condition or safety concerns J. Walk 50 feet with two turns 88-Not attempted due to medical condition or safety concerns K. Walk 150 feet 88-Not attempted due to medical condition or safety concerns L. Walking 10 feet on uneven surfaces 88-Not attempted due to medical condition or safety concerns M. 1 step (curb) 88-Not attempted due to medical condition or safety concerns N. 4 steps 88-Not attempted due to medical condition or safety concerns O. 12 steps 88-Not attempted due to medical condition or safety concerns P. Picking up object 88-Not attempted due to medical condition or safety concerns - Bladder and Bowel Bladder continence 4-Always incontinent Bowel continence 3-Always incontinent - Endurance Poor - Balance Poor - Safety Awareness Poor POTENTIAL FUNCTIONAL GOALS FOR PATIENT TO ACHIEVE BY DISCHARGE: - Safety Precaution Patient will remain free from falls or injury at time of discharge. - Bed Mobility Patient will perform bed mobility at 4-Eugenio level of assistance. - Transfers Patient will complete transfers from bed to chair at 4-Eugenio level of assistance. - Mobility Patient will ambulate 150 ft with 4-Eugenio level of assistance with RW. PATIENT REHAB POTENTIAL Ean CHAMBERLAIN is able and expected to receive 3 hours of individualized therapy daily on at least 5 of ev tonie 7 days Ean CHAMBERLAIN's prognosis for significant practical improvement within a reasonable period of time appear s Good Expected level of measurable improvement will be of a practical value to Ean CHAMBERLAIN's functional capac ity or adaptations to impairments Has a viable Discharge Plan Medically appropriate; condition is sufficiently stable to participate in intensive rehab program DISCHARGE PLAN: - Estimated Length of Stay (days) 27. - Consensus on plan Discharge plan has been discussed with primary caregiver. Patient/Family is in agreement with the tierra n. Primary caregiver is in agreement with the plan. - Patient/Family Goals Return home independently. CONCLUSION ON REHABILITATION NECESSITY: I have evaluated patient's pre-admission functional status and, comparing it to the patient's post-ad mission functional status now, I conclude that the pre-admission assessment was accurate. Patient's c ondition on admission supports the medical necessity of admission to IRF. It is safe to proceed with patient's therapy program. SIGNATURE PANEL: (CDT)
[2021-04-19] MEDS ORDERED: ACETAMINOPHEN 500 MG TAB PO PRN (17:00)
[2021-04-19] MEDS: ATORVASTATIN 20 MG TAB PO SCH (20:07)
[2021-04-19] MEDS: GABAPENTIN 100 MG CAP PO SCH (20:08)
[2021-04-20] MEDS: carvediloL 12.5 MG TAB PO SCH ×2 (05:00→17:18)
[2021-04-20] MEDS: HEPARIN 5000 UNIT/ML 1 ML VIAL SQ SCH ×2 (06:18→20:00)
[2021-04-20] MEDS: ASPIRIN EC 81 MG TAB PO SCH (07:36)
[2021-04-20] MEDS: lisinopriL 10 MG TAB PO SCH (07:36)
[2021-04-20] MEDS: GABAPENTIN 100 MG CAP PO SCH ×2 (07:36→20:15)
[2021-04-20] MEDS: LIDOCAINE 4% PATCH TOP SCH (07:37)
[2021-04-20] MEDS: FUROSEMIDE 20 MG TABLET PO SCH (07:37)
[2021-04-20] MEDS: AMLODIPINE 5 MG TAB PO SCH ×2 (08:00→09:58)
[2021-04-20] MEDS: HYDRALAZINE HCL 10 MG TABLET PO SCH ×2 (09:00→20:16)
[2021-04-20] MEDS ORDERED: ACETAMINOPHEN 500 MG TAB PO PRN (09:08)
--- NOTE | 2021-04-20 09:41 | P.RH.PN ---
Estimated Length of Stay: 14 Expected Discharge Date: 05/01/21 Discharge Disposition Plan: Home Family Support: Yes It Security Consultant Goal: Mobility, Transfers, Self Care Vital Signs: Last Vital Signs Temp 97.7 F 04/20/21 07:05 Pulse 70 04/20/21 07:37 Resp 18 04/20/21 07:05 BP 140/78 04/20/21 07:37 Pulse Ox 96 04/20/21 07:05 Laboratory: Laboratory Last Values WBC 9.60 K/uL (4.3-10.9) 04/19/21 06:14 RBC 4.14 M/uL (4.33-5.43) L 04/19/21 06:14 Hgb 11.7 g/dL (13.6-17.9) L 04/19/21 06:14 Hct 36.8 % (39.6-49.0) L 04/19/21 06:14 MCV 89.1 fL (80-100) D 04/19/21 06:14 MCH 28.4 pg (27.0-35.0) 04/19/21 06:14 MCHC 31.9 g/dL (32.0-36.0) L 04/19/21 06:14 RDW 15.2 % (12.1-15.2) 04/19/21 06:14 Plt Count 352 K/uL (152-406) 04/19/21 06:14 MPV 8.0 fL (7.6-11.3) 04/19/21 06:14 Neutrophils % 65.8 % (41.7-73.7) 04/19/21 06:14 Lymphocytes % 25.4 % (15.3-44.8) 04/19/21 06:14 Monocytes % 6.6 % (3.3-12.3) 04/19/21 06:14 Eosinophils % 1.6 % (0-4.4) 04/19/21 06:14 Basophils % 0.6 % (0-1.3) 04/19/21 06:14 Absolute Neutrophils 6.3 K/uL (1.8-8.0) 04/19/21 06:14 Absolute Lymphocytes 2.4 K/uL (0.7-4.9) 04/19/21 06:14 Absolute Monocytes 0.6 K/uL (0.1-1.3) 04/19/21 06:14 Absolute Eosinophils 0.2 K/uL (0-0.5) 04/19/21 06:14 Absolute Basophils 0.1 K/uL (0-0.5) 04/19/21 06:14 Sodium 135 mmol/L (136-145) L 04/19/21 06:14 Potassium 4.1 mmol/L (3.5-5.1) 04/19/21 06:14 Chloride 103 mmol/L (98-107) 04/19/21 06:14 Carbon Dioxide 29 mmol/L (21-32) 04/19/21 06:14 BUN 22 mg/dL (7-18) H 04/19/21 06:14 Creatinine 0.76 mg/dL (0.55-1.3) 04/19/21 06:14 Estimated GFR > 90 mL/min (=/>90) 04/19/21 06:14 Glucose 108 mg/dL (74-106) H 04/19/21 06:14 Calcium 9.6 mg/dL (8.5-10.1) 04/19/21 06:14 Magnesium 1.9 mg/dL (1.8-2.4) 04/19/21 06:14 Albumin 2.7 g/dL (3.4-5.0) L 04/19/21 06:14 Prealbumin 17.0 mg/dL (20-40) L 04/19/21 06:14 Urine Color Yellow (Yellow) 04/19/21 05:09 Urine Appearance Clear (Clear) 04/19/21 05:09 Urine pH 7.5 (5.0-7.0) H 04/19/21 05:09 Ur Specific Crary 1.010 (1.005-1.030) 04/19/21 05:09 Glucose (UA)(Auto) Negative (Negative) 04/19/21 05:09 Urine Ketones Negative (Negative) 04/19/21 05:09 Urine Blood Negative (Negative) 04/19/21 05:09 Urine Nitrite Negative (Negative) 04/19/21 05:09 Urine Bilirubin Negative (Negative) 04/19/21 05:09 Urine Urobilinogen >=8.0 mg/dL (0.2-1.0) 04/19/21 05:09 Ur Leukocyte Esterase Negative (Negative) 04/19/21 05:09 Urine RBC None seen /HPF (NONE SEEN) 04/19/21 05:09 Urine WBC <5 /HPF (<5) 04/19/21 05:09 Ur Squamous Epith Cells <5 /HPF (NONE SEEN) 04/19/21 05:09 Urine Bacteria <20 /HPF (NONE SEEN) 04/19/21 05:09 Urine Culture Reflexed Not needed 04/19/21 05:09 Urine Total Protein Negative (Negative) 04/19/21 05:09 SARS-CoV-2 RNA (RT-PCR) Negative (NEGATIVE) 04/18/21 20:41 Weight: 210 lb Wound Present: No Closed Surgical Incision Present: Yes Negative Pressure Wound Therapy Present: No Physician Update: Labs reviewed and are stable. He has poor truncal stability. He has moderate lower back pain and is not sleeping well at night. He is not very motivated but is will in to work. His transfers are at moderate assistance. Walked moderate assistance 5' x 3. He may lean any direction. He appears depressed. Functional Improvement: pt presents with moderate <-> severe strength deficits in bilateral LEs. pt demonstrates poor trunk strength and stability. During both sitting and standing, pt exhibits significant balance deficits. pt requires a lot of verbal encouragement to perform activities on his own. pt often asks for assist with all functional tasks and functional mobility without first attempting. pt experiences poor tolerance to functional activity due to fatigue, weakness, and pain. Skilled PT services are necessary to address the above mentioned impairments and functional limitations. Summary: Patient's care plan and fci goals have been reviewed and revised as necessary. Please see the Rehabilitation Signature page for all necessary signatures.
[2021-04-20] MEDS ORDERED: TRAZODONE 50 MG TABLET PO PRN (12:16)
[2021-04-20] MEDS: TRAMADOL HCL 50 MG TAB PO PRN (15:48)
--- NOTE | 2021-04-20 16:07 | RAD REPORT ---
EXAM DESCRIPTION: RAD - Chest Single View - 04/20/2021 3:07 pm CLINICAL HISTORY: coughing Chest pain. COMPARISON: Chest Single View dated 07/08/2020; Chest Single View dated 07/04/2020; Chest Single View d ated 12/10/2019; Chest Single View dated 12/07/2019 FINDINGS: Portable technique limits examination quality. The lungs are grossly clear. The heart is mildly enlarged in size. Multi lead pacer/defibrillator dev ice is noted.Thoracolumbar hardware is place. IMPRESSION: No acute intrathoracic process suspected.
[2021-04-20] MEDS: ATORVASTATIN 20 MG TAB PO SCH (20:15)
[2021-04-20] MEDS: DOCUSATE NA/SENNA CONC 1 TAB PO PRN (20:16)
[2021-04-20] MEDS: MAGNESIUM OXIDE 400 MG TAB PO SCH (20:16)
[2021-04-20] MEDS: MELATONIN 3 MG TABLET PO PRN (20:16)
[2021-04-21] MEDS: TRAMADOL HCL 50 MG TAB PO PRN ×3 (00:15→20:06)
[2021-04-21] MEDS: carvediloL 12.5 MG TAB PO SCH ×2 (05:17→16:59)
[2021-04-21] MEDS: HEPARIN 5000 UNIT/ML 1 ML VIAL SQ SCH ×2 (06:15→18:20)
[2021-04-21] MEDS: LIDOCAINE 4% PATCH TOP SCH (07:06)
[2021-04-21] MEDS: MAGNESIUM OXIDE 400 MG TAB PO SCH ×2 (07:52→20:00)
[2021-04-21] MEDS: GABAPENTIN 100 MG CAP PO SCH ×2 (07:53→20:06)
[2021-04-21] MEDS: ASPIRIN EC 81 MG TAB PO SCH (07:53)
[2021-04-21] MEDS: DULOXETINE 20 MG CAP PO SCH (07:53)
[2021-04-21] MEDS: FUROSEMIDE 20 MG TABLET PO SCH (07:54)
[2021-04-21] MEDS: lisinopriL 10 MG TAB PO SCH (07:55)
[2021-04-21] MEDS: HYDRALAZINE HCL 10 MG TABLET PO SCH ×2 (08:00→20:06)
[2021-04-21] MEDS: AMLODIPINE 5 MG TAB PO SCH (08:00)
[2021-04-21] MEDS: POLYETHYL GLY 3350 17 GM/DOSE PO PRN (14:19)
[2021-04-21] MEDS: ATORVASTATIN 20 MG TAB PO SCH (20:06)
[2021-04-21] MEDS: MELATONIN 3 MG TABLET PO PRN (20:07)
[2021-04-21] MEDS: DOCUSATE NA/SENNA CONC 1 TAB PO PRN (20:31)
[2021-04-22] MEDS: carvediloL 12.5 MG TAB PO SCH ×2 (05:02→16:48)
[2021-04-22] MEDS: HEPARIN 5000 UNIT/ML 1 ML VIAL SQ SCH ×2 (06:03→18:12)
[2021-04-22] MEDS: POLYETHYL GLY 3350 17 GM/DOSE PO PRN (07:08)
[2021-04-22] MEDS: LIDOCAINE 4% PATCH TOP SCH (07:10)
[2021-04-22] MEDS: MAGNESIUM OXIDE 400 MG TAB PO SCH ×2 (07:58→19:12)
[2021-04-22] MEDS: AMLODIPINE 5 MG TAB PO SCH (07:59)
[2021-04-22] MEDS: HYDRALAZINE HCL 10 MG TABLET PO SCH ×2 (07:59→19:12)
[2021-04-22] MEDS: GABAPENTIN 100 MG CAP PO SCH ×2 (07:59→19:12)
[2021-04-22] MEDS: DULOXETINE 20 MG CAP PO SCH (08:00)
[2021-04-22] MEDS: lisinopriL 10 MG TAB PO SCH (08:00)
[2021-04-22] MEDS: ASPIRIN EC 81 MG TAB PO SCH (08:00)
[2021-04-22] MEDS: FUROSEMIDE 20 MG TABLET PO SCH (08:00)
[2021-04-22] MEDS ORDERED: HYDROCODONE/APAP 5/325 MG TAB PO PRN (10:52)
[2021-04-22] MEDS: TRAMADOL HCL 50 MG TAB PO PRN (19:12)
[2021-04-22] MEDS: ATORVASTATIN 20 MG TAB PO SCH (19:12)
[2021-04-22] MEDS: DOCUSATE NA/SENNA CONC 1 TAB PO SCH (19:12)
[2021-04-22] MEDS: MELATONIN 3 MG TABLET PO PRN (19:12)
[2021-04-23] MEDS: carvediloL 12.5 MG TAB PO SCH ×2 (05:07→16:55)
[2021-04-23] MEDS: HEPARIN 5000 UNIT/ML 1 ML VIAL SQ SCH ×2 (06:01→20:00)
[2021-04-23] MEDS: LIDOCAINE 4% PATCH TOP SCH (07:22)
[2021-04-23] MEDS: DULOXETINE 20 MG CAP PO SCH (07:25)
[2021-04-23] MEDS: GABAPENTIN 100 MG CAP PO SCH (07:25)
[2021-04-23] MEDS: FUROSEMIDE 20 MG TABLET PO SCH (07:25)
[2021-04-23] MEDS: ASPIRIN EC 81 MG TAB PO SCH (07:25)
[2021-04-23] MEDS: MAGNESIUM OXIDE 400 MG TAB PO SCH ×2 (07:48→19:52)
[2021-04-23] MEDS: lisinopriL 10 MG TAB PO SCH (08:00)
[2021-04-23] MEDS: HYDRALAZINE HCL 10 MG TABLET PO SCH ×2 (08:00→19:51)
[2021-04-23] MEDS: AMLODIPINE 5 MG TAB PO SCH ×2 (08:00→13:38)
[2021-04-23] MEDS: TRAMADOL HCL 50 MG TAB PO PRN (12:19)
--- NOTE | 2021-04-23 17:40 | R.PN ---
PROGRESS NOTES ENCOUNTER DATE AND TIME: 04/23/2021 17:28 (CDT) NAME RENE CHAMBERLAIN DATE OF : 1945 DATE OF ADMISSION: 04/18/2021 16:50 (CDT) thoracic vertebral fractureCHIEF COMPLAINT: Thoracic vertebral fracture and debility. SUBJECTIVE: Pt denied any depression. Pt denied any Shortness of Breath. Ambulated 65' with dizziness, verbal ques and rolling walker. CBC with differential is essentially normal, Na 135, prealbumin 17.0, glucose 108 to 151. VITAL SIGNS Temperature: 98.3 F SBP/DBP: 140/67 Pulse: 66 Resp: 16 MEDICATION ALLERGIES: bactrim tetanus toxoid ENVIRONMENTAL ALLERGIES: None Known - Substance Allergies None Known - Other Allergies None Known NURSING: - Shower allowing shower - Bladder care per protocol - Skin care per protocol PRECAUTIONS: - N/A Thoracic Precautions ACTIVITIES OOB only with supervision THERAPIES: - Orthotics/Prosthetics Orthotic Evaluation. Splinting/Casting. - Dietary and Nutrition Adequate Nutrition. Nutritional Education. Nutritional Supplements. PHYSICAL EXAM - Gen Alert and awake Lying in bed No apparent distress Oriented to: person, time, and place - Skin No breakdown Normacephalic - Eyes No abnormalities - ENMT No abnormalities - Neck No abnormalities - CVS RRR - Chest Turtle shell is in place. - Resp Clear to auscultation - Abd + bowel sounds - GI Soft Deferred - No abnormalities - Ext No significant edema. - MSK 4+/5 weakness in both lower extremities. - Neuro No focal deficits - Psych No abnormalities ASSESSMENT: Pt. is a 75 yo Right-handed white male.On 04/07/2021 he was admitted to [facility] and [facility] ent emergency surgery for thoracic vertebral fracture (Fusion of T6-T12 ) by Dr Mir.Pre-morbidly , Pt. was independent/mod-I in Transfers Control and Locomotion; and he had good Balance, Safety Awar eness, Self-Care, Social Cognition, Sphincter Control, and Communication.Currently, he has deficits o f Transfers Control, Balance, Locomotion, Safety Awareness, Self-Care, Social Cognition, Sphincter Co ntrol, and Communication.Pt. is now referred to [facility] for acute in-patien t rehabilitation in order to maximize patient's functional independence in activities of daily living , strength, ROM, and mobility.- Rehab Goal Patient has realistic goal of being discharged at assistance level 6-Irving to reside at Home with Fri ends. MDM/PLAN: - Physical Therapy Gait dysfunction - to improve, our physical therapists will perform initial evaluation of pt's statu s upon admission and devise an individualized program for Gait Training, and Wheel Chair mobility Inability to transfer - to improve, our physical therapists will perform initial evaluation of pt's status upon admission and devise an individualized program for Bed mobility Need for home safety evaluation - to improve, our physical therapists will perform initial evaluatio n of pt's status upon admission and devise an individualized program for Home Evaluation Need in caregiver upon discharge - to improve, our physical therapists will perform initial evaluati on of pt's status upon admission and devise an individualized program for Caregiver Training Edema - to improve, our physical therapists will perform initial evaluation of pt's status upon admis thom and devise an individualized program for Elevation Training, and Lymphedema Therapy New precaution - to improve, our physical therapists will perform initial evaluation of pt's status upon admission and devise an individualized program for Patient precaution education Poor balance - to improve, our physical therapists will perform initial evaluation of pt's status up on admission and devise an individualized program for Balance Training Weakness - to improve, our physical therapists will perform initial evaluation of pt's status upon a dmission and devise an individualized program for Aquatic Therapy, Neuromuscular Reeducation, and Str engthening Achieving independence - to improve, our physical therapists will perform initial evaluation of pt's status upon admission and devise an individualized program for Community Reintegration Activities - Occupational Therapy ADL deficits - to improve, our occupation therapists will perform initial evaluation of pt's status upon admission and devise an individualized program for Bathing, Bed mobility, Community Reintegratio n, Cooking, Dressing, Eating, Fine Motor Skills, Grooming, Homemaking, Kitchen Mobility, Laundry, Pat ient Education, Safety Awareness, Splinting - Positioning, Transfers(Toilet, Tub, Shower), and Wheel Chair Management Cognitive deficits - to improve, our occupation therapists will perform initial evaluation of pt's s tatus upon admission and devise an individualized program for Cognition - orientation Need for childcare center director - to improve, our occupation therapists will perform initial evaluation of pt's status upon admission and devise an individualized program for Caregiver Training Weakness - to improve, our occupation therapists will perform initial evaluation of pt's status upon admission and devise an individualized program for Aquatic Therapy, Balance, Endurance, UE ROM, and UE strengthening - Other See attached MAR (Medication Administration Record) - Diet Type Continue Regular - Diet - Liquid Texture Continue Regular - Tube Feed Continue N/A - Bladder care per protocol - N/A Thoracic Precautions - Skin care per protocol - Diet - Solid Texture Continue Regular - Shower allowing shower FUNCTIONAL STATUS: UPDATED AT WEEKLY TEAM CONFERENCE - Bladder Same Bladder control device used: diaper - Bowel Same Bowel control device used: diaper - Walking Same score based on distance walked: 1(<=50ft) FUNCTIONAL STATUS: - Self-Care A. Eating Ind B. Grooming sup C. Bathing modA D. Dressing - Upper Eugenio E. Dressing - Lower modA F. Toileting modA - Sphincter Control G. Bladder control sup H. Bowel control sup - Transfers Control I. Bed/Chair/Wheelchair Eugenio J. Toilet Eugenio K. Tub/Shower modA - Locomotion L. Walk/Wheelchair (B) modA M. Stairs ADNO - Communication N. Comprehension (B) Irving O. Expression (B) Irving - Social Cognition P. Social Interaction Ind Q. Problem Solving sup R. Memory sup - Endurance Poor - Balance Fair - Safety Awareness Fair QI SCORES: - Self-Care A. Eating 04-Supervision or touching assistance B. Oral hygiene 04-Supervision or touching assistance C. Toileting hygiene 03-Partial/moderate assistance E. Shower/bathe self 03-Partial/moderate assistance F. Upper body dressing 03-Partial/moderate assistance G. Lower body dressing 03-Partial/moderate assistance H. Putting on/taking off footwear 02-Substantial/maximal assistance - Mobility A. Roll left and right 03-Partial/moderate assistance B. Sit to lying 03-Partial/moderate assistance C. Lying to sitting on side of bed 03-Partial/moderate assistance D. Sit to stand 03-Partial/moderate assistance E. Chair/[id number]-ma-[id number] transfer 03-Partial/moderate assistance F. Toilet transfer 03-Partial/moderate assistance G. Car transfer 10-Not attempted due to environmental limitations I. Walk 10 feet 88-Not attempted due to medical condition or safety concerns J. Walk 50 feet with two turns 88-Not attempted due to medical condition or safety concerns K. Walk 150 feet 88-Not attempted due to medical condition or safety concerns L. Walking 10 feet on uneven surfaces 88-Not attempted due to medical condition or safety concerns M. 1 step (curb) 88-Not attempted due to medical condition or safety concerns N. 4 steps 88-Not attempted due to medical condition or safety concerns O. 12 steps 88-Not attempted due to medical condition or safety concerns P. Picking up object 88-Not attempted due to medical condition or safety concerns - Bladder and Bowel Bladder continence 4-Always incontinent Bowel continence 3-Always incontinent - Endurance Poor - Balance Poor - Safety Awareness Poor CURRENT FUNC. DEFICITS: Self-Care, Mobility, Endurance, Balance, and Safety Awareness SIGNATURE PANEL: (CDT)
[2021-04-23] MEDS: MELATONIN 3 MG TABLET PO PRN (19:52)
[2021-04-23] MEDS: DOCUSATE NA/SENNA CONC 1 TAB PO SCH (19:52)
[2021-04-23] MEDS: GABAPENTIN 300 MG CAP PO SCH (19:52)
[2021-04-23] MEDS: ATORVASTATIN 20 MG TAB PO SCH (19:52)
[2021-04-23] MEDS ORDERED: SIMETHICONE 80 MG TAB PO PRN (20:06)
[2021-04-24] MEDS: carvediloL 12.5 MG TAB PO SCH ×2 (05:18→16:46)
[2021-04-24] MEDS: HEPARIN 5000 UNIT/ML 1 ML VIAL SQ SCH ×2 (06:07→20:30)
[2021-04-24] MEDS: LIDOCAINE 4% PATCH TOP SCH (07:31)
[2021-04-24] MEDS: lisinopriL 10 MG TAB PO SCH (07:32)
[2021-04-24] MEDS: ASPIRIN EC 81 MG TAB PO SCH (07:32)
[2021-04-24] MEDS: FUROSEMIDE 20 MG TABLET PO SCH (07:32)
[2021-04-24] MEDS: MAGNESIUM OXIDE 400 MG TAB PO SCH ×2 (07:33→20:31)
[2021-04-24] MEDS: DULOXETINE 20 MG CAP PO SCH (07:33)
[2021-04-24] MEDS: GABAPENTIN 300 MG CAP PO SCH ×2 (07:33→20:30)
[2021-04-24] MEDS: TRAMADOL HCL 50 MG TAB PO PRN ×2 (07:34→12:45)
[2021-04-24] MEDS: POLYETHYL GLY 3350 17 GM/DOSE PO PRN (07:41)
[2021-04-24] MEDS: HYDRALAZINE HCL 10 MG TABLET PO SCH ×3 (08:00→20:30)
[2021-04-24] MEDS: ACETAMINOPHEN 500 MG TAB PO PRN (10:46)
[2021-04-24] MEDS: AMLODIPINE 5 MG TAB PO SCH (11:41)
--- NOTE | 2021-04-24 13:05 | P.CNS ---
Date of Consult: 04/24/21 Reason for Consult: Painful toenails Chief Complaint: Painful elongated nails x 10 Allergies sulfamethoxazole [From Bactrim] Allergy (Verified 12/06/19 20:11) Itching/Hives/Rash tetanus toxoid, adsorbed Allergy (Verified 12/06/19 20:11) unknown trimethoprim [From Bactrim] Allergy (Verified 12/06/19 20:11) Itching/Hives/Rash Home Medications: Aspirin Chewable [Aspirin Chewable*] 81 mg PO DAILY 11/11/19 Lisinopril [Zestril] 10 mg PO DAILY 03/08/20 Melatonin 3 mg PO BEDTIME 03/08/20 Sennosides/Docusate Sodium [Senna-Docusate Sodium Tablet] 1 tab PO BEDTIME 03/08/20 Acetaminophen 1,000 mg PO Q8HR 04/19/21 Amlodipine [Norvasc] 10 mg PO DAILY 04/19/21 Atorvastatin Calcium 20 mg PO BEDTIME 04/19/21 Carvedilol [Coreg] 12.5 mg PO BID 6AM 6PM 04/19/21 Furosemide [Lasix] 20 mg PO DAILY 04/19/21 Gabapentin [Neurontin] 100 mg PO BEDTIME 04/19/21 Hydralazine [Apresoline] 10 mg PO TID 04/19/21 Oxycodone HCl 5 mg PO Q6HR 04/19/21 - Past Medical/Surgical History Diabetic: No -: Cardiomegaly -: Hypertension -: Pacemaker -: HLD -: CHF -: Pacemaker -: Knee replacement -: back sx -: elbow sx left -: gtube - Family History Father Medical History: Other (see notes) Notes: Aneurysm Mother Medical History: Diabetes parents Notes: none as per pt - Social History Smoking Status: Unknown if ever smoked Alcohol use: Yes CD- Drugs: No Caffeine use: Yes Place of Residence: Home Review of Systems 10-point ROS is otherwise unremarkable Physical Examination Temp Pulse Resp BP Pulse Ox 98 F 72 16 124/56 L 96 04/24/21 06:51 04/24/21 11:41 04/24/21 12:45 04/24/21 11:41 04/24/21 12:45 General: Alert, In no apparent distress, Oriented x3 Cardiovascular: No edema, Abnormal pulses (0/4 DP bilateral 1/4 pt bilatera) Capillary refill: <2 Seconds Musculoskeletal: No clubbing, No swelling, No contractures, No erythema, No tenderness, No warmth Integumentary: No breakdown, No significant lesion, No tenderness/swelling, No erythema, No warmth, Other (Skin is cool to touch. Thickened elongated nails with subungual debris x 10. 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
--- NOTE | 2021-04-24 17:24 | R.PN ---
PROGRESS NOTES ENCOUNTER DATE AND TIME: 04/24/2021 17:19 (CDT) NAME RENE CHAMBERLAIN DATE OF : 1945 DATE OF ADMISSION: 04/18/2021 16:50 (CDT) thoracic vertebral fractureCHIEF COMPLAINT: Thoracic vertebral fracture and debility. SUBJECTIVE: Pt denied any depression. Pt denied any Shortness of Breath. Ambulated 43' with contact guard assistance, verbal ques and rolling walker. CBC with differential is essentially normal, Na 135, prealbumin 17.0, glucose 108 to 151. VITAL SIGNS Temperature: 98.0 F SBP/DBP: 149/71 Pulse: 64 Resp: 16 MEDICATION ALLERGIES: bactrim tetanus toxoid ENVIRONMENTAL ALLERGIES: None Known - Substance Allergies None Known - Other Allergies None Known NURSING: - Shower allowing shower - Bladder care per protocol - Skin care per protocol PRECAUTIONS: - N/A Thoracic Precautions ACTIVITIES OOB only with supervision THERAPIES: - Orthotics/Prosthetics Orthotic Evaluation. Splinting/Casting. - Dietary and Nutrition Adequate Nutrition. Nutritional Education. Nutritional Supplements. PHYSICAL EXAM - Gen Alert and awake Lying in bed No apparent distress Oriented to: person, time, and place - Skin No breakdown Normacephalic - Eyes No abnormalities - ENMT No abnormalities - Neck No abnormalities - CVS RRR - Chest Turtle shell is in place. - Resp Clear to auscultation - Abd + bowel sounds - GI Soft Deferred - No abnormalities - Ext No significant edema. - MSK 4+/5 weakness in both lower extremities. - Neuro No focal deficits - Psych No abnormalities ASSESSMENT: Pt. is a 75 yo Right-handed white male.On 04/07/2021 he was admitted to [facility] and [facility] ent emergency surgery for thoracic vertebral fracture (Fusion of T6-T12 ) by Dr Mir.Pre-morbidly , Pt. was independent/mod-I in Transfers Control and Locomotion; and he had good Balance, Safety Awar eness, Self-Care, Social Cognition, Sphincter Control, and Communication.Currently, he has deficits o f Transfers Control, Balance, Locomotion, Safety Awareness, Self-Care, Social Cognition, Sphincter Co ntrol, and Communication.Pt. is now referred to [facility] for acute in-patien t rehabilitation in order to maximize patient's functional independence in activities of daily living , strength, ROM, and mobility.- Rehab Goal Patient has realistic goal of being discharged at assistance level 6-Irving to reside at Home with Fri ends. MDM/PLAN: - Physical Therapy Gait dysfunction - to improve, our physical therapists will perform initial evaluation of pt's statu s upon admission and devise an individualized program for Gait Training, and Wheel Chair mobility Inability to transfer - to improve, our physical therapists will perform initial evaluation of pt's status upon admission and devise an individualized program for Bed mobility Need for home safety evaluation - to improve, our physical therapists will perform initial evaluatio n of pt's status upon admission and devise an individualized program for Home Evaluation Need in caregiver upon discharge - to improve, our physical therapists will perform initial evaluati on of pt's status upon admission and devise an individualized program for Caregiver Training Edema - to improve, our physical therapists will perform initial evaluation of pt's status upon admi ssion and devise an individualized program for Elevation Training, and Lymphedema Therapy New precaution - to improve, our physical therapists will perform initial evaluation of pt's status upon admission and devise an individualized program for Patient precaution education Poor balance - to improve, our physical therapists will perform initial evaluation of pt's status up on admission and devise an individualized program for Balance Training Weakness - to improve, our physical therapists will perform initial evaluation of pt's status upon a dmission and devise an individualized program for Aquatic Therapy, Neuromuscular Reeducation, and Str engthening Achieving independence - to improve, our physical therapists will perform initial evaluation of pt's status upon admission and devise an individualized program for Community Reintegration Activities - Occupational Therapy ADL deficits - to improve, our occupation therapists will perform initial evaluation of pt's status upon admission and devise an individualized program for Bathing, Bed mobility, Community Reintegratio n, Cooking, Dressing, Eating, Fine Motor Skills, Grooming, Homemaking, Kitchen Mobility, Laundry, Pat ient Education, Safety Awareness, Splinting - Positioning, Transfers(Toilet, Tub, Shower), and Wheel Chair Management Cognitive deficits - to improve, our occupation therapists will perform initial evaluation of pt's s tatus upon admission and devise an individualized program for Cognition - orientation Need for career technology teacher - to improve, our occupation therapists will perform initial evaluation of pt's status upon admission and devise an individualized program for Caregiver Training Weakness - to improve, our occupation therapists will perform initial evaluation of pt's status upon admission and devise an individualized program for Aquatic Therapy, Balance, Endurance, UE ROM, and UE strengthening - Other See attached MAR (Medication Administration Record) - Diet Type Continue Regular - Diet - Liquid Texture Continue Regular - Tube Feed Continue N/A - Bladder care per protocol - N/A Thoracic Precautions - Skin care per protocol - Diet - Solid Texture Continue Regular - Shower allowing shower FUNCTIONAL STATUS: UPDATED AT WEEKLY TEAM CONFERENCE - Bladder Same Bladder control device used: diaper - Bowel Same Bowel control device used: diaper - Walking Same score based on distance walked: 1(<=50ft) FUNCTIONAL STATUS: - Self-Care A. Eating Ind B. Grooming sup C. Bathing modA D. Dressing - Upper Eugenio E. Dressing - Lower modA F. Toileting modA - Sphincter Control G. Bladder control sup H. Bowel control sup - Transfers Control I. Bed/Chair/Wheelchair Eugenio J. Toilet Eugenio K. Tub/Shower modA - Locomotion L. Walk/Wheelchair (B) modA M. Stairs ADNO - Communication N. Comprehension (B) Irving O. Expression (B) Irving - Social Cognition P. Social Interaction Ind Q. Problem Solving sup R. Memory sup - Endurance Poor - Balance Fair - Safety Awareness Fair QI SCORES: - Self-Care A. Eating 04-Supervision or touching assistance B. Oral hygiene 04-Supervision or touching assistance C. Toileting hygiene 03-Partial/moderate assistance E. Shower/bathe self 03-Partial/moderate assistance F. Upper body dressing 03-Partial/moderate assistance G. Lower body dressing 03-Partial/moderate assistance H. Putting on/taking off footwear 02-Substantial/maximal assistance - Mobility A. Roll left and right 03-Partial/moderate assistance B. Sit to lying 03-Partial/moderate assistance C. Lying to sitting on side of bed 03-Partial/moderate assistance D. Sit to stand 03-Partial/moderate assistance E. Chair/[id number] transfer 03-Partial/moderate assistance F. Toilet transfer 03-Partial/moderate assistance G. Car transfer 10-Not attempted due to environmental limitations I. Walk 10 feet 88-Not attempted due to medical condition or safety concerns J. Walk 50 feet with two turns 88-Not attempted due to medical condition or safety concerns K. Walk 150 feet 88-Not attempted due to medical condition or safety concerns L. Walking 10 feet on uneven surfaces 88-Not attempted due to medical condition or safety concerns M. 1 step (curb) 88-Not attempted due to medical condition or safety concerns N. 4 steps 88-Not attempted due to medical condition or safety concerns O. 12 steps 88-Not attempted due to medical condition or safety concerns P. Picking up object 88-Not attempted due to medical condition or safety concerns - Bladder and Bowel Bladder continence 4-Always incontinent Bowel continence 3-Always incontinent - Endurance Poor - Balance Poor - Safety Awareness Poor CURRENT FUNC. DEFICITS: Self-Care, Mobility, Endurance, Balance, and Safety Awareness SIGNATURE PANEL: (CDT)
[2021-04-24] MEDS: DOCUSATE NA/SENNA CONC 1 TAB PO SCH (20:30)
[2021-04-24] MEDS: ATORVASTATIN 20 MG TAB PO SCH (20:31)
[2021-04-25] MEDS: carvediloL 12.5 MG TAB PO SCH ×2 (05:06→17:08)
[2021-04-25] MEDS: TRAMADOL HCL 50 MG TAB PO PRN ×3 (05:11→19:09)
[2021-04-25] MEDS: HEPARIN 5000 UNIT/ML 1 ML VIAL SQ SCH ×2 (06:26→18:30)
[2021-04-25 06:42] LABS: Absolute Lymphocytes (CBC) 1.8 K/uL (0.7-4.9); Basophils % 0.9 % (0-1.3); Hematocrit 31.2 % (39.6-49.0); Lymphocytes % 24.1 % (15.3-44.8); MPV 7.9 fL (7.6-11.3); RBC Red Blood Cell Count 3.55 M/uL (4.33-5.43)
[2021-04-25 06:48] LABS: BUN Blood Urea Nitrogen 23 mg/dL (7-18); Bicarbonate 29 mmol/L (21-32); Glucose Level 87 mg/dL (74-106); Potassium 4.1 mmol/L (3.5-5.1); Sodium Level 138 mmol/L (136-145)
[2021-04-25] MEDS: lisinopriL 10 MG TAB PO SCH (07:58)
[2021-04-25] MEDS: FUROSEMIDE 20 MG TABLET PO SCH (07:58)
[2021-04-25] MEDS: ASPIRIN EC 81 MG TAB PO SCH (07:59)
[2021-04-25] MEDS: HYDRALAZINE HCL 10 MG TABLET PO SCH ×2 (07:59→19:08)
[2021-04-25] MEDS: MAGNESIUM OXIDE 400 MG TAB PO SCH ×2 (07:59→19:08)
[2021-04-25] MEDS: GABAPENTIN 300 MG CAP PO SCH ×2 (07:59→19:08)
[2021-04-25] MEDS: DULOXETINE 20 MG CAP PO SCH (08:00)
[2021-04-25] MEDS: LIDOCAINE 4% PATCH TOP SCH (09:16)
[2021-04-25] MEDS: AMLODIPINE 5 MG TAB PO SCH (12:00)
[2021-04-25] MEDS ORDERED: MAGNESIUM CITRATE 300 ML BOT PO SCH (15:00)
--- NOTE | 2021-04-25 16:45 | R.PN ---
PROGRESS NOTES ENCOUNTER DATE AND TIME: 04/25/2021 16:41 (CDT) NAME RENE CHAMBERLAIN DATE OF : 1945 DATE OF ADMISSION: 04/18/2021 16:50 (CDT) thoracic vertebral fractureCHIEF COMPLAINT: Thoracic vertebral fracture and debility. SUBJECTIVE: Pt denied any depression. Pt denied any Shortness of Breath. Ambulated 21' with contact guard assistance, verbal ques and rolling walker. CBC with differential shows mildly low Hgb of 10.3, Na 138, prealbumin 17.0, glucose 108 to 151. VITAL SIGNS Temperature: 97.2 F SBP/DBP: 148/75 Pulse: 61 Resp: 16 MEDICATION ALLERGIES: bactrim tetanus toxoid ENVIRONMENTAL ALLERGIES: None Known - Substance Allergies None Known - Other Allergies None Known NURSING: - Shower allowing shower - Bladder care per protocol - Skin care per protocol PRECAUTIONS: - N/A Thoracic Precautions ACTIVITIES OOB only with supervision THERAPIES: - Orthotics/Prosthetics Orthotic Evaluation. Splinting/Casting. - Dietary and Nutrition Adequate Nutrition. Nutritional Education. Nutritional Supplements. PHYSICAL EXAM - Gen Alert and awake Lying in bed No apparent distress Oriented to: person, time, and place - Skin No breakdown Normacephalic - Eyes No abnormalities - ENMT No abnormalities - Neck No abnormalities - CVS RRR - Chest Turtle shell is in place. - Resp Clear to auscultation - Abd + bowel sounds - GI Soft Deferred - No abnormalities - Ext No significant edema. - MSK 4+/5 weakness in both lower extremities. - Neuro No focal deficits - Psych No abnormalities ASSESSMENT: Pt. is a 75 yo Right-handed white male.On 04/07/[address] [facility] and [facility] ent emergency surgery for thoracic vertebral fracture (Fusion of T6-T12 ) by Dr Mir.Pre-morbidly , Pt. was independent/mod-I in Transfers Control and Locomotion; and he had good Balance, Safety Awar eness, Self-Care, Social Cognition, Sphincter Control, and Communication.Currently, he has deficits o f Transfers Control, Balance, Locomotion, Safety Awareness, Self-Care, Social Cognition, Sphincter Co ntrol, and Communication.Pt. is now referred to [facility] for acute in-patien t rehabilitation in order to maximize patient's functional independence in activities of daily living , strength, ROM, and mobility.- Rehab Goal Patient has realistic goal of being discharged at assistance level 6-Irving to reside at Home with Fri ends. MDM/PLAN: - Physical Therapy Gait dysfunction - to improve, our physical therapists will perform initial evaluation of pt's statu s upon admission and devise an individualized program for Gait Training, and Wheel Chair mobility Inability to transfer - to improve, our physical therapists will perform initial evaluation of pt's status upon admission and devise an individualized program for Bed mobility Need for home safety evaluation - to improve, our physical therapists will perform initial evaluatio n of pt's status upon admission and devise an individualized program for Home Evaluation Need in caregiver upon discharge - to improve, our physical therapists will perform initial evaluati on of pt's status upon admission and devise an individualized program for Caregiver Training Edema - to improve, our physical therapists will perform initial evaluation of pt's status upon admi ssion and devise an individualized program for Elevation Training, and Lymphedema Therapy New precaution - to improve, our physical therapists will perform initial evaluation of pt's status upon admission and devise an individualized program for Patient precaution education Poor balance - to improve, our physical therapists will perform initial evaluation of pt's status up on admission and devise an individualized program for Balance Training Weakness - to improve, our physical therapists will perform initial evaluation of pt's status upon a dmission and devise an individualized program for Aquatic Therapy, Neuromuscular Reeducation, and Str engthening Achieving independence - to improve, our physical therapists will perform initial evaluation of pt's status upon admission and devise an individualized program for Community Reintegration Activities - Occupational Therapy ADL deficits - to improve, our occupation therapists will perform initial evaluation of pt's status upon admission and devise an individualized program for Bathing, Bed mobility, Community Reintegratio n, Cooking, Dressing, Eating, Fine Motor Skills, Grooming, Homemaking, Kitchen Mobility, Laundry, Pat ient Education, Safety Awareness, Splinting - Positioning, Transfers(Toilet, Tub, Shower), and Wheel Chair Management Cognitive deficits - to improve, our occupation therapists will perform initial evaluation of pt's s tatus upon admission and devise an individualized program for Cognition - orientation Need for primary care provider - to improve, our occupation therapists will perform initial evaluation of pt's status upon admission and devise an individualized program for Caregiver Training Weakness - to improve, our occupation therapists will perform initial evaluation of pt's status upon admission and devise an individualized program for Aquatic Therapy, Balance, Endurance, UE ROM, and UE strengthening - Other See attached MAR (Medication Administration Record) - Diet Type Continue Regular - Diet - Liquid Texture Continue Regular - Tube Feed Continue N/A - Bladder care per protocol - N/A Thoracic Precautions - Skin care per protocol - Diet - Solid Texture Continue Regular - Shower allowing shower FUNCTIONAL STATUS: UPDATED AT WEEKLY TEAM CONFERENCE - Bladder Same Bladder control device used: diaper - Bowel Same Bowel control device used: diaper - Walking Same score based on distance walked: 1(<=50ft) FUNCTIONAL STATUS: - Self-Care A. Eating Ind B. Grooming sup C. Bathing modA D. Dressing - Upper Eugenio E. Dressing - Lower modA F. Toileting modA - Sphincter Control G. Bladder control sup H. Bowel control sup - Transfers Control I. Bed/Chair/Wheelchair Eugenio J. Toilet Eugenio K. Tub/Shower modA - Locomotion L. Walk/Wheelchair (B) modA M. Stairs ADNO - Communication N. Comprehension (B) Irving O. Expression (B) Irving - Social Cognition P. Social Interaction Ind Q. Problem Solving sup R. Memory sup - Endurance Poor - Balance Fair - Safety Awareness Fair QI SCORES: - Self-Care A. Eating 04-Supervision or touching assistance B. Oral hygiene 04-Supervision or touching assistance C. Toileting hygiene 03-Partial/moderate assistance E. Shower/bathe self 03-Partial/moderate assistance F. Upper body dressing 03-Partial/moderate assistance G. Lower body dressing 03-Partial/moderate assistance H. Putting on/taking off footwear 02-Substantial/maximal assistance - Mobility A. Roll left and right 03-Partial/moderate assistance B. Sit to lying 03-Partial/moderate assistance C. Lying to sitting on side of bed 03-Partial/moderate assistance D. Sit to stand 03-Partial/moderate assistance E. Chair/kug-de-[id number] transfer 03-Partial/moderate assistance F. Toilet transfer 03-Partial/moderate assistance G. Car transfer 10-Not attempted due to environmental limitations I. Walk 10 feet 88-Not attempted due to medical condition or safety concerns J. Walk 50 feet with two turns 88-Not attempted due to medical condition or safety concerns K. Walk 150 feet 88-Not attempted due to medical condition or safety concerns L. Walking 10 feet on uneven surfaces 88-Not attempted due to medical condition or safety concerns M. 1 step (curb) 88-Not attempted due to medical condition or safety concerns N. 4 steps 88-Not attempted due to medical condition or safety concerns O. 12 steps 88-Not attempted due to medical condition or safety concerns P. Picking up object 88-Not attempted due to medical condition or safety concerns - Bladder and Bowel Bladder continence 4-Always incontinent Bowel continence 3-Always incontinent - Endurance Poor - Balance Poor - Safety Awareness Poor CURRENT FUNC. DEFICITS: Self-Care, Mobility, Endurance, Balance, and Safety Awareness SIGNATURE PANEL: (CDT)
[2021-04-25] MEDS: ATORVASTATIN 20 MG TAB PO SCH (19:08)
[2021-04-25] MEDS: DOCUSATE NA/SENNA CONC 1 TAB PO SCH (19:08)
[2021-04-25] MEDS: MELATONIN 3 MG TABLET PO PRN (19:08)
[2021-04-26] MEDS: carvediloL 12.5 MG TAB PO SCH ×2 (05:14→16:57)
[2021-04-26] MEDS: HEPARIN 5000 UNIT/ML 1 ML VIAL SQ SCH ×2 (06:16→18:12)
[2021-04-26] MEDS: LIDOCAINE 4% PATCH TOP SCH (06:40)
[2021-04-26 06:50] LABS: Absolute Lymphocytes (CBC) 1.8 K/uL (0.7-4.9); Basophils % 0.7 % (0-1.3); Lymphocytes % 23.5 % (15.3-44.8); MPV 7.3 fL (7.6-11.3); RBC Red Blood Cell Count 3.52 M/uL (4.33-5.43)
[2021-04-26 07:00] LABS: Albumin 2.5 g/dL (3.4-5.0); BUN Blood Urea Nitrogen 24 mg/dL (7-18); Bicarbonate 31 mmol/L (21-32); Glucose Level 83 mg/dL (74-106); Magnesium 2.4 mg/dL (1.8-2.4); Potassium 4.3 mmol/L (3.5-5.1); Prealbumin 16.7 mg/dL (20-40); Sodium Level 139 mmol/L (136-145)
[2021-04-26] MEDS: TRAMADOL HCL 50 MG TAB PO PRN ×2 (08:10→19:10)
[2021-04-26] MEDS: DULOXETINE 20 MG CAP PO SCH (08:11)
[2021-04-26] MEDS: GABAPENTIN 300 MG CAP PO SCH ×2 (08:11→19:10)
[2021-04-26] MEDS: MAGNESIUM OXIDE 400 MG TAB PO SCH ×2 (08:11→19:11)
[2021-04-26] MEDS: ASPIRIN EC 81 MG TAB PO SCH (08:11)
[2021-04-26] MEDS: FUROSEMIDE 20 MG TABLET PO SCH (08:11)
[2021-04-26] MEDS: lisinopriL 10 MG TAB PO SCH (08:12)
[2021-04-26] MEDS: HYDRALAZINE HCL 10 MG TABLET PO SCH ×2 (08:12→19:36)
[2021-04-26] MEDS: AMLODIPINE 5 MG TAB PO SCH (11:43)
[2021-04-26] MEDS: ACETAMINOPHEN 500 MG TAB PO PRN (11:46)
[2021-04-26] MEDS: ATORVASTATIN 20 MG TAB PO SCH (19:10)
[2021-04-26] MEDS: DOCUSATE NA/SENNA CONC 1 TAB PO SCH (19:10)
[2021-04-26] MEDS: MELATONIN 3 MG TABLET PO PRN (19:11)
--- NOTE | 2021-04-26 19:42 | R.PN ---
PROGRESS NOTES ENCOUNTER DATE AND TIME: 04/26/2021 19:37 (CDT) NAME RENE CHAMBERLAIN DATE OF : 1945 DATE OF ADMISSION: 04/18/2021 16:50 (CDT) thoracic vertebral fractureCHIEF COMPLAINT: Thoracic vertebral fracture and debility. SUBJECTIVE: Pt denied any depression. Pt denied any Shortness of Breath. Ambulated 27' with minimum assistance, verbal ques and rolling walker. CBC with differential shows mildly low Hgb of 10.3, Na 138, prealbumin 16.7, glucose 83 to 87. VITAL SIGNS Temperature: 97.2 F SBP/DBP: 120/68 Pulse: 60 Resp: 16 MEDICATION ALLERGIES: bactrim tetanus toxoid ENVIRONMENTAL ALLERGIES: None Known - Substance Allergies None Known - Other Allergies None Known NURSING: - Shower allowing shower - Bladder care per protocol - Skin care per protocol PRECAUTIONS: - N/A Thoracic Precautions ACTIVITIES OOB only with supervision THERAPIES: - Orthotics/Prosthetics Orthotic Evaluation. Splinting/Casting. - Dietary and Nutrition Adequate Nutrition. Nutritional Education. Nutritional Supplements. PHYSICAL EXAM - Gen Alert and awake Lying in bed No apparent distress Oriented to: person, time, and place - Skin No breakdown Normacephalic - Eyes No abnormalities - ENMT No abnormalities - Neck No abnormalities - CVS RRR - Chest Turtle shell is in place. - Resp Clear to auscultation - Abd + bowel sounds - GI Soft Deferred - No abnormalities - Ext No significant edema. - MSK 4+/5 weakness in both lower extremities. - Neuro No focal deficits - Psych No abnormalities ASSESSMENT: Pt. is a 75 yo Right-handed white male.On 04/07/2021 he was admitted to [facility] and [facility] ent emergency surgery for thoracic vertebral fracture (Fusion of T6-T12 ) by Dr Mir.Pre-morbidly , Pt. was independent/mod-I in Transfers Control and Locomotion; and he had good Balance, Safety Awar eness, Self-Care, Social Cognition, Sphincter Control, and Communication.Currently, he has deficits o f Transfers Control, Balance, Locomotion, Safety Awareness, Self-Care, Social Cognition, Sphincter Co ntrol, and Communication.Pt. is now referred to [facility] for acute in-patien t rehabilitation in order to maximize patient's functional independence in activities of daily living , strength, ROM, and mobility.- Rehab Goal Patient has realistic goal of being discharged at assistance level 6-Irving to reside at Home with Fri ends. MDM/PLAN: - Physical Therapy Gait dysfunction - to improve, our physical therapists will perform initial evaluation of pt's statu s upon admission and devise an individualized program for Gait Training, and Wheel Chair mobility Inability to transfer - to improve, our physical therapists will perform initial evaluation of pt's status upon admission and devise an individualized program for Bed mobility Need for home safety evaluation - to improve, our physical therapists will perform initial evaluatio n of pt's status upon admission and devise an individualized program for Home Evaluation Need in caregiver upon discharge - to improve, our physical therapists will perform initial evaluati on of pt's status upon admission and devise an individualized program for Caregiver Training Edema - to improve, our physical therapists will perform initial evaluation of pt's status upon admi ssion and devise an individualized program for Elevation Training, and Lymphedema Therapy New precaution - to improve, our physical therapists will perform initial evaluation of pt's status upon admission and devise an individualized program for Patient precaution education Poor balance - to improve, our physical therapists will perform initial evaluation of pt's status up on admission and devise an individualized program for Balance Training Weakness - to improve, our physical therapists will perform initial evaluation of pt's status upon a dmission and devise an individualized program for Aquatic Therapy, Neuromuscular Reeducation, and Str engthening Achieving independence - to improve, our physical therapists will perform initial evaluation of pt's status upon admission and devise an individualized program for Community Reintegration Activities - Occupational Therapy ADL deficits - to improve, our occupation therapists will perform initial evaluation of pt's status upon admission and devise an individualized program for Bathing, Bed mobility, Community Reintegratio n, Cooking, Dressing, Eating, Fine Motor Skills, Grooming, Homemaking, Kitchen Mobility, Laundry, Pat ient Education, Safety Awareness, Splinting - Positioning, Transfers(Toilet, Tub, Shower), and Wheel Chair Management Cognitive deficits - to improve, our occupation therapists will perform initial evaluation of pt's s tatus upon admission and devise an individualized program for Cognition - orientation Need for foster care social worker - to improve, our occupation therapists will perform initial evaluation of pt's status upon admission and devise an individualized program for Caregiver Training Weakness - to improve, our occupation therapists will perform initial evaluation of pt's status upon admission and devise an individualized program for Aquatic Therapy, Balance, Endurance, UE ROM, and UE strengthening - Other See attached MAR (Medication Administration Record) - Diet Type Continue Regular - Diet - Liquid Texture Continue Regular - Tube Feed Continue N/A - Bladder care per protocol - N/A Thoracic Precautions - Skin care per protocol - Diet - Solid Texture Continue Regular - Shower allowing shower FUNCTIONAL STATUS: UPDATED AT WEEKLY TEAM CONFERENCE - Bladder Same Bladder control device used: diaper - Bowel Same Bowel control device used: diaper - Walking Same score based on distance walked: 1(<=50ft) FUNCTIONAL STATUS: - Self-Care A. Eating Ind B. Grooming sup C. Bathing modA D. Dressing - Upper Eugenio E. Dressing - Lower modA F. Toileting modA - Sphincter Control G. Bladder control sup H. Bowel control sup - Transfers Control I. Bed/Chair/Wheelchair Eugenio J. Toilet Eugenio K. Tub/Shower modA - Locomotion L. Walk/Wheelchair (B) modA M. Stairs ADNO - Communication N. Comprehension (B) Irving O. Expression (B) Irving - Social Cognition P. Social Interaction Ind Q. Problem Solving sup R. Memory sup - Endurance Poor - Balance Fair - Safety Awareness Fair QI SCORES: - Self-Care A. Eating 04-Supervision or touching assistance B. Oral hygiene 04-Supervision or touching assistance C. Toileting hygiene 03-Partial/moderate assistance E. Shower/bathe self 03-Partial/moderate assistance F. Upper body dressing 03-Partial/moderate assistance G. Lower body dressing 03-Partial/moderate assistance H. Putting on/taking off footwear 02-Substantial/maximal assistance - Mobility A. Roll left and right 03-Partial/moderate assistance B. Sit to lying 03-Partial/moderate assistance C. Lying to sitting on side of bed 03-Partial/moderate assistance D. Sit to stand 03-Partial/moderate assistance E. Chair/wuj-ti-hfeza transfer 03-Partial/moderate assistance F. Toilet transfer 03-Partial/moderate assistance G. Car transfer 10-Not attempted due to environmental limitations I. Walk 10 feet 88-Not attempted due to medical condition or safety concerns J. Walk 50 feet with two turns 88-Not attempted due to medical condition or safety concerns K. Walk 150 feet 88-Not attempted due to medical condition or safety concerns L. Walking 10 feet on uneven surfaces 88-Not attempted due to medical condition or safety concerns M. 1 step (curb) 88-Not attempted due to medical condition or safety concerns N. 4 steps 88-Not attempted due to medical condition or safety concerns O. 12 steps 88-Not attempted due to medical condition or safety concerns P. Picking up object 88-Not attempted due to medical condition or safety concerns - Bladder and Bowel Bladder continence 4-Always incontinent Bowel continence 3-Always incontinent - Endurance Poor - Balance Poor - Safety Awareness Poor CURRENT FUNC. DEFICITS: Self-Care, Mobility, Endurance, Balance, and Safety Awareness SIGNATURE PANEL: (CDT)
[2021-04-27] MEDS: carvediloL 12.5 MG TAB PO SCH ×2 (05:28→16:50)
[2021-04-27] MEDS: HEPARIN 5000 UNIT/ML 1 ML VIAL SQ SCH ×2 (06:02→20:00)
[2021-04-27] MEDS: HYDRALAZINE HCL 10 MG TABLET PO SCH ×2 (08:00→19:43)
[2021-04-27] MEDS: ASPIRIN EC 81 MG TAB PO SCH (08:22)
[2021-04-27] MEDS: LIDOCAINE 4% PATCH TOP SCH (08:22)
[2021-04-27] MEDS: lisinopriL 10 MG TAB PO SCH (08:22)
[2021-04-27] MEDS: DULOXETINE 20 MG CAP PO SCH (08:23)
[2021-04-27] MEDS: MAGNESIUM OXIDE 400 MG TAB PO SCH ×2 (08:23→19:42)
[2021-04-27] MEDS: GABAPENTIN 300 MG CAP PO SCH ×2 (08:23→19:42)
[2021-04-27] MEDS: FUROSEMIDE 20 MG TABLET PO SCH (08:23)
[2021-04-27] MEDS: TRAMADOL HCL 50 MG TAB PO PRN (08:23)
--- NOTE | 2021-04-27 09:29 | P.RH.PN ---
Estimated Length of Stay: 14 Expected Discharge Date: 05/04/21 Discharge Disposition Plan: Home Family Support: Yes [facility] Goal: Mobility, Transfers, Self Care Vital Signs: Last Vital Signs Temp 98 F 04/27/21 07:53 Pulse 67 04/27/21 08:23 Resp 18 04/27/21 08:23 BP 164/76 H 04/27/21 08:23 Pulse Ox 94 04/27/21 08:23 Laboratory: Laboratory Last Values WBC 7.60 K/uL (4.3-10.9) 04/26/21 06:24 RBC 3.52 M/uL (4.33-5.43) L 04/26/21 06:24 Hgb 10.3 g/dL (13.6-17.9) L 04/26/21 06:24 Hct 31.0 % (39.6-49.0) L 04/26/21 06:24 MCV 88.1 fL (80-100) 04/26/21 06:24 MCH 29.3 pg (27.0-35.0) 04/26/21 06:24 MCHC 33.2 g/dL (32.0-36.0) 04/26/21 06:24 RDW 15.0 % (12.1-15.2) 04/26/21 06:24 Plt Count 293 K/uL (152-406) 04/26/21 06:24 MPV 7.3 fL (7.6-11.3) L 04/26/21 06:24 Neutrophils % 66.9 % (41.7-73.7) 04/26/21 06:24 Lymphocytes % 23.5 % (15.3-44.8) 04/26/21 06:24 Monocytes % 6.6 % (3.3-12.3) 04/26/21 06:24 Eosinophils % 2.3 % (0-4.4) 04/26/21 06:24 Basophils % 0.7 % (0-1.3) 04/26/21 06:24 Absolute Neutrophils 5.1 K/uL (1.8-8.0) 04/26/21 06:24 Absolute Lymphocytes 1.8 K/uL (0.7-4.9) 04/26/21 06:24 Absolute Monocytes 0.5 K/uL (0.1-1.3) 04/26/21 06:24 Absolute Eosinophils 0.2 K/uL (0-0.5) 04/26/21 06:24 Absolute Basophils 0.1 K/uL (0-0.5) 04/26/21 06:24 Sodium 139 mmol/L (136-145) 04/26/21 06:24 Potassium 4.3 mmol/L (3.5-5.1) 04/26/21 06:24 Chloride 105 mmol/L (98-107) 04/26/21 06:24 Carbon Dioxide 31 mmol/L (21-32) 04/26/21 06:24 BUN 24 mg/dL (7-18) H 04/26/21 06:24 Creatinine 0.78 mg/dL (0.55-1.3) 04/26/21 06:24 Estimated GFR > 90 mL/min (=/>90) 04/26/21 06:24 Glucose 83 mg/dL (74-106) 04/26/21 06:24 POC Glucose 151 mg/dL (65-120) H 04/21/21 19:17 Calcium 9.6 mg/dL (8.5-10.1) 04/26/21 06:24 Magnesium 2.4 mg/dL (1.8-2.4) D 04/26/21 06:24 Albumin 2.5 g/dL (3.4-5.0) L 04/26/21 06:24 Prealbumin 16.7 mg/dL (20-40) L 04/26/21 06:24 Urine Color Yellow (Yellow) 04/19/21 05:09 Urine Appearance Clear (Clear) 04/19/21 05:09 Urine pH 7.5 (5.0-7.0) H 04/19/21 05:09 Ur Specific [place] 1.010 (1.005-1.030) 04/19/21 05:09 Glucose (UA)(Auto) Negative (Negative) 04/19/21 05:09 Urine Ketones Negative (Negative) 04/19/21 05:09 Urine Blood Negative (Negative) 04/19/21 05:09 Urine Nitrite Negative (Negative) 04/19/21 05:09 Urine Bilirubin Negative (Negative) 04/19/21 05:09 Urine Urobilinogen >=8.0 mg/dL (0.2-1.0) 04/19/21 05:09 Ur Leukocyte Esterase Negative (Negative) 04/19/21 05:09 Urine RBC None seen /HPF (NONE SEEN) 04/19/21 05:09 Urine WBC <5 /HPF (<5) 04/19/21 05:09 Ur Squamous Epith Cells <5 /HPF (NONE SEEN) 04/19/21 05:09 Urine Bacteria <20 /HPF (NONE SEEN) 04/19/21 05:09 Urine Culture Reflexed Not needed 04/19/21 05:09 Urine Total Protein Negative (Negative) 04/19/21 05:09 SARS-CoV-2 RNA (RT-PCR) Negative (NEGATIVE) 04/18/21 20:41 Weight: 210 lb Wound Present: No Closed Surgical Incision Present: Yes Negative Pressure Wound Therapy Present: No Physician Update: He has plateaued and does not want to put in more effort. He will be encouraged to work harder next week. His labs are stable. He walked less than 20' with mod to max assistance with back pain. Functional Improvement: Patient continues to appear physically capable of more, however presents w/ lack of motivation. Patient is severely limited in gait tx., due to allowing B knees to flex, and RW to travel too far forward. Rep eated VC and TC are given, however patient continues to present w/ same trend. 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 Please see the Rehabilitation Signature page for all necessary signatures.
[2021-04-27] MEDS: AMLODIPINE 2.5 MG TAB PO SCH (11:56)
[2021-04-27] MEDS: ACETAMINOPHEN 500 MG TAB PO PRN (12:31)
[2021-04-27] MEDS: DOCUSATE NA/SENNA CONC 1 TAB PO SCH (19:42)
[2021-04-27] MEDS: MELATONIN 3 MG TABLET PO PRN (19:42)
[2021-04-27] MEDS: ATORVASTATIN 20 MG TAB PO SCH (19:43)
[2021-04-28] MEDS: carvediloL 12.5 MG TAB PO SCH ×2 (05:14→16:47)
[2021-04-28 05:38] VITALS: BMI 28.6
[2021-04-28] MEDS: HEPARIN 5000 UNIT/ML 1 ML VIAL SQ SCH ×2 (06:11→17:58)
[2021-04-28] MEDS: ACETAMINOPHEN 500 MG TAB PO PRN ×2 (06:31→18:03)
[2021-04-28] MEDS: TRAMADOL HCL 50 MG TAB PO PRN ×2 (08:20→15:59)
[2021-04-28] MEDS: LIDOCAINE 4% PATCH TOP SCH (08:21)
[2021-04-28] MEDS: ASPIRIN EC 81 MG TAB PO SCH (08:22)
[2021-04-28] MEDS: FUROSEMIDE 20 MG TABLET PO SCH (08:22)
[2021-04-28] MEDS: GABAPENTIN 300 MG CAP PO SCH ×2 (08:22→18:03)
[2021-04-28] MEDS: DULOXETINE 20 MG CAP PO SCH (08:23)
[2021-04-28] MEDS: MAGNESIUM OXIDE 400 MG TAB PO SCH ×2 (08:23→18:04)
[2021-04-28] MEDS: lisinopriL 10 MG TAB PO SCH (08:23)
[2021-04-28] MEDS: HYDRALAZINE HCL 10 MG TABLET PO SCH ×2 (11:07→18:04)
[2021-04-28] MEDS: AMLODIPINE 2.5 MG TAB PO SCH (12:51)
[2021-04-28] MEDS: ATORVASTATIN 20 MG TAB PO SCH (18:03)
[2021-04-28] MEDS: DOCUSATE NA/SENNA CONC 1 TAB PO SCH (18:36)
[2021-04-29] MEDS: ACETAMINOPHEN 500 MG TAB PO PRN (03:09)
[2021-04-29] MEDS: carvediloL 12.5 MG TAB PO SCH ×2 (05:12→16:58)
[2021-04-29] MEDS: HEPARIN 5000 UNIT/ML 1 ML VIAL SQ SCH ×2 (07:00→20:00)
[2021-04-29] MEDS: LIDOCAINE 4% PATCH TOP SCH (07:53)
[2021-04-29] MEDS: ASPIRIN EC 81 MG TAB PO SCH (07:54)
[2021-04-29] MEDS: FUROSEMIDE 20 MG TABLET PO SCH (07:54)
[2021-04-29] MEDS: MAGNESIUM OXIDE 400 MG TAB PO SCH ×2 (07:54→19:27)
[2021-04-29] MEDS: GABAPENTIN 300 MG CAP PO SCH ×2 (07:54→19:26)
[2021-04-29] MEDS: DULOXETINE 20 MG CAP PO SCH (07:54)
[2021-04-29] MEDS: lisinopriL 10 MG TAB PO SCH (07:55)
[2021-04-29] MEDS: HYDRALAZINE HCL 10 MG TABLET PO SCH ×4 (08:00→19:27)
[2021-04-29] MEDS: AMLODIPINE 2.5 MG TAB PO SCH (14:06)
[2021-04-29] MEDS: ATORVASTATIN 20 MG TAB PO SCH (19:27)
[2021-04-29] MEDS: DOCUSATE NA/SENNA CONC 1 TAB PO SCH (19:27)
[2021-04-29] MEDS: MELATONIN 3 MG TABLET PO PRN (19:27)
[2021-04-29] MEDS: BENZONATATE 100 MG CAP PO PRN (19:34)
[2021-04-30] MEDS: carvediloL 12.5 MG TAB PO SCH ×2 (05:10→17:04)
[2021-04-30] MEDS: HEPARIN 5000 UNIT/ML 1 ML VIAL SQ SCH ×2 (06:07→20:30)
[2021-04-30] MEDS: TRAMADOL HCL 50 MG TAB PO PRN ×2 (08:12→14:38)
[2021-04-30] MEDS: ASPIRIN EC 81 MG TAB PO SCH (08:13)
[2021-04-30] MEDS: DULOXETINE 20 MG CAP PO SCH (08:13)
[2021-04-30] MEDS: lisinopriL 10 MG TAB PO SCH (08:14)
[2021-04-30] MEDS: GABAPENTIN 300 MG CAP PO SCH ×2 (08:14→20:36)
[2021-04-30] MEDS: HYDRALAZINE HCL 10 MG TABLET PO SCH ×2 (08:14→20:36)
[2021-04-30] MEDS: FUROSEMIDE 20 MG TABLET PO SCH (08:14)
[2021-04-30] MEDS: MAGNESIUM OXIDE 400 MG TAB PO SCH ×2 (08:14→20:00)
[2021-04-30] MEDS: BENZONATATE 100 MG CAP PO PRN ×2 (08:15→17:03)
[2021-04-30] MEDS: LIDOCAINE 4% PATCH TOP SCH (11:05)
[2021-04-30] MEDS: AMLODIPINE 2.5 MG TAB PO SCH (12:10)
[2021-04-30] MEDS: ATORVASTATIN 20 MG TAB PO SCH (20:36)
[2021-04-30] MEDS: DOCUSATE NA/SENNA CONC 1 TAB PO SCH (20:36)
[2021-04-30] MEDS: MELATONIN 3 MG TABLET PO PRN (20:37)
[2021-04-30] MEDS: ACETAMINOPHEN 500 MG TAB PO PRN (20:37)
[2021-05-01] MEDS: BENZONATATE 100 MG CAP PO PRN ×3 (00:05→19:16)
[2021-05-01] MEDS: carvediloL 12.5 MG TAB PO SCH ×2 (05:00→17:17)
[2021-05-01] MEDS: HEPARIN 5000 UNIT/ML 1 ML VIAL SQ SCH ×2 (06:00→18:00)
[2021-05-01] MEDS: LIDOCAINE 4% PATCH TOP SCH (06:27)
[2021-05-01] MEDS: TRAMADOL HCL 50 MG TAB PO PRN (06:54)
[2021-05-01] MEDS: DULOXETINE 20 MG CAP PO SCH (08:17)
[2021-05-01] MEDS: FUROSEMIDE 20 MG TABLET PO SCH (08:17)
[2021-05-01] MEDS: ASPIRIN EC 81 MG TAB PO SCH (08:17)
[2021-05-01] MEDS: HYDRALAZINE HCL 10 MG TABLET PO SCH ×2 (08:17→19:16)
[2021-05-01] MEDS: GABAPENTIN 300 MG CAP PO SCH ×2 (08:18→19:17)
[2021-05-01] MEDS: lisinopriL 10 MG TAB PO SCH (08:18)
[2021-05-01] MEDS: MAGNESIUM OXIDE 400 MG TAB PO SCH ×2 (08:18→19:16)
[2021-05-01] MEDS: AMLODIPINE 2.5 MG TAB PO SCH (12:06)
[2021-05-01] MEDS: ACETAMINOPHEN 500 MG TAB PO PRN ×2 (12:07→19:16)
--- NOTE | 2021-05-01 15:39 | FAST ---
[employer] FORM SHIFT START DATE/TIME: 05/01/2021 07:00 (CDT) SHIFT END DATE/TIME: 05/01/2021 19:00 (CDT) NAME RENE CHAMBERLAIN DATE OF : 1945 DATE OF ADMISSION: 04/18/2021 16:50 (CDT) PHONE: AGE: 75 N# [id number] GENDER: Male ENCOUNTER PHYSICIAN: Dr. Tristin Joy M.D. 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 EATING: EATING - STEP 1: Does the patient complete the activity by him/herself with no assistance (physical, verbal/nonverbal cueing, setup/clean-up)? No. EATING - STEP 2: Does the patient need only setup/clean-up assistance from one helper? Yes. 1. [id number] ADMISSION PERFORMANCE: Setup or clean-up assistance CODE: 05 ORAL HYGIENE: ORAL HYGIENE - STEP 1: Does the patient complete the activity by him/herself with no assistance (physical, verbal/nonverbal cueing, setup/clean-up)? No. ORAL HYGIENE - STEP 2: Does the patient need only setup/clean-up assistance from one helper? Yes. 1. [id number] ADMISSION PERFORMANCE: Setup or clean-up assistance CODE: 05 TOILETING HYGIENE: TOILETING HYGIENE - STEP 1: Does the patient complete the activity by him/herself with no assistance (physical, verbal/nonverbal cueing, setup/clean-up)? No. TOILETING HYGIENE - STEP 2: Does the patient need only setup/clean-up assistance from one helper? No. TOILETING HYGIENE - STEP 3: Does the patient need only verbal/nonverbal cueing or touching/steadying/contact guard assistance fro m one helper? Yes. 1. [id number] ADMISSION PERFORMANCE: Supervision or touching assistance CODE: 04 BATHING: Not assessed/no information CODE: - DRESSING - UPPER BODY: DRESSING - UPPER BODY - STEP 1: Does the patient complete the activity by him/herself with no assistance (physical, verbal/nonverbal cueing, setup/clean-up)? No. DRESSING - UPPER BODY - STEP 2: Does the patient need only setup/clean-up assistance from one helper? No. DRESSING - UPPER BODY - STEP 3: Does the patient need only verbal/nonverbal cueing or touching/steadying/contact guard assistance fro m one helper? No. DRESSING - UPPER BODY - STEP 4: Does the patient need physical assistance - for example lifting or trunk support from one helper - wi th the helper providing less than half of the effort? No. DRESSING - UPPER BODY - STEP 5: Does the patient need physical assistance - for example lifting or trunk support from one helper - wi th the helper providing more than half of the effort? Yes. 1. [id number] ADMISSION PERFORMANCE: Substantial/maximal assistance CODE: 02 DRESSING - LOWER BODY: DRESSING - LOWER BODY - STEP 1: Does the patient complete the activity by him/herself with no assistance (physical, verbal/nonverbal cueing, setup/clean-up)? No. DRESSING - LOWER BODY - STEP 2: Does the patient need only setup/clean-up assistance from one helper? No. DRESSING - LOWER BODY - STEP 3: Does the patient need only verbal/nonverbal cueing or touching/steadying/contact guard assistance fro m one helper? No. DRESSING - LOWER BODY - STEP 4: Does the patient need physical assistance - for example lifting or trunk support from one helper - wi th the helper providing less than half of the effort? No. DRESSING - LOWER BODY - STEP 5: Does the patient need physical assistance - for example lifting or trunk support from one helper - wi th the helper providing more than half of the effort? Yes. 1. [id number] ADMISSION PERFORMANCE: Substantial/maximal assistance CODE: 02 PUTTING ON/TAKING OFF FOOTWEAR: FOOTWEAR - STEP 1: Does the patient complete the activity by him/herself with no assistance (physical, verbal/nonverbal cueing, setup/clean-up)? No. FOOTWEAR - STEP 2: Does the patient need only setup/clean-up assistance from one helper? No. FOOTWEAR - STEP 3: Does the patient need only verbal/nonverbal cueing or touching/steadying/contact guard assistance fro m one helper? No. FOOTWEAR - STEP 4: Does the patient need physical assistance - for example lifting or trunk support from one helper - wi th the helper providing less than half of the effort? No. FOOTWEAR - STEP 5: Does the patient need physical assistance - for example lifting or trunk support from one helper - wi th the helper providing more than half of the effort? Yes. 1. [id number] ADMISSION PERFORMANCE: Substantial/maximal assistance CODE: 02 ROLL LEFT AND RIGHT: ROLL LEFT AND RIGHT - STEP 1: Does the patient complete the activity by him/herself with no assistance (physical, verbal/nonverbal cueing, setup/clean-up)? No. ROLL LEFT AND RIGHT - STEP 2: Does the patient need only setup/clean-up assistance from one helper? No. ROLL LEFT AND RIGHT - STEP 3: Does the patient need only verbal/nonverbal cueing or touching/steadying/contact guard assistance fro m one helper? No. ROLL LEFT AND RIGHT - STEP 4: Does the patient need physical assistance - for example lifting or trunk support from one helper - wi th the helper providing less than half of the effort? Yes. 1. [id number] ADMISSION PERFORMANCE: Partial/moderate assistance CODE: 03 SIT TO LYING: SIT TO LYING - STEP 1: Does the patient complete the activity by him/herself with no assistance (physical, verbal/nonverbal cueing, setup/clean-up)? No. SIT TO LYING - STEP 2: Does the patient need only setup/clean-up assistance from one helper? No. SIT TO LYING - STEP 3: Does the patient need only verbal/nonverbal cueing or touching/steadying/contact guard assistance fro m one helper? No. SIT TO LYING - STEP 4: Does the patient need physical assistance - for example lifting or trunk support from one helper - wi th the helper providing less than half of the effort? No. SIT TO LYING - STEP 5: Does the patient need physical assistance - for example lifting or trunk support from one helper - wi th the helper providing more than half of the effort? Yes. 1. [id number] ADMISSION PERFORMANCE: Substantial/maximal assistance CODE: 02 LYING TO SITTING: LYING TO SITTING ON SIDE OF BED - STEP 1: Does the patient complete the activity by him/herself with no assistance (physical, verbal/nonverbal cueing, setup/clean-up)? No. LYING TO SITTING ON SIDE OF BED - STEP 2: Does the patient need only setup/clean-up assistance from one helper? No. LYING TO SITTING ON SIDE OF BED - STEP 3: Does the patient need only verbal/nonverbal cueing or touching/steadying/contact guard assistance fro m one helper? No. LYING TO SITTING ON SIDE OF BED - STEP 4: Does the patient need physical assistance - for example lifting or trunk support from one helper - wi th the helper providing less than half of the effort? Yes. 1. [id number] ADMISSION PERFORMANCE: Partial/moderate assistance CODE: 03 SIT TO STAND: SIT TO STAND - STEP 1: Does the patient complete the activity by him/herself with no assistance (physical, verbal/nonverbal cueing, setup/clean-up)? No. SIT TO STAND - STEP 2: Does the patient need only setup/clean-up assistance from one helper? No. SIT TO STAND - STEP 3: Does the patient need only verbal/nonverbal cueing or touching/steadying/contact guard assistance fro m one helper? No. SIT TO STAND - STEP 4: Does the patient need physical assistance - for example lifting or trunk support from one helper - wi th the helper providing less than half of the effort? Yes. 1. [id number] ADMISSION PERFORMANCE: Partial/moderate assistance CODE: 03 TRANSFERS: BED, CHAIR: CHAIR/[id number] TRANSFER - STEP 1: Does the patient complete the activity by him/herself with no assistance (physical, verbal/nonverbal cueing, setup/clean-up)? No. CHAIR/[id number]-VPEIC TRANSFER - STEP 2: Does the patient need only setup/clean-up assistance from one helper? No. CHAIR/[id number] TRANSFER - STEP 3: Does the patient need only verbal/nonverbal cueing or touching/steadying/contact guard assistance fro m one helper? No. CHAIR/[id number] TRANSFER - STEP 4: Does the patient need physical assistance - for example lifting or trunk support from one helper - wi th the helper providing less than half of the effort? Yes. 1. [id number] ADMISSION PERFORMANCE: Partial/moderate assistance CODE: 03 TRANSFER TOILET: TOILET TRANSFER - STEP 1: Does the patient complete the activity by him/herself with no assistance (physical, verbal/nonverbal cueing, setup/clean-up)? No. TOILET TRANSFER - STEP 2: Does the patient need only setup/clean-up assistance from one helper? No. TOILET TRANSFER - STEP 3: Does the patient need only verbal/nonverbal cueing or touching/steadying/contact guard assistance fro m one helper? Yes. 1. [id number] ADMISSION PERFORMANCE: Supervision or touching assistance CODE: 04 TRANSFERS: CAR: Not assessed/no information CODE: - WALK 10 FEET: Not assessed/no information CODE: - 1 STEP (CURB): Not assessed/no information CODE: - PICKING UP OBJECT: Not assessed/no information CODE: - DOES THE PATIENT USE A WHEELCHAIR/SCOOTER? Q1. DOES THE PATIENT USE A WHEELCHAIR/SCOOTER?: Yes CODE: 1 WHEEL 50 FEET WITH TWO TURNS: Not assessed/no information CODE: - INDICATE THE TYPE OF WHEELCHAIR/SCOOTER USED: RR1. INDICATE THE TYPE OF WHEELCHAIR/SCOOTER USED.: Manual CODE: 1 WHEEL 150 FEET: Not assessed/no information CODE: - INDICATE THE TYPE OF WHEELCHAIR/SCOOTER USED: SS1. INDICATE THE TYPE OF WHEELCHAIR/SCOOTER USED.: Manual CODE: 1 BLADDER AND BOWEL: H350. BLADDER CONTINENCE (3-DAY ASSESSMENT PERIOD): Incontinent daily (at least once a day) CODE: 3 H400. BOWEL CONTINENCE (3-DAY ASSESSMENT PERIOD): Occasionally incontinent (one episode of bowel incontinence) CODE: 1 SIGNATURE PANEL: The following modified sections: 1. [id number] Admission Performance, 1. [id number] Admission Performance, 1. [id number] Admission Performance, 1. [id number] Admission Performance, 1. [id number] Admission Performance, 1. [id number] Admission Performance, 1. [id number] Admission Performance, 1. [id number] Admission Performance , 1. [id number] Admission Performance, 1. [id number] Admission Performance, 1. [id number] Admission Performanc e, 1. [id number] Admission Performance, 1. [id number] Admission Performance, Q1. Does the patient use a whe elchair/scooter?, RR1. Indicate the type of wheelchair/scooter used., Code, SS1. Indicate the type of wheelchair/scooter used., H350. Bladder Continence (3-day assessment period), H400. Bowel Continence (3-day assessment period) were [electronically] signed by Paras OteroNMadhavi on FriMay 01 2021 15 :38:49 T-0500 (Central Daylight Time)
--- NOTE | 2021-05-01 17:21 | R.PN ---
PROGRESS NOTES ENCOUNTER DATE AND TIME: 05/01/2021 17:17 (CDT) NAME RENE CHAMBERLAIN DATE OF : 1945 DATE OF ADMISSION: 04/18/2021 16:50 (CDT) thoracic vertebral fractureCHIEF COMPLAINT: Thoracic vertebral fracture and debility. SUBJECTIVE: Pt denied any depression. Pt denied any Shortness of Breath. Ambulated 183' with contact guard assistance, verbal ques and rolling walker. CBC with differential shows mildly low Hgb of 10.3, Na 138, prealbumin 16.7, glucose 83 to 87. VITAL SIGNS Temperature: 97.2 F SBP/DBP: 109/71 Pulse: 65 Resp: 16 MEDICATION ALLERGIES: bactrim tetanus toxoid ENVIRONMENTAL ALLERGIES: None Known - Substance Allergies None Known - Other Allergies None Known NURSING: - Shower allowing shower - Bladder care per protocol - Skin care per protocol PRECAUTIONS: - N/A Thoracic Precautions ACTIVITIES OOB only with supervision THERAPIES: - Orthotics/Prosthetics Orthotic Evaluation. Splinting/Casting. - Dietary and Nutrition Adequate Nutrition. Nutritional Education. Nutritional Supplements. PHYSICAL EXAM - Gen Alert and awake Lying in bed No apparent distress Oriented to: person, time, and place - Skin No breakdown Normacephalic - Eyes No abnormalities - ENMT No abnormalities - Neck No abnormalities - CVS RRR - Chest Turtle shell is in place. - Resp Clear to auscultation - Abd + bowel sounds - GI Soft Deferred - No abnormalities - Ext No significant edema. - MSK 4+/5 weakness in both lower extremities. - Neuro No focal deficits - Psych No abnormalities ASSESSMENT: Pt. is a 75 yo Right-handed white male.On 04/07/2021 he was admitted to [facility] and [facility] ent emergency surgery for thoracic vertebral fracture (Fusion of T6-T12 ) by Dr Mir.Pre-morbidly , Pt. was independent/mod-I in Transfers Control and Locomotion; and he had good Balance, Safety Awar eness, Self-Care, Social Cognition, Sphincter Control, and Communication.Currently, he has deficits o f Transfers Control, Balance, Locomotion, Safety Awareness, Self-Care, Social Cognition, Sphincter Co ntrol, and Communication.Pt. is now referred to [facility] for acute in-patien t rehabilitation in order to maximize patient's functional independence in activities of daily living , strength, ROM, and mobility.- Rehab Goal Patient has realistic goal of being discharged at assistance level 6-Irving to reside at Home with Fri ends. MDM/PLAN: - Physical Therapy Gait dysfunction - to improve, our physical therapists will perform initial evaluation of pt's statu s upon admission and devise an individualized program for Gait Training, and Wheel Chair mobility Inability to transfer - to improve, our physical therapists will perform initial evaluation of pt's status upon admission and devise an individualized program for Bed mobility Need for home safety evaluation - to improve, our physical therapists will perform initial evaluatio n of pt's status upon admission and devise an individualized program for Home Evaluation Need in caregiver upon discharge - to improve, our physical therapists will perform initial evaluati on of pt's status upon admission and devise an individualized program for Caregiver Training Edema - to improve, our physical therapists will perform initial evaluation of pt's status upon admi ssion and devise an individualized program for Elevation Training, and Lymphedema Therapy New precaution - to improve, our physical therapists will perform initial evaluation of pt's status upon admission and devise an individualized program for Patient precaution education Poor balance - to improve, our physical therapists will perform initial evaluation of pt's status up on admission and devise an individualized program for Balance Training Weakness - to improve, our physical therapists will perform initial evaluation of pt's status upon a dmission and devise an individualized program for Aquatic Therapy, Neuromuscular Reeducation, and Str engthening Achieving independence - to improve, our physical therapists will perform initial evaluation of pt's status upon admission and devise an individualized program for Community Reintegration Activities - Occupational Therapy ADL deficits - to improve, our occupation therapists will perform initial evaluation of pt's status upon admission and devise an individualized program for Bathing, Bed mobility, Community Reintegratio n, Cooking, Dressing, Eating, Fine Motor Skills, Grooming, Homemaking, Kitchen Mobility, Laundry, Pat ient Education, Safety Awareness, Splinting - Positioning, Transfers(Toilet, Tub, Shower), and Wheel Chair Management Cognitive deficits - to improve, our occupation therapists will perform initial evaluation of pt's s tatus upon admission and devise an individualized program for Cognition - orientation Need for acute care registered nurse - to improve, our occupation therapists will perform initial evaluation of pt's status upon admission and devise an individualized program for Caregiver Training Weakness - to improve, our occupation therapists will perform initial evaluation of pt's status upon admission and devise an individualized program for Aquatic Therapy, Balance, Endurance, UE ROM, and UE strengthening - Other See attached MAR (Medication Administration Record) - Diet Type Continue Regular - Diet - Liquid Texture Continue Regular - Tube Feed Continue N/A - Bladder care per protocol - N/A Thoracic Precautions - Skin care per protocol - Diet - Solid Texture Continue Regular - Shower allowing shower FUNCTIONAL STATUS: UPDATED AT WEEKLY TEAM CONFERENCE - Bladder Same Bladder control device used: diaper - Bowel Same Bowel control device used: diaper - Walking Same score based on distance walked: 1(<=50ft) FUNCTIONAL STATUS: - Self-Care A. Eating Ind B. Grooming sup C. Bathing modA D. Dressing - Upper Eugenio E. Dressing - Lower modA F. Toileting modA - Sphincter Control G. Bladder control sup H. Bowel control sup - Transfers Control I. Bed/Chair/Wheelchair Eugenio J. Toilet Eugenio K. Tub/Shower modA - Locomotion L. Walk/Wheelchair (B) modA M. Stairs ADNO - Communication N. Comprehension (B) Irving O. Expression (B) Irving - Social Cognition P. Social Interaction Ind Q. Problem Solving sup R. Memory sup - Endurance Poor - Balance Fair - Safety Awareness Fair QI SCORES: - Self-Care A. Eating 04-Supervision or touching assistance B. Oral hygiene 04-Supervision or touching assistance C. Toileting hygiene 03-Partial/moderate assistance E. Shower/bathe self 03-Partial/moderate assistance F. Upper body dressing 03-Partial/moderate assistance G. Lower body dressing 03-Partial/moderate assistance H. Putting on/taking off footwear 02-Substantial/maximal assistance - Mobility A. Roll left and right 03-Partial/moderate assistance B. Sit to lying 03-Partial/moderate assistance C. Lying to sitting on side of bed 03-Partial/moderate assistance D. Sit to stand 03-Partial/moderate assistance E. Chair/[id number] transfer 03-Partial/moderate assistance F. Toilet transfer 03-Partial/moderate assistance G. Car transfer 10-Not attempted due to environmental limitations I. Walk 10 feet 88-Not attempted due to medical condition or safety concerns J. Walk 50 feet with two turns 88-Not attempted due to medical condition or safety concerns K. Walk 150 feet 88-Not attempted due to medical condition or safety concerns L. Walking 10 feet on uneven surfaces 88-Not attempted due to medical condition or safety concerns M. 1 step (curb) 88-Not attempted due to medical condition or safety concerns N. 4 steps 88-Not attempted due to medical condition or safety concerns O. 12 steps 88-Not attempted due to medical condition or safety concerns P. Picking up object 88-Not attempted due to medical condition or safety concerns - Bladder and Bowel Bladder continence 4-Always incontinent Bowel continence 3-Always incontinent - Endurance Poor - Balance Poor - Safety Awareness Poor CURRENT FUNC. DEFICITS: Self-Care, Mobility, Endurance, Balance, and Safety Awareness SIGNATURE PANEL: (CDT)
[2021-05-01] MEDS: ATORVASTATIN 20 MG TAB PO SCH (19:17)
[2021-05-01] MEDS: MELATONIN 3 MG TABLET PO PRN (19:17)
[2021-05-01] MEDS: DOCUSATE NA/SENNA CONC 1 TAB PO SCH (19:18)
[2021-05-02] MEDS: carvediloL 12.5 MG TAB PO SCH ×2 (05:36→17:21)
[2021-05-02] MEDS: HEPARIN 5000 UNIT/ML 1 ML VIAL SQ SCH ×2 (06:05→20:00)
[2021-05-02] MEDS: TRAMADOL HCL 50 MG TAB PO PRN ×2 (06:38→13:23)
[2021-05-02] MEDS: FUROSEMIDE 20 MG TABLET PO SCH ×2 (08:00→08:10)
[2021-05-02] MEDS: LIDOCAINE 4% PATCH TOP SCH (08:07)
[2021-05-02] MEDS: GABAPENTIN 300 MG CAP PO SCH ×2 (08:08→21:33)
[2021-05-02] MEDS: MAGNESIUM OXIDE 400 MG TAB PO SCH ×2 (08:09→20:00)
[2021-05-02] MEDS: ASPIRIN EC 81 MG TAB PO SCH (08:09)
[2021-05-02] MEDS: DULOXETINE 20 MG CAP PO SCH (08:10)
[2021-05-02] MEDS: lisinopriL 10 MG TAB PO SCH (08:10)
[2021-05-02] MEDS: HYDRALAZINE HCL 10 MG TABLET PO SCH ×2 (08:14→21:32)
[2021-05-02] MEDS: AMLODIPINE 2.5 MG TAB PO SCH (13:23)
[2021-05-02] MEDS ORDERED: MAGNESIUM CITRATE 300 ML BOT PO SCH (15:00)
--- NOTE | 2021-05-02 17:39 | R.PN ---
PROGRESS NOTES ENCOUNTER DATE AND TIME: 05/02/2021 17:30 (CDT) NAME RENE CHAMBERLAIN DATE OF : 1945 DATE OF ADMISSION: 04/18/2021 16:50 (CDT) thoracic vertebral fractureCHIEF COMPLAINT: Thoracic vertebral fracture and debility. SUBJECTIVE: Pt denied any depression. Pt denied any Shortness of Breath. Ambulated 200' with contact guard assistance, verbal ques and rolling walker. CBC with differential shows mildly low Hgb of 10.3, Na 138, prealbumin 16.7, glucose 83 to 87. VITAL SIGNS Temperature: 97.2 F SBP/DBP: 132/68 Pulse: 57 Resp: 16 MEDICATION ALLERGIES: bactrim tetanus toxoid ENVIRONMENTAL ALLERGIES: None Known - Substance Allergies None Known - Other Allergies None Known NURSING: - Shower allowing shower - Bladder care per protocol - Skin care per protocol PRECAUTIONS: - N/A Thoracic Precautions ACTIVITIES OOB only with supervision THERAPIES: - Orthotics/Prosthetics Orthotic Evaluation. Splinting/Casting. - Dietary and Nutrition Adequate Nutrition. Nutritional Education. Nutritional Supplements. PHYSICAL EXAM - Gen Alert and awake Lying in bed No apparent distress Oriented to: person, time, and place - Skin No breakdown Normacephalic - Eyes No abnormalities - ENMT No abnormalities - Neck No abnormalities - CVS RRR - Chest Turtle shell is in place. - Resp Clear to auscultation - Abd + bowel sounds - GI Soft Deferred - No abnormalities - Ext No significant edema. - MSK 4+/5 weakness in both lower extremities. - Neuro No focal deficits - Psych No abnormalities ASSESSMENT: Pt. is a 75 yo Right-handed white male.On 04/07/2021 he was admitted to [facility] and [facility] ent emergency surgery for thoracic vertebral fracture (Fusion of T6-T12 ) by Dr Mir.Pre-morbidly , Pt. was independent/mod-I in Transfers Control and Locomotion; and he had good Balance, Safety Awar eness, Self-Care, Social Cognition, Sphincter Control, and Communication.Currently, he has deficits o f Transfers Control, Balance, Locomotion, Safety Awareness, Self-Care, Social Cognition, Sphincter Co ntrol, and Communication.Pt. is now referred to [facility] for acute in-patien t rehabilitation in order to maximize patient's functional independence in activities of daily living , strength, ROM, and mobility.- Rehab Goal Patient has realistic goal of being discharged at assistance level 6-Irving to reside at Home with Fri ends. MDM/PLAN: - Physical Therapy Gait dysfunction - to improve, our physical therapists will perform initial evaluation of pt's statu s upon admission and devise an individualized program for Gait Training, and Wheel Chair mobility Inability to transfer - to improve, our physical therapists will perform initial evaluation of pt's status upon admission and devise an individualized program for Bed mobility Need for home safety evaluation - to improve, our physical therapists will perform initial evaluatio n of pt's status upon admission and devise an individualized program for Home Evaluation Need in caregiver upon discharge - to improve, our physical therapists will perform initial evaluati on of pt's status upon admission and devise an individualized program for Caregiver Training Edema - to improve, our physical therapists will perform initial evaluation of pt's status upon admi ssion and devise an individualized program for Elevation Training, and Lymphedema Therapy New precaution - to improve, our physical therapists will perform initial evaluation of pt's status upon admission and devise an individualized program for Patient precaution education Poor balance - to improve, our physical therapists will perform initial evaluation of pt's status up on admission and devise an individualized program for Balance Training Weakness - to improve, our physical therapists will perform initial evaluation of pt's status upon a dmission and devise an individualized program for Aquatic Therapy, Neuromuscular Reeducation, and Str engthening Achieving independence - to improve, our physical therapists will perform initial evaluation of pt's status upon admission and devise an individualized program for Community Reintegration Activities - Occupational Therapy ADL deficits - to improve, our occupation therapists will perform initial evaluation of pt's status upon admission and devise an individualized program for Bathing, Bed mobility, Community Reintegratio n, Cooking, Dressing, Eating, Fine Motor Skills, Grooming, Homemaking, Kitchen Mobility, Laundry, Pat ient Education, Safety Awareness, Splinting - Positioning, Transfers(Toilet, Tub, Shower), and Wheel Chair Management Cognitive deficits - to improve, our occupation therapists will perform initial evaluation of pt's s tatus upon admission and devise an individualized program for Cognition - orientation Need for home care administrator - to improve, our occupation therapists will perform initial evaluation of pt's status upon admission and devise an individualized program for Caregiver Training Weakness - to improve, our occupation therapists will perform initial evaluation of pt's status upon admission and devise an individualized program for Aquatic Therapy, Balance, Endurance, UE ROM, and UE strengthening - Other See attached MAR (Medication Administration Record) - Diet Type Continue Regular - Diet - Liquid Texture Continue Regular - Tube Feed Continue N/A - Bladder care per protocol - N/A Thoracic Precautions - Skin care per protocol - Diet - Solid Texture Continue Regular - Shower allowing shower FUNCTIONAL STATUS: UPDATED AT WEEKLY TEAM CONFERENCE - Bladder Same Bladder control device used: diaper - Bowel Same Bowel control device used: diaper - Walking Same score based on distance walked: 1(<=50ft) FUNCTIONAL STATUS: - Self-Care A. Eating Ind B. Grooming sup C. Bathing modA D. Dressing - Upper Eugenio E. Dressing - Lower modA F. Toileting modA - Sphincter Control G. Bladder control sup H. Bowel control sup - Transfers Control I. Bed/Chair/Wheelchair Eugenio J. Toilet Eugenio K. Tub/Shower modA - Locomotion L. Walk/Wheelchair (B) modA M. Stairs ADNO - Communication N. Comprehension (B) Irving O. Expression (B) Irving - Social Cognition P. Social Interaction Ind Q. Problem Solving sup R. Memory sup - Endurance Poor - Balance Fair - Safety Awareness Fair QI SCORES: - Self-Care A. Eating 04-Supervision or touching assistance B. Oral hygiene 04-Supervision or touching assistance C. Toileting hygiene 03-Partial/moderate assistance E. Shower/bathe self 03-Partial/moderate assistance F. Upper body dressing 03-Partial/moderate assistance G. Lower body dressing 03-Partial/moderate assistance H. Putting on/taking off footwear 02-Substantial/maximal assistance - Mobility A. Roll left and right 03-Partial/moderate assistance B. Sit to lying 03-Partial/moderate assistance C. Lying to sitting on side of bed 03-Partial/moderate assistance D. Sit to stand 03-Partial/moderate assistance E. Chair/nvn-ni-[id number] transfer 03-Partial/moderate assistance F. Toilet transfer 03-Partial/moderate assistance G. Car transfer 10-Not attempted due to environmental limitations I. Walk 10 feet 88-Not attempted due to medical condition or safety concerns J. Walk 50 feet with two turns 88-Not attempted due to medical condition or safety concerns K. Walk 150 feet 88-Not attempted due to medical condition or safety concerns L. Walking 10 feet on uneven surfaces 88-Not attempted due to medical condition or safety concerns M. 1 step (curb) 88-Not attempted due to medical condition or safety concerns N. 4 steps 88-Not attempted due to medical condition or safety concerns O. 12 steps 88-Not attempted due to medical condition or safety concerns P. Picking up object 88-Not attempted due to medical condition or safety concerns - Bladder and Bowel Bladder continence 4-Always incontinent Bowel continence 3-Always incontinent - Endurance Poor - Balance Poor - Safety Awareness Poor CURRENT FUNC. DEFICITS: Self-Care, Mobility, Endurance, Balance, and Safety Awareness SIGNATURE PANEL: (CDT)
[2021-05-02 20:28] VITALS: O2SAT 94
[2021-05-02] MEDS: ATORVASTATIN 20 MG TAB PO SCH (21:32)
[2021-05-02] MEDS: DOCUSATE NA/SENNA CONC 1 TAB PO SCH (21:32)
[2021-05-02] MEDS: MELATONIN 3 MG TABLET PO PRN (21:33)
[2021-05-02] MEDS: BENZONATATE 100 MG CAP PO PRN (21:33)
[2021-05-02] MEDS: ACETAMINOPHEN 500 MG TAB PO PRN (21:34)
[2021-05-03] MEDS: carvediloL 12.5 MG TAB PO SCH ×2 (05:01→17:07)
[2021-05-03 06:38] LABS: Absolute Lymphocytes (CBC) 1.6 K/uL (0.7-4.9); Basophils % 0.7 % (0-1.3); Hematocrit 32.2 % (39.6-49.0); Lymphocytes % 35.6 % (15.3-44.8); MPV 7.1 fL (7.6-11.3); RBC Red Blood Cell Count 3.69 M/uL (4.33-5.43)
[2021-05-03 06:57] LABS: Albumin 2.6 g/dL (3.4-5.0); BUN Blood Urea Nitrogen 19 mg/dL (7-18); Bicarbonate 30 mmol/L (21-32); Glucose Level 89 mg/dL (74-106); Magnesium 2.3 mg/dL (1.8-2.4); Potassium 3.9 mmol/L (3.5-5.1); Prealbumin 16.2 mg/dL (20-40); Sodium Level 139 mmol/L (136-145)
[2021-05-03] MEDS: lisinopriL 10 MG TAB PO SCH (07:34)
[2021-05-03] MEDS: FUROSEMIDE 20 MG TABLET PO SCH (07:34)
[2021-05-03] MEDS: HEPARIN 5000 UNIT/ML 1 ML VIAL SQ SCH (08:00)
[2021-05-03] MEDS: ASPIRIN EC 81 MG TAB PO SCH (08:15)
[2021-05-03] MEDS: DULOXETINE 20 MG CAP PO SCH (08:15)
[2021-05-03] MEDS: HYDRALAZINE HCL 10 MG TABLET PO SCH ×2 (08:16→20:00)
[2021-05-03] MEDS: LIDOCAINE 4% PATCH TOP SCH (08:16)
[2021-05-03] MEDS: GABAPENTIN 300 MG CAP PO SCH ×2 (08:16→20:43)
[2021-05-03] MEDS: MAGNESIUM OXIDE 400 MG TAB PO SCH ×2 (09:04→20:43)
[2021-05-03] MEDS: TRAMADOL HCL 50 MG TAB PO PRN (09:04)
[2021-05-03] MEDS: AMLODIPINE 2.5 MG TAB PO SCH (12:52)
[2021-05-03] MEDS: ACETAMINOPHEN 500 MG TAB PO PRN (12:53)
--- NOTE | 2021-05-03 17:36 | R.PN ---
PROGRESS NOTES ENCOUNTER DATE AND TIME: 05/03/2021 17:33 (CDT) NAME RENE CHAMBERLAIN DATE OF : 1945 DATE OF ADMISSION: 04/18/2021 16:50 (CDT) thoracic vertebral fractureCHIEF COMPLAINT: Thoracic vertebral fracture and debility. SUBJECTIVE: Pt denied any depression. Pt denied any Shortness of Breath. Ambulated 195' with contact guard assistance, verbal ques and rolling walker. CBC with differential shows mildly low Hgb of 10.7, Na 139, prealbumin 16.2, glucose 83 to 89. VITAL SIGNS Temperature: 97.8 F SBP/DBP: 140/68 Pulse: 62 Resp: 16 MEDICATION ALLERGIES: bactrim tetanus toxoid ENVIRONMENTAL ALLERGIES: None Known - Substance Allergies None Known - Other Allergies None Known NURSING: - Shower allowing shower - Bladder care per protocol - Skin care per protocol PRECAUTIONS: - N/A Thoracic Precautions ACTIVITIES OOB only with supervision THERAPIES: - Orthotics/Prosthetics Orthotic Evaluation. Splinting/Casting. - Dietary and Nutrition Adequate Nutrition. Nutritional Education. Nutritional Supplements. PHYSICAL EXAM - Gen Alert and awake Lying in bed No apparent distress Oriented to: person, time, and place - Skin No breakdown Normacephalic - Eyes No abnormalities - ENMT No abnormalities - Neck No abnormalities - CVS RRR - Chest Turtle shell is in place. - Resp Clear to auscultation - Abd + bowel sounds - GI Soft Deferred - No abnormalities - Ext No significant edema. - MSK 4+/5 weakness in both lower extremities. - Neuro No focal deficits - Psych No abnormalities ASSESSMENT: Pt. is a 75 yo Right-handed white male.On 04/07/2021 he was admitted to [facility] and [facility] ent emergency surgery for thoracic vertebral fracture (Fusion of T6-T12 ) by Dr Mir.Pre-morbidly , Pt. was independent/mod-I in Transfers Control and Locomotion; and he had good Balance, Safety Awar eness, Self-Care, Social Cognition, Sphincter Control, and Communication.Currently, he has deficits o f Transfers Control, Balance, Locomotion, Safety Awareness, Self-Care, Social Cognition, Sphincter Co ntrol, and Communication.Pt. is now referred to [facility] for acute in-patien t rehabilitation in order to maximize patient's functional independence in activities of daily living , strength, ROM, and mobility.- Rehab Goal Patient has realistic goal of being discharged at assistance level 6-Irving to reside at Home with Fri ends. MDM/PLAN: - Physical Therapy Gait dysfunction - to improve, our physical therapists will perform initial evaluation of pt's statu s upon admission and devise an individualized program for Gait Training, and Wheel Chair mobility Inability to transfer - to improve, our physical therapists will perform initial evaluation of pt's status upon admission and devise an individualized program for Bed mobility Need for home safety evaluation - to improve, our physical therapists will perform initial evaluatio n of pt's status upon admission and devise an individualized program for Home Evaluation Need in caregiver upon discharge - to improve, our physical therapists will perform initial evaluati on of pt's status upon admission and devise an individualized program for Caregiver Training Edema - to improve, our physical therapists will perform initial evaluation of pt's status upon admi ssion and devise an individualized program for Elevation Training, and Lymphedema Therapy New precaution - to improve, our physical therapists will perform initial evaluation of pt's status upon admission and devise an individualized program for Patient precaution education Poor balance - to improve, our physical therapists will perform initial evaluation of pt's status up on admission and devise an individualized program for Balance Training Weakness - to improve, our physical therapists will perform initial evaluation of pt's status upon a dmission and devise an individualized program for Aquatic Therapy, Neuromuscular Reeducation, and Str engthening Achieving independence - to improve, our physical therapists will perform initial evaluation of pt's status upon admission and devise an individualized program for Community Reintegration Activities - Occupational Therapy ADL deficits - to improve, our occupation therapists will perform initial evaluation of pt's status upon admission and devise an individualized program for Bathing, Bed mobility, Community Reintegratio n, Cooking, Dressing, Eating, Fine Motor Skills, Grooming, Homemaking, Kitchen Mobility, Laundry, Pat ient Education, Safety Awareness, Splinting - Positioning, Transfers(Toilet, Tub, Shower), and Wheel Chair Management Cognitive deficits - to improve, our occupation therapists will perform initial evaluation of pt's s tatus upon admission and devise an individualized program for Cognition - orientation Need for acute care certified nursing assistant - to improve, our occupation therapists will perform initial evaluation of pt's status upon admission and devise an individualized program for Caregiver Training Weakness - to improve, our occupation therapists will perform initial evaluation of pt's status upon admission and devise an individualized program for Aquatic Therapy, Balance, Endurance, UE ROM, and UE strengthening - Other See attached MAR (Medication Administration Record) - Diet Type Continue Regular - Diet - Liquid Texture Continue Regular - Tube Feed Continue N/A - Bladder care per protocol - N/A Thoracic Precautions - Skin care per protocol - Diet - Solid Texture Continue Regular - Shower allowing shower FUNCTIONAL STATUS: UPDATED AT WEEKLY TEAM CONFERENCE - Bladder Same Bladder control device used: diaper - Bowel Same Bowel control device used: diaper - Walking Same score based on distance walked: 1(<=50ft) FUNCTIONAL STATUS: - Self-Care A. Eating Ind B. Grooming sup C. Bathing modA D. Dressing - Upper Eugenio E. Dressing - Lower modA F. Toileting modA - Sphincter Control G. Bladder control sup H. Bowel control sup - Transfers Control I. Bed/Chair/Wheelchair Eugenio J. Toilet Eugenio K. Tub/Shower modA - Locomotion L. Walk/Wheelchair (B) modA M. Stairs ADNO - Communication N. Comprehension (B) Irving O. Expression (B) Irving - Social Cognition P. Social Interaction Ind Q. Problem Solving sup R. Memory sup - Endurance Poor - Balance Fair - Safety Awareness Fair QI SCORES: - Self-Care A. Eating 04-Supervision or touching assistance B. Oral hygiene 04-Supervision or touching assistance C. Toileting hygiene 03-Partial/moderate assistance E. Shower/bathe self 03-Partial/moderate assistance F. Upper body dressing 03-Partial/moderate assistance G. Lower body dressing 03-Partial/moderate assistance H. Putting on/taking off footwear 02-Substantial/maximal assistance - Mobility A. Roll left and right 03-Partial/moderate assistance B. Sit to lying 03-Partial/moderate assistance C. Lying to sitting on side of bed 03-Partial/moderate assistance D. Sit to stand 03-Partial/moderate assistance E. Chair/[id number]-[id number] transfer 03-Partial/moderate assistance F. Toilet transfer 03-Partial/moderate assistance G. Car transfer 10-Not attempted due to environmental limitations I. Walk 10 feet 88-Not attempted due to medical condition or safety concerns J. Walk 50 feet with two turns 88-Not attempted due to medical condition or safety concerns K. Walk 150 feet 88-Not attempted due to medical condition or safety concerns L. Walking 10 feet on uneven surfaces 88-Not attempted due to medical condition or safety concerns M. 1 step (curb) 88-Not attempted due to medical condition or safety concerns N. 4 steps 88-Not attempted due to medical condition or safety concerns O. 12 steps 88-Not attempted due to medical condition or safety concerns P. Picking up object 88-Not attempted due to medical condition or safety concerns - Bladder and Bowel Bladder continence 4-Always incontinent Bowel continence 3-Always incontinent - Endurance Poor - Balance Poor - Safety Awareness Poor CURRENT FUNC. DEFICITS: Self-Care, Mobility, Endurance, Balance, and Safety Awareness SIGNATURE PANEL: (CDT)
[2021-05-03] MEDS: DOCUSATE NA/SENNA CONC 1 TAB PO SCH (20:43)
[2021-05-03] MEDS: ATORVASTATIN 20 MG TAB PO SCH (20:43)
[2021-05-03] MEDS: APIXABAN 2.5 MG TABLET PO SCH (20:43)
[2021-05-03] MEDS: MELATONIN 3 MG TABLET PO PRN (20:43)
[2021-05-04] MEDS: carvediloL 12.5 MG TAB PO SCH (05:12)
[2021-05-04 07:27] VITALS: TEMP 98
[2021-05-04] MEDS: TRAMADOL HCL 50 MG TAB PO PRN ×2 (07:42→15:05)
[2021-05-04] MEDS: FUROSEMIDE 20 MG TABLET PO SCH (07:43)
[2021-05-04] MEDS: HYDRALAZINE HCL 10 MG TABLET PO SCH (07:44)
[2021-05-04] MEDS: lisinopriL 10 MG TAB PO SCH (07:44)
[2021-05-04] MEDS: APIXABAN 2.5 MG TABLET PO SCH (07:51)
[2021-05-04] MEDS: ASPIRIN EC 81 MG TAB PO SCH (07:52)
[2021-05-04] MEDS: MAGNESIUM OXIDE 400 MG TAB PO SCH (07:52)
[2021-05-04] MEDS: DULOXETINE 20 MG CAP PO SCH (07:52)
[2021-05-04] MEDS: GABAPENTIN 300 MG CAP PO SCH (07:52)
--- NOTE | 2021-05-04 09:50 | P.RH.PN ---
Estimated Length of Stay: 16 Expected Discharge Date: 05/04/21 Discharge Disposition Plan: Home Family Support: Yes Mcfp Goal: Mobility, Transfers, Self Care Vital Signs: Last Vital Signs Temp 98 F 05/04/21 07:26 Pulse 64 05/04/21 07:44 Resp 16 05/04/21 08:39 BP 189/86 H 05/04/21 07:44 Pulse Ox 94 05/04/21 08:39 Laboratory: Laboratory Last Values WBC 4.50 K/uL (4.3-10.9) D 05/03/21 06:24 RBC 3.69 M/uL (4.33-5.43) L 05/03/21 06:24 Hgb 10.7 g/dL (13.6-17.9) L 05/03/21 06:24 Hct 32.2 % (39.6-49.0) L 05/03/21 06:24 MCV 87.3 fL (80-100) 05/03/21 06:24 MCH 28.9 pg (27.0-35.0) 05/03/21 06:24 MCHC 33.1 g/dL (32.0-36.0) 05/03/21 06:24 RDW 15.3 % (12.1-15.2) H 05/03/21 06:24 Plt Count 192 K/uL (152-406) D 05/03/21 06:24 MPV 7.1 fL (7.6-11.3) L 05/03/21 06:24 Neutrophils % 48.9 % (41.7-73.7) 05/03/21 06:24 Lymphocytes % 35.6 % (15.3-44.8) 05/03/21 06:24 Monocytes % 10.8 % (3.3-12.3) 05/03/21 06:24 Eosinophils % 4.0 % (0-4.4) 05/03/21 06:24 Basophils % 0.7 % (0-1.3) 05/03/21 06:24 Absolute Neutrophils 2.2 K/uL (1.8-8.0) 05/03/21 06:24 Absolute Lymphocytes 1.6 K/uL (0.7-4.9) 05/03/21 06:24 Absolute Monocytes 0.5 K/uL (0.1-1.3) 05/03/21 06:24 Absolute Eosinophils 0.2 K/uL (0-0.5) 05/03/21 06:24 Absolute Basophils 0.0 K/uL (0-0.5) 05/03/21 06:24 Sodium 139 mmol/L (136-145) 05/03/21 06:24 Potassium 3.9 mmol/L (3.5-5.1) 05/03/21 06:24 Chloride 107 mmol/L (98-107) 05/03/21 06:24 Carbon Dioxide 30 mmol/L (21-32) 05/03/21 06:24 BUN 19 mg/dL (7-18) H 05/03/21 06:24 Creatinine 0.82 mg/dL (0.55-1.3) 05/03/21 06:24 Estimated GFR > 90 mL/min (=/>90) 05/03/21 06:24 Glucose 89 mg/dL (74-106) 05/03/21 06:24 POC Glucose 151 mg/dL (65-120) H 04/21/21 19:17 Calcium 9.7 mg/dL (8.5-10.1) 05/03/21 06:24 Magnesium 2.3 mg/dL (1.8-2.4) 05/03/21 06:24 Albumin 2.6 g/dL (3.4-5.0) L 05/03/21 06:24 Prealbumin 16.2 mg/dL (20-40) L 05/03/21 06:24 Urine Color Yellow (Yellow) 04/19/21 05:09 Urine Appearance Clear (Clear) 04/19/21 05:09 Urine pH 7.5 (5.0-7.0) H 04/19/21 05:09 Ur Specific Yeso 1.010 (1.005-1.030) 04/19/21 05:09 Glucose (UA)(Auto) Negative (Negative) 04/19/21 05:09 Urine Ketones Negative (Negative) 04/19/21 05:09 Urine Blood Negative (Negative) 04/19/21 05:09 Urine Nitrite Negative (Negative) 04/19/21 05:09 Urine Bilirubin Negative (Negative) 04/19/21 05:09 Urine Urobilinogen >=8.0 mg/dL (0.2-1.0) 04/19/21 05:09 Ur Leukocyte Esterase Negative (Negative) 04/19/21 05:09 Urine RBC None seen /HPF (NONE SEEN) 04/19/21 05:09 Urine WBC <5 /HPF (<5) 04/19/21 05:09 Ur Squamous Epith Cells <5 /HPF (NONE SEEN) 04/19/21 05:09 Urine Bacteria <20 /HPF (NONE SEEN) 04/19/21 05:09 Urine Culture Reflexed Not needed 04/19/21 05:09 Urine Total Protein Negative (Negative) 04/19/21 05:09 SARS-CoV-2 RNA (RT-PCR) Negative (NEGATIVE) 05/03/21 14:40 Weight: 211 lb Wound Present: No Closed Surgical Incision Present: Yes Negative Pressure Wound Therapy Present: No Physician Update: Labs reviewed and are stable. He did well with physical and occuaptional therapy. His pain is better controlled. He walked 60' feet with contact to standby assistance. Transfers and bed mobility was standby assistance. Still needs moderate to max assistance with ADLs. He leans to the left when upright. He will be discharged today to SNF. Functional Improvement: Patient continues to appear physically capable of more, however presents w/ lack of motivation. Patient is severely limited in gait tx., due to allowing B knees to flex, and RW to travel too far forward. Repeated VC and TC are given, however patient continues to present w/ same trend. Summary: Patient's care plan and intermediate goals have been reviewed and revised as necessary. Please see the Rehabilitation Signature page for all necessary signatures.
[2021-05-04] MEDS: LIDOCAINE 4% PATCH TOP SCH (10:28)
[2021-05-04] MEDS: AMLODIPINE 2.5 MG TAB PO SCH (12:00)
[2021-05-04 12:19] VITALS: BP 91/67
== END 2021-05-04 16:00 | DRG 561 ==
LOC: 5TH 16:50
PROVIDERS: ADMIT Psychiatry & Neurology Neurology with Special Qualifications in Child Neurology; ATTEND Psychiatry & Neurology Neurology with Special Qualifications in Child Neurology
DX: S22.009D Unspecified fracture of unspecified thoracic vertebra, subsequent encounter for fracture with routine healing (principal); I10 Essential (primary) hypertension; I25.10 Atherosclerotic heart disease of native coronary artery without angina pectoris; B35.1 Tinea unguium; E11.51 Type 2 diabetes mellitus with diabetic peripheral angiopathy without gangrene; Z96.659 Presence of unspecified artificial knee joint; Z95.0 Presence of cardiac pacemaker; Z20.822 Contact with and (suspected) exposure to COVID-19
CPT/HCPCS: 36415; 71045; 80048; 81001; 82040; 82947; 83735; 84134; 85025; 87086; 87088; 92523; 97110; 97112; 97116; 97161; 97530; 97542; J1644; U0003

== ENCOUNTER 2022-11-24 09:23 | Observation (INO) | payer OTHER ==
[2022-11-24] MEDS ORDERED: METHYLPREDNISOLONE 125 MG INJ ONE (09:49)
--- OUTSIDE RECORDS SUMMARY | 2022-11-24 09:49 | XMS REPORT | Continuity of Care Document ---
:1945 Author Organization [facility] Address [address] [place] [address] Care Team Providers Name Role Phone MARSHALL IVY Primary Care Physician UnavailJovanny Burks Attending Clinician Unavailable Mikey Padilla Rahil Attending Clinician Unavailable [id number] Attending Clinician Unavailable VENUS AMADO Attending Clinician Unavailable ADAMARIS WARD Attending Clinician Unavailable Adamaris Ward Attending Clinician Estuardo Attending Clinician Unavailable Jovanny Gauthier II Attending Clinician [facility] EL Attending Clinician Unavailable EDER JOHNSON Attending Clinician Unavailable Eder Johnson DO Attending Clinician [facility] Attending Clinician [phone] MIMI BANEGAS Attending Clinician Unavailable Mimi Banegas MD Attending Clinician Germaine Olivier Attending Clinician Unavailable Hussain Cruz MD Attending Clinician Shayne Costa Attending Clinician Unavailable JULY PHOENIX Attending Clinician Unavailable Magui Leyva Attending Clinician Kerrie Mosqueda Attending Clinician SARA MANJARREZ Attending Clinician Unavailable Oumou Francis Attending Clinician DRAGAN MORATAYA Attending Clinician Unavailable Dragan Morataya Attending Clinician Francis Garcia Attending Clinician A_Byrd Attending Clinician Unavailable Radha James Attending Clinician [facility] Oumou Admitting Clinician Unavailable Mikey Padilla Rahil Admitting Clinician Unavailable [id number] Admitting Clinician Unavailable NARENDRA ESPINOZA Admitting Clinician Unavailable Narendra Espinoza Admitting Clinician NAYE_Igor_Taras Admitting Clinician Unavailable [facility] El Admitting Clinician [facility] EL Admitting Clinician Unavailable EDER JOHNSON Admitting Clinician Unavailable MIMI BANEGAS Admitting Clinician Unavailable Germaine Olivier Admitting Clinician Unavailable Shayne Costa Admitting Clinician Unavailable KNOW, DOES_NOT Admitting Clinician Unavailable Kerrie Mosqueda Admitting Clinician SARA MANJARREZ Admitting Clinician Unavailable DRAGAN MORATAYA Admitting Clinician Unavailable Dragan Morataya Admitting Clinician A_Byrd Admitting Clinician Unavailable Payers Payer Name Policy Type Policy Number Effective Date Expiration Date S [facility] [id number] [facility] [id number] MEDICARE PART A AND [id number] 2005 B 00:00:00 [place]: [id number] 2005 [employer] 00:00:00 [employer] [id number] BENEFIT FUND (SECONDARY ONLY) CGS (MEDICARE DME [id number] 2005 [place]) 00:00:00 [place] [id number] CARE MEDICARE PART A \\T\\ [id number] 2005 B 00:00:00 COMMERCIAL [id number] 2005 NON-CONTRACT 00:00:00 GENERIC GENERIC-PRIVATE [id number] 2010 [facility] 00:00:00 Problems Condition Condition Condition Status Onset Resolution Last Treating Co mments Source Name Details Category Date Date Treatment Clinician Date KNEE PAIN KNEE PAIN Diagnosis Active 2022-11-01 Memoria Active 11-01 10:41:00 l 11/01/2022 00:00: Kameron huang [place] SEPTIC SEPTIC Diagnosis Active 2022-11-21 M emoria ARTHRITIS ARTHRITIS 11-01 13:29:00 l OF KNEE, OF KNEE, 00:00: Kameron huang RIGHT H/O RIGHT H/O 00 KNEE KNEE Active 11/01/2022 [facility] [place] Laceration Laceration Problem Active 2021-10 A zalea of right of Right 1-08 Orthop e knee Knee 00:00: dic 00 Sports Medicin e INFECTED INFECTED Diagnosis Active 2022-11-20 Memoria RIGHT KNEE RIGHT KNEE 9-12 21:57:00 l ARTHROPLAS ARTHROPLAS 00:00: He sundeepann TY, STATUS TY, STATUS 00 Active 07/08/2022 [facility] [place] Pain of Pain of Problem Active Nelda right knee Right Knee 8-17 Or thope joint Joint 00:00: dic 00 Sports Medicin e Keloid Keloid Problem Active Nelda scar Scar 7-13 Orthope 00:00: dic 00 Sports Medicin e Infection Infection Problem Active Aza marialuisa associated Associated 7-05 Or thope with with 00:00: dic prosthesis Prosthesis 00 Sp orts of right of Right Medici n knee joint Knee Joint e Patellofem Patellofem Problem Active A zalea oral oral 11-14 Orthope stress Stress 00:00: dic syndrome Syndrome 00 Sports Medicin e 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 11-14 Or thope knee joint Knee Joint 00:00: di c 00 Sports Medicin e Pain in Pain in Problem Active Nelda left knee Left Knee 11-14 Orth ope 00:00: dic 00 Sports Medicin e ACUTE ACUTE Diagnosis Active 2021-05-01 Mem oria HYPOXEMIC HYPOXEMIC 04-06 22:01:00 l RESPIRATOR RESPIRATOR 00:00: He rmann Y Y 00 FAILURE,S/ FAILURE,S/ P P Active 04/06/2021 [facility] S/P FALL, S/P FALL, Diagnosis Active 2021-04-06 Memoria INTRACTABL INTRACTABL 04-06 23:04:00 l E LOWER E LOWER 00:00: [place] BACK PAIN BACK PAIN 00 Active 04/06/2021 [facility] 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 3-23 Ratna kes is is 00:00: Medical 00 Center Acute Acute Disease Active 2019- [facility] hypoxemic hypoxemic 2-21 [facility] respirator respirator 00:00: Me dical y failure y failure 00 Cent er Septic Septic Disease Active [facility] shock shock 2-21 [facility] Infection Infection Disease Active [facility] of of 2[facility]19 [facility] pacemaker pacemaker 00:00: Medi yoana pocket pocket 00 Center NON NON Diagnosis Active 2019-12-20 Mem oria CAPTURED CAPTURED 12-10 21:58:00 l PACEMAKER PACEMAKER 00:00: Herm natasha Active 00 12/10/2019 [facility] Wear of Wear of Problem Active 2016-10 Nelda articular Articular 0-13 Orth ope bearing Bearing 00:00: dic surface of Surface of 00 Sp orts prosthetic Prosthetic Me dicin joint Joint e Xerosis Xerosis Disease Active 2014-10 [facility] cutis cutis 2-17 College 00:00: of 00 Medicin e Cardiomyop Cardiomyo Problem Active 2022-11-14 Memoria athy panda 9-12 00:06:22 l (disorder) (disorder) 00:00: He rmann Active 00 07/08/2014 Problem 11/14/2022 Data migrated from [employer] on 05/31/15.
Data migrated from [employer] on 03/25/15. [facility] Asbestosis Asbestosi Problem Active 2022-11-04 Memoria (disorder) s 07-07 16:33:51 l (disorder) 00:00: Kameron huang Active 00 07/07/2014 Problem 11/04/2022 Data migrated from [employer] on 03/25/15. [facility] Body mass Body mass Problem Active 2022-11-04 Memoria index 30+ index 30+ 07-07 16:33:51 l - obesity - obesity 00:00: Al kaur (finding) (finding) 00 Active 07/07/2014 Problem 11/04/2022 Data migrated from [employer] on 03/25/15. [facility] DIZZINESS DIZZINESS Diagnosis Active 2014-05-03 Memoria Active 05-03 11:52:00 l 05/03/2014 00:00: Kameron huang [facility] 00 Land Complete Complete Problem Active 2022-11-04 Memoria atrioventr atrioventr 2-24 16:33:51 l icular icular 00:00: Luis branch block 00 (disorder) (disorder) Active 12/20/2013 Problem 11/04/2022 Data migrated from [employer] on 05/31/15.
Data migrated from [employer] on 03/25/15. 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) 00:00: of , face , face 00 Medicin e Benign Benign Disease Active 2012-10 [facility] neoplasm neoplasm 0-23 Colleg e of other of other 00:00: of specified specified 00 Medi kelly sites of sites of e skin skin Personal Personal Disease Active 2012-10 [facility] history of history of 0-23 Co llege skin skin 00:00: of cancer cancer 00 Medicin e Sebaceous Sebaceous Disease Active 2011-10 [place] philipp hyperplasi hyperplasi 2-05 Co llege a a 00:00: of 00 Medicin e EIC EIC Disease Active 2011-10 [facility] (epidermal (epidermal 2-05 Co llege inclusion inclusion 00:00: of cyst) cyst) 00 Medicin e Neoplasm Neoplasm Disease Active 2011-10 [facility] r of of 0-12 College uncertain uncertain 00:00: of behavior behavior 00 Medici n of skin of skin e AK AK Disease Active 2011-10 [facility] (actinic (actinic 0-12 Colleg e keratosis) keratosis) 00:00: of 00 Medicin e Keratosis Keratosis Disease Active 2011-10 [place] philipp seborrheic seborrheic 0-12 Co llege a a 00:00: of 00 Medicin e Milium Milium Disease Active 2011-10 [facility] 0-12 College 00:00: of 00 Medicin e ILLNESS, ILLNESS, Diagnosis Active 2019-12-20 Memoria UNSPECIFIE UNSPECIFIE 21:58:00 l D D Active Luis [facility] ACUTE ACUTE Diagnosis Active 2021-05-01 Mem oria RESPIRATOR RESPIRATOR 22:01:00 l Y FAILURE Y FAILURE Herm natasha WITH WITH HYPOXIA HYPOXIA Active [facility] SEPSIS, SEPSIS, Diagnosis Active 2022-07-29 Memoria UNSPECIFIE UNSPECIFIE 11:35:00 l D ORGANISM D ORGANISM He rmann Active [place] Infection Infection Problem 2022 Memoria and and 23:05:44 l inflammato inflammato He rmann ry ry reaction reaction due to due to internal internal right knee right knee prosthesis prosthesis , initial , initial encounter encounter 2022 [facility] Hypertensi Hypertens Problem Resolve 2022-11-04 Memoria ve keturah d 16:33:51 l disorder, disorder, Herm natasha systemic systemic arterial arterial (disorder) (disorder) Resolved Problem 11/04/2022 [facility] Rhythm Rhythm Problem Resolve 2022-11-04 Mem oria from from d 16:33:51 l artificial artificial He r[place] pacing pacing (finding) (finding) Resolved Problem 11/04/2022 [facility] Group,[facility] Atheroscle Atheroscl Problem Active 2022-11-04 Memoria rosis of erosis of 16:33:51 l coronary coronary Kameron n artery artery (disorder) (disorder) Active Problem 11/04/2022 Data migrated from [employer] on 03/25/15. [facility] Dyspnea on Dyspnea Problem Active 2022-11-04 Memoria exertion on 16:33:51 l (finding) exertion Cata nn (finding) Active Problem 11/04/2022 Data migrated from [employer] on 05/31/15.
Data migrated from [employer] on 03/25/15. [facility] Hyperlipid Hyperlipi Problem Active 2022-11-04 Memoria emia demia 16:33:51 l (disorder) (disorder) He rmann Active Problem 11/04/2022 Data migrated from [employer] on 05/31/15.
Data migrated from [employer] on 03/25/15. 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 Essential Essential Problem Active 2022-11-14 Memoria hypertensi hypertensi 00:06:22 l on on Luis (disorder) (disorder) Active Problem 11/14/2022 [facility] Injury of Injury of Problem Active 2022-11-14 Memoria kidney kidney 00:06:22 l (disorder) (disorder) He rmann Active Problem 11/14/2022 [facility] INFECT/INF INFECT/IN Diagnosis Active 2022-11-20 Memoria LM FLM 21:57:00 l REACTION REACTION Kameron n DUE TO DUE TO INTERNAL R INTERNAL R Active [place] PYOGENIC PYOGENIC Diagnosis Active 2022-11-22 Memoria ARTHRITIS, ARTHRITIS, 19:10:00 l UNSPECIFIE UNSPECIFIE He r[place] D D Active [place] PRESENCE PRESENCE Diagnosis Active 2022-11-21 Memoria OF OF 13:29:00 l UNSPECIFIE UNSPECIFIE He r[place] D D ARTIFICIAL ARTIFICIAL KNEE KNEE Active [place] No known No known Disease Unive rs active active ity of problems problems [facility] Preoperati Preoperat Problem Resolve 2022-11-04 2022-11-04 Memoria ve keturah d 2-24 16:33:51 16:33:51 l cardiovasc cardiovasc 00:00: He rj ular ular 00 examinatio examinatio n n (procedure (procedure ) ) Resolved 12/20/2013 Problem 11/04/2022 Data migrated from [employer] on 05/13/15.<b r/>Data migrated from [email or web address] on 05/12/15. [facility] Patient Patient Problem Resolve 2011-102022-11-04 2022-11-04 Memoria with with d 0-08 16:33:51 16:33:51 l cardiac cardiac 00:00: Luis pacemaker pacemaker 00 (finding) (finding) Resolved 08/03/2012 Problem 11/04/2022 Data migrated from [email or web address] on 05/31/15.
Data migrated from [email or web address] on 05/03/15. [facility] History of Past Illness Condition Condition Condition Status Onset Resolution Last Treating Co mments Source Name Details Category Date Date Treatment Clinician Date Discharge Discharge Problem 2014-05-06 2014-05-06 Memoria Diagnosis: Diagnosis: - 03:20:30 03:20:30 l Dizziness Dizziness 05:00: Herm natasha 05/03/2014 00 05/06/2014 [facility] Allergies, Adverse Reactions, Alerts Allergy Allergy Status Severity Reaction(s) Onset Inactive Treating Comm ents Source Name Type Date Date Clinician No Known DA Active [facility] Allergie 1-05 Clear s 00:00: Goins 00 [facility] No Known DA Active [facility] Allergie 6-09 Clear s 00:00: Goins 00 [facility] Sulfa Propensi Active 2019-[address] [facility] (Sulfona ty to 2-19 [facility] mide adverse 00:00: Medical Antibiot reaction 00 Center ics) s Tetanus Propensi Active 2019-[address] [facility] Vaccines ty to 2-19 [facility] And adverse 00:00: Medical Toxoid reaction 00 Center s Sulfamet Propensi Active 2019- [facility] hoxazole ty to 2-19 [facility] -Trimeth adverse 00:00: Medical oprim reaction 00 Center s Sulfa Propensi Active 2019- [facility] (Sulfona ty to 2-19 [facility]ide adverse 00:00: Medical Antibiot reaction 00 [facility]) s Tetanus Propensi Active 2019-[address] [facility] Vaccines ty to 2-19 [facility] And adverse 00:00: Medical Toxoid reaction 00 [facility] TETANUS DRUG Active Unknown-Cmnt Uni vers TOXOID 18 ity of 00:00: [place] 00 Medical Branch Tetanus Propensi Active Unknown - Univ ers Toxoid ty to See comments 18 ity of adverse 00:00: [place] reaction 00 Medical s Branch Bactrim Propensi Active Itching 2011-10 [facility] ty to 0-11 College adverse 00:00: of reaction 00 Medicin s to e drug SULFAMET DRUG Active ITCHING 2011-10 Univers HOXAZOLE INGREDI 0-11 ity of 00:00: [place] [facility] Sulfamet Propensi Active Itching 2011-10 Unive rs hoxazole ty to 0-11 ity of adverse 00:00: [place] reaction 00 Medical s Branch No Known DA Active [facility] Allergie 2-28 [place] [facility] 00:00: d 00 [facility] SULFAMET Allergy Active [facility] HOXAZOLE [facility] -TRIMETH Medical OPRIM Center SULFA Allergy Active [facility] (SULFONA [facility] MIDE Medical ANTIBIOT Center ICS) TETANUS Allergy Active [facility] VACCINES [facility] AND Medical TOXOID Center sulfamet sulfamet Active Memori a hoxazole hoxazole l -trimeth -trimeth Kameron n oprim<parker oprim<parker p>1</sup p>1</sup > > tetanus tetanus Active Memoria toxoid<s toxoid<s l up>2</parker up>2</parker Kameron n p> p> Social History Social Habit Start Date Stop Date Quantity Comments Source History SDOH [facility] Alcohol Binge Medical Cassidy ter History SDOH [facility] Alcohol Comment Medical C enter History SDOH [facility] Alcohol Std Medical Cente r Drinks Exposure to 2022-06-22 2022-07-02 Not sure University SARS-CoV-2 00:00:00 14:21:00 [facility] (event) Branch Alcohol intake 2020-02-01 2020-02-[address] [facility] es 00:00:00 00:00:00 non-drinker of Medical Ce nter alcohol (finding) Tobacco use and 2019-12-15 2019-12-[address] [facility] [facility]es exposure 00:00:00 00:00:00 Medical Center History SDOH 2019-12-15 2019-12-[address] [facility] Alcohol Frequency 00:00:00 00:00:00 [facility] Social History 2019-12-11 2019-12-[address] [facility] 03:44:19 03:44:19 History of 1992-10-27 Smoker [facility] of tobacco use 00:00:00 Medicine Sex Assigned At [address] [facility] 00:00:00 00:00:00 [facility] Smoking Status Start Date Stop Date Source Social History 2022-11-02 05:17:47 2022-11-02 05:17:47 [facility] Social [facility] Medications Ordered Filled Start Stop Current Ordering Indication Dosage Frequency Signature Comments Components Source Medication Medication Date Date Medication? Clinician (SIG) Name Name polyethylen Yes 17 gm, PO, Memoria e glycol 1-16 Daily, 0 l 3350 17:32: Refill(s) [place] 00 methocarbam Yes 500 mg = 1 Memoria ol 500 mg 1-16 tab, PO, l oral tablet 17:28: TID, PRN He rmann 00 Muscle Spasms, 0 Refill(s) ceFAZolin 1 Yes See Memori a g/10 mL 1-16 Instructio l intravenous 17:27: ns, 1g q8h [place] solution 00 till 12/16, # 60 ea, 0 Refill(s), other ropivacaine Yes Notes: Memoria 11-04 NOT FOR IV l 14:00: use [place] 00 Ropivacain e 5 mg/mL (49.25 mL) Epinephrin e 1 mg/mL (0.5 mL) Clonidine 0.1 mg/mL (0.8 mL) Ketorolac 30 mg/mL (1 mL) Normal Saline 48.45 mL polymyxin B Yes Notes: Mike richelle sulfate + 11-04 (Same as: l Sodium 14:00: Polymyxin Kameron n Chloride 00 B Sulfate) 0.9% IV 250 mL CeleBREX Yes Notes: Memoria 11-04 NSAID. l 14:00: Please Luis 00 check indication . Not for seizure. (Same As: CeleBREX) Lactated Yes 1,000 mL, Mike richelle Ringers 11-04 Rate: 75 l Injection 13:43: ml/hr, Kameron n IV 1,000 mL 00 Infuse over: 13.3 hr, Route: IV, Dosing Weight 111.818 kg, Total Volume: 1,000, Start date: 11/04/22 7:43:00 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, Duration: 30 day, Stop date: 12/04/22 7:42:00 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, BSA: 2.36 m2, 0 acetaminoph No Notes: Max Memoria en 11-04 acetaminop l 13:43: hen 4000 Luis 00 mg/day (4 gm/day). (Same as: Tylenol Extra Strength) vancomycin No 2000 mg: Me moria -07 infuse l 18:00: over 2.5 [place] 00 hours vancomycin Yes 2000 mg: Me moria + Sodium 07 infuse l Chloride 17:00: over 2.5 Cata nn 0.9% IV 250 00 hours For mL adult patients only: Round to nearest 250 mg per Medical Staff approval MEDICATION WASTE Product Size: 1000 mg Product Wasted: ___ mg polyethylen Yes Notes: Mike richelle e glycol 11-02 Dissolve l 3350 15:00: in 8 oz of Luis 00 water or juice. (Same as: Miralax) heparin Yes Notes: Memoria -07 porcine l 15:00: heparin amLODIPine Yes Notes: Memor ia 11-02 (Same as: l 15:00: Norvasc) aspirin 81 Yes Notes: Do Me moria mg tablet, 11-02 not crush l enteric 15:00: or chew. Kameron n coated 00 (Same As: Ecotrin) pantoprazol Yes Notes: Mike richelle e 11-02 Tablet l 15:00: should not be chewed or crushed. (Same as: Protonix) potassium No /= 14 Memoria chloride 20 -07 Tongan, l mEq oral 14:17: may Luis tablet, 00 dissolve extended each 20 release mEq tablet (KCL) in 4 oz of water. Allow about 2 minutes for the tablets to disintegra te. Stir before giving to prepare slurry and administer . Please exclude patient's with feeding tube less than 14 Tongan (Dobhoff, J-tube, etc) and pediatric and patients. lactulose\\w No Notes: Mike richelle ater - 11-02 Lactulose l enema 05:39: 300ml, Water for Irrigation 700ml - total volume = 1000ml influenza Yes Notes: Memori a virus 11-02 (Same as: l vaccine, 05:28: Fluzone Kameron n inactivated 45 High-Dose high-dose Quad) For preservativ 65 years e-free of age of intramuscul older (0.7 ar ml IM) suspension Shake well before use atorvastati Yes Notes: Mike richelle n - (Same As: l 03:00: Lipitor) busPIRone Yes Notes: Memori a - (Same As: l 03:00: BuSpar) carvedilol Yes Notes: Memor ia 11-02 Give with l 03:00: food. [place] 00 (Same As: Coreg) gabapentin Yes Notes: Memor ia 100 mg oral 11-02 (Same as: l capsule 03:00: Neurontin) senna 8.6 Yes Notes: Memori a mg oral 1-07 (Same as: l tablet 03:00: Senokot) [place] 00 lactulose Yes Notes: Memori a 1-07 (Same l 00:36: as:Chronul [place] ac) lactulose No 20 gm, 30 Mem oria 10 g/15 mL 1-07 ml, Route: l oral syrup 00:34: PO, Drug Her bui form: SYRP, TID, Dosing Weight 110, kg, PRN Other -See Comment, Start date: 11/01/22 18:34:00 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, Duration: 30 day, Stop date: 12/01/22 18:33:00 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 morphine Yes Notes: Memoria Sulfate - (Same l 23:07: as:MORPhin [place] e Sulfate) [place] Yes Notes: Do Memoria 10/325 oral - not exceed l tablet 23:07: 4gm/day of Cata nn acetaminop hen. (Same as: [place] 325/10) trazodone Yes Notes: Memori a 1-06 (Same As: l 23:07: Desyrel) Luis 00 Zofran Yes Notes: Memoria 1-06 (Same as: l 23:07: Zofran) Luis 00 MEDICATION WASTE Product Size: 4 mg Product Wasted: ___ mg Reglan Yes Notes: Memoria 1- (Same as: l 23:07: Reglan) Luis 00 Take 30 min before meals cefepime + Yes Notes: Memor ia Sodium 11-01 (Same As: l Chloride 23:00: Maxipime) Herm natasha 0.9% IV 100 00 mL MEDICATION WASTE Product Size: 1000 mg Product Wasted: ___ mg Vancomycin Yes Notes: Memor ia Pharmacy 11-01 Vancomycin l Dosing 22:49: Pharmacy Luis Consult 04 Dosing Protocol PHARMAC Y USE ONLY Note: This is not a medication order. This is a consultati on order. Dextrose Yes 12.5 gm, Memor ia 50% Syringe 11-01 25 mL, l (D50W) 22:47: Route: Luis 00 IVP, Drug Form: INJ, Dosing Weight 110, kg, PRN, PRN Blood Glucose Results, Start date: 11/01/22 16:47:00 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, Duration: 30 day, Stop date: 12/01/22 16:46:00 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, 0 glucagon Yes 1 mg, Memoria 11-01 Route: IM, l 22:47: Drug form: Luis 00 PDR/INJ, PRN, Dosing Weight 110, kg, PRN Blood Glucose Results, Start date: 11/01/22 16:47:00 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, Duration: 30 day, Stop date: 12/01/22 16:46:00 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, 0 ondansetron Yes Notes: Mike richelle 11-01 (Same as: l 22:47: Zofran) MEDICATION WASTE Product Size: 4 mg Product Wasted: ___ mg melatonin Yes Notes: Memori a 11-01 (Same as: l 22:47: Melatonin) trazodone Yes Notes: Memori a - (Same As: l 22:47: Desyrel) acetaminoph Yes Notes: Do M emoria en 11-01 not exceed l 22:47: 4 gm/day. (Same as: Tylenol) acetaminoph Yes 1 tab, PO, Memoria en-codeine 11-01 BID, PRN l 300 mg-30 20:22: Pain Luis mg oral 00 tablet gabapentin Yes 100 mg = 1 M emoria 100 mg oral 11-01 cap, PO, l capsule 20:21: BID 00 pantoprazol Yes 40 mg = 1 M emoria e 40 mg 11-01 tab, PO, l oral 20:21: Daily [place] enteric 00 coated tablet Albuterol Yes = 2 puff, Mem oria (Eqv-Proven 06 INHALATION l til HFA) 90 20:21: , Q6H, PRN [place] mcg/inh 00 as needed inhalation for aerosol wheezing, 0 Refill(s) lisinopril Yes 20 mg = 1 Me moria 20 mg oral 1-06 tab, PO, l tablet 20:20: Daily hydrALAZINE Yes 100 mg = 1 Memoria 100 mg oral 1-06 tab, PO, l tablet 20:19: TID vancomycin No 2001 mg: Me moria 1-06 infuse l 16:06: over 2.5 hours aspirin 81 2021-10 Yes 81 mg = 1 Me moria mg tablet, 0-05 tab, PO, l enteric 15:47: BID, 0 Refill(s) cefadroxil 2021-10 Yes 500 mg = 1 M emoria 500 mg oral 0-05 cap, PO, l capsule 15:46: Q12H, X 30 day, # 60 cap, 0 Refill(s), Pharmacy: [facility], 175.26, cm, 07/25/22 10:42:00 CDT, Height, 111.818, kg, 07/25/22 10:42:00 CDT, Weight cefadroxil 2021-10 No 500 mg, Mike richelle 0-05 Route: PO, l 11:00: Drug form: CAP, [id number], Dosing Weight 111.818, kg, Start date: 07/31/22 6:00:00 CDT, Duration: 30 day, Stop date: 08/29/22 18:00:00 CDT famotidine 2021-10 No Notes: Memor ia 20 mg oral 0-05 (Same as: l tablet 02:00: Pepcid) Keflex 2021-10 No Notes: Memoria 0-04 Take on l 19:00: empty stomach. (Same As: Keflex) amLODIPine 2021-10 No Notes: Memor ia 0-04 (Same as: l 14:00: Norvasc) doxazosin 2021-10 No Notes: Memori a 0-04 (Same as: l 14:00: Cardura) lisinopril 2021-10 No Notes: Memor ia 0-04 (Same as: l 14:00: Prinivil, Zestril) polyethylen 2021-10 No Notes: Mike richelle e glycol 0-04 Dissolve l 3350 14:00: in 8 oz of Luis 00 water or juice. (Same as: Miralax) carvedilol 2021-10 No Notes: Memor ia 0-04 Give with l 02:00: food. [place] 00 (Same As: Coreg) senna 8.6 2021-10 No Notes: Memori a mg oral 0-04 (Same as: l tablet 02:00: Senokot) Luis 00 busPIRone 2021-10 No Notes: Memori a 0-03 (Same As: l 22:00: BuSpar) Luis 00 hydrALAZINE 2021-10 No Notes: Mike richelle 10 mg oral 0-03 (Same as: l tablet 22:00: Apresoline Cata nn 00 ) May interfere w/enteral feedings. Take With Food aspirin 81 2021-10 No Notes: Do Me moria mg tablet, 0-03 not crush l enteric 22:00: or chew. Kameron n coated 00 (Same As: Ecotrin) docusate 2021-10 No Notes: Memoria 0-03 (Same as: l 22:00: Colace) [place] 00 (Do Not Crush) Lasix 20 mg 2021-10 No Notes: Mike richelle oral tablet 0-03 (Same as: l 21:00: Lasix) May Luis 00 cause GI upset. Give with food or milk. ceFAZolin 2021-10 No Notes: Memori a (SCIP) + 0-03 (Same As: l sterile 21:00: Ancef, Luis water 20 mL 00 Kefzol) MEDICATION WASTE Product Size: 1000 mg Product Wasted: ___ mg Keflex 2021-10 No Notes: Memoria 0-03 Take on l 17:00: empty Luis 00 stomach. (Same As: Keflex) 1/2 NS 2021-10 No 1,000 mL, Memori a 1,000 mL 0-03 Rate: 75 l 15:25: ml/hr, [place] 00 Infuse over: 13.3 hr, Route: IV, Dosing Weight 111.818 kg, Total Volume: 1,000, Start date: 07/29/22 10:25:00 CDT, Duration: 30 day, Stop date: 08/28/22 10:24:00 CDT, BSA: 2.36 m2, 0 acetaminoph 2021-10 No Notes: Max Memoria en 0-03 acetaminop l 15:25: hen 4000 [place] 00 mg/day (4 gm/day). (Same as: Tylenol Extra Strength) tramadol 2021-10 No Notes: Not Mem oria 0-03 to exceed l 15:25: 400mg/day. Luis 00 (Same As: Ultram) oxyCODONE 2021-10 No Notes: Memori a immediate 0-03 (Same as: l release 15:25: Roxicodone natasha ) hydromorpho 2021-10 No Notes: Mike richelle ne 0-03 Same as: l 15:25: Dilaudid tizanidine 2021-10 No Notes: Memor ia 0-03 (Same As: l 15:25: Zanaflex) ondansetron 2021-10 No Notes: Mike richelle 0-03 (Same as: l 15:25: Zofran) MEDICATION WASTE Product Size: 4 mg Product Wasted: ___ mg diphenhydrA 2021-10 No Notes: Mike richelle MINE 0-03 (Same as: l 15:25: Benadryl) 2021-10 No 10 mg, 2 Memoria labetalol 0-03 mL, Route: l 15:18: IVP, Drug form: INJ, Q5Min, Dosing Weight 111.818, kg, PRN Elevated BP, Start date: 07/29/22 10:18:00 CDT, Duration: 5 doses or times, Stop date: Limited # of times, 0 ANES 2021-10 No Notes: Memoria oxyCODONE 5 0-03 (Same as: l mg 15:18: Roxicodone immediate ) release tablet 2021-10 No Notes: Memoria fentaNYL 0-03 (Same as: l 15:18: Sublimaze) Preservati ve free. S 2021-10 No Notes: Memoria HYDROmorpho 0-03 Same as: l ne 15:18: Dilaudid 2021-10 No Notes: Memoria flumazenil 0-03 (Same as: l 15:18: Romazicon) ANES 2021-10 No Notes: Memoria naloxone 0-03 Same as l 15:18: Narcan ANE2021-10 No Notes: SEE Memoria albuterol 0-03 RT l 0.083% 15:18: DOCUMENTAT Cata nn inhalation 00 ION (Same solution as: Proventil) ANES 2021-10 No Notes: Memoria ondansetron 0-03 (Same as: l 15:18: Zofran) MEDICATION WASTE Product Size: 4 mg Product Wasted: ___ mg ANES 2021-10 No Notes: Memoria dexamethaso 0-03 Concentrat l ne 15:18: ion: [place] 4mg/ml tizanidine 2021-10 No Notes: Memor ia 0-03 (Same As: l 15:18: Zanaflex) ondansetron 2021-10 No Route: IV, Memoria (ANES) 0-03 Drug form: l 14:54: INJ, ONCE, Stop date: 07/29/22 9:54:00 CDT phenylephri 2021-10 No Route: IV, Memoria ne (ANES) 0-03 Drug form: l 13:38: INJ, ONCE, Stop date: 07/29/22 8:38:00 CDT dexamethaso 2021-10 No Route: IV, Memoria ne (ANES) 0-03 Drug form: l 13:38: INJ, ONCE, Stop date: 07/29/22 8:38:00 CDT fentaNYL 2021-10 No Route: IV, Mem oria (ANES) 0-03 Drug form: l 13:33: INJ, ONCE, Stop date: 07/29/22 8:33:00 CDT ceFAZolin 2021-10 No Route: IV, Me moria (ANES) 0-03 Drug form: l 13:33: INJ, ONCE, Stop date: 07/29/22 8:33:00 CDT tranexamic 2021-10 No Route: IV, M emoria acid (ANES) 0-03 Drug form: l 13:33: INJ, ONCE, Stop date: 07/29/22 8:33:00 CDT lidocaine 2021-10 No Route: IV, Me moria (ANES) 0-03 Drug form: l 13:12: INJ, ONCE, Stop date: 07/29/22 8:12:00 CDT propofol 2021-10 No Route: IV, Mem oria (ANES) 0-03 Drug form: l 13:12: INJ, ONCE, Stop date: 07/29/22 8:12:00 CDT ropivacaine 2021-10 No Notes: Mike richelle 0.2% 550 mL 0-03 Final l 12:54: concentrat ion: Ropivacain e 0.2% 550 mL Lactated 2021-10 No Route: IV, Mem oria Ringers 0-03 Total l Injection 12:35: Volume: Cata nn IV (ANES) 00 1,000, 1000 mL Start date: 07/29/22 7:35:00 CDT, Stop date: 07/29/22 8:35:00 CDT lidocaine 2021-10 No Notes: Memori a 1% 0-03 Preservati l 12:00: ve free. (Same as: Xylocaine MPF) Lactated 2021-10 No 1,000 mL, Mike richelle Ringers 0-03 Rate: 75 l Injection 11:23: ml/hr, Kameron n IV 1,000 mL 00 Infuse over: 13.3 hr, Route: IV, Dosing Weight 112.727 kg, Total Volume: 1,000, Start date: 07/29/22 6:23:00 CDT, Duration: 30 day, Stop date: 08/28/22 6:22:00 CDT, BSA: 2.37 m2, 0 acetaminoph 2021-10 No Notes: Max Memoria en 0-03 acetaminop l 11:23: hen 4000 mg/day (4 gm/day). (Same as: Tylenol Extra Strength) famotidine 2021-10 No Notes: Memor ia 0-03 (Same as: l 11:23: Pepcid) ceFAZolin + 2021-10 No Notes: Mike richelle sterile 0-03 (Same As: l water 20 mL 10:00: Ancef, Herm natasha 00 Kefzol) MEDICATION WASTE Product Size: 1000 mg Product Wasted: ___ mg vancomycin 2021-10 No Notes: Memor ia 0-03 Same as: l 10:00: Vancocin Luis ropivacaine 2021-10 No Notes: Memoria 0-03 NOT FOR IV l 10:00: use Luis 00 Ropivacain e 5 mg/mL (49.25 mL) Epinephrin e 1 mg/mL (0.5 mL) Clonidine 0.1 mg/mL (0.8 mL) Ketorolac 30 mg/mL (1 mL) Normal Saline 48.45 mL polymyxin B 2021-10 No Notes: Mike richelle sulfate + 0-03 (Same as: l Sodium 10:00: Polymyxin Kameron n Chloride 00 B Sulfate) 0.9% IV 250 mL Flonase Yes = 1 spray, Mike richelle Allergy 07-25 NASAL, l Relief 50 17:03: Daily, 0 Herm natasha mcg/inh 00 Refill(s) nasal spray busPIRone Yes 10 mg = 1 Mem oria 10 mg oral 07-25 tab, PO, l tablet 17:03: BID, 0 Luis 00 Refill(s) doxazosin 8 Yes 8 mg = 1 Me moria mg oral 07-25 tab, PO, l tablet 16:21: Daily, 0 Luis 00 Refill(s) iopamidol 2021- No [id number] 100mL 100 mL, [facility] (ISOVUE 07-02 09-06 Intravenou ity o f 370-500 mL) 18:56: 18:57 s, ONCE, 1 [place] injection 00 :00 dose, On Medica l 100 mL Fri07/02/22 Branch at 1415, Routine NaCl 0.9% Yes 5mL 5 mL, Slow Un etienne (NS) 07-02 IV Push, ity of injection 5 18:29: PRN - SEE [place] mL 45 INSTRUCTIO Medical NS, Branch Starting on Fri07/02/22 at 1329, Until Discontinu ed, 10 mL FENTanyl PF 2021- No 25ug 25 mcg, Un etienne (SUBLIMAZE 06-24 Slow IV ity o f (PF)) 02:30: 02:36 Push, [place] injection 00 :00 ONCE, 1 Medical 25 mcg dose, On Branch 06/23/22 at 2130, STAT cefTRIAXone 2021- No 1000mg 1,000 mg, Univers (ROCEPHIN) 06-24 IV ity of 1,000 mg in 01:30: 02:03 Piggyback, [place] NaCl 0.9% 00 :00 ONCE, 1 Medical (NS) 50 mL dose, On Bran h MINI-BAG [place] 06/23/22 at 2030, Administer over 30 Minutes, 50 mL
Reas on for Anti-Infec tive: Documented Infection< br>Documen alex Infection Site: Urine<br&g t;Duration of Therapy: 7 days cefpodoxime 2021- No [id number] 100mg Take 1 [facility] 100 mg 06-23 tablet by ity of tablet 00:00: 04:59 mouth in [place] 00 :00 the [facility] and 1 tablet in the evening. Do all this for 7 days. cefpodoxime 2021- No [id number] 100mg Take 1 [facility] 100 mg 06-23 tablet by ity of tablet 00:00: 00:00 mouth in [place] 00 :00 [facility] and 1 tablet in the evening. Do all this for 7 days. ketoconazol Yes [id number] Apply to [facility] e (NIZORAL) 5-20 scalp to Inga ege 2 % shampoo 00:00: wash twice of 00 a week for Medicin 4 weeks, e then apply once every 1 to 2 weeks mupirocin 2020-10 Yes [id number] Apply to [facility] (BACTROBAN) 2-15 nostrils Inga ege 2 % 00:00: at bed of ointment 00 time for 2 Medic in weeks. e mupirocin 2020-10 Yes [id number] Apply to [facility] (BACTROBAN) 2-15 nostrils Inga ege 2 % 00:00: at bed of ointment 00 time for 2 Medic in weeks. e Hydralazine No Notes: Mike richelle Hydrochlori 6-23 (Same as: l de 10 MG 22:00: Apresoline Her bui Oral Tablet 00 ) May interfere w/enteral feedings. Take With Food Hydralazine No Notes: Mike richelle Hydrochlori 6-23 (Same as: l de 10 MG 22:00: Apresoline Her bui Oral Tablet 00 ) May interfere w/enteral feedings. Take With Food Oxycodone Yes 2.5 mg = Mike richelle Hydrochlori 6-23 2.5 mL, l de 1 MG/ML 18:26: PO, Q6H, Her bui Oral 00 PRN Pain Solution Score 4-6, 0 Refill(s) Oxycodone Yes 2.5 mg = Mike richelle Hydrochlori 6-23 2.5 mL, l de 1 MG/ML 18:26: PO, Q6H, Her bui Oral 00 PRN Pain Solution Score 4-6, 0 Refill(s) lisinopril Yes 10 mg = 1 Me moria 10 mg oral 6-23 tab, PO, l tablet 18:25: Daily, 0 Luis 00 Refill(s) acetaminoph Yes 1,000 mg = Memoria en 500 mg 6-23 2 tab, PO, l oral 18:25: Q8H, 0 [place] tablet. 00 Refill(s) amLODIPine Yes 10 mg = 1 Me moria 10 mg oral 6-23 tab, PO, l tablet 18:25: Daily, 0 Luis 00 Refill(s) Aspirin 81 Yes 81 mg = 1 Me moria MG Enteric 6-23 tab, PO, l Coated 18:25: Daily, 0 Luis Tablet 00 Refill(s) atorvastati Yes 20 mg = 1 M emoria n 20 mg 6-23 tab, PO, l oral tablet 18:25: Bedtime, 0 Luis 00 Refill(s) carvedilol Yes 12.5 mg = Me moria 12.5 mg 6-23 1 tab, PO, l oral tablet 18:25: Q12H, 0 Her bui 00 Refill(s) gabapentin Yes 100 mg = 1 M emoria 100 MG Oral 6-23 cap, PO, l Capsule 18:25: Bedtime, 0 Herm natasha 00 Refill(s) heparin Yes SUB-Q, Memoria 5000 6-23 Q12H, 0 l units/0.5 18:25: Refill(s) Her bui mL 00 injectable solution Hydralazine Yes 10 mg = 1 M emoria Hydrochlori 6-23 tab, PO, l de 10 MG 18:25: TID, 0 Luis Oral Tablet 00 Refill(s) Lidocaine Yes 1 patch, Mike richelle 0.04 MG/MG 6-23 TOP, l Medicated 18:25: Daily, 0 Herm natasha Patch 00 Refill(s) melatonin 3 Yes 3 mg = 1 Me moria mg oral 6-23 tab, PO, l tablet 18:25: Bedtime, Luis 00 PRN Insomnia, 0 Refill(s) POLYETHYLEN Yes 17 gm, PO, Memoria E GLYCOL 6-23 Daily, 0 l 3350 18:25: Refill(s) [place] 00 sennosides, Yes 17.2 mg = M emoria LONG TERM 8.6 MG 6-23 2 tab, PO, l Oral Tablet 18:25: Bedtime, 0 Luis 00 Refill(s) lisinopril Yes 10 mg = 1 Me moria 10 mg oral 6-23 tab, PO, l tablet 18:25: Daily, 0 [place] 00 Refill(s) Aspirin 81 Yes 81 mg = 1 Me moria MG Enteric 6-23 tab, PO, l Coated 18:25: Daily, 0 Luis Tablet 00 Refill(s) gabapentin Yes 100 mg = 1 M emoria 100 MG Oral 6-23 cap, PO, l Capsule 18:25: Bedtime, 0 Herm natasha 00 Refill(s) heparin Yes SUB-Q, Memoria 5000 6-23 Q12H, 0 l units/0.5 18:25: Refill(s) Her bui mL 00 injectable solution Hydralazine Yes 10 mg = 1 M emoria Hydrochlori 6-23 tab, PO, l de 10 MG 18:25: TID, 0 Luis Oral Tablet 00 Refill(s) Lidocaine Yes 1 patch, Mike richelle 0.04 MG/MG 6-23 TOP, l Medicated 18:25: Daily, 0 Herm natasha Patch 00 Refill(s) melatonin 3 Yes 3 mg = 1 Me moria mg oral 6-23 tab, PO, l tablet 18:25: Bedtime, [place] 00 PRN Insomnia, 0 Refill(s) POLYETHYLEN Yes 17 gm, PO, Memoria E GLYCOL 6-23 Daily, 0 l 3350 18:25: Refill(s) [place] 00 sennosides, Yes 17.2 mg = M emoria LONG TERM 8.6 MG 6-23 2 tab, PO, l Oral Tablet 18:25: Bedtime, 0 Luis 00 Refill(s) acetaminoph Yes 1,000 mg = Memoria en 500 mg 6-23 2 tab, PO, l oral 18:25: Q8H, PRN Luis tablet. 00 pain, 0 Refill(s) amLODIPine Yes 10 mg = 1 Me moria 10 mg oral 6-23 tab, PO, l tablet 18:25: Daily, 0 [place] 00 Refill(s) atorvastati Yes 20 mg = 1 M emoria n 20 mg 6-23 tab, PO, l oral tablet 18:25: Bedtime, 0 [place] 00 Refill(s) carvedilol Yes 12.5 mg = Me moria 12.5 mg 6-23 1 tab, PO, l oral tablet 18:25: Q12H, 0 Her bui 00 Refill(s) senna 8.6 Yes 17.2 mg = Mem oria mg oral 6-23 2 tab, PO, l tablet 18:25: Bedtime, 0 Cata nn 00 Refill(s) Hydralazine No Notes: Mike richelle Hydrochlori 6-23 (Same as: l de 25 MG 14:00: Apresoline Her bui Oral Tablet 00 ) May interfere w/enteral feedings Take With Food. Hydralazine No Notes: Mike richelle Hydrochlori 6-23 (Same as: l de 25 MG 14:00: Apresoline Her bui Oral Tablet 00 ) May interfere w/enteral feedings Take With Food. Furosemide No Notes: Memor ia 20 MG Oral 6-21 (Same as: l Tablet 14:00: Lasix) May Cata nn [Lasix] 00 cause GI upset. Give with food or milk. Furosemide No Notes: Memor ia 20 MG Oral 6-21 (Same as: l Tablet 14:00: Lasix) May Cata nn [Lasix] 00 cause GI upset. Give with food or milk. Amlodipine No Notes: Memor ia 6-20 (Same as: l 14:00: Norvasc) Amlodipine No Notes: Memor ia 6-20 (Same as: l 14:00: Norvasc) Lisinopril No Notes: Memor ia 6-20 (Same as: l 13:27: Prinivil, [place] 00 Zestril) Lisinopril No Notes: Memor ia 6-20 (Same as: l 13:27: Prinivil, [place] 00 Zestril) gabapentin No Notes: Memor ia 6-20 (Same as: l 02:00: Neurontin) sennosides, No Notes: Mike richelle LONG TERM 6-20 (Same as: l 02:00: Senokot) gabapentin No Notes: Memor ia 6-20 (Same as: l 02:00: Neurontin) sennosides, No Notes: Mike richelle LONG TERM 6-20 (Same as: l 02:00: Senokot) Aspirin 81 No 81 mg, 1 Mem oria MG Enteric 6-19 tab, l Coated 16:56: Route: PO, Cata nn Tablet 00 Drug form: ECTAB, Daily, Dosing Weight 95.455, kg, Priority: NOW, Start date: 04/14/21 11:56:00 CDT, Duration: 30 day, Stop date: 05/14/21 9:00:00 CDT, 0 Aspirin 81 No 81 mg, 1 Mem oria MG Enteric 6-19 tab, l Coated 16:56: Route: PO, Cata nn Tablet 00 Drug form: ECTAB, Daily, Dosing Weight 95.455, kg, Priority: NOW, Start date: 04/14/21 11:56:00 CDT, Duration: 30 day, Stop date: 05/14/21 9:00:00 CDT, 0 heparin 0 No 5,000 Memoria 6-19 unit, l 16:00: Route: [place] 00 SUB-Q, Q8H, Dosing Weight 95.455, kg, Start date: 04/14/21 11:00:00 CDT, Duration: 30 day, Stop date: 05/14/21 8:00:00 CDT heparin No 5,000 Memoria 6-19 unit, l 16:00: Route: Luis 00 SUB-Q, Q8H, Dosing Weight 95.455, kg, Start date: 04/14/21 11:00:00 CDT, Duration: 30 day, Stop date: 05/14/21 8:00:00 CDT POLYETHYLEN No Notes: Mike richelle E GLYCOL 6-19 Dissolve l 3350 14:00: in 8 oz of [place] 00 water or juice. (Same as: Miralax) POLYETHYLEN No Notes: Mike richelle E GLYCOL 6-19 Dissolve l 3350 14:00: in 8 oz of [place] 00 water or juice. (Same as: Miralax) Lidocaine No 1 patch, Mike richelle 0.04 MG/MG -19 Route: l Medicated 12:53: TOP, [place] Patch 00 Dosing Weight 95.455, kg, QAM, NOW, Start date: 04/14/21 7:53:00 CDT, Duration: 30 day, Stop date: 05/13/21 9:00:00 CDT Acetaminoph No Notes: Max Memoria en 6-19 acetaminop l 12:53: hen 4000 [place] 00 mg/day (4 gm/day). (Same as: Tylenol Extra Strength) Oxycodone No Notes: Memori a Hydrochlori 6-19 (Same as: l de 1 MG/ML 12:53: 'Roxicodon H ermann Oral 00 e) Solution Ondansetron No Notes: Mike richelle 6-19 (Same as: l 12:53: Zofran) Luis 00 MEDICATION WASTE Product Size: 4 mg Product Wasted: _0__ mg Melatonin No Notes: Memori a 6-19 (Same as: l 12:53: Melatonin) [place] Lidocaine No 1 patch, Mike richelle 0.04 MG/MG 04-14 Route: l Medicated 12:53: TOP, [place] Patch 00 Dosing Weight 95.455, kg, QAM, NOW, Start date: 04/14/21 7:53:00 CDT, Duration: 30 day, Stop date: 05/13/21 9:00:00 CDT Acetaminoph No Notes: Max Memoria en - acetaminop l 12:53: hen 4000 [place] 00 mg/day (4 gm/day). (Same as: Tylenol Extra Strength) Oxycodone No Notes: Memori a Hydrochlori -19 (Same as: l de 1 MG/ML 12:53: 'Roxicodon H ermann Oral 00 e) Solution Ondansetron No Notes: Mike richelle 6-19 (Same as: l 12:53: Zofran) MEDICATION WASTE Product Size: 4 mg Product Wasted: _0__ mg Melatonin No Notes: Memori a 6-19 (Same as: l 12:53: Melatonin) [place] Ancef No Notes: Memoria 6-18 (Same as l 21:30: Ancef) [place] Ancef No Notes: Memoria 6-18 (Same as l 21:30: Ancef) [place] 00 sugammadex No Route: IV, M emoria (ANES) 6-18 Drug form: l 17:13: SOLN, [place] 00 ONCE, Stop date: 04/13/21 12:13:00 CDT sugammadex No Route: IV, M emoria (ANES) 6-18 Drug form: l 17:13: SOLN, [place] 00 ONCE, Stop date: 04/13/21 12:13:00 CDT ondansetron 2020-0 No Route: IV, Memoria (ANES) 6-18 Drug form: l 16:28: INJ, ONCE, Stop date: 04/13/21 11:28:00 CDT ondansetron 2020-0 No Route: IV, Memoria (ANES) 6-18 Drug form: l 16:28: INJ, ONCE, Stop date: 04/13/21 11:28:00 CDT hydromorpho 2020-0 No Route: IV, Memoria ne (ANES) 6-18 Drug form: l 16:23: INJ, ONCE, Stop date: 04/13/21 11:23:00 CDT hydromorpho 2020-0 No Route: IV, Memoria ne (ANES) 6-18 Drug form: l 16:23: INJ, ONCE, Stop date: 04/13/21 11:23:00 CDT acetaminoph 2020-0 No Route: IV, Memoria en (ANES) 6-18 Drug form: l 16:03: INJ, ONCE, Stop date: 04/13/21 11:03:00 CDT acetaminoph 2020-0 No Route: IV, Memoria en (ANES) -18 Drug form: l 16:03: INJ, ONCE, Stop date: 04/13/21 11:03:00 CDT Hydralazine 2020-0 No 10 mg, Mike richelle 18 Route: l 15:32: IVP, [place] 00 Q20Min, Dosing Weight 95.455, kg, PRN Elevated BP, Start date: 04/13/21 10:32:00 CDT, Duration: 2 doses or times, Stop date: Limited # of times Metoprolol 0 No 1 mg, Memori a 04-13 Route: l 15:32: IVP, Luis 00 Q5Min, Dosing Weight 95.455, kg, PRN Other -See Comment, Start date: 04/13/21 10:32:00 CDT, Duration: 5 doses or times, Stop date: Limited # of times Oxycodone 2020-0 No 5 mg, Memoria Hydrochlori -18 Route: PO, l de 5 MG 15:32: Drug form: Herm natasha Oral Tablet 00 TAB, Q4H, Dosing Weight 95.455, kg, PRN Pain Score 4-6, Start date: 04/13/21 10:32:00 CDT, Duration: 30 day, Stop date: 05/13/21 10:31:00 CDT Hydromorpho 2021-0 No 0.5 mg, Mem oria ne 18 Route: l 15:32: IVP, Luis 00 Q5Min, Dosing Weight 95.455, kg, PRN Pain Score 7-10, Start date: 04/13/21 10:32:00 CDT, Duration: 4 doses or times, Stop date: Limited # of times Flumazenil 2020-0 No 0.2 mg, Mike richelle 18 Route: l 15:32: IVP, PRN, [place] 00 Dosing Weight 95.455, kg, PRN Benzodiaze pine Reversal, Initial dose, Start date: 04/13/21 10:32:00 CDT, Duration: 30 day, Stop date: 05/13/21 10:31:00 CDT Naloxone 1-0 No 0.4 mg, Memori a 18 Route: l 15:32: IVP, Luis 00 Q2MIN, Dosing Weight 95.455, kg, PRN Narcotic Reversal, Start date: 04/13/21 10:32:00 CDT, Duration: 8 doses or times, Stop date: Limited # of times Meperidine 2020-0 No 12.5 mg, Mem oria 18 Route: l 15:32: IVP, Luis 00 Q30Min, Dosing Weight 95.455, kg, PRN Other -See Comment, For shivering, Start date: 04/13/21 10:32:00 CDT, Duration: 2 doses or times, Stop date: Limited # of times Ondansetron 1-0 No 4 mg, Memor ia 18 Route: l 15:32: IVP, ONCE, [place] 00 Dosing Weight 95.455, kg, PRN Nausea & Vomiting, Start date: 04/13/21 10:32:00 CDT Hydralazine 1-0 No 10 mg, Mike richelle 6-18 Route: l 15:32: IVP, [place] 00 Q20Min, Dosing Weight 95.455, kg, PRN Elevated BP, Start date: 04/13/21 10:32:00 CDT, Duration: 2 doses or times, Stop date: Limited # of times Metoprolol 2020-0 No 1 mg, Memori a 04-13 Route: l 15:32: IVP, Luis 00 Q5Min, Dosing Weight 95.455, kg, PRN Other -See Comment, Start date: 04/13/21 10:32:00 CDT, Duration: 5 doses or times, Stop date: Limited # of times Oxycodone 2020-0 No 5 mg, Memoria Hydrochlori 04-13 Route: PO, l de 5 MG 15:32: Drug form: Herm natasha Oral Tablet 00 TAB, Q4H, Dosing Weight 95.455, kg, PRN Pain Score 4-6, Start date: 04/13/21 10:32:00 CDT, Duration: 30 day, Stop date: 05/13/21 10:31:00 CDT Hydromorpho 2020-0 No 0.5 mg, Mem oria ne 04-13 Route: l 15:32: IVP, Luis 00 Q5Min, Dosing Weight 95.455, kg, PRN Pain Score 7-10, Start date: 04/13/21 10:32:00 CDT, Duration: 4 doses or times, Stop date: Limited # of times Flumazenil 0 No 0.2 mg, Mike richelle 04-13 Route: l 15:32: IVP, PRN, Luis 00 Dosing Weight 95.455, kg, PRN Benzodiaze pine Reversal, Initial dose, Start date: 04/13/21 10:32:00 CDT, Duration: 30 day, Stop date: 05/13/21 10:31:00 CDT Naloxone 2020-0 No 0.4 mg, Memori a 04-13 Route: l 15:32: IVP, [place] 00 Q2MIN, Dosing Weight 95.455, kg, PRN Narcotic Reversal, Start date: 04/13/21 10:32:00 CDT, Duration: 8 doses or times, Stop date: Limited # of times Meperidine 2020-0 No 12.5 mg, Mem oria 6-18 Route: l 15:32: IVP, Q30Min, Dosing Weight 95.455, kg, PRN Other -See Comment, For shivering, Start date: 04/13/21 10:32:00 CDT, Duration: 2 doses or times, Stop date: Limited # of times Ondansetron 2020-0 No 4 mg, Memor ia 18 Route: l 15:32: IVP, ONCE, Dosing Weight 95.455, kg, PRN Nausea & Vomiting, Start date: 04/13/21 10:32:00 CDT rocuronium 2020-0 No Route: IV, M emoria (ANES) 6-18 Drug form: l 14:52: INJ, ONCE, Stop date: 04/13/21 9:52:00 CDT ePHEDrine 2020-0 No Route: IV, Me moria (ANES) 6-18 Drug form: l 14:52: INJ, ONCE, Stop date: 04/13/21 9:52:00 CDT rocuronium 2020-0 No Route: IV, M emoria (ANES) 6-18 Drug form: l 14:52: INJ, ONCE, Stop date: 04/13/21 9:52:00 CDT ePHEDrine 2020-0 No Route: IV, Me moria (ANES) 6-18 Drug form: l 14:52: INJ, ONCE, Stop date: 04/13/21 9:52:00 CDT propofol 2020-0 No Route: IV, Mem oria (ANES) 6-18 Drug form: l 14:46: INJ, ONCE, Stop date: 04/13/21 9:46:00 CDT lidocaine 2020-0 No Route: IV, Me moria (ANES) 6-18 Drug form: l 14:46: INJ, ONCE, Stop date: 04/13/21 9:46:00 CDT lidocaine 2020-0 No Route: IV, Me moria (ANES) 6-18 Drug form: l 14:46: INJ, ONCE, Stop date: 04/13/21 9:46:00 CDT propofol 2021-0 No Route: IV, Mem oria (ANES) 6-18 Drug form: l 14:46: INJ, ONCE, Luis 00 Stop date: 04/13/21 9:46:00 CDT fentaNYL 0 No Route: IV, Mem oria (ANES) 6-18 Drug form: l 14:24: INJ, ONCE, Stop date: 04/13/21 9:24:00 CDT fentaNYL 0 No Route: IV, Mem oria (ANES) 6-18 Drug form: l 14:24: INJ, ONCE, Luis 00 Stop date: 04/13/21 9:24:00 CDT albuterol 0 No Route: Memori a (ANES) 6-18 INHALATION l 14:20: , Drug form: AERO/A, ONCE, Stop date: 04/13/21 9:20:00 CDT albuterol 0 No Route: Memori a (ANES) 6-18 INHALATION l 14:20: , Drug form: AERO/A, ONCE, Stop date: 04/13/21 9:20:00 CDT ePHEDrine 0 No Route: IV, Me moria (ANES) 6-18 Drug form: l 14:14: INJ, ONCE, Stop date: 04/13/21 9:14:00 CDT calcium 0 No Route: IV, Mike richelle chloride 6-18 Drug form: l (ANES) 14:14: INJ, ONCE, Cata Stop date: 04/13/21 9:14:00 CDT EPINEPHrine 2020-0 No Route: IV, Memoria (ANES) 6-18 Drug form: l 14:14: INJ, ONCE, Luis 00 Stop date: 04/13/21 9:14:00 CDT ePHEDrine 2020-0 No Route: IV, Me moria (ANES) 6-18 Drug form: l 14:14: INJ, ONCE, Luis 00 Stop date: 04/13/21 9:14:00 CDT calcium 0 No Route: IV, Mike richelle chloride 6-18 Drug form: l (ANES) 14:14: INJ, ONCE, Cata nn Stop date: 04/13/21 9:14:00 CDT EPINEPHrine 2020-0 No Route: IV, Memoria (ANES) 6-18 Drug form: l 14:14: INJ, ONCE, Stop date: 04/13/21 9:14:00 CDT dexamethaso 2020-0 No Route: IV, Memoria ne (ANES) 6-18 Drug form: l 13:59: INJ, ONCE, Stop date: 04/13/21 8:59:00 CDT ceFAZolin 2020-0 No Route: IV, Me moria (ANES) 6-18 Drug form: l 13:59: INJ, ONCE, Stop date: 04/13/21 8:59:00 CDT dexamethaso 2020-0 No Route: IV, Memoria ne (ANES) 6-18 Drug form: l 13:59: INJ, ONCE, Stop date: 04/13/21 8:59:00 CDT ceFAZolin 2020-0 No Route: IV, Me moria (ANES) 6-18 Drug form: l 13:59: INJ, ONCE, Stop date: 04/13/21 8:59:00 CDT phenylephri 2020-0 No Route: IV, Memoria ne (ANES) 6-18 Drug form: l 13:44: INJ, ONCE, Stop date: 04/13/21 8:44:00 CDT phenylephri 2020-0 No Route: IV, Memoria ne (ANES) 6-18 Drug form: l 13:44: INJ, ONCE, Stop date: 04/13/21 8:44:00 CDT Isolyte S 2020-0 No Route: IV, Me moria PH 7.4 6-18 Total l (ANES) 1000 12:55: Volume: Her bui mL 00 1,000, Start date: 04/13/21 7:55:00 CDT, Stop date: 04/13/21 8:55:00 CDT Isolyte S 2020-0 No Route: IV, Me moria PH 7.4 6-18 Total l (ANES) 1000 12:55: Volume: Her bui mL 00 1,000, Start date: 04/13/21 7:55:00 CDT, Stop date: 04/13/21 8:55:00 CDT Coreg No Notes: Memoria 6-18 Give with l 02:00: food. Luis 00 (Same As: Coreg) Coreg No Notes: Memoria 6-18 Give with l 02:00: food. [place] 00 (Same As: Coreg) Sodium No 1,000 mL, Memori a Chloride 6-18 Rate: 75 l 0.9% IV 01:11: ml/hr, Luis 1,000 mL 00 Infuse over: 13.3 hr, Route: IV, Dosing Weight 95.455 kg, Total Volume: 1,000, Start date: 04/12/21 20:11:00 CDT, Duration: 30 day, Stop date: 05/12/21 20:10:00 CDT, BSA: 2.22 m2, 0 Sodium No 1,000 mL, Memori a Chloride 6-18 Rate: 75 l 0.9% IV 01:11: ml/hr, [place] 1,000 mL 00 Infuse over: 13.3 hr, Route: IV, Dosing Weight 95.455 kg, Total Volume: 1,000, Start date: 04/12/21 20:11:00 CDT, Duration: 30 day, Stop date: 05/12/21 20:10:00 CDT, BSA: 2.22 m2, 0 Hydralazine No Notes: Mike richelle 6-17 (Same as: l 13:32: Apresoline ) Hydralazine No Notes: Mike richelle 6-17 (Same as: l 13:32: Apresoline ) Thiamine No Notes: Memoria 6-17 (Same As: l 13:29: Vitamin [place] 00 B1) Thiamine No Notes: Memoria 6-17 (Same As: l 13:29: Vitamin [place] 00 B1) atorvastati No Notes: Mike richelle n 6-16 (Same As: l 02:00: Lipitor) atorvastati No Notes: Mike richelle n 6-16 (Same As: l 02:00: Lipitor) Adenosine No 80.1822 Memor ia 6-15 mg, Route: l 20:28: IVP, ONCE, Dosing Weight 95.455, kg, Priority: Routine, Start date: 04/10/21 15:28:00 CDT, Stop date: 04/10/21 15:28:00 CDT Adenosine No 80.1822 Memor ia 6-15 mg, Route: l 20:28: IVP, ONCE, Dosing Weight 95.455, kg, Priority: Routine, Start date: 04/10/21 15:28:00 CDT, Stop date: 04/10/21 15:28:00 CDT Coreg No Notes: Memoria 6-15 Give with l 17:27: food. (Same As: Coreg) Coreg No Notes: Memoria 6-15 Give with l 17:27: food. (Same As: Coreg) potassium No 20 mEq, 1 Mem oria chloride 20 6-15 tab, l mEq oral 14:00: Route: PO, Her bui tablet, 00 Drug form: extended ERTAB, release ONCE, (KCL) Dosing Weight 95.455, kg, Start date: 04/10/21 9:00:00 CDT, Stop date: 04/10/21 9:00:00 CDT, 0 Norvasc No Notes: Memoria 6-15 (Same as: l 14:00: Norvasc) potassium No 20 mEq, 1 Mem oria chloride 20 6-15 tab, l mEq oral 14:00: Route: PO, Her bui tablet, 00 Drug form: extended ERTAB, release ONCE, (KCL) Dosing Weight 95.455, kg, Start date: 04/10/21 9:00:00 CDT, Stop date: 04/10/21 9:00:00 CDT, 0 Norvasc No Notes: Memoria 6-15 (Same as: l 14:00: Norvasc) Norvasc No Notes: Memoria 6-14 (Same as: l 22:30: Norvasc) Norvasc No Notes: Memoria 6-14 (Same as: l 22:30: Norvasc) [place] 00 Ativan No 0.5 mg, Memoria 6-14 Route: l 15:17: IVP, Drug [place] 00 form: INJ, ONCE, Dosing Weight 95.455, kg, Start date: 04/09/21 10:17:00 CDT, Stop date: 04/09/21 10:17:00 CDT Ativan No 0.5 mg, Memoria 6-14 Route: l 15:17: IVP, Drug [place] 00 form: INJ, ONCE, Dosing Weight 95.455, kg, Start date: 04/09/21 10:17:00 CDT, Stop date: 04/09/21 10:17:00 CDT heparin No Notes: Memoria sodium, 6-14 porcine l porcine 14:00: heparin [place] 2500 UNT/ML 00 Injectable Solution heparin No Notes: Memoria sodium, 6-14 porcine l porcine 14:00: heparin [place] 2500 UNT/ML 00 Injectable Solution Lisinopril No Notes: Memor ia 6-13 (Same as: l 14:00: Prinivil, [place] 00 Zestril) potassium No Notes: Memori a chloride 20 6-13 (Same as: l mEq oral 14:00: K-Dur 20) Herm natasha tablet, 00 "Do Not extended Crush" release Give with (KCL) food and full glass of water For patients unable to swallow tablet, dissolve in one half glass of water. Allow about 2 minutes for the tablets to disintegra te. Stir before giving to prepare slurry and administer . Please exclude Patient s with feeding tube less than 14 [place] (Dobhoff, J-tube etc) and pediatric and patients. Lisinopril No Notes: Memor ia 6-13 (Same as: l 14:00: Prinivil, [place] 00 Zestril) potassium No Notes: Memori a chloride 20 6-13 (Same as: l mEq oral 14:00: K-Dur 20) Herm natasha tablet, 00 "Do Not extended Crush" release Give with (KCL) food and full glass of water For patients unable to swallow tablet, dissolve in one half glass of water. Allow about 2 minutes for the tablets to disintegra te. Stir before giving to prepare slurry and administer . Please exclude Patient s with feeding tube less than 14 [place] (Dobhoff, J-tube etc) and pediatric and patients. Hydralazine No Notes: Mike richelle 6-13 (Same as: l 02:44: Apresoline [place] 00 ) Push over 5 minutes Hydralazine No Notes: Mike richelle 6-13 (Same as: l 02:44: Apresoline [place] 00 ) Push over 5 minutes remove No Notes: Memoria patch 6-13 Remove l 02:00: patch 12 [place] 00 hours after applicatio n each day. remove No Notes: Memoria patch 6-13 Remove l 02:00: patch 12 [place] 00 hours after applicatio n each day. Lidocaine No 1 patch, Mike richelle 0.04 MG/MG - Route: l Medicated 00:00: TOP, Luis Patch 00 Dosing Weight 95.455, kg, Q24H, Start date: 04/07/21 19:00:00 CDT, Duration: 30 day, Stop date: 05/06/21 19:00:00 CDT Acetaminoph No Notes: Do M emoria en 6-13 not exceed l 00:00: 4 gm/day. Luis 00 (Same as: Tylenol) Lidocaine No 1 patch, Mike richelle 0.04 MG/MG - Route: l Medicated 00:00: TOP, Luis Patch 00 Dosing Weight 95.455, kg, Q24H, Start date: 04/07/21 19:00:00 CDT, Duration: 30 day, Stop date: 05/06/21 19:00:00 CDT Acetaminoph No Notes: Do M emoria en 6-13 not exceed l 00:00: 4 gm/day. Luis 00 (Same as: Tylenol) Oxycodone No Notes: Memori a Hydrochlori 6-12 (Same as: l de 1 MG/ML 23:39: 'Roxicodon H ermann Oral 00 e) Solution Oxycodone No Notes: Memori a Hydrochlori 6-12 (Same as: l de 1 MG/ML 23:39: 'Roxicodon H ermann Oral 00 e) Solution Morphine No Notes: Memoria 6-12 (Same l 23:38: as:MORPhin [place] 00 e Sulfate) Morphine No Notes: Memoria 6-12 (Same l 23:38: as:MORPhin [place] 00 e Sulfate) metoprolol No Notes: Memor ia tartrate -12 (Same as: l 22:00: Lopressor) [place] 00 metoprolol No Notes: Memor ia tartrate 6-12 (Same as: l 22:00: Lopressor) Labetalol No 170, 0 Memori a 6-12 l 21:50: [place] 00 Labetalol No 170, 0 Memori a 6-12 l 21:50: Luis 00 metoprolol No 50 mg = 1 Me moria tartrate 50 6-12 tab, PO, l mg oral 18:04: BID, 0 Luis tablet 00 Refill(s) metoprolol No 50 mg = 1 Me moria tartrate 50 6-12 tab, PO, l mg oral 18:04: BID, 0 [place] tablet 00 Refill(s) lisinopril No 20 mg = 1 Me moria 20 mg oral 6-12 tab, PO, l tablet 18:03: Daily, 0 Luis 00 Refill(s) Microencaps No 20 mEq = 1 Memoria ulated 6-12 tab, PO, l Potassium 18:03: Daily, 0 Herm natasha Chloride 20 00 Refill(s) MEQ Extended Release Oral Tablet [Klor-Con] Furosemide Yes 20 mg = 1 Me moria 20 MG Oral 6-12 tab, PO, l Tablet 18:03: Daily, 0 Luis [Lasix] 00 Refill(s) lisinopril No 20 mg = 1 Me moria 20 mg oral 6-12 tab, PO, l tablet 18:03: Daily, 0 [place] 00 Refill(s) Microencaps No 20 mEq = 1 Memoria ulated 6-12 tab, PO, l Potassium 18:03: Daily, 0 Herm natasha Chloride 20 00 Refill(s) MEQ Extended Release Oral Tablet [Klor-Con] Furosemide Yes 20 mg = 1 Me moria 20 MG Oral 6-12 tab, PO, l Tablet 18:03: Daily, 0 [place] [Lasix] 00 Refill(s) Flexeril 5 No 5 mg = 1 Mem oria mg oral 6-12 tab, PO, l tablet 18:02: TID, 0 [place] 00 Refill(s) spironolact No 12.5 mg = M emoria one 25 mg 6-12 0.5 tab, l oral tablet 18:02: PO, Daily, Luis 00 0 Refill(s) Flexeril 5 No 5 mg = 1 Mem oria mg oral 6-12 tab, PO, l tablet 18:02: TID, 0 [place] 00 Refill(s) spironolact No 12.5 mg = M emoria one 25 mg 6-12 0.5 tab, l oral tablet 18:02: PO, Daily, [place] 00 0 Refill(s) diclofenac No 75 mg = 1 Me moria sodium 75 6-12 tab, PO, l mg oral 17:59: BID, # 180 Herm natasha enteric 00 tab, 0 coated, Refill(s) delayed-rel ease tablet diclofenac No 75 mg = 1 Me moria sodium 75 6-12 tab, PO, l mg oral 17:59: BID, # 180 Herm natasha enteric 00 tab, 0 coated, Refill(s) delayed-rel ease tablet D50W No 12.5 gm, Memoria (bolus) IV 6-12 25 mL, l 17:39: Route: IVP, Drug Form: INJ, Dosing Weight 122.955, kg, PRN, PRN Blood Glucose Results, Start date: 04/07/21 12:39:00 CDT, Duration: 30 day, Stop date: 05/07/21 12:38:00 CDT, 0 Glucagon 2020- No 1 mg, Memoria 612 Route: IM, l 17:39: Drug form: PDR/INJ, PRN, Dosing Weight 122.955, kg, PRN Blood Glucose Results, Start date: 04/07/21 12:39:00 CDT, Duration: 30 day, Stop date: 05/07/21 12:38:00 CDT, 0 D50W 2020-0 No 12.5 gm, Memoria (bolus) IV - 25 mL, l 17:39: Route: [place] 00 IVP, Drug Form: INJ, Dosing Weight 122.955, kg, PRN, PRN Blood Glucose Results, Start date: 04/07/21 12:39:00 CDT, Duration: 30 day, Stop date: 05/07/21 12:38:00 CDT, 0 Glucagon 2020-0 No 1 mg, Memoria 04-07 Route: IM, l 17:39: Drug form: [place] 00 PDR/INJ, PRN, Dosing Weight 122.955, kg, PRN Blood Glucose Results, Start date: 04/07/21 12:39:00 CDT, Duration: 30 day, Stop date: 05/07/21 12:38:00 CDT, 0 Lasix 2020-0 No Notes: Memoria - (Same as: l 17:37: Lasix) [place] 00 MEDICATION WASTE Product Size: 40 mg Product Wasted: ___ mg Lasix 2020-0 No Notes: Memoria -12 (Same as: l 17:37: Lasix) [place] 00 MEDICATION WASTE Product Size: 40 mg Product Wasted: ___ mg Lasix 2020-0 No 40 mg, Memoria 04-07 Route: PO, l 17:35: Drug form: [place] 00 TAB, Q12H, Dosing Weight 122.955, kg, Priority: STAT, Start date: 04/07/21 12:35:00 CDT, Duration: 30 day, Stop date: 05/07/21 9:00:00 CDT Lasix 2020-0 No 40 mg, Memoria -12 Route: PO, l 17:35: Drug form: [place] 00 TAB, Q12H, Dosing Weight 122.955, kg, Priority: STAT, Start date: 04/07/21 12:35:00 CDT, Duration: 30 day, Stop date: 05/07/21 9:00:00 CDT Labetalol 2021-0 No 20 mg, 4 Mike richelle 6-12 mL, Route: l 17:33: IVP, Drug [place] 00 form: INJ, ONCE, Dosing Weight 122.955, kg, Priority: STAT, Start date: 04/07/21 12:33:00 CDT, Stop date: 04/07/21 12:33:00 CDT, 0 Labetalol 2021-0 No 20 mg, 4 Mike richelle 6-12 mL, Route: l 17:33: IVP, Drug form: INJ, ONCE, Dosing Weight 122.955, kg, Priority: STAT, Start date: 04/07/21 12:33:00 CDT, Stop date: 04/07/21 12:33:00 CDT, 0 Morphine 2021-0 No 4 mg, Memoria 6-12 Route: l 15:25: IVP, ONCE, [place] 00 Dosing Weight 122.955, kg, Priority: STAT, Start date: 04/07/21 10:25:00 CDT, Stop date: 04/07/21 10:25:00 CDT Morphine 2021-0 No 4 mg, Memoria 6-12 Route: l 15:25: IVP, ONCE, [place] 00 Dosing Weight 122.955, kg, Priority: STAT, Start date: 04/07/21 10:25:00 CDT, Stop date: 04/07/21 10:25:00 CDT Lidocaine 2020-0 No Notes: Memori a 0.04 MG/MG 6-12 Apply only l Medicated 14:00: once for Herm natasha Patch 00 up to 12 hours in a 24-hour period (12 hours on and 12 hours off). (Same as: Aspercreme Lidocaine Patch) "Remove old patch before applicatio n of new patch" Lidocaine 2020-0 No Notes: Memori a 0.04 MG/MG 6-12 Apply only l Medicated 14:00: once for Herm natasha Patch 00 up to 12 hours in a 24-hour period (12 hours on and 12 hours off). (Same as: Aspercreme Lidocaine Patch) "Remove old patch before applicatio n of new patch" Iohexol 2020-0 No 80 mL, Memoria 6-12 Route: l 09:40: IVP, Drug [place] 00 Form: SOLN, Dosing Weight 122.955, kg, ONCALL, STAT, Start date: 04/07/21 4:40:00 CDT, Duration: 1 doses or times, Dose = 2.2ml/kg, Max dose = 100ml -- "To be infused by Radiology Staff ONLY" Iohexol 2020-0 No 80 mL, Memoria 04-07 Route: l 09:40: IVP, Drug [place] 00 Form: SOLN, Dosing Weight 122.955, kg, ONCALL, STAT, Start date: 04/07/21 4:40:00 CDT, Duration: 1 doses or times, Dose = 2.2ml/kg, Max dose = 100ml -- "To be infused by Radiology Staff ONLY" Ativan 1-0 No 1 mg, Memoria 04-07 Route: l 04:25: IVP, Drug [place] 00 form: INJ, ONCE, Dosing Weight 122.955, kg, Priority: STAT, Start date: 04/06/21 23:25:00 CDT, Stop date: 04/06/21 23:25:00 CDT Ativan 1-0 No 1 mg, Memoria 04-07 Route: l 04:25: IVP, Drug [place] 00 form: INJ, ONCE, Dosing Weight 122.955, kg, Priority: STAT, Start date: 04/06/21 23:25:00 CDT, Stop date: 04/06/21 23:25:00 CDT Morphine 1-0 No 4 mg, Memoria 04-07 Route: l 02:31: IVP, ONCE, [place] 00 Dosing Weight 122.955, kg, Start date: 04/06/21 21:31:00 CDT, Stop date: 04/06/21 21:31:00 CDT Morphine 1-0 No 4 mg, Memoria 04-07 Route: l 02:31: IVP, ONCE, [place] 00 Dosing Weight 122.955, kg, Start date: 04/06/21 21:31:00 CDT, Stop date: 04/06/21 21:31:00 CDT ketOROLAC 1-0 No 15 mg, Memori a 15 mg/mL 6-12 Route: l injectable 01:35: IVP, Drug He rmann solution 00 form: INJ, ONCE, Dosing Weight 122.955, kg, Priority: STAT, Start date: 04/06/21 20:35:00 CDT, Stop date: 04/06/21 20:35:00 CDT ketOROLAC 2021-0 No 15 mg, Memori a 15 mg/mL 6-12 Route: l injectable 01:35: IVP, Drug He rmann solution 00 form: INJ, ONCE, Dosing Weight 122.955, kg, Priority: STAT, Start date: 04/06/21 20:35:00 CDT, Stop date: 04/06/21 20:35:00 CDT Morphine 1-0 No 4 mg, Memoria 6-12 Route: l 01:34: IVP, ONCE, [place] 00 Dosing Weight 122.955, kg, Priority: STAT, Start date: 04/06/21 20:34:00 CDT, Stop date: 04/06/21 20:34:00 CDT Ondansetron 1-0 No 4 mg, Memor ia 612 Route: l 01:34: IVP, Drug [place] 00 form: INJ, ONCE, Dosing Weight 122.955, kg, Priority: STAT, Start date: 04/06/21 20:34:00 CDT, Stop date: 04/06/21 20:34:00 CDT Morphine 2021-0 No 4 mg, Memoria 6-12 Route: l 01:34: IVP, ONCE, [place] 00 Dosing Weight 122.955, kg, Priority: STAT, Start date: 04/06/21 20:34:00 CDT, Stop date: 04/06/21 20:34:00 CDT Ondansetron 2021-0 No 4 mg, Memor ia 6-12 Route: l 01:34: IVP, Drug [place] 00 form: INJ, ONCE, Dosing Weight 122.955, kg, Priority: STAT, Start date: 04/06/21 20:34:00 CDT, Stop date: 04/06/21 20:34:00 CDT rivaroxaban 2020-0 Yes 15mg Q.5D Take [address] [facility] (XARELTO) 4-03 tablet (15 [facility] 15 mg Tab 00:00: mg total) Med ical tablet 00 by mouth 2 Center (two) times daily. rivaroxaban 2020-0 Yes 15mg Q.5D Take [address] [facility] (XARELTO) 4-03 tablet (15 [facility] s 15 mg Tab 00:00: mg total) Med ical tablet 00 by mouth 2 Center (two) times daily. rivaroxaban 2020-0 Yes 15mg Q.5D Take [address] [facility] (XARELTO) 4-03 tablet (15 Luke s 15 mg Tab 00:00: mg total) Med ical tablet 00 by mouth 2 Center (two) times daily. rivaroxaban 2020-0 Yes 15mg Q.5D Take [address] [facility] (XARELTO) 4-03 tablet (15 Luke s 15 mg Tab 00:00: mg total) Med ical tablet 00 by mouth 2 Center (two) times daily. zinc 2020-0 Yes 177g Apply [address] [facility] oxide-bautista 4-02 g [facility] 00:[facility]: topically Medical (CRITIC-AID [address] ) 20-51 % (perianal Pste excoriatio topical n). paste zinc 2020-0 Yes 177g Apply [address] [facility] oxide-[facility]autista 4-02 g [facility] 00:00: topically Medical (CRITIC-AID [address] ) 20-51 % (perianal Pste excoriatio topical n). paste zinc 2020-0 Yes 177g Apply [address] [facility] [address] oxide-[facility]ista 4-02 g [facility] 00:00: topically Medical (CRITIC-AID [address] ) 20-51 % (perianal Pste excoriatio topical n). paste zinc 2020-0 Yes 177g Apply [address] [facility] [address] oxide-bautista 4-02 g [facility] 00:00: topically Medical (CRITIC-AID [address] ) 20-51 % (perianal Pste excoriatio topical n). paste ceftaroline 2020-0 Yes 600mg Inject [address] [facility] [address] (TEFLARO) 3-05 mg [facility] MBP 600 mg 00:00: intravenou M edical in 100 mL 00 sly every Cente r NS 12 (twelve) hours. ceftaroline 2020-0 Yes 600mg Inject [address] [facility] [address] (TEFLARO) 3-05 mg [facility] MBP 600 mg 00:00: intravenou M edical in 100 mL 00 sly every Cente r NS 12 (twelve) hours. ceftaroline 2020-0 Yes 600mg Inject [address] [facility] [address] (TEFLARO) 3-05 mg [facility] MBP 600 mg 00:00: intravenou M edical in 100 mL 00 sly every Cente r NS 12 (twelve) hours. ceftaroline 2020-0 Yes 600mg Inject [address] [facility] [address] (TEFLARO) 3-05 mg [facility] MBP 600 mg 00:00: intravenou M edical in 100 mL 00 sly every Cente r NS 12 (twelve) hours. DAPTOmycin 2020-0 Yes 1000mg Q24H Inject [facility] (CUBICIN) 3-04 1,000 mg [facility] in sodium 00:00: intravenou Me dical chloride 00 sly daily. Cente r (NS) NON-DEHP 50 ML IVPB DAPTOmycin 2020-0 Yes 1000mg Q24H Inject [facility] (CUBICIN) 3-04 1,000 mg [facility] in sodium 00:00: intravenou Me dical chloride 00 sly daily. Cente r (NS) NON-DEHP 50 ML IVPB DAPTOmycin 2020-0 Yes 1000mg Q24H Inject [facility] (CUBICIN) 3-04 1,000 mg [facility] in sodium 00:00: intravenou Me dical chloride 00 sly daily. Cente r (NS) NON-DEHP 50 ML IVPB DAPTOmycin 2020-0 Yes 1000mg Q24H Inject [facility] (CUBICIN) 3-04 1,000 mg [facility] in sodium 00:00: intravenou Me dical chloride 00 sly daily. Cente r (NS) NON-DEHP 50 ML IVPB Aspirin 81 2020-0 Yes 81 mg = 1 Me moria MG Enteric 2-19 tab, PO, l Coated 01:34: Daily, 0 [place] Tablet 00 Refill(s) pravastatin 2020-0 Yes 80 mg = 4 M emoria 20 mg oral 2-19 tab, PO, l tablet 01:34: Bedtime, 0 Cata nn 00 Refill(s) sertraline 2020-0 Yes 50 mg = 2 Me moria 25 mg oral 2-19 tab, PO, l tablet 01:34: Daily, 0 [place] 00 Refill(s) tamsulosin 2020-0 Yes 0.4 mg [...] tablet 01:34: Daily, 0 Luis 00 Refill(s) cyclobenzap 2020-0 Yes 10 mg = 1 M emoria rine 10 mg 2-19 tab, PO, l oral tablet 01:34: Q8H, PRN He rmann 00 Muscle Spasms, 0 Refill(s) Docusate 2020-0 Yes 100 mg = 1 Mem oria Sodium 100 2-19 cap, PO, l MG Oral 01:34: BID, 0 [place] Capsule 00 Refill(s) Furosemide 2020-0 Yes 40 mg = 1 Me moria 40 MG Oral 2-19 tab, PO, l Tablet 01:34: Daily, 0 [place] 00 Refill(s) lisinopril 2020-0 Yes 20 mg = 1 Me moria 20 mg oral 2-19 tab, PO, l tablet 01:34: Daily, 0 [place] 00 Refill(s) metoprolol 2020-0 Yes 25 mg = 1 Me moria tartrate 25 2-19 tab, PO, l mg oral 01:34: Q12H, 0 [place] tablet 00 Refill(s) metroNIDAZO 2020-0 Yes 500 mg = Me moria LE 2-19 100 mL, l intravenous 01:34: IVPB, Cata nn solution 00 ABXQ8H, 0 Refill(s) ondansetron 2020-0 Yes 4 mg = 2 Me moria 2 mg/mL 2-19 mL, IVP, l injectable 01:34: Q8H, PRN Her bui solution 00 Nausea & Vomiting, 0 Refill(s) tramadol 2020-0 Yes 50 mg = 1 Mike richelle hydrochlori 2-19 tab, PO, l de 50 MG 01:34: Q6H, PRN Cata nn Oral Tablet 00 Pain Score 1-3, 0 Refill(s) Aspirin 81 2020-0 Yes 81 mg = [...] tablet 01:34: Daily, 0 [place] 00 Refill(s) cyclobenzap 2020-0 Yes 10 mg = 1 M emoria rine 10 mg 2-19 tab, PO, l oral tablet 01:34: Q8H, PRN He rmann 00 Muscle Spasms, 0 Refill(s) Docusate 2020-0 Yes 100 mg = 1 Mem oria Sodium 100 2-19 cap, PO, l MG Oral 01:34: BID, 0 [place] Capsule 00 Refill(s) Furosemide 2020-0 Yes 40 mg = 1 Me moria 40 MG Oral 2-19 tab, PO, l Tablet 01:34: Daily, 0 [place] 00 Refill(s) lisinopril 2020-0 Yes 20 mg = 1 Me moria 20 mg oral 2-19 tab, PO, l tablet 01:34: Daily, 0 [place] 00 Refill(s) metoprolol 2020-0 Yes 25 mg [...] 00 Nausea & Vomiting, 0 Refill(s) tramadol 2020-0 Yes 50 mg = 1 Mike richelle hydrochlori 2-19 tab, PO, l de 50 MG 01:34: Q6H, PRN Cata nn Oral Tablet 00 Pain Score 1-3, 0 Refill(s) cefepime 2019-0 No Notes: Memoria 2-18 (Same As: l 02:00: Maxipime) [place] 00 MEDICATION WASTE Product Size: 1000 mg Product Wasted: ___ mg Flagyl 2019-0 No Notes: Memoria 2-18 (Same as: l 02:00: Flagyl) Avoid alcohol. cefepime 2019-0 No Notes: Memoria 2-18 (Same As: l 02:00: Maxipime) MEDICATION WASTE Product Size: 1000 mg Product Wasted: ___ mg Flagyl 2019-0 No Notes: Memoria 2-18 (Same as: l 02:00: Flagyl) [place] 00 Avoid alcohol. Tylenol 2019-0 No Notes: Do Memor ia 2-18 not exceed l 01:32: 4 gm/day. (Same as: Tylenol) Tylenol 2019-0 No Notes: Do Memor ia 2-18 not exceed l 01:32: 4 gm/day. (Same as: Tylenol) Potassium 2019-0 No Notes: Memori a Chloride 2-17 (Same as: l 18:08: K-Dur 20) "Do Not Crush" Give with food and full glass of water For patients unable to swallow tablet, dissolve in one half glass of water. Allow about 2 minutes for the tablets to disintegra te. Stir before giving to prepare slurry and administer . Please exclude Patient s with feeding tube less than 14 [place] (Dobhoff, J-tube etc) and pediatric and patients. Potassium 2020-0 No Notes: Memori a Chloride 2-17 (Same as: l 18:08: K-Dur 20) "Do Not Crush" Give with food and full glass of water For patients unable to swallow tablet, dissolve in one half glass of water. Allow about 2 minutes for the tablets to disintegra te. Stir before giving to prepare slurry and administer . Please exclude Patient s with feeding tube less than 14 [place] (Dobhoff, J-tube etc) and pediatric and patients. Potassium 2020-0 No Notes: Memori a Chloride 2-17 (Same as: l 04:00: K-Dur 20) [place] 00 "Do Not Crush" Give with food and full glass of water For patients unable to swallow tablet, dissolve in one half glass of water. Allow about 2 minutes for the tablets to disintegra te. Stir before giving to prepare slurry and administer . Please exclude Patient s with feeding tube less than 14 [place] (Dobhoff, J-tube etc) and pediatric and patients. Potassium 2020-0 No Notes: Memori a Chloride 2-17 (Same as: l 04:00: K-Dur 20) [place] 00 "Do Not Crush" Give with food and full glass of water For patients unable to swallow tablet, dissolve in one half glass of water. Allow about 2 minutes for the tablets to disintegra te. Stir before giving to prepare slurry and administer . Please exclude Patient s with feeding tube less than 14 [place] (Dobhoff, J-tube etc) and pediatric and patients. Lasix 2020-0 No Notes: Memoria 2-16 (Same as: l 23:45: Lasix) May [place] 00 cause GI upset. Give with food or milk. Lasix 2020-0 No Notes: Memoria 2-16 (Same as: l 23:45: Lasix) May [place] 00 cause GI upset. Give with food or milk. Potassium 2020-0 No Notes: Memori a Chloride 2-16 (Same as: l 23:23: K-Dur 20) [place] 00 "Do Not Crush" Give with food and full glass of water For patients unable to swallow tablet, dissolve in one half glass of water. Allow about 2 minutes for the tablets to disintegra te. Stir before giving to prepare slurry and administer . Please exclude Patient s with feeding tube less than 14 [place] (Dobhoff, J-tube etc) and pediatric and patients. Potassium 2020-0 No Notes: Memori a Chloride 2-16 (Same as: l 23:23: K-Dur 20) [place] 00 "Do Not Crush" Give with food and full glass of water For patients unable to swallow tablet, dissolve in one half glass of water. Allow about 2 minutes for the tablets to disintegra te. Stir before giving to prepare slurry and administer . Please exclude Patient s with feeding tube less than 14 [place] (Dobhoff, J-tube etc) and pediatric and patients. tramadol 2020-0 No Notes: Not Mem oria hydrochlori 2-16 to exceed l de 50 MG 22:07: 400mg/day. Her bui Oral Tablet 00 (Same As: Ultram) Flexeril 2020-0 No Notes: Memoria 2-16 (Same As: l 22:07: Flexeril) tramadol 2019-0 No Notes: Not Mem oria hydrochlori 2-16 to exceed l de 50 MG 22:07: 400mg/day. 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, Duration: 30 day, Stop date: 01/10/20 17:00:00 CDT metoprolol 2020-0 No 25 mg, Memor ia tartrate 2-16 Route: PO, l 15:00: Drug form: [place] 00 TAB, BID, Dosing Weight 122.955, kg, Start date: 12/12/19 9:00:00 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, Duration: 30 day, Stop date: 01/10/20 17:00:00 CDT metoprolol 2020-0 No Notes: Memor ia tartrate 2-16 (Same as: l 04:00: Lopressor) metoprolol 2019-0 No Notes: Memor ia tartrate 2-16 (Same as: l 04:00: Lopressor) Pravastatin 2019-0 No Notes: Mike richelle 2-16 (Same as: l 03:00: Pravachol) tamsulosin 2019-0 No Notes: Memor ia 2-16 (Same As: l 03:00: Flomax) [place] "Do Not Crush" Pravastatin 0 No Notes: Mike richelle 2-16 (Same as: l 03:00: Pravachol) tamsulosin 0 No Notes: Memor ia 2-16 (Same As: l 03:00: Flomax) [place] 00 "Do Not Crush" Lasix 0 No Notes: Memoria 2-15 (Same as: l 17:49: Lasix) Luis MEDICATION WASTE Product Size: 40 mg Product Wasted: ___ mg Lasix 0 No Notes: Memoria 2-15 (Same as: l 17:49: Lasix) [place] 00 MEDICATION WASTE Product Size: 40 mg Product Wasted: ___ mg Amlodipine 0 No 1 cap, Memor ia 5 MG / 2-15 Route: PO, l Benazepril 15:00: Drug Form: H ermann hydrochlori 00 CAP, de 20 MG Dosing Oral Weight Capsule 122.955, kg, Daily, Start date: 12/11/19 9:00:00 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 Luis Tablet 00 (Same As: Ecotrin) Sertraline 0 No Notes: Memor ia 2-15 (Same as: l 15:00: Zoloft) Luis Docusate 0 No Notes: Memoria 2-15 (Same as: l 15:00: Colace) Luis 00 (Do Not Crush) amLODIPine No Notes: Memor ia 2-15 (Same as: l 15:00: Norvasc) Luis lisinopril No Notes: Memor ia 2-15 (Same as: l 15:00: Prinivil, [place] 00 Zestril) Acetaminoph No Notes: Mike richelle en 325 MG / 2-15 (Same as: l Hydrocodone 04:14: [place] C[place] Bitartrate 00 325/5) Do 5 MG Oral not exceed Tablet 4gm/day of [[place] acetaminop 5/325] hen. Acetaminoph No Notes: Mike richelle en 325 MG / 2-15 (Same as: l Hydrocodone 04:14: [place] C[place] Bitartrate 00 325/5) Do 5 MG Oral not exceed Tablet 4gm/day of [[place] acetaminop 5/325] hen. 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, Duration: 30 day, Stop date: 01/09/20 23:09:00 CDT, 0 Ondansetron 2020-0 No Notes: Mike richelle 2-15 (Same as: l 04:10: Marcial) MEDICATION WASTE Product Size: 4 mg Product Wasted: ___ mg Dextrose 2020-0 No 12.5 gm, Memor ia 50% Syringe 2-15 25 mL, l ([id number]) 04:10: Route: Luis 00 IVP, Drug Form: INJ, Dosing Weight 122.955, kg, PRN, PRN Blood Glucose Results, Start date: 12/10/19 22:10:00 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, Duration: 30 day, Stop date: 01/09/20 23:09:00 CDT, 0 Glucagon 2020-0 No 1 mg, Memoria 2-15 Route: IM, l 04:10: Drug form: Luis 00 PDR/INJ, PRN, Dosing Weight 122.955, kg, PRN Blood Glucose Results, Start date: 12/10/19 22:10:00 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, Duration: 30 day, Stop date: 01/09/20 23:09:00 CDT, 0 Ondansetron 2020-0 No Notes: Mike richelle 2-15 (Same as: omuou 04:10: Marcial) MEDICATION WASTE Product Size: 4 mg Product Wasted: ___ mg BD Normal 2020-0 No Notes: Memori a Saline 2-15 Same as: l Flush 03:33: BD Posiflush Sterile Sodium 2020-0 No 250 mL, Memoria Chloride 2-15 Route: l 0.9% IV 03:33: IVPB, [place] 00 Start date: 12/10/19 21:33:00 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, Duration: 30 day, Stop date: 01/09/20 22:32:00 CDT, PRN Line Flush, 0 BD Normal 2020-0 No Notes: Memori a Saline 2-15 Same as: l Flush 03:33: BD [place] 00 Posiflush Sterile Sodium 2020-0 No 250 mL, Memoria Chloride 2-15 Route: l 0.9% IV 03:33: IVPB, Luis 00 Start date: 12/10/19 21:33:00 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, 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5 mg = 1 M emoria 2.5 MG Oral 1-07 tab, PO, l Tablet 15:10: Daily, # [place] 00 30 tab, 3 Refill(s), Pharmacy: [facility] #[id number] amlodipine 2017-10 Yes 1{tbl} Take 1 Uni vers besylate/be 0-03 tablet by ity of nazepril 13:11: mouth [place] (LOTREL 16 daily. Medical ORAL) Branch hydroCHLORO 2017-10 Yes 25mg Take 25 mg [facility] thiazide 25 0-03 by mouth ity of mg tablet 13:11: daily. [address] metOLazone 2017-10 Yes 2.5mg Take 2.5 Un et[place] 2.5 mg 0-03 mg by ity of tablet 13:11: mouth [place] 16 daily. Medical Branch pravastatin 2017-10 Yes 80mg Take 80 mg [facility] (PRAVACHOL) 0-03 by mouth ity of 80 mg 13:11: daily. [address] SERTraline 2017-10 Yes 25mg Take 25 mg U nivers 25 mg 0-03 by mouth ity of tablet 13:11: daily. [address] tamsulosin 2017-10 Yes .4mg Take 0.4 Uni vers 0.4 mg 24 0-03 mg by ity of hr capsule 13:11: mouth [place] 16 daily. Medical Branch baclofen 10 2017-10 Yes 10mg Take 10 mg [facility] mg tablet 0-03 by mouth ity of 13:11: as needed. [place] [id number] Medical Branch meclizine 2017-10 Yes 25mg Take 25 mg Un et[place] 25 mg 0-03 by mouth ity of tablet 13:11: daily. [place] [address] Medical Branch amlodipine 2017-10 Yes 1{tbl} Take 1 Uni vers besylate/be 0-03 tablet by ity of nazepril 13:11: mouth [place] (LOTREL 16 daily. Medical ORAL) Branch hydroCHLORO 2017-10 Yes 25mg Take 25 mg [facility] thiazide 25 0-03 by mouth ity of mg tablet 13:11: daily. [address] metOLazone 2017-10 Yes 2.5mg Take 2.5 Un et[place] 2.5 mg 0-03 mg by ity of tablet 13:11: mouth [place] 16 daily. [facility] Branch pravastatin 2017-10 Yes 80mg Take 80 mg Univers (PRAVACHOL) 0-03 by mouth ity of 80 mg 13:11: daily. [address] Branch SERTraline 2017-10 Yes 25mg Take 25 mg U nivers 25 mg 0-03 by mouth ity of tablet 13:11: daily. [address] Branch tamsulosin 2017-10 Yes .4mg Take 0.4 Uni vers 0.4 mg 24 0-03 mg by ity of hr capsule 13:11: mouth [place] 16 daily. [facility] Branch baclofen 10 2017-10 Yes 10mg Take 10 mg Univers mg tablet 0-03 by mouth ity of 13:11: as needed. [address] Branch meclizine 2017-10 Yes 25mg Take 25 mg Un [place] 25 mg 0-03 by mouth ity of tablet 13:11: daily. [address] Metolazone No 2.5 mg = 1 M emoria 2.5 MG Oral 7-17 tab, PO, l Tablet 17:38: Daily, # [place] 00 30 tab, 3 Refill(s), Pharmacy: [facility] #[id number] Metolazone No 2.5 mg = 1 M emoria 2.5 MG Oral 7-17 tab, PO, l Tablet 17:38: Daily, # [place] 00 30 tab, 3 Refill(s), Pharmacy: [facility] #[id number] Metolazone 2018-0 Yes 2.5 mg = 1 M emoria 2.5 MG Oral 5-08 tab, PO, l Tablet 17:57: Daily, # [place] 00 30 tab, 6 Refill(s), Pharmacy: [facility] #[id number] Metolazone 2018-0 Yes 2.5 mg = 1 M emoria 2.5 MG Oral 5-08 tab, PO, l Tablet 17:57: Daily, # [place] 00 30 tab, 6 Refill(s), Pharmacy: [facility] #[id number] labetalol 2018-0 Yes 100 mg = 1 Me moria 100 mg oral 3-19 tab, PO, l tablet 17:14: BID, # 60 [place] n 00 tab, 3 Refill(s), other labetalol 2018-0 Yes 100 mg = 1 Me moria 100 mg oral 3-19 tab, PO, l tablet 17:14: BID, # 60 [place] 00 tab, 3 Refill(s), other magnesium 2018-0 Yes 400 mg = 1 Me moria oxide 400 3-19 tab, PO, l mg oral 16:37: BID, 0 Luis tablet 00 Refill(s) magnesium 2018-0 Yes 400 mg = 1 Me moria oxide 400 3-19 tab, PO, l mg oral 16:37: BID, 0 Luis tablet 00 Refill(s) Hydrochloro 2018-0 Yes 25 mg, PO, Memoria thiazide 3-19 Daily, 0 l 16:36: Refill(s) Luis Hydrochloro 2018-0 Yes 25 mg, PO, Memoria thiazide 3-19 Daily, 0 l 16:36: Refill(s) Luis Garlic Oil 2018-0 Yes 1,000 mg Mem oria oral 3-19 =, PO, l capsule 16:35: Daily, [place] 00 TAKES 1-2 TABLET, 0 Refill(s) Garlic Oil 2018-0 Yes 1,000 mg Mem oria oral 3-19 =, PO, l capsule 16:35: Daily, [place] 00 TAKES 1-2 TABLET, 0 Refill(s) Naproxen 2018-0 Yes 220 mg = 1 Mem oria sodium 220 3-19 cap, PO, l MG Oral 16:15: PRN, 0 [place] Capsule 00 Refill(s) [Aleve] Naproxen 0 Yes 220 mg = 1 Mem oria sodium 220 3-19 cap, PO, l MG Oral 16:15: PRN, 0 [place] Capsule 00 Refill(s) [Aleve] tamsulosin Yes 0 Memoria 0.4 mg oral 7-08 Refill(s) l capsule 15:19: sertraline Yes 0 Memoria 25 mg oral 7-08 Refill(s) l tablet 15:19: pravastatin Yes 0 Memori a 80 mg oral 7-08 Refill(s) l tablet 15:19: Lovaza Yes 0 Memoria 7-08 Refill(s) l 15:19: labetalol Yes 0 Memoria 200 mg oral 7-08 Refill(s) l tablet 15:19: tamsulosin Yes 0 Memoria 0.4 mg oral 7-08 Refill(s) l capsule 15:19: sertraline Yes 0 Memoria 25 mg oral 7-08 Refill(s) l tablet 15:19: pravastatin 0 Yes 0 Memori a 80 mg oral 7-08 Refill(s) l tablet 15:19: Lovaza Yes 0 Memoria 7-08 Refill(s) l 15:19: labetalol 0 Yes 0 Memoria 200 mg oral 7-08 Refill(s) l tablet 15:19: Hydrochloro 0 Yes 0 Memori a thiazide 7-08 Refill(s) l 15:18: Aspirin 81 0 Yes 0 Memoria MG Enteric 7-08 Refill(s) l Coated 15:18: Tablet 00 Amlodipine Yes 0 Memoria 5 MG / 7-08 Refill(s) l Benazepril 15:18: hydrochlori 00 de 20 MG Oral Capsule Hydrochloro Yes 0 Memori a thiazide 7-08 Refill(s) l 15:18: [place] 00 Aspirin 81 Yes 0 Memoria MG Enteric 7-08 Refill(s) l Coated 15:18: [place] Tablet 00 Amlodipine Yes 0 Memoria 5 MG / 7-08 Refill(s) l Benazepril 15:18: hydrochlori 00 de 20 MG Oral Capsule Aleve Yes 0 Memoria 7-08 Refill(s) l 15:17: [place] 00 Aleve Yes 0 Memoria 7-08 Refill(s) l 15:17: Luis 00 Saline No Notes: Memoria Flush 0.9% 7-08 (Same as: l 14:39: BD [place] 00 Posiflush) Saline No Notes: Memoria Flush 0.9% 7-08 (Same as: l 14:39: BD Posiflush) Aspirin Yes Take by [facility] ([place] [id number]) 3-03 mouth. [place] 81 MG TBEC 13:01: of 35 Medicin e clopidogrel Yes 75mg Take 75 mg [facility] (PLAVIX) 75 3-03 by mouth [facility] MG tablet 13:01: daily. of 35 Medicin e amlodipine- Yes 1{capsu Take 1 Cap [place] benazepril 3-03 le} by mouth Colle ge (LOTREL) 13:01: daily. of 10-40 MG 35 Medicin per capsule e hydrochloro Yes 25mg Take 25 mg [facility] thiazide 3-03 by mouth [place] (HYDRODIURI 13:01: daily. of L) 25 MG 35 Medicin tablet e Aspirin Yes Take by [facility] ([place] [address]) 3-03 mouth. College 81 MG TBEC 13:01: of 35 Medicin e clopidogrel Yes 75mg Take 75 mg [facility] (PLAVIX) 75 3-03 by mouth Inga e[place] MG tablet 13:01: daily. of 35 Medicin e amlodipine- Yes 1{capsu Take 1 Cap [place] benazepril 3-03 le} by mouth Colle ge (LOTREL) 13:01: daily. of 10-40 MG 35 Medicin per capsule e hydrochloro Yes 25mg Take 25 mg [facility] thiazide 3-03 by mouth [place] (HYDRODIURI 13:01: daily. of L) 25 MG 35 Medicin tablet e pravastatin Yes 40mg Take 40 mg [facility] (PRAVACHOL) 2-28 by mouth [place] 40 MG 10:59: daily. of tablet 47 Medicin e sertraline Yes 50mg Take 50 mg [facility] (ZOLOFT) 50 2-28 by mouth Inga [facility] MG tablet 10:59: daily. of 47 Medicin e terazosin Yes 10mg Take 10 mg [facility] (HYTRIN) 10 2-28 by mouth [place]ga e[place] MG capsule 10:59: nightly. of 47 Medicin e [place]-3-aci Yes Take by [place] [facility]ilipp [facility] Ethyl 2-28 mouth. College Esters 10:59: of (LOVAZA) 1 47 Medicin G CAPS e aspirin 81 Yes 81mg Take 81 mg [facility] [place] MG tablet 2-28 by mouth Colleg e 10:59: daily. of 47 Medicin e pravastatin Yes 40mg Take 40 mg [facility] (PRAVACHOL) 2-28 by mouth [place] [facility] 40 MG 10:59: daily. of tablet 47 Medicin e sertraline Yes 50mg Take 50 mg [facility] (ZOLOFT) 50 2-28 by mouth Inga [facility] MG tablet 10:59: daily. of 47 Medicin e terazosin Yes 10mg Take 10 mg [facility] (HYTRIN) 10 2-28 by mouth Inga e[facility] MG capsule 10:59: nightly. of 47 Medicin e [place]-3-aci Yes Take by [place] [facility] Ethyl 2-28 mouth. [facility] Esters 10:59: of (LOVAZA) 1 47 Medicin G CAPS e aspirin 81 Yes 81mg Take 81 mg [place] MG tablet 2-28 by mouth Colleg e 10:59: daily. of 47 Medicin e simvastatin Yes 20mg Take 20 mg [facility] (ZOCOR) 20 2-28 by mouth Colle ge MG tablet 10:53: every of 35 evening. Medicin e simvastatin Yes 20mg Take 20 mg [place] (ZOCOR) 20 2-28 by mouth Colle ge MG tablet 10:53: every of 35 evening. Medicin e clindamycin 2012-10 Yes 300mg Take 1 Cap [facility] (CLEOCIN) 1-05 by mouth 3 [place] 300 MG 00:00: times of capsule 00 daily. Medicin e hydrocodone 2012-10 Yes 1{tbl} Take 1 Tab [place] -acetaminop 1-05 by mouth Inga e[facility] hen (NORCO) 00:00: every 4 of 5-325 mg 00 hours as Medicin tablet needed for e Pain. clindamycin 2012-10 Yes 300mg Take 1 Cap [place] (CLEOCIN) 1-05 by mouth 3 Inga [place] 300 MG 00:00: times of capsule 00 daily. Medicin e hydrocodone 2012-10 Yes 1{tbl} Take 1 Tab [place] -acetaminop 1-05 by mouth Inga ege hen (NORCO) 00:00: every 4 of 5-325 mg 00 hours as Medicin tablet needed for e Pain. potassium potassium No potassium Nelda chloride ER chloride ER chloride [facility] 20 mEq 20 mEq ER 20 mEq dic tablet,exte tablet,exte tablet,ext Sports nded nded ended Medicin release(par release(par release(pa e t/cryst) t/cryst) rt/cryst) TAKE 1 TAKE 1 TAKE 1 TABLET BY TABLET BY TABLET BY MOUTH EVERY MOUTH EVERY MOUTH DAY WITH DAY WITH EVERY DAY FOOD FOOD WITH FOOD spironolact spironolact No spironolac [place] one 25 mg one 25 mg tone 25 mg [facility] tablet TAKE tablet TAKE tablet dic 1/2 TABLET 1/2 TABLET TAKE 1/2 Sports BY MOUTH BY MOUTH TABLET BY Me dicin EVERY DAY EVERY DAY MOUTH e EVERY DAY terazosin 1 terazosin 1 No terazosin Nelda mg capsule mg capsule 1 mg Ort hope capsule dic Sports Medicin e Xarelto 20 Xarelto 20 No Xarelto 20 Nelda mg tablet mg tablet mg tablet [facility] dic Sports Medicin e albuterol albuterol No albuterol [place] sulfate HFA sulfate HFA sulfate [facility] 90 90 HFA 90 dic mcg/actuati mcg/actuati mcg/actuat Sports on aerosol on aerosol ion Med icin inhaler inhaler aerosol e inhaler atorvastati atorvastati No atorvastat Nelda n 20 mg n 20 mg in 20 mg Ortho pe tablet TAKE tablet TAKE tablet dic 1 TABLET BY 1 TABLET BY TAKE 1 Sports MOUTH MOUTH TABLET BY Medicin EVERYDAY AT EVERYDAY AT MOUTH e BEDTIME BEDTIME EVERYDAY AT BEDTIME buspirone buspirone No buspirone Nelda 10 mg 10 mg 10 mg [facility] tablet tablet tablet dic Sports Medicin e carvedilol carvedilol No carvedilol Nelda 12.5 mg 12.5 mg 12.5 mg Orth[facility] e tablet TAKE tablet TAKE tablet dic 1 TABLET BY 1 TABLET BY TAKE 1 Sports MOUTH TWICE MOUTH TWICE TABLET BY Medicin A DAY WITH A DAY WITH MOUTH e FOOD FOOD TWICE A DAY WITH FOOD cyclobenzap cyclobenzap No cyclobenza Nelda rine 5 mg rine 5 mg caroline 5 mg [facility] tablet TAKE tablet TAKE tablet dic 1 TABLET BY 1 TABLET BY TAKE 1 Sports MOUTH THREE MOUTH THREE TABLET BY Medicin TIMES A DAY TIMES A DAY MOUTH e FOR 7 DAYS FOR 7 DAYS THREE TIMES A DAY FOR 7 DAYS diclofenac diclofenac No diclofenac Nelda sodium 75 sodium 75 sodium 75 [facility] mg mg mg dic tablet,roberta tablet,roberta tablet,del Sports yed release yed release ayed M edicin TAKE 1 TAKE 1 release e TABLET BY TABLET BY TAKE 1 MOUTH TWICE MOUTH TWICE TABLET BY A DAY A DAY MOUTH TWICE A DAY Eliquis 2.5 Eliquis 2.5 No Eliquis Nelda mg tablet mg tablet 2.5 mg Ort hope TAKE 1 TAKE 1 tablet dic TABLET BY TABLET BY TAKE 1 Spo rts MOUTH TWICE MOUTH TWICE TABLET BY Medicin A DAY A DAY MOUTH e TWICE A DAY furosemide furosemide No furosemide Nelda 20 mg 20 mg 20 mg [facility] tablet TAKE tablet TAKE tablet dic 1 TABLET BY 1 TABLET BY TAKE 1 Sports MOUTH EVERY MOUTH EVERY TABLET BY Medicin DAY DAY MOUTH e NEEDED NEEDED EVERY DAY NEEDED furosemide furosemide No furosemide Nelda 40 mg 40 mg 40 mg [facility] tablet TAKE tablet TAKE tablet dic 1 TABLET BY 1 TABLET BY TAKE 1 Sports MOUTH EVERY MOUTH EVERY TABLET BY Medicin DAY DAY MOUTH e EVERY DAY furosemide furosemide No furosemide Nelda 80 mg 80 mg 80 mg [facility] tablet TAKE tablet TAKE tablet dic 1 TABLET BY 1 TABLET BY TAKE 1 Sports MOUTH EVERY MOUTH EVERY TABLET BY Medicin DAY DAY MOUTH e EVERY DAY gabapentin gabapentin No gabapentin Nelda 100 mg 100 mg 100 mg [facility] capsule capsule capsule dic TAKE 1 TAKE 1 TAKE 1 Sports CAPSULE BY CAPSULE BY CAPSULE BY Medicin MOUTH TWICE MOUTH TWICE MOUTH e A DAY A DAY TWICE A DAY hydralazine hydralazine No hydralazin Nelda 25 mg 25 mg e 25 mg [facility] tablet TAKE tablet TAKE tablet dic 3 TABLET BY 3 TABLET BY TAKE 3 Sports ORAL ROUTE ORAL ROUTE TABLET BY Medicin 3 TIMES 3 TIMES ORAL ROUTE e EVERY DAY EVERY DAY 3 TIMES WITH FOOD WITH FOOD EVERY DAY WITH FOOD ketoconazol ketoconazol No ketoconazo Nelda e 2 % e 2 % le 2 % [facility] shampoo shampoo shampoo dic APPLY TO APPLY TO APPLY TO Spo rts SCALP TO SCALP TO SCALP TO Med icin WASH TWICE WASH TWICE WASH TWICE e A WEEK FOR A WEEK FOR A WEEK FOR 4 WEEKS, 4 WEEKS, 4 WEEKS, THEN APPLY THEN APPLY THEN APPLY ONCE EVERY ONCE EVERY ONCE EVERY 1 TO 2 1 TO 2 1 TO 2 WEEKS WEEKS WEEKS lisinopril lisinopril No lisinopril Nelda 10 mg 10 mg 10 mg [facility] tablet TAKE tablet TAKE tablet dic 1 TABLET 1 TABLET TAKE 1 Sport s DAILY BY DAILY BY TABLET Medic in MOUTH MOUTH DAILY BY e MOUTH lisinopril lisinopril No lisinopril Nelda 20 mg 20 mg 20 mg [facility] tablet TAKE tablet TAKE tablet dic 1 TABLET BY 1 TABLET BY TAKE 1 Sports MOUTH EVERY MOUTH EVERY TABLET BY Medicin DAY DAY MOUTH e EVERY DAY memantine memantine No memantine Nelda 10 mg 10 mg 10 mg [facility] tablet tablet tablet dic Sports Medicin e metoprolol metoprolol No metoprolol Nelda tartrate 25 tartrate 25 tartrate [facility] mg tablet mg tablet 25 mg dic tablet Sports Medicin e metoprolol metoprolol No metoprolol Nelda tartrate 50 tartrate 50 tartrate [facility] mg tablet mg tablet 50 mg dic TAKE 1 TAKE 1 tablet Sports TABLET BY TABLET BY TAKE 1 Med icin MOUTH TWICE MOUTH TWICE TABLET BY e A DAY WITH A DAY WITH MOUTH MEALS MEALS TWICE A DAY WITH MEALS mupirocin 2 mupirocin 2 No mupirocin Nelda % topical % topical 2 % Ortho pe ointment ointment topical dic APPLY TO APPLY TO ointment Spo rts NOSTRILS AT NOSTRILS AT APPLY TO Medicin BED TIME BED TIME NOSTRILS e FOR 2 FOR 2 AT BED WEEKS. WEEKS. TIME FOR 2 WEEKS. oxybutynin oxybutynin No oxybutynin [place] chloride 5 chloride 5 chloride 5 [facility] mg tablet mg tablet mg tablet dic Sports Medicin e potassium potassium No potassium [place] chloride ER chloride ER chloride [facility] 20 mEq 20 mEq ER 20 mEq dic tablet,exte tablet,exte tablet,ext Sports nded nded ended Medicin release release release e TAKE 1 TAKE 1 TAKE 1 TABLET BY TABLET BY TABLET BY MOUTH DAILY MOUTH DAILY MOUTH DAILY potassium potassium No potassium [place] chloride ER chloride ER chloride [facility] 20 mEq 20 mEq ER 20 mEq dic tablet,exte tablet,exte tablet,ext Sports nded nded ended Medicin release(par release(par release(pa e t/cryst) t/cryst) rt/cryst) TAKE 1 TAKE 1 TAKE 1 TABLET BY TABLET BY TABLET BY MOUTH EVERY MOUTH EVERY MOUTH DAY WITH DAY WITH EVERY DAY FOOD FOOD WITH FOOD spironolact spironolact No spironolac [place] one 25 mg one 25 mg tone 25 mg [facility] tablet TAKE tablet TAKE tablet dic 1/2 TABLET 1/2 TABLET TAKE 1/2 Sports BY MOUTH BY MOUTH TABLET BY Me dicin EVERY DAY EVERY DAY MOUTH e EVERY DAY terazosin 1 terazosin 1 No terazosin Nelda mg capsule mg capsule 1 mg [facility] capsule dic Sports Medicin e Xarelto 20 Xarelto 20 No Xarelto 20 [facility] mg tablet mg tablet mg tablet [facility] dic Sports Medicin e albuterol albuterol No albuterol [place] sulfate HFA sulfate HFA sulfate [facility] 90 90 HFA 90 dic mcg/actuati mcg/actuati mcg/actuat Sports on aerosol on aerosol ion Med icin inhaler inhaler aerosol e inhaler atorvastati atorvastati No atorvastat N[place]da n 20 mg n 20 mg in 20 mg Orth[facility] pe tablet TAKE tablet TAKE tablet dic 1 TABLET BY 1 TABLET BY TAKE 1 Sports MOUTH MOUTH TABLET BY Medicin EVERYDAY AT EVERYDAY AT MOUTH e BEDTIME BEDTIME EVERYDAY AT BEDTIME buspirone buspirone No buspirone Nelda 10 mg 10 mg 10 mg [facility] tablet tablet tablet dic Sports Medicin e carvedilol carvedilol No carvedilol N[facility]da 12.5 mg 12.5 mg 12.5 mg [facility] e tablet TAKE tablet TAKE tablet dic 1 TABLET BY 1 TABLET BY TAKE 1 Sports MOUTH TWICE MOUTH TWICE TABLET BY Medicin A DAY WITH A DAY WITH MOUTH e FOOD FOOD TWICE A DAY WITH FOOD cyclobenzap cyclobenzap No cyclobenza Nelda rine 5 mg rine 5 mg caroline 5 mg [facility] tablet TAKE tablet TAKE tablet dic 1 TABLET BY 1 TABLET BY TAKE 1 Sports MOUTH THREE MOUTH THREE TABLET BY Medicin TIMES A DAY TIMES A DAY MOUTH e FOR 7 DAYS FOR 7 DAYS THREE TIMES A DAY FOR 7 DAYS diclofenac diclofenac No diclofenac [place]da sodium 75 sodium 75 sodium 75 [facility] mg mg mg dic tablet,roberta tablet,roberta tablet,del Sports yed release yed release ayed M edicin TAKE 1 TAKE 1 release e TABLET BY TABLET BY TAKE 1 MOUTH TWICE MOUTH TWICE TABLET BY A DAY A DAY MOUTH TWICE A DAY Eliquis 2.5 Eliquis 2.5 No Eliquis [place] mg tablet mg tablet 2.5 mg [facility] hope TAKE 1 TAKE 1 tablet dic TABLET BY TABLET BY TAKE 1 Spo rts MOUTH TWICE MOUTH TWICE TABLET BY Medicin A DAY A DAY MOUTH e TWICE A DAY furosemide furosemide No furosemide N[facility]da 20 mg 20 mg 20 mg [facility] tablet TAKE tablet TAKE tablet dic 1 TABLET BY 1 TABLET BY TAKE 1 Sports MOUTH EVERY MOUTH EVERY TABLET BY Medicin DAY DAY MOUTH e NEEDED NEEDED EVERY DAY NEEDED furosemide furosemide No furosemide Nelda 40 mg 40 mg 40 mg [facility] tablet TAKE tablet TAKE tablet dic 1 TABLET BY 1 TABLET BY TAKE 1 Sports MOUTH EVERY MOUTH EVERY TABLET BY Medicin DAY DAY MOUTH e EVERY DAY furosemide furosemide No furosemide Nelda 80 mg 80 mg 80 mg [facility] tablet TAKE tablet TAKE tablet dic 1 TABLET BY 1 TABLET BY TAKE 1 Sports MOUTH EVERY MOUTH EVERY TABLET BY Medicin DAY DAY MOUTH e EVERY DAY gabapentin gabapentin No gabapentin Nelda 100 mg 100 mg 100 mg [facility] capsule capsule capsule dic TAKE 1 TAKE 1 TAKE 1 Sports CAPSULE BY CAPSULE BY CAPSULE BY Medicin MOUTH TWICE MOUTH TWICE MOUTH e A DAY A DAY TWICE A DAY hydralazine hydralazine No hydralazin Nelda 25 mg 25 mg e 25 mg [facility] tablet TAKE tablet TAKE tablet dic 3 TABLET BY 3 TABLET BY TAKE 3 Sports ORAL ROUTE ORAL ROUTE TABLET BY Medicin 3 TIMES 3 TIMES ORAL ROUTE e EVERY DAY EVERY DAY 3 TIMES WITH FOOD WITH FOOD EVERY DAY WITH FOOD ketoconazol ketoconazol No ketoconazo Nelda e 2 % e 2 % le 2 % [facility] shampoo shampoo shampoo dic APPLY TO APPLY TO APPLY TO Spo rts SCALP TO SCALP TO SCALP TO Med icin WASH TWICE WASH TWICE WASH TWICE e A WEEK FOR A WEEK FOR A WEEK FOR 4 WEEKS, 4 WEEKS, 4 WEEKS, THEN APPLY THEN APPLY THEN APPLY ONCE EVERY ONCE EVERY ONCE EVERY 1 TO 2 1 TO 2 1 TO 2 WEEKS WEEKS WEEKS lisinopril lisinopril No lisinopril Nelda 10 mg 10 mg 10 mg [facility] tablet TAKE tablet TAKE tablet dic 1 TABLET 1 TABLET TAKE 1 Sport s DAILY BY DAILY BY TABLET Medic in MOUTH MOUTH DAILY BY e MOUTH lisinopril lisinopril No lisinopril Nelda 20 mg 20 mg 20 mg [facility] tablet TAKE tablet TAKE tablet dic 1 TABLET BY 1 TABLET BY TAKE 1 Sports MOUTH EVERY MOUTH EVERY TABLET BY Medicin DAY DAY MOUTH e EVERY DAY memantine memantine No memantine Nelda 10 mg 10 mg 10 mg [facility] tablet tablet tablet dic Sports Medicin e metoprolol metoprolol No metoprolol Nelda tartrate 25 tartrate 25 tartrate [facility] mg tablet mg tablet 25 mg dic tablet Sports Medicin e metoprolol metoprolol No metoprolol Nelda tartrate 50 tartrate 50 tartrate [facility] mg tablet mg tablet 50 mg dic TAKE 1 TAKE 1 tablet Sports TABLET BY TABLET BY TAKE 1 Med icin MOUTH TWICE MOUTH TWICE TABLET BY e A DAY WITH A DAY WITH MOUTH MEALS MEALS TWICE A DAY WITH MEALS mupirocin 2 mupirocin 2 No mupirocin Nelda % topical % topical 2 % Ortho pe ointment ointment topical dic APPLY TO APPLY TO ointment Spo rts NOSTRILS AT NOSTRILS AT APPLY TO Medicin BED TIME BED TIME NOSTRILS e FOR 2 FOR 2 AT BED WEEKS. WEEKS. TIME FOR 2 WEEKS. oxybutynin oxybutynin No oxybutynin [place]da chloride 5 chloride 5 chloride 5 [facility] mg tablet mg tablet mg tablet dic Sports Medicin e potassium potassium No potassium [place] chloride ER chloride ER chloride [facility] 20 mEq 20 mEq ER 20 mEq dic tablet,exte tablet,exte tablet,ext Sports nded nded ended Medicin release release release e TAKE 1 TAKE 1 TAKE 1 TABLET BY TABLET BY TABLET BY MOUTH DAILY MOUTH DAILY MOUTH DAILY potassium potassium No potassium [place] chloride ER chloride ER chloride [facility] 20 mEq 20 mEq ER 20 mEq dic tablet,exte tablet,exte tablet,ext Sports nded nded ended Medicin release(par release(par release(pa e t/cryst) t/cryst) rt/cryst) TAKE 1 TAKE 1 TAKE 1 TABLET BY TABLET BY TABLET BY MOUTH EVERY MOUTH EVERY MOUTH DAY WITH DAY WITH EVERY DAY FOOD FOOD WITH FOOD spironolact spironolact No spironolac Nelda one 25 mg one 25 mg tone 25 mg [facility] tablet TAKE tablet TAKE tablet dic 1/2 TABLET 1/2 TABLET TAKE 1/2 Sports BY MOUTH BY MOUTH TABLET BY Wi dicin EVERY DAY EVERY DAY MOUTH e EVERY DAY terazosin 1 terazosin 1 No terazosin Nelda mg capsule mg capsule 1 mg [facility] hope capsule dic Sports Medicin e Xarelto 20 Xarelto 20 No Xarelto 20 Nelda mg tablet mg tablet mg tablet [facility] dic Sports Medicin e albuterol albuterol No albuterol [place]da sulfate HFA sulfate HFA sulfate [facility] 90 90 HFA 90 dic mcg/actuati mcg/actuati mcg/actuat Sports on aerosol on aerosol ion Med icin inhaler inhaler aerosol e inhaler atorvastati atorvastati No atorvastat Nelda n 20 mg n 20 mg in 20 mg [facility] pe tablet TAKE tablet TAKE tablet dic 1 TABLET BY 1 TABLET BY TAKE 1 Sports MOUTH MOUTH TABLET BY Medicin EVERYDAY AT EVERYDAY AT MOUTH e BEDTIME BEDTIME EVERYDAY AT BEDTIME buspirone buspirone No buspirone Nelda 10 mg 10 mg 10 mg [facility] tablet tablet tablet dic Sports Medicin e carvedilol carvedilol No carvedilol Nelda 12.5 mg 12.5 mg 12.5 mg [facility] e tablet TAKE tablet TAKE tablet dic 1 TABLET BY 1 TABLET BY TAKE 1 Sports MOUTH TWICE MOUTH TWICE TABLET BY Medicin A DAY WITH A DAY WITH MOUTH e FOOD FOOD TWICE A DAY WITH FOOD cyclobenzap cyclobenzap No cyclobenza Nelda rine 5 mg rine 5 mg caroline 5 mg [facility] tablet TAKE tablet TAKE tablet dic 1 TABLET BY 1 TABLET BY TAKE 1 Sports MOUTH THREE MOUTH THREE TABLET BY Medicin TIMES A DAY TIMES A DAY MOUTH e FOR 7 DAYS FOR 7 DAYS THREE TIMES A DAY FOR 7 DAYS diclofenac diclofenac No diclofenac Nelda sodium 75 sodium 75 sodium 75 [facility] mg mg mg dic tablet,roberta tablet,roberta tablet,del Sports yed release yed release ayed M edicin TAKE 1 TAKE 1 release e TABLET BY TABLET BY TAKE 1 MOUTH TWICE MOUTH TWICE TABLET BY A DAY A DAY MOUTH TWICE A DAY Eliquis 2.5 Eliquis 2.5 No Eliquis Nelda mg tablet mg tablet 2.5 mg Ort hope TAKE 1 TAKE 1 tablet dic TABLET BY TABLET BY TAKE 1 [facility] MOUTH TWICE MOUTH TWICE TABLET BY [facility] A DAY A DAY MOUTH e TWICE A DAY furosemide furosemide No furosemide [facility] 20 mg 20 mg 20 mg [facility] tablet TAKE tablet TAKE tablet dic 1 TABLET BY 1 TABLET BY TAKE 1 Sports MOUTH EVERY MOUTH EVERY TABLET BY [facility] DAY DAY MOUTH e NEEDED NEEDED EVERY DAY NEEDED furosemide furosemide No furosemide N[facility]da 40 mg 40 mg 40 mg [facility] tablet TAKE tablet TAKE tablet dic 1 TABLET BY 1 TABLET BY TAKE 1 Sports MOUTH EVERY MOUTH EVERY TABLET BY [facility] DAY DAY MOUTH e EVERY DAY furosemide furosemide No furosemide N[facility]da 80 mg 80 mg 80 mg [facility] tablet TAKE tablet TAKE tablet dic 1 TABLET BY 1 TABLET BY TAKE 1 Sports MOUTH EVERY MOUTH EVERY TABLET BY [facility] DAY DAY MOUTH e EVERY DAY gabapentin gabapentin No gabapentin [facility] 100 mg 100 mg 100 mg [facility] capsule capsule capsule dic TAKE 1 TAKE 1 TAKE 1 [facility] CAPSULE BY CAPSULE BY CAPSULE BY [facility] MOUTH TWICE MOUTH TWICE MOUTH e A DAY A DAY TWICE A DAY hydralazine hydralazine No hydralazin N[facility]da 25 mg 25 mg e 25 mg [facility] tablet TAKE tablet TAKE tablet dic 3 TABLET BY 3 TABLET BY TAKE 3 Sports ORAL ROUTE ORAL ROUTE TABLET BY [facility] 3 TIMES 3 TIMES ORAL ROUTE e EVERY DAY EVERY DAY 3 TIMES WITH FOOD WITH FOOD EVERY DAY WITH FOOD ketoconazol ketoconazol No ketoconazo Nelda e 2 % e 2 % le 2 % [facility] shampoo shampoo shampoo dic APPLY TO APPLY TO APPLY TO Spo rts SCALP TO SCALP TO SCALP TO Med [facility] WASH TWICE WASH TWICE WASH TWICE e A WEEK FOR A WEEK FOR A WEEK FOR 4 WEEKS, 4 WEEKS, 4 WEEKS, THEN APPLY THEN APPLY THEN APPLY ONCE EVERY ONCE EVERY ONCE EVERY 1 TO 2 1 TO 2 1 TO 2 WEEKS WEEKS WEEKS lisinopril lisinopril No lisinopril [facility]da 10 mg 10 mg 10 mg [facility] tablet TAKE tablet TAKE tablet dic 1 TABLET 1 TABLET TAKE 1 Sport s DAILY BY DAILY BY TABLET Medic in MOUTH MOUTH DAILY BY e MOUTH lisinopril lisinopril No lisinopril Nedla 20 mg 20 mg 20 mg [facility] tablet TAKE tablet TAKE tablet dic 1 TABLET BY 1 TABLET BY TAKE 1 Sports MOUTH EVERY MOUTH EVERY TABLET BY [facility] DAY DAY MOUTH e EVERY DAY memantine memantine No memantine N[facility]da 10 mg 10 mg 10 mg [facility] tablet tablet tablet [facility] metoprolol metoprolol No metoprolol N[facility] tartrate 25 tartrate 25 tartrate [facility] mg tablet mg tablet 25 mg dic tablet [facility] metoprolol metoprolol No metoprolol N[facility] tartrate 50 tartrate 50 tartrate [facility] mg tablet mg tablet 50 mg dic TAKE 1 TAKE 1 tablet Sports TABLET BY TABLET BY TAKE 1 Med icin MOUTH TWICE MOUTH TWICE TABLET BY e A DAY WITH A DAY WITH MOUTH MEALS MEALS TWICE A DAY WITH MEALS mupirocin 2 mupirocin 2 No mupirocin Nelda % topical % topical 2 % [facility] pe ointment ointment topical dic APPLY TO APPLY TO ointment Spo rts NOSTRILS AT NOSTRILS AT APPLY TO [facility] BED TIME BED TIME NOSTRILS e FOR 2 FOR 2 AT BED WEEKS. WEEKS. TIME FOR 2 WEEKS. oxybutynin oxybutynin No oxybutynin [facility] chloride 5 chloride 5 chloride 5 [facility] mg tablet mg tablet mg tablet [facility] potassium potassium No potassium [facility] chloride ER chloride ER chloride [facility] 20 mEq 20 mEq ER 20 mEq dic tablet,exte tablet,exte tablet,ext Sports nded nded ended [facility] release release release e TAKE 1 TAKE 1 TAKE 1 TABLET BY TABLET BY TABLET BY MOUTH DAILY MOUTH DAILY MOUTH DAILY potassium potassium No potassium [facility] chloride ER chloride ER chloride [facility] 20 mEq 20 mEq ER 20 mEq dic tablet,exte tablet,exte tablet,ext Sports nded nded ended [facility] release(par release(par release(pa e t/cryst) t/cryst) rt/cryst) TAKE 1 TAKE 1 TAKE 1 TABLET BY TABLET BY TABLET BY MOUTH EVERY MOUTH EVERY MOUTH DAY WITH DAY WITH EVERY DAY FOOD FOOD WITH FOOD spironolact spironolact No spironolac [facility] one 25 mg one 25 mg tone 25 mg [facility] tablet TAKE tablet TAKE tablet dic 1/2 TABLET 1/2 TABLET TAKE 1/2 Sports BY MOUTH BY MOUTH TABLET BY Wi dicin EVERY DAY EVERY DAY MOUTH e EVERY DAY terazosin 1 terazosin 1 No terazosin [facility] mg capsule mg capsule 1 mg [facility] capsule [facility] Xarelto 20 Xarelto 20 No Xarelto 20 [facility] mg tablet mg tablet mg tablet [facility] albuterol albuterol No albuterol [facility] sulfate HFA sulfate HFA sulfate [facility] 90 90 HFA 90 dic mcg/actuati mcg/actuati mcg/actuat [facility] on aerosol on aerosol ion [facility] inhaler inhaler aerosol e inhaler atorvastati atorvastati No atorvastat [facility] n 20 mg n 20 mg in 20 mg [facility] pe tablet TAKE tablet TAKE tablet dic 1 TABLET BY 1 TABLET BY TAKE 1 Sports MOUTH MOUTH TABLET BY [facility] EVERYDAY AT EVERYDAY AT MOUTH e BEDTIME BEDTIME EVERYDAY AT BEDTIME buspirone buspirone No buspirone [facility] 10 mg 10 mg 10 mg [facility] tablet tablet tablet dic [facility] carvedilol carvedilol No carvedilol [facility] 12.5 mg 12.5 mg 12.5 mg [facility] tablet TAKE tablet TAKE tablet dic 1 TABLET BY 1 TABLET BY TAKE 1 Sports MOUTH TWICE MOUTH TWICE TABLET BY [facility] A DAY WITH A DAY WITH MOUTH e FOOD FOOD TWICE A DAY WITH FOOD cyclobenzap cyclobenzap No cyclobenza N[facility]da rine 5 mg rine 5 mg caroline 5 mg [facility] tablet TAKE tablet TAKE tablet dic 1 TABLET BY 1 TABLET BY TAKE 1 Sports MOUTH THREE MOUTH THREE TABLET BY [facility] TIMES A DAY TIMES A DAY MOUTH e FOR 7 DAYS FOR 7 DAYS THREE TIMES A DAY FOR 7 DAYS diclofenac diclofenac No diclofenac [facility] sodium 75 sodium 75 sodium 75 [facility] mg mg mg dic tablet,roberta tablet,roberta tablet,del Sports yed release yed release ayed M edicin TAKE 1 TAKE 1 release e TABLET BY TABLET BY TAKE 1 MOUTH TWICE MOUTH TWICE TABLET BY A DAY A DAY MOUTH TWICE A DAY Eliquis 2.5 Eliquis 2.5 No Eliquis [facility] mg tablet mg tablet 2.5 mg [facility] TAKE 1 TAKE 1 tablet dic TABLET BY TABLET BY TAKE 1 [facility] MOUTH TWICE MOUTH TWICE TABLET BY [facility] A DAY A DAY MOUTH e TWICE A DAY furosemide furosemide No furosemide [facility] 20 mg 20 mg 20 mg [facility] tablet TAKE tablet TAKE tablet dic 1 TABLET BY 1 TABLET BY TAKE 1 Sports MOUTH EVERY MOUTH EVERY TABLET BY [facility] DAY DAY MOUTH e NEEDED NEEDED EVERY DAY NEEDED furosemide furosemide No furosemide N[facility]da 40 mg 40 mg 40 mg [facility] tablet TAKE tablet TAKE tablet dic 1 TABLET BY 1 TABLET BY TAKE 1 Sports MOUTH EVERY MOUTH EVERY TABLET BY [facility] DAY DAY MOUTH e EVERY DAY furosemide furosemide No furosemide N[facility]da 80 mg 80 mg 80 mg [facility] tablet TAKE tablet TAKE tablet dic 1 TABLET BY 1 TABLET BY TAKE 1 Sports MOUTH EVERY MOUTH EVERY TABLET BY [facility] DAY DAY MOUTH e EVERY DAY gabapentin gabapentin No gabapentin [facility] 100 mg 100 mg 100 mg [facility] capsule capsule capsule dic TAKE 1 TAKE 1 TAKE 1 Sports CAPSULE BY CAPSULE BY CAPSULE BY [facility] MOUTH TWICE MOUTH TWICE MOUTH e A DAY A DAY TWICE A DAY hydralazine hydralazine No hydralazin [facility] 25 mg 25 mg e 25 mg [facility] tablet TAKE tablet TAKE tablet dic 3 TABLET BY 3 TABLET BY TAKE 3 Sports ORAL ROUTE ORAL ROUTE TABLET BY [facility] 3 TIMES 3 TIMES ORAL ROUTE e EVERY DAY EVERY DAY 3 TIMES WITH FOOD WITH FOOD EVERY DAY WITH FOOD ketoconazol ketoconazol No ketoconazo N[facility]da e 2 % e 2 % le 2 % [facility] shampoo shampoo shampoo dic APPLY TO APPLY TO APPLY TO Spo rts SCALP TO SCALP TO SCALP TO Med ic[facility] WASH TWICE WASH TWICE WASH TWICE e A WEEK FOR A WEEK FOR A WEEK FOR 4 WEEKS, 4 WEEKS, 4 WEEKS, THEN APPLY THEN APPLY THEN APPLY ONCE EVERY ONCE EVERY ONCE EVERY 1 TO 2 1 TO 2 1 TO 2 WEEKS WEEKS WEEKS lisinopril lisinopril No lisinopril [facility] 10 mg 10 mg 10 mg [facility] tablet TAKE tablet TAKE tablet dic 1 TABLET 1 TABLET TAKE 1 Sport s DAILY BY DAILY BY TABLET Medic in MOUTH MOUTH DAILY BY e MOUTH lisinopril lisinopril No lisinopril [facility] 20 mg 20 mg 20 mg [facility] tablet TAKE tablet TAKE tablet dic 1 TABLET BY 1 TABLET BY TAKE 1 Sports MOUTH EVERY MOUTH EVERY TABLET BY [facility] DAY DAY MOUTH e EVERY DAY memantine memantine No memantine N[facility]da 10 mg 10 mg 10 mg [facility] tablet tablet tablet dic [facility] metoprolol metoprolol No metoprolol [facility] tartrate 25 tartrate 25 tartrate [facility] mg tablet mg tablet 25 mg dic tablet [facility] metoprolol metoprolol No metoprolol [facility] tartrate 50 tartrate 50 tartrate [facility] mg tablet mg tablet 50 mg dic TAKE 1 TAKE 1 tablet Sports TABLET BY TABLET BY TAKE 1 Med icin MOUTH TWICE MOUTH TWICE TABLET BY e A DAY WITH A DAY WITH MOUTH MEALS MEALS TWICE A DAY WITH MEALS mupirocin 2 mupirocin 2 No mupirocin Nelda % topical % topical 2 % [facility] ointment ointment topical dic APPLY TO APPLY TO ointment [facility]o r[facility] NOSTRILS AT NOSTRILS AT APPLY TO [facility] BED TIME BED TIME NOSTRILS e FOR 2 FOR 2 AT BED WEEKS. WEEKS. TIME FOR 2 WEEKS. oxybutynin oxybutynin No oxybutynin [facility] chloride 5 chloride 5 chloride 5 [facility] mg tablet mg tablet mg tablet dic [facility] potassium potassium No potassium [facility] chloride ER chloride ER chloride [facility] 20 mEq 20 mEq ER 20 mEq dic tablet,exte tablet,exte tablet,ext Sports nded nded ended [facility] release release release e TAKE 1 TAKE 1 TAKE 1 TABLET BY TABLET BY TABLET BY MOUTH DAILY MOUTH DAILY MOUTH DAILY potassium potassium No potassium [facility] chloride ER chloride ER chloride [facility] 20 mEq 20 mEq ER 20 mEq dic tablet,exte tablet,exte tablet,ext Sports nded nded ended [facility] release(par release(par release(pa e t/cryst) t/cryst) rt/cryst) TAKE 1 TAKE 1 TAKE 1 TABLET BY TABLET BY TABLET BY MOUTH EVERY MOUTH EVERY MOUTH DAY WITH DAY WITH EVERY DAY FOOD FOOD WITH FOOD spironolact spironolact No spironolac [facility] one 25 mg one 25 mg tone 25 mg [facility] tablet TAKE tablet TAKE tablet dic 1/2 TABLET 1/2 TABLET TAKE 1/2 Sports BY MOUTH BY MOUTH TABLET BY Me dicin EVERY DAY EVERY DAY MOUTH e EVERY DAY terazosin 1 terazosin 1 No terazosin [facility] mg capsule mg capsule 1 mg [facility] capsule [facility] Xarelto 20 Xarelto 20 No Xarelto 20 [facility] mg tablet mg tablet mg tablet [facility] albuterol albuterol No albuterol [facility] sulfate HFA sulfate HFA sulfate [facility] 90 90 HFA 90 dic mcg/actuati mcg/actuati mcg/actuat Sports on aerosol on aerosol ion [facility] inhaler inhaler aerosol e inhaler atorvastati atorvastati No atorvastat [facility] n 20 mg n 20 mg in 20 mg [facility] pe tablet TAKE tablet TAKE tablet dic 1 TABLET BY 1 TABLET BY TAKE 1 Sports MOUTH MOUTH TABLET BY [facility] EVERYDAY AT EVERYDAY AT MOUTH e BEDTIME BEDTIME EVERYDAY AT BEDTIME buspirone buspirone No buspirone [facility] 10 mg 10 mg 10 mg [facility] tablet tablet tablet dic [facility] carvedilol carvedilol No carvedilol [facility] 12.5 mg 12.5 mg 12.5 mg [facility] tablet TAKE tablet TAKE tablet dic 1 TABLET BY 1 TABLET BY TAKE 1 Sports MOUTH TWICE MOUTH TWICE TABLET BY [facility] A DAY WITH A DAY WITH MOUTH e FOOD FOOD TWICE A DAY WITH FOOD cyclobenzap cyclobenzap No cyclobenza N[facility]da rine 5 mg rine 5 mg caroline 5 mg [facility] tablet TAKE tablet TAKE tablet dic 1 TABLET BY 1 TABLET BY TAKE 1 Sports MOUTH THREE MOUTH THREE TABLET BY [facility] TIMES A DAY TIMES A DAY MOUTH e FOR 7 DAYS FOR 7 DAYS THREE TIMES A DAY FOR 7 DAYS diclofenac diclofenac No diclofenac [facility] sodium 75 sodium 75 sodium 75 [facility] mg mg mg dic tablet,roberta tablet,roberta tablet,del Sports yed release yed release ayed M edicin TAKE 1 TAKE 1 release e TABLET BY TABLET BY TAKE 1 MOUTH TWICE MOUTH TWICE TABLET BY A DAY A DAY MOUTH TWICE A DAY Eliquis 2.5 Eliquis 2.5 No Eliquis [facility] mg tablet mg tablet 2.5 mg [facility] TAKE 1 TAKE 1 tablet dic TABLET BY TABLET BY TAKE 1 [facility] MOUTH TWICE MOUTH TWICE TABLET BY [facility] A DAY A DAY MOUTH e TWICE A DAY furosemide furosemide No furosemide [facility] 20 mg 20 mg 20 mg [facility] tablet TAKE tablet TAKE tablet dic 1 TABLET BY 1 TABLET BY TAKE 1 Sports MOUTH EVERY MOUTH EVERY TABLET BY [facility] DAY DAY MOUTH e NEEDED NEEDED EVERY DAY NEEDED furosemide furosemide No furosemide N[facility]da 40 mg 40 mg 40 mg [facility] tablet TAKE tablet TAKE tablet dic 1 TABLET BY 1 TABLET BY TAKE 1 Sports MOUTH EVERY MOUTH EVERY TABLET BY [facility] DAY DAY MOUTH e EVERY DAY furosemide furosemide No furosemide Nelda 80 mg 80 mg 80 mg [facility] tablet TAKE tablet TAKE tablet dic 1 TABLET BY 1 TABLET BY TAKE 1 Sports MOUTH EVERY MOUTH EVERY TABLET BY [facility] DAY DAY MOUTH e EVERY DAY gabapentin gabapentin No gabapentin [facility]da 100 mg 100 mg 100 mg [facility] capsule capsule capsule dic TAKE 1 TAKE 1 TAKE 1 Sports CAPSULE BY CAPSULE BY CAPSULE BY [facility] MOUTH TWICE MOUTH TWICE MOUTH e A DAY A DAY TWICE A DAY hydralazine hydralazine No hydralazin N[facility]da 25 mg 25 mg e 25 mg [facility] tablet TAKE tablet TAKE tablet dic 3 TABLET BY 3 TABLET BY TAKE 3 Sports ORAL ROUTE ORAL ROUTE TABLET BY [facility] 3 TIMES 3 TIMES ORAL ROUTE e EVERY DAY EVERY DAY 3 TIMES WITH FOOD WITH FOOD EVERY DAY WITH FOOD ketoconazol ketoconazol No ketoconazo Nelda e 2 % e 2 % le 2 % [facility] shampoo shampoo shampoo dic APPLY TO APPLY TO APPLY TO Spo rts SCALP TO SCALP TO SCALP TO Med icin WASH TWICE WASH TWICE WASH TWICE e A WEEK FOR A WEEK FOR A WEEK FOR 4 WEEKS, 4 WEEKS, 4 WEEKS, THEN APPLY THEN APPLY THEN APPLY ONCE EVERY ONCE EVERY ONCE EVERY 1 TO 2 1 TO 2 1 TO 2 WEEKS WEEKS WEEKS lisinopril lisinopril No lisinopril [facility]da 10 mg 10 mg 10 mg [facility] tablet TAKE tablet TAKE tablet dic 1 TABLET 1 TABLET TAKE 1 Sport s DAILY BY DAILY BY TABLET Medic in MOUTH MOUTH DAILY BY e MOUTH lisinopril lisinopril No lisinopril N[facility]da 20 mg 20 mg 20 mg [facility] tablet TAKE tablet TAKE tablet dic 1 TABLET BY 1 TABLET BY TAKE 1 Sports MOUTH EVERY MOUTH EVERY TABLET BY [facility] DAY DAY MOUTH e EVERY DAY memantine memantine No memantine N[facility]da 10 mg 10 mg 10 mg [facility] tablet tablet tablet dic [facility] metoprolol metoprolol No metoprolol N[facility] tartrate 25 tartrate 25 tartrate [facility] mg tablet mg tablet 25 mg dic tablet [facility] metoprolol metoprolol No metoprolol N[facility] tartrate 50 tartrate 50 tartrate [facility] mg tablet mg tablet 50 mg dic TAKE 1 TAKE 1 tablet Sports TABLET BY TABLET BY TAKE 1 Med icin MOUTH TWICE MOUTH TWICE TABLET BY e A DAY WITH A DAY WITH MOUTH MEALS MEALS TWICE A DAY WITH MEALS mupirocin 2 mupirocin 2 No mupirocin Nelda % topical % topical 2 % [facility] pe ointment ointment topical dic APPLY TO APPLY TO ointment [facility]o rts NOSTRILS AT NOSTRILS AT APPLY TO [facility] BED TIME BED TIME NOSTRILS e FOR 2 FOR 2 AT BED WEEKS. WEEKS. TIME FOR 2 WEEKS. oxybutynin oxybutynin No oxybutynin [facility] chloride 5 chloride 5 chloride 5 [facility] mg tablet mg tablet mg tablet dic [facility] potassium potassium No potassium [facility] chloride ER chloride ER chloride [facility] 20 mEq 20 mEq ER 20 mEq dic tablet,exte tablet,exte tablet,ext Sports nded nded ended [facility] release release release e TAKE 1 TAKE 1 TAKE 1 TABLET BY TABLET BY TABLET BY MOUTH DAILY MOUTH DAILY MOUTH DAILY potassium potassium No potassium [facility] chloride ER chloride ER chloride [facility] 20 mEq 20 mEq ER 20 mEq dic tablet,exte tablet,exte tablet,ext Sports nded nded ended [facility] release(par release(par release(pa e t/cryst) t/cryst) rt/cryst) TAKE 1 TAKE 1 TAKE 1 TABLET BY TABLET BY TABLET BY MOUTH EVERY MOUTH EVERY MOUTH DAY WITH DAY WITH EVERY DAY FOOD FOOD WITH FOOD spironolact spironolact No spironolac [facility] one 25 mg one 25 mg tone 25 mg [facility] tablet TAKE tablet TAKE tablet dic 1/2 TABLET 1/2 TABLET TAKE 1/2 Sports BY MOUTH BY MOUTH TABLET BY Me dicin EVERY DAY EVERY DAY MOUTH e EVERY DAY terazosin 1 terazosin 1 No terazosin [facility] mg capsule mg capsule 1 mg [facility] capsule [facility] Xarelto 20 Xarelto 20 No Xarelto 20 [facility] mg tablet mg tablet mg tablet [facility] albuterol albuterol No albuterol [facility] sulfate HFA sulfate HFA sulfate [facility] 90 90 HFA 90 dic mcg/actuati mcg/actuati mcg/actuat Sports on aerosol on aerosol ion [facility] ic[facility] inhaler inhaler aerosol e inhaler amlodipine amlodipine No amlodipine N[facility] 10 mg 10 mg 10 mg [facility] tablet TAKE tablet TAKE tablet dic 1 TABLET BY 1 TABLET BY TAKE 1 Sports MOUTH EVERY MOUTH EVERY TABLET BY [facility] DAY DAY MOUTH e EVERY DAY atorvastati atorvastati No atorvastat N[facility] n 20 mg n 20 mg in 20 mg [facility] pe tablet TAKE tablet TAKE tablet dic 1 TABLET BY 1 TABLET BY TAKE 1 Sports MOUTH MOUTH TABLET BY [facility] EVERYDAY AT EVERYDAY AT MOUTH e BEDTIME BEDTIME EVERYDAY AT BEDTIME buspirone buspirone No buspirone [facility] 10 mg 10 mg 10 mg [facility] tablet tablet tablet dic [facility] carvedilol carvedilol No carvedilol [facility] 12.5 mg 12.5 mg 12.5 mg [facility] tablet TAKE tablet TAKE tablet dic 1 TABLET BY 1 TABLET BY TAKE 1 Sports MOUTH TWICE MOUTH TWICE TABLET BY [facility] A DAY WITH A DAY WITH MOUTH e FOOD FOOD TWICE A DAY WITH FOOD cyclobenzap cyclobenzap No cyclobenza N[facility]da rine 5 mg rine 5 mg caroline 5 mg [facility] tablet TAKE tablet TAKE tablet dic 1 TABLET BY 1 TABLET BY TAKE 1 Sports MOUTH THREE MOUTH THREE TABLET BY [facility] TIMES A DAY TIMES A DAY MOUTH e FOR 7 DAYS FOR 7 DAYS THREE TIMES A DAY FOR 7 DAYS diclofenac diclofenac No diclofenac [facility] sodium 75 sodium 75 sodium 75 [facility] mg mg mg dic tablet,roberta tablet,roberta tablet,del Sports yed release yed release ayed M edicin TAKE 1 TAKE 1 release e TABLET BY TABLET BY TAKE 1 MOUTH TWICE MOUTH TWICE TABLET BY A DAY A DAY MOUTH TWICE A DAY Eliquis 2.5 Eliquis 2.5 No Eliquis [facility] mg tablet mg tablet 2.5 mg [facility] TAKE 1 TAKE 1 tablet dic TABLET BY TABLET BY TAKE 1 [facility] r[facility] MOUTH TWICE MOUTH TWICE TABLET BY [facility] A DAY A DAY MOUTH e TWICE A DAY fluticasone fluticasone No fluticason [facility] propionate propionate e [facility] 50 50 propionate dic mcg/actuati mcg/actuati 50 S ports on nasal on nasal mcg/actuat M edicin spray,suspe spray,suspe ion nasal e nsion SPRAY nsion SPRAY spray,susp 1 SPRAY 1 SPRAY ension INTO EACH INTO EACH SPRAY 1 NOSTRIL NOSTRIL SPRAY INTO EVERY DAY EVERY DAY EACH NOSTRIL EVERY DAY furosemide furosemide No furosemide [facility] 20 mg 20 mg 20 mg [facility] tablet TAKE tablet TAKE tablet dic 1 TABLET BY 1 TABLET BY TAKE 1 Sports MOUTH EVERY MOUTH EVERY TABLET BY [facility] DAY DAY MOUTH e NEEDED NEEDED EVERY DAY NEEDED furosemide furosemide No furosemide N[facility]da 40 mg 40 mg 40 mg [facility] tablet TAKE tablet TAKE tablet dic 1 TABLET BY 1 TABLET BY TAKE 1 Sports MOUTH EVERY MOUTH EVERY TABLET BY [facility] DAY DAY MOUTH e EVERY DAY furosemide furosemide No furosemide N[facility]da 80 mg 80 mg 80 mg [facility] tablet TAKE tablet TAKE tablet dic 1 TABLET BY 1 TABLET BY TAKE 1 Sports MOUTH EVERY MOUTH EVERY TABLET BY [facility] DAY DAY MOUTH e EVERY DAY gabapentin gabapentin No gabapentin [facility] 100 mg 100 mg 100 mg [facility] capsule capsule capsule dic TAKE 1 TAKE 1 TAKE 1 Sports CAPSULE BY CAPSULE BY CAPSULE BY [facility] MOUTH TWICE MOUTH TWICE MOUTH e A DAY A DAY TWICE A DAY hydralazine hydralazine No hydralazin N[facility]da 25 mg 25 mg e 25 mg [facility] tablet TAKE tablet TAKE tablet dic 1 TABLET BY 1 TABLET BY TAKE 1 Sports MOUTH EVERY MOUTH EVERY TABLET BY [facility] 8 HOURS 8 HOURS MOUTH e EVERY 8 HOURS ketoconazol ketoconazol No ketoconazo Nelda e 2 % e 2 % le 2 % [facility] shampoo shampoo shampoo dic APPLY TO APPLY TO APPLY TO Spo rts SCALP TO SCALP TO SCALP TO Med icin WASH TWICE WASH TWICE WASH TWICE e A WEEK FOR A WEEK FOR A WEEK FOR 4 WEEKS, 4 WEEKS, 4 WEEKS, THEN APPLY THEN APPLY THEN APPLY ONCE EVERY ONCE EVERY ONCE EVERY 1 TO 2 1 TO 2 1 TO 2 WEEKS WEEKS WEEKS lisinopril lisinopril No lisinopril [facility]da 10 mg 10 mg 10 mg [facility] tablet TAKE tablet TAKE tablet dic 1 TABLET 1 TABLET TAKE 1 Sport s DAILY BY DAILY BY TABLET Medic in MOUTH MOUTH DAILY BY e MOUTH lisinopril lisinopril No lisinopril [facility]da 20 mg 20 mg 20 mg [facility] tablet TAKE tablet TAKE tablet dic 1 TABLET BY 1 TABLET BY TAKE 1 Sports MOUTH EVERY MOUTH EVERY TABLET BY [facility] DAY DAY MOUTH e EVERY DAY memantine memantine No memantine N[facility]da 10 mg 10 mg 10 mg [facility] tablet tablet tablet dic [facility] metoprolol metoprolol No metoprolol N[facility]da tartrate 25 tartrate 25 tartrate [facility] mg tablet mg tablet 25 mg dic tablet [facility] metoprolol metoprolol No metoprolol N[facility]da tartrate 50 tartrate 50 tartrate [facility] mg tablet mg tablet 50 mg dic TAKE 1 TAKE 1 tablet Sports TABLET BY TABLET BY TAKE 1 Med icin MOUTH TWICE MOUTH TWICE TABLET BY e A DAY WITH A DAY WITH MOUTH MEALS MEALS TWICE A DAY WITH MEALS mupirocin 2 mupirocin 2 No mupirocin Nelda % topical % topical 2 % [facility] pe ointment ointment topical dic APPLY TO APPLY TO ointment Spo rts NOSTRILS AT NOSTRILS AT APPLY TO Medic[facility] BED TIME BED TIME NOSTRILS e FOR 2 FOR 2 AT BED WEEKS. WEEKS. TIME FOR 2 WEEKS. oxybutynin oxybutynin No oxybutynin [facility] chloride 5 chloride 5 chloride 5 [facility] mg tablet mg tablet mg tablet dic [facility] potassium potassium No potassium [facility] chloride ER chloride ER chloride [facility] 20 mEq 20 mEq ER 20 mEq dic tablet,exte tablet,exte tablet,ext Sports nded nded ended Medicin release release release e TAKE 1 TAKE 1 TAKE 1 TABLET BY TABLET BY TABLET BY MOUTH DAILY MOUTH DAILY MOUTH DAILY potassium potassium No potassium [facility] chloride ER chloride ER chloride [facility] 20 mEq 20 mEq ER 20 mEq dic tablet,exte tablet,exte tablet,ext Sports nded nded ended Medicin release(par release(par release(pa e t/cryst) t/cryst) rt/cryst) TAKE 1 TAKE 1 TAKE 1 TABLET BY TABLET BY TABLET BY MOUTH EVERY MOUTH EVERY MOUTH DAY WITH DAY WITH EVERY DAY FOOD FOOD WITH FOOD spironolact spironolact No spironolac [facility] one 25 mg one 25 mg tone 25 mg [facility] tablet TAKE tablet TAKE tablet dic 1/2 TABLET 1/2 TABLET TAKE 1/2 Sports BY MOUTH BY MOUTH TABLET BY Me dicin EVERY DAY EVERY DAY MOUTH e EVERY DAY terazosin 1 terazosin 1 No terazosin [facility] mg capsule mg capsule 1 mg [facility] capsule dic [facility] tramadol 50 tramadol 50 No tramadol [facility] mg tablet mg tablet 50 mg [facility] TAKE 1 TAKE 1 tablet dic TABLET BY TABLET BY TAKE 1 Spo rts MOUTH EVERY MOUTH EVERY TABLET BY Medic[facility] 6 HOURS 6 HOURS MOUTH e NEEDED NEEDED EVERY 6 HOURS NEEDED Xarelto 20 Xarelto 20 No Xarelto 20 [facility] mg tablet mg tablet mg tablet [facility] albuterol albuterol No albuterol [facility] sulfate HFA sulfate HFA sulfate [facility] 90 90 HFA 90 dic mcg/actuati mcg/actuati mcg/actuat Sports on aerosol on aerosol ion [facility] ic[facility] inhaler inhaler aerosol e inhaler amlodipine amlodipine No amlodipine [facility] 10 mg 10 mg 10 mg [facility] tablet TAKE tablet TAKE tablet dic 1 TABLET BY 1 TABLET BY TAKE 1 Sports MOUTH EVERY MOUTH EVERY TABLET BY [facility] DAY DAY MOUTH e EVERY DAY atorvastati atorvastati No atorvastat [facility] n 20 mg n 20 mg in 20 mg [facility] pe tablet TAKE tablet TAKE tablet dic 1 TABLET BY 1 TABLET BY TAKE 1 Sports MOUTH MOUTH TABLET BY [facility] EVERYDAY AT EVERYDAY AT MOUTH e BEDTIME BEDTIME EVERYDAY AT BEDTIME buspirone buspirone No buspirone [facility] 10 mg 10 mg 10 mg [facility] tablet tablet tablet dic [facility] carvedilol carvedilol No carvedilol [facility] 12.5 mg 12.5 mg 12.5 mg [facility] tablet TAKE tablet TAKE tablet dic 1 TABLET BY 1 TABLET BY TAKE 1 Sports MOUTH TWICE MOUTH TWICE TABLET BY Medic[facility] A DAY WITH A DAY WITH MOUTH e FOOD FOOD TWICE A DAY WITH FOOD cyclobenzap cyclobenzap No cyclobenza N[facility]da rine 5 mg rine 5 mg caroline 5 mg [facility] tablet TAKE tablet TAKE tablet dic 1 TABLET BY 1 TABLET BY TAKE 1 Sports MOUTH THREE MOUTH THREE TABLET BY [facility] TIMES A DAY TIMES A DAY MOUTH e FOR 7 DAYS FOR 7 DAYS THREE TIMES A DAY FOR 7 DAYS diclofenac diclofenac No diclofenac [facility] sodium 75 sodium 75 sodium 75 [facility] mg mg mg dic tablet,roberta tablet,roberta tablet,del Sports yed release yed release ayed M edicin TAKE 1 TAKE 1 release e TABLET BY TABLET BY TAKE 1 MOUTH TWICE MOUTH TWICE TABLET BY A DAY A DAY MOUTH TWICE A DAY Eliquis 2.5 Eliquis 2.5 No Eliquis [facility] mg tablet mg tablet 2.5 mg [facility] TAKE 1 TAKE 1 tablet dic TABLET BY TABLET BY TAKE 1 Spo rts MOUTH TWICE MOUTH TWICE TABLET BY Medic[facility] A DAY A DAY MOUTH e TWICE A DAY fluticasone fluticasone No fluticason [facility] propionate propionate e [facility] 50 50 propionate dic mcg/actuati mcg/actuati 50 S ports on nasal on nasal mcg/actuat M edicin spray,suspe spray,suspe ion nasal e nsion SPRAY nsion SPRAY spray,susp 1 SPRAY 1 SPRAY ension INTO EACH INTO EACH SPRAY 1 NOSTRIL NOSTRIL SPRAY INTO EVERY DAY EVERY DAY EACH NOSTRIL EVERY DAY furosemide furosemide No furosemide [facility] 20 mg 20 mg 20 mg [facility] tablet TAKE tablet TAKE tablet dic 1 TABLET BY 1 TABLET BY TAKE 1 Sports MOUTH EVERY MOUTH EVERY TABLET BY [facility] DAY DAY MOUTH e NEEDED NEEDED EVERY DAY NEEDED furosemide furosemide No furosemide [facility] 40 mg 40 mg 40 mg [facility] tablet TAKE tablet TAKE tablet dic 1 TABLET BY 1 TABLET BY TAKE 1 Sports MOUTH EVERY MOUTH EVERY TABLET BY [facility] DAY DAY MOUTH e EVERY DAY furosemide furosemide No furosemide [facility] 80 mg 80 mg 80 mg [facility] tablet TAKE tablet TAKE tablet dic 1 TABLET BY 1 TABLET BY TAKE 1 Sports MOUTH EVERY MOUTH EVERY TABLET BY [facility] DAY DAY MOUTH e EVERY DAY gabapentin gabapentin No gabapentin [facility] 100 mg 100 mg 100 mg [facility] capsule capsule capsule dic TAKE 1 TAKE 1 TAKE 1 Sports CAPSULE BY CAPSULE BY CAPSULE BY [facility] MOUTH TWICE MOUTH TWICE MOUTH e A DAY A DAY TWICE A DAY hydralazine hydralazine No hydralazin [facility] 25 mg 25 mg e 25 mg [facility] tablet TAKE tablet TAKE tablet dic 1 TABLET BY 1 TABLET BY TAKE 1 Sports MOUTH EVERY MOUTH EVERY TABLET BY [facility] 8 HOURS 8 HOURS MOUTH e EVERY 8 HOURS ketoconazol ketoconazol No ketoconazo Nelda e 2 % e 2 % le 2 % [facility] shampoo shampoo shampoo dic APPLY TO APPLY TO APPLY TO Spo rts SCALP TO SCALP TO SCALP TO Med icin WASH TWICE WASH TWICE WASH TWICE e A WEEK FOR A WEEK FOR A WEEK FOR 4 WEEKS, 4 WEEKS, 4 WEEKS, THEN APPLY THEN APPLY THEN APPLY ONCE EVERY ONCE EVERY ONCE EVERY 1 TO 2 1 TO 2 1 TO 2 WEEKS WEEKS WEEKS lisinopril lisinopril No lisinopril [facility] 10 mg 10 mg 10 mg [facility] tablet TAKE tablet TAKE tablet dic 1 TABLET 1 TABLET TAKE 1 Sport s DAILY BY DAILY BY TABLET Medic in MOUTH MOUTH DAILY BY e MOUTH lisinopril lisinopril No lisinopril [facility] 20 mg 20 mg 20 mg [facility] tablet TAKE tablet TAKE tablet dic 1 TABLET BY 1 TABLET BY TAKE 1 Sports MOUTH EVERY MOUTH EVERY TABLET BY [facility] DAY DAY MOUTH e EVERY DAY memantine memantine No memantine N[facility] 10 mg 10 mg 10 mg [facility] tablet tablet tablet dic [facility] metoprolol metoprolol No metoprolol [facility] tartrate 25 tartrate 25 tartrate [facility] mg tablet mg tablet 25 mg dic tablet [facility] metoprolol metoprolol No metoprolol [facility] tartrate 50 tartrate 50 tartrate [facility] mg tablet mg tablet 50 mg dic TAKE 1 TAKE 1 tablet Sports TABLET BY TABLET BY TAKE 1 Med icin MOUTH TWICE MOUTH TWICE TABLET BY e A DAY WITH A DAY WITH MOUTH MEALS MEALS TWICE A DAY WITH MEALS mupirocin 2 mupirocin 2 No mupirocin [facility] % topical % topical 2 % [facility] ointment ointment topical dic APPLY TO APPLY TO ointment Spo rts NOSTRILS AT NOSTRILS AT APPLY TO [facility] BED TIME BED TIME NOSTRILS e FOR 2 FOR 2 AT BED WEEKS. WEEKS. TIME FOR 2 WEEKS. oxybutynin oxybutynin No oxybutynin [facility] chloride 5 chloride 5 chloride 5 [facility] mg tablet mg tablet mg tablet dic [facility] potassium potassium No potassium [facility] chloride ER chloride ER chloride [facility] 20 mEq 20 mEq ER 20 mEq dic tablet,exte tablet,exte tablet,ext Sports nded nded ended [facility] release release release e TAKE 1 TAKE 1 TAKE 1 TABLET BY TABLET BY TABLET BY MOUTH DAILY MOUTH DAILY MOUTH DAILY potassium potassium No potassium [facility] chloride ER chloride ER chloride [facility] 20 mEq 20 mEq ER 20 mEq dic tablet,exte tablet,exte tablet,ext Sports nded nded ended [facility] release(par release(par release(pa e t/cryst) t/cryst) rt/cryst) TAKE 1 TAKE 1 TAKE 1 TABLET BY TABLET BY TABLET BY MOUTH EVERY MOUTH EVERY MOUTH DAY WITH DAY WITH EVERY DAY FOOD FOOD WITH FOOD spironolact spironolact No spironolac [facility] one 25 mg one 25 mg tone 25 mg [facility] tablet TAKE tablet TAKE tablet dic 1/2 TABLET 1/2 TABLET TAKE 1/2 Sports BY MOUTH BY MOUTH TABLET BY Wi dicin EVERY DAY EVERY DAY MOUTH e EVERY DAY terazosin 1 terazosin 1 No terazosin [facility] mg capsule mg capsule 1 mg [facility] capsule dic [facility] tramadol 50 tramadol 50 No tramadol [facility] mg tablet mg tablet 50 mg [facility] TAKE 1 TAKE 1 tablet dic TABLET BY TABLET BY TAKE 1 Spo rts MOUTH EVERY MOUTH EVERY TABLET BY [facility] 6 HOURS 6 HOURS MOUTH e NEEDED NEEDED EVERY 6 HOURS NEEDED Xarelto 20 Xarelto 20 No Xarelto 20 [facility] mg tablet mg tablet mg tablet [facility] albuterol albuterol No albuterol [facility] sulfate HFA sulfate HFA sulfate [facility] 90 90 HFA 90 dic mcg/actuati mcg/actuati mcg/actuat [facility] on aerosol on aerosol ion [facility] inhaler inhaler aerosol e INHALE 2 INHALE 2 inhaler PUFFS BY PUFFS BY INHALE 2 MOUTH EVERY MOUTH EVERY PUFFS BY 6 HOURS 6 HOURS MOUTH NEEDED FOR NEEDED FOR EVERY 6 WHEEZING WHEEZING HOURS NEEDED FOR WHEEZING amlodipine amlodipine No amlodipine [facility] 10 mg 10 mg 10 mg [facility] tablet TAKE tablet TAKE tablet dic 1 TABLET BY 1 TABLET BY TAKE 1 Sports MOUTH EVERY MOUTH EVERY TABLET BY [facility] DAY DAY MOUTH e EVERY DAY aspirin 81 aspirin 81 No aspirin 81 [facility] mg mg mg [facility] tablet,roberta tablet,roberta tablet,del dic yed release yed release ayed S ports TAKE 1 TAKE 1 release [facility] TABLET BY TABLET BY TAKE 1 e MOUTH EVERY MOUTH EVERY TABLET BY DAY DAY MOUTH EVERY DAY atorvastati atorvastati No atorvastat [facility] n 20 mg n 20 mg in 20 mg [facility] pe tablet TAKE tablet TAKE tablet dic 1 TABLET BY 1 TABLET BY TAKE 1 Sports MOUTH DAILY MOUTH DAILY TABLET BY [facility] MOUTH e DAILY buspirone buspirone No buspirone N[facility]da 10 mg 10 mg 10 mg [facility] tablet TAKE tablet TAKE tablet dic 1 TABLET BY 1 TABLET BY TAKE 1 Sports MOUTH TWICE MOUTH TWICE TABLET BY [facility] DAILY DAILY MOUTH e TWICE DAILY carvedilol carvedilol No carvedilol [facility] 12.5 mg 12.5 mg 12.5 mg [facility] tablet TAKE tablet TAKE tablet dic 1 TABLET BY 1 TABLET BY TAKE 1 Sports MOUTH TWICE MOUTH TWICE TABLET BY [facility] DAILY DAILY MOUTH e TWICE DAILY cyclobenzap cyclobenzap No cyclobenza [facility] rine 5 mg rine 5 mg caroline 5 mg [facility] tablet TAKE tablet TAKE tablet dic 1 TABLET BY 1 TABLET BY TAKE 1 Sports MOUTH THREE MOUTH THREE TABLET BY [facility] TIMES A DAY TIMES A DAY MOUTH e FOR 7 DAYS FOR 7 DAYS THREE TIMES A DAY FOR 7 DAYS diclofenac diclofenac No diclofenac [facility] sodium 75 sodium 75 sodium 75 [facility] mg mg mg dic tablet,roberta tablet,roberta tablet,del Sports yed release yed release ayed M edicin TAKE 1 TAKE 1 release e TABLET BY TABLET BY TAKE 1 MOUTH TWICE MOUTH TWICE TABLET BY A DAY A DAY MOUTH TWICE A DAY Eliquis 2.5 Eliquis 2.5 No Eliquis [facility] mg tablet mg tablet 2.5 mg [facility] TAKE 1 TAKE 1 tablet dic TABLET BY TABLET BY TAKE 1 Spo rts MOUTH TWICE MOUTH TWICE TABLET BY [facility] A DAY A DAY MOUTH e TWICE A DAY fluticasone fluticasone No fluticason [facility] propionate propionate e [facility] 50 50 propionate dic mcg/actuati mcg/actuati 50 S ports on nasal on nasal mcg/actuat M edicin spray,suspe spray,suspe ion nasal e nsion SPRAY nsion SPRAY spray,susp 1 SPRAY 1 SPRAY ension INTO EACH INTO EACH SPRAY 1 NOSTRIL NOSTRIL SPRAY INTO EVERY DAY EVERY DAY EACH NOSTRIL EVERY DAY furosemide furosemide No furosemide [facility] 20 mg 20 mg 20 mg [facility] tablet TAKE tablet TAKE tablet dic 1 TABLET BY 1 TABLET BY TAKE 1 Sports MOUTH EVERY MOUTH EVERY TABLET BY [facility] DAY DAY MOUTH e NEEDED NEEDED EVERY DAY NEEDED furosemide furosemide No furosemide [facility] 40 mg 40 mg 40 mg [facility] tablet TAKE tablet TAKE tablet dic 1 TABLET BY 1 TABLET BY TAKE 1 Sports MOUTH EVERY MOUTH EVERY TABLET BY [facility] DAY DAY MOUTH e EVERY DAY furosemide furosemide No furosemide [facility] 80 mg 80 mg 80 mg [facility] tablet TAKE tablet TAKE tablet dic 1 TABLET BY 1 TABLET BY TAKE 1 Sports MOUTH EVERY MOUTH EVERY TABLET BY [facility] DAY DAY MOUTH e EVERY DAY gabapentin gabapentin No gabapentin [facility] 100 mg 100 mg 100 mg [facility] capsule capsule capsule dic TAKE 1 TAKE 1 TAKE 1 Sports CAPSULE BY CAPSULE BY CAPSULE BY [facility] MOUTH TWICE MOUTH TWICE MOUTH e DAILY DAILY TWICE DAILY hydralazine hydralazine No hydralazin [facility] 100 mg 100 mg e 100 mg [facility] tablet TAKE tablet TAKE tablet dic 1 TABLET BY 1 TABLET BY TAKE 1 Sports MOUTH EVERY MOUTH EVERY TABLET BY [facility] 8 HOURS 8 HOURS MOUTH e EVERY 8 HOURS hydralazine hydralazine No hydralazin [facility] 25 mg 25 mg e 25 mg [facility] tablet TAKE tablet TAKE tablet dic 1 TABLET BY 1 TABLET BY TAKE 1 Sports MOUTH EVERY MOUTH EVERY TABLET BY [facility] 8 HOURS 8 HOURS MOUTH e EVERY 8 HOURS ketoconazol ketoconazol No ketoconazo [facility] e 2 % e 2 % le 2 % [facility] shampoo shampoo shampoo dic APPLY TO APPLY TO APPLY TO Spo rts SCALP TO SCALP TO SCALP TO Med icin WASH TWICE WASH TWICE WASH TWICE e A WEEK FOR A WEEK FOR A WEEK FOR 4 WEEKS, 4 WEEKS, 4 WEEKS, THEN APPLY THEN APPLY THEN APPLY ONCE EVERY ONCE EVERY ONCE EVERY 1 TO 2 1 TO 2 1 TO 2 WEEKS WEEKS WEEKS lisinopril lisinopril No lisinopril [facility] 10 mg 10 mg 10 mg [facility] tablet TAKE tablet TAKE tablet dic 1 TABLET 1 TABLET TAKE 1 Sport s DAILY BY DAILY BY TABLET Medic in MOUTH MOUTH DAILY BY e MOUTH lisinopril lisinopril No lisinopril [facility] 20 mg 20 mg 20 mg [facility] tablet TAKE tablet TAKE tablet dic 2 TABLETS 2 TABLETS TAKE 2 Spo rts BY MOUTH BY MOUTH TABLETS BY Jaylen traore DAILY DAILY MOUTH e DAILY memantine memantine No memantine N[facility]da 10 mg 10 mg 10 mg [facility] tablet tablet tablet dic [facility] methocarbam methocarbam No methocarba [facility] ol 500 mg ol 500 mg mol 500 mg [facility] tablet TAKE tablet TAKE tablet dic 1 TABLET BY 1 TABLET BY TAKE 1 Sports MOUTH THREE MOUTH THREE TABLET BY [facility] TIMES DAILY TIMES DAILY MOUTH e NEEDED NEEDED THREE FOR SPASMS FOR SPASMS TIMES FOR 5 DAYS FOR 5 DAYS DAILY NEEDED FOR SPASMS FOR 5 DAYS metoprolol metoprolol No metoprolol [facility] tartrate 25 tartrate 25 tartrate [facility] mg tablet mg tablet 25 mg dic tablet Sports [facility] e metoprolol metoprolol No metoprolol [facility] tartrate 50 tartrate 50 tartrate [facility] mg tablet mg tablet 50 mg dic TAKE 1 TAKE 1 tablet Sports TABLET BY TABLET BY TAKE 1 Med icin MOUTH TWICE MOUTH TWICE TABLET BY e A DAY WITH A DAY WITH MOUTH MEALS MEALS TWICE A DAY WITH MEALS mupirocin 2 mupirocin 2 No mupirocin Nelda % topical % topical 2 % [facility] ointment ointment topical dic APPLY TO APPLY TO ointment Spo rts NOSTRILS AT NOSTRILS AT APPLY TO [facility] BED TIME BED TIME NOSTRILS e FOR 2 FOR 2 AT BED WEEKS. WEEKS. TIME FOR 2 WEEKS. oxybutynin oxybutynin No oxybutynin [facility] chloride 5 chloride 5 chloride 5 [facility] mg tablet mg tablet mg tablet dic [facility] pantoprazol pantoprazol No pantoprazo [facility] e 40 mg e 40 mg le 40 mg [facility] pe tablet,roberta tablet,roberta tablet,del dic yed release yed release ayed S ports TAKE 1 TAKE 1 release [facility] TABLET BY TABLET BY TAKE 1 e MOUTH DAILY MOUTH DAILY TABLET BY MOUTH DAILY potassium potassium No potassium [facility] chloride ER chloride ER chloride [facility] 20 mEq 20 mEq ER 20 mEq dic tablet,exte tablet,exte tablet,ext Sports nded nded ended [facility] release release release e TAKE 1 TAKE 1 TAKE 1 TABLET BY TABLET BY TABLET BY MOUTH DAILY MOUTH DAILY MOUTH DAILY potassium potassium No potassium [facility] chloride ER chloride ER chloride [facility] 20 mEq 20 mEq ER 20 mEq dic tablet,exte tablet,exte tablet,ext Sports nded nded ended [facility] release(par release(par release(pa e t/cryst) t/cryst) rt/cryst) TAKE 1 TAKE 1 TAKE 1 TABLET BY TABLET BY TABLET BY MOUTH EVERY MOUTH EVERY MOUTH DAY WITH DAY WITH EVERY DAY FOOD FOOD WITH FOOD spironolact spironolact No spironolac [facility] one 25 mg one 25 mg tone 25 mg [facility] tablet TAKE tablet TAKE tablet dic 1/2 TABLET 1/2 TABLET TAKE 1/2 Sports BY MOUTH BY MOUTH TABLET BY Me dicin EVERY DAY EVERY DAY MOUTH e EVERY DAY terazosin 1 terazosin 1 No terazosin [facility] mg capsule mg capsule 1 mg [facility] capsule dic [facility] tramadol 50 tramadol 50 No tramadol [facility] mg tablet mg tablet 50 mg [facility] TAKE 1 TAKE 1 tablet dic TABLET BY TABLET BY TAKE 1 Spo rts MOUTH EVERY MOUTH EVERY TABLET BY [facility] 6 HOURS 6 HOURS MOUTH e NEEDED NEEDED EVERY 6 HOURS NEEDED Xarelto 20 Xarelto 20 No Xarelto 20 [facility] mg tablet mg tablet mg tablet [facility] albuterol albuterol No albuterol [facility] sulfate HFA sulfate HFA sulfate [facility] 90 90 HFA 90 dic mcg/actuati mcg/actuati mcg/actuat Sports on aerosol on aerosol ion Med icin inhaler inhaler aerosol e INHALE 2 INHALE 2 inhaler PUFFS BY PUFFS BY INHALE 2 MOUTH EVERY MOUTH EVERY PUFFS BY 6 HOURS 6 HOURS MOUTH NEEDED FOR NEEDED FOR EVERY 6 WHEEZING WHEEZING HOURS NEEDED FOR WHEEZING amlodipine amlodipine No amlodipine [facility] 10 mg 10 mg 10 mg [facility] tablet TAKE tablet TAKE tablet dic 1 TABLET BY 1 TABLET BY TAKE 1 Sports MOUTH EVERY MOUTH EVERY TABLET BY [facility] DAY DAY MOUTH e EVERY DAY aspirin 81 aspirin 81 No aspirin 81 [facility] mg mg mg [facility] tablet,roberta tablet,roberta tablet,del dic yed release yed release mario stevenson TAKE 1 TAKE 1 release [facility] TABLET BY TABLET BY TAKE 1 e MOUTH EVERY MOUTH EVERY TABLET BY DAY DAY MOUTH EVERY DAY atorvastati atorvastati No atorvastat [facility] n 20 mg n 20 mg in 20 mg [facility] pe tablet TAKE tablet TAKE tablet dic 1 TABLET BY 1 TABLET BY TAKE 1 Sports MOUTH DAILY MOUTH DAILY TABLET BY [facility] MOUTH e DAILY buspirone buspirone No buspirone N[facility] 10 mg 10 mg 10 mg [facility] tablet TAKE tablet TAKE tablet dic 1 TABLET BY 1 TABLET BY TAKE 1 Sports MOUTH TWICE MOUTH TWICE TABLET BY [facility] DAILY DAILY MOUTH e TWICE DAILY carvedilol carvedilol No carvedilol [facility] 12.5 mg 12.5 mg 12.5 mg [facility] tablet TAKE tablet TAKE tablet dic 1 TABLET BY 1 TABLET BY TAKE 1 Sports MOUTH TWICE MOUTH TWICE TABLET BY [facility] DAILY DAILY MOUTH e TWICE DAILY cyclobenzap cyclobenzap No cyclobenza [facility] rine 5 mg rine 5 mg caroline 5 mg [facility] tablet TAKE tablet TAKE tablet dic 1 TABLET BY 1 TABLET BY TAKE 1 Sports MOUTH THREE MOUTH THREE TABLET BY [facility] TIMES A DAY TIMES A DAY MOUTH e FOR 7 DAYS FOR 7 DAYS THREE TIMES A DAY FOR 7 DAYS diclofenac diclofenac No diclofenac [facility] sodium 75 sodium 75 sodium 75 [facility] mg mg mg dic tablet,roberta tablet,roberta tablet,del Sports yed release yed release mario traore TAKE 1 TAKE 1 release e TABLET BY TABLET BY TAKE 1 MOUTH TWICE MOUTH TWICE TABLET BY A DAY A DAY MOUTH TWICE A DAY albuterol albuterol No albuterol [facility] sulfate HFA sulfate HFA sulfate [facility] 90 90 HFA 90 dic mcg/actuati mcg/actuati mcg/actuat [facility] on aerosol on aerosol ion Med icin inhaler inhaler aerosol e inhaler Eliquis 2.5 Eliquis 2.5 No Eliquis [facility] mg tablet mg tablet 2.5 mg [facility] TAKE 1 TAKE 1 tablet dic TABLET BY TABLET BY TAKE 1 Spo rts MOUTH TWICE MOUTH TWICE TABLET BY [facility] A DAY A DAY MOUTH e TWICE A DAY fluticasone fluticasone No fluticason [facility] propionate propionate e [facility] 50 50 propionate dic mcg/actuati mcg/actuati 50 S ports on nasal on nasal mcg/actuat M edicin spray,suspe spray,suspe ion nasal e nsion SPRAY nsion SPRAY spray,susp 1 SPRAY 1 SPRAY ension INTO EACH INTO EACH SPRAY 1 NOSTRIL NOSTRIL SPRAY INTO EVERY DAY EVERY DAY EACH NOSTRIL EVERY DAY furosemide furosemide No furosemide [facility] 20 mg 20 mg 20 mg [facility] tablet TAKE tablet TAKE tablet dic 1 TABLET BY 1 TABLET BY TAKE 1 Sports MOUTH EVERY MOUTH EVERY TABLET BY [facility] DAY DAY MOUTH e NEEDED NEEDED EVERY DAY NEEDED furosemide furosemide No furosemide [facility] 40 mg 40 mg 40 mg [facility] tablet TAKE tablet TAKE tablet dic 1 TABLET BY 1 TABLET BY TAKE 1 Sports MOUTH EVERY MOUTH EVERY TABLET BY [facility] DAY MOUTH e EVERY DAY furosemide furosemide No furosemide [facility] 80 mg 80 mg 80 mg [facility] tablet TAKE tablet TAKE tablet dic 1 TABLET BY 1 TABLET BY TAKE 1 Sports MOUTH EVERY MOUTH EVERY TABLET BY [facility] MOUTH e EVERY DAY gabapentin gabapentin No gabapentin [facility] 100 mg 100 mg 100 mg [facility] capsule capsule capsule dic TAKE 1 TAKE 1 TAKE 1 Sports CAPSULE BY CAPSULE BY CAPSULE BY [facility] MOUTH TWICE MOUTH TWICE MOUTH e DAILY DAILY TWICE DAILY hydralazine hydralazine No hydralazin [facility] 100 mg 100 mg e 100 mg [facility] tablet TAKE tablet TAKE tablet dic 1 TABLET BY 1 TABLET BY TAKE 1 Sports MOUTH EVERY MOUTH EVERY TABLET BY [facility] 8 HOURS 8 HOURS MOUTH e EVERY 8 HOURS hydralazine hydralazine No hydralazin [facility] 25 mg 25 mg e 25 mg [facility] tablet TAKE tablet TAKE tablet dic 1 TABLET BY 1 TABLET BY TAKE 1 Sports MOUTH EVERY MOUTH EVERY TABLET BY [facility] 8 HOURS 8 HOURS MOUTH e EVERY 8 HOURS ketoconazol ketoconazol No ketoconazo N[facility]da e 2 % e 2 % le 2 % [facility] shampoo shampoo shampoo dic APPLY TO APPLY TO APPLY TO Spo rts SCALP TO SCALP TO SCALP TO Med icin WASH TWICE WASH TWICE WASH TWICE e A WEEK FOR A WEEK FOR A WEEK FOR 4 WEEKS, 4 WEEKS, 4 WEEKS, THEN APPLY THEN APPLY THEN APPLY ONCE EVERY ONCE EVERY ONCE EVERY 1 TO 2 1 TO 2 1 TO 2 WEEKS WEEKS WEEKS lisinopril lisinopril No lisinopril [facility] 10 mg 10 mg 10 mg [facility] tablet TAKE tablet TAKE tablet dic 1 TABLET 1 TABLET TAKE 1 Sport s DAILY BY DAILY BY TABLET Medic in MOUTH MOUTH DAILY BY e MOUTH atorvastati atorvastati No atorvastat [facility] n 20 mg n 20 mg in 20 mg [facility] pe tablet TAKE tablet TAKE tablet dic 1 TABLET BY 1 TABLET BY TAKE 1 Sports MOUTH MOUTH TABLET BY [facility] EVERYDAY AT EVERYDAY AT MOUTH e BEDTIME BEDTIME EVERYDAY AT BEDTIME lisinopril lisinopril No lisinopril [facility] 20 mg 20 mg 20 mg [facility] tablet TAKE tablet TAKE tablet dic 2 TABLETS 2 TABLETS TAKE 2 Spo rts BY MOUTH BY MOUTH TABLETS BY M edicin DAILY DAILY MOUTH e DAILY memantine memantine No memantine N[facility]da 10 mg 10 mg 10 mg [facility] tablet tablet tablet dic [facility] methocarbam methocarbam No methocarba [facility] ol 500 mg ol 500 mg mol 500 mg [facility] tablet TAKE tablet TAKE tablet dic 1 TABLET BY 1 TABLET BY TAKE 1 Sports MOUTH THREE MOUTH THREE TABLET BY [facility] TIMES DAILY TIMES DAILY MOUTH e NEEDED NEEDED THREE FOR SPASMS FOR SPASMS TIMES FOR 5 DAYS FOR 5 DAYS DAILY NEEDED FOR SPASMS FOR 5 DAYS metoprolol metoprolol No metoprolol [facility] tartrate 25 tartrate 25 tartrate [facility] mg tablet mg tablet 25 mg dic tablet [facility] e metoprolol metoprolol No metoprolol [facility] tartrate 50 tartrate 50 tartrate [facility] mg tablet mg tablet 50 mg dic TAKE 1 TAKE 1 tablet Sports TABLET BY TABLET BY TAKE 1 Med icin MOUTH TWICE MOUTH TWICE TABLET BY e A DAY WITH A DAY WITH MOUTH MEALS MEALS TWICE A DAY WITH MEALS mupirocin 2 mupirocin 2 No mupirocin N[facility]da % topical % topical 2 % [facility] pe ointment ointment topical dic APPLY TO APPLY TO ointment Spo rts NOSTRILS AT NOSTRILS AT APPLY TO Medic[facility] BED TIME BED TIME NOSTRILS e FOR 2 FOR 2 AT BED WEEKS. WEEKS. TIME FOR 2 WEEKS. oxybutynin oxybutynin No oxybutynin [facility] chloride 5 chloride 5 chloride 5 [facility] mg tablet mg tablet mg tablet dic [facility] pantoprazol pantoprazol No pantoprazo [facility] e 40 mg e 40 mg le 40 mg [facility] pe tablet,roberta tablet,roberta tablet,del dic yed release yed release ayed S ports TAKE 1 TAKE 1 release [facility] TABLET BY TABLET BY TAKE 1 e MOUTH DAILY MOUTH DAILY TABLET BY MOUTH DAILY potassium potassium No potassium [facility] chloride ER chloride ER chloride [facility] 20 mEq 20 mEq ER 20 mEq dic tablet,exte tablet,exte tablet,ext Sports nded nded ended [facility] release release release e TAKE 1 TAKE 1 TAKE 1 TABLET BY TABLET BY TABLET BY MOUTH DAILY MOUTH DAILY MOUTH DAILY potassium potassium No potassium [facility] chloride ER chloride ER chloride [facility] 20 mEq 20 mEq ER 20 mEq dic tablet,exte tablet,exte tablet,ext Sports nded nded ended [facility] release(par release(par release(pa e t/cryst) t/cryst) rt/cryst) TAKE 1 TAKE 1 TAKE 1 TABLET BY TABLET BY TABLET BY MOUTH EVERY MOUTH EVERY MOUTH DAY WITH DAY WITH EVERY DAY FOOD FOOD WITH FOOD buspirone buspirone No buspirone [facility] 10 mg 10 mg 10 mg [facility] tablet tablet tablet dic [facility] spironolact spironolact No spironolac N[facility] one 25 mg one 25 mg tone 25 mg [facility] tablet TAKE tablet TAKE tablet dic 1/2 TABLET 1/2 TABLET TAKE 1/2 Sports BY MOUTH BY MOUTH TABLET BY Me dicin EVERY DAY EVERY DAY MOUTH e EVERY DAY terazosin 1 terazosin 1 No terazosin [facility] mg capsule mg capsule 1 mg [facility] capsule dic [facility] tramadol 50 tramadol 50 No tramadol [facility] mg tablet mg tablet 50 mg [facility] TAKE 1 TAKE 1 tablet dic TABLET BY TABLET BY TAKE 1 Spo rts MOUTH EVERY MOUTH EVERY TABLET BY Medic[facility] 6 HOURS 6 HOURS MOUTH e NEEDED NEEDED EVERY 6 HOURS NEEDED Xarelto 20 Xarelto 20 No Xarelto 20 [facility] mg tablet mg tablet mg tablet [facility] carvedilol carvedilol No carvedilol [facility] 12.5 mg 12.5 mg 12.5 mg [facility] tablet TAKE tablet TAKE tablet dic 1 TABLET BY 1 TABLET BY TAKE 1 Sports MOUTH TWICE MOUTH TWICE TABLET BY [facility] A DAY WITH A DAY WITH MOUTH e FOOD FOOD TWICE A DAY WITH FOOD cyclobenzap cyclobenzap No cyclobenza N[facility]da rine 5 mg rine 5 mg caroline 5 mg [facility] tablet TAKE tablet TAKE tablet dic 1 TABLET BY 1 TABLET BY TAKE 1 Sports MOUTH THREE MOUTH THREE TABLET BY [facility] TIMES A DAY TIMES A DAY MOUTH e FOR 7 DAYS FOR 7 DAYS THREE TIMES A DAY FOR 7 DAYS acetaminoph acetaminoph No acetaminop Nleda en 300 en 300 hen 300 [facility] mg-codeine mg-codeine mg-codeine dic 30 mg 30 mg 30 mg [facility] tablet TAKE tablet TAKE tablet Medic[facility] 1 TABLET BY 1 TABLET BY TAKE 1 e MOUTH TWICE MOUTH TWICE TABLET BY DAILY DAILY MOUTH NEEDED NEEDED TWICE DAILY NEEDED albuterol albuterol No albuterol [facility] sulfate HFA sulfate HFA sulfate [facility] 90 90 HFA 90 dic mcg/actuati mcg/actuati mcg/actuat Sports on aerosol on aerosol ion Med icin inhaler inhaler aerosol e INHALE 2 INHALE 2 inhaler PUFFS BY PUFFS BY INHALE 2 MOUTH EVERY MOUTH EVERY PUFFS BY 6 HOURS 6 HOURS MOUTH NEEDED FOR NEEDED FOR EVERY 6 WHEEZING WHEEZING HOURS NEEDED FOR WHEEZING amlodipine amlodipine No amlodipine [facility] 10 mg 10 mg 10 mg [facility] tablet TAKE tablet TAKE tablet dic 1 TABLET BY 1 TABLET BY TAKE 1 Sports MOUTH EVERY MOUTH EVERY TABLET BY Medic[facility] DAY DAY MOUTH e EVERY DAY aspirin 81 aspirin 81 No aspirin 81 [facility] mg mg mg [facility] tablet,roberta tablet,roberta tablet,del dic yed release yed release ayed S ports TAKE 1 TAKE 1 release [facility] TABLET BY TABLET BY TAKE 1 e MOUTH EVERY MOUTH EVERY TABLET BY DAY DAY MOUTH EVERY DAY atorvastati atorvastati No atorvastat [facility] n 20 mg n 20 mg in 20 mg [facility] pe tablet TAKE tablet TAKE tablet dic 1 TABLET BY 1 TABLET BY TAKE 1 Sports MOUTH DAILY MOUTH DAILY TABLET BY Medicin MOUTH e DAILY buspirone buspirone No buspirone N[facility]da 10 mg 10 mg 10 mg [facility] tablet TAKE tablet TAKE tablet dic 1 TABLET BY 1 TABLET BY TAKE 1 Sports MOUTH TWICE MOUTH TWICE TABLET BY Medicin DAILY DAILY MOUTH e TWICE DAILY diclofenac diclofenac No diclofenac [facility] sodium 75 sodium 75 sodium 75 [facility] mg mg mg dic tablet,roberta tablet,roberta tablet,del Sports yed release yed release ayed M edicin TAKE 1 TAKE 1 release e TABLET BY TABLET BY TAKE 1 MOUTH TWICE MOUTH TWICE TABLET BY A DAY A DAY MOUTH TWICE A DAY carvedilol carvedilol No carvedilol [facility] 12.5 mg 12.5 mg 12.5 mg [facility] tablet TAKE tablet TAKE tablet dic 1 TABLET BY 1 TABLET BY TAKE 1 Sports MOUTH TWICE MOUTH TWICE TABLET BY Medic[facility] DAILY DAILY MOUTH e TWICE DAILY cyclobenzap cyclobenzap No cyclobenza [facility] rine 5 mg rine 5 mg caroline 5 mg [facility] tablet TAKE tablet TAKE tablet dic 1 TABLET BY 1 TABLET BY TAKE 1 Sports MOUTH THREE MOUTH THREE TABLET BY [facility] TIMES A DAY TIMES A DAY MOUTH e FOR 7 DAYS FOR 7 DAYS THREE TIMES A DAY FOR 7 DAYS diclofenac diclofenac No diclofenac [facility] sodium 75 sodium 75 sodium 75 [facility] mg mg mg dic tablet,roberta tablet,roberta tablet,del Sports yed release yed release ayed M edicin TAKE 1 TAKE 1 release e TABLET BY TABLET BY TAKE 1 MOUTH TWICE MOUTH TWICE TABLET BY A DAY A DAY MOUTH TWICE A DAY Eliquis 2.5 Eliquis 2.5 No Eliquis [facility] mg tablet mg tablet 2.5 mg [facility] TAKE 1 TAKE 1 tablet dic TABLET BY TABLET BY TAKE 1 Spo rts MOUTH TWICE MOUTH TWICE TABLET BY Medicin A DAY A DAY MOUTH e TWICE A DAY fluticasone fluticasone No fluticason [facility] propionate propionate e [facility] 50 50 propionate dic mcg/actuati mcg/actuati 50 S ports on nasal on nasal mcg/actuat M edicin spray,suspe spray,suspe ion nasal e nsion SPRAY nsion SPRAY spray,susp 1 SPRAY 1 SPRAY ension INTO EACH INTO EACH SPRAY 1 NOSTRIL NOSTRIL SPRAY INTO EVERY DAY EVERY DAY EACH NOSTRIL EVERY DAY furosemide furosemide No furosemide [facility] 20 mg 20 mg 20 mg [facility] tablet TAKE tablet TAKE tablet dic 1 TABLET BY 1 TABLET BY TAKE 1 Sports MOUTH EVERY MOUTH EVERY TABLET BY [facility] DAY DAY MOUTH e NEEDED NEEDED EVERY DAY NEEDED furosemide furosemide No furosemide [facility] 40 mg 40 mg 40 mg [facility] tablet TAKE tablet TAKE tablet dic 1 TABLET BY 1 TABLET BY TAKE 1 Sports MOUTH EVERY MOUTH EVERY TABLET BY [facility] DAY DAY MOUTH e EVERY DAY furosemide furosemide No furosemide [facility]da 80 mg 80 mg 80 mg [facility] tablet TAKE tablet TAKE tablet dic 1 TABLET BY 1 TABLET BY TAKE 1 Sports MOUTH EVERY MOUTH EVERY TABLET BY [facility] DAY DAY MOUTH e EVERY DAY gabapentin gabapentin No gabapentin [facility] 100 mg 100 mg 100 mg [facility] capsule capsule capsule dic TAKE 1 TAKE 1 TAKE 1 Sports CAPSULE BY CAPSULE BY CAPSULE BY [facility] MOUTH TWICE MOUTH TWICE MOUTH e DAILY DAILY TWICE DAILY hydralazine hydralazine No hydralazin [facility] 100 mg 100 mg e 100 mg [facility] tablet TAKE tablet TAKE tablet dic 1 TABLET BY 1 TABLET BY TAKE 1 Sports MOUTH EVERY MOUTH EVERY TABLET BY [facility] 8 HOURS 8 HOURS MOUTH e EVERY 8 HOURS Eliquis 2.5 Eliquis 2.5 No Eliquis [facility] mg tablet mg tablet 2.5 mg [facility] TAKE 1 TAKE 1 tablet dic TABLET BY TABLET BY TAKE 1 Spo rts MOUTH TWICE MOUTH TWICE TABLET BY [facility] A DAY A DAY MOUTH e TWICE A DAY hydralazine hydralazine No hydralazin [facility] 25 mg 25 mg e 25 mg [facility] tablet TAKE tablet TAKE tablet dic 1 TABLET BY 1 TABLET BY TAKE 1 Sports MOUTH EVERY MOUTH EVERY TABLET BY [facility] 8 HOURS 8 HOURS MOUTH e EVERY 8 HOURS ketoconazol ketoconazol No ketoconazo [facility] e 2 % e 2 % le 2 % [facility] shampoo shampoo shampoo dic APPLY TO APPLY TO APPLY TO Spo rts SCALP TO SCALP TO SCALP TO Med icin WASH TWICE WASH TWICE WASH TWICE e A WEEK FOR A WEEK FOR A WEEK FOR 4 WEEKS, 4 WEEKS, 4 WEEKS, THEN APPLY THEN APPLY THEN APPLY ONCE EVERY ONCE EVERY ONCE EVERY 1 TO 2 1 TO 2 1 TO 2 WEEKS WEEKS WEEKS lisinopril lisinopril No lisinopril [facility] 10 mg 10 mg 10 mg [facility] tablet TAKE tablet TAKE tablet dic 1 TABLET 1 TABLET TAKE 1 Sport s DAILY BY DAILY BY TABLET Medic in MOUTH MOUTH DAILY BY e MOUTH lisinopril lisinopril No lisinopril [facility] 20 mg 20 mg 20 mg [facility] tablet TAKE tablet TAKE tablet dic 2 TABLETS 2 TABLETS TAKE 2 Spo rts BY MOUTH BY MOUTH TABLETS BY Jaylen traore DAILY DAILY MOUTH e DAILY memantine memantine No memantine [facility] 10 mg 10 mg 10 mg [facility] tablet tablet tablet dic [facility] methocarbam methocarbam No methocarba [facility] ol 500 mg ol 500 mg mol 500 mg [facility] tablet TAKE tablet TAKE tablet dic 1 TABLET BY 1 TABLET BY TAKE 1 Sports MOUTH THREE MOUTH THREE TABLET BY [facility] TIMES DAILY TIMES DAILY MOUTH e NEEDED NEEDED THREE FOR SPASMS FOR SPASMS TIMES FOR 5 DAYS FOR 5 DAYS DAILY NEEDED FOR SPASMS FOR 5 DAYS metoprolol metoprolol No metoprolol [facility] tartrate 25 tartrate 25 tartrate [facility] mg tablet mg tablet 25 mg dic tablet [facility] metoprolol metoprolol No metoprolol [facility] tartrate 50 tartrate 50 tartrate [facility] mg tablet mg tablet 50 mg dic TAKE 1 TAKE 1 tablet Sports TABLET BY TABLET BY TAKE 1 Med icin MOUTH TWICE MOUTH TWICE TABLET BY e A DAY WITH A DAY WITH MOUTH MEALS MEALS TWICE A DAY WITH MEALS mupirocin 2 mupirocin 2 No mupirocin [facility]da % topical % topical 2 % Orth[facility] pe ointment ointment topical dic APPLY TO APPLY TO ointment Spo rts NOSTRILS AT NOSTRILS AT APPLY TO [facility] BED TIME BED TIME NOSTRILS e FOR 2 FOR 2 AT BED WEEKS. WEEKS. TIME FOR 2 WEEKS. oxybutynin oxybutynin No oxybutynin [facility] chloride 5 chloride 5 chloride 5 [facility] mg tablet mg tablet mg tablet dic [facility] furosemide furosemide No furosemide [facility] 20 mg 20 mg 20 mg [facility] tablet TAKE tablet TAKE tablet dic 1 TABLET BY 1 TABLET BY TAKE 1 Sports MOUTH EVERY MOUTH EVERY TABLET BY [facility] DAY DAY MOUTH e NEEDED NEEDED EVERY DAY NEEDED pantoprazol pantoprazol No pantoprazo [facility] e 40 mg e 40 mg le 40 mg [facility] pe tablet,roberta tablet,roberta tablet,del dic yed release yed release ayed S ports TAKE 1 TAKE 1 release [facility] TABLET BY TABLET BY TAKE 1 e MOUTH DAILY MOUTH DAILY TABLET BY MOUTH DAILY potassium potassium No potassium [facility] chloride ER chloride ER chloride [facility] 20 mEq 20 mEq ER 20 mEq dic tablet,exte tablet,exte tablet,ext Sports nded nded ended [facility] release release release e TAKE 1 TAKE 1 TAKE 1 TABLET BY TABLET BY TABLET BY MOUTH DAILY MOUTH DAILY MOUTH DAILY potassium potassium No potassium [facility] chloride ER chloride ER chloride [facility] 20 mEq 20 mEq ER 20 mEq dic tablet,exte tablet,exte tablet,ext Sports nded nded ended [facility] release(par release(par release(pa e t/cryst) t/cryst) rt/cryst) TAKE 1 TAKE 1 TAKE 1 TABLET BY TABLET BY TABLET BY MOUTH EVERY MOUTH EVERY MOUTH DAY WITH DAY WITH EVERY DAY FOOD FOOD WITH FOOD spironolact spironolact No spironolac [facility] one 25 mg one 25 mg tone 25 mg [facility] tablet TAKE tablet TAKE tablet dic 1/2 TABLET 1/2 TABLET TAKE 1/2 Sports BY MOUTH BY MOUTH TABLET BY Wi dicin EVERY DAY EVERY DAY MOUTH e EVERY DAY terazosin 1 terazosin 1 No terazosin [facility] mg capsule mg capsule 1 mg [facility] capsule dic [facility] tramadol 50 tramadol 50 No tramadol [facility] mg tablet mg tablet 50 mg [facility] TAKE 1 TAKE 1 tablet dic TABLET BY TABLET BY TAKE 1 Spo rts MOUTH EVERY MOUTH EVERY TABLET BY [facility] 6 HOURS 6 HOURS MOUTH e NEEDED NEEDED EVERY 6 HOURS NEEDED Xarelto 20 Xarelto 20 No Xarelto 20 [facility] mg tablet mg tablet mg tablet [facility] furosemide furosemide No furosemide [facility] 40 mg 40 mg 40 mg [facility] tablet TAKE tablet TAKE tablet dic 1 TABLET BY 1 TABLET BY TAKE 1 Sports MOUTH EVERY MOUTH EVERY TABLET BY [facility] DAY DAY MOUTH e EVERY DAY furosemide furosemide No furosemide [facility] 80 mg 80 mg 80 mg [facility] tablet TAKE tablet TAKE tablet dic 1 TABLET BY 1 TABLET BY TAKE 1 Sports MOUTH EVERY MOUTH EVERY TABLET BY [facility] DAY DAY MOUTH e EVERY DAY gabapentin gabapentin No gabapentin [facility] 100 mg 100 mg 100 mg [facility] capsule capsule capsule dic TAKE 1 TAKE 1 TAKE 1 Sports CAPSULE BY CAPSULE BY CAPSULE BY [facility] MOUTH TWICE MOUTH TWICE MOUTH e A DAY A DAY TWICE A DAY hydralazine hydralazine No hydralazin [facility] 25 mg 25 mg e 25 mg [facility] tablet TAKE tablet TAKE tablet dic 3 TABLET BY 3 TABLET BY TAKE 3 Sports ORAL ROUTE ORAL ROUTE TABLET BY [facility] 3 TIMES 3 TIMES ORAL ROUTE e EVERY DAY EVERY DAY 3 TIMES WITH FOOD WITH FOOD EVERY DAY WITH FOOD ketoconazol ketoconazol No ketoconazo [facility] e 2 % e 2 % le 2 % [facility] shampoo shampoo shampoo dic APPLY TO APPLY TO APPLY TO Spo rts SCALP TO SCALP TO SCALP TO Med icin WASH TWICE WASH TWICE WASH TWICE e A WEEK FOR A WEEK FOR A WEEK FOR 4 WEEKS, 4 WEEKS, 4 WEEKS, THEN APPLY THEN APPLY THEN APPLY ONCE EVERY ONCE EVERY ONCE EVERY 1 TO 2 1 TO 2 1 TO 2 WEEKS WEEKS WEEKS lisinopril lisinopril No lisinopril [facility] 10 mg 10 mg 10 mg [facility] tablet TAKE tablet TAKE tablet dic 1 TABLET 1 TABLET TAKE 1 Sport s DAILY BY DAILY BY TABLET Medic in MOUTH MOUTH DAILY BY e MOUTH lisinopril lisinopril No lisinopril [facility] 20 mg 20 mg 20 mg [facility] tablet TAKE tablet TAKE tablet dic 1 TABLET BY 1 TABLET BY TAKE 1 Sports MOUTH EVERY MOUTH EVERY TABLET BY [facility] DAY DAY MOUTH e EVERY DAY memantine memantine No memantine [facility] 10 mg 10 mg 10 mg [facility] tablet tablet tablet dic [facility] e metoprolol metoprolol No metoprolol [facility] tartrate 25 tartrate 25 tartrate [facility] mg tablet mg tablet 25 mg dic tablet Sports [facility] e metoprolol metoprolol No metoprolol [facility] tartrate 50 tartrate 50 tartrate [facility] mg tablet mg tablet 50 mg dic TAKE 1 TAKE 1 tablet Sports TABLET BY TABLET BY TAKE 1 Med icin MOUTH TWICE MOUTH TWICE TABLET BY e A DAY WITH A DAY WITH MOUTH MEALS MEALS TWICE A DAY WITH MEALS mupirocin 2 mupirocin 2 No mupirocin [facility] % topical % topical 2 % [facility] ointment ointment topical dic APPLY TO APPLY TO ointment Spo rts NOSTRILS AT NOSTRILS AT APPLY TO [facility] BED TIME BED TIME NOSTRILS e FOR 2 FOR 2 AT BED WEEKS. WEEKS. TIME FOR 2 WEEKS. oxybutynin oxybutynin No oxybutynin [facility] chloride 5 chloride 5 chloride 5 [facility] mg tablet mg tablet mg tablet dic [facility] e potassium potassium No potassium [facility] chloride ER chloride ER chloride [facility] 20 mEq 20 mEq ER 20 mEq dic tablet,exte tablet,exte tablet,ext Sports nded nded ended [facility] release release release e TAKE 1 TAKE 1 TAKE 1 TABLET BY TABLET BY TABLET BY MOUTH DAILY MOUTH DAILY MOUTH DAILY potassium potassium No potassium [facility] chloride ER chloride ER chloride [facility] 20 mEq 20 mEq ER 20 mEq dic tablet,exte tablet,exte tablet,ext Sports nded nded ended [facility] release(par release(par release(pa e t/cryst) t/cryst) rt/cryst) TAKE 1 TAKE 1 TAKE 1 TABLET BY TABLET BY TABLET BY MOUTH EVERY MOUTH EVERY MOUTH DAY WITH DAY WITH EVERY DAY FOOD FOOD WITH FOOD spironolact spironolact No spironolac [facility] one 25 mg one 25 mg tone 25 mg [facility] tablet TAKE tablet TAKE tablet dic 1/2 TABLET 1/2 TABLET TAKE 1/2 Sports BY MOUTH BY MOUTH TABLET BY Wi dicin EVERY DAY EVERY DAY MOUTH e EVERY DAY terazosin 1 terazosin 1 No terazosin [facility] mg capsule mg capsule 1 mg [facility] capsule dic [facility] Xarelto 20 Xarelto 20 No Xarelto 20 [facility] mg tablet mg tablet mg tablet [facility] albuterol albuterol No albuterol [facility] sulfate HFA sulfate HFA sulfate [facility] 90 90 HFA 90 dic mcg/actuati mcg/actuati mcg/actuat Sports on aerosol on aerosol ion Med icin inhaler inhaler aerosol e inhaler atorvastati atorvastati No atorvastat [facility] n 20 mg n 20 mg in 20 mg [facility] pe tablet TAKE tablet TAKE tablet dic 1 TABLET BY 1 TABLET BY TAKE 1 Sports MOUTH MOUTH TABLET BY [facility] EVERYDAY AT EVERYDAY AT MOUTH e BEDTIME BEDTIME EVERYDAY AT BEDTIME buspirone buspirone No buspirone [facility] 10 mg 10 mg 10 mg [facility] tablet tablet tablet dic [facility] e carvedilol carvedilol No carvedilol [facility] 12.5 mg 12.5 mg 12.5 mg [facility] tablet TAKE tablet TAKE tablet dic 1 TABLET BY 1 TABLET BY TAKE 1 Sports MOUTH TWICE MOUTH TWICE TABLET BY [facility] A DAY WITH A DAY WITH MOUTH e FOOD FOOD TWICE A DAY WITH FOOD cyclobenzap cyclobenzap No cyclobenza N[facility] rine 5 mg rine 5 mg caroline 5 mg [facility] tablet TAKE tablet TAKE tablet dic 1 TABLET BY 1 TABLET BY TAKE 1 Sports MOUTH THREE MOUTH THREE TABLET BY [facility] TIMES A DAY TIMES A DAY MOUTH e FOR 7 DAYS FOR 7 DAYS THREE TIMES A DAY FOR 7 DAYS diclofenac diclofenac No diclofenac [facility] sodium 75 sodium 75 sodium 75 [facility] mg mg mg dic tablet,roberta tablet,roberta tablet,del Sports yed release yed release ayed M edicin TAKE 1 TAKE 1 release e TABLET BY TABLET BY TAKE 1 MOUTH TWICE MOUTH TWICE TABLET BY A DAY A DAY MOUTH TWICE A DAY Eliquis 2.5 Eliquis 2.5 No Eliquis [facility] mg tablet mg tablet 2.5 mg [facility] TAKE 1 TAKE 1 tablet dic TABLET BY TABLET BY TAKE 1 Spo rts MOUTH TWICE MOUTH TWICE TABLET BY [facility] A DAY A DAY MOUTH e TWICE A DAY furosemide furosemide No furosemide [facility] 20 mg 20 mg 20 mg [facility] tablet TAKE tablet TAKE tablet dic 1 TABLET BY 1 TABLET BY TAKE 1 Sports MOUTH EVERY MOUTH EVERY TABLET BY [facility] DAY DAY MOUTH e NEEDED NEEDED EVERY DAY NEEDED furosemide furosemide No furosemide [facility] 40 mg 40 mg 40 mg [facility] tablet TAKE tablet TAKE tablet dic 1 TABLET BY 1 TABLET BY TAKE 1 Sports MOUTH EVERY MOUTH EVERY TABLET BY [facility] DAY DAY MOUTH e EVERY DAY furosemide furosemide No furosemide [facility] 80 mg 80 mg 80 mg [facility] tablet TAKE tablet TAKE tablet dic 1 TABLET BY 1 TABLET BY TAKE 1 Sports MOUTH EVERY MOUTH EVERY TABLET BY [facility] DAY DAY MOUTH e EVERY DAY gabapentin gabapentin No gabapentin [facility] 100 mg 100 mg 100 mg [facility] capsule capsule capsule dic TAKE 1 TAKE 1 TAKE 1 Sports CAPSULE BY CAPSULE BY CAPSULE BY [facility] MOUTH TWICE MOUTH TWICE MOUTH e A DAY A DAY TWICE A DAY hydralazine hydralazine No hydralazin [facility] 25 mg 25 mg e 25 mg [facility] tablet TAKE tablet TAKE tablet dic 3 TABLET BY 3 TABLET BY TAKE 3 Sports ORAL ROUTE ORAL ROUTE TABLET BY [facility] 3 TIMES 3 TIMES ORAL ROUTE e EVERY DAY EVERY DAY 3 TIMES WITH FOOD WITH FOOD EVERY DAY WITH FOOD ketoconazol ketoconazol No ketoconazo [facility] e 2 % e 2 % le 2 % [facility] shampoo shampoo shampoo dic APPLY TO APPLY TO APPLY TO Spo rts SCALP TO SCALP TO SCALP TO Med icin WASH TWICE WASH TWICE WASH TWICE e A WEEK FOR A WEEK FOR A WEEK FOR 4 WEEKS, 4 WEEKS, 4 WEEKS, THEN APPLY THEN APPLY THEN APPLY ONCE EVERY ONCE EVERY ONCE EVERY 1 TO 2 1 TO 2 1 TO 2 WEEKS WEEKS WEEKS lisinopril lisinopril No lisinopril [facility] 10 mg 10 mg 10 mg [facility] tablet TAKE tablet TAKE tablet dic 1 TABLET 1 TABLET TAKE 1 Sport s DAILY BY DAILY BY TABLET Medic in MOUTH MOUTH DAILY BY e MOUTH lisinopril lisinopril No lisinopril [facility] 20 mg 20 mg 20 mg [facility] tablet TAKE tablet TAKE tablet dic 1 TABLET BY 1 TABLET BY TAKE 1 Sports MOUTH EVERY MOUTH EVERY TABLET BY [facility] DAY DAY MOUTH e EVERY DAY memantine memantine No memantine [facility] 10 mg 10 mg 10 mg [facility] tablet tablet tablet dic Sports [facility] e metoprolol metoprolol No metoprolol [facility] tartrate 25 tartrate 25 tartrate [facility] mg tablet mg tablet 25 mg dic tablet Sports [facility] e metoprolol metoprolol No metoprolol [facility] tartrate 50 tartrate 50 tartrate [facility] mg tablet mg tablet 50 mg dic TAKE 1 TAKE 1 tablet Sports TABLET BY TABLET BY TAKE 1 Med icin MOUTH TWICE MOUTH TWICE TABLET BY e A DAY WITH A DAY WITH MOUTH MEALS MEALS TWICE A DAY WITH MEALS mupirocin 2 mupirocin 2 No mupirocin N[facility] % topical % topical 2 % [facility] pe ointment ointment topical dic APPLY TO APPLY TO ointment Spo rts NOSTRILS AT NOSTRILS AT APPLY TO [facility] BED TIME BED TIME NOSTRILS e FOR 2 FOR 2 AT BED WEEKS. WEEKS. TIME FOR 2 WEEKS. oxybutynin oxybutynin No oxybutynin [facility] chloride 5 chloride 5 chloride 5 [facility] mg tablet mg tablet mg tablet dic [facility] e potassium potassium No potassium [facility] chloride ER chloride ER chloride [facility] 20 mEq 20 mEq ER 20 mEq dic tablet,exte tablet,exte tablet,ext Sports nded nded ended [facility] release release release e TAKE 1 TAKE 1 TAKE 1 TABLET BY TABLET BY TABLET BY MOUTH DAILY MOUTH DAILY MOUTH DAILY Immunizations Ordered Filled Immunization Date Status Comments Sourc e Immunization Name Name pneumococcal pneumococcal 2021-11-14 Completed [facility] conjugate PCV 7 conjugate PCV 7 00:00:00 [facility] pneumococcal pneumococcal 2021-11-14 Completed [facility] conjugate PCV 7 conjugate PCV 7 00:00:00 [facility] pneumococcal pneumococcal 2021-11-14 Completed [facility] conjugate PCV 7 conjugate PCV 7 00:00:00 [facility] pneumococcal pneumococcal 2021-11-14 Completed [facility] conjugate PCV 7 conjugate PCV 7 00:00:00 [facility] pneumococcal pneumococcal 2021-11-14 Completed [facility] conjugate PCV 7 conjugate PCV 7 00:00:00 [facility] pneumococcal pneumococcal 2021-11-14 Completed [facility] hoped[facility] conjugate PCV 7 conjugate PCV 7 00:00:00 [facility] pneumococcal pneumococcal 2021-11-14 Completed [facility] conjugate PCV 7 conjugate PCV 7 00:00:00 [facility] pneumococcal pneumococcal 2021-11-14 Completed [facility] conjugate PCV 7 conjugate PCV 7 00:00:00 [facility] pneumococcal pneumococcal 2021-11-14 Completed [facility] conjugate PCV 7 conjugate PCV 7 00:00:00 [facility] pneumococcal pneumococcal 2021-11-14 Completed [facility] conjugate PCV 7 conjugate PCV 7 00:00:00 [facility] pneumococcal pneumococcal 2021-11-14 Completed [facility] conjugate PCV 7 conjugate PCV 7 00:00:00 [facility] pneumococcal pneumococcal 2021-11-14 Completed [facility] conjugate PCV 7 conjugate PCV 7 00:00:00 [facility] Pneumococcal 2020-01-[address] [facility] Conjugate (Prevnar) 00:00:00 [facility] Pneumococcal 2020-01-[address] [facility] Conjugate (Prevnar) 00:00:00 [facility] Pneumococcal 2020-01-[address] [facility] Conjugate (Prevnar) 00:00:00 [facility] Pneumococcal 2020-01-[address] [facility] Conjugate (Prevnar) 00:00:00 [facility] Vital Signs Vital Name Observation Time Observation Value Comments Source Height 2022-11-18 00:00:00 72 [in_i] [facility] BMI (Body Mass 2022-11-18 00:00:00 36.1 kg/m2 [facility] Body Weight 2022-11-18 00:00:00 266 [lb_av] [facility] Height 2022-10-30 00:00:00 72 [in_i] [facility] BMI (Body Mass 2022-10-30 00:00:00 36.1 kg/m2 [facility] Body Weight 2022-10-30 00:00:00 266 [lb_av] [facility] Height 2022-09-25 00:00:00 72 [in_i] [facility] BMI (Body Mass 2022-09-25 00:00:00 36.1 kg/m2 [facility] Body Weight 2022-09-25 00:00:00 266 [lb_av] [facility] Height 2022-09-11 00:00:00 72 [in_i] [facility] BMI (Body Mass 2022-09-11 00:00:00 36.1 kg/m2 [facility] Body Weight 2022-09-11 00:00:00 266 [lb_av] [facility] Height 2022-09-03 00:00:00 72 [in_i] [facility] BMI (Body Mass 2022-09-03 00:00:00 36.1 kg/m2 [facility] Body Weight 2022-09-03 00:00:00 266 [lb_av] [facility] Height 2022-08-27 00:00:00 72 [in_i] [facility] BMI (Body Mass 2022-08-27 00:00:00 36.1 kg/m2 [facility]) [facility] Body Weight 2022-08-27 00:00:00 266 [lb_av] [facility] Height 2022-08-21 00:00:00 72 [in_i] [facility] BMI (Body Mass 2022-08-21 00:00:00 36.1 kg/m2 [facility]) [facility] Body Weight 2022-08-21 00:00:00 266 [lb_av] [facility] Systolic blood 2022-07-02 20:20:00 147 mm[Hg] [facility] Diastolic blood 2022-07-02 20:20:00 80 mm[Hg] [facility] Heart rate 2022-07-02 20:20:00 66 /min [facility] Respiratory rate 2022-07-02 20:20:00 22 /min [facility] Oxygen saturation in 2022-07-02 20:20:00 98 /min [facility] blood by [facility] Pulse oximetry Branch Body temperature 2022-07-02 18:26:00 36.22 Marilyn [facility] Body height 2022-07-02 18:26:00 175.3 cm [facility] Body weight 2022-07-02 18:26:00 110.224 kg [facility] BMI 2022-07-02 18:26:00 35.88 kg/m2 [facility] Systolic blood 2022-06-24 03:00:00 140 mm[Hg] [facility] Diastolic blood 2022-06-24 03:00:00 77 mm[Hg] [facility] Heart rate 2022-06-24 03:00:00 84 /min [facility] Respiratory rate 2022-06-24 03:00:00 24 /min [facility] Oxygen saturation in 2022-06-24 03:00:00 97 /min [facility] Arterial blood by [facility] Pulse oximetry Branch Body temperature 2022-06-24 02:30:00 37.61 Mrailyn [facility] Body height 2022-06-23 23:09:00 182.9 cm [facility] Body weight 2022-06-23 23:09:00 113.399 kg [facility] BMI 2022-06-23 23:09:00 33.91 kg/m2 [facility] Body height 2022-03-15 12:40:00 175.3 cm [facility] Body weight 2022-03-15 12:40:00 105.235 kg [facility] BMI 2022-03-15 12:40:00 34.26 kg/m2 [facility] Temperature Oral (F) 2022-11-11 15:15:00 98.1 [facility] Rate 2022-11-11 15:15:00 [facility] Systolic (mm Hg) 2022-11-11 15:15:00 [facility] Diastolic (mm Hg) 2022-11-11 15:15:00 [facility] Temperature Oral (F) 2022-11-09 10:53:26 97.2 F [facility] Heart Rate 2022-11-04 14:10:00 [facility] Respitory Rate 2022-11-04 14:10:00 [facility] [place] Systolic (mm Hg) 2022-11-04 14:10:00 [facility] Diastolic (mm Hg) 2022-11-04 14:10:00 [facility] Heart Rate 2022-11-04 11:35:52 [facility] Respitory Rate 2022-11-04 11:35:52 [facility] [place] Systolic (mm Hg) 2022-11-04 11:35:23 [facility] Diastolic (mm Hg) 2022-11-04 11:35:23 [facility] Heart Rate 2022-11-04 11:35:23 [facility] Temperature Oral (F) 2022-11-04 11:34:31 98 F [facility] Respitory Rate 2022-11-04 07:31:55 [facility] [place] Systolic (mm Hg) 2022-11-04 07:31:35 [facility] [place] Diastolic (mm Hg) 2022-11-04 07:31:35 [facility] Temperature Oral (F) 2022-11-04 07:30:48 97.5 F [facility] Temperature Oral (F) 2022-11-04 02:30:00 97.8 F [facility] Height 2022-11-02 11:38:00 5 [ft_i] [facility] Weight 2022-11-02 11:38:00 [facility] BMI Calculated 2022-11-02 11:38:00 [facility] Height 2022-11-01 22:48:00 175.26 cm [facility] Weight 2022-11-01 22:48:00 [facility] BMI Calculated 2022-11-01 15:56:00 [facility] Weight 2022-11-01 15:56:00 [facility] Height 2022-11-01 15:56:00 175.26 cm [facility] Heart Rate 2022-07-31 16:31:58 [facility] Respitory Rate 2022-07-31 16:31:58 [facility] [place] Systolic (mm Hg) 2022-07-31 16:31:53 [facility] Diastolic (mm Hg) 2022-07-31 16:31:53 [facility] [place] Heart Rate 2022-07-31 16:31:53 [facility] Temperature Oral (F) 2022-07-31 16:31:38 97.5 F [facility] Heart Rate 2022-07-31 12:38:43 [facility] Respitory Rate 2022-07-31 12:38:43 [facility] Systolic (mm Hg) 2022-07-31 12:38:35 [facility] Diastolic (mm Hg) 2022-07-31 12:38:35 [facility] [place] Temperature Oral (F) 2022-07-31 12:38:21 97.7 F [facility] Systolic (mm Hg) 2022-07-31 08:35:32 [facility] Diastolic (mm Hg) 2022-07-31 08:35:32 [facility] [place] Respitory Rate 2022-07-31 08:35:00 [facility] Temperature Oral (F) 2022-07-31 08:34:45 97.2 F [facility] Weight 2022-07-29 11:20:00 [facility] BMI Calculated 2022-07-29 11:20:00 [facility] Height 2022-07-25 15:42:00 175.26 cm [facility] Respitory Rate 2021-04-18 17:00:00 [facility] Systolic (mm Hg) 2021-04-18 17:00:00 [facility] Diastolic (mm Hg) 2021-04-18 17:00:00 [facility] Temperature Oral (F) 2021-04-18 16:10:00 98.5 F [facility] Respitory Rate 2021-04-18 16:00:00 [facility] Systolic (mm Hg) 2021-04-18 16:00:00 [facility] Diastolic (mm Hg) 2021-04-18 16:00:00 [facility] [place] Respitory Rate 2021-04-18 15:00:00 [facility] [place] Systolic (mm Hg) 2021-04-18 15:00:00 [facility] [place] Diastolic (mm Hg) 2021-04-18 15:00:00 [facility] [place] Temperature Oral (F) 2021-04-18 12:35:00 97.5 F [facility] Temperature Oral (F) 2021-04-18 00:32:00 94.0 F [facility] Respitory Rate 2021-04-09 07:30:00 [facility] Systolic (mm Hg) 2021-04-09 07:30:00 [facility] [place] Diastolic (mm Hg) 2021-04-09 07:30:00 [facility] [place] Respitory Rate 2021-04-09 07:00:00 [facility] [place] Systolic (mm Hg) 2021-04-09 07:00:00 [facility] Diastolic (mm Hg) 2021-04-09 07:00:00 [facility] [place] Respitory Rate 2021-04-09 06:30:00 [facility] Systolic (mm Hg) 2021-04-09 06:30:00 [facility] [place] Diastolic (mm Hg) 2021-04-09 06:30:00 [facility] [place] Temperature Oral (F) 2021-04-08 04:00:00 97.8 F [facility] Height 2021-04-07 23:34:00 182.88 cm [facility] Weight 2021-04-07 23:34:00 [facility] BMI Calculated 2021-04-07 23:34:00 [facility] Temperature Oral (F) 2021-04-07 20:48:00 98.5 F [facility] Temperature Oral (F) 2021-04-07 10:47:00 97.6 F [facility] Heart Rate 2021-04-07 01:13:00 [facility] Heart Rate 2019-12-15 02:00:00 [facility] Respitory Rate 2019-12-15 02:00:00 [facility] Systolic (mm Hg) 2019-12-15 02:00:00 [facility] [place] Diastolic (mm Hg) 2019-12-15 02:00:00 [facility] Heart Rate 2019-12-14 22:00:00 [facility] Respitory Rate 2019-12-14 22:00:00 [facility] [place] Systolic (mm Hg) 2019-12-14 22:00:00 [facility] [place] Diastolic (mm Hg) 2019-12-14 22:00:00 [facility] Heart Rate 2019-12-14 18:00:00 [facility] Respitory Rate 2019-12-14 18:00:00 [facility] Systolic (mm Hg) 2019-12-14 18:00:00 [facility] Diastolic (mm Hg) 2019-12-14 18:00:00 [facility] [place] Temperature Oral (F) 2019-12-11 14:26:00 99.9 F [facility] Temperature Oral (F) 2019-12-11 09:51:00 99.7 F [facility] Temperature Oral (F) 2019-12-11 06:00:00 98.9 F [facility] Height 2019-12-11 02:49:00 182.88 cm [facility] Weight 2019-12-11 02:49:00 [facility] BMI Calculated 2019-12-11 02:49:00 [facility] Weight 2019-02-11 13:55:00 [facility] BMI Calculated 2019-02-11 13:55:00 [facility] Height 2019-02-11 13:55:00 182.88 cm [facility] Systolic (mm Hg) 2019-02-11 13:55:00 [facility] [place] Diastolic (mm Hg) 2019-02-11 13:55:00 [facility] Temperature Oral (F) 2019-02-11 13:55:00 98.2 F [facility] Heart Rate 2019-02-11 13:55:00 [facility] BMI Calculated 2019-02-04 13:05:00 [facility] [place] Weight 2019-02-04 13:05:00 [facility] [place] Height 2019-02-04 13:05:00 182.88 cm [facility] Heart Rate 2019-02-04 13:05:00 [facility] Temperature Oral (F) 2019-02-04 13:05:00 98.6 F [facility] [place] Systolic (mm Hg) 2019-02-04 13:05:00 Mike [facility] Diastolic (mm Hg) 2019-02-04 13:05:00 [facility] BMI Calculated 2018-01-12 16:06:00 [facility] [place] Weight 2018-01-12 16:06:00 [facility] Height 2018-01-12 16:06:00 182.88 cm [facility] [place] Systolic (mm Hg) 2018-01-12 16:06:00 Mike rial Luis Diastolic (mm Hg) 2018-01-12 16:06:00 Mem [facility] [place] Heart Rate 2018-01-12 16:06:00 [facility] Temperature Oral (F) 2018-01-12 16:06:00 98.0 F [facility] Diastolic (mm Hg) 2014-05-03 16:50:00 [facility] Heart Rate 2014-05-03 16:50:00 [facility] [place] Respitory Rate 2014-05-03 16:50:00 [facility] Systolic (mm Hg) 2014-05-03 16:50:00 Mike rial [place] Weight 2014-05-03 14:25:00 [facility] BMI Calculated 2014-05-03 14:25:00 [facility] Height 2014-05-03 14:25:00 182.88 cm [facility] [place] Systolic (mm Hg) 2014-05-03 14:25:00 Mike rial Luis Respitory Rate 2014-05-03 14:25:00 [facility] Heart Rate 2014-05-03 14:25:00 [facility] Diastolic (mm Hg) 2014-05-03 14:25:00 [facility] Temperature Oral (F) 2014-05-03 14:25:00 98.1 F [facility] Procedures Procedure Date / Time Performing Clinician Source Performed XR, knee, 3 view 2022-09-25 00:00:00 Nelda [facility] XR STROKE CHEST 1 VW 2022-07-02 19:19:14 Eder Johnson [facility] CT STROKE ANGIOGRAM HEAD 2022-07-02 19:06:32 Eder Johnson [facility] CT STROKE ANGIOGRAM NECK 2022-07-02 19:06:32 Eder Paz [facility] URINALYSIS 2022-07-02 19:06:00 Singer [facility] CT STROKE HEAD WO 2022-07-02 19:01:01 Singer [facility] CONTRAST [facility] TROPONIN I 2022-07-02 18:46:00 Singer [facility] BASIC METABOLIC PANEL 2022-07-02 18:46:00 Singer [facility] (NA, K, CL, CO2, Medical Branch GLUCOSE, BUN, CREATININE, CA) CBC WITHOUT DIFF 2022-07-02 18:46:00 Singer [facility] PROTHROMBIN TIME / INR 2022-07-02 18:46:00 Eder Johnson [facility] ACTIVATED PARTIAL 2022-07-02 18:46:00 Singer [facility] THRMPLAS [facility] XR, knee, 3 view 2022-06-26 00:00:00 [facility] 1 [facility]W 2022-06-24 01:21:41 Mimi Banegas [facility] URINALYSIS 2022-06-24 00:44:00 Mimi Banegas [facility] TROPONIN I 2022-06-23 23:43:00 Mimi Banegas [facility] BASIC METABOLIC PANEL 2022-06-23 23:43:00 Mimi Banegas [facility] (NA, K, CL, CO2, [facility] GLUCOSE, BUN, CREATININE, CA) CBC WITH DIFF 2022-06-23 23:43:00 Mimi Banegas [facility] N-TERMINAL PRO-BNP 2022-06-23 23:43:00 Mimi Banegas [facility] LACTIC ACID WHOLE BLOOD 2022-06-23 23:43:00 Mimi Banegas [facility] COVID-19 (ID NOW RAPID 2022-06-23 23:43:00 Mimi Banegas [facility] TESTING) [facility] [id number] 2022-04-08 00:00:00 FRANCISCO [facility] [id number] 2022-04-05 00:00:00 [facility] [id number] 2022-04-05 00:00:00 [facility] [id number] 2022-04-04 00:00:00 [facility] [id number] 2022-04-04 00:00:00 [facility] [id number] 2022-04-04 00:00:00 [facility] [id number] 2022-04-04 00:00:00 [facility] VA DESTRUC PREMALIGNANT, 2022-03-15 07:52:13 [facility] of FIRST LESION([id number]) Medicine VA DESTRUC 2022-03-15 07:52:13 [facility] of PREMALIGNANT,2-14 Medicine LESIONS(15205) VA DESTRUCTION BENIGN 2022-03-15 07:52:13 [facility] of LESIONS UP TO 14(25133) Medicine Cryotherapy to skin 2018-01-08 05:00:00 [facility] lesion<sup>1</sup> Implantation of 2015-05-04 05:00:00 [facility] cardioverter defibrillator with three electrode leads<sup>2</sup> Cardiac catheterization, Elijah Smith left heart<sup>3</sup> [facility] Miscellaneous [facility] operations<sup>4</sup> Knee joint operation [facility] [place] [place] Plan of Care Planned Activity Planned Date Details Comments Source Future Scheduled 2022-10-[address] [facility] 00:[facility]:00 SCREENING (12+) Medical Cent er [code = DEPRESSION SCREENING (12+)] Future Scheduled 2022-10-[address] [facility] 00:00:00 SCREENING [code = Medical Ce nter FALLS RISK SCREENING] Future Scheduled 2022-10-[address] [facility] 00:00:00 SCREENING (12+) Medical Cent er [code = DEPRESSION SCREENING (12+)] Future Scheduled 2022-10-[address] [facility] 00:00:00 SCREENING [code = Medical Ce nter FALLS RISK SCREENING] Future Scheduled 2022-10-[address] [facility] 00:00:00 SCREENING (12+) Medical Cent er [code = DEPRESSION SCREENING (12+)] Future Scheduled 2022-10-[address] [facility] 00:00:00 SCREENING [code = Medical Ce nter FALLS RISK SCREENING] Future Scheduled 2022-06-[address] [facility] 00:00:00 (#1) [code = [facility] INFLUENZA VACCINE (#1)] Future Scheduled 2022-06-[address] [facility] 00:00:00 (#1) [code = [facility] INFLUENZA VACCINE (#1)] Future Scheduled 2022-06-[address] [facility] 00:00:00 (#1) [code = [facility] INFLUENZA VACCINE (#1)] Future Scheduled 2022-06-[address] [facility] 00:00:00 (#1) [code = [facility] INFLUENZA VACCINE (#1)] Future Scheduled 2022-03-15 VA DESTRUC Ordered: [facility] of Test 07:52:13 PREMALIGNANT, FIRST 03/15/2022 Medicine LESION(06003) [code = 23651] Future Scheduled 2022-03-15 VA DESTRUC Ordered: [facility] of Test 07:52:13 PREMALIGNANT,2-14 03/15/2022 Medicine LESIONS(59878) [code = 54785] Future Scheduled 2022-03-15 VA DESTRUCTION Ordered: [facility] of Test 07:52:13 BENIGN LESIONS UP 03/15/2022 Medicine TO 14(51284) [code = 71978] Future Scheduled 2022-03-15 TETANUS SHOT [facility] of Test 07:41:17 (ADULT) [code = Medicine TETANUS SHOT (ADULT)] Future Scheduled 2022-03-15 Hepatitis C [facility] of Test 07:41:17 screening Medicine (procedure) [code = 835914727] Future Scheduled 2022-03-15 ZOSTER VACCINE (1 [facility] of Test 07:41:17 of 2) [code = Medicine ZOSTER VACCINE (1 of 2)] Future Scheduled 2022-03-15 FALL SCREEN [code = [employer] [facility] Test 07:41:17 FALL SCREEN] Medicine Future Scheduled 2022-03-15 Pneumococcal 65+ (1 [employer] [facility] Test 07:41:17 of 1 - PPSV23) Medicine [code = Pneumococcal 65+ (1 of 1 - PPSV23)] Future Scheduled 2022-03-15 MEDICARE AWV [facility] of Test 07:41:17 (Initial) [code = Medicine MEDICARE AWV (Initial)] Future Scheduled 2022-03-15 COVID-19 Vaccine (3 [employer] [facility] Test 07:41:17 - Booster for Medicine Pfizer series) [code = COVID-19 Vaccine (3 - Booster for Pfizer series)] Future Scheduled 2022-03-15 FLU VACCINE > 6 [facility] [employer] [facility] Test 07:41:17 MONTHS [code = FLU Medicine VACCINE > 6 MONTHS] Future Scheduled 2021-10-[address] [facility] 00:00:00 SCREENING (12+) Medical Cent er [code = DEPRESSION SCREENING (12+)] Future Scheduled 2021-10-[address] [facility] 00:00:00 SCREENING [code = Medical Ce nter FALLS RISK SCREENING] Future Scheduled 2021-10-10 TETANUS SHOT [facility] Test 10:19:17 (ADULT) [code = Medicine TETANUS SHOT (ADULT)] Future Scheduled 2021-10-10 ZOSTER VACCINE (1 [facility] of Test 10:19:17 of 2) [code = Medicine ZOSTER VACCINE (1 of 2)] Future Scheduled 2021-10-10 FALL SCREEN [code = [employer] [facility] Test 10:19:17 FALL SCREEN] Medicine Future Scheduled 2021-10-10 Pneumococcal 65+ (1 [employer] [facility] Test 10:19:17 of 1 - PPSV23) Medicine [code = Pneumococcal 65+ (1 of 1 - PPSV23)] Future Scheduled 2021-10-10 FLU VACCINE > 6 [facility] of Test 10:19:17 MONTHS [code = FLU Medicine VACCINE > 6 MONTHS] Future Scheduled 2021-10-10 COVID-19 Vaccine (3 [employer] [facility] Test 10:19:17 - Booster for Medicine Pfizer series) [code = COVID-19 Vaccine (3 - Booster for Pfizer series)] Future Scheduled 2021-01-[address] [facility] 00:00:00 Counseling and Medical Cente r Screening (12+) [code = Tobacco Cessation Counseling and Screening (12+)] Future Scheduled 2021-01-[address] [facility] 00:00:00 Counseling and Medical Cente r Screening (12+) [code = Tobacco Cessation Counseling and Screening (12+)] Future Scheduled 2021-01-[address] [facility] 00:00:00 Counseling and Medical Cente r Screening (12+) [code = Tobacco Cessation Counseling and Screening (12+)] Future Scheduled 2006-05-[address] [facility] 00:00:00 WELLNESS (YEAR 2 or Medical Center FIRST YEAR if no IPPE) [code = MEDICARE ANNUAL WELLNESS (YEAR 2 or FIRST YEAR if no IPPE)] Future Scheduled 2006-05-[address] [facility] 00:00:00 WELLNESS (YEAR 2 or Medical Center FIRST YEAR if no IPPE) [code = MEDICARE ANNUAL WELLNESS (YEAR 2 or FIRST YEAR if no IPPE)] Future Scheduled 2006-05-[address] [facility] 00:00:00 WELLNESS (YEAR 2 or Medical Center FIRST YEAR if no IPPE) [code = MEDICARE ANNUAL WELLNESS (YEAR 2 or FIRST YEAR if no IPPE)] Future Scheduled 2006-05-[address] [facility] 00:00:00 WELLNESS (YEAR 2 or Medical Center FIRST YEAR if no IPPE) [code = MEDICARE ANNUAL WELLNESS (YEAR 2 or FIRST YEAR if no IPPE)] Future Scheduled [address] [facility] 00:00:00 (1 of 2) [code = Medical [facility] ter SHINGLES VACCINES (1 of 2)] Future Scheduled [address] [facility] 00:00:00 (1 of 2) [code = Medical [facility] SHINGLES VACCINES (1 of 2)] Future Scheduled [address] [facility] 00:00:00 (1 of 2) [code = Medical [place] SHINGLES VACCINES (1 of 2)] Future Scheduled [address] [facility] 00:00:00 (1 of 2) [code = Medical [facility] SHINGLES VACCINES (1 of 2)] Future Scheduled 1962 DTAP/TDAP/TD [facility] 00:00:00 VACCINES (1 - Tdap) Medical Center [code = DTAP/TDAP/TD VACCINES (1 - Tdap)] Future Scheduled 1962 DTAP/TDAP/TD [facility] 00:00:00 VACCINES (1 - Tdap) Medical Center [code = DTAP/TDAP/TD VACCINES (1 - Tdap)] Future Scheduled 1962 DTAP/TDAP/TD [facility] 00:00:00 VACCINES (1 - Tdap) Medical Center [code = DTAP/TDAP/TD VACCINES (1 - Tdap)] Future Scheduled 1962 DTAP/TDAP/TD [facility] 00:00:00 VACCINES (1 - Tdap) Medical Center [code = DTAP/TDAP/TD VACCINES (1 - Tdap)] Future Scheduled [address] [facility] 00:00:00 SCREENING [code = Medical Ce nter HEPATITIS C SCREENING] Future Scheduled [address] [facility] 00:00:00 SCREENING [code = Medical Ce nter HEPATITIS C SCREENING] Future Scheduled [address] [facility] 00:00:00 SCREENING [code = Medical Ce nter HEPATITIS C SCREENING] Future Scheduled [address] [facility] 00:00:00 SCREENING [code = Medical Ce nter HEPATITIS C SCREENING] Future Scheduled 1944-02-01 COVID-[address] [facility] 00:00:00 (#1) [code = Medical Center COVID-19 VACCINE (#1)] Future Scheduled 1944-02-01 COVID-[address] [facility] 00:00:00 (#1) [code = Medical Center COVID-19 VACCINE (#1)] Future Scheduled 1944-02-01 COVID-[address] [facility] 00:00:00 (#1) [code = Medical Center COVID-19 VACCINE (#1)] Future Scheduled 1944-02-01 COVID-[address] [facility] 00:00:00 (#1) [code = Medical Center COVID-19 VACCINE (#1)] Future Appointment 2022-11-29 Jovanny Nelda [facility] 10:45:00 [id number] [facility] [address]; , [place] [address] Instructions Nelda Orthoped ic Sports Medicine Encounters Start End Encounter Admission Attending Care Care Encounter Source Date/Time Date/Time Type Type Clinicians Facility Department ID 2022-11-05 Inpatient KIMBER CarreonTO SURG [id number] [facility] 14:30:[address] Orthope dic [facility]osp[facility] l 2022-09-16 Outpatient 3 [place] [id number] [facility] 10:26:46 Mikey [id number] [facility] [place] 2022-09-12 Outpatient 3 BONY Padilla OT [facility] 10:06:24 Mikey 1117 [facility] [place] 2022-09-04 Outpatient 3 BONY Padilla OT [facility] 09:49:48 Mikey 1109 [facility] [place] 2022-09-03 Outpatient 3 [id number] ENCPL REF [id number] [facility] 10:12:53 1108 [facility] [place] 2022-09-02 Outpatient 3 [id number] ENCPL REF [id number] [facility] 13:55:21 1107 [facility] [place] 2022-08-09 Outpatient 3 [id number] ENCSL ORJ [id number] [facility] 10:33:27 [facility] [place] 2022-08-05 Outpatient 3 [id number] ENCSL REF [id number] [facility] 13:12:27 [id number] [facility] [place] 2022-07-31 Outpatient 3 [id number] ENCSL REF [id number] [facility] 07:14:48 19936 [facility] [place] 2022-04-10 Outpatient 3 [id number] ENCPL ORJ [id number] [facility] 15:38:15 0615 [facility] [place] 2022-04-09 Outpatient 3 [id number] ENCPL REF [id number] [facility] 12:18:04 0614 [facility] [place] 2022-03-20 Outpatient 3 BONY Padilla CRD [id number] [facility] 11:04:45 Mikey 0525 [facility] [place] 2022-01-24 Outpatient 3 [id number] ENCPL REF [id number] [facility] 14:46:22 0331 [facility] [place] 2021-05-14 Outpatient ANEUDY [facility] [id number] [place] 01:04:30 [facility] 2020-01-17 Inpatient SLE SLE [id number] [facility] 17:34:00 [id number] 2019-12-21 Inpatient SLEH [facility] [id number] [facility] 19:18:22 [id number] 2019-12-14 Inpatient SLEH SLE [id number] [facility] 23:50:47 [id number] 2022-11-18 2022-11-18 Nicholson AOSM [place] - Ortho [id number] Nelda 00:00:00 00:00:00 NAVA Gauthier [place] [facility] Orthope MD: [id number] FOG_Ofc dic [facility] Medicin [address], [place] [address] , Ph. [phone] 2022-11-01 2022-11-[address] [facility] [id number] Memoria 15:52:54 19:02:00 [place] 03 l [facility] 2022-11-01 2022-11-11 Inpatient E ADAMARIS WARD FB MED [id number] MHFB 12:25:00 13:02:00 2022-11-01 2022-11-11 [id number] 09:52:54 13:02:00 03 2022-11-11 2022-11-11 Outpatient FOG_Mathews AOSM AOSM [id number] Nelda 00:00:00 00:00:00 _Taras [id number] Orth ope dic [facility] 2022-11-11 2022-11-11 Outpatient FOG_Mathews AOSM AOSM 575 [id number] Nelda 00:00:00 00:00:00 _Taras [id number] Orth ope dic [facility] e 2022-11-11 2022-11-11 Outpatient FOG_Mathews AOSM AOSM 575 [id number] Nelda 00:00:00 00:00:00 _Taras [id number] Orth ope dic Sports Medicin e 2022-11-11 2022-11-11 Outpatient FOG_Mathews AOSM AOSM 575 [id number] Nelda 00:00:00 00:00:00 _Taras [id number] Orth ope dic [facility] 2022-11-11 2022-11-11 Outpatient FOG_Mathews AOSM AOSM 575 [id number] Nelda 00:00:00 00:00:00 _Taras [id number] Orth ope dic Sports Medicin e 2022-11-11 2022-11-11 Outpatient FOG_Mathews AOSM AOSM 575 [id number] Nelda 00:00:00 00:00:00 _Taras [id number] Orth ope dic [facility] e 2022-11-04 2022-11-04 [place] A[facility] [place] - Ortho [id number] 00:00:00 00:00:00 NAVA Gauthier [place] [facility] MD: [id number], [place], [place] [address] , Ph. [phone] 2022-11-01 2022-11-01 Outpatient Adamaris Ward SL MHSL [id number] 09:52:54 09:52:54 03 2022-10-31 2022-10-31 Outpatient Abrahan, HCACL LABO [id number] [facility] 19:22:00 19:22:00 Nicholson 18 [facility] 2022-10-30 2022-10-30 Outpatient EL Abrahan, HCACL LABO [id number] [facility] 16:00:00 16:00:00 Nicholson 60 [facility] 2022-10-30 2022-10-30 Outpatient Abrahan, HCACL LABO [id number] [facility] 16:00:00 16:00:00 Nicholson 60 [facility] 2022-10-30 2022-10-30 Outpatient KIMBER CarreonTO RADI [id number] [facility] 14:37:00 14:37:[address] Orthope dic Hospita l 2022-10-30 2022-10-30 Outpatient PHOEBE Carreon [facility] [id number] [facility] 14:37:00 14:37:[address] Orthope dic Hospita l 2022-10-30 2022-10-30 Outpatient FOG_Mathews AOSM AOSM [id number] Nelda 00:00:00 00:00:00 _Taras [id number] Orth ope dic [facility] 2022-10-30 2022-10-30 Nicholson AOSM [place] - Ortho [id number] Nelda 00:00:00 00:00:00 NAVA Gauthier [place] [facility] Jenny VIZCARRA: [id number] FOG_Ofc dic [facility] Sp[place]ts [place], [place] [address] , Ph. [phone] 2022-10-22 2022-10-22 Outpatient FOG_Mathews AOSM AOSM [id number] Nelda 00:00:00 00:00:00 _Taras [id number] Orth ope dic Sports Medicin e 2022-10-22 2022-10-22 Outpatient FOG_Mathews AOSM AOSM 575 [id number] Nelda 00:00:00 00:00:00 _Taras [id number] Orth ope dic Sports Medicin e 2022-10-17 2022-10-17 Outpatient FOG_Mathews AOSM AOSM 575 [id number] Nelda 00:00:00 00:00:00 _Taras [id number] Orth ope dic Sports Medicin e 2022-10-10 2022-10-10 Outpatient FOG_Mathews AOSM AOSM 575 [id number] Nelda 00:00:00 00:00:00 _Taras [id number] Orth ope dic Sports Medicin e 2022-09-17 2022-10-02 Inpatient 3 BONY Padilla ORJeevan [id number] [facility] 12:05:00 18:00:00 Mikey Shirley2 [facility] [place] 2022-09-25 2022-09-25 Outpatient FOG_Mathews AOSM AOSM 575 [id number] Nelda 00:00:00 00:00:00 _Taras [id number] Orth ope dic Sports Medicin e 2022-09-25 2022-09-25 [facility] - Ortho [id number] Nelda 00:00:00 00:00:00 NAVA Gauthier [place] [facility] MD: [id number] FOG_Ofc dic [facility] Spo rts [facility] [place] [address] , Ph. [phone] 2022-09-12 2022-09-12 Outpatient FOG_Mathews AOSM AOSM 575 [id number] Nelda 00:00:00 00:00:00 _Taras [id number] Orth ope dic Sports Medicin e 2022-09-11 2022-09-11 Outpatient FOG_Mathews AOSM AOSM 575 [id number] Nelda 00:00:00 00:00:00 _Taras [id number] Orth ope dic Sports Medicin e 2022-09-11 2022-09-11 [facility] - Ortho [id number] Nelda 00:00:00 00:00:00 NAVA Gauthier [place] [facility] MD: [id number] FOG_Ofc dic [facility] Spo [facility] [place] [address] , Ph. [phone] 2022-09-06 2022-09-06 Outpatient FOG_Mathews AOSM AOSM 575 [id number] Nelda 00:00:00 00:00:00 _Taras [id number] Orth ope dic Sports Medicin e 2022-09-03 2022-09-03 Outpatient FOG_Mathews AOSM AOSM 575 [id number] Nelda 00:00:00 00:00:00 _Taras [id number] Orth ope dic Sports Medicin e 2022-09-03 2022-09-03 [facility] - Ortho [id number] Nelda 00:00:00 00:00:00 NAVA Gauthier [place] [facility] Orthope MD: [id number] FOG_Ofc dic [facility] Medicin 100, Sugar [place] [facility] [place] [address] , Ph. [phone] 2022-08-27 2022-08-27 Outpatient FOG_Mathews AOSM AOSM [id number] Nelda 00:00:00 00:00:00 _Taras [id number] Orth ope dic Sports Medicin e 2022-08-27 2022-08-27 [facility] [place] - Ortho [id number] Nelda 00:00:00 00:00:00 NAVA Gauthier [place] - Orthope MD: [id number] F[facility] dic [facility], Sugar [place] [facility] [place] [address] , Ph. [phone] 2022-08-21 2022-08-21 Outpatient FOG_Mathews AOSM AOSM [id number] Nelda 00:00:00 00:00:00 _Taras [id number] Orth ope dic Sports Medicin e 2022-08-21 2022-08-21 [facility] - Ortho [id number] Nelda 00:00:00 00:00:00 NAVA Gauthier [place] [facility] MD: [id number] FOG_Ofc dic [facility] Spo [facility], [place] [address] , Ph. [phone] 2022-08-20 2022-08-20 Outpatient FOG_Mathews AOSM AOSM 575 [id number] Nelda 00:00:00 00:00:00 _Taras [id number] Orth ope dic Sports Medicin e 2022-07-31 2022-08-15 Inpatient 3 Khalik, ENCPL [facility] [id number] [facility] 15:16:00 11:40:00 Mikey 1005 [facility] 2022-07-29 2022-07-31 Inpatient [facility] [id number] Memoria 11:17:00 18:25:00 diamond Smith 02 l [place] C[place] 2022-07-29 2022-07-31 Outpatient Braly, MHSL SL [id number] 06:17:00 13:25:00 Jovanny El 02 2022-07-29 2022-07-31 Inpatient BRALY, MHFB MHFB [id number] MHFB 06:17:00 13:25:00 [facility] 2022-07-31 2022-07-31 Outpatient FOG_Mathews AOSM AOSM [id number] Nelda 00:00:00 00:00:00 _Taras [id number] Orth ope dic Sports Medicin e 2022-07-29 2022-07-29 Nicholson AO [place] - Ortho 3 Nelda 00:00:00 00:00:00 NAVA Gauthier [place] [facility] MD: [id number] F[address] , [place], [place] [address] , Ph. [phone] 2022-07-08 2022-07-24 Inpatient 3 BONY Padilla BAKARI [id number] [facility] 14:55:00 13:33:00 Mikey 0912 [facility] [place] 2022-07-02 2022-07-02 Emergency X [facility] ERT [id number] Univers 13:23:00 17:40:00 EDER almonte [facility] 2022-07-02 2022-07-02 Emergency [facility] [id number] [facility] 13:23:00 17:40:00 Eder BARAJAS [id number] i ty [facility] [id number] [facility] [id number] [address] 2022-06-26 2022-06-26 Outpatient BROOKS Gauthier LABO [id number] [facility] 15:59:00 15:59:00 Nicholson 39 [facility] 2022-06-26 2022-06-26 Outpatient PHOEBE Carreon LABO [id number] [facility] 11:55:00 12:55:[address] Orthope dic Hospita l 2022-06-26 2022-06-26 Outpatient FOG_Mathews AO AO [id number] Nelda 00:00:00 00:00:00 _Taras [id number] Orth ope dic Sports Medicin e 2022-06-26 2022-06-26 Nicholson AO [place] - Ortho [id number] Nelda 00:00:00 00:00:00 NAVA Gauthier [place] [facility] MD: [id number] FOG_[address]c [address] , [facility] [address] Sp[place], [place] [address] , Ph. [phone] 2022-06-26 2022-06-26 Outpatient JIM Gauthier AONATALYA [id number] 00:00:00 00:00:00 Nicholson [id number] 2022-06-23 2022-06-23 Emergency X BASSAM, [facility] ERT [id number] Univers 18:05:00 22:34:00 MIMI almonte [facility] 2022-06-23 2022-06-23 [facility] [id number] Univers 18:05:00 22:34:00 Mimi BARAJAS [id number] i nichol [facility] [id number] [facility] [id number] [address] 2022-06-20 2022-06-20 Outpatient FOG_Mathews AOSM AOSM [id number] Nelda 00:00:00 00:00:00 _Taras [id number] [facility] 2022-06-12 2022-06-12 Outpatient Abrahan HCACL LABO [id number] [facility] 16:19:00 16:19:[address] 2022-06-12 2022-06-12 Outpatient KIMBER CarreonTO RADI [id number] [facility] 13:21:00 13:21:[address] [facility] 2022-06-04 2022-06-04 Outpatient FOG_Mathews AOSM AOSM [id number] Nelda 00:00:00 00:00:00 _Taras [id number] [facility] 2022-05-10 2022-05-10 Outpatient FOG_Mathews AOSM AOSM [id number] Nelda 01:32:00 01:32:00 _Taras [id number] [facility] 2022-05-08 2022-05-08 Outpatient FOG_Mathews AOSM AOSM [id number] Nelda 09:30:00 09:30:00 _Taras [id number] [facility] 2022-05-03 2022-05-03 Outpatient FOG_Mathews AOSM AOSM [id number] Nelda 11:44:00 11:44:00 _Taras [id number] [facility] 2022-04-30 2022-04-30 Outpatient FOG_Mathews AOSM AOSM [id number] Nelda 04:22:00 04:22:00 _Taras [id number] [facility] 2022-04-30 2022-04-30 Outpatient Brabrii, AOSM AOSM [id number] 00:00:00 00:00:00 Nicholson [id number] 2022-04-30 2022-04-30 Nicholson AOSM [place] - [facility] [id number] Nelda 00:00:00 00:00:00 NAVA Gauthier [facility] Orthope MD: [id number] FOG_Ofc dic [facility] [address], [place] [address] , Ph. [phone] 2022-04-25 2022-04-25 Outpatient FOG_Mathews AOSM AOSM [id number] Nelda 11:20:00 11:20:00 _Taras [id number] [facility] 2022-04-19 2022-04-19 Outpatient FOG_Mathews AOSM AOSM [id number] Nelda 04:02:00 04:02:00 _Taras [id number] [facility] 2022-04-04 2022-04-12 Inpatient EL Braly, HCATO SURG [id number] [facility] 08:21:00 20:05:[id number] [place] [address] Orthope [facility] 2022-03-09 2022-04-12 Inpatient EL Braly, HCATO SURG [id number] [facility] 08:00:00 20:05:00 Nicholson [place] [facility] 2022-04-08 2022-04-08 Outpatient FOG_Mathews AOSM AOSM [id number] Nelda 12:14:00 12:14:00 _Taras [id number] [facility] 2022-04-04 2022-04-04 Nicholson AOSM [place] - Ortho [id number] Nelda 00:00:00 00:00:00 NAVA Gauthier [facility] MD: [id number], [place], [place] [address] , Ph. [phone] 2022-04-04 2022-04-04 Outpatient JIM Gauthier AOSM [id number] 00:00:00 00:00:00 Nicholson [id number] 2022-03-21 2022-04-03 Inpatient 3 [facility] [id number] [facility] 14:29:00 12:35:00 Mikey 0526 Health Rehabil itation Ryan robles 2022-04-03 2022-04-03 Outpatient FOG_Mathews AOSM AOSM [id number] Nelda 10:11:00 10:11:00 _Taras [id number] [facility] 2022-03-27 2022-03-27 Outpatient FOG_Mathews AOSM AOSM [id number] Nelda 06:22:00 06:22:00 _Taras [id number] Orth [facility] 2022-03-24 2022-03-24 Outpatient JAVON Olivier RADI [id number] [facility] 15:17:00 15:17:00 Germaine [facility] 2022-03-15 2022-03-15 Office KATHERYN Cruz [id number] [place] [address] 07:30:00 07:56:04 Visit Hussain AMBULATOR 350.1.13.21 College Y 0.2.7.2.686 [id number] Medi kelly 300 e 2022-02-07 2022-02-07 Outpatient PHOEBE Carreon 3DAY [id number] [facility] 08:00:00 23:00:[address] Orthope dic Hospita l 2022-02-07 2022-02-07 Outpatient BROOKS Gauthier LABO [id number] [facility] 16:53:00 16:53:00 Petty 89 [facility] 2022-01-25 2022-02-04 Inpatient 3 BONY Padilla [id number] [facility] 17:06:00 16:41:00 Mikey 0401 [facility] Re[facility] [place] 2021-11-23 2021-11-23 Outpatient BROOKS Costa LABO [id number] [facility] 15:39:00 15:39:00 Shayne 13 [facility] 2021-11-23 2021-11-23 Outpatient KIMBER MarinoTO RADI [id number] [facility] 07:30:00 07:30:00 Shayne 06 [place] [facility] 2021-10-10 2021-10-10 Office JULY [facility] [id number] [facility] 10:44:58 11:03:09 Visit AMBULATOR 350.1.13.21 College Y 0.2.7.2.686 of [id number] Medi kelly 300 e 2021-10-05 2021-10-05 Outpatient JULY [facility] [id number] [facility] 08:52:24 12:14:25 Colleg e of Medicin e 2021-04-07 2021-04-18 Inpatient [facility] [id number] Memoria 01:13:00 20:13:00 r [place] [address] [place] [address] 2021-04-07 2021-04-18 Inpatient [facility] [id number] Memoria 01:13:00 20:13:[address] Luis [address] [place] [address] 2021-04-06 2021-04-18 Outpatient Autumn [facility] [id number] 20:13:00 15:13:00 Magui 62 2021-04-06 2021-04-06 Outpatient Panda [facility] [id number] 20:13:00 20:13:00 Kerrie Mills 2019-12-28 2019-12-28 Ambulatory nullFlavo [facility] [id number] Memoria 17:15:00 17:15:00 Pre-Reg r Cardiology 13 l Harsh [place] 2019-12-28 2019-12-28 Ambulatory nullFlavo [facility] [id number] Memoria 17:15:00 17:15:00 Pre-Reg r Cardiology 13 l Harsh [place] 2019-12-28 2019-12-28 Outpatient MHIE IE [id number] Memoria 11:15:00 11:15:00 13 oumou [place] 2019-12-28 2019-12-28 Outpatient Penny L [facility] [id number] 11:15:00 11:15:00 Dolly 13 2019-12-11 2019-12-[address] [facility] [id number] Memoria 02:44:00 05:10:00 r Luis 45 l [place] 2019-12-11 2019-12-[address] [facility] [id number] Memoria 02:44:00 05:10:00 r Luis 45 l [place] 2019-12-10 2019-12-14 Inpatient MORATAYA [facility] 0045 [facility] 20:44:00 23:10:00 DRAGAN 2019-12-10 2019-12-14 Outpatient Morataya, [facility] [id number] 20:44:00 23:10:00 Dargan Gomes [facility] 2019-12-10 2019-12-12 Phone nullFlavo [facility] [id number] Memoria 20:46:01 05:59:59 Message r Cardiology 10 l [facility] 2019-12-10 2019-12-12 Phone nullFlavo [facility] [id number] Memoria 20:46:01 05:59:59 Message r Cardiology 10 l [facility] 2019-12-10 2019-12-11 Outpatient [facility] [id number] 14:46:01 23:59:59 10 2019-11-01 2019-11-03 Outside nullFlavo [facility] [id number] Memoria 15:36:18 05:59:59 Medical r Cardiology 09 l Records [facility] 2019-11-01 2019-11-03 Outside nullFlavo [facility] [id number] Memoria 15:36:18 05:59:59 Medical r Cardiology 09 l [facility] 2019-11-01 2019-11-02 Outpatient MG [facility] [id number] 09:36:18 23:59:59 09 2019-08-03 2019-08-05 Outside nullFlavo [facility] [id number] Memoria 14:21:35 04:59:59 Medical r Cardiology 08 l Lazaro Smith 2019-08-03 2019-08-05 Outside nullFlavo [facility] [id number] Memoria 14:21:35 04:59:59 Medical r Cardiology 08 l Lazaro Smith 2019-08-03 2019-08-04 Outpatient MG [facility] [id number] 09:21:35 23:59:59 08 2019-02-26 2019-02-28 Phone nullFlavo [facility] [id number] Memoria 19:14:03 04:59:59 Message r Cardiology 07 oumou Melo n 2019-02-26 2019-02-28 Phone nullFlavo [facility] [id number] Memoria 19:14:03 04:59:59 Message r Cardiology 07 l Beth Melo n 2019-02-26 2019-02-27 Outpatient MG [facility] [id number] 14:14:03 23:59:59 07 2019-02-11 2019-02-12 Outpatient nullFlavo [facility] [id number] Memoria 14:00:00 04:59:59 r Cardiology 12 oumou Smith 2019-02-11 2019-02-12 Outpatient nullFlavo [facility] [id number] Memoria 14:00:00 04:59:59 r Cardiology 12 oumou Smith 2019-02-11 2019-02-11 Outpatient Radha, MG [facility] [id number] 09:00:00 23:59:59 Francis D 12 2019-02-11 2019-02-11 Outpatient IE [facility] [id number] Memoria 09:00:00 09:00:00 12 oumou Smith 2019-02-04 2019-02-05 Outpatient nullFlavo [facility] [id number] Memoria 14:00:00 04:59:59 r Radiology 11 oumou Smith 2019-02-04 2019-02-05 Outpatient nullFlavo [facility] [id number] Memoria 14:00:00 04:59:59 r Radiology 11 oumou Smith 2019-02-04 2019-02-05 Outpatient nullFlavo [facility] [id number] Memoria 13:00:00 04:59:59 r Cardiology 10 oumou Smith 2019-02-04 2019-02-05 [place] [id number] Memoria 13:00:00 04:59:59 r Cardiology 10 oumou Smith 2019-02-04 2019-02-04 [place] [id number] 09:00:00 23:59:59 Francis D 11 2019-02-04 2019-02-04 [place] [id number] 08:00:00 23:59:59 Francis D 10 2019-02-04 2019-02-04 Outpatient MHIE MHIE [id number] Memoria 09:00:00 09:00:00 11 oumou Smith 2019-02-04 2019-02-04 Outpatient MHIE MHIE [id number] Memoria 08:00:00 08:00:00 10 oumou Smith 2018-09-02 2018-09-04 Phone nullFlavo MG [id number] Memoria 15:04:00 05:59:59 Message r Cardiology 06 oumou Smith 2018-09-02 2018-09-04 Phone nullFlavo MG [id number] Memoria 15:04:00 05:59:59 Message r Cardiology 06 oumou Smith 2018-09-02 2018-09-03 Outpatient MG MG [id number] 09:04:00 23:59:59 06 2018-05-12 2018-05-14 Phone nullFlavo MG [id number] Memoria 17:14:00 04:59:59 Message r Cardiology 05 oumou Smith 2018-05-12 2018-05-14 Phone nullFlavo MG [id number] Memoria 17:14:00 04:59:59 Message r Cardiology 05 oumou Smith 2018-05-12 2018-05-13 Outpatient MG MG [id number] 12:14:00 23:59:59 05 2018-03-16 2018-03-17 [place] [id number] Memoria 14:00:00 04:59:59 r Cardiology 09 oumou Smith 2018-03-16 2018-03-17 [place] [id number] Memoria 14:00:00 04:59:59 r Cardiology 09 oumou Smith 2018-03-16 2018-03-16 [place] [id number] 09:00:00 23:59:59 Francis Margaret 2018-03-16 2018-03-16 Outpatient MHIE MHIE [id number] Memoria 09:00:00 09:00:00 09 oumou Smith 2018-03-03 2018-03-05 Phone nullFlavo MHMG [id number] Memoria 17:09:00 04:59:59 Message r Cardiology 04 oumou Smith 2018-03-03 2018-03-05 Phone nullFlavo MHMG [id number] Memoria 17:09:00 04:59:59 Message r Cardiology 04 oumou Smith 2018-03-03 2018-03-04 Outpatient MHMG MG [id number] 12:09:00 23:59:59 04 2018-03-03 2018-03-04 Outpatient MHMG MG [id number] 12:09:00 23:59:59 04 2018-02-16 2018-02-16 [place] [id number] Memoria 15:30:00 15:30:00 Pre-Reg r Cardiology 06 oumou Smith 2018-02-16 2018-02-16 [place] [id number] Memoria 15:30:00 15:30:00 Pre-Reg r Cardiology 06 oumou Smith 2018-02-16 2018-02-16 Outpatient MHIE ARIANNAIE [id number] Memoria 10:30:00 10:30:00 06 oumou Smith 2018-02-16 2018-02-16 [place] [id number] 10:30:00 10:30:00 Francis Robles 2018-02-09 2018-02-09 [place] [id number] Memoria 16:00:00 16:00:00 Pre-Reg r Cardiology 08 oumou Smith 2018-02-09 2018-02-09 [place] [id number] Memoria 16:00:00 16:00:00 Pre-Reg r Cardiology 08 oumou Smith 2018-02-09 2018-02-09 Outpatient MHIE MHIE [id number] Memoria 11:00:00 11:00:00 08 oumou Smith 2018-02-09 2018-02-09 [place] [id number] 11:00:00 11:00:00 Francis Robles 08 2018-02-04 2018-02-06 Outside nullFlavo MG [id number] Memoria 15:59:00 04:59:59 Medical r Cardiology 03 l Lazaro mSith 2018-02-04 2018-02-06 Outside nullFlavo MG [id number] Memoria 15:59:00 04:59:59 Medical r Cardiology 03 l Lazaro Smith 2018-02-04 2018-02-05 Outpatient MHMG MHMG [id number] 10:59:00 23:59:59 03 2018-02-04 2018-02-05 Outpatient MHMG MG [id number] 10:59:00 23:59:59 03 2018-01-12 2018-01-13 [place] [id number] Memoria 16:00:00 04:59:59 r Cardiology 07 oumou Smith 2018-01-12 2018-01-13 [place] [id number] Memoria 16:00:00 04:59:59 r Cardiology 07 oumou Smith 2018-01-12 2018-01-12 [place] [id number] 11:00:00 23:59:59 Francis Robles 2018-01-12 2018-01-12 Outpatient MHIE MHIE [id number] Memoria 11:00:00 11:00:00 07 oumou Luis 2017-10-01 2017-10-03 Phone nullFlavo MG [id number] Memoria 19:38:00 05:59:59 Message r Cardiology 02 oumou Smith 2017-10-01 2017-10-03 Phone nullFlavo MG [id number] Memoria 19:38:00 05:59:59 Message r Cardiology 02 oumou Smith 2017-10-01 2017-10-02 Outpatient MHMG MHMG [id number] 13:38:00 23:59:59 2017-08-18 2017-08-18 Outpatient MHIE MHIE [id number] Memoria 15:00:00 15:00:00 05 oumou Smith 2017-08-18 2017-08-18 Outpatient MHIE MHIE [id number] Memoria 15:00:00 15:00:00 05 oumou Smith 2017-02-03 2017-02-03 Outpatient Shree MMG MMG [id number] [place] 10:00:00 10:00:00 [facility] 2016-09-02 2016-09-02 Outpatient MHIE MHIE [id number] Memoria 09:15:00 09:15:00 04 oumou Smith 2016-09-02 2016-09-02 Outpatient MHIE MHIE [id number] Memoria 09:15:00 09:15:00 04 oumou Smith 2016-05-06 2016-05-06 Outpatient MHIE MHIE [id number] Memoria 12:30:00 12:30:00 03 oumou Smith 2016-05-06 2016-05-06 Outpatient MHIE MHIE [id number] Memoria 12:30:00 12:30:00 03 oumou Smith 2015-10-31 2015-10-31 Outpatient MHIE MHIE [id number] Memoria 12:30:00 12:30:00 01 oumou Smith 2015-10-31 2015-10-31 Outpatient MHIE MHIE [id number] Memoria 12:30:00 12:30:00 01 oumou Smith 2015-10-30 2015-10-30 Outpatient MHIE MHIE [id number] Memoria 13:30:00 13:30:00 02 oumou Smith 2015-10-30 2015-10-30 Outpatient MHIE MHIE [id number] Memoria 13:30:00 13:30:00 02 oumou Smith 2015-07-31 2015-07-31 Outpatient MHIE MHIE [id number] Memoria 12:30:00 12:30:00 00 oumou Smith 2015-07-31 2015-07-31 Outpatient MHIE MHIE [id number] Memoria 12:30:00 12:30:00 00 oumou Smith 2014-05-03 2014-05-[address] [facility] [id number] Memoria 14:25:00 16:51:00 Emergency r Luis 01 l [facility] 2014-05-03 2014-05-[address] [facility] [id number] Memoria 14:25:00 16:51:00 Emergency r Luis 01 l [facility] [place] [facility] 2014-05-03 2014-05-03 Outpatient Radha James 2.16.840. 2.16.840. 1. [id number] 09:25:00 11:51:00 Jessica [id number]. [id number] 3.615.0.1 5.0.101 01 Results Test Description Test Time Test Comments Results Result Comments Source CHEMISTRY 2022-11-09 10:48:00 Test Item Value Reference Range Interpretation Comme nts Glucose Lvl (test code = Glucose Lvl) 128 70-99 [facility]ihuqfzRVCWCYGDU3978-69-86 10:48:00 Test Item Value Reference Range Interpretation Comments BUN (test code = BUN) 19 7-22 [facility]lineYmbrmoqTBGIEPSDG2198-73-68 10:48:00 Test Item Value Reference Range Interpretation Comments Creatinine Lvl (test code = Creatinine 0.94 0.50-1.40 Lvl) [facility]linePkuytvxRWNNHMVSC2846-87-41 10:48:00 Test Item Value Reference Range Interpretation Comments Sodium Lvl (test code = Sodium Lvl) 141 135-145 [facility]lineAjthqgpHWDJAHOHE1674-58-07 10:48:00 Test Item Value Reference Range Interpretation Comments Potassium Lvl (test code = Potassium 3.9 3.5-5.1 Lvl) [facility]lineCuvlevyTWJIZZUNS8717-73-53 10:48:00 Test Item Value Reference Range Interpretation Comments Chloride Lvl (test code = Chloride Lvl) 108 95-109 [facility]lineGjovvbdAZNNNRBWV1156-47-19 10:48:00 Test Item Value Reference Range Interpretation Comments CO2 (test code = CO2) 28 24-32 [facility]lineLrairsrVZTBHYQPY8613-98-40 10:48:00 Test Item Value Reference Range Interpretation Comments Calcium Lvl (test code = Calcium Lvl) 9.5 8.5-10.5 [facility]lineEqydloxWRYPFKPZA8396-64-90 10:48:00 Test Item Value Reference Range Interpretation Comments AGAP (test code = AGAP) 8.9 10.0-20.0 [facility]lineOmxvmlrOKTZABEKD5674-81-73 10:48:00 Test Item Value Reference Range Interpretation Comments eGFR (test code = eGFR) 83 [facility]pqhwuqMBELOKXIKI5626-07-50 10:37:00 Test Item Value Reference Range Interpretation Comments Segs (test code = Segs) 66.8 45.0-75.0 [place] 675513-01-13 10:37:00 Test Item Value Reference Range Interpretation Comments Lymphocytes (test code = Lymphocytes) 20.9 20.0-40.0 [place] [address]-01-13 10:37:00 Test Item Value Reference Range Interpretation Comments Monocytes (test code = Monocytes) 6.5 2.0-12.0 [place] [address]-01-13 10:37:00 Test Item Value Reference Range Interpretation Comments Eosinophils (test code = 5.3 See_Comment [A utomated message] The Eosinophils) system which ge nerated this result tra nsmitted reference range : <=4.0. The reference r brian was not used to int erpret this result as normal/abnormal . [place] [address]-01-13 10:37:00 Test Item Value Reference Range Interpretation Comments Basophils (test code = 0.5 See_Comment [Aut omated message] The Basophils) system which ge nerated this result tra nsmitted reference range : <=1.0. The reference r brian was not used to int erpret this result as normal/abnormal . [place] 675513-01-13 10:37:00 Test Item Value Reference Range Interpretation Comments Neutrophils # (test code = Neutrophils 5.2 1.5-8.1 #) [place] [address]-01-13 10:37:00 Test Item Value Reference Range Interpretation Comments Lymphocytes # (test code = Lymphocytes 1.6 1.0-5.5 #) [place] [address]-01-13 10:37:00 Test Item Value Reference Range Interpretation Comments Monocytes # (test code 0.5 See_Comment [Aut omated message] The = Monocytes #) system which generated this result tra nsmitted reference range : <=0.8. The reference r brian was not used to int erpret this result as normal/abnormal . [place] 675513-01-13 10:37:00 Test Item Value Reference Range Interpretation Comments Eosinophils # (test code 0.4 See_Comment [A utomated message] The = Eosinophils #) system wh h generated this result tra nsmitted reference range : <=0.5. The reference r brian was not used to int erpret this result as normal/abnormal . [facility]KqxvntoBBWOJKMJSB0307-09-09 10:37:00 Test Item Value Reference Range Interpretation Comments WBC (test code = WBC) 7.8 3.7-10.4 [facility]viewAurgwuvMYYUAALAQX9836-30-48 10:37:00 Test Item Value Reference Range Interpretation Comments RBC (test code = RBC) 3.11 4.70-6.10 [facility]viewGamjfdfNCMXWNQNRZ1047-54-05 10:37:00 Test Item Value Reference Range Interpretation Comments Hgb (test code = Hgb) 9.2 14.0-18.0 [facility]viewQzjndptTBGOZTZADE9293-73-28 10:37:00 Test Item Value Reference Range Interpretation Comments Hct (test code = Hct) 27.6 42.0-54.0 [facility]viewMnapjyuEBHBZYOBEM0720-42-92 10:37:00 Test Item Value Reference Range Interpretation Comments MCV (test code = MCV) 88.9 80.0-94.0 [facility]viewBkrapucJETPOFZZVR0356-66-22 10:37:00 Test Item Value Reference Range Interpretation Comments MCH (test code = MCH) 29.5 pg 27.0-31.0 [facility]viewHlqenedPIAZYYKCIE0565-31-78 10:37:00 Test Item Value Reference Range Interpretation Comments MCHC (test code = MCHC) 33.2 32.0-36.0 [facility]viewXooumjlAKXEGJPYZI2492-50-89 10:37:00 Test Item Value Reference Range Interpretation Comments RDW (test code = RDW) 14.0 11.5-14.5 [facility]viewWdecuejLSPQXYIPDO2567-48-48 10:37:00 Test Item Value Reference Range Interpretation Comments Platelet (test code = Platelet) 182 133-450 [facility]viewJprpmfzHOVJIRXITY3306-13-09 10:37:00 Test Item Value Reference Range Interpretation Comments MPV (test code = MPV) 7.5 7.4-10.4 [place] 25245023-01-12 16:28:42 Test Item Value Reference Range Interpretation Comments RADRPT (test PROCEDURE: Tunneled central code = venous catheter placement RADRPT) Procedural Personnel:Attending physician(s): Kaelyn Rios physician(s): NoneResident physician(s): NoneAdvanced practice provider(s): NonePre-procedure diagnosis: Poor IV access, need for tunneled central venous catheter for long-term IV antibioticsPost-procedure diagnosis: SameIndication: As aboveAdditional clinical history: NoneComplications: No immediate complications.IMPRESSION:Insertio n of left-sided dual --lumen tunneled tunneled central venous catheter, with tip in the expected location of the cavoatrial junction.PLAN: The catheter may be used immediately. PROCEDURE SUMMARY:- Venous access with ultrasound guidance- Tunneled central venous catheter insertion with fluoroscopic guidance- Additional procedure(s): NonePROCEDURE DETAILS:Pre-procedureHistory and imaging of central venous access reviewed (QCDR): Yes Consent: Informed consent for the procedure including risks, benefits and alternatives was obtained and time-out was performed prior to the procedure.Preparation (MIPS): The site was prepared and draped using all elements of maximal sterile barrier technique including sterile gloves, sterile gown, cap, mask, large sterile sheet, sterile ultrasound probe cover, hand hygiene and cutaneous antisepsis with 2% chlorhexidine. Medical reason for site preparation exception (MIPS): Not applicableAnesthesia/sedationLeve l of anesthesia/sedation: Moderate sedation (conscious sedation)Anesthesia/sedation administered by: Independent trained observer under attending supervision with continuous monitoring of the patient's level of consciousness and physiologic statusTotal intra-service sedation time (minutes): 30AccessLocal anesthesia was administered. The vessel was sonographically evaluated and determined to be patent. Real time ultrasound was used to visualize needle entry into the vessel and a permanent image stored in PACS imaging system permanently in the patient's permanent record.Vein accessed (QCDR): External jugular vein, leftAccess technique: Ultrasound-guided venous accessVenographyIndication for venography: Not performedVein catheterized: Not applicableFindings: Not applicableCatheter placementAn incision was made near the venous access site and the catheter was tunneled subcutaneously to the venous access site. The catheter was advanced via a peel-away sheath into the vein under fluoroscopic guidance. Catheter tip location was fluoroscopically verified and a permanent image was stored.Catheter placed: Dual-lumen central venous catheterCatheter size (Tongan): 6Catheter tip position: 2.5 vertebral body units (VBUs) below the ada.Unique Device Identifier (LEON): Not availableCatheter flush: Heparinized salineClosureA sterile dressing was applied.Access site closure technique: Tissue adhesiveCatheter securement technique: Non-absorbable sutureContrastContrast agent: NoneContrast volume (mL): 0Radiation DoseFluoroscopy time (min): 1.3 Kerma area product (mgy-cm2): 5.8 Images: 2Additional DetailsAdditional description of procedure: NoneEquipment details: NoneSpecimens removed: NoneEstimated blood loss (mL): Less than 10Standardized report: [email or web address]_v2Attestatio nSigner name: HAYLEE Abdalla attest that I was present for the entire procedure. I reviewed the stored images and agree with the report as written. [facility]woodLrponrpFEADYTBGT9843-30-61 10:46:00 Test Item Value Reference Range Interpretation Comments Vancomycin AUC (test code = Vancomycin 16.7 AUC) [facility]zo[facility]CHIOEQWFX7099-12-10 10:16:00 Test Item Value Reference Range Interpretation Comments Basophils # (test code 0.1 See_Comment [Aut omated message] The = Basophils #) system which generated this result tra nsmitted reference range : <=0.2. The reference r brian was not used to int erpret this result as normal/abnormal . [facility]viewGsuflaeVWVEWIBVXY0820-73-32 10:41:00 Test Item Value Reference Range Interpretation Comments RBC Morph (test code = Normal (11/05/22 4:41 RBC Morph) AM) [facility] CenterMzpdrtpTETVBMGLDK3200-26-90 10:41:00 Test Item Value Reference Range Interpretation Comments Plt Morph (test code = Normal (11/05/22 4:41 Plt Morph) AM) [place] [id number] 21:12:36 Test Item Value Reference Range Interpretation Comments RADRPT (test code = CLINICAL HISTORY: Pain RADRPT) Post Trauma - post-operative in PACU.AGE: 77 yearsGENDER: MaleTECHNIQUE: Right knee radiographs, 2 views.COMPARISON: 07/29/2022FINDINGS: Interval postoperative changes from removal of tibial component of right knee arthroplasty. Femoral and patellar components are situated in appropriate position.Small knee joint effusion with expected pneumarthrosis, within the range of normal given recent surgery. Surgical skin misty are noted. Soft tissues.IMPRESSION:Interva l postoperative changes from removal of tibial component of right knee arthroplasty without radiographic evidence of complication.. [facility]2023-01-09 20:14:00 Test Item Value Reference Range Interpretation Comments Glucose POC (test code = Glucose POC) 100 70-99 [facility]2023-01-09 20:14:00 Test Item Value Reference Range Interpretation Comments Gluc POC Comment 1 (test code Notified RN/MD = Gluc POC Comment 1) [place] [facility] Fyssk7233-27-97 19:40:00 Test Item Value Reference Range Interpretation Comments AFB Stain (test code = No Acid Fast Bacilli AFB Stain) [facility] w/Gampx4687-86-22 19:40:00 Test Item Value Reference Range Interpretation Comments Culture: AFB w/Smear No AFB Isolated At 1 (test code = Culture: Week AFB w/Smear) [facility] Bmcnf5579-56-72 19:40:00 Test Item Value Reference Range Interpretation Comments AFB Stain (test code = No Acid Fast Bacilli AFB Stain) [facility]: [facility] w/Rolwi0088-61-84 19:40:00 Test Item Value Reference Range Interpretation Comments Culture: AFB w/Smear No AFB Isolated At 1 (test code = Culture: Week AFB w/Smear) [facility] Jirki9705-80-24 19:40:00 Test Item Value Reference Range Interpretation Comments AFB Stain (test code = No Acid Fast Bacilli AFB Stain) [facility]: [facility] w/Twbfc6319-06-21 19:40:00 Test Item Value Reference Range Interpretation Comments Culture: AFB w/Smear No AFB Isolated At 1 (test code = Culture: Week AFB w/Smear) [facility] Fzvme9427-97-96 19:40:00 Test Item Value Reference Range Interpretation Comments AFB Stain (test code = No Acid Fast Bacilli AFB Stain) [facility] w/Axeyu5503-85-82 19:40:00 Test Item Value Reference Range Interpretation Comments Culture: AFB w/Smear No AFB Isolated At 1 (test code = Culture: Week AFB w/Smear) [facility] Vchwb0941-04-67 19:40:00 Test Item Value Reference Range Interpretation Comments AFB Stain (test code = No Acid Fast Bacilli AFB Stain) Seen On Smear [facility]: AFB w/Mouba4050-90-20 19:40:00 Test Item Value Reference Range Interpretation Comments Culture: AFB w/Smear No AFB Isolated At 1 (test code = Culture: Week AFB w/Smear) [facility] Rfkzi5634-63-73 19:40:00 Test Item Value Reference Range Interpretation Comments AFB Stain (test code = No Acid Fast Bacilli AFB Stain) [facility] w/Ddkhv5050-27-69 19:40:00 Test Item Value Reference Range Interpretation Comments Culture: AFB w/Smear No AFB Isolated At 1 (test code = Culture: Week AFB w/Smear) [facility]: Vhfyjbzvu0919-20-73 19:40:00 Test Item Value Reference Range Interpretation Comments Culture: Anaerobic No Anaerobes Isolated (test code = Culture: After 5 Days Anaerobic) [facility]: Gxhlkgtoh7266-04-84 19:40:00 Test Item Value Reference Range Interpretation Comments Culture: Anaerobic No Anaerobes Isolated (test code = Culture: After 5 Days Anaerobic) [facility]: Ntntxvgdv9035-49-58 19:40:00 Test Item Value Reference Range Interpretation Comments Culture: Anaerobic No Anaerobes Isolated (test code = Culture: After 5 Days Anaerobic) [facility]: Sxldlrdha7108-96-29 19:40:00 Test Item Value Reference Range Interpretation Comments Culture: Anaerobic No Anaerobes Isolated (test code = Culture: After 5 Days Anaerobic) [facility] [id number] 16:46:00 Test Item Value Reference Range Interpretation Comments ABO/Rh (test code = ABO/Rh) O POS [facility] [id number] 16:46:00 Test Item Value Reference Range Interpretation Comments Antibody Scrn (test Negative (11/04/22 10:46 code = Antibody Scrn) AM) [place] 784943-01-09 10:34:00 Test Item Value Reference Range Interpretation Comments Glucose Lvl (test code = Glucose Lvl) 94 70-99 [place] 784943-01-09 10:34:00 Test Item Value Reference Range Interpretation Comments BUN (test code = BUN) 17 7-22 [place] 784943-01-09 10:34:00 Test Item Value Reference Range Interpretation Comments Creatinine Lvl (test code = Creatinine 0.86 0.50-1.40 Lvl) [facility]2023-01-09 10:34:00 Test Item Value Reference Range Interpretation Comments Sodium Lvl (test code = Sodium Lvl) 143 135-145 [place] 784943-01-09 10:34:00 Test Item Value Reference Range Interpretation Comments Potassium Lvl (test code = Potassium 3.8 3.5-5.1 Lvl) [place] 784943-01-09 10:34:00 Test Item Value Reference Range Interpretation Comments Chloride Lvl (test code = Chloride Lvl) 113 95-109 [facility]2023-01-09 10:34:00 Test Item Value Reference Range Interpretation Comments CO2 (test code = CO2) 23 24-32 [facility]2023-01-09 10:34:00 Test Item Value Reference Range Interpretation Comments Calcium Lvl (test code = Calcium Lvl) 9.8 8.5-10.5 [facility]2023-01-09 10:34:00 Test Item Value Reference Range Interpretation Comments AGAP (test code = AGAP) 10.8 10.0-20.0 [place] 784943-01-09 10:34:00 Test Item Value Reference Range Interpretation Comments eGFR (test code = eGFR) 88 [facility]htdqiLKQXYKCPXU6475-02-11 10:34:00 Test Item Value Reference Range Interpretation Comments RBC Morph (test code = Normal (11/04/22 4:34 AM) RBC Morph) [facility]viewCtqwnrkBMDZBDOKVY0236-99-66 10:34:00 Test Item Value Reference Range Interpretation Comments Plt Morph (test code = Normal (11/04/22 4:34 AM) Plt Morph) [place] 675513-01-09 10:34:00 Test Item Value Reference Range Interpretation Comments Segs (test code = Segs) 62.6 45.0-75.0 [place] 675513-01-09 10:34:00 Test Item Value Reference Range Interpretation Comments Lymphocytes (test code = Lymphocytes) 23.2 20.0-40.0 [place] [address]-01-09 10:34:00 Test Item Value Reference Range Interpretation Comments Monocytes (test code = Monocytes) 6.5 2.0-12.0 [place] [address]-01-09 10:34:00 Test Item Value Reference Range Interpretation Comments Eosinophils (test code = 7.1 See_Comment [A utomated message] The Eosinophils) system which ge nerated this result tra nsmitted reference range : <=4.0. The reference r brian was not used to int erpret this result as normal/abnormal . [place] [address]-01-09 10:34:00 Test Item Value Reference Range Interpretation Comments Basophils (test code = 0.6 See_Comment [Aut omated message] The Basophils) system which ge nerated this result tra nsmitted reference range : <=1.0. The reference r brian was not used to int erpret this result as normal/abnormal . [place] 675513-01-09 10:34:00 Test Item Value Reference Range Interpretation Comments Neutrophils # (test code = Neutrophils 3.8 1.5-8.1 #) [place] 675513-01-09 10:34:00 Test Item Value Reference Range Interpretation Comments Lymphocytes # (test code = Lymphocytes 1.4 1.0-5.5 #) [place] 675513-01-09 10:34:00 Test Item Value Reference Range Interpretation Comments Monocytes # (test code 0.4 See_Comment [Aut omated message] The = Monocytes #) system which generated this result tra nsmitted reference range : <=0.8. The reference r brian was not used to int erpret this result as normal/abnormal . [place] [address]-01-09 10:34:00 Test Item Value Reference Range Interpretation Comments Eosinophils # (test code 0.4 See_Comment [A utomated message] The = Eosinophils #) system whic h generated this result tra nsmitted reference range : <=0.5. The reference r brian was not used to int erpret this result as normal/abnormal . [facility]viewIzxyascEICMOOBLWE4266-15-55 10:34:00 Test Item Value Reference Range Interpretation Comments WBC (test code = WBC) 6.3 3.7-10.4 [facility]viewJusewjzHVTNLDXVGT0562-49-14 10:34:00 Test Item Value Reference Range Interpretation Comments RBC (test code = RBC) 3.75 4.70-6.10 [facility]viewYxuxcfuBUAFUCSIGH1081-01-27 10:34:00 Test Item Value Reference Range Interpretation Comments Hgb (test code = Hgb) 11.1 14.0-18.0 [place] 675513-01-09 10:34:00 Test Item Value Reference Range Interpretation Comments Hct (test code = Hct) 33.8 42.0-54.0 [place] 675513-01-09 10:34:00 Test Item Value Reference Range Interpretation Comments MCV (test code = MCV) 90.3 80.0-94.0 [facility]viewDgvroozKSJIFTNKLH2744-51-69 10:34:00 Test Item Value Reference Range Interpretation Comments MCH (test code = MCH) 29.7 pg 27.0-31.0 [facility]viewXcvagbnUCTIOCAYMF2569-59-63 10:34:00 Test Item Value Reference Range Interpretation Comments MCHC (test code = MCHC) 32.8 32.0-36.0 [facility]viewNddtifgMBFMKXBSKV7277-75-16 10:34:00 Test Item Value Reference Range Interpretation Comments RDW (test code = RDW) 13.7 11.5-14.5 [facility]viewZvllkqhMDUFTQBUAP0847-03-89 10:34:00 Test Item Value Reference Range Interpretation Comments Platelet (test code = Platelet) 169 133-450 [facility]viewQbkkloyIVWINNCNGV8538-14-29 10:34:00 Test Item Value Reference Range Interpretation Comments MPV (test code = MPV) 7.7 7.4-10.4 [facility]2023-01-08 10:17:00 Test Item Value Reference Range Interpretation Comments Glucose Lvl (test code = Glucose Lvl) 84 70-99 [facility]2023-01-08 10:17:00 Test Item Value Reference Range Interpretation Comments BUN (test code = BUN) 19 - [facility]2023-01-08 10:17:00 Test Item Value Reference Range Interpretation Comments Creatinine Lvl (test code = Creatinine 0.88 0.50-1.40 Lvl) [facility]2023-01-08 10:17:00 Test Item Value Reference Range Interpretation Comments Sodium Lvl (test code = Sodium Lvl) 140 135-145 [place] 784943-01-08 10:17:00 Test Item Value Reference Range Interpretation Comments Potassium Lvl (test code = Potassium 3.6 3.5-5.1 Lvl) [facility]2023-01-08 10:17:00 Test Item Value Reference Range Interpretation Comments Chloride Lvl (test code = Chloride Lvl) 111 95-109 [facility]2023-01-08 10:17:00 Test Item Value Reference Range Interpretation Comments CO2 (test code = CO2) 23 24-32 [facility]2023-01-08 10:17:00 Test Item Value Reference Range Interpretation Comments Calcium Lvl (test code = Calcium Lvl) 9.2 8.5-10.5 [facility]2023-01-08 10:17:00 Test Item Value Reference Range Interpretation Comments AGAP (test code = AGAP) 9.6 10.0-20.0 [facility]2023-01-08 10:17:00 Test Item Value Reference Range Interpretation Comments eGFR (test code = eGFR) 87 [facility]woodHrtxlmoAKNZQCQSSF8072-33-04 10:17:00 Test Item Value Reference Range Interpretation Comments Vancomycin AUC (test code = Vancomycin 16.9 AUC) [facility]2023-01-07 10:05:00 Test Item Value Reference Range Interpretation Comments Glucose Lvl (test code = Glucose Lvl) 108 70-99 [facility]2023-01-07 10:05:00 Test Item Value Reference Range Interpretation Comments BUN (test code = BUN) 24 - [facility]2023-01-07 10:05:00 Test Item Value Reference Range Interpretation Comments Creatinine Lvl (test code = Creatinine 0.98 0.50-1.40 Lvl) [facility]2023-01-07 10:05:00 Test Item Value Reference Range Interpretation Comments Sodium Lvl (test code = Sodium Lvl) 142 135-145 [facility]2023-01-07 10:05:00 Test Item Value Reference Range Interpretation Comments Potassium Lvl (test code = Potassium 3.4 3.5-5.1 Lvl) [facility]2023-01-07 10:05:00 Test Item Value Reference Range Interpretation Comments Chloride Lvl (test code = Chloride Lvl) 114 95-109 [place] 784943-01-07 10:05:00 Test Item Value Reference Range Interpretation Comments CO2 (test code = CO2) 22 24-32 [place] 784943-01-07 10:05:00 Test Item Value Reference Range Interpretation Comments Calcium Lvl (test code = Calcium Lvl) 9.3 8.5-10.5 [facility]2023-01-07 10:05:00 Test Item Value Reference Range Interpretation Comments AGAP (test code = AGAP) 9.4 10.0-20.0 [facility]2023-01-07 10:05:00 Test Item Value Reference Range Interpretation Comments eGFR (test code = eGFR) 78 [facility]lineGomoadeKSPKSWGHI3506-74-38 10:05:00 Test Item Value Reference Range Interpretation Comments Hgb A1C (test code = Hgb A1C) 5.5 [facility] ShorelineJaxawtnADRCTHZBR1945-82-43 10:05:00 Test Item Value Reference Range Interpretation Comments TSH (test code = TSH) 0.942 0.360-3.740 [facility]viewNhbeebpLZIBLYOAOU4676-44-10 10:05:00 Test Item Value Reference Range Interpretation Comments WBC (test code = WBC) 6.9 3.7-10.4 [place] 675513-01-07 10:05:00 Test Item Value Reference Range Interpretation Comments RBC (test code = RBC) 3.85 4.70-6.10 [place] 675513-01-07 10:05:00 Test Item Value Reference Range Interpretation Comments Hgb (test code = Hgb) 11.3 14.0-18.0 [place] [address]-01-07 10:05:00 Test Item Value Reference Range Interpretation Comments Hct (test code = Hct) 34.8 42.0-54.0 [place] 675513-01-07 10:05:00 Test Item Value Reference Range Interpretation Comments MCV (test code = MCV) 90.3 80.0-94.0 [facility]viewRdtjpuaPVXLTLYANV2370-71-99 10:05:00 Test Item Value Reference Range Interpretation Comments MCH (test code = MCH) 29.2 pg 27.0-31.0 [facility]viewIvgduurPDUFVBGSPE1957-23-30 10:05:00 Test Item Value Reference Range Interpretation Comments MCHC (test code = MCHC) 32.4 32.0-36.0 [facility]viewQnbcnoaMVRFTMAPHJ2194-05-31 10:05:00 Test Item Value Reference Range Interpretation Comments RDW (test code = RDW) 13.8 11.5-14.5 [facility]viewAzmqquhZWQJIGPWDZ6811-37-06 10:05:00 Test Item Value Reference Range Interpretation Comments Platelet (test code = Platelet) 203 133-450 [facility]viewDytchzcSACBTYMKAW1517-39-73 10:05:00 Test Item Value Reference Range Interpretation Comments MPV (test code = MPV) 7.3 7.4-10.4 [facility]viewZyoeakuUGFFNTPMZK5488-77-85 10:05:00 Test Item Value Reference Range Interpretation Comments Segs (test code = Segs) 73.7 45.0-75.0 [facility]viewNjxichjOKWADBLZFR7564-03-22 10:05:00 Test Item Value Reference Range Interpretation Comments Lymphocytes (test code = Lymphocytes) 15.5 20.0-40.0 [facility]viewSlrkvarAQPLBJXHLC7084-82-42 10:05:00 Test Item Value Reference Range Interpretation Comments Monocytes (test code = Monocytes) 6.0 2.0-12.0 [facility]viewDjnwsvwXIPFFSMBNE0092-64-86 10:05:00 Test Item Value Reference Range Interpretation Comments Eosinophils (test code = 4.2 See_Comment [A utomated message] The Eosinophils) system which ge nerated this result tra nsmitted reference range : <=4.0. The reference r brian was not used to int erpret this result as normal/abnormal . [facility]viewYiynjwyJGUHYPQCLV0076-92-01 10:05:00 Test Item Value Reference Range Interpretation Comments Basophils (test code = 0.6 See_Comment [Aut omated message] The Basophils) system which ge nerated this result tra nsmitted reference range : <=1.0. The reference r brian was not used to int erpret this result as normal/abnormal . [facility]UpuppcgTLWKDOHVTM5411-30-75 10:05:00 Test Item Value Reference Range Interpretation Comments Neutrophils # (test code = Neutrophils 5.1 1.5-8.1 #) [facility] CenterSgtuzfmWNFFVHCVYH8898-89-17 10:05:00 Test Item Value Reference Range Interpretation Comments Lymphocytes # (test code = Lymphocytes 1.1 1.0-5.5 #) [facility]viewUyynnzsITLUVJEJDH7064-13-26 10:05:00 Test Item Value Reference Range Interpretation Comments Monocytes # (test code 0.4 See_Comment [Aut omated message] The = Monocytes #) system which generated this result tra nsmitted reference range : <=0.8. The reference r brian was not used to int erpret this result as normal/abnormal . [facility]viewMrrfxliDFDHFLMAZH1605-48-67 10:05:00 Test Item Value Reference Range Interpretation Comments Eosinophils # (test code 0.3 See_Comment [A utomated message] The = Eosinophils #) system whic h generated this result tra nsmitted reference range : <=0.5. The reference r brian was not used to int erpret this result as normal/abnormal . [facility] KingwoodZimedhaODKVPDDKTL1555-27-50 10:05:00 Test Item Value Reference Range Interpretation Comments C-REACTIVE PROTEIN (test code = 24.4 C-REACTIVE PROTEIN) [facility] KingwoodWvomffpPZDWLUAKMZ9841-02-84 10:05:00 Test Item Value Reference Range Interpretation Comments C-REACTIVE PROTEIN (test code = 24.4 C-REACTIVE PROTEIN) [facility] KingwoodSPECIAL LHSVELAWE2080-27-40 10:05:00 Test Item Value Reference Range Interpretation Comments Hgb A1C (test code = Hgb A1C) 5.5 [facility] KingwoodSoqqwyfWJQYKTZPWY4152-93-76 10:05:00 Test Item Value Reference Range Interpretation Comments Vancomycin AUC (test code = Vancomycin 12.5 AUC) [facility] GUBMD9423-03-35 17:52:00 Test Item Value Reference Range Interpretation Comments Total Protein (test code = Total 6.9 6.4-8.4 Protein) [facility] WGCZE6901-37-04 17:52:00 Test Item Value Reference Range Interpretation Comments Albumin Lvl (test code = Albumin Lvl) 3.0 3.5-5.0 [facility] [employer] QMHQF2118-06-77 17:52:00 Test Item Value Reference Range Interpretation Comments ALT (test code = ALT) 15 See_Comment [Auto mated message] The system which ge nerated this result transmit alex reference range : <=65. The reference range was not used to interpr et this result as karen l/abnormal. [facility] [employer] UEJMN0886-59-60 17:52:00 Test Item Value Reference Range Interpretation Comments AST (test code = AST) 12 See_Comment [Auto mated message] The system which ge nerated this result transmit alex reference range : <=37. The reference range was not used to interpr et this result as karen l/abnormal. [facility] [employer] VMSCP9088-82-35 17:52:00 Test Item Value Reference Range Interpretation Comments Alk Phos (test code = Alk Phos) 96 39-136 [facility] [employer] OXAFF6529-49-54 17:52:00 Test Item Value Reference Range Interpretation Comments Bili Total (test code = Bili Total) 0.4 0.2-1.3 [facility] [employer] NEILN5633-54-36 17:52:00 Test Item Value Reference Range Interpretation Comments B/C Ratio (test code = B/C Ratio) 23 1 6-25 [facility] [employer] [id number] 17:52:00 Test Item Value Reference Range Interpretation Comments Globulin (test code = Globulin) 3.9 2.7-4.2 [facility] [employer] [id number] 17:52:00 Test Item Value Reference Range Interpretation Comments A/G Ratio (test code = A/G Ratio) 0.8 1 0.7-1.6 [facility] [employer] [id number] 17:52:00 Test Item Value Reference Range Interpretation Comments Lactic Acid Lvl (test code = Lactic 0.8 0.5-2.2 Acid Lvl) [facility] AxsrryeSVTXPYMPN9171-79-93 17:52:00 Test Item Value Reference Range Interpretation Comments Total Protein (test code = Total 6.9 6.4-8.4 Protein) [facility]KsgunudAHDCWQSXB9490-59-28 17:52:00 Test Item Value Reference Range Interpretation Comments Albumin Lvl (test code = Albumin Lvl) 3.0 3.5-5.0 [facility] RasuqgnFLYSQWZLS4481-00-27 17:52:00 Test Item Value Reference Range Interpretation Comments ALT (test code = ALT) 15 See_Comment [Auto mated message] The system which ge nerated this result transmit alex reference range : <=65. The reference range was not used to interpr et this result as karen l/abnormal. [facility] BpesiygARYAYXWXS8929-99-74 17:52:00 Test Item Value Reference Range Interpretation Comments AST (test code = AST) 12 See_Comment [Auto mated message] The system which ge nerated this result transmit alex reference range : <=37. The reference range was not used to interpr et this result as karen l/abnormal. [facility] IyzezkmUNUMXPMTV7448-13-43 17:52:00 Test Item Value Reference Range Interpretation Comments Alk Phos (test code = Alk Phos) 96 39-136 [facility] CenterGdgetaeDDIUOGUGW4301-97-30 17:52:00 Test Item Value Reference Range Interpretation Comments Bili Total (test code = Bili Total) 0.4 0.2-1.3 [facility] LnfynzwSAQWSRNFH8179-66-23 17:52:00 Test Item Value Reference Range Interpretation Comments B/C Ratio (test code = B/C Ratio) 23 1 6-25 [facility] BnybirsQIHXZCLEZ7094-91-27 17:52:00 Test Item Value Reference Range Interpretation Comments Globulin (test code = Globulin) 3.9 2.7-4.2 [facility] FgvbmprRZWTQITQT7920-71-43 17:52:00 Test Item Value Reference Range Interpretation Comments A/G Ratio (test code = A/G Ratio) 0.8 1 0.7-1.6 [facility] DxlyunuAUEZTUEIN1187-39-93 17:52:00 Test Item Value Reference Range Interpretation Comments Lactic Acid Lvl (test code = Lactic 0.8 0.5-2.2 Acid Lvl) [facility] DezynfqYYUAAVLFPE7864-83-52 17:52:00 Test Item Value Reference Range Interpretation Comments WBC (test code = WBC) 7.7 3.7-10.4 [facility] CenterHilhmupFHBJEUWLCA6361-99-39 17:52:00 Test Item Value Reference Range Interpretation Comments RBC (test code = RBC) 3.77 4.70-6.10 [facility] AvttmgpRKTMSVPEYO1441-07-36 17:52:00 Test Item Value Reference Range Interpretation Comments Hgb (test code = Hgb) 11.0 14.0-18.0 [place] [address]-01-06 17:52:00 Test Item Value Reference Range Interpretation Comments Hct (test code = Hct) 34.2 42.0-54.0 [place] 675513-01-06 17:52:00 Test Item Value Reference Range Interpretation Comments MCV (test code = MCV) 90.6 80.0-94.0 [place] 675513-01-06 17:52:00 Test Item Value Reference Range Interpretation Comments MCH (test code = MCH) 29.3 pg 27.0-31.0 [place] 675513-01-06 17:52:00 Test Item Value Reference Range Interpretation Comments MCHC (test code = MCHC) 32.3 32.0-36.0 [place] 675513-01-06 17:52:00 Test Item Value Reference Range Interpretation Comments RDW (test code = RDW) 13.9 11.5-14.5 [place] 675513-01-06 17:52:00 Test Item Value Reference Range Interpretation Comments Platelet (test code = Platelet) 222 133-450 [facility]QghmsyfOVECPRWMAI0136-97-65 17:52:00 Test Item Value Reference Range Interpretation Comments MPV (test code = MPV) 7.4 7.4-10.4 [place] 675513-01-06 17:52:00 Test Item Value Reference Range Interpretation Comments PT (test code = PT) 13.0 s 12.0-14.7 [place] [address]-01-06 17:52:00 Test Item Value Reference Range Interpretation Comments INR (test code = INR) 0.98 1 0.85-1.17 [place] [address]-01-06 17:52:00 Test Item Value Reference Range Interpretation Comments PTT (test code = PTT) 30.2 s 22.9-35.8 [place] [address]-01-06 17:52:00 Test Item Value Reference Range Interpretation Comments Segs (test code = Segs) 69.1 45.0-75.0 [place] [address]-01-06 17:52:00 Test Item Value Reference Range Interpretation Comments Lymphocytes (test code = Lymphocytes) 19.4 20.0-40.0 [place] 675513-01-06 17:52:00 Test Item Value Reference Range Interpretation Comments Monocytes (test code = Monocytes) 7.6 2.0-12.0 [facility]viewMphqpreVAEFPDZNDI5847-61-71 17:52:00 Test Item Value Reference Range Interpretation Comments Eosinophils (test code = 3.2 See_Comment [A utomated message] The Eosinophils) system which ge nerated this result tra nsmitted reference range : <=4.0. The reference r brian was not used to int erpret this result as normal/abnormal . [place] 675513-01-06 17:52:00 Test Item Value Reference Range Interpretation Comments Basophils (test code = 0.7 See_Comment [Aut omated message] The Basophils) system which ge nerated this result tra nsmitted reference range : <=1.0. The reference r brian was not used to int erpret this result as normal/abnormal . [id number] 17:52:00 Test Item Value Reference Range Interpretation Comments Neutrophils # (test code = Neutrophils 5.3 1.5-8.1 #) [place] [id number] 17:52:00 Test Item Value Reference Range Interpretation Comments Lymphocytes # (test code = Lymphocytes 1.5 1.0-5.5 #) [id number] 17:52:00 Test Item Value Reference Range Interpretation Comments Monocytes # (test code 0.6 See_Comment [Aut omated message] The = Monocytes #) system which generated this result tra nsmitted reference range : <=0.8. The reference r brian was not used to int erpret this result as normal/abnormal . [place] 675513-01-06 17:52:00 Test Item Value Reference Range Interpretation Comments Eosinophils # (test code 0.2 See_Comment [A utomated message] The = Eosinophils #) system whic h generated this result tra nsmitted reference range : <=0.5. The reference r brian was not used to int erpret this result as normal/abnormal . [place] 675513-01-06 17:52:00 Test Item Value Reference Range Interpretation Comments Basophils # (test code 0.1 See_Comment [Aut omated message] The = Basophils #) system which generated this result tra nsmitted reference range : <=0.2. The reference r brian was not used to int erpret this result as normal/abnormal . [id number] 17:52:00 Test Item Value Reference Range Interpretation Comments PT (test code = PT) 13.0 s 12.0-14.7 [id number] 17:52:00 Test Item Value Reference Range Interpretation Comments INR (test code = INR) 0.98 1 0.85-1.17 [id number] 17:52:00 Test Item Value Reference Range Interpretation Comments PTT (test code = PTT) 30.2 s 22.9-35.8 [id number] 17:52:00 Test Item Value Reference Range Interpretation Comments Coronavirus (COVID-19) Not Detected (11/01/22 STEFF (test code = 11:52 AM) Coronavirus (COVID-19) STEFF) [id number] 17:52:00 Test Item Value Reference Range Interpretation Comments Coronavirus (COVID-19) Not Detected (11/01/22 STEFF (test code = 11:52 AM) Coronavirus (COVID-19) STEFF) [facility] METABOLIC [id number] 19:51:00 Test Item Value Reference Range Interpretation Comments SODIUM (test code = 144 mmol/L 136-145 N NA) POTASSIUM (test 4.0 mmol/L 3.5-5.1 N code = K) CHLORIDE (test code 107.0 mmol/L 98-107 N = CL) CARBON DIOXIDE 27.4 mmol/L 21-32 N (test code = CO2) GLUCOSE (test code 149 mg/dL 70-110 H = GLU) BLOOD UREA NITROGEN 25 mg/dL 7-18 H (test code = BUN) GLOMERULAR 64.1 >60 The Glomerular FILTRATION RATE Filtration R ate is a (test code = GFR) calculated parameterbased on serum Creatinin e, patient age and sex. GFR valuesless than 60 mL/min/1.73 squ are meters are mare cative ofChronic Kidne y Disease. Values less than 15 mL/min/1.73squa re meters indicate Kidney failure. The calculation for GFR is based on the CK D-EPI (2020) calculat ion. This formulais race indifferent and is the recommended for rinku for GFRby the [facility] on for Adults.The GFR will not calculate i f the sex is unknown or if thepatient's ag e is <18 years. CREATININE (test 1.16 mg/dL 0.55-1.30 N code = CREAT) TOTAL PROTEIN (test 6.7 g/dL 6.4-8.2 N code = PROT) ALBUMIN (test code 3.3 g/dL 3.4-5.0 L = ALB) GLOBULIN (test code 3.4 g/dL 2.2-4.2 N = GLOB) ALBUMIN/GLOBULIN 1.0 0.7-2.0 N RATIO (test code = A/G) CALCIUM (test code 9.4 mg/dL 8.2-10.1 N = CA) BILIRUBIN TOTAL 0.20 mg/dL 0.2-1.00 N (test code = BILT) SGOT/AST (test code 15.0 U/L 15-37 N = AST) SGPT/ALT (test code 17.0 U/L 12-78 N = ALT) ALKALINE 97 U/L 46-116 N PHOSPHATASE TOTAL (test code = ALKP) CBC W/AUTO [id number] 19:07:00 Test Item Value Reference Range Interpretation Comments WHITE BLOOD CELL (test code = WBC) 7.6 K/mm3 5.7-10.5 N RED BLOOD CELL (test code = RBC) 3.93 M/mm3 4.2-5.4 L HEMOGLOBIN (test code = HGB) 11.4 g/dL 12-16 L HEMATOCRIT (test code = HCT) 36.4 % 37-47 L MEAN CELL VOLUME (test code = MCV) 93 fL 80-98 N MEAN CELL HGB (test code = MCH) 29.0 pg 27-34 N MEAN CELL HGB CONCENTRATION (test 31.3 g/dL 30.8-34.1 N code = MCHC) RED CELL DISTRIBUTION WIDTH (test 13.2 % 11-16 N code = RDW) PLT (test code = PLT) 230 K/mm3 130-400 N MEAN PLATELET VOLUME (test code = 9.0 fL 8.9-12.1 N MPV) NEUTROPHIL % (test code = NT%) 69.1 % 45-70 N LYMPHOCYTE % (test code = LY%) 20.4 % 20-40 N MONOCYTE % (test code = MO%) 6.5 % 3-10 N EOSINOPHIL % (test code = EO%) 3.3 % 1-5 N BASOPHIL % (test code = BA%) 0.3 % 0.0-1.1 N NEUTROPHIL # (test code = NT#) 5.25 K/mm3 2.00-7.50 N LYMPHOCYTE # (test code = LY#) 1.55 K/mm3 1.50-4.00 N MONOCYTE # (test code = MO#) 0.49 K/mm3 0.2-0.8 N EOSINOPHIL # (test code = EO#) 0.25 K/mm3 0.04-0.4 N BASOPHIL # (test code = BA#) 0.02 K/mm3 0.02-0.10 N MANUAL DIFF REQUIRED (test code = NO MANUAL DIFF MDIFF) NUCLEATED RED BLOOD CELL (test 0 % 0-0 N code = NRBC) CBC W Auto Differential panel - [id number] 17:45:00 Test Item Value Reference Range Interpretation Comments white blood cell (test code = 7.6 K/mm3 5.7-10.5 white blood cell) red blood cell (test code = red 3.93 M/mm3 4.2-5.4 L blood cell) hemoglobin (test code = 11.4 g/dL 12-16 L hemoglobin) hematocrit (test code = 36.4 % 37-47 L hematocrit) mean cell volume (test code = mean 93 fL 80-98 cell volume) mean cell HGB (test code = mean 29.0 pg 27-34 cell HGB) mean cell HGB concentration (test 31.3 g/dL 30.8-34.1 code = mean cell HGB concentration) red cell distribution width (test 13.2 % 11-16 code = red cell distribution width) plt (test code = plt) 230 K/mm3 130-400 mean platelet volume (test code = 9.0 fL 8.9-12.1 mean platelet volume) neutrophil % (test code = 69.1 % 45-70 neutrophil %) lymphocyte % (test code = 20.4 % 20-40 lymphocyte %) monocyte % (test code = monocyte 6.5 % 3-10 %) eosinophil % (test code = 3.3 % 1-5 eosinophil %) basophil % (test code = basophil 0.3 % 0.0-1.1 %) neutrophil # (test code = 5.25 K/mm3 2.00-7.50 neutrophil #) lymphocyte # (test code = 1.55 K/mm3 1.50-4.00 lymphocyte #) monocyte # (test code = monocyte 0.49 K/mm3 0.2-0.8 #) eosinophil # (test code = 0.25 K/mm3 0.04-0.4 eosinophil #) basophil # (test code = basophil 0.02 K/mm3 0.02-0.10 #) manual diff required (test code = no manual diff manual diff required) nucleated red blood cell (test 0 % 0-0 code = nucleated red blood cell) performing lab: (test code = performing lab:) [facility] 2000 [facility] - Serum or [id number] 17:45:00 Test Item Value Reference Range Interpretation Comments sodium (test code = sodium) 144 mmol/L 136-145 potassium (test code = 4.0 mmol/L 3.5-5.1 potassium) chloride (test code = chloride) 107.0 mmol/L 98-107 carbon dioxide (test code = 27.4 mmol/L 21-32 carbon dioxide) glucose (test code = glucose) 149 mg/dL 70-110 H blood urea nitrogen (test code = 25 mg/dL 7-18 H blood urea nitrogen) glomerular filtration rate (test 64.1 >60 code = glomerular filtration rate) creatinine (test code = 1.16 mg/dL 0.55-1.30 creatinine) total protein (test code = total 6.7 g/dL 6.4-8.2 protein) albumin (test code = albumin) 3.3 g/dL 3.4-5.0 L globulin (test code = globulin) 3.4 g/dL 2.2-4.2 albumin/globulin ratio (test 1.0 0.7-2.0 code = albumin/globulin ratio) calcium (test code = calcium) 9.4 mg/dL 8.2-10.1 bilirubin total (test code = 0.20 mg/dL 0.2-1.00 bilirubin total) SGOT/AST (test code = SGOT/AST) 15.0 U/L 15-37 SGPT/ALT (test code = SGPT/ALT) 17.0 U/L 12-78 alkaline phosphatase total (test 97 U/L 46-116 code = alkaline phosphatase total) performing lab: (test code = performing lab:) [facility] St[facility] aureus [Presence] in Specimen by Organism specific [id number] 17:45:00 Test Item Value Reference Range Interpretation Comments MRSA surveillance screen (test code see below = MRSA surveillance screen) performing lab: (test code = performing lab:) [facility] surveillance [id number] 17:45:00 Test Item Value Reference Range Interpretation Comments mssa PCR surveillance screen (test see below code = mssa PCR surveillance screen) performing lab: (test code = performing lab:) [facility] Differential panel - [id number] 17:45:00 Test Item Value Reference Range Interpretation Comments white blood cell (test code = 7.6 K/mm3 5.7-10.5 white blood cell) red blood cell (test code = red 3.93 M/mm3 4.2-5.4 L blood cell) hemoglobin (test code = 11.4 g/dL 12-16 L hemoglobin) hematocrit (test code = 36.4 % 37-47 L hematocrit) mean cell volume (test code = mean 93 fL 80-98 cell volume) mean cell HGB (test code = mean 29.0 pg 27-34 cell HGB) mean cell HGB concentration (test 31.3 g/dL 30.8-34.1 code = mean cell HGB concentration) red cell distribution width (test 13.2 % 11-16 code = red cell distribution width) plt (test code = plt) 230 K/mm3 130-400 mean platelet volume (test code = 9.0 fL 8.9-12.1 mean platelet volume) neutrophil % (test code = 69.1 % 45-70 neutrophil %) lymphocyte % (test code = 20.4 % 20-40 lymphocyte %) monocyte % (test code = monocyte 6.5 % 3-10 %) eosinophil % (test code = 3.3 % 1-5 eosinophil %) basophil % (test code = basophil 0.3 % 0.0-1.1 %) neutrophil # (test code = 5.25 K/mm3 2.00-7.50 neutrophil #) lymphocyte # (test code = 1.55 K/mm3 1.50-4.00 lymphocyte #) monocyte # (test code = monocyte 0.49 K/mm3 0.2-0.8 #) eosinophil # (test code = 0.25 K/mm3 0.04-0.4 eosinophil #) basophil # (test code = basophil 0.02 K/mm3 0.02-0.10 #) manual diff required (test code = no manual diff manual diff required) nucleated red blood cell (test 0 % 0-0 code = nucleated red blood cell) performing lab: (test code = performing lab:) [facility]Com[facility] 2000 panel - Serum or [id number] 17:45:00 Test Item Value Reference Range Interpretation Comments sodium (test code = sodium) 144 mmol/L 136-145 potassium (test code = 4.0 mmol/L 3.5-5.1 potassium) chloride (test code = chloride) 107.0 mmol/L 98-107 carbon dioxide (test code = 27.4 mmol/L 21-32 carbon dioxide) glucose (test code = glucose) 149 mg/dL 70-110 H blood urea nitrogen (test code = 25 mg/dL 7-18 H blood urea nitrogen) glomerular filtration rate (test 64.1 >60 code = glomerular filtration rate) creatinine (test code = 1.16 mg/dL 0.55-1.30 creatinine) total protein (test code = total 6.7 g/dL 6.4-8.2 protein) albumin (test code = albumin) 3.3 g/dL 3.4-5.0 L globulin (test code = globulin) 3.4 g/dL 2.2-4.2 albumin/globulin ratio (test 1.0 0.7-2.0 code = albumin/globulin ratio) calcium (test code = calcium) 9.4 mg/dL 8.2-10.1 bilirubin total (test code = 0.20 mg/dL 0.2-1.00 bilirubin total) SGOT/AST (test code = SGOT/AST) 15.0 U/L 15-37 SGPT/ALT (test code = SGPT/ALT) 17.0 U/L 12-78 alkaline phosphatase total (test 97 U/L 46-116 code = alkaline phosphatase total) performing lab: (test code = performing lab:) [facility] Staphylococcus aureus [Presence] in Specimen by Organism specific [id number] 17:45:00 Test Item Value Reference Range Interpretation Comments MRSA surveillance screen (test code see below = MRSA surveillance screen) performing lab: (test code = performing lab:) [facility] [id number] 17:45:00 Test Item Value Reference Range Interpretation Comments mssa PCR surveillance screen (test see below code = mssa PCR surveillance screen) performing lab: (test code = performing lab:) [facility]- XR FLUORO [id number] 06:51:00 [facility] 1945 Sex: M Patient Name: RENE CHAMBERLAIN JR Unit No: [id number] EXAMS: CPT CODE: [id number] XR FLUORO NDL 98661 Fluoroscopically guided right knee aspiration FINDINGS: After informed consent was obtained a 22-gauge needle is inserted into the right knee under fluoroscopic guidance using sterile technique. 10 cc thin red fluid was aspirated. This is sent to the lab for analysis. The patient tolerated the procedure well. 6 seconds of fluoroscopy time was used on this exam. IMPRESSION: Fluoroscopically guided right knee aspiration. at 0651 Reported and s igned by: Marvin Morales M.D. CC: Jovanny Gauthier II, MD Technologist: Carol Johnson RT.(R) Transcribed D/ (0651) DanielSLJ [facility] NAME: RENE CHAMEBRLAIN JR [address] [facility] PHYS: Jovanny Persaud Oumou VICK MD : 1945 AGE: 77 SEX: M [place], [place] [address] LOC: Y.RAD PHONE #: [phone] EXAM DATE: 10/30/2022 STATUS: DEP CLI FAX #: [phone] RAD #: D/C DT PAGE 1 Signed Report Patient Name: RENE CHAMBERLAIN JR Unit No: [id number] EXAMS: CPT CODE:[id number] XR FLUORO NDL 02250 (Continued) Orig Print D/T: S: 10/31/2022 (0655) [facility] NAME: RENE CHAMBERLAIN JR [address] [facility] PHYS: Jovanny Persaud Oumou VICK MD : 1945 AGE: 77 SEX: M [place], [place] [address] LOC: Y.RAD PHONE #: [phone] EXAM DATE: 10/30/2022 STATUS: DEP CLI FAX #: [phone] RAD #: D/C DT PAGE 2 Signed Report- XR FLUORO [id number] 06:51:00 [facility] : 1945 Sex: M Patient Name: RENE CHAMBERLAIN JR Unit No: [id number] EXAMS: CPT CODE: [id number] XR FLUORO NDL 71558 Fluoroscopically guided right knee aspiration FINDINGS: After informed consent was obtained a 22-gauge needle is inserted into the right knee under fluoroscopic guidance using sterile technique. 10 cc thin red fluid was aspirated. This is sent to the lab for analysis. The patient tolerated the procedure well. 6 seconds of fluoroscopy time was used on this exam. IMPRESSION: Fluoroscopically guided right knee aspiration. at 0651 Reported and signed by: Marvin Morales M.D. CC: Jovanny Gauthier II, MD Technologist: Carol Johnson RT.(R) Transcribed D/ (0651) Bri [facility] NAME[facility]IN JR [address] [facility] Jovanny Persaud II, MD : 1945 AGE: 77 SEX: M [place] [address] LOC: Y.RAD PHONE #: [phone] EXAM DATE: 10/30/2022 STATUS: DEP CLI FAX #: [phone] RAD #: D/C DT PAGE 1 Signed Report Patient Name: RENE CHAMBERLAIN JR Unit No: [id number] EXAMS: CPT CODE: [id number] XR FLUORO NDL 27530 (Continued) Orig Print D/T: S: 10/31/2022 (0655) [facility] NAME: RENE CHAMBERLAIN JR [address] [facility] PHYS: Jovanny Persaud II, MD : 1945 AGE:77 SEX: M [place] [address] LOC: Y.RAD PHONE #: [phone] EXAM DATE: 10/30/2022 STATUS: DEP CLI FAX #: [phone] RAD #: D/C DT PAGE [address]/[id number] 19:08:00 Test Item Value Reference Range Interpretation Comments SYNOVIAL FLD BLOODY LT. YELLOW A COLOR (test code = COLSY) SYNOVIAL FLD BLOODY CLEAR APPEARANCE (test code = APPSY) SYNOVIAL FLD 2.0 mL VOLUME (test code = VOLSY) SYNOVIAL FLD WBC 99118.000 0-200 H (test code = /MM3 WBCSY) SYNOVIAL FLD RBC 95210.000 0-2 H NOTE: An au tomated (test code = /mm3 method is now b eing used RBCSY) to determinesyn ovial fluid WBC and R BC counts. The dif ferential willstill be pe rformed manually. SYNOVIAL FLD POLY 92 % 0-25 H (test code = POLYSY) SYNOVIAL FLD 1 % 0-78 N LYMPHOCYTE (test code = LYMPHSY) SYNOVIAL FLD 7 % 0-71 N MONOCYTE (test code = MONOSY) SPECIMEN COMMENT: RIGHT KNEE ASPIRATION BY DR MORALES SAVE ASPIRATE X2 WEEKSCell count and Differential panel - Synovial [id number] 15:15:00 Test Item Value Reference Range Interpretation Comments synovial fld color (test code bloody lt. yellow A = synovial fld color) synovial fld appearance (test bloody clear code = synovial fld appearance) synovial fld volume (test code 2.0 mL = synovial fld volume) synovial fld WBC (test code = 97040.000 /mm3 0-200 H synovial fld WBC) synovial fld RBC (test code = 28633.000 /mm3 0-2 H synovial fld RBC) synovial fld poly (test code = 92 % 0-25 H synovial fld poly) synovial fld lymphocyte (test 1 % 0-78 code = synovial fld lymphocyte) synovial fld monocyte (test 7 % 0-71 code = synovial fld monocyte) performing lab: (test code = performing lab:) [facility] MedicineMicroscopic observation [Identifier] in Specimen by Gram [id number] 15:15:00 Test Item Value Reference Range Interpretation Comments gram stain (test code = gram stain) see below performing lab: (test code = performing lab:) [facility] MedicineAFB [id number] 15:15:00 Test Item Value Reference Range Interpretation Comments AFB smear (test code = AFB smear) see below performing lab: (test code = performing lab:) [facility] MedicineFungus identified in Specimen by Fungus stain 2022-10-30 15:15:00 Test Item Value Reference Range Interpretation Comments smear fungus (test code = smear see below fungus) performing lab: (test code = performing lab:) [facility] MedicineCell count and Differential panel - Synovial [id number] 15:15:00 Test Item Value Reference Range Interpretation Comments synovial fld color (test code bloody lt. yellow A = synovial fld color) synovial fld appearance (test bloody clear code = synovial fld appearance) synovial fld volume (test code 2.0 mL = synovial fld volume) synovial fld WBC (test code = 54394.000 /mm3 0-200 H synovial fld WBC) synovial fld RBC (test code = 44938.000 /mm3 0-2 H synovial fld RBC) synovial fld poly (test code = 92 % 0-25 H synovial fld poly) synovial fld lymphocyte (test 1 % 0-78 code = synovial fld lymphocyte) synovial fld monocyte (test 7 % 0-71 code = synovial fld monocyte) performing lab: (test code = performing lab:) [facility] Hospital[facility]sc[facility] observation [Identifier] in Specimen by Gram [id number] 15:15:00 Test Item Value Reference Range Interpretation Comments gram stain (test code = gram stain) see below performing lab: (test code = performing lab:) [facility] HospitalAF[facility] [id number] 15:15:00 Test Item Value Reference Range Interpretation Comments AFB smear (test code = AFB smear) see below performing lab: (test code = performing lab:) [facility] HospitalFungus identified in Specimen by Fungus stain 2022-10-30 15:15:00 Test Item Value Reference Range Interpretation Comments smear fungus (test code = smear see below fungus) performing lab: (test code = performing lab:) [facility] HospitalCHEM [id number] 08:47:00 Test Item Value Reference Range Interpretation Comments Glucose Lvl (test code = Glucose Lvl) 94 70-99 [facility] [id number] 08:47:00 Test Item Value Reference Range Interpretation Comments BUN (test code = BUN) 35 7-22 [facility] [id number] 08:47:00 Test Item Value Reference Range Interpretation Comments Creatinine Lvl (test code = Creatinine 1.18 0.50-1.40 Lvl) [facility]The [facility] Fashion [id number] 08:47:00 Test Item Value Reference Range Interpretation Comments Sodium Lvl (test code = Sodium Lvl) 142 135-145 [place] [id number] 08:47:00 Test Item Value Reference Range Interpretation Comments Potassium Lvl (test code = Potassium 4.0 3.5-5.1 Lvl) [address]10-05 08:47:00 Test Item Value Reference Range Interpretation Comments Chloride Lvl (test code = Chloride Lvl) 113 95-109 [address]10-05 08:47:00 Test Item Value Reference Range Interpretation Comments CO2 (test code = CO2) 24 24-32 [place] [address]-10-05 08:47:00 Test Item Value Reference Range Interpretation Comments Calcium Lvl (test code = Calcium Lvl) 8.9 8.5-10.[address]10-05 08:47:00 Test Item Value Reference Range Interpretation Comments AGAP (test code = AGAP) 9.0 10.0-20.[address]10-05 08:47:00 Test Item Value Reference Range Interpretation Comments eGFR (test code = eGFR) 63 [place] [address]-10-05 08:47:00 Test Item Value Reference Range Interpretation Comments Segs (test code = Segs) 57.9 45.0-75.[address]10-05 08:47:00 Test Item Value Reference Range Interpretation Comments Lymphocytes (test code = Lymphocytes) 28.6 20.0-40.[address]10-05 08:47:00 Test Item Value Reference Range Interpretation Comments Monocytes (test code = Monocytes) 8.1 2.0-12.[address]10-05 08:47:00 Test Item Value Reference Range Interpretation Comments Eosinophils (test code = 4.6 See_Comment [A utomated message] The Eosinophils) system which ge nerated this result tra nsmitted reference range : <=4.0. The reference r brian was not used to int erpret this result as normal/abnormal . [place] [address]-10-05 08:47:00 Test Item Value Reference Range Interpretation Comments Basophils (test code = 0.8 See_Comment [Aut omated message] The Basophils) system which ge nerated this result tra nsmitted reference range : <=1.0. The reference r brian was not used to int erpret this result as normal/abnormal . [place] [address]-10-05 08:47:00 Test Item Value Reference Range Interpretation Comments Neutrophils # (test code = Neutrophils 3.1 1.5-8.1 #) [place] [address]-10-05 08:47:00 Test Item Value Reference Range Interpretation Comments Lymphocytes # (test code = Lymphocytes 1.5 1.0-5.5 #) [place] [address]-10-05 08:47:00 Test Item Value Reference Range Interpretation Comments Monocytes # (test code 0.4 See_Comment [Aut omated message] The = Monocytes #) system which generated this result tra nsmitted reference range : <=0.8. The reference r brian was not used to int erpret this result as normal/abnormal . [place] [address]-10-05 08:47:00 Test Item Value Reference Range Interpretation Comments Eosinophils # (test code 0.2 See_Comment [A utomated message] The = Eosinophils #) system whic h generated this result tra nsmitted reference range : <=0.5. The reference r brian was not used to int erpret this result as normal/abnormal . [place] [address]512-10-05 08:47:00 Test Item Value Reference Range Interpretation Comments WBC (test code = WBC) 5.4 3.7-10.4 [place] [address]-10-05 08:47:00 Test Item Value Reference Range Interpretation Comments RBC (test code = RBC) 3.37 4.70-6.10 [place] [address]-10-05 08:47:00 Test Item Value Reference Range Interpretation Comments Hgb (test code = Hgb) 10.3 14.0-18.0 [place] [address]-10-05 08:47:00 Test Item Value Reference Range Interpretation Comments Hct (test code = Hct) 31.2 42.0-54.0 [place] [address]-10-05 08:47:00 Test Item Value Reference Range Interpretation Comments MCV (test code = MCV) 92.8 80.0-94.0 [place] [address]-10-05 08:47:00 Test Item Value Reference Range Interpretation Comments MCH (test code = MCH) 30.5 pg 27.0-31.0 [place] [address]-10-05 08:47:00 Test Item Value Reference Range Interpretation Comments MCHC (test code = MCHC) 32.8 32.0-36.0 [place] 675512-10-05 08:47:00 Test Item Value Reference Range Interpretation Comments RDW (test code = RDW) 15.1 11.5-14.5 [place] [address]-10-05 08:47:00 Test Item Value Reference Range Interpretation Comments Platelet (test code = Platelet) 143 133-450 [place] [address]-10-05 08:47:00 Test Item Value Reference Range Interpretation Comments MPV (test code = MPV) 7.5 7.4-10.4 [place] 784942-10-04 08:55:00 Test Item Value Reference Range Interpretation Comments Glucose Lvl (test code = Glucose Lvl) 109 70-99 [place] 784942-10-04 08:55:00 Test Item Value Reference Range Interpretation Comments BUN (test code = BUN) 43 7-22 [place] 784942-10-04 08:55:00 Test Item Value Reference Range Interpretation Comments Creatinine Lvl (test code = Creatinine 1.52 0.50-1.40 Lvl) [place] 784942-10-04 08:55:00 Test Item Value Reference Range Interpretation Comments Sodium Lvl (test code = Sodium Lvl) 138 135-145 [place] 784942-10-04 08:55:00 Test Item Value Reference Range Interpretation Comments Potassium Lvl (test code = Potassium 4.3 3.5-5.1 Lvl) [place] 784942-10-04 08:55:00 Test Item Value Reference Range Interpretation Comments Chloride Lvl (test code = Chloride Lvl) 110 95-109 [place] 784942-10-04 08:55:00 Test Item Value Reference Range Interpretation Comments CO2 (test code = CO2) 24 24-32 [place] 784942-10-04 08:55:00 Test Item Value Reference Range Interpretation Comments Calcium Lvl (test code = Calcium Lvl) 9.1 8.5-10.5 [place] 784942-10-04 08:55:00 Test Item Value Reference Range Interpretation Comments AGAP (test code = AGAP) 8.3 10.0-20.0 [facility] [id number] 08:55:00 Test Item Value Reference Range Interpretation Comments eGFR (test code = eGFR) 47 [facility] 08:55:00 Test Item Value Reference Range Interpretation Comments Hgb (test code = Hgb) 11.0 14.0-18.0 [facility]vnuxdzEQUSPKFDBC3417-99-88 08:55:00 Test Item Value Reference Range Interpretation Comments Hct (test code = Hct) 32.9 42.0-54.0 [facility] Stain Yncitz2691-30-65 15:38:00 Test Item Value Reference Range Interpretation Comments Gram Stain Report No Wbc'S Or Organisms (test code = Gram Seen Stain Report) [facility] Aspirate/Body Fluid/Rcehqh7491-29-65 15:38:00 Test Item Value Reference Range Interpretation Comments Culture: Rare Staphylococcus Aspirate/Body Species, Not S. aureus , Fluid/Tissue (test Susceptibility To Follow code = Culture: Aspirate/Body Fluid/Tissue) [facility]: Fznysbgmg0411-00-39 14:44:00 Test Item Value Reference Range Interpretation Comments Culture: Anaerobic No Anaerobes Isolated (test code = Culture: After 4 Days Anaerobic) [facility]: Mqakhrnnk7645-60-47 14:44:00 Test Item Value Reference Range Interpretation Comments Culture: Anaerobic No Anaerobes Isolated (test code = Culture: After 4 Days Anaerobic) [facility] Stain Etvgtp2617-62-61 14:44:00 Test Item Value Reference Range Interpretation Comments Gram Stain Report No Wbc'S Or Organisms (test code = Gram Seen Stain Report) [facility] Aspirate/Body Fluid/Wvvljq6321-00-81 14:44:00 Test Item Value Reference Range Interpretation Comments Culture: Aspirate/Body No Growth At 4 Days Fluid/Tissue (test code = Culture: Aspirate/Body Fluid/Tissue) [facility]2022-09-29 16:04:00 Test Item Value Reference Range Interpretation Comments Glucose Lvl (test code = Glucose Lvl) 91 70-99 [facility]2022-09-29 16:04:00 Test Item Value Reference Range Interpretation Comments BUN (test code = BUN) 31 7-22 [place] 784942-09-29 16:04:00 Test Item Value Reference Range Interpretation Comments Creatinine Lvl (test code = Creatinine 1.34 0.50-1.40 Lvl) [place] 784942-09-29 16:04:00 Test Item Value Reference Range Interpretation Comments Sodium Lvl (test code = Sodium Lvl) 139 135-145 [place] 784942-09-29 16:04:00 Test Item Value Reference Range Interpretation Comments Potassium Lvl (test code = Potassium 4.5 3.5-5.1 Lvl) [place] 784942-09-29 16:04:00 Test Item Value Reference Range Interpretation Comments Chloride Lvl (test code = Chloride Lvl) 110 95-109 [place] 784942-09-29 16:04:00 Test Item Value Reference Range Interpretation Comments CO2 (test code = CO2) 24 24-32 [place] 784942-09-29 16:04:00 Test Item Value Reference Range Interpretation Comments Calcium Lvl (test code = Calcium Lvl) 9.8 8.5-10.5 [place] 784942-09-29 16:04:00 Test Item Value Reference Range Interpretation Comments Total Protein (test code = Total 7.3 6.4-8.4 Protein) [place] 784942-09-29 16:04:00 Test Item Value Reference Range Interpretation Comments Albumin Lvl (test code = Albumin Lvl) 3.5 3.5-5.0 [place] 784942-09-29 16:04:00 Test Item Value Reference Range Interpretation Comments ALT (test code = ALT) 20 See_Comment [Auto mated message] The system which ge nerated this result transmit alex reference range : <=65. The reference range was not used to interpr et this result as karen l/abnormal. [place] 784942-09-29 16:04:00 Test Item Value Reference Range Interpretation Comments AST (test code = AST) 15 See_Comment [Auto mated message] The system which ge nerated this result transmit alex reference range : <=37. The reference range was not used to interpr et this result as karen l/abnormal. [place] 784942-09-29 16:04:00 Test Item Value Reference Range Interpretation Comments Alk Phos (test code = Alk Phos) 92 39-136 [facility]2022-09-29 16:04:00 Test Item Value Reference Range Interpretation Comments Bili Total (test code = Bili Total) 0.4 0.2-1.3 [place] 784942-09-29 16:04:00 Test Item Value Reference Range Interpretation Comments AGAP (test code = AGAP) 9.5 10.0-20.0 [facility]2022-09-29 16:04:00 Test Item Value Reference Range Interpretation Comments B/C Ratio (test code = B/C Ratio) 23 1 6-25 [place] 784942-09-29 16:04:00 Test Item Value Reference Range Interpretation Comments Globulin (test code = Globulin) 3.8 2.7-4.2 [place] 784942-09-29 16:04:00 Test Item Value Reference Range Interpretation Comments A/G Ratio (test code = A/G Ratio) 0.9 1 0.7-1.6 [place] 784942-09-29 16:04:00 Test Item Value Reference Range Interpretation Comments eGFR (test code = eGFR) 54 [facility]ogsqwjFUZOXBUIIG5818-23-12 16:04:00 Test Item Value Reference Range Interpretation Comments WBC (test code = WBC) 6.2 3.7-10.4 [place] 675512-09-29 16:04:00 Test Item Value Reference Range Interpretation Comments RBC (test code = RBC) 4.01 4.70-6.10 [place] 675512-09-29 16:04:00 Test Item Value Reference Range Interpretation Comments Hgb (test code = Hgb) 12.3 14.0-18.0 [place] 675512-09-29 16:04:00 Test Item Value Reference Range Interpretation Comments Hct (test code = Hct) 37.2 42.0-54.0 [place] 675512-09-29 16:04:00 Test Item Value Reference Range Interpretation Comments MCV (test code = MCV) 92.8 80.0-94.0 [place] 675512-09-29 16:04:00 Test Item Value Reference Range Interpretation Comments MCH (test code = MCH) 30.7 pg 27.0-31.0 [facility]PxgypyuVUJKFIVNJT2441-78-97 16:04:00 Test Item Value Reference Range Interpretation Comments MCHC (test code = MCHC) 33.1 32.0-36.0 [facility]viewSxlhhwiKOYVYBVBHM0886-66-55 16:04:00 Test Item Value Reference Range Interpretation Comments RDW (test code = RDW) 14.7 11.5-14.5 [facility]viewYcpkykcOYSIHPLJMA6564-39-07 16:04:00 Test Item Value Reference Range Interpretation Comments Platelet (test code = Platelet) 179 133-450 [facility]viewQrotlinRPJBNDENYB7740-05-82 16:04:00 Test Item Value Reference Range Interpretation Comments MPV (test code = MPV) 7.4 7.4-10.4 [facility]viewNfitchkDZAVVOEUKG8473-84-13 16:04:00 Test Item Value Reference Range Interpretation Comments Segs (test code = Segs) 57.0 45.0-75.0 [facility]viewUlttgmrQWAYPRQIPI7355-50-71 16:04:00 Test Item Value Reference Range Interpretation Comments Lymphocytes (test code = Lymphocytes) 30.3 20.0-40.0 [facility]viewHlivwibRYFMYFRSWF7597-76-19 16:04:00 Test Item Value Reference Range Interpretation Comments Monocytes (test code = Monocytes) 8.5 2.0-12.0 [facility]viewEqcfkytTOLGGZXDKI4547-68-32 16:04:00 Test Item Value Reference Range Interpretation Comments Eosinophils (test code = 3.5 See_Comment [A utomated message] The Eosinophils) system which ge nerated this result tra nsmitted reference range : <=4.0. The reference r brian was not used to int erpret this result as normal/abnormal . [facility]viewKnhwhibTQTGSLOZYB8215-94-02 16:04:00 Test Item Value Reference Range Interpretation Comments Basophils (test code = 0.7 See_Comment [Aut omated message] The Basophils) system which ge nerated this result tra nsmitted reference range : <=1.0. The reference r brian was not used to int erpret this result as normal/abnormal . [facility]viewLmufpwwOJPDMSTEBV2113-88-36 16:04:00 Test Item Value Reference Range Interpretation Comments Neutrophils # (test code = Neutrophils 3.6 1.5-8.1 #) [facility]viewWusgmpcMVSKIFZCYI1531-95-85 16:04:00 Test Item Value Reference Range Interpretation Comments Lymphocytes # (test code = Lymphocytes 1.9 1.0-5.5 #) [facility]OY[facility]BAW5951[facility]27-[facility] 16:04:00 Test Item Value Reference Range Interpretation Comments Monocytes # (test code 0.5 See_Comment [Aut omated message] The = Monocytes #) system which generated this result tra nsmitted reference range : <=0.8. The reference r brian was not used to int erpret this result as normal/abnormal . [facility] CenterRkfjewxKENRHJUZIU2361-74-43 16:04:00 Test Item Value Reference Range Interpretation Comments Eosinophils # (test code 0.2 See_Comment [A utomated message] The = Eosinophils #) system whic h generated this result tra nsmitted reference range : <=0.5. The reference r brian was not used to int erpret this result as normal/abnormal . [facility] HWMKUBYFS1154-66-42 16:04:00 Test Item Value Reference Range Interpretation Comments Hgb A1C (test code = Hgb A1C) 5.5 [facility] RMDHAAKJZ5395-04-98 16:04:00 Test Item Value Reference Range Interpretation Comments Nicotine Lvl (test code = Nicotine Lvl) no gt [facility] QVLUGPFRM5609-05-02 16:04:00 Test Item Value Reference Range Interpretation Comments Cotinine Lvl (test code = Cotinine Lvl) no gt [facility] Code Seimkf7238-52-50 19:39:57 Test Item Value Reference Interpretation Comments Range TROPONIN I (test 0.010 ng/mL See_Comment [Automated code = 3845764315) message] The system which generated this result transmitted reference range : <=0.034. The reference range was not used to interpret this result as normal/abnormal . DMITRIY (test code = Reference (Normal) DMITRIY) Range (defined by the 99th percentile reference limit): <= 0.034 ng/mL Note: Cardiac troponin begins to rise 3-4 hours after the onset of ischemia. Repeat in 4-6 hours if the sample was drawn within 3-4 hours of the onset of the symptom and found normal. Diagnosis of myocardial injury is made with acute changes in cTn concentrations with at least one serial sample above the 99th percentile upper reference limit (URL), taken together with the patient's clinical presentation. Biotin has been reported to cause a negative bias, interpret results relative to patient's use of biotin. Lab Interpretation Normal (test code = 22048-8) [facility] Code Khofyt5388-74-52 19:35:36 Test Item Value Reference Range Interpretation Comments APTT Patient (test See_Comment [Automat ed code = 3173-2) message] The system which generated this result transmitted reference range : 23 - 38 Seconds . The reference range was not used to interpr et this result as normal/abnormal . DMITRIY (test code = DMITRIY) The [facility] patient population mean normal value for aPTT is 30 seconds. Lab Interpretation Normal (test code = 16605-9) [facility] without Diff - Code Rlehgz8985-15-72 19:33:55 Test Item Value Reference Range Interpretation Comments WBC (test code = 6690-2) See_Comment [A utomated message] The system [employer] generated this result transmit alex reference range : 4.20 - 10.70 10*3/?L. The reference range was not used to interpret this result as normal/abnormal . RBC (test code = 789-8) See_Comment L [Au tomated message] The system [employer] generated this result transmit alex reference range : 4.26 - 5.52 10* 6/?L. The reference r brian was not used to interpret this result as normal/abnormal . HGB (test code = 718-7) 11.7 g/dL 12.2-16.4 L HCT (test code = 4544-3) 35.5 % 38.4-49.3 L MCH (test code = 785-6) 30.2 pg 26.1-32.7 MCV (test code = 787-2) 91.5 fL 81.7-95.6 MCHC (test code = 786-4) 33.0 g/dL 31.2-35 PLT (test code = 777-3) See_Comment [Au tomated message] The system [employer] generated this result transmit alex reference range : 150 - 328 10*3/?L. The reference range was not used to interpret this result as normal/abnormal . MPV (test code = 9.4 fL 9.8-13 L 75699-8) RDW-CV (test code = 13.7 % 12.1-15.4 788-0) RDW-SD (test code = 46.0 fL 38.5-51.6 07442-3) NRBC x10^3 (test code = See_Comment [Au tomated message] [id number]) The system [employer] generated this result transmit alex reference range : 10*3/?L. The reference range was not used to interpret this result as normal/abnormal . NRBC/100 WBC (test code See_Comment [Au tomated message] = 0397715616) The system [employer] generated this result transmit alex reference range : 0.0 - 10.0 /100 WBC s. The reference r brian was not used to interpret this result as normal/abnormal . IPF % (test code = 6889136841) Lab Interpretation (test Abnormal code = 52645-9) [facility] CenterProth[facility]bin [facility] / INR - Code Wnfgtw8029-07-67 19:33:19 Test Item Value Reference Range Interpretation Comments PROTIME PATIENT (test See_Comment [Auto mated message] code = 5964-2) The system [employer] generated this result transmitted ref erence range: 12.0 - 1 4.7 Seconds. The re ference range was not u sed to interpret this result as normal/abnor mal. INR (test code = 6301-6) Nor mal INR <1.1; Warfarin Therap eutic range 2.0 to 3. 0 or 2.5 to 3.5, dep ending upon the indica tions. Lab Interpretation (test Normal code = 12510-8) [facility] CenterBasi Metabolic Panel (NA, K, CL, CO2, Glucose, BUN, Creatinine, CA) - Code Creinc5481-50-99 19:27:54 Test Item Value Reference Range Interpretation Comments NA (test code = 136 mmol/L 135-145 2165877497) K (test code = 4.9 mmol/L 3.5-5 8407649857) CL (test code = 102 mmol/L 98-108 1260615607) CO2 TOTAL (test code = 27 mmol/L 23-31 6762631595) AGAP (test code = 2-16 4841416577) BUN (test code = 31 mg/dL 7-23 H 4002484027) GLUCOSE (test code = 115 mg/dL 70-110 H 7163647091) CREATININE (test code = 1.56 mg/dL 0.6-1.25 H 3132386459) CALCIUM (test code = 9.8 mg/dL 8.6-10.6 4494587221) eGFR (test code = mL/min/1.73m2 1410023029) DMITRIY (test code = DMITRIY) Association of Glomerular Filtration Rate (GFR) and Staging of Kidney Disease* + --+ --+ ------+| GFR (mL/min/1.73 m2) ?| With Kidney Damage ?| ?Without Kidney Damage+ --------+ --------+ +| ?>90 ?| ?Stage one ?| ? Normal ?+ ---+ ---+ -------+| ?60-89 ?| ?Stage two ?| ? Decreased GFR ? + --+ --+ ------+| ?30-59 ?| ?Stage three ?| ? Stage three ? + --+ --+ ------+| ?15-29 ?| ?Stage four ? | ? Stage four ?+ ---+ ---+ -------+| ?<15 (or dialysis) ? ?| ?Stage five ? | ? Stage five ?+ ---+ ---+ -------+ *Each stage assumes the associated GFR level has been in effect for at least three months. ?Stages 1 to 5, with or without kidney disease, indicate chronic kidney disease. Notes: Determination of stages one and two (with eGFR >59mL/min/1.73 m2) requires estimation of kidney damage for at least three months as defined by structural or functional abnormalities of the kidney, manifested by either:Pathological abnormalities or Markers of kidney damage (including abnormalities in the composition of the blood or urine or abnormalities in imaging tests). Lab Interpretation Abnormal (test code = 23342-5) [facility] CenterCOMPRE[facility]ENSIVE METABOLIC [id number] 13:41:00 Test Item Value Reference Range Interpretation Comments SODIUM (test code = 141 mmol/L 136-145 N NA) POTASSIUM (test code = 4.9 mmol/L 3.5-5.1 N K) CHLORIDE (test code = 107.0 mmol/L 98-107 N CL) CARBON DIOXIDE (test 25.7 mmol/L 21-32 N code = CO2) GLUCOSE (test code = 90 mg/dL 70-110 N GLU) BLOOD UREA NITROGEN 31 mg/dL 7-18 H (test code = BUN) GLOMERULAR FILTRATION 47.4 >60 Unit o f measure: RATE (test code = GFR) mL/mi n/1.73 c0Wceeapujj Range:Healthy Adults >90 mL/min/1.73 m2 For Chronic Kidney Disease: Stage II Mild Decrease i n GFR 60-90 Stage III Moderate Decrea se in GFR 30-59 St age IV Severe Decre ase in GFR 15-29 St age V Kidney Failur e <15 CREATININE (test code 1.44 mg/dL 0.55-1.30 H = CREAT) TOTAL PROTEIN (test 6.5 g/dL 6.4-8.2 N code = PROT) ALBUMIN (test code = 3.2 g/dL 3.4-5.0 L ALB) GLOBULIN (test code = 3.3 g/dL 2.2-4.2 N GLOB) ALBUMIN/GLOBULIN RATIO 1.0 0.7-2.0 N (test code = A/G) CALCIUM (test code = 9.5 mg/dL 8.2-10.1 N CA) BILIRUBIN TOTAL (test 0.40 mg/dL 0.2-1.00 N code = BILT) SGOT/AST (test code = 14.0 U/L 15-37 L AST) SGPT/ALT (test code = 18.0 U/L 12-78 N Please note new ALT) normal range. ALKALINE PHOSPHATASE 80 U/L 46-116 N TOTAL (test code = ALKP) CBC W/AUTO [id number] 13:12:00 Test Item Value Reference Range Interpretation Comments WHITE BLOOD CELL (test code = WBC) 6.2 K/mm3 5.7-10.5 N RED BLOOD CELL (test code = RBC) 3.63 M/mm3 4.2-5.4 L HEMOGLOBIN (test code = HGB) 10.9 g/dL 12-16 L HEMATOCRIT (test code = HCT) 33.6 % 37-47 L MEAN CELL VOLUME (test code = MCV) 93 fL 80-98 N MEAN CELL HGB (test code = MCH) 30.0 pg 27-34 N MEAN CELL HGB CONCENTRATION (test 32.4 g/dL 30.8-34.1 N code = MCHC) RED CELL DISTRIBUTION WIDTH (test 13.9 % 11-16 N code = RDW) PLT (test code = PLT) 199 K/mm3 130-400 N MEAN PLATELET VOLUME (test code = 10.6 fL 8.9-12.1 N MPV) NEUTROPHIL % (test code = NT%) 60.9 % 45-70 N LYMPHOCYTE % (test code = LY%) 25.9 % 20-40 N MONOCYTE % (test code = MO%) 9.8 % 3-10 N EOSINOPHIL % (test code = EO%) 2.4 % 1-5 N BASOPHIL % (test code = BA%) 0.5 % 0.0-1.1 N NEUTROPHIL # (test code = NT#) 3.78 K/mm3 2.00-7.50 N LYMPHOCYTE # (test code = LY#) 1.61 K/mm3 1.50-4.00 N MONOCYTE # (test code = MO#) 0.61 K/mm3 0.2-0.8 N EOSINOPHIL # (test code = EO#) 0.15 K/mm3 0.04-0.4 N BASOPHIL # (test code = BA#) 0.03 K/mm3 0.02-0.10 N MANUAL DIFF REQUIRED (test code = NO MANUAL DIFF MDIFF) NUCLEATED RED BLOOD CELL (test 0 % 0-0 N code = NRBC) TROPONIN [id number] 00:28:19 Test Item Value Reference Interpretation Comments Range TROPONIN I (test 0.015 ng/mL See_Comment [Automated code = 9681108937) message] The system which generated this result transmitted reference range : <=0.034. The reference range was not used to interpret this result as normal/abnormal . DMITRIY (test code = Reference (Normal) DMITRIY) Range (defined by the 99th percentile reference limit): <= 0.034 ng/mL Note: Cardiac troponin begins to rise 3-4 hours after the onset of ischemia. Repeat in 4-6 hours if the sample was drawn within 3-4 hours of the onset of the symptom and found normal. Diagnosis of myocardial injury is made with acute changes in cTn concentrations with at least one serial sample above the 99th percentile upper reference limit (URL), taken together with the patient's clinical presentation. Biotin has been reported to cause a negative bias, interpret results relative to patient's use of biotin. Lab Interpretation Normal (test code = 09361-6) [facility] CenterN-TERMINAL ONL-[id number] 00:24:59 Test Item Value Reference Range Interpretation Comments NT-proBNP (test code 1350 pg/mL See_Comment H [Autom ated = 4231349937) message] The system which generated this result transmitted reference range : <=450. The reference range was not used to interpret this result as normal/abnormal . DMITRIY (test code = DMITRIY) Biotin has been reported to cause a negative bias, interpret results relative to patient's use of biotin. Lab Interpretation Abnormal (test code = 85886-3) [facility] (NA, K, CL, CO2, GLUCOSE, BUN, CREATININE, CA)2022-06-24 00:15:38 Test Item Value Reference Range Interpretation Comments NA (test code = 138 mmol/L 135-145 0439309134) K (test code = 4.4 mmol/L 3.5-5 9054551562) CL (test code = 106 mmol/L 98-108 2063864352) CO2 TOTAL (test code = 26 mmol/L 23-31 2156581613) AGAP (test code = 2-16 3524062355) BUN (test code = 30 mg/dL 7-23 H 2571182944) GLUCOSE (test code = 110 mg/dL 70-110 7847008997) CREATININE (test code = 1.51 mg/dL 0.6-1.25 H 9932779079) CALCIUM (test code = 9.5 mg/dL 8.6-10.6 3141153691) eGFR (test code = mL/min/1.73m2 9805399252) DMITRIY (test code = DMITRIY) Association of Glomerular Filtration Rate (GFR) and Staging of Kidney Disease* + --+ --+ ------+| GFR (mL/min/1.73 m2) ?| With Kidney Damage ?| ?Without Kidney Damage+ --------+ --------+ +| ?>90 ?| ?Stage one ?| ? Normal ?+ ---+ ---+ -------+| ?60-89 ?| ?Stage two ?| ? Decreased GFR ? + --+ --+ ------+| ?30-59 ?| ?Stage three ?| ? Stage three ? + --+ --+ ------+| ?15-29 ?| ?Stage four ? | ? Stage four ?+ ---+ ---+ -------+| ?<15 (or dialysis) ? ?| ?Stage five ? | ? Stage five ?+ ---+ ---+ -------+ *Each stage assumes the associated GFR level has been in effect for at least three months. ?Stages 1 to 5, with or without kidney disease, indicate chronic kidney disease. Notes: Determination of stages one and two (with eGFR >59mL/min/1.73 m2) requires estimation of kidney damage for at least three months as defined by structural or functional abnormalities of the kidney, manifested by either:Pathological abnormalities or Markers of kidney damage (including abnormalities in the composition of the blood or urine or abnormalities in imaging tests). Lab Interpretation Abnormal (test code = 43536-8) [facility] WITH [id number] 00:02:57 Test Item Value Reference Range Interpretation Comments WBC (test code = See_Comment H [Automated 2590-2) message] The sy stem which generated this result transmitted reference range : 4.20 - 10.70 10*3/?L. The reference range was not used to interpret this result as normal/abnormal . RBC (test code = See_Comment L [Automated 789-8) message] The sy stem which generated this result transmitted reference range : 4.26 - 5.52 10*6/?L. The reference range was not used to interpret this result as normal/abnormal . HGB (test code = 11.2 g/dL 12.2-16.4 L 718-7) HCT (test code = 34.2 % 38.4-49.3 L 4544-3) MCV (test code = 91.9 fL 81.7-95.6 787-2) MCH (test code = 30.1 pg 26.1-32.7 785-6) MCHC (test code = 32.7 g/dL 31.2-35 786-4) RDW-SD (test code = 48.3 fL 38.5-51.6 03262-7) RDW-CV (test code = 14.2 % 12.1-15.4 788-0) PLT (test code = See_Comment [Automated 777-3) message] The sy stem which generated this result transmitted reference range : 150 - 328 10*3/ ?L. The reference r brian was not used to interpret this result as normal/abnormal . MPV (test code = 10.1 fL 9.8-13 53134-4) NRBC/100 WBC (test See_Comment [Automat ed code = 5854202828) message] The system which generated this result transmitted reference range : 0.0 - 10.0 /100 WBCs. The refer ence range was not u sed to interpret th is result as normal/abnormal . NRBC x10^3 (test code See_Comment [Auto mated = 8841997385) message] The s ystem which generated this result transmitted reference range : 10*3/?L. The reference range was not used to interpret this result as normal/abnormal . GRAN MAT (NEUT) % 76.8 % (test code = 770-8) IMM GRAN % (test code 0.50 % = 7626402327) LYMPH % (test code = 12.2 % 736-9) MONO % (test code = 9.6 % 5905-5) EOS % (test code = 0.6 % 713-8) BASO % (test code = 0.3 % 706-2) GRAN MAT x10^3(ANC) 8.95 10*3/uL 1.99-6.95 H (test code = 3525413040) IMM GRAN x10^3 (test 0.06 10*3/uL 0-0.06 code = 0718327479) LYMPH x10^3 (test code 1.42 10*3/uL 1.09-3.23 = 731-0) MONO x10^3 (test code 1.12 10*3/uL 0.36-1.02 H = 742-7) EOS x10^3 (test code = 0.07 10*3/uL 0.06-0.53 711-2) BASO x10^3 (test code 0.03 10*3/uL 0.01-0.09 = 704-7) Lab Interpretation Abnormal (test code = 82670-1) [id number] 16:35:00 Test Item Value Reference Range Interpretation Comments SYNOVIAL FLD BLOODY LT. YELLOW A COLOR (test code = COLSY) SYNOVIAL FLD BLOODY CLEAR APPEARANCE (test code = APPSY) SYNOVIAL FLD 1.5 mL VOLUME (test code = VOLSY) SYNOVIAL FLD WBC 441.000 /MM3 0-200 H (test code = WBCSY) SYNOVIAL FLD RBC 33939.000 0-2 H NOTE: An au tomated (test code = /mm3 method is now b eing used RBCSY) to determinesyn ovial fluid WBC and R BC counts. The dif ferential willstill be pe rformed manually. SYNOVIAL FLD POLY 13 % 0-25 N (test code = POLYSY) SYNOVIAL FLD 22 % 0-78 N LYMPHOCYTE (test code = LYMPHSY) SYNOVIAL FLD 9 % 0-71 N MONOCYTE (test code = MONOSY) SYNOVIAL FLUID 9 EOS (test code = EOSSY) SYNOVIAL FLD 47 % LINING CELLS (test code = LINSY) SPECIMEN COMMENT: ASPIRATION DONE BY DR ARIZMENDI ,SAVE ASP FOR 2 WKS- XR FLUORO [id number] 16:33:00 [facility] : 1945 Sex: M Patient Name: RENE CHAMBERLAIN Unit No: [id number] EXAMS: CPT CODE: [id number] XR FLUORO NDL 75019 FLUOROSCOPICALLY GUIDED ASPIRATION OF THE RIGHT KNEE COMMENT: After informed consent was obtained a needle was placed in the knee joint with fluoroscopic guidance. Its position was confirmed with an AP radiograph. 0.1 minutes of fluoroscopy time was utilized. 10 mL of clear orange fluid was aspirated and sent for analysis. No immediate complications were encountered. at 1633 Reported and signed by: Eladio Arizmendi MD CC: Jovanny NIEVES Technologist: RT Nisha.(R) Transcribed D/ (1633) tKUNJCL [facility] [place] [facility] NAME: RENE CHAMBERLAIN JR [address] [facility] PHYS: MARIELENA Jorge UnderwoodJovanny teresa II, MD : 1945 AGE: 76 SEX: M [place], [place] [address] LOC: Y.RAD PHONE #: [phone] EXAM DATE: 06/12/2022 STATUS: REG CLI FAX #: [phone] RAD #: D/C DT PAGE 1 Signed Report Patient Name: RENE CHAMBERLAIN JR Unit No: [id number] EXAMS: CPT CODE: [id number] XR FLUORO NDL 21022 (Continued) Orig PrintD/T: S: 06/12/2022 (1636) [facility] [place] [facility] NAME: RENE CHAMBERLAIN JR [address] [facility] PHYS: MARIELENA GauthierJovanny Ramirez II, MD : 1945 AGE: 76 SEX: M [place] [id number] LOC: Y.RAD PHONE #: [phone] EXAM DATE: 06/12/2022 STATUS: REG CLI FAX #: [phone] RAD #: D/CDT PAGE 2 Signed ReportAFB [id number] 14:04:00 Test Item Value Reference Range Interpretation Comments AFB smear (test code = AFB smear) see below performing lab: (test code = performing lab:) [facility] MedicineFungus identified in Specimen by Fungus stain 2022-06-12 14:04:00 Test Item Value Reference Range Interpretation Comments smear fungus (test code = smear see below fungus) performing lab: (test code = performing lab:) [facility] Medicineblood [id number] 14:04:00 Test Item Value Reference Range Interpretation Comments blood culture (test code = blood see below culture) performing lab: (test code = performing lab:) [facility] MedicineCell count and Differential panel - Synovial [id number] 14:04:00 Test Item Value Reference Range Interpretation Comments synovial fld color (test code bloody lt. yellow A = synovial fld color) synovial fld appearance (test bloody clear code = synovial fld appearance) synovial fld volume (test code 1.5 mL = synovial fld volume) synovial fld WBC (test code = 441.000 /mm3 0-200 H synovial fld WBC) synovial fld RBC (test code = 47360.000 /mm3 0-2 H synovial fld RBC) synovial fld poly (test code = 13 % 0-25 synovial fld poly) synovial fld lymphocyte (test 22 % 0-78 code = synovial fld lymphocyte) synovial fld monocyte (test 9 % 0-71 code = synovial fld monocyte) synovial fluid eos (test code 9 = synovial fluid eos) synovial fld lining cells 47 % (test code = synovial fld lining cells) performing lab: (test code = performing lab:) [facility] Hospital[facility]sc[facility] [Identifier] in Specimen by Gram [id number] 14:04:00 Test Item Value Reference Range Interpretation Comments gram stain (test code = gram stain) see below performing lab: (test code = performing lab:) [facility] Coronavirus 2019 [id number] 02:38:00 Test Item Value Reference Range Interpretation Comments Novel Coronavirus Negative Negative Positive r esults are 2019 Inhouse (test indicativ e of the presence code = COVNONPUI) ofSARS-CoV -2 RNA, clinical correlation wit h patient historyand othe r diagnostic info rmation is necessary to determinepatien t infection status. Positiv e results do not rule out bacterial infection or co -infection with other viru ses. Negative result s do not preclude SARS-C oV-2 infection andsh ould not be used as the nemo e basis for patient managementdecis ions. Negative result s must be combined with otherclinical observations, p atient history, and epidemiological information . Detection of SARS-CoV-2 RNA may be affe cted bysample collec tion methods, storag e conditions, and /or stageof infection. Yolie l RNA mutations, vacc inations, antiviraltherap eutics, antibiotics, chemotherapeuti c orimmunosuppres marcela drugs have not been e valuated for effectson d etection. Results are for the identification of SARS-CoV-2 RNA usingreal-time (RT) polymerase monet n reaction (PCR) technolog yfor the qualitative det ection of nucleic acids f rom qvfCOEE-MaH-6 v irus and diagnosis of SA RS-CoV-2 virusinfection. It is an Emergency Use Authorization ( EUA) testauthorized by the U.S. FDA. Novel Coronavirus 2019 [id number] 02:38:00 Test Item Value Reference Range Interpretation Comments Novel Coronavirus Negative Negative Positive r esults are 2019 Inhouse (test indicativ e of the presence code = COVNONPUI) ofSARS-CoV -2 RNA, clinical correlation wit h patient historyand othe r diagnostic info rmation is necessary to determinepatien t infection status. Positiv e results do not rule out bacterial infection or co -infection with other viru ses. Negative result s do not preclude SARS-C oV-2 infection andsh ould not be used as the nemo e basis for patient managementdecis ions. Negative result s must be combined with otherclinical observations, p atient history, and epidemiological information . Detection of SARS-CoV-2 RNA may be affe cted bysample collec tion methods, storag e conditions, and /or stageof infection. Yolie l RNA mutations, vacc inations, antiviraltherap eutics, antibiotics, chemotherapeuti c orimmunosuppres marcela drugs have not been e valuated for effectson d etection. Results are for the identification of SARS-CoV-2 RNA usingreal-time (RT) polymerase monet n reaction (PCR) technolog yfor the qualitative det ection of nucleic acids f rom oyeMCMQ-JpA-3 v irus and diagnosis of SA RS-CoV-2 virusinfection. It is an Emergency Use Authorization ( EUA) testauthorized by the U.S. FDA. COVID 19 INHOUSE [id number] 16:09:00 Test Item Value Reference Range Interpretation Comments COVID 19 INHOUSE AG (test code = NEGATIVE NEGATIVE [id number]) - XR CHEST 1 [id number] 08:19:00 [facility] : 1945 Sex: M Patient Name: RENE CHAMBERLAIN JR Unit No: [id number] EXAMS: CPT CODE: [id number] XR CHEST 1 V 40804 IMAGES PROVIDED: One frontal view of the chest is provided. COMPARISON: 04/10/2022 FINDINGS: Pacer/AICD remains in place. There is a pulmonary nodule within the right midlung measuring 1.3 cm, possibly calcified. No focal consolidation is visualized. No pneumothorax or pleural effusion. The pulmonary vasculature remains prominent. The cardiac silhouette remains enlarged. IMPRESSION: 1. Persistent findings of CHF/volume overload. 2. Right pulmonary nodule measuring 1.3 cm, likely calcified. Recommend chest CT without contrast for confirmation. at 0819 Reported and signed by: Marvin Morales M.D. CC: Edilberto Gao MD; Jovanny Gauthier II, MD; Shayne Costa MD Technologist: Braydon Santo(R) Transcribed D/ (0819) [employer]SLJ [facility] [place] [facility] NAME: RENE CHAMBERLAIN JR [address] PHYS: Edilberto Potter MD : 1945 AGE: 76 SEX: [place] [address] LOC: Y.513 A PHONE #: [phone] EXAM DATE: 04/11/2022 STATUS: ADM IN FAX #: [phone] RAD #: D/C DT PAGE 1 Signed Report Patient Name: RENE CHAMBERLAIN JR Unit No: [id number] EXAMS: CPT CODE: [id number] XR CHEST 1 V 63439 (Continued) Orig Print D/T: S: 04/11/2022 (0822) [facility] [place] [facility] NAME: RENE CHAMBERLAIN JR [address] [facility] PHYS: Edilberto Potter MD : 1945 AGE: 76 SEX: M [place], [place] [address] LOC: Y.513 A PHONE #: [phone] EXAM DATE: 04/11/2022 STATUS: ADM IN FAX #: [phone] RAD #: D/C DT PAGE 2 Signed ReportB-TYPE NATRIURETIC [id number] 07:54:00 Test Item Value Reference Range Interpretation Comments B-TYPE NATRIURETIC PEPTIDE (test 87.37 pg/mL 0-100 code = BNP) B-TYPE NATRIURETIC [id number] 07:54:00 Test Item Value Reference Range Interpretation Comments B-TYPE NATRIURETIC PEPTIDE (test 87.37 pg/mL 0-100 N code = BNP) BASIC METABOLIC [id number] 06:41:00 Test Item Value Reference Range Interpretation Comments SODIUM (test code = 137 mmol/L 136-145 N NA) POTASSIUM (test code = 4.5 mmol/L 3.5-5.1 N K) CHLORIDE (test code = 103.0 mmol/L 98-107 N CL) CARBON DIOXIDE (test 20.9 mmol/L 21-32 L code = CO2) GLUCOSE (test code = 101 mg/dL 70-110 N GLU) BLOOD UREA NITROGEN 33 mg/dL 7-18 H (test code = BUN) GLOMERULAR FILTRATION 54.4 >60 Unit o f measure: RATE (test code = GFR) mL/mi n/1.73 b2Cgvijdojw Range:Healthy Adults >90 mL/min/1.73 m2 For Chronic Kidney Disease: Stage II Mild Decrease i n GFR 60-90 Stage III Moderate Decrea se in GFR 30-59 St age IV Severe Decr ease in GFR 15-29 St age V Kidney Failur e <15 CREATININE (test code 1.28 mg/dL 0.55-1.30 N = CREAT) CALCIUM (test code = 9.2 mg/dL 8.2-10.1 N CA) URINALYSIS [id number] 17:58:00 Test Item Value Reference Range Interpretation Comments UA COLOR (test code = YELLOW YELLOW COLU) UA APPEARANCE (test CLEAR CLEAR code = APPU) UA GLUCOSE DIPSTICK NEGATIVE NEGATIVE (test code = DGLUU) UA BILIRUBIN DIPSTICK NEGATIVE NEGATIVE (test code = BILU) UA KETONE DIPSTICK NEGATIVE mg/dL NEGATIVE (test code = KETU) UA SPECIFIC GRAVITY 1.010 1.003-1.035 (test code = SGU) UA BLOOD DIPSTICK NEGATIVE NEGATIVE (test code = ARDY) UA PH DIPSTICK (test 5.5 See_Comment [Autom ated code = AGUSTIN) message] The system which generated this result transmit alex reference range : 6.5. The refere nce range was not u sed to interpret th is result as normal/abnormal . UA PROTEIN DIPSTICK NEGATIVE mg/dL NEG (test code = PROU) UA UROBILINIOGEN 0.2 mg/dL NORM DIPSTICK (test code = URO) UA NITRITE DIPSTICK NEGATIVE NEG (test code = CELIA) UA LEUKOCYTE ESTERASE NEGATIVE NEGATIVE DIPSTICK (test code = LEUU) UA WBC (test code = <5 /HPF 0-2 WBCU) UA RBC (test code = 0-2 /HPF 0-2 RBCU) UA EPITHELIAL CELLS FEW /HPF 0-2 (test code = EPIU) UA BACTERIA (test FEW /HPF NONE code = BACU) UA TRANSITIONAL CELLS 0-2 /HPF NONE SEEN A (test code = TRANU) UA HYALINE CAST (test 2-5 /LPF NONE SEEN A code = HYALU) UA MUCUS (test code = 1+ /LPF NONE SEEN MUCU) UA AMORPHOUS SEDIMENT 1+ /LPF NONE SEEN (test code = AMORU) - XR CHEST 1 [id number] 17:18:00 [facility] : 1945 Sex: M Patient Name: RENE CHAMBERLAIN JR Unit No: [id number] EXAMS: CPT CODE: [id number] XR CHEST 1 V 15886 IMAGES PROVIDED: One frontal view of the chest is provided. COMPARISON: None FINDINGS: Right-sided pacer/AICD is in place. The cardiac silhouette is enlarged. Pulmonary vasculature is prominent. No pneumothorax or pleural effusion. Thoracic fusion hardware is visualized. IMPRESSION: Cardiomegaly with findings suggestive of CHF/volume overload. at 1718 Reported and signed by: Marvin Morales M.D. CC: Jovanny Gauthier II, MD; Shayne Costa MD; Jake Banks MD; I[facility] Technologist: ELVIN STEELE (RT.R) Transcribed D/ (704) Bri [facility] [place] [facility] NAME: RENE CHAMBERLAIN [address] [facility] PHYS: Jake Jaime MD : 1945 AGE: 76 SEX: [place] [address] : Y.513 A PHONE #: [phone] EXAM DATE: 04/10/2022 STATUS: ADM IN FAX #: [phone] RAD #: D/C DT PAGE 1 Signed Report Patient Name: RENE CHAMBERLAIN JR Unit No: [id number] EXAMS: CPT CODE: [id number] XR CHEST 1 V 73817 (Continued) Orig Print D/T: S: 04/10/2022 (1721) [facility] [place] [facility] NAME: RENE CHAMBERLAIN JR [address] [facility] PHYS: Jake Jaime MD : 1945 AGE: 76 SEX: [place], [place] [address] LOC: Y.513 A PHONE #: [phone] EXAM DATE: 04/10/2022 STATUS: ADM IN FAX #: [phone] RAD #: D/C DT PAGE 2 Signed ReportCBC W/AUTO DIFF 2022-04-10 14:33:00 Test Item Value Reference Range Interpretation Comments WHITE BLOOD CELL (test code = WBC) 10.7 K/mm3 5.7-10.5 H RED BLOOD CELL (test code = RBC) 3.91 M/mm3 4.2-5.4 L HEMOGLOBIN (test code = HGB) 11.2 g/dL 12-16 L HEMATOCRIT (test code = HCT) 34.7 % 37-47 L MEAN CELL VOLUME (test code = MCV) 89 fL 80-98 N MEAN CELL HGB (test code = MCH) 28.6 pg 27-34 N MEAN CELL HGB CONCENTRATION (test 32.3 g/dL 30.8-34.1 N code = MCHC) RED CELL DISTRIBUTION WIDTH (test 13.8 % 11-16 N code = RDW) PLT (test code = PLT) 222 K/mm3 130-400 N MEAN PLATELET VOLUME (test code = 9.6 fL 8.9-12.1 N MPV) NEUTROPHIL % (test code = NT%) 70.9 % 45-70 H LYMPHOCYTE % (test code = LY%) 14.0 % 20-40 L MONOCYTE % (test code = MO%) 8.0 % 3-10 N EOSINOPHIL % (test code = EO%) 5.6 % 1-5 H BASOPHIL % (test code = BA%) 0.3 % 0.0-1.1 N NEUTROPHIL # (test code = NT#) 7.60 K/mm3 2.00-7.50 H LYMPHOCYTE # (test code = LY#) 1.50 K/mm3 1.50-4.00 N MONOCYTE # (test code = MO#) 0.86 K/mm3 0.2-0.8 H EOSINOPHIL # (test code = EO#) 0.60 K/mm3 0.04-0.4 H BASOPHIL # (test code = BA#) 0.03 K/mm3 0.02-0.10 N MANUAL DIFF REQUIRED (test code = NO MANUAL DIFF MDIFF) NUCLEATED RED BLOOD CELL (test 0 % 0-0 N code = NRBC) BASIC METABOLIC [id number] 13:52:00 Test Item Value Reference Range Interpretation Comments SODIUM (test code = 139 mmol/L 136-145 N NA) POTASSIUM (test code = 4.5 mmol/L 3.5-5.1 N K) CHLORIDE (test code = 106.0 mmol/L 98-107 N CL) CARBON DIOXIDE (test 23.9 mmol/L 21-32 N code = CO2) GLUCOSE (test code = 94 mg/dL 70-110 N GLU) BLOOD UREA NITROGEN 30 mg/dL 7-18 H (test code = BUN) GLOMERULAR FILTRATION 58.0 >60 Unit o f measure: RATE (test code = GFR) mL/mi n/1.73 f1Tzogjrzcd Range:Healthy Adults >90 mL/min/1.73 m2 For Chronic Kidney Disease: Stage II Mild Decrease i n GFR 60-90 Stage III Moderate Decrea se in GFR 30-59 St age IV Severe Decre ase in GFR 15-29 St age V Kidney Failur e <15 CREATININE (test code 1.21 mg/dL 0.55-1.30 N = CREAT) CALCIUM (test code = 9.5 mg/dL 8.2-10.1 N CA) [id number] 13:52:00 Test Item Value Reference Range Interpretation Comments MAGNESIUM (test code = MAG) 2.0 mg/dL 1.8-2.4 N CREATINE KINASE (CK)2022-04-07 07:37:00 Test Item Value Reference Range Interpretation Comments CREATINE KINASE (CK) (test code = 42 Units/L 26-192 CK) SPECIMEN COMMENT: LEVEL BEFORE 4TH DOSECREATINE KINASE (CK)2022-04-07 07:36:00 Test Item Value Reference Range Interpretation Comments CREATINE KINASE (CK) (test code = 42 Units/L 26-192 N CK) SPECIMEN COMMENT: LEVEL BEFORE 4TH DOSECreatine kinase [Enzymatic activity/volume] in Serum or [id number] 03:15:00 Test Item Value Reference Range Interpretation Comments creatine kinase (CK) (test code = 42 units/L 26-192 creatine kinase (CK)) performing lab: (test code = performing lab:) [facility] MedicineCreat[facility] kinase [Enzymatic activity/volume] in Serum or [id number] 03:15:00 Test Item Value Reference Range Interpretation Comments creatine kinase (CK) (test code = 42 units/L 26-192 creatine kinase (CK)) performing lab: (test code = performing lab:) [facility] MedicineB-TYPE NATRIURETIC [id number] 07:57:00 Test Item Value Reference Range Interpretation Comments B-TYPE NATRIURETIC PEPTIDE (test 123.11 pg/mL 0-100 H code = BNP) B-TYPE NATRIURETIC [id number] 07:57:00 Test Item Value Reference Range Interpretation Comments B-TYPE NATRIURETIC PEPTIDE (test 123.11 pg/mL 0-100 H code = BNP) - XR KNEE 1 OR 2 V [id number] 07:01:00 [facility] 1945 Sex: M Patient Name: RENE CHAMBERLAIN JR Unit No: [id number] EXAMS: CPT CODE: [id number] XR KNEE 1 OR 2 [place] [address] RIGHT KNEE 2 VIEWS PORTABLE COMMENT: The patient is status post partial hardware removal. ElectronicallySigned by Eladio Arizmendi MD on 04/05/2022 at 0701 Reported and signed by: Eladio Arizmendi MD CC: Jovanny Gauthier II, MD; Shayne Costa MD Technologist: Sybil Spaulding (Diamond) Transcribed D/ (07) [place] [facility] [place] [facility] NAME: RENE CHAMBERLAIN JR [address] PHYS: Jovanny Persaud II, MD : 1945 AGE: 76 SEX: M [place] [address] LOC: Y.506 A PHONE #: [phone] EXAM DATE: 04/04/2022 STATUS: ADM IN FAX #: [phone] RAD #: D/C DT PAGE 1 Signed Report Patient Name: RENE CHAMBERLAIN JR Unit No: [id number] EXAMS: CPT CODE: [id number] XR KNEE 1 OR 2 V RT [address]12[address] (Continued) Orig Print D/T: S: 04/05/2022 (0704) [facility] NAME: RENE CHAMBERLAIN JR [address] [facility] PHYS: Jovanny Persaud II, MD : 1945 AGE: 76 SEX: M Jovanny [place] [address] LOC: Y.506 A PHONE #: [phone] EXAM DATE: 04/04/2022 STATUS: ADM IN FAX #: [phone] RAD #: D/C DT PAGE 2 Signed ReportBASIC METABOLIC [id number] 06:48:00 Test Item Value Reference Range Interpretation Comments SODIUM (test code = 137 mmol/L 136-145 N NA) POTASSIUM (test code = 4.5 mmol/L 3.5-5.1 N K) CHLORIDE (test code = 102.0 mmol/L 98-107 N CL) CARBON DIOXIDE (test 27.7 mmol/L 21-32 N code = CO2) GLUCOSE (test code = 144 mg/dL 70-110 H GLU) BLOOD UREA NITROGEN 34 mg/dL 7-18 H (test code = BUN) GLOMERULAR FILTRATION 44.2 >60 Unit o f measure: RATE (test code = GFR) mL/mi n/1.73 u2Yzkcbbimn Range:Healthy Adults >90 mL/min/1.73 m2 For Chronic Kidney Disease: Stage II Mild Decrease i n GFR 60-90 Stage III Moderate Decrea se in GFR 30-59 St age IV Severe Decre ase in GFR 15-29 St age V Kidney Failu re <15 CREATININE (test code 1.53 mg/dL 0.55-1.30 H = CREAT) CALCIUM (test code = 9.1 mg/dL 8.2-10.1 N CA) SPECIMEN COMMENT: POD #[id number] 06:48:00 Test Item Value Reference Range Interpretation Comments MAGNESIUM (test code = MAG) 2.1 mg/dL 1.8-2.4 N SPECIMEN COMMENT: POD #1HGB [id number] 06:06:00 Test Item Value Reference Range Interpretation Comments HEMOGLOBIN (test code = HGB) 11.7 g/dL 12-16 L HEMATOCRIT (test code = HCT) 36.4 % 37-47 L SPECIMEN COMMENT: POD #1Hemoglobin and Hematocrit panel - [id number] 04:05:00 Test Item Value Reference Range Interpretation Comments hemoglobin (test code = hemoglobin) 11.7 g/dL 12-16 L hematocrit (test code = hematocrit) 36.4 % 37-47 L performing lab: (test code = performing lab:) [facility] [id number] 04:05:00 Test Item Value Reference Range Interpretation Comments sodium (test code = sodium) 137 mmol/L 136-145 potassium (test code = 4.5 mmol/L 3.5-5.1 potassium) chloride (test code = chloride) 102.0 mmol/L 98-107 carbon dioxide (test code = 27.7 mmol/L 21-32 carbon dioxide) glucose (test code = glucose) 144 mg/dL 70-110 H blood urea nitrogen (test code = 34 mg/dL 7-18 H blood urea nitrogen) glomerular filtration rate (test 44.2 >60 code = glomerular filtration rate) creatinine (test code = 1.53 mg/dL 0.55-1.30 H creatinine) calcium (test code = calcium) 9.1 mg/dL 8.2-10.1 performing lab: (test code = performing lab:) [facility] Hospitalmagnesium2022-06-10 04:05:00 Test Item Value Reference Range Interpretation Comments magnesium (test code = magnesium) 2.1 mg/dL 1.8-2.4 performing lab: (test code = performing lab:) [facility] HospitalHemoglobin and Hematocrit panel - Blood 2022-04-05 04:05:00 Test Item Value Reference Range Interpretation Comments hemoglobin (test code = hemoglobin) 11.7 g/dL 12-16 L hematocrit (test code = hematocrit) 36.4 % 37-47 L performing lab: (test code = performing lab:) [facility] [id number] 04:05:00 Test Item Value Reference Range Interpretation Comments sodium (test code = sodium) 137 mmol/L 136-145 potassium (test code = 4.5 mmol/L 3.5-5.1 potassium) chloride (test code = chloride) 102.0 mmol/L 98-107 carbon dioxide (test code = 27.7 mmol/L 21-32 carbon dioxide) glucose (test code = glucose) 144 mg/dL 70-110 H blood urea nitrogen (test code = 34 mg/dL 7-18 H blood urea nitrogen) glomerular filtration rate (test 44.2 >60 code = glomerular filtration rate) creatinine (test code = 1.53 mg/dL 0.55-1.30 H creatinine) calcium (test code = calcium) 9.1 mg/dL 8.2-10.1 performing lab: (test code = performing lab:) [facility] Hospitalmagnesium2022-06-10 04:05:00 Test Item Value Reference Range Interpretation Comments magnesium (test code = magnesium) 2.1 mg/dL 1.8-2.4 performing lab: (test code = performing lab:) [facility]- [facility] MAXIFAC W/O [id number] 18:26:00 [facility] 1945 Sex: M Name: BULMARORENE [facility] : 1945 Age/S: 76 / M [address] [address] [place] Unit #: [id number] Loc:[place] [address] Phys: Germaine Olivier MD Acct: [id number] Dis Date: Status: REG REF PHONE#: [phone] Exam Date: 03/24/2022 6721 FAX #: Reason: PAIN AT ANGLE OF R JAW AND R EAR EXAMS: CPT: [id number] CT MAXIFAC W/O CONTRAST 64232 Indication: PAIN AT ANGLE OF R JAW AND R EAR TECHNIQUE: CT data acquisition of the maxillofacial region was obtained without intravenous contrast with coronal, sagittal and axial reformats provided according to the maxillofacial CT protocol. COMPARISON: Noneavailable. LOCATION: H54 CT DLP dose: 227 mGy-cm. One or more of the following dose reduction techniques were used: Automated exposure control, adjustment of the mA and/or kV according to patient size, and/or iterative reconstruction. FINDINGS: There are no facial fractures. The visualized portions of the orbits and brain are unremarkable. The sinuses are clear. The nasal septum is deviated towards left. There is a normal variant bilateral small graciela bullosa. The osteomeatal units are unremarkable. There is a small right mastoid effusion. Limited imaging of the cervical spine including the field of view demonstrates prominent ossification of the posterior longitudinal ligament at the level ofC3-C4 level causing moderate central spinal canal stenosis. IMPRESSION: 1. No facial fracture or dislocation seen. 2. Small right mastoid effusion present. 3. 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 at 1826 Reported and signed by: Clara Vines PAGE 1 Signed Report (CONTINUED) Name: RENE CHAMBERLAIN JR [facility] : 1945 Age/S: 76 / M [address] [address] Unit #: [id number] Loc: [place] [address] Phys: Germaine Olivier MD Acct:[id number] Dis Date: Status: REG REF PHONE #: [phone] Exam Date: 03/24/2022 3453 FAX #: Reason: PAIN AT ANGLE OF R JAW AND R EAR EXAMS: CPT: [id number] CT MAXIFAC W/O CONTRAST 28056 <Continued> CC: Germaine Olivier MD Technologist:RT Edith(R) CTDI: DLP: Trnscb Date/Time: 03/24/2022 (1825) [id number] Orig Print D/T: S: 03/24/2022 (182) PAGE 2 Signed ReportCOMPREHENSIVE METABOLIC [id number] 11:29:00 Test Item Value Reference Range Interpretation Comments SODIUM (test code = 141 mmol/L 136-145 N NA) POTASSIUM (test code = 4.2 mmol/L 3.5-5.1 N K) CHLORIDE (test code = 104.0 mmol/L 98-107 N CL) CARBON DIOXIDE (test 29.2 mmol/L 21-32 N code = CO2) GLUCOSE (test code = 93 mg/dL 70-110 N GLU) BLOOD UREA NITROGEN 26 mg/dL 7-18 H (test code = BUN) GLOMERULAR FILTRATION 51.1 >60 Unit o f measure: RATE (test code = GFR) mL/mi n/1.73 c2Pmirwnhcn Range:Healthy Adults >90 mL/min/1.73 m2 For Chronic Kidney Disease: Stage II Mild Decrease i n GFR 60-90 Stage III Moderate Decrea se in GFR 30-59 St age IV Severe Decre ase in GFR 15-29 St age V Kidney Failur e <15 CREATININE (test code 1.35 mg/dL 0.55-1.30 H = CREAT) TOTAL PROTEIN (test 7.1 g/dL 6.4-8.2 N code = PROT) ALBUMIN (test code = 3.4 g/dL 3.4-5.0 N ALB) GLOBULIN (test code = 3.7 g/dL 2.2-4.2 N GLOB) ALBUMIN/GLOBULIN RATIO 0.9 0.7-2.0 N (test code = A/G) CALCIUM (test code = 9.7 mg/dL 8.2-10.1 N CA) BILIRUBIN TOTAL (test 0.50 mg/dL 0.2-1.00 N code = BILT) SGOT/AST (test code = 13.0 U/L 15-37 L AST) SGPT/ALT (test code = 20.0 U/L 12-78 N Please note new ALT) normal range. ALKALINE PHOSPHATASE 87 U/L 46-116 N TOTAL (test code = ALKP) PROTHROMBIN [id number] 11:10:00 Test Item Value Reference Range Interpretation Comments PROTHROMBIN TIME 11.5 secs 9.7-12.5 N Please note new normal PATIENT (test code = range. PTP) INTERNATIONAL NORMAL 1.04 <2.0 RECOMME NDED THERAPEUTIC RATIO (test code = RANGE FOR ORAL INR) ANTICOAGULANTTR EATMENT: CONDITION INRPr ophylaxis of venous throm bosis in 2.0 - 3.0 high- risk medical or surg ical patientsTreatme nt of venous thrombos is 2.0 - 3.0Prevention o f embolism 2.0 - 3.0Prevention o f recurrent embol ism, or 3.0 - 4.5 patie nts with mechanical pros thetic intravascular v gamboa IS PATIENT ON ANTICOAGULANTS ? YLIST ANTICOAGULANT/ANTI PLT MEDICATION : AspirinHas Lab been notified if Patient is on Heparin Drip? NOTHROMBOPLASTIN TIME [id number] 11:10:00 Test Item Value Reference Range Interpretation Comments PTT ACTIVATED (test 32.9 secs 26.6-34.6 N Please n ote new code = APTT) normal range. IS PATIENT ON ANTICOAGULANTS ? YLIST ANTICOAGULANT/ANTI PLT MEDICATION : AspirinHas Lab been notified if Patient is on Heparin Drip? NOCBC W/AUTO DIFF 2022-02-07 10:49:00 Test Item Value Reference Range Interpretation Comments WHITE BLOOD CELL (test code = WBC) 8.3 K/mm3 5.7-10.5 N RED BLOOD CELL (test code = RBC) 4.41 M/mm3 4.2-5.4 N HEMOGLOBIN (test code = HGB) 12.6 g/dL 12-16 N HEMATOCRIT (test code = HCT) 39.7 % 37-47 N MEAN CELL VOLUME (test code = MCV) 90 fL 80-98 N MEAN CELL HGB (test code = MCH) 28.6 pg 27-34 N MEAN CELL HGB CONCENTRATION (test 31.7 g/dL 30.8-34.1 N code = MCHC) RED CELL DISTRIBUTION WIDTH (test 13.8 % 11-16 N code = RDW) PLT (test code = PLT) 270 K/mm3 130-400 N MEAN PLATELET VOLUME (test code = 9.7 fL 8.9-12.1 N MPV) NEUTROPHIL % (test code = NT%) 67.0 % 45-70 N LYMPHOCYTE % (test code = LY%) 22.9 % 20-40 N MONOCYTE % (test code = MO%) 6.5 % 3-10 N EOSINOPHIL % (test code = EO%) 2.4 % 1-5 N BASOPHIL % (test code = BA%) 0.6 % 0.0-1.1 N NEUTROPHIL # (test code = NT#) 5.56 K/mm3 2.00-7.50 N LYMPHOCYTE # (test code = LY#) 1.90 K/mm3 1.50-4.00 N MONOCYTE # (test code = MO#) 0.54 K/mm3 0.2-0.8 N EOSINOPHIL # (test code = EO#) 0.20 K/mm3 0.04-0.4 N BASOPHIL # (test code = BA#) 0.05 K/mm3 0.02-0.10 N MANUAL DIFF REQUIRED (test code = NO MANUAL DIFF MDIFF) NUCLEATED RED BLOOD CELL (test 0 % 0-0 N code = NRBC) SYNOVIAL FLD CELL [id number] 10:46:00 Test Item Value Reference Range Interpretation Comments SYNOVIAL FLD LIGHT YELLOW LT. YELLOW COLOR (test code = COLSY) SYNOVIAL FLD SLIGHTLY HAZY CLEAR APPEARANCE (test code = APPSY) SYNOVIAL FLD 1 mL VOLUME (test code = VOLSY) SYNOVIAL FLD WBC 294.000 /MM3 0-200 H (test code = WBCSY) SYNOVIAL FLD RBC 2000.000 /mm3 0-2 H NOTE: An a utomated (test code = method is now b eing RBCSY) used to determinesynovi al fluid WBC and RBC cou nts. The differential wi llstill be performed ma nually. SYNOVIAL FLD POLY 2 % 0-25 N (test code = POLYSY) SYNOVIAL FLD 98 % 0-78 H LYMPHOCYTE (test code = LYMPHSY) SPECIMEN COMMENT: ASPIRATION LEFT KNEE DONE BY DR NEWMAN FLD CELL [id number] 10:37:00 Test Item Value Reference Range Interpretation Comments SYNOVIAL FLD LIGHT YELLOW LT. YELLOW COLOR (test code = COLSY) SYNOVIAL FLD [place] CLEAR APPEARANCE (test code = APPSY) SYNOVIAL FLD 1.5 mL VOLUME (test code = VOLSY) SYNOVIAL FLD WBC 57036.000 0-200 H (test code = /MM3 WBCSY) SYNOVIAL FLD RBC 22540.000 0-2 H NOTE: An au tomated (test code = /mm3 method is now b eing used RBCSY) to determinesyn ovial fluid WBC and R BC counts. The dif ferential willstill be pe rformed manually. SYNOVIAL FLD POLY 94 % 0-25 H (test code = POLYSY) SYNOVIAL FLD 6 % 0-78 N LYMPHOCYTE (test code = LYMPHSY) SPECIMEN COMMENT: ASPIRATION RT KNEE DONE BY DR ARIZMENDI- XR FLUORO [id number] 10:33:00[facility] 1945 Sex: M Patient Name: RENE CHAMBERLAIN JR Unit No: [id number] EXAMS: CPT CODE: [id number] XR FLUORO NDL [id number] FLUOROSCOPICALLY GUIDED ASPIRATION OF THE RIGHT KNEE COMMENT: After informed consent was obtained a needle was placed in the knee joint with fluoroscopic guidance. Its position was confirmed with an AP radiograph. 0.1 minutes of fluoroscopy time was utilized. 5 mL of cloudy yellow fluid was aspirated and sent for analysis. No immediate complications were encountered. FLUOROSCOPICALLY GUIDED ASPIRATION OF THE LEFTKNEE COMMENT: After informed consent was obtained a needle was placed in the knee joint with fluoroscopic guidance. Its position was confirmed with an AP radiograph. 0.1 minutes of fluoroscopy time wasutilized. 5 mL of clear yellow fluid was aspirated and sent for analysis. No immediate complicationswere encountered. at 1033 Reported and signed by: Eladio Arizmendi MD CC: Shayne Costa MD Technologist: Carol Johnson RT.(R)Transcribed D/ (1033) t.SANDIER.L [facility] [place] [facility] NAME: RENE CHAMBERLAIN [address] PHYS: MATVA.01 - Shayne Costa : 1945 AGE: 76 SEX: M [place], [place] [address] LOC: Y.RAD PHONE #: [phone] EXAM DATE: 11/23/2021 STATUS: REG CLI FAX #: [phone] RAD #: D/C DT PAGE 1 Signed Report Patient Name: RENE CHAMBERLAIN JR Unit No: [id number] EXAMS: CPT CODE: [id number] XR FLUORO NDL [id number] (Continued) Orig Print D/T: S: 11/23/2021 (1036) [facility] [place] [facility] NAME: RENE CHAMBERLAIN JR [address] [facility] PHYS: MATVA.01 - Costa,Shayne X : 1945 AGE: 76 SEX: M [place], [place] [address] LOC: Y.RAD PHONE #: [phone] EXAM DATE: 11/23/2021 STATUS: REG CLI FAX #: [phone] RAD #: D/C DT PAGE 2 Signed ReportFRYE REGIONAL MEDICAL [id number] 06:15:00 Test Item Value Reference Range Interpretation Comments Glucose Lvl (test code = Glucose Lvl) 124 70-99 [facility]2021-06-23 06:15:00 Test Item Value Reference Range Interpretation Comments BUN (test code = BUN) 26 7-22 [place] 784941-06-23 06:15:00 Test Item Value Reference Range Interpretation Comments Creatinine Lvl (test code = Creatinine 0.93 0.50-1.40 Lvl) [place] 784941-06-23 06:15:00 Test Item Value Reference Range Interpretation Comments Sodium Lvl (test code = Sodium Lvl) 133 135-145 [place] 784941-06-23 06:15:00 Test Item Value Reference Range Interpretation Comments Potassium Lvl (test code = Potassium 4.4 3.5-5.1 Lvl) [facility]2021-06-23 06:15:00 Test Item Value Reference Range Interpretation Comments Chloride Lvl (test code = Chloride Lvl) 102 95-109 [place] 784941-06-23 06:15:00 Test Item Value Reference Range Interpretation Comments CO2 (test code = CO2) 25 24-32 [facility] [id number] 06:15:00 Test Item Value Reference Range Interpretation Comments Calcium Lvl (test code = Calcium Lvl) 9.6 8.5-10.5 [facility] [id number] 06:15:00 Test Item Value Reference Range Interpretation Comments Total Protein (test code = Total 6.8 6.4-8.4 Protein) [facility] [id number] 06:15:00 Test Item Value Reference Range Interpretation Comments Albumin Lvl (test code = Albumin Lvl) 2.6 3.5-5.0 [facility] [id number] 06:15:00 Test Item Value Reference Range Interpretation Comments ALT (test code = ALT) 12 See_Comment [Auto mated message] The system which ge nerated this result transmit alex reference range : <=65. The reference range was not used to interpr et this result as karen l/abnormal. [facility] [id number] 06:15:00 Test Item Value Reference Range Interpretation Comments AST (test code = AST) 19 See_Comment [Auto mated message] The system which ge nerated this result transmit alex reference range : <=37. The reference range was not used to interpr et this result as karen l/abnormal. [facility] [employer]ero[employer] [id number] 06:15:00 Test Item Value Reference Range Interpretation Comments Alk Phos (test code = Alk Phos) 86 39-136 [facility] [id number] 06:15:00 Test Item Value Reference Range Interpretation Comments Bili Total (test code = Bili Total) 0.4 0.2-1.3 [facility] [id number] 06:15:00 Test Item Value Reference Range Interpretation Comments AGAP (test code = AGAP) 10.4 10.0-20.0 [facility] [employer] [id number] 06:15:00 Test Item Value Reference Range Interpretation Comments B/C Ratio (test code = B/C Ratio) 28 1 6-25 [facility] [id number] 06:15:00 Test Item Value Reference Range Interpretation Comments Globulin (test code = Globulin) 4.2 2.7-4.2 [facility] [employer] [id number] 06:15:00 Test Item Value Reference Range Interpretation Comments A/G Ratio (test code = A/G Ratio) 0.6 1 0.7-1.6 [facility] [id number] 06:15:00 Test Item Value Reference Range Interpretation Comments eGFR (test code = eGFR) 79 [id number] 06:15:00 Test Item Value Reference Range Interpretation Comments WBC (test code = WBC) 8.4 3.7-10.4 [id number] 06:15:00 Test Item Value Reference Range Interpretation Comments RBC (test code = RBC) 4.11 4.70-6.10 [place] 675511-06-23 06:15:00 Test Item Value Reference Range Interpretation Comments Hgb (test code = Hgb) 12.1 14.0-18.0 [id number] 06:15:00 Test Item Value Reference Range Interpretation Comments Hct (test code = Hct) 36.0 42.0-54.0 [id number] 06:15:00 Test Item Value Reference Range Interpretation Comments MCV (test code = MCV) 87.5 80.0-94.0 [place] 675511-06-23 06:15:00 Test Item Value Reference Range Interpretation Comments MCH (test code = MCH) 29.4 pg 27.0-31.0 [id number] 06:15:00 Test Item Value Reference Range Interpretation Comments MCHC (test code = MCHC) 33.6 32.0-36.0 [facility]viewGyzhxndLLIGUJPIOW8172-04-89 06:15:00 Test Item Value Reference Range Interpretation Comments RDW (test code = RDW) 14.7 11.5-14.5 [place] 675511-06-23 06:15:00 Test Item Value Reference Range Interpretation Comments Platelet (test code = Platelet) 308 133-450 [id number] 06:15:00 Test Item Value Reference Range Interpretation Comments MPV (test code = MPV) 7.8 7.4-10.4 [id number] 06:15:00 Test Item Value Reference Range Interpretation Comments Segs (test code = Segs) 65.5 45.0-75.0 [place] 675511-06-23 06:15:00 Test Item Value Reference Range Interpretation Comments Lymphocytes (test code = Lymphocytes) 24.2 20.0-40.0 [place] 675511-06-23 06:15:00 Test Item Value Reference Range Interpretation Comments Monocytes (test code = Monocytes) 7.4 2.0-12.0 [place] 675511-06-23 06:15:00 Test Item Value Reference Range Interpretation Comments Eosinophils (test code = 2.5 See_Comment [A utomated message] The Eosinophils) system which ge nerated this result tra nsmitted reference range : <=4.0. The reference r brian was not used to int erpret this result as normal/abnormal . [place] 675511-06-23 06:15:00 Test Item Value Reference Range Interpretation Comments Basophils (test code = 0.4 See_Comment [Aut omated message] The Basophils) system which ge nerated this result tra nsmitted reference range : <=1.0. The reference r brian was not used to int erpret this result as normal/abnormal . [id number] 06:15:00 Test Item Value Reference Range Interpretation Comments Neutrophils # (test code = Neutrophils 5.5 1.5-8.1 #) [place] 675511-06-23 06:15:00 Test Item Value Reference Range Interpretation Comments Lymphocytes # (test code = Lymphocytes 2.0 1.0-5.5 #) [place] 675511-06-23 06:15:00 Test Item Value Reference Range Interpretation Comments Monocytes # (test code 0.6 See_Comment [Aut omated message] The = Monocytes #) system which generated this result tra nsmitted reference range : <=0.8. The reference r brian was not used to int erpret this result as normal/abnormal . [facility]viewZfiwbpgPAJLPRDUEV3731-81-27 06:15:00 Test Item Value Reference Range Interpretation Comments Eosinophils # (test code 0.2 See_Comment [A utomated message] The = Eosinophils #) system ic h generated this result tra nsmitted reference range : <=0.5. The reference r brian was not used to int erpret this result as normal/abnormal . [place] 784941-06-23 06:15:00 Test Item Value Reference Range Interpretation Comments Glucose Lvl (test code = Glucose Lvl) 124 70-99 [place] 784941-06-23 06:15:00 Test Item Value Reference Range Interpretation Comments BUN (test code = BUN) 26 7-22 [place] 784941-06-23 06:15:00 Test Item Value Reference Range Interpretation Comments Creatinine Lvl (test code = Creatinine 0.93 0.50-1.40 Lvl) [place] 784941-06-23 06:15:00 Test Item Value Reference Range Interpretation Comments Sodium Lvl (test code = Sodium Lvl) 133 135-145 [place] 784941-06-23 06:15:00 Test Item Value Reference Range Interpretation Comments Potassium Lvl (test code = Potassium 4.4 3.5-5.1 Lvl) [place] 784941-06-23 06:15:00 Test Item Value Reference Range Interpretation Comments Chloride Lvl (test code = Chloride Lvl) 102 95-109 [place] 784941-06-23 06:15:00 Test Item Value Reference Range Interpretation Comments CO2 (test code = CO2) 25 24-32 [place] 784941-06-23 06:15:00 Test Item Value Reference Range Interpretation Comments Calcium Lvl (test code = Calcium Lvl) 9.6 8.5-10.5 [place] 784941-06-23 06:15:00 Test Item Value Reference Range Interpretation Comments Total Protein (test code = Total 6.8 6.4-8.4 Protein) [place] 784941-06-23 06:15:00 Test Item Value Reference Range Interpretation Comments Albumin Lvl (test code = Albumin Lvl) 2.6 3.5-5.0 [place] 784941-06-23 06:15:00 Test Item Value Reference Range Interpretation Comments ALT (test code = ALT) 12 See_Comment [Auto mated message] The system which ge nerated this result transmit alex reference range : <=65. The reference range was not used to interpr et this result as karen l/abnormal. [place] 784941-06-23 06:15:00 Test Item Value Reference Range Interpretation Comments AST (test code = AST) 19 See_Comment [Auto mated message] The system which ge nerated this result transmit alex reference range : <=37. The reference range was not used to interpr et this result as karen l/abnormal. [facility]2021-06-23 06:15:00 Test Item Value Reference Range Interpretation Comments Alk Phos (test code = Alk Phos) 86 39-136 [place] 784941-06-23 06:15:00 Test Item Value Reference Range Interpretation Comments Bili Total (test code = Bili Total) 0.4 0.2-1.3 [place] 784941-06-23 06:15:00 Test Item Value Reference Range Interpretation Comments AGAP (test code = AGAP) 10.4 10.0-20.0 [place] 784941-06-23 06:15:00 Test Item Value Reference Range Interpretation Comments B/C Ratio (test code = B/C Ratio) 28 1 6-25 [place] 784941-06-23 06:15:00 Test Item Value Reference Range Interpretation Comments Globulin (test code = Globulin) 4.2 2.7-4.2 [place] 784941-06-23 06:15:00 Test Item Value Reference Range Interpretation Comments A/G Ratio (test code = A/G Ratio) 0.6 1 0.7-1.6 [place] 784941-06-23 06:15:00 Test Item Value Reference Range Interpretation Comments eGFR (test code = eGFR) 79 [place] 675511-06-23 06:15:00 Test Item Value Reference Range Interpretation Comments WBC (test code = WBC) 8.4 3.7-10.4 [place] 675511-06-23 06:15:00 Test Item Value Reference Range Interpretation Comments RBC (test code = RBC) 4.11 4.70-6.10 [place] 675511-06-23 06:15:00 Test Item Value Reference Range Interpretation Comments Hgb (test code = Hgb) 12.1 14.0-18.0 [place] 675511-06-23 06:15:00 Test Item Value Reference Range Interpretation Comments Hct (test code = Hct) 36.0 42.0-54.0 [place] 675511-06-23 06:15:00 Test Item Value Reference Range Interpretation Comments MCV (test code = MCV) 87.5 80.0-94.0 [place] 675511-06-23 06:15:00 Test Item Value Reference Range Interpretation Comments MCH (test code = MCH) 29.4 pg 27.0-31.0 [place] 675511-06-23 06:15:00 Test Item Value Reference Range Interpretation Comments MCHC (test code = MCHC) 33.6 32.0-36.0 [place] 675511-06-23 06:15:00 Test Item Value Reference Range Interpretation Comments RDW (test code = RDW) 14.7 11.5-14.5 [place] 675511-06-23 06:15:00 Test Item Value Reference Range Interpretation Comments Platelet (test code = Platelet) 308 133-450 [place] 675511-06-23 06:15:00 Test Item Value Reference Range Interpretation Comments MPV (test code = MPV) 7.8 7.4-10.4 [place] 675511-06-23 06:15:00 Test Item Value Reference Range Interpretation Comments Segs (test code = Segs) 65.5 45.0-75.0 [place] 675511-06-23 06:15:00 Test Item Value Reference Range Interpretation Comments Lymphocytes (test code = Lymphocytes) 24.2 20.0-40.0 [place] 675511-06-23 06:15:00 Test Item Value Reference Range Interpretation Comments Monocytes (test code = Monocytes) 7.4 2.0-12.0 [place] 675511-06-23 06:15:00 Test Item Value Reference Range Interpretation Comments Eosinophils (test code = 2.5 See_Comment [A utomated message] The Eosinophils) system which ge nerated this result tra nsmitted reference range : <=4.0. The reference r brian was not used to int erpret this result as normal/abnormal . [place] 675511-06-23 06:15:00 Test Item Value Reference Range Interpretation Comments Basophils (test code = 0.4 See_Comment [Aut omated message] The Basophils) system which ge nerated this result tra nsmitted reference range : <=1.0. The reference r brian was not used to int erpret this result as normal/abnormal . [place] 675511-06-23 06:15:00 Test Item Value Reference Range Interpretation Comments Neutrophils # (test code = Neutrophils 5.5 1.5-8.1 #) [place] 675511-06-23 06:15:00 Test Item Value Reference Range Interpretation Comments Lymphocytes # (test code = Lymphocytes 2.0 1.0-5.5 #) [place] 675511-06-23 06:15:00 Test Item Value Reference Range Interpretation Comments Monocytes # (test code 0.6 See_Comment [Aut omated message] The = Monocytes #) system which generated this result tra nsmitted reference range : <=0.8. The reference r brian was not used to int erpret this result as normal/abnormal . [place] 675511-06-23 06:15:00 Test Item Value Reference Range Interpretation Comments Eosinophils # (test code 0.2 See_Comment [A utomated message] The = Eosinophils #) system whic h generated this result tra nsmitted reference range : <=0.5. The reference r brian was not used to int erpret this result as normal/abnormal . [facility]2021-06-21 06:50:00 Test Item Value Reference Range Interpretation Comments Glucose Lvl (test code = Glucose Lvl) 100 70-99 [place] 784941-06-21 06:50:00 Test Item Value Reference Range Interpretation Comments BUN (test code = BUN) 34 7-22 [place] 784941-06-21 06:50:00 Test Item Value Reference Range Interpretation Comments Creatinine Lvl (test code = Creatinine 0.82 0.50-1.40 Lvl) [place] 784941-06-21 06:50:00 Test Item Value Reference Range Interpretation Comments Sodium Lvl (test code = Sodium Lvl) 132 135-145 [place] 784941-06-21 06:50:00 Test Item Value Reference Range Interpretation Comments Potassium Lvl (test code = Potassium 4.5 3.5-5.1 Lvl) [place] 784941-06-21 06:50:00 Test Item Value Reference Range Interpretation Comments Chloride Lvl (test code = Chloride Lvl) 103 95-109 [place] 784941-06-21 06:50:00 Test Item Value Reference Range Interpretation Comments CO2 (test code = CO2) 25 24-32 [place] 784941-06-21 06:50:00 Test Item Value Reference Range Interpretation Comments AGAP (test code = AGAP) 8.5 10.0-20.0 [place] 784941-06-21 06:50:00 Test Item Value Reference Range Interpretation Comments Calcium Lvl (test code = Calcium Lvl) 9.9 8.5-10.5 [place] 784941-06-21 06:50:00 Test Item Value Reference Range Interpretation Comments B/C Ratio (test code = B/C Ratio) 41 1 6-25 [place] 784941-06-21 06:50:00 Test Item Value Reference Range Interpretation Comments Total Protein (test code = Total 6.7 6.4-8.4 Protein) [place] 784941-06-21 06:50:00 Test Item Value Reference Range Interpretation Comments Albumin Lvl (test code = Albumin Lvl) 2.6 3.5-5.0 [place] 784941-06-21 06:50:00 Test Item Value Reference Range Interpretation Comments Globulin (test code = Globulin) 4.1 2.7-4.2 [place] 784941-06-21 06:50:00 Test Item Value Reference Range Interpretation Comments A/G Ratio (test code = A/G Ratio) 0.6 1 0.7-1.6 [place] 784941-06-21 06:50:00 Test Item Value Reference Range Interpretation Comments ALT (test code = ALT) 7 See_Comment [Auto mated message] The system which ge nerated this result transmit alex reference range : <=65. The reference range was not used to interpr et this result as karen l/abnormal. [place] 784941-06-21 06:50:00 Test Item Value Reference Range Interpretation Comments AST (test code = AST) 19 See_Comment [Auto mated message] The system which ge nerated this result transmit alex reference range : <=37. The reference range was not used to interpr et this result as karen l/abnormal. [place] 784941-06-21 06:50:00 Test Item Value Reference Range Interpretation Comments Alk Phos (test code = Alk Phos) 79 39-136 [place] 784941-06-21 06:50:00 Test Item Value Reference Range Interpretation Comments Bili Total (test code = Bili Total) 0.5 0.2-1.3 [place] 784941-06-21 06:50:00 Test Item Value Reference Range Interpretation Comments eGFR (test code = eGFR) 85 [place] 675511-06-21 06:50:00 Test Item Value Reference Range Interpretation Comments RBC Morph (test code = Normal (04/16/21 1:50 RBC Morph) AM) [place] 675511-06-21 06:50:00 Test Item Value Reference Range Interpretation Comments Plt Morph (test code = Normal (04/16/21 1:50 Plt Morph) AM) [place] 675511-06-21 06:50:00 Test Item Value Reference Range Interpretation Comments Segs (test code = Segs) 61.6 45.0-75.0 [place] 675511-06-21 06:50:00 Test Item Value Reference Range Interpretation Comments Lymphocytes (test code = Lymphocytes) 26.4 20.0-40.0 [place] 675511-06-21 06:50:00 Test Item Value Reference Range Interpretation Comments Monocytes (test code = Monocytes) 9.7 2.0-12.0 [place] 675511-06-21 06:50:00 Test Item Value Reference Range Interpretation Comments Eosinophils (test code = 2.0 See_Comment [A utomated message] The Eosinophils) system which ge nerated this result tra nsmitted reference range : <=4.0. The reference r brian was not used to int erpret this result as normal/abnormal . [place] 675511-06-21 06:50:00 Test Item Value Reference Range Interpretation Comments Basophils (test code = 0.3 See_Comment [Aut omated message] The Basophils) system which ge nerated this result tra nsmitted reference range : <=1.0. The reference r brian was not used to int erpret this result as normal/abnormal . [place] 675511-06-21 06:50:00 Test Item Value Reference Range Interpretation Comments Neutrophils # (test code = Neutrophils 4.7 1.5-8.1 #) [facility]view[facility]ahacumZDIKKAVAUA2268-62-22 06:50:00 Test Item Value Reference Range Interpretation Comments Lymphocytes # (test code = Lymphocytes 2.0 1.0-5.5 #) [place] 675511-06-21 06:50:00 Test Item Value Reference Range Interpretation Comments Monocytes # (test code 0.7 See_Comment [Aut omated message] The = Monocytes #) system which generated this result tra nsmitted reference range : <=0.8. The reference r brian was not used to int erpret this result as normal/abnormal . [place] 675511-06-21 06:50:00 Test Item Value Reference Range Interpretation Comments Eosinophils # (test code 0.2 See_Comment [A utomated message] The = Eosinophils #) system whic h generated this result tra nsmitted reference range : <=0.5. The reference r brian was not used to int erpret this result as normal/abnormal . [facility]viewWymseewIBABXHMBBF0203-56-49 06:50:00 Test Item Value Reference Range Interpretation Comments WBC (test code = WBC) 7.6 3.7-10.4 [place] 675511-06-21 06:50:00 Test Item Value Reference Range Interpretation Comments RBC (test code = RBC) 4.04 4.70-6.10 [place] 675511-06-21 06:50:00 Test Item Value Reference Range Interpretation Comments Hgb (test code = Hgb) 12.4 14.0-18.0 [place] 675511-06-21 06:50:00 Test Item Value Reference Range Interpretation Comments Hct (test code = Hct) 35.1 42.0-54.0 [place] 675511-06-21 06:50:00 Test Item Value Reference Range Interpretation Comments MCV (test code = MCV) 87.0 80.0-94.0 [place] 675511-06-21 06:50:00 Test Item Value Reference Range Interpretation Comments MCH (test code = MCH) 30.6 pg 27.0-31.0 [place] 675511-06-21 06:50:00 Test Item Value Reference Range Interpretation Comments MCHC (test code = MCHC) 35.2 32.0-36.0 [place] 675511-06-21 06:50:00 Test Item Value Reference Range Interpretation Comments RDW (test code = RDW) 14.9 11.5-14.5 [place] 675511-06-21 06:50:00 Test Item Value Reference Range Interpretation Comments Platelet (test code = Platelet) 297 133-450 [place] 675511-06-21 06:50:00 Test Item Value Reference Range Interpretation Comments MPV (test code = MPV) 7.6 7.4-10.4 [place] 784941-06-21 06:50:00 Test Item Value Reference Range Interpretation Comments Glucose Lvl (test code = Glucose Lvl) 100 70-99 [place] 784941-06-21 06:50:00 Test Item Value Reference Range Interpretation Comments BUN (test code = BUN) 34 7-22 [place] 784941-06-21 06:50:00 Test Item Value Reference Range Interpretation Comments Creatinine Lvl (test code = Creatinine 0.82 0.50-1.40 Lvl) [place] 784941-06-21 06:50:00 Test Item Value Reference Range Interpretation Comments Sodium Lvl (test code = Sodium Lvl) 132 135-145 [place] 784941-06-21 06:50:00 Test Item Value Reference Range Interpretation Comments Potassium Lvl (test code = Potassium 4.5 3.5-5.1 Lvl) [place] 784941-06-21 06:50:00 Test Item Value Reference Range Interpretation Comments Chloride Lvl (test code = Chloride Lvl) 103 95-109 [place] 784941-06-21 06:50:00 Test Item Value Reference Range Interpretation Comments CO2 (test code = CO2) 25 24-32 [place] 784941-06-21 06:50:00 Test Item Value Reference Range Interpretation Comments AGAP (test code = AGAP) 8.5 10.0-20.0 [place] 784941-06-21 06:50:00 Test Item Value Reference Range Interpretation Comments Calcium Lvl (test code = Calcium Lvl) 9.9 8.5-10.5 [place] 784941-06-21 06:50:00 Test Item Value Reference Range Interpretation Comments B/C Ratio (test code = B/C Ratio) 41 1 6-25 [place] 784941-06-21 06:50:00 Test Item Value Reference Range Interpretation Comments Total Protein (test code = Total 6.7 6.4-8.4 Protein) [place] 784941-06-21 06:50:00 Test Item Value Reference Range Interpretation Comments Albumin Lvl (test code = Albumin Lvl) 2.6 3.5-5.0 [place] 784941-06-21 06:50:00 Test Item Value Reference Range Interpretation Comments Globulin (test code = Globulin) 4.1 2.7-4.2 [place] 784941-06-21 06:50:00 Test Item Value Reference Range Interpretation Comments A/G Ratio (test code = A/G Ratio) 0.6 1 0.7-1.6 [place] 784941-06-21 06:50:00 Test Item Value Reference Range Interpretation Comments ALT (test code = ALT) 7 See_Comment [Auto mated message] The system which ge nerated this result transmit alex reference range : <=65. The reference range was not used to interpr et this result as karen l/abnormal. [place] 784941-06-21 06:50:00 Test Item Value Reference Range Interpretation Comments AST (test code = AST) 19 See_Comment [Auto mated message] The system which ge nerated this result transmit alex reference range : <=37. The reference range was not used to interpr et this result as karen l/abnormal. [place] 784941-06-21 06:50:00 Test Item Value Reference Range Interpretation Comments Alk Phos (test code = Alk Phos) 79 39-136 [place] 784941-06-21 06:50:00 Test Item Value Reference Range Interpretation Comments Bili Total (test code = Bili Total) 0.5 0.2-1.3 [place] 784941-06-21 06:50:00 Test Item Value Reference Range Interpretation Comments eGFR (test code = eGFR) 85 [place] 675511-06-21 06:50:00 Test Item Value Reference Range Interpretation Comments RBC Morph (test code = Normal (04/16/21 1:50 RBC Morph) AM) [facility] 06:50:00 Test Item Value Reference Range Interpretation Comments Plt Morph (test code = Normal (04/16/21 1:50 Plt Morph) AM) [facility]viewYqxfokcGBPJJGXKOP5138-23-49 06:50:00 Test Item Value Reference Range Interpretation Comments Segs (test code = Segs) 61.6 45.0-75.0 [facility]viewGnwncegNSHVEMHPVS3954-64-59 06:50:00 Test Item Value Reference Range Interpretation Comments Lymphocytes (test code = Lymphocytes) 26.4 20.0-40.0 [place] 675511-06-21 06:50:00 Test Item Value Reference Range Interpretation Comments Monocytes (test code = Monocytes) 9.7 2.0-12.0 [place] 675511-06-21 06:50:00 Test Item Value Reference Range Interpretation Comments Eosinophils (test code = 2.0 See_Comment [A utomated message] The Eosinophils) system which ge nerated this result tra nsmitted reference range : <=4.0. The reference r brian was not used to int erpret this result as normal/abnormal . [facility]viewFimygayXPOLPZAHVQ1002-52-62 06:50:00 Test Item Value Reference Range Interpretation Comments Basophils (test code = 0.3 See_Comment [Aut omated message] The Basophils) system which ge nerated this result tra nsmitted reference range : <=1.0. The reference r brian was not used to int erpret this result as normal/abnormal . [facility]viewCvvwhqwOWACZCZYRZ3085-66-91 06:50:00 Test Item Value Reference Range Interpretation Comments Neutrophils # (test code = Neutrophils 4.7 1.5-8.1 #) [facility]viewQprghlwBBFXJQPYPM6084-98-06 06:50:00 Test Item Value Reference Range Interpretation Comments Lymphocytes # (test code = Lymphocytes 2.0 1.0-5.5 #) [place] 675511-06-21 06:50:00 Test Item Value Reference Range Interpretation Comments Monocytes # (test code 0.7 See_Comment [Aut omated message] The = Monocytes #) system which generated this result tra nsmitted reference range : <=0.8. The reference r brian was not used to int erpret this result as normal/abnormal . [facility]viewMrtxmqeBZFKVQDGDT6539-80-44 06:50:00 Test Item Value Reference Range Interpretation Comments Eosinophils # (test code 0.2 See_Comment [A utomated message] The = Eosinophils #) system whic h generated this result tra nsmitted reference range : <=0.5. The reference r brian was not used to int erpret this result as normal/abnormal . [facility]viewEhonxzrADCDNGKGSN0414-60-01 06:50:00 Test Item Value Reference Range Interpretation Comments WBC (test code = WBC) 7.6 3.7-10.4 [facility]viewNkqoloqHIGIVGVMHA1447-56-92 06:50:00 Test Item Value Reference Range Interpretation Comments RBC (test code = RBC) 4.04 4.70-6.10 [facility]viewMmraqlgAETWRBZFAR5690-73-22 06:50:00 Test Item Value Reference Range Interpretation Comments Hgb (test code = Hgb) 12.4 14.0-18.0 [facility]viewGstvlwsBBCQCFRVKX0046-06-65 06:50:00 Test Item Value Reference Range Interpretation Comments Hct (test code = Hct) 35.1 42.0-54.0 [facility]viewKgngnweJGNHDNLXKH5771-24-22 06:50:00 Test Item Value Reference Range Interpretation Comments MCV (test code = MCV) 87.0 80.0-94.0 [facility]viewEpwqmaaGHZKYHVRMG8637-76-65 06:50:00 Test Item Value Reference Range Interpretation Comments MCH (test code = MCH) 30.6 pg 27.0-31.0 [facility]viewNjnhtxwRIPIHSKKZE7570-72-81 06:50:00 Test Item Value Reference Range Interpretation Comments MCHC (test code = MCHC) 35.2 32.0-36.0 [facility]viewAkuewwnUFIISGMUWH1288-97-74 06:50:00 Test Item Value Reference Range Interpretation Comments RDW (test code = RDW) 14.9 11.5-14.5 [facility]viewTcpwtvqTKUTCVZCHM1497-71-14 06:50:00 Test Item Value Reference Range Interpretation Comments Platelet (test code = Platelet) 297 133-450 [facility]viewEuowzrcGLEMTVPKRD1513-84-07 06:50:00 Test Item Value Reference Range Interpretation Comments MPV (test code = MPV) 7.6 7.4-10.4 [facility]2021-06-20 07:55:00 Test Item Value Reference Range Interpretation Comments Glucose Lvl (test code = Glucose Lvl) 118 70-99 [place] 784941-06-20 07:55:00 Test Item Value Reference Range Interpretation Comments BUN (test code = BUN) 48 7-22 [place] 784941-06-20 07:55:00 Test Item Value Reference Range Interpretation Comments Creatinine Lvl (test code = Creatinine 1.12 0.50-1.40 Lvl) [place] 784941-06-20 07:55:00 Test Item Value Reference Range Interpretation Comments Sodium Lvl (test code = Sodium Lvl) 134 135-145 [place] 784941-06-20 07:55:00 Test Item Value Reference Range Interpretation Comments Potassium Lvl (test code = Potassium 4.4 3.5-5.1 Lvl) [place] 784941-06-20 07:55:00 Test Item Value Reference Range Interpretation Comments Chloride Lvl (test code = Chloride Lvl) 103 95-109 [place] 784941-06-20 07:55:00 Test Item Value Reference Range Interpretation Comments CO2 (test code = CO2) 24 24-32 [place] 784941-06-20 07:55:00 Test Item Value Reference Range Interpretation Comments AGAP (test code = AGAP) 11.4 10.0-20.0 [place] 784941-06-20 07:55:00 Test Item Value Reference Range Interpretation Comments Calcium Lvl (test code = Calcium Lvl) 10.1 8.5-10.5 [place] 784941-06-20 07:55:00 Test Item Value Reference Range Interpretation Comments B/C Ratio (test code = B/C Ratio) 43 1 6-25 [place] 784941-06-20 07:55:00 Test Item Value Reference Range Interpretation Comments Total Protein (test code = Total 7.1 6.4-8.4 Protein) [place] 784941-06-20 07:55:00 Test Item Value Reference Range Interpretation Comments Albumin Lvl (test code = Albumin Lvl) 2.9 3.5-5.0 [place] 784941-06-20 07:55:00 Test Item Value Reference Range Interpretation Comments Globulin (test code = Globulin) 4.2 2.7-4.2 [place] 784941-06-20 07:55:00 Test Item Value Reference Range Interpretation Comments A/G Ratio (test code = A/G Ratio) 0.7 1 0.7-1.6 [place] [address]-06-20 07:55:00 Test Item Value Reference Range Interpretation Comments ALT (test code = ALT) 9 See_Comment [Auto mated message] The system which ge nerated this result transmit alex reference range : <=65. The reference range was not used to interpr et this result as karen l/abnormal. [address]06-20 07:55:00 Test Item Value Reference Range Interpretation Comments AST (test code = AST) 20 See_Comment [Auto mated message] The system which ge nerated this result transmit alex reference range : <=37. The reference range was not used to interpr et this result as karen l/abnormal. [place] 784941-06-20 07:55:00 Test Item Value Reference Range Interpretation Comments Alk Phos (test code = Alk Phos) 89 39-136 [place] 784941-06-20 07:55:00 Test Item Value Reference Range Interpretation Comments Bili Total (test code = Bili Total) 0.5 0.2-1.3 [place] 784941-06-20 07:55:00 Test Item Value Reference Range Interpretation Comments eGFR (test code = eGFR) 63 [place] 675511-06-20 07:55:00 Test Item Value Reference Range Interpretation Comments Segs (test code = Segs) 68.8 45.0-75.0 [place] 675511-06-20 07:55:00 Test Item Value Reference Range Interpretation Comments Lymphocytes (test code = Lymphocytes) 22.1 20.0-40.0 [place] [address]-06-20 07:55:00 Test Item Value Reference Range Interpretation Comments Monocytes (test code = Monocytes) 7.9 2.0-12.0 [place] [address]-06-20 07:55:00 Test Item Value Reference Range Interpretation Comments Eosinophils (test code = 0.9 See_Comment [A utomated message] The Eosinophils) system which ge nerated this result tra nsmitted reference range : <=4.0. The reference r brian was not used to int erpret this result as normal/abnormal . [facility]viewVykrkhuXTBVLGSVVN4231-78-77 07:55:00 Test Item Value Reference Range Interpretation Comments Basophils (test code = 0.3 See_Comment [Aut omated message] The Basophils) system which ge nerated this result tra nsmitted reference range : <=1.0. The reference r brian was not used to int erpret this result as normal/abnormal . [place] 675511-06-20 07:55:00 Test Item Value Reference Range Interpretation Comments Neutrophils # (test code = Neutrophils 5.8 1.5-8.1 #) [facility]viewIbjkucbNHMOBFJTMM1305-61-92 07:55:00 Test Item Value Reference Range Interpretation Comments Lymphocytes # (test code = Lymphocytes 1.9 1.0-5.5 #) [facility]viewUhmafdwRORGTQFILK4063-57-74 07:55:00 Test Item Value Reference Range Interpretation Comments Monocytes # (test code 0.7 See_Comment [Aut omated message] The = Monocytes #) system which generated this result tra nsmitted reference range : <=0.8. The reference r brian was not used to int erpret this result as normal/abnormal . [facility]viewObsnpyrMGDHIADPZV6535-52-34 07:55:00 Test Item Value Reference Range Interpretation Comments Eosinophils # (test code 0.1 See_Comment [A utomated message] The = Eosinophils #) system whic h generated this result tra nsmitted reference range : <=0.5. The reference r brian was not used to int erpret this result as normal/abnormal . [facility]viewCoesfduXNOSKMYQDP4942-60-74 07:55:00 Test Item Value Reference Range Interpretation Comments WBC (test code = WBC) 8.4 3.7-10.4 [place] 675511-06-20 07:55:00 Test Item Value Reference Range Interpretation Comments RBC (test code = RBC) 4.34 4.70-6.10 [place] 675511-06-20 07:55:00 Test Item Value Reference Range Interpretation Comments Hgb (test code = Hgb) 12.9 14.0-18.0 [place] 675511-06-20 07:55:00 Test Item Value Reference Range Interpretation Comments Hct (test code = Hct) 37.6 42.0-54.0 [place] 675511-06-20 07:55:00 Test Item Value Reference Range Interpretation Comments MCV (test code = MCV) 86.5 80.0-94.0 [place] 675511-06-20 07:55:00 Test Item Value Reference Range Interpretation Comments MCH (test code = MCH) 29.6 pg 27.0-31.0 [place] 675511-06-20 07:55:00 Test Item Value Reference Range Interpretation Comments MCHC (test code = MCHC) 34.2 32.0-36.0 [place] 675511-06-20 07:55:00 Test Item Value Reference Range Interpretation Comments RDW (test code = RDW) 14.9 11.5-14.5 [place] [address]-06-20 07:55:00 Test Item Value Reference Range Interpretation Comments Platelet (test code = Platelet) 312 133-450 [place] 675511-06-20 07:55:00 Test Item Value Reference Range Interpretation Comments MPV (test code = MPV) 7.8 7.4-10.4 [place] 784941-06-20 07:55:00 Test Item Value Reference Range Interpretation Comments Glucose Lvl (test code = Glucose Lvl) 118 70-99 [place] 784941-06-20 07:55:00 Test Item Value Reference Range Interpretation Comments BUN (test code = BUN) 48 7-22 [place] 784941-06-20 07:55:00 Test Item Value Reference Range Interpretation Comments Creatinine Lvl (test code = Creatinine 1.12 0.50-1.40 Lvl) [place] 784941-06-20 07:55:00 Test Item Value Reference Range Interpretation Comments Sodium Lvl (test code = Sodium Lvl) 134 135-145 [place] 784941-06-20 07:55:00 Test Item Value Reference Range Interpretation Comments Potassium Lvl (test code = Potassium 4.4 3.5-5.1 Lvl) [place] 784941-06-20 07:55:00 Test Item Value Reference Range Interpretation Comments Chloride Lvl (test code = Chloride Lvl) 103 95-109 [place] 784941-06-20 07:55:00 Test Item Value Reference Range Interpretation Comments CO2 (test code = CO2) 24 24-32 [place] 784941-06-20 07:55:00 Test Item Value Reference Range Interpretation Comments AGAP (test code = AGAP) 11.4 10.0-20.0 [place] 784941-06-20 07:55:00 Test Item Value Reference Range Interpretation Comments Calcium Lvl (test code = Calcium Lvl) 10.1 8.5-10.5 [place] 784941-06-20 07:55:00 Test Item Value Reference Range Interpretation Comments B/C Ratio (test code = B/C Ratio) 43 1 6-25 [place] 784941-06-20 07:55:00 Test Item Value Reference Range Interpretation Comments Total Protein (test code = Total 7.1 6.4-8.4 Protein) [place] 784941-06-20 07:55:00 Test Item Value Reference Range Interpretation Comments Albumin Lvl (test code = Albumin Lvl) 2.9 3.5-5.0 [place] 784941-06-20 07:55:00 Test Item Value Reference Range Interpretation Comments Globulin (test code = Globulin) 4.2 2.7-4.2 [place] 784941-06-20 07:55:00 Test Item Value Reference Range Interpretation Comments A/G Ratio (test code = A/G Ratio) 0.7 1 0.7-1.6 [place] 784941-06-20 07:55:00 Test Item Value Reference Range Interpretation Comments ALT (test code = ALT) 9 See_Comment [Auto mated message] The system which ge nerated this result transmit alex reference range : <=65. The reference range was not used to interpr et this result as karen l/abnormal. [facility] [id number] 07:55:00 Test Item Value Reference Range Interpretation Comments AST (test code = AST) 20 See_Comment [Auto mated message] The system which ge nerated this result transmit alex reference range : <=37. The reference range was not used to interpr et this result as karen l/abnormal. [facility] SUGHU0622-67-04 07:55:00 Test Item Value Reference Range Interpretation Comments Alk Phos (test code = Alk Phos) 89 39-136 [place] 784941-06-20 07:55:00 Test Item Value Reference Range Interpretation Comments Bili Total (test code = Bili Total) 0.5 0.2-1.3 [place] 784941-06-20 07:55:00 Test Item Value Reference Range Interpretation Comments eGFR (test code = eGFR) 63 [place] 675511-06-20 07:55:00 Test Item Value Reference Range Interpretation Comments Segs (test code = Segs) 68.8 45.0-75.0 [place] 675511-06-20 07:55:00 Test Item Value Reference Range Interpretation Comments Lymphocytes (test code = Lymphocytes) 22.1 20.0-40.0 [place] 675511-06-20 07:55:00 Test Item Value Reference Range Interpretation Comments Monocytes (test code = Monocytes) 7.9 2.0-12.0 [place] 675511-06-20 07:55:00 Test Item Value Reference Range Interpretation Comments Eosinophils (test code = 0.9 See_Comment [A utomated message] The Eosinophils) system which ge nerated this result tra nsmitted reference range : <=4.0. The reference r brian was not used to int erpret this result as normal/abnormal . [place] 675511-06-20 07:55:00 Test Item Value Reference Range Interpretation Comments Basophils (test code = 0.3 See_Comment [Aut omated message] The Basophils) system which ge nerated this result tra nsmitted reference range : <=1.0. The reference r brian was not used to int erpret this result as normal/abnormal . [place] 675511-06-20 07:55:00 Test Item Value Reference Range Interpretation Comments Neutrophils # (test code = Neutrophils 5.8 1.5-8.1 #) [place] 675511-06-20 07:55:00 Test Item Value Reference Range Interpretation Comments Lymphocytes # (test code = Lymphocytes 1.9 1.0-5.5 #) [place] 675511-06-20 07:55:00 Test Item Value Reference Range Interpretation Comments Monocytes # (test code 0.7 See_Comment [Aut omated message] The = Monocytes #) system which generated this result tra nsmitted reference range : <=0.8. The reference r brian was not used to int erpret this result as normal/abnormal . [facility]viewBvxfrktORUXXPBXFM0093-97-02 07:55:00 Test Item Value Reference Range Interpretation Comments Eosinophils # (test code 0.1 See_Comment [A utomated message] The = Eosinophils #) system whic h generated this result tra nsmitted reference range : <=0.5. The reference r brian was not used to int erpret this result as normal/abnormal . [facility]viewHguhudvNSPXOSXYZL0510-96-23 07:55:00 Test Item Value Reference Range Interpretation Comments WBC (test code = WBC) 8.4 3.7-10.4 [facility]viewRbheiuoNEQOXHASDE1888-71-41 07:55:00 Test Item Value Reference Range Interpretation Comments RBC (test code = RBC) 4.34 4.70-6.10 [facility]viewOguuaosXGYPGKMNSM0969-16-37 07:55:00 Test Item Value Reference Range Interpretation Comments Hgb (test code = Hgb) 12.9 14.0-18.0 [facility]viewKvgbeyiLFJMWIBATU5822-15-59 07:55:00 Test Item Value Reference Range Interpretation Comments Hct (test code = Hct) 37.6 42.0-54.0 [facility]viewDpurzwbLQOUQOTLEL2968-50-68 07:55:00 Test Item Value Reference Range Interpretation Comments MCV (test code = MCV) 86.5 80.0-94.0 [facility]viewPtgzworDAEUIXFRNC3312-82-09 07:55:00 Test Item Value Reference Range Interpretation Comments MCH (test code = MCH) 29.6 pg 27.0-31.0 [facility]viewRytfdqgBYVOTSQGSX3281-80-33 07:55:00 Test Item Value Reference Range Interpretation Comments MCHC (test code = MCHC) 34.2 32.0-36.0 [facility]viewLfvkfuaDFIJFNQULP3452-07-07 07:55:00 Test Item Value Reference Range Interpretation Comments RDW (test code = RDW) 14.9 11.5-14.5 [facility]viewVrglvjlPRVSNYDEJA9437-68-72 07:55:00 Test Item Value Reference Range Interpretation Comments Platelet (test code = Platelet) 312 133-450 [facility]viewHeaqwozLLSEPBEJWK3676-64-49 07:55:00 Test Item Value Reference Range Interpretation Comments MPV (test code = MPV) 7.8 7.4-10.4 [facility] Browserlinghopi health care centerGlobel Direct [id number] 08:42:00 Test Item Value Reference Range Interpretation Comments ABO/Rh (test code = ABO/Rh) O POS [facility] [employer] [id number] 08:42:00 Test Item Value Reference Range Interpretation Comments Antibody Scrn (test Negative (04/13/21 3:42 code = Antibody Scrn) AM) [facility] [employer] [id number] 08:42:00 Test Item Value Reference Range Interpretation Comments VITAMIN B1 (THIAMINE) WHOLE BLOOD (test 914 code = VITAMIN B1 (THIAMINE) WHOLE BLOOD) [facility] GxnlykxNUZAQLXDLO2197-21-27 08:42:00 Test Item Value Reference Range Interpretation Comments PT (test code = PT) 13.9 s 12.0-14.7 [facility] VkhpydfMYYFROSXRT1585-03-26 08:42:00 Test Item Value Reference Range Interpretation Comments INR (test code = INR) 1.08 1 0.85-1.17 [facility] MefvlxxCDCRARJTAL7373-41-10 08:42:00 Test Item Value Reference Range Interpretation Comments PTT (test code = PTT) 30.8 s 22.9-35.8 [facility] [employer] [id number] 08:42:00 Test Item Value Reference Range Interpretation Comments ABO/Rh (test code = ABO/Rh) O POS [facility] [employer] [id number] 08:42:00 Test Item Value Reference Range Interpretation Comments Antibody Scrn (test Negative (04/13/21 3:42 code = Antibody Scrn) AM) [facility] [employer] [id number] 08:42:00 Test Item Value Reference Range Interpretation Comments VITAMIN B1 (THIAMINE) WHOLE BLOOD (test 914 code = VITAMIN B1 (THIAMINE) WHOLE BLOOD) [facility] LpdhasnCGULODRJTO0978-42-20 08:42:00 Test Item Value Reference Range Interpretation Comments PT (test code = PT) 13.9 s 12.0-14.7 [facility] OfygvswIINXBALBSH7272-20-25 08:42:00 Test Item Value Reference Range Interpretation Comments INR (test code = INR) 1.08 1 0.85-1.17 [facility]viewVpqhxvzBSLNQRUDBL0277-07-65 08:42:00 Test Item Value Reference Range Interpretation Comments PTT (test code = PTT) 30.8 s 22.9-35.8 [facility]2021-06-17 15:37:00 Test Item Value Reference Range Interpretation Comments Vitamin B12 Lvl (test code = Vitamin 577 B12 Lvl) [facility]2021-06-17 15:37:00 Test Item Value Reference Range Interpretation Comments BNP (test code = BNP) 48 [facility]2021-06-17 15:37:00 Test Item Value Reference Range Interpretation Comments Magnesium Lvl (test code = Magnesium 2.4 1.8-2.4 Lvl) [facility]2021-06-17 15:37:00 Test Item Value Reference Range Interpretation Comments Ammonia (test code = Ammonia) 20.0 [facility]NligpvfOPPDUZLWUK3155-54-42 15:37:00 Test Item Value Reference Range Interpretation Comments RPR (test code = RPR) Non Reactive (04/12/21 10:37 AM) [facility]2021-06-17 15:37:00 Test Item Value Reference Range Interpretation Comments Vitamin B12 Lvl (test code = Vitamin 577 B12 Lvl) [facility]2021-06-17 15:37:00 Test Item Value Reference Range Interpretation Comments BNP (test code = BNP) 48 [facility]2021-06-17 15:37:00 Test Item Value Reference Range Interpretation Comments Magnesium Lvl (test code = Magnesium 2.4 1.8-2.4 Lvl) [facility]2021-06-17 15:37:00 Test Item Value Reference Range Interpretation Comments Ammonia (test code = Ammonia) 20.0 [place] 137851-06-17 15:37:00 Test Item Value Reference Range Interpretation Comments RPR (test code = RPR) Non Reactive (04/12/21 10:37 AM) [facility]:36:00 Test Item Value Reference Range Interpretation Comments Trig (test code = Trig) 120 [facility]ZEB9766[facility]79-00 10:36:00 Test Item Value Reference Range Interpretation Comments Chol (test code = Chol) 191 [facility]mzhymiUFUFRH4798-01-66 10:36:00 Test Item Value Reference Range Interpretation Comments HDL (test code = HDL) 31 [facility]URK8183[facility]33-77 10:36:00 Test Item Value Reference Range Interpretation Comments CHD Risk (test code = CHD Risk) 6.16 1 4.00-7.30 [facility]dq[facility]whzWMEVQJ8058-20-92 10:36:00 Test Item Value Reference Range Interpretation Comments LDL (Calculated) (test code = LDL 136 (Calculated)) [facility]BybnwdmMEXWFY5023[facility]-68 10:36:00 Test Item Value Reference Range Interpretation Comments VLDL (test code = VLDL) 24 1 [facility] PSLQCQUKU3163-13-47 10:36:00 Test Item Value Reference Range Interpretation Comments Hgb A1C (test code = Hgb A1C) 4.9 [facility] CenterZukwaulUOWWTZ3968-34-80 10:36:00 Test Item Value Reference Range Interpretation Comments Trig (test code = Trig) 120 [facility] CenterSkaqariNHNPFI8210-60-13 10:36:00 Test Item Value Reference Range Interpretation Comments Chol (test code = Chol) 191 [facility]fg[facility]HVEGN[facility]257[facility]02-57 10:36:00 Test Item Value Reference Range Interpretation Comments HDL (test code = HDL) 31 [facility] CenterCnonmnoCRMKEY8674-48-37 10:36:00 Test Item Value Reference Range Interpretation Comments CHD Risk (test code = CHD Risk) 6.16 1 4.00-7.30 [facility] CenterIuwmkwlMGCATL9011-23-50 10:36:00 Test Item Value Reference Range Interpretation Comments LDL (Calculated) (test code = LDL 136 (Calculated)) [facility] CenterYjksyohPQHNIJ5352-70-25 10:36:00 Test Item Value Reference Range Interpretation Comments VLDL (test code = VLDL) 24 1 [facility] UCOCQMRHQ5653-65-16 10:36:00 Test Item Value Reference Range Interpretation Comments Hgb A1C (test code = Hgb A1C) 4.9 [facility] CenterThe [facility] YVDGL7263-99-30 08:32:00 Test Item Value Reference Range Interpretation Comments Phosphorus (test code = Phosphorus) 2.6 2.5-4.5 [facility]ann[facility]eme JZMPP2936-66-92 08:32:00 Test Item Value Reference Range Interpretation Comments Magnesium Lvl (test code = Magnesium 2.1 1.8-2.4 Lvl) [place] 784941-06-14 08:32:00 Test Item Value Reference Range Interpretation Comments Phosphorus (test code = Phosphorus) 2.6 2.5-4.5 [place] 784941-06-14 08:32:00 Test Item Value Reference Range Interpretation Comments Magnesium Lvl (test code = Magnesium 2.1 1.8-2.4 Lvl) [place] 784941-06-13 11:47:00 Test Item Value Reference Range Interpretation Comments Glucose Lvl (test code = Glucose Lvl) 95 70-99 [place] 784941-06-13 11:47:00 Test Item Value Reference Range Interpretation Comments BUN (test code = BUN) 25 7-22 [place] 784941-06-13 11:47:00 Test Item Value Reference Range Interpretation Comments Creatinine Lvl (test code = Creatinine 1.31 0.50-1.40 Lvl) [place] 784941-06-13 11:47:00 Test Item Value Reference Range Interpretation Comments Sodium Lvl (test code = Sodium Lvl) 136 135-145 [place] 784941-06-13 11:47:00 Test Item Value Reference Range Interpretation Comments Potassium Lvl (test code = Potassium 3.5 3.5-5.1 Lvl) [place] 784941-06-13 11:47:00 Test Item Value Reference Range Interpretation Comments Chloride Lvl (test code = Chloride Lvl) 101 95-109 [place] 784941-06-13 11:47:00 Test Item Value Reference Range Interpretation Comments CO2 (test code = CO2) 27 24-32 [place] 784941-06-13 11:47:00 Test Item Value Reference Range Interpretation Comments Calcium Lvl (test code = Calcium Lvl) 9.8 8.5-10.5 [place] 784941-06-13 11:47:00 Test Item Value Reference Range Interpretation Comments AGAP (test code = AGAP) 11.5 10.0-20.0 [place] 784941-06-13 11:47:00 Test Item Value Reference Range Interpretation Comments eGFR (test code = eGFR) 52 [place] 784941-06-13 11:47:00 Test Item Value Reference Range Interpretation Comments Glucose Lvl (test code = Glucose Lvl) 95 70-99 [facility]2021-06-13 11:47:00 Test Item Value Reference Range Interpretation Comments BUN (test code = BUN) 25 7-22 [place] 784941-06-13 11:47:00 Test Item Value Reference Range Interpretation Comments Creatinine Lvl (test code = Creatinine 1.31 0.50-1.40 Lvl) [place] 784941-06-13 11:47:00 Test Item Value Reference Range Interpretation Comments Sodium Lvl (test code = Sodium Lvl) 136 135-145 [place] 784941-06-13 11:47:00 Test Item Value Reference Range Interpretation Comments Potassium Lvl (test code = Potassium 3.5 3.5-5.1 Lvl) [place] 784941-06-13 11:47:00 Test Item Value Reference Range Interpretation Comments Chloride Lvl (test code = Chloride Lvl) 101 95-109 [place] 784941-06-13 11:47:00 Test Item Value Reference Range Interpretation Comments CO2 (test code = CO2) 27 24-32 [facility]2021-06-13 11:47:00 Test Item Value Reference Range Interpretation Comments Calcium Lvl (test code = Calcium Lvl) 9.8 8.5-10.5 [facility]2021-06-13 11:47:00 Test Item Value Reference Range Interpretation Comments AGAP (test code = AGAP) 11.5 10.0-20.0 [facility]2021-06-13 11:47:00 Test Item Value Reference Range Interpretation Comments eGFR (test code = eGFR) 52 [facility]ARD[facility] REOOAXF8680-13-17 08:40:00 Test Item Value Reference Range Interpretation Comments BNP (test code = BNP) 307 [facility] MKOLFYN5626-05-15 08:40:00 Test Item Value Reference Range Interpretation Comments BNP (test code = BNP) 307 [place] 675511-06-13 08:36:00 Test Item Value Reference Range Interpretation Comments TEG Interp (test Thrombelastograph results code = TEG show increased values of Interp) both Angle Alpha and MA. These findings are suggestive of platelet hypercoagulation. CPT:05238 [facility]EuywztjPICDZVLFBR2121-27-44 08:36:00 Test Item Value Reference Range Interpretation Comments R-time (test code = R-time) 5.0 min 5.0-10.0 [place] 675511-06-13 08:36:00 Test Item Value Reference Range Interpretation Comments K-time (test code = K-time) 1.2 min 1.0-3.0 [place] 675511-06-13 08:36:00 Test Item Value Reference Range Interpretation Comments Angle (test code = Angle) 73.0 degrees 53.0-72.0 [place] 675511-06-13 08:36:00 Test Item Value Reference Range Interpretation Comments Max Amp (test code = Max Amp) 72.0 mm 50.0-70.0 [place] 675511-06-13 08:36:00 Test Item Value Reference Range Interpretation Comments G-value (test code = G-value) 12.8 4.5-11.0 [place] 675511-06-13 08:36:00 Test Item Value Reference Range Interpretation Comments Ly30 (test code = 0.4 See_Comment [Automate d message] The Ly30) system which ge nerated this result transmit alex reference range : <=7.5. The reference range was not used to interpr et this result as karen l/abnormal. [place] 675511-06-13 08:36:00 Test Item Value Reference Range Interpretation Comments Coag Index (test code 2.8 1 See_Comment [Auto mated message] The = Coag Index) system which g enerated this result transmit alex reference range : <=3.0. The reference range was not used to interpr et this result as karen l/abnormal. [place] 675511-06-13 08:36:00 Test Item Value Reference Range Interpretation Comments TEG Data (test code = See Note (04/08/21 3:36 TEG Data) AM) [place] [address]-06-13 08:36:00 Test Item Value Reference Range Interpretation Comments TEG Interp (test Thrombelastograph results code = TEG show increased values of Interp) both Angle Alpha and MA. These findings are suggestive of platelet hypercoagulation. CPT:80921 [place] 675511-06-13 08:36:00 Test Item Value Reference Range Interpretation Comments R-time (test code = R-time) 5.0 min 5.0-10.0 [place] 675511-06-13 08:36:00 Test Item Value Reference Range Interpretation Comments K-time (test code = K-time) 1.2 min 1.0-3.0 [place] 675511-06-13 08:36:00 Test Item Value Reference Range Interpretation Comments Angle (test code = Angle) 73.0 degrees 53.0-72.0 [place] 675511-06-13 08:36:00 Test Item Value Reference Range Interpretation Comments Max Amp (test code = Max Amp) 72.0 mm 50.0-70.0 [place] 675511-06-13 08:36:00 Test Item Value Reference Range Interpretation Comments G-value (test code = G-value) 12.8 4.5-11.0 [place] 675511-06-13 08:36:00 Test Item Value Reference Range Interpretation Comments Ly30 (test code = 0.4 See_Comment [Automate d message] The Ly30) system which ge nerated this result transmit alex reference range : <=7.5. The reference range was not used to interpr et this result as karen l/abnormal. [place] 675511-06-13 08:36:00 Test Item Value Reference Range Interpretation Comments Coag Index (test code 2.8 1 See_Comment [Auto mated message] The = Coag Index) system which g enerated this result transmit alex reference range : <=3.0. The reference range was not used to interpr et this result as karen l/abnormal. [place] 675511-06-13 08:36:00 Test Item Value Reference Range Interpretation Comments TEG Data (test code = See Note (04/08/21 3:36 TEG Data) AM) [place] 784941-06-12 12:58:21 Test Item Value Reference Range Interpretation Comments Lactic Acid Lvl (test code = Lactic 1.2 0.5-2.2 Acid Lvl) [place] 784941-06-12 12:58:21 Test Item Value Reference Range Interpretation Comments Lactic Acid Lvl (test code = Lactic 1.2 0.5-2.2 Acid Lvl) [facility]kotgdfZHBVCJTTGQ2727-46-43 08:23:00 Test Item Value Reference Range Interpretation Comments ASA Effect Plt (test code = ASA Effect 422 Plt) [facility]viewQsbsdzfLDREWIJNEX2527-12-90 08:23:00 Test Item Value Reference Range Interpretation Comments ASA Effect Plt (test code = ASA Effect 422 Plt) [facility]YVDSHWBGHP1902[facility]74[facility] 07:38:00 Test Item Value Reference Range Interpretation Comments Coronavirus (COVID-19) Not Detected (04/07/21 STEFF (test code = 2:38 AM) Coronavirus (COVID-19) STEFF) [facility]neAjwvofpARQWIFBDNU7979-21-59 07:38:00 Test Item Value Reference Range Interpretation Comments Coronavirus (COVID-19) Not Detected (04/07/21 STEFF (test code = 2:38 AM) Coronavirus (COVID-19) STEFF) [facility] LSSEGWN6515-23-99 02:31:00 Test Item Value Reference Range Interpretation Comments Troponin-I (test code 0.03 See_Comment [Auto mated message] The = Troponin-I) system which g enerated this result transmit alex reference range : <=0.40. The reference r brian was not used to interpr et this result as karen l/abnormal. [facility] TMAPEBP5269-26-06 02:31:00 Test Item Value Reference Range Interpretation Comments Troponin-I (test code 0.03 See_Comment [Auto mated message] The = Troponin-I) system which g enerated this result transmit alex reference range : <=0.40. The reference r brian was not used to interpr et this result as karen l/abnormal. [facility]nePbuklsmOIFHCGFZNI5574-62-84 01:38:00 Test Item Value Reference Range Interpretation Comments Hep C Ab (test code = Hep C Ab) NON-REACTIVE [facility]neKupnwgjPPUZTWWCXB6530-86-00 01:38:00 Test Item Value Reference Range Interpretation Comments Hep Signal to Cut-Off (test code = Hep 0.02 1 Signal to Cut-Off) [place] 137851-06-12 01:38:00 Test Item Value Reference Range Interpretation Comments [facility] HIV 4th GEN (test Negative *NA*(04/06/21 code = CDC HIV 4th 8:38 PM) GEN) [facility]neHqilkbaNVNDPSFGZW3441-73-25 01:38:00 Test Item Value Reference Range Interpretation Comments Hep C Ab (test code = Hep C Ab) NON-REACTIVE [place] [address]-06-12 01:38:00 Test Item Value Reference Range Interpretation Comments Hep Signal to Cut-Off (test code = Hep 0.02 1 Signal to Cut-Off) [place] 137851-06-12 01:38:00 Test Item Value Reference Range Interpretation Comments [facility] HIV 4th GEN (test Negative *NA*(04/06/21 code = CDC HIV 4th 8:38 PM) GEN) [place] 784941-06-12 01:36:00 Test Item Value Reference Range Interpretation Comments Lipase Lvl (test code = Lipase Lvl) 80 73-393 [place] 784941-06-12 01:36:00 Test Item Value Reference Range Interpretation Comments Bili Direct (test code 0.2 See_Comment [Aut omated message] The = Bili Direct) system which generated this result tra nsmitted reference range : <=0.3. The reference r brian was not used to int erpret this result as karen l/abnormal. [place] 784941-06-12 01:36:00 Test Item Value Reference Range Interpretation Comments Glucose Lvl (test code = Glucose Lvl) 110 70-99 [place] 784941-06-12 01:36:00 Test Item Value Reference Range Interpretation Comments BUN (test code = BUN) 22 7-22 [place] 784941-06-12 01:36:00 Test Item Value Reference Range Interpretation Comments Creatinine Lvl (test code = Creatinine 1.27 0.50-1.40 Lvl) [place] 784941-06-12 01:36:00 Test Item Value Reference Range Interpretation Comments Sodium Lvl (test code = Sodium Lvl) 139 135-145 [place] 784941-06-12 01:36:00 Test Item Value Reference Range Interpretation Comments Potassium Lvl (test code = Potassium 3.4 3.5-5.1 Lvl) [place] 784941-06-12 01:36:00 Test Item Value Reference Range Interpretation Comments Chloride Lvl (test code = Chloride Lvl) 104 95-109 [place] 784941-06-12 01:36:00 Test Item Value Reference Range Interpretation Comments CO2 (test code = CO2) 26 24-32 [place] 784941-06-12 01:36:00 Test Item Value Reference Range Interpretation Comments Calcium Lvl (test code = Calcium Lvl) 9.5 8.5-10.5 [place] 784941-06-12 01:36:00 Test Item Value Reference Range Interpretation Comments Total Protein (test code = Total 7.9 6.4-8.4 Protein) [place] 784941-06-12 01:36:00 Test Item Value Reference Range Interpretation Comments Albumin Lvl (test code = Albumin Lvl) 3.6 3.5-5.0 [place] 784941-06-12 01:36:00 Test Item Value Reference Range Interpretation Comments ALANINE AMINOTRANSFERASE 16 See_Comment [A utomated message] (test code = ALANINE The sys tem which AMINOTRANSFERASE) generated this result transmitted ref erence range: <=65. Th e reference range was not used to int erpret this result as normal/abnormal . [place] 784941-06-12 01:36:00 Test Item Value Reference Range Interpretation Comments ASPARTATE TRANSAMINASE 16 See_Comment [Aut omated message] (test code = ASPARTATE The s ystem which TRANSAMINASE) generated this result transmitted ref erence range: <=37. Th e reference range was not used to interpr et this result as normal/abnormal . [place] 784941-06-12 01:36:00 Test Item Value Reference Range Interpretation Comments Alk Phos (test code = Alk Phos) 109 39-136 [place] 784941-06-12 01:36:00 Test Item Value Reference Range Interpretation Comments Bili Total (test code = Bili Total) 0.8 0.2-1.3 [place] 784941-06-12 01:36:00 Test Item Value Reference Range Interpretation Comments AGAP (test code = AGAP) 12.4 10.0-20.0 [place] 784941-06-12 01:36:00 Test Item Value Reference Range Interpretation Comments B/C Ratio (test code = B/C Ratio) 17 1 6-25 [place] 784941-06-12 01:36:00 Test Item Value Reference Range Interpretation Comments Globulin (test code = Globulin) 4.3 2.7-4.2 [facility] [id number] 01:36:00 Test Item Value Reference Range Interpretation Comments A/G Ratio (test code = A/G Ratio) 0.8 1 0.7-1.6 [facility] [id number] 01:36:00 Test Item Value Reference Range Interpretation Comments eGFR (test code = eGFR) 54 [place] 675511-06-12 01:36:00 Test Item Value Reference Range Interpretation Comments PT (test code = PT) 13.3 s 12.0-14.7 [place] 675511-06-12 01:36:00 Test Item Value Reference Range Interpretation Comments INR (test code = INR) 1.02 1 0.85-1.17 [place] 675511-06-12 01:36:00 Test Item Value Reference Range Interpretation Comments PTT (test code = PTT) 31.0 s 22.9-35.8 [place] 675511-06-12 01:36:00 Test Item Value Reference Range Interpretation Comments Basophils # (test code 0.1 See_Comment [Aut omated message] The = Basophils #) system which generated this result tra nsmitted reference range : <=0.2. The reference r brian was not used to int erpret this result as normal/abnormal . [place] 675511-06-12 01:36:00 Test Item Value Reference Range Interpretation Comments WBC X 10x3 (test code = WBC X 10x3) 12.7 3.7-10.4 [place] 675511-06-12 01:36:00 Test Item Value Reference Range Interpretation Comments RBC X 10x6 (test code = RBC X 10x6) 4.43 4.70-6.10 [place] 675511-06-12 01:36:00 Test Item Value Reference Range Interpretation Comments Hgb (test code = Hgb) 12.9 14.0-18.0 [place] 675511-06-12 01:36:00 Test Item Value Reference Range Interpretation Comments Hct (test code = Hct) 39.5 42.0-54.0 [place] 675511-06-12 01:36:00 Test Item Value Reference Range Interpretation Comments MCV (test code = MCV) 89.0 80.0-94.0 [place] 675511-06-12 01:36:00 Test Item Value Reference Range Interpretation Comments MCH (test code = MCH) 29.1 pg 27.0-31.0 [place] 675511-06-12 01:36:00 Test Item Value Reference Range Interpretation Comments MCHC (test code = MCHC) 32.7 32.0-36.0 [place] 675511-06-12 01:36:00 Test Item Value Reference Range Interpretation Comments RDW (test code = RDW) 15.2 11.5-14.5 [place] 675511-06-12 01:36:00 Test Item Value Reference Range Interpretation Comments Platelet (test code = Platelet) 248 133-450 [place] 675511-06-12 01:36:00 Test Item Value Reference Range Interpretation Comments MPV (test code = MPV) 7.9 7.4-10.4 [place] 675511-06-12 01:36:00 Test Item Value Reference Range Interpretation Comments Segs (test code = Segs) 82.7 45.0-75.0 [place] 675511-06-12 01:36:00 Test Item Value Reference Range Interpretation Comments Lymphocytes (test code = Lymphocytes) 7.9 20.0-40.0 [place] 675511-06-12 01:36:00 Test Item Value Reference Range Interpretation Comments Monocytes (test code = Monocytes) 8.9 2.0-12.0 [place] 675511-06-12 01:36:00 Test Item Value Reference Range Interpretation Comments Eosinophils (test code = 0.1 See_Comment [A utomated message] The Eosinophils) system which ge nerated this result tra nsmitted reference range : <=4.0. The reference r brian was not used to int erpret this result as normal/abnormal . [place] 675511-06-12 01:36:00 Test Item Value Reference Range Interpretation Comments Basophils (test code = 0.4 See_Comment [Aut omated message] The Basophils) system which ge nerated this result tra nsmitted reference range : <=1.0. The reference r brian was not used to int erpret this result as normal/abnormal . [place] [address]-06-12 01:36:00 Test Item Value Reference Range Interpretation Comments Neutrophils # (test code = Neutrophils 10.5 1.5-8.1 #) [place] [address]-06-12 01:36:00 Test Item Value Reference Range Interpretation Comments Lymphocytes # (test code = Lymphocytes 1.0 1.0-5.5 #) [place] [address]-06-12 01:36:00 Test Item Value Reference Range Interpretation Comments Monocytes # (test code 1.1 See_Comment [Aut omated message] The = Monocytes #) system which generated this result tra nsmitted reference range : <=0.8. The reference r brian was not used to int erpret this result as normal/abnormal . [place] [address]-06-12 01:36:00 Test Item Value Reference Range Interpretation Comments Lipase Lvl (test code = Lipase Lvl) 80 73-393 [place] 784941-06-12 01:36:00 Test Item Value Reference Range Interpretation Comments Bili Direct (test code 0.2 See_Comment [Aut omated message] The = Bili Direct) system which generated this result tra nsmitted reference range : <=0.3. The reference r brian was not used to int erpret this result as karen l/abnormal. [place] 784941-06-12 01:36:00 Test Item Value Reference Range Interpretation Comments Glucose Lvl (test code = Glucose Lvl) 110 70-99 [place] 784941-06-12 01:36:00 Test Item Value Reference Range Interpretation Comments BUN (test code = BUN) 22 7-22 [place] 784941-06-12 01:36:00 Test Item Value Reference Range Interpretation Comments Creatinine Lvl (test code = Creatinine 1.27 0.50-1.40 Lvl) [place] 784941-06-12 01:36:00 Test Item Value Reference Range Interpretation Comments Sodium Lvl (test code = Sodium Lvl) 139 135-145 [place] 784941-06-12 01:36:00 Test Item Value Reference Range Interpretation Comments Potassium Lvl (test code = Potassium 3.4 3.5-5.1 Lvl) [place] 784941-06-12 01:36:00 Test Item Value Reference Range Interpretation Comments Chloride Lvl (test code = Chloride Lvl) 104 95-109 [place] 784941-06-12 01:36:00 Test Item Value Reference Range Interpretation Comments CO2 (test code = CO2) 26 24-32 [place] 784941-06-12 01:36:00 Test Item Value Reference Range Interpretation Comments Calcium Lvl (test code = Calcium Lvl) 9.5 8.5-10.5 [place] 784941-06-12 01:36:00 Test Item Value Reference Range Interpretation Comments Total Protein (test code = Total 7.9 6.4-8.4 Protein) [place] 784941-06-12 01:36:00 Test Item Value Reference Range Interpretation Comments Albumin Lvl (test code = Albumin Lvl) 3.6 3.5-5.0 [place] 784941-06-12 01:36:00 Test Item Value Reference Range Interpretation Comments ALANINE AMINOTRANSFERASE 16 See_Comment [A utomated message] (test code = ALANINE The sys tem which AMINOTRANSFERASE) generated this result transmitted ref erence range: <=65. Th e reference range was not used to int erpret this result as normal/abnormal . [place] 784941-06-12 01:36:00 Test Item Value Reference Range Interpretation Comments ASPARTATE TRANSAMINASE 16 See_Comment [Aut omated message] (test code = ASPARTATE The s ystem which TRANSAMINASE) generated this result transmitted ref erence range: <=37. Th e reference range was not used to interpr et this result as normal/abnormal . [facility]2021-06-12 01:36:00 Test Item Value Reference Range Interpretation Comments Alk Phos (test code = Alk Phos) 109 39-136 [place] 784941-06-12 01:36:00 Test Item Value Reference Range Interpretation Comments Bili Total (test code = Bili Total) 0.8 0.2-1.3 [place] 784941-06-12 01:36:00 Test Item Value Reference Range Interpretation Comments AGAP (test code = AGAP) 12.4 10.0-20.0 [place] 784941-06-12 01:36:00 Test Item Value Reference Range Interpretation Comments B/C Ratio (test code = B/C Ratio) 17 1 6-25 [place] 784941-06-12 01:36:00 Test Item Value Reference Range Interpretation Comments Globulin (test code = Globulin) 4.3 2.7-4.2 [place] 784941-06-12 01:36:00 Test Item Value Reference Range Interpretation Comments A/G Ratio (test code = A/G Ratio) 0.8 1 0.7-1.6 [place] 88[address]-06-12 01:36:00 Test Item Value Reference Range Interpretation Comments eGFR (test code = eGFR) 54 [place] 675511-06-12 01:36:00 Test Item Value Reference Range Interpretation Comments PT (test code = PT) 13.3 s 12.0-14.7 [place] 04[address]-06-12 01:36:00 Test Item Value Reference Range Interpretation Comments INR (test code = INR) 1.02 1 0.85-1.17 [place] 675511-06-12 01:36:00 Test Item Value Reference Range Interpretation Comments PTT (test code = PTT) 31.0 s 22.9-35.8 [place] 675511-06-12 01:36:00 Test Item Value Reference Range Interpretation Comments Basophils # (test code 0.1 See_Comment [Aut omated message] The = Basophils #) system which generated this result tra nsmitted reference range : <=0.2. The reference r brian was not used to int erpret this result as normal/abnormal . [place] 675511-06-12 01:36:00 Test Item Value Reference Range Interpretation Comments WBC X 10x3 (test code = WBC X 10x3) 12.7 3.7-10.4 [place] 675511-06-12 01:36:00 Test Item Value Reference Range Interpretation Comments RBC X 10x6 (test code = RBC X 10x6) 4.43 4.70-6.10 [place] 675511-06-12 01:36:00 Test Item Value Reference Range Interpretation Comments Hgb (test code = Hgb) 12.9 14.0-18.0 [place] [address]-06-12 01:36:00 Test Item Value Reference Range Interpretation Comments Hct (test code = Hct) 39.5 42.0-54.0 [place] 675511-06-12 01:36:00 Test Item Value Reference Range Interpretation Comments MCV (test code = MCV) 89.0 80.0-94.0 [place] 675511-06-12 01:36:00 Test Item Value Reference Range Interpretation Comments MCH (test code = MCH) 29.1 pg 27.0-31.0 [place] 675511-06-12 01:36:00 Test Item Value Reference Range Interpretation Comments MCHC (test code = MCHC) 32.7 32.0-36.0 [place] 675511-06-12 01:36:00 Test Item Value Reference Range Interpretation Comments RDW (test code = RDW) 15.2 11.5-14.5 [place] [address]-06-12 01:36:00 Test Item Value Reference Range Interpretation Comments Platelet (test code = Platelet) 248 133-450 [place] 675511-06-12 01:36:00 Test Item Value Reference Range Interpretation Comments MPV (test code = MPV) 7.9 7.4-10.4 [place] [address]-06-12 01:36:00 Test Item Value Reference Range Interpretation Comments Segs (test code = Segs) 82.7 45.0-75.0 [place] [address]-06-12 01:36:00 Test Item Value Reference Range Interpretation Comments Lymphocytes (test code = Lymphocytes) 7.9 20.0-40.0 [place] 675511-06-12 01:36:00 Test Item Value Reference Range Interpretation Comments Monocytes (test code = Monocytes) 8.9 2.0-12.0 [place] [address]-06-12 01:36:00 Test Item Value Reference Range Interpretation Comments Eosinophils (test code = 0.1 See_Comment [A utomated message] The Eosinophils) system which ge nerated this result tra nsmitted reference range : <=4.0. The reference r brian was not used to int erpret this result as normal/abnormal . [place] [address]-06-12 01:36:00 Test Item Value Reference Range Interpretation Comments Basophils (test code = 0.4 See_Comment [Aut omated message] The Basophils) system which ge nerated this result tra nsmitted reference range : <=1.0. The reference r brian was not used to int erpret this result as normal/abnormal . [id number]:36:00 Test Item Value Reference Range Interpretation Comments Neutrophils # (test code = Neutrophils 10.5 1.5-8.1 #) [id number] 01:36:00 Test Item Value Reference Range Interpretation Comments Lymphocytes # (test code = Lymphocytes 1.0 1.0-5.5 #) [id number] 01:36:00 Test Item Value Reference Range Interpretation Comments Monocytes # (test code 1.1 See_Comment [Aut omated message] The = Monocytes #) system which generated this result tra nsmitted reference range : <=0.8. The reference r brian was not used to int erpret this result as normal/abnormal . [facility] [id number] 17:03:00 Test Item Value Reference Range Interpretation Comments CULTURE (BEAKER) (test No fungus isolated in code = 1095) 28 days FUNGUS SMEAR (BEAKER) No fungi seen (test code = 1406) AFB CULTURE + SMEAR (NON-SPUTUM)2020-01-31 13:35:00 Test Item Value Reference Range Interpretation Comments CULTURE (BEAKER) (test No acid-fast bacilli code = 1095) isolated in 42 days AFB SMEAR (BEAKER) No acid fast bacilli (test code = 994) seen POCT-GLUCOSE [id number] 18:11:00 Test Item Value Reference Range Interpretation Comments POC-GLUCOSE METER 112 mg/dL 70-110 H : TESTED A T [facility] 6720 (BEAKER) (test code = [facility], 1538) 59224: Credit Collector/Techni lars ID = [id number] for HE RNANDEZ, LISBET POCT-GLUCOSE [id number] 13:57:00 Test Item Value Reference Range Interpretation Comments POC-GLUCOSE METER 128 mg/dL 70-110 H : TESTED A T [facility] 6720 (BEAKER) (test code = [facility], 1538) 77343: Credit Collector/Techni lars ID = [id number] for HE RNANDEZ, LISBET [id number] 05:52:00 Test Item Value Reference Range Interpretation Comments MAGNESIUM (BEAKER) (test code = 2.1 mg/dL 1.6-2.6 627) Credit Collector ID - LV LBASIC METABOLIC [id number] 05:52:00 Test Item Value Reference Range Interpretation [...] 697) EGFR (BEAKER) (test 97 mL/min/1.73 ESTIMA ALEX GFR IS code = 1092) sq m NOT ACCURATE CREATININE CLEARANCE IN PREDICTING GLOMERULAR FILTRATION RATE . ESTIMATED GFR I S NOT APPLICABLE FOR DIALYSIS PATIEN TS. Credit Collector ID - LV LCBC (HEMOGRAM ONLY)2020-01-27 05:45:00 Test Item Value [...] CELLS (BEAKER) (test code = 413) POCT-GLUCOSE [id number] 03:55:00 Test Item Value Reference Range Interpretation Comments POC-GLUCOSE METER 114 mg/dL 70-110 H : TESTED A T [facility] 6720 (BEAKER) (test code = [facility], 1538) 92069: Credit Collector/Techni lars ID = [id number] for MICHELLE MATHIS POCT-GLUCOSE [id number] 18:25:00 Test Item Value Reference Range Interpretation Comments POC-GLUCOSE METER 88 mg/dL 70-110 : TESTED A T [facility] 6720 (BEAKER) (test code = [facility], 1538) 60889: Credit Collector/Techni lars ID = [id number] for CRISTIN BROOKS POCT-GLUCOSE [id number] 12:51:00 Test Item Value Reference Range Interpretation Comments POC-GLUCOSE METER 89 mg/dL 70-110 : TESTED A T [facility] 6720 (BEAKER) (test code = [facility], 1538) 68139: Credit Collector/Techni lars ID = [id number] for LISBET SOUZA BASIC METABOLIC [id number] 06:36:00 Test Item Value Reference Range Interpretation [...] 697) EGFR (BEAKER) (test 90 mL/min/1.73 ESTIMA ALEX GFR IS code = 1092) sq m NOT ACCURATE CREATININE CLEARANCE IN PREDICTING GLOMERULAR FILTRATION RATE . ESTIMATED GFR I S NOT APPLICABLE FOR DIALYSIS PATIEN TS. Credit Collector ID - LMCBC (HEMOGRAM ONLY)2020-01-26 06:35:00 Test [...] 0-0 (BEAKER) (test code = 413) POCT-GLUCOSE [id number] 00:29:00 Test Item Value Reference Range Interpretation Comments POC-GLUCOSE METER 106 mg/dL 70-110 : TESTED A T [facility] 6720 (BEAKER) (test [facility] = 1538) 93216: Credit Collector/Techni lars ID = [id number] for CARLOS WHITE TROPONIN [id number] 18:42:00 Test Item Value Reference Range Interpretation [...] failure, acidosis, acute neurological disease, and persistent tachyarrhythmia.Credit Collector ID - DBPOCT-GLUCOSE METER 2020-01-25 15:50:00 Test Item Value Reference Range Interpretation Comments POC-GLUCOSE METER 98 mg/dL 70-110 : TESTED A T [facility] 6720 (BEAKER) (test code = [facility], 1538) 44413: Credit Collector/Techni lars ID = [id number] for DANIELLE H, DIAZ POCT-GLUCOSE [id number] 12:27:00 Test Item Value Reference Range Interpretation Comments POC-GLUCOSE METER 90 mg/dL 70-110 : TESTED A T [facility] 6720 (BEAKER) (test code = [facility], 1538) 28300: Credit Collector/Techni lars ID = [id number] for DANIELLE H, DIAZ TROPONIN [id number] 09:18:00 Test Item Value Reference Range Interpretation [...] failure, acidosis, acute neurological disease, and persistent tachyarrhythmia.Credit Collector ID - ADAMARIS MCBC W/PLT COUNT & AUTO [id number] 06:21:00 Test Item Value Reference Range Interpretation Comments WHITE BLOOD CELL COUNT (AKER) 5.3 K/ L 3.5-10.5 (test code = [...] (BEAKER) (test code = 2801) BASIC METABOLIC [id number] 06:09:00 Test Item Value Reference Range Interpretation [...] 697) EGFR (BEAKER) (test 78 mL/min/1.73 ESTIMA ALEX GFR IS code = 1092) sq m NOT ACCURATE CREATININE CLEARANCE IN PREDICTING GLOMERULAR FILTRATION RATE . ESTIMATED GFR I S NOT APPLICABLE FOR DIALYSIS PATIEN TS. Credit Collector ID - ADAMARIS MCREATINE KINASE (CK)2020-01-25 06:09:00 Test Item Value Reference Range Interpretation Comments CREATINE KINASE TOTAL (BEAKER) (test 30 U/L 29-200 code = 380) Credit Collector ID - ADAMARIS MRAD, CHEST, 1 VIEW, NON [id number] 01:06:00Reason for exam:->r/o ptxShould this be performed [...] a moderate left pleural effusion, not significantly cuenca ed. There are ill-defined peripheral airspace and interstitial opacities in the right hemithorax. There is no pneumothorax. Signed: Nilton Butterfieldepspeedy Verified Date/Time: 01/25/2020 01:06:33 TROPONIN [id number] 00:53:00 Test Item Value Reference Range Interpretation [...] failure, acidosis, acute neurological disease, and persistent tachyarrhythmia.Credit Collector ID - [id number] 00:41:00 Test Item Value Reference Range Interpretation Comments GLUCOSE RANDOM (HAYDEN) (test code 139 mg/dL 70-105 H = 652) Credit Collector ID - [id number], CHEST, 1 VIEW, NON [id number] 16:33:00Reason for exam:->r/o ptxShould this be performed at the bedside?->YesFINAL REPORT Chest dated January 24, 2020 COMPARISON: January 21, 2020 Comment: Since prior examination, there is interval improvement of the pulmonary parenchyma disease on the right.There is opacity in the left hemithorax secondary to layering pleural effusion. No pneumothorax is seen. AICD remains in place. There is interval placement of a nasogastric tube. Signed: Edilberto Gregory Verified Date/Time: 01/24/2020 16:33:08 Reading Location: [address] Radiology Reading Room POCT-GLUCOSE [id number] 15:59:00 Test Item Value Reference Range Interpretation Comments POC-GLUCOSE METER 130 mg/dL 70-110 H : TESTED A T [facility] 6720 (BEAKER) (test code = [place], 1538) 15349: Credit Collector/Techni lars ID = [id number] for TODD THURSTON POCT-GLUCOSE [id number] 05:13:00 Test Item Value Reference Range Interpretation Comments POC-GLUCOSE METER 89 mg/dL 70-110 : TESTED A T [facility] 6720 (BEAKER) (test code = [place], 1538) 50494: Credit Collector/Techni lars ID = [id number] for MSIB JUSTINA Max [id number] 03:36:00 Test Item Value Reference Range Interpretation Comments MAGNESIUM (BEAKER) (test code = 2.3 mg/dL 1.6-2.6 627) Credit Collector ID - ADAMARIS MBASIC METABOLIC [id number] 03:36:00 Test Item Value Reference Range Interpretation [...] 697) EGFR (BEAKER) (test 95 mL/min/1.73 ESTIMA ALEX GFR IS code = 1092) sq m NOT ACCURATE CREATININE CLEARANCE IN PREDICTING GLOMERULAR FILTRATION RATE . ESTIMATED GFR I S NOT APPLICABLE FOR DIALYSIS PATIEN TS. Credit Collector ID - ADAMARIS MCBC (HEMOGRAM ONLY)2020-01-24 03:08:00 [...] 0-0 (BEAKER) (test code = 413) BLOOD [id number] 19:00:00 Test Item Value Reference Range Interpretation [...] 0-0 (BEAKER) (test code = 413) POCT-GLUCOSE [id number] 18:00:00 Test Item Value Reference Range Interpretation Comments POC-GLUCOSE METER 119 mg/dL 70-110 H : TESTED A T [facility] 6720 (BEAKER) (test code = [facility], 1538) 45946: Credit Collector/Techni lars ID = [id number] for NUNO LL, WILLIS POCT-GLUCOSE [id number] 12:30:00 Test Item Value Reference Range Interpretation Comments POC-GLUCOSE METER 119 mg/dL 70-110 H : TESTED A T [facility] 6720 (BEAKER) (test code = [facility], 1538) 06979: Credit Collector/Techni lars ID = [id number] for NUNO LL, WILLIS POCT-GLUCOSE [id number] 06:24:00 Test Item Value Reference Range Interpretation Comments POC-GLUCOSE METER 115 mg/dL 70-110 H : TESTED A T [facility] 6720 (BEAKER) (test code = [facility], 1538) 83479: Credit Collector/Techni lars ID = [id number] for DO ZAVALETA PIERRE CBC (HEMOGRAM ONLY)2020-01-22 04:19:00 Test Item Value [...] 0-0 (BEAKER) (test code = 413) POCT-GLUCOSE [id number] 23:58:00 Test Item Value Reference Range Interpretation Comments POC-GLUCOSE METER 128 mg/dL 70-110 H : TESTED A T [facility] 6720 (BEAKER) (test code = [facility], 1538) 53553: Credit Collector/Techni lars ID = [id number] for PIERRE DEL ROSARIO POCT-GLUCOSE [id number] 18:10:00 Test Item Value Reference Range Interpretation Comments POC-GLUCOSE METER 100 mg/dL 70-110 : TESTED A T [facility] 6720 (BEAKER) (test code = [facility], 153) 36906: Credit Collector/Techni lars ID = [id number] for AG ROBINS FUNGUS CULTURE + [id number] 16:25:00 Test Item Value Reference Range Interpretation Comments CULTURE (BEAKER) (test No fungus isolated in code = 1095) 28 days FUNGUS SMEAR (BEAKER) No fungi seen (test code = 1406) POCT-GLUCOSE [id number] 12:09:00 Test Item Value Reference Range Interpretation Comments POC-GLUCOSE METER 119 mg/dL 70-110 H : TESTED A T [facility] 6720 (BEAKER) (test code = [facility], 1538) 36131: Credit Collector/Techni lars ID = [id number] for AG ROBINS BODY FLUID CULTURE + GRAM [id number] 11:52:00 Test Item Value Reference Range Interpretation Comments CULTURE (BEAKER) (test code No growth = 1095) GRAM STAIN RESULT (BEAKER) <1+ WBCs (test code = 1123) GRAM STAIN RESULT (BEAKER) No organisms seen (test code = 02155) POCT-GLUCOSE [id number] 07:22:00 Test Item Value Reference Range Interpretation Comments POC-GLUCOSE METER 122 mg/dL 70-110 H : TESTED A T [facility] 6720 (BEAKER) (test code = [facility], 1538) 83380: Credit Collector/Techni lars ID = [id number] for DE YUSEF JUAREZ POCT-GLUCOSE [id number] 06:45:00 Test Item Value Reference Range Interpretation Comments POC-GLUCOSE METER 103 mg/dL 70-110 : [facility] (BEAKER) (test code = [facility] [facility], 1538) 67819: Credit Collector/Techni lars ID = [id number] for MS JUSTINA DE LEÓN BASIC METABOLIC [id number] 05:40:00 Test Item Value Reference Range Interpretation [...] 697) EGFR (BEAKER) (test 97 mL/min/1.73 ESTIMA ALEX GFR IS code = 1092) sq m NOT ACCURATE CREATININE CLEARANCE IN PREDICTING GLOMERULAR FILTRATION RATE . ESTIMATED GFR I S NOT APPLICABLE FOR DIALYSIS PATIEN TS. Credit Collector ID - PIAYA LCBC (HEMOGRAM ONLY)2020-01-21 05:14:00 [...] = 413) RAD, CHEST, 1 VIEW, NON [id number] 04:32:00Reason for exam:->chfShould this be performed at the bedside?->YesFINAL REPORT Chest one view. Clinical history: chf Comparison: Chest radiograph01/14/2020, 3:53 PM. Technique: A single frontal view of the chest was obtained. Findings:There is a right IJ pacemaker with tip in the right ventricle.The cardiac silhouette is enlarged. There are hazybilateral airspace opacities compatible with mild pulmonary edema. There is a small left pleural effusion, decreased in the interval. There is no pneumothorax. Signed: Nilton Butterfield Verified Da te/Time: 01/21/2020 04:32:05 POCT-GLUCOSE [id number] 23:29:00 Test Item Value Reference Range Interpretation Comments POC-GLUCOSE METER 125 mg/dL 70-110 H : TESTED A T [facility] 6720 (BEAKER) (test code = [facility], 1538) 88334: Credit Collector/Techni lars ID = [id number] for JUSTINA CHAU POCT-GLUCOSE [id number] 13:27:00 Test Item Value Reference Range Interpretation Comments POC-GLUCOSE METER 122 mg/dL 70-110 H : TESTED A T [facility] 6720 (BEAKER) (test code = [facility], 1538) 37829: Credit Collector/Techni lars ID = [id number] for YUSEF LOWE POCT-GLUCOSE [id number] 09:59:00 Test Item Value Reference Range Interpretation Comments POC-GLUCOSE METER 141 mg/dL 70-110 H : TESTED Joanna Luque [facility] (BEAKER) (test code = [place], 1538) 72051: Credit Collector/Techni lars ID = [id number] for PIERRE DEL ROSARIO [id number] 06:01:00 Test Item Value Reference Range Interpretation [...] is 2.5-3.5 for patients wiht mechanical heart valves.HEPATIC FUNCTION [id number] 05:38:00 Test Item Value Reference Range Interpretation [...] (test code = 23 U/L 6-55 347) Credit Collector ID - ADAMARIS MBASIC METABOLIC [id number] 05:38:00 Test Item Value Reference Range Interpretation [...] 697) EGFR (BEAKER) (test 91 mL/min/1.73 ESTIMA ALEX GFR IS code = 1092) sq m NOT ACCURATE CREATININE CLEARANCE IN PREDICTING GLOMERULAR FILTRATION RATE . ESTIMATED GFR I S NOT APPLICABLE FOR DIALYSIS PATIEN TS. Credit Collector ID - ADAMARIS [facility] (HEMOGRAM ONLY)2020-01-20 05:20:00 Test Item Value Reference [...] 0-0 (BEAKER) (test code = 413) POCT-GLUCOSE [id number] 00:05:00 Test Item Value Reference Range Interpretation Comments POC-GLUCOSE METER 130 mg/dL 70-110 H : TESTED A T [facility] 6720 (BEAKER) (test code = [place] [facility], 1538) 28514: Credit Collector/Techni lars ID = [id number] for DO PIERRE ZAVALETA [id number] 16:41:00Medical Cytology Report Case: [id number] Authorizing Provider: Sara Manjarrez MD Collected: 01/18/202004:20 PM Ordering Location: [address] Received: 01/19/2020 09:12 AM Pathologist: Samra Coley MD Specimen: Pleural, Left PLEURAL, LEFT, FLUID (CYTOSPINS): - NEGATIVE FOR MALIGNANCY - INCREASED NEUTROPHILS PRESENT Signing Pathologist Direct Phone Line: [phone] signed by Samra Coley MD on 01/19/2020 at 4:41 [id number] pleural effusion; admitted on 01/17/2020 w/ history of HTN, HLD, CAD, obesity, SSS (pacemaker dependent), chronic HFrEF s/p Bi-V ICD (upgrade 2014) who presents from [facility] after aspiration event and for replacement of his pacemakerLEFT PLEURAL FLUIDReceived 800 ml brown fluidPrepared 4 cytospinsCollected: [id number]: [id number] [facility], Department of Pathology, [address] [place] [address], [facility], [address] [place] [address], [facility], [facility] of [facility]ology, [address] [place] [address] 319[address], U/S, [id number] 12:40:00CELL COUNTLaterality?- >LeftReason for exam:->PLEURAL EFFUSIONShould [facility] be [facility]?->YesLabs to be Ordered:->Body Fluid Culture (w/Gram Stain, C\\T\\S)Labs to be Ordered:->CytologyLabs to be Ordered:->Fungal CultureLabs to be Ordered:->Glucose+LDH+ProteinLabs to beOrdered:->Other (please add comment)FINAL REPORT Exam: Ultrasound guided thoracentesis Clinical History: Left-sidedPleural Effusion Grain Elevator Superintendent: Cassidy Parra PA-C Supervising Physician: Marvin Thompson [...] condition. Impression: Ultrasound guided left-sided thoracentesis. Signed: Marvin Thompson [facility] Verified Date/Time: 01/19/2020 12:40:39 Reading Location: [address] Ultrasound Reading Room APTT 2020-01-19 12:39:00 Test Item Value Reference Range Interpretation Comments PARTIAL THROMBOPLASTIN TIME 53.1 seconds 22.5-36.0 H (BEAKER) (test code = 760) CT, CHEST, WITHOUT [id number] 12:17:00FINAL REPORT CT Chest without contrast History: [...] Calcified mediastinal and right hilar lymph nodes areconsistent with previous granulomatous disease. No definite hilar [...] left and small right pleural effusions.2. Mild cardiom egaly.3. Patchy bilateral pulmonary groundglass densities, nonspecific. This most likely represents pulmonary edema. Signed: Matthew George MDReport Verified Date/Time: 01/19/2020 12:17:48 Reading Location: [facility] Reading Room POCT- GLUCOSE [id number] 06:13:00 Test Item Value Reference Range Interpretation Comments POC-GLUCOSE METER 128 mg/dL 70-110 H : TESTED A T [facility] 6720 (BEAKER) (test code = [place] [facility], 1538) 92008: Credit Collector/Techni lars ID = [id number] for RONY MTZ [id number] 05:43:00 Test Item Value Reference Range Interpretation Comments MAGNESIUM (BEAKER) (test code = 1.9 mg/dL 1.6-2.6 627) Credit Collector ID - ADAMARIS MBASIC METABOLIC [id number] 05:43:00 Test Item Value Reference Range Interpretation [...] 697) EGFR (BEAKER) (test 93 mL/min/1.73 ESTIMA ALEX GFR IS code = 1092) sq m NOT ACCURATE CREATININE CLEARANCE IN PREDICTING GLOMERULAR FILTRATION RATE . ESTIMATED GFR I S NOT APPLICABLE FOR DIALYSIS PATIEN TS. Credit Collector ID - ADAMARIS EPATIC FUNCTION [id number] 05:43:00 Test Item Value Reference Range Interpretation [...] (test code = 23 U/L 6-55 347) Credit Collector ID - ADAMARIS MCREATINE KINASE (CK)2020-01-19 05:43:00 Test Item Value Reference Range Interpretation Comments CREATINE KINASE TOTAL (BEAKER) (test 22 U/L 29-200 L code = 380) Credit Collector ID - ADAMARIS MC-REACTIVE [id number] 05:43:00 Test Item Value Reference Range Interpretation Comments C-REACTIVE PROTEIN (BEAKER) (test 9.08 mg/dL 0.00-0.50 H code = 676) Credit Collector ID - ADAMARIS MCBC (HEMOGRAM ONLY)2020-01-19 05:24:00 [...] WBC 0-0 (BEAKER) (test code = 413) [id number] 05:21:00 Test Item Value Reference Range Interpretation [...] is 2.5-3.5 for patients wiht mechanical heart valves.[id number] 23:47:00 Test Item Value Reference Range Interpretation Comments PARTIAL THROMBOPLASTIN TIME 59.5 seconds 22.5-36.0 H (BEAKER) (test code = 760) POCT-GLUCOSE [id number] 23:37:00 Test Item Value Reference Range Interpretation Comments POC-GLUCOSE METER 128 mg/dL 70-110 H : TESTED A T [facility] 6720 (BEAKER) (test code = [facility], 1538) 16659: Credit Collector/Techni lars ID = [id number] for RONY MTZ BODY FLUID CELL COUNT WITH [id number] 18:12:00 Test Item Value Reference Range Interpretation Comments APPEARANCE FLUID (BEAKER) Slightly Cloudy Clear A (test code = 510) COLOR FLUID (BEAKER) (test Juliette Colorless, Straw A code = 511) RBC FLUID (BEAKER) (test 91055 /cu mm <=1 H code = 513) [...] Tube (BEAKER) (test code = 2873) POCT-GLUCOSE [id number] 17:51:00 Test Item Value Reference Range Interpretation Comments POC-GLUCOSE METER 125 mg/dL 70-110 H : TESTED A T [facility] 6720 (BEAKER) (test code = [facility], 1538) 79297: Credit Collector/Techni lars ID = [id number] for AG ROBINS [id number] 17:20:00 Test Item Value Reference Range Interpretation Comments PARTIAL THROMBOPLASTIN TIME 35.5 seconds 22.5-36.0 (BEAKER) (test code = 760) RAD, CHEST, 1 VIEW, NON [id number] 16:12:00Reason for exam:->post left sided thoracentesisShould this [...] consolidation is similar to prior exam. No pneumoth orax. Central pulmonary vascular congestion and bilateral interstitial opacities are stable. Low lung volumes.Heart and mediastinum: Stable contours. Additional findings: None. Signed: Alvaro Huerta MDReport Verified Date/Time: 01/18/2020 16:12:43 POCT-GLUCOSE [id number] 12:20:00 Test Item Value Reference Range Interpretation Comments POC-GLUCOSE METER 107 mg/dL 70-110 : TESTED A T [facility] 6720 (BEAKER) (test code = [place], 1538) 54262: Credit Collector/Techni lars ID = [id number] for LORILORI SKINNER AG RAD, CHEST, 1 VIEW, NON [id number] 05:28:00Reason for exam:->PLEURAL EFFUSIONShould this be performed [...] left pleural effusion. There is central vascular congestion.Bilateral pulmonary opacities suggest a combination of atelectasis and edema. Pneumonitis should be excluded clinically. An enteric tube traverses examination to the upper abdomen. Signed: Hiram Burton MDReport Verified Date/Time: 01/18/2020 05:28:26 CREATINE KINASE (CK)2020-01-18 04:58:00 Test Item Value Reference Range Interpretation Comments CREATINE KINASE TOTAL (BEAKER) (test 35 U/L 29-200 code = 380) Credit Collector ID - ADAMARIS MLACTATE DEHYDROGENASE (LDH)2020-01-18 04:58:00 Test Item Value Reference Range Interpretation Comments LACTATE DEHYDROGENASE (BEAKER) (test 145 U/L 125-220 code = 635) Credit Collector ID - ADAMARIS MBASIC METABOLIC [id number] 04:58:00 Test Item Value Reference Range Interpretation [...] 697) EGFR (BEAKER) (test 98 mL/min/1.73 ESTIMA ALEX GFR IS code = 1092) sq m NOT ACCURATE CREATININE CLEARANCE IN PREDICTING GLOMERULAR FILTRATION RATE . ESTIMATED GFR I S NOT APPLICABLE FOR DIALYSIS PATIEN TS. Credit Collector ID - ADAMARIS MHEPATIC FUNCTION [id number] 04:58:00 Test Item Value Reference Range Interpretation [...] (test code = 24 U/L 6-55 347) Credit Collector ID - ADAMARIS [id number] 04:53:00 Test Item Value Reference Range Interpretation [...] is 2.5-3.5 for patients wiht mechanical heart valves.CBC (HEMOGRAM [...] 0-0 (BEAKER) (test code = 413) POCT-GLUCOSE [id number] 00:46:00 Test Item Value Reference Range Interpretation Comments POC-GLUCOSE METER 107 mg/dL 70-110 : TESTED A T [facility] 6720 (BEAKER) (test code [facility], = 1538) [address]: Credit Collector/Techni lars ID = [id number] for ISI GALAZARUSA [id number] 21:46:00 Test Item Value Reference Range Interpretation Comments PARTIAL THROMBOPLASTIN TIME 44.2 seconds 22.5-36.0 H ([facility]) (test code = 760) Prior to initiating heparinPLATELET [id number] 21:38:00 Test Item Value Reference Range Interpretation Comments PLATELET COUNT ([facility]) (test 168 K/CU MM 150-450 code = 756) Credit Collector ID - 6000POCT-GLUCOSE [id number] 18:53:00 Test Item Value Reference Range Interpretation Comments POC-GLUCOSE METER 119 mg/dL 70-110 H : TESTED A T [facility] 6720 ([facility]) (test code = [facility], 153) 55767: Credit Collector/Techni lars ID = [id number] for NUNO LL, WILLIS FUNGUS CULTURE + [id number] 17:59:00 Test Item Value Reference Range Interpretation Comments CULTURE (BEAKER) (test No fungus isolated in code = 1095) 28 days FUNGUS SMEAR (BEAKER) No fungi seen (test code = 1406) BLOOD [id number] 15:00:00 Test Item Value Reference Range Interpretation Comments CULTURE (BEAKER) (test No growth in 5 days code = 1095) BLOOD [id number] 15:00:00 Test Item Value Reference Range Interpretation Comments CULTURE (BEAKER) (test No growth in 5 days code = 1095) POCT-GLUCOSE [id number] 12:40:00 Test Item Value Reference Range Interpretation Comments POC-GLUCOSE METER 162 mg/dL 70-110 H : TESTED A T [facility] 6720 (BEAKER) (test code = [facility], 153) 70629: Credit Collector/Techni lars ID = [id number] for ZAC COBURN LISBET POCT-GLUCOSE [id number] 06:25:00 Test Item Value Reference Range Interpretation Comments POC-GLUCOSE METER 152 mg/dL 70-110 H : TESTED A T [facility] 6720 (BEAKER) (test code = [facility], 153) 14803: Credit Collector/Techni lars ID = [id number] for YE , WEIPING CALCIUM, [id number] 05:12:00 Test Item Value Reference Range Interpretation Comments CALCIUM IONIZED (BEAKER) (test 1.24 mmol/L 1.12-1.27 code = 698) PH, BLOOD (BEAKER) (test code = 7.53 1810) [id number] 04:42:00 Test Item Value Reference Range Interpretation Comments PHOSPHORUS (BEAKER) (test code = 2.9 mg/dL 2.3-4.7 604) Credit Collector ID Jorge [place] [id number] 04:42:00 Test Item Value Reference Range Interpretation Comments MAGNESIUM (BEAKER) (test code = 2.2 mg/dL 1.6-2.6 627) Credit Collector ID Jorge [place] WCOMPREHENSIVE METABOLIC [id number] 04:42:00 Test Item Value Reference Range Interpretation [...] 347) EGFR (BEAKER) (test 49 mL/min/1.73 ESTIMA ALEX GFR IS code = 1092) sq m NOT ACCURATE CREATININE CLEARANCE IN PREDICTING GLOMERULAR FILTRATION RATE . ESTIMATED GFR I S NOT APPLICABLE FOR DIALYSIS PATIEN TSElver Credit Collector ID - TRAN [id number] 04:41:00 Test Item Value Reference Range Interpretation Comments PARTIAL THROMBOPLASTIN TIME 72.3 seconds 22.5-36.0 H (BEAKER) (test code = 760) CBC W/PLT COUNT & AUTO [id number] 04:27:00 Test Item Value Reference Range Interpretation [...] 0-1 PERCENT (BEAKER) (test code = 2801) [id number] 23:27:00 Test Item Value Reference Range Interpretation Comments MAGNESIUM (BEAKER) 2.3 mg/dL 1.6-2.6 Specimen slightly (test code = 627) hemolyzed Credit Collector ID - PIAYA [id number] 23:27:00 Test Item Value Reference Range Interpretation Comments POTASSIUM (BEAKER) 3.5 meq/L 3.5-5.1 Specimen slightly (test code = 379) hemolyzed Credit Collector ID - PIAYA LPOCT-GLUCOSE [id number] 22:08:00 Test Item Value Reference Range Interpretation Comments POC-GLUCOSE METER 137 mg/dL 70-110 H : TESTED A T [facility] 6720 (BEAKER) (test code = [facility], 1538) 33806: Credit Collector/Techni lars ID = [id number] for MACIEJ BERRY POCT-GLUCOSE [id number] 18:25:00 Test Item Value Reference Range Interpretation Comments POC-GLUCOSE METER 138 mg/dL 70-110 H : TESTED A T [facility] 6720 (BEAKER) (test code = [facility], 1538) 23056: Credit Collector/Techni lars ID = [id number] for ZAC LISBET COBURN BLOOD [id number] 18:00:00 Test Item Value Reference Range Interpretation Comments CULTURE (BEAKER) (test No growth in 5 days code = 1095) BLOOD [id number] 18:00:00 Test Item Value Reference Range Interpretation Comments CULTURE (BEAKER) (test No growth in 5 days code = 1095) POCT-GLUCOSE [id number] 12:30:00 Test Item Value Reference Range Interpretation Comments POC-GLUCOSE METER 165 mg/dL 70-110 H : TESTED A T [facility] 6720 (BEAKER) (test code = [facility] [place], 1538) 03256: Credit Collector/Techni lars ID = [id number] for LISBET KRAMER CBC W/PLT COUNT & AUTO [id number] 05:53:00 Test Item Value Reference Range Interpretation [...] (BEAKER) (test code = 2801) COMPREHENSIVE METABOLIC [id number] 05:32:00 Test Item Value Reference Range Interpretation [...] 347) EGFR (BEAKER) (test 37 mL/min/1.73 ESTIMA ALEX GFR IS code = 1092) sq m NOT ACCURATE CREATININE CLEARANCE IN PREDICTING GLOMERULAR FILTRATION RATE . ESTIMATED GFR I S NOT APPLICABLE FOR DIALYSIS PATIEN TS. Credit Collector ID - TRAN [id number] 05:25:00 Test Item Value Reference Range Interpretation Comments PHOSPHORUS (BEAKER) (test code = 3.7 mg/dL 2.3-4.7 604) Credit Collector ID - TRAN [id number] 05:25:00 Test Item Value Reference Range Interpretation Comments MAGNESIUM (BEAKER) (test code = 2.2 mg/dL 1.6-2.6 627) Credit Collector ID - TRAN WB-TYPE NATRIURETIC FACTOR (BNP)2019-12-29 05:14:00 Test Item Value Reference Range Interpretation Comments B-TYPE NATRIURETIC PEPTIDE (BEAKER) 562 pg/mL 0-100 H (test code = 700) Credit Collector ID - TRAN [id number] 05:02:00 Test Item Value Reference Range Interpretation Comments PARTIAL THROMBOPLASTIN TIME 70.5 seconds 22.5-36.0 H (BEAKER) (test code = 760) CALCIUM, [id number] 04:39:00 Test Item Value Reference Range Interpretation Comments CALCIUM IONIZED (BEAKER) (test 1.19 mmol/L 1.12-1.27 code = 698) PH, BLOOD (BEAKER) (test code = 7.50 1810) [id number] 01:00:00 Test Item Value Reference Range Interpretation Comments POTASSIUM (BEAKER) 3.2 meq/L 3.5-5.1 L Specimen slightly (test code = 379) hemolyzed Credit Collector ID - EKATERINAOCT-GLUCOSE [id number] 00:50:00 Test Item Value Reference Range Interpretation Comments POC-GLUCOSE METER 130 mg/dL 70-110 H : TESTED A T [facility] 6720 (BEAKER) (test code = [facility], 1538) 22061: Credit Collector/Techni lars ID = [id number] for MACIEJ BERRY POCT-GLUCOSE [id number] 19:07:00 Test Item Value Reference Range Interpretation Comments POC-GLUCOSE METER 145 mg/dL 70-110 H : TESTED A T [facility] 6720 (BEAKER) (test code = [facility], 1538) 43643: Credit Collector/Techni lars ID = [id number] for AG CAROL ANN LOPEZ BASIC METABOLIC [id number] 17:36:00 Test Item Value Reference Range Interpretation [...] 697) EGFR (BEAKER) (test 35 mL/min/1.73 ESTIMA ALEX GFR IS code = 1092) sq m NOT ACCURATE CREATININE CLEARANCE IN PREDICTING GLOMERULAR FILTRATION RATE . ESTIMATED GFR I S NOT APPLICABLE FOR DIALYSIS PATIEN TS. Credit Collector ID - [id number] 17:28:00 Test Item Value Reference Range Interpretation Comments PARTIAL THROMBOPLASTIN TIME 87.7 seconds 22.5-36.0 H (BEAKER) (test code = 760) [id number] 13:09:00 Test Item Value Reference Range Interpretation Comments PARTIAL THROMBOPLASTIN TIME 84.3 seconds 22.5-36.0 H (BEAKER) (test code = 760) BLOOD [id number] 13:00:00 Test Item Value Reference Range Interpretation Comments CULTURE (BEAKER) (test No growth in 5 days code = 1095) POCT-GLUCOSE [id number] 12:25:00 Test Item Value Reference Range Interpretation Comments POC-GLUCOSE METER 158 mg/dL 70-110 H : TESTED A T [facility] 6720 (BEAKER) (test code = [place], 1538) 16396: Credit Collector/Techni lars ID = [id number] for AG UILAR, CAROL ANN RAD, CHEST, 1 VIEW, NON [id number] 12:22:00Reason for exam:- >intubationShould this be performed at the bedside?->YesFINAL REPORT RAD, CHEST, 1 VIEW, NON DEPT INDICATION: intubation COMPARISON: Prior day's exam FINDINGS: Portable frontal view of the chest. IMPRESSION: Support Lines: Stable. Lungsand pleura: Unchanged airspace and pleural opacities. No pneumothorax.Heart and mediastinum: Stable contours. Stable surgical changes.Additional findings: None. Signed: Madeline Casas MDReport Verified Date/Time: 12/28/2019 12:22:37 Reading Location: [facility] Radiology Reading Room BLOOD [id number] 11:00:00 Test Item Value Reference Range Interpretation Comments CULTURE (BEAKER) (test No growth in 5 days code = 1095) BLOOD [id number] 10:01:00 Test Item Value Reference Range Interpretation [...] gram positive 1123) cocci in clusters POCT-GLUCOSE [id number] 06:57:00 Test Item Value Reference Range Interpretation Comments POC-GLUCOSE METER 178 mg/dL 70-110 H : TESTED A T [facility] 6720 (BEAKER) (test code = [facility], 1538) 31506: Credit Collector/Techni lars ID = [id number] for MACIEJ BERRY BLOOD GAS, [id number] 05:21:00 Test Item Value Reference Range Interpretation [...] (BEAKER) (test code = 1819) 40.0 % [id number] 05:18:00 Test Item Value Reference Range Interpretation Comments MAGNESIUM (BEAKER) 2.4 mg/dL 1.6-2.6 Specimen slightly (test code = 627) hemolyzed Credit Collector ID - TRAN [id number] 05:18:00 Test Item Value Reference Range Interpretation Comments PHOSPHORUS (BEAKER) 3.9 mg/dL 2.3-4.7 Specimen slightly (test code = 604) hemolyzed Credit Collector ID - TRAN WCOMPREHENSIVE METABOLIC [id number] 05:18:00 Test Item Value Reference Range Interpretation [...] hemolyzed EGFR (BEAKER) (test 33 mL/min/1.73 ESTIMA ALEX GFR IS code = 1092) sq m NOT ACCURATE CREATININE CLEARANCE IN PREDICTING GLOMERULAR FILTRATION RATE . ESTIMATED GFR I S NOT APPLICABLE FOR DIALYSIS PATIEN TS. Credit Collector ID - TRAN WCBC W/PLT COUNT & AUTO [id number] 05:17:00 Test Item Value Reference Range Interpretation [...] PERCENT (BEAKER) (test code = 2801) CALCIUM, [id number] 05:05:00 Test Item Value Reference Range Interpretation Comments CALCIUM IONIZED (BEAKER) (test 1.24 mmol/L 1.12-1.27 code = 698) PH, BLOOD (BEAKER) (test code = 7.53 1810) [id number] 05:03:00 Test Item Value Reference Range Interpretation Comments PARTIAL THROMBOPLASTIN TIME 64.3 seconds 22.5-36.0 H (BEAKER) (test code = 760) POCT-GLUCOSE [id number] 00:13:00 Test Item Value Reference Range Interpretation Comments POC-GLUCOSE METER 154 mg/dL 70-110 H : TESTED A T [facility] 6720 (BEAKER) (test code = [place], 1538) 76[address]: Credit Collector/Techni lars ID = [id number] for MACIEJ BERRY [id number] 23:38:00 Test Item Value Reference Range Interpretation Comments POTASSIUM (BEAKER) (test code = 3.1 meq/L 3.5-5.1 L 379) Credit Collector ID - [id number] 23:38:00 Test Item Value Reference Range Interpretation Comments MAGNESIUM (BEAKER) (test code = 2.3 mg/dL 1.6-2.6 627) Credit Collector ID - DBPOCT-GLUCOSE [id number] 18:39:00 Test Item Value Reference Range Interpretation Comments POC-GLUCOSE METER 167 mg/dL 70-110 H : TESTED A T [facility] 6720 (BEAKER) (test code = [place], 1538) 16452: Credit Collector/Techni lars ID = [id number] for AG NOMAN LOPEZA CBC W/PLT COUNT & AUTO [id number] 18:12:00 Test Item Value Reference Range Interpretation [...] 0-1 PERCENT (BEAKER) (test code = 2801) [id number] 15:37:00 Test Item Value Reference Range Interpretation Comments POTASSIUM (BEAKER) (test code = 3.2 meq/L 3.5-5.1 L 379) Credit Collector ID - [id number] 15:37:00 Test Item Value Reference Range Interpretation Comments MAGNESIUM (BEAKER) (test code = 2.2 mg/dL 1.6-2.6 627) Credit Collector ID - BSPOCT-GLUCOSE [id number] 14:19:00 Test Item Value Reference Range Interpretation Comments POC-GLUCOSE METER 146 mg/dL 70-110 H : TESTED A T [facility] 6720 (BEAKER) (test code = [facility] [employer] [facility], 1538) 63836: Credit Collector/Techni lars ID = [id number] for CAROL ANN OSEGUERA LACTATE DEHYDROGENASE (LDH), BODY [id number] 10:47:00 Test Item Value Reference Range Interpretation [...] T [facility] 6720 (BEAKER) (test code = [employer] [facility], 1538) 85786: Credit Collector/Techni lars ID = [id number] for MACIEJ BERRY BLOOD GAS, [id number] 05:55:00 Test Item Value Reference Range Interpretation [...] 30.0 % CBC W/PLT COUNT & AUTO [id number] 04:59:00 Test Item Value Reference Range Interpretation [...] (BEAKER) (test code = 2801) HEMOGLOBIN AND [id number] 04:58:00 Test Item Value Reference Range Interpretation Comments HEMOGLOBIN (BEAKER) (test code = 7.6 GM/DL 13.7-17.5 L 410) HEMATOCRIT (BEAKER) (test code = 24.1 % 40.1-51.0 L 411) Credit Collector ID - [id number] 04:54:00 Test Item Value Reference Range Interpretation Comments PARTIAL THROMBOPLASTIN TIME 94.7 seconds 22.5-36.0 H (BEAKER) (test code = 760) [id number] 04:51:00 Test Item Value Reference Range Interpretation Comments MAGNESIUM (BEAKER) (test code = 2.3 mg/dL 1.6-2.6 627) Credit Collector ID - ADAMARIS MBASIC METABOLIC [id number] 04:51:00 Test Item Value Reference Range Interpretation [...] 697) EGFR (BEAKER) (test 35 mL/min/1.73 ESTIMA ALEX GFR IS code = 1092) sq m NOT ACCURATE CREATININE CLEARANCE IN PREDICTING GLOMERULAR FILTRATION RATE . ESTIMATED GFR I S NOT APPLICABLE FOR DIALYSIS PATIEN TS. Credit Collector ID - ADAMARIS MRAD, CHEST, 1 VIEW, NON [id number] 04:19:00Reason for exam:->intubationShould this be performed at the bedside?->YesFINAL REPORT RAD, CHEST, 1 VIEW, NON DEPT INDICATION: intubation COMPARISON: Prior day's exam FINDINGS: Portable frontal view of the chest. IMPRESSION: Support Lines: Stable. Lungsand pleura: Unchanged airspace and pleural opacities. No pneumothorax.Heart and mediastinum: Stable contours. Additional findings: None. Signed: Iraida Henleyeport Verified Date/Time: 12/27/2019 04:19:08 POCT-GLUCOSE [id number] 00:40:00 Test Item Value Reference Range Interpretation Comments POC-GLUCOSE METER 136 mg/dL 70-110 H : TESTED A T [facility] 6720 (BEAKER) (test code [facility], = 1538) 68840: Credit Collector/Techni lars ID = [id number] for MADELEINE CAMARENA [id number] 00:20:00 Test Item Value Reference Range Interpretation Comments POTASSIUM (BEAKER) (test code = 3.2 meq/L 3.5-5.1 L 379) Credit Collector ID - KENNHEMOGLOBIN AND [id number] 00:06:00 Test Item Value Reference Range Interpretation Comments HEMOGLOBIN (BEAKER) (test code = 7.8 GM/DL 13.7-17.5 L 410) HEMATOCRIT (BEAKER) (test code = 25.4 % 40.1-51.0 L 411) Credit Collector ID - [id number] 23:02:00 Test Item Value Reference Range Interpretation Comments PARTIAL THROMBOPLASTIN TIME 75.0 seconds 22.5-36.0 H (BEAKER) (test code = 760) [id number] 18:20:00 Test Item Value Reference Range Interpretation Comments POTASSIUM (BEAKER) (test code = 2.9 meq/L 3.5-5.1 L 379) Credit Collector ID - STACY [id number] 18:20:00 Test Item Value Reference Range Interpretation Comments MAGNESIUM (BEAKER) (test code = 2.3 mg/dL 1.6-2.6 627) Credit Collector ID - STACY NPOCT-GLUCOSE [id number] 17:33:00 Test Item Value Reference Range Interpretation Comments POC-GLUCOSE METER 127 mg/dL 70-110 H : TESTED A T [facility] 6720 (BEAKER) (test code = [facility], 1538) 90487: Credit Collector/Techni lars ID = [id number] for BARRINGTON CULVER HEMOGLOBIN AND [id number] 14:43:00 Test Item Value Reference Range Interpretation Comments HEMOGLOBIN (BEAKER) (test code = 7.8 GM/DL 13.7-17.5 L 410) HEMATOCRIT (BEAKER) (test code = 25.0 % 40.1-51.0 L 411) Credit Collector ID - 6000POCT-GLUCOSE [id number] 13:37:00 Test Item Value Reference Range Interpretation Comments POC-GLUCOSE METER 123 mg/dL 70-110 H : TESTED A T [facility] 6720 (BEAKER) (test code = [facility], 1538) 75273: Credit Collector/Techni lars ID = [id number] for B[place] CULVER BLOOD [id number] 12:41:00 Test Item Value Reference Interpretation Comments [...] bottles: 1123) gram positive cocci in clusters [id number] 09:37:00 Test Item Value Reference Range Interpretation Comments PARTIAL THROMBOPLASTIN TIME 97.2 seconds 22.5-36.0 H (BEAKER) (test code = 760) RAD, CHEST, 1 VIEW, NON [id number] 09:11:00Reason for exam:- >intubationShould this be performed at the bedside?->YesFINAL REPORT Chest, one view HISTORY: Respiratory failure Comparison: 12/25/2019Findings: Lungs: Stable bibasilar airspace disease. Heart: Stable cardiomegaly. Pleura: No pleural effusion or pneumothorax. Bones: Unremarkable. Lines/tubes: Unchanged in position. IMPRESSION: No significant interval change. Signed: Matthew George MDRepspeedy Verified Date/Time: 12/26/2019 09:11:59 Reading Location: [address] Consult Reading Room SPUTUM CULTURE + GRAM [id number] 09:01:00 Test Item Value Reference Range Interpretation Comments CULTURE (BEAKER) See comment (test code = 1095) GRAM STAIN RESULT 1+ WBCs (BEAKER) (test code = 1123) GRAM STAIN RESULT 0-5 epithelial cells (BEAKER) (test code = 134790) GRAM STAIN RESULT <1+ gram positive cocci (BEAKER) (test code in pairs = 765484) GRAM STAIN RESULT <1+ budding yeast (BEAKER) (test code = 669452) GRAM STAIN RESULT <1+ gram variable (BEAKER) (test code coccobacilli = 090490) 1+ YeastNo Normal respiratory juan presentHEMOGLOBIN AND [id number] 08:11:00 Test Item Value Reference Range Interpretation Comments HEMOGLOBIN (BEAKER) (test code = 6.6 GM/DL 13.7-17.5 L 410) HEMATOCRIT (BEAKER) (test code = 20.9 % 40.1-51.0 L 411) Credit Collector ID - 6000POCT-GLUCOSE [id number] 06:39:00 Test Item Value Reference Range Interpretation Comments POC-GLUCOSE METER 130 mg/dL 70-110 H : TESTED A T [facility] 6720 (BEAKER) (test code = [place], 1538) 53[address]: Credit Collector/Techni lars ID = [id number] for MACIEJ BERRY BLOOD GAS, [id number] 05:05:00 Test Item Value Reference Range Interpretation [...] (BEAKER) (test code = 1819) 30.0 % [id number] 03:31:00 Test Item Value Reference Range Interpretation Comments MAGNESIUM (BEAKER) 2.1 mg/dL 1.6-2.6 Specimen slightly (test code = 627) hemolyzed Credit Collector ID - ADAMARIS MBASIC METABOLIC [id number] 03:31:00 Test Item Value Reference Range Interpretation [...] 697) EGFR (BEAKER) (test 39 mL/min/1.73 ESTIMA ALEX GFR IS code = 1092) sq m NOT ACCURATE CREATININE CLEARANCE IN PREDICTING GLOMERULAR FILTRATION RATE . ESTIMATED GFR I S NOT APPLICABLE FOR DIALYSIS PATIEN TS. Credit Collector ID - ADAMARIS [id number] 03:18:00 Test Item Value Reference Range Interpretation Comments PARTIAL THROMBOPLASTIN TIME 79.6 seconds 22.5-36.0 H (BEAKER) (test code = 760) CBC W/PLT COUNT & AUTO [id number] 03:06:00 Test Item Value Reference Range Interpretation [...] PERCENT (BEAKER) (test code = 2801) POCT-GLUCOSE [id number] 00:00:00 Test Item Value Reference Range Interpretation Comments POC-GLUCOSE METER 100 mg/dL 70-110 : TESTED A T [facility] 6720 (BEAKER) (test code = [place], 1538) 00452: Credit Collector/Techni lars ID = [id number] for YE , WEIPING EOSINOPHIL SMEAR, [id number] 20:38:00 Test Item Value Reference Range Interpretation Comments EOSINOPHIL SMEAR, URINE (BEAKER) No EOS seen No EOS seen (test code = 1851) SODIUM, RANDOM [id number] 20:30:00 Test Item Value Reference Range Interpretation Comments SODIUM URINE (BEAKER) (test code = < meq/L 243) Reference Range: No NormalsOperator ID - [id number] 20:29:00 Test Item Value Reference Range Interpretation Comments PARTIAL THROMBOPLASTIN TIME 56.5 seconds 22.5-36.0 H (BEAKER) (test code = 760) CREATININE, RANDOM [id number] 19:41:00 Test Item Value Reference Range Interpretation Comments CREATININE URINE (BEAKER) (test 51.6 mg/dL code = 375) Reference Range: No NormalsOperator ID - KENNPROTEIN, RANDOM [id number] 19:41:00 Test Item Value Reference Range Interpretation Comments PROTEIN, URINE (BEAKER) (test code = 22 mg/dL 0-14 H 1569) Credit Collector ID - [id number] 18:41:00 Test Item Value Reference Range Interpretation Comments PARTIAL THROMBOPLASTIN TIME 114.5 seconds 22.5-36.0 H (BEAKER) (test code = 760) POCT-GLUCOSE [id number] 18:24:00 Test Item Value Reference Range Interpretation Comments POC-GLUCOSE METER 130 mg/dL 70-110 H : TESTED A T [facility] 6720 (BEAKER) (test code = [employer] [facility], 1538) 18546: Credit Collector/Techni lars ID = [id number] for LISBET KRAMER BLOOD [id number] 16:17:00 Test Item Value Reference Range Interpretation Comments CULTURE A From Anaerobic Bottle (BEAKER) (test Only Coagulas e code = 1095) negative Staphylococcus GRAM STAIN From anaerobic RESULT (BEAKER) bottle only: gram (test code = positive cocci in 1123) clusters BODY FLUID CULTURE + GRAM [id number] 13:20:00 Test Item Value Reference Range Interpretation Comments CULTURE (BEAKER) (test No growth code = 1095) GRAM STAIN RESULT <1+ White blood cells (BEAKER) (test code = seen 1123) GRAM STAIN RESULT No organisms seen (BEAKER) (test code = 13600) POCT-GLUCOSE [id number] 12:41:00 Test Item Value Reference Range Interpretation Comments POC-GLUCOSE METER 143 mg/dL 70-110 H : TESTED A T [facility] 6720 (BEAKER) (test code = [facility], 1538) 66545: Credit Collector/Techni lars ID = [id number] for LISBET KRAMER [id number] 12:32:00 Test Item Value Reference Range Interpretation Comments PARTIAL THROMBOPLASTIN TIME 92.9 seconds 22.5-36.0 H (BEAKER) (test code = 760) U/S, RENAL, [id number] 10:05:00Reason for exam:->akiFINAL REPORT Comparison: CT of the abdomen and pelvis, 12/17/2019 Discussion: [...] MDReport Verified Date/Time: 12/25/2019 10:05:41 Reading Location: [facility] C013T Transitional Reading Room [id number] 07:22:00 Test Item Value Reference Range Interpretation Comments MAGNESIUM (BEAKER) 2.4 mg/dL 1.6-2.6 Specimen slightly (test code = 627) hemolyzed Credit Collector ID - JEN [id number] 07:22:00 Test Item Value Reference Range Interpretation Comments PHOSPHORUS (BEAKER) 3.9 mg/dL 2.3-4.7 Specimen slightly (test code = 604) hemolyzed Credit Collector ID - JEN CCOMPREHENSIVE METABOLIC [id number] 07:22:00 Test Item Value Reference Range Interpretation [...] hemolyzed EGFR (BEAKER) (test 41 mL/min/1.73 ESTIMA ALEX GFR IS code = 1092) sq m NOT ACCURATE CREATININE CLEARANCE IN PREDICTING GLOMERULAR FILTRATION RATE . ESTIMATED GFR I S NOT APPLICABLE FOR DIALYSIS PATIEN TS. Credit Collector ID - JEN CPOCT-GLUCOSE [id number] 06:58:00 Test Item Value Reference Range Interpretation Comments POC-GLUCOSE METER 179 mg/dL 70-110 H : TESTED A T [facility] 6720 (BEAKER) (test code = [facility], 1538) [id number]: Credit Collector/Techni lars ID = [id number] for KIRBY, MAR ISOL RAD, CHEST, 1 VIEW, NON [id number] 06:12:00Reason for exam:- >intubationShould this be performed [...] MDReport Verified Date/Time: 12/25/2019 06:12:41 COMPLEMENT COMPONENT [id number] 05:28:00 Test Item Value Reference Range Interpretation Comments C4 COMPLEMENT (BEAKER) (test code = 28 mg/dL 15-57 394) Credit Collector ID - ADAMARIS MCOMPLEMENT COMPONENT [id number] 05:28:00 Test Item Value Reference Range Interpretation Comments C3 COMPLEMENT (BEAKER) (test code = 142 mg/dL 82-193 393) Credit Collector ID - ADAMARIS MCALCIUM, [id number] 05:24:00 Test Item Value Reference Range Interpretation Comments CALCIUM IONIZED (BEAKER) (test 1.21 mmol/L 1.12-1.27 code = 698) PH, BLOOD (BEAKER) (test code = 7.50 1810) BLOOD GAS, [id number] 05:14:00 Test Item Value Reference Range Interpretation [...] (BEAKER) (test code = 1819) 30.0 % [id number] 05:11:00 Test Item Value Reference Range Interpretation Comments PARTIAL THROMBOPLASTIN TIME 67.7 seconds 22.5-36.0 H (BEAKER) (test code = 760) CBC W/PLT COUNT & AUTO [id number] 05:01:00 Test Item Value Reference Range Interpretation [...] PERCENT (BEAKER) (test code = 2801) POCT-GLUCOSE [id number] 01:26:00 Test Item Value Reference Range Interpretation Comments POC-GLUCOSE METER 150 mg/dL 70-110 H : TESTED A T [facility] 6720 (BEAKER) (test code = [facility], 153) [address]: Credit Collector/Techni lars ID = [id number] for AR MILES, LAMIN POCT-GLUCOSE [id number] 17:58:00 Test Item Value Reference Range Interpretation Comments POC-GLUCOSE METER 166 mg/dL 70-110 H : TESTED A T [facility] 6720 (BEAKER) (test code = [facility], 153) [address]: Credit Collector/Techni lars ID = [id number] for LISBET KRAMER EEG AWAKE AND [id number] 17:26:00Reason for exam:->se[facility]uresCH[facility] DATE(s) OF TEST: 12/16/2019DATE OF REPORT: 12/16/2019ACC: [id number]: 20-0325Start time/date: 15:16Stop time/date: 15:37ICD-10: R56.9CPT Code: 00654 HISTORY: 74 yearold man with encephalopathy, intubated, cooperative. He has [...] rhythm was seen that was symmetric, somewhat re active to eye opening and poorly regulated. More anteriorly, low voltage frontocentral theta predominated. Central mu rhythm was noted at 7 Hz. Drowsiness was characterized by more slowing but stage 2 sleep was not reached. INTERICTAL EPILEPTIFORM DISCHARGES: NoneEVENTS/SEIZURES: None HV: Hyperventilat ion was not done. PHOTIC STIMULATION: Photic stimulation was done from 1-33 Hz; no photic driving was seen; photoparoxysmal responses were absent. VIDEO EVENTS RECORDED: None ELECTROCARDIOGRAM EVENTS: Irregular Rhythm with 2 QRS morphologies IMPRESSION: Abnormal Awake and Drowsy EEG1. Slowing of the po sterior dominant rhythm2. Generalized theta slowing. CLINICAL CORRELATION: The slowing is consistent with a mild degree of encephalopathy. A nonepileptiform EEG does not rule out epilepsy. If the clinical suspicion of epilepsy is high, consider a repeat EEG. Stanley Jean-Baptiste M.D., FACNS, FAAN, FAESProfessor of Neurology, [facility] College of MedicineDirector, [facility] Comprehensive Epilepsy CenterMicah Hair [facility]phys[facility] 05:26 PMCREATINE KINASE (CK)2019-12-24 12:26:00 Test Item Value Reference Range Interpretation Comments CREATINE KINASE TOTAL (BEAKER) (test 13 U/L 29-200 L code = 380) Credit Collector ID - PIAYA LPOCT-GLUCOSE [id number] 12:11:00 Test Item Value Reference Range Interpretation Comments POC-GLUCOSE METER 155 mg/dL 70-110 H : TESTED A T [facility] 6720 (BEAKER) (test code = [place], 1538) [address]: Credit Collector/Techni lars ID = [id number] for LISBET KRAMER RAD, CHEST, 1 VIEW, NON [id number] 10:12:00Reason for exam:- >intubationShould this be performed at the bedside?->YesFINAL REPORT TECHNIQUE: Frontal chest radiographs dated 12/24/2019. CLINICAL HISTORY: Intubation COMPARISON STUDY: Chest radiograph dated 12/23/2019 Impression:Life support tubes anddevices are stable. Lungs increased perihilar airspace opacities are suggestive of pulmonary edema. Stable left pleural effusion. No pneumothorax. Cardiomediastinal silhouette is stable in appearance. Degenerative changes are seen in the spine. Signed: Erika Pateleport Verified Date/Time: 12/24/2019 10:12:54 Reading Location: [address] Transitional Reading Room BASIC METABOLIC [id number] 09:59:00 Test Item Value Reference Range Interpretation [...] 697) EGFR (BEAKER) (test 40 mL/min/1.73 ESTIMA ALEX GFR IS code = 1092) sq m NOT ACCURATE CREATININE CLEARANCE IN PREDICTING GLOMERULAR FILTRATION RATE . ESTIMATED GFR I S NOT APPLICABLE FOR DIALYSIS PATIEN TS. Credit Collector ID - LV LBLOOD GAS, [id number] 08:25:00 Test Item Value Reference Range Interpretation [...] (test code = 1819) 45.0 % POCT-GLUCOSE [id number] 06:32:00 Test Item Value Reference Range Interpretation Comments POC-GLUCOSE METER 186 mg/dL 70-110 H : TESTED A T [facility] 6720 (BEAKER) ([facility], 1538) [address]: Credit Collector/Techni lars ID = [id number] for Co bb, Genesis [id number] 03:57:00 Test Item Value Reference Range Interpretation Comments MAGNESIUM (BEAKER) 2.3 mg/dL 1.6-2.6 Specimen slightly (test code = 627) hemolyzed Credit Collector ID - LV LBASIC METABOLIC [id number] 03:57:00 Test Item Value Reference Range Interpretation [...] 697) EGFR (BEAKER) (test 39 mL/min/1.73 ESTIMA ALEX GFR IS code = 1092) sq m NOT ACCURATE CREATININE CLEARANCE IN PREDICTING GLOMERULAR FILTRATION RATE . ESTIMATED GFR I S NOT APPLICABLE FOR DIALYSIS PATIEN TS. Credit Collector ID - LV LLACTIC ACID, [id number] 03:44:00 Test Item Value Reference Range Interpretation Comments LACTATE BLOOD ARTERIAL (2) 1.9 mmol/L 0.5-2.2 (BEAKER) (test code = 2874) Credit Collector ID - SANAANDRA LCBC W/PLT COUNT & AUTO [id number] 03:40:00 Test Item Value Reference Range Interpretation [...] 0-1 PERCENT (BEAKER) (test code = 2801) [id number] 02:59:00 Test Item Value Reference Range Interpretation Comments PARTIAL THROMBOPLASTIN TIME 88.1 seconds 22.5-36.0 H (BEAKER) (test code = 760) POCT-GLUCOSE [id number] 00:23:00 Test Item Value Reference Range Interpretation Comments POC-GLUCOSE METER 219 mg/dL 70-110 H : TESTED A T [facility] 6720 (BEAKER) (test code = [facility], 1538) [address]: Credit Collector/Techni lars ID = [id number] for Co alli Genesis [id number] 20:07:00 Test Item Value Reference Range Interpretation Comments PARTIAL THROMBOPLASTIN TIME 70.4 seconds 22.5-36.0 H (BEAKER) (test code = 760) PET/CT, WHOLE BODY [id number] 19:37:00FINAL REPORT PROCEDURE: FDG PET/CT for inflammation CPT CODE: 05977 INDICATION:FDG PET/CT was obtained localize persistent bacteremia of unknown COMPARISON: None PROTOCOL: 11.6 mCi of F-18 fluorodeoxyglucose (FDG) was injected intravenously via NA. Serum glucose was NA mg/dL prior to injection. Images were begun NA minutes after injection and included the vertex of the skull to the feet. Limited low- dose CT images were also obtained for attenuation correction and anatomic correl ation of PET scan abnormalities. Radiographic contrast was not administered. A diagnostic CT scan with contrast agents was not performed. FINDINGS: Due to beam hardening the CT scan is of marginal quality. Head and Neck: No abnormal FDG activity within the visualized brain, orbits, paranasal sinuses, pharyngeal soft tissues, and thyroid gland. No FDG-avid cervical lymph nodes. Chest: There is a focusin the right superior anterior mediastinum just deep [...] right lower lobe consistent with inflammatory processes. Nonspecificbowel activity was seen. Focal inflammation cannot be excluded. Signed: Susan Craig MDReport Verified Date/Time: 12/23/2019 19:37:11 POCT- GLUCOSE [id number] 18:31:00 Test Item Value Reference Range Interpretation Comments POC-GLUCOSE METER 158 mg/dL 70-110 H : TESTED A T [facility] 6720 (BEAKER) (test code = [facility], 1538) [address]: Credit Collector/Techni lars ID = [id number] for NICOLE BONI NICOLETATIANADON RESPIRATORY PANEL [id number] 18:28:00 Test Item Value Reference Range Interpretation [...] decisions. This sample was tested at the [facility] using the Search123Array Respiratory Panel. It is FDA cleared and has been verified and approved by the [facility] for clinical use on nasopharyngeal swab specimens.The performance of the FilmArrayRP has not been established in individuals who received influenza vaccine. Recent administration of a nasal influenza vaccine may cause false positive results for Influenza A and/orInfluenza B.POCT-GLUCOSE [id number] 15:39:00 Test Item Value Reference Range Interpretation Comments POC-GLUCOSE METER 169 mg/dL 70-110 H : Notified RN/MD: ([facility]) (test code = TESTED AT [facility] 6720 1538) NAE [facility], [address]: Credit Collector/Techni lars ID = [id number] for RAHEL SALMON [id number] 14:46:00 Test Item Value Reference Range Interpretation Comments CORTISOL, TOTAL (BEAKER) (test 22.9 ug/dL 3.7-19.4 H code = 2755) Credit Collector ID - KARL MPOCT-GLUCOSE [id number] 14:29:00 Test Item Value Reference Range Interpretation Comments POC-GLUCOSE METER 153 mg/dL 70-110 H : TESTED A T [facility] 6720 ([facility]) (test code = [place] [facility], 1538) [address]: Credit Collector/Techni lars ID = [id number] for PA LMA, BLAIRE [id number] 14:27:00 Test Item Value Reference Range Interpretation Comments PARTIAL THROMBOPLASTIN TIME 34.9 seconds 22.5-36.0 (BEAKER) (test code = 760) LACTIC ACID, [id number] 14:25:00 Test Item Value Reference Range Interpretation Comments LACTATE BLOOD ARTERIAL (2) 1.8 mmol/L 0.5-2.2 (BEAKER) (test code = 2874) Credit Collector ID - CAROLINA FHEMOGLOBIN AND [id number] 14:10:00 Test Item Value Reference Range Interpretation Comments HEMOGLOBIN (BEAKER) (test code = 8.2 GM/DL 13.7-17.5 L 410) HEMATOCRIT (BEAKER) (test code = 25.7 % 40.1-51.0 L 411) Credit Collector ID - 6000BLOOD GAS, [id number] 14:04:00 Test Item Value Reference Range Interpretation [...] (BEAKER) (test code = 1819) 45.0 % [id number] 13:21:00 Test Item Value Reference Range Interpretation Comments MAGNESIUM (BEAKER) 2.2 mg/dL 1.6-2.6 Specimen slightly (test code = 627) hemolyzed Credit Collector ID - KARL MBASIC METABOLIC [id number] 13:21:00 Test Item Value Reference Range Interpretation [...] 697) EGFR (BEAKER) (test 46 mL/min/1.73 ESTIMA ALEX GFR IS code = 1092) sq m NOT ACCURATE CREATININE CLEARANCE IN PREDICTING GLOMERULAR FILTRATION RATE . ESTIMATED GFR I S NOT APPLICABLE FOR DIALYSIS PATIEN TS. Credit Collector ID - KARL MBLOOD [id number] 13:07:00 Test Item Value Reference Range Interpretation [...] for additional information.CBC W/PLT COUNT & AUTO [id number] 11:03:00 Test Item Value Reference Range Interpretation [...] 0-1 PERCENT (BEAKER) (test code = 2801) [id number] 11:03:00 Test Item Value Reference Range Interpretation Comments PARTIAL THROMBOPLASTIN TIME 147.2 seconds 22.5-36.0 H (BEAKER) (test code = 760) URINALYSIS W/ REFLEX URINE [id number] 10:00:00 Test Item Value Reference Range Interpretation [...] /LPF = 514) SOURCE(BEAKER) (test code = 0245) Credit Collector ID - [auto]Credit Collector ID - techPOCT-GLUCOSE [id number] 09:32:00 Test Item Value Reference Range Interpretation Comments POC-GLUCOSE METER 181 mg/dL 70-110 H : TESTED A T [facility] 6720 (BEAKER) (test code = [place], 1538) [address]: Credit Collector/Techni lars ID = [id number] for Genesis Potts POCT-GLUCOSE [id number] 09:27:00 Test Item Value Reference Range Interpretation Comments POC-GLUCOSE METER 151 mg/dL 70-110 H : TESTED A T [facility] 6720 (BEAKER) (test code = [place], 1538) [address]: Credit Collector/Techni lars ID = [id number] for LAMIN POSADA BLOOD GAS, [id number] 05:53:00 Test Item Value Reference Range Interpretation [...] (BEAKER) (test code = 1819) 45.0 % [id number] 03:27:00 Test Item Value Reference Range Interpretation Comments PARTIAL THROMBOPLASTIN TIME 119.7 seconds 22.5-36.0 H (BEAKER) (test code = 760) [id number] 03:01:00 Test Item Value Reference Range Interpretation Comments MAGNESIUM (BEAKER) (test code = 2.4 mg/dL 1.6-2.6 627) Credit Collector ID - PIAYA LBASIC METABOLIC [id number] 03:01:00 Test Item Value Reference Range Interpretation [...] 697) EGFR (BEAKER) (test 48 mL/min/1.73 ESTIMA ALEX GFR IS code = 1092) sq m NOT ACCURATE CREATININE CLEARANCE IN PREDICTING GLOMERULAR FILTRATION RATE . ESTIMATED GFR I S NOT APPLICABLE FOR DIALYSIS PATIEN TS. Credit Collector ID - PIAYA LCBC W/PLT COUNT & AUTO [id number] 02:53:00 Test Item Value Reference Range Interpretation [...] (BEAKER) (test code = 2801) BLOOD GAS, [id number] 02:45:00 Test Item Value Reference Range Interpretation [...] 60.0 % RAD, CHEST, 1 VIEW, NON [id number] 02:01:00Reason for exam:->sobShould this be performed at [...] Additional findings: None. Signed: Iraida Henley Verified D ate/Time: 12/23/2019 02:01:11 BLOOD GAS, [id number] 01:19:00 Test Item Value Reference Range Interpretation [...] (test code = 1819) 21.0 % POCT-GLUCOSE [id number] 23:42:00 Test Item Value Reference Range Interpretation Comments POC-GLUCOSE METER 135 mg/dL 70-110 H : TESTED A T [facility] 6720 (BEAKER) (test code = [place], 1538) [address]: Credit Collector/Techni lars ID = [id number] for Co bb, Genesis [id number] 18:51:00 Test Item Value Reference Range Interpretation Comments POTASSIUM (BEAKER) 4.1 meq/L 3.5-5.1 Specimen slightly (test code = 379) hemolyzed Credit Collector ID - [id number] 18:44:00 Test Item Value Reference Range Interpretation Comments PARTIAL THROMBOPLASTIN TIME 50.0 seconds 22.5-36.0 H (BEAKER) (test code = 760) POCT-GLUCOSE [id number] 18:32:00 Test Item Value Reference Range Interpretation Comments POC-GLUCOSE METER 147 mg/dL 70-110 H : TESTED A T [facility] 6720 (BEAKER) (test code = [facility], 1538) [address]: Credit Collector/Techni lars ID = [id number] for PE CRISTIN CONNELL RAD, ABDOMEN/KUB, 1 VIEW [id number] 16:39:00Reason for exam:->tube placementShould this be performed at the bedside?->YesFINAL REPORT Abdomen date 12/22/2019 Comment: Frontal view of the abdomen demonst rates a nasogastric tube present with tip noted in the body of the stomach. Signed: Edilberto Gregory MDReport Verified Date/Time: 12/22/2019 16:39:35 Reading Location: [address] Consult Reading Room POCT-GLUCOSE [id number] 12:48:00 Test Item Value Reference Range Interpretation Comments POC-GLUCOSE METER 141 mg/dL 70-110 H : TESTED A T [facility] 6720 (BEAKER) (test code = [place] [facility], 1538) [address]: Credit Collector/Techni lars ID = [id number] for AG ADELALARLAWRENCECAROL ANN [id number] 12:34:00 Test Item Value Reference Range Interpretation Comments MAGNESIUM (BEAKER) 2.3 mg/dL 1.6-2.6 Specimen slightly (test code = 627) hemolyzed Credit Collector ID - [id number] 12:34:00 Test Item Value Reference Range Interpretation Comments POTASSIUM (BEAKER) 3.6 meq/L 3.5-5.1 Specimen slightly (test code = 379) hemolyzed Credit Collector ID - [id number] 12:24:00 Test Item Value Reference Range Interpretation Comments PARTIAL THROMBOPLASTIN TIME 45.8 seconds 22.5-36.0 H (BEAKER) (test code = 760) B-TYPE NATRIURETIC FACTOR (BNP)2019-12-22 10:25:00 Test Item Value Reference Range Interpretation Comments B-TYPE NATRIURETIC PEPTIDE (BEAKER) 632 pg/mL 0-100 H (test code = 700) Credit Collector ID - DBBLOOD GAS, [id number] 10:04:00 Test Item Value Reference Range Interpretation [...] (test code = 1819) 30.0 % BLOOD [id number] 10:03:00 Test Item Value Reference Range Interpretation [...] positive cocci in clusters BLOOD CULTURE IDENTIFICATION [id number] 10:00:00 Test Item Value Reference Interpretation Comments Range LISTERIA MONOCYTOGENES Not detected Not detected (test code = 2438660) STAPHYLOCOCCUS (test Detected Not detected A Coagula se negative code = 20161001) Staph specie s (CoNS)- methici llin susceptibleFirs t-seble e therapy: Cefa zolin or Oxacillin (Oxacillin pref erred if CIVIL STRUCTURAL ENGINEER involvem ent) MecA NOT DETECTEDPossibl e contamination. The likelihood of pathogenicity i s increased if th e organism is obs erved in multiple blo od cultures obtain ed from separate venipunctures.R efere nce Range: Not Detected STAPHYLOCOCCUS AUREUS Not detected Not detected (test code = 4368245) STREPTOCOCCUS (test Not detected Not detected code = 1124301) STREPTOCOCCUS Not detected Not detected AGALACTIAE (GROUP B) (test code = 9121207) STREPTOCOCCUS Not detected Not detected PNEUMONIAE (test code = 4652372) STREPTOCOCCUS PYOGENES Not detected Not detected (GROUP A) (test code = 1957049) ACINETOBACTER BAUMANNII Not detected Not detected (test code = 7961964) HAEMOPHILUS INFLUENZAE Not detected Not detected (test code = 1987061) NEISSERIA MENINGITIDIS Not detected Not detected (test code = 5752129) ENTEROBACTERIACEAE (test code = 7050898) ENTEROBACTER CLOACOE Not detected Not detected COMPLEX (test code = 0722914) KLEBSIELLA OXYTOCA Not detected Not detected (test code = 2102358) KLEBSIELLA PNEUMONIAE Not detected Not detected (test code = 1650) PROTEUS (test code = 7632544) SERRATIA MARCESCENS Not detected Not detected (test code = 1586540) JAMAL ALBICANS (test Not detected Not detected code = 4621489) JAMAL GLABRATA (test Not detected Not detected code = 8692559) JAMAL KRUSEI (test Not detected Not detected code = 6344895) JAMAL PARAPSILOSIS Not detected Not detected (test code = 4231210) JAMAL TROPICALIS Not detected Not detected (test code = 1610390) ESCHERICHIA COLI (test Not detected Not detected code = 7151276) METHICILLIN-RESISTANCE Not detected Not detected GENE (test code = 7449413) VANCOMYCIN-RESISTANCE GENE (test code = 6633035) CARBAPENEM-RESISTANCE GENE (test code = 7475830) ENTEROCOCCUS-BEAKER Not detected Not detected (test code = 0380160) PSEUDOMONAS Not detected Not detected AERUGINOSA-BEAKER (test code = 7355911) Other bacteria and resistance markers not targeted by this PCR panel cannot be excluded; therefore clinical correlation and follow up of serology, culture results, and other molecular studies is required. The results are not intended to be used as the sole means for clinical diagnosis or patient management decisions. This sample was tested at the [facility] using the Umbrella Here Blood Culture ID Panel. It is FDA cleared and has been verified and approved by the [facility] for clinical [...] ed only after consultat ion with the [facility] microbiology laboratory.Refe r to previous cultur e of* - Staphylococcus lugdunensis GRAM STAIN From aerobic and RESULT (BEAKER) anaerobic (test code = bottles: gram 1123) positive cocci in clusters RAD, CHEST, 1 VIEW, NON [id number] 08:26:00Reason for exam:->sobShould this be performed at [...] Location: [facility] Radiology Reading Room [id number] 08:18:00 Test Item Value Reference Range Interpretation Comments PARTIAL THROMBOPLASTIN TIME 102.7 seconds 22.5-36.0 H (BEAKER) (test code = 760) HEMOGLOBIN AND [id number] 08:01:00 Test Item Value Reference Range Interpretation Comments HEMOGLOBIN (BEAKER) (test code = 7.8 GM/DL 13.7-17.5 L 410) HEMATOCRIT (BEAKER) (test code = 24.5 % 40.1-51.0 L 411) Credit Collector ID - [id number] 06:31:00 Test Item Value Reference Range Interpretation Comments PARTIAL THROMBOPLASTIN TIME 95.3 seconds 22.5-36.0 H (BEAKER) (test code = 760) POCT-GLUCOSE [id number] 06:22:00 Test Item Value Reference Range Interpretation Comments POC-GLUCOSE METER 144 mg/dL 70-110 H : TESTED A T [facility] 6720 (BEAKER) (test code = [place], 1538) [address]: Credit Collector/Techni lars ID = [id number] for Co Genesis carson [id number] 06:06:00 Test Item Value Reference Range Interpretation Comments MAGNESIUM (BEAKER) 2.2 mg/dL 1.6-2.6 Specimen slightly (test code = 627) hemolyzed Credit Collector ID - ADAMARIS MBASIC METABOLIC [id number] 06:06:00 Test Item Value Reference Range Interpretation [...] 697) EGFR (BEAKER) (test 57 mL/min/1.73 ESTIMA ALEX GFR IS code = 1092) sq m NOT ACCURATE CREATININE CLEARANCE IN PREDICTING GLOMERULAR FILTRATION RATE . ESTIMATED GFR I S NOT APPLICABLE FOR DIALYSIS PATIEN TS. Credit Collector ID - ADAMARIS MCBC W/PLT COUNT & AUTO [id number] 04:09:00 Test Item Value Reference Range Interpretation [...] PERCENT (BEAKER) (test code = 2801) POCT-GLUCOSE [id number] 00:13:00 Test Item Value Reference Range Interpretation Comments POC-GLUCOSE METER 122 mg/dL 70-110 H : TESTED Joanna Luque [facility] 6720 (BEAKER) (test code = [place], 1538) [address]: Credit Collector/Techni lars ID = [id number] for Genesis Potts [id number] 23:33:00 Test Item Value Reference Range Interpretation Comments PARTIAL THROMBOPLASTIN TIME 68.4 seconds 22.5-36.0 H (BEAKER) (test code = 760) U/S, [id number] 19:46:00Laterality?->LeftReason for exam:- >Diagnostic samplingLabs to be Ordered:->Body Fluid Culture (w/Gram Stain, C\\T\\S)Body fluid cell countLabs to be Ordered:->Glucose+LDH+ProteinLabs to be Ordered:->Other (please add comment)Labs to be Ordered:->Fungal Culture FINAL REPORT Exam: Ultrasound guided thoracentesis Clinical History: Left-sidedPleural Effusion Grain Elevator Superintendent: Cassidy Parra PA-C Supervising Physician: Luis Miguel [...] The patient tolerated the procedure well without anyadverse reaction. A STAT chest x-ray was ordered. The patient left the department in stable condition. Impression: Ultrasound guided left-sided thoracentesis. Signed: Luis Miguel Gloverort Verified Da te/Time: 12/21/2019 19:46:02 Reading Location: [address] Ultrasound Reading Room FLUID CELL COUNT WITH [id number] 19:01:00 Test Item Value Reference Range Interpretation Comments APPEARANCE FLUID (BEAKER) Bloody Clear A (test code = 510) COLOR FLUID (BEAKER) (test Red Colorless, Straw A code = 511) RBC FLUID (BEAKER) (test code 053768 /cu mm <=1 H = 513) ADJUSTED [...] (BEAKER) EDTA Tube (test code = 2873) [id number] 17:13:00 Test Item Value Reference Range Interpretation [...] is 2.5-3.5 for patients wiht mechanical heart valves.RAD, CHEST, 1 VIEW, NON [id number] 16:16:00Reason for exam:->post left sided thoracentesisShould this be performed at the bedside?->YesFINAL REPORT History: Status post left-sided thoracentesis Comparison: 12/19/2019 Findings: Status post thoracentesis. No pneumothorax is identified. There is mild pulmonary edema. L eft lung base airspace consolidation persists. The left pleural effusion has decreased in size. The heart shadow remains enlarged. Right subclavian transvenous cardiac pacing hardware remains in place,with the lead in the region of the right ventricle. Signed: Radha Marie MDReport Verified Date/Time: 12/21/2019 16:16:44 Reading Location: [facility] Radiology Reading Room ANAEROBIC [id number] 16:14:00 Test Item Value Reference Range Interpretation Comments CULTURE (BEAKER) (test No anaerobes isolated code = 1095) PROTHROMBIN [id number] 12:46:00 Test Item Value Reference Range Interpretation [...] is 2.5-3.5 for patients wiht mechanical heart valves.POCT-GLUCOSE [id number] 12:38:00 Test Item Value Reference Range Interpretation Comments POC-GLUCOSE METER 138 mg/dL 70-110 H : TESTED A T [facility] 6720 (BEAKER) (test code = [address] [facility], 1538) [address]: Credit Collector/Techni lars ID = [id number] for CAROL ANN OSEGUERA [id number] 11:10:00 Test Item Value Reference Range Interpretation [...] is 2.5-3.5 for patients wiht mechanical heart valves.SURGICALLY OBTAINED CULTURE + GRAM [id number] 08:57:00 Test Item Value Reference Interpretation Comments [...] (test code = cocci in pairs and 054113) clusters CREATINE KINASE (CK)2019-12-21 05:56:00 Test Item Value Reference Range Interpretation Comments CREATINE KINASE TOTAL (BEAKER) (test 18 U/L 29-200 L code = 380) Credit Collector ID - ADAMARIS [id number] 05:43:00 Test Item Value Reference Range Interpretation Comments MAGNESIUM (BEAKER) 2.3 mg/dL 1.6-2.6 Specimen slightly (test code = 627) hemolyzed Credit Collector ID - ADAMARIS MBASIC METABOLIC [id number] 05:43:00 Test Item Value Reference Range Interpretation [...] 697) EGFR (BEAKER) (test 62 mL/min/1.73 ESTIMA ALEX GFR IS code = 1092) sq m NOT ACCURATE CREATININE CLEARANCE IN PREDICTING GLOMERULAR FILTRATION RATE . ESTIMATED GFR I S NOT APPLICABLE FOR DIALYSIS PATIEN TS. Credit Collector ID - ADAMARIS MCBC W/PLT COUNT & AUTO [id number] 05:17:00 Test Item Value Reference Range Interpretation [...] H PERCENT (BEAKER) (test code = 2801) [id number] 05:16:00 Test Item Value Reference Range Interpretation Comments PARTIAL THROMBOPLASTIN TIME 63.0 seconds 22.5-36.0 H (BEAKER) (test code = 760) POCT-GLUCOSE [id number] 23:39:00 Test Item Value Reference Range Interpretation Comments POC-GLUCOSE METER 162 mg/dL 70-110 H : TESTED A T [facility] 6720 (BEAKER) (test code = [facility], 153) [id number]: Credit Collector/Techni lars ID = [id number] for MICHELLE MATHIS BLOOD GAS, [id number] 21:17:00 Test Item Value Reference Range Interpretation [...] (test code = 1819) 21.0 % POCT-GLUCOSE [id number] 18:36:00 Test Item Value Reference Range Interpretation Comments POC-GLUCOSE METER 149 mg/dL 70-110 H : TESTED A T [facility] 6720 (BEAKER) (test code = [facility] [employer] [facility], 1538) 18493: Credit Collector/Techni lars ID = [id number] for AG UISAIGE CAROL ANN [id number] 17:13:00 Test Item Value Reference Range Interpretation Comments PARTIAL THROMBOPLASTIN TIME 72.8 seconds 22.5-36.0 H (BEAKER) (test code = 760) POCT-GLUCOSE [id number] 12:29:00 Test Item Value Reference Range Interpretation Comments POC-GLUCOSE METER 179 mg/dL 70-110 H : [facility] (BEAKER) (test code = [place], 1538) 85603: Credit Collector/Techni lars ID = [id number] for CAROL ANN OSEGUERA [id number] 11:15:00 Test Item Value Reference Range Interpretation Comments PARTIAL THROMBOPLASTIN TIME 76.4 seconds 22.5-36.0 H (BEAKER) (test code = 760) BLOOD GAS, [id number] 10:14:00 Test Item Value Reference Range Interpretation [...] (test code = 1819) 21.0 % BLOOD [id number] 09:49:00 Test Item Value Reference Range Interpretation [...] gram 1123) positive cocci in clusters BLOOD [id number] 09:49:00 Test Item Value Reference Range Interpretation [...] gram 1123) positive cocci in clusters POCT-GLUCOSE [id number] 06:19:00 Test Item Value Reference Range Interpretation Comments POC-GLUCOSE METER 202 mg/dL 70-110 H : TESTED A T [facility] 6720 (BEAKER) (test code = [place], 1538) 07[address]: Credit Collector/Techni lars ID = [id number] for JOSEPHINE MUSE [id number] 04:33:00 Test Item Value Reference Range Interpretation Comments PARTIAL THROMBOPLASTIN TIME 53.7 seconds 22.5-36.0 H (BEAKER) (test code = 760) [id number] 04:27:00 Test Item Value Reference Range Interpretation Comments MAGNESIUM (BEAKER) (test code = 2.2 mg/dL 1.6-2.6 627) Credit Collector ID - TRAN WBASIC METABOLIC [id number] 04:27:00 Test Item Value Reference Range Interpretation [...] 697) EGFR (BEAKER) (test 62 mL/min/1.73 ESTIMA ALEX GFR IS code = 1092) sq m NOT ACCURATE CREATININE CLEARANCE IN PREDICTING GLOMERULAR FILTRATION RATE . ESTIMATED GFR I S NOT APPLICABLE FOR DIALYSIS PATIEN TS. Credit Collector ID - TRAN WCBC W/PLT COUNT & AUTO [id number] 04:18:00 Test Item Value Reference Range Interpretation [...] PERCENT (BEAKER) (test code = 2801) POCT-GLUCOSE [id number] 23:24:00 Test Item Value Reference Range Interpretation Comments POC-GLUCOSE METER 160 mg/dL 70-110 H : TESTED A T [facility] 6720 (BEAKER) (test code = [employer] [facility], 1538) 74574: Credit Collector/Techni lars ID = [id number] for AL JOSEPHINE Max [id number] 21:10:00 Test Item Value Reference Range Interpretation Comments PARTIAL THROMBOPLASTIN TIME 70.0 seconds 22.5-36.0 H (BEAKER) (test code = 760) [id number] 13:55:00 Test Item Value Reference Range Interpretation Comments PARTIAL THROMBOPLASTIN TIME 70.0 seconds 22.5-36.0 H (BEAKER) (test code = 760) POCT-GLUCOSE [id number] 12:13:00 Test Item Value Reference Range Interpretation Comments POC-GLUCOSE METER 165 mg/dL 70-110 H : TESTED A T [facility] 6720 (BEAKER) (test code [facility], = 1538) 66058: Credit Collector/Techni lars ID = [id number] for FAHAD SILVA RAD, CHEST, 1 VIEW, NON [id number] 11:54:00Reason for exam:- >tachypneaShould this be performed at the bedside?->YesFINAL REPORT RAD, CHEST, 1 VIEW, NON DEPT INDICATION: tachypnea COMPARISON: December 17, 2019 FINDINGS: Portable frontal view of the chest. IMPRESSION: Support Lines: Pacer device.Lungs and pleura: Left basilar atelectasis and retrocardiac airspace disease No pneumothorax.Heart and mediastinum: Stable contours. Additional findings: None. Signed: Madeline Casas VerifiedDate/Time: 12/19/2019 11:54:30 Reading Location: [address] Neuro Reading Room BLOOD [id number] 11:04:00 Test Item Value Reference Range Interpretation [...] gram 1123) positive cocci in clusters BLOOD [id number] 11:02:00 Test Item Value Reference Range Interpretation [...] bottles: gram 1123) positive cocci in clusters [id number] 07:08:00 Test Item Value Reference Range Interpretation Comments MAGNESIUM (BEAKER) 2.2 mg/dL 1.6-2.6 Specimen slightly (test code = 627) hemolyzed Credit Collector ID - DBBASIC METABOLIC [id number] 07:08:00 Test Item Value Reference Range Interpretation [...] 697) EGFR (BEAKER) (test 61 mL/min/1.73 ESTIMA ALEX GFR IS code = 1092) sq m NOT ACCURATE CREATININE CLEARANCE IN PREDICTING GLOMERULAR FILTRATION RATE . ESTIMATED GFR I S NOT APPLICABLE FOR DIALYSIS PATIEN TS. Credit Collector ID - [id number] 06:41:00 Test Item Value Reference Range Interpretation Comments PARTIAL THROMBOPLASTIN TIME 63.5 seconds 22.5-36.0 H (BEAKER) (test code = 760) CBC W/PLT COUNT & AUTO [id number] 05:29:00 Test Item Value Reference Range Interpretation [...] H PERCENT (BEAKER) (test code = 2801) [id number] 00:50:00 Test Item Value Reference Range Interpretation Comments PARTIAL THROMBOPLASTIN TIME 57.8 seconds 22.5-36.0 H (BEAKER) (test code = 760) [id number] 18:03:00 Test Item Value Reference Range Interpretation Comments MAGNESIUM (BEAKER) 2.1 mg/dL 1.6-2.6 Specimen slightly (test code = 627) hemolyzed Credit Collector ID - [id number] 18:03:00 Test Item Value Reference Range Interpretation Comments POTASSIUM (BEAKER) 3.9 meq/L 3.5-5.1 Specimen slightly (test code = 379) hemolyzed Credit Collector ID - [id number] 17:58:00 Test Item Value Reference Range Interpretation Comments PARTIAL THROMBOPLASTIN TIME 50.8 seconds 22.5-36.0 H (BEAKER) (test code = 760) HEMOGLOBIN [id number] 12:53:00 Test Item Value Reference Range Interpretation Comments HEMOGLOBIN A1C (BEAKER) (test code = 5.4 % 4.3-6.1 368) [id number] 12:00:00 Test Item Value Reference Range Interpretation Comments POTASSIUM (BEAKER) (test code = 3.1 meq/L 3.5-5.1 L 379) Credit Collector ID - IBAN [id number] 12:00:00 Test Item Value Reference Range Interpretation Comments MAGNESIUM (BEAKER) (test code = 2.3 mg/dL 1.6-2.6 627) Credit Collector ID - IBAN FBLOOD [id number] 11:19:00 Test Item Value Reference Range Interpretation Comments CULTURE A From Aerobic An d (BEAKER) (test Anaerobic Bot tles Same code = 1095) organism has be en isolated from cultures(s) of the same body site and collection date . Repeat identifi cation and susceptibil ity testing perform ed only after consultat ion with the [facility] microbiology laboratory.Refe r to previous cultur e of* - Staphylococcus lugdunensis GRAM STAIN From aerobic and RESULT (BEAKER) anaerobic (test code = bottles: gram 1123) positive cocci in clusters BLOOD [id number] 11:17:00 Test Item Value Reference Interpretation Comments [...] bottles: 1123) gram positive cocci in clusters [id number] 10:51:00 Test Item Value Reference Range Interpretation Comments PARTIAL THROMBOPLASTIN TIME 32.0 seconds 22.5-36.0 (BEAKER) (test code = 760) Prior to initiating heparinCBC W/PLT COUNT & AUTO [id number] 05:41:00 Test Item Value Reference Range Interpretation [...] 0-1 H PERCENT (BEAKER) (test code = 2803) [id number] 05:03:00 Test Item Value Reference Range Interpretation Comments MAGNESIUM (BEAKER) 2.1 mg/dL 1.6-2.6 Specimen slightly (test code = 627) hemolyzed Credit Collector ID - ADAMARIS MBASIC METABOLIC [id number] 05:03:00 Test Item Value Reference Range Interpretation [...] 697) EGFR (BEAKER) (test 59 mL/min/1.73 ESTIMA ALEX GFR IS code = 1092) sq m NOT ACCURATE CREATININE CLEARANCE IN PREDICTING GLOMERULAR FILTRATION RATE . ESTIMATED GFR I S NOT APPLICABLE FOR DIALYSIS PATIEN TS. Credit Collector ID - ADAMARIS MVANCOMYCIN LEVEL, [id number] 19:14:00 Test Item Value Reference Range Interpretation Comments VANCOMYCIN TROUGH (BEAKER) (test 10.8 ug/mL 10.0-20.0 code = 522) CT, CHEST, WITHOUT [id number] 13:42:00FINAL REPORT CT of the Chest, abdomen and pelvis dated 12/17/2019 Clinical information: pneumonia Comment: Axial images of the chest, abdomen, and pelvis were obtained from thoracicinlet to the pubic symphysis without GI or [...] are unremarkable. No adenopathy in the mediastinum orperihilar region. Trachea and mainstem bronchi are patent. Moderate left pleural effusion is presentwith left lower lobe compressive atelectasis. Subsegmental atelectasis is seen in the right lung base. The rest of the lungs are clear. No nodular, mass lesion, or airspace disease is seen. Liver and spleen are normal in size. No focal lesion is seen in the liver or the spleen. Gallbladder is distended. No gallstone or biliary dilatation is noted. Pancreas and adrenals are unremarkable. Both kidneys [...] cyst is seen in the inferior pole l eft kidney. Diverticular disease is seen in the [...] MDReport Verified Date/Time: 12/17/2019 13:42:11 Reading Location: [facility] C013Y CT Body Reading Room CT, [id number] 13:42:00FINAL REPORT CT of the Chest, abdomen and pelvis dated 12/17/2019 Clinical inform ation: pneumonia Comment: Axial images of the chest, abdomen, and pelvis were obtained from thoracicinlet to the pubic symphysis without GI or intravenous contrast. This exam was performed according to our departmental dose- optimization program, which includes automated exposure control, adjustment of the mA and/or kV according to patient size and/or use of interactive reconstruction technique. Heart is enlarged. There is small pericardial effusion. Atherosclerotic calcification is seen in the thoracic aorta and coronary arteries. Great vessels are unremarkable. No adenopathy in the mediastinum orperihilar region. Trachea and mainstem bronchi are patent. Moderate left pleural effusion is presentwith left lower lobe compressive atelectasis. Subsegmental atelectasis is seen in the right lung base. The rest of the lungs are clear. No nodular, mass lesion, or airspace disease is seen. Liver and spleen are normal in size. No focal lesion is seen in the liver or the spleen. Gallbladder is distended. No gallstone or biliary dilatation is noted. Pancreas and adrenals are unremarkable. Both kidneys [...] Gregory Verified Date/Time: 12/17/2019 13:42:11 Reading Location: [address] Body Reading Room CT, BRAIN, [...] Casas Verified Date/Time: 12/17/2019 11:48:34 Reading Location: [facility] C0[facility] Neuro Reading Room RAD, CHEST, 1 VIEW, NON [id number] 10:42:00Reason for exam:->intubationFINAL REPORT CLINICAL HISTORY: intubation TECHNIQUE: 1 view of the chest. COMPARISON: 12/16/2019 IMPRESSION: An ETT and NGT appear unchanged. Left lung base pleural-parenchymal opacification is unchanged. The cardiomediastinal silhouette is magnified by technique with a pacemaker. Signed: Gil Cuenca MDReport Verified Date/Time: 12/17/2019 10:42:15 Reading Location: [facility] Radiology Reading Room URINE [id number] 10:21:00 Test Item Value Reference Range Interpretation Comments CULTURE (BEAKER) (test code = 1095) No growth [id number] 04:42:00 Test Item Value Reference Range Interpretation Comments FERRITIN (BEAKER) (test code = 4442 ng/mL 5-275 H 361) Credit Collector ID - ADAMARIS MTSH/FREE T4 IF [id number] 04:41:00 Test Item Value Reference Range Interpretation Comments THYROID STIMULATING HORMONE 0.72 uIU/mL 0.35-4.94 (BEAKER) (test code = 772) Credit Collector ID - ADAMARIS MVITAMIN B12 AND [id number] 04:41:00 Test Item Value Reference Range Interpretation Comments VITAMIN B12 (BEAKER) (test code = 767 pg/mL 213-816 774) FOLATE (BEAKER) (test code = 362) 5.1 ng/mL >=7.0 L Credit Collector ID - ADAMARIS BENIGNO, TIBC, % SAT. (WITHOUT FERRITIN)2019-12-17 03:47:00 Test Item Value Reference Range Interpretation Comments IRON (BEAKER) (test code = 547) 21.0 ug/dL 40.0-160.0 L TOTAL IRON BINDING CAPACITY 115 ug/dL 250-450 L (BEAKER) (test code = 769) IRON % SATURATION (2) (BEAKER) 18 % 20-55 L (test code = 2590) Credit Collector ID - ADAMARIS [id number] 03:46:00 Test Item Value Reference Range Interpretation Comments MAGNESIUM (BEAKER) (test code = 2.1 mg/dL 1.6-2.6 627) Credit Collector ID - ADAMARIS MBASIC METABOLIC [id number] 03:46:00 Test Item Value Reference Range Interpretation [...] 697) EGFR (BEAKER) (test 62 mL/min/1.73 ESTIMA ALEX GFR IS code = 1092) sq m NOT ACCURATE CREATININE CLEARANCE IN PREDICTING GLOMERULAR FILTRATION RATE . ESTIMATED GFR I S NOT APPLICABLE FOR DIALYSIS PATIEN TS. Credit Collector ID - ADAMARIS MHEPATIC FUNCTION [id number] 03:46:00 Test Item Value Reference Range Interpretation [...] (test code = 15 U/L 6-55 347) Credit Collector ID - ADAMARIS MCBC W/PLT COUNT & AUTO [id number] 03:46:00 Test Item Value Reference Range Interpretation [...] PERCENT (BEAKER) (test code = 2801) PROTHROMBIN [id number] 03:35:00 Test Item Value Reference Range Interpretation [...] is 2.5-3.5 for patients wiht mechanical heart valves.LACTIC ACID, [id number] 03:28:00 Test Item Value Reference Range Interpretation Comments LACTATE BLOOD VENOUS 1.1 mmol/L 0.5-2.2 Specime n slightly (2) (BEAKER) (test hemolyzed code = 2872) Credit Collector ID - ADAMARIS MRETICULOCYTE [id number] 03:21:00 Test Item Value Reference Range Interpretation Comments RETICULOCYTE COUNT PCT (BEAKER) (test 2.1 % 0.5-1.8 H code = 575) Credit Collector ID - 6000BLOOD GAS, [id number] 03:16:00 Test Item Value Reference Range Interpretation Comments PH ARTERIAL (BEAKER) (test code = 7.51 7.35-7.45 H 383) PCO2 ARTERIAL (BEAKER) (test code 34 mmHg 35-45 L = 384) PO2 ARTERIAL (BEAKER) (test code = 154 mmHg 80-90 H 385) O2 SATURATION ARTERIAL (BEAKER) 99.1 % 96.0-97.0 H (test code = 386) HCO3 ARTERIAL (BEAKER) (test code 26 mmol/L -29 = 388) BASE EXCESS ARTERIAL (BEAKER) 3.6 mmol/L -2.0-3.0 H (test code = 387) PATIENT TEMPERATURE (BEAKER) (test 38.0 C code = 1818) FIO2 (BEAKER) (test code = 1819) 50.0 % [id number] 00:42:00 Test Item Value Reference Range Interpretation Comments CORTISOL, TOTAL (BEAKER) (test 16.3 ug/dL 3.7-19.4 code = 2755) Credit Collector ID - BSVANCOMYCIN LEVEL, [id number] 21:12:00 Test Item Value Reference Range Interpretation Comments VANCOMYCIN TROUGH (BEAKER) (test 6.1 ug/mL 10.0-20.0 L code = 522) Credit Collector ID - [id number] 21:11:00 Test Item Value Reference Range Interpretation Comments MAGNESIUM (BEAKER) 1.7 mg/dL 1.6-2.6 Specimen slightly (test code = 627) hemolyzed Credit Collector ID - BSBASIC METABOLIC [id number] 21:11:00 Test Item Value Reference Range Interpretation [...] 697) EGFR (BEAKER) (test 63 mL/min/1.73 ESTIMA ALEX GFR IS code = 1092) sq m NOT ACCURATE CREATININE CLEARANCE IN PREDICTING GLOMERULAR FILTRATION RATE . ESTIMATED GFR I S NOT APPLICABLE FOR DIALYSIS PATIEN TS. Credit Collector ID - BSPOCT-GLUCOSE [id number] 18:34:00 Test Item Value Reference Range Interpretation Comments POC-GLUCOSE METER 95 mg/dL 70-110 : TESTED A T [facility] 6720 (BEAKER) (test code = [place], 1538) 257[address]: Credit Collector/Techni lars ID = [id number] for AKIKO LAR, CAROL ANN RAD, CHEST, 1 VIEW, NON [id number] 15:48:00Reason for exam:->ett placementShould this be performed at the bedside?->YesFINAL REPORT CHEST ONE VIEW HISTORY: Endotracheal tube placement COMPARISON: Non e FINDINGS: Single portable AP examination of the chest was performed. Endotracheal tube tip is 5.5 cm proximal to the ada. Nasogastric tube passes below the diaphragm, with the tip not imaged. Right subclavian transvenous cardiac pacing hardware is present, with a lead in the region of the right ve ntricle. Right lung clear. No right pleural effusion or pneumothorax. There is increased opacity in the lower left hemithorax, obscuring the left heart border and left diaphragm, suggestive of left lung base airspace consolidation and a left pleural effusion. The cardiac shadow is partially obscured. Signed: Radha Marie MDReport Verified Date/Time: 12/16/2019 15:48:48 Reading Location: [facility] Radiology Reading Room BLOOD CULTURE IDENTIFICATION [id number] 15:32:00 Test Item Value Reference Interpretation Comments Range LISTERIA MONOCYTOGENES Not detected Not detected (test code = 6077119) STAPHYLOCOCCUS (test Detected Not detected A Coagula se negative code = 7285555) Staph specie s (CoNS)- methici llin susceptibleFirs t-seble e therapy: Cefa zolin or Oxacillin (Oxacillin pref erred if CIVIL STRUCTURAL ENGINEER involvem ent) MecA NOT DETECTEDPossibl e contamination. The likelihood of pathogenicity i s increased if th e organism is obs erved in multiple blo od cultures obtain ed from separate venipunctures.R efere nce Range: Not Detected STAPHYLOCOCCUS AUREUS Not detected Not detected (test code = 1084519) STREPTOCOCCUS (test Not detected Not detected code = 8677423) STREPTOCOCCUS Not detected Not detected AGALACTIAE (GROUP B) (test code = 0848808) STREPTOCOCCUS Not detected Not detected PNEUMONIAE (test code = 7474753) STREPTOCOCCUS PYOGENES Not detected Not detected (GROUP A) (test code = 1756757) ACINETOBACTER BAUMANNII Not detected Not detected (test code = 2313793) HAEMOPHILUS INFLUENZAE Not detected Not detected (test code = 4239080) NEISSERIA MENINGITIDIS Not detected Not detected (test code = 4086539) ENTEROBACTERIACEAE Not detected Not detected (test code = 1839860) ENTEROBACTER CLOACOE Not detected Not detected COMPLEX (test code = 3947615) KLEBSIELLA OXYTOCA Not detected Not detected (test code = 7462258) KLEBSIELLA PNEUMONIAE Not detected Not detected (test code = 1650) PROTEUS (test code = Not detected Not detected 8149460) SERRATIA MARCESCENS Not detected Not detected (test code = 2946832) JAMAL ALBICANS (test Not detected Not detected code = 9359846) JAMAL GLABRATA (test Not detected Not detected code = 7954832) JAMAL KRUSEI (test Not detected Not detected code = 0596356) JAMAL PARAPSILOSIS Not detected Not detected (test code = 4731537) JAMAL TROPICALIS Not detected Not detected (test code = 8936451) ESCHERICHIA COLI (test Not detected Not detected code = 5014155) METHICILLIN-RESISTANCE Not detected Not detected GENE (test code = 4285698) VANCOMYCIN-RESISTANCE GENE (test code = 3791920) CARBAPENEM-RESISTANCE Not detected Not detected GENE (test code = 3308936) ENTEROCOCCUS-BEAKER Not detected Not detected (test code = 0729691) PSEUDOMONAS Not detected Not detected AERUGINOSA-BEAKER (test code = 3578841) Other bacteria and resistance markers not targeted by this PCR panel cannot be excluded; therefore clinical correlation and follow up of serology, culture results, and other molecular studies is required. The results are not intended to be used as the sole means for clinical diagnosis or patient management decisions. This sample was tested at the [facility] Molecular Diagnostics Laboratory using the [employer] Here Blood Culture ID Panel. It is FDA cleared and has been verified and approved by the [facility] Molecular Diagnostics [facility] for clinical use. This laboratory is CLIA-certified and College ofAmerican Pathologists (CAP)-accredited to perform high complexity testing.PHOSPHORUS 2019-12-16 15:18:00 Test Item Value Reference Range Interpretation Comments PHOSPHORUS (BEAKER) (test code = 4.2 mg/dL 2.3-4.7 604) Credit Collector ID - BSCOMPREHENSIVE METABOLIC [id number] 15:18:00 Test Item Value Reference Range Interpretation [...] 347) EGFR (BEAKER) (test 59 mL/min/1.73 ESTIMA ALEX GFR IS code = 1092) sq m NOT ACCURATE CREATININE CLEARANCE IN PREDICTING GLOMERULAR FILTRATION RATE . ESTIMATED GFR I S NOT APPLICABLE FOR DIALYSIS PATIEN TS. Credit Collector ID - [id number] 15:09:00 Test Item Value Reference Range Interpretation Comments AMMONIA (BEAKER) (test code = 348) 30 mol/L 18-72 Credit Collector ID - [id number] 14:58:00 Test Item Value Reference Range Interpretation [...] is 2.5-3.5 for patients wiht mechanical heart valves.[id number] 14:53:00 Test Item Value Reference Range Interpretation Comments MAGNESIUM (BEAKER) (test code = 1.6 mg/dL 1.6-2.6 627) Credit Collector ID - BSLACTIC ACID, [id number] 14:46:00 Test Item Value Reference Range Interpretation Comments LACTATE BLOOD ARTERIAL (2) 1.1 mmol/L 0.5-2.2 (BEAKER) (test code = 2874) Credit Collector ID - BSPROTHROMBIN [id number] 14:44:00 Test Item Value Reference Range Interpretation [...] is 2.5-3.5 for patients wiht mechanical heart valves.BLOOD GAS, [id number] 14:43:00 Test Item Value Reference Range Interpretation [...] code = 1819) 100.0 % SODIUM NA-STAT [id number] 14:43:00 Test Item Value Reference Range Interpretation Comments SODIUM (BEAKER) (test code = 381) 134 meq/L 135-148 L POTASSIUM-STAT [id number] 14:43:00 Test Item Value Reference Range Interpretation Comments POTASSIUM (BEAKER) (test code = 3.1 meq/L 3.6-5.5 L 379) GLUCOSE-STAT [id number] 14:43:00 Test Item Value Reference Range Interpretation Comments GLUCOSE RANDOM (BEAKER) (test code 126 mg/dL 70-110 H = 652) HGB/HCT (H&H) - STAT [id number] 14:43:00 Test Item Value Reference Range Interpretation [...] CELLS (BEAKER) (test code = 413) CALCIUM, [id number] 14:30:00 Test Item Value Reference Range Interpretation Comments CALCIUM IONIZED (BEAKER) (test 1.22 mmol/L 1.12-1.27 code = 698) PH, BLOOD (BEAKER) (test code = 7.44 1810) BLOOD GAS, [id number] 12:39:00 Test Item Value Reference Range Interpretation [...] code = 1819) 60.0 % SODIUM NA-STAT [id number] 12:39:00 Test Item Value Reference Range Interpretation Comments SODIUM (BEAKER) (test code = 381) 134 meq/L 135-148 L POTASSIUM-STAT [id number] 12:39:00 Test Item Value Reference Range Interpretation Comments POTASSIUM (BEAKER) (test code = 3.3 meq/L 3.6-5.5 L 379) GLUCOSE-STAT [id number] 12:39:00 Test Item Value Reference Range Interpretation Comments GLUCOSE RANDOM (BEAKER) (test code 116 mg/dL 70-110 H = 652) HGB/HCT (H&H) - STAT [id number] 12:39:00 Test Item Value Reference Range Interpretation Comments HEMOGLOBIN (BEAKER) (test code = 10.9 g/dL 13.0-16.8 L 410) HEMATOCRIT (BEAKER) (test code = 32.0 % 40.0-50.0 L 411) PROTHROMBIN [id number] 11:28:00 Test Item Value Reference Range Interpretation [...] is 2.5-3.5 for patients wiht mechanical heart valves.CALCIUM, [id number] 11:03:00 Test Item Value Reference Range Interpretation Comments CALCIUM IONIZED (BEAKER) (test 1.25 mmol/L 1.12-1.27 code = 698) PH, BLOOD (BEAKER) (test code = 7.48 1810) BLOOD GAS, [id number] 11:03:00 Test Item Value Reference Range Interpretation [...] code = 1819) 55.0 % SODIUM NA-STAT [id number] 11:03:00 Test Item Value Reference Range Interpretation Comments SODIUM (BEAKER) (test code = 381) 134 meq/L 135-148 L POTASSIUM-STAT [id number] 11:03:00 Test Item Value Reference Range Interpretation Comments POTASSIUM (BEAKER) (test code = 2.8 meq/L 3.6-5.5 L 379) GLUCOSE-STAT [id number] 11:03:00 Test Item Value Reference Range Interpretation Comments GLUCOSE RANDOM (BEAKER) (test code 115 mg/dL 70-110 H = 652) HGB/HCT (H&H) - STAT [id number] 11:03:00 Test Item Value Reference Range Interpretation Comments HEMOGLOBIN (BEAKER) (test code = 10.6 g/dL 13.0-16.8 L 410) HEMATOCRIT (BEAKER) (test code = 31.0 % 40.0-50.0 L 411) [id number] 08:20:00 Test Item Value Reference Range Interpretation Comments MAGNESIUM (BEAKER) (test code = 1.7 mg/dL 1.6-2.6 627) Credit Collector ID - GALAPBASIC METABOLIC [id number] 08:20:00 Test Item Value Reference Range Interpretation [...] 697) EGFR (BEAKER) (test 70 mL/min/1.73 ESTIMA ALEX GFR IS code = 1092) sq m NOT ACCURATE CREATININE CLEARANCE IN PREDICTING GLOMERULAR FILTRATION RATE . ESTIMATED GFR I S NOT APPLICABLE FOR DIALYSIS PATIEN TS. Credit Collector ID - GALAPSpecimen slightly ictericHEPATIC FUNCTION [id number] 08:20:00 Test Item Value Reference Range Interpretation [...] (test code = 18 U/L 6-55 347) Credit Collector ID - MATEOpecimereina slightly ictericPROTHROMBIN TIME/[id number] 08:00:00 Test Item Value Reference Range Interpretation [...] is 2.5-3.5 for patients wiht mechanical heart valves.POCT-GLUCOSE [id number] 21:37:00 Test Item Value Reference Range Interpretation Comments POC-GLUCOSE METER 179 mg/dL 70-110 H : TESTED A T [facility] 6720 (BEAKER) (test code = [facility] [employer] [facility], 1538) 55620: Credit Collector/Techni lars ID = [id number] for Catrachita Villanueva POCT-GLUCOSE [id number] 17:50:00 Test Item Value Reference Range Interpretation Comments POC-GLUCOSE METER 121 mg/dL 70-110 H : TESTED A T [facility] 6720 (BEAKER) (test code = [facility], 1538) 54611: Credit Collector/Techni lars ID = [id number] for LATISHA WELCH BLOOD GAS, [id number] 17:25:00 Test Item Value Reference Range Interpretation [...] = 1819) 32.0 % EEG AWAKE AND [id number] 16:41:00Reason for exam:->amsDATE OF TEST: 12/15/19 DATE OF REPORT: 12/15/19 ACC: [id number] Start: 1603 End: 1624 CPT Code: 11742 ICD-10: R56.9 HISTORY: 74 yo male with HTN, HLD, CAD, Obesity, AVN s/p dual ppm 2006 and cardiomyopathys/p BIV-ICD upgrade in 2014 who was transferred from [facility] for lead extraction. Patient was admitted to [facility] with change in mental status. Per son, he had positive blood clusters on that a dmission. He was re-admitted with changes in mental [...] More anteriorly, low voltage frontocentral beta was seen.There was excessive admixed theta and delta activity seen diffusely. State changes and reactivity were seen but no stage II sleep structures were seen. HV: Hyperventilation was not performed. PHOTIC STIMULATION: Flash stimulation was not performed IMPRESSION: Abnormal Awake and Drowsy EEG Continuous slow, generalized Background slow CLINICAL CORRELATION: This is an abnormal EEG supportive of a mild en cephalopathy. No areas of focal dysfunction or epileptiform discharges were seen. An EEG without epileptiform discharges does not exclude the possibility of epilepsy. If the clinical suspicion for epilepsy remains, consider additional EEG recordings. Primitivo Chowdary MD, MS Neurophysiology/Epilepsy Attending POCT- GLUCOSE [id number] 14:28:00 Test Item Value Reference Range Interpretation Comments POC-GLUCOSE METER 153 mg/dL 70-110 H : TESTED A T [facility] 6720 (BEAKER) (test code = [facility] [employer] [facility], 1538) 25931: Credit Collector/Techni lars ID = [id number] for LATISHA WELCH POCT-GLUCOSE [id number] 08:55:00 Test Item Value Reference Range Interpretation Comments POC-GLUCOSE METER 117 mg/dL 70-110 H : TESTED A T [facility] 6720 (BEAKER) (test code = [facility] [employer] [facility], 1538) 52857: Credit Collector/Techni lars ID = [id number] for LATISHA WELCH CBC W/PLT COUNT & AUTO [id number] 04:22:00 Test Item Value Reference Range Interpretation [...] (BEAKER) (test code = 2801) BASIC METABOLIC [id number] 03:32:00 Test Item Value Reference Range Interpretation [...] 697) EGFR (BEAKER) (test 69 mL/min/1.73 ESTIMA ALEX GFR IS code = 1092) sq m NOT ACCURATE CREATININE CLEARANCE IN PREDICTING GLOMERULAR FILTRATION RATE . ESTIMATED GFR I S NOT APPLICABLE FOR DIALYSIS PATIEN TS. Credit Collector ID - DBSpecimen slightly ictericLIPID [id number] 03:32:00 Test Item Value Reference Range Interpretation Comments TRIGLYCERIDES (BEAKER) (test code = 126 mg/dL 540) CHOLESTEROL (BEAKER) (test code = 90 mg/dL 631) HDL CHOLESTEROL (BEAKER) (test code 6 mg/dL = 976) LDL CHOLESTEROL CALCULATED (BEAKER) 59 mg/dL (test code = 633) Triglyceride Reference Range: Low Risk <150 Borderline 150-199 High Risk 200- 499 Very High Risk >=500Cholesterol Reference Range: Low Risk <200 Borderline 200-239 High Risk >240HDL Cholesterol Reference Range: Low Risk >=60 High Risk <40LDL Cholesterol Reference Range: Optimal <100 Near Optimal 100-129 Borderline 130-159 High 160-189 Very High >=190 Credit Collector ID - DBSpecimen slightly ictericHEPATIC FUNCTION [id number] 03:32:00 Test Item Value Reference Range Interpretation [...] (test code = 22 U/L 6-55 347) Credit Collector ID - DBSpecimen slightly ictericPROTHROMBIN TIME/[id number] 03:09:00 Test Item Value Reference Range Interpretation [...] is 2.5-3.5 for patients wiht mechanical heart valves.CHEM [id number] 11:51:00 Test Item Value Reference Range Interpretation Comments Glucose Lvl (test code = Glucose Lvl) 109 70-99 [facility]2020-02-17 11:51:00 Test Item Value Reference Range Interpretation Comments BUN (test code = BUN) 36 7-22 [facility]2020-02-17 11:51:00 Test Item Value Reference Range Interpretation Comments Creatinine Lvl (test code = Creatinine 1.20 0.50-1.40 Lvl) [facility]2020-02-17 11:51:00 Test Item Value Reference Range Interpretation Comments Sodium Lvl (test code = Sodium Lvl) 134 135-145 [facility]2020-02-17 11:51:00 Test Item Value Reference Range Interpretation Comments Potassium Lvl (test code = Potassium 3.2 3.5-5.1 Lvl) [facility]2020-02-17 11:51:00 Test Item Value Reference Range Interpretation Comments Chloride Lvl (test code = Chloride Lvl) 100 95-109 [facility]2020-02-17 11:51:00 Test Item Value Reference Range Interpretation Comments CO2 (test code = CO2) 25 24-32 [facility]2020-02-17 11:51:00 Test Item Value Reference Range Interpretation Comments Calcium Lvl (test code = Calcium Lvl) 9.6 8.5-10.5 [facility]2020-02-17 11:51:00 Test Item Value Reference Range Interpretation Comments AGAP (test code = AGAP) 12.2 10.0-20.0 [facility]2020-02-17 11:51:00 Test Item Value Reference Range Interpretation Comments eGFR (test code = eGFR) 58 [facility]2020-02-17 11:51:00 Test Item Value Reference Range Interpretation Comments Magnesium Lvl (test code = Magnesium 1.9 1.8-2.4 Lvl) [id number] 11:51:00 Test Item Value Reference Range Interpretation Comments WBC (test code = WBC) 12.2 3.7-10.4 [facility]viewIutnutcECFURPSVGG7074-68-93 11:51:00 Test Item Value Reference Range Interpretation Comments RBC (test code = RBC) 4.03 4.70-6.10 [facility]viewJiycgjwIGRZTGBWMX0669-77-15 11:51:00 Test Item Value Reference Range Interpretation Comments Hgb (test code = Hgb) 11.9 14.0-18.0 [facility]viewHpgyvwlILHHZAATZE3449-67-04 11:51:00 Test Item Value Reference Range Interpretation Comments Hct (test code = Hct) 35.8 42.0-54.0 [facility]viewKnyndvgAPIWVZMXYU1382-37-05 11:51:00 Test Item Value Reference Range Interpretation Comments MCV (test code = MCV) 89.0 80.0-94.0 [place] 675510-02-17 11:51:00 Test Item Value Reference Range Interpretation Comments MCH (test code = MCH) 29.6 pg 27.0-31.0 [facility]viewAsptdudVXKUFUXHYX0014-16-64 11:51:00 Test Item Value Reference Range Interpretation Comments MCHC (test code = MCHC) 33.2 32.0-36.0 [facility]viewEgknaawUJOVKPIDBZ4772-59-74 11:51:00 Test Item Value Reference Range Interpretation Comments RDW (test code = RDW) 14.9 11.5-14.5 [place] [address]-02-17 11:51:00 Test Item Value Reference Range Interpretation Comments Platelet (test code = Platelet) 105 133-450 [facility]viewHzagcipOVHRXXOCUB2356-85-94 11:51:00 Test Item Value Reference Range Interpretation Comments MPV (test code = MPV) 9.7 7.4-10.4 [place] 675510-02-17 11:51:00 Test Item Value Reference Range Interpretation Comments Segs (test code = Segs) 86.4 45.0-75.0 [place] [address]-02-17 11:51:00 Test Item Value Reference Range Interpretation Comments Lymphocytes (test code = Lymphocytes) 7.3 20.0-40.0 [place] [address]-02-17 11:51:00 Test Item Value Reference Range Interpretation Comments Monocytes (test code = Monocytes) 5.1 2.0-12.0 [place] 675510-02-17 11:51:00 Test Item Value Reference Range Interpretation Comments Eosinophils (test code = 0.2 See_Comment [A utomated message] The Eosinophils) system which ge nerated this result tra nsmitted reference range : <=4.0. The reference r brian was not used to int erpret this result as normal/abnormal . [facility]viewTyoemanHYQWRHSPGQ0331-03-98 11:51:00 Test Item Value Reference Range Interpretation Comments Basophils (test code = 1.0 See_Comment [Aut omated message] The Basophils) system which ge nerated this result tra nsmitted reference range : <=1.0. The reference r brian was not used to int erpret this result as normal/abnormal . [facility]viewLenfindOLXTMJSVDZ8669-71-90 11:51:00 Test Item Value Reference Range Interpretation Comments Neutrophils # (test code = Neutrophils 10.5 1.5-8.1 #) [facility]viewBmakoajISLMSPGSCI0810-38-25 11:51:00 Test Item Value Reference Range Interpretation Comments Lymphocytes # (test code = Lymphocytes 0.9 1.0-5.5 #) [facility]viewHoixhfmZTIUYCRSPA5019-63-70 11:51:00 Test Item Value Reference Range Interpretation Comments Monocytes # (test code 0.6 See_Comment [Aut omated message] The = Monocytes #) system which generated this result tra nsmitted reference range : <=0.8. The reference r brian was not used to int erpret this result as normal/abnormal . [facility]viewZjnjgjsZFXPIKZPEC4013-44-77 11:51:00 Test Item Value Reference Range Interpretation Comments Basophils # (test code 0.1 See_Comment [Aut omated message] The = Basophils #) system which generated this result tra nsmitted reference range : <=0.2. The reference r brian was not used to int erpret this result as normal/abnormal . [facility] [id number] 11:51:00 Test Item Value Reference Range Interpretation Comments Hgb A1C (test code = Hgb A1C) 5.4 [facility] [id number] 11:51:00 Test Item Value Reference Range Interpretation Comments Glucose Lvl (test code = Glucose Lvl) 109 70-99 [facility] [id number] 11:51:00 Test Item Value Reference Range Interpretation Comments BUN (test code = BUN) 36 7-22 [facility] [id number] 11:51:00 Test Item Value Reference Range Interpretation Comments Creatinine Lvl (test code = Creatinine 1.20 0.50-1.40 Lvl) [place] 784940-02-17 11:51:00 Test Item Value Reference Range Interpretation Comments Sodium Lvl (test code = Sodium Lvl) 134 135-145 [place] 784940-02-17 11:51:00 Test Item Value Reference Range Interpretation Comments Potassium Lvl (test code = Potassium 3.2 3.5-5.1 Lvl) [place] 784940-02-17 11:51:00 Test Item Value Reference Range Interpretation Comments Chloride Lvl (test code = Chloride Lvl) 100 95-109 [place] 784940-02-17 11:51:00 Test Item Value Reference Range Interpretation Comments CO2 (test code = CO2) 25 24-32 [place] [address]-02-17 11:51:00 Test Item Value Reference Range Interpretation Comments Calcium Lvl (test code = Calcium Lvl) 9.6 8.5-10.5 [place] 784940-02-17 11:51:00 Test Item Value Reference Range Interpretation Comments AGAP (test code = AGAP) 12.2 10.0-20.0 [place] 784940-02-17 11:51:00 Test Item Value Reference Range Interpretation Comments eGFR (test code = eGFR) 58 [facility]2020-02-17 11:51:00 Test Item Value Reference Range Interpretation Comments Magnesium Lvl (test code = Magnesium 1.9 1.8-2.4 Lvl) [place] 675510-02-17 11:51:00 Test Item Value Reference Range Interpretation Comments WBC (test code = WBC) 12.2 3.7-10.4 [place] [address]-02-17 11:51:00 Test Item Value Reference Range Interpretation Comments RBC (test code = RBC) 4.03 4.70-6.10 [place] [address]-02-17 11:51:00 Test Item Value Reference Range Interpretation Comments Hgb (test code = Hgb) 11.9 14.0-18.0 [place] [address]-02-17 11:51:00 Test Item Value Reference Range Interpretation Comments Hct (test code = Hct) 35.8 42.0-54.0 [place] [address]-02-17 11:51:00 Test Item Value Reference Range Interpretation Comments MCV (test code = MCV) 89.0 80.0-94.0 [place] [address]-02-17 11:51:00 Test Item Value Reference Range Interpretation Comments MCH (test code = MCH) 29.6 pg 27.0-31.0 [place] [address]-02-17 11:51:00 Test Item Value Reference Range Interpretation Comments MCHC (test code = MCHC) 33.2 32.0-36.0 [place] [address]-02-17 11:51:00 Test Item Value Reference Range Interpretation Comments RDW (test code = RDW) 14.9 11.5-14.5 [place] [address]-02-17 11:51:00 Test Item Value Reference Range Interpretation Comments Platelet (test code = Platelet) 105 133-450 [place] [address]-02-17 11:51:00 Test Item Value Reference Range Interpretation Comments MPV (test code = MPV) 9.7 7.4-10.4 [place] [address]-02-17 11:51:00 Test Item Value Reference Range Interpretation Comments Segs (test code = Segs) 86.4 45.0-75.0 [place] [address]-02-17 11:51:00 Test Item Value Reference Range Interpretation Comments Lymphocytes (test code = Lymphocytes) 7.3 20.0-40.0 [place] [address]-02-17 11:51:00 Test Item Value Reference Range Interpretation Comments Monocytes (test code = Monocytes) 5.1 2.0-12.0 [place] [address]-02-17 11:51:00 Test Item Value Reference Range Interpretation Comments Eosinophils (test code = 0.2 See_Comment [A utomated message] The Eosinophils) system which ge nerated this result tra nsmitted reference range : <=4.0. The reference r brian was not used to int erpret this result as normal/abnormal . [place] [address]-02-17 11:51:00 Test Item Value Reference Range Interpretation Comments Basophils (test code = 1.0 See_Comment [Aut omated message] The Basophils) system which ge nerated this result tra nsmitted reference range : <=1.0. The reference r brian was not used to int erpret this result as normal/abnormal . [facility]JastmobXOPTAEBBKA4015-91-08 11:51:00 Test Item Value Reference Range Interpretation Comments Neutrophils # (test code = Neutrophils 10.5 1.5-8.1 #) [facility] CenterDweqncuELCQBGXDHF2991-76-15 11:51:00 Test Item Value Reference Range Interpretation Comments Lymphocytes # (test code = Lymphocytes 0.9 1.0-5.5 #) [facility] CenterDbfrdhcEPHUJNJWUF8917-55-44 11:51:00 Test Item Value Reference Range Interpretation Comments Monocytes # (test code 0.6 See_Comment [Aut omated message] The = Monocytes #) system which generated this result tra nsmitted reference range : <=0.8. The reference r brian was not used to int erpret this result as normal/abnormal . [facility]viewAnbhcnyZDTOWWRJJM6687-02-16 11:51:00 Test Item Value Reference Range Interpretation Comments Basophils # (test code 0.1 See_Comment [Aut omated message] The = Basophils #) system which generated this result tra nsmitted reference range : <=0.2. The reference r brian was not used to int erpret this result as normal/abnormal . [facility] [id number] 11:51:00 Test Item Value Reference Range Interpretation Comments Hgb A1C (test code = Hgb A1C) 5.4 [facility] [id number] 21:50:00 Test Item Value Reference Range Interpretation Comments Glucose Lvl (test code = Glucose Lvl) 120 70-99 [facility] [id number] 21:50:00 Test Item Value Reference Range Interpretation Comments BUN (test code = BUN) 37 7-22 [facility] [id number] 21:50:00 Test Item Value Reference Range Interpretation Comments Creatinine Lvl (test code = Creatinine 1.20 0.50-1.40 Lvl) [facility] [id number] 21:50:00 Test Item Value Reference Range Interpretation Comments Sodium Lvl (test code = Sodium Lvl) 135 135-145 [facility] [id number] 21:50:00 Test Item Value Reference Range Interpretation Comments Potassium Lvl (test code = Potassium 2.7 3.5-5.1 Lvl) [facility]2020-02-16 21:50:00 Test Item Value Reference Range Interpretation Comments Chloride Lvl (test code = Chloride Lvl) 100 95-109 [place] 784940-02-16 21:50:00 Test Item Value Reference Range Interpretation Comments CO2 (test code = CO2) 31 24-32 [place] [address]-02-16 21:50:00 Test Item Value Reference Range Interpretation Comments AGAP (test code = AGAP) 6.7 10.0-20.0 [place] [address]-02-16 21:50:00 Test Item Value Reference Range Interpretation Comments Calcium Lvl (test code = Calcium Lvl) 9.4 8.5-10.5 [place] 784940-02-16 21:50:00 Test Item Value Reference Range Interpretation Comments eGFR (test code = eGFR) 58 [place] 784940-02-16 21:50:00 Test Item Value Reference Range Interpretation Comments Ammonia (test code = Ammonia) 14.0 [place] [address]-02-16 21:50:00 Test Item Value Reference Range Interpretation Comments WBC (test code = WBC) 11.3 3.7-10.4 [place] [address]-02-16 21:50:00 Test Item Value Reference Range Interpretation Comments RBC (test code = RBC) 4.04 4.70-6.10 [place] [address]-02-16 21:50:00 Test Item Value Reference Range Interpretation Comments Hgb (test code = Hgb) 11.9 14.0-18.0 [place] [address]-02-16 21:50:00 Test Item Value Reference Range Interpretation Comments Hct (test code = Hct) 35.9 42.0-54.0 [place] [address]-02-16 21:50:00 Test Item Value Reference Range Interpretation Comments MCV (test code = MCV) 88.8 80.0-94.0 [place] [address]-02-16 21:50:00 Test Item Value Reference Range Interpretation Comments MCH (test code = MCH) 29.5 pg 27.0-31.0 [place] [address]-02-16 21:50:00 Test Item Value Reference Range Interpretation Comments MCHC (test code = MCHC) 33.2 32.0-36.0 [facility]viewGnpsayqQZIRCHXQQS7677-09-68 21:50:00 Test Item Value Reference Range Interpretation Comments RDW (test code = RDW) 14.7 11.5-14.5 [place] [address]-02-16 21:50:00 Test Item Value Reference Range Interpretation Comments Platelet (test code = Platelet) 123 133-450 [facility]viewTcrnuutMPEPTGQGWG9005-70-54 21:50:00 Test Item Value Reference Range Interpretation Comments MPV (test code = MPV) 9.8 7.4-10.4 [place] 675510-02-16 21:50:00 Test Item Value Reference Range Interpretation Comments RBC Morph (test code = Normal (12/12/19 3:50 RBC Morph) PM) [place] 675510-02-16 21:50:00 Test Item Value Reference Range Interpretation Comments Plt Morph (test code = Normal (12/12/19 3:50 Plt Morph) PM) [facility]viewCivyonuDFCXDVPPXA0158-74-21 21:50:00 Test Item Value Reference Range Interpretation Comments Segs (test code = Segs) 84.7 45.0-75.0 [place] [address]-02-16 21:50:00 Test Item Value Reference Range Interpretation Comments Lymphocytes (test code = Lymphocytes) 7.4 20.0-40.0 [place] [address]-02-16 21:50:00 Test Item Value Reference Range Interpretation Comments Monocytes (test code = Monocytes) 7.6 2.0-12.0 [place] [address]-02-16 21:50:00 Test Item Value Reference Range Interpretation Comments Eosinophils (test code = 0.3 See_Comment [A utomated message] The Eosinophils) system which ge nerated this result tra nsmitted reference range : <=4.0. The reference r brian was not used to int erpret this result as normal/abnormal . [place] 675510-02-16 21:50:00 Test Item Value Reference Range Interpretation Comments Basophils (test code = 0.0 See_Comment [Aut omated message] The Basophils) system which ge nerated this result tra nsmitted reference range : <=1.0. The reference r brian was not used to int erpret this result as normal/abnormal . [facility]viewLwbbtneEHIOVULHFZ9489-94-73 21:50:00 Test Item Value Reference Range Interpretation Comments Neutrophils # (test code = Neutrophils 9.6 1.5-8.1 #) [facility]viewNwprwmkGKSFBFPGKC5698-24-38 21:50:00 Test Item Value Reference Range Interpretation Comments Lymphocytes # (test code = Lymphocytes 0.8 1.0-5.5 #) [place] 675510-02-16 21:50:00 Test Item Value Reference Range Interpretation Comments Monocytes # (test code 0.9 See_Comment [Aut omated message] The = Monocytes #) system which generated this result tra nsmitted reference range : <=0.8. The reference r brian was not used to int erpret this result as normal/abnormal . [facility]viewBfokqzhIQPHSODTOF1208-06-25 21:50:00 Test Item Value Reference Range Interpretation Comments Eosinophils # (test code 0.0 See_Comment [A utomated message] The = Eosinophils #) system whic h generated this result tra nsmitted reference range : <=0.5. The reference r brian was not used to int erpret this result as normal/abnormal . [facility]viewIpjqyxkKHAOSZHUAO8180-04-04 21:50:00 Test Item Value Reference Range Interpretation Comments Basophils # (test code 0.0 See_Comment [Aut omated message] The = Basophils #) system which generated this result tra nsmitted reference range : <=0.2. The reference r brian was not used to int erpret this result as normal/abnormal . [facility]2020-02-16 21:50:00 Test Item Value Reference Range Interpretation Comments Glucose Lvl (test code = Glucose Lvl) 120 70-99 [place] 784940-02-16 21:50:00 Test Item Value Reference Range Interpretation Comments BUN (test code = BUN) 37 7-22 [place] 784940-02-16 21:50:00 Test Item Value Reference Range Interpretation Comments Creatinine Lvl (test code = Creatinine 1.20 0.50-1.40 Lvl) [place] 784940-02-16 21:50:00 Test Item Value Reference Range Interpretation Comments Sodium Lvl (test code = Sodium Lvl) 135 135-145 [place] 784940-02-16 21:50:00 Test Item Value Reference Range Interpretation Comments Potassium Lvl (test code = Potassium 2.7 3.5-5.1 Lvl) [facility]2020-02-16 21:50:00 Test Item Value Reference Range Interpretation Comments Chloride Lvl (test code = Chloride Lvl) 100 95-109 [facility]2020-02-16 21:50:00 Test Item Value Reference Range Interpretation Comments CO2 (test code = CO2) 31 24-32 [place] 784940-02-16 21:50:00 Test Item Value Reference Range Interpretation Comments AGAP (test code = AGAP) 6.7 10.0-20.0 [place] 784940-02-16 21:50:00 Test Item Value Reference Range Interpretation Comments Calcium Lvl (test code = Calcium Lvl) 9.4 8.5-10.5 [facility]2020-02-16 21:50:00 Test Item Value Reference Range Interpretation Comments eGFR (test code = eGFR) 58 [place] 784940-02-16 21:50:00 Test Item Value Reference Range Interpretation Comments Ammonia (test code = Ammonia) 14.0 [facility]woodIabdwidNJTVTJPNKB0149-28-13 21:50:00 Test Item Value Reference Range Interpretation Comments WBC (test code = WBC) 11.3 3.7-10.4 [facility]viewVmjyguyMPEEVCLDGI4132-24-54 21:50:00 Test Item Value Reference Range Interpretation Comments RBC (test code = RBC) 4.04 4.70-6.10 [facility]viewWxpubgbYWFVTQUOKK4345-73-91 21:50:00 Test Item Value Reference Range Interpretation Comments Hgb (test code = Hgb) 11.9 14.0-18.0 [place] [address]-02-16 21:50:00 Test Item Value Reference Range Interpretation Comments Hct (test code = Hct) 35.9 42.0-54.0 [place] [address]-02-16 21:50:00 Test Item Value Reference Range Interpretation Comments MCV (test code = MCV) 88.8 80.0-94.0 [place] [address]-02-16 21:50:00 Test Item Value Reference Range Interpretation Comments MCH (test code = MCH) 29.5 pg 27.0-31.0 [place] [address]-02-16 21:50:00 Test Item Value Reference Range Interpretation Comments MCHC (test code = MCHC) 33.2 32.0-36.0 [place] [address]-02-16 21:50:00 Test Item Value Reference Range Interpretation Comments RDW (test code = RDW) 14.7 11.5-14.5 [place] [id number] 21:50:00 Test Item Value Reference Range Interpretation Comments Platelet (test code = Platelet) 123 133-450 [id number] 21:50:00 Test Item Value Reference Range Interpretation Comments MPV (test code = MPV) 9.8 7.4-10.4 [place] [address]-02-16 21:50:00 Test Item Value Reference Range Interpretation Comments RBC Morph (test code = Normal (12/12/19 3:50 RBC Morph) PM) [id number] 21:50:00 Test Item Value Reference Range Interpretation Comments Plt Morph (test code = Normal (12/12/19 3:50 Plt Morph) PM) [facility]vi[id number] 21:50:00 Test Item Value Reference Range Interpretation Comments Segs (test code = Segs) 84.7 45.0-75.0 [place] [address]-02-16 21:50:00 Test Item Value Reference Range Interpretation Comments Lymphocytes (test code = Lymphocytes) 7.4 20.0-40.0 [place] [address]-02-16 21:50:00 Test Item Value Reference Range Interpretation Comments Monocytes (test code = Monocytes) 7.6 2.0-12.0 [place] [address]-02-16 21:50:00 Test Item Value Reference Range Interpretation Comments Eosinophils (test code = 0.3 See_Comment [A utomated message] The Eosinophils) system which ge nerated this result tra nsmitted reference range : <=4.0. The reference r brian was not used to int erpret this result as normal/abnormal . [facility]vi[id number] 21:50:00 Test Item Value Reference Range Interpretation Comments Basophils (test code = 0.0 See_Comment [Aut omated message] The Basophils) system which ge nerated this result tra nsmitted reference range : <=1.0. The reference r brian was not used to int erpret this result as normal/abnormal . [facility]viewBiexpnxZEIGALTLLI4586-20-84 21:50:00 Test Item Value Reference Range Interpretation Comments Neutrophils # (test code = Neutrophils 9.6 1.5-8.1 #) [facility]viewMapzmbvCGJKYAVSXT6805-41-48 21:50:00 Test Item Value Reference Range Interpretation Comments Lymphocytes # (test code = Lymphocytes 0.8 1.0-5.5 #) [facility]viewZsjcwzuIBRMINVRIM4969-61-76 21:50:00 Test Item Value Reference Range Interpretation Comments Monocytes # (test code 0.9 See_Comment [Aut omated message] The = Monocytes #) system which generated this result tra nsmitted reference range : <=0.8. The reference r brian was not used to int erpret this result as normal/abnormal . [facility]vi[id number] 21:50:00 Test Item Value Reference Range Interpretation Comments Eosinophils # (test code 0.0 See_Comment [A utomated message] The = Eosinophils #) system whic h generated this result tra nsmitted reference range : <=0.5. The reference r brian was not used to int erpret this result as normal/abnormal . [facility]viewCqyoqpaBLALSEZZJG0748-82-17 21:50:00 Test Item Value Reference Range Interpretation Comments Basophils # (test code 0.0 See_Comment [Aut omated message] The = Basophils #) system which generated this result tra nsmitted reference range : <=0.2. The reference r brian was not used to int erpret this result as normal/abnormal . [facility]wood[facility]: [id number] 13:54:26 Test Item Value Reference Range Interpretation Comments Culture: Urine (test code = No Growth Culture: Urine) [facility]wood[facility]: [id number] 13:54:26 Test Item Value Reference Range Interpretation Comments Culture: Urine (test code = No Growth Culture: Urine) [facility] [id number] 02:55:00 Test Item Value Reference Range Interpretation Comments UA Turbidity (test code Slight *ABN*(12/11/19 = UA Turbidity) 8:55 PM) [facility] AND [id number] 02:55:00 Test Item Value Reference Range Interpretation Comments UA Spec Grav (test code = UA Spec 1.010 1 Grav) [facility] AND [id number] 02:55:00 Test Item Value Reference Range Interpretation Comments UA pH (test code = UA pH) 5.0 1 5.0-8.0 [facility] [id number] 02:55:00 Test Item Value Reference Range Interpretation Comments UA Protein (test code = UA Negative mg/dL Protein) [facility] AND [id number] 02:55:00 Test Item Value Reference Range Interpretation Comments UA Glucose (test code = UA Negative mg/dL Glucose) [facility] AND [id number] 02:55:00 Test Item Value Reference Range Interpretation Comments UA Ketones (test code = UA Trace mg/dL Ketones) [facility] AND [id number] 02:55:00 Test Item Value Reference Range Interpretation Comments UA Bili (test code = Negative *NA*(12/11/19 UA Bili) 8:55 PM) [facility] AND [id number] 02:55:00 Test Item Value Reference Range Interpretation Comments UA Blood (test code = Large *ABN*(12/11/19 UA Blood) 8:55 PM) [facility] AND [id number] 02:55:00 Test Item Value Reference Range Interpretation Comments UA Urobilinogen (test code = UA 4.0 0.1-1.0 Urobilinogen) [facility] AND [id number] 02:55:00 Test Item Value Reference Range Interpretation Comments UA Nitrite (test code Negative (12/11/19 8:55 = UA Nitrite) PM) [facility] AND [id number] 02:55:00 Test Item Value Reference Range Interpretation Comments UA Leuk Est (test Negative (12/11/19 8:55 code = UA Leuk Est) PM) [facility] AND [id number] 02:55:00 Test Item Value Reference Range Interpretation Comments UA WBC (test code = 14 See_Comment [Automa alex message] The UA WBC) system which ge nerated this result transmit alex reference range : <=5. The reference range was not used to interpr et this result as karen l/abnormal. [facility] [id number] 02:55:00 Test Item Value Reference Range Interpretation Comments UA RBC (test code = no gt See_Comment [Automa laex message] The UA RBC) system which ge nerated this result transmit alex reference range : <=2. The reference range was not used to interpr et this result as karen l/abnormal. [facility] [id number] 02:55:00 Test Item Value Reference Range Interpretation Comments UA Bacteria (test code = UA Occasional /HPF Bacteria) [facility] [id number] 02:55:00 Test Item Value Reference Range Interpretation Comments UA Mucus (test code = UA Mucus) Few /LPF [facility] [id number] 02:55:00 Test Item Value Reference Range Interpretation Comments UA Hyal Cast (test 1 See_Comment [Automat ed message] The code = UA Hyal Cast) system which generated this result transmit alex reference range : <=2. The reference range was not used to interpr et this result as karen l/abnormal. [facility] [id number] 02:55:00 Test Item Value Reference Range Interpretation Comments UA Sq Epi (test code = UA Sq Epi) None Seen [facility] [id number] 02:55:00 Test Item Value Reference Range Interpretation Comments UA Color (test code = UA Color) Yellow [facility] [id number] 02:55:00 Test Item Value Reference Range Interpretation Comments UA Turbidity (test code Slight *ABN*(12/11/19 = UA Turbidity) 8:55 PM) [facility] [id number] 02:55:00 Test Item Value Reference Range Interpretation Comments UA Spec Grav (test code = UA Spec 1.010 1 Grav) [facility] [id number] 02:55:00 Test Item Value Reference Range Interpretation Comments UA pH (test code = UA pH) 5.0 1 5.0-8.0 [facility] [id number] 02:55:00 Test Item Value Reference Range Interpretation Comments UA Protein (test code = UA Negative mg/dL Protein) [facility] [id number] 02:55:00 Test Item Value Reference Range Interpretation Comments UA Glucose (test code = UA Negative mg/dL Glucose) [facility] [id number] 02:55:00 Test Item Value Reference Range Interpretation Comments UA Ketones (test code = UA Trace mg/dL Ketones) [facility] [id number] 02:55:00 Test Item Value Reference Range Interpretation Comments UA Bili (test code = Negative *NA*(12/11/19 UA Bili) 8:55 PM) [facility] [id number] 02:55:00 Test Item Value Reference Range Interpretation Comments UA Blood (test code = Large *ABN*(12/11/19 UA Blood) 8:55 PM) [facility] AND [id number] 02:55:00 Test Item Value Reference Range Interpretation Comments UA Urobilinogen (test code = UA 4.0 0.1-1.0 Urobilinogen) [facility] [id number] 02:55:00 Test Item Value Reference Range Interpretation Comments UA Nitrite (test code Negative (12/11/19 8:55 = UA Nitrite) PM) [facility] [id number] 02:55:00 Test Item Value Reference Range Interpretation Comments UA Leuk Est (test Negative (12/11/19 8:55 code = UA Leuk Est) PM) [facility] [id number] 02:55:00 Test Item Value Reference Range Interpretation Comments UA WBC (test code = 14 See_Comment [Automa alex message] The UA WBC) system which ge nerated this result transmit alex reference range : <=5. The reference range was not used to interpr et this result as karen l/abnormal. [facility] [id number] 02:55:00 Test Item Value Reference Range Interpretation Comments UA RBC (test code = no gt See_Comment [Automa alex message] The UA RBC) system which ge nerated this result transmit alex reference range : <=2. The reference range was not used to interpr et this result as karen l/abnormal. [facility] [id number] 02:55:00 Test Item Value Reference Range Interpretation Comments UA Bacteria (test code = UA Occasional /HPF Bacteria) [facility] [id number] 02:55:00 Test Item Value Reference Range Interpretation Comments UA Mucus (test code = UA Mucus) Few /LPF [facility] [id number] 02:55:00 Test Item Value Reference Range Interpretation Comments UA Hyal Cast (test 1 See_Comment [Automat ed message] The code = UA Hyal Cast) system which generated this result transmit alex reference range : <=2. The reference range was not used to interpr et this result as karen l/abnormal. [facility] [id number] 02:55:00 Test Item Value Reference Range Interpretation Comments UA Sq Epi (test code = UA Sq Epi) None Seen [facility] [id number] 02:55:00 Test Item Value Reference Range Interpretation Comments UA Color (test code = UA Color) Yellow [facility] [employer] [id number] 10:14:00 Test Item Value Reference Range Interpretation Comments CO2 (test code = CO2) 21 24-32 [facility] [employer] [id number] 10:14:00 Test Item Value Reference Range Interpretation Comments Calcium Lvl (test code = Calcium Lvl) 9.8 8.5-10.5 [facility] [employer] [id number] 10:14:00 Test Item Value Reference Range Interpretation Comments Total Protein (test code = Total 5.8 6.4-8.4 Protein) [facility] [employer] [id number] 10:14:00 Test Item Value Reference Range Interpretation Comments Albumin Lvl (test code = Albumin Lvl) 2.3 3.5-5.0 [facility] [employer] [id number] 10:14:00 Test Item Value Reference Range Interpretation Comments ALT (test code = ALT) 34 See_Comment [Auto mated message] The system which ge nerated this result transmit alex reference range : <=65. The reference range was not used to interpr et this result as karen l/abnormal. [facility] [employer] [id number] 10:14:00 Test Item Value Reference Range Interpretation Comments AST (test code = AST) 50 See_Comment [Auto mated message] The system which ge nerated this result transmit alex reference range : <=37. The reference range was not used to interpr et this result as karen l/abnormal. [facility] [employer] [id number] 10:14:00 Test Item Value Reference Range Interpretation Comments Alk Phos (test code = Alk Phos) 73 39-136 [facility]2020-02-15 10:14:00 Test Item Value Reference Range Interpretation Comments Bili Total (test code = Bili Total) 1.2 0.2-1.3 [place] [id number] 10:14:00 Test Item Value Reference Range Interpretation Comments AGAP (test code = AGAP) 13.6 10.0-20.0 [facility]2020-02-15 10:14:00 Test Item Value Reference Range Interpretation Comments B/C Ratio (test code = B/C Ratio) 29 1 6-25 [facility]2020-02-15 10:14:00 Test Item Value Reference Range Interpretation Comments Globulin (test code = Globulin) 3.5 2.7-4.2 [facility]2020-02-15 10:14:00 Test Item Value Reference Range Interpretation Comments A/G Ratio (test code = A/G Ratio) 0.7 1 0.7-1.6 [facility]2020-02-15 10:14:00 Test Item Value Reference Range Interpretation Comments eGFR (test code = eGFR) 73 [id number] 10:14:00 Test Item Value Reference Range Interpretation Comments WBC (test code = WBC) 7.8 3.7-10.4 [id number] 10:14:00 Test Item Value Reference Range Interpretation Comments RBC (test code = RBC) 3.88 4.70-6.10 [place] [id number] 10:14:00 Test Item Value Reference Range Interpretation Comments Hgb (test code = Hgb) 11.6 14.0-18.0 [place] [address]-02-15 10:14:00 Test Item Value Reference Range Interpretation Comments Hct (test code = Hct) 35.3 42.0-54.0 [facility]viewXrptgkaGMOCXXTLGG3826-21-03 10:14:00 Test Item Value Reference Range Interpretation Comments MCV (test code = MCV) 91.0 80.0-94.0 [place] [address]-02-15 10:14:00 Test Item Value Reference Range Interpretation Comments MCH (test code = MCH) 30.0 pg 27.0-31.0 [id number] 10:14:00 Test Item Value Reference Range Interpretation Comments MCHC (test code = MCHC) 33.0 32.0-36.0 [facility]viewDrboqusXDXEFHXCFO6622-03-26 10:14:00 Test Item Value Reference Range Interpretation Comments RDW (test code = RDW) 14.7 11.5-14.5 [id number] 10:14:00 Test Item Value Reference Range Interpretation Comments Platelet (test code = Platelet) 117 133-450 [id number] 10:14:00 Test Item Value Reference Range Interpretation Comments MPV (test code = MPV) 10.1 7.4-10.4 [facility]viewAuhhrpkHMITKTKOWR5144-73-97 10:14:00 Test Item Value Reference Range Interpretation Comments Segs (test code = Segs) 81.9 45.0-75.0 [facility]viewAfxthrwWMEDXZUCJY0608-82-70 10:14:00 Test Item Value Reference Range Interpretation Comments Lymphocytes (test code = Lymphocytes) 10.8 20.0-40.0 [facility]viewPzpppplRZDWSBXXQV4802-27-17 10:14:00 Test Item Value Reference Range Interpretation Comments Monocytes (test code = Monocytes) 6.9 2.0-12.0 [facility]viewFdzeqicXLXFCBDRCH6105-16-16 10:14:00 Test Item Value Reference Range Interpretation Comments Eosinophils (test code = 0.2 See_Comment [A utomated message] The Eosinophils) system which ge nerated this result tra nsmitted reference range : <=4.0. The reference r brian was not used to int erpret this result as normal/abnormal . [facility]viewAvzkublTSURTFTVAO3383-64-55 10:14:00 Test Item Value Reference Range Interpretation Comments Basophils (test code = 0.2 See_Comment [Aut omated message] The Basophils) system which ge nerated this result tra nsmitted reference range : <=1.0. The reference r brian was not used to int erpret this result as normal/abnormal . [facility]viewXmzvccbUYLISYDQVP6310-48-85 10:14:00 Test Item Value Reference Range Interpretation Comments Neutrophils # (test code = Neutrophils 6.4 1.5-8.1 #) [facility]vi[id number] 10:14:00 Test Item Value Reference Range Interpretation Comments Lymphocytes # (test code = Lymphocytes 0.8 1.0-5.5 #) [facility]viewZkdpcrlSDRBDEABVD6454-02-10 10:14:00 Test Item Value Reference Range Interpretation Comments Monocytes # (test code 0.5 See_Comment [Aut omated message] The = Monocytes #) system which generated this result tra nsmitted reference range : <=0.8. The reference r brian was not used to int erpret this result as normal/abnormal . [id number] 10:14:00 Test Item Value Reference Range Interpretation Comments Eosinophils # (test code 0.0 See_Comment [A utomated message] The = Eosinophils #) system whic h generated this result tra nsmitted reference range : <=0.5. The reference r brian was not used to int erpret this result as normal/abnormal . [id number] 10:14:00 Test Item Value Reference Range Interpretation Comments Basophils # (test code 0.0 See_Comment [Aut omated message] The = Basophils #) system which generated this result tra nsmitted reference range : <=0.2. The reference r brian was not used to int erpret this result as normal/abnormal . [facility] [id number] 10:14:00 Test Item Value Reference Range Interpretation Comments BNP (test code = BNP) 705 [facility]2020-02-15 10:14:00 Test Item Value Reference Range Interpretation Comments Glucose Lvl (test code = Glucose Lvl) 92 70-99 [facility]2020-02-15 10:14:00 Test Item Value Reference Range Interpretation Comments BUN (test code = BUN) 29 7-22 [facility]2020-02-15 10:14:00 Test Item Value Reference Range Interpretation Comments Creatinine Lvl (test code = Creatinine 1.00 0.50-1.40 Lvl) [facility]2020-02-15 10:14:00 Test Item Value Reference Range Interpretation Comments Sodium Lvl (test code = Sodium Lvl) 138 135-145 [facility] KingwoodVozeeme [id number] 10:14:00 Test Item Value Reference Range Interpretation Comments Potassium Lvl (test code = Potassium 3.6 3.5-5.1 Lvl) [facility]2020-02-15 10:14:00 Test Item Value Reference Range Interpretation Comments Chloride Lvl (test code = Chloride Lvl) 107 95-109 [facility]2020-02-15 10:14:00 Test Item Value Reference Range Interpretation Comments CO2 (test code = CO2) 21 24-32 [place] [id number] 10:14:00 Test Item Value Reference Range Interpretation Comments Calcium Lvl (test code = Calcium Lvl) 9.8 8.5-10.5 [facility]LGL/LatinMediosFRYE REGIONAL MEDICAL [id number] 10:14:00 Test Item Value Reference Range Interpretation Comments Total Protein (test code = Total 5.8 6.4-8.4 Protein) [facility]2020-02-15 10:14:00 Test Item Value Reference Range Interpretation Comments Albumin Lvl (test code = Albumin Lvl) 2.3 3.5-5.0 [facility] KingwoodVozeeme [id number] 10:14:00 Test Item Value Reference Range Interpretation Comments ALT (test code = ALT) 34 See_Comment [Auto mated message] The system which ge nerated this result transmit alex reference range : <=65. The reference range was not used to interpr et this result as karen l/abnormal. [facility] CenterThe [facility] [id number] 10:14:00 Test Item Value Reference Range Interpretation Comments AST (test code = AST) 50 See_Comment [Auto mated message] The system which ge nerated this result transmit alex reference range : <=37. The reference range was not used to interpr et this result as karen l/abnormal. [facility] CenterThe [facility] [id number] 10:14:00 Test Item Value Reference Range Interpretation Comments Alk Phos (test code = Alk Phos) 73 39-136 [facility] CenterThe [facility] [id number] 10:14:00 Test Item Value Reference Range Interpretation Comments Bili Total (test code = Bili Total) 1.2 0.2-1.3 [facility] KingwoodVozeeme [id number] 10:14:00 Test Item Value Reference Range Interpretation Comments AGAP (test code = AGAP) 13.6 10.0-20.0 [facility]2020-02-15 10:14:00 Test Item Value Reference Range Interpretation Comments B/C Ratio (test code = B/C Ratio) 29 1 6-25 [place] [address]-02-15 10:14:00 Test Item Value Reference Range Interpretation Comments Globulin (test code = Globulin) 3.5 2.7-4.2 [place] 784940-02-15 10:14:00 Test Item Value Reference Range Interpretation Comments A/G Ratio (test code = A/G Ratio) 0.7 1 0.7-1.6 [place] [address]-02-15 10:14:00 Test Item Value Reference Range Interpretation Comments eGFR (test code = eGFR) 73 [facility]viewBoygweqSNIOVTUYBN9122-06-08 10:14:00 Test Item Value Reference Range Interpretation Comments WBC (test code = WBC) 7.8 3.7-10.4 [place] 675510-02-15 10:14:00 Test Item Value Reference Range Interpretation Comments RBC (test code = RBC) 3.88 4.70-6.10 [place] 675510-02-15 10:14:00 Test Item Value Reference Range Interpretation Comments Hgb (test code = Hgb) 11.6 14.0-18.0 [place] [address]-02-15 10:14:00 Test Item Value Reference Range Interpretation Comments Hct (test code = Hct) 35.3 42.0-54.0 [place] 675510-02-15 10:14:00 Test Item Value Reference Range Interpretation Comments MCV (test code = MCV) 91.0 80.0-94.0 [place] [address]-02-15 10:14:00 Test Item Value Reference Range Interpretation Comments MCH (test code = MCH) 30.0 pg 27.0-31.0 [place] [address]-02-15 10:14:00 Test Item Value Reference Range Interpretation Comments MCHC (test code = MCHC) 33.0 32.0-36.0 [place] 675510-02-15 10:14:00 Test Item Value Reference Range Interpretation Comments RDW (test code = RDW) 14.7 11.5-14.5 [place] 675510-02-15 10:14:00 Test Item Value Reference Range Interpretation Comments Platelet (test code = Platelet) 117 133-450 [facility]viewLpnsilhSDKVGFJSJP6450-31-68 10:14:00 Test Item Value Reference Range Interpretation Comments MPV (test code = MPV) 10.1 7.4-10.4 [facility]viewZbekrunQTKOJMOJFP3878-36-05 10:14:00 Test Item Value Reference Range Interpretation Comments Segs (test code = Segs) 81.9 45.0-75.0 [facility]viewCicihpjKZJBUHJDPK3155-89-54 10:14:00 Test Item Value Reference Range Interpretation Comments Lymphocytes (test code = Lymphocytes) 10.8 20.0-40.0 [place] 675510-02-15 10:14:00 Test Item Value Reference Range Interpretation Comments Monocytes (test code = Monocytes) 6.9 2.0-12.0 [facility]viewRysafpeKUHSBRUIUK8876-42-24 10:14:00 Test Item Value Reference Range Interpretation Comments Eosinophils (test code = 0.2 See_Comment [A utomated message] The Eosinophils) system which ge nerated this result tra nsmitted reference range : <=4.0. The reference r brian was not used to int erpret this result as normal/abnormal . [facility]viewHzxriurLHDHWBYXDV6396-20-09 10:14:00 Test Item Value Reference Range Interpretation Comments Basophils (test code = 0.2 See_Comment [Aut omated message] The Basophils) system which ge nerated this result tra nsmitted reference range : <=1.0. The reference r brian was not used to int erpret this result as normal/abnormal . [facility]viewWjpcczuZHARTSWSMD1798-05-62 10:14:00 Test Item Value Reference Range Interpretation Comments Neutrophils # (test code = Neutrophils 6.4 1.5-8.1 #) [facility]XrsquzhGETRHPXTLY6122-61-70 10:14:00 Test Item Value Reference Range Interpretation Comments Lymphocytes # (test code = Lymphocytes 0.8 1.0-5.5 #) [place] [id number] 10:14:00 Test Item Value Reference Range Interpretation Comments Monocytes # (test code 0.5 See_Comment [Aut omated message] The = Monocytes #) system which generated this result tra nsmitted reference range : <=0.8. The reference r brian was not used to int erpret this result as normal/abnormal . [facility] CenterTbhfiemEDZOTAHVXK7298-56-02 10:14:00 Test Item Value Reference Range Interpretation Comments Eosinophils # (test code 0.0 See_Comment [A utomated message] The = Eosinophils #) system whic h generated this result tra nsmitted reference range : <=0.5. The reference r brian was not used to int erpret this result as normal/abnormal . [facility] CenterMgoqsnuQKPFFWLROD7784-58-92 10:14:00 Test Item Value Reference Range Interpretation Comments Basophils # (test code 0.0 See_Comment [Aut omated message] The = Basophils #) system which generated this result tra nsmitted reference range : <=0.2. The reference r brian was not used to int erpret this result as normal/abnormal . [facility]Click[facility]Care[facility] 10:14:00 Test Item Value Reference Range Interpretation Comments BNP (test code = BNP) 7[address] [facility] [employer]2020-02-15 10:14:00 Test Item Value Reference Range Interpretation Comments Glucose Lvl (test code = Glucose Lvl) 92 70-99 [facility] CenterAMES TechnologyTUCJK5016-90-16 10:14:00 Test Item Value Reference Range Interpretation Comments BUN (test code = BUN) 29 7-22 [facility] [employer]2020-02-15 10:14:00 Test Item Value Reference Range Interpretation Comments Creatinine Lvl (test code = Creatinine 1.00 0.50-1.40 Lvl) [facility] CenterAMES TechnologyHJSDM2187-77-89 10:14:00 Test Item Value Reference Range Interpretation Comments Sodium Lvl (test code = Sodium Lvl) 138 135-145 [facility] [employer]2020-02-15 10:14:00 Test Item Value Reference Range Interpretation Comments Potassium Lvl (test code = Potassium 3.6 3.5-5.1 Lvl) [facility] [employer]2020-02-15 10:14:00 Test Item Value Reference Range Interpretation Comments Chloride Lvl (test code = Chloride Lvl) 107 95-109 [facility] CenterNoster Mobile UOLLSBZ8627-42-20 14:45:00 Test Item Value Reference Range Interpretation Comments CK MB Index (test 1.3 See_Comment [Automate d message] The code = CK MB Index) system w [facility] generated this result transmit alex reference range : <=2.5. The reference range was not used to interpr et this result as karen l/abnormal. [facility] CenterLGL/LatinMediosCARSmart SurgicalAC RQRBLNR5784-69-15 14:45:00 Test Item Value Reference Range Interpretation Comments Troponin-I (test code 0.02 See_Comment [Auto mated message] The = Troponin-I) system which g enerated this result transmit alex reference range : <=0.40. The reference r brian was not used to interpr et this result as karen l/abnormal. [facility]woodIndustrial Technology GroupAC [id number] 14:45:00 Test Item Value Reference Range Interpretation Comments CK MB (test code = CK MB) 1.9 0.5-3.6 [facility]woodIndust[facility] [id number] 14:45:00 Test Item Value Reference Range Interpretation Comments Total CK (test code = Total CK) 149 12-191 [facility] CenterThe [employer] of Fashion [id number] 14:45:00 Test Item Value Reference Range Interpretation Comments eGFR (test code = eGFR) 68 [facility] CenterThe [employer] [facility] [employer] VDLEK9102-24-14 14:45:00 Test Item Value Reference Range Interpretation Comments Sodium Lvl (test code = Sodium Lvl) 142 135-145 [facility] CenterThe [employer] [facility] [employer] [id number] 14:45:00 Test Item Value Reference Range Interpretation Comments Creatinine Lvl (test code = Creatinine 1.1 0.5-1.4 Lvl) [facility] CenterThe [facility] Fashion FGDFY3319-04-28 14:45:00 Test Item Value Reference Range Interpretation Comments BUN (test code = BUN) 18 7-22 [facility] CenterThe [employer] [facility] [employer] [id number] 14:45:00 Test Item Value Reference Range Interpretation Comments Glucose Lvl (test code = Glucose Lvl) 90 70-99 [facility] CenterThe [employer] [facility] [employer] FSDWJ7362-79-26 14:45:00 Test Item Value Reference Range Interpretation Comments AGAP (test code = AGAP) 9.4 10.0-20.0 [facility] CenterThe [facility] VSSJI3714-89-17 14:45:00 Test Item Value Reference Range Interpretation Comments Calcium Lvl (test code = Calcium Lvl) 9.5 8.5-10.5 [facility] CenterThe [employer] [facility] [employer] GJELM5113-63-03 14:45:00 Test Item Value Reference Range Interpretation Comments Chloride Lvl (test code = Chloride Lvl) 107 95-109 [facility]2014-07-08 14:45:00 Test Item Value Reference Range Interpretation Comments CO2 (test code = CO2) 29 24-32 [facility]2014-07-08 14:45:00 Test Item Value Reference Range Interpretation Comments Potassium Lvl (test code = Potassium 3.4 3.5-5.1 Lvl) [facility]SyitrkpHJTXMFSSVY0608-51-43 14:45:00 Test Item Value Reference Range Interpretation Comments Basophils (test code = 0.7 See_Comment [Aut omated message] The Basophils) system which ge nerated this result tra nsmitted reference range : <=1.0. The reference r brian was not used to int erpret this result as normal/abnormal . [facility]viewDjlrkucNBUMNHTAQZ2966-43-33 14:45:00 Test Item Value Reference Range Interpretation Comments Eosinophils (test code = 3.3 See_Comment [A utomated message] The Eosinophils) system which ge nerated this result tra nsmitted reference range : <=4.0. The reference r brian was not used to int erpret this result as normal/abnormal . [facility]viewUrykgxpQJUPDHJOLP7583-62-35 14:45:00 Test Item Value Reference Range Interpretation Comments Monocytes (test code = Monocytes) 8.1 2.0-12.0 [facility]viewQfalkhiUBVSAABMZL9071-73-79 14:45:00 Test Item Value Reference Range Interpretation Comments Lymphocytes (test code = Lymphocytes) 31.7 20.0-40.0 [facility]XxvvvhwRKAMBHKOAN0894-95-32 14:45:00 Test Item Value Reference Range Interpretation Comments Segs (test code = Segs) 56.2 45.0-75.0 [facility]viewZrhmybmKRIJFUVUQT9611-26-52 14:45:00 Test Item Value Reference Range Interpretation Comments Basophils # (test code 0.0 See_Comment [Aut omated message] The = Basophils #) system which generated this result tra nsmitted reference range : <=0.2. The reference r brian was not used to int erpret this result as normal/abnormal . [facility]viewKsysebvFDZVCDXHKM5510-54-23 14:45:00 Test Item Value Reference Range Interpretation Comments Eosinophils # (test code 0.2 See_Comment [A utomated message] The = Eosinophils #) system whic h generated this result tra nsmitted reference range : <=0.5. The reference r brian was not used to int erpret this result as normal/abnormal . [facility]PbmxtwhLQQTJQVLLD2459-32-11 14:45:00 Test Item Value Reference Range Interpretation Comments Monocytes # (test code 0.5 See_Comment [Aut omated message] The = Monocytes #) system which generated this result tra nsmitted reference range : <=0.8. The reference r brian was not used to int erpret this result as normal/abnormal . [facility]viewTsyutrbXBVYYZLEND3301-24-93 14:45:00 Test Item Value Reference Range Interpretation Comments Lymphocytes # (test code = Lymphocytes 1.8 1.0-5.5 #) [facility]viewWtlyupgJZPYNQXXNS7577-55-31 14:45:00 Test Item Value Reference Range Interpretation Comments Segs-Bands # (test code = Segs-Bands #) 3.1 1.5-8.1 [facility]viewKegnpcyIIYGTFDOPF2565-64-10 14:45:00 Test Item Value Reference Range Interpretation Comments PT (test code = PT) 12.9 s 12.0-14.7 [facility]WantdeuVYJBICFFHG3728-83-29 14:45:00 Test Item Value Reference Range Interpretation Comments INR (test code = INR) 0.98 0.85-1.17 [facility]viewHuenanzURRUWOGBIP5327-70-10 14:45:00 Test Item Value Reference Range Interpretation Comments PTT (test code = PTT) 28.7 s 22.9-35.8 [facility]viewTzgrvtfWWIIXDNMJV5168-89-64 14:45:00 Test Item Value Reference Range Interpretation Comments Hgb (test code = Hgb) 13.9 14.0-18.0 [facility]viewGsgbpsjUFRNMPODEL7530-77-36 14:45:00 Test Item Value Reference Range Interpretation Comments MCV (test code = MCV) 91.8 80.0-94.0 [facility]viewZrkpbsrLXGGHUQAUD1211-79-66 14:45:00 Test Item Value Reference Range Interpretation Comments Hct (test code = Hct) 40.8 42.0-54.0 [facility]viewUjmribqGWLBUKIQPM8636-23-72 14:45:00 Test Item Value Reference Range Interpretation Comments WBC (test code = WBC) 5.6 3.7-10.4 [facility]viewFmrjdymTBSNRBYTDN1081-68-47 14:45:00 Test Item Value Reference Range Interpretation Comments RBC (test code = RBC) 4.45 4.70-6.10 [facility] CenterRbmehqdSEAZPYURHB1962-53-64 14:45:00 Test Item Value Reference Range Interpretation Comments MCH (test code = MCH) 31.2 pg 27.0-31.0 [facility] CenterEabyhikTCGDTWNVTY4837-60-22 14:45:00 Test Item Value Reference Range Interpretation Comments RDW (test code = RDW) 13.2 11.5-14.5 [facility] CenterYvlbecmGOMSGSCAYY5489-60-02 14:45:00 Test Item Value Reference Range Interpretation Comments MCHC (test code = MCHC) 34.0 32.0-36.0 [facility] CenterGpbshndJAIKGUEEOZ3214-36-01 14:45:00 Test Item Value Reference Range Interpretation Comments Platelet (test code = Platelet) 174 133-450 [facility] CenterDywbnzuPQLROUWOIJ6483-03-83 14:45:00 Test Item Value Reference Range Interpretation Comments MPV (test code = MPV) 8.8 7.4-10.4 [facility] CenterBeMyEyeAC TXCVVHY1324-35-06 14:45:00 Test Item Value Reference Range Interpretation Comments CK MB Index (test 1.3 See_Comment [Automate d message] The code = CK MB Index) system w [facility] generated this result transmit alex reference range : <=2.5. The reference range was not used to interpr et this result as karen l/abnormal. [facility] CenterNoster Mobile [id number] 14:45:00 Test Item Value Reference Range Interpretation Comments Troponin-I (test code 0.02 See_Comment [Auto mated message] The = Troponin-I) system which g enerated this result transmit alex reference range : <=0.40. The reference r brian was not used to interpr et this result as karen l/abnormal. [facility] CenterBeMyEyeAC PHVGSAJ1867-02-55 14:45:00 Test Item Value Reference Range Interpretation Comments CK MB (test code = CK MB) 1.9 0.5-3.6 [facility] CenterBeMyEyeAC [id number] 14:45:00 Test Item Value Reference Range Interpretation Comments Total CK (test code = Total CK) 149 12-191 [facility] [employer] ACBYX4720-52-93 14:45:00 Test Item Value Reference Range Interpretation Comments eGFR (test code = eGFR) 68 [facility]2014-07-08 14:45:00 Test Item Value Reference Range Interpretation Comments Sodium Lvl (test code = Sodium Lvl) 142 135-145 [facility]2014-07-08 14:45:00 Test Item Value Reference Range Interpretation Comments Creatinine Lvl (test code = Creatinine 1.1 0.5-1.4 Lvl) [facility]2014-07-08 14:45:00 Test Item Value Reference Range Interpretation Comments BUN (test code = BUN) 18 7-22 [facility]2014-07-08 14:45:00 Test Item Value Reference Range Interpretation Comments Glucose Lvl (test code = Glucose Lvl) 90 70-99 [facility]2014-07-08 14:45:00 Test Item Value Reference Range Interpretation Comments AGAP (test code = AGAP) 9.4 10.0-20.0 [facility]2014-07-08 14:45:00 Test Item Value Reference Range Interpretation Comments Calcium Lvl (test code = Calcium Lvl) 9.5 8.5-10.5 [facility]2014-07-08 14:45:00 Test Item Value Reference Range Interpretation Comments Chloride Lvl (test code = Chloride Lvl) 107 95-109 [facility]2014-07-08 14:45:00 Test Item Value Reference Range Interpretation Comments CO2 (test code = CO2) 29 24-32 [facility]2014-07-08 14:45:00 Test Item Value Reference Range Interpretation Comments Potassium Lvl (test code = Potassium 3.4 3.5-5.1 Lvl) [facility]viewHuyzcuwWPMIJOKOKH6021-97-98 14:45:00 Test Item Value Reference Range Interpretation Comments Basophils (test code = 0.7 See_Comment [Aut omated message] The Basophils) system which ge nerated this result tra nsmitted reference range : <=1.0. The reference r brian was not used to int erpret this result as normal/abnormal . [facility]viewKrgjxixSZLPYMOAWL6149-27-76 14:45:00 Test Item Value Reference Range Interpretation Comments Eosinophils (test code = 3.3 See_Comment [A utomated message] The Eosinophils) system which ge nerated this result tra nsmitted reference range : <=4.0. The reference r brian was not used to int erpret this result as normal/abnormal . [facility]viewZdrxnojXZHATAMSUL7366-17-26 14:45:00 Test Item Value Reference Range Interpretation Comments Monocytes (test code = Monocytes) 8.1 2.0-12.0 [facility]viewEemynatTEZHNRAZYX9273-13-72 14:45:00 Test Item Value Reference Range Interpretation Comments Lymphocytes (test code = Lymphocytes) 31.7 20.0-40.0 [facility]viewQbygvmxYFZQXPYYNF7720-10-00 14:45:00 Test Item Value Reference Range Interpretation Comments Segs (test code = Segs) 56.2 45.0-75.0 [facility]viewZbskahtFHAHXWBMPS3448-11-89 14:45:00 Test Item Value Reference Range Interpretation Comments Basophils # (test code 0.0 See_Comment [Aut omated message] The = Basophils #) system which generated this result tra nsmitted reference range : <=0.2. The reference r brian was not used to int erpret this result as normal/abnormal . [facility]viewPnwgywkOFWLLZVDWL6008-70-17 14:45:00 Test Item Value Reference Range Interpretation Comments Eosinophils # (test code 0.2 See_Comment [A utomated message] The = Eosinophils #) system ic h generated this result tra nsmitted reference range : <=0.5. The reference r brian was not used to int erpret this result as normal/abnormal . [facility]viewWieunygMSUYMOPOCC4919-08-46 14:45:00 Test Item Value Reference Range Interpretation Comments Monocytes # (test code 0.5 See_Comment [Aut omated message] The = Monocytes #) system which generated this result tra nsmitted reference range : <=0.8. The reference r brian was not used to int erpret this result as normal/abnormal . [facility]viewQsnkgqeYLQELTANIZ2870-39-65 14:45:00 Test Item Value Reference Range Interpretation Comments Lymphocytes # (test code = Lymphocytes 1.8 1.0-5.5 #) [facility]QfyyphlCMLUJPTMLA9980-16-82 14:45:00 Test Item Value Reference Range Interpretation Comments Segs-Bands # (test code = Segs-Bands #) 3.1 1.5-8.1 [facility]viewPcsppzrAIFGYEHOMI3440-07-22 14:45:00 Test Item Value Reference Range Interpretation Comments PT (test code = PT) 12.9 s 12.0-14.7 [facility]viewRxwmouoCVQACUZTSV2412-05-56 14:45:00 Test Item Value Reference Range Interpretation Comments INR (test code = INR) 0.98 0.85-1.17 [facility]viewByslwstPRWBXRFDZT5670-66-94 14:45:00 Test Item Value Reference Range Interpretation Comments PTT (test code = PTT) 28.7 s 22.9-35.8 [facility]viewDfyqvpeVPFESXGHGS1939-83-55 14:45:00 Test Item Value Reference Range Interpretation Comments Hgb (test code = Hgb) 13.9 14.0-18.0 [facility]viewZznwbkmAHAFPTXZEZ7064-43-34 14:45:00 Test Item Value Reference Range Interpretation Comments MCV (test code = MCV) 91.8 80.0-94.0 [facility]viewJclafnsUOVVPAOUGY9596-54-06 14:45:00 Test Item Value Reference Range Interpretation Comments Hct (test code = Hct) 40.8 42.0-54.0 [facility]viewLoccbyaBGEZIMBPAL5587-63-54 14:45:00 Test Item Value Reference Range Interpretation Comments WBC (test code = WBC) 5.6 3.7-10.4 [facility]viewDaaftqsAVHWKPTCWT2935-81-91 14:45:00 Test Item Value Reference Range Interpretation Comments RBC (test code = RBC) 4.45 4.70-6.10 [facility]viewAqfqiyhPNLOKIHGIP4940-98-68 14:45:00 Test Item Value Reference Range Interpretation Comments MCH (test code = MCH) 31.2 pg 27.0-31.0 [facility]viewUhccgfsWJVCCZQTYA0387-32-54 14:45:00 Test Item Value Reference Range Interpretation Comments RDW (test code = RDW) 13.2 11.5-14.5 [facility]viewBtwjbalMGPIWMTWIE3629-66-70 14:45:00 Test Item Value Reference Range Interpretation Comments MCHC (test code = MCHC) 34.0 32.0-36.0 [facility]viewDdllwbyEDOFNCAKVP8153-04-77 14:45:00 Test Item Value Reference Range Interpretation Comments Platelet (test code = Platelet) 174 133-450 [facility]viewLlyygqnWLVONZVYTK4284-77-90 14:45:00 Test Item Value Reference Range Interpretation Comments MPV (test code = MPV) 8.8 7.4-10.4 [facility]
[2022-11-24] MEDS ORDERED: NA CHLORIDE 0.9% 100 ML ONE ×2 (09:50→21:57)
[2022-11-24] MEDS ORDERED: NA CHLORIDE 0.9% 1,000 ML ONE ×2 (09:50→16:06)
[2022-11-24] MEDS ORDERED: LEVALBUTEROL 1.25 MG/3 ML NEB ONE (09:50)
[2022-11-24] MEDS ORDERED: IPRATROPIUM BROM 0.5MG/2.5ML ONE (09:50)
[2022-11-24] MEDS ORDERED: PIPERACIL/TAZO 3.375 GM VIAL IV ONE (09:51)
[2022-11-24 10:10] LABS: Absolute Lymphocytes (CBC) 1.2 K/uL (0.7-4.9); Hematocrit 31.9 % (39.6-49.0); Lymphocytes % 34.8 % (15.3-44.8); MCV 88.1 fL (80-100); MPV 7.2 fL (7.6-11.3); RBC Red Blood Cell Count 3.63 M/uL (4.33-5.43)
[2022-11-24 10:14] LABS: Protime INR 1.06
[2022-11-24 10:26] LABS: AST/SGOT 19 U/L (15-37); Albumin 2.8 g/dL (3.4-5.0); Alkaline Phosphatase 74 U/L (45-117); BUN Blood Urea Nitrogen 13 mg/dL (7-18); Bicarbonate 25 mmol/L (21-32); Bilirubin Direct 0.1 mg/dL (0-0.2); Bilirubin Total 0.4 mg/dL (0.2-1.0); Glomerular Filtration Rate 87 ml/min (=/>90); Glucose Level 99 mg/dL (74-106); Lipase 147 U/L (73-393); Magnesium 1.9 mg/dL (1.6-2.4); NT PRO-BNP 603 pg/mL (<450); Potassium 3.4 mmol/L (3.5-5.1); Protein, Total 6.4 g/dL (6.4-8.2); Sodium Level 142 mmol/L (136-145); Troponin High Sensitivity 21.9 pg/mL (<58.9)
--- NOTE | 2022-11-24 10:39 | RAD REPORT ---
EXAM DESCRIPTION: RAD - Chest Single View - 11/24/2022 10:16 am CLINICAL HISTORY: CONGESTION COMPARISON: Chest Pa And Lat (2 Views) dated 06/20/2021hest Single View dated 04/20/2021; Chest Singl e View dated 07/08/2020; Chest Single View dated 07/04/2020; Chest Single View dated 12/10/2019 FINDINGS: Lines: Pacemaker. Lungs: No evidence of edema or pneumonia. Pleural: No significant pleural effusions or pneumothorax. Cardiac: Cardiomegaly. Mediastinum: Within normal limits. Bones: No acute fractures. Fusion hardware in the lower thoracic and lumbar spine. Other: None IMPRESSION: No acute cardiopulmonary disease.
[2022-11-24 10:40] LABS: ALT/SGPT < 10 U/L (16-61)
[2022-11-24 10:44] LABS: SARS-COV-2 RT PCR POSITIVE (NEGATIVE)
--- NOTE | 2022-11-24 10:48 | EDPHYS ---
Physician Documentation [facility] Name: Schuyler Farris Jr Age: 77 yrs Sex: Male : 1945 Arrival Date: 11/24/2022 Time: 09:26 Bed 5 Private MD: ED Physician Gabe Khanna HPI: 11/24 09:41 This 77 yrs old Unknown Male presents to ER via EMS with complaints of Cough, lasha Congestion. 09:41 The patient or guardian reports cough, described as mild, difficulty breathing. Onset: lasha The symptoms/episode began/occurred 3 day(s) ago. Severity of symptoms: At their worst the symptoms were moderate, in the emergency department the symptoms are unchanged. Modifying factors: The symptoms are alleviated by cool environment. The patient has experienced similar episodes in the past, multiple times. Historical: - Allergies: 09:26 Bactrim; hb 09:26 Tetanus Vaccines \T\ Toxoid; hb - PMHx: 09:26 Angina; CHF; Hyperlipidemia; Hypertension; CAD; pacemaker/defibrilator; hb - Immunization history:: Adult Immunizations up to date. - Social history:: Smoking status: Patient denies any tobacco usage or history of. ROS: 09:48 Constitutional: Negative for fever, chills, and weight loss, Eyes: Negative for injury, lasha pain, redness, and discharge, ENT: Negative for injury, pain, and discharge, Neck: Negative for injury, pain, and swelling, Cardiovascular: Negative for chest pain, palpitations, and edema, Abdomen/GI: Negative for abdominal pain, nausea, vomiting, diarrhea, and constipation, Back: Negative for injury and pain, : Negative for injury, bleeding, discharge, and swelling, Skin: Negative for injury, rash, and discoloration, Neuro: Negative for headache, weakness, numbness, tingling, and seizure, Psych: Negative for depression, anxiety, suicide ideation, homicidal ideation, and hallucinations, Allergy/Immunology: Negative for hives, rash, and allergies, Endocrine: Negative for neck swelling, polydipsia, polyuria, polyphagia, and marked weight changes, Hematologic/Lymphatic: Negative for swollen nodes, abnormal bleeding, and unusual bruising. 09:48 Respiratory: Positive for cough, shortness of breath, at rest. 09:48 MS/extremity: Positive for pain, swelling, of the right leg. Exam: 09:48 Constitutional: This is a well developed, well nourished patient who is awake, alert, lasha and in no acute distress. Head/Face: Normocephalic, atraumatic. Eyes: Pupils equal round and reactive to light, extra-ocular motions intact. Lids and lashes normal. Conjunctiva and sclera are non-icteric and not injected. Cornea within normal limits. Periorbital areas with no swelling, redness, or edema. ENT: Nares patent. No nasal discharge, no septal abnormalities noted. Tympanic membranes are normal and external auditory canals are clear. Oropharynx with no redness, swelling, or masses, exudates, or evidence of obstruction, uvula midline. Mucous membranes moist. Neck: Trachea midline, no thyromegaly or masses palpated, and no cervical lymphadenopathy. Supple, full range of motion without nuchal rigidity, or vertebral point tenderness. No Meningismus. Chest/axilla: Normal chest wall appearance and motion. Nontender with no deformity. No lesions are appreciated. Cardiovascular: Regular rate and rhythm with a normal S1 and S2. No gallops, murmurs, or rubs. Normal PMI, no JVD. No pulse deficits. Abdomen/GI: Soft, non-tender, with normal bowel sounds. No distension or tympany. No guarding or rebound. No evidence of tenderness throughout. Back: No spinal tenderness. No costovertebral tenderness. Full range of motion. Male : Normal genitalia with no discharge or lesions. Skin: Warm, dry with normal turgor. Normal color with no rashes, no lesions, and no evidence of cellulitis. MS/ Extremity: Pulses equal, no cyanosis. Neurovascular intact. Full, normal range of motion. Neuro: Awake and alert, GCS 15, oriented to person, place, time, and situation. Cranial nerves II-XII grossly intact. Motor strength 5/5 in all extremities. Sensory grossly intact. Cerebellar exam normal. Normal gait. Psych: Awake, alert, with orientation to person, place and time. Behavior, mood, and affect are within normal limits. 09:48 ECG was reviewed by the Attending Physician. 09:48 Respiratory: mild respiratory distress is noted, Respirations: no acute changes, Breath sounds: rhonchi, + upper airway congestion. wheezing: expiratory Respiratory rate: 22 Vital Signs: 09:30 BP 103 / 74; Pulse 75; Resp 18; Temp 97.6(O); Pulse Ox 95% on R/A; ss 11:15 BP 130 / 64; Pulse 59; Resp 17; Pulse Ox 99% on R/A; hb 14:40 Weight 108.86 kg; ss MDM: 09:27 Patient medically screened. [facility] 09:51 Differential diagnosis: Anemia asthma, Bronchitis CHF exacerbation, Chronic Obstructive lasha Pulmonary Disease obstructed airway, bronchitis, flu, URI, pneumonia. Antibiotic administration: zosyn. Differential Diagnosis: Obstructed Airway Bronchitis Influenza Upper Respiratory Infection Sinusitis Asthma Exacerbation Viral Syndrome Pneumonia. Immunization status: Pneumococcal vaccine: Influenza vaccine: Data reviewed: vital signs, nurses notes, lab test result(s), EKG, radiologic studies. Consideration of Admission/Observation Patient was admitted/placed on observation. Escalation of care including admission/observation considered. Independent interpretation of the following test(s) in the Emergency Department X-Ray: My interpretation is cxr. business controller: rate is 60 beats/min, with no ectopy. 11/24 09:39 Order name: Basic Metabolic Panel; Complete Time: 10:43 11/24 09:39 Order name: CBC with Diff; Complete Time: 10:35 11/24 09:39 Order name: LFT's; Complete Time: 10:43 11/24 09:39 Order name: Magnesium; Complete Time: 10:43 11/24 09:39 Order name: NT PRO-BNP; Complete Time: 10:43 11/24 09:39 Order name: PT-INR; Complete Time: 10:35 11/24 09:39 Order name: Troponin HS; Complete Time: 10:43 11/24 09:39 Order name: Blood Culture Adult (2) 11/24 09:39 Order name: COVID-19/FLU A+B; Complete Time: 11:58 11/24 09:39 Order name: CRP; Complete Time: 10:43 11/24 09:39 Order name: Lipase; Complete Time: 10:43 11/24 09:39 Order name: Lactate w/ 2H reflex if indic.; Complete Time: 10:35 11/24 09:39 Order name: D-Dimer; Complete Time: 10:35 11/24 11:42 Order name: Urine Dipstick-Ancillary; Complete Time: 11:58 [facility] 11/24 09:39 Order name: XRAY Chest (1 view); Complete Time: 10:43 [facility] 11/24 09:39 Order name: EKG; Complete Time: 09:40 [facility] 11/24 09:39 Order name: Cardiac monitoring; Complete Time: 10:00 [facility] 11/24 09:39 Order name: EKG - Nurse/Tech; Complete Time: 09:53 [facility] 11/24 09:39 Order name: IV Saline Lock; Complete Time: 10:00 [facility] 11/24 09:39 Order name: Labs collected and sent; Complete Time: 10:00 [facility] 11/24 09:39 Order name: US Extremity Venous W Compression Mathieu; Complete Time: 11:58 [facility] 11/24 10:37 Order name: CT Chest For PE Angio; Complete Time: 11:58 [facility] 11/24 09:39 Order name: O2 Per Protocol; Complete Time: 10:00 [facility] 11/24 09:39 Order name: O2 Sat Monitoring; Complete Time: 10:00 [facility] 11/24 09:39 Order name: Urine Dipstick-Ancillary (obtain specimen); Complete Time: 11:34 [facility] EC:48 Rate is 60 beats/min. Rhythm is regular. QRS [place] is Normal. [place] interval is normal. QRS lasha interval is normal. QT interval is normal. T waves are Normal. No ST changes noted. Clinical impression: Abnormal EKG without significant change and No evidence of ischemia. Interpreted by me. Reviewed by me. Administered Medications: 10:03 Drug: NS 0.9% 500 ml Route: IV; Rate: bolus; Site: left antecubital; hb 10:03 Drug: NS 0.9% 1000 ml Route: IV; Rate: 125 ml/hr; Site: left antecubital; hb 10:03 Drug: Xopenex (levalbuterol) 2.5 mg Route: Inhalation; hb 10:03 Drug: AtroVENT (ipratropium) Aerosol 0.5 mg Route: Inhalation; hb 10:03 Drug: SOLU-Medrol (methylPrednisoLONE) 125 mg Route: IVP; Site: left antecubital; hb 11:00 Follow up: Response: No adverse reaction hb 10:28 Drug: Zosyn (piperacillin-tazobactam) 3.375 grams Route: IVPB; Infused Over: 60 mins; hb Site: left antecubital; 16:49 Drug: Lovenox (enoxaparin) 1 mg/kg Route: Sub-Q; Site: abdomen; hb Disposition Summary: 11/24/22 10:47 Hospitalization Ordered Hospitalization Status: Inpatient Admission lasha Provider: Alexei Dubois cha Location: Telemetry/MedSurg (Inpatient) lasha Condition: Stable lasha Problem: new lasha Symptoms: have improved lasha Bed/Room Type: Standard [facility] Room Assignment: 222(11/24/22 17:06) dw Diagnosis - Dyspnea lasha - Hypoxemia lasha - Coronavirus infection, unspecified lasha - SARS-associated coronavirus as the cause of diseases classified elsewhere lasha - Hypokalemia lasha - Acute embolism and thrombosis of other specified deep vein of right lower extremity lasha Forms: - Medication Reconciliation Form lasha - SBAR form lasha Signatures: Dispatcher [employer] Uzma Silverman RN RN dw Anderson, Corey, MD MD cha Baxter, Heather, RN RN hb Corrections: (The following items were deleted from the chart) 17:06 10:47 lasha dw
--- NOTE | 2022-11-24 10:48 | ER ---
Nurse's Notes [facility] Name: Schuyler Farris Jr Age: 77 yrs Sex: Male : 1945 Arrival Date: 11/24/2022 Time: 09:26 Bed 5 Private MD: Diagnosis: Dyspnea;Hypoxemia;Coronavirus infection, unspecified;SARS-associated coronavirus as the cause of diseases classified elsewhere;Hypokalemia;Acute embolism and thrombosis of other specified deep vein of right lower extremity Presentation: 11/24 09:30 Chief complaint: Patient states: Tested positive for COVID 5 days ago at [facility]. Pt c/o chest congestion x 3 days. Coronavirus screen: Client presents with at least one sign or symptom that may indicate coronavirus-19. Ebola Screen: Patient denies exposure to infectious person. Patient denies travel to an Ebola-affected area in the 21 days before illness onset. Initial Sepsis Screen: Does the patient meet any 2 criteria? No. Patient's initial sepsis screen is negative. Does the patient have a suspected source of infection? No. Patient's initial sepsis screen is negative. Risk Assessment: Do you want to hurt yourself or someone else? Patient reports no desire to harm self or others. Onset of symptoms is unknown. 09:30 Method Of Arrival: EMS: [facility] 09:30 Acuity: JOSE 3 ss Historical: - Allergies: 09:26 Bactrim; hb 09:26 Tetanus Vaccines \T\ Toxoid; hb - PMHx: 09:26 Angina; CHF; Hyperlipidemia; Hypertension; CAD; pacemaker/defibrilator; hb - Immunization history:: Adult Immunizations up to date. - Social history:: Smoking status: Patient denies any tobacco usage or history of. Screenin:27 [facility] ED Fall Risk Assessment (Adult) Score/Fall Risk Level 3 or more points = High hb Risk Oriented to surroundings, Maintained a safe environment, Hourly rounding (assess needs \T\ fall precautionary measures) done. Abuse screen: Denies threats or abuse. Denies injuries from another. Nutritional screening: No deficits noted. Tuberculosis screening: No symptoms or risk factors identified. Assessment: 09:35 General: Appears in no apparent distress. Behavior is calm, cooperative. Pain: Denies hb pain. Neuro: Level of Consciousness is awake, alert, obeys commands, Oriented to person, place, time, situation. Cardiovascular: Patient's skin is warm and dry. Rhythm is regular. Respiratory: Reports cough that is non-productive, Respiratory effort is even, unlabored, Respiratory pattern is regular, symmetrical. GI: No signs and/or symptoms were reported involving the gastrointestinal system. : No signs and/or symptoms were reported regarding the genitourinary system. EENT: No signs and/or symptoms were reported regarding the EENT system. Derm: Skin is pink, warm \T\ dry. Musculoskeletal: No signs and/or symptoms reported regarding the musculoskeletal system. 10:30 Reassessment: Patient appears in no apparent distress at this time. No changes from hb previously documented assessment. Patient and/or family updated on plan of care and expected duration. Pain level reassessed. 11:30 Reassessment: Patient appears in no apparent distress at this time. No changes from hb previously documented assessment. Patient and/or family updated on plan of care and expected duration. Pain level reassessed. 12:30 Reassessment: Patient appears in no apparent distress at this time. No changes from hb previously documented assessment. Patient and/or family updated on plan of care and expected duration. Pain level reassessed. 13:05 Reassessment: Dr. Javier at bedside. hb 14:30 Reassessment: Patient appears in no apparent distress at this time. No changes from hb previously documented assessment. Patient and/or family updated on plan of care and expected duration. Pain level reassessed. 15:54 Reassessment: Patient appears in no apparent distress at this time. No changes from hb previously documented assessment. Patient and/or family updated on plan of care and expected duration. Pain level reassessed. Vital Signs: 09:30 BP 103 / 74; Pulse 75; Resp 18; Temp 97.6(O); Pulse Ox 95% on R/A; ss 11:15 BP 130 / 64; Pulse 59; Resp 17; Pulse Ox 99% on R/A; hb 14:40 Weight 108.86 kg; ss ED Course: 09:26 Patient arrived in ED. hb 09:26 Arm band placed on. hb 09:27 Gabe Khanna MD is Attending Physician. lasha 09:27 Patient has correct armband on for positive identification. hb 09:33 Triage completed. ss 09:40 Helen Parikh RN is Primary Nurse. hb 10:00 Inserted saline lock: 20 gauge in left antecubital area, using aseptic technique. Blood ld1 collected. 10:00 COVID-19/FLU A+B Sent. ld1 10:00 Blood Culture Adult (2) Sent. ld1 10:17 XRAY Chest (1 view) In Process Unspecified. EDMS 10:41 US Extremity Venous W Compression Mathieu In Process Unspecified. EDMS 10:44 Alexei Dubois MD is Hospitalizing Provider. [facility] 11:15 CT Chest For PE Angio In Process Unspecified. EDMS 17:54 No provider procedures requiring assistance completed. Patient admitted, IV remains in ld1 place. Administered Medications: 10:03 Drug: NS 0.9% 500 ml Route: IV; Rate: bolus; Site: left antecubital; hb 10:03 Drug: NS 0.9% 1000 ml Route: IV; Rate: 125 ml/hr; Site: left antecubital; hb 10:03 Drug: Xopenex (levalbuterol) 2.5 mg Route: Inhalation; hb 10:03 Drug: AtroVENT (ipratropium) Aerosol 0.5 mg Route: Inhalation; hb 10:03 Drug: SOLU-Medrol (methylPrednisoLONE) 125 mg Route: IVP; Site: left antecubital; hb 11:00 Follow up: Response: No adverse reaction hb 10:28 Drug: Zosyn (piperacillin-tazobactam) 3.375 grams Route: IVPB; Infused Over: 60 mins; hb Site: left antecubital; 16:49 Drug: Lovenox (enoxaparin) 1 mg/kg Route: Sub-Q; Site: abdomen; hb Medication: 09:27 VIS not applicable for this client. hb Output: 16:08 Urine: 1200ml (Patel); Total: 1200ml. hb Outcome: 10:47 Decision to Hospitalize by Provider. lasha 17:54 Admitted to Med/surg accompanied by tech, via stretcher, with chart, Report called to ld1 LIZ Rodgers 17:54 Condition: stable 17:54 Instructed on the need for admit. 18:16 Patient left the ED. ld1 Signatures: Dispatcher [employer] EDMT Gabe Khanna MD MD cha Smirch, Shelby, RN RN Helen Parikh RN RN hb Milady Thompson, RN RN ld1
--- NOTE | 2022-11-24 11:02 | RAD REPORT ---
EXAM DESCRIPTION: US - Extrem Venous W Compress Mathieu - 11/24/2022 10:39 am CLINICAL HISTORY: PAIN COMPARISON: No comparisons TECHNIQUE: Real-time sonographic evaluation of the lower extremity deep venous systems was performed using color Doppler, grayscale, and compression. FINDINGS: Bilateral lower extremities. The right femoral vein at the bifurcation is incompletely compressible and demonstrates nonocclusive flow as evidenced by color Doppler. The remaining vessels in the right lower extremity are compressib le and demonstrate normal color flow and grayscale imaging. The left lower extremity is negative for deep venous thrombosis as well. IMPRESSION: Positive for deep venous thrombosis. Nonocclusive thrombus is present in the right femor al vein. The left lower extremity is negative .
--- NOTE | 2022-11-24 11:29 | RAD REPORT ---
EXAM DESCRIPTION: CT - Chest For Pe Angio - 11/24/2022 11:13 am CLINICAL HISTORY: cp COMPARISON: Chest Angio dated 11/12/2019; Thorax W/ Con dated 03/03/2016; Chest Single View dated 2022; Chest Single View dated 12/10/2019 TECHNIQUE: Dynamically enhanced axial 3 mm thick images of the chest were obtained during administra tion of <100> mL Isovue 370 IV contrast. Coronal and oblique reconstruction images were generated and reviewed. Exam utilizes a protocol for optimal evaluation of pulmonary arterial tree. Maximum intensity projections 3D imaging was utilized All CT scans are performed using dose optimization technique as appropriate and may include automated exposure control or mA/KV adjustment according to patient size. FINDINGS: Chest Wall: Right upper chest wall pacemaker. On the prior CT, this was in the left upper chest wall. Lungs: Dependent atelectasis. Limited by motion. Likely subsegmental atelectasis in the lingula as we ll as some nonspecific ground-glass opacities in the lingula, right middle lobe, and lower lobes. . Pleura: Small pleural effusions. Mediastinum/gorge: No pathologic lymphadenopathy. Pulmonary arteries/Aorta: Ascending thoracic aortic aneurysm measuring 4.6 cm. Suboptimal contrast op acification of the pulmonary arteries. Collateral flow into the azygos vein and chest wall may be due to stenosis around the pacemaker wires. No central pulmonary embolus identified. The lobar, segmenta l, and subsegmental pulmonary arteries cannot be evaluated due to motion artifact, suboptimal contras t opacification, and streak artifact from the patient's arms. Heart: No significant pericardial effusion. Moderate cardiomegaly. Multi-vessel coronary artery calci fications. Upper abdomen: No acute abnormality. Bones: No acute abnormality. Fusion hardware in the thoracic spine. Bridging osteophytes in the spine . IMPRESSION: 1. Study limited due to multiple factors as noted above. No central pulmonary embolus. N evertheless, a clinically significant pulmonary embolus cannot be excluded on the basis of this exam. A repeat CT with injection via the right upper extremity, arms raised, and breath hold would be more likely to yield a higher quality exam. This could be performed when the patient's condition permits. 2. No consolidative airspace disease. Possible edema. 3. 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 Chest wall co llaterals and flow through the azygous vein present. This was a contributing factor to a suboptimal e xamination.
[2022-11-24 11:42] LABS: Urine Blood Negative (Negative); Urine Glucose Negative (Negative); Urine Protein 1+ (Negative); Urine Specific Gravity 1.015 (1.005-1.030); Urine pH 6.5 (5.0-7.0)
--- NOTE | 2022-11-24 14:00 | P.HP ---
Certification for Inpatient Patient admitted to: Observation With expected LOS: <2 Midnights Practitioner: I am a practitioner with admitting privileges, knowledge of patient current condition, hospital course, and medical plan of care. Services: Services provided to patient in accordance with Admission requirements found in Title 42 Section 412.3 of the Code of Federal Regulations Patient History Date of Service: 11/24/22 Reason for admission: Malaise History of Present Illness: 77-year-old gentleman with a history of chronic systolic heart failure, status post pacemaker/AICD, recent right knee surgery in [facility] for rehab was transferred from [place] to the emergency department due to general feeling of unwell. He tested positive for COVID-19 in the ED. Patient denies any shortness of breath or cough or chest pain. He also denied any fever. Patient D-dimer noted to be elevated in the ED. Venous Doppler of the lower extremities demonstrated nonocclusive thrombus in the right femoral vein. 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 No acute infiltrate. His oxygen saturation was ranging from 90 to 92% on room air. Patient placed on oxygen by nasal cannula. He has no leukocytosis, no sepsis. Patient is hospitalized for further management. Allergies sulfamethoxazole [From Bactrim] Allergy (Verified 12/06/19 20:11) Itching/Hives/Rash tetanus toxoid, adsorbed Allergy (Verified 12/06/19 20:11) unknown trimethoprim [From Bactrim] Allergy (Verified 12/06/19 20:11) Itching/Hives/Rash Home Medications: Aspirin Chewable [Aspirin Chewable*] 81 mg PO DAILY 11/11/19 Lisinopril [Zestril] 10 mg PO DAILY 03/08/20 Melatonin 3 mg PO BEDTIME 03/08/20 Sennosides/Docusate Sodium [Senna-Docusate Sodium Tablet] 1 tab PO BEDTIME 03/08/20 Acetaminophen 1,000 mg PO Q8HR 04/19/21 Amlodipine [Norvasc*] 5 mg PO DAILY 04/19/21 Atorvastatin Calcium 20 mg PO BEDTIME 04/19/21 Carvedilol [Coreg] 12.5 mg PO BID 6AM 6PM 04/19/21 Furosemide [Lasix] 20 mg PO DAILY 04/19/21 Hydralazine [Apresoline*] 10 mg PO TID 04/19/21 Gabapentin [Neurontin*] 100 mg PO BID #600 cap 05/04/21 Lidocaine 4% Patch [Lidoderm 5% Patch*] 2 patch TOP DAILY patch 05/04/21 - Past Medical/Surgical History Diabetic: No -: Cardiomegaly -: Hypertension -: Pacemaker -: HLD -: CHF -: Pacemaker -: Knee replacement -: back sx -: elbow sx left -: gtube - Family History Father -: Other (see notes) Notes: Aneurysm Mother -: Diabetes parents Notes: none as per pt - Social History Alcohol use: Yes CD- Drugs: No Caffeine use: Yes Review of Systems Other: Patient denied any fever, denied any abdominal pain or nausea vomiting or diarrhea. Except as documented, all other systems reviewed and negative. Physical Examination - Physical Exam General: Alert, In no apparent distress, Oriented x3 HEENT: Atraumatic, PERRLA, Mucous membr. moist/pink, Sclerae nonicteric Neck: JVD not distended Respiratory: Clear to auscultation bilaterally, Normal air movement Cardiovascular: No edema, Regular rate/rhythm, Normal S1 S2 Gastrointestinal: Normal bowel sounds, Soft and benign, Non-distended, No tenderness Musculoskeletal: No swelling, No tenderness Integumentary: Other (Right knee surgery wound with sutures, wound looks clean.) Neurological: Normal speech, Normal strength at 5/5 x4 extr, Other (Dysphoric) Lymphatics: No axilla or inguinal lymphadenopathy - Studies Laboratory Data (last 24 hrs) 11/24/22 09:58: PT 11.7, INR 1.06 11/24/22 09:58: WBC 3.30 L, Hgb 10.6 L, Hct 31.9 L, Plt Count 179 11/24/22 09:58: Sodium 142, Potassium 3.4 L, BUN 13, Creatinine 0.88, Glucose 99, Magnesium 1.9, Total Bilirubin 0.4, AST 19, ALT < 10 L, Alkaline Phosphatase 74, Lipase 147 Assessment and Plan - Problems (Diagnosis) (1) Acute deep vein thrombosis (DVT) of lower extremity Current Visit: Yes Status: Acute (2) COVID-19 virus infection Current Visit: Yes Status: Acute (3) Chronic systolic heart failure Current Visit: Yes Status: Acute (4) HTN (hypertension) Current Visit: No Status: Acute Qualifiers: Hypertension type: essential hypertension - Plan Patient appears to be asymptomatic from COVID-19 infection. No infiltrate. Placed under observation on the medical floor. Start Lovenox anticoagulation for DVT. 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 Supplemental oxygen as needed. Bronchodilators as needed Reconcile and continue other home medications. PT consult - Advance Directives Does patient have a Living Will: No Does patient have a Durable POA for Healthcare: No
[2022-11-24] MEDS ORDERED: ENOXAPARIN 100 MG/ML SYR SQ ONE (14:46)
[2022-11-24 18:30] VITALS: BMI 35.4
[2022-11-24] MEDS ORDERED: ALBUTEROL INHALER 60 PUFF/8 GM IH PRN (18:31)
[2022-11-24] MEDS ORDERED: ACETAMINOPHEN 500 MG TAB PO PRN (18:31)
[2022-11-24] MEDS ORDERED: ONDANSETRON 4 MG/2 ML VIAL IV PRN (18:31)
[2022-11-24] MEDS ORDERED: POTASSIUM CL SA 10 MEQ TAB PO ONE (19:29)
[2022-11-24] MEDS ORDERED: CLONIDINE 0.1 MG/PATCH TD SCH (20:15)
[2022-11-24] MEDS ORDERED: SIMETHICONE 80 MG TAB PO SCH (21:00)
[2022-11-24] MEDS ORDERED: PANTOPRAZOLE 40MG TABLET PO SCH (21:00)
[2022-11-24] MEDS ORDERED: ATORVASTATIN 20 MG TAB PO SCH (21:00)
[2022-11-24] MEDS ORDERED: ENOXAPARIN 100 MG/ML SYR SQ SCH ×2 (21:00)
[2022-11-24] MEDS: HYDRALAZINE HCL 25 MG TABLET PO SCH (21:56)
[2022-11-24] MEDS: CEFAZOLIN SODIUM 1 GM/VIAL IVPB SCH (21:56)
[2022-11-24] MEDS: methocarbamoL 500 MG TAB PO SCH (21:56)
[2022-11-24] MEDS: GABAPENTIN 100 MG CAP PO SCH (21:57)
[2022-11-24] MEDS: carvediloL 12.5 MG TAB PO SCH (21:57)
[2022-11-25 03:06] LABS: Renal Epithelial <5 /HPF (None Seen); Specific Gravity > 1.030 (1.005-1.030); Transitional Epithelial <5 /HPF (None Seen); Urine Bacteria None Seen /HPF (<20); Urine Bilirubin NEGATIVE (Negative); Urine Blood 1+ (Negative); Urine Clarity Clear (Clear); Urine Color Light-Yellow (Yellow); Urine Crystals Unidentified Few /HPF (None Seen); Urine Glucose NEGATIVE (Negative); Urine Mucus Slight /HPF (None Seen); Urine Protein 1+ (Negative); Urine RBC >50 /HPF (None Seen); Urine Urobilinogen Normal (Normal)
[2022-11-25 04:41] LABS: Absolute Lymphocytes (CBC) 0.8 K/uL (0.7-4.9); Hematocrit 32.4 % (39.6-49.0); Lymphocytes % 38.3 % (15.3-44.8); MCV 87.2 fL (80-100); MPV 7.5 fL (7.6-11.3); RBC Red Blood Cell Count 3.72 M/uL (4.33-5.43)
[2022-11-25 05:19] LABS: AST/SGOT 17 U/L (15-37); Albumin 2.8 g/dL (3.4-5.0); Alkaline Phosphatase 76 U/L (45-117); BUN Blood Urea Nitrogen 20 mg/dL (7-18); Bicarbonate 24 mmol/L (21-32); Bilirubin Total 0.4 mg/dL (0.2-1.0); Glomerular Filtration Rate 71 ml/min (=/>90); Glucose Level 205 mg/dL (74-106); Magnesium 1.9 mg/dL (1.6-2.4); Phosphorus 1.7 mg/dL (2.5-4.9); Potassium 4.2 mmol/L (3.5-5.1); Protein, Total 6.2 g/dL (6.4-8.2); Sodium Level 139 mmol/L (136-145)
[2022-11-25 05:24] LABS: ALT/SGPT < 10 U/L (16-61)
[2022-11-25] MEDS ORDERED: NA CHLORIDE 0.9% 50 ML ONE (05:35)
[2022-11-25] MEDS: HYDRALAZINE HCL 25 MG TABLET PO SCH (05:37)
[2022-11-25] MEDS: CEFAZOLIN SODIUM 1 GM/VIAL IVPB SCH (05:37)
[2022-11-25] MEDS: POTASS/SODIUM PHOSPHATE 1 PKT POWD.PACK PO SCH ×3 (05:38→11:11)
[2022-11-25] MEDS ORDERED: ENOXAPARIN 100 MG/ML SYR SQ SCH (06:00)
[2022-11-25 08:32] VITALS: O2SAT 92
[2022-11-25 08:36] VITALS: BP 164/75; TEMP 97.1
[2022-11-25] MEDS: carvediloL 12.5 MG TAB PO SCH (09:00)
[2022-11-25] MEDS ORDERED: POTASSIUM CL SA 10 MEQ TAB PO SCH (09:00)
[2022-11-25] MEDS ORDERED: AMLODIPINE 10 MG TAB PO SCH (09:00)
[2022-11-25] MEDS: GABAPENTIN 100 MG CAP PO SCH (09:00)
[2022-11-25] MEDS ORDERED: lisinopriL 20 MG TAB PO SCH (09:00)
[2022-11-25] MEDS: methocarbamoL 500 MG TAB PO SCH (09:00)
[2022-11-25] MEDS ORDERED: guaiFENesin 100 MG/5 ML UCUP PO PRN (09:57)
[2022-11-25] MEDS ORDERED: FUROSEMIDE 40 MG/4 ML VIAL IV SCH (09:59)
--- NOTE | 2022-11-25 10:40 | P.DS ---
Admission Date: 11/24/22 Discharge Date: 11/25/22 Disposition: TRANSFER TO [facility] Discharge Condition: FAIR Reason for Admission: Malaise - Problems (1) Acute deep vein thrombosis (DVT) of lower extremity Current Visit: Yes Status: Acute (2) COVID-19 virus infection Current Visit: Yes Status: Acute (3) Chronic systolic heart failure Current Visit: Yes Status: Acute (4) HTN (hypertension) Current Visit: No Status: Acute Qualifiers: Hypertension type: essential hypertension Brief History of Present Illness: 77-year-old gentleman with a history of chronic systolic heart failure, status post pacemaker/AICD, recent right knee surgery in [facility] for rehab was transferred from [place] to the emergency department due to general feeling of unwell. He tested positive for COVID-19 in the ED. Patient denies any shortness of breath or cough or chest pain. He also denied any fever. Patient D-dimer noted to be elevated in the ED. Venous Doppler of the lower extremities demonstrated nonocclusive thrombus in the right femoral vein. 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 No acute infiltrate. His oxygen saturation was ranging from 90 to 92% on room air. Patient placed on oxygen by nasal cannula. He has no leukocytosis, no sepsis. Patient was hospitalized for further management. Hospital Course: Patient placed under observation on the medical floor. He was treated with full dose Lovenox for right lower extremity DVT. Patient was asymptomatic during the hospital stay. He was not hypoxic. He has been asymptomatic from the COVID-19 infection, vitals have been stable. He was evaluated by physical therapy. Patient is clinically stable for discharge back to SNF for rehab. He is prescribed Eliquis DVT dose. Other medications resumed on discharge. Noted patient has been on Ancef for pyogenic arthritis which was continued on discharge. He was supposed to complete antibiotics on 12/16/2022. Vital Signs/Physical Exam: Temp Pulse Resp BP Pulse Ox 97.1 F 60 19 164/75 H 96 11/25/22 08:00 11/25/22 09:01 11/25/22 08:00 11/25/22 09:01 11/25/22 08:00 General: Alert, In no apparent distress, Oriented x3, Obese HEENT: Mucous membr. moist/pink Neck: Supple, JVD not distended Respiratory: Clear to auscultation bilaterally, Normal air movement Cardiovascular: No edema, Regular rate/rhythm, Normal S1 S2 Gastrointestinal: Soft and benign, Non-distended, No tenderness Musculoskeletal: No swelling Integumentary: Other (Right knee surgery sutures in place. Wound looks clean) Neurological: Normal strength at 5/5 x4 extr Laboratory Data at Discharge: WBC 2.20 K/uL (4.3-10.9) L 11/25/22 04:26 Hgb 10.9 g/dL (13.6-17.9) L 11/25/22 04:26 Hct 32.4 % (39.6-49.0) L 11/25/22 04:26 Plt Count 169 K/uL (152-406) 11/25/22 04:26 PT 11.7 SECONDS (9.5-12.5) 11/24/22 09:58 INR 1.06 11/24/22 09:58 Sodium 139 mmol/L (136-145) 11/25/22 04:26 Potassium 4.2 mmol/L (3.5-5.1) D 11/25/22 04:26 BUN 20 mg/dL (7-18) H 11/25/22 04:26 Creatinine 1.06 mg/dL (0.70-1.30) 11/25/22 04:26 Glucose 205 mg/dL (74-106) H 11/25/22 04:26 Phosphorus 1.7 mg/dL (2.5-4.9) L 11/25/22 04:26 Magnesium 1.9 mg/dL (1.6-2.4) 11/25/22 04:26 Total Bilirubin 0.4 mg/dL (0.2-1.0) 11/25/22 04:26 AST 17 U/L (15-37) 11/25/22 04:26 ALT < 10 U/L (16-61) L 11/25/22 04:26 Alkaline Phosphatase 76 U/L (45-117) 11/25/22 04:26 Lipase 147 U/L (73-393) 11/24/22 09:58 Home Medications: Acetaminophen [Tylenol] 650 mg PO Q8HP PRN 11/24/22 Albuterol Sulfate [Proair Hfa] 2 puff IH Q6HP PRN 11/24/22 Amlodipine Besylate 10 mg PO DAILY 11/24/22 Ascorbic Acid [Vitamin C*] 500 mg PO BID 11/24/22 Aspirin Chewable [Aspirin Chewable*] 81 mg PO DAILY 11/24/22 Atorvastatin Calcium [Lipitor*] 20 mg PO BEDTIME 11/24/22 Buspirone HCl [Buspar] 10 mg PO BID 11/24/22 Carvedilol [Coreg] 12.5 mg PO BID 11/24/22 Cefazolin [Cefazolin Sodium*] 1 gm IV Q8H 11/24/22 Cholecalciferol (Vitamin D3) [Vitamin D3] 25 mcg PO DAILY 11/24/22 Clonidine [Catapres-Tts 1] 1 each TD Q7D 11/24/22 Codeine/APAP [Tylenol #3*] 1 tab PO Q12HP PRN 11/24/22 Fluticasone Propionate [Flonase Allergy Relief] 1 spray NS BID 11/24/22 Gabapentin [Neurontin*] 100 mg PO BID 11/24/22 Guaifenesin [Cough Syrup] 10 ml PO Q4HP PRN 11/24/22 Hydralazine HCl 100 mg PO Q8H 11/24/22 Pantoprazole [Protonix Tab*] 40 mg PO BEDTIME 11/24/22 Potassium Chloride 10 meq PO DAILY 11/24/22 Sennosides 2 tab PO BEDTIME 11/24/22 Simethicone [Mylicon*] 80 mg PO Q8HP 11/24/22 Sodium Chloride 0.9 % (Flush) [[place] Sodium Chlor Flush] 10 ml IV Q8H 11/24/22 Zinc Gluconate [Zinc] 50 mg PO DAILY 11/24/22 lisinopriL [Lisinopril] 40 mg PO DAILY 11/24/22 methocarbamoL [Methocarbamol] 500 mg PO TID 11/24/22 Apixaban [Eliquis] 5 mg PO BID #74 tab 11/25/22 Cefazolin [Cefazolin Sodium*] 1 gm IVPB Q8H vial 11/25/22 New Medications: Apixaban [Eliquis] 5 mg PO BID #74 tab Diet: AHA Activity: Fall precautions Followup: NONE,NONE [Primary Care Provider] -
[2022-11-25] MEDS ORDERED: BUSPIRONE HCL 5 MG TABLET PO SCH (21:00)
[2022-11-25] MEDS ORDERED: SENOSIDES 8.6 MG TAB PO SCH (21:00)
[2022-11-25] MEDS ORDERED: ASCORBIC ACID 500 MG TABLET PO SCH (21:00)
[2022-11-25] MEDS ORDERED: APIXABAN 5 MG TABLET PO SCH (21:00)
[2022-11-25] MEDS ORDERED: HOME MED 1 EA UNK (Fluticasone Propionate [Flonase Allergy Relief] 9.9 ML Spray.Susp) NAS SCH (21:00)
[2022-11-26] MEDS ORDERED: VITAMIN D 1000 UNIT TAB PO SCH (09:00)
[2022-11-26] MEDS ORDERED: CHOLECALCIFEROL 25 MCG PO SCH (09:00)
[2022-11-26] MEDS ORDERED: ASPIRIN 81 MG CHEWABLE TABLET PO SCH (09:00)
[2022-11-26] MEDS ORDERED: ZINC SULFATE 220 MG CAP PO SCH (09:00)
--- NOTE | 2022-11-26 17:03 | EKG ---
Test Date: 2022-11-24 Test Time: 09:46:53 Stroboscope Operator: LUCIA MEASUREMENT RESULTS: Intervals: Rate: 60 MS: 80 QRSD: 186 QT: 498 QTc: 498 Hortense: P: MS: 80 QRS: -80 T: 56 INTERPRETIVE STATEMENTS: AV sequential or dual chamber electronic pacemaker Compared to ECG 11/24/2022 09:46:10 No significant changes Electronically Signed On 11-26-22 16:58:07 CHILD NUTRITION MANAGER by Lg Silvestre
[2022-11-28] MEDS ORDERED: CLONIDINE 0.1 MG/PATCH TD SCH (09:00)
== END 2022-11-25 12:30 ==
LOC: ER 09:23 → ERHOLD 12:42 → 2ND 17:38
PROVIDERS: ADMIT Internal Medicine; ATTEND Internal Medicine
DX: I82.4Z3 Acute embolism and thrombosis of unspecified deep veins of distal lower extremity, bilateral (principal); U07.1 COVID-19; I50.22 Chronic systolic (congestive) heart failure; I10 Essential (primary) hypertension; Z95.810 Presence of automatic (implantable) cardiac defibrillator; Z88.2 Allergy status to sulfonamides; Z88.7 Allergy status to serum and vaccine; Z88.1 Allergy status to other antibiotic agents
CPT/HCPCS: 93005; 87040 ×2; 85025 ×2; 81001; 80048; 36415; 83735 ×2; 84100; 85610; 85379; 80076; 83605; 81003; 84484; 83690; 80053; 83880; 0240U; 86140; 71275; 71045; 93970; 97162; 96375; 96372; 96374; 99285; Q9967; J7614; J1940; J2543; J7644; J1650 ×2; J7030 ×2; J2930; J0690 ×2; G0378

== ENCOUNTER 2023-06-15 09:54 | Inpatient (IN) | payer OTHER ==
[2023-06-15] MEDS ORDERED: ACETAMINOPHEN 325 MG TABLET ONE (10:29)
[2023-06-15] MEDS ORDERED: CEFEPIME 2 GM VIAL ONE (10:29)
[2023-06-15] MEDS ORDERED: NA CHLORIDE 0.9% 1,000 ML ONE ×2 (10:29→15:18)
[2023-06-15 10:39] LABS: Absolute Lymphocytes (CBC) 0.4 K/uL (0.7-4.9); Hematocrit 37.6 % (39.6-49.0); Lymphocytes % 4.6 % (15.3-44.8); MCV 89.8 fL (80-100); MPV 7.8 fL (7.6-11.3); Platelets 180 thou/uL (152-406); RBC Red Blood Cell Count 4.19 M/uL (4.33-5.43)
[2023-06-15 10:54] LABS: Albumin 3.4 g/dL (3.4-5.0); Protein, Total 6.7 g/dL (6.4-8.2)
[2023-06-15 10:56] LABS: Protime INR 1.15
--- NOTE | 2023-06-15 10:58 | RAD REPORT ---
EXAM DESCRIPTION: RAD - Chest Single View - 06/15/2023 10:53 am CLINICAL HISTORY: COUGH COMPARISON: Chest Single View dated 11/24/2022; Chest Single View dated 04/20/2021; Chest Single View dated 07/08/2020; Chest Single View dated 07/04/2020 FINDINGS: Lines: None. Lungs: No evidence of edema or pneumonia. Pleural: No significant pleural effusions or pneumothorax. Cardiac: Cardiomegaly. Mediastinum: Within normal limits. Bones: No acute fractures. Fusion hardware in the lower thoracic and lumbar spine . Other: Pacemaker/ICD. IMPRESSION: No acute cardiopulmonary disease.
[2023-06-15 12:26] LABS: Specific Gravity 1.018 (1.005-1.030); Urine Bacteria <20 /HPF (<20); Urine Bilirubin NEGATIVE (Negative); Urine Blood Negative (Negative); Urine Clarity Extremely Turbid (Clear); Urine Color Yellow (Yellow); Urine Glucose NEGATIVE (Negative); Urine Mucus Slight /HPF (None Seen); Urine Protein 1+ (Negative); Urine RBC <5 /HPF (None Seen); Urine Urobilinogen Normal (Normal)
--- NOTE | 2023-06-15 12:37 | ER ---
Nurse's Notes [facility] Name: Schuyler Farris Jr Age: 77 yrs Sex: Male : 1945 Arrival Date: 06/15/2023 Time: 09:54 Bed 4 Private MD: Diagnosis: Fever, sepsis Presentation: 06/15 09:56 Chief complaint: EMS states: CALLED BY HOME HEALTH FOR SOB. Coronavirus screen: At this bp time, the client does not indicate any symptoms associated with coronavirus-19. Ebola Screen: No symptoms or risks identified at this time. Initial Sepsis Screen: Does the patient meet any 2 criteria? Temp <36.0*C (96.8*F)) or > 38.3*C (100.9*F). No. Patient's initial sepsis screen is negative. Does the patient have a suspected source of infection? Yes: Productive cough/pneumonia. Risk Assessment: Do you want to hurt yourself or someone else? Patient reports no desire to harm self or others. Onset of symptoms is unknown. Care prior to arrival: IV initiated. 20 GA, in the left antecubital area, Oxygen administered. via nasal cannula. 09:56 Method Of Arrival: [facility] bp 09:56 Acuity: JOSE 3 bp Triage Assessment: 09:58 General: Appears ill, Behavior is calm, cooperative, appropriate for age. Pain: Denies bp pain. EENT: No deficits noted. Neuro: No deficits noted. Cardiovascular: Rhythm is Respiratory: No deficits noted. GI: No signs and/or symptoms were reported involving the gastrointestinal system. : No signs and/or symptoms were reported regarding the genitourinary system. Derm: No deficits noted. Musculoskeletal: No deficits noted. Historical: - Allergies: 09:58 Bactrim; bp 09:58 Tetanus Vaccines \T\ Toxoid; bp - PMHx: 09:58 Angina; Hyperlipidemia; CAD; pacemaker/defibrilator; Hypertension; CHF; Myocardial bp infarction; - Immunization history:: Adult Immunizations up to date. - Social history:: Smoking status: unknown. Screenin:00 [facility] ED Fall Risk Assessment (Adult) History of falling in the last 3 months, bp including since admission No falls in past 3 months (0 pts). Abuse screen: Denies threats or abuse. Denies injuries from another. Nutritional screening: No deficits noted. Tuberculosis screening: No symptoms or risk factors identified. Assessment: 09:59 General: SEE TRIAGE NOTE. bp Vital Signs: 09:56 BP 140 / 75; Pulse 75; Resp 20; Temp 101.2; Pulse Ox 88% on R/A; Weight 108 kg; Height bp 6 ft. 4 in. ; 10:58 BP 147 / 72; Pulse 68; Resp 18; Pulse Ox 98% on 2 lpm NC; ko1 12:40 BP 131 / 62; Pulse 61; Resp 15; Temp 99; Pulse Ox 97% ; bp 09:56 Body Mass Index 28.98 (108.00 kg, 193.04 cm) bp ED Course: 09:55 Patient arrived in ED. ko1 09:56 Jeb Watson, LIZ is Primary Nurse. bp 09:58 Triage completed. bp 09:58 Arm band placed on. bp 09:59 Maintain EMS IV. Dressing intact. Good blood return noted. Site clean \T\ dry. Gauge \T\ bp site: 20 GA LEFT AC. 10:00 Patient has correct armband on for positive identification. Bed in low position. Call bp light in reach. Side rails up X2. Client placed on continuous cardiac and pulse oximetry monitoring. NIBP monitoring applied. 10:01 Ventura Marie MD is Attending Physician. sp3 10:18 Inserted saline lock: 18 gauge in right antecubital area, using aseptic technique. ds4 Blood collected. 10:55 Chest Single View XRAY In Process Unspecified. EDMS 12:37 Cong Gibson MD is Hospitalizing Provider. sp3 14:18 Patel cath inserted, using sterile technique, 16 Fr., by ks, balloon inflated, to bp gravity drainage. 16:51 No provider procedures requiring assistance completed. Patient admitted, IV remains in bp place. Administered Medications: 10:32 Drug: NS 0.9% IV 1000 ml Route: IV; Rate: 1 bolus; Site: left antecubital; bp 10:32 Drug: Acetaminophen PO 650 mg Route: PO; bp 10:32 Drug: Cefepime IVPB 2 grams Route: IVPB; Rate: 200 ml/hr; Infused Over: 30 mins; Site: bp left antecubital; Outcome: 12:37 Decision to Hospitalize by Provider. sp3 16:51 Admitted to ER Hold. Please see 6APT for further documentation. bp 16:51 Condition: stable 16:51 Instructed on the need for admit. 17:43 Patient left the ED. bp Signatures: Dispatcher [employer] EDMS Pola Nelson ds4 Jeb Watson, RN RN bp Ventura Marie MD MD sp3 Kriss Azevedo RN RN ko1 Corrections: (The following items were deleted from the chart) 13:02 12:40 BP 131 / 62; Pulse 61bpm; Resp 15bpm; Pulse Ox 97%; bp bp 16:47 09:56 BP 140 / 75; Pulse 75bpm; Resp 20bpm; Pulse Ox 88% RA; Temp 101.2F; bp bp
--- NOTE | 2023-06-15 12:37 | EDPHYS ---
Physician Documentation [facility] Name: Schuyler Farris Jr Age: 77 yrs Sex: Male : 1945 Arrival Date: 06/15/2023 Time: 09:54 Bed 4 Private MD: ED Physician Ventura Marie HPI: 06/15 10:11 This 77 yrs old Unknown Male presents to ER via EMS with complaints of Cough, fever, sp3 foul-smelling urine. 10:11 77-year-old male with multiple medical problems including hypertension, CAD status post sp3 pacemaker, bedbound with indwelling Patel who lives at home presents to the ED after being evaluated by home health for fever, cough, foul-smelling urine. Patient feels weak. No other symptoms including chest pain, back pain, rash, neurological symptoms, or any other items on ROS at this time.. Historical: - Allergies: 09:58 Bactrim; bp 09:58 Tetanus Vaccines \T\ Toxoid; bp - PMHx: 09:58 Angina; Hyperlipidemia; CAD; pacemaker/defibrilator; Hypertension; CHF; Myocardial bp infarction; - Immunization history:: Adult Immunizations up to date. - Social history:: Smoking status: unknown. ROS: 10:12 Eyes: Negative for injury, pain, redness, and discharge, ENT: Negative for injury, sp3 pain, and discharge, Neck: Negative for injury, pain, and swelling, Cardiovascular: Negative for chest pain, palpitations, and edema, Abdomen/GI: Negative for abdominal pain, nausea, vomiting, diarrhea, and constipation, Back: Negative for injury and pain, MS/Extremity: Negative for injury and deformity, Skin: Negative for injury, rash, and discoloration, Neuro: Negative for headache, weakness, numbness, tingling, and seizure, Psych: Negative for depression, anxiety, suicide ideation, homicidal ideation, and hallucinations, Allergy/Immunology: Negative for hives, rash, and allergies, Endocrine: Negative for neck swelling, polydipsia, polyuria, polyphagia, and marked weight changes. 10:12 All other systems are negative. Exam: 10:12 Head/Face: Normocephalic, atraumatic. Eyes: Pupils equal round and reactive to light, sp3 extra-ocular motions intact. Lids and lashes normal. Conjunctiva and sclera are non-icteric and not injected. Cornea within normal limits. Periorbital areas with no swelling, redness, or edema. ENT: Nares patent. No nasal discharge, no septal abnormalities noted. External auditory canals are clear. Oropharynx with no redness, swelling, or masses, exudates, or evidence of obstruction, uvula midline. Mucous membranes moist. Neck: Trachea midline, no thyromegaly or masses palpated, and no cervical lymphadenopathy. Supple, full range of motion without nuchal rigidity, or vertebral point tenderness. No Meningismus. Chest/axilla: Normal chest wall appearance and motion. Nontender with no deformity. No lesions are appreciated. Abdomen/GI: Soft, non-tender, with normal bowel sounds. No distension or tympany. No guarding or rebound. No evidence of tenderness throughout. Skin: Warm, dry with normal turgor. Normal color with no rashes, no lesions, and no evidence of cellulitis. Neuro: Awake and alert, GCS 15, oriented to person, place, time, and situation. Cranial nerves II-XII grossly intact. Motor strength 5/5 in all extremities. Sensory grossly intact. Cerebellar exam normal. Normal gait. Psych: Awake, alert, with orientation to person, place and time. Behavior, mood, and affect are within normal limits. 10:12 Respiratory: Active cough noted.. 10:19 ECG was reviewed by the Attending Physician. EKG demonstrates paced rhythm at 78 bpm sp3 with adequate capture. Vital Signs: 09:56 BP 140 / 75; Pulse 75; Resp 20; Temp 101.2; Pulse Ox 88% on R/A; Weight 108 kg; Height bp 6 ft. 4 in. ; 10:58 BP 147 / 72; Pulse 68; Resp 18; Pulse Ox 98% on 2 lpm NC; ko1 12:40 BP 131 / 62; Pulse 61; Resp 15; Temp 99; Pulse Ox 97% ; bp 09:56 Body Mass Index 28.98 (108.00 kg, 193.04 cm) bp MDM: 10:07 Patient medically screened. sp3 10:13 Data reviewed: vital signs, nurses notes, EMS record, lab test result(s), EKG, sp3 radiologic studies. ED course: 77-year-old male with fever, cough and urinary symptoms. Patient is septic given his temperature and presentation. Differential diagnosis includes pneumonia, UTI, pyelonephritis, COVID-19, influenza, systemic sepsis. There is no shock or shock type symptoms present currently. We will administer IV fluids and cefepime IV with cultures pending along with laboratory values, urine analysis, chest x-ray. Will admit to Dr. Gibson hospitalist since he is covering currently.. 12:36 ED course: WBC count is normal, urinalysis demonstrates no significant findings there sp3 is leukocyte esterase positive. Chest x-ray demonstrates no pneumonia. Patient may have viral syndrome however given his complex medical history we will continue IV antibiotics and await cultures with ultimate disposition by inpatient team.. 06/15 10:06 Order name: Blood Culture Adult (2) sp3 06/15 10:06 Order name: CBC with Diff; Complete Time: 11:17 sp3 06/15 10:06 Order name: CMP; Complete Time: 10:55 sp3 06/15 10:06 Order name: Lactate w/ 2H reflex if indic.; Complete Time: 10:55 sp3 06/15 10:06 Order name: Protime (+inr); Complete Time: 11:17 sp3 06/15 10:06 Order name: Ptt, Activated; Complete Time: 11:17 sp3 06/15 10:06 Order name: Urinalysis w/ reflexes; Complete Time: 12:35 sp3 06/15 10:12 Order name: Flu; Complete Time: 12:35 sp3 06/15 10:12 Order name: SARS-COV-2 RT PCR; Complete Time: 11:17 sp3 06/15 13:44 Order name: Hemoglobin A1c EDID 06/15 13:44 Order name: Lipid Profile EDMS 06/15 13:44 Order name: Thyroid Stimulating Hormone EDMS 06/15 13:44 Order name: CBC with Automated Diff EDMS 06/15 13:44 Order name: CBC with Automated Diff EDMS 06/15 13:44 Order name: CBC with Automated Diff EDMS 06/15 13:44 Order name: CBC with Automated Diff EDMS 06/15 13:44 Order name: Comprehensive Metabolic Panel EDMS 06/15 13:44 Order name: Comprehensive Metabolic Panel EDMS 06/15 13:44 Order name: Comprehensive Metabolic Panel EDMS 06/15 13:44 Order name: Comprehensive Metabolic Panel EDMS 06/15 10:06 Order name: Chest Single View XRAY; Complete Time: 11:17 sp3 06/15 10:06 Order name: EKG; Complete Time: 10:07 sp3 06/15 13:44 Order name: CONS Physician Consult [facility] 06/15 13:44 Order name: Physical Therapy Consult [facility] 06/15 13:44 Order name: 60g Consistent Carbohydrate (ADA 1800/2000) EDID 06/15 10:06 Order name: Cardiac monitoring; Complete Time: 10:13 sp3 06/15 10:06 Order name: EKG - Nurse/Tech; Complete Time: 10:13 sp3 06/15 10:06 Order name: IV Saline Lock - Large Bore; Complete Time: 10:13 sp3 06/15 10:06 Order name: Labs collected and sent; Complete Time: 10:13 sp3 06/15 10:06 Order name: O2 Per Protocol; Complete Time: 10:13 sp3 06/15 10:06 Order name: O2 Sat Monitoring; Complete Time: 10:13 sp3 06/15 10:06 Order name: Vital Signs; Complete Time: 10:13 sp3 Administered Medications: 10:32 Drug: NS 0.9% IV 1000 ml Route: IV; Rate: 1 bolus; Site: left antecubital; bp 10:32 Drug: Acetaminophen PO 650 mg Route: PO; bp 10:32 Drug: Cefepime IVPB 2 grams Route: IVPB; Rate: 200 ml/hr; Infused Over: 30 mins; Site: bp left antecubital; Disposition Summary: 06/15/23 12:37 Hospitalization Ordered Hospitalization Status: Observation sp3 Provider: Cong Gibson spCatrachita Condition: Stable sp3 Problem: new sp3 Symptoms: have worsened sp3 Bed/Room Type: Standard sp3 Location: Telemetry/MedSurg (observation)(06/15/23 16:48) eb Room Assignment: 212(06/15/23 16:48) eb Diagnosis - Fever, sepsis sp3 Forms: - Medication Reconciliation Form sp3 - SBAR form sp3 - Leadership Thank You Letter sp3 Signatures: Dispatcher [employer] EDID Jeb Watson RN RN Marie Conway Setul, MD MD sp3 Corrections: (The following items were deleted from the chart) 15:02 12:37 Telemetry/MedSurg (observation) sp3 bp 15:02 12:37 sp3 bp 16:48 15:02 [facility] ER HOLD bp eb 16:48 15:02 ERHOLD- bp eb
[2023-06-15] MEDS ORDERED: ONDANSETRON 4 MG/2 ML VIAL IV PRN (13:37)
[2023-06-15] MEDS ORDERED: ALBUTEROL SULFATE AD IH PRN (13:43)
[2023-06-15] MEDS ORDERED: ACETAMINOPHEN 325 MG TABLET PO PRN (13:43)
--- NOTE | 2023-06-15 13:53 | P.HP ---
Certification for Inpatient Patient admitted to: Inpatient With expected LOS: >2 Midnights Patient will require the following post-hospital care: None Practitioner: I am a practitioner with admitting privileges, knowledge of patient current condition, hospital course, and medical plan of care. Services: Services provided to patient in accordance with Admission requirements found in Title 42 Section 412.3 of the Code of Federal Regulations Patient History Date of Service: 06/15/23 Primary Care Provider: unknown Reason for admission: UTI, bph History of Present Illness: Patient is a pleasant 77 year old with a pmh of htn, afib and chf. The patient has also been having some weakness in his left side since the start of the year. The patient was feeling weak and fell out of his bed this morning. EMS came and put him back in bed. However later this morning he was feeling nauseas, weak and fell again. The patient has been having difficulty urinating for the past few weeks. He has the feeling of needing to go and then not being able to. Indeed he has a uti. Will admit him as he is an elderly gentleman who lives alone. Allergies sulfamethoxazole [From Bactrim] Allergy (Verified 12/06/19 20:11) Itching/Hives/Rash tetanus toxoid, adsorbed Allergy (Verified 12/06/19 20:11) unknown trimethoprim [From Bactrim] Allergy (Verified 12/06/19 20:11) Itching/Hives/Rash Home Medications: Acetaminophen [Tylenol] 650 mg PO Q8HP PRN 11/24/22 Albuterol Sulfate [Proair Hfa] 2 puff IH Q6HP PRN 11/24/22 Amlodipine Besylate 10 mg PO DAILY 11/24/22 Ascorbic Acid [Vitamin C*] 500 mg PO BID 11/24/22 Aspirin Chewable [Aspirin Chewable*] 81 mg PO DAILY 11/24/22 Atorvastatin Calcium [Lipitor*] 20 mg PO BEDTIME 11/24/22 Buspirone HCl [Buspar] 10 mg PO BID 11/24/22 Carvedilol [Coreg] 12.5 mg PO BID 11/24/22 Cefazolin [Cefazolin Sodium*] 1 gm IV Q8H 11/24/22 Cholecalciferol (Vitamin D3) [Vitamin D3] 25 mcg PO DAILY 11/24/22 Clonidine [Catapres-Tts 1] 1 each TD Q7D 11/24/22 Codeine/APAP [Tylenol #3*] 1 tab PO Q12HP PRN 11/24/22 Fluticasone Propionate [Flonase Allergy Relief] 1 spray NS BID 11/24/22 Gabapentin [Neurontin*] 100 mg PO BID 11/24/22 Guaifenesin [Cough Syrup] 10 ml PO Q4HP PRN 11/24/22 Hydralazine HCl 100 mg PO Q8H 11/24/22 Pantoprazole [Protonix Tab*] 40 mg PO BEDTIME 11/24/22 Potassium Chloride 10 meq PO DAILY 11/24/22 Sennosides 2 tab PO BEDTIME 11/24/22 Simethicone [Mylicon*] 80 mg PO Q8HP 11/24/22 Sodium Chloride 0.9 % (Flush) [[place] Sodium Chlor Flush] 10 ml IV Q8H 11/24/22 Zinc Gluconate [Zinc] 50 mg PO DAILY 11/24/22 lisinopriL [Lisinopril] 40 mg PO DAILY 11/24/22 methocarbamoL [Methocarbamol] 500 mg PO TID 11/24/22 Apixaban [Eliquis] 5 mg PO BID #74 tab 11/25/22 Cefazolin [Cefazolin Sodium*] 1 gm IVPB Q8H vial 11/25/22 - Past Medical/Surgical History Diabetic: No -: Cardiomegaly -: Hypertension -: Pacemaker -: HLD -: CHF -: GERD -: Pacemaker -: Knee replacement x2 right -: back sx -: elbow sx left -: Right knee surgery-R/T Staph infection, hardware removed and spacer in plac - Family History Father -: Other (see notes) Notes: Aneurysm Mother -: Diabetes parents Notes: none as per pt - Social History Alcohol use: Yes CD- Drugs: No Caffeine use: Yes Review of Systems 10-point ROS is otherwise unremarkable General: Weakness Gastrointestinal: Nausea Genitourinary: Retention Physical Examination - Physical Exam General: Alert, In no apparent distress HEENT: Atraumatic, PERRLA, Mucous membr. moist/pink, EOMI, Sclerae nonicteric Neck: Supple, 2+ carotid pulse no bruit, No LAD, Without JVD or thyroid abnormality Respiratory: Clear to auscultation bilaterally, Normal air movement Cardiovascular: Regular rate/rhythm, Normal S1 S2 Gastrointestinal: Normal bowel sounds, No tenderness Musculoskeletal: No tenderness Integumentary: No rashes Neurological: Normal gait, Normal speech, Normal strength at 5/5 x4 extr, Normal tone, Normal affect Lymphatics: No axilla or inguinal lymphadenopathy - Studies Laboratory Data (last 24 hrs) 06/15/23 06/15/23 06/15/23 10:18 10:18 10:18 WBC 8.50 Hgb 12.6 L Hct 37.6 L Plt Count 180 PT 12.7 H INR 1.15 APTT 27.8 Sodium 138 Potassium 3.0 L BUN 14 Creatinine 1.17 Glucose 110 H Total Bilirubin 1.0 AST 14 L ALT 16 Alkaline Phosphatase 80 Microbiology Data (last 24 hrs): 06/15/23 10:30 Nasopharnyx Influenza Type A Antigen Screen - Final 06/15/23 10:30 Nasopharnyx Influenza Type B Antigen Screen - Final Assessment and Plan - Problems (Diagnosis) (1) UTI (urinary tract infection) Current Visit: Yes Status: Acute Plan: Patient has a uti the patient will be admitted and have him started on ceftriaxone. The patient may have this due to obstructive outflow Qualifiers: Urinary tract infection type: acute cystitis Hematuria presence: without hematuria Qualified Code(s): N30.00 - Acute cystitis without hematuria (2) BPH loc w urin obs/LUTS Current Visit: Yes Status: Chronic Plan: will put in a rodríguez and start him on tamusolin (3) Atrial fibrillation Current Visit: Yes Status: Acute Plan: continue eliquis and carvedilol. Will discuss with Dr. Silvestre. Due to his stroke risk we need to do an outpatient work up Qualifiers: Atrial fibrillation type: paroxysmal Qualified Code(s): I48.0 - Paroxysmal atrial fibrillation (4) Chronic systolic heart failure Current Visit: No Status: Chronic Plan: will continue his meds. Hydrate gentle for the uti (5) HTN (hypertension) Current Visit: No Status: Acute Plan: restart his home medications Qualifiers: Hypertension type: primary hypertension Qualified Code(s): I10 - Essential (primary) hypertension Discharge Plan: Home Plan to discharge in: 48 Hours - Advance Directives Does patient have a Living Will: No Does patient have a Durable POA for Healthcare: No - Code Status/Comfort Care Code Status Assessed: Yes Code Status: Do Not Attempt Resuscitat Physician Review: Patient Assessed, Agree with Above Assessment and Plan Critical Care: No Time Spent Managing Pts Care (In Minutes): 45
[2023-06-15] MEDS: methocarbamoL 500 MG TAB PO SCH ×2 (14:00→20:29)
[2023-06-15] MEDS: NA CHLORIDE 0.9% 1,000 ML IV SCH (14:00)
[2023-06-15] MEDS ORDERED: carvediloL 6.25 MG TAB ONE (15:17)
[2023-06-15] MEDS ORDERED: methocarbamoL 500 MG TAB ONE (15:18)
[2023-06-15 16:51] VITALS: BMI 28.5
[2023-06-15] MEDS: carvediloL 12.5 MG TAB PO SCH (17:00)
[2023-06-15] MEDS ORDERED: ENOXAPARIN 40 MG/0.4 ML SQ SCH (17:00)
[2023-06-15] MEDS: ATORVASTATIN 20 MG TAB PO SCH (20:29)
[2023-06-15] MEDS: APIXABAN 5 MG TABLET PO SCH (20:29)
[2023-06-15] MEDS: BUSPIRONE HCL 5 MG TABLET PO SCH (20:29)
[2023-06-15] MEDS: GABAPENTIN 100 MG CAP PO SCH (20:29)
[2023-06-15] MEDS: ASCORBIC ACID 500 MG TABLET PO SCH (20:31)
[2023-06-16] MEDS: PANTOPRAZOLE 40MG TABLET PO SCH (06:08)
[2023-06-16 06:48] LABS: Absolute Lymphocytes (CBC) 0.8 K/uL (0.7-4.9); Hematocrit 34.3 % (39.6-49.0); Lymphocytes % 18.9 % (15.3-44.8); MCV 89.3 fL (80-100); MPV 7.8 fL (7.6-11.3); Platelets 153 thou/uL (152-406); RBC Red Blood Cell Count 3.84 M/uL (4.33-5.43)
[2023-06-16 07:16] LABS: Albumin 2.8 g/dL (3.4-5.0); Bilirubin Total 0.5 mg/dL (0.2-1.0); Potassium 3.2 mEq/L (3.5-5.1); Protein, Total 6.1 g/dL (6.4-8.2); Thyroid Stimulating Hormone 0.588 uIU/mL (0.358-3.740)
[2023-06-16] MEDS ORDERED: POTASSIUM 25 MEQ EFFERV TAB PO ONE (09:00)
[2023-06-16] MEDS: ASCORBIC ACID 500 MG TABLET PO SCH ×2 (09:00→21:15)
[2023-06-16] MEDS ORDERED: SIMETHICONE 80 MG TAB PO PRN (09:00)
[2023-06-16] MEDS: AMLODIPINE 10 MG TAB PO SCH (09:29)
[2023-06-16] MEDS: GABAPENTIN 100 MG CAP PO SCH ×2 (09:29→21:14)
[2023-06-16] MEDS: VITAMIN D 1000 UNIT TAB PO SCH (09:29)
[2023-06-16] MEDS: POTASSIUM CL SA 10 MEQ TAB PO SCH (09:29)
[2023-06-16] MEDS: HYDRALAZINE HCL 25 MG TABLET PO SCH ×2 (09:29→16:16)
[2023-06-16] MEDS: methocarbamoL 500 MG TAB PO SCH ×3 (09:30→21:15)
[2023-06-16] MEDS: ASPIRIN 81 MG CHEWABLE TABLET PO SCH (09:30)
[2023-06-16] MEDS: carvediloL 12.5 MG TAB PO SCH ×2 (09:30→16:17)
[2023-06-16] MEDS: APIXABAN 5 MG TABLET PO SCH ×2 (09:30→21:15)
[2023-06-16] MEDS: CEFTRIAXONE 1,000 MG in NA CHLORIDE 0.9% 50 ML IVPB SCH (09:30)
[2023-06-16] MEDS: lisinopriL 20 MG TAB PO SCH (09:30)
[2023-06-16] MEDS: BUSPIRONE HCL 5 MG TABLET PO SCH ×2 (09:30→21:15)
[2023-06-16] MEDS: NA CHLORIDE 0.9% 1,000 ML IV SCH (09:37)
--- NOTE | 2023-06-16 17:59 | EKG ---
Test Date: 2023-06-15 Test Time: 10:17:09 [employer] Technician: SADIA MEASUREMENT RESULTS: Intervals: Rate: 78 MA: QRSD: 182 QT: 458 QTc: 522 [place]: P: -25 MA: QRS: 269 T: 77 INTERPRETIVE STATEMENTS: Ventricular-paced rhythm Biventricular pacemaker detected Abnormal ECG Compared to ECG 11/24/2022 09:46:53 AV dual-paced complex(es) or rhythm no longer present Electronically Signed On 06-16-23 17:56:53 CDT by Lg Silvestre
[2023-06-16] MEDS: SENOSIDES 8.6 MG TAB PO SCH (21:14)
[2023-06-16] MEDS: ATORVASTATIN 20 MG TAB PO SCH (21:14)
[2023-06-16] MEDS: FLUTICASONE 50MCG NASAL SPRAY NAS SCH (22:12)
[2023-06-17] MEDS: HYDRALAZINE HCL 25 MG TABLET PO SCH ×3 (01:22→16:18)
[2023-06-17] MEDS: PANTOPRAZOLE 40MG TABLET PO SCH (06:30)
[2023-06-17 07:08] LABS: Absolute Lymphocytes (CBC) 1.3 K/uL (0.7-4.9); Hematocrit 34.4 % (39.6-49.0); Lymphocytes % 31.8 % (15.3-44.8); MCV 89.2 fL (80-100); MPV 7.6 fL (7.6-11.3); Platelets 157 thou/uL (152-406); RBC Red Blood Cell Count 3.85 M/uL (4.33-5.43)
[2023-06-17 07:29] LABS: Albumin 2.9 g/dL (3.4-5.0); Bilirubin Total 0.3 mg/dL (0.2-1.0); Potassium 3.3 mEq/L (3.5-5.1); Protein, Total 5.9 g/dL (6.4-8.2)
[2023-06-17] MEDS ORDERED: LEVALBUTEROL 0.63 MG/3 ML NEB NEB ONE (08:39)
[2023-06-17] MEDS ORDERED: ACETYLCYST 20% 4 ML VIAL IH ONE (08:45)
[2023-06-17] MEDS: FLUTICASONE 50MCG NASAL SPRAY NAS SCH (09:11)
[2023-06-17] MEDS: VITAMIN D 1000 UNIT TAB PO SCH (09:12)
[2023-06-17] MEDS: BUSPIRONE HCL 5 MG TABLET PO SCH ×2 (09:12→20:18)
[2023-06-17] MEDS: AMLODIPINE 10 MG TAB PO SCH (09:12)
[2023-06-17] MEDS: lisinopriL 20 MG TAB PO SCH (09:12)
[2023-06-17] MEDS: APIXABAN 5 MG TABLET PO SCH ×2 (09:12→20:18)
[2023-06-17] MEDS: GABAPENTIN 100 MG CAP PO SCH ×2 (09:12→20:18)
[2023-06-17] MEDS: POTASSIUM CL SA 10 MEQ TAB PO SCH (09:12)
[2023-06-17] MEDS: ASPIRIN 81 MG CHEWABLE TABLET PO SCH (09:12)
[2023-06-17] MEDS: ASCORBIC ACID 500 MG TABLET PO SCH ×2 (09:12→20:18)
[2023-06-17] MEDS: carvediloL 12.5 MG TAB PO SCH ×2 (09:12→16:18)
[2023-06-17] MEDS: CEFTRIAXONE 1,000 MG in NA CHLORIDE 0.9% 50 ML IVPB SCH (09:13)
[2023-06-17] MEDS: methocarbamoL 500 MG TAB PO SCH ×3 (09:13→20:18)
--- NOTE | 2023-06-17 09:28 | P.PN ---
Subjective Date of Service: 06/16/23 Primary Care Provider: unknown Chief Complaint: UTI, bph Subjective: No new changes Review of Systems 10-point ROS is otherwise unremarkable General: Weakness Physical Examination - Vital Signs Temperature: 97.8 F Blood Pressure: 183/84 Pulse: 60 Respirations: 17 Pulse Ox (%): 91 - Physical Exam General: Alert, In no apparent distress HEENT: Atraumatic, PERRLA, EOMI Neck: Supple, JVD not distended Respiratory: Clear to auscultation bilaterally, Normal air movement Cardiovascular: Regular rate/rhythm, Normal S1 S2 Gastrointestinal: Normal bowel sounds, No tenderness Musculoskeletal: No tenderness Integumentary: No rashes Neurological: Normal speech, Normal tone, Normal affect Lymphatics: No axilla or inguinal lymphadenopathy Assessment And Plan - Current Problems (Diagnosis) (1) UTI (urinary tract infection) Current Visit: Yes Status: Acute Plan: Patient has a uti the patient will be admitted and have him started on ceftriaxone. The patient may have this due to obstructive outflow 8.21 vitals and wbc stable Qualifiers: Urinary tract infection type: acute cystitis Hematuria presence: without hematuria Qualified Code(s): N30.00 - Acute cystitis without hematuria (2) BPH loc w urin obs/LUTS Current Visit: Yes Status: Chronic Plan: will put in a rodríguez and start him on tamusolin (3) Atrial fibrillation Current Visit: Yes Status: Acute Plan: continue eliquis and carvedilol. Will discuss with Dr. Silvestre. Due to his stroke risk we need to do an outpatient work up Qualifiers: Atrial fibrillation type: paroxysmal Qualified Code(s): I48.0 - Paroxysmal atrial fibrillation (4) Chronic systolic heart failure Current Visit: No Status: Chronic Plan: will continue his meds. Hydrate gentle for the uti (5) HTN (hypertension) Current Visit: No Status: Acute Plan: restart his home medications Qualifiers: Hypertension type: primary hypertension Qualified Code(s): I10 - Essential (primary) hypertension Discharge Plan: Fdc Plan to discharge in: 24 Hours - Code Status/Comfort Care Code Status Assessed: No Physician Review: Patient Assessed, Agree with Above Assessment and Plan Critical Care: No Time Spent Managing PTS Care (In Minutes): 20
[2023-06-17] MEDS: LEVALBUTEROL 0.63 MG/3 ML NEB NEB SCH ×3 (13:08→20:30)
[2023-06-17] MEDS: BISACODYL E.C. 5 MG TAB PO SCH ×2 (13:15→20:18)
[2023-06-17] MEDS: SENOSIDES 8.6 MG TAB PO SCH (20:17)
[2023-06-17] MEDS: ATORVASTATIN 20 MG TAB PO SCH (20:18)
[2023-06-18] MEDS: HYDRALAZINE HCL 25 MG TABLET PO SCH ×2 (01:09→09:00)
[2023-06-18] MEDS: LEVALBUTEROL 0.63 MG/3 ML NEB NEB SCH ×2 (01:50→07:45)
[2023-06-18] MEDS: PANTOPRAZOLE 40MG TABLET PO SCH (05:35)
[2023-06-18 07:12] LABS: Absolute Lymphocytes (CBC) 1.6 K/uL (0.7-4.9); Hematocrit 35.7 % (39.6-49.0); Lymphocytes % 33.1 % (15.3-44.8); MCV 88.5 fL (80-100); MPV 7.6 fL (7.6-11.3); Platelets 198 thou/uL (152-406); RBC Red Blood Cell Count 4.03 M/uL (4.33-5.43)
[2023-06-18 07:28] LABS: Bilirubin Total 0.3 mg/dL (0.2-1.0); Potassium 3.2 mEq/L (3.5-5.1); Protein, Total 6.3 g/dL (6.4-8.2)
--- NOTE | 2023-06-18 08:27 | P.DS ---
Admission Date: 06/15/23 Discharge Date: 06/18/23 Primary Care Provider: unknown Disposition: ROUTINE DISCHARGE Discharge Condition: GOOD Reason for Admission: UTI, bph - Problems (1) UTI (urinary tract infection) Current Visit: Yes Status: Acute Qualifiers: Urinary tract infection type: acute cystitis Hematuria presence: without hematuria Qualified Code(s): N30.00 - Acute cystitis without hematuria (2) BPH loc w urin obs/LUTS Current Visit: Yes Status: Chronic (3) Atrial fibrillation Current Visit: Yes Status: Acute Qualifiers: Atrial fibrillation type: paroxysmal Qualified Code(s): I48.0 - Paroxysmal atrial fibrillation (4) Chronic systolic heart failure Current Visit: No Status: Chronic (5) HTN (hypertension) Current Visit: No Status: Acute Qualifiers: Hypertension type: primary hypertension Qualified Code(s): I10 - Essential (primary) hypertension Brief History of Present Illness: Patient is a pleasant 77 year old with a pmh of htn, afib and chf. The patient has also been having some weakness in his left side since the start of the year. The patient was feeling weak and fell out of his bed this morning. EMS came and put him back in bed. However later this morning he was feeling nauseas, weak and fell again. The patient has been having difficulty urinating for the past few weeks. He has the feeling of needing to go and then not being able to. Indeed he has a uti. Will admit him as he is an elderly gentleman who lives alone. Hospital Course: D/C held yesterday as the patient refused. He has a poor quality of life. Is bed bound, hard of hearing. Will get home health and PT for the patient. If he wants he can follow up with me. We can work on rehab. antidepressants and bph treatment. need to work on his hearing as well. To improve his quality of life. Vital Signs/Physical Exam: Temp Pulse Resp BP Pulse Ox 97.5 F 50 18 172/83 H 94 06/18/23 04:00 06/18/23 04:00 06/18/23 04:00 06/18/23 04:00 06/18/23 04:00 General: Alert, In no apparent distress HEENT: Atraumatic, PERRLA, EOMI Neck: Supple, JVD not distended Respiratory: Clear to auscultation bilaterally, Normal air movement Cardiovascular: Regular rate/rhythm, Normal S1 S2 Gastrointestinal: Normal bowel sounds, No tenderness Musculoskeletal: No tenderness Integumentary: No rashes Neurological: Normal speech, Normal tone, Normal affect Lymphatics: No axilla or inguinal lymphadenopathy Laboratory Data at Discharge: WBC 4.90 thou/uL (4.3-10.9) 06/18/23 06:47 Hgb 12.4 g/dL (13.6-17.9) L 06/18/23 06:47 Hct 35.7 % (39.6-49.0) L 06/18/23 06:47 Plt Count 198 thou/uL (152-406) D 06/18/23 06:47 PT 12.7 SECONDS (9.5-12.5) H 06/15/23 10:18 INR 1.15 06/15/23 10:18 APTT 27.8 SECONDS (24.3-36.9) 06/15/23 10:18 Sodium 139 mEq/L (136-145) 06/18/23 06:47 Potassium 3.2 mEq/L (3.5-5.1) L 06/18/23 06:47 BUN 20 mg/dL (7-18) H 06/18/23 06:47 Creatinine 1.10 mg/dL (0.70-1.30) 06/18/23 06:47 Glucose 90 mg/dL (74-106) 06/18/23 06:47 Total Bilirubin 0.3 mg/dL (0.2-1.0) 06/18/23 06:47 AST 15 U/L (15-37) 06/18/23 06:47 ALT 16 U/L (16-61) 06/18/23 06:47 Alkaline Phosphatase 70 U/L (45-117) 06/18/23 06:47 Triglycerides 47 mg/dL (<150) 06/16/23 06:35 Cholesterol 115 mg/dL (<200) 06/16/23 06:35 HDL Cholesterol 41 mg/dL (40-60) 06/16/23 06:35 Cholesterol/HDL Ratio 2.80 06/16/23 06:35 Home Medications: Acetaminophen [Tylenol] 650 mg PO Q8HP PRN 11/24/22 Albuterol Sulfate [Proair Hfa] 2 puff IH Q6HP PRN 11/24/22 Amlodipine Besylate 10 mg PO DAILY 11/24/22 Ascorbic Acid [Vitamin C*] 500 mg PO BID 11/24/22 Aspirin Chewable [Aspirin Chewable*] 81 mg PO DAILY 11/24/22 Atorvastatin Calcium [Lipitor*] 20 mg PO BEDTIME 11/24/22 Buspirone HCl [Buspar] 10 mg PO BID 11/24/22 Carvedilol [Coreg] 12.5 mg PO BID 11/24/22 Cefazolin [Cefazolin Sodium*] 1 gm IV Q8H 11/24/22 Cholecalciferol (Vitamin D3) [Vitamin D3] 25 mcg PO DAILY 11/24/22 Clonidine [Catapres-Tts 1] 1 each TD Q7D 11/24/22 Codeine/APAP [Tylenol #3*] 1 tab PO Q12HP PRN 11/24/22 Fluticasone Propionate [Flonase Allergy Relief] 1 spray NS BID 11/24/22 Gabapentin [Neurontin*] 100 mg PO BID 11/24/22 Guaifenesin [Cough Syrup] 10 ml PO Q4HP PRN 11/24/22 Hydralazine HCl 100 mg PO Q8H 11/24/22 Pantoprazole [Protonix Tab*] 40 mg PO BEDTIME 11/24/22 Potassium Chloride 10 meq PO DAILY 11/24/22 Sennosides 2 tab PO BEDTIME 11/24/22 Simethicone [Mylicon*] 80 mg PO Q8HP 11/24/22 Sodium Chloride 0.9 % (Flush) [[place] Sodium Chlor Flush] 10 ml IV Q8H 11/24/22 Zinc Gluconate [Zinc] 50 mg PO DAILY 11/24/22 lisinopriL [Lisinopril] 40 mg PO DAILY 11/24/22 methocarbamoL [Methocarbamol] 500 mg PO TID 11/24/22 Apixaban [Eliquis] 5 mg PO BID #74 tab 11/25/22 Cefazolin [Cefazolin Sodium*] 1 gm IVPB Q8H vial 11/25/22 Smz./Tmp. [Bactrim Ds 800 MG/160 MG] 1 tab PO BID 5 Days #10 tab 06/17/23 Tamsulosin [Flomax*] 0.4 mg PO BEDTIME 90 Days #90 tab 06/17/23 Albuterol Sulfate [Proair Hfa] 2 puff IH Q6HP PRN 30 Days #30 in 06/18/23 New Medications: Albuterol Sulfate [Proair Hfa] 2 puff IH Q6HP PRN 30 Days #30 in PRN Reason: Shortness Of Breath Smz./Tmp. [Bactrim Ds 800 MG/160 MG] 1 tab PO BID 5 Days #10 tab Tamsulosin [Flomax*] 0.4 mg PO BEDTIME 90 Days #90 tab Diet: Regular Activity: Ad kal Followup: NONE,NONE [Primary Care Provider] - Gen Vinson [ACTIVE - CAN ADMIT] - 1-2 Weeks Cong Gibson MD [ACTIVE - CAN ADMIT] - 1-2 Weeks (if the patient wants a new pcp) Time spent managing pt's care (in minutes): 30
[2023-06-18] MEDS: APIXABAN 5 MG TABLET PO SCH (08:59)
[2023-06-18] MEDS: VITAMIN D 1000 UNIT TAB PO SCH (08:59)
[2023-06-18] MEDS: FLUTICASONE 50MCG NASAL SPRAY NAS SCH (08:59)
[2023-06-18] MEDS: methocarbamoL 500 MG TAB PO SCH (08:59)
[2023-06-18] MEDS: BUSPIRONE HCL 5 MG TABLET PO SCH (08:59)
[2023-06-18] MEDS: CEFTRIAXONE 1,000 MG in NA CHLORIDE 0.9% 50 ML IVPB SCH (09:00)
[2023-06-18] MEDS: carvediloL 12.5 MG TAB PO SCH (09:00)
[2023-06-18] MEDS: lisinopriL 20 MG TAB PO SCH (09:00)
[2023-06-18] MEDS: ASCORBIC ACID 500 MG TABLET PO SCH (09:01)
[2023-06-18] MEDS: ASPIRIN 81 MG CHEWABLE TABLET PO SCH (09:01)
[2023-06-18] MEDS: BISACODYL E.C. 5 MG TAB PO SCH (09:01)
[2023-06-18] MEDS: POTASSIUM CL SA 10 MEQ TAB PO SCH (09:01)
[2023-06-18] MEDS: AMLODIPINE 10 MG TAB PO SCH (09:01)
[2023-06-18] MEDS: GABAPENTIN 100 MG CAP PO SCH (09:01)
[2023-06-18 09:26] VITALS: TEMP 98; O2SAT 96
[2023-06-18 11:04] VITALS: BP 149/73
== END 2023-06-18 11:35 | disposition home or self-care (01) | DRG 690 ==
LOC: ER 09:54 → ERHOLD 13:39 → 2ND 16:51
PROVIDERS: ADMIT Internal Medicine; ATTEND Internal Medicine
PROC: 0T9B70Z Drainage of Bladder with Drainage Device, Via Natural or Artificial Opening (ICD-10-PCS; principal; 2023-06-15)
DX: N30.00 Acute cystitis without hematuria (principal); I50.22 Chronic systolic (congestive) heart failure; I11.0 Hypertensive heart disease with heart failure; I48.0 Paroxysmal atrial fibrillation; N40.1 Benign prostatic hyperplasia with lower urinary tract symptoms; N13.8 Other obstructive and reflux uropathy; R33.8 Other retention of urine; E78.5 Hyperlipidemia, unspecified; H91.90 Unspecified hearing loss, unspecified ear; I25.10 Atherosclerotic heart disease of native coronary artery without angina pectoris; I25.2 Old myocardial infarction; K21.9 Gastro-esophageal reflux disease without esophagitis; Z74.01 Bed confinement status; Z95.810 Presence of automatic (implantable) cardiac defibrillator; Z79.82 Long term (current) use of aspirin; Z79.899 Other long term (current) drug therapy; Z88.3 Allergy status to other anti-infective agents; Z88.7 Allergy status to serum and vaccine; Z20.822 Contact with and (suspected) exposure to COVID-19; Z83.3 Family history of diabetes mellitus
CPT/HCPCS: 36415; 51702; 71045; 80053; 80061; 81001; 83036; 83605; 84443; 85025; 85610; 85730; 87040; 87635; 87804; 93005; 94640; 96374; 97116; 97161; 97530; 99285; J0692; J0696; J7030; J7608; J7614

== ENCOUNTER → 2024-01-01 | Emergency (ER) | payer OTHER ==
[2024-01-01 01:47] LABS: Protime INR 1.09
[2024-01-01 01:49] LABS: Absolute Lymphocytes (CBC) 1.2 K/uL (0.7-4.9); Basophils % 0.6 % (0-1.3); Hematocrit 31.5 % (39.6-49.0); Lymphocytes % 21.9 % (15.3-44.8); MCV 88.4 fL (80-100); MPV 7.5 fL (7.6-11.3); Platelets 180 thou/uL (152-406); RBC Red Blood Cell Count 3.56 M/uL (4.33-5.43)
[2024-01-01 02:04] LABS: Albumin/Globulin Ratio 0.9 (1.1-1.8); Anion Gap 8.5 mEq/L (5.0-15.0); Bilirubin Direct 0.1 mg/dL (0-0.2); Bilirubin Indirect, Calculated 0.3 mg/dL (0.2-0.8); Bilirubin Total 0.4 mg/dL (0.2-1.0); Potassium 3.5 mEq/L (3.5-5.1); Protein, Total 6.3 g/dL (6.4-8.2); Troponin High Sensitivity 24.1 pg/mL (<58.9)
--- NOTE | 2024-01-01 03:08 | ER ---
Nurse's Notes [facility] Name: Schuyler Farris Jr Age: 78 yrs Sex: Male : 1945 Arrival Date: 01/01/2024 Time: 00:26 Bed 8 Private MD: Diagnosis: Localized edema;Right arm edema , Post operative right arm edema Presentation: 12/31 00:35 Chief complaint: EMS states: PACEMAKER 3 WKS AGO, SWELLING ON BILATERAL ARMS, rv COMPLAINING OF TIGHTNESS, DENIES PAIN. Coronavirus screen: At this time, the client does not indicate any symptoms associated with coronavirus-19. Ebola Screen: No symptoms or risks identified at this time. Initial Sepsis Screen: Does the patient meet any 2 criteria? No. Patient's initial sepsis screen is negative. Does the patient have a suspected source of infection? No. Patient's initial sepsis screen is negative. Risk Assessment: Do you want to hurt yourself or someone else? Patient reports no desire to harm self or others. Onset of symptoms was January 01, 2024. 00:35 Method Of Arrival: EMS: [facility] rv 00:35 Acuity: JOSE 3 rv Triage Assessment: 00:37 General: Appears comfortable, Behavior is calm, cooperative. Pain: Denies pain. Neuro: rv Level of Consciousness is awake, alert, obeys commands, Oriented to person, place, time, situation. Cardiovascular: Capillary refill < 3 seconds Patient's skin is warm and dry. Respiratory: Airway is patent Respiratory effort is even, unlabored. GI: Abdomen is round non-distended. : No signs and/or symptoms were reported regarding the genitourinary system. Musculoskeletal: Swelling present in right arm and left arm. Historical: - Allergies: 00:37 Bactrim; rv 00:37 Tetanus Vaccines \T\ Toxoid; rv - PMHx: 00:37 Angina; CAD; Hyperlipidemia; CHF; Hypertension; Myocardial infarction; rv pacemaker/defibrilator; - Immunization history:: Adult Immunizations up to date. - Social history:: Smoking status: unknown. - Family history:: not pertinent. Screenin:38 [facility] ED Fall Risk Assessment (Adult) History of falling in the last 3 months, rv including since admission No falls in past 3 months (0 pts) Score/Fall Risk Level 0 - 2 = Low Risk Oriented to surroundings, Maintained a safe environment, Educated pt \T\ family on fall prevention, incl call for assistance when getting out of bed, Assessed \T\ reinforced patient's understanding of fall precautions. Abuse screen: Denies threats or abuse. Denies injuries from another. Nutritional screening: No deficits noted. Tuberculosis screening: No symptoms or risk factors identified. Vital Signs: 01:00 BP 154 / 89; Pulse 64; Resp 16; Temp 98; Pulse Ox 99% on R/A; rv 04:53 BP 177 / 97; Pulse 91; Resp 18; Temp 98; Pulse Ox 99% on R/A; rv [place] Score: 02:59 Eye Response: spontaneous(4). Motor Response: obeys commands(6). Verbal Response: sp4 oriented(5). Total: 15. ED Course: 00:35 Patient arrived in ED. rv 00:37 Triage completed. rv 00:37 Arm band placed on right wrist. rv 00:38 Wilian Mondragon MD is Attending Physician. sp4 00:38 Patient has correct armband on for positive identification. Client placed on continuous rv cardiac and pulse oximetry monitoring. NIBP monitoring applied. 00:38 No provider procedures requiring assistance completed. rv 00:51 XRAY Chest (1 view) In Process Unspecified. EDMS 01:20 Inserted saline lock: 20 gauge in left forearm, using aseptic technique. Blood rv collected. 01:31 UPPER EXTREMITY VENOUS UNILATE In Process Unspecified. EDMS 04:53 IV discontinued, intact, bleeding controlled, No redness/swelling at site. Pressure rv dressing applied. Administered Medications: No medications were administered Medication: 00:38 VIS not applicable for this client. rv Outcome: 03:07 Discharge ordered by . sp4 04:53 Discharged to home via ambulance, rv 04:53 Condition: good 04:53 Discharge instructions given to patient, EMS, Instructed on discharge instructions, follow up and referral plans. Demonstrated understanding of instructions, follow-up care, 04:54 Patient left the ED. rv Signatures: Dispatcher [employer] Thad Buck RN RN Wilian Vickers MD MD sp4
--- NOTE | 2024-01-01 03:08 | EDPHYS ---
Physician Documentation [facility] Name: Schuyler Farris Jr Age: 78 yrs Sex: Male : 1945 Arrival Date: 01/01/2024 Time: 00:26 Bed 8 Private MD: ED Physician Wilian Mondragon HPI: 12/31 00:40 This 78 yrs old Male presents to ER via EMS with complaints of Right arm sp4 swelling painless . 02:59 This is a very pleasant 78-year-old male who is wheelchair-bound who presents with sp4 gradual onset of swelling of the right arm. 3 weeks ago patient had a right chest wall pacemaker placed at [facility]. Since then his right arm became swollen but the swelling is painless. Patient is here for evaluation of the swelling in the right arm. . Historical: - Allergies: 00:37 Bactrim; rv 00:37 Tetanus Vaccines \T\ Toxoid; rv - PMHx: 00:37 Angina; CAD; Hyperlipidemia; CHF; Hypertension; Myocardial infarction; rv pacemaker/defibrilator; - Immunization history:: Adult Immunizations up to date. - Social history:: Smoking status: unknown. - Family history:: not pertinent. ROS: 02:59 Constitutional: Negative for fever, chills, and weight loss, positive painless right sp4 arm swelling 02:59 All other systems are negative, Exam: 02:59 Constitutional: This is a well developed, well nourished patient who is awake, alert, sp4 and in no acute distress. Patient is morbidly obese male who is wheelchair-bound. Signs of physical debility Head/Face: Normocephalic, atraumatic. Eyes: Pupils equal round and reactive to light, extra-ocular motions intact. Lids and lashes normal. Conjunctiva and sclera are not injected. Cornea within normal limits. Periorbital areas with no swelling, redness, or edema. ENT: Nares patent. No nasal discharge, no septal abnormalities noted. Tympanic membranes are normal and external auditory canals are clear. Oropharynx with no redness, swelling, or masses, exudates, or evidence of obstruction, uvula midline. Mucous membranes moist. Neck: Trachea midline, no thyromegaly or masses palpated, and no cervical lymphadenopathy. Supple, full range of motion without nuchal rigidity, or vertebral point tenderness. Chest/axilla: Normal chest wall appearance and motion. Nontender with no deformity. No lesions are appreciated. Cardiovascular: Regular rate and rhythm with a normal S1 and S2. No gallops, murmurs, or rubs. Normal PMI, no JVD. No pulse deficits. Respiratory: Lungs have equal breath sounds bilaterally, clear to auscultation and percussion. No rales, rhonchi or wheezes noted. No increased work of breathing, no retractions or nasal flaring. Abdomen/GI: Soft, with normal bowel sounds. No distension or tympany. No guarding or rebound. No evidence of tenderness throughout. Back: No spinal tenderness. No costovertebral tenderness. Male : Normal genitalia with no discharge or lesions. Patient is incontinent of bladder Skin: Warm, dry with normal turgor. Normal color with no rashes, no lesions, and no evidence of cellulitis. MS/ Extremity: Pulses equal, no cyanosis. Neurovascular intact. Full, normal range of motion. There is moderate swelling of the right arm including forearm and upper arm. Peripheral pulses are intact Neuro: Awake and alert, GCS 15, oriented to person, place, time, and situation. Cranial nerves II-XII grossly intact. Motor strength 5/5 in all extremities. Sensory grossly intact. Psych: Awake, alert, with orientation to person, place and time. Behavior, mood, and affect are within normal limits 02:59 ECG was reviewed by the Attending Physician. EKG time 0 133 electronic ventricular paced rhythm at 62 bpm Vital Signs: 01:00 BP 154 / 89; Pulse 64; Resp 16; Temp 98; Pulse Ox 99% on R/A; rv 04:53 BP 177 / 97; Pulse 91; Resp 18; Temp 98; Pulse Ox 99% on R/A; rv Amity Coma Score: 02:59 Eye Response: spontaneous(4). Motor Response: obeys commands(6). Verbal Response: sp4 oriented(5). Total: 15. MDM: 00:39 Patient medically screened. sp4 02:47 ED course: EXAMINATION: US UPPER EXTREMITYVEINS LIMITED FOLLOW-UP UNILATERAL sp4 INDICATION: Male, 78 years old, Right arm swelling rule out DVT COMPARISON(S): None. TECHNIQUE: Grayscale and color/spectral Doppler ultrasound of the right veins. FINDINGS: Intraluminal echogenic material and lack of compressibility within the basilic vein. There is normal flow and compressibility in the right internal jugular, subclavian, axillary, brachial, cephalic, and radial veins. No intraluminal thrombus is visualized. Visualized waveforms demonstrate normal respiratory variability. IMPRESSION: Occlusive appearing thrombus in the right basilic vein. No DVT in the imaged right upper extremity. . 02:50 ED course: EXAM: XR Chest, 1 View CLINICAL HISTORY: R arm swelling TECHNIQUE: Frontal sp4 view of the chest. COMPARISON: XR Chest dated 01/28/2023 FINDINGS: Lungs: Unremarkable. No consolidation. Pleural space: Unremarkable. No pneumothorax. Heart: The cardiac silhouette is enlarged, stable, in part accentuated by portable technique. Mediastinum: Unremarkable. Normal mediastinal contour. Bones/joints: Bilateral mid to lower thoracic posterior fusion hardware. No acute fracture. Vasculature: Thoracic aortic atherosclerosis. Tubes, lines and devices: Right chest wall dual-lead pacer/ICD remains in place. IMPRESSION: No acute disease. . 03:05 Differential Diagnosis altered mental status, sepsis, flu, DVT right upper arm. Data sp4 reviewed: vital signs, nurses notes, EMS record, lab test result(s), EKG, radiologic studies, CT scan, doppler. Consideration of Admission/Observation Escalation of care including admission/observation considered. ED course: Patient has normal flow in the deep veins in the right arm including jugular, subclavian, axillary, brachial, cephalic and radial veins. In the occlusion of the right basilic vein is not dangerous. Patient stable for discharge home and was advised to take his regular medicines. . 03 00:38 Order name: Basic Metabolic Panel; Complete Time: 02:47 sp4 12/31 00:38 Order name: CBC with Diff; Complete Time: 02:47 sp4 12/31 00:38 Order name: LFT's; Complete Time: 02:47 sp4 12/31 00:38 Order name: NT PRO-BNP; Complete Time: 02:47 sp4 12/31 00:38 Order name: PT-INR; Complete Time: 02:47 sp4 12/31 00:38 Order name: Troponin HS; Complete Time: 02:47 sp4 12/31 00:38 Order name: XRAY Chest (1 view) sp4 12/31 01:31 Order name: UPPER EXTREMITY VENOUS UNILATE EDMS 03/07 00:38 Order name: EKG; Complete Time: 00:39 sp4 12/31 00:38 Order name: Cardiac monitoring; Complete Time: sp4 12/31 00:38 Order name: EKG - Nurse/Tech; Complete Time: sp4 12/31 00:38 Order name: IV Saline Lock; Complete Time: sp4 12/31 00:38 Order name: Labs collected and sent; Complete Time: sp4 12/31 00:38 Order name: O2 Per Protocol; Complete Time: sp4 12/31 00:38 Order name: O2 Sat Monitoring; Complete Time: sp4 EC:59 Rate is 62 beats/min. Rhythm is regular, Paced. Interpreted by me. Reviewed by me. sp4 Administered Medications: No medications were administered Disposition Summary: 01/01/24 03:07 Discharge Ordered Problem: new sp4 Condition: Stable sp4 Diagnosis - Localized edema sp4 - Right arm edema , Post operative right arm edema sp4 Followup: sp4 - With: Private Physician - When: 7 - 10 days - Reason: Recheck today's complaints Discharge Instructions: - Discharge Summary Sheet sp4 - Edema, [id number] sp4 Forms: - SBAR form wm - Patient Portal Instructions sp4 Signatures: Dispatcher [employer] Thad Buck, RN RN Wilian Vickers MD MD sp4 Corrections: (The following items were deleted from the chart) 01:31 00:40 Extremity Venous [employer]+[email or web address] ordered. YOVANIIL YOVANIIL
[2024-01-01 05:15] VITALS: BP 177/97; TEMP 98; O2SAT 99
--- NOTE | 2024-01-01 13:16 | RAD REPORT ---
EXAM DESCRIPTION: RAD - Chest Single View - 01/01/2024 12:50 am CLINICAL HISTORY: R arm swelling TECHNIQUE: Frontal view of the chest. COMPARISON: XR Chest dated 01/28/2023 FINDINGS: Lungs: Unremarkable. No consolidation. Pleural space: Unremarkable. No pneumothorax. Heart: The cardiac silhouette is enlarged, stable, in part accentuated by portable technique. Mediastinum: Unremarkable. Normal mediastinal contour. Bones/joints: Bilateral mid to lower thoracic posterior fusion hardware. No acute fracture. Vasculature: Thoracic aortic atherosclerosis. Tubes, lines and devices: Right chest wall dual-lead pacer/ICD remains in place. IMPRESSION: No acute disease. Electronically signed by: Abel Guerrero MD 01/01/2024 01:12 AM MACHINE MAINTENANCE TECHNICIAN Due to temporary technical issues with the PACS/Fluency reporting system, reports are being signed by the in house radiologists without review as a courtesy to insure prompt reporting. The interpreting radiologist is fully responsible for the content of the report.
--- NOTE | 2024-01-01 13:40 | RAD REPORT ---
EXAM DESCRIPTION: US - UPPER EXTREMITY VENOUS UNILATE - 01/01/2024 1:30 am CLINICAL HISTORY: Male, 78 years old, Right arm swelling rule out DVT COMPARISON: None. TECHNIQUE: Grayscale and color/spectral Doppler ultrasound of the right veins. FINDINGS: Intraluminal echogenic material and lack of compressibility within the basilic vein. There is normal flow and compressibility in the right internal jugular, subclavian, axillary, brachia l, cephalic, and radial veins. No intraluminal thrombus is visualized. Visualized waveforms demonstra te normal respiratory variability. IMPRESSION: Occlusive appearing thrombus in the right basilic vein. No DVT in the imaged right upper extremity. Electronically signed by: Sly Bhatt MD 01/01/2024 02:09 AM [employer] MANAGER Due to temporary technical issues with the PACS/Fluency reporting system, reports are being signed by the in house radiologists without review as a courtesy to insure prompt reporting. The interpreting radiologist is fully responsible for the content of the report.
--- NOTE | 2024-01-01 14:13 | EKG ---
Test Date: 2024-01-01 Test Time: 01:33:51 Stock Car Driver: DEA MEASUREMENT RESULTS: Intervals: Rate: 62 AL: 188 QRSD: 188 QT: 480 QTc: 487 [place]: P: 2 AL: 188 QRS: 186 T: 19 INTERPRETIVE STATEMENTS: Electronic ventricular pacemaker Compared to ECG 06/15/2023 10:17:09 No significant changes Electronically Signed On 01-01-24 14:12:29 TOBACCO SHAKER by Lg Silvestre
== END ==
LOC: ER 00:26
DX: R60.0 Localized edema (principal); Z95.810 Presence of automatic (implantable) cardiac defibrillator; I10 Essential (primary) hypertension; I50.9 Heart failure, unspecified; Z88.1 Allergy status to other antibiotic agents; Z88.7 Allergy status to serum and vaccine
CPT/HCPCS: 36415; 71045; 80048; 80076; 83880; 84484; 85025; 85610; 93005; 93971; 99284